=== PATIENT | female | born 1950 | race American Indian/Alaskan Native ===

== ENCOUNTER → 2018-07-23 17:12 | Outpatient (REF) | payer OTHER, SELFPAY ==
[2018-07-23 21:15] LABS: Abs Immature Grans 0.03 k/cumm (0.0-0.09); Absolute Basophil Count 0.03 k/cumm (0.0-0.2); Absolute Eosinophil Count 0.24 k/cumm (0.0-0.7); Absolute Lymphocyte Count 3.49 k/cumm (1.2-3.4); Absolute Monocyte Count 1.24 k/cumm (0.11-0.7); Basophils % 0.2; Eosinophils % 1.9; HCT 37.8 % (36.0-46.0); HGB 12.8 g/dL (12.0-15.5); Immature Grans % 0.2; Lymphocytes % 27.2; Mean Corp. HGB Concentration 33.9 g/dL (32.0-36.0); Mean Corpuscular Hemoglobin 33.6 pg (27.0-33.0); Mean Corpuscular Volume 99.2 fL (80-95); Mean Platelet Volume 10.4 fL (8.0-11.0); Monocytes % 9.7; Neutrophils % 60.8; Platelet Count 291 x1000/uL (130-400); RBC 3.81 m/cumm (4.00-5.20); RBC Distribution Width 13.1 % (11.7-14.6); White Blood Cell Count 12.83 k/cumm (4.4-10.8)
== END ==
LOC: NCHCN 17:12
PROVIDERS: PCP Physician Assistant Medical; Visit Provider Physician Assistant Medical
DX: D64.9 Anemia, unspecified (principal)
CPT/HCPCS: 85025

== ENCOUNTER 2019-01-10 18:40 | Outpatient (REF) | payer OTHER, SELFPAY ==
[2019-01-10 21:21] LABS: Abs Immature Grans 0.02 k/cumm (0.0-0.09); Absolute Basophil Count 0.03 k/cumm (0.0-0.2); Absolute Eosinophil Count 0.28 k/cumm (0.0-0.7); Absolute Lymphocyte Count 2.75 k/cumm (1.2-3.4); Absolute Monocyte Count 0.81 k/cumm (0.11-0.7); Absolute Neutrophil Count 4.48 k/cumm (1.2-6.7); Basophils % 0.4; Eosinophils % 3.3; HCT 39.1 % (36.0-46.0); HGB 12.8 g/dL (12.0-15.5); Immature Grans % 0.2; Lymphocytes % 32.9; Mean Corp. HGB Concentration 32.7 g/dL (32.0-36.0); Mean Corpuscular Hemoglobin 33.4 pg (27.0-33.0); Mean Corpuscular Volume 102.1 fL (80-95); Mean Platelet Volume 10.3 fL (8.0-11.0); Monocytes % 9.7; Neutrophils % 53.5; Platelet Count 294 x1000/uL (130-400); RBC 3.83 m/cumm (4.00-5.20); RBC Distribution Width 12.4 % (11.7-14.6); White Blood Cell Count 8.37 k/cumm (4.4-10.8)
[2019-01-10 21:47] LABS: ALT 22 U/L (12-78); Anion Gap 10.1 mmol/L (3-11); BUN 18 mg/dL (7-18); CO2 27.9 mmol/L (21.0-32.0); CREATININE 1.15 mg/dL (0.55-1.02); Calcium 9.8 mg/dL (8.5-10.1); Chloride 103 mmol/L (98-107); Estimated GFR 46.65 (mL/min/1.73m2); Glucose 94 mg/dL (70-100); HDL Cholesterol 61 mg/dL (40-60); LDL CHOLESTEROL 96 mg/dL (<100); Potassium 4.1 mmol/L (3.5-5.1); Sodium 141 mmol/L (136-145); TSH 2.63 uIU/mL (0.358-3.74)
[2019-01-10 22:02] LABS: Creatine Kinase 91 U/L (26-192)
== END 2019-01-10 19:00 ==
LOC: NCHCN 18:40
PROVIDERS: PCP Physician Assistant Medical; Visit Provider Nurse Practitioner Family
DX: E03.9 Hypothyroidism, unspecified (principal); E78.5 Hyperlipidemia, unspecified; I73.9 Peripheral vascular disease, unspecified
CPT/HCPCS: 80048; 82550; 83721; 83718; 84443; 84460; 85025

== ENCOUNTER 2019-01-29 01:12 | Outpatient (CLI) | payer OTHER, SELFPAY ==
--- NOTE | 2019-01-29 11:21 | DI.CTLCSR_ITS ---
SYMPTOM/DIAGNOSIS: SCREENING, FORMER SMOKER, Z12.[address]: There are no prior comparison exams. Mild underlying emphysematous and fibrotic changes are seen. There is linear atelectasis in the right middle lobe. No pulmonary nodules, infiltrates or effusions are seen. There is mitral valve calcification, aortic calcification as well as coronary artery calcification. The aorta is normal in diameter. The heart size is normal. No adenopathy is seen. There are left upper rib deformities. No suspicious bony abnormalities are seen. The visualized portions of the upper abdomen show previous cholecystectomy. There is suture material near the fundus of the stomach. IMPRESSION: Lung rads, Category 1. Continued annual low dose screening CT is recommended.
== END 2019-01-29 01:32 ==
PROVIDERS: PCP Nurse Practitioner Family; Visit Provider Nurse Practitioner Family
DX: Z12.2 Encounter for screening for malignant neoplasm of respiratory organs (principal); J98.11 Atelectasis; Z87.891 Personal history of nicotine dependence
CPT/HCPCS: G0297

== ENCOUNTER 2019-02-04 03:09 | Outpatient (CLI) | payer OTHER, SELFPAY ==
[2019-02-04] MEDS: Albuterol HFA 18 GM 200 PUFF INH IH (15:00)
[2019-02-04] MEDS: Inhaler, Assist Device 1 EACH MC (15:00)
--- NOTE | 2019-02-04 15:00 | PFT_ITS ---
DATE OF SERVICE: 02/04/19 REQUESTING PROVIDER: Vanita Churchill N.P. Spirometry shows mild obstructive airways disease with no significant bronchodilator response. Lung volumes show no evidence of restriction. Diffusion capacity normal. Airways resistance normal. IMPRESSION: Mild obstructive airways disease with no significant bronchodilator response. Clinical correlation recommended.
== END 2019-02-04 03:29 ==
PROVIDERS: PCP Nurse Practitioner Family; Visit Provider Nurse Practitioner Family
DX: J44.9 Chronic obstructive pulmonary disease, unspecified (principal)
CPT/HCPCS: 94060; 94150; 94726; 94729

== ENCOUNTER 2019-04-02 11:16 | Outpatient (CLI) | payer OTHER, SELFPAY ==
--- NOTE | 2019-04-02 12:10 | DI.MAMMO_ITS ---
SYMPTOM/DIAGNOSIS: SCREENING, Z12.39 MAMMOGRAMS: Mammograms were interpreted according to the usual protocol including computer analysis with CAD system, tomosynthesis and C view imaging. Comparison is with the prior examinations. No suspicious masses or microcalcifications are seen. There is no definite evidence of malignancy. IMPRESSION: Negative mammogram. Routine screening is recommended. Category 1, breast density B. MQSA ASSESSMENT OF FINDINGS: Negative. Category 1. Patient will receive a letter notifying them of these results. BI-RADS category B. There are scattered areas of fibroglandular density.
== END 2019-04-02 11:36 ==
PROVIDERS: PCP Nurse Practitioner Family; Visit Provider Nurse Practitioner Family
DX: Z12.31 Encounter for screening mammogram for malignant neoplasm of breast (principal)
CPT/HCPCS: 77063; 77067

== ENCOUNTER 2019-06-18 11:57 | Outpatient (REF) | payer OTHER, SELFPAY ==
[2019-06-18 22:04] LABS: ALT 33 U/L (12-78); AST 18 U/L (15-37); HDL Cholesterol 65 mg/dL (40-60); LDL CHOLESTEROL 65 mg/dL (<100)
[2019-06-18 22:17] LABS: Creatine Kinase 68 U/L (26-192)
== END 2019-06-18 12:17 ==
LOC: NCHCN 11:57
PROVIDERS: PCP Nurse Practitioner Family; Visit Provider Nurse Practitioner Family
DX: I65.23 Occlusion and stenosis of bilateral carotid arteries (principal); E78.5 Hyperlipidemia, unspecified
CPT/HCPCS: 82550; 83721; 83718; 84450; 84460

== ENCOUNTER 2019-10-15 14:45 | Outpatient (REF) | payer OTHER, SELFPAY ==
[2019-10-15 20:12] LABS: Abs Immature Grans 0.02 k/cumm (0.0-0.09); Absolute Basophil Count 0.02 k/cumm (0.0-0.2); Absolute Eosinophil Count 0.33 k/cumm (0.0-0.7); Absolute Lymphocyte Count 3.15 k/cumm (1.2-3.4); Absolute Monocyte Count 0.95 k/cumm (0.11-0.7); Basophils % 0.2; Eosinophils % 3.2; HCT 38.7 % (36.0-46.0); HGB 13.1 g/dL (12.0-15.5); Immature Grans % 0.2; Lymphocytes % 30.4; Mean Corp. HGB Concentration 33.9 g/dL (32.0-36.0); Mean Corpuscular Hemoglobin 33.4 pg (27.0-33.0); Mean Corpuscular Volume 98.7 fL (80-95); Mean Platelet Volume 10.2 fL (8.0-11.0); Monocytes % 9.2; Neutrophils % 56.8; Platelet Count 317 x1000/uL (130-400); RBC 3.92 m/cumm (4.00-5.20); RBC Distribution Width 12.3 % (11.7-14.6); White Blood Cell Count 10.37 k/cumm (4.4-10.8)
[2019-10-15 20:29] LABS: ALT 30 U/L (14-59); AST 20 U/L (15-37); Alkaline Phosphatase 70 U/L (46-116); Anion Gap 9.2 mmol/L (3-11); BUN 19 mg/dL (7-18); Bilirubin, Total 0.2 mg/dL (0.2-1.0); CO2 27.8 mmol/L (21.0-32.0); CREATININE 0.96 mg/dL (0.55-1.02); Calcium 9.2 mg/dL (8.5-10.1); Chloride 104 mmol/L (98-107); Estimated GFR 57.46 (mL/min/1.73m2); Glucose 115 mg/dL (74-106); Lipase 139 U/L (73-393); Potassium 4.3 mmol/L (3.5-5.1); Sodium 141 mmol/L (136-145); Total Protein 7.1 g/dL (6.4-8.2)
== END 2019-10-15 15:05 ==
LOC: NCHCN 14:45
PROVIDERS: PCP Nurse Practitioner Family; Visit Provider Nurse Practitioner Family
DX: R11.0 Nausea (principal); R10.9 Unspecified abdominal pain; R14.0 Abdominal distension (gaseous)
CPT/HCPCS: 80053; 83690; 85025

== ENCOUNTER 2019-10-16 07:53 | Outpatient (REF) | payer OTHER, SELFPAY ==
[2019-10-17 15:37] LABS: Helicobacter pylori Ag, Feces Negative (Negative)
== END 2019-10-16 08:13 ==
LOC: NCHCN 07:53
PROVIDERS: PCP Nurse Practitioner Family; Visit Provider Nurse Practitioner Family
DX: R14.0 Abdominal distension (gaseous) (principal); R10.9 Unspecified abdominal pain; R11.0 Nausea
CPT/HCPCS: 87338

== ENCOUNTER 2020-01-21 08:27 | Outpatient (REF) | payer OTHER, SELFPAY ==
[2020-01-21 19:46] LABS: TSH 1.82 uIU/mL (0.36-3.74)
== END 2020-01-21 08:47 ==
LOC: NCHCN 08:27
PROVIDERS: PCP Nurse Practitioner Family; Visit Provider Nurse Practitioner Family
DX: E03.9 Hypothyroidism, unspecified (principal)
CPT/HCPCS: 84443

== ENCOUNTER 2020-02-26 11:33 | Outpatient (CLI) | payer OTHER, SELFPAY ==
[2020-02-29 10:20] LABS: SARS-CoV-2 RNA Undetected (Undetected); SARS-CoV-2 Specimen Source Nasopharynx
== END 2020-02-26 11:53 ==
PROVIDERS: PCP Nurse Practitioner Family; Visit Provider Physician Assistant
DX: J06.9 Acute upper respiratory infection, unspecified (principal)
CPT/HCPCS: U0003

== ENCOUNTER 2020-05-07 11:22 | Outpatient (REF) | payer OTHER, SELFPAY ==
[2020-05-07 19:41] LABS: HCT 38.1 % (36.0-46.0); Mean Corp. HGB Concentration 34.1 g/dL (32.0-36.0); Mean Corpuscular Hemoglobin 33.7 pg (27.0-33.0); Mean Corpuscular Volume 98.7 fL (80-95); Mean Platelet Volume 10.1 fL (8.0-11.0); Platelet Count 296 x1000/uL (130-400); RBC 3.86 m/cumm (4.00-5.20); RBC Distribution Width 12.2 % (11.7-14.6); White Blood Cell Count 10.14 k/cumm (4.4-10.8)
[2020-05-07 20:20] LABS: ALT 35 U/L (14-59); AST 24 U/L (15-37); Alkaline Phosphatase 75 U/L (46-116); Anion Gap 8.7 mmol/L (3-11); BUN 21 mg/dL (7-18); Bilirubin, Total 0.5 mg/dL (0.2-1.0); CO2 27.3 mmol/L (21.0-32.0); CREATININE 1.16 mg/dL (0.55-1.02); Calcium 9.2 mg/dL (8.5-10.1); Chloride 104 mmol/L (98-107); Estimated GFR 46.05 (mL/min/1.73m2); Glucose 85 mg/dL (74-106); HDL Cholesterol 59 mg/dL (40-60); LDL CHOLESTEROL 68 mg/dL (<100); Potassium 4.5 mmol/L (3.5-5.1); Sodium 140 mmol/L (136-145); Total Protein 7.1 g/dL (6.4-8.2)
[2020-05-07 20:43] LABS: Creatine Kinase 59 U/L (26-192)
== END 2020-05-07 11:42 ==
LOC: NCHCN 11:22
PROVIDERS: PCP Nurse Practitioner Family; Visit Provider Nurse Practitioner Family
DX: E78.5 Hyperlipidemia, unspecified (principal); D64.9 Anemia, unspecified; I10 Essential (primary) hypertension
CPT/HCPCS: 80053; 82550; 83721; 85027; 83718

== ENCOUNTER 2020-05-12 00:18 | Outpatient (CLI) | payer OTHER, SELFPAY ==
--- NOTE | 2020-05-12 | DI.MRI_ITS ---
EXAM: MR LUMBAR SPINE WO CLINICAL HISTORY: WORSENING LUMBAR PAIN,M54.9 WITH RADICULOPATHY DOWN RT UPPER THIGH. TECHNIQUE: Multiplanar multisequence MRI of the Lumbar spine was performed. COMPARISON: CR CHEST 2 VIEWS PA,LAT from 03/21/2018 FINDINGS: Bones: The last intervertebral disc space is designated the L5/S1 level for the numbering purpose of this examination. The vertebral body heights are well maintained. Alignment is satisfactory. There is some red marrow reconversion. Cord: The conus tip ends at the T12 level. It is of normal size and signal intensity. T12-L1: No disc herniations or bulges are present. No central spinal canal or neural foraminal stenos is. L1-2: No disc herniations or bulges are present. No central spinal canal or neural foraminal stenosis . L2-3: No disc herniations or bulges are present. There are facet degenerative changes but no central spinal canal or neural foraminal stenosis. L3-4: There are broad-based disc osteophytes and degenerative signal changes in the endplates. There are facet degenerative changes which combine with the degenerative disc changes to create mild to mo derate degree of central canal stenosis and moderate bilateral neural foraminal narrowing. L4-5: There is marked loss of disc height and prominent disc osteophytes. There are facet degenerati ve changes and ligamentous hypertrophy creating a moderate degree of central canal stenosis and moder ate bilateral neural foraminal narrowing. L5-S1: Moderate to severe loss of disc height, eccentric toward the right. There are disc osteophyte s eccentric toward the right causing severe right neural foraminal narrowing and moderate left neural foraminal narrowing. There are facet degenerative changes and ligamentous hypertrophy causing mild central canal stenosis.. No central spinal canal or neural foraminal stenosis. Soft tissues: The visualized SI joints and sacrum are well maintained. The paraspinal soft tissues ar e unremarkable. Sigmoid diverticulosis and renal cysts are noted. IMPRESSION: Degenerative disc changes and facet degenerative changes from L3-4 through L5-S1. No focal disc kolby iation. DATA REPOSITORY:
== END 2020-05-12 00:38 ==
PROVIDERS: PCP Nurse Practitioner Family; Visit Provider Nurse Practitioner Family
DX: M54.16 Radiculopathy, lumbar region (principal); M79.651 Pain in right thigh; M51.17 Intervertebral disc disorders with radiculopathy, lumbosacral region; M47.27 Other spondylosis with radiculopathy, lumbosacral region
CPT/HCPCS: 72148

== ENCOUNTER 2020-06-09 10:38 | Outpatient (REF) | payer OTHER, SELFPAY ==
[2020-06-09 20:40] LABS: Ferritin 175 ng/mL (8-252); Vitamin B12 750 pg/mL (193-986)
[2020-06-09 20:41] LABS: Folate > 20.0 ng/mL (8.6-20.0)
[2020-06-09 20:50] LABS: Iron 120 ug/dL (50-170); Total Iron Binding Capacity 263 ug/dL (250-450); Transferrin Sat 46 % (15-50)
== END 2020-06-09 10:58 ==
LOC: NCHCN 10:38
PROVIDERS: PCP Nurse Practitioner Family; Visit Provider Nurse Practitioner Family
DX: D64.9 Anemia, unspecified (principal)
CPT/HCPCS: 82607; 82728; 82746; 83540; 83550

== ENCOUNTER 2020-07-14 01:05 | Outpatient (CLI) | payer OTHER, SELFPAY ==
--- NOTE | 2020-07-14 | DI.MAMMO_ITS ---
EXAM: MAMMO SCREENING CLINICAL HISTORY: SCREENING, Z12.39 TECHNIQUE: Mammograms were interpreted according to the usual protocol including computer analysis w [employer] CAD system, tomosynthesis and C-view imaging. COMPARISON: 2010 through 2019. FINDINGS: The breasts are composed of scattered fibroglandular densities, Breast Density category B. No suspicious masses or suspicious microcalcifications are seen. Vascular calcifications and coarse, benign calcifications are again noted. No skin thickening or abnormal axillary lymph nodes are seen. There has been no significant change from prior exams. IMPRESSION: BI-RADS Category 2 - Benign Findings Yearly screening mammography is recommended. Breast Density Category B, scattered fibroglandular densities. A negative radiographic report should not delay biopsy if a dominant or clinically suspicious mass is present. Up to ten percent of cancers are not identified on mammography. A negative report may reinforce clinical impression. Adenosis and dense breasts may obscure an underlying neoplasm. False positive reports average 6 to 10%. Patient will receive a letter notifying them of these results.
== END 2020-07-14 01:25 ==
PROVIDERS: PCP Nurse Practitioner Family; Visit Provider Nurse Practitioner Family
DX: Z12.31 Encounter for screening mammogram for malignant neoplasm of breast (principal); R92.1 Mammographic calcification found on diagnostic imaging of breast
CPT/HCPCS: 77063; 77067

== ENCOUNTER 2020-09-09 13:04 | Outpatient (REF) | payer OTHER, SELFPAY ==
[2020-09-11 17:48] LABS: COVID-19 RT-PCR Result NEGATIVE (Negative)
== END 2020-09-09 13:24 ==
LOC: NCHCN 13:04
PROVIDERS: PCP Nurse Practitioner Family; Visit Provider Nurse Practitioner Family
DX: J02.9 Acute pharyngitis, unspecified (principal); R05 Cough
CPT/HCPCS: U0003; 87081

== ENCOUNTER 2020-09-11 11:49 | Emergency (ER) | payer OTHER, SELFPAY ==
[2020-09-11] VITALS (26 sets, daily range): BP systolic 162–185; BP diastolic 70–96; PULSE 89–102; RESP 18–22; TEMP 36.5; O2SAT 93–100
[2020-09-11] MEDS: Normal Saline 1,000 ML 1000 ML IV (12:19)
[2020-09-11] MEDS: Normal Saline Flush 10 ML SYR IVP (12:20)
[2020-09-11 12:27] LABS: Abs Immature Grans 0.08 10^3/uL (0.0-0.06); Absolute Basophil Count 0.02 10^3/uL (0.0-0.2); Absolute Eosinophil Count 0.02 10^3/uL (0.0-0.7); Absolute Lymphocyte Count 1.56 10^3/uL (1.2-3.4); Absolute Monocyte Count 0.36 10^3/uL (0.1-0.8); Absolute Neutrophil Count 10.37 10^3/uL (1.2-6.7); Basophils % 0.2; Eosinophils % 0.2; HCT 40.6 % (36.0-46.0); HGB 13.9 g/dL (11.2-15.7); Immature Grans % 0.6; Lymphocytes % 12.6; MCH 32.6 pg (27.0-33.0); MCHC 34.2 % (32.0-36.0); MCV 95.3 fL (80-95); MPV 9.3 fL (8.0-11.0); Monocytes % 2.9; Neutrophils % 83.5; Nucleated RBC 0 %; Platelet Count 278 10^3/uL (130-400); RBC 4.26 10^6/uL (3.93-5.22); RDW 11.9 % (11.7-14.6); RDW-SD 41.4 fL; WBC 12.42 10^3/uL (4.4-10.8)
--- NOTE | 2020-09-11 12:30 | DI.RAD_ITS ---
EXAM: XR PORTABLE CHEST AP CLINICAL HISTORY: cough TECHNIQUE: 2D digital imaging was performed. COMPARISON: CR CHEST 2 VIEWS PA,LAT from 03/21/2018 FINDINGS: MEDIASTINUM: Normal. HEART: Normal. PULMONARY VASCULATURE: Normal. LUNGS: No focal consolidating infiltrates. Diffuse increased interstitial markings. These may refle ct diffuse chronic fibrosis. Interstitial edema or pneumonia cannot be excluded. PLEURAL SPACE: No pleural effusion or pneumothorax. BONE:Within normal limits for the patient's age. OTHER FINDINGS:Normal. IMPRESSION: Diffuse increased interstitial markings. This may be chronic fibrotic change. An acute interstitial edema or pneumonia cannot be excluded. Please correlate clinically. DATA REPOSITORY: RADIATION DOSE DELIVERED:
[2020-09-11 12:40] LABS: ALT 25 U/L (14-59); AST 23 U/L (15-37); Alkaline Phosphatase 83 U/L (46-116); BUN 13 mg/dL (7-18); Bilirubin, Total 0.7 mg/dL (0.2-1.0); Calcium 9.1 mg/dL (8.5-10.1); Chloride 100 mmol/L (98-107); Glucose 134 mg/dL (74-106); Lipase 73 U/L (73-393); Sodium 135 mmol/L (136-145)
[2020-09-11 13:07] LABS: Bilirubin Negative (Negative); Blood Small (Negative); Clarity Cloudy (Clear); Glucose Negative (Negative); Ketones Negative (Negative); Leukocyte Esterase Negative (Negative); Nitrite Negative (Negative); Specific Gravity 1.025 (1.005-1.025); Urobilinogen 0.2 EU/dL (Up TO 0.2)
[2020-09-11 13:23] LABS: Bacteria Few HPF (Negative); C & S Indicated? No; Crystals Few Amorphous HPF (Negative); Epithelial Cells Few HPF (Negative); Mucus Trace (Negative); RBC 0-2 HPF (0-2); WBC 0-2 HPF (0-5)
--- NOTE | 2020-09-11 14:01 | ED.GENADUL_ITS ---
Discharge Plan Disposition Patient Disposition: HOME Condition: Stable Discharge Details Clinical Impression: Pneumonia Primary Care Provider: Vanita Churchill ED Provider: Cricket Jolley Home Meds and New Rx's Prescriptions: New ondansetron HCl [Zofran] 4 mg tablet 4 mg PO Q8H PRNQty: 10 RF: 0 levofloxacin 750 mg tablet 750 mg PO DAILY Qty: 5 RF: 0 Continued bupropion HCl [Wellbutrin SR] 150 mg Tablet Sustained-Release 12 Hr 150 mg PO QAM RF: 0 citalopram [Celexa] 40 mg Tablet 40 mg PO DAILY RF: 0 ziprasidone HCl [Geodon] 20 mg Capsule 20 mg PO BID RF: 0 hydrocortisone 1 % Cream 1 applic TOPICAL BID PRNRF: 0 levothyroxine 50 mcg Tablet 50 mcg PO DAILY RF: 0 diphenhydramine HCl [Benadryl] 25 mg Capsule 25 mg PO TID PRNRF: 0 ferrous sulfate [iron] 325 mg (65 mg iron) Tablet 325 mg PO DAILY RF: 0 (DME) nebulizers Misc MISCELLANEOUS RF: 0 hydrochlorothiazide 25 mg Tablet 12.5 mg PO DAILY RF: 0 nystatin 100,000 unit/gram Powder 1 applic TOPICAL TID RF: 0 ezetimibe [Zetia] 10 mg Tablet 10 mg PO DAILY RF: 0 rosuvastatin 20 mg Tablet 20 mg PO HS RF: 0 Zyrtec 10 mg Capsule 10 mg PO DAILY RF: 0 diclofenac sodium 1 % gel 4 gm TP QID PRN (Reason: left hip pain) 6 Days Qty: 100 RF: 11 gabapentin 300 mg capsule 300 mg PO TID 90 Days Qty: 270 RF: 3 multivitamin [Daily Multi-Vitamin] 1 EACH tablet 1 tab PO DAILY RF: 0 aspirin 325 MG tablet 325 mg PO DAILY RF: 0 calcium carbonate-vitamin D3 1 EACH tablet 2 tab PO DAILY RF: 0 Refresh Tears 30 ML drops 2 drp OU BID RF: 0 nystatin 15 GM cream 1 ea Topical TID RF: 0 albuterol sulfate [Ventolin HFA] 200 PUFF HFA aerosol inhaler 2 puff Inhalation Q6H RF: 0 cholecalciferol (vitamin D3) [Vitamin D3] 400 UNIT tablet 1 tab PO DAILY RF: 0 folic acid 0.8 MG tablet 0.8 mg PO DAILY RF: 0 Flovent HFA 120 PUFF HFA aerosol inhaler 1 puff Inhalation BID RF: 0 acetaminophen 325 mg Tablet 650 mg PO PRN PRNRF: 0 benzonatate [Tessalon Perles] 100 mg capsule 100 mg PO TID PRNRF: 0 guaifenesin [Mucinex] 600 mg Tablet Extended Release 12hr 600 mg PO Q12H PRNRF: 0 Discharge Instructions Instructions: Pneumonia (ED) Additional Instructions: Levaquin and Zofran as directed. Plenty of fluids to avoid dehydration. [id number] medications as directed for symptomatic control. Please watch for new or worsening symptoms and return to the ER for any concerns. Please continue to quarantine until your Covid test has returned negative. I do recommend reaching out to your primary care provider later today or tomorrow for prompt outpatient reevaluation. Medical Decision Making 69-year-old female history of emphysema, former smoker, hypertension, arthritis, presents to the ER for dry cough, general fatigue, now starting with nausea, vomiting, concern of dehydration. Clinically she appears well, nontoxic. Is taking Tessalon Perles with minimal relief. Covid test pending. O2 sat 100% on room air. She is afebrile. Respirations 18. Given her age, comorbidities will obtain routine laboratory values, chest x-ray, give IV fluid and Zofran. Lungs are clear to auscultation although slightly diminished bases, no clear indication for breathing treatments. Laboratory values reveal a white blood cell count of 12.42 sodium 135 potassium 4.0, glucose 134. Urinalysis without signs of infection. X-ray read by radiology as diffuse increased interstitial markings. This may be chronic fibrotic change. An acute interstitial edema or pneumonia cannot be excluded. Please correlate clinically. Clinically with a cough for roughly 1 week, fatigue, now with nausea and vomiting, slightly elevated white count, I do believe that pneumonia is reasonable. Lower suspicion for acute interstitial edema. Discussed findings with patient and treatment options. She is agreeable to initiate antibiotic therapy and I will provide a antiemetic prescription. She has no additional questions or concerns and is comfortable with this plan. We did discuss the importance of returning to the ER for new or worsening symptoms, otherwise following up as an outpatient with her primary care provider. Covid test is still pending, will continue to quarantine Medical Records Medical records reviewed: Yes I reviewed the patient's medical records. Lab Data Lab results reviewed: Yes I reviewed the patient's lab results. Lab results narrative: Laboratory Tests Range/Units 09/11/20 09/11/20 09/11/20 12:05 12:05 12:55 WBC (4.4-10.8) 10^3/uL 12.42 H RBC (3.93-5.22) 10^6/uL 4.26 Hgb (11.2-15.7) g/dL 13.9 Hct (36.0-46.0) % 40.6 MCV (80-95) fL 95.3 H MCH (27.0-33.0) pg 32.6 MCHC (32.0-36.0) % 34.2 RDW (11.7-14.6) % 11.9 Plt Count (130-400) 10^3/uL 278 MPV (8.0-11.0) fL 9.3 Immature Gran % 0.6 Neutrophils % 83.5 Lymphocytes % 12.6 Monocytes % 2.9 Eosinophils % 0.2 Basophils % 0.2 Nucleated RBC % % 0 Absolute Neutrophils (1.2-6.7) 10^3/uL 10.37 H Absolute Lymphocytes (1.2-3.4) 10^3/uL 1.56 Absolute Monocytes (0.1-0.8) 10^3/uL 0.36 Absolute Eosinophils (0.0-0.7) 10^3/uL 0.02 Absolute Basophils (0.0-0.2) 10^3/uL 0.02 Sodium (136-145) mmol/L 135 L Potassium (3.5-5.1) mmol/L 4.0 Chloride (98-107) mmol/L 100 Carbon Dioxide (21.0-32.0) mmol/L 27.0 Anion Gap (3-11) mmol/L 8.0 BUN (7-18) mg/dL 13 Creatinine (0.55-1.02) mg/dL 0.90 Estimated GFR/1.73 m2 (mL/min/1.73m2) >= 60.00 Glucose (74-106) mg/dL 134 H Calcium (8.5-10.1) mg/dL 9.1 Total Bilirubin (0.2-1.0) mg/dL 0.7 AST (15-37) U/L 23 ALT (14-59) U/L 25 Alkaline Phosphatase (46-116) U/L 83 Total Protein (6.4-8.2) g/dL 8.0 Albumin (3.4-5.0) g/dL 4.0 Lipase (73-393) U/L 73 Urine Color (Yellow) Yellow Urine Clarity (Clear) Cloudy Urine pH (5-8) 6.0 Ur Specific [place] (1.005-1.025) 1.025 Urine Protein (Negative) mg/dL 100 H Urine Ketones (Negative) mg/dL Negative Urine Blood (Negative) Small H Urine Nitrite (Negative) Negative Urine Bilirubin (Negative) Negative Urine Urobilinogen (Up TO 0.2) EU/dL 0.2 Ur Leukocyte Esterase (Negative) Negative Urine RBC (0-2) HPF 0-2 Urine WBC (0-5) HPF 0-2 Ur Epithelial Cells (Negative) HPF Few Urine Crystals (Negative) HPF Few amorphous Urine Bacteria (Negative) HPF Few Urine Casts (Negative) LPF Comment Urine Mucus (Negative) Trace Ur Culture Indicated? No Urine Glucose (Negative) mg/dL Negative HPI General Mode of arrival: ambulatory . Date/Time Provider Initiated Documentation: 09/11/20 12:04 . Limitations to Documentation: no limitations . Information obtained by: patient . HPI Narrative: This is a 69-year-old female with past medical history that includes anemia, rheumatoid arthritis, emphysema, GERD, hypertension, former smoker, presenting to the ER for evaluation. She reports that she began with a dry cough nearly 1 week ago. Seen by her primary care provider, started on Tessalon Perles and tested for Covid. Those test results are still pending. She reports that she feels as though her symptoms overall are getting slightly worse and now include a mild dull global headache, nausea, dry heaves. She feels generalized weakness-fatigue and is concerned about dehydration. She denies recent trauma. Denies neck pain, sore throat, chest pain, productive cough, shortness of breath, abdominal pain, change in bowel or bladder function. Related Data Home Medications Medication Instructions Recorded Confirmed Refresh Tears 2 drp OU BID 03/21/14 09/11/20 albuterol sulfate [Ventolin HFA] 2 puff INHALATION Q6H 03/21/14 09/11/20 aspirin 325 mg PO DAILY 03/21/14 09/11/20 calcium carbonate-vitamin D3 2 tab PO DAILY 03/21/14 09/11/20 cholecalciferol (vitamin D3) 1 tab PO DAILY 03/21/14 09/11/20 [Vitamin D3] folic acid 0.8 mg PO DAILY 03/21/14 09/11/20 multivitamin [Daily Multi-Vitamin] 1 tab PO DAILY 03/21/14 09/11/20 nystatin 1 ea TOPICAL TID 03/21/14 09/11/20 Flovent HFA 1 puff INHALATION BID 03/21/18 09/11/20 Zyrtec 10 mg PO DAILY 05/20/20 09/11/20 bupropion HCl [Wellbutrin SR] 150 mg PO QAM 05/20/20 09/11/20 citalopram [Celexa] 40 mg PO DAILY 05/20/20 09/11/20 diphenhydramine HCl [Benadryl] 25 mg PO TID PRN 05/20/20 09/11/20 ezetimibe [Zetia] 10 mg PO DAILY 05/20/20 09/11/20 ferrous sulfate [iron] 325 mg PO DAILY 05/20/20 09/11/20 hydrochlorothiazide 12.5 mg PO DAILY 05/20/20 09/11/20 hydrocortisone 1 applic TOPICAL BID PRN 05/20/20 09/11/20 levothyroxine 50 mcg PO DAILY 05/20/20 09/11/20 nebulizers 05/20/20 05/20/20 nystatin 1 applic TOPICAL TID 05/20/20 09/11/20 rosuvastatin 20 mg PO HS 05/20/20 09/11/20 ziprasidone HCl [Geodon] 20 mg PO BID 05/20/20 09/11/20 diclofenac sodium 1 % topical gel 4 gm TP QID PRN 6 Days #100 gm 05/28/20 09/11/20 gabapentin 300 mg capsule 300 mg PO TID 90 Days #270 cap 05/28/20 09/11/20 acetaminophen 650 mg PO PRN PRN 09/11/20 09/11/20 benzonatate [Tessalon Perles] 100 mg PO TID PRN 09/11/20 09/11/20 guaifenesin [Mucinex] 600 mg PO Q12H PRN 09/11/20 09/11/20 levofloxacin 750 mg PO DAILY #5 tab 09/11/20 ondansetron HCl [Zofran] 4 mg PO Q8H PRN #10 tab 09/11/20 Previous Rx's Medication Instructions Recorded diclofenac sodium 1 % topical gel 4 gm TP QID PRN 6 Days #100 gm 05/28/20 gabapentin 300 mg capsule 300 mg PO TID 90 Days #270 cap 05/28/20 levofloxacin 750 mg PO DAILY #5 tab 09/11/20 ondansetron HCl [Zofran] 4 mg PO Q8H PRN #10 tab 09/11/20 Allergies Allergy/AdvReac Type Severity Reaction Status Date / Time cocoa butter Allergy Intermediate Unverified 09/11/20 11:59 [From Preparation H] glycerin [From Preparation H] Allergy Intermediate Unverified 09/11/20 11:59 latex Allergy Intermediate Skin Rash Unverified 09/11/20 11:59 lisinopril Allergy Intermediate Unverified 09/11/20 11:59 mineral oil* Allergy Intermediate Unverified 09/11/20 11:59 [From Preparation H] petrolatum,white Allergy Intermediate Unverified 09/11/20 11:59 [From Preparation H] phenylephrine Allergy Intermediate Unverified 09/11/20 11:59 [From Preparation H] shark liver oil Allergy Intermediate Unverified 09/11/20 11:59 [From Preparation H] bismuth subsalicylate Allergy Mild Unverified 09/11/20 11:59 [From Kaopectate (bismuth subsalicy)] General Stated Complaint: GenMedical BLAIR: 3 Review of Systems Constitutional Constitutional: Denies fatigue, Denies fever(s) and Reports headache(s) Eyes Eyes: Denies eye discharge ENT Ears, Nose, Mouth, and Throat: Denies otalgia, Reports headache(s) and Denies sore throat Cardiovascular Cardiovascular: Denies chest pain and Denies dyspnea Respiratory Respiratory: Reports cough and Denies dyspnea Gastrointestinal Gastrointestinal: Denies abdominal pain, Reports nausea and Reports vomiting Genitourinary Genitourinary: Denies dysuria Musculoskeletal Musculoskeletal: Denies back pain Integumentary/Breasts Skin/Breast: Denies rash Neurologic Neurologic: Reports headache(s) Endocrine Endocrine: Denies fatigue [facility] Medical History Anemia Arthritis, rheumatoid Back pain Bilateral carotid artery stenosis Cervical radiculopathy Cervicalgia Claudication Cough Depression Elevated creatine kinase level Emphysema of lung GERD (gastroesophageal reflux disease) Heart murmur Hematuria Hemorrhoids History of paroxysmal supraventricular tachycardia History of tobacco use Hyperlipidemia Hypertension Hypothyroidism IBS (irritable bowel syndrome) Macular degeneration Obesity CHEMA (obstructive sleep apnea) Polyarthralgia Right bundle branch block Trochanteric bursitis of left hip Vertigo benign, postural Surgical History Status post insertion of iliac artery stent Social History Smoking/Tobacco Use Status: Former Tobacco Use Alcohol Intake: current Alcohol Intake frequency: holidays/special occasions only Drug use: Never Substance use type: does not use Household members: children Housing: house Number of Children: 2 number of grandchildren: 4 current occupation: [employer] What type of physical activity do you participate in: independent ambulation and bicycling Do you feel safe at home: Yes Do you feel safe in your relationship?: Yes Exam Const General: cooperative, healthy appearing, comfortable and no acute distress Orientation: alert, awake and oriented x3 HENMT Head: normal to inspection, normocephalic and atraumatic Ears: external ears normal, TM's normal bilaterally and EAC's normal Face and sinus: normal facial exam Mouth: moist mucous membranes Throat: posterior oropharynx normal Eyes Conjunctivae: conjunctivae normal Sclera: sclerae normal Neck Neck: normal visual inspection, full ROM, no lymphadenopathy, no meningeal signs, trachea midline, supple and nontender Resp Effort & Inspection: normal respiratory effort and able to speak in complete sentences Auscultation: diminished lung sounds bilaterally in the lower lung humphries (Minimally) Cardio Rate: regular rate Rhythm: regular rhythm GI Palpation: soft and nontender Back/Spine/Pelvis Back: No back tenderness Skin General skin exam: no rashes or lesions noted Neuro General: patient alert, patient awake, patient oriented x3, moves all extremities and no focal motor deficits Cognition: normal cognition Speech: speech normal Gait: normal gait Motor: muscle tone normal throughout Sensory Exam: no sensory deficits noted Extrem General: normal to inspection, full ROM, capillary refill normal, no pedal edema and no calf tenderness Psych Appearance: grossly normal Mental Status: mental status grossly normal Course Vital Signs Vital signs: Vital Signs Temperature 36.5 C 09/11/20 11:55 Pulse 95 H 09/11/20 11:55 Respiratory Rate 22 09/11/20 11:55 Blood Pressure 184/96 H 09/11/20 11:55 Pulse Oximetry 100 09/11/20 11:55 Temperature 36.5 C 09/11/20 11:55 Temperature Source Temporal Artery Scan 09/11/20 11:55 Pulse 95 H 09/11/20 11:55 Respiratory Rate 22 09/11/20 11:55 Respiratory Effort Non-Labored 09/11/20 11:59 Blood Pressure 184/96 H 09/11/20 11:55 Blood Pressure Position Sitting 09/11/20 11:55 Pulse Oximetry 100 09/11/20 11:55 Oxygen Delivery Method Room Air 09/11/20 11:55 Oxygen Flow Rate 0 09/11/20 11:55 Pain Level 6 09/11/20 11:55 Lab/Test Results Lab/Test Results: Laboratory Tests Range/Units 09/11/20 09/11/20 09/11/20 12:05 12:05 12:55 WBC (4.4-10.8) 10^3/uL 12.42 H RBC (3.93-5.22) 10^6/uL 4.26 Hgb (11.2-15.7) g/dL 13.9 Hct (36.0-46.0) % 40.6 MCV (80-95) fL 95.3 H MCH (27.0-33.0) pg 32.6 MCHC (32.0-36.0) % 34.2 RDW (11.7-14.6) % 11.9 Plt Count (130-400) 10^3/uL 278 MPV (8.0-11.0) fL 9.3 Immature Gran % 0.6 Neutrophils % 83.5 Lymphocytes % 12.6 Monocytes % 2.9 Eosinophils % 0.2 Basophils % 0.2 Nucleated RBC % % 0 Absolute Neutrophils (1.2-6.7) 10^3/uL 10.37 H Absolute Lymphocytes (1.2-3.4) 10^3/uL 1.56 Absolute Monocytes (0.1-0.8) 10^3/uL 0.36 Absolute Eosinophils (0.0-0.7) 10^3/uL 0.02 Absolute Basophils (0.0-0.2) 10^3/uL 0.02 Sodium (136-145) mmol/L 135 L Potassium (3.5-5.1) mmol/L 4.0 Chloride (98-107) mmol/L 100 Carbon Dioxide (21.0-32.0) mmol/L 27.0 Anion Gap (3-11) mmol/L 8.0 BUN (7-18) mg/dL 13 Creatinine (0.55-1.02) mg/dL 0.90 Estimated GFR/1.73 m2 (mL/min/1.73m2) >= 60.00 Glucose (74-106) mg/dL 134 H Calcium (8.5-10.1) mg/dL 9.1 Total Bilirubin (0.2-1.0) mg/dL 0.7 AST (15-37) U/L 23 ALT (14-59) U/L 25 Alkaline Phosphatase (46-116) U/L 83 Total Protein (6.4-8.2) g/dL 8.0 Albumin (3.4-5.0) g/dL 4.0 Lipase (73-393) U/L 73 Urine Color (Yellow) Yellow Urine Clarity (Clear) Cloudy Urine pH (5-8) 6.0 Ur Specific [place] (1.005-1.025) 1.025 Urine Protein (Negative) mg/dL 100 H Urine Ketones (Negative) mg/dL Negative Urine Blood (Negative) Small H Urine Nitrite (Negative) Negative Urine Bilirubin (Negative) Negative Urine Urobilinogen (Up TO 0.2) EU/dL 0.2 Ur Leukocyte Esterase (Negative) Negative Urine RBC (0-2) HPF 0-2 Urine WBC (0-5) HPF 0-2 Ur Epithelial Cells (Negative) HPF Few Urine Crystals (Negative) HPF Few amorphous Urine Bacteria (Negative) HPF Few Urine Casts (Negative) LPF Comment Urine Mucus (Negative) Trace Ur Culture Indicated? No Urine Glucose (Negative) mg/dL Negative
== END 2020-09-11 15:00 | disposition home or self-care (01) ==
LOC: ER 14:49
PROVIDERS: Emergency Provider Physician Assistant; PCP Nurse Practitioner Family
DX: J18.8 Other pneumonia, unspecified organism (principal); R53.83 Other fatigue; R11.2 Nausea with vomiting, unspecified; J43.9 Emphysema, unspecified; I10 Essential (primary) hypertension; Z87.891 Personal history of nicotine dependence
CPT/HCPCS: 36415; 80053; 83690; 96360; 96361; 99284; 71045; 81003; 81015; 85025; 99285

== ENCOUNTER 2020-09-21 14:39 | Emergency (ER) | payer OTHER, SELFPAY ==
--- NOTE | 2020-09-21 14:44 | W.ED.GENAD ---
Discharge Plan Disposition Patient Disposition: HOME Condition: Stable Discharge Details Clinical Impression: Leg pain Primary Care Provider: Vanita Churchill ED Provider: Cricket Jolley Home Meds and New Rx's Prescriptions: Continued bupropion HCl [Wellbutrin SR] 150 mg Tablet Sustained-Release 12 Hr 150 mg PO QAM RF: 0 citalopram [Celexa] 40 mg Tablet 40 mg PO DAILY RF: 0 ziprasidone HCl [Geodon] 20 mg Capsule 20 mg PO BID RF: 0 hydrocortisone 1 % Cream 1 applic TOPICAL BID PRNRF: 0 levothyroxine 50 mcg Tablet 50 mcg PO DAILY RF: 0 diphenhydramine HCl [Benadryl] 25 mg Capsule 50 mg PO HS RF: 0 ferrous sulfate [iron] 325 mg (65 mg iron) Tablet 28 mg PO DAILY RF: 0 (DME) nebulizers Misc MISCELLANEOUS RF: 0 hydrochlorothiazide 25 mg Tablet 12.5 mg PO DAILY RF: 0 nystatin 100,000 unit/gram Powder 1 applic TOPICAL TID RF: 0 ezetimibe [Zetia] 10 mg Tablet 10 mg PO HS RF: 0 rosuvastatin 20 mg Tablet 20 mg PO HS RF: 0 Zyrtec 10 mg Capsule 10 mg PO DAILY RF: 0 diclofenac sodium 1 % gel 4 gm TP QID PRN (Reason: left hip pain) 6 Days Qty: 100 RF: 11 gabapentin 300 mg capsule 300 mg PO TID 90 Days Qty: 270 RF: 3 multivitamin [Daily Multi-Vitamin] 1 EACH tablet 1 tab PO DAILY RF: 0 aspirin 325 MG tablet 325 mg PO DAILY RF: 0 calcium carbonate-vitamin D3 1 EACH tablet 2 tab PO DAILY RF: 0 Refresh Tears 30 ML drops 2 drp OU BID RF: 0 nystatin 15 GM cream 1 ea Topical TID RF: 0 cholecalciferol (vitamin D3) [Vitamin D3] 400 UNIT tablet 2,000 unit PO DAILY RF: 0 folic acid 0.8 MG tablet 0.8 mg PO DAILY RF: 0 Fortifeye 1 tab PO DAILY RF: 0 [id number]-puzjiu [id number] mg Capsule 1 cap PO BID RF: 0 albuterol sulfate [ProAir HFA] 90 mcg/actuation Hfa Aerosol Inhaler 2 puff INHALATION PRN PRNRF: 0 Flovent HFA 120 PUFF HFA aerosol inhaler 1 puff Inhalation BID RF: 0 acetaminophen 325 mg Tablet 650 mg PO HS RF: 0 benzonatate [Tessalon Perles] 100 mg capsule 100 mg PO TID PRNRF: 0 guaifenesin [Mucinex] 600 mg Tablet Extended Release 12hr 600 mg PO Q12H PRNRF: 0 Discharge Instructions Instructions: Leg Pain (ED) Additional Instructions: Pulses here in the ER are normal. There are no signs of infection clinically. Ultrasound is negative. As we discussed, please watch for new or worsening symptoms and return to the ER for any concerns. Wear Basim wrapping as needed, advance activity as tolerated. Rest, elevate, cool and/or warm compresses every 2 hours for 20 minutes. Gentle stretching as tolerated. Please watch for new or worsening symptoms and return to the ER for any concerns. I do recommend that you reach out to both your primary care provider and your vascular doctor in the next 24 hours for prompt outpatient reevaluation. Further testing may be required to investigate your symptoms, eventual referral to orthopedics may be necessary. Stand Alone Forms: Work Release Discharge Data Discharge Date/Time-TO BE ENTERED AT DEPARTURE: 09/21/20 16:17 Medical Decision Making 69-year-old female with history of peripheral vascular disease, former smoker, claudication, status post iliac stents, presents with right posterior knee throbbing over the past day. Pain is without any obvious known trauma. Clinically patient appears well, nontoxic. Blood pressure 147/70 pulse in the 80s, afebrile, O2 sat 98% on room air. She does have mild posterior right leg discomfort so she was a mild positive Homans' sign. Differential includes but not excluded to King's cyst, worsening PVD, arterial occlusion, DVT, musculoskeletal strain, etc. Clinically low suspicion for arterial occlusion. Discussed options with patient and her daughter. Will obtain ultrasound of the right lower extremity for further evaluation of potential King's cyst and/or DVT. At this time will hold off on any laboratory values as I do not believe that blood work will change the outcome of her visit. She does understand that if she has a DVT she will likely need to have laboratories drawn Ultrasound of right leg read by radiology is unremarkable. I discussed ultrasound findings with patient. She is relieved. As above, she has a femoral and distal pedis pulse. There is no temperature discrepancy. Normal capillary refill. There is no erythema, warmth, swelling. Clinically this certainly appears as though it could be musculoskeletal in nature. Clinical picture is not consistent with acute occlusion. We discussed conservative options, will wrap the knee in an Basim wrap, she will use umap-[id number] medications for symptomatic control, rest, elevate, cool and/or warm compresses. She will contact both her primary care provider and vascular team tomorrow for prompt outpatient reevaluation. Given the normal ultrasound will not obtain any blood work. I did speak with the patient's daughter who was made aware of the work-up and disposition here in the ER. She has no additional questions or concerns and is comfortable picking her up in her current condition. They were encouraged to return to the ER for new or worsening symptoms. Medical Records Medical records reviewed: Yes I reviewed the patient's medical records. Imaging Data Radiologic Study: Attestation: I personally reviewed and interpreted this imaging study as follows: Imaging: Ultrasound Radiologist's impression: Right lower extremity, negative per radiology HPI General Mode of arrival: ambulatory. Date/Time Provider Initiated Documentation: 09/21/20 14:40. Limitations to Documentation: no limitations. Information obtained by: patient and family. HPI Narrative: This is a 69-year-old female with past medical history that includes anemia, rheumatoid arthritis, bilateral carotid artery stenosis, claudication, heart murmur, hypertension, status post iliac artery stents, former smoker, presenting to the ER reporting a moderate throbbing pain in the back of her right lower leg. It is worse behind the knee but does extend lower toward the ankle. She denies any trauma. The pain began yesterday and has been constant ever since. Triage note reports a history of blood clots the patient denies any history of DVT or PE. She reports that she has a vascular disease resulting in plaques. She takes an aspirin daily but is not otherwise anticoagulated. She has no other concerns or complaints at this time. Denies recent illness or trauma. Denies headache, chest pain, shortness of breath, abdominal pain, nausea, vomiting, numbness, tingling, weakness. Patient's daughter is present. They contacted their primary care provider and were then instructed to come to the ER. Patient's daughter needs to leave the ER to take care of something but does request that we personally call her and make her updated on her mother's work-up. Related Data Home Medications Medication Instructions Recorded Confirmed Refresh Tears 2 drp OU BID 03/21/14 09/21/20 aspirin 325 mg PO DAILY 03/21/14 09/21/20 calcium carbonate-vitamin D3 2 tab PO DAILY 03/21/14 09/21/20 cholecalciferol (vitamin D3) 2,000 unit PO DAILY 03/21/14 09/21/20 [Vitamin D3] folic acid 0.8 mg PO DAILY 03/21/14 09/21/20 multivitamin [Daily Multi-Vitamin] 1 tab PO DAILY 03/21/14 09/21/20 nystatin 1 ea TOPICAL TID 03/21/14 09/21/20 Flovent HFA 1 puff INHALATION BID 03/21/18 09/21/20 Zyrtec 10 mg PO DAILY 05/20/20 09/21/20 bupropion HCl [Wellbutrin SR] 150 mg PO QAM 05/20/20 09/21/20 citalopram [Celexa] 40 mg PO DAILY 05/20/20 09/21/20 diphenhydramine HCl [Benadryl] 50 mg PO HS 05/20/20 09/21/20 ezetimibe [Zetia] 10 mg PO HS 05/20/20 09/21/20 ferrous sulfate [iron] 28 mg PO DAILY 05/20/20 09/21/20 hydrochlorothiazide 12.5 mg PO DAILY 05/20/20 09/21/20 hydrocortisone 1 applic TOPICAL BID PRN 05/20/20 09/21/20 levothyroxine 50 mcg PO DAILY 05/20/20 09/21/20 nebulizers 05/20/20 05/20/20 nystatin 1 applic TOPICAL TID 05/20/20 09/21/20 rosuvastatin 20 mg PO HS 05/20/20 09/21/20 ziprasidone HCl [Geodon] 20 mg PO BID 05/20/20 09/21/20 diclofenac sodium 1 % topical gel 4 gm TP QID PRN 6 Days #100 gm 05/28/20 09/21/20 gabapentin 300 mg capsule 300 mg PO TID 90 Days #270 cap 05/28/20 09/21/20 acetaminophen 650 mg PO HS 09/11/20 09/21/20 benzonatate [Tessalon Perles] 100 mg PO TID PRN 09/11/20 09/21/20 guaifenesin [Mucinex] 600 mg PO Q12H PRN 09/11/20 09/21/20 Fortifeye 1 tab PO DAILY 09/21/20 albuterol sulfate [ProAir HFA] 2 puff INHALATION PRN PRN 09/21/20 09/21/20 [id number]-[id number]-[id number] 1 cap PO BID 09/21/20 09/21/20 Previous Rx's Medication Instructions Recorded diclofenac sodium 1 % topical gel 4 gm TP QID PRN 6 Days #100 gm 05/28/20 gabapentin 300 mg capsule 300 mg PO TID 90 Days #270 cap 05/28/20 Allergies Allergy/AdvReac Type Severity Reaction Status Date / Time cocoa butter Allergy Intermediate Unverified 09/21/20 14:51 [From Preparation H] glycerin [From Preparation H] Allergy Intermediate Unverified 09/21/20 14:51 latex Allergy Intermediate Skin Rash Unverified 09/21/20 14:51 lisinopril Allergy Intermediate Unverified 09/21/20 14:51 mineral oil* Allergy Intermediate Unverified 09/21/20 14:51 [From Preparation H] petrolatum,white Allergy Intermediate Unverified 09/21/20 14:51 [From Preparation H] phenylephrine Allergy Intermediate Unverified 09/21/20 14:51 [From Preparation H] shark liver oil Allergy Intermediate Unverified 09/21/20 14:51 [From Preparation H] bismuth subsalicylate Allergy Mild Unverified 09/21/20 14:51 [From Kaopectate (bismuth subsalicy)] General BLAIR: 3 Review of Systems Constitutional Constitutional: Denies fever(s), Denies headache(s) and Denies weakness ENT Ears, Nose, Mouth, and Throat: Denies headache(s) Cardiovascular Cardiovascular: Denies chest pain and Denies dyspnea Respiratory Respiratory: Denies cough and Denies dyspnea Gastrointestinal Gastrointestinal: Denies abdominal pain, Denies nausea and Denies vomiting Musculoskeletal Musculoskeletal: Reports back pain (Chronic), Denies numbness and Denies tingling Integumentary/Breasts Skin/Breast: Denies rash Neurologic Neurologic: Denies headache(s), Denies numbness, Denies tingling and Denies weakness Hematologic/Lymphatic Hematologic/Lymphatic: Denies easy bleeding and Denies easy bruising [facility] Medical History Anemia Arthritis, rheumatoid Back pain Bilateral carotid artery stenosis Cervical radiculopathy Cervicalgia Claudication Cough Depression Elevated creatine kinase level Emphysema of lung GERD (gastroesophageal reflux disease) Heart murmur Hematuria Hemorrhoids History of paroxysmal supraventricular tachycardia History of tobacco use Hyperlipidemia Hypertension Hypothyroidism IBS (irritable bowel syndrome) Macular degeneration Obesity CHEMA (obstructive sleep apnea) Polyarthralgia Right bundle branch block Trochanteric bursitis of left hip Vertigo benign, postural Surgical History Status post insertion of iliac artery stent Social History Smoking/Tobacco Use Status: Former Tobacco Use Smoking risk assessment performed?: Yes Alcohol Intake: current Alcohol Intake frequency: holidays/special occasions only Drug use: Never Substance use type: does not use Household members: children Housing: house Number of Children: 2 number of grandchildren: 4 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 What type of physical activity do you participate in: independent ambulation and bicycling Do you feel safe at home: Yes Do you feel safe in your relationship?: Yes Additional Social history: quit smoking 24 yrs ago Exam Const General: cooperative, healthy appearing, comfortable and no acute distress Orientation: alert, awake and oriented x3 HENMT Head: normal to inspection, normocephalic and atraumatic Mouth: moist mucous membranes Eyes Conjunctivae: conjunctivae normal Sclera: sclerae normal Neck Neck: normal visual inspection, full ROM, trachea midline and supple Resp Effort & Inspection: normal respiratory effort and able to speak in complete sentences Auscultation: clear to auscultation bilaterally Cardio Rate: regular rate Rhythm: regular rhythm Heart Sounds: murmur GI Palpation: soft and nontender Back/Spine/Pelvis Back: back tenderness (Diffuse mild lower) Skin General skin exam: no rashes or lesions noted Neuro General: patient alert, patient awake, patient oriented x3, moves all extremities and no focal motor deficits Cognition: normal cognition Speech: speech normal Gait: antalgic (Slightly) Motor: muscle tone normal throughout Sensory Exam: no sensory deficits noted Extrem General: normal to inspection, full ROM, capillary refill normal, no pedal edema and calf tenderness on the right (Positive Homans' sign, mild) Right upper extremity: normal to inspection, full ROM and normal capillary refill Left upper extremity: normal to inspection, full ROM and normal capillary refill Right lower extremity: normal to inspection, full ROM, normal capillary refill and knee Details: normal to inspection, tenderness (Diffuse mild posterior) and normal ROM Left lower extremity: normal to inspection, full ROM and normal capillary refill Other: Bilateral 1+ femoral and dorsal pedal pulses. Bilateral normal capillary refill. Psych Appearance: grossly normal Mental Status: mental status grossly normal
[2020-09-21 14:45] VITALS: BP 147/70; PULSE 80; RESP 16; TEMP 36.5; O2SAT 98
--- NOTE | 2020-09-21 14:45 | DI.US_ITS ---
EXAM: US LOWER EXTREMITY VENOUS RT CLINICAL HISTORY: pain, no injury. Hx of dvt. TECHNIQUE: Ultrasound performed using standard protocol. COMPARISON: US Venous from 07/12/2010 FINDINGS: Duplex venous ultrasound was performed according to the usual protocol. The deep veins are freely com pressible throughout and there is normal flow augmentation with manual calf compression. 2D and Doppl er evaluation are unremarkable. IMPRESSION: No evidence of deep venous thrombosis of the right lower extremity. DATA REPOSITORY:
[2020-09-21] MEDS: oxyCODONE 5 mg/Acetaminophen 325 mg TAB 1 TAB PO (15:15)
[2020-09-21 16:05] VITALS: BP 151/67; PULSE 79; RESP 17; O2SAT 97
== END 2020-09-21 16:17 | disposition home or self-care (01) ==
PROVIDERS: Emergency Provider Physician Assistant; PCP Nurse Practitioner Family
DX: M79.661 Pain in right lower leg (principal); I73.9 Peripheral vascular disease, unspecified; Z87.891 Personal history of nicotine dependence; I10 Essential (primary) hypertension
CPT/HCPCS: 99284; 93971

== ENCOUNTER 2020-10-26 19:54 | Outpatient (REF) | payer OTHER, SELFPAY ==
[2020-10-26 19:31] LABS: Abs Immature Grans 0.02 10^3/uL (0.0-0.06); Absolute Basophil Count 0.04 10^3/uL (0.0-0.2); Absolute Eosinophil Count 0.35 10^3/uL (0.0-0.7); Absolute Lymphocyte Count 2.83 10^3/uL (1.2-3.4); Absolute Monocyte Count 0.85 10^3/uL (0.1-0.8); Absolute Neutrophil Count 6.13 10^3/uL (1.2-6.7); Basophils % 0.4; Eosinophils % 3.4; HCT 35.9 % (36.0-46.0); Immature Grans % 0.2; Lymphocytes % 27.7; MCH 32.8 pg (27.0-33.0); MCHC 33.4 % (32.0-36.0); MCV 98.1 fL (80-95); MPV 10.6 fL (8.0-11.0); Monocytes % 8.3; Nucleated RBC 0 %; Platelet Count 324 10^3/uL (130-400); RBC 3.66 10^6/uL (3.93-5.22); RDW 12.9 % (11.7-14.6); RDW-SD 46.5 fL; WBC 10.22 10^3/uL (4.4-10.8)
[2020-10-26 19:33] LABS: Anion Gap 7.3 mmol/L (3-11); BUN 14 mg/dL (7-18); CO2 27.7 mmol/L (21.0-32.0); CREATININE 0.98 mg/dL (0.55-1.02); Calcium 8.5 mg/dL (8.5-10.1); Chloride 106 mmol/L (98-107); Estimated GFR 55.95 (mL/min/1.73m2); Glucose 87 mg/dL (74-106); Potassium 4.1 mmol/L (3.5-5.1); Sodium 141 mmol/L (136-145)
[2020-10-27 11:22] LABS: C Diff PCR Negative (Negative)
[2020-10-28 11:44] LABS: Campylobacter PCR Negative (Negative); Salmonella PCR Negative (Negative); Shiga Toxin PCR Negative (Negative); Shigella/Enteroinvasive Ecoli Negative (Negative)
== END 2020-10-26 20:14 ==
LOC: NCHCN 19:54
PROVIDERS: PCP Nurse Practitioner Family; Visit Provider Nurse Practitioner Family
DX: R19.7 Diarrhea, unspecified (principal)
CPT/HCPCS: 80048; 87329; 87493; 87505; 83630; 85025; 87177

== ENCOUNTER 2021-06-01 09:26 | Outpatient (REF) | payer OTHER, SELFPAY ==
[2021-06-01 22:58] LABS: ALT 17 U/L (14-59); AST 13 U/L (15-37); Anion Gap 10.8 mmol/L (3-11); BUN 17 mg/dL (7-18); CO2 26.2 mmol/L (21.0-32.0); CREATININE 1.1 mg/dL (0.55-1.02); Calcium 9.3 mg/dL (8.5-10.1); Calculated LDL 58 mg/dL (<100); Chloride 105 mmol/L (98-107); Cholesterol 141 mg/dL (<200); Estimated GFR 48.82 (mL/min/1.73m2); Glucose 98 mg/dL (74-106); HDL Cholesterol 62 mg/dL (40-60); Potassium 4.5 mmol/L (3.5-5.1); Sodium 142 mmol/L (136-145); Triglyceride 107 mg/dL (<150); Vitamin B12 1504 pg/mL (193-986)
[2021-06-01 23:14] LABS: Creatine Kinase 71 U/L (26-192)
== END 2021-06-01 09:27 | disposition home or self-care (01) ==
LOC: NCHCN 09:26
PROVIDERS: PCP Nurse Practitioner Family; Visit Provider Nurse Practitioner Family
DX: I10 Essential (primary) hypertension (principal); E78.5 Hyperlipidemia, unspecified; R53.83 Other fatigue
CPT/HCPCS: 80048; 80061; 82550; 82607; 84450; 84460

== ENCOUNTER 2021-06-07 12:23 | Outpatient (CLI) | payer OTHER, SELFPAY ==
--- NOTE | 2021-06-07 | DI.RAD_ITS ---
Exam(s) XR THORACIC SPINE COMPLETE EXAM: XR THORACIC SPINE COMPLETE CLINICAL HISTORY: BACK PAIN, M54.9. TECHNIQUE: 2D digital imaging was performed. COMPARISON: No exams were available for comparison FINDINGS: There is no evidence of compression fracture nor listhesis. Some disc space narrowing is noted at mu ltiple levels in the thoracic spinal column. Minimal scoliosis noted. No abnormal widening of the p araspinal lines. No osseous lesions evident. IMPRESSION: DATA REPOSITORY: RADIATION DOSE DELIVERED:
== END 2021-06-07 12:43 ==
PROVIDERS: PCP Nurse Practitioner Family; Visit Provider Nurse Practitioner Family
DX: M54.9 Dorsalgia, unspecified (principal)
CPT/HCPCS: 72072

== ENCOUNTER 2021-06-17 13:18 | Outpatient (CLI) | payer MEDICARE, SELFPAY ==
--- NOTE | 2021-06-17 | DI.DEXA_ITS ---
Exam(s) XR DEXA BONE DENSITY W/WO PAGE EXAM: XR DEXA BONE DENSITY W/WO PAGE CLINICAL HISTORY: SCREENING FOR OSTEOPOROSIS, Z13.820 TECHNIQUE: Routine DEXA evaluation of the lumbar spine, hip, or forearm. COMPARISON: Prior DEXA scan 2009 FINDINGS: Performed on a [employer] unit. Lateral image: No compression fracture evident. Lumbar Spine total T-score: 0.6. Prior 2010 reading was -0.1 Hip total T-score:-0.1. Prior 2010 reading was -0.4 Independent reading at the femoral neck yields a T-score of -0.5 Forearm total T-score: -1.1 IMPRESSION: Bone mineral density measures in the normal range for lumbar spine and hip. Osteopenia range for dis nidhi form-wrist.. Fracture risk is low-moderate. Note: Any spine fracture indicates 5x risk for subsequent spine fracture and 2x risk for subsequent h ip fracture. World Health Organization criteria for BMD interpretation classify patients: Normal...... T- Score at or above -1.0 Osteopenic... T- Score between -1.0 and -2.5 Osteoporosis... T-Score at or below -2.5
== END 2021-06-17 13:38 ==
PROVIDERS: PCP Nurse Practitioner Family; Visit Provider Nurse Practitioner Family
DX: Z13.820 Encounter for screening for osteoporosis (principal); M85.88 Other specified disorders of bone density and structure, other site
CPT/HCPCS: 77080

== ENCOUNTER 2021-06-24 15:07 | Outpatient (REF) | payer OTHER, SELFPAY ==
[2021-06-25 11:16] LABS: COVID-19 RT-PCR UVMMC Result Negative (Negative)
== END 2021-06-24 15:08 | disposition home or self-care (01) ==
LOC: LBN 15:07
PROVIDERS: PCP Nurse Practitioner Family; Visit Provider Physician Assistant
DX: Z20.822 Contact with and (suspected) exposure to COVID-19 (principal); J06.9 Acute upper respiratory infection, unspecified
CPT/HCPCS: U0003

== ENCOUNTER 2021-07-16 03:40 | Outpatient (CLI) | payer OTHER, SELFPAY ==
--- NOTE | 2021-07-16 | DI.MAMMO_ITS ---
Exam(s) MAMMO SCREENING EXAM: MAMMO SCREENING CLINICAL HISTORY: SCREENING, PREVENTIVE [facility] CARE,Z00.00 TECHNIQUE: Bilateral full field digital CC and MLO mammographic images were obtained with 3D tomosyn thesis and utilizing computer aided detection (CAD). COMPARISON: Available for comparison. FINDINGS: Masses/Architectural Distortion: None seen. Microcalcifications: No suspicious pleomorphic-type are seen. Skin Thickening/Nipple Retraction: None. IMPRESSION: 1. No significant interval change with no specific features of malignancy noted. 2. Unless there is more urgent need, screening mammography is recommended, as per [employer] guidelines. BI-RADS Category 1 - Negative Breast Density - Category B - Scattered areas of fibroglandular density Breast density category C or D implies that the patient has dense breast tissue. Dense breast tissue is very common and is not abnormal but dense breast tissue can make it harder to find cancer on a ma mmogram. Also, dense breast tissue may increase their breast cancer risk. This information about the result of the mammogram report was provided to the patient to raise their awareness. Use this report when you speak with the patient about their risks for breast cancer, which includes their family hist ory. At that time, you may recommend for more screening tests (Ultrasound or MRI) as they might be us eful based on their risk. A negative radiographic report should not delay biopsy if a dominant or clinically suspicious mass is present. Up to ten percent of cancers are not identified on mammography. A negative report may reinforce clinical impression. Adenosis and dense breasts may obscure an underlying neoplasm. False positive reports average 6 to 10%. Patient will receive a letter notifying them of these results.
== END 2021-07-16 04:00 ==
PROVIDERS: PCP Nurse Practitioner Family; Visit Provider Nurse Practitioner Family
DX: Z00.00 Encounter for general adult medical examination without abnormal findings (principal); Z12.31 Encounter for screening mammogram for malignant neoplasm of breast
CPT/HCPCS: 77063; 77067

== ENCOUNTER 2021-11-02 16:42 | Outpatient (REF) | payer OTHER, SELFPAY ==
[2021-11-02 22:05] LABS: TSH 4.22 uIU/mL (0.36-3.74)
[2021-11-02 22:38] LABS: FREE T4 0.85 ng/dL (0.76-1.46)
== END 2021-11-02 16:43 | disposition home or self-care (01) ==
LOC: NCHCN 16:42
PROVIDERS: PCP Nurse Practitioner Family; Visit Provider Nurse Practitioner Family
DX: E03.9 Hypothyroidism, unspecified (principal); R53.83 Other fatigue
CPT/HCPCS: 82306; 84439; 84443

== ENCOUNTER 2021-12-15 12:30 | Outpatient (REF) | payer OTHER, SELFPAY ==
[2021-12-17 11:17] LABS: COVID-19 RT-PCR UVMMC Result Negative (Negative)
== END 2021-12-15 12:31 | disposition home or self-care (01) ==
LOC: NCHCN 12:30
PROVIDERS: PCP Nurse Practitioner Family; Visit Provider Nurse Practitioner Family
DX: Z20.822 Contact with and (suspected) exposure to COVID-19 (principal); R53.83 Other fatigue; J31.0 Chronic rhinitis
CPT/HCPCS: U0003

== ENCOUNTER 2021-12-22 09:08 | Outpatient (REF) | payer OTHER, SELFPAY ==
[2021-12-22 14:48] LABS: HCT 39.8 % (36.0-46.0); HGB 12.8 g/dL (11.2-15.7); MCH 33.2 pg (27.0-33.0); MCHC 32.2 % (32.0-36.0); MCV 103.1 fL (80-95); MPV 10.1 fL (8.0-11.0); Platelet Count 327 10^3/uL (130-400); RBC 3.86 10^6/uL (3.93-5.22); RDW 12.5 % (11.7-14.6); RDW-SD 46.7 fL; WBC 9.63 10^3/uL (4.4-10.8)
[2021-12-22 15:28] LABS: Anion Gap 9.3 mmol/L (3-11); BUN 21 mg/dL (7-18); CO2 26.7 mmol/L (21.0-32.0); CREATININE 1.1 mg/dL (0.55-1.02); Calcium 9.5 mg/dL (8.5-10.1); Chloride 105 mmol/L (98-107); Estimated GFR 48.82 (mL/min/1.73m2); FREE T4 0.91 ng/dL (0.76-1.46); Glucose 96 mg/dL (74-106); Potassium 4.6 mmol/L (3.5-5.1); Sodium 141 mmol/L (136-145); TSH 2.53 uIU/mL (0.36-3.74)
== END 2021-12-22 09:09 | disposition home or self-care (01) ==
LOC: NCHCN 09:08
PROVIDERS: PCP Nurse Practitioner Family; Visit Provider Nurse Practitioner Family
DX: E03.9 Hypothyroidism, unspecified (principal); D64.9 Anemia, unspecified; I10 Essential (primary) hypertension; R53.83 Other fatigue; J31.0 Chronic rhinitis
CPT/HCPCS: 80048; 85027; 84439; 84443

== ENCOUNTER 2022-03-23 11:21 | Outpatient (CLI) | payer OTHER, SELFPAY ==
--- NOTE | 2022-03-23 06:00 | DI.RAD_ITS ---
Exam(s) XR PAIN CLINIC SACRIOILIAC 2V EXAM: XR PAIN CLINIC SACRIOILIAC 2V CLINICAL HISTORY: Dx: Sacroiliac Joint Dysfunction. TECHNIQUE: Fluoroscopy was provided for the referring physician for guidance with performing injecti on procedure. COMPARISON: No exams were available for comparison FINDINGS: Please see procedure note for details. Fluoro time: 27 seconds RADIATION DOSE DELIVERED: Ka,r=7.0 mGy
[2022-03-23 11:44] VITALS: BP 127/67; PULSE 83; RESP 22; TEMP 36.5; O2SAT 96
[2022-03-23 12:17] VITALS: BP 133/61; PULSE 85; RESP 19; O2SAT 98
[2022-03-23] MEDS: Omnipaque 240 MG/ML 50 ML BTL IJ (12:17)
[2022-03-23] MEDS: methylPREDNISolone ACETATE 80 MG/ML VIAL IJ (12:17)
--- NOTE | 2022-03-23 12:23 | PDOC.PAIN_ITS ---
Pain Clinic Procedure Note Procedure Note Procedure Note: INTRA-ARTICULAR SI JOINT INJECTION Lindsey Deleon has been referred to the [facility] Management [facility] for intra- articular SI joint injection. COMMENTS: I previously evaluated the patient in the office. Her pre-procedure VAS pain level was 5/10. Dx: Sacroiliac joint dysfunction Patient was interviewed and the medical record reviewed. There were no medical, pharmacologic, radiographic or other structural contraindications to attempting fluoroscopically guided intra-articular SI joint injection. Risks and expected side effects as well as potential benefit of the procedure were reviewed and voiced concerns addressed. The printed consent form was signed and witnessed. Standard time-out procedure was performed. Patient was placed in the prone position on the fluoroscopy table and automated blood pressure cuff and pulse oximeter applied. The skin entry point for approaching the left SI joint was identified under the most advantageous fluoroscopic view and marked. Following thorough Chlorhexadine preparation of the skin and draping and 1% lidocaine infiltration of the skin entry point and subcutaneous tissues, a 22 gauge 3.5 spinal needle was placed under fluoroscopic guidance into the left SI joint was identified under the most advantageous fluoroscopic view and marked. Intra-articular placement was confirmed by a clear arthrogram resulting from the injection of 0.25ml Omnipaque 240, 1ml 1% lidocaine, and 40mg Depomedrol were injected intra-articularily with an initial reproduction of a significant component of the usual pain. Vital signs were stable throughout the procedure and were as recorded in the docflowsheet by the nursing staff. If given, dosages of intravenous drugs for anxiolysis and analgesia were documented in MAR. Follow up plans and appointments were discussed with the patient. Post procedure instruction was given as documented in nursing documentation and having met discharge criteria, and was discharged from the [facility] Management [facility]. COMMENTS: Post-procedure pain VAS was 0/10. Donny Gillette DO, MPH [facility]-Pain Management [facility] for [facility] CC: Vanita Churchill
== END 2022-03-23 11:22 | disposition home or self-care (01) ==
PROVIDERS: PCP Nurse Practitioner Family; Visit Provider Preventive Medicine Occupational Medicine
DX: M53.3 Sacrococcygeal disorders, not elsewhere classified (principal)
CPT/HCPCS: 27096; 72200; J1040; Q9967

== ENCOUNTER 2022-05-03 14:56 | Outpatient (REF) | payer OTHER, SELFPAY ==
[2022-05-03 15:52] LABS: ALT 22 U/L (14-59); AST 17 U/L (15-37); Anion Gap 12.8 mmol/L (3-11); BUN 27 mg/dL (7-18); CO2 25.2 mmol/L (21.0-32.0); CREATININE 1.4 mg/dL (0.55-1.02); Chloride 103 mmol/L (98-107); Estimated GFR 36.86 (mL/min/1.73m2); Glucose 89 mg/dL (74-106); HDL Cholesterol 67 mg/dL (40-60); LDL CHOLESTEROL 64 mg/dL (<100); Potassium 4.1 mmol/L (3.5-5.1); Sodium 141 mmol/L (136-145)
[2022-05-03 16:30] LABS: Creatine Kinase 59 U/L (26-192)
== END 2022-05-03 14:57 | disposition home or self-care (01) ==
LOC: NCHCN 14:56
PROVIDERS: PCP Nurse Practitioner Family; Visit Provider Nurse Practitioner Family
DX: I10 Essential (primary) hypertension (principal); E78.5 Hyperlipidemia, unspecified
CPT/HCPCS: 80048; 82550; 83721; 83718; 84450; 84460

== ENCOUNTER 2022-05-17 18:10 | Outpatient (REF) | payer OTHER, SELFPAY ==
[2022-05-17 16:21] LABS: Anion Gap 9.6 mmol/L (3-11); BUN 17 mg/dL (7-18); CO2 25.4 mmol/L (21.0-32.0); Calcium 9.4 mg/dL (8.5-10.1); Chloride 103 mmol/L (98-107); Estimated GFR 54.35 (mL/min/1.73m2); Glucose 84 mg/dL (74-106); Potassium 4.3 mmol/L (3.5-5.1); Sodium 138 mmol/L (136-145)
== END 2022-05-17 18:11 | disposition home or self-care (01) ==
LOC: NCHCN 18:10
PROVIDERS: PCP Nurse Practitioner Family; Visit Provider Nurse Practitioner Family
DX: R94.4 Abnormal results of kidney function studies (principal)
CPT/HCPCS: 80048

== ENCOUNTER 2022-08-24 09:18 | Outpatient (CLI) | payer OTHER, SELFPAY ==
--- NOTE | 2022-08-24 06:00 | DI.RAD_ITS ---
Exam(s) XR PAIN CLINIC SACRIOILIAC 2V EXAM: XR PAIN CLINIC SACRIOILIAC 2V CLINICAL HISTORY: Dx: Sacroiliac Joint Dysfunction TECHNIQUE: 2D and realtime digital imaging was performed. COMPARISON: No exams were available for comparison FINDINGS: C-arm fluoroscopy was utilized by Dr. Gillette during left SI joint injection. Hard copy confirms needle placement at the left SI joint. IMPRESSION: RADIATION DOSE DELIVERED: salma Olea=3.05 mGy
[2022-08-24 09:32] VITALS: BP 143/79; PULSE 74; RESP 20; TEMP 36.6; O2SAT 97
[2022-08-24 09:55] VITALS: BP 156/74; PULSE 80; RESP 16; O2SAT 96
--- NOTE | 2022-08-24 09:56 | PDOC.PAIN ---
Pain Clinic Procedure Note Procedure Note Procedure Note: INTRA-ARTICULAR SI JOINT INJECTION Lindsey Deleon has been referred to the [facility] Management Center for intra-articular SI joint injection. COMMENTS: She last had this procedure on 03/23/22 and had 3-4 months of excellent relief. Her pre-procedure pain VAS was 4/10. Dx: Sacroiliac joint dysfunction Patient was interviewed and the medical record reviewed. There were no medical, pharmacologic, radiographic or other structural contraindications to attempting fluoroscopically guided intra-articular SI joint injection. Risks and expected side effects as well as potential benefit of the procedure were reviewed and voiced concerns addressed. The printed consent form was signed and witnessed. Standard time-out procedure was performed. Patient was placed in the prone position on the fluoroscopy table and automated blood pressure cuff and pulse oximeter applied. The skin entry point for approaching the left SI joint was identified under the most advantageous fluoroscopic view and marked. Following thorough Chlorhexadine preparation of the skin and draping and 1% lidocaine infiltration of the skin entry point and subcutaneous tissues, a 22 gauge spinal needle was placed under fluoroscopic guidance into the left SI joint was identified under the most advantageous fluoroscopic view and marked. Intra-articular placement was confirmed by a clear arthrogram resulting from the injection of 0.25ml Omnipaque 240, 1ml 1% lidocaine, and 40mg Depomedrol were injected intra-articularily with an initial reproduction of a significant component of the usual pain. Vital signs were stable throughout the procedure and were as recorded in the docflowsheet by the nursing staff. If given, dosages of intravenous drugs for anxiolysis and analgesia were documented in MAR. Follow up plans and appointments were discussed with the patient. Post procedure instruction was given as documented in nursing documentation and having met discharge criteria, and was discharged from the Pain Management Center. COMMENTS: Post-procedure pain VAS was 1/10. Donny Gillette DO, MPH [facility]-Pain Management [facility]-Center for Pain Management CC: Vanita Churchill
[2022-08-24] MEDS: methylPREDNISolone ACETATE 80 MG/ML VIAL IJ (10:02)
[2022-08-24] MEDS: Omnipaque 240 MG/ML 50 ML BTL IJ (10:03)
--- NOTE | 2022-08-24 15:01 | PDOC.PAIN_ITS ---
Pain Clinic Procedure Note Procedure Note Procedure Note: INTRA-ARTICULAR SI JOINT INJECTION Lindsey Deleon has been [facility] for intra- articular SI joint injection. COMMENTS: [] Patient was interviewed and the medical record reviewed. There were no medical, pharmacologic, radiographic or other structural contraindications to attempting fluoroscopically guided intra-articular SI joint injection. Risks and expected side effects as well as potential benefit of the procedure were reviewed and voiced concerns addressed. The printed consent form was signed and witnessed. Standard time-out procedure was performed. Patient was placed in the prone position on the fluoroscopy table and automated blood pressure cuff and pulse oximeter applied. The skin entry point for approaching [right/left/bilateral] SI joints was identified under the most advantageous fluoroscopic view and marked. Following thorough Chlorhexadine preparation of the skin and draping and 1% lidocaine infiltration of the skin entry point and subcutaneous tissues, a 22 gauge spinal needle was placed under fluoroscopic guidance into [right/left/bilateral] SI joints was identified under the most advantageous fluoroscopic view and marked. Following thorough Chlorhexadine preparation of the skin and draping and 1% lidocaine infiltration of the skin entry point and subcutaneous tissues, a 22 gauge spinal needle was p laced under fluoroscopic guidance into [Desc;] [right/left/bilateral] :09570 SI joint. Intra-articular placement was confirmed by a clear arthrogram resulting from the injection of 0.25ml Omnipaque 240, 1ml 1% lidocaine, and 40mg Depomedrol were injected intra-articularily with an initial reproduction of a significant component of the usual pain. Vital signs were stable throughout the procedure and were as recorded in the docflowsheet by the nursing staff. If given, dosages of intravenous drugs for anxiolysis and analgesia were documented in MAR. Follow up plans and appointments were discussed with the patient. Post procedure instruction was given as documented in nursing documentation and having met discharge criteria, and was discharged from the [facility]. COMMENTS: [] CC: Vanita Churchill
== END 2022-08-24 09:19 | disposition home or self-care (01) ==
LOC: PC 09:19
PROVIDERS: PCP Nurse Practitioner Family; Visit Provider Preventive Medicine Occupational Medicine
DX: M53.3 Sacrococcygeal disorders, not elsewhere classified (principal)
CPT/HCPCS: 27096; 72200; J1040; Q9967

== ENCOUNTER → 2022-10-26 02:53 | Outpatient (CLI) | payer OTHER, SELFPAY ==
--- NOTE | 2022-10-26 | DI.MAMMO_ITS ---
Exam(s) MAMMO SCREENING EXAM: MAMMO SCREENING CLINICAL HISTORY: SCREENING, Z12.31. TECHNIQUE: Bilateral full field digital CC and MLO mammographic images were obtained with 3D tomosyn thesis and utilizing computer aided detection (CAD). COMPARISON: Prior mammograms were reviewed. FINDINGS: There are no new spiculated masses nor malignant appearing microcalcification groups. There is no significant architectural distortion nor skin thickening-retraction. IMPRESSION: No radiographic evidence of malignancy. BI-RADS Category 1 - Negative Breast Density - Category B - Scattered areas of fibroglandular density Breast density Category C or D implies that the patient has dense breast tissue. Dense breast tissue can make it harder to find cancer on a mammogram. Dense breast tissue is also associated with an incr eased risk of breast cancer. This information about the result of the mammogram report was provided to the patient to raise their awareness. Use this report when you speak with the patient about their risks for breast cancer, which includes their family history. At that time, you may recommend additional screening tests (Ultrasoun d or MRI) as these tests may add significant information. A negative radiographic report should not delay biopsy if a dominant or clinically suspicious mass is present. Up to ten percent of cancers are not identified on mammography. A negative report may reinforce clinical impression. Adenosis and dense breasts may obscure an underlying neoplasm. False positive reports average 6 to 10%. Patient will receive a letter notifying them of these results.
== END ==
PROVIDERS: PCP Nurse Practitioner Family; Visit Provider Nurse Practitioner Family
DX: Z12.31 Encounter for screening mammogram for malignant neoplasm of breast (principal)
CPT/HCPCS: 77063; 77067

== ENCOUNTER 2022-11-23 10:52 | Outpatient (REF) | payer OTHER, SELFPAY ==
[2022-11-23 15:08] LABS: FREE T4 0.98 ng/dL (0.76-1.46); TSH 3.42 uIU/mL (0.36-3.74)
== END 2022-11-23 10:53 | disposition home or self-care (01) ==
LOC: NCHCN 10:52
PROVIDERS: PCP Nurse Practitioner Family; Visit Provider Nurse Practitioner Family
DX: E03.9 Hypothyroidism, unspecified (principal)
CPT/HCPCS: 84439; 84443

== ENCOUNTER 2023-01-19 14:55 | Outpatient (CLI) | payer OTHER, SELFPAY ==
--- NOTE | 2023-01-19 13:45 | DI.RAD_ITS ---
Exam(s) XR CHEST 2V PA LATERAL EXAM: XR CHEST 2V PA LATERAL CLINICAL HISTORY: Cough, R05.9, evaluate pathology TECHNIQUE: 2D digital imaging was performed of the chest. Two images were obtained. PA and lateral views were obtained. COMPARISON: CR XR PORTABLE CHEST AP from 09/11/2020 FINDINGS: MEDIASTINUM: Normal. HEART: Normal. PULMONARY VASCULATURE: Normal. LUNGS: There are persistent stable interstitial markings throughout the lungs which appear chronic. No evidence of a focal consolidating infiltrate. There is flattening of the diaphragms suggesting un derlying COPD. PLEURAL SPACE: No pleural effusion or pneumothorax. BONE:Within normal limits for the patient's age. OTHER FINDINGS:Normal. IMPRESSION: No acute pulmonary findings. DATA REPOSITORY: RADIATION DOSE DELIVERED:
== END 2023-01-19 15:15 ==
LOC: DI 14:56
PROVIDERS: PCP Nurse Practitioner Family; Visit Provider Nurse Practitioner Family
DX: R05.8 Other specified cough (principal); J98.6 Disorders of diaphragm; J98.4 Other disorders of lung
CPT/HCPCS: 71046

== ENCOUNTER 2023-01-19 14:57 | Outpatient (CLI) | payer OTHER, SELFPAY ==
[2023-01-19 14:43] LABS: Abs Immature Grans 0.13 10^3/uL (0.0-0.06); Absolute Basophil Count 0.05 10^3/uL (0.0-0.2); Absolute Monocyte Count 1.29 10^3/uL (0.1-0.8); Basophils % 0.3; Eosinophils % 1.6; HCT 38.5 % (36.0-46.0); HGB 12.3 g/dL (11.2-15.7); Immature Grans % 0.9; Lymphocytes % 17.8; MCHC 31.9 % (32.0-36.0); MCV 103 fL (80-95); MPV 9.1 fL (8.0-11.0); Monocytes % 8.5; Neutrophils % 70.9; Platelet Count 342 10^3/uL (130-400); RBC 3.73 10^6/uL (3.93-5.22); RDW 12.7 % (11.7-14.6); RDW-SD 47.8 fL; WBC 15.16 10^3/uL (4.4-10.8)
[2023-01-19 14:44] LABS: Absolute Eosinophil Count 0.24 10^3/uL (0.0-0.7); Absolute Neutrophil Count 10.75 10^3/uL (1.2-6.7)
[2023-01-19 15:18] LABS: ALT 23 U/L (14-59); AST 18 U/L (15-37); Albumin 3.7 g/dL (3.4-5.0); Alkaline Phosphatase 72 U/L (46-116); Anion Gap 7.9 mmol/L (3-11); BUN 15 mg/dL (7-18); Bilirubin, Total 0.5 mg/dL (0.2-1.0); CO2 29.1 mmol/L (21.0-32.0); CREATININE 1.1 mg/dL (0.55-1.02); Calcium 9.4 mg/dL (8.5-10.1); Chloride 105 mmol/L (98-107); Estimated GFR 52.73 (mL/min/1.73m2); Glucose 94 mg/dL (74-106); NT-proBNP 651 pg/mL (<300); Potassium 4.2 mmol/L (3.5-5.1); Sodium 142 mmol/L (136-145); Total Protein 7.9 g/dL (6.4-8.2)
== END 2023-01-19 14:58 | disposition home or self-care (01) ==
LOC: LBO 14:58
PROVIDERS: PCP Nurse Practitioner Family; Visit Provider Nurse Practitioner Family
DX: J06.9 Acute upper respiratory infection, unspecified (principal); R05.8 Other specified cough; I10 Essential (primary) hypertension; R53.83 Other fatigue; J02.9 Acute pharyngitis, unspecified; R06.02 Shortness of breath
CPT/HCPCS: 36415; 80053; 83880; 85025

== ENCOUNTER 2023-01-23 11:29 | Emergency (ER) | payer OTHER, SELFPAY ==
[2023-01-23] VITALS (19 sets, daily range): BP systolic 126–152; BP diastolic 65–79; PULSE 76–87; RESP 18–20; TEMP 36.8; O2SAT 88–99
--- NOTE | 2023-01-23 11:30 | RT.EKG_ITS ---
APPROVED REPORT Exam: Resting ECG Reason for Exam: sob Patient Location: E HR:82 bpm ECG Measurements Heart Rate 82 AXIS WV 148 P 38 QRSd 132 QRS -73 QT 412 T 29 QTc 482 Conclusion Sinus rhythm...normal P axis, V-rate 60- 99 Probable left atrial enlargement...P >50mS, <-0.10mV V1 RBBB and LAFB...QRSd >120mS, axis(-40,240) Borderline ST elevation, lateral leads...ST >0.06mV, I aVL V5 V6 Normal sinus rhythm at a rate of 82 with right bundle branch block and left axis deviation???bifascic ular block. Appears similar to prior in the [facility] medical record from April 2019. No acute injury stacy pretty.
--- NOTE | 2023-01-23 11:32 | ED.GENADUL_ITS ---
Discharge Plan Disposition Patient Disposition: Home Discharge Details Clinical Impression: Acute exacerbation of chronic obstructive pulmonary disease Primary Care Provider: Vanita Churchill ED Provider: Mega Redd [place] Meds and New Rx's Prescriptions: New prednisone 20 mg tablet 60 mg PO DAILY 5 Days Qty: 15 0RF doxycycline hyclate 100 mg capsule 100 mg PO BID Qty: 10 0RF Continued bupropion HCl [Wellbutrin SR] 150 mg Tablet Sustained-Release 12 Hr 150 mg PO QAM citalopram [Celexa] 40 mg Tablet 40 mg PO DAILY ziprasidone HCl [Geodon] 20 mg Capsule 20 mg PO BID hydrocortisone 1 % Cream 1 applic TOPICAL BID PRN levothyroxine 50 mcg Tablet 50 mcg PO DAILY diphenhydramine HCl [Benadryl] 25 mg Capsule 50 mg PO HS ferrous sulfate [iron] 325 mg (65 mg iron) Tablet 28 mg PO DAILY (DME) nebulizers Misc MISCELLANEOUS nystatin 100,000 unit/gram Powder 1 applic TOPICAL TID rosuvastatin 20 mg Tablet 20 mg PO HS Zyrtec 10 mg Capsule 10 mg PO DAILY diclofenac sodium 1 % gel 4 gm TP QID PRN (Reason: left hip pain) 6 Days Qty: 100 11RF gabapentin 300 mg capsule 300 mg PO TID 90 Days Qty: 270 3RF Rx Instructions: no abrupt cessation ezetimibe [Zetia] 10 mg tablet 10 mg PO HS hydrochlorothiazide 25 mg tablet 25 mg PO DAILY nystatin 100,000 unit/mL suspension 5 ml PO QID 10 Days Qty: 200 0RF Rx Instructions: swish and swallow benzonatate 100 mg capsule 100 mg PO TID PRN (Reason: cough) Qty: 14 0RF multivitamin [Daily Multi-Vitamin] 1 EACH tablet 1 tab PO DAILY aspirin 325 MG tablet 325 mg PO DAILY calcium carbonate-vitamin D3 1 EACH tablet 2 tab PO DAILY carboxymethylcellulose sodium [Refresh Tears] 30 ML drops 2 drp OU BID nystatin 15 GM cream 1 ea Topical TID cholecalciferol (vitamin D3) [Vitamin D3] 400 UNIT tablet 2,000 unit PO DAILY folic acid 0.8 MG tablet 0.8 mg PO DAILY Fortifeye 1 tab PO DAILY albuterol sulfate [ProAir HFA] 90 mcg/actuation Hfa Aerosol Inhaler 2 puff INHALATION PRN PRN fluticasone propionate [Flovent HFA] 110 mcg/actuation HFA aerosol inhaler 1 puff Inhalation BID guaifenesin [Mucinex] 600 mg Tablet Extended Release 12hr 600 mg PO Q12H PRN acetaminophen 325 mg tablet 650 mg PO BID Discharge Instructions Instructions: COPD (Chronic Obstructive Pulmonary Disease) (ED) Additional Instructions: Please read all of the information that accompanies these instructions. You were seen in the emergency department for your difficulty breathing. You were diagnosed with a COPD exacerbation for which you are receiving medications which you should take.. Please schedule an appointment with your primary care provider later this week. Please return to the emergency department if you develop worsening shortness of breath chest pain or.. Discharge Data Discharge Date/Time-TO BE ENTERED AT DEPARTURE: 01/23/23 14:12 Medical Decision Making This is an overall well-appearing normothermic and not tachycardic 72-year-old female with shortness of breath concerning for exacerbation of reactive airway disease, PE, COVID, and pneumonia. Her limited bedside echocardiogram was not consistent with acute CHF and she has had no significant lower extremity pitting edema nor any unintentional weight gain so my suspicion is low for CHF. No chest pain however given age and sex will obtain single troponin. No fevers and not hypotensive nor febrile so my suspicion is low for sepsis at this point time and will defer broad-spectrum antibiotics lactate and blood cultures. Based on shortness of breath and history of peripheral vascular disease will obtain a D-dimer to assess for PE since patient is otherwise low risk given as she lacks malignancy and does not have calf pain and I am not suspicious for DVT. Bacterial PNA is a possibility however patient does not have any fevers and is not ill appears. If chest x-ray is negative will defer CT scan at this point given clinical picture more consistent with COPD exacerbation. We will swab for COVID. Oral thrush has resolved. Will encourage patient to continue treatment as previously directed. If her evaluation is reassuring in the ED will treat her for COPD. Given no volume overload and no B-lines on bedside ultrasound I do not feel that her presentation represents acute heart failure and as result I do not feel that she warrants hospitalization for an expedited TAVR evaluation. 1:53pm I met with patient. Her age-adjusted D-dimer was negative. Symptomatic relief with albuterol treatment. Given no focal infiltrate on chest x-ray we will treat empirically for acute COPD exacerbation with prednisone and doxycycline. Will advise her to return if her symptoms do not improve. Otherwise have advised PMD follow-up later this week for reassessment. Not hypoxic on room air. She had a negative RVP. Her VBG lacked hypercarpia and acidemia. CBC with improved leukocytosis and no anemia. Chemistry with no acute electrolyte abnormalities and no acute kidney injury. HPI General Date/Time Provider Initiated Documentation: 01/23/23 11:30 . HPI Narrative: This is a 72-year-old female with a history of aortic stenosis, hypertension, hyperlipidemia, COPD/emphysema, hypothyroidism, and peripheral artery disease arriving via private vehicle in the setting of worsening dyspnea. She quit smoking 19 years ago but has a [id number] history of tobacco use. Her echocardiogram showed that her aortic valve area was 1 cm2 last month. She reports she initially felt short of breath approximately 24 days ago. She had cold symptoms. She went to urgent care on January 06 and was placed on oral antibiotics. She said that this improved her symptoms however they gradually worsened over the past several days and she has had increased production of a more purulent and green sputum. She has not had treatment for acute COPD exacerbation with steroids in the past several years. She has worsening dyspnea on exertion. She is due an upcoming left heart catheterization with cardiology at [facility] [place] as she is being evaluate for aortic valve replacement. She denies routine alcohol and tobacco use. Related Data Home Medications Medication Instructions Recorded Confirmed aspirin 325 mg tablet 325 mg PO DAILY 03/21/14 01/23/23 calcium carbonate 600 mg-vitamin 2 tab PO DAILY 03/21/14 01/06/23 D3 5 mcg (200 unit) tablet carboxymethylcellulose sodium 0.5 2 drp OU BID 03/21/14 01/23/23 % eye drops (Refresh Tears) cholecalciferol (vitamin D3) 10 2,000 unit PO DAILY 03/21/14 01/23/23 mcg (400 unit) tablet (Vitamin D3) folic acid 800 mcg tablet 0.8 mg PO DAILY 03/21/14 01/23/23 multivitamin (Daily Multi-Vitamin 1 tab PO DAILY 03/21/14 01/23/23 tablet) nystatin 100,000 unit/gram topical 1 ea topical TID 03/21/14 01/23/23 cream bupropion HCl 150 mg tablet,12 hr 150 mg PO QAM 05/20/20 01/23/23 sustained-release (Wellbutrin SR) cetirizine 10 mg capsule (Zyrtec) 10 mg PO DAILY 05/20/20 01/23/23 citalopram 40 mg tablet (Celexa) 40 mg PO DAILY 05/20/20 01/23/23 diphenhydramine HCl 25 mg capsule 50 mg PO HS 05/20/20 01/23/23 (Benadryl) ferrous sulfate 325 mg (65 mg 28 mg PO DAILY 05/20/20 01/23/23 iron) tablet (iron) hydrocortisone 1 % topical cream 1 applic topical BID PRN 05/20/20 01/23/23 levothyroxine 50 mcg tablet 50 mcg PO DAILY 05/20/20 01/23/23 nebulizers 05/20/20 01/06/23 nystatin 100,000 unit/gram topical 1 applic topical TID 05/20/20 01/23/23 powder rosuvastatin 20 mg tablet 20 mg PO HS 05/20/20 01/23/23 ziprasidone HCl 20 mg capsule 20 mg PO BID 05/20/20 01/23/23 (Geodon) diclofenac sodium 1 % topical gel 4 gm topical QID PRN left hip pain 05/28/20 01/23/23 6 days #100 grams gabapentin 300 mg capsule 300 mg PO TID 90 days #270 caps 05/28/20 01/06/23 guaifenesin 600 mg tablet, 600 mg PO Q12H PRN 09/11/20 01/23/23 extended release 12 hr (Mucinex) Fortifeye 1 tab PO DAILY 09/21/20 01/23/23 albuterol sulfate 90 mcg/actuation 2 puff inhalation PRN PRN 09/21/20 01/23/23 aerosol inhaler (ProAir HFA) acetaminophen 325 mg tablet 650 mg PO BID 02/16/22 01/23/23 ezetimibe 10 mg tablet (Zetia) 10 mg PO HS 02/16/22 01/23/23 fluticasone propionate 110 1 puff inhalation BID 02/16/22 01/23/23 mcg/actuation HFA aerosol inhaler (Flovent HFA) hydrochlorothiazide 25 mg tablet 25 mg PO DAILY 02/16/22 01/23/23 benzonatate 100 mg capsule 100 mg PO TID PRN cough #14 caps 01/06/23 01/06/23 nystatin 100,000 unit/mL oral 5 ml PO QID 10 days #200 mL 01/19/23 01/23/23 suspension doxycycline hyclate 100 mg capsule 100 mg PO BID #10 caps 01/23/23 prednisone 20 mg tablet 60 mg PO DAILY 5 days #15 tabs 01/23/23 Previous Rx's Medication Instructions Recorded diclofenac sodium 1 % topical gel 4 gm topical QID PRN left hip pain 05/28/20 6 days #100 grams gabapentin 300 mg capsule 300 mg PO TID 90 days #270 caps 05/28/20 benzonatate 100 mg capsule 100 mg PO TID PRN cough #14 caps 01/06/23 nystatin 100,000 unit/mL oral 5 ml PO QID 10 days #200 mL 01/19/23 suspension doxycycline hyclate 100 mg capsule 100 mg PO BID #10 caps 01/23/23 prednisone 20 mg tablet 60 mg PO DAILY 5 days #15 tabs 01/23/23 Allergies Allergy/AdvReac Type Severity Reaction Status Date / Time cocoa butter Allergy Intermediate Verified 01/23/23 12:11 [From Preparation H] glycerin [From Preparation H] Allergy Intermediate Verified 01/23/23 12:11 latex Allergy Intermediate Skin Rash Verified 01/23/23 12:11 lisinopril Allergy Intermediate Verified 01/23/23 12:11 mineral oil* Allergy Intermediate Verified 01/23/23 12:11 [From Preparation H] petrolatum,white Allergy Intermediate Verified 01/23/23 12:11 [From Preparation H] phenylephrine Allergy Intermediate Verified 01/23/23 12:11 [From Preparation H] shark liver oil Allergy Intermediate Verified 01/23/23 12:11 [From Preparation H] bismuth subsalicylate Allergy Mild Verified 01/23/23 12:11 [From Kaopectate (bismuth subsalicy)] General BLAIR: 3 PFSH All Active Problems (Updated 01/23/23 @ 13:52 by Mega Redd MD) Acute exacerbation of chronic obstructive pulmonary disease (Acute) Asymmetrical sensorineural hearing loss (Acute) Trochanteric bursitis, left hip (Acute) Sacroiliac joint dysfunction of left side (Acute) Sensorineural hearing loss of both ears (Acute) Imbalance (Acute) Medical History Anemia Arthritis, rheumatoid Back pain Bilateral carotid artery stenosis Cervical radiculopathy Cervicalgia Claudication Cough Depression Elevated creatine kinase level Emphysema of lung GERD (gastroesophageal reflux disease) Heart murmur Hematuria Hemorrhoids History of paroxysmal supraventricular tachycardia History of tobacco use Hyperlipidemia Hypertension Hypothyroidism IBS (irritable bowel syndrome) Macular degeneration Malaise and fatigue Obesity CHEMA (obstructive sleep apnea) Polyarthralgia Right bundle branch block Trochanteric bursitis of left hip Vertigo benign, postural Surgical History Status post insertion of iliac artery stent Social History Smoking/Tobacco Use Status: Former Tobacco Use Smoking risk assessment performed?: Yes Alcohol Intake: current Alcohol Intake frequency: holidays/special occasions only Drug use: Never Substance use type: does not use Household members: children Housing: house Number of Children: 2 number of grandchildren: 4 current occupation: [employer] What type of physical activity do you participate in: independent ambulation and bicycling Do you feel safe at home: Yes Do you feel safe in your relationship?: Yes Additional Social history: quit smoking 24 yrs ago Exam Narrative Exam Narrative: General: Well-appearing in no acute distress speaking in complete sentences. Head: Normocephalic, atraumatic Ear, nose, mouth, throat: Grossly normal inspection. Normal voice, handling secretions normally. No signs of oral thrush. Neck: Trachea midline. Cardiovascular: Well-perfused distal extremities. Regular rhythm with systolic ejection murmur. Respiratory: Nonlabored respiration. Decreased breath sounds bilateral bases. Gastrointestinal: Nondistended abdomen. Musculoskeletal: No significant lower extremity pitting edema. Moving all 4 extremities spontaneously. Skin: Normal for age and race, grossly normal temperature and turgor. No acute rash. Neurologic: Alert and appropriate, no apparent acute deficits. Psychiatric: Mood and manner are appropriate. Grooming and personal hygiene are appropriate. POCUS Exam (ED) Limited Cardiac Exam DATE OF EXAM: 01/23/23 TIME OF EXAM: 12:03 PROVIDER THAT PERFORMED THE STUDY: Mega Redd REASON FOR EXAM: Dyspnea VIEW OBTAINED: Apical 4-Chamber, Parasternal long-axis and Subxiphoid PERTINENT FINDINGS/IMPRESSION: Other Good squeeze, RV less than LV, no significant pericardial effusion, no B-lines bilaterally. Exam complete
[2023-01-23] MEDS: Albuterol/Ipratropium 3 ML UPD VIAL UPD (12:15)
[2023-01-23 12:19] LABS: BE (Venous) -1 mmol/L (-2-3); HCO3 (Venous) 25 mmol/L (23-28); O2 Sat (Venous) 70 %; TCO2 (Venous) 23 mmol/L (24-29); pCO2 (Venous) 40 mmHg (41-51); pH (Venous) 7.39 (7.31-7.41); pO2 (Venous) 34 mmHg
[2023-01-23 12:21] LABS: HCT 34.4 % (36.0-46.0); HGB 11.4 g/dL (11.2-15.7); MCH 32.8 pg (27.0-33.0); MCHC 33.1 % (32.0-36.0); MCV 99 fL (80-95); MPV 9.2 fL (8.0-11.0); Platelet Count 342 10^3/uL (130-400); RBC 3.48 10^6/uL (3.93-5.22); RDW 12.2 % (11.7-14.6); RDW-SD 44.5 fL; WBC 12.79 10^3/uL (4.4-10.8)
[2023-01-23 12:47] LABS: Anion Gap 8.6 mmol/L (3-11); BUN 20 mg/dL (7-18); CO2 26.4 mmol/L (21.0-32.0); CREATININE 1.1 mg/dL (0.55-1.02); Calcium 9.5 mg/dL (8.5-10.1); Chloride 103 mmol/L (98-107); Estimated GFR 52.73 (mL/min/1.73m2); Glucose 99 mg/dL (74-106); NT-proBNP 313 pg/mL (<300); Potassium 3.9 mmol/L (3.5-5.1); Sodium 138 mmol/L (136-145); Troponin I < 50 ng/L (<or=60)
[2023-01-23 12:52] LABS: D-Dimer 730 ng/mlFEU (<500)
[2023-01-23 13:00] LABS: COVID-19 PCR Negative (Negative); Influenza A PCR Negative (Negative); Influenza B PCR Negative (Negative); RSV PCR Negative (Negative)
[2023-01-23 13:03] LABS: Source Nasopharynx
--- NOTE | 2023-01-23 13:27 | DI.RAD_ITS ---
Exam(s) XR PORTABLE CHEST AP EXAM: XR PORTABLE CHEST AP CLINICAL HISTORY: Shortness of breath TECHNIQUE: 2D digital imaging was performed of the chest. One image was obtained. An AP view was ob tained. COMPARISON: CR XR PORTABLE CHEST AP from 09/11/2020 FINDINGS: MEDIASTINUM: Normal. HEART: Normal. PULMONARY VASCULATURE: Normal. LUNGS: Stable pulmonary fibrotic changes are present. No focal consolidating infiltrates are seen. PLEURAL SPACE: No pleural effusion or pneumothorax. BONE:Within normal limits for the patient's age. Degenerative changes are seen in the shoulders bilat erally. OTHER FINDINGS:Normal. IMPRESSION: No acute pulmonary findings. DATA REPOSITORY: RADIATION DOSE DELIVERED:
[2023-01-23] MEDS: Doxycycline Hyclate 100 MG CAP PO (13:57)
[2023-01-23] MEDS: predniSONE 20 MG TAB 60 MG PO (13:57)
== END 2023-01-23 14:12 | disposition home or self-care (01) ==
PROVIDERS: Emergency Provider Emergency Medicine; PCP Nurse Practitioner Family
DX: J44.1 Chronic obstructive pulmonary disease with (acute) exacerbation (principal); I10 Essential (primary) hypertension; E03.9 Hypothyroidism, unspecified; Z87.891 Personal history of nicotine dependence; Z79.82 Long term (current) use of aspirin; Z86.16 Personal history of COVID-19; Z86.711 Personal history of pulmonary embolism; Z79.51 Long term (current) use of inhaled steroids; Z20.822 Contact with and (suspected) exposure to COVID-19
CPT/HCPCS: 36415; 80048; 82805; 85027; 87637; 93005; 93308; 94640; 99284; 71045; 83880; 84484; 85379; 93010; 99285; J7512; J7620

== ENCOUNTER 2023-01-30 18:15 | Outpatient (REF) | payer OTHER, SELFPAY ==
[2023-01-30 16:08] LABS: Vitamin B12 1692 pg/mL (193-986)
== END 2023-01-30 18:16 | disposition home or self-care (01) ==
LOC: NCHCN 18:15
PROVIDERS: PCP Nurse Practitioner Family; Visit Provider Nurse Practitioner Family
DX: D64.9 Anemia, unspecified (principal); J43.8 Other emphysema; Z79.899 Other long term (current) drug therapy
CPT/HCPCS: 82607

== ENCOUNTER 2023-02-28 16:12 | Outpatient (REF) | payer OTHER, SELFPAY ==
[2023-02-28 17:03] LABS: HCT 35.3 % (36.0-46.0); HGB 11.3 g/dL (11.2-15.7); MCH 32.9 pg (27.0-33.0); MCV 103 fL (80-95); Platelet Count 349 10^3/uL (130-400); RBC 3.43 10^6/uL (3.93-5.22); RDW 13.4 % (11.7-14.6); RDW-SD 50.9 fL; WBC 9.68 10^3/uL (4.4-10.8)
[2023-02-28 17:33] LABS: Anion Gap 9.3 mmol/L (3-11); BUN 14 mg/dL (7-18); CO2 27.7 mmol/L (21.0-32.0); CREATININE 1.1 mg/dL (0.55-1.02); Calcium 9.5 mg/dL (8.5-10.1); Chloride 102 mmol/L (98-107); Estimated GFR 52.73 (mL/min/1.73m2); Glucose 131 mg/dL (74-106); Magnesium 2.5 mg/dL (1.8-2.4); NT-proBNP 198 pg/mL (<300); Potassium 3.9 mmol/L (3.5-5.1); Sodium 139 mmol/L (136-145)
== END 2023-02-28 16:13 | disposition home or self-care (01) ==
LOC: NCHCN 16:12
PROVIDERS: PCP Nurse Practitioner Family; Visit Provider Nurse Practitioner Family
DX: R06.09 Other forms of dyspnea (principal); I27.20 Pulmonary hypertension, unspecified; I25.10 Atherosclerotic heart disease of native coronary artery without angina pectoris; R09.02 Hypoxemia
CPT/HCPCS: 80048; 85027; 83735; 83880

== ENCOUNTER 2023-03-24 08:05 | Outpatient (RCR) | payer OTHER, SELFPAY | END 2023-03-26 23:59 | disposition home or self-care (01) | LOC: CR 08:05 | PROVIDERS: PCP Nurse Practitioner Family; Visit Provider Internal Medicine Cardiovascular Disease | DX: J44.9 Chronic obstructive pulmonary disease, unspecified; I10 Essential (primary) hypertension | CPT/HCPCS: S9472 ==

== ENCOUNTER 2023-04-26 08:08 | Outpatient (RCR) | payer OTHER, SELFPAY | END 2023-04-26 23:59 | disposition home or self-care (01) | LOC: CR 08:08 | PROVIDERS: PCP Nurse Practitioner Family; Visit Provider Internal Medicine Cardiovascular Disease | DX: I35.0 Nonrheumatic aortic (valve) stenosis (principal); I65.22 Occlusion and stenosis of left carotid artery; Z95.4 Presence of other heart-valve replacement; Z51.89 Encounter for other specified aftercare | CPT/HCPCS: S9472 ==

== ENCOUNTER 2023-05-24 08:10 | Outpatient (RCR) | payer OTHER, SELFPAY | END 2023-05-26 23:59 | disposition home or self-care (01) | LOC: CR 08:10 | PROVIDERS: PCP Nurse Practitioner Family; Visit Provider Internal Medicine Cardiovascular Disease | DX: Z51.89 Encounter for other specified aftercare; I35.0 Nonrheumatic aortic (valve) stenosis; Z95.2 Presence of prosthetic heart valve | CPT/HCPCS: S9472 ==

== ENCOUNTER 2023-06-26 12:36 | Outpatient (RCR) | payer OTHER, SELFPAY | END 2023-06-26 23:59 | disposition home or self-care (01) | LOC: CR 12:36 | PROVIDERS: PCP Nurse Practitioner Family; Visit Provider Internal Medicine Cardiovascular Disease | DX: I35.0 Nonrheumatic aortic (valve) stenosis (principal); Z95.2 Presence of prosthetic heart valve; Z51.89 Encounter for other specified aftercare | CPT/HCPCS: S9472 ==

== ENCOUNTER 2023-06-30 08:46 | Emergency (ER) | payer OTHER, SELFPAY ==
[2023-06-30 08:51] VITALS: BP 124/94; PULSE 86; RESP 18; TEMP 36.4; O2SAT 100
[2023-06-30 09:04] VITALS: RESP 16
--- NOTE | 2023-06-30 09:19 | ED.GENADUL_ITS ---
Discharge Plan Disposition Patient Disposition: Home Discharge Details Clinical Impression: Hypertension Primary Care Provider: Vanita Churchill ED Provider: Markie Myers Home Meds and New Rx's Prescriptions: Continued bupropion HCl [Wellbutrin SR] 150 mg Tablet Sustained-Release 12 Hr 150 mg PO QAM citalopram [Celexa] 40 mg Tablet 40 mg PO DAILY ziprasidone HCl [Geodon] 20 mg Capsule 20 mg PO BID hydrocortisone 1 % Cream 1 applic TOPICAL BID PRN levothyroxine 50 mcg Tablet 50 mcg PO DAILY diphenhydramine HCl [Benadryl] 25 mg Capsule 50 mg PO HS ferrous sulfate [iron] 325 mg (65 mg iron) Tablet 28 mg PO DAILY (DME) nebulizers Misc MISCELLANEOUS nystatin 100,000 unit/gram Powder 1 applic TOPICAL TID rosuvastatin 20 mg Tablet 20 mg PO HS Zyrtec 10 mg Capsule 10 mg PO DAILY diclofenac sodium 1 % gel 4 gm TP QID PRN (Reason: left hip pain) 6 Days Qty: 100 11RF gabapentin 300 mg capsule 300 mg PO TID 90 Days Qty: 270 3RF Rx Instructions: no abrupt cessation ezetimibe [Zetia] 10 mg tablet 10 mg PO HS hydrochlorothiazide 25 mg tablet 25 mg PO DAILY benzonatate 100 mg capsule 100 mg PO TID PRN (Reason: cough) Qty: 14 0RF multivitamin [Daily Multi-Vitamin] 1 EACH tablet 1 tab PO DAILY aspirin 325 MG tablet 325 mg PO DAILY calcium carbonate-vitamin D3 1 EACH tablet 2 tab PO DAILY carboxymethylcellulose sodium [Refresh Tears] 30 ML drops 2 drp OU BID nystatin 15 GM cream 1 ea Topical TID cholecalciferol (vitamin D3) [Vitamin D3] 400 UNIT tablet 2,000 unit PO DAILY folic acid 0.8 MG tablet 0.8 mg PO DAILY Fortifeye 1 tab PO DAILY albuterol sulfate [ProAir HFA] 90 mcg/actuation Hfa Aerosol Inhaler 2 puff INHALATION PRN PRN doxycycline hyclate 100 mg capsule 100 mg PO BID Qty: 10 0RF fluticasone propionate [Flovent HFA] 110 mcg/actuation HFA aerosol inhaler 1 puff Inhalation BID guaifenesin [Mucinex] 600 mg Tablet Extended Release 12hr 600 mg PO Q12H PRN acetaminophen 325 mg tablet 650 mg PO BID amlodipine 5 mg tablet 10 mg PO 1XD amoxicillin 500 mg tablet 500 mg PO PRN PRN Patient Comments: Take 4 tablet by mouth single dose 1 hour prior to dental procedure metoprolol succinate 25 mg tablet extended release 24 hr 25 mg PO DAILY Qty: 7 0RF Discharge Instructions Instructions: Hypertension (ED) Additional Instructions: Please continue to take your medications as prescribed specifically be mindful of the amlodipine which per your [facility] discharge instructions was 10 mg daily and you have been given a paper prescription for your extended release metoprolol if it does not come in the mail today. Return the emergency department for any new or significant worsening of symptoms otherwise follow-up with your primary care provider for reassessment Referrals: Vanita Churchill [Primary Care Provider] - 1 week Discharge Data Discharge Date/Time-TO BE ENTERED AT DEPARTURE: 06/30/23 12:21 Medical Decision Making Patient presenting to the emergency department for chief complaint of elevated blood pressure. Patient was at cardiac rehab this morning when they took her blood pressure and noted it was elevated. 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 Patient states the headache is dull and achy without any other focal findings. Patient denies any chest pain, respiratory symptoms abdominal pain nausea vomiting dizziness. Patient did states she took her normal meds this morning including some acetaminophen for her headache. Physical exam is unremarkable and no focal neurological deficits are noted, normal cardiac exam, patient well in appearance with no signs of distress or e lela significant discomfort. Cardiac rehab did have blood pressure that was 200s over 90s. Initial triage here showed 124/94 but I also rechecked manual and had 202/92. I am I doubt and do not feel that patient's symptoms are consistent with hypertensive emergency. Further discussed patient's symptoms with her and she states that she had a elevated blood pressure at cardiac rehab on Monday with systolic being in the 170s. Also patient states that she believes either yesterday or today she ran out of her metoprolol which she ordered last week but has not come in from the pharmacy yet. She also had a discrepancy on her primary care paperwork saying that she was post to be on 10 of amlodipine instead of 5 which she has only been taking 5 mg daily. Reviewed [facility] discharge paperwork that does show 10 mg of amlodipine daily. Given patient's history of migraines with visual aura and her running out of her medications I feel this is more likely the cause compared to intercranial hemorrhage or other life-threatening neurological disease. I did utilize the [place] subarachnoid hemorrhage rule and patient score is 0 points increasing my suspicion that this is not a subarachnoid hemorrhage. We will give patient her metoprolol and 5 mg of amlodipine and observe before investigating symptoms any further given benign exam and presentation. Patient's pressure rechecked and virtually remains the same as prior to oral medication. Reassessed patient and patient states that she feels well and has no new or worsening symptoms. Shared decision-making was utilized and informed patient of potential neurological sources but very low suspicion that this is directly related to her blood pressure. After full discussion about further work-up versus monitoring we decided to wait 30 more minutes recheck pressure 1 additional time before final decision of more intense work-up due to her having a headache versus home observation. Recheck of blood pressure was 180/80. I feel very reassured with this. Patient also states reassurance and that her headache has fully resolved. I feel this is very reassuring and we will continue patient on 10 mg of amlodipine as per department discharge instructions and will give patient prescription for 7 days metoprolol cr . Patient placed on referral list to follow-up with primary care provider preferably in 1 week for recheck of blood pressure. After discussion of diagnosis and plan of care patient has no further needs, questions, or concerns and states clear understanding to return to the emergency department for any worsening symptoms. This documentation was generated using [employer] system, please disregard any oddities of phrase or misspellings. HPI General Mode of arrival: ambulatory . Date/Time Provider Initiated Documentation: 06/30/23 08:47 . Limitations to Documentation: no limitations . Information obtained by: patient and RN notes reviewed . History of Present Illness 72 year old F presents to the emergency department with the chief complaint of Elevated blood pressure-headache, described as moderate and similar to prior episodes, with intensity rated at 3. Quality is described as dull, and is localized to the head. Patient reports no radiation. Patient started experiencing this day(s) (4) and it has been constant. No relieving factors improve symptom(s), No exacerbating factors reported . Patient notes no other symptoms.. Patient did receive the following treatments prior to arrival, none Related Data Home Medications Medication Instructions Recorded Confirmed aspirin 325 mg tablet 325 mg PO DAILY 03/21/14 06/30/23 calcium carbonate 600 mg-vitamin 2 tab PO DAILY 03/21/14 06/30/23 D3 5 mcg (200 unit) tablet carboxymethylcellulose sodium 0.5 2 drp OU BID 03/21/14 06/30/23 % eye drops (Refresh Tears) cholecalciferol (vitamin D3) 10 2,000 unit PO DAILY 03/21/14 06/30/23 mcg (400 unit) tablet (Vitamin D3) folic acid 800 mcg tablet 0.8 mg PO DAILY 03/21/14 06/30/23 multivitamin (Daily Multi-Vitamin 1 tab PO DAILY 03/21/14 06/30/23 tablet) nystatin 100,000 unit/gram topical 1 ea topical TID 03/21/14 06/30/23 cream bupropion HCl 150 mg tablet,12 hr 150 mg PO QAM 05/20/20 06/30/23 sustained-release (Wellbutrin SR) cetirizine 10 mg capsule (Zyrtec) 10 mg PO DAILY 05/20/20 06/30/23 citalopram 40 mg tablet (Celexa) 40 mg PO DAILY 05/20/20 06/30/23 diphenhydramine HCl 25 mg capsule 50 mg PO HS 05/20/20 06/30/23 (Benadryl) ferrous sulfate 325 mg (65 mg 28 mg PO DAILY 05/20/20 06/30/23 iron) tablet (iron) hydrocortisone 1 % topical cream 1 applic topical BID PRN 05/20/20 06/30/23 levothyroxine 50 mcg tablet 50 mcg PO DAILY 05/20/20 06/30/23 nebulizers 05/20/20 06/30/23 nystatin 100,000 unit/gram topical 1 applic topical TID 05/20/20 06/30/23 powder rosuvastatin 20 mg tablet 20 mg PO HS 05/20/20 06/30/23 ziprasidone HCl 20 mg capsule 20 mg PO BID 05/20/20 06/30/23 (Geodon) diclofenac sodium 1 % topical gel 4 gm topical QID PRN left hip pain 05/28/20 06/30/23 6 days #100 grams gabapentin 300 mg capsule 300 mg PO TID 90 days #270 caps 05/28/20 06/30/23 guaifenesin 600 mg tablet, 600 mg PO Q12H PRN 09/11/20 06/30/23 extended release 12 hr (Mucinex) Fortifeye 1 tab PO DAILY 09/21/20 06/30/23 albuterol sulfate 90 mcg/actuation 2 puff inhalation PRN PRN 09/21/20 06/30/23 aerosol inhaler (ProAir HFA) acetaminophen 325 mg tablet 650 mg PO BID 02/16/22 06/30/23 ezetimibe 10 mg tablet (Zetia) 10 mg PO HS 02/16/22 06/30/23 fluticasone propionate 110 1 puff inhalation BID 02/16/22 06/30/23 mcg/actuation HFA aerosol inhaler (Flovent HFA) hydrochlorothiazide 25 mg tablet 25 mg PO DAILY 02/16/22 06/30/23 benzonatate 100 mg capsule 100 mg PO TID PRN cough #14 caps 01/06/23 06/30/23 doxycycline hyclate 100 mg capsule 100 mg PO BID #10 caps 01/23/23 06/30/23 amlodipine 5 mg tablet 10 mg PO 1XD 06/30/23 06/30/23 amoxicillin 500 mg tablet 500 mg PO PRN PRN 06/30/23 06/30/23 metoprolol succinate 25 mg 25 mg PO DAILY #7 tabs 06/30/23 tablet,extended release 24 hr Previous Rx's Medication Instructions Recorded diclofenac sodium 1 % topical gel 4 gm topical QID PRN left hip pain 05/28/20 6 days #100 grams gabapentin 300 mg capsule 300 mg PO TID 90 days #270 caps 05/28/20 benzonatate 100 mg capsule 100 mg PO TID PRN cough #14 caps 01/06/23 doxycycline hyclate 100 mg capsule 100 mg PO BID #10 caps 01/23/23 metoprolol succinate 25 mg 25 mg PO DAILY #7 tabs 06/30/23 tablet,extended release 24 hr Allergies Allergy/AdvReac Type Severity Reaction Status Date / Time cocoa butter Allergy Intermediate Verified 01/23/23 12:11 [From Preparation H] glycerin [From Preparation H] Allergy Intermediate Verified 01/23/23 12:11 latex Allergy Intermediate Skin Rash Verified 01/23/23 12:11 lisinopril Allergy Intermediate Verified 01/23/23 12:11 mineral oil* Allergy Intermediate Verified 01/23/23 12:11 [From Preparation H] petrolatum,white Allergy Intermediate Verified 01/23/23 12:11 [From Preparation H] phenylephrine Allergy Intermediate Verified 01/23/23 12:11 [From Preparation H] shark liver oil Allergy Intermediate Verified 01/23/23 12:11 [From Preparation H] bismuth subsalicylate Allergy Mild Verified 01/23/23 12:11 [From Kaopectate (bismuth subsalicy)] General Stated Complaint: GenMedical BLAIR: 3 Review of Systems Constitutional Constitutional: Denies body ache(s), Denies chills, Denies fever(s) and Reports headache(s) Eyes Eyes: Denies change in vision ENT Ears, Nose, Mouth, and Throat: Denies dizziness and Reports headache(s) Cardiovascular Cardiovascular: Denies chest pain and Denies syncope Gastrointestinal Gastrointestinal: Reports nausea and Reports vomiting Neurologic Neurologic: Reports as per HPI, Denies dizziness, Denies syncope, Reports headache(s), Denies localized weakness and Denies sensory deficit PFSH All Active Problems (Updated 06/30/23 @ 11:56 by Markie Myers NP) Hypertension (Chronic) Asymmetrical sensorineural hearing loss (Acute) Trochanteric bursitis, left hip (Acute) Sacroiliac joint dysfunction of left side (Acute) Sensorineural hearing loss of both ears (Acute) Imbalance (Acute) Medical History Anemia Arthritis, rheumatoid Back pain Bilateral carotid artery stenosis Cervical radiculopathy Cervicalgia Claudication Cough Depression Elevated creatine kinase level Emphysema of lung GERD (gastroesophageal reflux disease) Heart murmur Hematuria Hemorrhoids History of paroxysmal supraventricular tachycardia History of tobacco use Hyperlipidemia Hypertension Hypothyroidism IBS (irritable bowel syndrome) Macular degeneration Malaise and fatigue Obesity CHEMA (obstructive sleep apnea) Polyarthralgia Right bundle branch block Trochanteric bursitis of left hip Vertigo benign, postural Surgical History Status post insertion of iliac artery stent Social History Smoking/Tobacco Use Status: Former Tobacco Use Smoking risk assessment performed?: Yes Alcohol Intake: current Alcohol Intake frequency: holidays/special occasions only Drug use: Never Substance use type: does not use Household members: children Housing: house Number of Children: 2 number of grandchildren: 4 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 What type of physical activity do you participate in: independent ambulation and bicycling Do you feel safe at home: Yes Do you feel safe in your relationship?: Yes Additional Social history: quit smoking 24 yrs ago Exam Const General: cooperative, healthy appearing, no acute distress and well groomed Nutritional Appearance: average body habitus Orientation: alert, awake and oriented x3 Limitations: mental status not altered HENMT Head: normal to inspection Ears: hearing grossly normal bilaterally and TM's normal bilaterally Mouth: oral mucosae normal and moist mucous membranes Throat: posterior oropharynx normal Eyes Alignment and Position: alignment normal Periorbital: periorbital findings normal Eyelids: eyelids normal Sclera: sclerae normal Pupils: PERRL EOM: EOM intact bilaterally Neck Neck: normal visual inspection, full ROM and no meningeal signs Carotids: normal carotid upstroke and no bruits Chest Chest: normal inspection of the chest Resp Effort & Inspection: normal respiratory effort and able to speak in complete sentences Auscultation: clear to auscultation bilaterally Cardio Jugular venous pressure: no JVD Palpation: normal PMI Rate: regular rate Rhythm: regular rhythm Heart Sounds: S1 normal and S2 normal Bruits: no abdominal aortic bruits and no carotid bruits Pulses: radial pulses present bilaterally 2+ Skin General skin exam: no rashes or lesions noted Neuro General: patient alert, patient awake, patient oriented x3, gait normal, tone normal, moves all extremities, CN's II-XI intact bilaterally and not confused Cognition: normal cognition Speech: speech normal Motor: muscle tone normal throughout, strength 5/5 throughout, no pronator drift, no movement abnormalities noted and no fasciculations Sensory Exam: no sensory deficits noted Course Vital Signs Vital signs: Vital Signs Temperature 36.4 C 06/30/23 08:51 Pulse 86 06/30/23 08:51 Respiratory Rate 18 06/30/23 08:51 Blood Pressure 124/94 H 06/30/23 08:51 Pulse Oximetry 100 06/30/23 08:51 Temperature 36.4 C 06/30/23 08:51 Temperature Source Oral 06/30/23 08:51 Pulse 86 06/30/23 08:51 Respiratory Rate 16 06/30/23 09:04 Respiratory Effort Normal 06/30/23 09:04 Respiratory Depth Normal 06/30/23 09:04 Respiratory Pattern Normal 06/30/23 09:04 Blood Pressure 124/94 H 06/30/23 08:51 Blood Pressure Position Sitting 06/30/23 08:51 Pulse Oximetry 100 06/30/23 08:51 Oxygen Delivery Method Room Air 06/30/23 08:51 Oxygen Flow Rate 0 06/30/23 08:51 Pain Level 3 06/30/23 08:51
[2023-06-30] MEDS: amLODIPine 5 MG TAB PO (10:07)
[2023-06-30] MEDS: Metoprolol CR 25 MG TABCR PO (10:07)
[2023-06-30 10:59] VITALS: BP 225/85
[2023-06-30 11:04] VITALS: BP 200/90
[2023-06-30 11:38] VITALS: BP 180/80
--- NOTE | 2023-06-30 11:54 | NUR.NOTE ---
Nursing Note: PT needs follow up in one week with PCP to recheck hypertension. Yadira, ED
[2023-06-30 12:20] VITALS: BP 180/80; PULSE 67; RESP 16; TEMP 36.7; O2SAT 95
--- NOTE | 2023-07-03 10:13 | CMPROGNOTE_ITS ---
Date of service: 07/03/23 Time of Service: 10:13 Care Management Progress Note Progress Note Text Progress Note Text: CM faxed referral with ED note to PCP at [facility]. Requested follow up appointment within one week. PCP will contact pt directly.
== END 2023-06-30 12:21 | disposition home or self-care (01) ==
PROVIDERS: Emergency Provider Nurse Practitioner Family; PCP Nurse Practitioner Family
DX: R51.9 Headache, unspecified (principal); I10 Essential (primary) hypertension
CPT/HCPCS: 99283; 99284

== ENCOUNTER 2023-07-03 08:00 | Outpatient (RCR) | payer OTHER, SELFPAY | END 2023-07-27 23:59 | disposition home or self-care (01) | LOC: CR 08:00 | PROVIDERS: PCP Nurse Practitioner Family; Visit Provider Internal Medicine Cardiovascular Disease | DX: I35.0 Nonrheumatic aortic (valve) stenosis (principal); Z95.2 Presence of prosthetic heart valve; Z51.89 Encounter for other specified aftercare | CPT/HCPCS: S9472 ==

== ENCOUNTER 2023-07-19 12:36 | Outpatient (REF) | payer OTHER, SELFPAY ==
[2023-07-19 17:05] LABS: ESR 18 mm/hr (0-30)
[2023-07-19 22:03] LABS: CRP, High Sensitivity 0.86 mg/L (See Note)
== END 2023-07-19 12:37 | disposition home or self-care (01) ==
LOC: NCHCN 12:36
PROVIDERS: PCP Nurse Practitioner Family; Visit Provider Nurse Practitioner Family
DX: R51.9 Headache, unspecified (principal); I10 Essential (primary) hypertension
CPT/HCPCS: 85652; 86141

== ENCOUNTER 2023-07-24 10:27 | Day surgery (SDC) | payer OTHER, SELFPAY ==
--- NOTE | 2023-07-23 09:55 | W.PM.DSUDISC ---
Date of service: 07/24/23 Time of Service: 12:24 Discharge Plan Disposition Patient Disposition: Home Condition: Good Discharge Details Reason For Visit: Right-sided temporal artery biopsy Attending Provider: Micky Miller Primary Care Provider: Vanita Churchill Home Meds and New Rx's Prescriptions: Continued bupropion HCl [Wellbutrin SR] 150 mg Tablet Sustained-Release 12 Hr 150 mg PO QAM citalopram [Celexa] 40 mg Tablet 20 mg PO DAILY ziprasidone HCl [Geodon] 20 mg Capsule 20 mg PO BID hydrocortisone 1 % Cream 1 applic TOPICAL BID PRN levothyroxine 50 mcg Tablet 50 mcg PO DAILY diphenhydramine HCl [Benadryl] 25 mg Capsule 50 mg PO HS ferrous sulfate [iron] 325 mg (65 mg iron) Tablet 28 mg PO DAILY (DME) nebulizers Misc MISCELLANEOUS nystatin 100,000 unit/gram Powder 1 applic TOPICAL TID rosuvastatin 20 mg Tablet 20 mg PO HS Zyrtec 10 mg Capsule 10 mg PO DAILY diclofenac sodium 1 % gel 4 gm TP QID PRN (Reason: left hip pain) 6 Days Qty: 100 11RF gabapentin 300 mg capsule 300 mg PO TID 90 Days Qty: 270 3RF Rx Instructions: no abrupt cessation ezetimibe [Zetia] 10 mg tablet 10 mg PO HS hydrochlorothiazide 25 mg tablet 25 mg PO DAILY benzonatate 100 mg capsule 100 mg PO TID PRN (Reason: cough) Qty: 14 0RF multivitamin [Daily Multi-Vitamin] 1 EACH tablet 1 tab PO DAILY aspirin 325 MG tablet 325 mg PO DAILY calcium carbonate-vitamin D3 1 EACH tablet 2 tab PO DAILY carboxymethylcellulose sodium [Refresh Tears] 30 ML drops 2 drp OU BID nystatin 15 GM cream 1 ea Topical TID cholecalciferol (vitamin D3) [Vitamin D3] 400 UNIT tablet 2,000 unit PO DAILY folic acid 0.8 MG tablet 0.8 mg PO DAILY Fortifeye 1 tab PO DAILY albuterol sulfate [ProAir HFA] 90 mcg/actuation Hfa Aerosol Inhaler 2 puff INHALATION PRN PRN doxycycline hyclate 100 mg capsule 100 mg PO BID Qty: 10 0RF losartan 25 mg tablet 25 mg PO HS Patient Comments: TAKE ONE TABLET BY MOUTH EVERY DAY fluticasone propionate [Flovent HFA] 110 mcg/actuation HFA aerosol inhaler 1 puff Inhalation BID guaifenesin [Mucinex] 600 mg Tablet Extended Release 12hr 600 mg PO Q12H PRN acetaminophen 325 mg tablet 650 mg PO BID amlodipine 5 mg tablet 10 mg PO 1XD amoxicillin 500 mg tablet 500 mg PO PRN PRN Patient Comments: Take 4 tablet by mouth single dose 1 hour prior to dental procedure metoprolol succinate 25 mg tablet extended release 24 hr 25 mg PO DAILY Qty: 7 0RF Discharge Instructions Additional Instructions: Lindsey, We were able to complete the biopsy of your temporal artery without any difficulty, just like we talked about. You seemed pretty comfortable during the procedure, and I am glad that you are feeling okay. You have some absorbable stitches underneath of your skin, and the top layer of the skin is closed over with some surgical glue. It should be dry by the time that you get home. You can shower, and wash her hair just like you normally would. In the coming days, you do not need to do anything special with the incision. If you like to put some cream on it like vitamin D, aloe, Neosporin, or anything else, please feel free. However, none of those things have ever been shown to be very helpful with regards to surgical wound healing. We will see that some of the surgical glue will slowly start to wear away over the next week or 2. You can lay on the incision, or sleep on that side if that is most comfortable. We have made a routine follow-up appointment with you on August 02. In the meantime, keep an eye on the incision. You should be on the look out for changes in the skin that might suggest infection. This would be the skin turning to a dougherty red color, or discharge from the wound that is creamy or milk like. Do not be alarmed if there is some bruising in the area. That is very common. Similarly, the area may be a little bit tender over the next few days. Tylenol and ibuprofen are fine to use for pain. Heating pads and ice packs can also be used in the area if they help it feel better. If you find that the pain is increasing, and not improving with those interventions, please let me know. Otherwise, I look forward to seeing you on the . Activity:: Activity as Tolerated Remove Dressings/Wound Care:: 24 hours Shower/Bathe:: 24 hours Diet:: As Tolerated Discharge Orders Discharge Orders: Discharge Order (Routine); Ordered 07/23/23 Ordered By: Micky Miller DS: Diagnosis Discharge Diagnosis (1) Giant cell arteritis: Status: Acute Asessment and Plan: Follow-up on pathology results
--- NOTE | 2023-07-23 09:56 | W.PM.OP ---
Date of service: 07/24/23 Time of Service: 12:29 Operative Note Operative Note DATE OF PROCEDURE: 07/24/23 PRE-OP DIAGNOSIS: Giant cell arteritis POST-OP DIAGNOSIS: same PROCEDURE: Right-sided temporal artery biopsy SURGEON: Micky Miller ANESTHESIA TYPE: Local By Surgeon and MAC Refer to Anesthesia Record ESTIMATED BLOOD LOSS: 10 PATHOLOGY: other (Right temporal artery biopsy) COMPLICATIONS: None Patient was transported to: same day Indications: Natalie is a 72-year-old woman with new onset of right-sided temporoparietal and orbital headaches. She has had mild improvement after the initiation of prednisone Procedure Description: Prior to beginning the procedure, the correct diagnosis and side were reviewed with the patient. The temporal artery was palpated along its course. The hair was gently clipped, and the artery location was confirmed with hand-held Doppler ultrasonography. The site was then prepped and draped in the usual fashion. Next, I established a generous field block using lidocaine with epinephrine. I then incised the skin, and dissected down onto the temporal artery. The artery was quite small. Again, appropriate specimen was confirmed with Doppler ultrasound. Next, surrounding soft tissues were gently dissected away from the artery. Great care was taken to minimize handling and manipulation of the artery itself. Proximal and distal edges were then controlled with a hemostat, and a specimen approximately 1 cm long was excised. It was passed off the field and labeled appropriately. The ends of the artery were suture-ligated. Surgical site was examined. It was hemostatic. Was gently irrigated. Skin was approximated with subcuticular Monocryl stitches. And skin affix was used to dress the overlying skin. The patient was then transferred back to the recovery unit.
[2023-07-24 10:42] VITALS: BP 197/74; PULSE 65; RESP 16; TEMP 36.5; O2SAT 98
[2023-07-24] MEDS: Lactated Ringers 1,000 ML 80 ML IV (11:21)
[2023-07-24] MEDS: Gabapentin 300 MG CAP 600 MG PO (11:22)
[2023-07-24] MEDS: Acetaminophen 500 MG TAB 1000 MG PO (11:22)
--- NOTE | 2023-07-24 11:39 | ANES.PREOP_ITS ---
General Info Date of Service Date Performed: 07/24/23 Height: 5 ft 4.5 in Weight: 74.3 kg Body Mass Index (BMI): 27.6 Surgical Procedure: Operation Date: 07/24/23 12:10 Proposed Procedure Side Surgeon p Temporal Artery Biopsy Right Micky Miller MD Meds Allergies and Home Medications Allergies Allergy/AdvReac Type Severity Reaction Status Date / Time cocoa butter Allergy Intermediate Verified 07/21/23 15:11 [From Preparation H] glycerin [From Preparation H] Allergy Intermediate Verified 07/21/23 15:11 latex Allergy Intermediate Skin Rash Verified 07/21/23 15:11 lisinopril Allergy Intermediate Verified 07/21/23 15:11 mineral oil* Allergy Intermediate Verified 07/21/23 15:11 [From Preparation H] petrolatum,white Allergy Intermediate Verified 07/21/23 15:11 [From Preparation H] phenylephrine Allergy Intermediate Verified 07/21/23 15:11 [From Preparation H] shark liver oil Allergy Intermediate Verified 07/21/23 15:11 [From Preparation H] bismuth subsalicylate Allergy Mild Verified 07/21/23 15:11 [From Kaopectate (bismuth subsalicy)] Home Medication Medication Instructions Recorded aspirin 325 mg tablet 325 mg PO DAILY 03/21/14 calcium carbonate 600 mg-vitamin 2 tab PO DAILY 03/21/14 D3 5 mcg (200 unit) tablet carboxymethylcellulose sodium 0.5 2 drp OU BID 03/21/14 % eye drops (Refresh Tears) cholecalciferol (vitamin D3) 10 2,000 unit PO DAILY 03/21/14 mcg (400 unit) tablet (Vitamin D3) folic acid 800 mcg tablet 0.8 mg PO DAILY 03/21/14 multivitamin (Daily Multi-Vitamin 1 tab PO DAILY 03/21/14 tablet) nystatin 100,000 unit/gram topical 1 ea topical TID 03/21/14 cream bupropion HCl 150 mg tablet,12 hr 150 mg PO QAM 05/20/20 sustained-release (Wellbutrin SR) cetirizine 10 mg capsule (Zyrtec) 10 mg PO DAILY 05/20/20 citalopram 40 mg tablet (Celexa) 20 mg PO DAILY 05/20/20 diphenhydramine HCl 25 mg capsule 50 mg PO HS 06/24/20 (Benadryl) ferrous sulfate 325 mg (65 mg 28 mg PO DAILY 05/20/20 iron) tablet (iron) hydrocortisone 1 % topical cream 1 applic topical BID PRN 05/20/20 levothyroxine 50 mcg tablet 50 mcg PO DAILY 05/20/20 nebulizers 05/20/20 nystatin 100,000 unit/gram topical 1 applic topical TID 05/20/20 powder rosuvastatin 20 mg tablet 20 mg PO HS 05/20/20 ziprasidone HCl 20 mg capsule 20 mg PO BID 05/20/20 (Geodon) diclofenac sodium 1 % topical gel 4 gm topical QID PRN left hip pain 05/28/20 6 days #100 grams gabapentin 300 mg capsule 300 mg PO TID 90 days #270 caps 05/28/20 guaifenesin 600 mg tablet, 600 mg PO Q12H PRN 09/11/20 extended release 12 hr (Mucinex) Fortifeye 1 tab PO DAILY 09/21/20 albuterol sulfate 90 mcg/actuation 2 puff inhalation PRN PRN 09/21/20 aerosol inhaler (ProAir HFA) acetaminophen 325 mg tablet 650 mg PO BID 02/16/22 ezetimibe 10 mg tablet (Zetia) 10 mg PO HS 02/16/22 fluticasone propionate 110 1 puff inhalation BID 02/16/22 mcg/actuation HFA aerosol inhaler (Flovent HFA) hydrochlorothiazide 25 mg tablet 25 mg PO DAILY 02/16/22 benzonatate 100 mg capsule 100 mg PO TID PRN cough #14 caps 01/06/23 doxycycline hyclate 100 mg capsule 100 mg PO BID #10 caps 01/23/23 amlodipine 5 mg tablet 10 mg PO 1XD 06/30/23 amoxicillin 500 mg tablet 500 mg PO PRN PRN 06/30/23 metoprolol succinate 25 mg 25 mg PO DAILY #7 tabs 06/30/23 tablet,extended release 24 hr losartan 25 mg tablet 25 mg PO HS 07/21/23 Current Visit Medications: Current Medications Generic Name Dose Route Start Last Admin Trade Name Freq PRN Reason Stop Dose Admin Acetaminophen 1,000 mg 07/24/23 06:00 07/24/23 11:22 Acetaminophen 500 Mg Tab PO 08/20/23 23:59 1,000 mg PREOP GWYN Administration Gabapentin 600 mg 07/24/23 06:00 07/24/23 11:22 Gabapentin 300 Mg Cap PO 08/20/23 23:59 600 mg PREOP GWYN Administration Ringer's Solution 1,000 mls @ 80 mls/hr 07/24/23 06:00 07/24/23 11:21 IV 08/20/23 23:59 80 mls/hr INFUSION GWYN Administration IV Miscellaneous Supplies 1 each 07/24/23 06:00 Iv Access IV 08/20/23 23:59 DIRECTED GWYN Morphine Sulfate 2 mg 07/23/23 09:57 Morphine 4 Mg/Ml Syr IVP 08/22/23 09:56 Q1H PRN PRN Oxycodone HCl 5 mg 07/23/23 09:57 Oxycodone 5 Mg Tab PO 08/22/23 09:56 Q3H PRN PRN Pain Sodium Chloride 0 ml 07/24/23 06:00 Normal Saline Flush 10 Ml Syr IV 08/20/23 23:59 PRN PRN Sodium Chloride 0 ml 07/24/23 06:00 Normal Saline 10 Ml Vial IJ 08/20/23 23:59 DIRECTED PRN Sterile Water 0 ml 07/24/23 06:00 Water,Injection,Sterile 10 Ml Vial IJ 08/20/23 23:59 DIRECTED PRN PFSH Active Problems Active Problems: Problem Status Onset Code Giant cell arteritis M31.6 Imbalance R26.89 Sensorineural hearing loss of both ears H90.3 Sacroiliac joint dysfunction of left side M53.3 Trochanteric bursitis, left hip M70.62 Asymmetrical sensorineural hearing loss H90.3 Hypertension I10 Medical History Medical History Anemia Arthritis, rheumatoid Back pain Bilateral carotid artery stenosis Cervical radiculopathy Cervicalgia Claudication Cough Depression Elevated creatine kinase level Emphysema of lung GERD (gastroesophageal reflux disease) Heart murmur Hematuria Hemorrhoids History of paroxysmal supraventricular tachycardia History of tobacco use History of transcatheter aortic valve replacement (TAVR) 03/07/23 Hyperlipidemia Hypertension Hypothyroidism IBS (irritable bowel syndrome) Macular degeneration Malaise and fatigue Obesity CHEMA (obstructive sleep apnea) Polyarthralgia Right bundle branch block Trochanteric bursitis of left hip Vertigo benign, postural Surgical History Surgical History Status post insertion of iliac artery stent Tobacco Smoking/Tobacco Use Status: Former Tobacco Use Alcohol Alcohol Intake: current Alcohol intake frequency: holidays/special occasions only Substance Use Substance use: Never Substance use type: does not use Vital Signs and Lab Results Vital Signs Most Recent Vital Signs in EMR: Most Recent Vital Signs Temp Pulse Resp BP Pulse Ox 36.5 C 65 16 197/74 H 98 07/24/23 10:42 07/24/23 10:42 07/24/23 10:42 07/24/23 10:42 07/24/23 10:42 Lab Results Blood Type / Crossmatch: No Data to Display Complete Blood Count: No Data to Display Complete Metabolic Panel: 2 No Data to Display Liver Function Panel: No Data to Display Coagulation Panel: No Data to Display Cardiac Panel: No Data to Display Arterial Blood Gas: No Data to Display Venous Blood Gas: No Data to Display Pancreas Panel: No Data to Display Thyroid Panel: No Data to Display Infectious Disease: No Data to Display Blood Cultures: No Data to Display Toxicology Panel: No Data to Display Anesthesia Assessment and Plan Anesthesia History Personal History: No History of Anesthesia Complications Family History: No Family History of Anesthesia Complications Exercise Tolerance Exercise Tolerance: Metabolic Equivalents>4 Pertinent Negatives Pertinent Negatives: No Symptoms of GERD Cardiac & Pulmonary Exam Cardiac Exam: Normal S1/S2 Heart Sounds (Post TAVR) Pulmonary Exam: Clear Bilateral Breath Sounds Implantable Cardiac Device Does patient have a Pacemaker or an ICD?: No Airway Exam Known Difficult Airway: No Mallampati Class: 2 Mouth Opening: Normal (> 3cm) Thyromental Distance: Greater than 3 cm Neck Range of Motion: Full ROM Neck Circumference: Normal Teeth Condition: Normal Dentition ASA Classification ASA Score: ASA 3 Emergency Case?: No NPO Status NPO Status: NPO Clears >2 hours, Solids >8 hours Anesthesia Plan Resuscitation Status: Full Code Anesthesia Technique: MAC Anesthesia Airway Planned: Natural Airway Monitors Used: Standard Monitors
[2023-07-24 11:40] VITALS: BMI 27.6
[2023-07-24] MEDS: Lidocaine 1% Pres-Free W/EPI 1/200,000 30 ML VIAL (12:10)
--- NOTE | 2023-07-24 12:11 | ART_PTH ---
PATIENT: Lindsey Deleon LOC: [facility] U#:[id number] AGE/SX: 72/F ROOM: RE07/24/[address]: Micky Miller MD : [id number] BED: DIS: 07/24/2023 SPEC #: [id number] RECD: 07/24/23 13:22 STATUS: ALEXANDRA REQ #: [id number] MARIE: 07/24/23 12:[address]: Micky Miller DEPT: Surgical Specimen RECD BY: Lilian Horner ENTERED: 07/24/23 13:23 SP TYPE: Artery OTHR DR: Vanita Churchill Tissues: 1 - ARTERY BIOPSY Procedures: GROSS AND MICRO LEVEL 4 Comments: [id number]
[2023-07-24 12:20] VITALS: BP 169/69; PULSE 61; RESP 18; TEMP 36; O2SAT 94
[2023-07-24 12:40] VITALS: BP 162/65; PULSE 59; RESP 18; O2SAT 95
--- NOTE | 2023-07-24 17:22 | W.ANESPOSTOP ---
Postoperative Evaluation Date, Time and Location Date Performed: 07/24/23 Time Performed: 12:44 Patient Location: Day Surgery Unit Vital Signs Most Recent Imported Vital Signs: Most Recent Vital Signs Temp Pulse Resp BP Pulse Ox 36 C L 59 L 18 162/65 H 95 07/24/23 12:20 07/24/23 12:40 07/24/23 12:40 07/24/23 12:40 07/24/23 12:40 Pain Score Most Recent Pain Score: Most Recent Pain Score Pain Level 0 07/24/23 12:40 Assessment Mental Status: Awake (Alert & Oriented to Patient Baseline) Airway and Respiratory Function: Patent airway with normal (patient baseline) respiratory exam Cardiovascular Function: Hemodynamically Stable Hydration Status: Adequately Hydrated Nausea & Vomiting: No Nausea or Vomiting Pain: Pt. Denies Any Pain Peripheral Nerve Block: Patient did not receive a nerve block
== END 2023-07-24 12:55 | disposition home or self-care (01) ==
PROVIDERS: PCP Nurse Practitioner Family; Visit Provider Surgery
PROC: (CPT 37609; principal; 2023-07-24 12:00)
DX: M31.6 Other giant cell arteritis (principal); I77.89 Other specified disorders of arteries and arterioles
CPT/HCPCS: 37609; 88305; J2250

== ENCOUNTER 2023-08-08 11:52 | Emergency (ER) | payer OTHER, SELFPAY ==
[2023-08-08] VITALS (13 sets, daily range): BP systolic 137–172; BP diastolic 39–80; PULSE 53–70; RESP 11–28; TEMP 36.8; O2SAT 92–99
--- NOTE | 2023-08-08 11:45 | RT.EKG_ITS ---
APPROVED REPORT Exam: Resting ECG Reason for Exam: Chest Pain Patient Location: E HR:56 bpm ECG Measurements Heart Rate 56 AXIS DC 160 P 72 QRSd 140 QRS -96 QT 466 T 54 QTc 452 Conclusion Sinus bradycardia...rate< 60 RBBB and LAFB...QRSd >120mS, axis(-40,240) agree with above in addition, LAD. poor r wave progression. no STEMI, minor changes from previous
[2023-08-08 13:08] LABS: Abs Immature Grans 0.09 10^3/uL (0.0-0.06); Absolute Basophil Count 0.07 10^3/uL (0.0-0.2); Absolute Lymphocyte Count 1.57 10^3/uL (1.2-3.4); Absolute Neutrophil Count 10.72 10^3/uL (1.2-6.7); Basophils % 0.5; Eosinophils % 0.8; HCT 39.5 % (36.0-46.0); HGB 13.7 g/dL (11.2-15.7); Immature Grans % 0.7; Lymphocytes % 11.9; MCH 33.6 pg (27.0-33.0); MCHC 34.7 % (32.0-36.0); MCV 97 fL (80-95); MPV 9.6 fL (8.0-11.0); Monocytes % 5.1; Platelet Count 275 10^3/uL (130-400); RBC 4.08 10^6/uL (3.93-5.22); RDW 13.5 % (11.7-14.6); RDW-SD 47.9 fL; WBC 13.23 10^3/uL (4.4-10.8)
[2023-08-08] MEDS: Normal Saline 1,000 ML 500 ML IV (13:21)
[2023-08-08 13:33] LABS: ALT 33 U/L (14-59); AST 25 U/L (15-37); Albumin 3.4 g/dL (3.4-5.0); Alkaline Phosphatase 63 U/L (46-116); Anion Gap 8.8 mmol/L (3-11); BUN 29 mg/dL (7-18); Bilirubin, Total 0.3 mg/dL (0.2-1.0); CO2 29.2 mmol/L (21.0-32.0); CREATININE 2.1 mg/dL (0.55-1.02); Calcium 8.8 mg/dL (8.5-10.1); Chloride 101 mmol/L (98-107); Estimated GFR 24.27 (mL/min/1.73m2); Glucose 143 mg/dL (74-106); Potassium 3.4 mmol/L (3.5-5.1); Sodium 139 mmol/L (136-145); Troponin I < 50 ng/L (<or=60)
[2023-08-08 13:35] LABS: Absolute Eosinophil Count 0.11 10^3/uL (0.0-0.7); Absolute Monocyte Count 0.67 10^3/uL (0.1-0.8)
[2023-08-08 14:00] LABS: TSH 4.88 uIU/mL (0.36-3.74)
[2023-08-08 14:17] LABS: Bilirubin Negative (Negative); Blood Trace-intact (Negative); Clarity Clear (Clear); Glucose Negative (Negative); Ketones Negative (Negative); Leukocyte Esterase Negative (Negative); Nitrite Negative (Negative); Urobilinogen 0.2 mg/dL (Up to 0.2)
[2023-08-08 14:24] LABS: Bacteria Rare HPF (Negative); C & S Indicated? No; Casts 3-5 Hyaline LPF (Negative); Crystals Negative HPF (Negative); Epithelial Cells Rare HPF (Negative); Mucus Trace (Negative); WBC 0-2 HPF (0-5)
--- NOTE | 2023-08-08 14:54 | ED.GENADUL_ITS ---
Discharge Plan Disposition Patient Disposition: Home Discharge Details Clinical Impression: Acute renal insufficiency, Pre-syncope Primary Care Provider: Vanita Churchill ED Provider: Lilian Jolly Home Meds and New Rx's Prescriptions: Continued bupropion HCl [Wellbutrin SR] 150 mg Tablet Sustained-Release 12 Hr 150 mg PO QAM citalopram [Celexa] 40 mg Tablet 20 mg PO DAILY ziprasidone HCl [Geodon] 20 mg Capsule 20 mg PO BID hydrocortisone 1 % Cream 1 applic TOPICAL BID PRN levothyroxine 50 mcg Tablet 50 mcg PO DAILY diphenhydramine HCl [Benadryl] 25 mg Capsule 50 mg PO HS ferrous sulfate [iron] 325 mg (65 mg iron) Tablet 28 mg PO DAILY (DME) nebulizers Misc MISCELLANEOUS nystatin 100,000 unit/gram Powder 1 applic TOPICAL TID rosuvastatin 20 mg Tablet 20 mg PO HS Zyrtec 10 mg Capsule 10 mg PO DAILY diclofenac sodium 1 % gel 4 gm TP QID PRN (Reason: left hip pain) 6 Days Qty: 100 11RF gabapentin 300 mg capsule 300 mg PO TID 90 Days Qty: 270 3RF Rx Instructions: no abrupt cessation ezetimibe [Zetia] 10 mg tablet 10 mg PO HS hydrochlorothiazide 25 mg tablet 25 mg PO DAILY benzonatate 100 mg capsule 100 mg PO TID PRN (Reason: cough) Qty: 14 0RF prednisone 20 mg tablet 40 mg PO DAILY multivitamin [Daily Multi-Vitamin] 1 EACH tablet 1 tab PO DAILY aspirin 325 MG tablet 325 mg PO DAILY calcium carbonate-vitamin D3 1 EACH tablet 2 tab PO DAILY carboxymethylcellulose sodium [Refresh Tears] 30 ML drops 2 drp OU BID nystatin 15 GM cream 1 ea Topical TID cholecalciferol (vitamin D3) [Vitamin D3] 400 UNIT tablet 2,000 unit PO DAILY folic acid 0.8 MG tablet 0.8 mg PO DAILY Fortifeye 1 tab PO DAILY albuterol sulfate [ProAir HFA] 90 mcg/actuation Hfa Aerosol Inhaler 2 puff INHALATION PRN PRN doxycycline hyclate 100 mg capsule 100 mg PO BID Qty: 10 0RF losartan 25 mg tablet 25 mg PO HS Patient Comments: TAKE ONE TABLET BY MOUTH EVERY DAY fluticasone propionate [Flovent HFA] 110 mcg/actuation HFA aerosol inhaler 1 puff Inhalation BID guaifenesin [Mucinex] 600 mg Tablet Extended Release 12hr 600 mg PO Q12H PRN acetaminophen 325 mg tablet 650 mg PO BID amlodipine 5 mg tablet 10 mg PO 1XD amoxicillin 500 mg tablet 500 mg PO PRN PRN Patient Comments: Take 4 tablet by mouth single dose 1 hour prior to dental procedure metoprolol succinate 25 mg tablet extended release 24 hr 25 mg PO DAILY Qty: 7 0RF Discharge Instructions Instructions: Near Syncope (ED) Additional Instructions: Please follow-up with your primary care physician regarding your kidney functi on, make sure you have at least eight 8 ounce glasses of water daily Stay away from taking the Mucinex for now recheck with pcp this week at least 8, 8 oz glasses of water daily Return with recurrence of symptoms, or with any new or progressing complaints Referrals: Vanita Churchill [Primary Care Provider] - Discharge Data Discharge Date/Time-TO BE ENTERED AT DEPARTURE: 08/08/23 16:36 Medical Decision Making 72-year-old female presents via EMS for report of lightheadedness and hypotension On exam, she is alert, oriented, stable vitals, nonfocal neurological exam, negative [id number], negative heel spear, cranial nerves II 12 intact, fully alert and oriented, pupils equal round reactive to light and accommodation, lungs clear to auscultation, cardiac rate rhythm regular, no peripheral edema, distal pulses intact, moist mucous membranes Secondary to age and reported complaints, full diagnostic work-up with labs and EKG was ordered, patient received IV fluid hydration, of note, her creatinine has increased from 1.1-2.1, suspect this is dehydration as her BUN is also elevated which is new for her Will give 1.5 L of NS, will recheck BMP to see if she is fluid responsive She is ambulatory with steady gait, her orthostatics are negative and she is feeling marked improvement, I think she stable for discharge home at this time and will need close outpatient reassessment with her primary care physician, I did consider adrenal component, however she is on an appropriate prednisone taper this is not an abrupt withdrawal of prednisone She was able to give a urinalysis, 250 cc, no evidence of infection Patient has mild leukocytosis, this is likely steroid-induced no evidence of infectious etiology at this time TSH mildly elevated, will need follow-up with primary care physician, initial troponin negative, EKG without acute abnormality On reassessment, patient has to leave and is refusing redraw of BMP, she will need close outpatient reassessment with her doctor regarding her renal insufficiency Discharged home alert and oriented, of decisional capacity, in no acute distress HPI General Date/Time Provider Initiated Documentation: 08/08/23 12:25 . HPI Narrative: 72-year-old female presents with report of some fatigue this morning when she awoke having nausea and lightheadedness, she felt that she may pass out. She states she is taking prednisone out of concern for giant cell arteritis, however biopsy was reportedly negative and she is tapering off the prednisone, sent 10 mg now. She denies any chest pain, shortness of breath. She has any palpitations. She has history of similar symptoms in the past. She did take Mucinex DM last evening but denies any additional medications. She states her symptoms have completely resolved at this time. She denies any speech or sensation change, headaches, or any additional complaints at this time. Related Data Home Medications Medication Instructions Recorded Confirmed aspirin 325 mg tablet 325 mg PO DAILY 03/21/14 08/08/23 calcium carbonate 600 mg-vitamin 2 tab PO DAILY 03/21/14 08/08/23 D3 5 mcg (200 unit) tablet carboxymethylcellulose sodium 0.5 2 drp OU BID 03/21/14 08/08/23 % eye drops (Refresh Tears) cholecalciferol (vitamin D3) 10 2,000 unit PO DAILY 03/21/14 08/08/23 mcg (400 unit) tablet (Vitamin D3) folic acid 800 mcg tablet 0.8 mg PO DAILY 03/21/14 08/08/23 multivitamin (Daily Multi-Vitamin 1 tab PO DAILY 03/21/14 08/08/23 tablet) nystatin 100,000 unit/gram topical 1 ea topical TID 03/21/14 08/08/23 cream bupropion HCl 150 mg tablet,12 hr 150 mg PO QAM 05/20/20 08/08/23 sustained-release (Wellbutrin SR) cetirizine 10 mg capsule (Zyrtec) 10 mg PO DAILY 05/20/20 08/08/23 citalopram 40 mg tablet (Celexa) 20 mg PO DAILY 05/20/20 08/08/23 diphenhydramine HCl 25 mg capsule 50 mg PO HS 05/20/20 08/08/23 (Benadryl) ferrous sulfate 325 mg (65 mg 28 mg PO DAILY 05/20/20 08/08/23 iron) tablet (iron) hydrocortisone 1 % topical cream 1 applic topical BID PRN 05/20/20 08/08/23 levothyroxine 50 mcg tablet 50 mcg PO DAILY 05/20/20 08/08/23 nebulizers 05/20/20 08/08/23 nystatin 100,000 unit/gram topical 1 applic topical TID 05/20/20 08/08/23 powder rosuvastatin 20 mg tablet 20 mg PO HS 05/20/20 08/08/23 ziprasidone HCl 20 mg capsule 20 mg PO BID 05/20/20 08/08/23 (Geodon) diclofenac sodium 1 % topical gel 4 gm topical QID PRN left hip pain 05/28/20 08/08/23 6 days #100 grams gabapentin 300 mg capsule 300 mg PO TID 90 days #270 caps 05/28/20 08/08/23 guaifenesin 600 mg tablet, 600 mg PO Q12H PRN 09/11/20 08/08/23 extended release 12 hr (Mucinex) Fortifeye 1 tab PO DAILY 09/21/20 08/08/23 albuterol sulfate 90 mcg/actuation 2 puff inhalation PRN PRN 09/21/20 08/08/23 aerosol inhaler (ProAir HFA) acetaminophen 325 mg tablet 650 mg PO BID 02/16/22 08/08/23 ezetimibe 10 mg tablet (Zetia) 10 mg PO HS 02/16/22 08/08/23 fluticasone propionate 110 1 puff inhalation BID 02/16/22 08/08/23 mcg/actuation HFA aerosol inhaler (Flovent HFA) hydrochlorothiazide 25 mg tablet 25 mg PO DAILY 02/16/22 08/08/23 benzonatate 100 mg capsule 100 mg PO TID PRN cough #14 caps 01/06/23 08/08/23 doxycycline hyclate 100 mg capsule 100 mg PO BID #10 caps 01/23/23 08/08/23 amlodipine 5 mg tablet 10 mg PO 1XD 06/30/23 08/08/23 amoxicillin 500 mg tablet 500 mg PO PRN PRN 06/30/23 08/08/23 metoprolol succinate 25 mg 25 mg PO DAILY #7 tabs 06/30/23 08/08/23 tablet,extended release 24 hr losartan 25 mg tablet 25 mg PO HS 07/21/23 08/08/23 prednisone 20 mg tablet 40 mg PO DAILY 08/02/23 08/08/23 Previous Rx's Medication Instructions Recorded diclofenac sodium 1 % topical gel 4 gm topical QID PRN left hip pain 05/28/20 6 days #100 grams gabapentin 300 mg capsule 300 mg PO TID 90 days #270 caps 05/28/20 benzonatate 100 mg capsule 100 mg PO TID PRN cough #14 caps 01/06/23 doxycycline hyclate 100 mg capsule 100 mg PO BID #10 caps 01/23/23 metoprolol succinate 25 mg 25 mg PO DAILY #7 tabs 06/30/23 tablet,extended release 24 hr Allergies Allergy/AdvReac Type Severity Reaction Status Date / Time cocoa butter Allergy Intermediate Verified 08/02/23 08:15 [From Preparation H] glycerin [From Preparation H] Allergy Intermediate Verified 08/02/23 08:15 latex Allergy Intermediate Skin Rash Verified 08/02/23 08:15 lisinopril Allergy Intermediate Verified 08/02/23 08:15 mineral oil* Allergy Intermediate Verified 08/02/23 08:15 [From Preparation H] petrolatum,white Allergy Intermediate Verified 08/02/23 08:15 [From Preparation H] phenylephrine Allergy Intermediate Verified 08/02/23 08:15 [From Preparation H] shark liver oil Allergy Intermediate Verified 08/02/23 08:15 [From Preparation H] bismuth subsalicylate Allergy Mild Verified 08/02/23 08:15 [From Kaopectate (bismuth subsalicy)] General Stated Complaint: Dizzy/Sync BLAIR: 3 PFSH All Active Problems (Updated 08/08/23 @ 15:28 by RITA Avilez) Acute renal insufficiency (Acute) Pre-syncope (Acute) Giant cell arteritis (Acute) Imbalance (Acute) Sensorineural hearing loss of both ears (Acute) Sacroiliac joint dysfunction of left side (Acute) Trochanteric bursitis, left hip (Acute) Asymmetrical sensorineural hearing loss (Acute) Medical History (Updated 08/08/23 @ 15:28 by RITA Avilez) Anemia Arthritis, rheumatoid Back pain Bilateral carotid artery stenosis Cervical radiculopathy Cervicalgia Claudication Cough Depression Elevated creatine kinase level Emphysema of lung GERD (gastroesophageal reflux disease) Heart murmur Hematuria Hemorrhoids History of paroxysmal supraventricular tachycardia History of tobacco use History of transcatheter aortic valve replacement (TAVR) 03/07/23 Hyperlipidemia Hypertension Hypothyroidism IBS (irritable bowel syndrome) Macular degeneration Malaise and fatigue Obesity CHEMA (obstructive sleep apnea) Polyarthralgia Right bundle branch block Trochanteric bursitis of left hip Vertigo benign, postural Surgical History (Updated 07/24/23 @ 14:57 by Concepción Whitaker) History of temporal artery biopsy (~06/2023) Status post insertion of iliac artery stent Social History Smoking/Tobacco Use Status: Former Tobacco Use Quit Date: 11/27/02 Smoking risk assessment performed?: Yes Alcohol Intake: current Alcohol Intake frequency: holidays/special occasions only Drug use: Never Substance use type: does not use Household members: children Housing: house Number of Children: 2 number of grandchildren: 4 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 Current gender identity: female What type of physical activity do you participate in: independent ambulation and bicycling Do you feel safe at home: Yes Do you feel safe in your relationship?: Yes Additional Social history: quit smoking 24 yrs ago Course Vital Signs Vital signs: Vital Signs Temperature 36.8 C 08/08/23 11:53 Pulse 60 08/08/23 11:53 Respiratory Rate 20 08/08/23 11:53 Blood Pressure 150/57 H 08/08/23 11:53 Pulse Oximetry 95 08/08/23 11:53 Temperature 36.8 C 08/08/23 11:53 Temperature Source Oral 08/08/23 11:53 Pulse 62 08/08/23 12:37 Pulse 63 08/08/23 12:40 Respiratory Rate 15 08/08/23 12:40 Respiratory Effort Normal, Non-Labored 08/08/23 11:59 Blood Pressure 150/66 H 08/08/23 12:37 Blood Pressure Mean 97 08/08/23 12:37 Blood Pressure Position Supine 08/08/23 11:53 Pulse Oximetry 96 08/08/23 12:37 Oxygen Delivery Method Room Air 08/08/23 11:53 Oxygen Flow Rate 0 08/08/23 11:53 Pain Level 0 08/08/23 11:53 Lab/Test Results Lab/Test Results: Laboratory Tests Range/Units 08/08/23 08/08/23 08/08/23 12:00 12:00 12:00 WBC (4.4-10.8) 10^3/uL 13.23 H RBC (3.93-5.22) 10^6/uL 4.08 Hgb (11.2-15.7) g/dL 13.7 Hct (36.0-46.0) % 39.5 MCV (80-95) fL 97 H MCH (27.0-33.0) pg 33.6 H MCHC (32.0-36.0) % 34.7 RDW (11.7-14.6) % 13.5 Plt Count (130-400) 10^3/uL 275 MPV (8.0-11.0) fL 9.6 Immature Gran % 0.7 Neutrophils % 81.0 Lymphocytes % 11.9 Monocytes % 5.1 Eosinophils % 0.8 Basophils % 0.5 Nucleated RBC % (0.0-0.3) % 0.0 Absolute Neutrophils (1.2-6.7) 10^3/uL 10.72 H Absolute Lymphocytes (1.2-3.4) 10^3/uL 1.57 Absolute Monocytes (0.1-0.8) 10^3/uL 0.67 Absolute Eosinophils (0.0-0.7) 10^3/uL 0.11 Absolute Basophils (0.0-0.2) 10^3/uL 0.07 Sodium (136-145) mmol/L 139 Potassium (3.5-5.1) mmol/L 3.4 L Chloride (98-107) mmol/L 101 Carbon Dioxide (21.0-32.0) mmol/L 29.2 Anion Gap (3-11) mmol/L 8.8 BUN (7-18) mg/dL 29 H Creatinine (0.55-1.02) mg/dL 2.1 H Est GFR (CKD-EPI 2020) (mL/min/1.73m2) 24.27 Glucose (74-106) mg/dL 143 H Calcium (8.5-10.1) mg/dL 8.8 Magnesium (1.8-2.4) mg/dL 3.0 H Total Bilirubin (0.2-1.0) mg/dL 0.3 AST (15-37) U/L 25 ALT (14-59) U/L 33 Alkaline Phosphatase (46-116) U/L 63 Troponin I (<or=60) ng/L < 50 Total Protein (6.4-8.2) g/dL 7.0 Albumin (3.4-5.0) g/dL 3.4 TSH Cancelled 4.88 H Urine Color (Yellow) Urine Clarity (Clear) Urine pH (5-8) Ur Specific [place] (1.005-1.025) Urine Protein (Negative) mg/dL Urine Ketones (Negative) mg/dL Urine Blood (Negative) Urine Nitrite (Negative) Urine Bilirubin (Negative) Urine Urobilinogen (Up to 0.2) mg/dL Ur Leukocyte Esterase (Negative) Urine RBC (0-2) HPF Urine WBC (0-5) HPF Ur Epithelial Cells (Negative) HPF Urine Crystals (Negative) HPF Urine Bacteria (Negative) HPF Urine Casts (Negative) LPF Urine Mucus (Negative) Ur Culture Indicated? Urine Glucose (Negative) mg/dL Range/Units 08/08/23 14:02 WBC (4.4-10.8) 10^3/uL RBC (3.93-5.22) 10^6/uL Hgb (11.2-15.7) g/dL Hct (36.0-46.0) % MCV (80-95) fL MCH (27.0-33.0) pg MCHC (32.0-36.0) % RDW (11.7-14.6) % Plt Count (130-400) 10^3/uL MPV (8.0-11.0) fL Immature Gran % Neutrophils % Lymphocytes % Monocytes % Eosinophils % Basophils % Nucleated RBC % (0.0-0.3) % Absolute Neutrophils (1.2-6.7) 10^3/uL Absolute Lymphocytes (1.2-3.4) 10^3/uL Absolute Monocytes (0.1-0.8) 10^3/uL Absolute Eosinophils (0.0-0.7) 10^3/uL Absolute Basophils (0.0-0.2) 10^3/uL Sodium (136-145) mmol/L Potassium (3.5-5.1) mmol/L Chloride (98-107) mmol/L Carbon Dioxide (21.0-32.0) mmol/L Anion Gap (3-11) mmol/L BUN (7-18) mg/dL Creatinine (0.55-1.02) mg/dL Est GFR (CKD-EPI 2020) (mL/min/1.73m2) Glucose (74-106) mg/dL Calcium (8.5-10.1) mg/dL Magnesium (1.8-2.4) mg/dL Total Bilirubin (0.2-1.0) mg/dL AST (15-37) U/L ALT (14-59) U/L Alkaline Phosphatase (46-116) U/L Troponin I (<or=60) ng/L Total Protein (6.4-8.2) g/dL Albumin (3.4-5.0) g/dL TSH Urine Color (Yellow) Yellow Urine Clarity (Clear) Clear Urine pH (5-8) 7.0 Ur Specific [place] (1.005-1.025) 1.020 Urine Protein (Negative) mg/dL 100 H Urine Ketones (Negative) mg/dL Negative Urine Blood (Negative) Trace-intact H Urine Nitrite (Negative) Negative Urine Bilirubin (Negative) Negative Urine Urobilinogen (Up to 0.2) mg/dL 0.2 Ur Leukocyte Esterase (Negative) Negative Urine RBC (0-2) HPF 3-5 H Urine WBC (0-5) HPF 0-2 Ur Epithelial Cells (Negative) HPF Rare Urine Crystals (Negative) HPF Negative Urine Bacteria (Negative) HPF Rare Urine Casts (Negative) LPF 3-5 Hyaline Urine Mucus (Negative) Trace Ur Culture Indicated? No Urine Glucose (Negative) mg/dL Negative
--- NOTE | 2023-08-08 16:52 | NUR.NOTE ---
Referral faxed to PCP for renal insufficiency for this week.Nursing Note:
== END 2023-08-08 16:36 | disposition home or self-care (01) ==
PROVIDERS: Emergency Provider Physician Assistant; PCP Nurse Practitioner Family
DX: R55 Syncope and collapse (principal); N28.89 Other specified disorders of kidney and ureter; R00.1 Bradycardia, unspecified; I45.2 Bifascicular block; M06.9 Rheumatoid arthritis, unspecified; I10 Essential (primary) hypertension; E78.5 Hyperlipidemia, unspecified; Z79.82 Long term (current) use of aspirin; Z87.891 Personal history of nicotine dependence
CPT/HCPCS: 80048; 80053; 93005; 99283; 81003; 81015; 83735; 84443; 84484; 85025; 93010

== ENCOUNTER 2023-08-17 21:43 | Outpatient (REF) | payer OTHER, SELFPAY ==
[2023-08-17 15:21] LABS: Anion Gap 8.3 mmol/L (3-11); BUN 22 mg/dL (7-18); CO2 29.7 mmol/L (21.0-32.0); CREATININE 1.8 mg/dL (0.55-1.02); Calcium 9.8 mg/dL (8.5-10.1); Chloride 100 mmol/L (98-107); Glucose 113 mg/dL (74-106); Potassium 3.8 mmol/L (3.5-5.1); Sodium 138 mmol/L (136-145)
== END 2023-08-17 21:44 | disposition home or self-care (01) ==
LOC: NCHCN 21:43
PROVIDERS: PCP Nurse Practitioner Family; Visit Provider Nurse Practitioner Family
DX: I10 Essential (primary) hypertension (principal)
CPT/HCPCS: 80048

== ENCOUNTER 2023-08-22 17:57 | Outpatient (REF) | payer OTHER, SELFPAY ==
[2023-08-22 16:55] LABS: Anion Gap 10.6 mmol/L (3-11); BUN 18 mg/dL (7-18); CO2 26.4 mmol/L (21.0-32.0); CREATININE 1.7 mg/dL (0.55-1.02); Calcium 9.5 mg/dL (8.5-10.1); Chloride 99 mmol/L (98-107); Estimated GFR 31.27 (mL/min/1.73m2); Glucose 124 mg/dL (74-106); Potassium 3.5 mmol/L (3.5-5.1); Sodium 136 mmol/L (136-145)
== END 2023-08-22 17:58 | disposition home or self-care (01) ==
LOC: NCHCN 17:57
PROVIDERS: PCP Nurse Practitioner Family; Visit Provider Nurse Practitioner Family
DX: I27.20 Pulmonary hypertension, unspecified (principal)
CPT/HCPCS: 80048

== ENCOUNTER 2023-09-11 22:23 | Outpatient (REF) | payer OTHER, SELFPAY ==
[2023-09-11 20:33] LABS: ALT 23 U/L (14-59); AST 23 U/L (15-37); Albumin 3.6 g/dL (3.4-5.0); Alkaline Phosphatase 87 U/L (46-116); Anion Gap 9.2 mmol/L (3-11); BUN 21 mg/dL (7-18); Bilirubin, Total 0.3 mg/dL (0.2-1.0); CO2 27.8 mmol/L (21.0-32.0); CREATININE 1.6 mg/dL (0.55-1.02); Calcium 9.4 mg/dL (8.5-10.1); Chloride 97 mmol/L (98-107); Creatine Kinase 72 U/L (26-192); Estimated GFR 33.63 (mL/min/1.73m2); Glucose 128 mg/dL (74-106); HDL Cholesterol 49 mg/dL (40-60); LDL CHOLESTEROL 66 mg/dL (<100); Sodium 134 mmol/L (136-145); Total Protein 8.1 g/dL (6.4-8.2)
== END 2023-09-11 22:24 | disposition home or self-care (01) ==
LOC: NCHCN 22:23
PROVIDERS: PCP Nurse Practitioner Family; Visit Provider Nurse Practitioner Family
DX: I73.9 Peripheral vascular disease, unspecified (principal); N28.9 Disorder of kidney and ureter, unspecified
CPT/HCPCS: 80053; 82550; 83721; 83718

== ENCOUNTER → 2023-09-28 01:33 | Outpatient (CLI) | payer OTHER, SELFPAY ==
--- NOTE | 2023-09-28 | DI.MRI_ITS ---
Exam(s) MR BRAIN WO EXAM: MR BRAIN WO CLINICAL HISTORY: NEW HEADACHE,R51.9, H/O MIGRAINES TECHNIQUE: Multiplanar multisequence MRI of the brain was performed. COMPARISON: CT HEAD WITHOUT CONTRAST from 08/26/2010 FINDINGS: The examination is limited due to patient motion artifact. VENTRICLES AND EXTRA AXIAL SPACES: Normal in size and morphology for the patient's age. MIDLINE SHIFT: None. CEREBRAL PARENCHYMA: No focus of restricted diffusion to suggest acute infarct. No space-occupying le josé antonio identified. There are areas of hyperintense signal seen in the white matter on the FLAIR and T2 weighted images most consistent with small vessel ischemic disease. HEMORRHAGE: None. BRAINSTEM/CEREBELLUM: Normal. CALVARIUM: Normal. VISUALIZED PARANASAL SINUSES/MASTOIDS:Clear. [place]: Normal flow void. PITUITARY GLAND: Unremarkable. OTHER FINDINGS: None. IMPRESSION: 1. Age-related small vessel ischemic disease in cerebral atrophy. 2. No evidence of an acute infarct. DATA REPOSITORY:
== END ==
PROVIDERS: PCP Nurse Practitioner Family; Visit Provider Nurse Practitioner Family
DX: R51.9 Headache, unspecified (principal)
CPT/HCPCS: 70551

== ENCOUNTER → 2023-11-22 00:53 | Outpatient (CLI) | payer OTHER, SELFPAY ==
--- NOTE | 2023-11-22 | DI.MAMMO_ITS ---
Exam(s) MAMMO SCREENING EXAM: MAMMO SCREENING CLINICAL HISTORY: SCREENING, Z12.31. TECHNIQUE: Bilateral full field digital CC and MLO mammographic images were obtained with 3D tomosyn thesis and utilizing computer aided detection (CAD). COMPARISON: Prior mammograms were reviewed. FINDINGS: There has been no significant change in the appearance and distribution of the fibroglandular tissue. There are no new spiculated masses nor malignant appearing microcalcification groups. There is no significant architectural distortion nor skin thickening-retraction. IMPRESSION: No radiographic evidence of malignancy. BI-RADS Category 1 - Negative Breast Density - Category B - Scattered areas of fibroglandular density Breast density Category C or D implies that the patient has dense breast tissue. Dense breast tissue can make it harder to find cancer on a mammogram. Dense breast tissue is also associated with an incr eased risk of breast cancer. This information about the result of the mammogram report was provided to the patient to raise their awareness. Use this report when you speak with the patient about their risks for breast cancer, which includes their family history. At that time, you may recommend additional screening tests (Ultrasoun d or MRI) as these tests may add significant information. A negative radiographic report should not delay biopsy if a dominant or clinically suspicious mass is present. Up to ten percent of cancers are not identified on mammography. A negative report may reinforce clinical impression. Adenosis and dense breasts may obscure an underlying neoplasm. False positive reports average 6 to 10%. Patient will receive a letter notifying them of these results.
--- OUTSIDE RECORDS SUMMARY | 2023-11-22 01:04 | XMS_ITS | Continuity of Care Document ---
Author Name Unknown Organization [facility] Address [address] [place] [id number] Care Team Providers Care Turkish Rubber Name Role Phone KHUSHBU BOWMAN Primary Care Physician Encounter [facility] NBR [id number] Date(s): 12/12/22 - 12/12/[address] [id number] Encounter Diagnosis Other forms of dyspnea(Final) - Nonrheumatic aortic (valve) stenosis(Final) - Discharge Disposition: Home or Self Care Attending Physician: Milo Salvador MD, FACC, FACP, FASNC, FASE, FSCCT Admitting Physician: Milo Salvador MD, FACC, FACP, FASJASPER, FASE, FSCCT Referring Physician: KHUSHBU BOWMAN Patient Care team information Personnel Name: KHUSHBU BOWMAN Address: Address: [address] [place] [address] [place] [id number]
--- OUTSIDE RECORDS SUMMARY | 2023-11-22 01:05 | XMS_ITS | Continuity of Care Document ---
Author Name Unknown Organization [facility] Ambulatory Clinics Address [address] [place] [address] Care Team Providers Care Associate Professor Of Law Name Role Phone COLBY KHUSHBU Nelson Primary Care Physician [phone] Encounter [facility] NBR [id number] Date(s): 05/16/23 - 05/16/23 [facility] Ambulatory Clinics [address] [place], [place] [address] Discharge Disposition: Home Allergies, Adverse Reactions, Alerts Substance Reaction Severity Status lisinopril Severe Active Preparation H Unknown Active Kaopectate Unknown Active Latex Unknown Active Assessment and Plan Future Appointments Medications Adult Aspirin 325 mg oral tablet 0 Refill(s) Start Date: 01/16/23 Status: Ordered Albuterol (Eqv-ProAir HFA) 0 Refill(s) Start Date: 01/16/23 Status: Ordered amoxicillin 500 mg oral capsule TAKE 4 CAPSULES BY MOUTH ONCE FOR 1 DOSE 1 HOUR PRIOR TO ANY DENTAL PROCEDURE Start Date: 03/14/23 Status: Ordered amoxicillin 500 mg oral capsule 4 EA, TAKE 4 CAPSULES BY MOUTH ONCE FOR 1 DOSE 1 HOUR PRIOR TO ANY DENTAL PROCEDURE, 0 Refill(s) Start Date: 03/14/23 Status: Ordered aspirin 325 mg oral capsule 325 mg = 1 cap, Oral, Daily, # 30 cap, 0 Refill(s) Start Date: 03/14/23 Status: Ordered BuPROPion (Eqv-Wellbutrin SR) 150 mg/12 hours oral tablet, extended release 0 Refill(s) Start Date: 01/16/23 Status: Ordered citalopram 40 mg oral tablet 40 mg = 1 tab, Oral, Daily, # 30 tab, 0 Refill(s) Start Date: 01/16/23 Status: Ordered ezetimibe 10 mg oral tablet 10 mg = 1 tab, Oral, Daily, # 30 tab, 0 Refill(s) Start Date: 01/16/23 Status: Ordered Flovent Diskus 100 mcg inhalation powder 2 puffs, Inhale, BID, # 60 EA, 0 Refill(s) Start Date: 01/16/23 Status: Ordered Home BiPAP Supply, See instructions, # 1 EA, 0 Refill(s) Start Date: 01/16/23 Status: Ordered Home Nebulizer Supply, See instructions, # 1 EA, 0 Refill(s) Start Date: 01/16/23 Status: Ordered hydroCHLOROthiazide 12.5 mg oral tablet 12.5 mg = 1 tab, Oral, Daily, # 30 tab, 0 Refill(s) Start Date: 01/16/23 Status: Ordered levothyroxine 75 mcg (0.075 mg) oral tablet 75 mcg = 1 tab, Oral, Daily, # 30 tab, 0 Refill(s) Start Date: 01/16/23 Status: Ordered Metoprolol Succinate ER 25 mg oral tablet, extended release 25 mg = 1 tab, Oral, Daily, # 30 tab, 0 Refill(s) Start Date: 03/14/23 Status: Ordered nystatin 100,000 units/g topical cream 0 Refill(s) Start Date: 01/16/23 Status: Ordered omeprazole 40 mg oral delayed release capsule 40 mg = 1 cap, Oral, Daily, 30 minutes before evening meal, # 90 cap, 3 Refill(s), Pharmacy: [facility] Start Date: 02/06/23 Status: Ordered rosuvastatin 20 mg oral tablet 20 mg = 1 tab, Oral, Daily, # 30 tab, 0 Refill(s) Start Date: 01/16/23 Status: Ordered ziprasidone 20 mg oral capsule 20 mg = 1 cap, Oral, BID, # 180 cap, 0 Refill(s) Start Date: 01/16/23 Status: Ordered ZyrTEC 10 mg oral tablet 10 mg = 1 tab, Oral, Daily, # 30 tab, 0 Refill(s) Start Date: 01/16/23 Status: Ordered Problem List Condition Confirmation Course Effective Dates Status H ealth Status Informant Anemia Confirmed Active Aortic stenosis Confirmed Active Bronchitis Confirmed Active Cervical radiculopathy Confirmed Active Claudication Confirmed Active Depression Confirmed Active Dermatitis Confirmed Active Diarrhea Confirmed Active Arterial disease Confirmed Active Dysphagia Confirmed Active Elevated creatine kinase level Confirmed Active Emphysema Confirmed Active Fatigue Confirmed Active GERD (gastroesophageal reflux disease) Confirmed Active Globus sensation Confirmed Active Grief Confirmed Active Heart murmur Confirmed Active Hematuria Confirmed Active Hemorrhoids Confirmed Active History of PSVT (paroxysmal supraventricular tachycardia) Confirmed Active Hoarseness Confirmed Active Hyperlipidemia Confirmed Active Hypertension Confirmed Active Hypothyroidism Confirmed Active IBS - Irritable bowel syndrome Confirmed Active Incontinent of feces Confirmed Active Irregular bowel habits Confirmed Active Macular degeneration of both eyes Confirmed Active Obesity Confirmed Active CHEMA - Obstructive sleep apnea Confirmed Active Paresthesia of hand Confirmed Active Peripheral vascular disease Confirmed Active Pneumonia Confirmed Active Rheumatoid arthritis Confirmed Active Stent placement 1 Confirmed Active SVT - Supraventricular tachycardia 2 Confirmed Active Tobacco abuse 3 Confirmed Active 1iliac stent 2history of 3history of Procedures Procedure Date Related Diagnosis Body Site Status Aortic valve resuspension an d replacement of ascending aorta 03/06/23 C ompleted Cholecystectomy 1 Complet ed Colonoscopy 2 Completed Colonoscopy 3 Completed Dilation and curettage 4 Completed Direct laryngoscopy with ope rating microscope 5 Completed EGD - Esophagogastroduodenoscopy 6 Completed EGD - Esophagogastroduodenoscopy 7 Completed Endoscopy and biopsy of uppe r gastrointestinal tract 8 Complet ed Laryngoscopy 9 Completed Surgery 10 Completed Tubal ligation Completed [id number] 4x2 5biopsy of left true vocal cord 02/2012 39725 [id number] 10history of insertion of iliac stent Social History Social History Type Response Tobacco Never tobacco user, Former tobacco user Tobacco Use:. Sex Patient Care team information Care Team Personnel Name: KHUSHBU BOWMAN Position: No Access Member Role: Primary Care Physician Address: Address: [address] [place] [id number]- [place] Care Team Related Persons Name: ANIBAL HOUSTON Address: Home
--- OUTSIDE RECORDS SUMMARY | 2023-11-22 01:05 | XMS_ITS | Continuity of Care Document ---
Author Name Unknown Organization [facility] Ambulatory Clinics Address [address] [place] [address] Care Team Providers Care Manager Mechanical Name Role Phone VANITA BOWMAN Primary Care Physician [phone] Encounter [facility] NBR [id number] Date(s): 01/16/23 - 01/16/23 [facility] Ambulatory Clinics [address] [place], [place] [address] Encounter Diagnosis Dysphagia(Discharge Diagnosis) - 01/16/23 Diarrhea(Discharge Diagnosis) - 01/16/23 Irregular bowel habits(Discharge Diagnosis) - 01/16/23 Discharge Disposition: Home or Self Care Attending Physician: Maribeth Camacho APRN Allergies, Adverse Reactions, Alerts Substance Reaction Severity Status lisinopril Severe Active Assessment and Plan Future Appointments Future Scheduled Tests Radiology* XR Barium Swallow 01/16/23 Functional Status 01/16/23 Other exposure to Infectious Disease Non e Medications Adult Aspirin 325 mg oral tablet 0 Refill(s) Start Date: 01/16/23 Status: Ordered Albuterol (Eqv-ProAir HFA) 0 Refill(s) Start Date: 01/16/23 Status: Ordered BuPROPion (Eqv-Wellbutrin SR) 150 mg/12 [...] 0 Refill(s) Start Date: 01/16/23 Status: Ordered nystatin 100,000 units/g topical cream 0 Refill(s) Start Date: 01/16/23 Status: Ordered omeprazole 40 mg oral delayed release capsule 40 mg = 1 cap, Oral, Daily, 30 minutes before evening meal, # 30 cap, 3 Refill(s), Pharmacy: [id number] Start Date: 01/16/23 Stop Date: 05/16/23 Status: Ordered rosuvastatin 20 mg oral tablet [...] Effective Dates Status H ealth Status Informant Aortic stenosis Confirmed Active Diarrhea Confirmed Active Arterial disease Confirmed Active Dysphagia Confirmed Active GERD (gastroesophageal reflux disease) Confirmed Active History of PSVT (paroxysmal supraventricular tachycardia) Confirmed Active Hypertension Confirmed Active Irregular bowel habits Confirmed Active Peripheral vascular disease Confirmed Active Pneumonia Confirmed Active Procedures Procedure Date Related Diagnosis Body Site Status Colonoscopy 1 Completed Endoscopy and biopsy of uppe r gastrointestinal tract 2 [facility] [place] [id number] Vital Signs Most recent to oldest [Reference Range]: 1 Temperature Tympanic [36.6-37.9 Deg C] 3 6.7 Deg C (01/16/23 2:15 PM) Apical Heart Rate [60-100 bpm] 90 bpm (01/16/23 2:15 PM) Blood Pressure [90-140/60-90 mmHg] 130/7 8mmHg (01/16/23 2:15 PM) Weight 82.0 kg (01/16/23 2:15 PM) Weight Measured (lbs) 180.779 lb (01/16/23 2:15 PM) [place] Body Weight Calculated 53.55 kg (01/16/23 2:15 PM) Height 161.29 cm (01/16/23 2:15 PM) Height/Length Measured (inches) 63.5 inc h (01/16/23 2:15 PM) BSA Measured 1.92 m2 (01/16/23 2:15 PM) Body Mass Index 31.52 kg/m2 (01/16/23 2:15 PM) Social History Social History Type Response Tobacco Never tobacco user, Former tobacco user Tobacco Use:. Sex Physician Outpatient Note * Maribeth Camacho APRN: PERFORM Event Display: Office Clinic Note Physician Authored Date: [id number] FIGUEREDOCARL :1950 Age:72 years Sex:Female Visit Date:01/16/2023 Primary Care Physician: VANITA BOWMAN Chief Complaint Dysphagia and rectal incontinence History of Present Illness Patient is a 72-year-old female here today to request??of Vanita Bowman APRN for dysphagia and fecal incontinence.?? This is an initial consult.?? She has had dysphagia in the past. ??Most recently she has developed it again??2 months ago. ??Has dysphagia of solids and pills.?? Okay with liquids. ??She is recently??in the process of getting dentures.?? Has globus sensation. ??Has had a?? Ruby fundoplication is not??had any pyrosis or dyspepsia since.?? She does not take any PPI.?? She states shestruggles between constipation and diarrhea. ??Denies any recent??fecal incontinence.?? Has abdominal cramping. ??Is been told she has IBS. ??Uses Imodium as needed. ??Denies any melena or hematochezia. ??Weight and appetite stable.?? Denies any nausea or vomiting. ?? Patient has had high-resolution impedance manometry per PCP notes that were normal. ?? In the past she has already had high-resolution impedance manometry studies that were normal. ?? In 2013 she had an EGD and colonoscopy that were unremarkable. ??Reports are not available. ?? She states she has plans for??aortic and??pulmonic valve replacement??soon.?? She also takes aspirin 325 mg daily for prophylaxis. ?? Denies any family history of gastrointestinal cancers or inflammatory bowel disease. Review of Systems Pertinent positives and negatives are discussed in HPI. Physical Exam Vitals & Measurements T:??36.7?C ??(Tympanic)?? HR:??90??(Apical)?? BP:??130/78?? SpO2:??94%?? HT:??161.29??cm?? WT:??82.0??kg?? BMI:??31.52?? BSA:??1.92?? General: Well-nourished well-developed??female??in no acute distress. HEENT: Head is normocephalic, trachea midline, and no cervical lymphadenopathy. Respiratory: Respirations are even and unlabored. ??Lungs are clear to auscultation. Cardiovascular:??Regular rate and rhythm with??S1 and S2.?? There is a grade 3 systolic ejection murmur??heard throughout the pericardium. Abdomen: Positive bowel sounds x4 quadrants, no masses, no guarding, no tenderness. ??No hepatosplenomegaly. ??Abdomen is soft. Skin: Warm, dry, and pink. Neurological: Alert and oriented x3, speech is clear and gait is steady. Psychological: Pleasant, calm and cooperative. Assessment/Plan 1.??Dysphagia??R13.10 Patient??is being worked up for cardiac surgery for 2 valve replacements including aortic valve.?? Will need to get cardiac clearance which will be pending the results of this testing.?? Will start with barium swallow to assess for obstruction.?? If there is an obstruction that would need dilation??of the esophagus would refer patient to [facility].?? I will see patient back in 3 weeks to reassess and make further plans.?? Start omeprazole 40 mg 30 minutes before evening meal.?? Advised patient to goto the emergency room if she develops any food bolus impactions. ??She is denying any at this time. Ordered: omeprazole 40 mg oral delayed release capsule, 40 mg = 1 cap, Oral, Daily, 30 minutes before evening meal, # 30 cap, 3 Refill(s), Pharmacy: [id number] Follow-up Appointment Request [facility], *Est. 02/06/23 +/- 4 days, Future Order, In Approximately, [facility] Gastroenterology XR Barium Swallow, 01/16/23, Routine, Reason: dysphagia of soilds, with barium tablet, Transport Mode: Ambulatory, Dysphagia Diarrhea ?? 2.??Diarrhea??R19.7 Patient with diarrhea and irregular bowel habits.?? She is due for colonoscopy for colon cancer screening. ??Again will need to wait for cardiac approval??and likely cardiac surgery before being ableto proceed??with procedures.?? Denies any changes in bowel habits.?? She is always had irregular bowels. ??Recommend FiberCon 1 tablet??daily. ??Recommend a high-fiber diet. ??I will see patient??in 3 weeks to reassess and discuss further plans. Ordered: omeprazole 40 mg oral delayed release capsule, 40 mg = 1 cap, Oral, Daily, 30 minutes before evening meal, # 30 cap, 3 Refill(s), Pharmacy: [id number] Follow-up Appointment Request [facility], *Est. 02/06/23 +/- 4 days, Future Order, In Approximately, [facility] Gastroenterology XR Barium Swallow, 01/16/23, Routine, Reason: dysphagia of soilds, with barium tablet, Transport Mode: Ambulatory, Dysphagia Diarrhea ?? 3.??Irregular bowel habits??R19.8 As above. ?? Voice recognition software utilized which may result in minor tobacco primer machine operator error. Future Orders XR Barium Swallow, 01/16/23, Routine, Reason: dysphagia of soilds, with barium tablet, Transport Mode: Ambulatory, Dysphagia Diarrhea Problem List/Past Medical History Ongoing Aortic stenosis Arterial disease Diarrhea Dysphagia GERD (gastroesophageal reflux disease) History of PSVT (paroxysmal supraventricular tachycardia) Hypertension Irregular bowel habits Peripheral vascular disease Pneumonia Historical No qualifying data Procedure/Surgical History ???Colonoscopy???Endoscopy and biopsy of upper gastrointestinal tract Medications Adult Aspirin 325 mg oral tablet Albuterol (Eqv-ProAir HFA) BuPROPion (Eqv-Wellbutrin SR) 150 mg/12 hours oral tablet, extended release citalopram 40 mg oral tablet, 40 mg= 1 tab, Oral, Daily ezetimibe 10 mg oral tablet, 10 mg= 1 tab, Oral, Daily Flovent Diskus 100 mcg inhalation powder, 2 puffs, Inhale, BID Home BiPAP, See instructions Home Nebulizer, See instructions hydroCHLOROthiazide 12.5 mg oral tablet, 12.5 mg= 1 tab, Oral, Daily levothyroxine 75 mcg (0.075 mg) oral tablet, 75 mcg= 1 tab, Oral, Daily nystatin 100,000 units/g topical cream omeprazole 40 mg oral delayed release capsule, 40 mg= 1 cap, Oral, Daily, 3 refills rosuvastatin 20 mg oral tablet, 20 mg= 1 tab, Oral, Daily ziprasidone 20 mg oral capsule, 20 mg= 1 cap, Oral, BID ZyrTEC 10 mg oral tablet, 10 mg= 1 tab, Oral, Daily Allergies lisinopril Social History Alcohol Current, Beer, 1-2 times per year Electronic Cigarette/Vaping Electronic Cigarette Use: Never. Substance Use Never Tobacco Never tobacco user, Former tobacco user Tobacco Use:. Family History Family history is negative Electronically Signed on 01/16/23 02:59 PM Maribeth Camacho APRN Patient Care team information Care Team Personnel Name: VANITA BOWMAN Position: No Access Member Role: Primary Care Physician Address: Address: [address] [place] [address]- Care Team Related Persons Name: ANIBAL HOUSTON
--- OUTSIDE RECORDS SUMMARY | 2023-11-22 01:05 | XMS_ITS | Continuity of Care Document ---
Author Name Unknown Organization [facility] Address [address] [place] [id number] Care Team Providers Care Circulation Tender Name Role Phone KHUSHBU BOWMAN Primary Care Physician [phone] Encounter [facility] [place] [id number] Date(s): 02/21/23 - 02/21/[address] [address] Discharge Disposition: Home or Self Care Attending Physician: Maribeth Camacho APRN Admitting Physician: Maribeth Camacho APRN Allergies, Adverse Reactions, Alerts Substance Reaction Severity Status lisinopril Severe Active Assessment and Plan Future Appointments Medications [...] meal, # 90 cap, 3 Refill(s), Pharmacy: [facility] Start Date: 02/06/23 Status: [...] Condition Confirmation Course Effective Dates Status H ealt Status Informant Aortic stenosis Confirmed Active Diarrhea Confirmed Active Arterial disease Confirmed Active Dysphagia Confirmed Active GERD (gastroesophageal reflux disease) Confirmed Active Globus sensation Confirmed Active History of PSVT (paroxysmal supraventricular tachycardia) Confirmed Active Hypertension Confirmed Active Incontinent of feces Confirmed Active Irregular bowel habits Confirmed Active Peripheral vascular disease Confirmed Active Pneumonia Confirmed Active Procedures Procedure Date Related Diagnosis Body Site Status Colonoscopy 1 Completed Endoscopy and biopsy of uppe r gastrointestinal tract 2 [facility] [id number] Results Radiology Reports * Exam Date Time Procedure Performing Provider Status 02/21/23 8:51 AM XR Barium Swallow [facility] (Verified) Notes: (XR Barium Swallow) Reason For Exam: dysphagia of soilds XR Barium Swallow EXAM DESCRIPTION: XR Barium Swallow 02/21/2023 INDICATION: DYSPHAGIA OF SOILDS TECHNIQUE: A biphasic barium swallow examination was performed. The patient was studied in the standing LPO and recumbent JORDAN projections. Additional small [id number] AP and lateral views of the hypopharynx region were obtained Fluoroscopy time: 2.5 minutes Image number: 37 COMPARISON: None FINDINGS: The patient swallowed the barium suspension without difficulty. Views of the hypopharynx are unremarkable. The esophagus demonstrates normal distensibility and peristalsis with no ulceration, stricture or neoplasm. No significant dysmotility. Changes in the EG junction region suggesting previous fundoplication wrap. In the absence of previous surgery, these findings would suggest small paraesophageal hiatal hernia. No significant gastroesophageal reflux was demonstrated during the examination. IMPRESSION: No esophageal stricture or neoplasm. Findings at the EG junction suggesting previous fundoplication wrap. Correlation with surgical history is recommended. In the absence of previous surgical history, these findings which suggest small paraesophageal hiatal hernia. No significant gastroesophageal reflux was demonstrated. JOB #: [id number] Final Signed by: Kwasi Hernandez MD Signed (Electronic Signature): 02/21/2023 9:05 am Social History Social History Type Response Tobacco Never tobacco user, Former tobacco user Tobacco Use:. Sex RF Esophagus Views W barium contrast PO * Kwasi Hernandez MD: VERIFY, VERIFY Event Display: Report EXAM DESCRIPTION: XR Barium Swallow 02/21/2023 INDICATION: DYSPHAGIA OF SOILDS TECHNIQUE: A biphasic barium swallow examination was performed. The patient was studied in the standing LPO and recumbent JORDAN projections. Additional small epqkb-vw-[id number] AP and lateral views of the hypopharynx region were obtained Fluoroscopy time: 2.5 minutes Image number: 37 COMPARISON: None FINDINGS: The patient swallowed the barium suspension without difficulty. Views of the hypopharynx are unremarkable. The esophagus demonstrates normal distensibility and peristalsis with no ulceration, stricture or neoplasm. No significant dysmotility. Changes in the EG junction region suggesting previous fundoplication wrap. In the absence of previous surgery, these findings would suggest small paraesophageal hiatal hernia. No significant gastroesophageal reflux was demonstrated during the examination. IMPRESSION: No esophageal stricture or neoplasm. Findings at the EG junction suggesting previous fundoplication wrap. Correlation with surgical history is recommended. In the absence of previous surgical history, these findings which suggest small paraesophageal hiatal hernia. No significant gastroesophageal reflux was demonstrated. JOB #: [id number] Final Signed by: Kwasi Hernandez MD Signed (Electronic Signature): 02/21/2023 9:05 am Patient Care team information Care Team Personnel Name: KHUSHBU BOWMAN Position: No Access Member Role: Primary Care Physician Address: Address: [address] [place] [id number]- Care Team Related Persons Name: ANIBAL HOUSTON Address: Home
--- OUTSIDE RECORDS SUMMARY | 2023-11-22 01:05 | XMS_ITS | Continuity of Care Document ---
Author Name Unknown Organization [facility] Ambulatory Clinics Address [address] [place] [address] Care Team Providers Care Associate Java Developer Name Role Phone COLBY VANITA Nelson Primary Care Physician Encounter [facility] NBR [id number] Date(s): 06/13/23 - 06/13/23 [facility] Ambulatory Clinics [address] [place] [address], [place] [address] Encounter Diagnosis Globus sensation(Discharge Diagnosis) - 06/13/23 GERD (gastroesophageal reflux disease)(Discharge Diagnosis) - 06/13/23 Irregular bowel habits(Discharge Diagnosis) - 06/13/23 Colon cancer screening(Discharge Diagnosis) - 06/13/23 Discharge Disposition: Home or Self Care Attending Physician: Maribeth Camacho APRN Allergies, Adverse Reactions, Alerts Substance Reaction Severity Status lisinopril Severe Active Preparation H Unknown Active Kaopectate Unknown Active Latex Unknown Active Functional Status 06/13/23 Other exposure to Infectious Disease Non e Medications Albuterol (Eqv-ProAir HFA) 0 Refill(s) Start Date: 01/16/23 Status: Ordered amLODIPine 5 mg oral tablet TAKE 1 TABLET BY MOUTH ONCE DAILY Start Date: 06/13/23 Status: Ordered aspirin 325 mg oral capsule 325 mg = 1 cap, Oral, Daily, # 30 cap, 0 Refill(s) Start Date: 03/14/23 Status: Ordered BuPROPion (Eqv-Wellbutrin SR) 150 mg/12 hours oral tablet, extended release 0 Refill(s) Start Date: 01/16/23 Status: Ordered cephalexin 500 mg oral capsule TAKE FOUR CAPSULES BY MOUTH 1 HOUR PRIOR TO DENTAL PROCEDURE Start Date: 06/13/23 Status: Ordered citalopram 40 mg oral tablet [...] meal, # 90 cap, 3 Refill(s), Pharmacy: [facility] Start Date: 02/06/23 [...] Cervical radiculopathy Confirmed Active Claudication Confirmed Active Constipation Confirmed Active Cramping Confirmed Active Depression Confirmed Active Dermatitis Confirmed Active Diarrhea Confirmed Active Arterial disease Confirmed Active Dysphagia Confirmed Active Elevated creatine kinase level Confirmed Active Emphysema Confirmed Active Fatigue Confirmed Active Frequent fecal incontinence Confirmed Active GERD (gastroesophageal reflux disease) Confirmed [...] Confirmed Active Paresthesia of hand Confirmed Active Colon cancer screening Confirmed Active Peripheral vascular disease Confirmed Active [...] Completed Surgery 10 Completed Tubal ligation Completed [id number] 5biopsy of left true vocal cord 02/2012 [id number] 10history of insertion of iliac stent Vital Signs Most recent to oldest [Reference Range]: 1 Temperature Temporal Artery [36-38 Deg C ] 36.8 Deg C (06/13/23 8:04 AM) Apical Heart Rate [60-100 bpm] 75 bpm (06/13/23 8:04 AM) Blood Pressure [90-140/60-90 mmHg] 172/8 0mmHg *HI* (06/13/23 8:04 AM) Weight 79.1 kg (06/13/23 8:04 AM) Weight Measured (lbs) 174.385 lb (06/13/23 8:04 AM) Galvin Body Weight Calculated 54.7 kg (06/13/23 8:04 AM) Height 162.56 cm (06/13/23 8:04 AM) Height/Length Measured (inches) 64 inch (06/13/23 8:04 AM) BSA Measured 1.89 m2 (06/13/23 8:04 AM) Body Mass Index 29.93 kg/m2 (06/13/23 8:04 AM) Social History Social History Type Response Tobacco Never tobacco user, Former tobacco user Tobacco Use:. Sex Physician Outpatient Note * Maribeth Camacho APRN W: PERFORM Event Display: Office Clinic Note Physician Authored Date: [id number] CARL FIGUEREDO :1950 Age:72 years Sex:Female Visit Date:06/13/2023 Primary Care Physician: VANITA BOWMAN Chief Complaint 3 month follow up dysphagia and IBS History of Present Illness Patient is a 72-year-old female here today to request??of Vanita Bowman APRN for dysphagia and fecal incontinence.?? She is an established patient here today for follow-up of dysphagia and barium swallow??and irritable bowel syndrome.?? She has had dysphagia in the past. ??In the past she??was??having??dysphagia that resolved with omeprazole 40 mg daily.?Complains of a globus sensation.?Has had a?? Ruby fundoplication is not??had any pyrosis or dyspepsia since.??She states she struggles between constipation and diarrhea. ??She manages with??milk of magnesia??once a week.?? States MiraLAX does not work.?If she has severe diarrhea she uses Imodium. ??Denies any issues recently.?Denies any recent??fecal incontinence.?? Has abdominal cramping. ??Is been told she has IBS. ??Uses Imodium as needed. ??Denies any melena or hematochezia. ??Weight and appetite stable.?? Denies any nausea or vomiting. ?? Patient has had high-resolution impedance manometry per PCP notes that were normal. ?? In 2012 she had an EGD and colonoscopy that were unremarkable. ??Reports are not available. ?? In February patient had a TAVR procedure.?? She was advised to wait 3 to 6 months before having any procedures..?? She is on aspirin 325 mg daily. ??She sees Dr. Torres at [facility] [place]. ?? Denies any family history of gastrointestinal cancers or inflammatory bowel disease. Review of Systems Pertinent positives and negatives are discussed in HPI. Physical Exam Vitals & Measurements T:??36.8?C ??(Temporal Artery)?? HR:??75??(Apical)?? BP:??172/80?? SpO2:??96%?? HT:??162.56??cm?? WT:??79.1??kg?? BMI:??29.93?? BSA:??1.89?? General: Well-nourished well-developed??female??in no acute distress. HEENT: Head is normocephalic, trachea midline, and no cervical lymphadenopathy. Respiratory: Respirations are even and unlabored. ??Lungs are clear to auscultation. Cardiovascular: Regular rate and rhythm with S1 and S2. Abdomen: Positive bowel sounds x4 quadrants, no masses, no guarding, no tenderness. ??No hepatosplenomegaly. ??Abdomen is soft. Skin: Warm, dry, and pink. Neurological: Alert and oriented x3, speech is clear and gait is steady. Psychological: Pleasant, calm and cooperative. Assessment/Plan 1.??Globus sensation??F45.8 Patient denies dysphagia but complains??of globus sensation.?? She has been evaluated by ear nose and throat and was unremarkable. ??She continues with omeprazole 40 mg daily.?? Once we obtain??cardiac clearance from Dr. Torres??schedule patient for EGD to assess for??mucosal injury, inflammation,H. pylori infection??and eosinophil esophagitis.?? Continue omeprazole 40 mg??daily. 2.??GERD (gastroesophageal reflux disease)??K21.9 As above. ??Discussed reflux triggering foods and beverages to avoid, to avoid eating 3 hours before bedtime and to eat small frequent meals.?? 3.??Irregular bowel habits??R19.8 Continue high-fiber diet.?? Trial of senna 1 tablet daily??containing bowel regularity.?? Colonoscopy to assess for colitis or neoplasm. 4.??Colon cancer screening??Z12.11 As above. Cardiac clearance is pending. ?? Voice recognition software utilized which may result in minor phone engineer error. Problem List/Past Medical History Ongoing Anemia Aortic stenosis Arterial disease Bronchitis Cervical radiculopathy Claudication Colon cancer screening Constipation Cramping Depression Dermatitis Diarrhea Dysphagia Elevated creatine kinase level Emphysema Fatigue Frequent fecal incontinence GERD (gastroesophageal reflux disease) Globus sensation Grief Heart murmur Hematuria Hemorrhoids History of PSVT (paroxysmal supraventricular tachycardia) Hoarseness Hyperlipidemia Hypertension Hypothyroidism IBS - Irritable bowel syndrome Incontinent of feces Irregular bowel habits Macular degeneration of both eyes Obesity CHEMA - Obstructive sleep apnea Paresthesia of hand Peripheral vascular disease Pneumonia Rheumatoid arthritis Stent placement SVT - Supraventricular tachycardia Tobacco abuse Historical No qualifying data Procedure/Surgical History ???Aortic valve resuspension and replacement of ascending aorta (03/07/2023)???Cholecystectomy???Colonoscopy???Colonoscopy???Dilation and curettage???Direct laryngoscopy with operating microscope???EGD - Esophagogastroduodenoscopy???EGD - Esophagogastroduodenoscopy???Endoscopy and biopsy of upper gastrointestinal tract???Laryngoscopy???Surgery???Tubal ligation Medications Albuterol (Eqv-ProAir HFA) amLODIPine 5 mg oral tablet aspirin 325 mg oral capsule, 325 mg= 1 cap, Oral, Daily BuPROPion (Eqv-Wellbutrin SR) 150 mg/12 hours oral tablet, extended release cephalexin 500 mg oral capsule citalopram 40 mg oral tablet, 40 mg= [...] tablet, 75 mcg= 1 tab, Oral, Daily Metoprolol Succinate ER 25 mg oral tablet, extended release, 25 mg= 1 tab, Oral, Daily nystatin 100,000 units/g topical cream omeprazole 40 mg oral delayed release capsule, 40 mg= 1 cap, Oral, Daily, 3 refills rosuvastatin 20 mg oral tablet, 20 mg= 1 tab, Oral, Daily ziprasidone 20 mg oral capsule, 20 mg= 1 cap, Oral, BID ZyrTEC 10 mg oral tablet, 10 mg= 1 tab, Oral, Daily Allergies lisinopril Kaopectate Latex Preparation H Social History Alcohol Current, Beer, 1-2 times per year Electronic Cigarette/Vaping Electronic Cigarette Use: Never. Substance Use Never Tobacco Never tobacco user, Former tobacco user Tobacco Use:. Family History Alcohol abuse: Father. COPD: Mother. Cervical cancer: Mother. Cirrhosis of liver: Father. Depression: Mother. Diabetes mellitus: Grandmother (M) and Grandmother (P). Emphysema: Grandfather (M). Glaucoma: Mother. Heart disease: Father and Grandfather (P). Hypertension: Mother and Father. Mental illness: Mother. Migraine: Mother. Family Member(s): ?? FATHER, at age: Unknown. Cause of : Family Member(s): ?? MOTHER, at age: Unknown. Cause of : Family Member(s): ?? GPARENT, at age: Unknown. Cause of : Family Member(s): ?? GPARENT, at age: Unknown. Cause of : Family Member(s): ?? GPARENT, at age: Unknown. Cause of : Electronically Signed on 06/13/23 08:25 AM Maribeth Camacho APRN Patient Care team information Care Team Personnel Name: VANITA BOWMAN Position: No Access Member Role: Primary Care Physician Address: Address: [address] [place] [address]- Care Team Related Persons Name: ANIBAL HOUSTON Address: Home
== END ==
PROVIDERS: PCP Nurse Practitioner Family; Visit Provider Nurse Practitioner Family
DX: Z12.31 Encounter for screening mammogram for malignant neoplasm of breast (principal)
CPT/HCPCS: 77063; 77067

== ENCOUNTER 2023-11-22 15:50 | Outpatient (REF) | payer OTHER, SELFPAY ==
[2023-11-22 17:04] LABS: FREE T4 1.03 ng/dL (0.76-1.46); TSH 2.11 uIU/mL (0.36-3.74)
== END 2023-11-22 15:51 | disposition home or self-care (01) ==
LOC: NCHCN 15:50
PROVIDERS: PCP Nurse Practitioner Family; Visit Provider Nurse Practitioner Family
DX: E03.9 Hypothyroidism, unspecified (principal)
CPT/HCPCS: 84439; 84443

== ENCOUNTER 2024-04-10 20:52 | Outpatient (REF) | payer OTHER, SELFPAY ==
[2024-04-10 16:15] LABS: HGB 13.6 g/dL (11.2-15.7); MCH 33.1 pg (27.0-33.0); MCV 97 fL (80-95); Platelet Count 296 10^3/uL (130-400); RBC 4.11 10^6/uL (3.93-5.22); RDW 12.6 % (11.7-14.6); RDW-SD 45.1 fL; WBC 11.87 10^3/uL (4.4-10.8)
[2024-04-10 17:02] LABS: ALT 22 U/L (14-59); AST 23 U/L (15-37); Albumin 3.9 g/dL (3.4-5.0); Alkaline Phosphatase 81 U/L (46-116); Anion Gap 9.3 mmol/L (3-11); BUN 20 mg/dL (7-18); Bilirubin, Total 0.4 mg/dL (0.2-1.0); CO2 28.7 mmol/L (21.0-32.0); CREATININE 1.4 mg/dL (0.55-1.02); Calcium 9.2 mg/dL (8.5-10.1); Chloride 102 mmol/L (98-107); Estimated GFR 39.23 (mL/min/1.73m2); Glucose 113 mg/dL (74-106); Magnesium 1.9 mg/dL (1.8-2.4); Potassium 3.6 mmol/L (3.5-5.1); Sodium 140 mmol/L (136-145); TSH 2.31 uIU/Ml (0.36-3.74); Total Protein 8.2 g/dL (6.4-8.2); Vitamin B12 1162 pg/mL (193-986)
== END 2024-04-10 20:53 | disposition home or self-care (01) ==
LOC: NCHCN 20:52
PROVIDERS: PCP Nurse Practitioner Family; Visit Provider Nurse Practitioner Family
DX: R41.3 Other amnesia (principal)
CPT/HCPCS: 80053; 85027; 82607; 83735; 84443

== ENCOUNTER → 2024-04-12 00:29 | Outpatient (CLI) | payer OTHER, SELFPAY ==
--- NOTE | 2024-04-12 12:22 | DI.RAD_ITS ---
Exam(s) XR CHEST 2V PA LATERAL EXAM: XR CHEST 2V PA LATERAL CLINICAL HISTORY: DYSPNEA ON EXERTION,R06.09 TECHNIQUE: 2D digital imaging was performed of the chest. Two images were obtained. PA and lateral views were obtained. COMPARISON: CR XR PORTABLE CHEST AP from 01/23/2023 FINDINGS: MEDIASTINUM: Normal. HEART: Normal. There is an aortic valve replacement now in place. PULMONARY VASCULATURE: Normal. LUNGS: Clear. PLEURAL SPACE: No pleural effusion or pneumothorax. BONE:Within normal limits for the patient's age. Unchanged left rib deformity. OTHER FINDINGS:Normal. IMPRESSION: No acute pulmonary findings. DATA REPOSITORY: RADIATION DOSE DELIVERED:
== END ==
PROVIDERS: PCP Nurse Practitioner Family; Visit Provider Nurse Practitioner Family
DX: R06.09 Other forms of dyspnea (principal)
CPT/HCPCS: 71046

== ENCOUNTER 2024-05-09 09:49 | Emergency (ER) | payer OTHER, SELFPAY ==
[2024-05-09] VITALS (31 sets, daily range): BP systolic 108–176; BP diastolic 54–86; PULSE 57–79; RESP 14–28; O2SAT 90–98
[2024-05-09] MEDS: Aspirin 81 MG CHEW (10:30)
--- NOTE | 2024-05-09 10:30 | RT.EKG_ITS ---
APPROVED REPORT Exam: Resting ECG Reason for Exam: near syncope Patient Location: E HR:71 bpm ECG Measurements Heart Rate 71 AXIS ID 163 P 68 QRSd 143 QRS -89 QT 442 T 11 QTc 481 Conclusion sinus 71 normal axis RBBB no stemi
--- NOTE | 2024-05-09 10:57 | DI.RAD_ITS ---
Exam(s) XR PORTABLE CHEST AP EXAM: XR PORTABLE CHEST AP CLINICAL HISTORY: near syncope, chest pain TECHNIQUE: 2D digital imaging was performed of the chest. One image was obtained. An AP view was ob tained. COMPARISON: CR XR PORTABLE CHEST AP from 01/23/2023 CR XR CHEST 2V PA LATERAL from 04/12/2024 FINDINGS: MEDIASTINUM: Normal. HEART: Normal. There is an aortic valve replacement noted. PULMONARY VASCULATURE: Normal. LUNGS: No focal consolidating infiltrates. PLEURAL SPACE: No pleural effusion or pneumothorax. BONE:Within normal limits for the patient's age. Old rib fractures. OTHER FINDINGS:Normal. IMPRESSION: No acute pulmonary findings. DATA REPOSITORY: RADIATION DOSE DELIVERED:
[2024-05-09 10:59] LABS: Abs Immature Grans 0.06 10^3/uL (0.0-0.06); Absolute Basophil Count 0.05 10^3/uL (0.0-0.2); Absolute Eosinophil Count 0.15 10^3/uL (0.0-0.7); Absolute Monocyte Count 0.72 10^3/uL (0.1-0.8); Absolute Neutrophil Count 6.86 10^3/uL (1.2-6.7); Basophils % 0.5 %; Eosinophils % 1.5 %; HCT 41.9 % (36.0-46.0); HGB 13.9 g/dL (11.2-15.7); Immature Grans % 0.6 %; Lymphocytes % 22.7 %; MCHC 33.2 % (32.0-36.0); MCV 100 fL (80-95); MPV 9.7 fL (8.0-11.0); Monocytes % 7.1 %; Neutrophils % 67.6 %; Platelet Count 255 10^3/uL (130-400); RBC 4.21 10^6/uL (3.93-5.22); RDW 12.6 % (11.7-14.6); RDW-SD 46.3 fL; WBC 10.14 10^3/uL (4.4-10.8)
[2024-05-09 11:12] LABS: PTT Activated 27.9 sec (23.6-32.8); Prothrombin Time 9.9 sec (9.1-11.1)
[2024-05-09 11:20] LABS: Anion Gap 10.3 mmol/L (3-11); BUN 31 mg/dL (7-18); CO2 28.7 mmol/L (21.0-32.0); CREATININE 1.7 mg/dL (0.55-1.02); Calcium 9.4 mg/dL (8.5-10.1); Chloride 102 mmol/L (98-107); Estimated GFR 31.08 (mL/min/1.73m2); Glucose 113 mg/dL (74-106); Magnesium 2.1 mg/dL (1.8-2.4); NT-proBNP 371 pg/mL (<300); Sodium 141 mmol/L (136-145); Troponin I < 50 ng/L (< or =60)
--- NOTE | 2024-05-09 11:21 | ED.GENADUL_ITS ---
Discharge Plan Disposition Patient Disposition: Home Condition: Stable Discharge Details Clinical Impression: Near syncope Primary Care Provider: Vanita Trevino ED Provider: Arti Helm Home Meds and New Rx's Prescriptions: Continued citalopram [Celexa] 40 mg Tablet 20 mg PO DAILY levothyroxine 50 mcg Tablet 50 mcg PO DAILY Zyrtec 10 mg Capsule 10 mg PO DAILY aspirin 325 MG tablet 325 mg PO DAILY cholecalciferol (vitamin D3) [Vitamin D3] 400 UNIT tablet 2,000 unit PO DAILY losartan 25 mg tablet 25 mg PO HS Patient Comments: TAKE ONE TABLET BY MOUTH EVERY DAY acetaminophen 325 mg tablet 650 mg PO BID amlodipine 5 mg tablet 10 mg PO 1XD No Action bupropion HCl [Wellbutrin SR] 150 mg Tablet Sustained-Release 12 Hr 150 mg PO QAM ziprasidone HCl [Geodon] 20 mg Capsule 20 mg PO BID hydrocortisone 1 % Cream 1 applic TOPICAL BID PRN diphenhydramine HCl [Benadryl] 25 mg Capsule 50 mg PO HS ferrous sulfate [iron] 325 mg (65 mg iron) Tablet 28 mg PO DAILY (DME) nebulizers Misc MISCELLANEOUS nystatin 100,000 unit/gram Powder 1 applic TOPICAL TID rosuvastatin 20 mg Tablet 20 mg PO HS diclofenac sodium 1 % gel 4 gm TP QID PRN (Reason: left hip pain) 6 Days Qty: 100 11RF ezetimibe [Zetia] 10 mg tablet 10 mg PO HS hydrochlorothiazide 25 mg tablet 25 mg PO DAILY benzonatate 100 mg capsule 100 mg PO TID PRN (Reason: cough) Qty: 14 0RF multivitamin [Daily Multi-Vitamin] 1 EACH tablet 1 tab PO DAILY calcium carbonate-vitamin D3 1 EACH tablet 2 tab PO DAILY carboxymethylcellulose sodium [Refresh Tears] 30 ML drops 2 drp OU BID nystatin 15 GM cream 1 ea Topical TID folic acid 0.8 MG tablet 0.8 mg PO DAILY Fortifeye 1 tab PO DAILY albuterol sulfate [ProAir HFA] 90 mcg/actuation Hfa Aerosol Inhaler 2 puff INHALATION PRN PRN fluticasone propionate [Flovent HFA] 110 mcg/actuation HFA aerosol inhaler 1 puff Inhalation BID guaifenesin [Mucinex] 600 mg Tablet Extended Release 12hr 600 mg PO Q12H PRN metoprolol succinate 25 mg tablet extended release 24 hr 25 mg PO DAILY Qty: 7 0RF Discharge Instructions Instructions: Near Fainting (DC) Additional Instructions: I was able to speak with Dr. Lucas Campos cardiology. He does recommend holding your hydrochlorothiazide at this time. Please follow-up closely with Vanita Churchill your PCP. I did order an outpatient Holter monitor they will contact you with instructions for that. Please return to the ER for any fainting, chest pain, shortness of breath worsening swelling in your legs. At this time it does not appear that you are having a heart attack. No pneumonia. This may be related to the regurgitation that is happening in your heart. Please stand up slowly when changing positions. Thank you for allowing us to care for you today. Referrals: Vanita Trevino [Primary Care Provider] - Rigoberto Diaz [ [facility] STAFF PHYSICIAN] - 2 weeks (ER follow up Near Syncope) Discharge Orders Other Ambulatory Orders: Holter Monitor (Routine) Timeframe: 1 Week Facility: [facility] - Location: Respiratory Therapy Ordered By: Arti Helm Discharge Data Discharge Date/Time-TO BE ENTERED AT DEPARTURE: 05/09/24 14:59 HPI General Mode of arrival: EMS . Date/Time Provider Initiated Documentation: 05/09/24 11:21 . Limitations to Documentation: no limitations . Information obtained by: patient, EMS, RN notes reviewed and old records reviewed . HPI Narrative: Please see paper chart Related Data Home Medications Medication Instructions Recorded Confirmed aspirin 325 mg tablet 325 mg PO DAILY 03/21/14 05/09/24 calcium carbonate 600 mg-vitamin 2 tab PO DAILY 03/21/14 05/09/24 D3 5 mcg (200 unit) tablet carboxymethylcellulose sodium 0.5 2 drp OU BID 03/21/14 05/09/24 % eye drops (Refresh Tears) cholecalciferol (vitamin D3) 10 2,000 unit PO DAILY 03/21/14 05/09/24 mcg (400 unit) tablet (Vitamin D3) folic acid 800 mcg tablet 0.8 mg PO DAILY 03/21/14 05/09/24 multivitamin (Daily Multi-Vitamin 1 tab PO DAILY 03/21/14 05/09/24 tablet) nystatin 100,000 unit/gram topical 1 ea topical TID 03/21/14 05/09/24 cream bupropion HCl 150 mg tablet,12 hr 150 mg PO QAM 05/20/20 05/09/24 sustained-release (Wellbutrin SR) cetirizine 10 mg capsule (Zyrtec) 10 mg PO DAILY 05/20/20 05/09/24 citalopram 40 mg tablet (Celexa) 20 mg PO DAILY 05/20/20 05/09/24 diphenhydramine HCl 25 mg capsule 50 mg PO HS 05/20/20 05/09/24 (Benadryl) ferrous sulfate 325 mg (65 mg 28 mg PO DAILY 05/20/20 05/09/24 iron) tablet (iron) hydrocortisone 1 % topical cream 1 applic topical BID PRN 05/20/20 05/09/24 levothyroxine 50 mcg tablet 50 mcg PO DAILY 05/20/20 05/09/24 nebulizers 05/20/20 05/09/24 nystatin 100,000 unit/gram topical 1 applic topical TID 05/20/20 05/09/24 powder rosuvastatin 20 mg tablet 20 mg PO HS 05/20/20 05/09/24 ziprasidone HCl 20 mg capsule 20 mg PO BID 05/20/20 05/09/24 (Geodon) diclofenac sodium 1 % topical gel 4 gm topical QID PRN left hip pain 05/28/20 05/09/24 6 days #100 grams guaifenesin 600 mg tablet, 600 mg PO Q12H PRN 09/11/20 05/09/24 extended release 12 hr (Mucinex) Fortifeye 1 tab PO DAILY 09/21/20 05/09/24 albuterol sulfate 90 mcg/actuation 2 puff inhalation PRN PRN 09/21/20 05/09/24 aerosol inhaler (ProAir HFA) acetaminophen 325 mg tablet 650 mg PO BID 02/16/22 05/09/24 ezetimibe 10 mg tablet (Zetia) 10 mg PO HS 02/16/22 05/09/24 fluticasone propionate 110 1 puff inhalation BID 02/16/22 05/09/24 mcg/actuation HFA aerosol inhaler (Flovent HFA) hydrochlorothiazide 25 mg tablet 25 mg PO DAILY 02/16/22 05/09/24 benzonatate 100 mg capsule 100 mg PO TID PRN cough #14 caps 01/06/23 05/09/24 amlodipine 5 mg tablet 10 mg PO 1XD 06/30/23 05/09/24 metoprolol succinate 25 mg 25 mg PO DAILY #7 tabs 06/30/23 05/09/24 tablet,extended release 24 hr losartan 25 mg tablet 25 mg PO HS 07/21/23 05/09/24 Previous Rx's Medication Instructions Recorded diclofenac sodium 1 % topical gel 4 gm topical QID PRN left hip pain 05/28/20 6 days #100 grams benzonatate 100 mg capsule 100 mg PO TID PRN cough #14 caps 01/06/23 metoprolol succinate 25 mg 25 mg PO DAILY #7 tabs 06/30/23 tablet,extended release 24 hr Allergies Allergy/AdvReac Type Severity Reaction Status Date / Time cocoa butter Allergy Intermediate Verified 08/29/23 10:22 [From Preparation H] glycerin [From Preparation H] Allergy Intermediate Verified 08/29/23 10:22 latex Allergy Intermediate Skin Rash Verified 08/29/23 10:22 lisinopril Allergy Intermediate Verified 08/29/23 10:22 mineral oil* Allergy Intermediate Verified 08/29/23 10:22 [From Preparation H] petrolatum,white Allergy Intermediate Verified 08/29/23 10:22 [From Preparation H] phenylephrine Allergy Intermediate Verified 08/29/23 10:22 [From Preparation H] shark liver oil Allergy Intermediate Verified 08/29/23 10:22 [From Preparation H] bismuth subsalicylate Allergy Mild Verified 08/29/23 10:22 [From Kaopectate (bismuth subsalicy)] General BLAIR: 3 Exam Narrative Exam Narrative: Constitutional: Alert and oriented x3. Appears stated age. Normal body habitus. Head: Normocephalic, no trauma. Eyes: Pupils PERRL, Red reflex noted, EOM's intact. Eyelids symmetrical without lesions, discharge, or swelling. ENT: Bilateral TM's WNL, External ear normal to inspection, no mastoid TTP, swelling, or erythema, Nasal turbinates WNL, no nasal discharge. Normal dentition, Posterior pharynx WNL, no exudate. Chest: RRR, Normal S1, S2, distal pulses intact. Resp: Lungs clear to auscultation bilaterally, no wheezes, rales, or rhonchi. Abdomen: Soft, non-distended, Normoactive bowel sounds all 4 quads. Musculoskeletal: Unable to assess gait, Moves all 4 extremities without difficulty. Skin: No suspicious rashes or lesions. Capillary refill less than 2 sec. Neurologic: Cranial nerves II-XII intact. Alert and oriented x 3. Motor: No deficits noted. No facial droop noted, denies any headache, pupils are PERRLA, no pronator drift. Hematologic/Lymphatic: No ecchymosis, no lymphadenopathy. Course Vital Signs Vital signs: Vital Signs Pulse 70 05/09/24 10:48 Blood Pressure 135/61 05/09/24 10:48 Pulse 70 05/09/24 10:48 Blood Pressure 135/61 05/09/24 10:48 Lab/Test Results Lab/Test Results: Laboratory Tests Range/Units 05/09/24 10:35 WBC (4.4-10.8) 10^3/uL 10.14 RBC (3.93-5.22) 10^6/uL 4.21 Hgb (11.2-15.7) g/dL 13.9 Hct (36.0-46.0) % 41.9 MCV (80-95) fL 100 H MCH (27.0-33.0) pg 33.0 MCHC (32.0-36.0) % 33.2 RDW (11.7-14.6) % 12.6 Plt Count (130-400) 10^3/uL 255 MPV (8.0-11.0) fL 9.7 Immature Gran % % 0.6 Neutrophils % % 67.6 Lymphocytes % % 22.7 Monocytes % % 7.1 Eosinophils % % 1.5 Basophils % % 0.5 Nucleated RBC % (0.0-0.3) % 0.0 Absolute Neutrophils (1.2-6.7) 10^3/uL 6.86 H Absolute Lymphocytes (1.2-3.4) 10^3/uL 2.30 Absolute Monocytes (0.1-0.8) 10^3/uL 0.72 Absolute Eosinophils (0.0-0.7) 10^3/uL 0.15 Absolute Basophils (0.0-0.2) 10^3/uL 0.05 PT (9.1-11.1) sec 9.9 INR (0.9-1.1) 1.0 APTT (23.6-32.8) sec 27.9 Medical Decision Making Please see previous documentation in paper chart. 73-year-old female presents to the ER via EMS with chief complaint of near syncopal episode, patient denies any chest pain, reports a small amount of shortness of breath, she reports that she became dizzy thought she was going to faint and sat herself down. No loss of consciousness. Denies any lower extremity swelling. Cardiac workup ordered including CBC CMP, serial troponins, IV, 243 mg of chewable baby aspirin, orthostatic vital signs ordered. Patient is hemodynamically stable at this time. Differential diagnosis includes but not limited to CT, exacerbation of CAD, CHF, aneurysm, pneumonia, vasovagal syndrome. EKG was reviewed by Nikki Helm myself and ER attending Dr. Koroma, patient does have a right bundle branch block and left anterior fascicular block, old EKG available for review, no STEMI., Initial troponin less than 50, proBNP is pending at this time, urinalysis is pending at this time. At this time serial 2-hour troponin is pending, CBC shows no leukocytosis hemoglobin hematocrit within normal limits, 1420: [facility] cardiology at [facility] called to consult with Cardiology regarding patient. 1428:Spoke with Dr. Diaz with [facility], [facility] cardiology who recommends holding her Hydrochlorathiazide at this time. I will urge close follow up with Cardiology, place an order for a holter monitor, as patient is eager to be discharged home. Will instruct on Near syncope and strict return instructions. Patient ambulatory without difficulty upon discharge from the department, she is discharged into the care of her family. This text was generated using [employer]ation system, please disregard any oddities of phrase or misspellings. Medical Records Medical records reviewed: Yes I reviewed the patient's medical records. Lab Data Lab results reviewed: Yes I reviewed the patient's lab results. Labs: Laboratory Tests Range/Units 05/09/24 05/09/24 10:35 12:09 WBC (4.4-10.8) 10^3/uL 10.14 RBC (3.93-5.22) 10^6/uL 4.21 Hgb (11.2-15.7) g/dL 13.9 Hct (36.0-46.0) % 41.9 MCV (80-95) fL 100 H MCH (27.0-33.0) pg 33.0 MCHC (32.0-36.0) % 33.2 RDW (11.7-14.6) % 12.6 Plt Count (130-400) 10^3/uL 255 MPV (8.0-11.0) fL 9.7 Immature Gran % % 0.6 Neutrophils % % 67.6 Lymphocytes % % 22.7 Monocytes % % 7.1 Eosinophils % % 1.5 Basophils % % 0.5 Nucleated RBC % (0.0-0.3) % 0.0 Absolute Neutrophils (1.2-6.7) 10^3/uL 6.86 H Absolute Lymphocytes (1.2-3.4) 10^3/uL 2.30 Absolute Monocytes (0.1-0.8) 10^3/uL 0.72 Absolute Eosinophils (0.0-0.7) 10^3/uL 0.15 Absolute Basophils (0.0-0.2) 10^3/uL 0.05 PT (9.1-11.1) sec 9.9 INR (0.9-1.1) 1.0 APTT (23.6-32.8) sec 27.9 Sodium (136-145) mmol/L 141 Potassium (3.5-5.1) mmol/L 4.0 Chloride (98-107) mmol/L 102 Carbon Dioxide (21.0-32.0) mmol/L 28.7 Anion Gap (3-11) mmol/L 10.3 BUN (7-18) mg/dL 31 H Creatinine (0.55-1.02) mg/dL 1.7 H Est GFR (CKD-EPI 2020) (mL/min/1.73m2) 31.08 Glucose (74-106) mg/dL 113 H Calcium (8.5-10.1) mg/dL 9.4 Magnesium (1.8-2.4) mg/dL 2.1 Troponin I (< or =60) ng/L < 50 < 50 NT-Pro-B Natriuret Pep (<300) pg/mL 371 H ECG Data Prior ECG tracings: available for review Core Measures Measure exclusions: not indicated Quality:[facility] Health Related Social Needs: No Data to Display PFSH All Active Problems (Updated 05/09/24 @ 14:41 by Arti Helm NP) Near syncope (Acute) Giant cell arteritis (Acute) Imbalance (Acute) Sensorineural hearing loss of both ears (Acute) Sacroiliac joint dysfunction of left side (Acute) Trochanteric bursitis, left hip (Acute) Asymmetrical sensorineural hearing loss (Acute) Medical History History of transcatheter aortic valve replacement (TAVR) 03/07/23 Malaise and fatigue History of tobacco use Obesity Depression Cervicalgia Vertigo benign, postural Macular degeneration Polyarthralgia Arthritis, rheumatoid GERD (gastroesophageal reflux disease) Emphysema of lung Heart murmur Back pain CHEMA (obstructive sleep apnea) Hypothyroidism Hemorrhoids Cervical radiculopathy History of paroxysmal supraventricular tachycardia Claudication IBS (irritable bowel syndrome) Elevated creatine kinase level Hematuria Anemia Bilateral carotid artery stenosis Trochanteric bursitis of left hip Right bundle branch block Hypertension Hyperlipidemia Cough Surgical History History of temporal artery biopsy (~06/2023) Status post insertion of iliac artery stent Social History Smoking/Tobacco Use Status: Former Tobacco Use Quit Date: 11/27/02 Smoking risk assessment performed?: Yes Alcohol Intake: current Alcohol Intake frequency: holidays/special occasions only Drug use: Never Substance use type: does not use Household members: children Housing: house Number of Children: 2 number of grandchildren: 4 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
--- NOTE | 2024-05-09 12:00 | DI.US_ITS ---
APPROVED REPORT EXAM: Comprehensive 2D, Doppler, and color-flow Echocardiogram Patient Location: ER Room/Bed: 1 Pattern Marking Supervisor: Clari Romero RDCS (AE) Indications: TAVR, Dizziness, Syncope Other Information Study Quality: Adequate. Technically limited study due to exam done bedside er. Conclusion Mild concentric left ventricular hypertrophy. Ejection fraction is 60%. Wall motion is normal Normal right ventricular size and function Both atria are normal in size Mitral annular calcification. Moderate mitral regurgitation There is a bioprosthetic aortic valve replacement. Mean gradient is 5 mmHg. There is no aortic regu rgitation Wall motion Left Ventricle The left ventricle is normal size. The left ventricular systolic function is normal. The left ventric ular ejection fraction is within the normal range. Mild concentric left ventricular hypertrophy. Ther e is normal LV segmental wall motion. There is no ventricular septal defect visualized. LVEF is 60%. Right Ventricle The right ventricle is normal size. The right ventricular systolic function is normal. Atria The left atrium size is normal. The right atrium size is normal. The interatrial septum is intact wit h no evidence for an atrial septal defect. Aortic Valve TAVR aortic valve. Mean gradient is 5 mmHg No aortic regurgitation is present. Mitral Valve Moderate mitral annular calcification. No evidence of mitral valve stenosis. Moderate mitral regurgit ation. Tricuspid Valve The tricuspid valve is normal in structure. There is no tricuspid valve stenosis. Trace tricuspid reg urgitation. Unable to assess PA pressure. Pulmonic Valve The pulmonary valve is normal in structure. There is no pulmonic valvular stenosis. There is no pulmo alie valvular regurgitation. Great Vessels The aortic root is normal in size. The ascending aorta is normal in size. Aortic arch is not well vis ualized. IVC is normal in size and collapses >50% with inspiration. Pericardium There is no pericardial effusion. 2D Dimensions IVSD d PLAX 1.10 cm F: 0.6-1.0 Ao Root d 2.47 cm F: 2.7 - 3.3 LVPW d PLAX 1.10 cm F: 0.6 - 1.0 Ao Asc Diam d 2.84 cm F: 2.3 - 3.1 LVID d PLAX 4.00 cm F: 3.8 - 5.2 LVDs 2.82 cm F: 2.2 - 3.5 LV EF Teichholz 56.4 % FS 29.05 % LV EDV (Teich) 68.8 mL LV ESV (Teich) 30.0 mL M-Mode TAPSE 2.35 cm (M/F) >1.7 Auto EF LV EDV A4C 71.3 mL LV EDV A2C 80.2 mL LV EDV BP 75.7 mL LV ESV A4C 30.6 mL LV ESV A2C 34.8 mL LV ESV BP 32.7 mL LVEF(%) A4C 57.1 % LVEF(%) A2C 56.6 % LVEF(%) BP 56.8 % LV SV A4C 40.7 ml LV SV A2C 45.3 ml LV SV BP 43.0 ml LV CO A4C 2.9 L/min LV CO A2C 3.1 L/min LV CO BP 3.0 L/min HR A4C 71.15 BPM HR A2C 69.37 BPM LV EDV Index (BP) LA Volume LA Length A4C 4.8 cm LA Length A2C 4.4 cm LA Area A4C s 17.84 cm2 LA Area A2C s 17.22 cm2 LA Vol A4C A-L 55.80 mL LA Vol A2C A-L 57.56 mL LA Vol Biplane A-L 59.6 mL LA Vol/BSA A4C A-L LA Vol/BSA A2C A-L LA Vol/BSA BP A-L 33.5 mL/m2 LA Vol A4C MOD 51.3 mL LA Vol A2C MOD 53.2 mL LA Vol BP MOD 54.9 mL RA Volume RA Area A4C 9.8 cm2 RA ESV A4C (A-L) 22.8mL RA Vol/BSA A4C A-L RA Length A4C 3.5 cm RA ESV A4C (MOD) 22.3mL LV Diastology MV E' medial 0.041 (>0.07 m/s) MV E Vmax 1.49 (0.4-1.3 m/s) MV E/E' MED 36.61 (<14) MV A Vmax 1.35 (0.4-1.3 m/s) MV E' lateral 0.056 (>0.1 m/s) E/A Ratio 1.1 MV E/E' LAT 26.65 (<14) MV E' Average 0.048 m/s MV E/E'(average) 30.85 Aortic Valve AoV Vmax 1.61 m/s LVOT Vmax 0.92 m/s AoV Peak Grad 10.4 mmHg LVOT Peak Grad 3.4 mmHg AoV Area (Vmax) 1.43 cm2 LVOT VTI 0.220 m AoV VTI 0.348 m LVOT Mean Grad 1.8 mmHg AoV Mean Guevara. 1.04 m/s LVOT SV 55.10 mL AoV Mean Grad 5.1 mmHg LVOT Diam s 1.75 cm AoV Area (VTI) 1.59 cm2 Velocity Ratio 0.57 Mitral Valve MV DT 354 (160-240 msec) MV Vmax TIPS 1.53 m/s MV Mean Grad 4.3 (<2mmHg) MV VTI 0.506 m Pulmonary Valve PV Vmax 0.82 (0.5-1.5 m/s) RVOT Vmax 0.72 m/s PV Peak Grad 2.7 mmHg RVOT Peak Gr. 2.1 mmHg PV Mean Guevara 0.60 m/s RVOT VTI 0.169 m PV Mean Grad 1.6 mmHg RVOT Mean Gr. 0.9 mmHg Tricuspid Valve RA Pressure 3.00 mmHg TV S' 0.13 m/s
[2024-05-09 12:41] LABS: Troponin I < 50 ng/L (< or =60)
--- NOTE | 2024-05-09 14:44 | NUR.NOTE ---
Referral faxed to PCP for follow up ED, near syncope, in 1 to 2 weeks, pt has up coming appt she is to keep that. Nursing Note:
== END 2024-05-09 14:59 | disposition home or self-care (01) ==
PROVIDERS: Emergency Provider Registered Nurse Emergency; PCP Nurse Practitioner Family
DX: Z95.2 Presence of prosthetic heart valve; R01.1 Cardiac murmur, unspecified; R55 Syncope and collapse; I45.10 Unspecified right bundle-branch block
CPT/HCPCS: 36415; 80048; 93005; 99284; 71045; 81003; 83735; 83880; 84484; 85025; 85610; 85730; 93010; 93306; 99283

== ENCOUNTER 2024-05-31 07:37 | Outpatient (RCR) | payer OTHER, SELFPAY ==
--- NOTE | 2024-05-31 08:15 | HOLTER_ITS ---
APPROVED REPORT Conclusion This is a 48-hour Holter monitor Rhythm throughout was sinus with an average heart rate of 75. Minimum was 60, maximum 94 There were rare isolated atrial and ventricular ectopic beats Self-limited atrial runs occurred. These were generally 5-6 beats in duration. Most seem to occur d uring sleep There was no atrial fibrillation, no high-grade AV block, no pauses greater than 3 seconds
== END 2024-06-26 23:59 | disposition home or self-care (01) ==
LOC: CARDOPNVT 07:37
PROVIDERS: PCP Nurse Practitioner Family; Visit Provider Registered Nurse Emergency
DX: R55 Syncope and collapse (principal); I49.9 Cardiac arrhythmia, unspecified
CPT/HCPCS: 93225; 93226

== ENCOUNTER 2024-06-14 01:39 | Outpatient (CLI) | payer OTHER, SELFPAY ==
--- OUTSIDE RECORDS SUMMARY | 2024-06-14 01:44 | XMS_ITS | Encounter Summary ---
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 Operator Name Role Phone Vanita Churchill Omar SPARROW Primary Care Provider [phone] Encounter Details Date Type Department Care Team (Late st Contact Info) Description 05/14/2024 Telephone Cardiology at [address] [phone] Rigoberto Diaz MD [facility] [place] [address] Social History Tobacco Use Types Packs/Day Years Used Date Smoking Tobacco: Former Cigarettes 2 30 1 12/21/1973 - 10/21/2004 Smokeless Tobacco: Never Alcohol Use Standard Drinks/Week Comments Yes 0 (1 standard drink = 0.6 oz pur e alcohol) IPV Inpatient Questions Answer Date Recorded Does Anyone Try to Keep You From Having Contact with Others or Doing Things Outside Your Home? no 03/01/2023 Feels Threatened by Someone no 03/2023 Feels Unsafe at Home or Work/School no 03/01/2023 Physical Signs of Abuse Present no 03/01/2023 Sex and Gender Information Value Date Recorded Sex Assigned at Not on file Gender Identity Not on file Sexual Orientation Not on file documented as of this encounter Miscellaneous Notes * Telephone Encounter - Ann Aponte, RN - 05/20/2024 3:[address] Diaz reports - echocardiogram looks good and does not explain the dizziness experienced. * Telephone Encounter - Neha Freire - 05/14/2024 4:09 PM EDT Patient called because she had an echo at [facility] recently. Records requested. She would like to know what Dr Diaz thinks of her echo. Please call her @ [phone] documented in this encounter Plan of Treatment Upcoming Encounters Date Type Department Care Team (Late st Contact Info) Description 02/06/2025 2:40 PM EDT Office Visit Cardiology at [address] [place] [id number] Rigoberto Diaz MD [facility] [place] [address] Scheduled Procedures Name Priority Associated Diagnoses Date/Ti me EGD, UPPER GI ENDOSCOPY (WRV U 2.09) Incontinence of feces, unspecified fecal incontinence type Dysphagia, unspecified type COLONOSCOPY, DIAGNOSTIC (WRV U 3.26) Incontinence of feces, unspecified fecal incontinence type Dysphagia, unspecified type documented as of this encounter Visit Diagnoses Not on filedocumented in this encounter Care Teams Rail Doweling Machine Operator Relationship Specialty Start Date End Date Vanita Churchill APRN PCP - General Family Medicine 02/27/19 documented as of this encounter
--- OUTSIDE RECORDS SUMMARY | 2024-06-14 01:44 | XMS_ITS | Clinical Summary ---
[place] [address] Care Team Providers Care Motor Coach Operator Name Role Phone Vanita Churchill KYARA Primary Care Provider [phone] Allergies Active Allergy Reactions Criticality Noted Date Comments [place] Butter High 01/23/2023 Glycerin High 01/23/2023 Tissue Resp Fact-Shark Fadumo Oil Other (See Comments) Low 07/18/2017 Bleeding Bismuth Subsalicylate Other (See Comments) Medium 03/28 Rectal Bleeding Latex Itching,Rash Low 10/11/2012 Lisinopril Other (See Comments) Medium 05/21/2019 coughing Mineral Oil Medium 12/17/2020 Petrolatum,White High 01/23/2023 Phenylephrine High 01/23/2023 Shark Liver Oil High 01/23/2023 Medications Medication Sig Dispensed Refills Start Date End Date Status FOLIC ACID ORAL 10/12/2010 Active ziprasidone (GEODON) 20 mg capsule Take 20 mg by mouth 2 times daily (with meals). Active aspirin 325 mg tablet Take 325 mg by mouth daily. Active CARBOXYMETHYLCELLULOS E SODIUM (REFRESH TEARS OPHT) Apply to eye 2 times daily. Active multivitamin (THERAGRAN) tablet Take 1 tablet by mouth daily. Active cetirizine (ZyrTEC) 10 mg Tablet Take 10 mg by mouth daily. Active ipratropium-albuterol (DUONEB) 0.5 mg-3 mg(2.5 mg base)/3 mL Solution for Nebulization Take 3 mLs by nebulization 2 times daily. Active iron polysaccharides (NIFEREX) 150 mg iron Capsule Take 65 mg by mouth daily. Active diphenhydrAMINE (BENADRYL) 25 mg Capsule Take 25 mg by mouth nightly as needed for Itching. Takes 2 tablets In am and 2 tablets in pm Active cholecalciferol, vitamin D3, (D3-2000 ORAL) Take by mouth. Active rosuvastatin (CRESTOR) 20 mg Tablet Take 20 mg by mouth daily. Active ezetimibe (ZETIA) 10 mg Tablet Take 10 mg by mouth daily. Active albuterol 90 mcg/actuation HFA Aerosol Inhaler Inhale 2 puffs into the lungs every 4 hours as needed for Wheezing. Use with spacer Active buPROPion SR (Wellbutrin SR) 150 mg tablet sustained-release 12 hr Take by mouth. 05/20/2020 Active diclofenac (VOLTAREN) 1 % Gel Apply topically. Active nystatin (MYCOSTATIN) Powder Apply topically 4 times daily. Active levothyroxine (Synthroid) 75 mcg Tablet 10/08/2022 Active omeprazole (PriLOSEC) [address] capsule TAKE 1 CAPSULE BY MOUTH 30 MINUTES BEFORE EVENING MEAL 01/17/2023 Active hydroCHLOROthiazide (Hydrodiuril) 12.5 mg tabletIndications:ASC VD (arteriosclerotic cardiovascular disease),Essential hypertension Take 2 tablets by mouth daily. 180 tablet 3 02/17/2023 Active acetaminophen (Tylenol) 500 mg tablet Take 2 tablets by mouth every 6 hours as needed for Pain. 03/08/2023 Active riboflavin, Vitamin B2, (Vitamin B2) 100 mg tablet Take 400 mg by mouth every morning. Active amLODIPine (Norvasc) 10 mg tablet Take 10 mg by mouth daily. 10/20/2023 Active citalopram (CeleXA) 20 mg tablet Take 20 mg by mouth daily. 10/12/2023 Active potassium chloride ER (Klor-Con, K-Tab) 10 mEq ER tablet Take 10 mEq by mouth daily. 10/12/2023 Active losartan (Cozaar) 25 mg tablet Take 25 mg by mouth daily. 10/20/2023 Active nystatin (Mycostatin) Cream Three times a day 03/21/2014 Active Flovent Diskus 100 mcg/actuation Disk with Device 2 puffs, Inhale, BID, # 60 EA, 0 Refill(s) 01/16/2023 Active cyanocobalamin, vitamin B-12, (Vitamin B-12) 500 mcg tablet Take 500 mcg by mouth three times a week (Mon, Weds, Fri). Active metoprolol succinate XL (Toprol-XL) 25 mg ER 24 hr tabletIndications:ASC VD (arteriosclerotic cardiovascular disease) Take 1 tablet by mouth daily. 90 tablet 2 03/25/2024 Active Active Problems Problem Noted Date Diagnosed Date Greater trochanteric bursitis 02/05/2024 Bilateral carotid artery stenosis 02/05/2024 Cervical radiculopathy 02/05/2024 Nonrheumatic aortic valve stenosis 03/01/2023 Overview (02/05/2024): 03/07/23: left TF TAVR. Dykes Lenard 3 Ultra RESILIA 23 mm THV Assessment & Plan (02/07/2024 8:44 AM EDT): No issues per history nor exam. - ASA 81 QD - Because the valve is not mechanical, VKA is not required for this indication - Anti-biotic prophylaxis required as directed against expected bacterial xu of at-risk procedures. I prescribed a singular dose of Keflex to be taken the day of the EGD Claudication in peripheral vascular disease 07/28 Overview (08/16/2017): 08/15/2017: Left common femoral endarterectomy and patch angioplasty, Bilateral common iliac stents (Xpress stent 8mm x 40mm bilaterally) Asthma 02/06/2017 Hypothyroidism 05/03/2016 IBS (irritable bowel syndrome) 12/21/2012 GERD (gastroesophageal reflux disease) 2 Assessment & Plan (02/08/2013 8:52 AM EDT): Barium swallow 01/2013: esophageal dysmotility and gastroesophageal reflux seen; Large~9 cm Type 1 sliding hiatal hernia present; non flow limiting esophageal web at C5 level; no difficulty with barium pill swallow. EOM 11/2012: hypotensive LES; IEM given that 5/10 swallows were peristaltic, 3 were poorly propagated and 3 were not transmitted. Garcia pH study on Aciphex 20 qd on 12/13/2012:day One Calculated DeMeester Score: 9.6 (normal up to 14.72); day 2 DeMeester score: 22; 48 hr DeMeester Score (Total): 16.3 EGD 12/06/2012: Z-line regular, 34 cm from the incisors. Mildly ringed esophagus; 7cm hiatus hernia with one Trace's erosion; Normal examined duodenum. Hyperpiesia 10/11/2012 Assessment & Plan (02/07/2024 8:43 AM EDT): Suboptimally controlled at home. Advised to increase losartan to 37.5 QD; to further increase to 50 after 1-2 weeks if SBP > 140 more often than not. Hypercholesteremia 10/11/2012 Rheumatoid arthritis(714.0) 10/11/2012 Depression 10/11/2012 COPD (chronic obstructive pulmonary disease) Macular degeneration 10/11/2012 CHEMA (obstructive sleep apnea) 04/11/2011 Resolved Problems Problem Noted Date Diagnosed Date Resolved Date Arterial disease 02/05/2024 02/05/2024 Arthritis, rheumatoid 02/05/20242023 Backache 02/05/2024 02/05/2024 Bronchitis 02/05/2024 02/05/2024 Dermatitis 02/05/2024 02/05/2024 Heart murmur 02/05/2024 02/05/2024 History of paroxysmal suprav entricular tachycardia 02/05/2024 02/05/2024 History of tobacco use 02/05/202402/04 Macular degeneration of both eyes 02/05/2024 02/05/2024 Pneumonia 02/05/2024 02/05/2024 Right bundle branch block 02/05/2024 Sacroiliac joint dysfunction of left side 02/05/2024 02/05/2024 Sensorineural hearing loss of both ears 02/05/2024 02/05/2024 Status post insertion of iliac artery stent 02/05/2024 02/05/2024 Tobacco dependence syndrome 02/05/2024 02/05/2024 Overview (02/05/2024): history of Supraventricular tachycardia 02/05/2024 02/05/2024 Overview (02/05/2024): history of Incontinent of feces 02/05/2024 024 Atrial fibrillation 04/17/2023 02/05/20 24 Overview (04/17/2023): Images from the original note were not included. 03/08/2023 Zio Patch Ambulatory Cardiac Event Monitor ?? Indication for Study: Presence of prosthetic heart valve Duration of recordin days and 15 hours Dong Rhythm Findings: ?? 1. The predominant underlying rhythm was sinus with rates ranging between 49 and 101 bpm and with an average sinus rate of 67 bpm 2. There was 1 run of ventricular tachycardia lasting 13 beats at a maximal rate of 184 bpm (average rate of 136 bpm) ? 3. There were fairly frequent runs of SVT (a total of 305) with the fastest being 14 beats at a maximal rate of 167 bpm and the longest lasting 10.3 seconds at an average rate of 133 bpm ? 4. Periods of idioventricular rhythm were present 5. There was no atrial fibrillation or flutter and no advanced AV block ? Carotid stenosis 05/28/2019 02/05/2024 Obesity (BMI 30-39.9) 07/19/20172023 Atherosclerotic PVD with int ermittent claudication 07/19/2017 02/05/2024 Seasonal allergic rhinitis 05/03/2016 0 02/05/2024 Constipation 12/21/2012 02/05/2024 Encounters Date Type Department Care Team Description 05/14/2024 Telephone Cardiology at [address] [address] Rigoberto Diaz MD 05/09/2024 Telephone Cardiology at [address] [address] Rigoberto Diaz MD 03/25/2024 Refill Cardiology at [address] [address] Anita Smith PA Medication Refill 03/15/2024 Refill Cardiology at [address] [address] Carlos De Luna PA Medication Refill from Last 3 Months Immunizations Name Administration Dates Next Due Influenza (Fluzone HD) Trivalent High Dose 08/17 Family History Medical History Relation Comments Deep Vein Thrombosis Father Myocardial Infarction Father Peripheral Vascular Disease Father Thrombophilia Father Asthma Mother Hypertension Mother Prostate Cancer Son 1 No Known Problems Son 2 Relation Status Comments Daughter Alive Father Mother Son 1 Alive Son 2 Alive Social History Tobacco Use Types Packs/Day Years Used Date Smoking Tobacco: Former Cigarettes 2 30 1 12/21/1973 - 10/21/2004 Smokeless Tobacco: Never Alcohol Use Standard Drinks/Week Comments Yes 0 (1 standard drink = 0.6 oz pur e alcohol) [facility] Inpatient Questions Answer Date Recorded Does Anyone [...] on file Sexual Orientation Not on file Last Filed Vital Signs Vital Sign Reading Time Taken Comments Blood Pressure 169/89 02/05/2024 3:59 PM EDT Pulse 87 02/05/2024 3:36 PM EDT Temperature 36.8 ??C (98.2 ??F) 03/08/2023 11:29 AM E DT Respiratory Rate 20 03/08/2023 11:29 AM EDT Oxygen Saturation 93% 01/05/2024 10:38 PM EST Inhaled Oxygen Concentration - - Weight 73.5 kg (162 lb) 02/05/2024 3:36 PM EDT Height 163.8 cm (5' 4.5) 02/05/2024 3:36 PM EDT Body Mass Index 27.38 02/05/2024 3:36 PM EDT Plan of Treatment Upcoming Encounters Date Type Department Care Team (Late st Contact Info) Description 02/06/2025 2:40 PM EDT Office Visit Cardiology at [address] [place] [address] Rigoberto Diaz MD [facility] [place] [address] Scheduled Procedures Name Priority Associated Diagnoses Date/Ti me EGD, UPPER GI ENDOSCOPY (WRV U 2.09) Incontinence of feces, unspecified fecal incontinence type Dysphagia, unspecified type COLONOSCOPY, DIAGNOSTIC (WRV U 3.26) Incontinence of feces, unspecified fecal incontinence type Dysphagia, unspecified type Health Maintenance Due Date Last Done Comments CT Colonography 1950 FIT DNA 1950 FIT 1950 Sigmoidoscopy 1950 Pneumoccocal Vaccine: 65+ (1 of 2 - PCV) 1954 Hepatitis C Screening 1966 Tdap adult 1967 Tetanus vaccine 1967 Zoster vaccine (1 of 2) 1998 Bone Density Scan 2013 Colonoscopy 12/06/2022 12/06/2012, 12/06/2012 Colorectal Cancer Screening 12/06/2022 Sigmoidoscopy (10 year) with FIT yearly 12/06/2022 0 12/06/2012, 12/06/2012 Covid-19 Vaccine ( - 2022- season) 2023 Influenza (Flu) vaccine (1 o f 1 - Influenza standard series) 07/28/2024 08/17/2017 Medical Devices Implanted Type Area Accounts Payable Manager Device Identifier Shelf Expiration Date Model / Serial / Lot Patch,Biol,Xenos ure,.8x8cm ([id number]) - [id number] Implanted:Qty: 1 on 08/15/2017 by Jake Montaño MD at [facility] IMPLANTS Left: Groin [employer] - [id number] 04/23/2023 E0.8P8 / / [id number] Stent,Xpress,Blr y,8x40mm,75cm ([id number]) - [id number] Implanted:Qty: 1 on 08/15/2017 by Jake Montaño MD at [facility] IMPLANTS Left: Arterial DO NOT USE [employer] - [id number] 05/07/2020 [id number] / / [id number] Description:Left iliac arter y. From IR inventory Stent,Xpress,Blr y,8x40mm,135 ([id number]) - [id number] Implanted:Qty: 1 on 08/15/2017 by Jake Montaño MD at [facility] IMPLANTS Right: Arterial DO NOT USE [employer] - [id number] 12/28/2019 [id number] / / [id number] Description:Right iliac yudith ry. From IR inventory Closu,Vsl,Prcl,P rgld,Smc,6fr ([id number]) - [id number] Implanted:Qty: 1 on 08/15/2017 by Jake Montaño MD at [facility] IMPLANTS Right: Arterial [employer] - [id number] 04/26/2019 05514-40 / / [id number] Description:Right groin Patch,Biol,Xenos ure,.8x8cm ([id number]) - [id number] Implanted:Qty: 1 on 06/10/2019 by Jake Montaño MD at [facility] IMPLANTS Right: Carotid [employer] - LEIMAITRE 09/23/2024 E0.8P8 / / [id number] Lenard 3 Ultra Resilia Transcatheter Heart Valve-03/07/2023 Implanted:Qty: 1 on 03/07/2023 by Mike Fraser MD IMPLANTS Heart [id number] / [id number] / Procedures Procedure Name Priority Date/Time Associated Diagnosis Comments ECHO SCAN (SCAN) 05/09/2024 12:0 0 AM EDT ECG SCAN 05/09/2024 12:00 AM EDT ECG SCAN 05/09/2024 12:00 AM EDT LAB SCAN 05/09/2024 12:00 AM EDT DIAGNOSTIC RADIOLOGY SCAN 05/09/2024 12:00 AM EDT ORDS - PROVIDER CARE SCAN 04/24/2024 12:00 AM EDT COLONOSCOPY Routine 12/06/2012 1:34 PM EST from Last 3 Months or Most Recently Relevant to Health Maintenance Results * Scan Doc: Echo (05/09/2024 12:00 AM EDT) Anatomical Region Laterality Modality Cardiac Other Narrative 05/09/2024 12:00 AM EDT Ordered by an unspecified provider. Scanning Provider MEDIA MGR SCAN EXT O RDR/RSLT * Scan Doc: Lab (05/09/2024 12:00 AM EDT) Narrative 05/09/2024 12:00 AM EDT Ordered by an unspecified provider. Scanning Provider MEDIA MGR SCAN EXT O RDR/RSLT * Scan Doc: Diagnostic Radiology (05/09/2024 12:00 AM EDT) Anatomical Region Laterality Modality Other Narrative 05/09/2024 12:00 AM EDT Ordered by an unspecified provider. Scanning Provider MEDIA MGR SCAN EXT O RDR/RSLT * Scan Doc: ECG (05/09/2024 12:00 AM EDT) Only the most recent of2 resultswithin the time period is included. Narrative 05/09/2024 12:00 AM EDT Ordered by an unspecified provider. Scanning Provider MEDIA MGR SCAN EXT O RDR/RSLT * Scan Doc: Ords - Provider Care (04/24/2024 12:00 AM EDT) Narrative 04/24/2024 12:00 AM EDT Ordered by an unspecified provider. Scanning Provider MEDIA MGR SCAN EXT O RDR/RSLT * COLONOSCOPY (12/06/2012 1:34 PM EST) [facility] Signature COLONOSCOPY [facility] Endoscopy Patient Name: Lindsey Deleon ? Procedure Date: 12/06/2012 1:34 PM ? Date of : 1950 ? Age: 61 ? Order #: [id number] ? Procedure: ? Colonoscopy Indications: ? High risk colon cancer surveillance: ? Personal history of colonic polyps Providers: ? Mik Dumont MD, Valentine Beckett ? Yvette, RN, Terrence Turk RN Referring : ?Demetra Goff MD, Citlalli Short Medicines: ? Midazolam 2.5 mg IV, Fentanyl 125 ? micrograms IV Complications: ? No immediate complications. Procedure: ? Pre-Anesthesia Assessment: ? - Prior to the procedure, a History ? and Physical was performed, and ? patient medications and allergies ? were reviewed. The patient is ? competent. The risks and benefits of ? the procedure and the sedation ? options and risks were discussed with ? the patient. All questions were ? answered and informed consent was ? obtained. Patient identification and ? proposed procedure were verified by ? the physician and the nurse in the ? procedure room. Mental Status ? Examination: alert and oriented. ? Airway Examination: normal ? oropharyngeal airway and neck ? mobility. Respiratory Examination: ? clear to auscultation. CV ? Examination: normal. Prophylactic ? Antibiotics: The patient does not ? require prophylactic antibiotics. ? Prior Anticoagulants: The patient has ? taken no previous anticoagulant or ? antiplatelet agents. ASA Grade ? Assessment: II - A patient with mild ? systemic disease. After reviewing the ? risks and benefits, the patient was ? deemed in satisfactory condition to ? undergo the procedure. The anesthesia ? plan was to use moderate sedation / ? analgesia (conscious sedation). ? Immediately prior to administration ? of medications, the patient was ? re-assessed for adequacy to receive ? sedatives. The heart rate, ? respiratory rate, oxygen saturations, ? blood pressure, adequacy of pulmonary ? ventilation, and response to care ? were monitored throughout the ? procedure. The physical status of the ? patient was re-assessed after the ? procedure. ? The procedure, indications, benefits, ? risks and alternatives were explained ? to the patient. Specifically ? discussed were potential ? complications including, but not ? limited to, bleeding, perforation, ? infection, missing a cancer, and ? adverse medication reactions. The ? patient was placed in the left ? lateral decubitus position, and a ? digital rectal exam was performed. ? The Colonoscope was inserted in the ? anus and under direct visualization, ? advanced to the terminal ileum. ? Careful inspection was made as the ? colonoscope was withdrawn. The ? colonoscopy was performed without ? difficulty. The patient tolerated the ? procedure well. The quality of the ? bowel preparation was excellent. ? Findings: ? The terminal ileum appeared normal. Multiple small ? and large-mouthed diverticula were found in the ? entire colon. The retroflexed view of the distal ? rectum and anal verge was normal and showed no anal ? or rectal abnormalities. The perianal exam was ? abnormal. Findings include non-thrombosed external ? hemorrhoids. ? Impression: ?- The examined portion of the ileum ? was normal. ? - Diverticulosis in the entire ? examined colon. ? - The distal rectum and anal verge ? are normal on retroflexion view. ? - Non-thrombosed external hemorrhoids. Recommendation: ?- Discharge patient to home. ? - Repeat colonoscopy in 5-10 years ? for surveillance. ? _ Mik Dumont MD 12/06/2012 2:25 PM Number of Addenda: 0 Note Initiated On: 12/06/2012 1:34 PM PROVATION 12/06/2012 1:34 PM EST Demetra Goff INFORMATION SCIENTIST GENERAL SURGICAL ORD ERABLES PROVATION from Last 3 Months or Most Recently Relevant to Health Maintenance Advance Directives Documents on File Type Date Recorded Patient Crocheter Hand Expl anation Advance Directives and Gino castro Will 05/21/2019 2:33 PM Advance Directives and Livin g Will 02/13/2013 12:08 PM * Attempt Cardiopulmonary Resuscitation - Inpatient (Latest Code Status on File) Date Activated Date Inactivated Comments 03/01/2023 11:18 AM 03/08/2023 3:23 PM Question Answer Comments Code Status decision made by: Patient * Attempt Cardiopulmonary Resuscitation - Inpatient Date Activated Date Inactivated Comments 01/31/2023 12:06 PM 01/31/2023 6:40 PM Question Answer Comments Code Status decision made by: Patient * Full Code Date Activated Date Inactivated Comments 06/10/2019 3:27 PM 06/11/2019 12:52 PM Question Answer Comments Does patient have capacity to make decision: Yes * Full Code Date Activated Date Inactivated Comments 06/10/2019 11:16 AM 06/10/2019 3:26 PM Question Answer Comments Does patient have capacity to make decision: Yes * Full Code Date Activated Date Inactivated Comments 08/15/2017 12:12 PM 08/17/2017 12:42 PM Question Answer Comments Does patient have capacity to make decision: Yes Healthcare Agents on File Name Relationship Healthcare Agent [facility] Communication [facility] Child Health Care Agent [facility] Care Teams Motor Coach Operator Relationship Specialty Start Date End Date Vanita Churchill APRN PCP - General Family Medicine 02/27/19
--- OUTSIDE RECORDS SUMMARY | 2024-06-14 01:44 | XMS_ITS | Encounter Summary ---
Author Organization [facility] [place] [address] Care Team Providers Care Stumper Feller Name Role Phone Vanita Churchill Omar SPARROW Primary Care Provider [phone] Encounter Details Date Type Department Care Team (Late st Contact Info) Description 05/09/2024 Telephone Cardiology at [address] [address] Rigoberto Diaz MD [facility] [place] [address] Social History Tobacco Use Types Packs/Day Years [...] encounter Miscellaneous Notes * Telephone Encounter - Rigoberto Diaz MD - 05/09/2024 2:34 PM EDT TC with the yasmani Helm at [facility] ED. Patient presented to their ED after having an episode of lightheadedness upon standing when workingin her yard. The symptoms gradually dissipated, and she presented to the ED for further evaluation. Diagnostics including echocardiography have been unremarkable. Patient was indeed orthostatic (SBP 130s supine, 100s sitting/standing) though without symptoms during the maneuver. Denies angina, dyspnea, palpitations. She wonders if patient can have an appointment for consideration of rhythm monitor application. By history, diagnosis is most certainly orthostatic in aetiology. I do not think there is a cardiaccause nor contribution here, including an arrhythmia. Adivsed to hold the HCTZ, keep BP log, and FUV with PCP. documented in this encounter Plan of Treatment Upcoming Encounters Date Type Department Care Team (Late st Contact Info) Description 02/06/2025 2:40 PM EDT Office Visit Cardiology at [address] [place] [address] Rigoberto Diaz MD [facility] [place] [address] Scheduled Procedures Name Priority Associated Diagnoses Date/Ti me EGD, UPPER GI ENDOSCOPY (WRV U 2.09) Incontinence of feces, unspecified fecal incontinence type Dysphagia, unspecified type COLONOSCOPY, DIAGNOSTIC (WRV U 3.26) Incontinence of feces, unspecified fecal incontinence type Dysphagia, unspecified type documented as of this encounter Visit Diagnoses Not on filedocumented in this encounter Care Teams Stumper Feller Relationship Specialty Start Date End Date Vanita Churchill APRN PCP - General Family Medicine 02/27/19 documented as of this encounter
--- OUTSIDE RECORDS SUMMARY | 2024-06-14 01:45 | XMS_ITS | Encounter Summary ---
[place] [address] Care Team Providers Care Marketing Compliance Manager Name Role Phone Vanita Churchill Omar SPARROW Primary Care Provider [phone] Encounter Details Date Type Department Care Team (Latest Contact Info) Description 05/05/2023 Travel Social History Tobacco Use Types Packs/Day Years [...] on file documented as of this encounter Plan of Treatment Upcoming Encounters Date Type Department Care Team (Late st Contact Info) Description 02/06/2025 2:40 PM EDT Office Visit Cardiology at [address] [address] Rigoberto Diaz MD [facility] [place] [address] Scheduled Procedures Name Priority Associated Diagnoses Date/Ti me EGD, UPPER GI ENDOSCOPY (WRV U 2.09) Incontinence of feces, unspecified fecal incontinence type Dysphagia, unspecified type COLONOSCOPY, DIAGNOSTIC (WRV U 3.26) Incontinence of feces, unspecified fecal incontinence type Dysphagia, unspecified type documented as of this encounter Visit Diagnoses Not on filedocumented in this encounter Care Teams Marketing Compliance Manager Relationship Specialty Start Date End Date Vanita Churchill APRN PCP - General Family Medicine 02/27/19 documented as of this encounter
--- OUTSIDE RECORDS SUMMARY | 2024-06-14 01:45 | XMS_ITS | Encounter Summary ---
[place] [address] Care Team Providers Care Awake Overnight Counselor Name Role Phone Kerline Vanita Nelson APRN Primary Care Provider [phone] Encounter Details Date Type Department Care Team (Late st Contact Info) Description 01/16/2024 Orders Only Sleep Center at [facility] [address] [place] [address] Alley Johnson APRN [facility] [place] [address] CHEMA treated with BiPAP Social History Tobacco Use Types Packs/Day Years Used Date Smoking Tobacco: Former Cigarettes 2 30 1 12/21/1973 - 10/21/2004 Smokeless Tobacco: Never Alcohol Use Standard Drinks/Week Comments Yes 0 (1 standard drink = 0.6 oz pur e alcohol) [facility] Inpatient Questions Answer Date Recorded Does Anyone [...] on file documented as of this encounter Progress Notes * Alley Johnson APRN - 01/16/2024 5:44 PM EST Order to [facility] for autoBPAP 10-22cw, PS4. Follow up 2-3 month after pressure change, consider overnight oximetry on autoBPAP documented in this encounter Plan of Treatment Upcoming Encounters Date Type Department Care Team (Late st Contact Info) Description 02/06/2025 2:40 PM EDT Office Visit Cardiology at [address] [place] [address] Rigoberto Diaz MD [facility] [place] [address] Scheduled Procedures Name Priority Associated Diagnoses Date/Ti me EGD, UPPER GI ENDOSCOPY (WRV U 2.09) Incontinence of feces, unspecified fecal incontinence type Dysphagia, unspecified type COLONOSCOPY, DIAGNOSTIC (WRV U 3.26) Incontinence of feces, unspecified fecal incontinence type Dysphagia, unspecified type documented as of this encounter Visit Diagnoses Diagnosis CHEMA treated with BiPAP documented in this encounter Care Teams Awake Overnight Counselor Relationship Specialty Start Date End Date Vanita Churchill APRN PCP - General Family Medicine 02/27/19 documented as of this encounter
--- OUTSIDE RECORDS SUMMARY | 2024-06-14 01:45 | XMS_ITS | Encounter Summary ---
[place] [address] Care Team Providers Care Sports Announcer Name Role Phone KwesiVanita mix Omar SPARROW Primary Care Provider [phone] Encounter Details Date Type Department Care Team (Latest Contact Info) Description 05/05/2023 12:45 PM EDT Laboratory Appointment Lab [address] [place] [id number] S/P TAVR (transcatheter aortic valve replacement) Social History Tobacco Use Types Packs/Day Years Used Date Smoking Tobacco: Former Cigarettes 2 30 1 12/21/1973 - 10/21/2004 Smokeless Tobacco: Never Alcohol Use Standard Drinks/Week Comments Yes 0 (1 standard drink = 0.6 oz pur e alcohol) [facility] Inpatient Questions Answer Date Recorded Does [...] 2:40 PM EDT Office Visit Cardiology at [address] [place] [address] Rigoberto Diaz MD [facility] [place] [address] Scheduled Procedures Name Priority Associated Diagnoses Date/Ti me EGD, UPPER GI ENDOSCOPY (WRV U 2.09) Incontinence of feces, unspecified fecal incontinence type Dysphagia, unspecified type COLONOSCOPY, DIAGNOSTIC (WRV U 3.26) Incontinence of feces, unspecified fecal incontinence type Dysphagia, unspecified type documented as of this encounter Procedures Procedure Name Priority Date/Time Associated Diagnosis Comments HEMOGRAM Routine 05/05/2023 11:24 AM EDT S/P TAVR (transcatheter aortic valve replacement) DIFFERENTIAL, AUTOMATED Routine 05/05/2023 11:24 AM EDT S/P TAVR (transcatheter aortic valve replacement) HC VENIPUNCTURE Routine 05/05/2023 11:24 AM EDT S/P TAVR (transcatheter aortic valve replacement) COMPREHENSIVE METABOLIC PANEL (NON-FASTING) Routine 05/05/2023 11:24 AM EDT S/P TAVR (transcatheter aortic valve replacement) documented in this encounter Results * (ABNORMAL) Differential, Automated (05/05/2023 11:24 AM EDT) Neutrophils % 62.9 % [facility] Neutr Abs (ANC) 6.55(H) 1.70 - 6.10 x10(3)/mc L [facility] Lymphocytes % 28.0 % [facility] Lymphocytes Abs 2.9 0.9 - 3.2 x10(3)/mc L [facility] Monocytes % 7.1 % [facility] Monocyte Abs 0.7 0.3 - 0.9 x10(3)/mc L [facility] Eosinophils % 1.2 % [facility] Eosinophils Abs 0.1 0.0 - 0.4 x10(3)/[facility] Basophils % 0.3 % [facility] Basophils Abs 0.0 0.0 - 0.1 x10(3)/[facility] Immature Gran % 0.50 % [facility] Comment: Immature granulocytes(IG's)percentage and absolute count will include metamyelocytes, myelocytes, and promyelocytes. Blood smears from CBCs yielding IG's will be scanned manually for concordance. If this scan disagrees with the automated IG or if promyelocytes are noted, a manual differential will be performed. [place] Gran Abs 0.05(H) 0.00 - 0.04 x10(3)/[facility] Blood 05/05/2023 11:2 4 AM EDT 05/05/2023 11:28 AM EDT Narrative Resulting Agency Comment Spec In Lab Mary SALINAS HEMAT[facility] [place] [address] * (ABNORMAL) Hemogram (05/05/2023 11:24 AM EDT) WBC 10.4(H) 4.0 - 9.5 x10(3)/[facility] RBC 3.89(L) 4.00 - 5.21 x10(6)/[facility] Hemoglobin 12.2 11.7 - 15.5 g/dL [facility] Hematocrit 37.7 35.7 - 45.8 % [facility] MCV 96.9(H) 82.6 - 94.[address] [facility] MCH 31.4 27.1 - 32.0 pg [facility] MCHC 32.4 31.7 - 35.0 g/dL [facility] Platelets 216 145 - 357 x10(3)/[facility] RDWSD 44.8 37.0 - 46.0 [facility] RDWCV 12.7 11.5 - 14.1 % [facility] MPV 9.4 7.6 - 12.9 [facility] nRBC % Auto 0.0 % [facility] nRBC Abs Auto 0.000 0.000 - 0.000 x10(3)/[facility] Blood 05/05/2023 11:2 4 AM EDT 05/05/2023 11:28 AM EDT Narrative Resulting Agency Comment Spec In Lab Mary SALINAS [facility]AT[facility] [place] [address] * (ABNORMAL) Comprehensive metabolic panel (non-fasting) (05/05/2023 11:24 AM EDT) Glucose Lvl 111 65 - 199 mg/dL [facility] Comment:Diabetes: >=200 mg/d L plus symptoms BUN 21(H) 8 - 18 mg/dL [facility] Creatinine 1.18 0.70 - 1.20 mg/dL [facility] Sodium 139 135 - 145 mmol/L [facility] Potassium 4.3 3.5 - 5.0 mmol/L [facility] Comment: Please note: ??Patients with WBC >100,000 may have falsely elevated Potassium levels. ??For accurate Potassium quantification in these patients send serum separator tube (gold top) for subsequent determinations. ??Contact the Clinical Chemistry Laboratory if there are any questions. Chloride 102 98 - 107 mmol/L [facility] CO2 26 22 - 31 mmol/L [facility] Anion Gap 11 5 - 15 mmol/L [facility] Calcium 9.4 8.5 - 10.5 mg/dL [facility] Total Protein 7.3 6.1 - 8.0 g/dL [facility] Albumin 4.3 3.2 - 5.2 g/dL [facility] AST 17 0 - 30 unit/L [facility] ALT 13 0 - 30 unit/L [facility] Alk Phos 73 35 - 105 unit/L [facility] Total Bilirubin 0.3 0.2 - 1.3 mg/dL [facility] Estimated GFR 48(L) >=60 mL/min/1. 73 m?? [facility] Comment: This patient's estimated GFR was calculated using the 2020 CKD-EPI equation. The estimated GFR can vary from the measured GFR by up to 30% in the absence of rapidly changing kidney function. Assessment of the estimated GFR is not appropriate when creatinine concentrations are rapidly changing. For clinical situations in which a more precise estimate of GFR is necessary, consider alternative methods of GFR estimation such as a 24-hour urine creatinine clearance. Assignment of CKD stage 1-5 for patients with an eGFR near the transition point between stages may be based on clinical assessment of muscle mass and symptoms in addition to eGFR. Blood 05/05/2023 11:2 4 AM EDT 05/05/2023 11:28 AM EDT Narrative Resulting Agency Comment Spec In Lab Rahat Joe MD CHEMISTRY ORDERABLE S Performing Organization Address City/State/[facility] Co de Phone Number [facility] [place] [address] documented in this encounter Visit Diagnoses Diagnosis S/P TAVR (transcatheter aortic valve replacement) documented in this encounter Care Teams Sports Announcer Relationship Specialty Start Date End Date Vanita Churchill APRN PCP - General Family Medicine 02/27/19 documented as of this encounter
--- OUTSIDE RECORDS SUMMARY | 2024-06-14 01:45 | XMS_ITS | Encounter Summary ---
[place] [address] Care Team Providers Care Noc Analyst Name Role Phone KwesiVanita mix Omar SPARROW Primary Care Provider [phone] Encounter Details Date Type Department Care Team (Late st Contact Info) Description 01/17/2024 Telephone Sleep Center at [facility] [address] [place] [address] Gloria Martin Social History Tobacco Use Types Packs/Day Years [...] 2:40 PM EDT Office Visit Cardiology at [address] [place] [address] [facility] [place] [address] Scheduled Procedures Name Priority Associated Diagnoses Date/Ti me EGD, UPPER GI ENDOSCOPY (WRV U 2.09) Incontinence of feces, unspecified fecal incontinence type Dysphagia, unspecified type COLONOSCOPY, DIAGNOSTIC (WRV U 3.26) Incontinence of feces, unspecified fecal incontinence type Dysphagia, unspecified type documented as of this encounter Visit Diagnoses Not on filedocumented in this encounter Care Teams Noc Analyst Relationship Specialty Start Date End Date Vanita Churchill, KYARA PCP - General Family Medicine 02/27/19 documented as of this encounter
--- OUTSIDE RECORDS SUMMARY | 2024-06-14 01:45 | XMS_ITS | Encounter Summary ---
Author Organization [facility] Address [facility] [place] [address] Care Team Providers Care Certified Real Estate Appraiser Name Role Phone KwesiVanita mix Omar SPARROW Primary Care Provider [phone] Reason for Visit * Reason Comments Medication Refill Encounter Details Date Type Department Care Team (Late st Contact Info) Description 03/25/2024 Refill Cardiology at [address] [place] [address] Anita Smith PA [facility] [place] [address] Medication Refill Social History Tobacco Use Types Packs/Day Years Used Date Smoking Tobacco: Former Cigarettes 2 30 1 12/21/1973 - 10/21/2004 Smokeless Tobacco: Never Alcohol Use Standard Drinks/Week Comments Yes 0 (1 standard drink = 0.6 oz pur e alcohol) [facility] Inpatient Questions Answer Date Recorded Does Anyone [...] 2:40 PM EDT Office Visit Cardiology at [address] [place] [address] Rigoberto Diaz MD [facility] [place] [address] Scheduled Procedures Name Priority Associated Diagnoses Date/Ti me EGD, UPPER GI ENDOSCOPY (WRV U 2.09) Incontinence of feces, unspecified fecal incontinence type Dysphagia, unspecified type COLONOSCOPY, DIAGNOSTIC (WRV U 3.26) Incontinence of feces, unspecified fecal incontinence type Dysphagia, unspecified type documented as of this encounter Visit Diagnoses Diagnosis ASCVD (arteriosclerotic cardiovascular disease) Unspecified cardiovascular disease documented in this encounter Care Teams Certified Real Estate Appraiser Relationship Specialty Start Date End Date Vanita Churchill APRN PCP - General Family Medicine 02/27/19 documented as of this encounter
--- OUTSIDE RECORDS SUMMARY | 2024-06-14 01:45 | XMS_ITS | Encounter Summary ---
[place] [address] Care Team Providers Care Textile Designs Sales Representative Name Role Phone Vanita Churchill Omar SPARROW Primary Care Provider [phone] Encounter Details Date Type Department Care Team (Latest Contact Info) Description 11/23/2023 Travel Social History Tobacco Use Types Packs/Day [...] 2:40 PM EDT Office Visit Cardiology at [address] [address] Rigoberto Diaz MD [facility] [place] [address] Scheduled Procedures Name Priority Associated Diagnoses Date/Ti me EGD, UPPER GI ENDOSCOPY (WRV U 2.09) Incontinence of feces, unspecified fecal incontinence type Dysphagia, unspecified type COLONOSCOPY, DIAGNOSTIC (WRV U 3.26) Incontinence of feces, unspecified fecal incontinence type Dysphagia, unspecified type documented as of this encounter Visit Diagnoses Not on filedocumented in this encounter Care Teams Textile Designs Sales Representative Relationship Specialty Start Date End Date Vanita Churchill APRN PCP - General Family Medicine 02/27/19 documented as of this encounter
--- OUTSIDE RECORDS SUMMARY | 2024-06-14 01:45 | XMS_ITS | Encounter Summary ---
Author Organization [facility] Address [facility] [place] [address] Care Team Providers Care Zigzag Machine Operator Name Role Phone KwesiVanita mix Omar SPARROW Primary Care Provider [phone] Reason for Visit * Reason Comments Medication Refill Encounter Details Date Type Department Care Team (Late st Contact Info) Description 03/15/2024 Refill Cardiology at [address] [address] Carlos De Luna PA [facility] [place] [address] Medication Refill Social History Tobacco Use Types Packs/Day Years Used Date Smoking Tobacco: Former Cigarettes 2 30 1 12/21/1973 - 10/21/2004 Smokeless Tobacco: Never Alcohol Use Standard Drinks/Week Comments Yes 0 (1 standard drink = 0.6 oz pur e alcohol) [facility] Inpatient Questions Answer Date Recorded Does [...] 2:40 PM EDT Office Visit Cardiology at [address] [place] [address] Rigoberto Diaz MD [facility] [place] [address] Scheduled Procedures Name Priority Associated Diagnoses Date/Ti me EGD, UPPER GI ENDOSCOPY (WRV U 2.09) Incontinence of feces, unspecified fecal incontinence type Dysphagia, unspecified type COLONOSCOPY, DIAGNOSTIC (WRV U 3.26) Incontinence of feces, unspecified fecal incontinence type Dysphagia, unspecified type documented as of this encounter Visit Diagnoses Diagnosis ASCVD (arteriosclerotic cardiovascular disease) Unspecified cardiovascular disease Essential hypertension Unspecified essential hypertension documented in this encounter Care Teams Zigzag Machine Operator Relationship Specialty Start Date End Date Vanita Churchill, LIFE SCIENCE RESEARCH ASSISTANT PCP - General Family Medicine 02/27/19 documented as of this encounter
--- OUTSIDE RECORDS SUMMARY | 2024-06-14 01:45 | XMS_ITS | Encounter Summary ---
[place] [address] Care Team Providers Care Tax Specialist Name Role Phone KwesiVanita mix Omar SPARROW Primary Care Provider [phone] Encounter Details Date Type Department Care Team (Late st Contact Info) Description 07/17/2023 8:00 AM EDT Tech [place] [address] [place], [place] Stenosis of right carotid artery; PAD (peripheral artery disease) Social History Tobacco Use Types Packs/Day Years [...] 2:40 PM EDT Office Visit Cardiology at [address] [place] [address] Rigoberto Diaz MD [facility] [place] [id number] Scheduled Procedures Name Priority Associated Diagnoses Date/Ti me EGD, UPPER GI ENDOSCOPY (WRV U 2.09) Incontinence of feces, unspecified fecal incontinence type Dysphagia, unspecified type COLONOSCOPY, DIAGNOSTIC (WRV U 3.26) Incontinence of feces, unspecified fecal incontinence type Dysphagia, unspecified type documented as of this encounter Procedures Procedure Name Priority Date/Time Associated Diagnosis Comments MARIYA, LEGS, MULTIPLE LEVELS Routine 07/17/2023 7:58 AM EDT PAD (peripheral artery disease) CAROTID DUPLEX, BILATERAL Routine 07/17/2023 7:58 AM EDT Stenosis of right carotid artery documented in this encounter Results * MARIYA, legs, multiple levels (07/17/2023 7:58 AM EDT) VB Text Report Department: Vascular Surgery Lab Patient: [id number] (LINDSEY MEHTA) CPT: 02609 Referring Physician: ELLA MARINO ?? Phone: Indications: Patient with h/o bilateral PAD, ? change in MARIYA Diabetes mellitus: No Findings: Right ?Pressure (mm Hg) ?? MARIYA ??Waveform ? Brachial Artery ?155 ? Dorsalis Pedis (Ankle) Artery ?120 ? 0.76 ??Bi-Triphasic ?? Posterior Tibial (Ankle) Artery ??126 ? 0.80 ??Biphasic ? Left ? Pressure (mm Hg) ?? MARIYA ??Waveform ? Brachial Artery ?157 ? Dorsalis Pedis (Ankle) Artery ?89 ?0.57 ??Monophasic ? Posterior Tibial (Ankle) Artery ??87 ?0.55 ??[place]-Biphasic ?? Interpretation: RIGHT: Mild lower extremity arterial occlusive disease. No identifiable change when compared to the previous exam performed on 07/15/2022. LEFT: Moderate lower extremity arterial occlusive disease. Slight deterioration when compared to previous exam performed on 07/15/2022. NOTE: Hypertension is present based on Doppler derived systolic brachial blood pressure. Previous ABIs with change from previous value: Date ?RIGHT DP ?? RIGHT PT ?? RT GR TOE ??RT Sec TOE ??0.48 ? 0.64 ? ---- ? ---- ??0.94(+.46) 0.91(+.27) ---- ? ---- ??0.85(-.09) 0.90(-.01) ---- ? ---- ??0.89(+.04) 0.91(+.01) ---- ? ---- ??0.92(+.03) 0.85(-.06) ---- ? ---- ??0.86(-.06) 0.86(+.01) ---- ? ---- ??0.85(-.01) 0.89(+.03) ---- ? ---- Current ? 0.76(-.09) 0.80(-.09) ---- ? ---- Date ?LEFT DP ?LEFT PT ?LT GR TOE LT Sec TOE ??0.48 ? 0.68 ? ---- ? ---- ??0.80(+.32) 0.84(+.16) ---- ? ---- ??0.80( .00) 0.85(+.01) ---- ? ---- ??0.87(+.07) 0.89(+.04) ---- ? ---- ??0.88(+.01) 0.88(-.01) ---- ? ---- ??0.64(-.24) 0.70(-.18) ---- ? ---- ??0.70(+.06) 0.69(-.01) ---- ? ---- Current ? 0.57(-.13) 0.55(-.14) ---- ? ---- Electronically Signed by: EVIE WILSON on 2023-07-19 10:27:23 PM VASCUBASE VB Text Report End of Report [facility] 07/17/2023 7:58 AM EDT Ella L Ned TENTERING MACHINE OFF BEARER VASCULAR ORDERABLES VASCUBASE * Carotid Duplex, Bilateral (07/17/2023 7:58 AM EDT) VB Text Report Department: Vascular Surgery Lab Patient: [id number] (LINDSEY MEHTA) CPT: 18792 Referring Physician: ELLA MARINO ?? Phone: Indications: Patient with h/o right CEA and left ICA stenosis, ? change Findings: ICA Proximal, Right ? PSV (cm/s): 84 ? EDV (cm/s): 19 ? ICA/CCA: 1.2 ? Plaque Structure: Echogenic ? Plaque Surface: Smooth ? %Stenosis: <15% ICA Distal, Right ? PSV (cm/s): 72 ? EDV (cm/s): 15 ? ICA/CCA: 1.0 CCA Distal, Right ? PSV (cm/s): 70 ? EDV (cm/s): 11 ? %Stenosis: Minimal CCA Proximal, Right ? PSV (cm/s): 68 ? EDV (cm/s): 5 External Carotid Artery, Right ? PSV (cm/s): 97 ? EDV (cm/s): 8 ? %Stenosis: <50% Vertebral, Right ? PSV (cm/s): 65 ? EDV (cm/s): 8 ? Direction of Flow: Antegrade ICA Proximal, Left ? PSV (cm/s): 83 ? EDV (cm/s): 13 ? ICA/CCA: 1.2 ? Plaque Structure: Echogenic ? Plaque Surface: Irregular ? %Stenosis: 16-49% ICA Distal, Left ? PSV (cm/s): 84 ? EDV (cm/s): 16 ? ICA/CCA: 1.2 CCA Distal, Left ? PSV (cm/s): 70 ? EDV (cm/s): 8 ? %Stenosis: <50% CCA Proximal, Left ? PSV (cm/s): 65 ? EDV (cm/s): 8 External Carotid Artery, Left ? PSV (cm/s): 163 ? EDV (cm/s): 0 ? %Stenosis: <50% Vertebral, Left ? PSV (cm/s): 39 ? EDV (cm/s): 12 ? Direction of Flow: Antegrade Interpretation: RIGHT: A thin layer of circumferential plaque is present in the common carotid artery causing minimal stenosis. There is smooth plaque in the proximal internal carotid artery causing <15% stenosis when compared to the more distal internal carotid artery. The bifurcation level is in the mid neck. No identifiable change when compared to the previous exam performed on 07/15/2022. LEFT: There is irregular plaque in the common carotid artery causing 25-30% stenosis by electronic calipers. There is irregular plaque in the proximal internal carotid artery causing 16-49% stenosis when compared to the more distal internal carotid artery. The bifurcation level is in the mid neck. No identifiable change when compared to the previous exam performed on 07/15/2022. Vertebral Artery Data: Patent vertebral arteries with normal antegrade Doppler waveforms and velocities bilaterally. Previous Carotid Studies: Date ?RIGHT ICA Stenosis ??PSV ?? Ratio ?? LEFT ICA Stenosis ?? PSV ?? Ratio ? 80-99% ? 514 ?? 8.00 ? 16-49% ? 88 ?1.20 ? <15% ? 96 ?1.20 ? n/a ?n/a ?? n/a ? <15% ? 131 ?? 2.00 ? 16-49% ? 102 ?? 1.00 ? 16-49% ? 125 ?? 1.20 ? 16-49% ? 100 ?? 0.90 ? <15% ? 100 ?? 1.00 ? 16-49% ? 102 ?? 1.00 Current Exam ? <15% ? 84 ?1.20 ? 16-49% ? 83 ?1.20 Electronically Signed by: EVIE WILSON on 2023-07-19 10:28:17 PM [facility] VB Text Report End of Report [facility] 07/17/2023 7:58 AM EDT Ella Marino APRN VASCULAR ORDERABLES [facility]CU[facility] documented in this encounter Visit Diagnoses Diagnosis Stenosis of right carotid artery Occlusion and stenosis of carotid artery without mention of cerebral infarction PAD (peripheral artery disease) Peripheral vascular disease, unspecified documented in this encounter Care Teams Tax Specialist Relationship Specialty Start Date End Date Vanita Churchill APRN PCP - General Family Medicine 02/27/19 documented as of this encounter
--- OUTSIDE RECORDS SUMMARY | 2024-06-14 01:45 | XMS_ITS | Encounter Summary ---
Author Organization [facility] [place] [address] Care Team Providers Care Paleontology Teacher Name Role Phone Vanita Churchill KYARA Primary Care Provider [phone] Encounter Details Date Type Department Care Team (Late st Contact Info) Description 05/05/2023 2:20 PM EDT Office Visit Cardiology at [address] [phone] Mike Fraser MD [facility] [place] [address] S/P TAVR (transcatheter aortic valve replacement) (Primary Dx); CHEMA (obstructive sleep apnea); Hypertension, unspecified type; Hypercholesteremia; Atherosclerotic PVD with intermittent claudication; Claudication in peripheral vascular disease; Bilateral carotid artery stenosis; Aortic valve stenosis, etiology of cardiac valve disease unspecified; Atrial fibrillation, unspecified type Social History Tobacco Use Types Packs/Day Years Used Date Smoking Tobacco: Former Cigarettes 2 30 1 12/21/1973 - 10/21/2004 Smokeless Tobacco: Never Alcohol Use Standard Drinks/Week Comments Yes 0 (1 standard drink = 0.6 oz pur e alcohol) [facility] Inpatient Questions Answer Date Recorded Does Anyone Try to Keep You From Having Contact with Others or Doing Things Outside Your Home? no 03/01/2023 Feels Threatened by Someone no 040 03/2023 Feels Unsafe at Home or Work/School no 03/01/2023 Physical Signs of Abuse Present no 03/01/2023 Sex and Gender Information Value Date Recorded Sex Assigned at Not on file Gender Identity Not on file Sexual Orientation Not on file documented as of this encounter Last Filed Vital Signs Vital Sign Reading Time Taken Comments Blood Pressure 155/62 05/05/2023 2:13 PM EDT Pulse 60 05/05/2023 2:13 PM EDT Temperature - - Respiratory Rate - - Oxygen Saturation 93% 05/05/2023 2:13 PM EDT Inhaled Oxygen Concentration - - Weight 78.7 kg (173 lb 6.4 oz) 05/05/2023 2:13 P M EDT Height 162.6 cm (5' 4) 05/05/2023 2:13 PM EDT Body Mass Index 29.76 05/05/2023 2:13 PM EDT documented in this encounter Progress Notes * Suhail Padilla, KYARA - 05/05/2023 2:20 PM EDT Images from the original note were not included. [facility] [address] [place], [place] [phone] Structural Heart Follow Up Subjective: HPI: Lindsey Deleon is a 72 y.o. female with past medical history of hypertension, hyperlipidemia, COPD/emphysema, hypothyroidism, GERD, PAD with history of left iliofemoral endarterectomy, bilateral TRE stent placement (2016) and right CEA for asymptomatic stenosis (May 2019), and status postLeft TF TAVR with 23 Ultra R Dykes 03/07/[address] Fraser. His hospital course involved a brief period of narrow complex tachycardia, rates in 150s that was successfully converted to NSR HR 70s following Labetalol 5. He was ultimately discharged with Ziopatch, metoprolol 25 daily, and ASA 325 (ophthalmology dose). Ziopatch results below in brief: Patient Diary Events: Triggered Events: There were 2 patient triggered events (button pushes), both associated with sinusrhythm with a rate in the 70-85 range Diary Events: There was 1 patient diary entry and this was associated with sinus rhythm at a normalrate The predominant underlying rhythm was sinus with rates ranging between 49 and 101 bpm and with an average sinus rate of 67 bpm 2. There was 1 run of ventricular tachycardia lasting 13 beats at a maximal rate of 184 bpm (average rate of 136 bpm) 3. There were fairly frequent runs of SVT (a total of 305) with the fastest being 14 beats at a maximal rate of 167 bpm and the longest lasting 10.3 seconds at an average rate of 133 bpm 4. Periods of idioventricular rhythm were present 5. There was no atrial fibrillation or flutter and no advanced AV block She notes feeling remarkably well. Her pre-TAVR symptoms were severe dyspnea on rest with hoe SPo2 in 60s. She now denies dyspnea on exertion and has returned to her functional baseline of a few years past. She denies chest pain, palpitations, near-syncope, or syncopal events. Denies swelling in abdomen, lower extremities, dyspnea, orthopnea, PND. Echocardiogram 05/05/2023 Preliminary findings: AUREA 1.5, MGr 9 mmHg EKG Patient Active Problem List Diagnosis Code CHEMA (obstructive sleep apnea) G47.33 GERD (gastroesophageal reflux disease) K21.9 HTN (hypertension) I10 Hypercholesteremia E78.00 Rheumatoid arthritis(714.0) M06.9 Depression F32.A COPD (chronic obstructive pulmonary disease) J44.9 Macular degeneration H35.30 IBS (irritable bowel syndrome) K58.9 Constipation K59.00 Seasonal allergic rhinitis J30.2 Hypothyroidism E03.9 Asthma J45.909 Obesity (BMI 30-39.9) E66.9 Atherosclerotic PVD with intermittent claudication I70.219 Claudication in peripheral vascular disease I73.9 Carotid stenosis I65.29 Aortic stenosis I35.0 Atrial fibrillation I48.91 ROS: 12+ ROS reviewed and negative except as detailed in the HPI. Medications: Current Outpatient Medications Medication Sig Note Dispense Refill metoprolol succinate XL (Toprol-XL) 25 mg ER 24 hr tablet Take 1 tablet by mouth daily. 90 tablet 3 acetaminophen (Tylenol) 500 mg tablet Take 2 tablets by mouth every 6 hours as needed for Pain. amLODIPine (Norvasc) 5 mg tablet Take 2 tablets by mouth daily. 90 tablet 3 hydroCHLOROthiazide (Hydrodiuril) 12.5 mg tablet Take 2 tablets by mouth daily. 180 tablet 3 omeprazole (PriLOSEC) [address] capsule TAKE 1 CAPSULE BY MOUTH 30 MINUTES BEFORE EVENING MEAL levothyroxine (Synthroid) 75 mcg Tablet nystatin (MYCOSTATIN) Powder Apply topically 4 times daily. buPROPion SR (Wellbutrin SR) 150 mg tablet sustained-release 12 hr Take by mouth. guaiFENesin ER (Mucinex) 600 mg Tablet Extended Release 12hr Take by mouth as needed. diclofenac (VOLTAREN) 1 % Gel Apply topically. albuterol 90 mcg/actuation HFA Aerosol Inhaler Inhale 2 puffs into the lungs every 4 hours as needed for Wheezing. Use with spacer cholecalciferol, vitamin D3, (D3-2000 ORAL) Take by mouth. rosuvastatin (CRESTOR) 20 mg Tablet Take 20 mg by mouth daily. ezetimibe (ZETIA) 10 mg Tablet Take 10 mg by mouth daily. iron polysaccharides (NIFEREX) 150 mg iron Capsule Take 65 mg by mouth daily. diphenhydrAMINE (BENADRYL) 25 mg Capsule Take 25 mg by mouth nightly as needed for Itching. Takes 2tablets In am and 2 tablets in pm citalopram (CELEXA) 40 mg Tablet Take 40 mg by mouth daily. ipratropium-albuterol (DUONEB) 0.5 mg-3 mg(2.5 mg base)/3 mL Solution for Nebulization Take 3 mLs by nebulization 2 times daily. 03/18/2020: prn cetirizine (ZyrTEC) 10 mg Tablet Take 10 mg by mouth daily. 03/18/2020: Takes store brand , prn fluticasone (FLOVENT) 110 mcg/actuation HFA Aerosol Inhaler Inhale 1 puff into the lungs 2 times daily. flovent diskus multivitamin (THERAGRAN) tablet Take 1 tablet by mouth daily. POLYETHYLENE GLYCOL 3350 (MIRALAX ORAL) Take by mouth as needed. ziprasidone (GEODON) 20 mg capsule Take 20 mg by mouth 2 times daily (with meals). aspirin 325 mg tablet Take 325 mg by mouth daily. CARBOXYMETHYLCELLULOSE SODIUM (REFRESH TEARS OPHT) Apply to eye 2 times daily. FOLIC ACID ORAL Objective: Vitals: Vitals: 05/05/23 1413 BP: 155/62 BP Location (NBP): Left arm Patient Position: Sitting BP Cuff Sizes: Adult (25-34 cm) Pulse: 60 SpO2: 93% Weight: 78.7 kg (173 lb 6.4 oz) Height: 162.6 cm (5' 4) Physical Exam: General: Pleasant female, no acute distress HEENT: Normocephalic, atraumatic, benign NECK: Supple, no masses, FROM CV: Normal rate, regular rhythm,Gr II JERZY, no ventricular heaves RESP: CTAB, moving air well, symmetric chest excursion GI: Soft, nd, nttp EXT: No cyanosis/clubbing, no edema, preserved distal pulses NEURO: No gross focal deficits, normal gait PSYC: Appropriate mood and affect, alert and oriented DERM: No rash, wwp Diagnostics: Recent Results (from the past 72 hour(s)) Comprehensive metabolic panel (non-fasting) Result Value Glucose Lvl 111 BUN 21 (H) Creatinine 1.18 Sodium 139 Potassium 4.3 Chloride 102 CO2 26 Anion Gap 11 Calcium 9.4 Total Protein 7.3 Albumin 4.3 AST 17 ALT 13 Alk Phos 73 Total Bilirubin 0.3 Estimated GFR 48 (L) Hemogram Result Value WBC 10.4 (H) RBC 3.89 (L) Hemoglobin 12.2 Hematocrit 37.7 MCV 96.9 (H) MCH 31.4 MCHC 32.4 Platelets 216 RDWSD 44.8 RDWCV 12.7 MPV 9.4 nRBC % Auto 0.0 nRBC Abs Auto 0.000 Differential, Automated Result Value Neutrophils % 62.9 Neutr Abs (ANC) 6.55 (H) Lymphocytes % 28.0 Lymphocytes Abs 2.9 Monocytes % 7.1 Monocyte Abs 0.7 Eosinophils % 1.2 Eosinophils Abs 0.1 Basophils % 0.3 Basophils Abs 0.0 Immature Gran % 0.50 [place] Gran Abs 0.05 (H) Assessment and Plan: Lindsey Deleon is a 72 y.o. female with past medical history of hypertension, hyperlipidemia, COPD/emphysema, hypothyroidism, GERD, PAD with history of left iliofemoral endarterectomy, bilateral TRE stent placement (2016) and right CEA for asymptomatic stenosis (May 2019), and status post LeftTF TAVR with 23 Ultra R Dykes 03/07/[address] Fraser. In review of her Ziopatch, it is reassuring that she was asymptomatic during her periods of SVT andisolated run of NSVT. Considering her rhythm was NSR, rates 67, for majority of review time, it would be reasonable to continue same metoprolol dose of 25 mg daily. Her RBBB is stable on EKG today. Severe Aortic Stenosis S/p TAVR NYHA Class 1, CCS Class 0. In review of her echo, mGr 9 mmHg from 8 mmHg with preserved LV function from preliminary review. It would be reasonable to continue with ASA 325. It is reassuring that her heart failure symptoms areimproved since TAVR. Will plan for repeat TTE and clinic follow up in 12 months. Thank you for the opportunity to participate in this patient's cardiovascular care. Discussed with Dr. Fraser. Suhail Padilla APRN Structural Heart Disease Pager [phone] 30 minutes or more were spent in review of chart, personal review of echocardiogram and EKG, examination of the patient, and formulated an assessment and plan. More than 50% of this time was spent indirect contact with the patient. documented in this encounter Plan of Treatment Upcoming Encounters Date Type Department Care Team (Late st Contact Info) Description 02/06/2025 2:40 PM EDT Office Visit Cardiology at [address] [phone] Rigoberto Diaz MD [facility] [place] [address] Scheduled Procedures Name Priority Associated Diagnoses Date/Ti me EGD, UPPER GI ENDOSCOPY (WRV U 2.09) Incontinence of feces, unspecified fecal incontinence type Dysphagia, unspecified type COLONOSCOPY, DIAGNOSTIC (WRV U 3.26) Incontinence of feces, unspecified fecal incontinence type Dysphagia, unspecified type documented as of this encounter Procedures Procedure Name Priority Date/Time Associated Diagnosis Comments EKG 12-LEAD Routine 05/05/2023 2:26 PM EDT documented in this encounter Results * EKG 12 Lead (05/05/2023 2:26 PM EDT) Ventricular rate 63 BPM MUSE SYSTEM Atrial Rate 63 BPM MUSE SYSTEM P-R Interval 150 ms MUSE SYSTEM QRS Duration 134 ms MUSE SYSTEM Q-T Interval 482 ms MUSE SYSTEM QTC Calculated (Bezet) 493 ms MUSE SYSTEM Calculated P [place] 72 degrees MUSE SYSTEM Calculated R [place] -52 degrees MUSE SYSTEM Calculated T [place] 44 degrees MUSE SYSTEM INTERPRETATION Normal sinus rhythm Left axis deviation Right bundle branch block Abnormal ECG When compared with ECG of 08-MAR-2023 11:05, No significant change was found Confirmed by MD HERNANDEZ ARMIN ([id number]) on 05/05/2023 6:50:58 PM MUSE SYSTEM 05/05/2023 2:26 PM EDT 05/05/2023 6:50 PM EDT Unknown ECG ORDERABLES MUSE SYSTEM documented in this encounter Visit Diagnoses Diagnosis S/P TAVR (transcatheter aortic valve replacement)- Primary CHEMA (obstructive sleep apnea) Obstructive sleep apnea (adult) (pediatric) Hypertension, unspecified type Hypercholesteremia Pure hypercholesterolemia Atherosclerotic PVD with intermittent claudication Atherosclerosis of upper [place] arteries of the extremities with intermittent claudication Claudication in peripheral vascular disease Peripheral vascular disease, unspecified Bilateral carotid artery stenosis Occlusion and stenosis of multiple and bilateral precerebral arteries without mention of cerebral infarction Aortic valve stenosis, etiology of cardiac valve disease unspecified Atrial fibrillation, unspecified type documented in this encounter Care Teams Paleontology Teacher Relationship Specialty Start Date End Date Vanita Churchill APRN PCP - General Family Medicine 02/27/19 documented as of this encounter
--- OUTSIDE RECORDS SUMMARY | 2024-06-14 01:45 | XMS_ITS | Encounter Summary ---
Author Organization [facility] Address [facility] [place] [address] Care Team Providers Care Prototype Sewer Name Role Phone Vanita Churchill MULTICULTURAL SERVICES LIBRARIAN Primary Care Provider [phone] Reason for Visit * Reason Comments Medical Clearance TAVR February 2023 Encounter Details Date Type Department Care Team (Late st Contact Info) Description 02/05/2024 3:20 PM EDT Office Visit Cardiology at [address] [phone] Rigoberto Diaz MD [facility] [address] Nonrheumatic aortic valve stenosis; Hyperpiesia Social History Tobacco Use Types Packs/Day Years Used Date Smoking Tobacco: Former Cigarettes 2 30 1 12/21/1973 - 10/21/2004 Smokeless Tobacco: Never Alcohol Use Standard Drinks/Week Comments Yes 0 (1 standard drink = 0.6 oz pur e alcohol) [facility] Inpatient Questions Answer Date Recorded [...] Pulse 87 02/05/2024 3:36 PM EDT Temperature - - Respiratory Rate - - Oxygen Saturation - - Inhaled Oxygen Concentration - - Weight 73.5 kg (162 lb) 02/05/2024 3:36 PM EDT Height 163.8 cm (5' 4.5) 02/05/2024 3:36 PM EDT Body Mass Index 27.38 02/05/2024 3:36 PM EDT documented in this encounter Patient Instructions * Patient Instructions* Rigoberto Diaz MD - 02/05/2024 3:20 PM EDT - increase losartan to 1.5 tablets per day. - After 2 weeks, if top number of blood pressure is greater than 140 more often than not, increase losartan to 2 tablets per day documented in this encounter Progress Notes * Rigoberto Diaz MD - 02/05/2024 3:20 PM EDT Images from the original note were not included. Subjective: Patient ID: Lindsey Mehta is a 73 y.o. female who presents on follow-up for: Chief Complaint Patient presents with Medical Clearance TAVR February 2023 HPI Last seen by Suhail Padilla 04/2023, at which time no changes were made. Since then, she has been doing well. Reasonable activity is without angina, untoward dyspnea, LH/syncope. Sbp at home 150-160s She is to have EGD/colonoscopy for IBS Current Outpatient Medications Medication Instructions acetaminophen (TYLENOL) 1,000 mg, Oral, EVERY 6 HOURS PRN albuterol 90 mcg/actuation HFA Aerosol Inhaler 2 puffs, Inhalation, EVERY 4 HOURS PRN, Use with spacer amLODIPine (NORVASC) 10 mg, Oral, DAILY aspirin 325 mg, DAILY buPROPion SR (Wellbutrin SR) 150 mg tablet sustained-release 12 hr Oral CARBOXYMETHYLCELLULOSE SODIUM (REFRESH TEARS OPHT) 2 TIMES DAILY cetirizine (ZYRTEC) 10 mg, Oral, DAILY cholecalciferol, vitamin D3, (D3-2000 ORAL) Oral citalopram (CELEXA) 20 mg, Oral, DAILY cyanocobalamin (vitamin B-12) (VITAMIN B-12) 500 mcg, Oral, THREE TIMES WEEKLY (Mon, Weds, Fri) diclofenac (VOLTAREN) 1 % Gel Topical (Top) diphenhydrAMINE (BENADRYL) 25 mg, Oral, NIGHTLY PRN, Takes 2 tablets In am and 2 tablets in pm ezetimibe (ZETIA) 10 mg, Oral, DAILY Flovent Diskus 100 mcg/actuation Disk with Device 2 puffs, Inhale, BID, # 60 EA, 0 Refill(s) FOLIC ACID ORAL hydroCHLOROthiazide (HYDRODIURIL) 25 mg, Oral, DAILY ipratropium-albuterol (DUONEB) 0.5 mg-3 mg(2.5 mg base)/3 mL Solution for Nebulization 3 mLs, Nebulization, 2 TIMES DAILY iron polysaccharides (NIFEREX) 65 mg, Oral, DAILY levothyroxine (Synthroid) 75 mcg Tablet No dose, route, or frequency recorded. losartan (COZAAR) 25 mg, Oral, DAILY metoprolol succinate XL (TOPROL-XL) 25 mg, Oral, DAILY multivitamin (THERAGRAN) tablet 1 tablet, DAILY nystatin (Mycostatin) Cream Three times a day nystatin (MYCOSTATIN) Powder Topical (Top), 4 TIMES DAILY omeprazole (PriLOSEC) [address] capsule TAKE 1 CAPSULE BY MOUTH 30 MINUTES BEFORE EVENING MEAL potassium chloride ER (Klor-Con, K-Tab) 10 mEq ER tablet 10 mEq, Oral, DAILY riboflavin (Vitamin B2) (VITAMIN B2) 400 mg, Oral, EVERY MORNING rosuvastatin (CRESTOR) 20 mg, Oral, DAILY ziprasidone (GEODON) 20 mg, 2 TIMES DAILY WITH MEALS Patient Active Problem List Diagnosis Nonrheumatic aortic valve stenosis 03/07/23: left TF TAVR. Dykes [place] 3 Ultra RESILIA 23 mm THV Greater trochanteric bursitis Bilateral carotid artery stenosis Cervical radiculopathy Claudication in peripheral vascular disease 08/15/2017: Left common femoral endarterectomy and patch angioplasty, Bilateral common iliac stents (Xpress stent 8mm x 40mm bilaterally) Asthma Hypothyroidism IBS (irritable bowel syndrome) GERD (gastroesophageal reflux disease) Hyperpiesia Hypercholesteremia Rheumatoid arthritis(714.0) Depression COPD (chronic obstructive pulmonary disease) Macular degeneration CHEMA (obstructive sleep apnea) Objective: BP 169/89 (BP Location (NBP): Left arm, Patient Position: Sitting, BP Cuff Sizes: Adult (25-34 cm)) Pulse 87 Ht 163.8 cm (5' 4.5) Wt 73.5 kg (162 lb) BMI 27.38 kg/m?? Gen: pleasant female in NAD Cor: rrr, s1/s2 of nl character and amplitude, anticipated DIMAS murmur Estimated RAP not elevated. Pulm: CTAB. Normal diaphragmatic movement without use of accessory muscles EKG: nsr via rbbb Assessment and Plan: Nonrheumatic aortic valve stenosis No issues per history nor exam. - ASA 81 QD - Because the valve is not mechanical, VKA is not required for this indication - Anti-biotic prophylaxis required as directed against expected bacterial xu of at-risk procedures. I prescribed a singular dose of Keflex to be taken the day of the EGD Hyperpiesia Suboptimally controlled at home. Advised to increase losartan to 37.5 QD; to further increase to 50after 1-2 weeks if SBP > 140 more often than not. Because of the very low risk nature of a colonoscopy/EGD, and the patient's lack of cardiovascular symptoms, the patient's risk of epi-procedural MACE mirrors the age-matched cohort. It is reasonable, as applicable, to hold the following anti-thrombotics prior to the procedure; restart as per proceduralist's guidance: Aspirin 7 days Plavix 5 days Eliquis 2 days Xarelto 3 days RTC 12 months Rigoberto Diaz MD documented in this encounter Miscellaneous Notes * Assessment & Plan Note - Rigoberto Diaz MD - 02/07/2024 8:43 AM EDT Associated Problem(s): Hyperpiesia Suboptimally controlled at home. Advised to increase losartan to 37.5 QD; to further increase to 50after 1-2 weeks if SBP > 140 more often than not. * Assessment & Plan Note - Rigoberto Diaz MD - 02/05/2024 4:11 PM EDT Associated Problem(s): Nonrheumatic aortic valve stenosis No issues per history nor exam. - ASA 81 QD - Because the valve is not mechanical, VKA is not required for this indication - Anti-biotic prophylaxis required as directed against expected bacterial xu of at-risk procedures. I prescribed a singular dose of Keflex to be taken the day of the EGD documented in this encounter Plan of Treatment Upcoming Encounters Date Type Department Care Team (Late st Contact Info) Description 02/06/2025 2:40 PM EDT Office Visit Cardiology at [address] [place] [address] Rigoberto Diaz MD [facility] [place] [address] Scheduled Procedures Name Priority Associated Diagnoses Date/Ti me EGD, UPPER GI ENDOSCOPY (WRV U 2.09) Incontinence of feces, unspecified fecal incontinence type Dysphagia, unspecified type COLONOSCOPY, DIAGNOSTIC (WRV U 3.26) Incontinence of feces, unspecified fecal incontinence type Dysphagia, unspecified type documented as of this encounter Visit Diagnoses Diagnosis Nonrheumatic aortic valve stenosis Aortic valve disorders Hyperpiesia Unspecified essential hypertension documented in this encounter Care Teams Prototype Sewer Relationship Specialty Start Date End Date Vanita Churchill APRN PCP - General Family Medicine 02/27/19 documented as of this encounter
--- OUTSIDE RECORDS SUMMARY | 2024-06-14 01:45 | XMS_ITS | Encounter Summary ---
Author Organization [facility] [place] [address] Care Team Providers Care Manager Mountain Name Role Phone Vanita Churchill KYARA Primary Care Provider [phone] Reason for Referral * Consultation (Routine) - Authorized Specialty Diagnoses / Procedures Referred By Emy castillo Referred To Contact Cardiology Diagnoses Hypertension, unspecified type Bilateral carotid artery stenosis Aortic valve stenosis, etiology of cardiac valve disease unspecified Atrial fibrillation, unspecified type Essential hypertension ASCVD (arteriosclerotic cardiovascular disease) Hypercholesteremia S/P TAVR (transcatheter aortic valve replacement) Severe aortic stenosis Aortic stenosis, severe Mike Fraser MD [facility] [place] [address] Rigoberto Diaz MD [facility] [place] [address] Referral ID Status Reason Start Date Expiration Date Visits Requested Visits Authorized [id number] Authorized Consult, Test & Treat 12/19/2023 12/18/2024 1 1 Encounter Details Date Type Department Care Team (Late st Contact Info) Description 12/19/2023 Orders Only Cardiology at [address] [phone] Mike Fraser MD [facility] [place] [address] Hypertension, unspecified type; Bilateral carotid artery stenosis; Aortic valve stenosis, etiology of cardiac valve disease unspecified; Atrial fibrillation, unspecified type; Essential hypertension; ASCVD (arteriosclerotic cardiovascular disease); Hypercholesteremia; S/P TAVR (transcatheter aortic valve replacement); Severe aortic stenosis; Aortic stenosis, severe Social History Tobacco Use Types Packs/Day Years Used Date Smoking Tobacco: Former Cigarettes 2 30 1 12/21/1973 - 10/21/2004 Smokeless Tobacco: Never Alcohol Use Standard Drinks/Week Comments Yes 0 (1 standard drink = 0.6 oz pur e alcohol) [facility] Inpatient Questions Answer Date Recorded Does [...] 2:40 PM EDT Office Visit Cardiology at [address] [phone] Rigoberto Diaz MD [facility] [place] [address] Scheduled Procedures Name Priority Associated Diagnoses Date/Ti me EGD, UPPER GI ENDOSCOPY (WRV U 2.09) Incontinence of feces, unspecified fecal incontinence type Dysphagia, unspecified type COLONOSCOPY, DIAGNOSTIC (WRV U 3.26) Incontinence of feces, unspecified fecal incontinence type Dysphagia, unspecified type Scheduled Referrals Name Type Priority Associated Diagnoses Orde r Schedule Referral to Cardiology Outpatient Referral Routine Hypertension, unspecified type Bilateral carotid artery stenosis Aortic valve stenosis, etiology of cardiac valve disease unspecified Atrial fibrillation, unspecified type Essential hypertension ASCVD (arteriosclerotic cardiovascular disease) Hypercholesteremia S/P TAVR (transcatheter aortic valve replacement) Severe aortic stenosis Aortic stenosis, severe Ordered: 12/19/2023 documented as of this encounter Visit Diagnoses Diagnosis Hypertension, unspecified type Bilateral carotid artery stenosis Occlusion and stenosis of multiple and bilateral precerebral arteries without mention of cerebral infarction Aortic valve stenosis, etiology of cardiac valve disease unspecified Atrial fibrillation, unspecified type Essential hypertension Unspecified essential hypertension ASCVD (arteriosclerotic cardiovascular disease) Unspecified cardiovascular disease Hypercholesteremia Pure hypercholesterolemia S/P TAVR (transcatheter aortic valve replacement) Severe aortic stenosis Aortic valve disorders Aortic stenosis, severe Aortic valve disorders documented in this encounter Care Teams Manager Mountain Relationship Specialty Start Date End Date Vanita Churchill, SEASONING SPRAYER PCP - General Family Medicine 02/27/19 documented as of this encounter
--- OUTSIDE RECORDS SUMMARY | 2024-06-14 01:45 | XMS_ITS | Encounter Summary ---
[place] [address] Care Team Providers Care Valve Steamer Name Role Phone Kerline Vanita Nelson APRN Primary Care Provider [phone] Reason for Visit * Diagnostic Test (Routine) - Closed Specialty Diagnoses / Procedures Referred By Emy castillo Referred To Contact Sleep Center Diagnoses CHEMA treated with BiPAP Difficulty with BiPAP use Procedures Sleep Study with Pap Titration Sleep Study with Pap Titration Alley Johnson APRN [facility] [place] [address] [facility] [address] [place] [address] Referral ID Status Reason Start Date Expiration Date V isits Requested Visits Authorized [id number] Closed Specialty Service Requested 11/23/2023 11/23/2024 1 1 Encounter Details Date Type Department Care Team (Late st Contact Info) Description 01/05/2024 7:30 PM EST Procedure visit Sleep Center at [facility] [address] [place] [id number] Matt Sutton MD [facility] [place] [address] CHEMA treated with BiPAP; Difficulty with BiPAP use Social History Tobacco Use Types Packs/Day Years [...] Sign Reading Time Taken Comments Blood Pressure 169/73 01/05/2024 10:38 PM EST Pulse 68 01/05/2024 10:38 PM EST Temperature - - Respiratory Rate - - Oxygen Saturation 93% 01/05/2024 10:38 PM EST Inhaled Oxygen Concentration - - Weight 72.6 kg (160 lb) 01/05/2024 10:38 PM EST Height 163.8 cm (5' 4.5) 01/05/2024 10:38 PM ES T Body Mass Index 27.04 01/05/2024 10:38 PM EST documented in this encounter Progress Notes * Matt Sutton MD - 01/05/2024 7:30 PM EST Images from the original note were not included. REPORT OF POSITIVE PRESSURE TITRATION IDENTIFYING INFORMATION Lindsey Deleon : 1950 PRIMARY CARE PHYSICIAN: Vanita Churchill APRN History Of Present Illness: Lindsey Deleon is a 73 y.o. female who presents for a polysomnogram. Polysomnography: The patient's sleep was evaluated for one night at [facility]. Sleep was monitored in accordance with recommended AASM guidelines. The recording also included oral/nasal airflow, chest and abdominal respiratory effort, nasal pressure, single channel EKG, intercostalEMG, bilateral tibialis EMG, and oxygen saturation (by pulse oximeter). Type of Positive Pressure Utilized: BIPAP Comment: - Sleep/EEG: The patient had a 10 Hz posterior dominant rhythm when awake with eyes closed. NREM and REM sleep were noted. Sleep efficiency was low at 44%. REM percentage was 17%. - Respiratory: BIPAP was titrated from a pressure of 21/14 cm to 22/14 cm. Pressures of 21/14 cm and 22/14 cm appeared generally be effective side NREM despite high leak values. The final pressure of22/14 cm was generally effective side and supine NREM as well as side REM despite high leak values.Some respiratory variability noted supine but the significance is unclear in light of the elevated leak values. No pressure was tested in REM supine. Saturations were maintained in the 90% range withBIPAP with a mean saturation asleep of 95% and minimum of 92%. Some transitional central apneas were noted supine late in the night at 22/14 cm. Interfaces: Hu S-M with an without chin strap tested. F20 also tested with a chin strap. Both masks demonstrated high leak values. - EKG: Normal sinus rhythm with infrequent ectopy. One brief (15 second approximately) run of a narrow complex tachycardia as pictured below from epoch 943 was noted shortly after waking in the morning. The following is a 30 second snipet from the 30 second epoch 943 illustrating the finding: - EMG: PLMI was 1. - Study Conditions: Head of the bed: flat with two pillows Supplemental oxygen: room air - Subjective: The post sleep study questionnaire indicated the following: ...how did you sleep last night: slightly better ..how well rested and alert do you feel right now: better Mask Demonstration: Patient preference not recorded. Assessment: Ms. Lindsey Deleon is a 73 y.o. female whose polysomnogram reveals a likely effective BIPAP pressure of 22/14 cm of water side (NREM and REM) and supine NREM despite elevated leak values. No pressure was tested in REM supine. Leak values were significantly elevated which hampered interpretation of this study. Since the lowest pressure tested of 21/14 cm was seemingly effective side NREM (never tested in REM or supine) it is possible lower pressures would be effective for this patient. Lower pressures might also reduce the mask leak. A full night BIPAP titration starting at significantly lower pressures (ie 14/10 cm) could be considered. Alternately use of auto BIPAP 10-22 cmwith a pressure support of 4 cm could be considered. Mask refitting is also recommended. ECG is also notable for an approximately 15 second run of a narrow complex tachycardia as pictured above upon awakening. Elevated BP of 169/73 noted prior to the sleep study. Results and recommendations relayedjessica Jackson. Recommendations: 1) Auto BIPAP set at a pressure range of 10-22 cm with a pressure support of 4 cm with a better fitting mask could be considered. To be arranged by KYARA Johnson. 2) Follow up with KYARA Johnson approximately 6 weeks after starting the pressure to assess outcome. 3) Consider full night BIPAP titration starting at a lower pressure ie 14/10 cm 4) KYARA Johnson to consider overnight oximetry on auto BIPAP if this modality is used to determine the adequacy of saturations as 21/14 cm was the lowest pressure tested on this study. 5) Follow up with Vanita Churchill APRN in regards to the narrow complex tachycardia pictured above. Similar finding noted on her 2017 sleep study. 6) Follow up with Vanita Churchill APRN and blood pressure monitoring in regards to the blood pressure of 169/73 prior to this sleep study. [facility] REPORT OF TITRATION POLYSOMNOGRAPHY Patient Lindsey Deleon Study Date 01/05/2024 1950 Age 73 Height 5'4.5 Weight (lbs.) 160 BMI 27.0 PSG Tech: JUAN Solorzano Scoring Tech JUAN Ríos, [employer] SPECIALIST Interpreting Physician Dr. Matt Sutton MD Ordering Provider Primary Physician Scoring Technologist Comments: ECG: Sinus Rhythm Ectopy: Epochs 37, 466,729, 943 Description of Study: Diagnostic polysomnography was performed utilizing frontal, central & occipital EEG, EOG, submentalis EMG, oronasal thermocouple, nasal pressure, ECG, thoracic and abdominalinductance plethysmography, right and left anterior tibialis EMG, snore sensor, and pulse oximetry according to AASM established guidelines. Study Details & Sleep Architecture Diagnostic Start Time (Lights Off): 20:38:33 Total Recording Time: 477.0 min Diagnostic End Time (Lights On): 04:35:33 Total Sleep Time (minutes): 212.0 Total Num. of Stage Shifts: 148 Total Sleep Time (hrs:min): 3:32.0 Total Num. of Awakenings: 35 Sleep Onset Latency: 112.5 min Total Num. of Trans. to N1: 42 Sleep Efficiency: 44.4% Total Num. of REM Periods: 1 Stage Results: Time (minutes) %TST Latency (minutes) WASO: 152.5 - - N1: 27.0 12.7 0.0 N2: 131.5 62.0 0.5 N3: 17.0 8.0 9.5 REM: 36.5 17.2 311.5 175.5 (minus wake) Arousal Counts: NREM REM Total Spontaneous: 45 (15.4/hr) 5 (8.2/hr) 50 (14.2/hr) Sum of All Arousals: 59 (20.2/hr) 6 (9.9/hr) 65 (18.4/hr) Spontaneous arousals include only EEG arousals not associated with a respiratory event or PLM. Body Position: Supine Non-Supine Non-REM: 41.0 min 134.5 min REM: 0.0 min 36.5 min Total Sleep: 41.0 min (19.3%) 171.0 min (80.7%) Respiratory Events Apneas Obstructive Mixed Central Total Apneas Total Count: 0 0 5 5 Mean Duration (sec): 0 0 10 10 Longest Duration (sec): 0 0 10.0 10 Index (REM/NREM): 0.0 / 0.0 0.0 / 0.0 0.0 / 1.7 0.0/ 1.7 Index (Sup./Non-Sup.): 0.0 / 0.0 0.0 / 0.0 7.3 / 0.0 7.3/ 0.0 Index (Total): 0.0 0.0 1.4 1.4 Hypopneas & RERAs Hypopnea* CMS Hypopnea AASM Central Hypopneas Hypopneas All RERA Total Count: 1 16 0 16 0 Mean Duration (sec): 21.1 27.7 - 28 0 Longest Duration (sec): 21.1 56.0 0.0 56 0 Index (REM/NREM): 0.0/0.3 1.6/5.1 0.0/0.0 1.6/ 5.1 0.0 0.0 Index (Sup./Non-Sup.): 1.5 / 0.0 13.2/ 2.5 0/0 13.2/ 2.5 0.0 / 0.0 Index (Total): 0.3 4.5 0.0 4.5 0.0 *CMS-defined hypopneas include only hypopneas with a >=4% oxygen desaturation. Includes hypopneas with an arousal or with a 3%-4% desaturation. Periodic Breathing Total Sleep Time Time (minutes) 0.0 Time (%Sleep Time) 0.0 AHI: Includes all apneas & all hypopneas associated with an arousal or a ? 3% desaturation. Supine Non-Sup. REM NREM Total Count: 14 7 1 20 21 Index (events/hr): 20.5 2.5 1.6 6.8 AHI = 5.9 CMS AHI: Includes all apneas & only hypopneas associated with a ? 4% desaturation. Supine Non-Sup. REM NREM Total Count: 6 0 0 6 6 Index (events/hr): 8.8 0.0 0.0 2.1 CMS = 1.7 Obstructive AHI: Includes obstructive & mixed apneas as well as all hypopneas. Excludes centralapneas and RERAs. Supine Non-Sup. REM NREM Total Count: 9 7 1 15 16 Index (events/hr): 13.2 2.5 1.6 5.1 OAHI = 4.5 RDI: Includes all apneas, all hypopneas, all RERAs, and all 'Unsure' events. Supine Non-Sup. REM NREM Total Count: 14 7 1.0 19.9 21 Index (events/hr): 20.5 2.5 1.6 6.8 RDI = 5.9 Oxygen Saturation Details (Overall) SpO2 Awake NREM REM All Sleep TATY Report Sleep Mean: 96% 95% 95% 95% 3% TATY 3.3 1.4 Minimum: - 92% 93% 92% 4% TATY 1.3 0.8 SpO2 Awake (minutes) NREM (minutes) REM (minutes) All Sleep (minutes) ?90% 0.0 0.0 0.0 0.0 ?89% 0.0 0.0 0.0 0.0 ?88% 0.0 0.0 0.0 0.0 90-99% 236.5 175.2 36.5 211.7 80-89.9% 0.0 0.0 0.0 0.0 79-79.9% 0.0 0.0 0.0 0.0 60-69.9% 0.0 0.0 0.0 0.0 50-59.9% 0.0 0.0 0.0 0.0 ?50% 0.0 0.0 0.0 0.0 Cardiac Details Heart Rate (bpm) Total Study NREM REM All Sleep Minimum - 43 64 43 Maximum 124 92 74 92 Mean - 68 68 68 Limb Movement Details Periodic Limb Movements Total PLMs (and Index) PLMs w/ Arousals (and Index) Wake (after 'Lights Off'): 0 (0.0/hr) 0 (0.0/hr) NREM: 4 (1.4/hr) 1 (0.3/hr) REM: 0 (0.0/hr) 0 (0.0/hr) Total Sleep: 4 (1.1/hr) 1 (0.3/hr) Pressure Analysis Time (hh:mm:ss) IP/EP/O2 TST Supine Non-Sup. REM Non-REM REM Sup. 0 0 0:54:36.0 2:37:24.0 0:00:0.0 0:41:0.0 0:54:36.0 1:56:24.0 0:00:0.0 0:36:30.0 0:54:36.0 2:00:54.0 0:00:0.0 0:00:0.0 Respiratory Event Counts IP/EP/O2 Obstr. Ap. Mixed Ap. Central Ap. Hypopneas* RERAs 0 0 0 0 0 0 0 5 0 16 0 0 *Includes all types of hypopneas: those associated with arousals or ?3% desaturations. Respiratory Indices (events per hour) IP/EP/O2 OAI EMILY LEFTY HI* RDI /0 0 0.0 0.0 0.0 0.0 0.0 1.9 0.0 6.1 0.0 8.0 *Includes all types of hypopneas: those associated with arousals or ?3% desaturations. Respiratory Indices (events per hour) IP/EP/O2 AHI Supine Non-Sup. REM Non-REM 0 /0 0.0 8.0 0.0 20.5 0.0 3.6 0.0 1.6 0.0 9.9 *Includes all types of hypopneas: those associated with arousals or ?3% desaturations. Oxygen Saturations IP/EP/O2 Minimum Mean 0 0 93 92 94 95 Graphs CPAP/Bi-Level PLMs Body Position . documented in this encounter Plan of Treatment Upcoming Encounters Date Type Department Care Team (Late st Contact Info) Description 02/06/2025 2:40 PM EDT Office Visit Cardiology at [address] [place] [id number] Rigoberto Diaz MD [facility] [place] [address] Scheduled Procedures Name Priority Associated Diagnoses Date/Ti me EGD, UPPER GI ENDOSCOPY (WRV U 2.09) Incontinence of feces, unspecified fecal incontinence type Dysphagia, unspecified type COLONOSCOPY, DIAGNOSTIC (WRV U 3.26) Incontinence of feces, unspecified fecal incontinence type Dysphagia, unspecified type documented as of this encounter Visit Diagnoses Diagnosis CHEMA treated with BiPAP Difficulty with BiPAP use documented in this encounter Care Teams Valve Steamer Relationship Specialty Start Date End Date Vanita Churchill APRN PCP - General Family Medicine 02/27/19 documented as of this encounter
--- OUTSIDE RECORDS SUMMARY | 2024-06-14 01:45 | XMS_ITS | Encounter Summary ---
[place] [address] Care Team Providers Care A Auxiliary Name Role Phone Vanita Churchill APRN Primary Care Provider [phone] Reason for Referral * Diagnostic Test (Routine) - Closed Specialty Diagnoses / Procedures Referred By Emy castillo Referred To Contact Cardiology Diagnoses Severe aortic stenosis Procedures Echocardiogram Transthoracic Jassi Lantigua MD [facility] [place] [address] [facility] [place] [address] Referral ID Status Reason Start Date Expiration Date V isits Requested Visits Authorized [id number] Closed Specialty Service Requested 02/23/2023 02/23/2024 1 1 Reason for Visit * Diagnostic Test (Routine) - Closed Specialty Diagnoses / Procedures Referred By Emy castillo Referred To Contact Cardiology Diagnoses Severe aortic stenosis Procedures Echocardiogram Transthoracic Jassi Lantigua MD [facility] [place] [address] [facility] [place] [address] Referral ID Status Reason Start Date Expiration Date V isits Requested Visits Authorized [id number] Closed Specialty Service Requested 02/23/2023 02/23/2024 1 1 Encounter Details Date Type Department Care Team (Latest Contact Info) Description 05/05/2023 11:49 AM EDT - 05/05/2023 11:59 PM EDT Hospital Encounter [place] [phone] Edwige Nieves, FIRE PROTECTION SPECIALIST [facility] [place] [id number] Severe aortic stenosis Discharge Disposition: Home Social History Tobacco Use Types Packs/Day Years [...] on file documented as of this encounter Medications at Time of Discharge Medication Sig Dispensed Refills Start Date End Date nystatin (Mycostatin) Cream Three times a day 03/21/2014 Flovent Diskus 100 mcg/actuation Disk with Device 2 puffs, Inhale, BID, # 60 EA, 0 Refill(s) 01/16/2023 acetaminophen (Tylenol) 500 mg tablet Take 2 tablets by mouth every 6 hours as needed for Pain. 03/08/2023 hydroCHLOROthiazide (Hydrodiuril) 12.5 mg tabletIndications:ASCVD (arteriosclerotic cardiovascular disease),Essential hypertension Take 2 tablets by mouth daily. 180 tablet 3 02/17/2023 omeprazole (PriLOSEC) [address] capsule TAKE 1 CAPSULE BY MOUTH 30 MINUTES BEFORE EVENING MEAL 01/17/2023 levothyroxine (Synthroid) 75 mcg Tablet 10/08/2022 nystatin (MYCOSTATIN) Powder Apply topically 4 times daily. buPROPion SR (Wellbutrin SR) 150 mg tablet sustained-release 12 hr Take by mouth. 05/20/2020 diclofenac (VOLTAREN) 1 % Gel Apply topically. [...] In am and 2 tablets in pm ipratropium-albuterol (DUONEB) 0.5 mg-3 mg(2.5 mg base)/3 mL Solution for Nebulization Take 3 mLs by nebulization 2 times daily. cetirizine (ZyrTEC) 10 mg Tablet Take 10 mg by mouth daily. multivitamin (THERAGRAN) tablet Take 1 tablet by mouth daily. ziprasidone (GEODON) 20 mg capsule Take 20 mg by mouth 2 times daily (with meals). aspirin 325 mg tablet Take 325 mg by mouth daily. CARBOXYMETHYLCELLULOSE SODIUM (REFRESH TEARS OPHT) Apply to eye 2 times daily. FOLIC ACID ORAL 10/12/2010 hydrocortisone 1 % Cream Twice a day 05/20/2020 02/05/2024 oxygen-air delivery systems ([employer] [facility] Supply, See instructions, # 1 EA, 0 Refill(s) 01/16/2023 02/05/2024 metoprolol succinate XL (Toprol-XL) 25 mg ER 24 hr tablet Take 1 tablet by mouth daily. 90 tablet 3 03/27/2023 03/25/2024 amLODIPine (Norvasc) 5 mg tabletIndications:ASCVD (arteriosclerotic cardiovascular disease),Essential hypertension Take 2 tablets by mouth daily. 90 tablet 3 03/08/2023 07/05/2023 guaiFENesin ER (Mucinex) 600 mg Tablet Extended Release 12hr Take by mouth as needed. 09/11/2020 02/05/2024 citalopram (CELEXA) 40 mg Tablet Take 20 mg by mouth daily. 11/23/2023 fluticasone (FLOVENT) 110 mcg/actuation HFA Aerosol Inhaler Inhale 1 puff into the lungs 2 times daily. flovent diskus 11/23/2023 POLYETHYLENE GLYCOL 3350 (MIRALAX ORAL) Take by mouth as needed. 02/05/2024 documented as of this encounter Plan of Treatment Upcoming Encounters Date Type Department Care Team (Late st Contact Info) Description 02/06/2025 2:40 PM EDT Office Visit Cardiology at [address] [phone] Rigoberto Diaz MD [facility] [place] [id number] Scheduled Procedures Name Priority Associated Diagnoses Date/Ti me EGD, UPPER GI ENDOSCOPY (WRV U 2.09) Incontinence of feces, unspecified fecal incontinence type Dysphagia, unspecified type COLONOSCOPY, DIAGNOSTIC (WRV U 3.26) Incontinence of feces, unspecified fecal incontinence type Dysphagia, unspecified type documented as of this encounter Procedures Procedure Name Priority Date/Time Associated Diagnosis Comments ECHO COMPLETE Routine 05/05/2023 2:04 PM EDT Severe aortic stenosis documented in this encounter Results * ECHO COMPLETE (05/05/2023 2:04 PM EDT) EF 74 HEARTLAB SYSTEM Anatomical Region Laterality Modality Cardiac Other 05/05/2023 1:20 PM EDT Narrative 05/05/2023 2:49 PM EDT ? Echocardiogram Report Name: LINDSEY DELEON ? Study Date: 05/05/2023 01:20 PM ? Patient Location: [address] [place] [address] : 1950 ? Height: 160 cm ? Account: [id number] Age: 72 yrs ? Weight: 77 kg Gender: Female ?BSA: 1.8 m2 Ordering Physician: EDWIGE NIEVES Referring Physician: JASSI LANTIGUA Performed By: Gianna Freedman RDCS Reason For Study: S/P TAVR Exam Location: [facility]. Interpretation Summary 1. Normal biventricular size and systolic function. LVEF is 74% by Bailey's biplane. 2. There is a bioprosthetic valve in the aortic position, known to be a 23 mm S3 Ultra R TAVR implanted on 03/07/23. It appears well seated with normal function. There is trace paravalvular leak. Peak and mean gradients across the valve are 21 and 9 mmHg, respectively. DVI is 0.54. 3. There is heavy mitral annular calcification. The mean gradient across the mitral valve is 4 mmHg at 59 npm. Mild mitral regurgitation. 4. When compared to the immediate post-procedural study of 03/07/23, prosthetic valve function is stable. See body of report for complete details. Procedure Complete-[id number]. Satisfactory quality. There is normal sinus rhythm. Left Ventricle Left ventricle is of normal size. Wall thickness is normal. There is no ventricular septal defect. There is calcification of the papillary muscles. Left ventricular systolic function is normal. The left ventricular ejection fraction is 74% by Bailey's biplane. There are no segmental wall motion abnormalities. Right Ventricle The right ventricle is of normal size. Right ventricular systolic function is normal. Left Atrium The left atrium is mildly dilated. Right Atrium The right atrium is normal. Aortic Valve The highest gradient is obtained from the apical window. There appears to be no intravalvular regurgitation. There is a transcatheter valve in the aortic position. There appears to be trace paravalvular regurgitation. The aortic prosthetic valve appears to be functioning normally. The date or year of insertion is 03/07/23. There is a 23 mm aortic prosthesis. The peak gradient across the prosthesis is 21 mmHg. The mean gradient across the prosthesis is 9 mmHg. Mitral Valve The mitral valve leaflets are thickened. There is heavy mitral annular calcification. The estimated mean gradient across the mitral valve is 4 mmHg. Heart rate: 59 beats per minute. There is mild mitral regurgitation. Tricuspid Valve The tricuspid valve is structurally and functionally normal. There is mild tricuspid regurgitation. Pulmonic Valve The pulmonic valve is not well visualized. There is no valvular pulmonic stenosis. There is mild pulmonic valve regurgitation. Great Arteries The aortic root is of normal size. No abnormalities are identified. Ascending aorta is normal in size. Pericardium/Pleural There is no pericardial effusion. A pericardial fat pad is present. Hemodynamics The estimated right atrial pressure is 3mmHg. Unable to assess diastolic function. Ejection Fraction ?2D Measurements ? Volumes EF(MOD-bp): 74.3 % ?IVSd: 1.1 cm ? LAV(MOD- bp) Indexed: ?LVIDd: 4.1 cm ?38.7 ml/m2 ?LVIDs: 2.3 cm ?LVPWd: 1.1 cm ?RA A4Cs_phl: 12.9 cm2 ?LV mass(C)d: 150.6 grams ? EDV (MOD-bp) Index: 52.8 ? ESV (MOD-bp) Index: 13.6 ?LV mass(C)dI: 83.5 grams/m2 ?SV(LVOT): 74.6 ml ?Ao root diam: 2.5 cm ? LV Stroke Volume: 74.5 ml ?Ao root diam index: 1.4 ?asc Aorta Diam: 2.9 cm ? SI(LVOT): 41.3 ml/m2 ?LVOT diam: 1.9 cm Doppler LV V1 VTI: 26.9 cm LVOT max Velocity: 112.8 cm/sec Ao V2 VTI: 49.7 cm Ao Max: 226.3 cm/sec Ao valve max: 20.5 mmHg Ao valve mean: 9.0 mmHg MV E max guevara: 168.8 cm/sec MV A max guevara: 115.3 cm/sec MV E/A: 1.5 MV dec time: 0.44 sec Lat Peak E' Guevara: 7.0 cm/sec E/ e' (lat): 24.2 Med Peak E' Guevara: 5.3 cm/sec E/e' (med): 31.6 E/e' Average: 27.9 AUREA(I,D): 1.5 cm2 Dimensionless index Aov: 0.54 MV mean P.2 mmHg I ?WMSI = 1.00 ? % Normal = 100 ?Segments ??Size X - Cannot ?? 1 - Normal ?? 2 - ? 3 - Akinetic 4 - ?1-2 ? small Interpret ? Hypokinetic ?Dyskinetic ?? 3-5 ? moderate 5 - ? 6-14 ?large Aneurysmal ?15-16 ?? diffuse Procedure Note Savanna Valenzuela MD - 05/05/2023 Echocardiogram Report Name: DELEON LINDSEY Mtz Study Date: 301:20 PM Patient Location: [id number] : 1950 Height: 160 cm Account: [id number] Age: 72 yrs Weight: 77 kg Gender: Female BSA: 1.8 m2 Ordering Physician: EDWIGE NIEVES Referring Physician: JASSI LANTIGUA Performed By: Gianna Freedman RDCS Reason For Study: S/P TAVR Exam Location: [facility]. Interpretation Summary 1. Normal biventricular size and systolic function. LVEF is 74% bySimpson's biplane. 2. There is a bioprosthetic valve in the aortic position, known to be a 23mm S3 Ultra R TAVR implanted on 03/07/23. It appears well seated with normalfunction. There is trace paravalvular leak. Peak and mean gradients across the valveare 21 and 9 mmHg, respectively. DVI is 0.54. 3. There is heavy mitral annular calcification. The mean gradient acrossthe mitral valve is 4 mmHg at 59 npm. Mild mitral regurgitation. 4. When compared to the immediate post-procedural study of 03/07/23,prosthetic valve function is stable. See body of report for complete details. Procedure Complete-[id number]. Satisfactory quality. There is normal sinus rhythm. Left Ventricle Left ventricle is of normal size. Wall thickness is normal. There is no ventricular septal defect. There is calcification of the papillarymuscles. Left ventricular systolic function is normal. The left ventricular ejectionfraction is 74% by Bailey's biplane. There are no segmental wall motionabnormalities. Right Ventricle The right ventricle is of normal size. Right ventricular systolic functionis normal. Left Atrium The left atrium is mildly dilated. Right Atrium The right atrium is normal. Aortic Valve The highest gradient is obtained from the apical window. There appears rajwinder no intravalvular regurgitation. There is a transcatheter valve in theaortic position. There appears to be trace paravalvular regurgitation. Theaortic prosthetic valve appears to be functioning normally. The date or year ofinsertion is 03/07/23. There is a 23 mm aortic prosthesis. The peak gradient acrossthe prosthesis is 21 mmHg. The mean gradient across the prosthesis is 9mmHg. Mitral Valve The mitral valve leaflets are thickened. There is heavy mitral annular calcification. The estimated mean gradient across the mitral valve is 4mmHg. Heart rate: 59 beats per minute. There is mild mitral regurgitation. Tricuspid Valve The tricuspid valve is structurally and functionally normal. There ismild tricuspid regurgitation. Pulmonic Valve The pulmonic valve is not well visualized. There is no valvular pulmonicstenosis. There is mild pulmonic valve regurgitation. Great Arteries The aortic root is of normal size. No abnormalities are identified.Ascending aorta is normal in size. Pericardium/Pleural There is no pericardial effusion. A pericardial fat pad is present. Hemodynamics The estimated right atrial pressure is 3mmHg. Unable to assess diastolicfunction. Ejection Fraction 2D Measurements Volumes EF(MOD-bp): 74.3 % IVSd: 1.1 cm LAV(MOD-bp)Indexed: LVIDd: 4.1 cm 38.7 ml/m2 LVIDs: 2.3 cm LVPWd: 1.1 cm RA A4Cs_phl: 12.9cm2 LV mass(C)d: 150.6 grams EDV (MOD-bp)Index: 52.8 ESV (MOD-bp)Index: 13.6 LV mass(C)dI: 83.5 grams/m2 SV(LVOT): 74.6ml Ao root diam: 2.5 cm LV Stroke Volume:74.5 ml Ao root diam index: 1.4 asc Aorta Diam: 2.9 cm SI(LVOT): 41.3ml/m2 LVOT diam: 1.9 cm Doppler LV V1 VTI: 26.9 cm LVOT max Velocity: 112.8 cm/sec Ao V2 VTI: 49.7 cm Ao Max: 226.3 cm/sec Ao valve max: 20.5 mmHg Ao valve mean: 9.0 mmHg MV E max guevara: 168.8 cm/sec MV A max guevara: 115.3 cm/sec MV E/A: 1.5 MV dec time: 0.44 sec Lat Peak E' Guevara: 7.0 cm/sec E/ e' (lat): 24.2 Med Peak E' Guevara: 5.3 cm/sec E/e' (med): 31.6 E/e' Average: 27.9 AUREA(I,D): 1.5 cm2 Dimensionless index Aov: 0.54 MV mean P.2 mmHg I WMSI = 1.00 % Normal = 100 SegmentsSize X - Cannot 1 - Normal 2 - 3 - Akinetic 4 - 1-2small Interpret Hypokinetic Dyskinetic 3-5moderate 5 - 6-14large Aneurysmal 15-16diffuse Edwige Nieves APRN ECHO ORDERABLES documented in this encounter Visit Diagnoses Diagnosis Severe aortic stenosis Aortic valve disorders documented in this encounter Care Teams A Auxiliary Relationship Specialty Start Date End Date Vanita Churchill APRN PCP - General Family Medicine 02/27/19 documented as of this encounter
--- OUTSIDE RECORDS SUMMARY | 2024-06-14 01:45 | XMS_ITS | Encounter Summary ---
[place] [address] Care Team Providers Care Supply Chain Manager Name Role Phone Kwesidominguez Vanita Dominguez SPARROW Primary Care Provider [phone] Encounter Details Date Type Department Care Team (Late st Contact Info) Description 05/05/2023 2:30 PM EDT Office Visit Cardiology at [address] [phone] S/P TAVR (transcatheter aortic valve replacement) Social History Tobacco Use Types Packs/Day Years Used Date Smoking Tobacco: Former Cigarettes 2 30 1 12/21/1973 - 10/21/2004 Smokeless Tobacco: Never Alcohol Use Standard Drinks/Week Comments Yes 0 (1 standard drink = 0.6 oz pur e alcohol) [facility] Inpatient Questions Answer Date Recorded Does [...] as of this encounter Progress Notes * Keshia Crooks RN - 05/05/2023 2:30 PM EDTSummary: Structural Heart Note N/A Meds not reviewed documented in this encounter Plan of Treatment Upcoming Encounters Date Type Department Care Team (Late st Contact Info) Description 02/06/2025 2:40 PM EDT Office Visit Cardiology at [address] [place] [address] Rigoberto Diaz MD [facility] [place] [address] Scheduled Procedures Name Priority Associated Diagnoses Date/Ti me EGD, UPPER GI ENDOSCOPY (WRV U 2.09) Incontinence of feces, unspecified fecal incontinence type Dysphagia, unspecified type COLONOSCOPY, DIAGNOSTIC (WRV U 3.26) Incontinence of feces, unspecified fecal incontinence type Dysphagia, unspecified type documented as of this encounter Visit Diagnoses Diagnosis S/P TAVR (transcatheter aortic valve replacement) documented in this encounter Care Teams Supply Chain Manager Relationship Specialty Start Date End Date Vanita Churchill APRN PCP - General Family Medicine 02/27/19 documented as of this encounter
--- OUTSIDE RECORDS SUMMARY | 2024-06-14 01:45 | XMS_ITS | Encounter Summary ---
[place] [address] Care Team Providers Care Aerospace Technician Name Role Phone Vanita Churchill Omar SPARROW Primary Care Provider [phone] Encounter Details Date Type Department Care Team (Latest Contact Info) Description 07/17/2023 Travel Social History Tobacco Use Types Packs/Day [...] 2:40 PM EDT Office Visit Cardiology at [address] [phone] Rigoberto Diaz MD [facility] [place] [address] Scheduled Procedures Name Priority Associated Diagnoses Date/Ti me EGD, UPPER GI ENDOSCOPY (WRV U 2.09) Incontinence of feces, unspecified fecal incontinence type Dysphagia, unspecified type COLONOSCOPY, DIAGNOSTIC (WRV U 3.26) Incontinence of feces, unspecified fecal incontinence type Dysphagia, unspecified type documented as of this encounter Visit Diagnoses Not on filedocumented in this encounter Care Teams Aerospace Technician Relationship Specialty Start Date End Date Vanita Churchill APRN PCP - General Family Medicine 02/27/19 documented as of this encounter
--- OUTSIDE RECORDS SUMMARY | 2024-06-14 01:45 | XMS_ITS | Encounter Summary ---
Author Organization [facility] [place] [address] Care Team Providers Care Parts Remover Name Role Phone Kerline Vanita Nelson APRN Primary Care Provider Reason for Referral * Diagnostic Test (Routine) - Closed Specialty Diagnoses / Procedures Referred By Emy castillo Referred To Contact Sleep Center Diagnoses CHEMA treated with BiPAP Difficulty with BiPAP use Procedures Sleep Study with Pap Titration Sleep Study with Pap Titration Alley Johnson APRN [facility] [place] [address] [facility] [address] [place] [address] Referral ID Status Reason Start Date Expiration Date V isits Requested Visits Authorized [id number] Closed Specialty Service Requested 11/23/2023 11/23/2024 1 1 Encounter Details Date Type Department Care Team (Late Contact Info) Description 11/23/2023 1:00 PM EST Office Visit Sleep Center at [facility] [address] [place] [address] Alley Johnson APRN [facility] [place] [address] CHEMA treated with BiPAP (Primary Dx); Difficulty with BiPAP use Social History Tobacco [...] Sign Reading Time Taken Comments Blood Pressure 133/59 11/23/2023 1:23 PM EST Pulse 68 11/23/2023 1:23 PM EST Temperature - - Respiratory Rate - - Oxygen Saturation 94% 11/23/2023 1:23 PM EST Inhaled Oxygen Concentration - - Weight 72.7 kg (160 lb 3.2 oz) 11/23/2023 1:23 P M EST Height 163.8 cm (5' 4.5) 11/23/2023 1:23 PM EST Body Mass Index 27.07 11/23/2023 1:23 PM EST documented in this encounter Patient Instructions * Patient Instructions* Alley Johnson APRN - 11/23/2023 1:00 PM EST Recommendations: --Trial of 21/14cw, change made to machine with data card inside Contact me if she still can't tolerance pressures after trying for a few days, and while awake withmachine on to get used to them --BPAP titration study --Don't use SoClean or another CPAP street cleaner with any CPAP or BPAP machine --Consider the PadACheek or another cloth mask liner for comfort or bothersome mask leak: for information, call [phone] or go to www.[employer] --If not able to use BPAP, practice conservative measures: Conservative measures may help reduce the severity of the obstructive sleep apnea but may not fullyresolve it: These include weight loss, sleeping in the lateral position and not her back, elevationof head of bed (ex: bed wedge or electronically or with blocks under upper bed legs), treatment of nasal congestion, avoiding alcohol and sedating medications before bedtime, and smoking cessation. Some of these may not apply. --Driving safety tips for everyone: do not drive if drowsy; if drowsy while driving, green chain puller to nap or rest --Follow-up: TBD after titration study; contact us or make an appointment sooner, as needed Ongoing BPAP tips: --Adjust mask straps with machine on, just to snug, for best fit. Do not overtighten as it can cause discomfort and greater mask leak --If dry mouth: 1) adjust humidity up and/or heated tube temperature down, 2) consider over the counter Biotene or Hydral mouth rinse, spray, or gel, 3) consider adding room humidifier for dryness and if humidity chamber runs low or dry by morning, or 4) reduce caffeine, alcohol, or tobacco which can affect symptoms. Chronic dry mouth can lead to cavities, thrush, difficulty swallowing, or gum disease. --If nasal congestion: 1) Try adjusting PAP humidity level, 2) Consider OTC saline nasal spray: 2 sprays per nostril twice daily, before affixing mask in evening and after removing mask in morning, and/or 3) consider nasal saline wash at night before affixing mask, and/or 4) consider over the counter nasal steroid spray Sleep difficulty: --Practice good sleep hygiene tips, handout provided today documented in this encounter Progress Notes * Alley Johnson APRN - 11/23/2023 1:00 PM EST Sleep Medicine Follow-Up Note CC/HPI: Ms. Lindsey Carrasco is a 72 y.o. female seen for annual follow-up of moderate obstructive sleep apnea on BPAP therapy. Difficulty using BPAP with significant weight loss. HPI continues below. Sleep Study History: 02/07/2008 at [facility], from Dr. Robbins's note: AHI: 28/hr, supine index was 29/hour Wt: 192.4lbs 03/08/2008 CPAP Titration, Wt: 194.6lbs, from Dr. Robbins's note: Ms. Deleon has moderate sleep apnea. She also has demonstrated somewhat marginal oxygen saturations. She is clearly improved on CPAP at 14-15 cm, although was not observed in REM or the supine position at these pressures. There was also some continued snoring at these pressures. I am recommendingthat we start her at 17 cm H2O with a Quattro, extra-small, mask and heated humidification.Conservative treatment measures have been reviewed with the patient. She did manage to maintain somewhat low, but acceptable baseline oxygen saturation. She has known COPD, which is the likely etiology of this. BPAP Titration 03/28/17, Wt: 214lbs, from Dr. Ferro's note: No supine sleep in REM on final pressure tested. Recommendations: 1. Trial of BIPAP . Consider chinstrap if felt to be needed. 2. Follow up with her PCP as to the SVT noted of unclear significance. 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 to surface mount technology operator, thinks it was medication; cardiology found lack of pulsein hip and feet, stent placed; ECHO from July 18, 2017 shows LVEF 65%) Treatment: BIPAP Replacement DreamStation Auto BPAP, setup 01/30/19 now Previously BPAP Auto 760P, setup 12/30/13 Has SoClean2 machine--not using Pressure: 25/18cw, previously 25/17, previously 25/21cw (should be 25/17cw)--excess gas, worse IBS,unsure if it was r/t IBS or gluten diet Tolerance: can't tolerate with weight loss Interface: AirTouch F20 small, well tolerated--still has mask leak at mouth corners--see Mouth below F30 small--F30 may be too big for her, top dentures removed at night, no bottom teeth/dentures and leak is mostly at mouth corner No longer using back to [place], small; Didn't like PhoRent FFM, small frame, small cushion; demo provided to her in 2019 visit Didn't like the Airtouch F20, small as irritating nasal bridge,previous mask was Mirage Quattro butit left a cortney on her nose Chin strap: No, chin strap was tried in the past but she opened her mouth anyway HCC: [facility] to get machine (that ofc is appt only[place] getting [place] Snoring on BPAP: Not unless high mask leak Nocturnal gasping on BPAP: unaware Dry Mouth on BPAP: Sometimes, adjusts humidity; uses Biotene rinse, hasn't tried room humidifier--didn't use this Winter, didn't need Mouth Breathing: Yes, has FFM now, can't breathe through nose Nasal Obstruction: On Zyrtec over the summer for seasonal allergies, uses Flonase PRN--educated on usage, hasn't restarted yet Mouth: Top dentures removed at night, no teeth on bottom, getting peg for bottom dentures--no bone there Sleep Pattern: Bedtime: 7p and reads til 9:30p Latency: can have difficulty Awakenings: Takes Tylenol at night before sleep onset, as she may wake with joint and back pain--will get up and then use IcyHot; WASO quickly Wake time: 5a not to alarm Questionnaire: Patient-reported last 4 scores: 04/05/2019 1:57 PM 03/22/2021 9:19 AM 10/11/2022 11:52 AM 11/23/2023 12:26 PM [facility] [place] [facility] 3 (Low Risk) 4 (Low Risk) 3 (Low Risk) Incomplete Insomnia Severity Index 4 (No clinically significant insomnia) Incomplete Incomplete 13 (Subthreshold insomnia) Daytime: Sleepiness or Drowsiness when driving: drives, no drowsiness ROS: Constitutional/weight: 214lbs at 2017 titration Today: reports 162lbs on scale this morning Resp: asthma/COPD; no more nebulizer, uses Flovent BID, and inhaler PRN; Social History: Normally, working one job 2 days per week passed in 2012 Past Medical History: Diagnosis Date Anemia iron Asthma 02/06/2017 Bowel disease has IBS-ok now Claudication had surgery for in 2017 COPD (chronic obstructive pulmonary disease) Emphysema, scheduled and prn inhalers, has not used prn inhaler in months. Able to climb one flightof starirs without SOB. No home O2. CPAP (continuous positive airway pressure) dependence biPAP GERD (gastroesophageal reflux disease) food regurgitation, burning, not well controlled Heart valve disease heart murmur Hypertension well controlled on medication Hypothyroid Mental health problem depression & anxiety-meds help Obstructive sleep apnea Transfusion history years ago Patient Active Problem List Diagnosis Code CHEMA [...] I65.29 Aortic stenosis I35.0 Atrial fibrillation I48.91 Outpatient Medications Marked as Taking for the 11/23/23 encounter (Office Visit) with Dariela Johnson APRN Medication Sig Dispense Refill amLODIPine (Norvasc) 10 mg tablet Take 10 mg by mouth daily. hydrocortisone 1 % Cream Twice a day citalopram (CeleXA) 20 mg tablet Take 20 mg by mouth daily. potassium chloride ER (Klor-Con, K-Tab) 10 mEq ER tablet Take 10 mEq by mouth daily. losartan (Cozaar) 25 mg tablet Take 25 mg by mouth daily. nystatin (Mycostatin) Cream Three times a day Flovent Diskus 100 mcg/actuation Disk with Device 2 puffs, Inhale, BID, # 60 EA, 0 Refill(s) oxygen-air delivery systems (HORIZON NASAL CPAP SYSTEM MISC) Supply, See instructions, # 1 EA, 0 Refill(s) cyanocobalamin, vitamin B-12, (Vitamin B-12) 500 mcg tablet Take 500 mcg by mouth three times a week (Mon, Weds, Fri). riboflavin, Vitamin B2, (Vitamin B2) 100 mg tablet Take 400 mg by mouth every morning. metoprolol succinate XL (Toprol-XL) 25 mg ER 24 hr tablet Take 1 tablet by mouth daily. 90 tablet 3 acetaminophen (Tylenol) 500 mg tablet Take 2 tablets by mouth every 6 hours as needed for Pain. hydroCHLOROthiazide (Hydrodiuril) 12.5 mg tablet Take 2 tablets by mouth daily. 180 tablet 3 omeprazole (PriLOSEC) [address] capsule TAKE 1 CAPSULE BY MOUTH 30 MINUTES BEFORE EVENING MEAL levothyroxine (Synthroid) 75 mcg Tablet nystatin (MYCOSTATIN) Powder Apply topically 4 times daily. buPROPion SR (Wellbutrin SR) 150 mg tablet sustained-release 12 hr Take by mouth. diclofenac (VOLTAREN) 1 % Gel Apply topically. cholecalciferol, vitamin D3, (D3-2000 ORAL) Take by [...] In am and 2 tablets in pm [DISCONTINUED] citalopram (CELEXA) 40 mg Tablet Take 20 mg by mouth daily. cetirizine (ZyrTEC) 10 mg Tablet Take 10 mg by mouth daily. [DISCONTINUED] fluticasone (FLOVENT) 110 mcg/actuation HFA Aerosol Inhaler [...] eye 2 times daily. FOLIC ACID ORAL Physical Exam: BP 133/59 Pulse 68 Ht 163.8 cm (5' 4.5) Wt 72.7 kg (160 lb 3.2 oz) SpO2 94% BMI 27.07 kg/m?? General: F, NAD Procedures reviewed: 05/05/23 EKG: Normal sinus rhythm Left axis deviation Right bundle branch block Abnormal ECG 05/05/23 TTE: Interpretation Summary 1. Normal biventricular size and [...] See body of report for complete details. 05/05/23 serum CO2 26mmol/L Data Download: Date Range: 07/22-10/19/23 Settin/18cw PB 0% Residual AHI: 3.7 Vibratory Snore Index: 0 % Night in Large Leak: 7.2% Avg breath rate: 12.7bpm Average usage days used-Hours: 4 hrs 23 minutes # Days of usage: 24% % Days used > 4 hours: 12% Previous Data Download: Date Range: 07/05-10/02/22 Settin/18cw PB 0% Residual AHI: 4.5 Vibratory Snore Index: 0 % Night in Large Leak: 29.6% Avg breath rate: 12.7bpm Average usage days used-Hours: 5 hrs 2 minutes # Days of usage: 83% % Days used > 4 hours: 52% Date Range: 12/19-03/18/21 Settin/17cw PB 0.5% Residual AHI: 7.8 declining LEFTY 3.4 OAI 2.8 Vibratory Snore Index: 0 % Night in Large Leak: 1.2% Average usage days used-Hours: 7 hrs 22 minutes # Days of usage: 100% % Days used > 4 hours: 82% Date Range: 12/06/19-03/08/20 Settin/17cw PB 0.5% (was at last visit) Residual AHI: 5.3 Note: Tidal Vol declined during period, ABR 13.5 Vibratory Snore Index: 0 % Night in Large Leak: 0% Average usage days used-Hours: 8 hrs 54 minutes # Days of usage: 92/ 98% % Days used > 4 hours: 97% Date Range: 01/30/19-04/03/19 Settin/21 cm, should be 25/17cw Residual AHI: 3.3 Vibratory Snore Index: 0 % Night in Large Leak: 3% Average usage days used-Hours: 7 hrs 25 minutes # Days of usage: 64/64 100% % Days used > 4 hours 94% Date Range: 05/04/2018-08/01/18 Settin/17 cm Residual AHI: 2.3 Vibratory Snore Index: 0 % Night in Large Leak: 3.2% Average usage days used-Hours: 8 hrs 7 minutes # Days of usage: 90/90 100% % Days used > 4 hours 100% Assessment Ms. Lindsey Carrasco is a 72 y.o. female seen for annual follow up of moderateobstructive sleep apnea on BPAP therapy. Difficulty using BPAP with significant weight loss, cannot tolerate pressures, too high, so usage has declined due to pressure intolerance. Overall benefit to symptoms on BPAP therapy continues when able to use more often. She stopped using SoClean, reviewed today why to stop when she was told by DME not to use it because of foam mask that she now has. The latest data download show a low residual AHI. VSI is well controlled. Large leak can be elevated. Trial pressure change to machine today to BPAP 21/14cw. Had a mask refit and now uses the AirTouch F20 small but still mask leak at lower mouth corners. Suggest cloth mask liner to reduce/eliminate. Supplies received regularly from [facility]. BPAP titration study with significant weight loss of now 60+lbs since last sleep study (weight lossintentional). Good practice of sleep hygiene tips reviewed for difficulty getting to sleep. Can be related to undertreated CHEMA. Recommendations below. Total time spent with patient on date of service including chart review, order, data download analysis, documentation, counseling and recommendations: 30 minutes Recommendations: --Trial of 21/14cw, change made to machine with data card inside Contact me if she still can't tolerance pressures after trying for a few days, and while awake withmachine on to get used to them --BPAP titration study --Don't use SoClean or another CPAP street cleaner with any CPAP or BPAP machine --Consider the PadACheek or another cloth mask liner for comfort or bothersome mask leak: for information, call [phone] or go to www.[employer].Billetto --If not able to use BPAP, practice conservative measures: Conservative measures may help reduce the severity of the obstructive sleep apnea but may not fullyresolve it: These include weight loss, sleeping in the lateral position and not her back, elevationof head of bed (ex: bed wedge or electronically or with blocks under upper bed legs), treatment of nasal congestion, avoiding alcohol and sedating medications before bedtime, and smoking cessation. Some of these may not apply. --Driving safety tips for everyone: do not drive if drowsy; if drowsy while driving, green chain puller to nap or rest --Follow-up: TBD after titration study; contact us or make an appointment sooner, as needed Ongoing BPAP tips: --Adjust mask straps with machine on, just to snug, for best fit. Do not overtighten as it can cause discomfort and greater mask leak --If dry mouth: 1) adjust humidity up and/or heated tube temperature down, 2) consider over the counter Biotene or Hydral mouth rinse, spray, or gel, 3) consider adding room humidifier for dryness and if humidity chamber runs low or dry by morning, or 4) reduce caffeine, alcohol, or tobacco which can affect symptoms. Chronic dry mouth can lead to cavities, thrush, difficulty swallowing, or gum disease. --If nasal congestion: 1) Try adjusting PAP humidity level, 2) Consider OTC saline nasal spray: 2 sprays per nostril twice daily, before affixing mask in evening and after removing mask in morning, and/or 3) consider nasal saline wash at night before affixing mask, and/or 4) consider over the counter nasal steroid spray Sleep difficulty: --Practice good sleep hygiene tips, handout provided today The patient indicates understanding of these issues and agrees with the plan. Alley Johnson APRN documented in this encounter Miscellaneous Notes * Addendum Note - Alley Johnson APRN - 11/23/2023 1:00 PM ESTAddended by: ALLEY JOHNSON on: 2023 03:44 PM Modules accepted: Orders documented in this encounter Plan of Treatment Upcoming Encounters Date Type Department Care Team (Late st Contact Info) Description 02/06/2025 2:40 PM EDT Office Visit Cardiology at [address] [place] [phone] Rigoberto Diaz MD [facility] [place] [address] Scheduled Orders Name Type Priority Associated Diagnoses Orde r Schedule Sleep Study with Pap Titration Sleep Center Routine CHEMA treated with BiPAP Difficulty with BiPAP use Expected: 2023, Expires: 11/21/2024 Scheduled Procedures Name Priority Associated Diagnoses Date/Ti me EGD, UPPER GI ENDOSCOPY (WRV U 2.09) Incontinence of feces, unspecified fecal incontinence type Dysphagia, unspecified type COLONOSCOPY, DIAGNOSTIC (WRV U 3.26) Incontinence of feces, unspecified fecal incontinence type Dysphagia, unspecified type documented as of this encounter Visit Diagnoses Diagnosis CHEMA treated with BiPAP- Primary Difficulty with BiPAP use documented in this encounter Care Teams Parts Remover Relationship Specialty Start Date End Date Vanita Churchill APRN PCP - General Family Medicine 02/27/19 documented as of this encounter
--- OUTSIDE RECORDS SUMMARY | 2024-06-14 01:45 | XMS_ITS | Encounter Summary ---
[place] [address] Care Team Providers Care Principal Hardware Architect Name Role Phone Vanita Churchill Omar SPARROW Primary Care Provider [phone] Encounter Details Date Type Department Care Team (Late st Contact Info) Description 03/24/2023 Refill Cardiology at [address] [phone] Mane Ayala, RN Social History Tobacco Use Types Packs/Day Years [...] encounter Miscellaneous Notes * Telephone Encounter - Mane Ayala, RN - 03/24/2023 1:38 PM EDT Images from the original note were not included. Appreciate call from Ms. Mehta. Very pleasant connection and discussion. Respectfully requests that her prescribed Metoprolol be re- routed to the [facility]. Will need a 90 day supply to comply with their requirements. Last discharge summary dated 03/08/2023. Scheduled for formal follow up 05/05/2023 post TAVR. Importantly feeling very well since her TAVR procedure. Reports very active in Cardiac Rehabilitation. Very busy and very happy. Pleased with her outcomes. Congratulated patient on her efforts. Timo Ayala, bottle filler Team Nurse [facility] Ambulatory Cardiology documented in this encounter Plan of Treatment Upcoming Encounters Date Type Department Care Team (Late st Contact Info) Description 02/06/2025 2:40 PM EDT Office Visit Cardiology at [address] [place] [phone] Rigoberto Diaz MD [facility] [place] [address] Scheduled Procedures Name Priority Associated Diagnoses Date/Ti me EGD, UPPER GI ENDOSCOPY (WRV U 2.09) Incontinence of feces, unspecified fecal incontinence type Dysphagia, unspecified type COLONOSCOPY, DIAGNOSTIC (WRV U 3.26) Incontinence of feces, unspecified fecal incontinence type Dysphagia, unspecified type documented as of this encounter Visit Diagnoses Not on filedocumented in this encounter Care Teams Principal Hardware Architect Relationship Specialty Start Date End Date Vanita Churchill, DIRECTOR OF CORPORATE MARKETING PCP - General Family Medicine 02/27/19 documented as of this encounter
--- OUTSIDE RECORDS SUMMARY | 2024-06-14 01:45 | XMS_ITS | Encounter Summary ---
[place] [address] Care Team Providers Care Round Kiln Drawer Name Role Phone Vanita Churchill Omar SPARROW Primary Care Provider [phone] Encounter Details Date Type Department Care Team (Latest Contact Info) Description 02/05/2024 Travel Social History Tobacco Use Types Packs/Day [...] PM EDT Office Visit Cardiology at [address] [address] Rigoberto Diaz MD [place] [address] Scheduled Procedures Name Priority Associated Diagnoses Date/Ti me EGD, UPPER GI ENDOSCOPY (WRV U 2.09) Incontinence of feces, unspecified fecal incontinence type Dysphagia, unspecified type COLONOSCOPY, DIAGNOSTIC (WRV U 3.26) Incontinence of feces, unspecified fecal incontinence type Dysphagia, unspecified type documented as of this encounter Visit Diagnoses Not on filedocumented in this encounter Care Teams Round Kiln Drawer Relationship Specialty Start Date End Date Vanita Churchill APRN PCP - General Family Medicine 02/27/19 documented as of this encounter
--- OUTSIDE RECORDS SUMMARY | 2024-06-14 01:45 | XMS_ITS | Encounter Summary ---
Author Organization [facility] [place] [address] Care Team Providers Care Hardboard Supervisor Name Role Phone Vanita Churchill Omar SPARROW Primary Care Provider [phone] Encounter Details Date Type Department Care Team (Late st Contact Info) Description 12/26/2023 Telephone Cardiology at [address] [address] Rigoberto Diaz MD [facility] [address] Social History Tobacco Use Types Packs/Day Years [...] encounter Miscellaneous Notes * Telephone Encounter - Neha Freire Drew - 12/26/2023 2:38 PM EST Patient left a message on the answering service today at 12:56 pm. She said she needs an appointment with Dr Diaz for a pre-op clearance. Please call her @ [phone] documented in this encounter Plan of Treatment Upcoming Encounters Date Type Department Care Team (Late st Contact Info) Description 02/06/2025 2:40 PM EDT Office Visit Cardiology at [address] [place] [address] Rigoberto Diaz MD [facility] [place] [id number] Scheduled Procedures Name Priority Associated Diagnoses Date/Ti me EGD, UPPER GI ENDOSCOPY (WRV U 2.09) Incontinence of feces, unspecified fecal incontinence type Dysphagia, unspecified type COLONOSCOPY, DIAGNOSTIC (WRV U 3.26) Incontinence of feces, unspecified fecal incontinence type Dysphagia, unspecified type documented as of this encounter Visit Diagnoses Not on filedocumented in this encounter Care Teams Hardboard Supervisor Relationship Specialty Start Date End Date Vanita Churchill APRN PCP - General Family Medicine 02/27/19 documented as of this encounter
--- OUTSIDE RECORDS SUMMARY | 2024-06-14 01:45 | XMS_ITS | Encounter Summary ---
Author Organization [place] [address] Care Team Providers Care Casket Coverer Name Role Phone Vanita Churchill Omar SPARROW Primary Care Provider [phone] Reason for Visit * Reason Onset Date Comments Medication Refill 07/05/2023 Amlodipine Encounter Details Date Type Department Care Team (Late st Contact Info) Description 07/05/2023 Refill Cardiology at [address] [phone] [facility] [place] [address] Medication Refill (Amlodipine/) Social History Tobacco Use Types Packs/Day Years Used Date Smoking Tobacco: Former Cigarettes 2 30 1 12/21/1973 - 10/21/2004 Smokeless Tobacco: Never Alcohol Use Standard Drinks/Week Comments Yes 0 (1 standard drink = 0.6 oz pur e alcohol) [facility] Inpatient Questions Answer Date Recorded Does [...] 2:40 PM EDT Office Visit Cardiology at [address] [place] [address] Rigoberto Diaz MD [facility] [place] [address] Scheduled Procedures Name Priority Associated Diagnoses Date/Ti [...] hypertension documented in this encounter Care Teams Casket Coverer Relationship Specialty Start Date End Date Vanita Churchill, SED SPECIAL EDUCATION TEACHER PCP - General Family Medicine 02/27/19 documented as of this encounter
--- OUTSIDE RECORDS SUMMARY | 2024-06-14 01:45 | XMS_ITS | Encounter Summary ---
[place] [address] Care Team Providers Care Manager Programs Name Role Phone Kwesidominguez Vanita Nelson APRN Primary Care Provider [phone] Reason for Referral * Diagnostic Test (Routine) - New Request Specialty Diagnoses / Procedures Referred By Emy castillo Referred To Contact Diagnoses Stenosis of right carotid artery Procedures Carotid Duplex, Bilateral Isabella Reyes PA [facility] [place] [address] [facility] [address] [place] [phone] Referral ID Status Reason Start Date Expiration Date Visits Requested Visits Authorized [id number] New Request Specialty Service Requested 07/17/2023 07/16/2024 1 1 * Diagnostic Test (Routine) - New Request Specialty Diagnoses / Procedures Referred By Emy castillo Referred To Contact Diagnoses PAD (peripheral artery disease) Procedures MARIYA, legs, multiple levels Isabella Reyes PA [facility] [place] [address] [facility] [address] [place] [address] Referral ID Status Reason Start Date Expiration Date Visits Requested Visits Authorized [id number] New Request Specialty Service Requested 07/17/2023 07/16/2024 1 1 Reason for Visit * Reason Comments Follow-up Pt reports that her BP has been high.BP med was increased. Pt reports headaches daily Encounter Details Date Type Department Care Team (Late st Contact Info) Description 07/17/2023 9:30 AM EDT Office [place] [address] Isabella Reyes PA [facility] DR VASCULAR SURGERY [place], [place] [id number] PAD (peripheral artery disease); Stenosis of right carotid artery Social History Tobacco Use Types Packs/Day Years Used Date Smoking Tobacco: Former Cigarettes 2 30 1 12/21/1973 - 10/21/2004 Smokeless Tobacco: Never Alcohol Use Standard Drinks/Week Comments Yes 0 (1 standard drink = 0.6 oz pur e alcohol) [facility] Inpatient Questions Answer Date Recorded Does [...] Sign Reading Time Taken Comments Blood Pressure 184/75 07/17/2023 9:18 AM EDT Pulse 73 07/17/2023 9:18 AM EDT Temperature - - Respiratory Rate - - Oxygen Saturation 99% 07/17/2023 9:18 AM EDT Inhaled Oxygen Concentration - - Weight 76.7 kg (169 lb) 07/17/2023 9:18 AM EDT Height 163.8 cm (5' 4.5) 07/17/2023 9:18 AM EDT Body Mass Index 28.56 07/17/2023 9:18 AM EDT documented in this encounter Progress Notes * Isabella Reyes PA - 07/17/2023 9:30 AM EDT Vascular Follow-Up Reason for Visit: Lindsey Mehta is a 72 y.o. female presenting for carotid stenosis, PAD. HPI: 72 y.o. female with PMH:HTN, HLD, RA, COPD, CHEMA, GERD, macular degeneration who is here for follow-up evaluation of her carotid stenosis and PAD. She has h/o L iliofemoral endarterectomy, B TRE stent placement (8x38mm BE) for short distance claudication in 2016 and more recently R CEA for asymptomatic stenosis in May 2019. Pt denies any signs or symptoms of CVA/TIA including: monocular vision loss, facial droop, garbled speech, unilateral numbness/weakness in extremity. Patient denies anyclaudication, rest pain, wounds or tissue loss on their lower extremities, fever, chills, chest pain or shortness of breath. Patient states being compliant with their daily medicine regimen including: ASA, statin. She was a former smoker, quit in 2003. Atherosclerotic Risk Factors: (n) DM (y) HTN (n) CAD (n) CHF (y) Hyperlipidemia (n) CVA reports that she quit smoking about 17 years ago. Her smoking use included cigarettes. She has a 60.00 pack-year smoking history. She has never used smokeless tobacco. Problem List: Patient Active Problem List Diagnosis Code CHEMA [...] I65.29 Aortic stenosis I35.0 Atrial fibrillation I48.91 Medications: Current Outpatient Medications on File Prior to Visit Medication Sig Dispense Refill riboflavin, Vitamin B2, (Vitamin B2) 100 mg tablet Take 400 mg by mouth every morning. amLODIPine (Norvasc) 5 mg tablet Take 2 tablets by mouth daily. 90 tablet 3 metoprolol succinate XL (Toprol-XL) 25 mg ER [...] pm citalopram (CELEXA) 40 mg Tablet Take 20 mg by mouth daily. ipratropium-albuterol (DUONEB) 0.5 mg-3 mg(2.5 mg base)/3 mL Solution for Nebulization Take 3 mLs by nebulization 2 times daily. cetirizine (ZyrTEC) 10 mg Tablet Take 10 mg by mouth daily. fluticasone (FLOVENT) 110 mcg/actuation HFA Aerosol Inhaler [...] eye 2 times daily. FOLIC ACID ORAL No current facility-administered medications on file prior to visit. Allergies: Allergies Allergen Reactions Latex Itching and Rash Kaopectate [Bismuth Subsalicylate] Other (See Comments) Rectal Bleeding Lisinopril Other (See Comments) coughing Mineral Oil Hemorrhoid Cream [Tissue Resp Fact-Shark Fadumo Oil] Other (See Comments) Bleeding ROS GENERAL: Denies weight change, fever, chills, night sweats SKIN: Denies rashes, sores, edema, erythema Head: Denies recent head trauma, headache, EYE: Denies changes in vision, acute visual loss, ENT: Denies rhinorrhea, sore throat, epistaxis CARDIAC: Denies chest pain, pressure, palpitations RESPIRATORY: Denies cough, shortness of breath GI: Denies abdominal pain, nausea, vomiting, melena : Denies Change in frequency of urination, dysuria, hematuria MSK: Denies muscle pain, weakness, or swelling of extremities, NEURO: Denies dizziness, loss of conscious, seizures, numbness or tingling in extremities, Physical Exam: BP 184/75 (BP Location (NBP): Right arm, Patient Position: Sitting, BP Cuff Sizes: Large Adult (32-43 cm)) Pulse 73 Ht 163.8 cm (5' 4.5) Wt 76.7 kg (169 lb) SpO2 99% BMI 28.56 kg/m?? Physical Exam GEN: Alert, appeared stated age in no acute distress SKIN: Warm, pink and dry. Turgor normal with no visible rashes or lesions. Bilateral UE and LE non edematous. Extremities: Bilateral UE and LE warm and pink. No edema. No wounds. HEENT: Normocephalic and atraumatic CV: Regular rate and rhythm. S1 and S2 present on auscultation PULM: Lung sounds clear to auscultation bilaterally ABD: Soft, non-tender to palpation, non-distended. No palpable aortic plus or abdominal masses. NEURO: No gross sensory or motor deficits. Vascular Exam: R L Carotid Bruit No No Radial 2/2 2/2 Femoral 2/2 2/2 DP 0/2 0/2 PT 0/2 0/2 Labs: No results found for this or any previous visit (from the past 24 hour(s)). Vascular Studies Carotid Duplex Findings: 07/17/2023 ICA Proximal, Right PSV (cm/s): 84 EDV (cm/s): 19 ICA/CCA: 1.2 Plaque Structure: Echogenic Plaque Surface: Smooth %Stenosis: <15% ICA Distal, Right PSV (cm/s): 72 EDV (cm/s): 15 ICA/CCA: 1.0 CCA Distal, Right PSV (cm/s): 70 EDV (cm/s): 11 %Stenosis: Minimal CCA Proximal, Right PSV (cm/s): 68 EDV (cm/s): 5 External Carotid Artery, Right PSV (cm/s): 97 EDV (cm/s): 8 %Stenosis: <50% Vertebral, Right PSV (cm/s): 65 EDV (cm/s): 8 Direction of Flow: Antegrade ICA Proximal, Left PSV (cm/s): 83 EDV (cm/s): 13 ICA/CCA: 1.2 Plaque Structure: Echogenic Plaque Surface: Irregular %Stenosis: 16-49% ICA Distal, Left PSV (cm/s): 84 EDV (cm/s): 16 ICA/CCA: 1.2 CCA Distal, Left PSV (cm/s): 70 EDV (cm/s): 8 %Stenosis: <50% CCA Proximal, Left PSV (cm/s): 65 EDV (cm/s): 8 External Carotid Artery, Left PSV (cm/s): 163 EDV (cm/s): 0 %Stenosis: <50% Vertebral, Left PSV (cm/s): 39 EDV (cm/s): 12 Direction of Flow: Antegrade Interpretation: RIGHT: A [...] and velocities bilaterally. Previous Carotid Studies: Date RIGHT ICA Stenosis PSV Ratio LEFT ICA Stenosis PSV Ratio 80-99% 514 8.00 16-49% 88 1.20 <15% 96 1.20 n/a n/a n/a <15% 131 2.00 16-49% 102 1.00 16-49% 125 1.20 16-49% 100 0.90 <15% 100 1.00 16-49% 102 1.00 Current Exam <15% 84 1.20 16-49% 83 1.20 ABIs Findings:07/17/2023 Right Pressure (mm Hg) MARIYA Waveform Brachial Artery 155 Dorsalis Pedis (Ankle) Artery 120 0.76 Bi-Triphasic Posterior Tibial (Ankle) Artery 126 0.80 Biphasic Left Pressure (mm Hg) MARIYA Waveform Brachial Artery 157 Dorsalis Pedis (Ankle) Artery 89 0.57 Monophasic Posterior Tibial (Ankle) Artery 87 0.55 Ponce-Biphasic Interpretation: RIGHT: Mild lower extremity arterial occlusive disease. No identifiable change when compared to the previous exam performed on 07/15/2022. LEFT: Moderate lower extremity arterial occlusive disease. Slight deterioration when compared to previous exam performed on 07/15/2022. NOTE: Hypertension is present based on Doppler derived systolic brachial blood pressure. Previous ABIs with change from previous value: Date RIGHT DP RIGHT PT RT GR TOE RT Sec TOE 0.48 0.64 ---- ---- 0.94(+.46) 0.91(+.27) ---- ---- 0.85(-.09) 0.90(-.01) ---- ---- 0.89(+.04) 0.91(+.01) ---- ---- 0.92(+.03) 0.85(-.06) ---- ---- 0.86(-.06) 0.86(+.01) ---- ---- 0.85(-.01) 0.89(+.03) ---- ---- Current 0.76(-.09) 0.80(-.09) ---- ---- Date LEFT DP LEFT PT LT GR TOE LT Sec TOE 0.48 0.68 ---- ---- 0.80(+.32) 0.84(+.16) ---- ---- 0.80( .00) 0.85(+.01) ---- ---- 0.87(+.07) 0.89(+.04) ---- ---- 0.88(+.01) 0.88(-.01) ---- ---- 0.64(-.24) 0.70(-.18) ---- ---- 0.70(+.06) 0.69(-.01) ---- ---- Current 0.57(-.13) 0.55(-.14) ---- ---- Assessment and Plan: Lindsey Metha 72 y.o. female with PMH: with stable carotid artery stenosis on duplex today: R ICA <15% stenosis and L ICA 16-49%. Patient remains asymptomatic. Recommend continued medical management at this time. Continue ASA, statin Recommend tight control of co-morbidities and continued abstinence from smoking. Follow-up in the clinic in 1 year with repeat carotid duplex. Instructed to call the clinic with any concerns prior to next appointment. Instructed to [id number] for any s/sx of TIA/CVA including unilateral extremity weakness, facial droop, acute change in vision or speech. Pt with PAD they have no symptoms of ischemic arterial occlusive disease. Studies were reviewed with pt. ABIs are stable in RLE: Mild PAD, ABIs in LLE: Moderate PAD with slight deterioration pt remains asymptomatic. Follow-up in 1 year with ABIs. Pt is amendable to plan at this time. Of note pt's BP was elevated at time of exam she is following with PCP and cardiology in regards to this. Denied changes in vision, headache, chest pain, SOB. Isabella Reyes PA-C Department of Vascular Surgery documented in this encounter Plan of Treatment Upcoming Encounters Date Type Department Care Team (Late st Contact Info) Description 02/06/2025 2:40 PM EDT Office Visit Cardiology at [address] [place] [address] Rigoberto Diaz MD [facility] [place] [address] Scheduled Procedures Name Priority Associated Diagnoses Date/Ti me EGD, UPPER GI ENDOSCOPY (WRV U 2.09) Incontinence of feces, unspecified fecal incontinence type Dysphagia, unspecified type COLONOSCOPY, DIAGNOSTIC (WRV U 3.26) Incontinence of feces, unspecified fecal incontinence type Dysphagia, unspecified type documented as of this encounter Visit Diagnoses Diagnosis PAD (peripheral artery disease) Peripheral vascular disease, unspecified Stenosis of right carotid artery Occlusion and stenosis of carotid artery without mention of cerebral infarction documented in this encounter Care Teams Manager Programs Relationship Specialty Start Date End Date Vanita Churchill APRN PCP - General Family Medicine 02/27/19 documented as of this encounter
--- OUTSIDE RECORDS SUMMARY | 2024-06-14 01:45 | XMS_ITS | Encounter Summary ---
[place] [address] Care Team Providers Care Supervisor Cigar Processing Name Role Phone KwesiVanita mix Omar SPARROW Primary Care Provider [phone] Reason for Visit * Reason Onset Date Comments Pre Procedure Call 12/12/2023 Colonoscopy & Endoscopy Clearance Encounter Details Date Type Department Care Team (Late st Contact Info) Description 12/12/2023 Telephone Cardiology at [address] [phone] Zhanna Moser RN Pre Procedure Call (Colonoscopy & Endoscopy Clearance) Social History Tobacco Use Types Packs/Day Years Used Date Smoking Tobacco: Former Cigarettes 2 30 1 12/21/1973 - 10/21/2004 Smokeless Tobacco: Never Alcohol Use Standard Drinks/Week Comments Yes 0 (1 standard drink = 0.6 oz pur e alcohol) [facility] Inpatient Questions Answer Date Recorded Does [...] encounter Miscellaneous Notes * Telephone Encounter - Zhanna Moser RN - 12/19/2023 2:46 PM EST Lindsey called again and left a vm requesting a referral. I called back, and spoke with her daughter, who states that Lindsey needs a referral. I let her know that the order has been signed, and we are sending it to [place]. -Zhanna Moser RN * Telephone Encounter - Zhanna Moser RN - 12/19/2023 9:36 AM EST Lindsey called and left a vm, stating that she needs a referral to see Dr. Diaz. Will pend the order separately. -Zhanna Moser RN * Telephone Encounter - Zhanna Moser RN - 12/18/2023 4:31 PM EST I spoke with Lindsey and relayed Dr. Fraser' message. I also provided her with Dr. Zavala's clinic number in [place]. -Zhanna Moser RN * Telephone Encounter - Zhanna Moser RN - 12/12/2023 4:14 PM EST Lindsey called, stating that she needs a letter sent to [facility] for cardiac clearance for a colonoscopy and upper endoscopy. It should be faxed to: [facility] ATTN Maribeth Camacho APRN. -Zhanna Moser RN documented in this encounter Plan of Treatment Upcoming Encounters Date Type Department Care Team (Late st Contact Info) Description 02/06/2025 2:40 PM EDT Office Visit Cardiology at [address] [place] [phone] Rigoberto Diaz MD [facility] [place] [address] Scheduled Procedures Name Priority Associated Diagnoses Date/Ti me EGD, UPPER GI ENDOSCOPY (WRV U 2.09) Incontinence of feces, unspecified fecal incontinence type Dysphagia, unspecified type COLONOSCOPY, DIAGNOSTIC (WRV U 3.26) Incontinence of feces, unspecified fecal incontinence type Dysphagia, unspecified type documented as of this encounter Visit Diagnoses Not on filedocumented in this encounter Care Teams Supervisor Cigar Processing Relationship Specialty Start Date End Date Vanita Churchill, ELECTRONIC ASSEMBLER GROUP LEADER PCP - General Family Medicine 02/27/19 documented as of this encounter
--- OUTSIDE RECORDS SUMMARY | 2024-06-14 01:45 | XMS_ITS | Encounter Summary ---
[place] [address] Care Team Providers Care Tobacco Acreage Measurer Name Role Phone KwesiVanita mix Omar SPARROW Primary Care Provider [phone] Reason for Visit * Auth/Cert (Routine) Specialty Diagnoses / Procedures Referred By Emy castillo Referred To Contact Diagnoses Aortic stenosis Aortic stenosis Procedures ER Chong Mireles MD [facility] [place] [address] [facility] Referral ID Status Reason Start Date Expiration Date Visits Re quested Visits Authorized [id number] 1 1 Encounter Details Date Type Department Care Team (Latest Contact Info) Description 03/08/2023 10:00 AM EDT - 03/08/2023 11:59 PM EDT Hospital Encounter Non-Invasive [place] [phone] Discharge Disposition: Home Social History Tobacco Use Types Packs/Day Years Used Date Smoking Tobacco: Former Cigarettes 2 30 1 12/21/1973 - 10/21/2004 Smokeless Tobacco: Never Alcohol Use Standard Drinks/Week Comments Yes 0 (1 standard drink = 0.6 oz pur e alcohol) [facility] Inpatient Questions Answer Date Recorded Does Anyone [...] # 1 EA, 0 Refill(s) 01/16/2023 02/05/2024 amLODIPine (Norvasc) 5 mg tabletIndications:ASCVD (arteriosclerotic cardiovascular disease),Essential hypertension Take 2 tablets by mouth daily. 90 tablet 3 03/08/2023 07/05/2023 metoprolol succinate XL (Toprol-XL) 25 mg ER 24 hr tablet Take 1 tablet by mouth daily. 30 tablet 3 03/09/2023 03/24/2023 guaiFENesin ER (Mucinex) 600 mg Tablet Extended [...] 2:40 PM EDT Office Visit Cardiology at [address] [place] [address] Rigoberto Diaz MD [facility] [place] [address] Scheduled Procedures Name Priority Associated Diagnoses Date/Ti me EGD, UPPER GI ENDOSCOPY (WRV U 2.09) Incontinence of feces, unspecified fecal incontinence type Dysphagia, unspecified type COLONOSCOPY, DIAGNOSTIC (WRV U 3.26) Incontinence of feces, unspecified fecal incontinence type Dysphagia, unspecified type documented as of this encounter Procedures Procedure Name Priority Date/Time Associated Diagnosis Comments ZIOPATCH 48 HRS-15 DAYS Routine 03/08/2023 10:01 AM EDT S/P TAVR (transcatheter aortic valve replacement) documented in this encounter Results * Ziopatch 48 Hrs-15 Days (03/08/2023 10:01 AM EDT) Anatomical Region Laterality Modality Other Narrative 03/28/2023 3:43 PM EDT Images from the original result were not included. [facility] ? Zio Patch Ambulatory Cardiac Event Monitor Report Indication for Study: Presence of prosthetic heart valve Duration of recordin days and 15 hours Summary Data: Minimum rate: 49 bpm Average rate: 67 bpm Maximum rate: 184 bpm Predominant Rhythm: Sinus rhythm Atrial fibrillation: None observed Significant Pauses: None observed Patient Diary Events: Triggered Events: There were 2 patient triggered events (button pushes), both associated with sinus rhythm with a rate in the 70-85 range Diary Events: There was 1 patient diary entry and this was associated with sinus rhythm at a normal rate Ectopic beats: Atrial premature beats (APC? s): There were rare isolated PACs with rare atrial couplets and triplets Ventricular premature beats (VPC's): There were rare isolated PVCs with an overall burden of less than 1%; there were rare ventricular couplets Dong Rhythm Findings: 1. ??The predominant underlying rhythm was sinus with rates ranging between 49 and 101 bpm and with an average sinus rate of 67 bpm 2. ??There was 1 run of ventricular tachycardia lasting 13 beats at a maximal rate of 184 bpm (average rate of 136 bpm) 3. ??There were fairly frequent runs of SVT (a total of 305) with the fastest being 14 beats at a maximal rate of 167 bpm and the longest lasting 10.3 seconds at an average rate of 133 bpm 4. ??Periods of idioventricular rhythm were present 5. ??There was no atrial fibrillation or flutter and no advanced AV block Note: ??The full PDF version of this Zio evaluation is available for review. ??For medical providers accessing via the electronic medical record, the PDF can be found on the Chart Review > Media tab. ??For patients accessing the study from [facility] (My Chart), click on the link or links found in the IMAGES area below the text of the report. ? Randy Chatman MD, FASAFIA, FACC Suhail Padilla APRN CARDIAC SERVICES OR DERABLES documented in this encounter Visit Diagnoses Not on filedocumented in this encounter Care Teams Tobacco Acreage Measurer Relationship Specialty Start Date End Date Vanita Churchill APRN PCP - General Family Medicine 02/27/19 documented as of this encounter
--- OUTSIDE RECORDS SUMMARY | 2024-06-14 01:46 | XMS_ITS | Encounter Summary ---
[place] [address] Care Team Providers Care Dairy Husbandry Teacher Name Role Phone Vanita Churchill APRN Primary Care Provider [phone] Encounter Details Date Type Department Care Team (Late st Contact Info) Description 02/21/2023 Notes Only Cardiology at [address] [phone] Mike Fraser MD [facility] [address] Social History Tobacco Use Types Packs/Day Years Used Date Smoking Tobacco: Former Cigarettes 2 30 1 12/21/1973 - 10/21/2004 Smokeless Tobacco: Never Alcohol Use Standard Drinks/Week Comments Yes 0 (1 standard drink = 0.6 oz pur e alcohol) Sex and Gender Information Value Date Recorded Sex Assigned at Not on file Gender Identity Not on file Sexual Orientation Not on file documented as of this encounter Progress Notes * Keshia Crooks, RN - 02/21/2023 3:31 PM EDTSummary: Structural Heart Note Spoke to Lindsey who reiterates interest in scheduling TAVR as discussed during Structural Heart SDevaluation. We reviewed pre/post procedure instructions; he exhibits understanding. Plan: TAVR Transcaval MonMarch 29 documented in this encounter Plan of Treatment Upcoming Encounters Date Type Department Care Team (Late st Contact Info) Description 02/06/2025 2:40 PM EDT Office Visit Cardiology at [address] [place] [phone] Rigoberto Diaz MD [facility] [place] [address] Scheduled Procedures Name Priority Associated Diagnoses Date/Ti me EGD, UPPER GI ENDOSCOPY (WRV U 2.09) Incontinence of feces, unspecified fecal incontinence type Dysphagia, unspecified type COLONOSCOPY, DIAGNOSTIC (WRV U 3.26) Incontinence of feces, unspecified fecal incontinence type Dysphagia, unspecified type documented as of this encounter Visit Diagnoses Not on filedocumented in this encounter Care Teams Dairy Husbandry Teacher Relationship Specialty Start Date End Date Vanita Churchill, PATIENT LIAISON PCP - General Family Medicine 02/27/19 documented as of this encounter
--- OUTSIDE RECORDS SUMMARY | 2024-06-14 01:46 | XMS_ITS | Encounter Summary ---
[place] [address] Care Team Providers Care Welder Explosion Name Role Phone Kwesidominguez Vanita Dominguez SPARROW Primary Care Provider [phone] Encounter Details Date Type Department Care Team (Late st Contact Info) Description 03/01/2023 Telephone Cardiology at [address] [phone] Josefina Grande RN Social History Tobacco Use Types Packs/Day Years Used Date Smoking Tobacco: Former Cigarettes 2 30 1 12/21/1973 - 10/21/2004 Smokeless Tobacco: Never Alcohol Use Standard Drinks/Week Comments Yes 0 (1 standard drink = 0.6 oz pur e alcohol) [facility] Inpatient Questions Answer Date Recorded Does Anyone [...] encounter Miscellaneous Notes * Telephone Encounter - Josefina Grande RN - 03/01/2023 12:54 PM EDT Patient is being admitted from clinic for severe and worsening sx. Cath and TAVR planned but notuntil May so admission is arranged to try and expedite procedure. Report given to Kailee and patient was escorted via W/C to [facility] Rm: [phone] without incident. Patient belongings were with patient. Josefina Stephenson RNfront services agent Cardiovascular Clinic General Team-Scooby documented in this encounter Plan of Treatment Upcoming Encounters Date Type Department Care Team (Late st Contact Info) Description 02/06/2025 2:40 PM EDT Office Visit Cardiology at [address] [place] [address] Rigoberto Diaz MD [facility] [place] [address] Scheduled Procedures Name Priority Associated Diagnoses Date/Ti me EGD, UPPER GI ENDOSCOPY (WRV U 2.09) Incontinence of feces, unspecified fecal incontinence type Dysphagia, unspecified type COLONOSCOPY, DIAGNOSTIC (WRV U 3.26) Incontinence of feces, unspecified fecal incontinence type Dysphagia, unspecified type documented as of this encounter Visit Diagnoses Not on filedocumented in this encounter Care Teams Welder Explosion Relationship Specialty Start Date End Date Vanita Churchill APRN PCP - General Family Medicine 02/27/19 documented as of this encounter
--- OUTSIDE RECORDS SUMMARY | 2024-06-14 01:46 | XMS_ITS | Encounter Summary ---
[place] [address] Care Team Providers Care In Flight Refueling System Repairer Name Role Phone KwesiVanita mix Omar SPARROW Primary Care Provider [phone] Reason for Visit * Auth/Cert (Routine) Specialty Diagnoses / Procedures Referred By Emy castillo Referred To Contact Diagnoses Aortic stenosis Aortic stenosis Procedures ER Chong Mireles MD [facility] [place] [address] [facility] Referral ID Status Reason Start Date Expiration Date Visits Re quested Visits Authorized [id number] 1 1 Encounter Details Date Type Department Care Team (Late st Contact Info) Description 03/01/2023 9:20 AM EDT Office Visit Cardiology at [address] [address] Alexanedr Headley MD [place], [place] [id number] Aortic valve stenosis, etiology of cardiac valve disease unspecified Social History Tobacco Use Types Packs/Day Years [...] Sign Reading Time Taken Comments Blood Pressure 148/71 03/01/2023 9:06 AM EDT Pulse 67 03/01/2023 9:06 AM EDT Temperature - - Respiratory Rate - - Oxygen Saturation 99% 03/01/2023 9:06 AM EDT Inhaled Oxygen Concentration - - Weight 78.5 kg (173 lb) 03/01/2023 9:06 AM EDT Height 160 cm (5' 3) 03/01/2023 9:06 AM EDT Body Mass Index 30.65 03/01/2023 9:06 AM EDT documented in this encounter Progress Notes * Alexander Headley MD - 03/01/2023 9:20 AM EDT Images from the original note were not included. [facility] [place] [id number] Cardiology Clinic Note Subjective: HPI: Lindsey Deleon is a 72 y.o. female with past medical history of , hypertension, hyperlipidemia, COPD/emphysema, hypothyroid, PAD with h/o L iliofemoral endarterectomy, B TRE stent placement (8x38mm BE) for short distance claudication in 2016 and more recently R CEA for asymptomatic stenosis in May 2019 who presented in 12/2022 to the structural heart clinic as an urgent visit due to acute dyspnea in the setting of known aortic stenosis. From Clinic Note 01/20/2023: She reports over the past several months her breathing status has progressively declined. This became acutely worse on January 06 at which time she was seen in her local health center and told she has pneumonia. She reports minimal improvement since starting her antibiotics. She does feel like she had fever/chills but has not taken a formal temperature. She does not a thick green sputum secretion which was been persistent over the last week and also notes her infection has been complicated bythrush. She denies anginal symptoms or new lower extremity swelling, orthopnea, PND or weight gain. The past few days she has gotten more symptomatic with increasing dyspnea and her O2 saturation wasin the 60s according to her. She is feeling now lightheaded and more fatigued and so we asked her to come urgently to clinic. Today she is nor dyspneic at rest however with minimal exertion she does get SOB. ?? Echo 12/12/2022: EF 56%; AUREA 1.0; Gr 47/30; Trace AR/TR; Moderate MR ?? 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 CHEMA (obstructive sleep apnea) G47.33 ??? GERD (gastroesophageal reflux disease) K21.9 ??? HTN (hypertension) I10 ??? Hypercholesteremia E78.00 ??? Rheumatoid arthritis(714.0) M06.9 ??? Depression F32.A ??? COPD (chronic obstructive pulmonary disease) J44.9 ??? Macular degeneration H35.30 ??? IBS (irritable bowel syndrome) K58.9 ??? Constipation K59.00 ??? Seasonal allergic rhinitis J30.2 ??? Hypothyroidism E03.9 ??? Asthma J45.909 ??? Obesity (BMI 30-39.9) E66.9 ??? Atherosclerotic PVD with intermittent claudication I70.219 ??? Claudication in peripheral vascular disease I73.9 ??? Carotid stenosis I65.29 ROS: Activity level: Limited by dyspnea 12+ ROS reviewed and negative except as detailed in the HPI. Medications: Current Outpatient Medications Medication Sig Note Dispense Refill ??? amLODIPine (Norvasc) 5 mg tablet Take 1 tablet by mouth daily. 90 tablet 3 ??? hydroCHLOROthiazide (Hydrodiuril) 12.5 mg tablet Take 2 tablets by mouth daily. 180 tablet 3 ??? omeprazole (PriLOSEC) [address] capsule TAKE 1 CAPSULE BY MOUTH 30 MINUTES BEFORE EVENING MEAL ??? levothyroxine (Synthroid) 75 mcg Tablet ??? nystatin (MYCOSTATIN) Powder Apply topically 4 times daily. ??? buPROPion SR (Wellbutrin SR) 150 mg tablet sustained-release 12 hr Take by mouth. ??? nystatin (MYCOSTATIN) Cream Apply topically. ??? hydrocortisone 1 % Cream Apply topically. ??? guaiFENesin ER (Mucinex) 600 mg Tablet Extended Release 12hr Take by mouth as needed. ??? diclofenac (VOLTAREN) 1 % Gel Apply topically. ??? albuterol 90 mcg/actuation HFA Aerosol Inhaler Inhale 2 puffs into the lungs every 4 hours as needed for Wheezing. Use with spacer ??? cholecalciferol, vitamin D3, (D3-2000 ORAL) Take by mouth. ??? rosuvastatin (CRESTOR) 20 mg Tablet Take 20 mg by mouth daily. ??? ezetimibe (ZETIA) 10 mg Tablet Take 10 mg by mouth daily. ??? UNABLE TO FIND [facility] ??? calcium-vitamin D 500 mg(1,250mg) -200 unit Tablet Take 1 tablet by mouth daily. 600 mg BID ??? acetaminophen (TYLENOL) 325 mg Tablet Take 650 mg by mouth every 4 hours as needed for Pain. ??? iron polysaccharides (NIFEREX) 150 mg iron Capsule Take 65 mg by mouth daily. ??? diphenhydrAMINE (BENADRYL) 25 mg Capsule Take 25 mg by mouth nightly as needed for Itching. Takes 2 tablets In am and 2 tablets in pm ??? citalopram (CELEXA) 40 mg Tablet Take 40 mg by mouth daily. ??? ipratropium-albuterol (DUONEB) 0.5 mg-3 mg(2.5 mg base)/3 mL Solution for Nebulization Take 3 mLs by nebulization 2 times daily. 03/18/2020: prn ??? cetirizine (ZyrTEC) 10 mg Tablet Take 10 mg by mouth daily. 03/18/2020: Takes store brand , prn ??? fluticasone (FLOVENT) 110 mcg/actuation HFA Aerosol Inhaler Inhale 1 puff into the lungs 2 times daily. flovent diskus ??? multivitamin (THERAGRAN) tablet Take 1 tablet by mouth daily. ??? POLYETHYLENE GLYCOL 3350 (MIRALAX ORAL) Take by mouth as needed. ??? ziprasidone (GEODON) 20 mg capsule Take 20 mg by mouth 2 times daily (with meals). ??? aspirin 325 mg tablet Take 325 mg by mouth daily. ??? CARBOXYMETHYLCELLULOSE SODIUM (REFRESH TEARS OPHT) Apply to eye 2 times daily. ??? FOLIC ACID ORAL Objective: Vitals: Vitals: 03/01/23 09 BP: 148/71 Pulse: 67 SpO2: 99% Weight: 78.5 kg (173 lb) Height: 160 cm (5' 3) Physical Exam: General: Pleasant female, no acute distress HEENT: Normocephalic NECK: Supple, no masses, FROM CV: Minimally tachycardic, rate, regular rhythm, II/ JERZY RESP: inspiratory rales GI: Soft, nd, nttp EXT: No edema NEURO: No gross focal deficits, normal gait PSYC: Appropriate mood and affect, alert and oriented DERM: No rash, wwp Diagnostics: No results found for this or any previous visit (from the past 72 hour(s)). Vitals: 03/01/23 0906 BP: 148/71 Pulse: 67 SpO2: 99% Weight: 78.5 kg (173 lb) Height: 160 cm (5' 3) Assessment and Plan: Assessment 1. Mod-Severe ; AUREA 1, MG 30 2. Former smoker, COPD/emphysema 3. PAD s/p RCEA and bilateral iliac stent placement 4. HTN Reccomendations Lindsey Deleno is a 72 y.o. female who was referred to the structural heart team for urgent evaluation due to worsening dyspnea int he setting ofsevere aortic stenosis. NYHA III CCS 0. She will be admitted to the [facility] cardiology service for expedited TAVR (Transcaval approach) this week or next week. Alexander Headley MD Thank you for the opportunity to participate in this patient's cardiovascular care. documented in this encounter Plan of Treatment Upcoming Encounters Date Type Department Care Team (Late st Contact Info) Description 02/06/2025 2:40 PM EDT Office Visit Cardiology at [address] [place] [address] Rigoberto Diaz MD [facility] [place] [address] Scheduled Procedures Name Priority Associated Diagnoses Date/Ti me EGD, UPPER GI ENDOSCOPY (WRV U 2.09) Incontinence of feces, unspecified fecal incontinence type Dysphagia, unspecified type COLONOSCOPY, DIAGNOSTIC (WRV U 3.26) Incontinence of feces, unspecified fecal incontinence type Dysphagia, unspecified type documented as of this encounter Visit Diagnoses Diagnosis Aortic valve stenosis, etiology of cardiac valve disease unspecified documented in this encounter Care Teams In Flight Refueling System Repairer Relationship Specialty Start Date End Date Vanita Churchill, KYARA PCP - General Family Medicine 02/27/19 documented as of this encounter
--- OUTSIDE RECORDS SUMMARY | 2024-06-14 01:46 | XMS_ITS | Encounter Summary ---
Author Organization [facility] [place] [address] Care Team Providers Care Pan Pusher Name Role Phone Vanita Churchill Omar SPARROW Primary Care Provider [phone] Encounter Details Date Type Department Care Team (Late st Contact Info) Description 02/23/2023 Notes Only Cardiology at [address] [id number] Edwige Nieves APRN [facility] [place] [address] Social History Tobacco Use Types Packs/Day Years [...] as of this encounter Progress Notes * Edwige Nieves APRN - 02/23/2023 7:09 AM EDT Structural Heart TAVR Team Discussion Date: 02/23/2023 Patient ID: Lindsey Deleon is a 72 y.o. female Members of the Structural Heart Team met to review imaging and discuss appropriate management of their aortic valve disease. Imaging sent to [facility] for consideration of transcaval approach. On review of imaging she appears to have adequate transcaval access. Will plan to proceed with TC access. Okto schedule. documented in this encounter Plan of Treatment Upcoming Encounters Date Type Department Care Team (Late st Contact Info) Description 02/06/2025 2:40 PM EDT Office Visit Cardiology at [address] [place] [address] Rigoberto Diaz MD [facility] [place] [id number] Scheduled Procedures Name Priority Associated Diagnoses Date/Ti me EGD, UPPER GI ENDOSCOPY (WRV U 2.09) Incontinence of feces, unspecified fecal incontinence type Dysphagia, unspecified type COLONOSCOPY, DIAGNOSTIC (WRV U 3.26) Incontinence of feces, unspecified fecal incontinence type Dysphagia, unspecified type documented as of this encounter Visit Diagnoses Not on filedocumented in this encounter Care Teams Pan Pusher Relationship Specialty Start Date End Date Vanita Churchill APRN PCP - General Family Medicine 02/27/19 documented as of this encounter
--- OUTSIDE RECORDS SUMMARY | 2024-06-14 01:46 | XMS_ITS | Encounter Summary ---
[place] [address] Care Team Providers Care Assistant Chief Engineer Name Role Phone Vanita Churchill Omar SPARROW Primary Care Provider Encounter Details Date Type Department Care Team (Latest Contact Info) Description 03/01/2023 Travel Social History Tobacco Use Types Packs/Day [...] 2:40 PM EDT Office Visit Cardiology at [address] [phone] Rigoberto Diaz MD [facility] [place] [address] Scheduled Procedures Name Priority Associated Diagnoses Date/Ti me EGD, UPPER GI ENDOSCOPY (WRV U 2.09) Incontinence of feces, unspecified fecal incontinence type Dysphagia, unspecified type COLONOSCOPY, DIAGNOSTIC (WRV U 3.26) Incontinence of feces, unspecified fecal incontinence type Dysphagia, unspecified type documented as of this encounter Visit Diagnoses Not on filedocumented in this encounter Care Teams Assistant Chief Engineer Relationship Specialty Start Date End Date Vanita Churchill APRN PCP - General Family Medicine 02/27/19 documented as of this encounter
--- OUTSIDE RECORDS SUMMARY | 2024-06-14 01:46 | XMS_ITS | Encounter Summary ---
[place] [address] Care Team Providers Care Jewelry Bench Molder Name Role Phone KwesiVanita mix Omar SPARROW Primary Care Provider [phone] Reason for Visit * Auth/Cert (Routine) Specialty Diagnoses / Procedures Referred By Emy castillo Referred To Contact Diagnoses Aortic stenosis Aortic stenosis Procedures ER Chong Mireles MD [facility] [place] [address] [facility] Referral ID Status Reason Start Date Expiration Date Visits Re quested Visits Authorized [id number] 1 1 Encounter Details Date Type Department Care Team (Late st Contact Info) Description 03/07/2023 1:00 PM EDT - 03/07/2023 2:38 PM EDT [place] [id number] Mike Torres MD [facility] [place] [address] CARDIAC CATHETERIZATION Social History Tobacco Use Types Packs/Day Years [...] Sign Reading Time Taken Comments Blood Pressure 142/60 03/07/2023 10:49 AM EDT Pulse 68 03/07/2023 10:49 AM EDT Temperature 36.8 ??C (98.2 ??F) 03/07/2023 10:49 AM E DT Respiratory Rate 16 03/07/2023 10:49 AM EDT Oxygen Saturation 95% 03/07/2023 10:49 AM EDT Inhaled Oxygen Concentration - - Weight 77.2 kg (170 lb 3.1 oz) 03/07/2023 3:43 A M EDT Height 160 cm (5' 2.99) 03/01/2023 12:59 PM EDT Body Mass Index 29.96 03/01/2023 12:59 PM EDT documented in this encounter Discharge Summaries * Mary Molina PA - 03/08/2023 11:32 AM EDT Inpatient - Discharge Summary Patient Name: Lindsey Deleon Patient Age: 72 y.o. Birthdate: 1950 Language: Hong Konger Race: White Ethnicity: Not nor Admit Date: 03/01/2023 Discharge Date: 03/08/2023 Attending Physician: Rahat Vargas MD Follow-up Recommendations for Providers: ??? Please continue routine management of cardiovascular risk factors including blood pressure, lipids, glucose, etc. ??? Please note any medication changes. ??? Patient to follow up with PCP, Vanita Churchill APRN, or Primary E Business Project Manager, in ~ 7-10 days. ??? Patient to follow up with Explosives Detonator, Dr. Mike Torres, in 1 month with a chest x-ray, EKG, Echo, CBC, and CMP. ?? Lrze-Oxjifo-lh interval: After initial 30 day follow-up appointment , all TAVR patients will follow-up again in one year with an echo. Inpatient Provider Contact Information: [facility] Section of Cardiac [place] [facility] [place] [phone] FAX [phone] Discharge Diagnoses (Hospital Problems) Primary Diagnoses: Aortic stenosis, s/p left TF TAVR Secondary Diagnoses: Active Hospital Problems Diagnosis ??? Aortic stenosis Resolved Hospital Problems No resolved problems to display. Other Diagnoses (Chronic Problems): Active Non-Hospital Problems Diagnosis ??? Carotid stenosis ??? Claudication in peripheral vascular disease ??? Obesity (BMI 30-39.9) ??? Atherosclerotic PVD with intermittent claudication ??? Asthma ??? Seasonal allergic rhinitis ??? Hypothyroidism ??? IBS (irritable bowel syndrome) ??? Constipation ??? GERD (gastroesophageal reflux disease) ??? HTN (hypertension) ??? Hypercholesteremia ??? Rheumatoid arthritis(714.0) ??? Depression ??? COPD (chronic obstructive pulmonary disease) ??? Macular degeneration ??? CHEMA (obstructive sleep apnea) Discharged to: Patient discharged to home Functional and Cognitive Status: Baseline Discharge Conditions/Prognosis: Stable and improving Past Medical History: Diagnosis Date ??? Anemia iron ??? Asthma 02/06/2017 ??? Bowel disease has IBS-ok now ??? Claudication had surgery for in 2017 ??? COPD (chronic obstructive pulmonary disease) Emphysema, scheduled and prn inhalers, has not used prn inhaler in months. Able to climb one flightof starirs without SOB. No home O2. ??? CPAP (continuous positive airway pressure) dependence biPAP ??? GERD (gastroesophageal reflux disease) food regurgitation, burning, not well controlled ??? Heart valve disease heart murmur ??? Hypertension well controlled on medication ??? Hypothyroid ??? Mental health problem depression & anxiety-meds help ??? Obstructive sleep apnea ??? Transfusion history years ago Past Surgical History: Procedure Laterality Date ??? CHOLECYSTECTOMY ? ? PRG CATH PLMT CORONARY ART W/INJ FOR ANGIO W/R HEART CATH IMG S&I N/A 01/31/2023 CORONARY ANGIOGRAPHY; W RHC (WRVU 5.9) performed by Mike Torres MD at [facility] CATH LABS ??? PRG X-RAY AORTA LEG ARTERIES N/A 08/15/2017 AORTOGRAPHY, ABD. + AYAAN. ILIOFEMORAL LE BY SERIALOGRAPHY S & I (WRVU 1.79) performed by Jake Montaño MD at [facility] MAIN OR ??? PRO COLONOSCOPY, DIAGNOSTIC 12/06/2012 COLONOSCOPY, DIAGNOSTIC performed by Mik Dumont MD at [facility] ENDOSCOPY ??? PRO LAPAROSCOPY REPAIR PARAESOPHAGEAL HERNIA INCL FUNDOPLASTY W/O MESH 02/18/2013 LAPAROSCOPIC PARAESOPHAGEAL HERNIA REPAIR W/FUNDOPLASTY, W/O MESH performed by Moncho Bowers MD at [facility] MAIN OR ??? PRO PLACE CATH FIRST ORDER ART, ABD/PELV 08/15/2017 CATHETER PLACEMENT, SELECTIVE FIRST ORDER IN ARTERIAL SYSTEM, EACH FIRST ORDER ABDOMINAL, PELVIC, OR LOWER EXTREMITY ARTERY BRANCH,WITHIN A VASCULAR FAMILY (WRVU 4.9) performed by Jake Montaño MD at [facility] MAIN OR ? ? PRO REVSC OPEN/PERCUTANEOUS ILIAC ART W STNT PLMT&ANGIO PATRICE VSL UNILAT Bilateral 08/15/2017 REVSC OPN\PRQ ILIAC ART W\STNT PLMT & ANGIOP SAME VSL (WRVU 10) performed by Jake Montaño MD at [facility] MAIN OR ??? PRO THROMBOENDARTECTMY ILIOFEMORAL Left 08/15/2017 @ENDARTERECTOMY, ILIOFEMORAL W OR W/O PATCH GRAFT (WRVU 19.86) performed by Jake Montaño MD at [facility] MAIN OR ??? PRO THROMBOENDARTECTMY NECK, NECK INCIS Right 06/10/2019 @ENDARTERECTOMY, CAROTID, VERTEBRAL,SUBCLAVIAN W\WO PATCH GRAFT (WRVU 21.16) performed by Jake Montaño MD at [facility] MAIN OR ??? PRO UPPER GI ENDOSCOPY, BIOPSY 12/06/2012 EGD WITH BIOPSY performed by Mik Dumont MD at [facility] ENDOSCOPY ??? TUBAL LIGATION Prior To Admission Medications Facility-Administered Medications Prior to Admission Medication Dose Route Frequency Provider Last Rate Last Admin ??? mupirocin (Bactroban) 2 % ointment Topical (Top) BID Edwige Nieves, AGRICULTURAL EXTENSION SPECIALIST ??? sodium chloride 0.9 % (flush) (BD PosiFlush Normal Saline 0.9) flush 5 mL 5 mL Intravenous BID Edwige Nieves, AGRICULTURAL EXTENSION SPECIALIST ??? sodium chloride 0.9 % (flush) (BD PosiFlush Normal Saline 0.9) flush 5-20 mL 5-20 mL Intravenous Q1 Min PRN Edwige Nieves, AGRICULTURAL EXTENSION SPECIALIST ??? lidocaine (Xylocaine) 1% (10 mg/mL) injection 3 mg 0.3 mL Subcutaneous Once PRN Edwige Nieves,AGRICULTURAL EXTENSION SPECIALIST Medications Prior to Admission Medication Sig Dispense Refill Last Dose ??? hydroCHLOROthiazide (Hydrodiuril) 12.5 mg tablet Take 2 tablets by mouth daily. 180 tablet 3 03/01/2023 ??? [DISCONTINUED] amLODIPine (Norvasc) 5 mg tablet Take 1 tablet by mouth daily. 90 tablet 3 03/01/2023 ??? omeprazole (PriLOSEC) [address] capsule TAKE 1 CAPSULE BY MOUTH 30 MINUTES BEFORE EVENING MEAL 03/01/2023 ??? levothyroxine (Synthroid) 75 mcg Tablet 03/01/2023 ??? buPROPion SR (Wellbutrin SR) 150 mg tablet sustained-release 12 hr Take by mouth. 03/01/2023 ??? rosuvastatin (CRESTOR) 20 mg Tablet Take 20 mg by mouth daily. 03/01/2023 ??? ezetimibe (ZETIA) 10 mg Tablet Take 10 mg by mouth daily. 03/01/2023 ??? [DISCONTINUED] calcium-vitamin D 500 mg(1,250mg) -200 unit Tablet Take 1 tablet by mouth daily.600 mg BID 03/01/2023 ??? iron polysaccharides (NIFEREX) 150 mg iron Capsule Take 65 mg by mouth daily. 03/01/2023 ??? citalopram (CELEXA) 40 mg Tablet Take 40 mg by mouth daily. 03/01/2023 ??? ipratropium-albuterol (DUONEB) 0.5 mg-3 mg(2.5 mg base)/3 mL Solution for Nebulization Take 3 mLs by nebulization 2 times daily. 03/01/2023 ??? cetirizine (ZyrTEC) 10 mg Tablet Take 10 mg by mouth daily. 03/01/2023 ??? ziprasidone (GEODON) 20 mg capsule Take 20 mg by mouth 2 times daily (with meals). 03/01/2023 ??? aspirin 325 mg tablet Take 325 mg by mouth daily. 03/01/2023 ??? nystatin (MYCOSTATIN) Powder Apply topically 4 times daily. Unknown ??? nystatin (MYCOSTATIN) Cream Apply topically. Unknown ??? guaiFENesin ER (Mucinex) 600 mg Tablet Extended Release 12hr Take by mouth as needed. Unknown ??? diclofenac (VOLTAREN) 1 % Gel Apply topically. Unknown ??? [DISCONTINUED] hydrocortisone 1 % Cream Apply topically. Unknown ??? albuterol 90 mcg/actuation HFA Aerosol Inhaler Inhale 2 puffs into the lungs every 4 hours as needed for Wheezing. Use with spacer Unknown ??? cholecalciferol, vitamin D3, (D3-2000 ORAL) Take by mouth. Unknown ??? UNABLE TO FIND Fortifeye Unknown ??? [DISCONTINUED] acetaminophen (TYLENOL) 325 mg Tablet Take 650 mg by mouth every 4 hours as needed for Pain. Unknown ??? diphenhydrAMINE (BENADRYL) 25 mg Capsule Take 25 mg by mouth nightly as needed for Itching. Takes 2 tablets In am and 2 tablets in pm Unknown ??? fluticasone (FLOVENT) 110 mcg/actuation HFA Aerosol Inhaler Inhale 1 puff into the lungs 2 times daily. flovent diskus Unknown ??? multivitamin (THERAGRAN) tablet Take 1 tablet by mouth daily. Unknown ??? POLYETHYLENE GLYCOL 3350 (MIRALAX ORAL) Take by mouth as needed. Unknown ??? CARBOXYMETHYLCELLULOSE SODIUM (REFRESH TEARS OPHT) Apply to eye 2 times daily. Unknown ??? FOLIC ACID ORAL Unknown Updated Allergies/ADRs: Allergies Allergen Reactions ??? Latex Itching and Rash ??? Kaopectate [Bismuth Subsalicylate] Other (See Comments) Rectal Bleeding ??? Lisinopril Other (See Comments) coughing ??? Mineral Oil ??? Hemorrhoid Cream [Tissue Resp Fact-Shark Fadumo Oil] Other (See Comments) Bleeding History of Presentation: Lindsey Deleon is a 72 y.o. female w/ PMH of moderate-severe (mean transvalvular gradient 29mmHg, AUREA 0.84 cm??, LVEF 70%), hypertension, hyperlipidemia, COPD/emphysema, hypothyroidism, GERD,PAD with history of left iliofemoral endarterectomy, bilateral TRE stent placement (2016) and rightCEA for asymptomatic stenosis (May 2019). Now hospital day 6 for expedited TAVR. Major Procedures/Operations: 03/07/23: left TF TAVR Hospital Course: Severe s/p TF TAVR Lindsey Deleon was admitted to [facility] on 03/01/2023 via the Cardiology Service for expedited TAVR workup and procedure in light of rapidly progressive symptoms. She was brought to the label maker 03/07/[address] Rahat Vargas and Mike Torres and their teams performed a transfemoral TAVR. She tolerated the procedure and was brought to the Cardiac Cath Recovery Unit and then to the Step Down Unit. Routine postoperative and home medications were started and a diet was advanced. She showed no new bundle branch block and her groins were soft without hematoma. Atrial Fibrillation On day of dischagre, patient had a brief episode of atrial fibrillation with RVR. Rates 150-160. She was given 5mg IVP Metoprolol with appropriate response. She was started on 25mg Metoprolol XL which she tolerated, repeat EKG revealed SR with stable RBBB. She was discharged home with a Zio patch. She was seen by Physical Therapy and Cardiac Rehabilitation. Her discharge plan at this time is to home with daughter. The remainder of her hospital course was uneventful and by postoperative day #1 she had met all criteria for discharge. Anticoagulation Plan: ASA 325 (resumption of pre TAVR therapy) Vital Signs at Discharge: Last set of vitals: BP 134/52 (BP Location (NBP): Right arm, Patient Position: Lying) Pulse 68 Temp 36.8 ??C (98.2 ??F) (Oral) Resp 20 Ht 160 cm (5' 2.99) Wt 76.7 kg (169 lb 1.5 oz) WeK213% BMI 29.96 kg/m?? Patient Vitals for the past 168 hrs: Weight 03/08/23 0359 76.7 kg (169 lb 1.5 oz) 03/07/23 0343 77.2 kg (170 lb 3.1 oz) 03/06/23 0301 77.7 kg (171 lb 4.8 oz) 03/05/23 0522 77.5 kg (170 lb 12.8 oz) 03/04/23 0635 77.4 kg (170 lb 10.2 oz) 03/03/23 0341 77.1 kg (169 lb 15.6 oz) 03/02/23 0600 78 kg (171 lb 15.3 oz) 03/01/23 1259 78 kg (171 lb 15.3 oz) Current weight: 76.7 kg Admit/Preop weight: 77.2 kg Pertinent physical exam findings prior to discharge: General: Patient is pleasant and cooperative. No acute distress. Neuro: EOMI, Muscle strength is 5/5 and symmetric in upper and lower extremities bilaterally. No focal neurologic deficits. Lungs: CTAB, No wheezing rales or rhonchi. Heart: RRR in the 70s, briefly 150-160 on tele, converted to SR 70s with IVP metoprolol Abdomen: Soft and non-distended. +BS. Non-tender throughout. No rebound or rigidity. Ext: Moving all extremities symmetrically. Temperature is warm and symmetric. Groins: Covered CDI, soft without hematoma Important Studies and Lab Data: Lab Results Component Value Date WBC 11.5 (H) 03/08/2023 RBC 3.43 (L) 03/08/2023 HGB 11.1 (L) 03/08/2023 HCT 32.9 (L) 03/08/2023 PLATELET 216 03/08/2023 No results for input(s): INR in the last 168 hours. Lab Results Component Value Date NA 134 (L) 03/08/2023 K 3.8 03/08/2023 CL 99 03/08/2023 CO2 23 03/08/2023 BUN 21 (H) 03/08/2023 CREATININE 0.89 03/08/2023 Pending Studies and Lab Data: None Immunizations Given this Hospitalization: Immunization History Administered Date(s) Administered ??? Influenza PF, Split (High Dose) 08/17/2017 Smoking Status at Discharge: Social History Tobacco Use Smoking Status Former ??? Packs/day: 2.00 ??? Years: 30.00 ??? Pack years: 60.00 ??? Types: Cigarettes ??? Quit date: 10/21/2004 ??? Years since quittin.3 Smokeless Tobacco Never Discharge Medications: Your Medications New Medications Dose Details amoxicillin 500 mg capsule Commonly known as: Amoxil Take 4 capsules by mouth once for 1 dose. Take 4 capsules by mouth 1 hour prior to any dental procedure 2,000 mg Quantity: 4 capsule Refills: 0 metoprolol succinate XL 25 mg ER 24 hr tablet Commonly known as: Toprol-XL Take 1 tablet by mouth daily. Start taking on: March 09, 2023 25 mg Quantity: 30 tablet Refills: 3 Continued medications with new dosing Dose Details acetaminophen 500 mg tablet Commonly known as: Tylenol Take 2 tablets by mouth every 6 hours as needed for Pain. What changed: ?? medication strength ?? how much to take ?? when to take this 1,000 mg Refills: 0 amLODIPine 5 mg tablet Commonly known as: Norvasc Take 2 tablets by mouth daily. What changed: how much to take 10 mg Quantity: 90 tablet Refills: 3 nystatin 100,000 unit/gram Powd Commonly known as: MYCOSTATIN Apply topically 4 times daily. What changed: Another medication with the same name was removed. Continue taking this medication, and follow the directions you see here. Refills: 0 Continued medications, unchanged Dose Details albuteroL 90 mcg/actuation Hfaa Inhale 2 puffs into the lungs every 4 hours as needed for Wheezing. Use with spacer 2 puff Refills: 0 aspirin 325 mg tablet Take 325 mg by mouth daily. 325 mg Refills: 0 buPROPion SR 150 mg SR 12 hr tablet Commonly known as: Wellbutrin SR Take by mouth. Refills: 0 cetirizine 10 mg tablet Commonly known as: ZyrTEC Take 10 mg by mouth daily. 10 mg Refills: 0 citalopram 40 mg tablet Commonly known as: CeleXA Take 40 mg by mouth daily. 40 mg Refills: 0 D3-2000 ORAL Take by mouth. Refills: 0 diclofenac 1 % Gel Commonly known as: Voltaren Apply topically. Refills: 0 diphenhydrAMINE 25 mg capsule Commonly known as: Benadryl Take 25 mg by mouth nightly as needed for Itching. Takes 2 tablets In am and 2 tablets in pm 25 mg Refills: 0 ezetimibe 10 mg tablet Commonly known as: Zetia Take 10 mg by mouth daily. 10 mg Refills: 0 fluticasone propionate 110 mcg/actuation Hfaa Commonly known as: Flovent HFA Inhale 1 puff into the lungs 2 times daily. flovent diskus 1 puff Refills: 0 FOLIC ACID ORAL Refills: 0 guaiFENesin ER 600 mg ER 12 hr tablet Commonly known as: Mucinex Take by mouth as needed. Refills: 0 hydroCHLOROthiazide 12.5 mg tablet Commonly known as: Hydrodiuril Take 2 tablets by mouth daily. 25 mg Quantity: 180 tablet Refills: 3 ipratropium-albuteroL 0.5 mg-3 mg(2.5 mg base)/3 mL Nebu Commonly known as: Duoneb Take 3 mLs by nebulization 2 times daily. 3 mL Refills: 0 iron polysaccharides 150 mg iron complex capsule Commonly known as: Niferex Take 65 mg by mouth daily. 65 mg Refills: 0 levothyroxine 75 mcg tablet Commonly known as: Synthroid Refills: 0 MIRALAX ORAL Take by mouth as needed. Refills: 0 multivitamin Tab Commonly known as: THERAGRAN Take 1 tablet by mouth daily. 1 tablet Refills: [address] capsule Commonly known as: PriLOSEC TAKE 1 CAPSULE BY MOUTH 30 MINUTES BEFORE EVENING MEAL Refills: 0 REFRESH TEARS OPHT Apply to eye 2 times daily. Refills: 0 rosuvastatin 20 mg tablet Commonly known as: Crestor Take 20 mg by mouth daily. 20 mg Refills: 0 ziprasidone 20 mg capsule Commonly known as: Geodon Take 20 mg by mouth 2 times daily (with meals). 20 mg Refills: 0 STOPPED Medications calcium-vitamin D 500 mg-5 mcg (200 unit) Tab hydrocortisone 1 % Crea UNABLE TO FIND Instructions Given to Patient at Discharge: General Instructions None TAVR Discharge Instructions: Call your doctor if: You have a fever of greater than 101 degrees, shaking chills, if you develop redness or drainage from your procedure sites, or if you have questions. Please call your Explosives Detonator's office if you have any discharge or drainage from your procedural sites. Your Explosives Detonator, Dr. Mike Torres and/or the Cabin Man may be reached at . Antibiotic prophylaxis: You will need to take antibiotics prior to many invasive tests and treatments, such as dental cleaning, which should be done every 6 months. Your primary care physician or your dentist can prescribe this medication. A one time prescription has been ordered for you today. Anyfuture refills should go through your PCP or Dentist. Please refer to the card with the [place] [employer] Guidelines for more information. You have been provided with a copy of this card. Please refer to the [place] [employer] Guidelines for more information. Good dental care is important for your overall health. We recommend waiting ~3 months before returning to your dentist except in cases of emergency. Activity level: Walk three times a day. You should continue to increase your walks by 1-2 minutes each day. It is expected that you will be walking 20-30 minutes twice a day within 3-4 weeks after discharge to home. Rest between activities and after meals. Use common sense, don't exhaust yourself. Home activities: You may resume your usual home activities such as housekeeping and chores; allowing time to rest as needed. Sexual activity: You may engage in sexual activity when you feel ready. Stairs: There are no restrictions on stair climbing. Use common sense. Don't exhaust yourself. Activities outside the home: After the first week home you may go out to dinner, visit friends, go to a movie, go to restorationism, etc. Heavy activities: No hunting, skiing, jogging, snow shoveling, snowmobiling, lawn mowing, swimming,golf or tennis for 1 week after your procedure. Smoking: It is very important that you not smoke after your procedure. Smoking cessation education was provided as appropriate. If you need further assistance with this please call and you will be referred to a smoking cessation specialist. Medications: Take only those medications listed on your discharge information. Keep your pain undercontrol so you can be active, do your coughing and breathing exercises and sleep. Contact us if thepain medication isn't working for you. Do not take any herbal preparations until after your follow up appointment. Diet: You should follow a regular diet until your appetite returns to normal. At that point in timeyou should resume a low fat, low cholesterol, [place] [employer] Diet. Driving: No driving for 3 days. Shower/Bath: You may shower daily. No baths, soaking, or swimming for the first week. Wound care: Please remove your dressings 48 hours after your procedure. Wash the sites daily with soap and rinse well, pat dry. Assess for any signs of infection such as increased redness, pain, warmth or drainage. Please call your chha's office if you have any discharge or drainage from your procedural sites. If there is a lot of swelling, apply tayla wraps during the day and remove at bedtime. Elevate your legs when you are sitting. Home oxygen therapy: N/A Follow up appointments: ??? Please schedule a follow-up appointment with your PCP, Vanita Churchill APRN, or Primary E Business Project Manager, in ~ 7-10 days. ??? You have a follow-up appointment with your Explosives Detonator, Dr. Mike Torres, in 1month with a chest x-ray, EKG, Echo, and labs prior to your appointment. ?? Ynvh-Inujwg-js interval: After initial 30 day follow-up appointment , all TAVR patients will follow-up again in one year with an echo. Cardiac Rehabilitation: A referral was placed for you today for cardiac rehabilitation. They will call you 1-2 weeks following hospital discharge. Future Appointments and Orders Future Appointments and Orders Future Appointments Provider Department Dept Phone 10/17/2023 9:30 AM Alley Johnson APRN [facility] Arrive at: Fuel Conversion Technician [address] [place] [phone] Future Orders Complete By Expires CBC (with Diff) [KAP901 Custom] 04/07/2023 (Approximate) 03/08/2024 Process Instructions: INCLUDES: WBC, RBC, Hgb, Hct, Platelets, RBC Indices and Differential Scheduling Instructions: Comments: Questions: Comprehensive metabolic panel (non-fasting) [LAB17 Custom] 04/07/2023 (Approximate) 03/08/2024 Process Instructions: INCLUDES: Calcium, T Protein, Albumin, AST, ALT, Alk Phos, T Bili, BUN, Creat, GFR, Glucose, Lytes. Scheduling Instructions: Comments: Questions: Echocardiogram Transthoracic [45842 CPT(R)] 04/07/2023 (Approximate) 03/08/2024 Process Instructions: Scheduling Instructions: Questions: Where will study be performed?: [facility] [place] Does the patient have Congenital Heart Disease?: Does patient require sedation?: GA rationale: EKG 12 Lead [93292 CPT(R)] 04/07/2023 (Approximate) 03/08/2024 Process Instructions: Scheduling Instructions: Questions: Which location will this be performed?: [facility] Is a rhythm strip needed?: No XR Chest PA & Lateral (Generic) [[id number] Custom] 04/07/2023 (Approximate) 03/08/2024 Process Instructions: Scheduling Instructions: Questions: Reason for exam and clinical history: s/p TF TAVR Clinical information / guzman questions for radiologist: Where will study be performed?: [facility] Radiology Portable exam?: Stat read required?: Date of injury if applicable: Requested Time: Referral to Cardiac Rehab [[id number] Custom] As directed Process Instructions: If no progress note charted, please enter Clinical details in comments. Scheduling Instructions: Questions: My question or request is: TAVR- cardiac rehab at [facility] 48 Hrs-15 Days [WEK8443 CPT(R)] As directed Process Instructions: Scheduling Instructions: Comments: Questions: Does the patient have a pacemaker? If yes provide HI/LO settings: Apply for 7 or 14 days?: 14 Where will study be performed?: [facility] Discharge References/Attachments Transcatheter Aortic Valve Implantation (DIMAS): General Info (H[place]er) Transcatheter Aortic Valve Implantation (DIMAS): Pre-op ([place]er) Transcatheter Aortic Valve Implantation (DIMAS): Post-op ([place]er) Signed: RITA [facility] Section of Cardiac Surgery Date: 03/08/2023 CC: KYARA Plasencia Wassim, [place] [address] documented in this encounter Discharge Instructions * Patient Instructions* Mary Molina PA - 03/08/2023 10:55 AM EDT TAVR Discharge Instructions: Call your doctor if: You have a fever of greater than 101 degrees, shaking chills, if you develop redness or drainage from your procedure sites, or if you have questions. Please call your Explosives Detonator's office if you have any discharge or drainage from your procedural sites. Your Explosives Detonator, Dr. Mike Torres and/or the Cabin Man may be reached at . Antibiotic prophylaxis: You will need to take antibiotics prior to many invasive tests and treatments, such as dental cleaning, which should be done every 6 months. Your primary care physician or your dentist can prescribe this medication. A one time prescription has been ordered for you today. Anyfuture refills should go through your PCP or Dentist. Please refer to the card with the [place] [employer] Guidelines for more information. You have been provided with a copy of this card. Please refer to the [place] [employer] Guidelines for more information. Good dental care is important for your overall health. We recommend waiting ~3 months before returning to your dentist except in cases of emergency. Activity level: Walk three times a day. You should continue to increase your walks by 1-2 minutes each day. It is expected that you will be walking 20-30 minutes twice a day within 3-4 weeks after discharge to home. Rest between activities and after meals. Use common sense, don't exhaust yourself. Home activities: You may resume your usual home activities such as housekeeping and chores; allowing time to rest as needed. Sexual activity: You may engage in sexual activity when you feel ready. Stairs: There are no restrictions on stair climbing. Use common sense. Don't exhaust yourself. Activities outside the home: After the first week home you may go out to dinner, visit friends, go to a movie, go to restorationism, etc. Heavy activities: No hunting, skiing, jogging, snow shoveling, snowmobiling, lawn mowing, swimming,golf or tennis for 1 week after your procedure. Smoking: It is very important that you not smoke after your procedure. Smoking cessation education was provided as appropriate. If you need further assistance with this please call and you will be referred to a smoking cessation specialist. Medications: Take only those medications listed on your discharge information. Keep your pain undercontrol so you can be active, do your coughing and breathing exercises and sleep. Contact us if thepain medication isn't working for you. Do not take any herbal preparations until after your follow up appointment. Diet: You should follow a regular diet until your appetite returns to normal. At that point in timeyou should resume a low fat, low cholesterol, [place] [employer] Diet. Driving: No driving for 3 days. Shower/Bath: You may shower daily. No baths, soaking, or swimming for the first week. Wound care: Please remove your dressings 48 hours after your procedure. Wash the sites daily with soap and rinse well, pat dry. Assess for any signs of infection such as increased redness, pain, warmth or drainage. Please call your chha's office if you have any discharge or drainage from your procedural sites. If there is a lot of swelling, apply tayla wraps during the day and remove at bedtime. Elevate your legs when you are sitting. Home oxygen therapy: N/A Follow up appointments: Please schedule a follow-up appointment with your PCP, Vanita Churchill APRN, or Primary E Business Project Manager, in ~ 7-10 days. You have a follow-up appointment with your Explosives Detonator, Dr. Mike Torres, in 1 month with a chest x-ray, EKG, Echo, and labs prior to your appointment. [id number] interval: After initial 30 day follow-up appointment , all TAVR patients will follow-up again in one year with an echo. * Attachments The following attachments cannot be sent through Care Everywhere. * Transcatheter Aortic Valve Implantation (DIMAS): General Info (Hong Konger) * Transcatheter Aortic Valve Implantation (DIMAS): Pre-op (H[place]er) * Transcatheter Aortic Valve Implantation (DIMAS): Post-op (H[place]er) documented in this encounter Medications at Time of Discharge [...] # 1 EA, 0 Refill(s) 01/16/2023 02/05/2024 amoxicillin (Amoxil) 500 mg capsule Take 4 capsules by mouth once for 1 dose. Take 4 capsules by mouth 1 hour prior to any dental procedure 4 capsule 03/08/2023 03/08/2023 amLODIPine (Norvasc) 5 mg tabletIndications:ASCVD (arteriosclerotic cardiovascular [...] needed. 02/05/2024 documented as of this encounter Progress Notes * Mary Molina PA - 03/08/2023 8:32 AM EDT Cardiac Surgery Progress Note Lindsey Deleon is a 72 y.o. female with who is 1 Day Post-Op L TF TAVR. 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 Given 5 IVP of Metop, converted to SR 70s within ~10 minutes S: Feels great, wants to go home. +BM. Inga diet. Minimal groin pain. Ambulating. Denies SOB/CP O: Temp: [36.4 ??C (97.5 ??F)-37 ??C (98.6 ??F)] Heart Rate: [68-85] Resp: [13-24] BP: (122-169)/(43-80) SpO2: [90 %-100 %] Heart Rate from SpO2: [71 bpm-150 bpm] 03/07 0701 - 03/08 0700 In: 300 [I.V.:300] Out: 1510 [Urine:1500] Admit weight: 78 kg Current weight: Weight: 76.7 kg (169 lb 1.5 oz) Physical Exam: General: Patient is pleasant and cooperative. No acute distress. Neuro: EOMI, Muscle strength is 5/5 and symmetric in upper and lower extremities bilaterally. No focal neurologic deficits. Lungs: CTAB, No wheezing rales or rhonchi. Heart: RRR in the 70s, briefly 150-160 on tele, converted to SR 70s with IVP metoprolol Abdomen: Soft and non-distended. +BS. Non-tender throughout. No rebound or rigidity. Ext: Moving all extremities symmetrically. Temperature is warm and symmetric. Groins: Covered CDI, soft without hematoma Tubes/Lines/Drains: PIV Assessment/Plan: 72 y.o. female 1 Day Post-Op TF TAVR Was medically ready for discharge, then burst of AF vs SVT. Converted to SR with IVP metoprolol. Likely keep 1 more day to monitor and possibly start PO metoprolol Neuro: Tylenol PRN, Wellbutrin 150', Celexa 40' CV: Norvasc 10' Pulm: Wean O2 as tolerated to maintain spo2 >92% GI: Regular diet, RBOs : Voiding Renal: Replace K PRN, HCTZ 25' Heme: ASA 325' ID: DEYANIRA Endo: Levothyroxine 75' Dispo: Floor Status, Full Code Discussed with attending surgeon on rounds this morning. RITA Lewis 03/08/2023 Between the hours of 1800 - 0600 and on the weekends please page [phone]. * Suhail Padilla, KYARA - 03/08/2023 7:52 AM EDT Images from the original note were not included. Structural Heart Progress Note Patient info: Name: Lindsey Deleon : 1950 Date of Admission: 03/01/2023 ( Hospital Day 7 days ) Attending:Rahat Vargas MD ID: Lindsey Deleon is a 72 y.o. female w/ PMH of moderate-severe (mean transvalvular gradient 29 mmHg, AUREA 0.84 cm??, LVEF 70%), hypertension, hyperlipidemia, COPD/emphysema, hypothyroidism, GERD, PAD with history of left iliofemoral endarterectomy, bilateral TRE stent placement (2016) and right CEA for asymptomatic stenosis (May 2019).Now hospital day 7 s/p Left TF TAVR with 23 Ultra R Dykes. 24 Hour Events/Subjective: 03/07/2023 s/p Left TF TAVR with 23 Ultra R. 03/08/2023 Afebrile las t24 hours, blood cultures NGTD X1 - LOIS improving-baseline creatinine 1.0, creatinine 1.2-->0.89 - Narrow complex tachycardia, rates 150s this AM, challenging to differentiate/determine if irregular. Successful conversion to NSR 70s, 1.2 sec conversion pause with Labetalol 5. Normotensive and asymptomatic. Objective Vasoactive & Sedating Medications: Infusions: Continuous Infusions: Ventilator Settings: Mode: , SET RR: TV: PEEP: FiO2: VARIABLES PATIENT RR: PIP: Pplateau: SpO2: OUTPUT Resp: 18 SpO2: 94 % ABG (Arterial Blood Gas) No results for input(s): PHART, TVZ3YDL, PO2ART, SWK4JMZ, LACTATEVEN, FLG8OLV, PFRATIOART2 in the last 168 hours. VBG (Venous Blood Gas) No results for input(s): PHVEN, GZG9DIH, PO2VEN, IDF1OAQ, LACTATEVEN in the last 168 hours. Mixed Venous Sat No results for input(s): D0TZNO2 in the last 168 hours. Vitals Last value Range last 24 hrs Temperature Temp: 36.8 ??C (98.2 ??F) Temp: [36.4 ??C (97.5 ??F)-37 ??C (98.6 ??F)] Heart Rate Heart Rate: 85 Heart Rate: [68-85] Blood Pressure BP: 133/55 BP: (122-169)/(43-80) Art Line BP BP (Arterial Line): 150/41 BP (Arterial Line): (150-184)/(41-67) MAP (NBP): [68 mmHg-97 mmHg] Respiratory Rate Resp: 18 Resp: [13-24] SpO2 SpO2: 94 % SpO2: [90 %-100 %] Oxygen Delivery Oxygen Therapy O2 Device: None (Room air) O2 Flow Rate (L/min): 2 L/min Reason for Oxygen: Patient currently on room air Intake/Output Summary (Last 24 hours) at 03/08/2023 0935 Last data filed at 03/08/2023 0818 Gross per 24 hour Intake 300 ml Output 1860 ml Net -1560 ml Patient Vitals for the past 168 hrs: Weight 03/08/23 0359 76.7 kg (169 lb 1.5 oz) 03/07/23 0343 77.2 kg (170 lb 3.1 oz) 03/06/23 0301 77.7 kg (171 lb 4.8 oz) 03/05/23 0522 77.5 kg (170 lb 12.8 oz) 03/04/23 0635 77.4 kg (170 lb 10.2 oz) 03/03/23 0341 77.1 kg (169 lb 15.6 oz) 03/02/23 0600 78 kg (171 lb 15.3 oz) 03/01/23 1259 78 kg (171 lb 15.3 oz) Physical Exam: General: Pleasant female, no acute distress HEENT: Normocephalic, atraumatic, benign NECK: Supple, no masses, FROM CV: Normal rate, regular rhythm, no ventricular heaves, 1+ radial/DP pulses RESP: CTAB, moving air well, symmetric chest excursion GI: Soft, nd, nttp EXT: No edema, access sites nttp, non-indurated, no sig ecchymosis NEURO: No gross focal deficits PSYC: Appropriate mood and affect, alert and oriented DERM: No rash, wwp Lines/Drains/Airways Lines: Peripheral IV Line - Single Lumen 03/01/23 1407 cephalic vein (lateral side of arm), right 20 gauge;1.75 in length (Active) Indication/Daily Review of Necessity fluid therapy intermittent 03/07/23825 Site Preparation/Maintenance dressing: dry and intact 03/03/231999 Securement site guard in place 03/07/23825 Patency/Maintenance flushed without difficulty 03/07/23825 Phlebitis 0-->no symptoms 03/07/23926 Infiltration 0-->no symptoms 03/07/23926 Site Signs/Symptoms no redness;no swelling;no warmth;no pain;no palpable cord;no streak formation;no drainage 03/03/231999 Labs: Recent Labs 03/08/2341203/07/23200903/07/2333403/06/2340103/05/2334903/04/23516 WBC 11.5* -- 6.7 6.4 7.5 7.5 HGB 11.1* 11.1* 11.8 12.1 11.9 12.1 HCT 32.9* -- 35.1* 35.5* 35.4* 36.6 PLATELET 216 -- 241 258 228 254 MCV 95.9* -- 96.4* 95.9* 99.2* 98.7* Recent Labs 03/08/2341203/07/23200903/07/2333403/06/2340103/05/23 0350 03/04/23 0517 03/03/23 0407 NA 134* -- 132* 132* 133* 132* 138 CL 99 -- 99 95* 96* 95* 103 CO2 23 -- 22 K 3.8 4.1 3.6 3.7 4.4 3.9 4.3 MAGNESIUM -- -- 0.98 0.94 1.03 0.98 0.96 PHOS -- -- 3.8 4.8* 5.6* 4.6* 4.6* CALCIUM 9.2 -- 9.1 9.5 9.5 9.6 9.4 BUN 21* -- 25* 27* 31* 22* 18 CREATININE 0.89 -- 1.05 1.23* 1.69* 1.21* 1.01 Diagnostics: Echocardiogram (03/01/2023) Interpretation Summary Left ventricle is of normal size. Wall thickness is mildly increased. Left ventricular systolic function is normal. The left ventricular ejection fraction is 70% by Bailey's biplane. There are no segmental wall motion abnormalities. The right ventricle is of normal size. Right ventricular systolic function is normal. There is moderate to severe aortic stenosis. The mean gradient across the aortic valve is 29. The aortic valve area calculated using the continuity equation is 0.84 cm2. The mitral valve leaflets are thickened. There is heavy posterior mitral annular calcification. The estimated mean gradient across the mitral valve is 5 mmHg. There is mild to moderate mitral regurgitation. Aortic Valve The aortic valve is tricuspid. The aortic valve is moderately calcified. There is moderate to severe aortic stenosis. The peak instantaneous gradient across the aortic valve is 51 mmHg. The mean gradient across the aortic valve is 29. The aortic valve area calculated using the continuity equation is 0.84 cm2. There is mild aortic regurgitation. TTE - Pre/post TAVR 03/07/2023 PRE-TAVR: There is severe . The peak/mean gradients are 47/30 mmHg respectively. SVI 32.2ml/m2, DOI 0.22, AUREA 0.68cm2. Normal biventricular systolic function. ?? POST-TAVR: There is now an Dykes TAVR valve (23mm mm) present. Aortic valve appears well seated with normal function. The peak/mean gradients are 20/8 mmHg respectively. SVI 50.9 ml/m2, DOI 0.82, AUREA 2.6cm2. Left ventricle is of normal size. Left ventricular systolic function is hyperdynamic. Left ventricular ejection fraction is estimated visually at 75-80%. (post procedure). There are no segmental wall motion abnormalities. The right ventricle is probably normal in size. Right ventricular function is probably normal. There is no pericardial effusion. ?? Chest XR One View (03/06/2023) Findings No acute pulmonary pathology. No change - EKG () -post-TAVR Findings -normal sinus rhythm. Right bundle branch block, FL 168 ms from 198ms, AXU587 ms from 144 ms Medications Scheduled Meds: ??? metoprolol succinate XL 25 mg Oral Daily ??? sodium chloride 0.9 % (flush) 5 mL Intravenous BID ??? pantoprazole EC 40 mg Oral Daily Or ??? pantoprazole 40 mg Intravenous Daily ??? senna-docusate 2 tablet Oral Daily ??? mometasone 220 mcg Inhalation Nightly ??? amLODIPine 10 mg Oral Daily ??? buPROPion SR 150 mg Oral Daily ??? citalopram 40 mg Oral Daily ??? hydroCHLOROthiazide 25 mg Oral Daily ??? levothyroxine 75 mcg Oral QAM ??? ziprasidone 20 mg Oral BID WC ??? aspirin EC 325 mg Oral Daily ??? ezetimibe 10 mg Oral QPM ??? rosuvastatin 20 mg Oral QPM Continuous Infusions: PRN Meds:.sodium chloride 0.9 % (flush), lidocaine, ondansetron, [START ON 03/10/2023] bisacodyL, acetaminophen, magnesium hydroxide, ipratropium-albuteroL Assessment & Plan: Lindsey Deleon is a 72 y.o. female w/ PMH of moderate-severe (mean transvalvular gradient 29mmHg, AUREA 0.84 cm??, LVEF 70%), hypertension, hyperlipidemia, COPD/emphysema, hypothyroidism, GERD,PAD with history of left iliofemoral endarterectomy, bilateral TRE stent placement (2016) and rightCEA for asymptomatic stenosis (May 2019).Now hospital day 7 s/p Left TF TAVR with 23 Ultra R Dykes. 1. Aortic Stenosis s/p L TF TAVR with 23 Ultra R Dykes -Post- TAVR TTE AUREA 2.62 cm2, peak mean TVGs 20/8 mmHg, SVI 50.9 ml/m2, DOI 0.82. 2. LOIS -Resolved, cr below baseline of 1.0 3. Narrow complex tachycardia s/p TF TAVR - Discussed inititating metoprolol- XL [address] Torres and CT team Plan -Discharge this afternoon. Repeat 12 lead prior to D/C s/p AVN blockers given pre-TAVR RBBB. -D/C with Ziopatch D/C with Metoprolol XL 25 daily -Continue ASA 325 daily (opth). - Follow up in 30 days with EKG, CBC, BMP, and echo Suhail Padilla APRN Structural Heart Disease Pager [phone] * Cyn Soler - 03/07/2023 5:00 PM EDT Registered Diet Technician Encounter Note Patient Name: Lindsey Deleon : [id number] MR#: [id number] Admit Date: 03/01/2023 12:42 PM Hospital Day 6 days Narrative: Initiated visit to follow up from yesterday. Kelly still in label maker recovery, 3 family members waiting in her room. Family looking forward to seeing her, said the procedure went well. Her son sharedthat she was more nervous going into this than the last time she had a stent placed. Assessment: Family supportive and coping well. Intervention and Outcome: Offered compassionate presence, listening and left a note for the patient. Follow-up: None at this time. Time in Direct Care: 20 min. Cyn Soler 03/07/2023 * Suhail Padilla APRN - 03/07/2023 12:10 PM EDT Images from the original note were not included. TAVR Pre Procedure Note The risks of a transcatheter aortic valve replacement (TAVR) were discussed in detail with the patient and their family who were available at the bedside. These include but are not limited to vascular injury, bleeding, the need for blood transfusion, stroke, valve malpositioning and leak, need for emergent surgery for vascular or cardiac issues, and . We also discussed the inherent nature ofhow a TAVR valve is secured and the concomitant risk for heart block including left bundle branch block and complete heart block requiring permanent pacemaker placement. After all of these risks werereviewed, the patient and their family members had a chance to ask questions. After the questions were answered to their satisfaction, and informed consent document was provided and signed. ASA: 2: Patient with mild systemic disease Mallampati: II: tonsillar pillars are blocked by the tongue -Upper Dental appliances to be removed prior transfer to procedural area Sedation Plan: moderate (conscious sedation) Assessment and Plan: Proceed with Left TF TAVR today, see progress note for further details. Suhail Padilla APRN Structural Heart Disease Pager [phone] * Valerie Suhailcelio Dover APRN - 03/07/2023 11:38 AM EDT Images from the original note were not included. Structural Heart Progress Note Patient info: Name: Lindsey Deleon : 1950 Date of Admission: 03/01/2023 ( Hospital Day 6 days ) Attending:Brandon Crowley MD ID: Lindsey Deleon is a 72 y.o. female w/ PMH of moderate-severe (mean transvalvular gradient 29 mmHg, AUREA 0.84 cm??, LVEF 70%), hypertension, hyperlipidemia, COPD/emphysema, hypothyroidism, GERD, PAD with history of left iliofemoral endarterectomy, bilateral TRE stent placement (2016) and right CEA for asymptomatic stenosis (May 2019). Now hospital day 6 for expedited TAVR. 24 Hour Events/Subjective: 03/06/2023 -Tmax 38 ??C, WBC stable, infectious work-up including negative chest x-ray, negative UA, pending blood cultures. - LOIS improving-baseline creatinine 1.0, creatinine 1.2 from 1.7 03/07/2023 -Afebrile last 24 hours - Ready for tentative TAVR 03/07 Objective Vasoactive & Sedating Medications: Infusions: Continuous Infusions: Ventilator Settings: Mode: , SET RR: TV: PEEP: FiO2: VARIABLES PATIENT RR: PIP: Pplateau: SpO2: OUTPUT Resp: 16 SpO2: 95 % ABG (Arterial Blood Gas) No results for input(s): PHART, USS2AFR, PO2ART, ONQ8HYK, LACTATEVEN, YDG4LDP, PFRATIOART2 in the last 168 hours. VBG (Venous Blood Gas) No results for input(s): PHVEN, ALJ2GTB, PO2VEN, FDD9IXZ, LACTATEVEN in the last 168 hours. Mixed Venous Sat No results for input(s): C5VXHY6 in the last 168 hours. Vitals Last value Range last 24 hrs Temperature Temp: 36.8 ??C (98.2 ??F) Temp: [36.4 ??C (97.5 ??F)-36.9 ??C (98.4 ??F)] Heart Rate Heart Rate: 68 Heart Rate: [68-79] Blood Pressure BP: 142/60 BP: (126-170)/(48-70) Art Line BP BP (Arterial Line): -- MAP (NBP): [79 mmHg-94 mmHg] Respiratory Rate Resp: 16 Resp: [16-19] SpO2 SpO2: 95 % SpO2: [93 %-98 %] Oxygen Delivery Oxygen Therapy O2 Device: None (Room air) O2 Flow Rate (L/min): 2 L/min Reason for Oxygen: Patient currently on room air Intake/Output Summary (Last 24 hours) at 03/07/2023 1148 Last data filed at 03/07/2023 0823 Gross per 24 hour Intake 750 ml Output 3875 ml Net -3125 ml Patient Vitals for the past 168 hrs: Weight 03/07/23 0343 77.2 kg (170 lb 3.1 oz) 03/06/23 0301 77.7 kg (171 lb 4.8 oz) 03/05/23 0522 77.5 kg (170 lb 12.8 oz) 03/04/23 0635 77.4 kg (170 lb 10.2 oz) 03/03/23 0341 77.1 kg (169 lb 15.6 oz) 03/02/23 0600 78 kg (171 lb 15.3 oz) 03/01/23 1259 78 kg (171 lb 15.3 oz) Physical Exam: General: Pleasant female, no acute distress HEENT: Normocephalic, atraumatic, benign NECK: Supple, no masses, FROM CV: Normal rate, regular rhythm, holosystolic murmur, no ventricular heaves, 1+ radial/DP pulses RESP: CTAB, moving air well, symmetric chest excursion GI: Soft, nd, nttp EXT: No edema, access sites nttp, non-indurated, no sig ecchymosis NEURO: No gross focal deficits PSYC: Appropriate mood and affect, alert and oriented DERM: No rash, wwp Lines/Drains/Airways Lines: Peripheral IV Line - Single Lumen 03/01/23 1407 cephalic vein (lateral side of arm), right 20 gauge;1.75 in length (Active) Indication/Daily Review of Necessity fluid therapy intermittent 04/11/23 0826 Site Preparation/Maintenance dressing: dry and intact 03/03/231999 Securement site guard in place 03/07/23825 Patency/Maintenance flushed without difficulty 03/07/23825 Phlebitis 0-->no symptoms 03/07/23926 Infiltration 0-->no symptoms 03/07/23926 Site Signs/Symptoms no redness;no swelling;no warmth;no pain;no palpable cord;no streak formation;no drainage 03/03/231999 Labs: Recent Labs 03/07/23 0335 03/06/23 0402 03/05/23 0350 03/04/23 0517 03/03/237 WBC 6.7 6.4 7.5 7.5 8.9 HGB 11.8 12.1 11.9 12.1 12.0 HCT 35.1* 35.5* 35.4* 36.6 37.2 PLATELET 241 258 228 254 258 MCV 96.4* 95.9* 99.2* 98.7* 100.5* Recent Labs 03/07/23 0335 03/06/23 0402 03/05/23 0350 03/04/23 0517 03/03/23 0407 NA 132* 132* 133* 132* 138 CL 99 95* 96* 95* 103 CO2 23 23 24 27 22 K 3.6 3.7 4.4 3.9 4.3 MAGNESIUM 0.98 0.94 1.03 0.98 0.96 PHOS 3.8 4.8* 5.6* 4.6* 4.6* CALCIUM 9.1 9.5 9.5 9.6 9.4 BUN 25* 27* 31* 22* 18 CREATININE 1.05 1.23* 1.69* 1.21* 1.01 Diagnostics: Echocardiogram (03/01/2023) Interpretation Summary Left ventricle is of normal size. Wall thickness is mildly increased. Left ventricular systolic function is normal. The left ventricular ejection fraction is 70% by Bailey's biplane. There are no segmental wall motion abnormalities. The right ventricle is of normal size. Right ventricular systolic function is normal. There is moderate to severe aortic stenosis. The mean gradient across the aortic valve is 29. The aortic valve area calculated using the continuity equation is 0.84 cm2. The mitral valve leaflets are thickened. There is heavy posterior mitral annular calcification. The estimated mean gradient across the mitral valve is 5 mmHg. There is mild to moderate mitral regurgitation. Aortic Valve The aortic valve is tricuspid. The aortic valve is moderately calcified. There is moderate to severe aortic stenosis. The peak instantaneous gradient across the aortic valve is 51 mmHg. The mean gradient across the aortic valve is 29. The aortic valve area calculated using the continuity equation is 0.84 cm2. There is mild aortic regurgitation. ?? Chest XR One View (03/06/2023) Findings No acute pulmonary pathology. No change - EKG (03/05/2023) -pre-TAVR Findings -normal sinus rhythm. Right bundle branch block, left anterior fascicular block. Medications Scheduled Meds: ??? mupirocin Topical (Top) BID ??? sodium chloride 0.9 % (flush) 5 mL Intravenous BID ??? mometasone 220 mcg Inhalation Nightly ??? amLODIPine 10 mg Oral Daily ??? sodium chloride 0.9 % (flush) 5 mL Intravenous BID ??? enoxaparin 40 mg Subcutaneous Nightly ??? buPROPion SR 150 mg Oral Daily ??? citalopram 40 mg Oral Daily ??? hydroCHLOROthiazide 25 mg Oral Daily ??? levothyroxine 75 mcg Oral QAM ??? pantoprazole EC 40 mg Oral Daily ??? ziprasidone 20 mg Oral BID WC ??? aspirin EC 325 mg Oral Daily ??? ezetimibe 10 mg Oral QPM ??? rosuvastatin 20 mg Oral QPM Continuous Infusions: PRN Meds:.sodium chloride 0.9 % (flush), lidocaine, sodium chloride 0.9 % (flush), ipratropium-albuteroL, iohexoL Assessment & Plan: Lindsey Deleon is a 72 y.o. female w/ PMH moderate-severe (mTVG 29 mmHg, AUREA 0.84 cm??, LVEF70%), hypertension, hyperlipidemia, COPD/emphysema, hypothyroidism, GERD, PAD with history of left iliofemoral endarterectomy, bilateral TRE stent placement (2016) and right CEA for asymptomatic stenosis (May 2019). Now hospital day 6 for expedited TAVR. Natalie is pleasant and comfortable when seeing her this morning, accompanied by her son. She deniesany concerns over the weekend. She has been limited to mobilizing within her room and using wheelchair in the hallways as an inpatient. Consent was signed including a discussion including but not limited to risk for possible pacemaker needs, bleeding, vascular complications, epi procedural complications, and airway concerns. She and her son expressed their full understanding of risks of benefitsand would like to proceed with transfemoral approach TAVR today. Plan -Planned Left TF TAVR 03/[address] Torres -Previously taking ASA 325 daily (opth). Will discuss post-procedural SAPT plan with Dr. Torres. - Appreciate medication and hemodynamic optimization per primary team -Transfer to CT service status post TAVR for primary team management Shuail Stanislaw KYARA Padilla Structural Heart Disease Pager [phone] Associated attestation - Mike Torres MD - 03/07/2023 4:14 PM EDT Attending Addendum: The patient was seen and examined in conjunction with Mr Valerie APRN. My history, physical exam findings, assessment, and plan are reflected in that note. Lab and relevant imaging data was reviewed and the plan was communicated with the patient and available family. TAVR today. Mike Torres MD, [facility], [facility] Attending E Business Project Manager Pager [phone] * Brandon Crowley MD - 03/07/2023 7:05 AM EDT Images from the original note were not included. Inpatient Cardiology Progress Note Patient info: Name: Lindsey Deleon : 1950 PCP: Vanita Churchill APRN PCP phone number: [phone] Date of Admission: 03/01/2023 ( Hospital Day 6 days ) Attending:Brandon Crowley MD ID: Lindsey Deleon is a 72 y.o. female w/ PMH of , hypertension, hyperlipidemia, COPD/emphysema, hypothyroidism, GERD, PAD with h/o L iliofemoral endarterectomy, B TRE stent placement (2016) and R CEA for asymptomatic stenosis (May 2019) on Hospital Day6 for expedited TAVR. 24 Hour Events/Subjective: -Patient afebrile for 24 hours -Infectious work-up negative, cultures pending - CR now 1 from 1.2 Objective: Vitals Last value Range last 24 hrs Temperature Temp: 36.9 ??C (98.4 ??F) Temp: [36.4 ??C (97.5 ??F)-36.9 ??C (98.4 ??F)] Heart Rate Heart Rate: 70 Heart Rate: [68-79] Blood Pressure BP: 143/67 BP: (126-170)/(48-70) Art Line BP BP (Arterial Line): -- MAP (NBP): [79 mmHg-94 mmHg] Respiratory Rate Resp: 16 Resp: [16-19] SpO2 SpO2: 95 % SpO2: [93 %-98 %] Oxygen Delivery Oxygen Therapy O2 Device: None (Room air) O2 Flow Rate (L/min): 2 L/min Reason for Oxygen: Patient currently on room air Intake/Output Summary (Last 24 hours) at 03/07/2023 0930 Last data filed at 03/07/2023 0823 Gross per 24 hour Intake 750 ml Output 3875 ml Net -3125 ml Patient Vitals for the past 168 hrs: Weight 03/07/23 0343 77.2 kg (170 lb 3.1 oz) 03/06/23 0301 77.7 kg (171 lb 4.8 oz) 03/05/23 0522 77.5 kg (170 lb 12.8 oz) 03/04/23 0635 77.4 kg (170 lb 10.2 oz) 03/03/23 0341 77.1 kg (169 lb 15.6 oz) 03/02/23 0600 78 kg (171 lb 15.3 oz) 03/01/23 1259 78 kg (171 lb 15.3 oz) Admit wt: 78 kg Physical Exam: Gen: in bed in NAD HEENT: anicteric, EOMI intact, CV: RRR, 3/6 < > systolic murmur Resp: CTAB, nwb Abd: normal bowel sounds, soft, non-tender to palpation, no rebound or guarding Ext: no pedal edema Neuro: no focal deficits noted, CN II-XII grossly intact, moves all extremities spontaneously Psych: cooperative. Labs: Recent Labs 03/07/23 0335 03/06/23 0402 03/05/23 0350 03/04/23 0517 03/03/23 0407 WBC 6.7 6.4 7.5 7.5 8.9 HGB 11.8 12.1 11.9 12.1 12.0 HCT 35.1* 35.5* 35.4* 36.6 37.2 PLATELET 241 258 228 254 258 MCV 96.4* 95.9* 99.2* 98.7* 100.5* Recent Labs 03/07/23 0335 03/06/23 0402 03/05/23 0350 03/04/23 0517 03/03/23 0407 NA 132* 132* 133* 132* 138 CL 99 95* 96* 95* 103 CO2 23 23 24 27 22 K 3.6 3.7 4.4 3.9 4.3 MAGNESIUM 0.98 0.94 1.03 0.98 0.96 PHOS 3.8 4.8* 5.6* 4.6* 4.6* CALCIUM 9.1 9.5 9.5 9.6 9.4 BUN 25* 27* 31* 22* 18 CREATININE 1.05 1.23* 1.69* 1.21* 1.01 LFTs No results for input(s): PROT, ALBUMIN, AST, ALT, ALKPHOS, BILITOT, BILIDIR in the last 168 hours. Coags No results for input(s): INR, PT, PTT, FIBRINOGEN, DDIMER in the last 168 hours. Invalid input(s): THROMBIN TIME Cardiac Enzymes No results for input(s): CK, TROPONINT, PROBNP in the last 168 hours. Endocrine No results for input(s): TSH, CORTISOL in the last 7068 hours. Invalid input(s): [id number] No results for input(s): POCGLU in the last 168 hours. Heme No results for input(s): LDH, HAPTOGLOBIN, URICACID in the last 168 hours. ABG (Arterial Blood Gas) No results found for: PHART, PO2ART, WPI4EIV, CEM9KPN Microbiology: Microbiology Results (Last 30 days) No results found for the last 720 hours. Imaging: Results for orders placed or performed during the hospital encounter of 03/01/23 XR Chest One View (Exam End: 03/06/2023 8:45 AM) Impression No acute pulmonary pathology. No change. Thank you for letting us participate in the care of this patient. If you are a health care provider and have any questions regarding this report, please contact the number below. For patients who have questions please contact the health personal care aid that requested your imaging first. Electronically signed by: Tello Moon MD, [facility] ([phone]), at 03/06/2023 8:49 AM Medications Scheduled Meds: ??? mupirocin Topical (Top) BID ??? sodium chloride 0.9 % (flush) 5 mL Intravenous BID ??? potassium chloride ER 40 mEq Oral Once ??? mometasone 220 mcg Inhalation Nightly ??? amLODIPine 10 mg Oral Daily ??? sodium chloride 0.9 % (flush) 5 mL Intravenous BID ??? enoxaparin 40 mg Subcutaneous Nightly ??? buPROPion SR 150 mg Oral Daily ??? citalopram 40 mg Oral Daily ??? hydroCHLOROthiazide 25 mg Oral Daily ??? levothyroxine 75 mcg Oral QAM ??? pantoprazole EC 40 mg Oral Daily ??? ziprasidone 20 mg Oral BID WC ??? aspirin EC 325 mg Oral Daily ??? ezetimibe 10 mg Oral QPM ??? rosuvastatin 20 mg Oral QPM Continuous Infusions: PRN Meds:.sodium chloride 0.9 % (flush), lidocaine, sodium chloride 0.9 % (flush), ipratropium-albuteroL, iohexoL Assessment & Plan: Lindsey Deleon is a 72 y.o. female with PMHx as noted above admitted for symptomatic moderate to severe aortic stenosis. Structural team planning for TAVR on 03/07. Patient has not been afebrile for last 24 hours, endorses minimal productive cough but no other symptoms at this time. LOIS resolved. Plan to confirm with structural team regarding TAVR today. ?? Cardiac Meds: Amlodipine 10mg, ASA 325mg (per optho), Zetia 10mg, Rosuvastatin 20mg, HCTZ 25mg ?? #Mod-Severe Aortic Stenosis (NYHA III CCS 0) - Structural team following - Tentative plan for TAVR 03/07 - TTE obtained #Fever -resolved #Cough- improving - CXR obtained which was negative - UA w/ reflex negative - BCx pending ?? #Chronic HTN #HLD - Stop Losartan 25mg daily (new med for her started this admission) - Continue increased home Amlodipine 10mg daily - Continue home ASA 325mg daily - Continue home Zetia 10mg daily - Continue home Rosuvastatin daily - Continue home HCTZ 25mg daily #LOIS- improving Baseline Cr-1.0 - Cr 1.2 from 1.7 - Hold losartan (new med started on 03/02) #COPD - Duonebs q4h PRN ?? #GERD - Continue Pantoprazole 40mg daily ?? #Anxiety - Continue home Ziprasidone 20mg BIDAC - Continue home Citalopram 40mg daily - Continue home Bupropion 150mg daily ?? #Hypothyroidism - Continue home Levothyroxine 75mcg daily #Routine Diet: NPO diet (Give Meds) NPO diet (Give Meds) DVT Prophylaxis: LMWH GI Prophylaxis: Pantoprazole Code Status: Attempt Cardiopulmonary Resuscitation - Inpatient Dispo: Pending clinical course Mega Gant MD PGY-1 Cardiology, M1-S1 (#3011) 03/07/23 Cardiology Staff Addendum ?? Patient referred for inpatient TAVR for symptomatic aortic stenosis. Plan per structural IC is transcaval TAVR today. Patient is hemodynamically stable, without complaints, and on reasonable medical therapies. Improved??LOIS today after holding losartan and gentle fluids. Very low grade fever yesterday without recurrence, Bcx negative. ?? Brandon Crowley MD, MALIK, FACC, FACP, FASE Cardiovascular Medicine * Tosha Flores RN - 03/06/2023 6:13 PM EDT Assumed care at 0700. Assessments and vital signs as documented. Patient independent in room, goingNPO at midnight for procedure in morning. Patient had19 beats of SVT and 20 beats of SVT, asymptomatic, VSS. Team made aware. Patient received potassium replacement for potassium of 3.2 and IV Mag per provider. CXR, UA were WNL, blood cultures are pending. Patient's son at bedside. Patient hopes todischarge home after procedure. * Cyn Soler - 03/06/2023 1:00 PM EDT Registered Diet Technician Encounter Note Patient Name: Lindsey Deleon : [id number] MR#: [id number] Admit Date: 03/01/2023 12:42 PM Hospital Day 5 days Narrative: Initiated visit on unit rounds. Ms. Deleon is sitting in chair beside bed with her son next to her. Shared some of her health hx and that she is headed for heart surgery tomorrow. [place] in [place] and . Close with his mother, they shared stories about their family, about spiritism and their lives. Ms. Deleon is grateful for how nice the nursing staff has been and that she is not having an invasive procedure. Assessment: The patient and family are coping with the hospital stay. The patient has family support and appears in good spirits. Intervention and Outcome: Offered reflective listening and compassionate presence. Patient and family shared many stories about their lives. Follow-up: Will follow up tomorrow after surgery as requested by patient and her son. Time in Direct Care: 25min. Cyn Soler 03/06/2023 * Brandon Crowley MD - 03/06/2023 8:09 AM EDT Images from the original note were not included. Inpatient Cardiology Progress Note Patient info: Name: Lindsey Deleon : 1950 PCP: Vanita Churchill APRN PCP phone number: [phone] Date of Admission: 03/01/2023 ( Hospital Day 5 days ) Attending:Brandon Crowley MD ID: Lindsey Deleon is a 72 y.o. female w/ PMH of , hypertension, hyperlipidemia, COPD/emphysema, hypothyroidism, GERD, PAD with h/o L iliofemoral endarterectomy, B TRE stent placement (2016) and R CEA for asymptomatic stenosis (May 2019) on Hospital Day5 for expedited TAVR. 24 Hour Events/Subjective: - Febrile this AM to 100.4, endorsing cough - CXR neg, pending UA and BCx - CR now 1.23 from 1.7 Objective: Vitals Last value Range last 24 hrs Temperature Temp: (!) 38 ??C (100.4 ??F) (Told Genevieve RN) Temp: [36.4 ??C (97.5 ??F)-38 ??C (100.4 ??F)] Heart Rate Heart Rate: 71 Heart Rate: [66-78] Blood Pressure BP: 147/59 BP: (104-147)/(57-79) Art Line BP BP (Arterial Line): -- MAP (NBP): [71 mmHg-94 mmHg] Respiratory Rate Resp: 20 Resp: [16-20] SpO2 SpO2: 99 % SpO2: [95 %-100 %] Oxygen Delivery Oxygen Therapy O2 Device: None (Room air) O2 Flow Rate (L/min): 2 L/min Reason for Oxygen: Patient currently on room air Intake/Output Summary (Last 24 hours) at 03/06/2023 1046 Last data filed at 03/06/2023 0900 Gross per 24 hour Intake 1590 ml Output 3100 ml Net -1510 ml Patient Vitals for the past 168 hrs: Weight 03/06/23 0301 77.7 kg (171 lb 4.8 oz) 03/05/23 0522 77.5 kg (170 lb 12.8 oz) 03/04/23 0635 77.4 kg (170 lb 10.2 oz) 03/03/23 0341 77.1 kg (169 lb 15.6 oz) 03/02/23 0600 78 kg (171 lb 15.3 oz) 03/01/23 1259 78 kg (171 lb 15.3 oz) Admit wt: 78 kg Physical Exam: Gen: in bed in NAD HEENT: anicteric, EOMI intact, CV: RRR, 3/6 < > systolic murmur Resp: CTAB, nwb Abd: normal bowel sounds, soft, non-tender to palpation, no rebound or guarding Ext: no pedal edema Neuro: no focal deficits noted, CN II-XII grossly intact, moves all extremities spontaneously Psych: cooperative. Labs: Recent Labs 03/06/23 0402 03/05/23 0350 03/04/23 0517 03/03/23 0407 03/02/23 0409 WBC 6.4 7.5 7.5 8.9 8.8 HGB 12.1 11.9 12.1 12.0 11.0* HCT 35.5* 35.4* 36.6 37.2 34.3* PLATELET 258 228 254 258 250 MCV 95.9* 99.2* 98.7* 100.5* 101.5* Recent Labs 03/06/23 0402 03/05/23 0350 03/04/23 0517 03/03/23 0407 03/02/23 0409 NA 132* 133* 132* 138 138 CL 95* 96* 95* 103 104 CO2 23 24 27 22 26 K 3.7 4.4 3.9 4.3 4.3 MAGNESIUM 0.94 1.03 0.98 0.96 0.96 PHOS 4.8* 5.6* 4.6* 4.6* 3.9 CALCIUM 9.5 9.5 9.6 9.4 9.2 BUN 27* 31* 22* 18 15 CREATININE 1.23* 1.69* 1.21* 1.01 0.96 LFTs No results for input(s): PROT, ALBUMIN, AST, ALT, ALKPHOS, BILITOT, BILIDIR in the last 168 hours. Coags No results for input(s): INR, PT, PTT, FIBRINOGEN, DDIMER in the last 168 hours. Invalid input(s): THROMBIN TIME Cardiac Enzymes No results for input(s): CK, TROPONINT, PROBNP in the last 168 hours. Endocrine No results for input(s): TSH, CORTISOL in the last 7068 hours. Invalid input(s): [id number] No results for input(s): POCGLU in the last 168 hours. Heme No results for input(s): LDH, HAPTOGLOBIN, URICACID in the last 168 hours. ABG (Arterial Blood Gas) No results found for: PHART, PO2ART, [id number], [id number] Microbiology: Microbiology Results (Last 30 days) No results found for the last 720 hours. Imaging: Results for orders placed or performed during the hospital encounter of 03/01/23 XR Chest One View (Exam End: 03/06/2023 8:45 AM) Impression No acute pulmonary pathology. No change. Thank you for letting us participate in the care of this patient. If you are a health care provider and have any questions regarding this report, please contact the number below. For patients who have questions please contact the health personal care aid that requested your imaging first. Electronically signed by: Tello Moon MD, [facility] ([phone]), at 03/06/2023 8:49 AM Medications Scheduled Meds: ??? mometasone 220 mcg Inhalation Nightly ??? amLODIPine 10 mg Oral Daily ??? sodium chloride 0.9 % (flush) 5 mL Intravenous BID ??? enoxaparin 40 mg Subcutaneous Nightly ??? buPROPion SR 150 mg Oral Daily ??? citalopram 40 mg Oral Daily ??? hydroCHLOROthiazide 25 mg Oral Daily ??? levothyroxine 75 mcg Oral QAM ??? pantoprazole EC 40 mg Oral Daily ??? ziprasidone 20 mg Oral BID WC ??? aspirin EC 325 mg Oral Daily ??? ezetimibe 10 mg Oral QPM ??? rosuvastatin 20 mg Oral QPM Continuous Infusions: PRN Meds:.sodium chloride 0.9 % (flush), lidocaine, ipratropium-albuteroL, iohexoL Assessment & Plan: Lindsey Deleon is a 72 y.o. female with PMHx as noted above admitted for symptomatic moderate to severe aortic stenosis. Structural team planning for TAVR on 03/07. LOIS improving but she is now endorsing new cough and is febrile to 100.4. Her lungs sound clear and CXR obtained did not show any acute pathology. Pending UA and blood cultures. ?? Cardiac Meds: Amlodipine 10mg, ASA 325mg (per optho), Zetia 10mg, Rosuvastatin 20mg, HCTZ 25mg ?? #Mod-Severe Aortic Stenosis (NYHA III CCS 0) - Structural team following, tentative plan for TAVR on Monday - TTE obtained #Fever #New onset cough - CXR obtained which was negative - UA w/ reflex pending - BCx pending ?? #Chronic HTN #HLD - Stop Losartan 25mg daily (new med for her started this admission) - Continue increased home Amlodipine 10mg daily - Continue home ASA 325mg daily - Continue home Zetia 10mg daily - Continue home Rosuvastatin daily - Continue home HCTZ 25mg daily #LOIS- improving Baseline Cr-1.0 - Cr 1.2 from 1.7 - Hold losartan (new med started on 03/02) #COPD - Duonebs q4h PRN ?? #GERD - Continue Pantoprazole 40mg daily ?? #Anxiety - Continue home Ziprasidone 20mg BIDAC - Continue home Citalopram 40mg daily - Continue home Bupropion 150mg daily ?? #Hypothyroidism - Continue home Levothyroxine 75mcg daily #Routine Diet: Daily Healthy Menu Choices/Cardiac diet ([facility] [place]-Diet) NPO diet (Give Meds) DVT Prophylaxis: LMWH GI Prophylaxis: Pantoprazole Code Status: Attempt Cardiopulmonary Resuscitation - Inpatient Dispo: Pending clinical course Mega Gant MD PGY-1 Cardiology, M1-S1 (#3011) 03/06/23 Cardiology Staff Addendum ?? Lindsey Deleon is a 72 y.o. female whom I saw today with Dr. Gatn. ??I have personally interviewed and examined the patient and reviewed appropriate data, including labs, ECGs, and other diagnostic studies. I agree with the principal findings documented above, with additions and exceptions as below. ??The assessment and plan were formulated in discussion with me. ?? Patient referred for inpatient TAVR for symptomatic aortic stenosis. Plan per structural IC is TAVRon Monday, 03/07. Patient is hemodynamically stable, without complaints, and on reasonable medical therapies. Improving LOIS today after holding losartan and gentle fluids yesterday. However, very lowgrade fever today with cough. CXR OK. Will check UA and BCx, follow fever curve. ?? Brandon Crowley MD, MALIK, FACC, FACP, FASE Cardiovascular Medicine * Sylvie Eaton RN - 03/05/2023 6:05 PM EDT Assumed care at 0700. Assessments and vital signs as documented. Patient received IV fluids (see MAR). Patient independent in room, allowed off telemetry per provider to leave unit with son and shower. Patient to have TAVR 03/07/23, education started. Patient hopes to discharge home after procedure. * Brandon Crowley MD - 03/05/2023 8:36 AM EDT Images from the original note were not included. Inpatient Cardiology Progress Note Patient info: Name: Lindsey Deleon : 1950 PCP: Vanita Churchill APRN PCP phone number: [phone] Date of Admission: 03/01/2023 ( Hospital Day 4 days ) Attending:Brandon Crowley MD ID: Lindsey Deleon is a 72 y.o. female w/ PMH of , hypertension, hyperlipidemia, COPD/emphysema, hypothyroidism, GERD, PAD with h/o L iliofemoral endarterectomy, B TRE stent placement (2016) and R CEA for asymptomatic stenosis (May 2019) on Hospital Day4 for expedited TAVR. 24 Hour Events/Subjective: - Overnight reported 3/10 midsternal chest pain when getting back from the bathroom - Cr uptrending 1.0 to 1.2 to now 1.7 today Objective: Vitals Last value Range last 24 hrs Temperature Temp: 36.6 ??C (97.9 ??F) Temp: [36.4 ??C (97.5 ??F)-36.6 ??C (97.9 ??F)] Heart Rate Heart Rate: 70 Heart Rate: [65-76] Blood Pressure BP: 141/55 BP: (98-160)/(53-70) Art Line BP BP (Arterial Line): -- MAP (NBP): [67 mmHg-107 mmHg] Respiratory Rate Resp: 18 Resp: [16-18] SpO2 SpO2: 95 % SpO2: [93 %-100 %] Oxygen Delivery Oxygen Therapy O2 Device: None (Room air) O2 Flow Rate (L/min): 2 L/min Reason for Oxygen: Subjective dyspnea with no hypoxia Intake/Output Summary (Last 24 hours) at 03/05/2023 0836 Last data filed at 03/05/2023 0526 Gross per 24 hour Intake 2535 ml Output 3550 ml Net -1015 ml Patient Vitals for the past 168 hrs: Weight 03/05/23 0522 77.5 kg (170 lb 12.8 oz) 03/04/23 0635 77.4 kg (170 lb 10.2 oz) 03/03/23 0341 77.1 kg (169 lb 15.6 oz) 03/02/23 0600 78 kg (171 lb 15.3 oz) 03/01/23 1259 78 kg (171 lb 15.3 oz) Admit wt: 78 kg Physical Exam: Gen: in bed in NAD HEENT: anicteric, EOMI intact, CV: RRR, 3/6 < > systolic murmur Resp: Inspiratory rales Abd: normal bowel sounds, soft, non-tender to palpation, no rebound or guarding Ext: no pedal edema Neuro: no focal deficits noted, CN II-XII grossly intact, moves all extremities spontaneously Psych: cooperative. Labs: Recent Labs 03/05/23 0350 03/04/23 0517 03/03/23 0407 03/02/23 0409 03/01/23 1648 WBC 7.5 7.5 8.9 8.8 7.4 HGB 11.9 12.1 12.0 11.0* 11.7 HCT 35.4* 36.6 37.2 34.3* 36.2 PLATELET 228 254 258 250 276 MCV 99.2* 98.7* 100.5* 101.5* 100.6* Recent Labs 03/05/23 0350 03/04/23 0517 03/03/23 0407 03/02/23 0409 03/01/23 1648 NA 133* 132* 138 138 140 CL 96* 95* 103 104 103 CO2 24 27 22 26 26 K 4.4 3.9 4.3 4.3 4.3 MAGNESIUM 1.03 0.98 0.96 0.96 0.93 PHOS 5.6* 4.6* 4.6* 3.9 4.1 CALCIUM 9.5 9.6 9.4 9.2 9.5 BUN 31* 22* 18 15 14 CREATININE 1.69* 1.21* 1.01 0.96 0.99 LFTs No results for input(s): PROT, ALBUMIN, AST, ALT, ALKPHOS, BILITOT, BILIDIR in the last 168 hours. Coags No results for input(s): INR, PT, PTT, FIBRINOGEN, DDIMER in the last 168 hours. Invalid input(s): THROMBIN TIME Cardiac Enzymes No results for input(s): CK, TROPONINT, PROBNP in the last 168 hours. Endocrine No results for input(s): TSH, CORTISOL in the last 7068 hours. Invalid input(s): [id number] No results for input(s): POCGLU in the last 168 hours. Heme No results for input(s): LDH, HAPTOGLOBIN, URICACID in the last 168 hours. ABG (Arterial Blood Gas) No results found for: PHART, PO2ART, [id number], [id number] Microbiology: Microbiology Results (Last 30 days) No results found for the last 720 hours. Imaging: No results found for this visit on 03/01/23. Medications Scheduled Meds: ??? mometasone 220 mcg Inhalation Nightly ??? amLODIPine 10 mg Oral Daily ??? losartan 25 mg Oral Daily ??? sodium chloride 0.9 % (flush) 5 mL Intravenous BID ??? enoxaparin 40 mg Subcutaneous Nightly ??? buPROPion SR 150 mg Oral Daily ??? citalopram 40 mg Oral Daily ??? hydroCHLOROthiazide 25 mg Oral Daily ??? levothyroxine 75 mcg Oral QAM ??? pantoprazole EC 40 mg Oral Daily ??? ziprasidone 20 mg Oral BID WC ??? aspirin EC 325 mg Oral Daily ??? ezetimibe 10 mg Oral QPM ??? rosuvastatin 20 mg Oral QPM Continuous Infusions: PRN Meds:.sodium chloride 0.9 % (flush), lidocaine, nitroGLYcerin, ipratropium- albuteroL, iohexoL Assessment & Plan: Lindsey Deleon is a 72 y.o. female with PMHx as noted above admitted for symptomatic moderate to severe aortic stenosis. Structural team planning for TAVR on 03/07. LOIS worsening for which losartan which is a new medication for her started on 03/02 will be held today. Will give her a small 500 cc bolus of IVF on top of this. Will keep her on HCTZ as this is a home med and at her home dose. Unlikely to be postrenal in nature given no abdominal/flank pain and good UOP yesterday. ?? Cardiac Meds: Amlodipine 10mg, ASA 325mg (per optho), Zetia 10mg, Rosuvastatin 20mg, HCTZ 25mg ?? #Mod-Severe Aortic Stenosis (NYHA III CCS 0) - Structural team following, tentative plan for TAVR on Monday - TTE obtained ?? #HTN #HLD - Stop Losartan 25mg daily (new med for her started this admission) - Increased home Amlodipine to 10mg daily - Continue home ASA 325mg daily - Continue home Zetia 10mg daily - Continue home Rosuvastatin daily - Continue home HCTZ 25mg daily #LOIS - Cr 1.7 from 1.0 baseline - Hold losartan (new med started on 03/02) - Good UOP yesterday without abdominal or flank pain - Trial 500 cc fluid bolus #COPD - Duonebs q4h PRN ?? #GERD - Continue Pantoprazole 40mg daily ?? #Anxiety - Continue home Ziprasidone 20mg BIDAC - Continue home Citalopram 40mg daily - Continue home Bupropion 150mg daily ?? #Hypothyroidism - Continue home Levothyroxine 75mcg daily #Routine Diet: Daily Healthy Menu Choices/Cardiac diet ([facility] [place]-Diet) NPO diet (Give Meds) DVT Prophylaxis: LMWH GI Prophylaxis: Pantoprazole Code Status: Attempt Cardiopulmonary Resuscitation - Inpatient Dispo: Pending clinical course Lang Leong MD Cardiology, M1-S1 (#3011) 03/05/23 Cardiology Staff Addendum Lindsey Deleon is a 72 y.o. female whom I saw today with Dr. Leong. I have personally interviewed and examined the patient and reviewed appropriate data, including labs, ECGs, and other diagnostic studies. I agree with the principal findings documented above, with additions and exceptions as below. The assessment and plan were formulated in discussion with me. Patient referred for inpatient TAVR for symptomatic aortic stenosis. Plan per structural IC is TAVRon Monday, 03/07. Patient is hemodynamically stable, without complaints, and on reasonable medical therapies. Increasing LOIS today due to ARB initiation and probable volume depletion. Hold losartan. 500 mL NS with liberalized PO intake. Brandon Crowley MD, MALIK, FACC, FACP, FASE Cardiovascular Medicine * Marlon Hanna RN - 03/04/2023 10:14 PM EDT Pt was c/o chest pressure of 3/10, paged Dr. Guajardo and she advised to give nitro per protocol, EKG,and trop. 1x nitro was given while vital signs were being monitor. Pt was pain free after the 1st dose of nitro. EKG was performed and looked unremarkable per Dr. Guajardo, 1st trop was drawn and sent to lab. Continue to monitor for more chest pressure or other discomfort. Pt had an uneventful night and was able to sleep during shift after the episode of chest pressure and treatment. Continue to monitor for CP and discomfort. * Brandon Crowley MD - 03/04/2023 2:02 PM EDT Images from the original note were not included. Inpatient Cardiology Progress Note Patient info: Name: Lindsey Deleon : 1950 PCP: Vanita Churchill APRN PCP phone number: [phone] Date of Admission: 03/01/2023 ( Hospital Day 3 days ) Attending:Brandon Crowley MD ID: Lindsey Deleon is a 72 y.o. female w/ PMH of , hypertension, hyperlipidemia, COPD/emphysema, hypothyroidism, GERD, PAD with h/o L iliofemoral endarterectomy, B TRE stent placement (2016) and R CEA for asymptomatic stenosis (May 2019) on Hospital Day3 for expedited TAVR. 24 Hour Events/Subjective: - NAEON - Patient feeling well, No acute concerns Objective: Vitals Last value Range last 24 hrs Temperature Temp: 36.6 ??C (97.9 ??F) Temp: [36.4 ??C (97.5 ??F)-36.7 ??C (98.1 ??F)] Heart Rate Heart Rate: 76 Heart Rate: [67-81] Blood Pressure BP: 160/70 BP: (99-160)/(50-88) Art Line BP BP (Arterial Line): -- MAP (NBP): [63 mmHg-93 mmHg] Respiratory Rate Resp: 18 Resp: [16-20] SpO2 SpO2: 97 % SpO2: [92 %-99 %] Oxygen Delivery Oxygen Therapy O2 Device: None (Room air) O2 Flow Rate (L/min): 2 L/min Reason for Oxygen: Subjective dyspnea with no hypoxia Intake/Output Summary (Last 24 hours) at 03/04/2023 1407 Last data filed at 03/04/2023 1200 Gross per 24 hour Intake 2105 ml Output 3150 ml Net -1045 ml Patient Vitals for the past 168 hrs: Weight 03/04/23 0635 77.4 kg (170 lb 10.2 oz) 03/03/23 0341 77.1 kg (169 lb 15.6 oz) 03/02/23 0600 78 kg (171 lb 15.3 oz) 03/01/23 1259 78 kg (171 lb 15.3 oz) Admit wt: 78 kg Physical Exam: Gen: in bed in NAD HEENT: anicteric, EOMI intact, CV: RRR, Grade II systolic murmur Resp: Inspiratory rales Abd: normal bowel sounds, soft, non-tender to palpation, no rebound or guarding Ext: no pedal edema Neuro: no focal deficits noted, CN II-XII grossly intact, moves all extremities spontaneously Psych: cooperative. Labs: Recent Labs 03/04/2351603/03/23 04003/02/23 04003/01/23 1648 WBC 7.5 8.9 8.8 7.4 HGB 12.1 12.0 11.0* 11.7 HCT 36.6 37.2 34.3* 36.2 PLATELET 254 258 250 276 MCV 98.7* 100.5* 101.5* 100.6* Recent Labs 03/04/23 0503/03/23 0407 03/02/23 04003/01/23 1648 NA 132* 138 138 140 CL 95* 103 104 103 CO2 27 22 26 26 K 3.9 4.3 4.3 4.3 MAGNESIUM 0.98 0.96 0.96 0.93 PHOS 4.6* 4.6* 3.9 4.1 CALCIUM 9.6 9.4 9.2 9.5 BUN 22* 18 15 14 CREATININE 1.21* 1.01 0.96 0.99 LFTs No results for input(s): PROT, ALBUMIN, AST, ALT, ALKPHOS, BILITOT, BILIDIR in the last 168 hours. Coags No results for input(s): INR, PT, PTT, FIBRINOGEN, DDIMER in the last 168 hours. Invalid input(s): THROMBIN TIME Cardiac Enzymes No results for input(s): CK, TROPONINT, PROBNP in the last 168 hours. Endocrine No results for input(s): TSH, CORTISOL in the last 7068 hours. Invalid input(s): [id number] No results for input(s): POCGLU in the last 168 hours. Heme No results for input(s): LDH, HAPTOGLOBIN, URICACID in the last 168 hours. ABG (Arterial Blood Gas) No results found for: PHART, PO2ART, CDB7JIQ, PQH3YWM Microbiology: Microbiology Results (Last 30 days) No results found for the last 720 hours. Imaging: No results found for this visit on 03/01/23. Medications Scheduled Meds: ??? mometasone 220 mcg Inhalation Nightly ??? amLODIPine 10 mg Oral Daily ??? losartan 25 mg Oral Daily ??? sodium chloride 0.9 % (flush) 5 mL Intravenous BID ??? enoxaparin 40 mg Subcutaneous Nightly ??? buPROPion SR 150 mg Oral Daily ??? citalopram 40 mg Oral Daily ??? hydroCHLOROthiazide 25 mg Oral Daily ??? levothyroxine 75 mcg Oral QAM ??? pantoprazole EC 40 mg Oral Daily ??? ziprasidone 20 mg Oral BID WC ??? aspirin EC 325 mg Oral Daily ??? ezetimibe 10 mg Oral QPM ??? rosuvastatin 20 mg Oral QPM Continuous Infusions: PRN Meds:.sodium chloride 0.9 % (flush), lidocaine, nitroGLYcerin, ipratropium- albuteroL, iohexoL Assessment & Plan: Lindsey Deleon is a 72 y.o. female w/ PMHx of , hypertension, hyperlipidemia, COPD/emphysema,hypothyroidism, GERD, PAD with h/o L iliofemoral endarterectomy, B TRE stent placement (2016) and RCEA for asymptomatic stenosis (May 2019) who was admitted to the cardiology service for symptomatic moderate to severe aortic stenosis. Structural team planning for TAVR on 03/07. Patient doing well on revised BP regimen. ?? 03/04: Structural planning for TAVR Monday (03/07) ?? Cardiac Meds: Amlodipine 10mg, ASA 325mg (per optho), Zetia 10mg, Rosuvastatin 20mg, HCTZ 25mg, Losartan 25mg ?? #Mod-Severe Aortic Stenosis (NYHA III CCS 0) - Structural team following, tentative plan for TAVR on Monday - TTE obtained - Tele ?? #Chronic HTN #HLD - Continue Losartan 25mg daily - Continue Amlodipine to 10mg daily - Continue home ASA 325mg daily - Continue home Zetia 10mg daily - Continue home Rosuvastatin daily - Continue home HCTZ 25mg daily ?? #COPD - Duonebs q4h PRN ?? #GERD - Continue Pantoprazole 40mg daily ?? #Anxiety - Continue home Ziprasidone 20mg BIDAC - Continue home Citalopram 40mg daily - Continue home Bupropion 150mg daily ?? #Hypothyroidism - Continue home Levothyroxine 75mcg daily #Routine Diet: Daily Healthy Menu Choices/Cardiac diet ([facility] [place]-Diet) NPO diet (Give Meds) DVT Prophylaxis: LMWH GI Prophylaxis: Pantoprazole Code Status: Attempt Cardiopulmonary Resuscitation - Inpatient Dispo: Pending clinical course Mega Gant MD Internal Medicine, PGY-1 Cardiology, M1-S1 (#3011) 03/04/23 2:07 PM Cardiology Staff Addendum ?? Lindsey Deleon is a 72 y.o. female whom I saw today with Dr. Gant. ??I have personally interviewed and examined the patient and reviewed appropriate data, including labs, ECGs, and other diagnostic studies. I agree with the principal findings documented above, with additions and exceptions as below. ??The assessment and plan were formulated in discussion with me. ?? Patient referred for inpatient TAVR for symptomatic aortic stenosis. Plan per structural IC is TAVRon Wednesday 03/07. Patient is hemodynamically stable, without complaints, and on reasonable medical therapies. Mild LOIS today with adequate PO intake and urine output. Will trend. ?? Brandon Crowley MD, MALIK, FACC, FACP, FASE Cardiovascular Medicine * Marlon Hanna RN - 03/04/2023 7:11 AM EDT Pt was desating to the 80's and sustaining this morning with not signs or c/o sob. 2L NC applied and pt was to remain @ >90% while on 2L NC. Continue to monitor O2 saturation and work of breathing. * Brandon Crowley MD - 03/03/2023 7:02 AM EDT Images from the original note were not included. Inpatient Cardiology Progress Note Patient info: Name: Lindsey Deleon : 1950 PCP: Vanita Churchill APRN PCP phone number: [phone] Date of Admission: 03/01/2023 ( Hospital Day 2 days ) Attending:Chong Campbell MD ID: Lindsey Deleon is a 72 y.o. female w/ PMH of , hypertension, hyperlipidemia, COPD/emphysema, hypothyroidism, GERD, PAD with h/o L iliofemoral endarterectomy, B TRE stent placement (2016) and R CEA for asymptomatic stenosis (May 2019) on Hospital Day2 for expedited TAVR. 24 Hour Events/Subjective: - NAEON - Patient feeling well, No acute concerns Objective: Vitals Last value Range last 24 hrs Temperature Temp: 36.6 ??C (97.9 ??F) Temp: [36.4 ??C (97.5 ??F)-36.8 ??C (98.2 ??F)] Heart Rate Heart Rate: 77 Heart Rate: [68-83] Blood Pressure BP: 145/54 BP: (116-163)/(41-79) Art Line BP BP (Arterial Line): -- MAP (NBP): [59 mmHg-99 mmHg] Respiratory Rate Resp: 18 Resp: [16-20] SpO2 SpO2: 95 % SpO2: [93 %-97 %] Oxygen Delivery Oxygen Therapy O2 Device: None (Room air) O2 Flow Rate (L/min): 2 L/min Reason for Oxygen: Patient currently on room air Intake/Output Summary (Last 24 hours) at 03/03/2023 0831 Last data filed at 03/03/2023 0500 Gross per 24 hour Intake 1935 ml Output 2625 ml Net -690 ml Patient Vitals for the past 168 hrs: Weight 03/03/23 0341 77.1 kg (169 lb 15.6 oz) 03/02/23 0600 78 kg (171 lb 15.3 oz) 03/01/23 1259 78 kg (171 lb 15.3 oz) Admit wt: 78 kg Physical Exam: Gen: in bed in NAD HEENT: anicteric, EOMI intact, CV: RRR, Grade II systolic murmur Resp: Inspiratory rales Abd: normal bowel sounds, soft, non-tender to palpation, no rebound or guarding Ext: no pedal edema Neuro: no focal deficits noted, CN II-XII grossly intact, moves all extremities spontaneously Psych: cooperative. Labs: Recent Labs 03/03/23 04003/02/23 04003/01/23 1648 WBC 8.9 8.8 7.4 HGB 12.0 11.0* 11.7 HCT 37.2 34.3* 36.2 PLATELET 258 250 276 MCV 100.5* 101.5* 100.6* Recent Labs 03/03/23 04003/02/23 04003/01/23 1648 NA 138 138 140 CL 103 104 103 CO2 22 26 26 K 4.3 4.3 4.3 MAGNESIUM 0.96 0.96 0.93 PHOS 4.6* 3.9 4.1 CALCIUM 9.4 9.2 9.5 BUN 18 15 14 CREATININE 1.01 0.96 0.99 LFTs No results for input(s): PROT, ALBUMIN, AST, ALT, ALKPHOS, BILITOT, BILIDIR in the last 168 hours. Coags No results for input(s): INR, PT, PTT, FIBRINOGEN, DDIMER in the last 168 hours. Invalid input(s): THROMBIN TIME Cardiac Enzymes No results for input(s): CK, TROPONINT, PROBNP in the last 168 hours. Endocrine No results for input(s): TSH, CORTISOL in the last 7068 hours. Invalid input(s): [id number] No results for input(s): POCGLU in the last 168 hours. Heme No results for input(s): LDH, HAPTOGLOBIN, URICACID in the last 168 hours. ABG (Arterial Blood Gas) No results found for: PHART, PO2ART, FGO3PSW, PZG1LRI Microbiology: Microbiology Results (Last 30 days) No results found for the last 720 hours. Imaging: No results found for this visit on 03/01/23. Medications Scheduled Meds: ??? amLODIPine 10 mg Oral Daily ??? losartan 25 mg Oral Daily ??? sodium chloride 0.9 % (flush) 5 mL Intravenous BID ??? enoxaparin 40 mg Subcutaneous Nightly ??? buPROPion SR 150 mg Oral Daily ??? citalopram 40 mg Oral Daily ??? hydroCHLOROthiazide 25 mg Oral Daily ??? levothyroxine 75 mcg Oral QAM ??? pantoprazole EC 40 mg Oral Daily ??? ziprasidone 20 mg Oral BID WC ??? aspirin EC 325 mg Oral Daily ??? ezetimibe 10 mg Oral QPM ??? rosuvastatin 20 mg Oral QPM Continuous Infusions: PRN Meds:.sodium chloride 0.9 % (flush), lidocaine, nitroGLYcerin, ipratropium- albuteroL, iohexoL Assessment & Plan: Lindsey Deleon is a 72 y.o. female w/ PMHx of , hypertension, hyperlipidemia, COPD/emphysema,hypothyroidism, GERD, PAD with h/o L iliofemoral endarterectomy, B TRE stent placement (2016) and RCEA for asymptomatic stenosis (May 2019) who was admitted to the cardiology service for symptomatic severe aortic stenosis. She is HDS with improved blood pressure after titration of BP regimen. Structural team planning for TAVR on 03/07. ?? 03/03: Structural planning for TAVR Monday (03/07) ?? Cardiac Meds: Amlodipine 10mg, ASA 325mg (per optho), Zetia 10mg, Rosuvastatin 20mg, HCTZ 25mg ?? #Mod-Severe Aortic Stenosis (NYHA III CCS 0) - Structural team following, tentative plan for TAVR on Monday - TTE obtained - Tele ?? #Chronic HTN #HLD - Continue Losartan 25mg daily - Continue Amlodipine to 10mg daily - Continue home ASA 325mg daily - Continue home Zetia 10mg daily - Continue home Rosuvastatin daily - Continue home HCTZ 25mg daily ?? #COPD - Duonebs q4h PRN ?? #GERD - Continue Pantoprazole 40mg daily ?? #Anxiety - Continue home Ziprasidone 20mg BIDAC - Continue home Citalopram 40mg daily - Continue home Bupropion 150mg daily ?? #Hypothyroidism - Continue home Levothyroxine 75mcg daily #Routine Diet: Daily Healthy Menu Choices/Cardiac diet ([facility] [place]-Diet) DVT Prophylaxis: LMWH GI Prophylaxis: Pantoprazole Code Status: Attempt Cardiopulmonary Resuscitation - Inpatient Dispo: Pending clinical course Mega Gant MD Internal Medicine, PGY-1 Cardiology, M1-S1 (#3011) 03/03/23 8:31 AM Cardiology Staff Addendum Lindsey Deleon is a 72 y.o. female whom I saw today with Dr. Gant. I have personally interviewed and examined the patient and reviewed appropriate data, including labs, ECGs, and other diagnostic studies. I agree with the principal findings documented above, with additions and exceptions as below. The assessment and plan were formulated in discussion with me. Patient referred for inpatient TAVR for symptomatic aortic stenosis. Plan per structural IC is TAVRon Wednesday 03/07. Patient is hemodynamically stable, without complaints, and on reasonable medical therapies. Brandon Crowley MD, MALIK, FACC, FACP, FASE Cardiovascular Medicine * Edwige Nieves APRN - 03/02/2023 3:19 PM EDT Images from the original note were not included. Structural Heart Progress Note Patient info: Name: Lindsey Deleon : 1950 Date of Admission: 03/01/2023 ( Hospital Day 1 day ) Attending:Chong Campbell MD ID: Lindsey Deleon is a 72 y.o. female w/ PMH of severe , hypertension, hyperlipidemia, COPD/emphysema, hypothyroid, PAD with h/o L iliofemoral endarterectomy, B TRE stent placement (8x38mm BE)for short distance claudication in 2017 and more recently R CEA for asymptomatic stenosis in May 2019 who is admitted to the general cardiology service due to accelerating symptoms of severe aortic stenosis. 24 Hour Events/Subjective: - Admitted from clinic due to accelerating symptoms, reports she became short of breath walking from inpatient bed to the bathroom - No acute overnight events - Euvolemic, no need for active diuresis overnight - Hypertensive with BP: (157-174)/(63-79) - Echo updated with EF 70%, AUREA 0.8 MG 29 Objective Vasoactive & Sedating Medications: Infusions: Continuous Infusions: Ventilator Settings: Mode: , SET RR: TV: PEEP: FiO2: VARIABLES PATIENT RR: PIP: Pplateau: SpO2: OUTPUT Resp: 18 SpO2: 93 % ABG (Arterial Blood Gas) No results for input(s): PHART, ILJ2IOH, PO2ART, OGW2FJB, LACTATEVEN, IGB8AMH, PFRATIOART2 in the last 168 hours. VBG (Venous Blood Gas) No results for input(s): PHVEN, QEC4VRY, PO2VEN, NFC6GWQ, LACTATEVEN in the last 168 hours. Mixed Venous Sat No results for input(s): I5OFJT2 in the last 168 hours. Vitals Last value Range last 24 hrs Temperature Temp: 36.7 ??C (98.1 ??F) Temp: [36.5 ??C (97.7 ??F)-36.8 ??C (98.2 ??F)] Heart Rate Heart Rate: 73 Heart Rate: [69-83] Blood Pressure BP: 163/70 BP: (147-176)/(62-79) Art Line BP BP (Arterial Line): -- MAP (NBP): [84 mmHg-130 mmHg] Respiratory Rate Resp: 18 Resp: [16-20] SpO2 SpO2: 93 % SpO2: [93 %-98 %] Oxygen Delivery Oxygen Therapy O2 Device: None (Room air) O2 Flow Rate (L/min): 2 L/min Reason for Oxygen: Patient currently on room air (Uses oxygen with activity.) Intake/Output Summary (Last 24 hours) at 03/02/2023 1519 Last data filed at 03/02/2023 1400 Gross per 24 hour Intake 3325 ml Output 4025 ml Net -700 ml Patient Vitals for the past 168 hrs: Weight 03/02/23 0600 78 kg (171 lb 15.3 oz) 03/01/23 1259 78 kg (171 lb 15.3 oz) Physical Exam: General: Pleasant female, no acute distress HEENT: Normocephalic, atraumatic, benign NECK: Supple, no masses, FROM CV: Normal rate, regular rhythm, II/ JERZY RESP: Diminished GI: Soft, nd, nttp EXT: Minimal pretibial edema NEURO: No gross focal deficits PSYC: Appropriate mood and affect, alert and oriented DERM: No rash, wwp Lines/Drains/Airways Lines: Peripheral IV Line - Single Lumen 03/01/23 1407 cephalic vein (lateral side of arm), right 20 gauge;1.75 in length (Active) Indication/Daily Review of Necessity medication therapy intermittent 03/02/23 09 Site Preparation/Maintenance dressing: dry and intact 03/01/23 1600 Securement catheter stabilization device, secured with 03/02/23 09 Patency/Maintenance flushed without difficulty 03/02/23 0900 Phlebitis 0-->no symptoms 03/02/23 1335 Infiltration 0-->no symptoms 03/02/23 1335 Site Signs/Symptoms no redness;no swelling;no warmth;no pain;no palpable cord;no streak formation;no drainage 03/01/23 1400 Labs: Recent Labs 03/02/23 0409 03/01/23 1648 WBC 8.8 7.4 HGB 11.0* 11.7 HCT 34.3* 36.2 PLATELET 250 276 MCV 101.5* 100.6* Recent Labs 03/02/23 0409 03/01/23 1648 NA 138 140 CL 104 103 CO2 26 26 K 4.3 4.3 MAGNESIUM 0.96 0.93 PHOS 3.9 4.1 CALCIUM 9.2 9.5 BUN 15 14 CREATININE 0.96 0.99 No results for input(s): PROT, ALBUMIN, AST, ALT, ALKPHOS, BILITOT, BILIDIR in the last 168 hours. No results for input(s): INR, PT, PTT, FIBRINOGEN, DDIMER in the last 168 hours. Invalid input(s): THROMBIN TIME No results for input(s): CK, TROPONINT, PROBNP in the last 168 hours. No results for input(s): TSH, CORTISOL in the last 7068 hours. Invalid input(s): [id number] No results for input(s): POCGLU in the last 168 hours. No results for input(s): LDH, HAPTOGLOBIN, URICACID in the last 168 hours. ABG (Arterial Blood Gas) No results for input(s): PHART, TUW3YTX, PO2ART, XRU4BJP, LACTATEVEN, QVM2EHF, PFRATIOART2 in the last 168 hours. VBG (Venous Blood Gas) No results for input(s): PHVEN, LHP0CDA, PO2VEN, ZCB9FOU, LACTATEVEN in the last 168 hours. Mixed Venous Sat No results for input(s): W5CDIV7 in the last 168 hours. Diagnostics: Echocardiogram 03/01/23 Left ventricle is of normal size. Wall thickness is mildly increased. Left ventricular systolic function is normal. The left ventricular ejection fraction is 70% by Bailey's biplane. There are no segmental wall motion abnormalities. The right ventricle is of normal size. Right ventricular systolic function is normal. There is moderate to severe aortic stenosis. The mean gradient across the aortic valve is 29. The aortic valve area calculated using the continuity equation is 0.84 cm2. The mitral valve leaflets are thickened. There is heavy posterior mitral annular calcification. The estimated mean gradient across the mitral valve is 5 mmHg. There is mild to moderate mitral regurgitation. Cardiac Catheterization 01/31/23 Coronary Angiography: Dominance: Right Left Main There was mild diffuse (<=25% stenosis) disease of the entire vessel segment of the left main artery. Left Anterior Descending There was mild diffuse (<=25% stenosis) disease of the entire vessel segment of the left anterior descending artery (LAD). Left Circumflex There was mild diffuse (<=25% stenosis) disease of the entire vessel segment of the left circumflex artery (LCX). Right Coronary Artery There was mild diffuse (<=25% stenosis) disease of the entire vessel segment of the right coronary artery (RCA). Medications Scheduled Meds: ??? [START ON 03/03/2023] amLODIPine 10 mg Oral Daily ??? losartan 25 mg Oral Daily ??? sodium chloride 0.9 % (flush) 5 mL Intravenous BID ??? enoxaparin 40 mg Subcutaneous Nightly ??? buPROPion SR 150 mg Oral Daily ??? citalopram 40 mg Oral Daily ??? hydroCHLOROthiazide 25 mg Oral Daily ??? levothyroxine 75 mcg Oral QAM ??? pantoprazole EC 40 mg Oral Daily ??? ziprasidone 20 mg Oral BID WC ??? aspirin EC 325 mg Oral Daily ??? ezetimibe 10 mg Oral QPM ??? rosuvastatin 20 mg Oral QPM Continuous Infusions: PRN Meds:.sodium chloride 0.9 % (flush), lidocaine, nitroGLYcerin, ipratropium- albuteroL, iohexoL Assessment & Plan: Assessment 1. Severe with accelerating symptoms 2. Former smoker, COPD/emphysema 3. PAD s/p RCEA and bilateral iliac stent placement 4. HTN Plan Lindsey Deleon is a 72 y.o. female w/ PMH of severe , hypertension, hyperlipidemia, COPD/emphysema, hypothyroid, PAD with h/o L iliofemoral endarterectomy, B TRE stent placement (8x38mm BE) forshort distance claudication in 2016 and more recently R CEA for asymptomatic stenosis in May 2019 who is admitted to the general cardiology service due to accelerating symptoms of severe aortic stenosis. Given her history of PAD she will require alternate approach, previously considered for transcaval though on further review of imaging, may attempt left TF with ability to convert to transcaval if needed. In the interim, appreciate optimization of her BP by the primary team. Anticipate procedure date of March 07. Please see addendum by Dr. Torres for final plan and recommendations. Edwige Nieves APRN Structural Heart Pager [phone] 03/02/2023 * Chong Campbell MD - 03/02/2023 6:50 AM EDT Images from the original note were not included. Inpatient Cardiology Progress Note Patient info: Name: Lindsey Deleon : 1950 PCP: Vanita Churchill APRN PCP phone number: [phone] Date of Admission: 03/01/2023 ( Hospital Day 1 day ) Attending:Chong Campbell MD ID: Lindsey Deleon is a 72 y.o. female w/ PMH of , hypertension, hyperlipidemia, COPD/emphysema, hypothyroidism, GERD, PAD with h/o L iliofemoral endarterectomy, B TRE stent placement (2016) and R CEA for asymptomatic stenosis (May 2019) on Hospital Day1 for expedited TAVR. 24 Hour Events/Subjective: -Admitted - NAEON - No acute concerns Objective: Vitals Last value Range last 24 hrs Temperature Temp: 36.6 ??C (97.9 ??F) Temp: [36.4 ??C (97.5 ??F)-36.8 ??C (98.2 ??F)] Heart Rate Heart Rate: 79 Heart Rate: [69-83] Blood Pressure BP: 161/79 BP: (147-176)/(62-82) Art Line BP BP (Arterial Line): -- MAP (NBP): [93 mmHg-130 mmHg] Respiratory Rate Resp: 16 Resp: [16-22] SpO2 SpO2: 96 % SpO2: [93 %-98 %] Oxygen Delivery Oxygen Therapy O2 Device: None (Room air) O2 Flow Rate (L/min): 2 L/min Reason for Oxygen: Chronic respiratory failure (O2 continued from home) Intake/Output Summary (Last 24 hours) at 03/02/2023 1012 Last data filed at 03/02/2023 0800 Gross per 24 hour Intake 1830 ml Output 2725 ml Net -895 ml Patient Vitals for the past 168 hrs: Weight 03/02/23 0600 78 kg (171 lb 15.3 oz) 03/01/23 1259 78 kg (171 lb 15.3 oz) Admit wt: 78 kg Physical Exam: Gen: in bed in NAD HEENT: anicteric, EOMI intact, CV: RRR, Grade II systolic murmur Resp: Inspiratory rales Abd: normal bowel sounds, soft, non-tender to palpation, no rebound or guarding Ext: no pedal edema Neuro: no focal deficits noted, CN II-XII grossly intact, moves all extremities spontaneously Psych: cooperative. Labs: Recent Labs 03/02/23 0409 03/01/23 1648 WBC 8.8 7.4 HGB 11.0* 11.7 HCT 34.3* 36.2 PLATELET 250 276 MCV 101.5* 100.6* Recent Labs 03/02/23 0409 03/01/23 1648 NA 138 140 CL 104 103 CO2 26 26 K 4.3 4.3 MAGNESIUM 0.96 0.93 PHOS 3.9 4.1 CALCIUM 9.2 9.5 BUN 15 14 CREATININE 0.96 0.99 LFTs No results for input(s): PROT, ALBUMIN, AST, ALT, ALKPHOS, BILITOT, BILIDIR in the last 168 hours. Coags No results for input(s): INR, PT, PTT, FIBRINOGEN, DDIMER in the last 168 hours. Invalid input(s): THROMBIN TIME Cardiac Enzymes No results for input(s): CK, TROPONINT, PROBNP in the last 168 hours. Endocrine No results for input(s): TSH, CORTISOL in the last 7068 hours. Invalid input(s): [id number] No results for input(s): POCGLU in the last 168 hours. Heme No results for input(s): LDH, HAPTOGLOBIN, URICACID in the last 168 hours. ABG (Arterial Blood Gas) No results found for: PHART, PO2ART, PYG1GXZ, URB5MVR Microbiology: Microbiology Results (Last 30 days) No results found for the last 720 hours. Imaging: No results found for this visit on 03/01/23. Medications Scheduled Meds: ??? [START ON 03/03/2023] amLODIPine 10 mg Oral Daily ??? amLODIPine 5 mg Oral Once ??? sodium chloride 0.9 % (flush) 5 mL Intravenous BID ??? enoxaparin 40 mg Subcutaneous Nightly ??? buPROPion SR 150 mg Oral Daily ??? citalopram 40 mg Oral Daily ??? hydroCHLOROthiazide 25 mg Oral Daily ??? levothyroxine 75 mcg Oral QAM ??? pantoprazole EC 40 mg Oral Daily ??? ziprasidone 20 mg Oral BID WC ??? aspirin EC 325 mg Oral Daily ??? ezetimibe 10 mg Oral QPM ??? rosuvastatin 20 mg Oral QPM Continuous Infusions: PRN Meds:.sodium chloride 0.9 % (flush), lidocaine, nitroGLYcerin, ipratropium- albuteroL, iohexoL Assessment & Plan: Lindsey Deleon is a 72 y.o. female w/ PMHx of , hypertension, hyperlipidemia, COPD/emphysema,hypothyroidism, GERD, PAD with h/o L iliofemoral endarterectomy, B TRE stent placement (2016) and RCEA for asymptomatic stenosis (May 2019) on HD# 0 who was admitted to the cardiology service for symptomatic severe aortic stenosis. She is hypertensive but otherwise HDS. Structural team planning for TAVR on 03/07. ?? 03/02: Structural planning for TAVR Monday (03/07), increase amlodipine to 10mg and adding losartan 25mg ?? Cardiac Meds: Amlodipine 10mg, ASA 325mg (per optho), Zetia 10mg, Rosuvastatin 20mg, HCTZ 25mg ?? #Mod-Severe Aortic Stenosis (NYHA III CCS 0) - Structural team following, tentative plan for TAVR on Monday - Obtain TTE - Tele ?? #Chronic HTN #HLD - Start Losartan 25mg daily - Increase Amlodipine to 10mg daily - Continue home ASA 325mg daily - Continue home Zetia 10mg daily - Continue home Rosuvastatin daily - Continue home HCTZ 25mg daily ?? #COPD - Duonebs q4h PRN ?? #GERD - Continue Pantoprazole 40mg daily ?? #Anxiety - Continue home Ziprasidone 20mg BIDAC - Continue home Citalopram 40mg daily - Continue home Bupropion 150mg daily ?? #Hypothyroidism - Continue home Levothyroxine 75mcg daily #Routine Diet: Daily Healthy Menu Choices/Cardiac diet ([facility] [place]-Diet) DVT Prophylaxis: LMWH GI Prophylaxis: Pantoprazole Code Status: Attempt Cardiopulmonary Resuscitation - Inpatient Dispo: Pending clinical course Mega Gant MD Internal Medicine, PGY-1 Cardiology, M1-S1 (#3011) 03/02/23 10:12 AM documented in this encounter H&P Notes * Chong Campbell MD - 03/01/2023 11:52 AM EDT Images from the original note were not included. Cardiology H&P Patient info: Name: Lindsey Deleon : 1950 PCP: Vanita Churchill APRN PCP phone number: [phone] Date of Admission: 03/01/2023 ( Hospital Day 0 days ) Attending:Chong Campbell MD ID: Lindsey Deleon is a 72 y.o. female w/ PMHx of , hypertension, hyperlipidemia, COPD/emphysema, hypothyroidism, GERD, PAD with h/o L iliofemoral endarterectomy, B TRE stent placement (2016) and R CEA for asymptomatic stenosis (May 2019) HPI: Lindsey Deleon is a 72 year old woman that is being admitted from the structural heart clinic foraortic stenosis and expedited TAVR workup. She was initially seen in the structural heart clinic for dyspnea on 01/20/2023. Per clinic note: From Clinic Note 01/20/2023: She reports over [...] extremity swelling, orthopnea, PND or weight gain. She recently endorses increased dyspnea and told us that her O2 sats were dropping into the 70s. She denies any episodes of fainting, feeling light headed, or chest pain; although she does endorse chest pressure that is sometimes brought on by exertion and relieved by rest. Echo 12/12/2022: EF 56%; AUREA 1.0; Gr 47/30; Trace AR/TR; Moderate MR Review of Systems (positives in bold) General: chills, fatigue, fever or night sweats Eye: blurry vision, double vision, loss of vision or photophobia HENT: headaches, sore throat or vertigo Heme/Lymph: Bleeding/bruising, blood clots, jaundice, pallor or swollen lymph nodes Resp: cough, hemoptysis, orthopnea, shortness of breath or wheezing Cardio: chest pressure, dyspnea on exertion, edema, loss of consciousness, palpitations, paroxysmalnocturnal dyspnea or shortness of breath Gastro: abdominal pain, blood in stools, constipation, diarrhea, heartburn, hematemesis, melena or nausea/vomiting : dysuria, hematuria or urinary frequency/urgency MSK: joint pain, joint stiffness, joint swelling, muscle pain or muscular weakness Neuro:dizziness, gait disturbance, impaired coordination/balance, memory loss, numbness/tingling, seizures, speech problems, tremors or visual changes Derm: lumps or rash PMH Past Medical History: Diagnosis Date ??? Anemia iron ??? Asthma 02/06/2017 ??? Bowel disease has IBS-ok now ??? Claudication had surgery for in 2017 ??? COPD (chronic obstructive pulmonary disease) Emphysema, scheduled and prn inhalers, has not used prn inhaler in months. Able to climb one flightof starirs without SOB. No home O2. ??? CPAP (continuous positive airway pressure) dependence biPAP ??? GERD (gastroesophageal reflux disease) food regurgitation, burning, not well controlled ??? Heart valve disease heart murmur ??? Hypertension well controlled on medication ??? Hypothyroid ??? Mental health problem depression & anxiety-meds help ??? Obstructive sleep apnea ??? Transfusion history years ago PSH Past Surgical History: Procedure Laterality Date ??? CHOLECYSTECTOMY ? ? PRG CATH [facility] CORONARY ART W/INJ FOR ANGIO W/R HEART CATH IMG S&I N/A 01/31/2023 CORONARY ANGIOGRAPHY; W RHC (WRVU 5.9) performed by Mike Torres MD at [facility] CATH LABS ??? PRG X-RAY AORTA LEG ARTERIES N/A 08/15/2017 AORTOGRAPHY, ABD. + AYAAN. ILIOFEMORAL LE BY SERIALOGRAPHY S & I (WRVU 1.79) performed by Jake Montaño MD at [facility] MAIN OR ??? PRO COLONOSCOPY, DIAGNOSTIC 12/06/2012 COLONOSCOPY, DIAGNOSTIC performed by Mik Dumont MD at [facility] ENDOSCOPY ??? PRO LAPAROSCOPY REPAIR PARAESOPHAGEAL HERNIA INCL FUNDOPLASTY W/O MESH 02/18/2013 LAPAROSCOPIC PARAESOPHAGEAL HERNIA REPAIR W/FUNDOPLASTY, W/O MESH performed by Moncho Bowers MD at [facility] MAIN OR ??? PRO PLACE CATH FIRST ORDER ART, ABD/PELV 08/15/2017 CATHETER PLACEMENT, SELECTIVE FIRST ORDER IN ARTERIAL SYSTEM, EACH FIRST ORDER ABDOMINAL, PELVIC, OR LOWER EXTREMITY ARTERY BRANCH,WITHIN A VASCULAR FAMILY (WRVU 4.9) performed by Jake Montaño MD at [facility] MAIN OR ? ? PRO REVSC OPEN/PERCUTANEOUS ILIAC ART W STNT PLMT&ANGIO PATRICE VSL UNILAT Bilateral 08/15/2017 REVSC OPN\PRQ ILIAC ART W\STNT PLMT & ANGIOP SAME VSL (WRVU 10) performed by Jake Montaño MD at [facility] MAIN OR ??? PRO THROMBOENDARTECTMY ILIOFEMORAL Left 08/15/2017 @ENDARTERECTOMY, ILIOFEMORAL W OR W/O PATCH GRAFT (WRVU 19.86) performed by Jake Montaño MD at [facility] MAIN OR ??? PRO THROMBOENDARTECTMY NECK, NECK INCIS Right 06/10/2019 @ENDARTERECTOMY, CAROTID, VERTEBRAL,SUBCLAVIAN W\WO PATCH GRAFT (WRVU 21.16) performed by Jake Montaño MD at [facility] MAIN OR ??? PRO UPPER GI ENDOSCOPY, BIOPSY 12/06/2012 EGD WITH BIOPSY performed by Mik Dumont MD at [facility] ENDOSCOPY ??? TUBAL LIGATION Family History History reviewed. No pertinent family history. Social History Social History Socioeconomic History ??? Marital status: Spouse name: Not on file ??? Number of children: Not on file ??? Years of education: Not on file ??? Highest education level: Not on file Occupational History ??? Not on file Tobacco Use ??? Smoking status: Former Packs/day: 2.00 Years: 30.00 Pack years: 60.00 Types: Cigarettes Quit date: 10/21/2004 Years since quittin.3 ??? Smokeless tobacco: Never Vaping Use ??? Vaping Use: Never used Substance and Sexual Activity ??? Alcohol use: Yes Types: 1 Glasses of wine, 1 Cans of beer per week ??? Drug use: Never ??? Sexual activity: Not on file Other Topics Concern ??? Not on file Social History Narrative ??? Not on file Social Determinants of Health Financial Resource Strain: Not on file Food Insecurity: Not on file Transportation Needs: Not on file Physical Activity: Not on file Housing Stability: Not on file Allergies: Allergies Allergen Reactions ??? Latex Itching and Rash ??? Kaopectate [Bismuth Subsalicylate] Other (See Comments) Rectal Bleeding ??? Lisinopril Other (See Comments) coughing ??? Mineral Oil ??? Hemorrhoid Cream [Tissue Resp Fact-Shark Fadumo Oil] Other (See Comments) Bleeding Meds ??? sodium chloride 0.9 % (flush) 5 mL Intravenous BID ??? enoxaparin 40 mg Subcutaneous Nightly ??? [START ON 03/02/2023] amLODIPine 5 mg Oral Daily ??? [START ON 03/02/2023] aspirin 325 mg Oral Daily ??? [START ON 03/02/2023] buPROPion SR 150 mg Oral Daily ??? [START ON 03/02/2023] citalopram 40 mg Oral Daily ??? [START ON 03/02/2023] ezetimibe 10 mg Oral Daily ??? [START ON 03/02/2023] hydroCHLOROthiazide 25 mg Oral Daily ??? [START ON 03/02/2023] levothyroxine 75 mcg Oral QAM ??? [START ON 03/02/2023] pantoprazole EC 40 mg Oral Daily ??? [START ON 03/02/2023] rosuvastatin 20 mg Oral Daily ??? [START ON 03/02/2023] ziprasidone 20 mg Oral BID WC sodium chloride 0.9 % (flush), lidocaine, nitroGLYcerin, ipratropium-albuteroL, iohexoL Objective: Vitals Last value Range last 24 hrs Temperature Temp: 36.4 ??C (97.5 ??F) Temp: [36.4 ??C (97.5 ??F)] Heart Rate Heart Rate: 79 Heart Rate: [67-79] Blood Pressure BP: 169/82 BP: (148-169)/(71-82) Art Line BP BP (Arterial Line): -- MAP (NBP): [102 mmHg] Respiratory Rate Resp: 22 Resp: [22] SpO2 SpO2: 98 % SpO2: [98 %-99 %] Oxygen Delivery Oxygen Therapy O2 Device: None (Room air) Reason for Oxygen: Patient currently on room air No intake or output data in the 24 hours ending 03/01/23 1421 No data found. Admit wt: 78.5kg Physical Exam: Gen: in bed in NAD HEENT: anicteric, EOMI intact, CV: RRR, Grade II systolic murmur Resp: Inspiratory rales Abd: normal bowel sounds, soft, non-tender to palpation, no rebound or guarding Ext: no pedal edema Neuro: no focal deficits noted, CN II-XII grossly intact, moves all extremities spontaneously Psych: cooperative. Labs: No results for input(s): WBC, HGB, HCT, PLATELET, MCV in the last 168 hours. No results for input(s): NA, CL, CO2, K, MAGNESIUM, PHOS, CALCIUM, BUN, CREATININE in the last 168 hours. LFTs No results for input(s): PROT, ALBUMIN, AST, ALT, ALKPHOS, BILITOT, BILIDIR in the last 168 hours. Coags No results for input(s): INR, PT, PTT, FIBRINOGEN, DDIMER in the last 168 hours. Invalid input(s): THROMBIN TIME Cardiac Enzymes No results for input(s): CK, TROPONINT, PROBNP in the last 168 hours. Endocrine No results for input(s): TSH, CORTISOL in the last 7068 hours. Invalid input(s): [id number] No results for input(s): POCGLU in the last 168 hours. Heme No results for input(s): LDH, HAPTOGLOBIN, URICACID in the last 168 hours. ABG (Arterial Blood Gas) No results found for: PHART, PO2ART, GFB8TAW, BSJ8SLK Microbiology: Microbiology Results (Last 30 days) No results found for the last 720 hours. Imaging: No results found for this visit on 03/01/23. Medications Scheduled Meds: ??? sodium chloride 0.9 % (flush) 5 mL Intravenous BID ??? enoxaparin 40 mg Subcutaneous Nightly ??? [START ON 03/02/2023] amLODIPine 5 mg Oral Daily ??? [START ON 03/02/2023] aspirin 325 mg Oral Daily ??? [START ON 03/02/2023] buPROPion SR 150 mg Oral Daily ??? [START ON 03/02/2023] citalopram 40 mg Oral Daily ??? [START ON 03/02/2023] ezetimibe 10 mg Oral Daily ??? [START ON 03/02/2023] hydroCHLOROthiazide 25 mg Oral Daily ??? [START ON 03/02/2023] levothyroxine 75 mcg Oral QAM ??? [START ON 03/02/2023] pantoprazole EC 40 mg Oral Daily ??? [START ON 03/02/2023] rosuvastatin 20 mg Oral Daily ??? [START ON 03/02/2023] ziprasidone 20 mg Oral BID WC Continuous Infusions: PRN Meds:.sodium chloride 0.9 % (flush), lidocaine, nitroGLYcerin, ipratropium- albuteroL, iohexoL Assessment & Plan: Lindsey Deleon is a 72 y.o. female w/ PMH of , hypertension, hyperlipidemia, COPD/emphysema, hypothyroidism, GERD, PAD with h/o L iliofemoral endarterectomy, B TRE stent placement (2016) and R CEA for asymptomatic stenosis (May 2019) on HD# 0 who was admitted to the cardiology service for severe symptomatic aortic stenosis. Plan to discuss timing of procedure and any additional diagnosticswith structural team. 03/01: Admitted, discussing timing of TAVR with structural Cardiac Meds: Amlodipine 5mg, ASA 325mg (per optho), Zetia 10mg, Rosuvastatin 20mg, HCTZ 25mg #Mod-Severe Aortic Stenosis (NYHA III CCS 0) - Structural team following, tentative plan for TAVR this Monday - Obtain TTE - Tele #Chronic HTN #HLD - Continue home Amlodipine 5mg daily - Continue home ASA 325mg daily - Continue home Zetia 10mg daily - Continue home Rosuvastatin daily - Continue home HCTZ 25mg daily #COPD - Duonebs q4h PRN #GERD - Continue Pantoprazole 40mg daily #Anxiety - Continue home Ziprasidone 20mg BIDAC - Continue home Citalopram 40mg daily - Continue home Bupropion 150mg daily #Hypothyroidism - Continue home Levothyroxine 75mcg daily #Routine Diet: Daily Healthy Menu Choices/Cardiac diet ([facility] [place] [place]-Diet) DVT Prophylaxis: Lovenox GI Prophylaxis: Pantoprazole Code Status: Attempt Cardiopulmonary Resuscitation - Inpatient Dispo: Pending clinical course Mega Gant MD Internal Medicine, PGY-1 Cardiology, M1-S1, #3011 03/01/23 2:21 PM Cardiology Staff - Progress Note Addendum This patient was seen and examined on morning rounds. I agree with the findings and plan of care per Mega Gant MD (medical housestaff) which we discussed. Please refer to his note above for details. documented in this encounter Miscellaneous Notes * Op Note - Rahat Vargas MD - 03/08/2023 1:22 PM EDT [facility] Operative Note Patient Name: Lindsey Deleon : [id number] MR#: [id number] Case Date: 03/07/2023 Surgeon: Surgeon(s) and Role: * Mike Torres MD - Attending Co-Surgeon * Rahat Vargas MD - Attending Co-Surgeon * Alexander Gamez MD - Fellow * Anita Smith PA - Physician Towboat Operator ? Preoperative diagnosis: aortic stenosis, severe/TAVR ?? Postoperative diagnosis: Severe, calcific , aortic stenosis. Post implant TTE-> No AR, preservedLV function ?? Procedure(s) (LRB): CARDIAC CATHETERIZATION (N/A) COMBINED RIGHT & LEFT HEART CATH,INC INJ FOR L VENTRICULOGRAPHY (WRVU 5.99) (N/A) @TRANSCATHETER AORTIC VALVE REPLACEMENT (TAVR), PERCUTANEOUS FEMORAL (WRVU 22.47) TRANSESOPHAGEAL ECHO DURING CATH/EP PROCEDURE (N/A) ?? TF TAVR via LCFA with a 23 mm Lenard bovine pericardial bioprosthesis ?? Anesthesia: MAC /Salvador ?? Findings:Severe, calcific , aortic stenosis. Post implant TTE-> No AR, preserved LV function ? Estimated Blood Loss: 10 mL* No values recorded between 03/07/2023 1:57 PM and 03/07/2023 3:31 PM * ? Specimens removed during surgery: None Fluids: Intraprocedure Crystalloid Total None ?? PRBCs: none (See Anesthesia Record/Report for Other Blood Products) Urine Output: (no urine output recorded) ? Disposition: pathology lab technician recovery ?? Procedure Description: The patient was brought to the Physical Scientist and placed upon the Physical Scientist table in the supine position. Following administration of the sedation anesthetic the patient was prepped and draped using sterileprep. Left femoral and R radial arterial access was obtained utilizing Seldinger techniques. Angiography demonstrated positioning of the catheters above the femoral arterial bifurcation. Using similar techniques a 6 Irish sheath was placed into the right common femoral vein through which a transvenous pacemaker was directed under fluoroscopy into the right ventricle. Adequate pacing thresholds were confirmed. Through the right radial sheath aortic root angiography was performed after directinga pigtail catheter into the non-coronary cusp. Appropriate deployment angles were confirmed. The patient was systemically heparinized. The left common femoral sheath was upsized to a THV sheath for delivery of the prosthesis. The aortic valve was then crossed with a 6 Irish AL-1 catheter and straight wire which was then exchanged for 0.035 Amplatz extra-stiff guidewire which had an LV curve placed in it. The Lenard prosthesis was brought onto the field and delivered into the descending aorta through the E sheath under fluoroscopy. Nominal volumes were used to prep the valve. The valve was then re- mounted on the balloon under fluoroscopy and the commander delivery system was directed aroundthe thoracic aortic arch into the [place] calcified annulus under fluoroscopy. Root angiography under rapid pacing demonstrated appropriate deployment positioning. In the valve was deployed under a second interval of rapid ventricular pacing. Transthoracic echo was performed, the above findings werenoted. The delivery catheter was then removed. The delivery E sheath was withdrawn over a wire and the Perclose were fully deployed. Successful hemostasis was secured. Hemostasis was secured at the radial arterial site after removal of the sheath. The venous sheath was removed. The patient tolerated the procedure well and was taken to the Physical Scientist recovery room in hemodynamically stable condition. Attestation: Case Date: 03/07/2023 I was present and I participated during the entire procedure (does not need to include opening and closing). RAHAT VARGAS MD 03/15/2023 * Brief Op Note - Rahat Vargas MD - 03/08/2023 1:22 PM EDT Brief Operative Note Patient Name: Lindsey Deleon : [id number] MR#: [id number] Case Date: 03/07/2023 Surgeon: Surgeon(s) and Role: Panel 1: * Mike Torres MD - Attending Co-Surgeon * Rahat Vargas MD - Attending Co-Surgeon * Alexander Gamez MD - Fellow * Anita Smith PA - Physician Towboat Operator Preoperative diagnosis: aortic stenosis, severe/TAVR Postoperative diagnosis: Severe, calcific , aortic stenosis. Post implant TTE-> No AR, preservedLV function Procedure(s) (LRB): CARDIAC CATHETERIZATION (N/A) COMBINED RIGHT & LEFT HEART CATH,INC INJ FOR L VENTRICULOGRAPHY (WRVU 5.99) (N/A) @TRANSCATHETER AORTIC VALVE REPLACEMENT (TAVR), PERCUTANEOUS FEMORAL (WRVU 22.47) TRANSESOPHAGEAL ECHO DURING CATH/EP PROCEDURE (N/A) TF TAVR via LCFA with a 23 mm Lenard bovine pericardial bioprosthesis Anesthesia: MAC /Salvador Findings:Severe, calcific , aortic stenosis. Post implant TTE-> No AR, preserved LV function Estimated Blood Loss: 10 mL* No values recorded between 03/07/2023 1:57 PM and 03/07/2023 3:31 PM * Specimens removed during surgery: None Fluids: Intraprocedure Crystalloid Total None PRBCs: none (See Anesthesia Record/Report for Other Blood Products) Urine Output: (no urine output recorded) Disposition: pathology lab technician recovery Condition: doing well without problems Attestation: Case Date: 03/07/2023 I was present and I participated during the entire procedure (does not need to include opening and closing). RAHAT VARGAS MD 03/15/2023 * Plan of Care - Addison Farias, RN - 03/08/2023 12:20 PM EDT Patient discharged to [facility], vitals as charted. No complaints of dizziness, chest pain, or SOB. AVS reviewed with patient and all questions answered. Home in private vehicle with services. * Care Management Discharge - Mega Arciniega RN - 03/08/2023 10:31 AM EDT CARE MANAGEMENT FINAL DISCHARGE NOTE Chart reviewed, care reviewed with primary team and at interdisciplinary rounds. Patient is medically ready for discharge to home. Needs for Transition of Care: Plan for discharge is: Home w/ Services Outpatient Agency/Support Group Needs: Homecare agency Home Health Services: Home Health Aide, Occupational Therapy, Physical Therapy, Registered Nurse, Wound care Agency Referrals & Follow-up Care: Contact information for follow-up Home Health & Hospice, [address] [place] [place] [address] Transportation: family or friend will provide - granddaughter per patient Functional status prior to admission: Independent Home Environment: Others in the home: child(matthew), adult. Current Living Arrangements: home/apartment/condo. Accessibility Concerns:2 level home including basement, stays on main level, 2 GALINDO. Current Functional Ability: Independent, Assistive Equipment DME used at home: lift device, oxygen, grab bar - tub/shower, grab bar - toilet, respiratory supplies, tub bench, walker - standard DME Needed at Discharge: has at home Patient is insured through: Primary Insurance: [employer] [place] Payor: JOSÉ MIGUEL SUAREZ / Plan: JOSÉ MIGUEL SUAREZ / Product Type: *No Product type* / Secondary Insurance: N/A Prescription Coverage: Yes This plan was formulated with input from patient, and team. All are in agreement with plan. Mega Arciniega RN * Brief Op Note - Mike Torres MD - 03/07/2023 4:15 PM EDT Preliminary Cardiac Catheterization Procedure Note: Patient Name: Lindsey Deleon : [id number] MR#: [id number] Case Date: 03/07/2023 Accounting Teacher: Surgeon(s) and Role: Panel 1: * Mike Torres MD - Primary * Alexander Gamez MD - Fellow * Anita Smith PA - Physician Towboat Operator Panel 2: * Rahat Vargas MD - Primary Panel 3: * Amara Fields MD - Primary Preoperative diagnosis: aortic stenosis, severe/TAVR Postoperative diagnosis: * same * Procedure(s) performed: TAVR with 23 Ultra R via left TF with MAC Access: left TF--> valve---Perclosed Right radial--> pigtail--TR band Right femoral vein--> pacer-- manual A time-out was conducted prior to the start of the procedure to verify the correct patient and procedure, procedure location, and all relevant critical information. Preliminary findings: 1. Severe at baseline 2. Successful TAVR with 23mm Ultra R via left TF approach 3. Post echo shows no leak, hyperdynamic LV, no effusion 4. No changes from baseline RBBB and FAVB. The patient tolerated the procedures smoothly and was transferred from the cardiac catheterization lab to the next level of care in stable condition. No evident early complications. Full report to follow. Mike Torres MD * Care Management - Gloria Moe RN - 03/06/2023 12:25 PM EDT OFFICE OF CARE MANAGEMENT PROGRESS NOTE LOS: Hospital Day 5 days Chart reviewed, care reviewed with primary team and at interdisciplinary rounds. Patient continues to meet inpatient level of care related to: aortic stenosis. Per note by Dr. Gant on 03/06/2023: Assessment & Plan: Lindsey Deleon is a 72 y.o. female with PMHx as noted above admitted for symptomatic moderate to severe aortic stenosis. Structural team planning for TAVR on 03/07. LOIS improving but she is now endorsing new cough and is febrile to 100.4. Her lungs sound clear and CXR obtained did not show any acute pathology. Pending UA and blood cultures. ?? Decision Maker: Self Functional status prior to admission: Independent Home Environment: Others in the home: child(matthew), adult. Current Living Arrangements: home/apartment/condo. Accessibility Concerns: 2 level home including basement, stays on main level, 2 GALINDO. Current Functional Ability: Independent, Assistive Equipment DME used at home: lift device, oxygen, grab bar - tub/shower, grab bar - toilet, respiratory supplies, tub bench, walker - standard DME Needed at Discharge: No Patient is insured through: Primary Insurance: [employer] Payor: [employer] / Plan: [place] / Product Type: *No Product type* / Secondary Insurance: N/A Last Physical Therapy Recommendation: with Last Occupational Therapy Recommendation: with Plan for discharge is: Home w/ Services Outpatient Agency/Support Group Needs: Homecare agency Home Health Services: Home Health Aide, Occupational Therapy, Physical Therapy, Registered Nurse, Wound care Agency Referrals: Not Applicable - [facility] following patient. Transportation: family or friend will provide Barriers to discharge: Discharge planning Psych: Adjustment to diagnosis/illness Supports: Caregiver support, Home safety Plan going forward: Care Management will continue to follow and assist with discharge planning and coordination of care as indicated. Anticipated Date of Discharge: 03/09/2023 * Initial Assessments - Danilo Lobato RN - 03/02/2023 2:01 PM EDT Office of Care Management Initial Assessment Danilo Lobato RN reviewed record and discussed patient with Care Team. Source of Information: Team, bedside nurse, medical record, and Patient Introduced self/reviewed role; services accepted. Reason for Hospitalization: Chest pressure, SOB 72 y.o. female w/ PMHx of , hypertension, hyperlipidemia, COPD/emphysema, hypothyroidism, GERD, PAD with h/o L iliofemoral endarterectomy, B RTE stent placement (2016) and R CEA for asymptomatic stenosis now ??admitted from the structural heart clinic for aortic stenosis and expedited TAVR workup Covid Vaccination Status: 1st, 2nd & booster (Moderna x 2 & boosters x 3) Last COVID test: unknown Past medical History: Past Medical History: Diagnosis Date ??? Anemia iron ??? Asthma 02/06/2017 ??? Bowel disease has IBS-ok now ??? Claudication had surgery for in 2017 ??? COPD (chronic obstructive pulmonary disease) Emphysema, scheduled and prn inhalers, has not used prn inhaler in months. Able to climb one flightof starirs without SOB. No home O2. ??? CPAP (continuous positive airway pressure) dependence biPAP ??? GERD (gastroesophageal reflux disease) food regurgitation, burning, not well controlled ??? Heart valve disease heart murmur ??? Hypertension well controlled on medication ??? Hypothyroid ??? Mental health problem depression & anxiety-meds help ??? Obstructive sleep apnea ??? Transfusion history years ago Hospitalizations Within the Past 30 Days: no previous admission in last 30 days Current Decision-Making Capacity: Self Advance Care Planning: Attempt Cardiopulmonary Resuscitation - Inpatient Received -Advanced Directive: Yes, on file Who is your DPOA-HC?: Child (Sammi Karimi:daughter) Current Coping/Education/Information Needs: Patient reports understanding of hospital course Current Functional Ability: Independent Functional Status Prior to Admission: Independent Prior ADLs & IADLs: Assistance Needed with ADLs & IADLs Cooking / Eating: Family / Friends Provide Meals Cleaning: Family / Friends do Cleaning Laundry: Has Assistance Pet Care: Family / Friends Manage Driving: Family / Friends Provide Rides Groceries: Family / Friends Provide Groceries Bathing: Assists with Bathing Dressing: Assists with Dressing Home Environment: Others in the home: child(matthew), adult. Current Living Arrangements: home/apartment/condo. Accessibility Concerns:2 level home including basement, stays on main level, 2 GALINDO. Resource / Environmental Concerns: Resource/Environmental Concerns: none Current DME: lift device, oxygen, grab bar - tub/shower, grab bar - toilet, respiratory supplies, tub bench, walker - standard Home Address confirmed as: [address] [place] [id number] Social & Family Supports: All names listed below confirmed with patient as current and correct Extended Emergency Contact Information Primary Emergency Contact: Sammi Karimi Address: [address] [place], [place] [id number] [place] [address] Mobile Relation: Child Secondary Emergency Contact: Bam Trevizo, PERRY [facility] Mobile Relation: Child Current Care Provided by: self Provides Primary Care For: no one Caregiver if needed: child(matthew), adult Quality of Family relationships: supportive Community Resources being provided currently: none Behavioral Health History: yes, takes medications, not an issue at this time Substance Use/Abuse : Social History Tobacco Use Smoking Status Former ??? Packs/day: 2.00 ??? Years: 30.00 ??? Pack years: 60.00 ??? Types: Cigarettes ??? Quit date: 10/21/2004 ??? Years since quittin.3 Smokeless Tobacco Never In the past year have you used an illegal drug or used a prescription medication for non-medical reasons?: No 0 No problems reported 1-2 Low level 3-5 Moderate level 6-8 Substantial level 9- 10 Severe level In the past year have you had 4 or more drinks a day containing alcohol?: No 0 to 7 points: Low risk 8 to 15 points: Medium risk 16 to 19 points: High risk 20 to 40 points: Addiction likely Other Pertinent/Service Specific Information: referral in to home health Health/Prescription Coverage: Primary Insurance: JOSÉ MIGUEL SUAREZ Payor: JOSÉ MIGUEL SUAREZ / Plan: JOSÉ MIGUEL SUAREZ / Product Type: *No Product type* / Secondary Insurance: N/A ONLY if patient has Medicare A&B - Does this patient have secondary insurance?: Yes ; Prescription Coverage: Yes Preferred Pharmacy: [id number] [address] [facility] [address] [facility] - [address] [place] [id number] [facility] - [address] [address] [place] Status: Patient is a : No Primary Care Provider confirmed: Vanita Churchill, AGRICULTURAL EXTENSION SPECIALIST [phone] Patient/Caregiver Goals of Treatment: Have procedure and return home Potential Needs for Transition of Care: home health care Agency Referrals: patient requests referral to: [facility] [place] [address] PHONE: [phone] FAX: [phone] Transportation: no concerns Transportation Anticipated: family or friend will provide Concerns to be Addressed: discharge planning, adjustment to diagnosis/illness, care team assistant support, home safety Assessment: Patient is admitted to Cardiology S1 service for Aortic stenosis & expedited TAVR workup Plan: TAVR 03-07-2023 then discharge to home with home health services when medically ready A member of the Care Management team will continue to monitor progress, follow for continuity of care and assist with transition of care planning. Danilo Lobato RN CM(remote) Mega Arciniega RN CM Pager [phone] documented in this encounter Plan of Treatment Upcoming Encounters Date Type Department Care Team (Late st Contact Info) Description 02/06/2025 2:40 PM EDT Office Visit Cardiology at [address] [place] [address] Rigoberto Diaz MD [facility] [place] [address] Scheduled Orders Name Type Priority Associated Diagnoses Orde r Schedule EKG 12 Lead ECG Routine S/P TAVR (transcatheter aortic valve replacement) One Time for 1 Occurrences starting 03/08/2023 until 03/08/2023 Scheduled Procedures Name Priority Associated Diagnoses Date/Ti me EGD, UPPER GI ENDOSCOPY (WRV U 2.09) Incontinence of feces, unspecified fecal incontinence type Dysphagia, unspecified type COLONOSCOPY, DIAGNOSTIC (WRV U 3.26) Incontinence of feces, unspecified fecal incontinence type Dysphagia, unspecified type Scheduled Referrals Name Type Priority Associated Diagnoses Orde r Schedule Referral to Cardiac Rehab Outpatient Referral Routine S/P TAVR (transcatheter aortic valve replacement) Ordered: 03/08/2023 Referral to Home Health Outpatient Referral Routine S/P TAVR (transcatheter aortic valve replacement) Ordered: 03/09/2023 documented as of this encounter Procedures Procedure Name Priority Date/Time Associated Diagnosis Comments EKG 12-LEAD Routine 03/08/2023 11:05 AM EDT S/P TAVR (transcatheter aortic valve replacement) ZIOPATCH 48 HRS-15 DAYS Routine 03/08/20 10:01 AM EDT S/P TAVR (transcatheter aortic valve replacement) EKG 12-LEAD STAT 03/08/2023 5:34 AM EDT S/P TAVR (transcatheter aortic valve replacement) HEMOGRAM Routine 03/08/2023 4:13 AM EDT DIFFERENTIAL, AUTOMATED Routine 03/08/20 4:13 AM EDT HC CBC,PLT & AUTO DIFF Routine 4:13 AM EDT BASIC METABOLIC PANEL (NON-FASTING) Routine 03/08/2023 4:13 AM EDT HC HEMOGLOBIN, BLOOD Routine 03/07/2023 8:10 PM EDT HC VENIPUNCTURE Routine 03/07/2023 8:10 PM EDT ECHO LMTD W/O CONTRAST W LMTD SPEC DOPP COLOR DOPP Routine 03/07/2023 3:48 PM EDT Aortic valve stenosis, etiology of cardiac valve disease unspecified EKG 12-LEAD STAT 03/07/2023 3:44 PM EDT Aortic valve stenosis, etiology of cardiac valve disease unspecified CARDIAC CATHETERIZATION Routine 03/07/20 3:31 PM EDT POINT OF CARE BLOOD GAS HISTORICAL Routine 03/07/2023 2:20 PM EDT TRANSESOPHAGEAL ECHO DURING CATH/EP PROCEDURE 03/07/2023 1:57 PM EDT aortic stenosis, severe/TAVR Combined Right & Left Heart Cath W/Inj L Ventriculography, Img S&I ([id number]) 03/07/2023 1:57 PM EDT aortic stenosis, severe/TAVR @TRANSCATHETER AORTIC VALVE REPLACEMENT (TAVR), PERCUTANEOUS FEMORAL Routine 03/07/2023 8:50 AM EDT TYPE AND SCREEN VALIDITY Routine 03/07/2023 3:35 AM EDT ABORH RECHECK STATUS Routine 03/07/2023 3:35 AM EDT HEMOGRAM Routine 03/07/2023 3:35 AM EDT DIFFERENTIAL, AUTOMATED Routine 03/07/20 3:35 AM EDT ABO/RH TYPING Routine 03/07/2023 3:35 AM EDT HC CBC,PLT & AUTO DIFF Routine 3:35 AM EDT ANTIBODY SCREEN Routine 03/07/2023 3:35 AM EDT TYPE AND SCREEN ([facility]) Routine 03/07/2023 3:35 AM EDT HC PHOSPHORUS, SERUM Routine 03/07/2023 3:35 AM EDT HC MAGNESIUM, SERUM Routine 03/07/2023 3 :35 AM EDT BASIC METABOLIC PANEL (NON-FASTING) Routine 03/07/2023 3:35 AM EDT HC VENIPUNCTURE STAT 03/06/2023 11:16 AM EDT HC VENIPUNCTURE STAT 03/06/2023 11:09 AM EDT XR CHEST ONE VIEW Routine 03/06/2023 8:4 5 AM EDT URINALYSIS WITH REFLEX CULTURE Routine 03/06/2023 8:28 AM EDT HEMOGRAM Routine 03/06/2023 4:02 AM EDT DIFFERENTIAL, AUTOMATED Routine 03/06/20 4:02 AM EDT HC CBC,PLT & AUTO DIFF Routine 4:02 AM EDT HC PHOSPHORUS, SERUM Routine 03/06/2023 4:02 AM EDT HC MAGNESIUM, SERUM Routine 03/06/2023 4 :02 AM EDT BASIC METABOLIC PANEL (NON-FASTING) Routine 03/06/2023 4:02 AM EDT HEMOGRAM Routine 03/05/2023 3:50 AM EDT DIFFERENTIAL, AUTOMATED Routine 03/05/20 3:50 AM EDT HC CBC,PLT & AUTO DIFF Routine 3:50 AM EDT HC PHOSPHORUS, SERUM Routine 03/05/2023 3:50 AM EDT HC MAGNESIUM, SERUM Routine 03/05/2023 3 :50 AM EDT BASIC METABOLIC PANEL (NON-FASTING) Routine 03/05/2023 3:50 AM EDT HC VENIPUNCTURE STAT 03/04/2023 10:45 PM EDT EKG 12-LEAD Routine 03/04/2023 8:24 PM EDT Aortic valve stenosis, etiology of cardiac valve disease unspecified HC VENIPUNCTURE STAT 03/04/2023 8:10 PM EDT HEMOGRAM Routine 03/04/2023 5:17 AM EDT DIFFERENTIAL, AUTOMATED Routine 03/04/20 5:17 AM EDT HC CBC,PLT & AUTO DIFF Routine 5:17 AM EDT HC PHOSPHORUS, SERUM Routine 03/04/2023 5:17 AM EDT HC MAGNESIUM, SERUM Routine 03/04/2023 5 :17 AM EDT BASIC METABOLIC PANEL (NON-FASTING) Routine 03/04/2023 5:17 AM EDT HEMOGRAM Routine 03/03/2023 4:07 AM EDT DIFFERENTIAL, AUTOMATED Routine 03/03/20 4:07 AM EDT HC CBC,PLT & AUTO DIFF Routine 4:07 AM EDT HC PHOSPHORUS, SERUM Routine 03/03/2023 4:07 AM EDT HC MAGNESIUM, SERUM Routine 03/03/2023 4 :07 AM EDT HC VITAMIN B12 SERUM Routine 03/03/2023 4:07 AM EDT BASIC METABOLIC PANEL (NON-FASTING) Routine 03/03/2023 4:07 AM EDT HEMOGRAM Routine 03/02/2023 4:09 AM EDT DIFFERENTIAL, AUTOMATED Routine 03/02/20 4:09 AM EDT HC CBC,PLT & AUTO DIFF Routine 4:09 AM EDT HC PHOSPHORUS, SERUM Routine 03/02/2023 4:09 AM EDT HC MAGNESIUM, SERUM Routine 03/02/2023 4 :09 AM EDT BASIC METABOLIC PANEL (NON-FASTING) Routine 03/02/2023 4:09 AM EDT HEMOGRAM Routine 03/01/2023 4:48 PM EDT DIFFERENTIAL, AUTOMATED Routine 03/01/20 4:48 PM EDT HC CBC,PLT & AUTO DIFF Routine 4:48 PM EDT HC PHOSPHORUS, SERUM Routine 03/01/2023 4:48 PM EDT HC MAGNESIUM, SERUM Routine 03/01/2023 4 :48 PM EDT BASIC METABOLIC PANEL (NON-FASTING) Routine 03/01/2023 4:48 PM EDT ECHO COMPLETE Routine 03/01/2023 4:42 PM EDT Aortic valve stenosis, etiology of cardiac valve disease unspecified EKG 12-LEAD STAT 03/01/2023 1:52 PM EDT Aortic valve stenosis, etiology of cardiac valve disease unspecified documented in this encounter Results * (ABNORMAL) Comprehensive metabolic panel (non-fasting) (05/05/2023 11:24 AM EDT) Glucose Lvl 111 65 - 199 mg/dL [facility] Comment:Diabetes: >=200 mg/d L plus symptoms BUN 21(H) 8 - 18 mg/dL [facility] Creatinine 1.18 0.70 - 1.20 mg/dL [facility] Sodium 139 135 - 145 mmol/L [facility] Potassium 4.3 3.5 - 5.0 mmol/L [facility] Comment: Please note: ??Patients with WBC >100,000 may have falsely elevated Potassium levels. ??For accurate Potassium quantification in these patients send serum separator tube (gold top) for subsequent determinations. ??Contact the Clinical Chemistry Laboratory if there are any questions. Chloride 102 98 - 107 mmol/L [facility] CO2 26 22 - 31 mmol/L [facility] Anion Gap 11 5 - 15 mmol/L [facility] Calcium 9.4 8.5 - 10.5 mg/dL [facility] Total Protein 7.3 6.1 - 8.0 g/dL [facility] Albumin 4.3 3.2 - 5.2 g/dL [facility] AST 17 0 - 30 unit/L [facility] ALT 13 0 - 30 unit/L [facility] Alk Phos 73 35 - 105 unit/L [facility] Total Bilirubin 0.3 0.2 - 1.3 mg/dL [facility] Estimated GFR 48(L) >=60 mL/min/1. 73 m?? [facility] Comment: This patient's estimated GFR [...] Resulting Agency Comment Spec In Lab Rahat Vargas MD CHEMISTRY ORDERABLE S Performing Organization Address [facility] Co de Phone Number [facility] [place] [address] * EKG 12 Lead (03/08/2023 11:05 AM EDT) Ventricular rate 67 BPM MUSE SYSTEM Atrial Rate 67 BPM MUSE SYSTEM P-R Interval 158 ms MUSE SYSTEM QRS Duration 132 ms MUSE SYSTEM Q-T Interval 442 ms MUSE SYSTEM QTC Calculated (Bezet) 467 ms MUSE SYSTEM Calculated P Ellis 63 degrees MUSE SYSTEM Calculated R Ellis -37 degrees MUSE SYSTEM Calculated T Ellis 13 degrees MUSE SYSTEM INTERPRETATION Normal sinus rhythm Left axis deviation Right bundle branch block Abnormal ECG When compared with ECG of 08-MAR-2023 05:34, No significant change was found Confirmed by MD Valenzuela Danette ([id number]) on 03/08/2023 3:20:36 PM MUSE SYSTEM 03/08/2023 11:0 5 AM EDT 03/08/2023 3:20 PM EDT Rahat Vargas MD ECG ORDERABLES Performing Organization Address [facility] Co de Phone Number MUSE SYSTEM * Ziopatch 48 Hrs-15 Days (03/08/2023 10:01 AM EDT) Anatomical Region Laterality Modality Other Narrative 03/28/2023 3:43 PM EDT Images from the original result were not included. [facility] ? [facility] Cardiac Event Monitor [...] than 1%; there were rare ventricular couplets Guzman Rhythm Findings: 1. ??The predominant underlying rhythm [...] tab. ??For patients accessing the study from [facility] (My Chart), click on the link or links found in the IMAGES area below the text of the report. ? Randy Chatman MD, FA, FACC Suhail Padilla APRN CARDIAC SERVICES OR DERABLES * EKG 12 Lead (03/08/2023 5:34 AM EDT) Ventricular rate 98 BPM MUSE SYSTEM Atrial Rate 98 BPM MUSE SYSTEM P-R Interval 168 ms MUSE SYSTEM QRS Duration 128 ms MUSE SYSTEM Q-T Interval 384 ms MUSE SYSTEM QTC Calculated (Bezet) 490 ms MUSE SYSTEM Calculated P Ellis 59 degrees MUSE SYSTEM Calculated R Ellis -39 degrees MUSE SYSTEM Calculated T Ellis 8 degrees MUSE SYSTEM INTERPRETATION Normal sinus rhythm Left axis deviation Right bundle branch block Abnormal ECG When compared with ECG of 07-MAR-2023 15:44, (unconfirmed) Left posterior fascicular block is no longer Present I personally reviewed the tracing and edited the fellows interpretation Confirmed by fellow MD Yina, Galo ([id number]) on 03/08/2023 5:20:12 PM Confirmed by MD DAVID, MARTIR ([id number]) on 03/08/2023 9:28:11 PM MUSE SYSTEM 03/08/2023 5:34 AM EDT 03/08/2023 9:28 PM EDT Rahat Vargas MD ECG ORDERABLES MUSE SYSTEM * (ABNORMAL) Differential, Automated (03/08/2023 4:13 AM EDT) Pathologist [facility] Neutrophils % 73.3 % [facility] Neutr Abs (ANC) 8.45(H) 1.70 - 6.10 x10(3)/mc L [facility] Lymphocytes % 14.9 % [facility] Lymphocytes Abs 1.7 0.9 - 3.2 x10(3)/mc L [facility] Monocytes % 10.9 % [facility] Monocyte Abs 1.3(H) 0.3 - 0.9 x10(3)/mc L [facility] Eosinophils % 0.1 % [facility] Eosinophils Abs 0.0 0.0 - 0.4 x10(3)/mc L [facility] Basophils % 0.3 % [facility] Basophils Abs 0.0 0.0 - 0.1 x10(3)/mc L [facility] Immature Gran % 0.50 % [facility] Comment: Immature granulocytes(IG's)percentage and absolute count will include metamyelocytes, myelocytes, and promyelocytes. Blood smears from CBCs yielding IG's will be scanned manually for concordance. If this scan disagrees with the automated IG or if promyelocytes are noted, a manual differential will be performed. [place] Gran Abs 0.06(H) 0.00 - 0.04 x10(3)/[facility] Blood 03/08/2023 4:13 AM EDT 03/08/2023 4:29 AM EDT Narrative Resulting Agency Comment Spec In Lab Bam SALINAS HEMATOLOGY ORDERABLE S [facility] [place] [address] * (ABNORMAL) Hemogram (03/08/2023 4:13 AM EDT) WBC 11.5(H) 4.0 - 9.5 x10(3)/[facility] RBC 3.43(L) 4.00 - 5.21 x10(6)/[facility] Hemoglobin 11.1(L) 11.7 - 15.5 g/dL [facility] Hematocrit 32.9(L) 35.7 - 45.8 % [facility] MCV 95.9(H) 82.6 - 94.4 fL [facility] MCH 32.4(H) 27.1 - 32.0 pg [facility] MCHC 33.7 31.7 - 35.0 g/dL [facility] Platelets 216 145 - 357 x10(3)/[facility] LABORATORY RDWSD 43.8 37.0 - 46.0 [facility] LABORATORY RDWCV 12.3 11.5 - 14.1 % [facility] MPV 9.6 7.6 - 12.9 fL [facility] nRBC % Auto 0.0 % [facility] nRBC Abs Auto 0.000 0.000 - 0.000 x10(3)/mcL [facility] Blood 03/08/2023 4:13 AM EDT 03/08/2023 4:29 AM EDT Narrative Resulting Agency Comment Spec In Lab Bam SALINAS HEMATOLOGY ORDERABLE S [facility] [place] [address] * (ABNORMAL) Basic Metabolic Panel (non-fasting) (03/08/2023 4:13 AM EDT) Glucose Lvl 116 65 - 199 mg/dL [facility] Comment:Diabetes: >=200 mg/d L plus symptoms BUN 21(H) 8 - 18 mg/dL [facility] Creatinine 0.89 0.70 - 1.20 mg/dL [facility] Sodium 134(L) 135 - 145 mmol/L [facility] Potassium 3.8 3.5 - 5.0 mmol/L [facility] Comment: Please note: ??Patients with WBC >100,000 may have falsely elevated Potassium levels. ??For accurate Potassium quantification in these patients send serum separator tube (gold top) for subsequent determinations. ??Contact the Clinical Chemistry Laboratory if there are any questions. Chloride 99 98 - 107 mmol/L [facility] CO2 23 22 - 31 mmol/L [facility] Anion Gap 12 5 - 15 mmol/L [facility] Calcium 9.2 8.5 - 10.5 mg/dL [facility] Estimated GFR 68 >=60 mL/min/1. 73 m?? [facility] Comment: This patient's estimated GFR [...] and symptoms in addition to eGFR. Blood 03/08/2023 4:13 AM EDT 03/08/2023 4:29 AM EDT Narrative Resulting Agency Comment Spec In Lab Rahat Vargas MD CHEMISTRY ORDERABLE S Performing Organization Address [facility] Co de Phone Number [facility] [place] [address] * (ABNORMAL) Hemoglobin (03/07/2023 8:10 PM EDT) Hemoglobin 11.1(L) 11.7 - 15.5 g/dL [facility] Blood 03/07/2023 8:10 PM EDT 03/07/2023 8:21 PM EDT Narrative Resulting Agency Comment Spec In Lab Rahat Vargas MD HEMATOLOGY ORDERABL ES Performing Organization Address [facility] de Phone Number [facility] [place] [address] * Potassium (03/07/2023 8:10 PM EDT) Potassium 4.1 3.5 - 5.0 mmol/L [facility] Comment: Please note: ??Patients with WBC >100,000 may have falsely elevated Potassium levels. ??For accurate Potassium quantification in these patients send serum separator tube (gold top) for subsequent determinations. ??Contact the Clinical Chemistry Laboratory if there are any questions. Blood 03/07/2023 8:10 PM EDT 03/07/2023 8:21 PM EDT Narrative Resulting Agency Comment Spec In Lab Rahat Vargas MD CHEMISTRY ORDERABLE S Performing Organization Address [facility] Co de Phone Number [facility] [place] [address] * ECHO LMTD W/O CONTRAST W LMTD SPEC DOPP COLOR DOPP (03/07/2023 3:48 PM EDT) EF 75 HEARTLAB SYSTEM Anatomical Region Laterality Modality Cardiac Other 03/07/2023 2:28 PM EDT Narrative 03/07/2023 4:27 PM EDT ? Echocardiogram Report Name: DELEON, LINDSEY D ? Study Date: 03/07/2023 02:28 PM ? Patient Location: 4A : 1950 ? Height: 160 cm ? Account: [id number] Age: 72 yrs ? Weight: 79 kg Gender: Female ?BSA: 1.8 m2 Ordering Physician: BRANDON CROWLEY Referring Physician: ALEXANDER GAMEZ Performed By: Hugh Solomon RDCS Reason For Study: Guidance for TAVR procedure Interpreting Fellow: Rigoberto Humphreys. Exam Location: [facility]. Interpretation Summary PRE-TAVR: There is severe . The peak/mean gradients are 47/30 mmHg respectively. SVI 32.2ml/m2, DOI 0.22, AUREA 0.68cm2. Normal biventricular systolic function. POST-TAVR: There is now an Dykes TAVR valve (23mm mm) present. Aortic valve appears well seated with normal function. The peak/mean gradients are 20/8 mmHg respectively. SVI 50.9 ml/m2, DOI 0.82, AURAE 2.6cm2. Left ventricle is of normal size. Left ventricular systolic function is hyperdynamic. Left ventricular ejection fraction is estimated visually at 75-80%. (post procedure). There are no segmental wall motion abnormalities. The right ventricle is probably normal in size. Right ventricular function is probably normal. There is no pericardial effusion. Procedure Limited - 72028. Color Doppler - 91859. limited spectral 55966. Suboptimal quality. This study is limited because of inadequate acoustic windows. Left Ventricle Left ventricle is of normal size. Left ventricular systolic function is hyperdynamic. Left ventricular ejection fraction is estimated visually at 75- 80%. (post procedure). There are no segmental wall motion abnormalities. Right Ventricle The right ventricle is probably normal in size. Right ventricular function is probably normal. Aortic Valve There is a transcatheter valve in the aortic position. It is known to be a 23mm Dykes Lenard Ultra R TAVR valve. The date or year of insertion is 03/07/2023. The peak gradient across the prosthesis is 20 mmHg. The mean gradient across the prosthesis is 8 mmHg. There appears to be no paravalvular regurgitation. There appears to be no intravalvular regurgitation. The aortic prosthetic valve appears to be functioning normally. Mitral Valve The severity of mitral stenosis cannot be determined from the available data. There is mild to moderate mitral regurgitation. Pericardium/Pleural There is no pericardial effusion. ? 2D Measurements ? Volumes ?LVOT diam: 2.0 cm ?SV(LVOT): 92.8 ml ? LV Stroke Volume: 93.0 ml ? SI(LVOT): 50.9 ml/m2 Doppler LV V1 VTI: 29.9 cm LVOT max Velocity: 160.0 cm/sec Ao V2 VTI: 36.3 cm Ao Max: 221.3 cm/sec Ao valve max: 19.6 mmHg Ao valve mean: 8.3 mmHg AUREA(I,D): 2.6 cm2 Dimensionless index Aov: 0.82 I ?WMSI = 1.00 ? % Normal = 100 ?Segments ??Size X - Cannot ?? 1 - Normal ?? 2 - ? 3 - Akinetic 4 - ?1-2 ? small Interpret ? Hypokinetic ?Dyskinetic ?? 3-5 ? moderate 5 - ? 6-14 ?large Aneurysmal ?15-16 ?? diffuse Procedure Note Donny Moctezuma MD - 03/07/2023 Echocardiogram Report Name: LINDSEY DELEON Study Date: 302:28 PM Patient Location: 4A : 1950 Height: 160 cm Account: [id number] Age: 72 yrs Weight: 79 kg Gender: Female BSA: 1.8 m2 Ordering Physician: BRANDON CROWLEY Referring Physician: ALEXANDER GAMEZ Performed By: Hugh Solomon RDCS Reason For Study: Guidance for TAVR procedure Interpreting Fellow: Rigoberto Humphreys. Exam Location: [facility]. Interpretation Summary PRE-TAVR: There is severe . The peak/mean gradients are 47/30 mmHgrespectively. SVI 32.2ml/m2, DOI 0.22, AUREA 0.68cm2. Normal biventricular systolicfunction. POST-TAVR: There is now an Dykes TAVR valve (23mm mm) present. Aorticvalve appears well seated with normal function. The peak/mean gradients are 20/8mmHg respectively. SVI 50.9 ml/m2, DOI 0.82, AUREA 2.6cm2. Left ventricle is ofnormal size. Left ventricular systolic function is hyperdynamic. Leftventricular ejection fraction is estimated visually at 75-80%. (post procedure). Thereare no segmental wall motion abnormalities. The right ventricle is probablynormal in size. Right ventricular function is probably normal. There is nopericardial effusion. Procedure Limited - 32057. Color Doppler - 97945. limited spectral 72927.Suboptimal quality. This study is limited because of inadequate acoustic windows. Left Ventricle Left ventricle is of normal size. Left ventricular systolic function is hyperdynamic. Left ventricular ejection fraction is estimated visually at75-80%. (post procedure). There are no segmental wall motion abnormalities. Right Ventricle The right ventricle is probably normal in size. Right ventricular functionis probably normal. Aortic Valve There is a transcatheter valve in the aortic position. It is known to be a23mm Dykes Lenard Ultra R TAVR valve. The date or year of insertion is03/07/2023. The peak gradient across the prosthesis is 20 mmHg. The mean gradientacross the prosthesis is 8 mmHg. There appears to be no paravalvular regurgitation.There appears to be no intravalvular regurgitation. The aortic prosthetic valveappears to be functioning normally. Mitral Valve The severity of mitral stenosis cannot be determined from the availabledata. There is mild to moderate mitral regurgitation. Pericardium/Pleural There is no pericardial effusion. 2D Measurements Volumes LVOT diam: 2.0 cm SV(LVOT): 92.8ml LV Stroke Volume:93.0 ml SI(LVOT): 50.9ml/m2 Doppler LV V1 VTI: 29.9 cm LVOT max Velocity: 160.0 cm/sec Ao V2 VTI: 36.3 cm Ao Max: 221.3 cm/sec Ao valve max: 19.6 mmHg Ao valve mean: 8.3 mmHg AUREA(I,D): 2.6 cm2 Dimensionless index Aov: 0.82 I WMSI = 1.00 % Normal = 100 SegmentsSize X - Cannot 1 - Normal 2 - 3 - Akinetic 4 - 1-2small Interpret Hypokinetic Dyskinetic 3-5moderate 5 - 6-14large Aneurysmal 15-16diffuse Brandon Crowley MD ECHO ORDERABLES * EKG 12 Lead (03/07/2023 3:44 PM EDT) Ventricular rate 81 BPM MUSE SYSTEM Atrial Rate 81 BPM MUSE SYSTEM P-R Interval 198 ms MUSE SYSTEM QRS Duration 144 ms MUSE SYSTEM Q-T Interval 430 ms MUSE SYSTEM QTC Calculated (Bezet) 499 ms MUSE SYSTEM Calculated P Ellis 75 degrees MUSE SYSTEM Calculated R Ellis 115 degrees MUSE SYSTEM Calculated T Ellis -3 degrees MUSE SYSTEM INTERPRETATION Suspect limb lead reversal, interpretation assumes no reversal Normal sinus rhythm Right bundle branch block Left posterior fascicular block Bifascicular block Abnormal ECG When compared with ECG of 04-MAR-2023 20:24, Left posterior fascicular block is now Present Left anterior fascicular block is no longer Present Confirmed by MD DAVID, MARTIR ([id number]) on 03/08/2023 9:07:20 PM MUSE SYSTEM 03/07/2023 3:44 PM EDT 03/08/2023 9:07 PM EDT Brandon Crowley MD ECG ORDERABLES MUSE SYSTEM * CARDIAC CATHETERIZATION (03/07/2023 3:31 PM EDT) Anatomical Region Laterality Modality Other Narrative 03/09/2023 11:57 AM EDT ?[facility] ? Cardiac Catheterization/Intervention Report ? Patient Name: Deleon, Lindsey D. ? Procedure Date: 03/07/2023 ? A #: [id number] ? Primary Physician: Brian, Mike T ? Case #: [id number] ? File Name: [id number] ? Catheterization Order Number: [id number] ? [facility] ? Final Report [place], [place] ? Patient Name: ? Lindsey D. Deleon ?ID#: ?[id number] ? : ?1950 ? Procedure Date: ? March 07, 2023 ? Case #: ? [id number] ? Room: ? 6 ? Case Physician: ? Mike Torres M.D. ?Start: ?14:38 ?Fellow: ? Wassim Dalton Gamez ?Admission: ??03/01/2023 ? Referring Physician: ??Wassipayam Gamez M.D. ? Procedures: ?* Aortic Root Aortogram ?* Transcatheter Aortic Valve Replacement ?* Vascular Closure Device Deployment ?* Temporary Pacemaker Insertion In Physical Scientist ?* Arterial Line / Sheath Insert ?* Cardiac Fluoro ?* Access Site Angiography ?* Arterial Blood Gases ?* Anesthesia ?* Transthoracic Echo During Cath ? History ?Lindseysa Billie Deleon is a 72 year old woman. She has hypertension. The ?patient's smoking status is Former. She has hypercholesterolemia managed ?with lipid therapy. The patient has a history of carotid artery disease ?and a carotid endarterectomy. She has a history of peripheral vascular ?disease with intermittent claudication. The patient also has a history of ?chronic obstructive pulmonary disease. Prior to the initiation of this ?procedure, the patient was designated as ASA Class III. The [facility] clinical ?frailty scale is 4: Vulnerable. ? Diagnostic Tests: ?Prior Coronary Angiography: ? LV ejection fraction within 6 months is 56%. ?Electrocardiography: ? EKG was assessed by ECG. EKG was Abnormal. EKG showed other ? abnormality. ?Medications Prior to Procedure: ? Aspirin, Calcium Channel Blocking Agent, Non-Statin and Statin. ? Indications for Diagnostic Cath: ?The priority of the diagnostic procedure was Urgent. Chest pain symptom ?assessment was: Non-anginal Chest Pain. One of the indications for cath ?is valvular heart disease. The patient has Severe aortic stenosis. ? Technique: ?A 6 SLFr sheath was inserted in the right radial artery utilizing the ?Seldinger technique. A 6Fr sheath was inserted in the left femoral artery ?utilizing the Seldinger technique. A 6Fr sheath was inserted in the right ?femoral vein utilizing the Seldinger technique. The aortic root was ?injected utilizing a 6Fr PIGTAIL catheter. 7,000 units of heparin were ?administered. A total of 200cc of Omnipaque were opened, 72cc of ?Omnipaque were administered and 128cc of Omnipaque were wasted. ?Radiation: Fluoro time was 12.6 minutes, dose area product was 58,400 ?mGYcm2 and air kerma was 293 mGY. See the case log for additional ?details. ?The patient received the following medications prior to and during the ?procedure: ? Unfractionated Heparin. ? Hemodynamics: ?Left Heart Pressures ? Resting: ? Syst Diast ? EDP ?a ?v ? m ?Ao 149 ?? 55 ?91 ? Stenotic Valve Data: ?Aortic Valve ?Peak Gradient - 47 ?Mean Gradient - 30 ?Area - 0.7 sq. cm. ? Hemodynamics After TAVR: ?Left Heart Pressures ? Post Intervention: ? Syst Diast ? EDP ?a ?v ? m ?Ao 130 ?? 28 ?94 ? Stenotic Valve Data After TAVR: ?Aortic Valve ?Peak Gradient - 20 ?Mean Gradient - 8 ?Area - 2.6 sq. cm. ? Aortography: ?Normal ?Comments: ? There were three aortic cusps. There was evidence of aortic valve ? calcification. ? Indication for Selected Procedures: ?A temporary pacemaker was inserted for pacing. ? Transcatheter Aortic Valve Replacement (TAVR): ?A transcatheter aortic valve replacement was performed. The primary ?indication for the procedure was Primary and the reason for the ?procedure was low risk (<4% risk of 30 day mortality) surgical risk. The ?etiology of the aortic valve disease was degenerative. The valve ?morphology was tricuspid and there was +1/mild aortic insufficiency at ?baseline. ?The procedure was performed in the hybrid cath suite. The aortic valve ?annular size was 400 sq.mm. as assessed by CTA. At baseline the mean ?trans-valvular gradient was 29.0 mmHg and the aortic valve area was 0.8 ?sq.cm. The calculated STS risk score was 1.9%. ?The procedure was performed under Moderate sedation. Rahat Vargas, ?M.D. participated in the case (see Cardiac Surgery report for additional ?details). ?The TAVR sheath was a 14 Fr Dykes eSheath Introducer and the access ?site was femoral. Rapid ventricular pacing was performed. ?An Dykes Lenard 3 Ultra RESILIA 23 mm THV (s/g=[id number]) transcatheter ?valve was inserted using standard technique. Protamine was administered ?at the conclusion of the case. ?The post procedure mean trans-valvular gradient was 8.0 mmHg by ?hemodynamic measurement. A post procedure transthoracic echocardiogram ?was performed. The mean trans-TAVR valve gradient was 8.0 mmHg and the ?valve area was 2.0 sq.cm. There was trace/trivial residual aortic ?insufficiency as assessed by echo-TTE. ?The TAVR procedure was successful. ? Vascular Access: ?Vascular Access Angiogram: ? A selective angiogram at the left femoral artery revealed mild ? diffuse disease. ?Vascular Access Management: ? A 6 Fr Perclose was deployed at the left femoral artery access site. ? This device was successful. Manual Compression of the left femoral ? artery access site was performed. ? Mechanical Compression of the right radial artery access site was ? performed. ? Manual Compression of the right femoral vein access site was ? performed. ? Point of Care Testing: ?ABG: ? Arterial Blood gasses were performed using the I-Stat analyzer at ? 14:20: pH: 7.43, pCO2: 36.7, pO2: 130.0, sPO2: 99%, HCO3: 24 on ? FIO2: 100% FIO2. ?I-Stat: ? I-Stat was performed using the I-Stat analyzer at 14:20: Na+: 138, ? K+: 4.3, iCa++: 1.25, Hct: 36%, Hb: 12.2. ? Dual Antiplatelet (DAPT) Recommendations: ?Patient was not on a P2Y12 inhibitor prior to nor was it given in the ?label maker. ?Recommended anti-platelet/anti-thrombotic regimen: ?Start aspirin 81 mg daily now and continue for indefinitely. ?These recommendations are made at the time of the intervention. Patient ?and provider preferences or a changing clinical situation may require ?modification of this regimen. Consult [facility] Interventional Cardiology for ?questions. ? Conclusions: ?* Severe aortic stenosis ?* Successful Transcatheter Aortic Valve Replacement ?* See Dual Antiplatelet (DAPT) Recommendations above ? Complications/Events: ?The patient had no complications during these procedures. ? Post Procedure Fluid Recommendations: ?IV fluid at 100 mL/hr for 4 hours for a total of 400 mL. These ?recommendations are made at the time of the procedure. Patient and ?provider preferences or a changing clinical situation may require ?modification of this regimen. ? Recommendations: ?Based upon the results of this procedure, it was recommended that the ?patient be managed with medical therapy. ?The attending physician was present for the entire procedure. ?Dr. Mike Torres M.D. performed the access site angiography, temporary ?pacemaker in label maker, arterial line / sheath insert, cardiac fluoro, ?vascular closure device, ABG, transthoracic echo , TAVR, aortic root ?aortogram and anesthesia. ? Mike Torres, M.D. ? Electronically Signed by: Mike Torres, M.D. ? Report Finalized: 03/09/2023 ??11:52 ? Mike Torres MD CARDIAC CATH ORDERAB LES * (ABNORMAL) Point of Care Blood Gas Historical (03/07/2023 2:20 PM EDT) POC pH 7.43 7.35 - 7.45 [facility] POC PCO2 37 35 - 45 mmHg [facility] POC PO2 130(H) 85 - 104 mmHg [facility] POC Base Excess 0.0 -3.0 - 3.0 mmol/L [facility] POC HCO3 24.6 20.0 - 26.0 mmol/L [facility] POC Sodium 138 135 - 145 mmol/L [facility] POC Potassium 4.3 3.5 - 5.0 mmol/L [facility] POC Ionized Ca 1.25 1.15 - 1.33 mmol/L [facility] POC Hematocrit 36.0 34.0 - 45.0 % [facility] POC Calc Hgb 12.2 11.2 - 15.7 g/dL [facility] Comment:The calculation of h emoglobin from hematocrit assumes a normal MCHC. POC Bgas Loc CC LAB [facility] Blood 03/07/2023 2:20 PM EDT 03/09/2023 12:00 PM EDT Rahat Vargas MD CHEMISTRY ORDERABLE S [facility] [place] [address] * Type and Screen Validity (03/07/2023 3:35 AM EDT) T&S only valid at [facility] Comment:This Type and Screen result is only valid at the [facility] Hospital Blood 03/07/2023 3:35 AM EDT 03/07/2023 3:42 AM EDT Narrative Resulting Agency Comment Spec In Lab Edwige Nieves APRN BLOOD BANK LAB ORDER TANA Performing Organization Address City/[facility]/ZIP Co de Phone Number [facility] [place] [address] * ABORH Recheck Status (03/07/2023 3:35 AM EDT) ABORH Type Recheck Completed [facility] Blood 03/07/2023 3:35 AM EDT 03/07/2023 3:42 AM EDT Narrative Resulting Agency Comment Spec In Lab Edwige Nieves APRN BLOOD BANK LAB ORDER TANA Performing Organization Address [facility] de Phone Number [facility] [place] [address] * (ABNORMAL) Differential, Automated (03/07/2023 3:35 AM EDT) Neutrophils % 56.8 % [facility] Neutr Abs (ANC) 3.80 1.70 - 6.10 x10(3)/[facility] Lymphocytes % 28.0 % [facility] Lymphocytes Abs 1.9 0.9 - 3.2 x10(3)/[facility] Monocytes % 14.0 % [facility] Monocyte Abs 0.9 0.3 - 0.9 x10(3)/[facility] Eosinophils % 0.1 % [facility] Eosinophils Abs 0.0 0.0 - 0.4 x10(3)/[facility] Basophils % 0.4 % [facility] Basophils Abs 0.0 0.0 - 0.1 x10(3)/[facility] Immature Gran % 0.70 % [facility] Comment: Immature granulocytes(IG's)percentage and absolute count will include metamyelocytes, myelocytes, and promyelocytes. Blood smears from CBCs yielding IG's will be scanned manually for concordance. If this scan disagrees with the automated IG or if promyelocytes are noted, a manual differential will be performed. [place] Gran Abs 0.05(H) 0.00 - 0.04 x10(3)/mc L [facility] Blood 03/07/2023 3:35 AM EDT 03/07/2023 3:56 AM EDT Narrative Resulting Agency Comment Spec In Lab Mega Gant MD HEMATOLOGY ORDERABLE S [facility] [place] [address] * (ABNORMAL) Hemogram (03/07/2023 3:35 AM EDT) WBC 6.7 4.0 - 9.5 x10(3)/[facility] RBC 3.64(L) 4.00 - 5.21 x10(6)/[facility] Hemoglobin 11.8 11.7 - 15.5 g/dL [facility] Hematocrit 35.1(L) 35.7 - 45.8 % [facility] MCV 96.4(H) 82.6 - 94.4 fL [facility] MCH 32.4(H) 27.1 - 32.0 pg [facility] MCHC 33.6 31.7 - 35.0 g/dL [facility] Platelets 241 145 - 357 x10(3)/[facility] RDWSD 43.4 37.0 - 46.0 [facility] RDWCV 12.2 11.5 - 14.1 % [facility] MPV 9.7 7.6 - 12.9 [facility] nRBC % Auto 0.0 % [facility] nRBC Abs Auto 0.000 0.000 - 0.000 x10(3)/[facility] Blood 03/07/2023 3:35 AM EDT 03/07/2023 3:56 AM EDT Narrative Resulting Agency Comment Spec In Lab Mega Gant MD HEMATOLOGY ORDERABLE S Performing Organization Address City/[facility]/ZIP Co de Phone Number [facility] [place] [address] * Antibody screen (03/07/2023 3:35 AM EDT) Ab Screen Interp Negative [facility] Expires at [id number] on: 03/10/2023 [facility] Blood 03/07/2023 3:35 AM EDT 03/07/2023 3:42 AM EDT Narrative Resulting Agency Comment Spec In Lab Edwige Pérez Lizbeth SPARROW BLOOD BANK LAB ORDER TANA Performing Organization Address City/[facility]/ZIP Co de Phone Number [facility] [place] [address] * ABO/Rh Typing (03/07/2023 3:35 AM EDT) ABORH Type O Pos [facility] Blood 03/07/2023 3:35 AM EDT 03/07/2023 3:42 AM EDT Narrative Resulting Agency Comment Spec In Lab Edwige Maddoxgloria SPARROW BLOOD BANK LAB ORDER TANA Performing Organization Address City/[facility]/ZIP Co de Phone Number [facility] [place] [address] * Magnesium (03/07/2023 3:35 AM EDT) Magnesium 0.98 0.69 - 1.07 mmol/L [facility] Blood 03/07/2023 3:35 AM EDT 03/07/2023 3:55 AM EDT Narrative Resulting Agency Comment Spec In Lab Chong P Campbell MD CHEMISTRY ORDERABLE S [facility] [place] [address] * Phosphorus (03/07/2023 3:35 AM EDT) Phosphorus 3.8 2.5 - 4.5 mg/dL [facility] Blood 03/07/2023 3:35 AM EDT 03/07/2023 3:55 AM EDT Narrative Resulting Agency Comment Spec In Lab Chong Campbell MD CHEMISTRY ORDERABLE S Performing Organization Address [facility] Co de Phone Number [facility] [place] [address] * (ABNORMAL) Basic Metabolic Panel (non-fasting) (03/07/2023 3:35 AM EDT) [facility] Glucose Lvl 97 65 - 199 mg/dL [facility] Comment:Diabetes: >=200 mg/d L plus symptoms BUN 25(H) 8 - 18 mg/dL [facility] Creatinine 1.05 0.70 - 1.20 mg/dL [facility] Sodium 132(L) 135 - 145 mmol/L [facility] Potassium 3.6 3.5 - 5.0 mmol/L [facility] Comment: Please note: ??Patients with WBC >100,000 may have falsely elevated Potassium levels. ??For accurate Potassium quantification in these patients send serum separator tube (gold top) for subsequent determinations. ??Contact the Clinical Chemistry Laboratory if there are any questions. Chloride 99 98 - 107 mmol/L [facility] CO2 23 22 - 31 mmol/L [facility] Anion Gap 10 5 - 15 mmol/L [facility] Calcium 9.1 8.5 - 10.5 mg/dL [facility] Estimated GFR 56(L) >=60 mL/min/1. 73 m?? [facility] Comment: This patient's estimated GFR [...] and symptoms in addition to eGFR. Blood 03/07/2023 3:35 AM EDT 03/07/2023 3:55 AM EDT Narrative Resulting Agency Comment Spec In Lab Chong Campbell MD CHEMISTRY ORDERABLE S Performing Organization Address [facility] [place] [address] * Blood culture (03/06/2023 11:16 AM EDT) Blood Culture No growth at 5 days. [facility] Blood STRUCTURE OF RIGHT HAND / Unknown 03/06/2023 11:16 AM EDT 03/06/2023 12:45 PM EDT Comment:#2 Narrative Resulting Agency Comment Spec In Lab Brandon Crowley MD MICROBIOLOGY - BLOOD ORDERABLES Performing Organization Address [facility] [place] [address] * Blood culture (03/06/2023 11:09 AM EDT) Blood Culture No growth at 5 days. [facility] Blood ANTECUBITAL REGION STRUCTURE / Unknown 03/06/2023 11:09 AM EDT 03/06/2023 12:45 PM EDT Comment:#1 Narrative Resulting Agency Comment Spec In Lab Brandon Crowley MD MICROBIOLOGY - BLOOD ORDERABLES Performing Organization Address City/[facility]/[place] [address] * XR Chest One View (03/06/2023 8:45 AM EDT) Anatomical Region Laterality Modality Chest N/A Digital Radiogra phy Impressions 03/06/2023 8:49 AM EDT No acute pulmonary pathology. No change. Thank you for letting us participate in the care of this patient. ??If you are a health care provider and have any questions regarding this report, please contact the number below. ??For patients who have questions please contact the health personal care aid that requested your imaging first. ? Electronically signed by: Tello Moon MD, [facility] ([phone]), at 03/06/2023 8:49 AM Narrative 03/06/2023 8:49 AM EDT EXAMINATION: XR CHEST ONE VIEW CLINICAL HISTORY: new cough and fever 72yof w/ mod-severe admitted for TAVR. New cough and fever TECHNIQUE: 1 view of the chest COMPARISON: 02/09/2023 FINDINGS: The heart is normal in size. The aorta, mediastinum and pulmonary vasculature are normal. The lungs are clear. There is no effusion. There is bowing of the posterior margin of the left third rib. There is irregular calcification at the left AC joint. No change. Appearance consistent with an old injury.. Procedure Note Tello Moon III, MD - 03/06/2023 EXAMINATION: XR CHEST ONE VIEW CLINICAL HISTORY: new cough and fever 72yof w/ mod-severe admitted for TAVR. New cough and fever TECHNIQUE: 1 view of the chest COMPARISON: 02/09/2023 FINDINGS: The heart is normal in size. The aorta, mediastinum and pulmonary vasculature are normal. The lungs are clear. There is no effusion. There is bowing of the posterior margin of the left third rib. There is irregular calcification at the left AC joint. No change. Appearanceconsistent with an old injury.. IMPRESSION No acute pulmonary pathology. No change. Thank you for letting us participate in the care of this patient. If youare a health care provider and have any questions regarding this report,please contact the number below. For patients who have questions please contactthe health personal care aid that requested your imaging first. Brandon Crowley MD IMG DX ORDERABLES * Urinalysis with reflex Culture (03/06/2023 8:28 AM EDT) Glucose UA Negative Negative mg/dL [facility] Protein UA Negative Negative mg/dL [facility] Bilirubin UA Negative Negative mg/dL [facility] Comment: Clinical correlation required for positive Urine Bilirubin results as false positive may occur with some drugs and drug related products. If a false positive is suspected a serum total bilirubin should be considered if clinically indicated. Urobilinogen UA Normal Normal mg/dL [facility] pH UA 6.0 5.0 - 8.0 [facility] Blood UA Negative Negative mg/dL [facility] Ketones UA Negative Negative mg/dL [facility] Nitrite UA Negative Negative [facility] Leukocytes UA Negative Negative [facility] Appearance UA Clear Clear [facility] Spec [place] UA 1.008 1.005 - 1.030 [facility] Color UA Yellow Yellow [facility] Culture Reflexed No [facility] Urine 03/06/2023 8:28 AM EDT 03/06/2023 10:27 AM EDT Narrative Resulting Agency Comment Spec In Lab Brandon Crowley MD URINE ORDERABLES Performing Organization Address City/[facility]/ZIP Co de Phone Number [facility] [place] [address] * (ABNORMAL) Differential, Automated (03/06/2023 4:02 AM EDT) Neutrophils % 57.3 % [facility] Neutr Abs (ANC) 3.65 1.70 - 6.10 x10(3)/mc L [facility] Lymphocytes % 28.1 % [facility] Lymphocytes Abs 1.8 0.9 - 3.2 x10(3)/ L [facility] Monocytes % 13.0 % [facility] Monocyte Abs 0.8 0.3 - 0.9 x10(3)/ L [facility] Eosinophils % 0.2 % [facility] Eosinophils Abs 0.0 0.0 - 0.4 x10(3)/[facility] Basophils % 0.3 % [facility] Basophils Abs 0.0 0.0 - 0.1 x10(3)/ L [facility] Immature Gran % 1.10 % [facility] Comment: Immature granulocytes(IG's)percentage and absolute count will include metamyelocytes, myelocytes, and promyelocytes. Blood smears from CBCs yielding IG's will be scanned manually for concordance. If this scan disagrees with the automated IG or if promyelocytes are noted, a manual differential will be performed. [place] Gran Abs 0.07(H) 0.00 - 0.04 x10(3)/mc L [facility] Blood 03/06/2023 4:02 AM EDT 03/06/2023 4:43 AM EDT Narrative Resulting Agency Comment Spec In Lab Mega Gant MD HEMATOLOGY ORDERABLE S Performing Organization Address [facility]/ZIP Co de Phone Number [facility] [place] [address] * (ABNORMAL) Hemogram (03/06/2023 4:02 AM EDT) WBC 6.4 4.0 - 9.5 x10(3)/[facility] RBC 3.70(L) 4.00 - 5.21 x10(6)/[facility] Hemoglobin 12.1 11.7 - 15.5 g/dL [facility] Hematocrit 35.5(L) 35.7 - 45.8 % [facility] MCV 95.9(H) 82.6 - 94.4 [facility] MCH 32.7(H) 27.1 - 32.0 pg [facility] MCHC 34.1 31.7 - 35.0 g/dL [facility] Platelets 258 145 - 357 x10(3)/[facility] RDWSD 43.3 37.0 - 46.0 [facility] RDWCV 12.2 11.5 - 14.1 % [facility] MPV 9.7 7.6 - 12.9 [facility] nRBC % Auto 0.0 % [facility] nRBC Abs Auto 0.000 0.000 - 0.000 x10(3)/[facility] Blood 03/06/2023 4:02 AM EDT 03/06/2023 4:43 AM EDT Narrative Resulting Agency Comment Spec In Lab Mega Gant MD HEMATOLOGY ORDERABLE S [facility] [place] [address] * Magnesium (03/06/2023 4:02 AM EDT) Magnesium 0.94 0.69 - 1.07 mmol/L [facility] Blood 03/06/2023 4:02 AM EDT 03/06/2023 4:43 AM EDT Narrative Resulting Agency Comment Spec In Lab Chong Campbell MD CHEMISTRY ORDERABLE S [facility] [place] [address] * (ABNORMAL) Phosphorus (03/06/2023 4:02 AM EDT) Phosphorus 4.8(H) 2.5 - 4.5 mg/dL [facility] Blood 03/06/2023 4:02 AM EDT 03/06/2023 4:43 AM EDT Narrative Resulting Agency Comment Spec In Lab Chong Campbell MD CHEMISTRY ORDERABLE S Performing Organization Address City/[facility]/ZIP Co de Phone Number [facility] [place] [address] * (ABNORMAL) Basic Metabolic Panel (non-fasting) (03/06/2023 4:02 AM EDT) [facility] Glucose Lvl 98 65 - 199 mg/dL [facility] Comment:Diabetes: >=200 mg/d L plus symptoms BUN 27(H) 8 - 18 mg/dL [facility] Creatinine 1.23(H) 0.70 - 1.20 mg/dL [facility] Sodium 132(L) 135 - 145 mmol/L [facility] Potassium 3.7 3.5 - 5.0 mmol/L [facility] Comment: Please note: ??Patients with WBC >100,000 may have falsely elevated Potassium levels. ??For accurate Potassium quantification in these patients send serum separator tube (gold top) for subsequent determinations. ??Contact the Clinical Chemistry Laboratory if there are any questions. Chloride 95(L) 98 - 107 mmol/L [facility] CO2 23 22 - 31 mmol/L [facility] Anion Gap 14 5 - 15 mmol/L [facility] Calcium 9.5 8.5 - 10.5 mg/dL [facility] Estimated GFR 46(L) >=60 mL/min/1. 73 m?? [facility] Comment: This patient's estimated GFR [...] and symptoms in addition to eGFR. Blood 03/06/2023 4:02 AM EDT 03/06/2023 4:43 AM EDT Narrative Resulting Agency Comment Spec In Lab Chong Campbell MD CHEMISTRY ORDERABLE S Performing Organization Address City/State/[facility] Co de Phone Number [facility] [place] [address] * (ABNORMAL) Differential, Automated (03/05/2023 3:50 AM EDT) Neutrophils % 55.4 % [facility] Neutr Abs (ANC) 4.15 1.70 - 6.10 x10(3)/mc L [facility] Lymphocytes % 30.4 % [facility] Lymphocytes Abs 2.3 0.9 - 3.2 x10(3)/mc L [facility] Monocytes % 12.3 % [facility] Monocyte Abs 0.9 0.3 - 0.9 x10(3)/mc L [facility] Eosinophils % 0.1 % [facility] Eosinophils Abs 0.0 0.0 - 0.4 x10(3)/mc L [facility] Basophils % 0.5 % [facility] Basophils Abs 0.0 0.0 - 0.1 x10(3)/mc L [facility] Immature Gran % 1.30 % [facility] Comment: Immature granulocytes(IG's)percentage and absolute count will include metamyelocytes, myelocytes, and promyelocytes. Blood smears from CBCs yielding IG's will be scanned manually for concordance. If this scan disagrees with the automated IG or if promyelocytes are noted, a manual differential will be performed. [place] Gran Abs 0.10(H) 0.00 - 0.04 x10(3)/mc L [facility] Blood 03/05/2023 3:50 AM EDT 03/05/2023 4:19 AM EDT Narrative Resulting Agency Comment Spec In Lab Mega Gant MD HEMATOLOGY ORDERABLE S [facility] [place] [address] * (ABNORMAL) Hemogram (03/05/2023 3:50 AM EDT) WBC 7.5 4.0 - 9.5 x10(3)/[facility] LABORATORY RBC 3.57(L) 4.00 - 5.21 x10(6)/[facility]ATORY Hemoglobin 11.9 11.7 - 15.5 g/dL [facility] Hematocrit 35.4(L) 35.7 - 45.8 % [facility] MCV 99.2(H) 82.6 - 94.4 fL [facility] MCH 33.3(H) 27.1 - 32.0 pg [facility] MCHC 33.6 31.7 - 35.0 g/dL [facility] Platelets 228 145 - 357 x10(3)/[facility] LABORATORY RDWSD 45.3 37.0 - 46.0 [facility] LABORATORY RDWCV 12.5 11.5 - 14.1 % [facility] MPV 9.4 7.6 - 12.9 [facility] LABORATORY nRBC % Auto 0.0 % [facility] nRBC Abs Auto 0.000 0.000 - 0.000 x10(3)/mcL [facility] Blood 03/05/2023 3:50 AM EDT 03/05/2023 4:19 AM EDT Narrative Resulting Agency Comment Spec In Lab Mega Gant MD HEMATOLOGY ORDERABLE S Performing Organization Address [facility] Co de Phone Number [facility] [place] [address] * Magnesium (03/05/2023 3:50 AM EDT) Magnesium 1.03 0.69 - 1.07 mmol/L [facility] Blood 03/05/2023 3:50 AM EDT 03/05/2023 4:18 AM EDT Narrative Resulting Agency Comment Spec In Lab Chong Campbell MD CHEMISTRY ORDERABLE S Performing Organization Address [facility] Co de Phone Number [facility] [place] [address] * (ABNORMAL) Phosphorus (03/05/2023 3:50 AM EDT) Phosphorus 5.6(H) 2.5 - 4.5 mg/dL [facility] Blood 03/05/2023 3:50 AM EDT 03/05/2023 4:18 AM EDT Narrative Resulting Agency Comment Spec In Lab Chong Campbell MD CHEMISTRY ORDERABLE S Performing Organization Address [facility] Co de Phone Number [facility] [place] [address] * (ABNORMAL) Basic Metabolic Panel (non-fasting) (03/05/2023 3:50 AM EDT) Glucose Lvl 104 65 - 199 mg/dL [facility] Comment:Diabetes: >=200 mg/d L plus symptoms BUN 31(H) 8 - 18 mg/dL [facility] Creatinine 1.69(H) 0.70 - 1.20 mg/dL [facility] Sodium 133(L) 135 - 145 mmol/L [facility] Potassium 4.4 3.5 - 5.0 mmol/L [facility] Comment: Please note: ??Patients with WBC >100,000 may have falsely elevated Potassium levels. ??For accurate Potassium quantification in these patients send serum separator tube (gold top) for subsequent determinations. ??Contact the Clinical Chemistry Laboratory if there are any questions. Chloride 96(L) 98 - 107 mmol/L [facility] CO2 24 22 - 31 mmol/L [facility] Anion Gap 13 5 - 15 mmol/L [facility] Calcium 9.5 8.5 - 10.5 mg/dL [facility] Estimated GFR 31(L) >=60 mL/min/1. 73 m?? [facility] Comment: This patient's estimated GFR [...] and symptoms in addition to eGFR. Blood 03/05/2023 3:50 AM EDT 03/05/2023 4:18 AM EDT Narrative Resulting Agency Comment Spec In Lab Chong Campbell MD CHEMISTRY ORDERABLE S [facility] [place] [address] * Troponin (03/04/2023 10:45 PM EDT) Troponin-T HS 13 <=14 ng/L [facility] Comment: This patient's troponin T concentration was determined using the [employer] 5th Generation troponin T assay. The 99th percentile for Troponin T for this test is 14 ng/L for females, and 22 ng/L for males. According to the fourth universal definition of myocardial infarction, the term acute myocardial infarction should be used when there is acute myocardial injury with clinical evidence of acute myocardial ischemia and with detection of a rise and/or fall of cardiac troponin values with at least one value above the 99th percentile and at least one of the following: - Symptoms of myocardial ischemia; - New ischemic ECG changes; - Development of pathological Q waves; - Imaging evidence of new loss of viable myocardium or new regional wall motion abnormality in a pattern consistent with an ischemic etiology; - Identification of a coronary thrombus by angiography or autopsy (not for type 2 or 3 MIs) Serial measurement of troponin and the change in troponin concentration over time (delta) is crucial for the diagnosis of acute myocardial infarction. Guidance on the interpretation of the new 5th Generation Troponin T values and the delta troponin value can be found in the [facility] Test Catalog Troponin - [facility] Test Catalog Reference: Fourth Fence Definition of Myocardial Infarction. Journal of the [place] [employer] 2018;72:5784-0157 Blood 03/04/2023 10:4 5 PM EDT 03/04/2023 10:49 PM EDT Narrative Resulting Agency Comment Spec In Lab Brandon Crowley MD CHEMISTRY ORDERABLES [facility] [place] [address] * EKG 12 Lead (03/04/2023 8:24 PM EDT) Ventricular rate 66 BPM MUSE SYSTEM Atrial Rate 66 BPM MUSE SYSTEM P-R Interval 148 ms MUSE SYSTEM QRS Duration 134 ms MUSE SYSTEM Q-T Interval 454 ms MUSE SYSTEM QTC Calculated (Bezet) 475 ms MUSE SYSTEM Calculated P Ellis 63 degrees MUSE SYSTEM Calculated R Ellis -64 degrees MUSE SYSTEM Calculated T Ellis 26 degrees MUSE SYSTEM INTERPRETATION Normal sinus rhythm Right bundle branch block Left anterior fascicular block Bifascicular block Abnormal ECG When compared with ECG of 01-MAR-2023 13:52, No significant change was found Confirmed by MD Benny, Juan Ramon Leon ([id number]) on 03/05/2023 11:52:50 AM MUSE SYSTEM 03/04/2023 8:24 PM EDT 03/05/2023 11:52 AM EDT Gregorio Goodman MD ECG ORDERABLES MUSE SYSTEM * Troponin (03/04/2023 8:10 PM EDT) Troponin-T HS 11 <=14 ng/L [facility] Comment: This patient's troponin T concentration was determined using the [employer] 5th Generation troponin T assay. The 99th percentile for Troponin T for this test is 14 ng/L for females, and 22 ng/L for males. According to the fourth universal definition of myocardial infarction, the term acute myocardial infarction should be used when there is acute myocardial injury with clinical evidence of acute myocardial ischemia and with detection of a rise and/or fall of cardiac troponin values with at least one value above the 99th percentile and at least one of the following: - Symptoms of myocardial ischemia; - New ischemic ECG changes; - Development of pathological Q waves; - Imaging evidence of new loss of viable myocardium or new regional wall motion abnormality in a pattern consistent with an ischemic etiology; - Identification of a coronary thrombus by angiography or autopsy (not for type 2 or 3 MIs) Serial measurement of troponin and the change in troponin concentration over time (delta) is crucial for the diagnosis of acute myocardial infarction. Guidance on the interpretation of the new 5th Generation Troponin T values and the delta troponin value can be found in the [facility] Test Catalog Troponin - [facility] Test Catalog Reference: Fourth Fence Definition of Myocardial Infarction. Journal of the [place] [employer] 2018;72:3630-9803 Blood 03/04/2023 8:10 PM EDT 03/04/2023 8:18 PM EDT Narrative Resulting Agency Comment Spec In Lab Brandon Crowley MD CHEMISTRY ORDERABLES [facility] [place] [address] * (ABNORMAL) Differential, Automated (03/04/2023 5:17 AM EDT) Neutrophils % 67.7 % [facility] Neutr Abs (ANC) 5.10 1.70 - 6.10 x10(3)/ L [facility] Lymphocytes % 21.0 % [facility] Lymphocytes Abs 1.6 0.9 - 3.2 x10(3)/[facility] LABORATORY Monocytes % 9.3 % [facility] Monocyte Abs 0.7 0.3 - 0.9 x10(3)/[facility] LABORATORY Eosinophils % 0.3 % [facility] Eosinophils Abs 0.0 0.0 - 0.4 x10(3)/[facility] LABORATORY Basophils % 0.5 % [facility] Basophils Abs 0.0 0.0 - 0.1 x10(3)/[facility] LABORATORY Immature Gran % 1.20 % [facility] Comment: Immature granulocytes(IG's)percentage and absolute count will include metamyelocytes, myelocytes, and promyelocytes. Blood smears from CBCs yielding IG's will be scanned manually for concordance. If this scan disagrees with the automated IG or if promyelocytes are noted, a manual differential will be performed. [place] Gran Abs 0.09(H) 0.00 - 0.04 x10(3)/[facility] LABORATORY Blood 03/04/2023 5:17 AM EDT 03/04/2023 5:29 AM EDT Narrative Resulting Agency Comment Spec In Lab Mega Gant MD HEMATOLOGY ORDERABLE S [facility] [place] [address] * (ABNORMAL) Hemogram (03/04/2023 5:17 AM EDT) WBC 7.5 4.0 - 9.5 x10(3)/[facility] LABORATORY RBC 3.71(L) 4.00 - 5.21 x10(6)/[facility] LABORATORY Hemoglobin 12.1 11.7 - 15.5 g/dL [facility] Hematocrit 36.6 35.7 - 45.8 % [facility] MCV 98.7(H) 82.6 - 94.4 [facility] LABORATORY MCH 32.6(H) 27.1 - 32.0 pg [facility] MCHC 33.1 31.7 - 35.0 g/dL [facility] Platelets 254 145 - 357 x10(3)/[facility] LABORATORY RDWSD 45.9 37.0 - 46.0 [facility] LABORATORY RDWCV 12.7 11.5 - 14.1 % [facility] MPV 9.1 7.6 - 12.9 [facility] LABORATORY nRBC % Auto 0.0 % [facility] nRBC Abs Auto 0.000 0.000 - 0.000 x10(3)/[facility] LAB[facility]ORY Blood 03/04/2023 5:17 AM EDT 03/04/2023 5:29 AM EDT Narrative Resulting Agency Comment Spec In Lab Mega Gant MD HEMATOLOGY ORDERABLE S Performing Organization Address City/[facility]/ZIP Co de Phone Number [facility] [place] [address] * Magnesium (03/04/2023 5:17 AM EDT) Magnesium 0.98 0.69 - 1.07 mmol/L [facility] Blood 03/04/2023 5:17 AM EDT 03/04/2023 5:29 AM EDT Narrative Resulting Agency Comment Spec In Lab Chong Campbell MD CHEMISTRY ORDERABLE S Performing Organization Address City/[facility]/ZIP Co de Phone Number [facility] [place] [address] * (ABNORMAL) Phosphorus (03/04/2023 5:17 AM EDT) Phosphorus 4.6(H) 2.5 - 4.5 mg/dL [facility] Blood 03/04/2023 5:17 AM EDT 03/04/2023 5:29 AM EDT Narrative Resulting Agency Comment Spec In Lab Chong Campbell MD CHEMISTRY ORDERABLE S [facility] [place] [address] * (ABNORMAL) Basic Metabolic Panel (non-fasting) (03/04/2023 5:17 AM EDT) Glucose Lvl 113 65 - 199 mg/dL [facility] Comment:Diabetes: >=200 mg/d L plus symptoms BUN 22(H) 8 - 18 mg/dL [facility] Creatinine 1.21(H) 0.70 - 1.20 mg/dL [facility] Sodium 132(L) 135 - 145 mmol/L [facility] Potassium 3.9 3.5 - 5.0 mmol/L [facility] Comment: Please note: ??Patients with WBC >100,000 may have falsely elevated Potassium levels. ??For accurate Potassium quantification in these patients send serum separator tube (gold top) for subsequent determinations. ??Contact the Clinical Chemistry Laboratory if there are any questions. Chloride 95(L) 98 - 107 mmol/L [facility] CO2 27 22 - 31 mmol/L [facility] Anion Gap 10 5 - 15 mmol/L [facility] Calcium 9.6 8.5 - 10.5 mg/dL [facility] Estimated GFR 47(L) >=60 mL/min/1. 73 m?? [facility] Comment: This patient's estimated GFR [...] and symptoms in addition to eGFR. Blood 03/04/2023 5:17 AM EDT 03/04/2023 5:29 AM EDT Narrative Resulting Agency Comment Spec In Lab Chong Campbell MD CHEMISTRY ORDERABLE S [facility] [place] [address] * (ABNORMAL) Differential, Automated (03/03/2023 4:07 AM EDT) Neutrophils % 64.1 % [facility] Neutr Abs (ANC) 5.71 1.70 - 6.10 x10(3)/mc L [facility] Lymphocytes % 24.8 % [facility] Lymphocytes Abs 2.2 0.9 - 3.2 x10(3)/mc [facility] Monocytes % 10.0 % [facility] Monocyte Abs 0.9 0.3 - 0.9 x10(3)/mc [facility] Eosinophils % 0.1 % [facility] Eosinophils Abs 0.0 0.0 - 0.4 x10(3)/mc L [facility] Basophils % 0.3 % [facility] Basophils Abs 0.0 0.0 - 0.1 x10(3)/mc L [facility] Immature Gran % 0.70 % [facility] Comment: Immature granulocytes(IG's)percentage and absolute count will include metamyelocytes, myelocytes, and promyelocytes. Blood smears from CBCs yielding IG's will be scanned manually for concordance. If this scan disagrees with the automated IG or if promyelocytes are noted, a manual differential will be performed. [place] Gran Abs 0.06(H) 0.00 - 0.04 x10(3)/mc L [facility] Blood 03/03/2023 4:07 AM EDT 03/03/2023 4:43 AM EDT Narrative Resulting Agency Comment Spec In Lab Mega Gant MD HEMATOLOGY ORDERABLE S [facility] [place] [address] * (ABNORMAL) Hemogram (03/03/2023 4:07 AM EDT) WBC 8.9 4.0 - 9.5 x10(3)/[facility] LABORATORY RBC 3.70(L) 4.00 - 5.21 x10(6)/[facility] LAB[facility]ORY Hemoglobin 12.0 11.7 - 15.5 g/dL [facility] Hematocrit 37.2 35.7 - 45.8 % [facility] MCV 100.5(H) 82.6 - 94.4 fL [facility] MCH 32.4(H) 27.1 - 32.0 pg [facility] MCHC 32.3 31.7 - 35.0 g/dL [facility] Platelets 258 145 - 357 x10(3)/[facility] LABORATORY RDWSD 47.8(H) 37.0 - 46.0 fL [facility] RDWCV 12.8 11.5 - 14.1 % [facility] MPV 9.3 7.6 - 12.9 fL [facility] nRBC % Auto 0.0 % [facility] nRBC Abs Auto 0.000 0.000 - 0.000 x10(3)/[facility] Blood 03/03/2023 4:07 AM EDT 03/03/2023 4:43 AM EDT Narrative Resulting Agency Comment Spec In Lab Mega Gant MD HEMATOLOGY ORDERABLE S Performing Organization Address [facility]/ZIP Co de Phone Number [facility] [place] [address] * Magnesium (03/03/2023 4:07 AM EDT) Magnesium 0.96 0.69 - 1.07 mmol/L [facility] Blood 03/03/2023 4:07 AM EDT 03/03/2023 4:43 AM EDT Narrative Resulting Agency Comment Spec In Lab Chong Campbell MD CHEMISTRY ORDERABLE S Performing Organization Address [facility] Co de Phone Number [facility] [place] [address] * (ABNORMAL) Phosphorus (03/03/2023 4:07 AM EDT) Phosphorus 4.6(H) 2.5 - 4.5 mg/dL [facility] Blood 03/03/2023 4:07 AM EDT 03/03/2023 4:43 AM EDT Narrative Resulting Agency Comment Spec In Lab Chong Campbell MD CHEMISTRY ORDERABLE S Performing Organization Address [facility] Co de Phone Number [facility] [place] [address] * (ABNORMAL) Basic Metabolic Panel (non-fasting) (03/03/2023 4:07 AM EDT) Glucose Lvl 97 65 - 199 mg/dL [facility] Comment:Diabetes: >=200 mg/d L plus symptoms BUN 18 8 - 18 mg/dL [facility] Creatinine 1.01 0.70 - 1.20 mg/dL [facility] Sodium 138 135 - 145 mmol/L [facility] Potassium 4.3 3.5 - 5.0 mmol/L [facility] Comment: Please note: ??Patients with WBC >100,000 may have falsely elevated Potassium levels. ??For accurate Potassium quantification in these patients send serum separator tube (gold top) for subsequent determinations. ??Contact the Clinical Chemistry Laboratory if there are any questions. Chloride 103 98 - 107 mmol/L [facility] CO2 22 22 - 31 mmol/L [facility] Anion Gap 13 5 - 15 mmol/L [facility] Calcium 9.4 8.5 - 10.5 mg/dL [facility] Estimated GFR 58(L) >=60 mL/min/1. 73 m?? [facility] Comment: This patient's estimated GFR [...] and symptoms in addition to eGFR. Blood 03/03/2023 4:07 AM EDT 03/03/2023 4:43 AM EDT Narrative Resulting Agency Comment Spec In Lab Chong Campbell MD CHEMISTRY ORDERABLE S Performing Organization Address City/[facility]/ZIP Co de Phone Number [facility] [place] [address] * (ABNORMAL) Vitamin B12 (03/03/2023 4:07 AM EDT) Vitamin B-12 1,348(H) 232 - 1,245 pg/mL [facility] Blood 03/03/2023 4:07 AM EDT 03/03/2023 4:43 AM EDT Narrative Resulting Agency Comment Spec In Lab Chong Campbell MD CHEMISTRY ORDERABLE S Performing Organization Address City/[facility]/ZIP Co de Phone Number [facility] [place] [address] * (ABNORMAL) Differential, Automated (03/02/2023 4:09 AM EDT) Neutrophils % 69.7 % [facility] Neutr Abs (ANC) 6.12(H) 1.70 - 6.10 x10(3)/[facility] LABORATORY Lymphocytes % 20.4 % [facility] Lymphocytes Abs 1.8 0.9 - 3.2 x10(3)/[facility]ORATORY Monocytes % 8.5 % [facility] Monocyte Abs 0.8 0.3 - 0.9 x10(3)/[facility] LABORATORY Eosinophils % 0.2 % [facility] Eosinophils Abs 0.0 0.0 - 0.4 x10(3)/[facility] LABORATORY Basophils % 0.5 % [facility] Basophils Abs 0.0 0.0 - 0.1 x10(3)/[facility] LABORATORY Immature Gran % 0.70 % [facility] Comment: Immature granulocytes(IG's)percentage and absolute count will include metamyelocytes, myelocytes, and promyelocytes. Blood smears from CBCs yielding IG's will be scanned manually for concordance. If this scan disagrees with the automated IG or if promyelocytes are noted, a manual differential will be performed. [place] Gran Abs 0.06(H) 0.00 - 0.04 x10(3)/[facility] LABORATORY Blood 03/02/2023 4:09 AM EDT 03/02/2023 4:17 AM EDT Narrative Resulting Agency Comment Spec In Lab Mega Gant MD HEMATOLOGY ORDERABLE S [facility] [place] [address] * (ABNORMAL) Hemogram (03/02/2023 4:09 AM EDT) WBC 8.8 4.0 - 9.5 x10(3)/[facility] LABORATORY RBC 3.38(L) 4.00 - 5.21 x10(6)/[facility] LABORATORY Hemoglobin 11.0(L) 11.7 - 15.5 g/dL [facility] Hematocrit 34.3(L) 35.7 - 45.8 % [facility] MCV 101.5(H) 82.6 - 94.4 fL [facility] MCH 32.5(H) 27.1 - 32.0 pg [facility] MCHC 32.1 31.7 - 35.0 g/dL [facility] Platelets 250 145 - 357 x10(3)/[facility] LABORATORY RDWSD 49.0(H) 37.0 - 46.0 [facility] RDWCV 13.1 11.5 - 14.1 % [facility] MPV 9.1 7.6 - 12.9 [facility] LABORATORY nRBC % Auto 0.0 % [facility] nRBC Abs Auto 0.000 0.000 - 0.000 x10(3)/[facility] LABORATORY Blood 03/02/2023 4:09 AM EDT 03/02/2023 4:17 AM EDT Narrative Resulting Agency Comment Spec In Lab Mega Gant MD HEMATOLOGY ORDERABLE S Performing Organization Address City/State/[facility] Co de Phone Number [facility] [place] [address] * Magnesium (03/02/2023 4:09 AM EDT) Magnesium 0.96 0.69 - 1.07 mmol/L [facility] Blood 03/02/2023 4:09 AM EDT 03/02/2023 4:17 AM EDT Narrative Resulting Agency Comment Spec In Lab Chong Campbell MD CHEMISTRY ORDERABLE S [facility] [place] [address] * Phosphorus (03/02/2023 4:09 AM EDT) Phosphorus 3.9 2.5 - 4.5 mg/dL [facility] Blood 03/02/2023 4:09 AM EDT 03/02/2023 4:17 AM EDT Narrative Resulting Agency Comment Spec In Lab Chong Campbell MD CHEMISTRY ORDERABLE S [facility] [place] [address] * Basic Metabolic Panel (non-fasting) (03/02/2023 4:09 AM EDT) Pathologist [facility] Glucose Lvl 99 65 - 199 mg/dL [facility] Comment:Diabetes: >=200 mg/d L plus symptoms BUN 15 8 - 18 mg/dL [facility] Creatinine 0.96 0.70 - 1.20 mg/dL [facility] Sodium 138 135 - 145 mmol/L [facility] Potassium 4.3 3.5 - 5.0 mmol/L [facility] Comment: Please note: ??Patients with WBC >100,000 may have falsely elevated Potassium levels. ??For accurate Potassium quantification in these patients send serum separator tube (gold top) for subsequent determinations. ??Contact the Clinical Chemistry Laboratory if there are any questions. Chloride 104 98 - 107 mmol/L [facility] CO2 26 22 - 31 mmol/L [facility] Anion Gap 8 5 - 15 mmol/L [facility] Calcium 9.2 8.5 - 10.5 mg/dL [facility] Estimated GFR 62 >=60 mL/min/1. 73 m?? [facility] Comment: This patient's estimated GFR [...] and symptoms in addition to eGFR. Blood 03/02/2023 4:09 AM EDT 03/02/2023 4:17 AM EDT Narrative Resulting Agency Comment Spec In Lab Chong Campbell MD CHEMISTRY ORDERABLE S [facility] [place] [address] * (ABNORMAL) Differential, Automated (03/01/2023 4:48 PM EDT) Neutrophils % 60.9 % [facility] Neutr Abs (ANC) 4.51 1.70 - 6.10 x10(3)/mc L [facility] Lymphocytes % 27.2 % [facility] Lymphocytes Abs 2.0 0.9 - 3.2 x10(3)/mc L [facility] Monocytes % 10.2 % [facility] Monocyte Abs 0.8 0.3 - 0.9 x10(3)/mc L [facility] Eosinophils % 0.5 % [facility] Eosinophils Abs 0.0 0.0 - 0.4 x10(3)/mc L [facility] Basophils % 0.5 % [facility] Basophils Abs 0.0 0.0 - 0.1 x10(3)/mc L [facility] Immature Gran % 0.70 % [facility] [facility] Comment: Immature granulocytes(IG's)percentage and absolute count will include metamyelocytes, myelocytes, and promyelocytes. Blood smears from CBCs yielding IG's will be scanned manually for concordance. If this scan disagrees with the automated IG or if promyelocytes are noted, a manual differential will be performed. [place] Gran Abs 0.05(H) 0.00 - 0.04 x10(3)/ L [facility] Blood 03/01/2023 4:48 PM EDT 03/01/2023 5:03 PM EDT Narrative Resulting Agency Comment Spec In Lab Mega Gant MD HEMATOLOGY ORDERABLE S [facility] [place] [address] * (ABNORMAL) Hemogram (03/01/2023 4:48 PM EDT) WBC 7.4 4.0 - 9.5 x10(3)/[facility] RBC 3.60(L) 4.00 - 5.21 x10(6)/[facility] Hemoglobin 11.7 11.7 - 15.5 g/dL [facility] Hematocrit 36.2 35.7 - 45.8 % [facility] MCV 100.6(H) 82.6 - 94.4 fL [facility] MCH 32.5(H) 27.1 - 32.0 pg [facility] MCHC 32.3 31.7 - 35.0 g/dL [facility] Platelets 276 145 - 357 x10(3)/[facility] LAB[facility]ORY RDWSD 48.9(H) 37.0 - 46.0 [facility] LABORATORY RDWCV 13.2 11.5 - 14.1 % [facility] MPV 9.2 7.6 - 12.9 [facility]ORY nRBC % Auto 0.0 % [facility] nRBC Abs Auto 0.000 0.000 - 0.000 x10(3)/[facility] Blood 03/01/2023 4:48 PM EDT 03/01/2023 5:03 PM EDT Narrative Resulting Agency Comment Spec In Lab Mega Gant MD HEMATOLOGY ORDERABLE S [facility] [place] [address] * Magnesium (03/01/2023 4:48 PM EDT) Magnesium 0.93 0.69 - 1.07 mmol/L [facility] Blood 03/01/2023 4:48 PM EDT 03/01/2023 5:03 PM EDT Narrative Resulting Agency Comment Spec In Lab Chong Campbell MD CHEMISTRY ORDERABLE S Performing Organization Address City/[facility]/ZIP Co de Phone Number [facility] [place] [address] * Phosphorus (03/01/2023 4:48 PM EDT) Phosphorus 4.1 2.5 - 4.5 mg/dL [facility] Blood 03/01/2023 4:48 PM EDT 03/01/2023 5:03 PM EDT Narrative Resulting Agency Comment Spec In Lab Chong Campbell MD CHEMISTRY ORDERABLE S Performing Organization Address City/[facility]/ZIP Co de Phone Number [facility] [place] [address] * Basic Metabolic Panel (non-fasting) (03/01/2023 4:48 PM EDT) Glucose Lvl 83 65 - 199 mg/dL [facility] Comment:Diabetes: >=200 mg/d L plus symptoms BUN 14 8 - 18 mg/dL [facility] Creatinine 0.99 0.70 - 1.20 mg/dL [facility] Sodium 140 135 - 145 mmol/L [facility] Potassium 4.3 3.5 - 5.0 mmol/L [facility] Comment: Please note: ??Patients with WBC >100,000 may have falsely elevated Potassium levels. ??For accurate Potassium quantification in these patients send serum separator tube (gold top) for subsequent determinations. ??Contact the Clinical Chemistry Laboratory if there are any questions. Chloride 103 98 - 107 mmol/L [facility] CO2 26 22 - 31 mmol/L [facility] Anion Gap 11 5 - 15 mmol/L [facility] Calcium 9.5 8.5 - 10.5 mg/dL [facility] Estimated GFR 60 >=60 mL/min/1. 73 m?? [facility] Comment: This patient's estimated GFR [...] and symptoms in addition to eGFR. Blood 03/01/2023 4:48 PM EDT 03/01/2023 5:03 PM EDT Narrative Resulting Agency Comment Spec In Lab Chong Campbell MD CHEMISTRY ORDERABLE S Performing Organization Address City/State/[facility] Co de Phone Number [facility] [place] [address] * ECHO COMPLETE (03/01/2023 4:42 PM EDT) Anatomical Region Laterality Modality Cardiac Other 03/01/2023 4:11 PM EDT Narrative 03/01/2023 5:00 PM EDT ? Echocardiogram Report Name: LINDSEY DELEON D ? Study Date: 03/01/2023 04:11 PMBP: 169/82 mmHg ? Patient Location: [facility] [id number] A HR: 70 : 1950 ? Height: 160 cm ? Account: [id number] Age: 72 yrs ? Weight: 79 kg Gender: Female ?BSA: 1.8 m2 Ordering Physician: MARC^P Referring Physician: ALEXANDER GAMEZ Performed By: Gianna Freedman RDCS Reason For Study: Aortic valve stenosis Exam Location: [facility]. Interpretation Summary Left ventricle is of normal size. Wall thickness is mildly increased. Left ventricular systolic function is normal. The left ventricular ejection fraction is 70% by Bailey's biplane. There are no segmental wall motion abnormalities. The right ventricle is of normal size. Right ventricular systolic function is normal. There is moderate to severe aortic stenosis. The mean gradient across the aortic valve is 29. The aortic valve area calculated using the continuity equation is 0.84 cm2. The mitral valve leaflets are thickened. There is heavy posterior mitral annular calcification. The estimated mean gradient across the mitral valve is 5 mmHg. There is mild to moderate mitral regurgitation. Procedure Complete-92458. Satisfactory quality. There is normal sinus rhythm. Left Ventricle Left ventricle is of normal size. There is no ventricular septal defect. Wall thickness is mildly increased. Left ventricular systolic function is normal. The left ventricular ejection fraction is 70% by Bailey's biplane. There are no segmental wall motion abnormalities. Right Ventricle The right ventricle is of normal size. Right ventricular systolic function is normal. Left Atrium The left atrium is mildly dilated. Right Atrium The right atrium is normal. Aortic Valve The aortic valve is tricuspid. The aortic valve is moderately calcified. There is moderate to severe aortic stenosis. The peak instantaneous gradient across the aortic valve is 51 mmHg. The mean gradient across the aortic valve is 29. The aortic valve area calculated using the continuity equation is 0.84 cm2. There is mild aortic regurgitation. Mitral Valve The mitral valve leaflets are thickened. There is heavy posterior mitral annular calcification. The estimated mean gradient across the mitral valve is 5 mmHg. Heart rate: 70 beats per minute. There is mild to moderate mitral regurgitation. Tricuspid Valve The tricuspid valve is structurally normal. There is mild tricuspid regurgitation. Pulmonic Valve The pulmonic valve appears to be structurally and functionally normal. Great Arteries The aortic root is of normal size. No abnormalities are identified. Venous Inferior vena cava is normal in size. Inferior vena cava collapse greater than 50% with respiration. Pericardium/Pleural The pericardium appears normal. Hemodynamics The peak right ventricular systolic pressure is 28 mmHg. The estimated right atrial pressure is 3mmHg. There is Grade II LV diastolic dysfunction (abnormal relaxation with elevated left ventricular filling pressure). Ejection Fraction ?2D Measurements ? Volumes EF(MOD-bp): 70.0 % ?IVSd: 1.2 cm ? LAV(MOD- bp) Indexed: ?LVIDd: 4.6 cm ?LVIDs: 2.7 cm ?35.4 ml/m2 ?LVPWd: 1.2 cm ?RA A4Cs_phl: 10.6 cm2 ? EDV (MOD-bp) Index: 53.9 ?LV mass(C)d: 202.8 grams ? ESV (MOD-bp) Index: 16.1 ?LV mass(C)dI: 111.2 grams/m2 ?? SV(LVOT): 73.4 ml ?Ao root diam: 3.1 cm ? LV Stroke Volume: 73.4 ml ?Ao root diam index: 1.7 ?asc Aorta Diam: 3.1 cm ? SI(LVOT): 40.3 ml/m2 ?LVOT diam: 2.0 cm Doppler TR max jessy: 250.6 cm/sec LV V1 VTI: 23.8 cm LVOT max Velocity: 100.7 cm/sec Ao V2 VTI: 87.7 cm Ao Max: 358.2 cm/sec Ao valve max: 51.3 mmHg Ao valve mean: 28.8 mmHg MV E max jessy: 183.4 cm/sec MV A max jessy: 131.5 cm/sec MV E/A: 1.4 MV dec time: 0.33 sec Lat Peak E' Jessy: 9.2 cm/sec E/ e' (lat): 20.0 Med Peak E' Jessy: 5.8 cm/sec E/e' (med): 31.4 E/e' Average: 25.7 AUREA(I,D): 0.84 cm2 Dimensionless index Aov: 0.27 MV mean P.4 mmHg I ?WMSI = 1.00 ? % Normal = 100 ?Segments ??Size X - Cannot ?2 - ?4 - ?1-2 ? small Interpret ?1 - Normal ?? Hypokinetic 3 - Akinetic Dyskinetic ?? 3-5 ? moderate 5 - ? 6-14 ?large Aneurysmal ?15-16 ?? diffuse Procedure Note Kwasi Asencio MD - 03/01/2023 Echocardiogram Report Name: DELEONLINDSEY Study Date: 304:11 PMBP: 169/82 mmHg Patient Location: [address] HR: 70 : 1950 Height: 160 cm Account: [id number] Age: 72 yrs Weight: 79 kg Gender: Female BSA: 1.8 m2 Ordering Physician: MARC^Brittany Referring Physician: ALEXANDER GAMEZ Performed By: Gianna Freedman RDCS Reason For Study: Aortic valve stenosis Exam Location: [facility]. Interpretation Summary Left ventricle is of normal size. Wall thickness is mildly increased.Left ventricular systolic function is normal. The left ventricular ejectionfraction is 70% by Bailey's biplane. There are no segmental wall motionabnormalities. The right ventricle is of normal size. Right ventricular systolic functionis normal. There is moderate to severe aortic stenosis. The mean gradient across theaortic valve is 29. The aortic valve area calculated using the continuityequation is 0.84 cm2. The mitral valve leaflets are thickened. There is heavy posterior mitralannular calcification. The estimated mean gradient across the mitral valve is 5mmHg. There is mild to moderate mitral regurgitation. Procedure Complete-22030. Satisfactory quality. There is normal sinus rhythm. Left Ventricle Left ventricle is of normal size. There is no ventricular septal defect.Wall thickness is mildly increased. Left ventricular systolic function isnormal. The left ventricular ejection fraction is 70% by Bailey's biplane. There areno segmental wall motion abnormalities. Right Ventricle The right ventricle is of normal size. Right ventricular systolic functionis normal. Left Atrium The left atrium is mildly dilated. Right Atrium The right atrium is normal. Aortic Valve The aortic valve is tricuspid. The aortic valve is moderately calcified.There is moderate to severe aortic stenosis. The peak instantaneous gradient acrossthe aortic valve is 51 mmHg. The mean gradient across the aortic valve is 29.The aortic valve area calculated using the continuity equation is 0.84 cm2.There is mild aortic regurgitation. Mitral Valve The mitral valve leaflets are thickened. There is heavy posterior mitralannular calcification. The estimated mean gradient across the mitral valve is 5mmHg. Heart rate: 70 beats per minute. There is mild to moderate mitralregurgitation. Tricuspid Valve The tricuspid valve is structurally normal. There is mild tricuspidregurgitation. Pulmonic Valve The pulmonic valve appears to be structurally and functionally normal. Great Arteries The aortic root is of normal size. No abnormalities are identified. Venous Inferior vena cava is normal in size. Inferior vena cava collapse greaterthan 50% with respiration. Pericardium/Pleural The pericardium appears normal. Hemodynamics The peak right ventricular systolic pressure is 28 mmHg. The estimatedright atrial pressure is 3mmHg. There is Grade II LV diastolic dysfunction(abnormal relaxation with elevated left ventricular filling pressure). Ejection Fraction 2D Measurements Volumes EF(MOD-bp): 70.0 % IVSd: 1.2 cm LAV(MOD-bp)Indexed: LVIDd: 4.6 cm LVIDs: 2.7 cm 35.4 ml/m2 LVPWd: 1.2 cm RA A4Cs_phl: 10.6cm2 EDV (MOD-bp)Index: 53.9 LV mass(C)d: 202.8 grams ESV (MOD-bp)Index: 16.1 LV mass(C)dI: 111.2 grams/m2 SV(LVOT): 73.4ml Ao root diam: 3.1 cm LV Stroke Volume:73.4 ml Ao root diam index: 1.7 asc Aorta Diam: 3.1 cm SI(LVOT): 40.3ml/m2 LVOT diam: 2.0 cm Doppler TR max jessy: 250.6 cm/sec LV V1 VTI: 23.8 cm LVOT max Velocity: 100.7 cm/sec Ao V2 VTI: 87.7 cm Ao Max: 358.2 cm/sec Ao valve max: 51.3 mmHg Ao valve mean: 28.8 mmHg MV E max jessy: 183.4 cm/sec MV A max jessy: 131.5 cm/sec MV E/A: 1.4 MV dec time: 0.33 sec Lat Peak E' Jessy: 9.2 cm/sec E/ e' (lat): 20.0 Med Peak E' Jessy: 5.8 cm/sec E/e' (med): 31.4 E/e' Average: 25.7 AUREA(I,D): 0.84 cm2 Dimensionless index Aov: 0.27 MV mean P.4 mmHg I WMSI = 1.00 % Normal = 100 SegmentsSize X - Cannot 2 - 4 - 1-2small Interpret 1 - Normal Hypokinetic 3 - Akinetic Dyskinetic 3-5moderate 5 - 6-14large Aneurysmal 15-16diffuse Chong Campbell MD ECHO ORDERABLES * EKG 12 Lead (03/01/2023 1:52 PM EDT) Ventricular rate 68 BPM MUSE SYSTEM Atrial Rate 68 BPM MUSE SYSTEM P-R Interval 142 ms MUSE SYSTEM QRS Duration 132 ms MUSE SYSTEM Q-T Interval 446 ms MUSE SYSTEM QTC Calculated (Bezet) 474 ms MUSE SYSTEM Calculated P Ellis 62 degrees MUSE SYSTEM Calculated R Ellis -59 degrees MUSE SYSTEM Calculated T Ellis 18 degrees MUSE SYSTEM INTERPRETATION Normal sinus rhythm Right bundle branch block Left anterior fascicular block Bifascicular block Abnormal ECG When compared with ECG of 31-JAN-2023 11:34, No significant change was found Confirmed by MD DAVID, MARTIR ([id number]) on 03/01/2023 9:32:34 PM MUSE SYSTEM 03/01/2023 1:52 PM EDT 03/01/2023 9:32 PM EDT Chong Campbell MD ECG ORDERABLES MUSE SYSTEM documented in this encounter Visit Diagnoses Not on filedocumented in this encounter Admitting Diagnoses Diagnosis Aortic stenosis Aortic valve disorders documented in this encounter Administered Medications Inactive Administered Medications - up to 3 most recent administrations Medication Order MAR Action Action Date Dose Rate Site acetaminophen (Tylenol) tablet 1,000 mg 1,000 mg, Oral, EVERY 6 HOURS PRN, Starting on Mon03/07/23 at 1844, Until Mon03/08/23 at 1523, Pain, For pain when taking by mouth. Maximum dose of acetaminophen is 4,000 mg from all sources in 24 hours. When ordered for pain, acetaminophen should be given even when other ordered pain medications are indicated., Routine Given 03/08/2023 5:58 AM EDT 1,000 mg amLODIPine (Norvasc) tablet 10 mg 10 mg, Oral, DAILY, First dose (after last modification) on Mon03/03/23 at 0900, Until Discontinued, Routine Given 03/08/2023 9:14 AM EDT 10 mg Given 03/07/2023 8:53 AM EDT 10 mg Given 03/06/2023 8:08 AM EDT 10 mg aspirin EC tablet 325 mg 325 mg, Oral, DAILY, First dose on Mon03/01/23 at 1600, Until Discontinued, Routine Given 03/08/2023 8:23 AM EDT 325 mg Given 03/07/2023 8:53 AM EDT 325 mg Given 03/06/2023 8:08 AM EDT 325 mg buPROPion SR (Wellbutrin SR) tablet 150 mg 150 mg, Oral, DAILY, First dose on Mon03/02/23 at 0900, Until Discontinued, DO NOT CRUSH OR OPEN, Routine Given 03/08/2023 8:23 AM EDT 150 mg Given 03/07/2023 8:53 AM EDT 150 mg Given 03/06/2023 8:08 AM EDT 150 mg citalopram (CeleXA) tablet 40 mg 40 mg, Oral, DAILY, First dose on Mon03/02/23 at 0900, Until Discontinued, Routine Given 03/08/2023 8:23 AM EDT 40 mg Given 03/07/2023 8:53 AM EDT 40 mg Given 03/06/2023 8:08 AM EDT 40 mg ezetimibe (Zetia) tablet 10 mg 10 mg, Oral, EVERY EVENING, First dose (after last modification) on Mon03/01/23 at 2000, Until Discontinued, Routine Given 03/06/2023 5:08 PM EDT 10 mg Given 03/05/2023 5:36 PM EDT 10 mg Given 03/04/2023 5:12 PM EDT 10 mg hydroCHLOROthiazide (Hydrodiuril) tablet 25 mg 25 mg, Oral, DAILY, First dose on Mon03/02/23 at 0900, Until Discontinued, Routine Given 03/08/2023 9:14 AM EDT 25 mg Given 03/07/2023 8:53 AM EDT 25 mg Given 03/06/2023 8:08 AM EDT 25 mg iohexoL (Omnipaque) (350 mg/mL) solution ONCE PRN, Starting on Mon03/07/23 at 1511, Until Mon03/07/23 at 1516, Intra-Operative (Intra-Procedure), Routine Given 03/07/2023 3:11 PM EDT 72 mLs levothyroxine (Synthroid) tablet 75 mcg 75 mcg, Oral, EVERY MORNING, First dose on Mon03/02/23 at 0600, Until Discontinued, Routine Given 03/08/2023 5:58 AM EDT 75 mcg Given 03/07/2023 6:25 AM EDT 75 mcg Given 03/06/2023 5:13 AM EDT 75 mcg metoprolol succinate XL (Toprol-XL) tablet 25 mg 25 mg, Oral, DAILY, First dose on Mon03/08/23 at 1000, Until Discontinued, DO NOT CRUSH OR OPEN, Routine Given 03/08/2023 9:14 AM EDT 25 mg mometasone (Asmanex Twisthaler) 220 mcg/actuation DPI Inhaler 1 puff 1 puff (220 mcg), Inhalation, NIGHTLY, First dose on Mon03/03/23 at 1830, Until Discontinued, Rinse mouth (without swallowing) after each use., Routine, Does the patient have the inspiratory effort to support a dry powder inhaler? Yes Given 03/07/2023 8:32 PM EDT 1 puff Given 03/06/2023 8:46 PM EDT 1 puff Given 03/05/2023 8:48 PM EDT 1 puff pantoprazole (Protonix) injection 40 mg 40 mg, Intravenous, DAILY, First dose on Mon03/07/23 at 1945, Until Discontinued, Reconstitute with 10 mL of normal saline to a concentration of 4 mg/mL and inject slowly over 2 minutes. Reconstitute with 10 mL of normal saline to a concentration of 4 mg/mL and inject slowly over 2 minutes., Routine pantoprazole EC (Protonix) tablet 40 mg 40 mg, Oral, DAILY, First dose on Mon03/07/23 at 1945, Until Discontinued, DO NOT CRUSH OR OPEN, Routine Given 03/08/2023 8:23 AM EDT 40 mg Given 03/07/2023 8:32 PM EDT 40 mg rosuvastatin (Crestor) tablet 20 mg 20 mg, Oral, EVERY EVENING, First dose (after last modification) on Mon03/01/23 at 2000, Until Discontinued, Routine Given 03/06/2023 5:08 PM EDT 20 mg Given 03/05/2023 5:36 PM EDT 20 mg Given 03/04/2023 5:12 PM EDT 20 mg sodium chloride 0.9 % (flush) (BD PosiFlush Normal Saline 0.9) flush 5 mL 5 mL, Intravenous, 2 TIMES DAILY, First dose on Mon03/07/23 at 2100, Until Discontinued, Routine Given 03/08/2023 8:24 AM EDT 5 mLs Given 03/07/2023 8:32 PM EDT 5 mLs verapamiL (Isoptin) (2.5 mg/mL) injection ONCE PRN, Starting on Mon03/07/23 at 1440, Until Mon03/07/23 at 1516, Administer over 2 Minutes, Intra-Operative (Intra-Procedure) Given 03/07/2023 2:40 PM EDT 2 .5 mg ziprasidone (Geodon) capsule 20 mg 20 mg, Oral, 2 TIMES DAILY WITH MEALS, First dose (after last modification) on Mon03/01/23 at 1700, Until Discontinued, May cause prolongation of QT interval. Administer with a meal containing at least 500 calories., Routine Given 03/08/2023 9:15 AM EDT 20 mg Given 03/07/2023 8:56 AM EDT 20 mg Given 03/06/2023 5:08 PM EDT 20 mg documented in this encounter Active and Recently Administered Medications Times are shown in EDT. Scheduled Medication Order 03/06/2023 03/07/2023 03/08/2023 amLODIPine (Norvasc) tablet 10 mg 10 mg, Oral, DAILY, First dose (after last modification) on Mon03/03/23 at 0900, Until Discontinued, Routine 0808 (Given - Provider: Tosha Flores RN) 0853 (Given - Provider: Adi Kwan RN)1400 (JAN Hold - Provider: Admin Adt - Reason: Transfer to a Procedural area)1810 (JAN Unhold - Provider: Admin Adt) 0914 (Given - Provider: Addison Farias RN) aspirin EC tablet 325 mg 325 mg, Oral, DAILY, First dose on Mon03/01/23 at 1600, Until Discontinued, Routine 0808 (Given - Provider: Tosha Flores, RANGEL) 0853 (Given - Provider: Adi Chappell I, RANGEL)1400 (JAN Hold - Provider: Admin Adt - Reason: Transfer to a Procedural area)1809 (JAN Unhold - Provider: Admin Adt) 0823 (Given - Provider: Addison Farias, RANGEL) buPROPion SR (Wellbutrin SR) tablet 150 mg 150 mg, Oral, DAILY, First dose on Mon03/02/23 at 0900, Until Discontinued, DO NOT CRUSH OR OPEN, Routine 0808 (Given - Provider: Tosha Flores, RANGEL) 0853 (Given - Provider: Adi Kwan RN)1400 (JAN Hold - Provider: Admin Adt - Reason: Transfer to a Procedural area)1809 (JAN Unhold - Provider: Admin Adt) 08 (Given - Provider: Addison Farias, RANGEL) citalopram (CeleXA) tablet 40 mg 40 mg, Oral, DAILY, First dose on Mon03/02/23 at 0900, Until Discontinued, Routine 0808 (Given - Provider: Tosha Flores, RANGEL) 0853 (Given - Provider: Adi Kwan RN)1400 (JAN Hold - Provider: Admin Adt - Reason: Transfer to a Procedural area)1809 (JAN Unhold - Provider: Admin Adt) 08 (Given - Provider: Addison Farias, RANGEL) enoxaparin (Lovenox) (40 mg/0.4 mL) subcutaneous injection 40 mg (CANCELED) 40 mg, Subcutaneous, NIGHTLY, First dose on Mon03/01/23 at 2100, Until Discontinued, Routine 204 (Given - Provider: Zhanna Ratliff, RANGEL) 1400 (JAN Hold - Provider: Admin Adt - Reason: Transfer to a Procedural area)1809 (JAN Unhold - Provider: Admin Adt) ezetimibe (Zetia) tablet 10 mg 10 mg, Oral, EVERY EVENING, First dose (after last modification) on Mon03/01/23 at 2000, Until Discontinued, Routine 1708 (Given - Provider: Sylvie Eaton, RANGEL) 1400 (JAN Hold - Provider: Admin Adt - Reason: Transfer to a Procedural area)1700 (Not Given - Provider: Arlene Cole RN - Reason: Patient not available)1809 (JAN Unhold - Provider: Admin Adt) hydroCHLOROthiazide (Hydrodiuril) tablet 25 mg 25 mg, Oral, DAILY, First dose on Mon03/02/23 at 0900, Until Discontinued, Routine 0808 (Given - Provider: Tosha Flores, RANGEL) 0853 (Given - Provider: Adi Chappell I, RN)1400 (JAN Hold - Provider: Admin Adt - Reason: Transfer to a Procedural area)1809 (JAN Unhold - Provider: Admin Adt) 0914 (Given - Provider: Addison Farias, RANGEL) levothyroxine (Synthroid) tablet 75 mcg 75 mcg, Oral, EVERY MORNING, First dose on Mon03/02/23 at 0600, Until Discontinued, Routine 0513 (Given - Provider: Ynes Park, RANGEL) 0625 (Given - Provider: Zhanna Ratliff, RANGEL)1400 (JAN Hold - Provider: Admin Adt - Reason: Transfer to a Procedural area)1809 (JAN Unhold - Provider: Admin Adt) 0558 (Given - Provider: Arlene Cole, RANGEL) magnesium sulfate 2 g in sterile water 50 mL infusion (COMPLETED) 2 g, Intravenous, ONCE, 1 dose, On Mon03/06/23 at 1600, Administer over 120 Minutes 1539 (New Bag - Provider: Tosha Flores, RANGEL)1739 (Stopped - Provider: Sylvie Eaton RN) metoprolol (LOPRESSOR) injection 5 mg (COMPLETED) 5 mg, Intravenous, ONCE, 1 dose, On Mon03/08/23 at 0900 0818 (Given - Provider: Addison Farias, RANGEL) metoprolol succinate XL (Toprol-XL) tablet 25 mg 25 mg, Oral, DAILY, First dose on Mon03/08/23 at 1000, Until Discontinued, DO NOT CRUSH OR OPEN, Routine 913 (Given - Provider: Addison Farias, RANGEL) mometasone (Asmanex Twisthaler) 220 mcg/actuation DPI Inhaler 1 puff 1 puff (220 mcg), Inhalation, NIGHTLY, First dose on Mon03/03/23 at 1830, Until Discontinued, Rinse mouth (without swallowing) after each use., Routine, Does the patient have the inspiratory effort to support a dry powder inhaler? Yes 2045 (Given - Provider: Zhanna Ratliff RN) 1400 (JAN Hold - Provider: Admin Adt - Reason: Transfer to a Procedural area)1809 (JAN Unhold - Provider: Admin Adt)2031 (Given - Provider: Arlene Cole RN) mupirocin (Bactroban) 2 % ointment (CANCELED) Topical (Top), 2 TIMES DAILY, First dose on Mon03/07/23 at 0930, Until Discontinued, Apply small amount to each nostril two times daily 1002 (Given - Provider: Adi Kwan RN)1400 (JAN Hold - Provider: Admin Adt - Reason: Transfer to a Procedural area)1809 (JAN Unhold - Provider: Admin Adt) pantoprazole (Protonix) injection 40 mg(Linked Group 1) 40 mg, Intravenous, DAILY, First dose on Mon03/07/23 at 1945, Until Discontinued, Reconstitute with 10 mL of normal saline to a concentration of 4 mg/mL and inject slowly over 2 minutes. Reconstitute with 10 mL of normal saline to a concentration of 4 mg/mL and inject slowly over 2 minutes., Routine 2031 (See Alternative - Provider: Arlene Cole RN) 08 (See Alternative - Provider: Addison Farias RN) pantoprazole EC (Protonix) tablet 40 mg (CANCELED) 40 mg, Oral, DAILY, First dose on Mon03/02/23 at 0900, Until Discontinued, DO NOT CRUSH OR OPEN 0808 (Given - Provider: Tosha Flores RN) 0853 (Given - Provider: Adi Kwan RN)1400 (JAN Hold - Provider: Admin Adt - Reason: Transfer to a Procedural area)1809 (JAN Unhold - Provider: Admin Adt) pantoprazole EC (Protonix) tablet 40 mg(Linked Group 1) 40 mg, Oral, DAILY, First dose on Mon03/07/23 at 1945, Until Discontinued, DO NOT CRUSH OR OPEN, Routine 2031 (Given - Provider: Arlene Cole RN) 0823 (Given - Provider: Addison Farias RN) potassium chloride ER (Klor-Con M) crystal tablet 20 mEq (COMPLETED) 20 mEq, Oral, ONCE, 1 dose, On Mon03/08/23 at 0715, potassium chloride ER particle/crystal tablets (Klor-Con M) may be broken in half and each half swallowed separately. Tablets can be dissolved in ~4 ounces of water; allow ~2 minutes to dissolve, stir well and drink immediately. Do not crush, chew, or suck on tablet., Routine 0822 (Given - Provider: Addison Farias RN) potassium chloride ER (Klor-Con M) crystal tablet 40 mEq (COMPLETED) 40 mEq, Oral, ONCE, 1 dose, On Mon03/06/23 at 1600, potassium chloride ER particle/crystal tablets (Klor-Con M) may be broken in half and each half swallowed separately. Tablets can be dissolved in ~4 ounces of water; allow ~2 minutes to dissolve, stir well and drink immediately. Do not crush, chew, or suck on tablet., Routine 1539 (Given - Provider: Tosha Flores RN) potassium chloride ER (Klor-Con M) crystal tablet 40 mEq (COMPLETED) 40 mEq, Oral, ONCE, 1 dose, On Mon03/07/23 at 1000, potassium chloride ER particle/crystal tablets (Klor-Con M) may be broken in half and each half swallowed separately. Tablets can be dissolved in ~4 ounces of water; allow ~2 minutes to dissolve, stir well and drink immediately. Do not crush, chew, or suck on tablet., Routine 1002 (Given - Provider: Adi Kwan RN) rosuvastatin (Crestor) tablet 20 mg 20 mg, Oral, EVERY EVENING, First dose (after last modification) on Mon03/01/23 at 2000, Until Discontinued, Routine 1708 (Given - Provider: Sylvie Eaton RN) 1400 (JAN Hold - Provider: Admin Adt - Reason: Transfer to a Procedural area)1700 (Not Given - Provider: Arlene Cole RN - Reason: Patient not available)1810 (JAN Unhold - Provider: Admin Adt) senna-docusate (Pericolace) 8.6-50 mg per tablet 2 tablet 2 tablet, Oral, DAILY, First dose on Mon03/08/23 at 2100, Until Discontinued, Post-op day 1, Routine sodium chloride 0.9 % (flush) (BD PosiFlush Normal Saline 0.9) flush 5 mL (CANCELED) 5 mL, Intravenous, 2 TIMES DAILY, First dose on Mon03/01/23 at 1215, Until Discontinued, Routine 0808 (Given - Provider: Tosha Flores RN)2045 (Given - Provider: Zhanna Ratliff RN) 0855 (Given - Provider: Adi Kwan RN)1400 (JAN Hold - Provider: Admin Adt - Reason: Transfer to a Procedural area)1810 (JAN Unhold - Provider: Admin Adt) sodium chloride 0.9 % (flush) (BD PosiFlush Normal Saline 0.9) flush 5 mL (CANCELED) 5 mL, Intravenous, 2 TIMES DAILY, First dose on Mon03/07/23 at 0930, Until Discontinued, Routine 0855 (Given - Provider: Adi Kwan RN)1400 (JAN Hold - Provider: Admin Adt - Reason: Transfer to a Procedural area)1810 (JAN Unhold - Provider: Admin Adt) sodium chloride 0.9 % (flush) (BD PosiFlush Normal Saline 0.9) flush 5 mL 5 mL, Intravenous, 2 TIMES DAILY, First dose on Mon03/07/23 at 2100, Until Discontinued, Routine 2031 (Given - Provider: Arlene Cole RN) 0824 (Given - Provider: Addison Farias RN) ziprasidone (Geodon) capsule 20 mg 20 mg, Oral, 2 TIMES DAILY WITH MEALS, First dose (after last modification) on Mon03/01/23 at 1700, Until Discontinued, May cause prolongation of QT interval. Administer with a meal containing at least 500 calories., Routine 0807 (Given - Provider: Tosha Flores, RANGEL)1708 (Given - Provider: Sylvie Eaton RN) 0856 (Given - Provider: Adi Kwan RN)1400 (JAN Hold - Provider: Admin Adt - Reason: Transfer to a Procedural area)1700 (Not Given - Provider: Arlene Cole RN - Reason: Patient not available)1810 (JAN Unhold - Provider: Admin Adt) 0915 (Given - Provider: Addison Farias RN) Continuous Medication Order 03/06/2023 03/07/2023 03/08/2023 sodium chloride 0.9% infusion () 100 mL/hr, Intravenous, CONTINUOUS, Starting on Mon03/07/23 at 1600, Until Mon03/07/23 at 1959, Recovery (Recovery-Hospital Unit) 1555 (New Bag - Provider: Sj Russell RN) PRN Medication Order 03/06/2023 03/07/2023 03/08/2023 acetaminophen (Tylenol) tablet 1,000 mg 1,000 mg, Oral, EVERY 6 HOURS PRN, Starting on Mon03/07/23 at 1844, Until Mon03/08/23 at 1523, Pain, For pain when taking by mouth. Maximum dose of acetaminophen is 4,000 mg from all sources in 24 hours. When ordered for pain, acetaminophen should be given even when other ordered pain medications are indicated., Routine 0558 (Given - Provid er: Arlene Cole RN) acetaminophen (Tylenol) tablet 650 mg (CANCELED) 650 mg, Oral, EVERY 6 HOURS PRN, Starting on Mon03/07/23 at 1732, Until Mon03/07/23 at 1850, Pain, back pain, Maximum dose of acetaminophen is 4,000 mg from all sources in 24 hours. When ordered for pain, acetaminophen should be given even when other ordered pain medications are indicated. , Routine 173 (Given - Provider: Mike Russell RN) bisacodyL (Dulcolax) suppository 10 mg 10 mg, Rectal, DAILY PRN, Starting on Mon03/10/23 at 0000, Until Mon03/08/23 at 1523, Constipation, Starting post-op day 3., Routine iohexoL (Omnipaque) (350 mg/mL) solution (CANCELED) ONCE PRN, Starting on Mon03/07/23 at 1511, Until Mon03/07/23 at 1516, Intra-Operative (Intra-Procedure), Routine 1511 (Given - Provider: Mike Torres MD) ipratropium-albuteroL (Duoneb) 0.5 mg-3 mg(2.5 mg base)/3 mL nebulizer solution 3 mL 3 mL, Nebulization, EVERY 4 HOURS PRN, Starting on Mon03/01/23 at 1412, Until Mon03/08/23 at 1523, Wheezing, Routine 1400 (JAN Hold - Provider: Admin Adt - Reason: Transfer to a Procedural area)1810 (JAN Unhold - Provider: Admin Adt) labetaloL (Normodyne) (5 mg/mL) injection solution 10 mg (COMPLETED) 10 mg, Intravenous, ONCE PRN, 1 dose, Starting on Mon03/07/23 at 1541, Until Mon03/07/23 at 1545, High Blood Pressure, administer for SBP >160mmHg. Wait until 10 minutes after first dose of labetalol before administering, Routine 1545 (Given - Provider: Mike Russell RN) lidocaine (Xylocaine) 1% (10 mg/mL) injection 3 mg 3 mg (0.3 mL), Subcutaneous, ONCE PRN, 1 dose, Starting on Mon03/07/23 at 1844, Until Mon03/08/23 at 1523, for discomfort with PIV insertion, Routine magnesium hydroxide (Milk of Magnesia) (80mg/mL) oral liquid 30 mL 30 mL, Oral, DAILY PRN, Starting on Mon03/07/23 at 1844, Until Mon03/08/23 at 1523, Constipation, 30 mL regular (400 mg/5 mL) = 10 mL concentrate (2400 mg/10 mL), Routine ondansetron (pf) (Zofran) (2 mg/mL) injection 4 mg 4 mg, Intravenous, EVERY 8 HOURS PRN, Starting on Mon03/07/23 at 1844, Until Mon03/08/23 at 1523, Nausea, Routine sodium chloride 0.9 % (flush) (BD PosiFlush Normal Saline 0.9) flush 5-20 mL 5-20 mL, Intravenous, EVERY 1 MIN PRN, Starting on Mon03/07/23 at 1844, Until Mon03/08/23 at 1523, flush, Flush pertains to all indwelling lines. Flush per protocol found in the job aid using the link provided on this medication record., Routine verapamiL (Isoptin) (2.5 mg/mL) injection (CANCELED) ONCE PRN, Starting on Mon03/07/23 at 1440, Until Mon03/07/23 at 1516, Administer over 2 Minutes, Intra-Operative (Intra-Procedure) 1440 (Given - Provider: RITA Post) Linked Groups Order Group 1: pantoprazole EC (Protonix) tablet 40 mgJump to med 40 mg, Oral, DAILY, First dose on Mon03/07/23 at 1945, Until Discontinued, DO NOT CRUSH OR OPEN, Routine Or pantoprazole (Protonix) injection 40 mgJump to med 40 mg, Intravenous, DAILY, First dose on Mon03/07/23 at 1945, Until Discontinued, Reconstitute with 10 mL of normal saline to a concentration of 4 mg/mL and inject slowly over 2 minutes. Reconstitute with 10 mL of normal saline to a concentration of 4 mg/mL and inject slowly over 2 minutes., Routine documented in this encounter Care Teams Jewelry Bench Molder Relationship Specialty Start Date End Date Vanita Churchill APRN PCP - General Family Medicine 02/27/19 documented as of this encounter
--- OUTSIDE RECORDS SUMMARY | 2024-06-14 01:46 | XMS_ITS | Encounter Summary ---
[place] [address] Care Team Providers Care Mold Closer Name Role Phone KwesiVanita mix Omar SPARROW Primary Care Provider [phone] Reason for Visit * Reason Onset Date Comments Other 02/28/2023 Missed call Encounter Details Date Type Department Care Team (Late st Contact Info) Description 02/28/2023 Telephone Cardiology at [address] [phone] Clarice Bates RN Other (Missed call) Social History Tobacco Use Types Packs/Day Years Used Date Smoking Tobacco: Former Cigarettes 2 30 1 12/21/1973 - 10/21/2004 Smokeless Tobacco: Never Alcohol Use Standard Drinks/Week Comments Yes 0 (1 standard drink = 0.6 oz pur e alcohol) [facility] Inpatient Questions Answer Date Recorded [...] encounter Miscellaneous Notes * Telephone Encounter - Clarice Bates RN - 02/28/2023 1:16 PM EDT VM that pt missed a call from [facility] and she was waiting to hear if she could get in tomorrow. She requested that nursing look around to see who called No notes from anyone in cardiology Message left on green team, followed by structural heart team Will route to them Clarice Bates RN 4A Cardiology documented in this encounter Plan of Treatment Upcoming Encounters Date Type Department Care Team (Late st Contact Info) Description 02/06/2025 2:40 PM EDT Office Visit Cardiology at [address] [phone] Rigoberto Diaz MD [facility] [place] [address] Scheduled Procedures Name Priority Associated Diagnoses Date/Ti me EGD, UPPER GI ENDOSCOPY (WRV U 2.09) Incontinence of feces, unspecified fecal incontinence type Dysphagia, unspecified type COLONOSCOPY, DIAGNOSTIC (WRV U 3.26) Incontinence of feces, unspecified fecal incontinence type Dysphagia, unspecified type documented as of this encounter Visit Diagnoses Not on filedocumented in this encounter Care Teams Mold Closer Relationship Specialty Start Date End Date Vanita Churchill APRN PCP - General Family Medicine 02/27/19 documented as of this encounter
--- OUTSIDE RECORDS SUMMARY | 2024-06-14 01:46 | XMS_ITS | Encounter Summary ---
Author Organization [facility] [place] [address] Care Team Providers Care Degreaser Operator Name Role Phone Vanita Churchill Omar SPARROW Primary Care Provider [phone] Reason for Referral * Home Health Care (Routine) - Closed Specialty Diagnoses / Procedures Referred By Contac t Referred To Contact Diagnoses S/P TAVR (transcatheter aortic valve replacement) Rahat Vargas MD [facility] [place] [address] [facility] & [address] [place] [address] Referral ID Status Reason Start Date Expiration Date V isits Requested Visits Authorized [id number] Closed Consult, Test & Treat 03/09/2023 09/05/2023 999 999 * Consultation (Routine) - Closed Specialty Diagnoses / Procedures Referred By Contac t Referred To Contact Diagnoses S/P TAVR (transcatheter aortic valve replacement) Rahat Vargas MD [facility] [place] [address] Cardiac Rehab, [facility] [address] [place] [address] Referral ID Status Reason Start Date Expiration Date V isits Requested Visits Authorized [id number] Closed Consult, Test & Treat Non DH PCP 03/08/2023 09/04/2023 36 36 * Diagnostic Test (Routine) - Closed Specialty Diagnoses / Procedures Referred By Contac t Referred To Contact Cardiology Diagnoses S/P TAVR (transcatheter aortic valve replacement) Procedures [facility] 48 Hrs-15 Days Suhail Padilla APRN [facility] [place] [address] [facility] [address] Referral ID Status Reason Start Date Expiration Date V isits Requested Visits Authorized [id number] Closed Specialty Service Requested 03/08/2023 03/07/2024 1 1 Reason for Visit * Auth/Cert (Routine) Specialty Diagnoses / Procedures Referred By Contac t Referred To Contact Diagnoses Aortic stenosis Aortic stenosis Procedures ER IPI Chong Campbell MD [facility] [place] [address] [facility] Referral ID Status Reason Start Date Expiration Date Visits Re quested Visits Authorized [id number] 1 1 Encounter Details Date Type Department Care Team (Late st Contact Info) Description 03/01/2023 12:42 PM EDT - 03/08/2023 1:22 PM EDT Hospital Encounter [place] [address] Chong Campbell MD [facility] [place] [address] Brandon Crowley MD [facility] [place] [address] Rahat Vargas MD [facility] [place] [address] S/P TAVR (transcatheter aortic valve replacement) (Primary Dx); Aortic valve stenosis, etiology of cardiac valve disease unspecified; ASCVD (arteriosclerotic cardiovascular disease); Essential hypertension Discharge Disposition: Home with [facility]NA Social History Tobacco Use Types Packs/Day Years [...] Sign Reading Time Taken Comments Blood Pressure 134/52 03/08/2023 11:29 AM EDT Pulse 68 03/08/2023 11:29 AM EDT Temperature 36.8 ??C (98.2 ??F) 03/08/2023 11:29 AM E DT Respiratory Rate 20 03/08/2023 11:29 AM EDT Oxygen Saturation 94% 03/08/2023 11:29 AM EDT Inhaled Oxygen Concentration - - Weight 76.7 kg (169 lb 1.5 oz) 03/08/2023 3:59 A M EDT Height 160 cm (5' 2.99) 03/01/2023 12:59 PM EDT Body Mass Index 29.96 03/01/2023 12:59 PM EDT documented in this encounter Discharge Summaries * Mary Molina PA - 03/08/2023 11:32 AM EDT Inpatient - Discharge Summary Patient Name: Lindsey Deleon Patient Age: 72 y.o. Birthdate: 1950 Language: Prydeinig Race: White Ethnicity: Not nor Admit Date: 03/01/2023 Discharge Date: 03/08/2023 Attending Physician: Rahat Vargas MD Follow-up Recommendations for Providers: ??? Please continue routine management of cardiovascular risk factors including blood pressure, lipids, glucose, etc. ??? Please note any medication changes. ??? Patient to follow up with PCP, Vanita Churchill APRN, or Primary Rubber Compounder Mixer, in ~ 7-10 days. ??? Patient to follow up with Game Bird Farmer, Dr. Mike Torres, in 1 month with a chest x-ray, EKG, Echo, CBC, and CMP. ?? Sciq-Ebsjnd-fe interval: After initial 30 day follow-up appointment , all TAVR patients will follow-up again in one year with an echo. Inpatient Provider Contact Information: [facility] Section of [place]iac [place] [facility] [place] [address] FAX [phone] Discharge Diagnoses (Hospital Problems) Primary Diagnoses: Aortic [...] Date ??? CHOLECYSTECTOMY ? ? PRG CATH [facility] CORONARY ART W/INJ FOR ANGIO W/R HEART CATH IMG S&I N/A 01/31/2023 CORONARY ANGIOGRAPHY; W RHC (WRVU 5.9) performed by Mike Torres MD at [facility] CATH LABS ??? PRG X-RAY AORTA LEG ARTERIES N/A 08/15/2017 AORTOGRAPHY, ABD. + AYAAN. ILIOFEMORAL LE BY SERIALOGRAPHY S & I (WRVU 1.79) performed by Jake Montaño MD at [facility] MAIN OR ??? PRO COLONOSCOPY, DIAGNOSTIC 12/06/2012 COLONOSCOPY, DIAGNOSTIC performed by Mik Dumont MD at [facility] ENDOSCOPY ??? PRO LAPAROSCOPY REPAIR PARAESOPHAGEAL HERNIA INCL FUNDOPLASTY W/O MESH 02/18/2013 LAPAROSCOPIC PARAESOPHAGEAL HERNIA REPAIR W/FUNDOPLASTY, W/O MESH performed by Moncho Bowers MD at [facility] MAIN OR ??? PRO PLACE CATH FIRST ORDER ART, ABD/PELV 08/15/2017 CATHETER PLACEMENT, SELECTIVE FIRST ORDER IN ARTERIAL SYSTEM, EACH FIRST ORDER ABDOMINAL, PELVIC, OR LOWER EXTREMITY ARTERY BRANCH,WITHIN A VASCULAR FAMILY (WRVU 4.9) performed by Jake Montaño MD at [facility] MAIN OR ? ? PRO REVSC OPEN/PERCUTANEOUS ILIAC ART W STNT PLMT&ANGIO PATRICE VSL UNILAT Bilateral 08/15/2017 REVSC OPN\PRQ ILIAC ART W\STNT PLMT & ANGIOP SAME VSL (WRVU 10) performed by Jake Montaño MD at [facility] MAIN OR ??? PRO THROMBOENDARTECTMY ILIOFEMORAL Left 08/15/2017 @ENDARTERECTOMY, ILIOFEMORAL W OR W/O PATCH GRAFT (WRVU 19.86) performed by Jake Montaño MD at [facility] MAIN OR ??? PRO THROMBOENDARTECTMY NECK, NECK INCIS Right 06/10/2019 @ENDARTERECTOMY, CAROTID, VERTEBRAL,SUBCLAVIAN W\WO PATCH GRAFT (WRVU 21.16) performed by Jake Montaño MD at [facility] MAIN OR ??? PRO UPPER GI ENDOSCOPY, BIOPSY 12/06/2012 EGD WITH BIOPSY performed by Mik Dumont MD at [facility] ENDOSCOPY ??? TUBAL LIGATION Prior To Admission Medications Facility-Administered Medications Prior to Admission Medication Dose Route Frequency Provider Last Rate Last Admin ??? mupirocin (Bactroban) 2 % ointment Topical (Top) BID Edwige Nieves [employer]PLANDS DIVISION DIRECTOR ??? sodium chloride 0.9 % (flush) (BD PosiFlush Normal Saline 0.9) flush 5 mL 5 mL Intravenous BID Edwige Nieves [employer]PL[employer] DIVISION DIRECTOR ??? sodium chloride 0.9 % (flush) (BD PosiFlush Normal Saline 0.9) flush 5-20 mL 5-20 mL Intravenous Q1 Min PRN Edwige Nieves [employer] DIVISION DIRECTOR ??? lidocaine (Xylocaine) 1% (10 mg/mL) injection 3 mg 0.3 mL Subcutaneous Once PRN Edwige NievesUPLANDS DIVISION DIRECTOR Medications Prior to Admission Medication Sig Dispense [...] TF TAVR Lindsey Deleon was admitted to [facility] on 03/01/2023 via the Cardiology Service for expedited TAVR workup and procedure in light of rapidly progressive symptoms. She was brought to the [facility] lab[facility] 03/07/[address] Rahat Vargas and Mike [...] Wt 76.7 kg (169 lb 1.5 oz) RaM670% BMI 29.96 kg/m?? Patient Vitals for the [...] if you have questions. Please call your Game Bird Farmer's office if you have any discharge or drainage from your procedural sites. Your Game Bird Farmer, Dr. Mike Torres and/or the Motor And Controls Tester may be reached at . Antibiotic prophylaxis: [...] Please refer to the card with the [employer] Guidelines for more information. You have been provided with a copy of this card. Please refer to the [employer] Heart [employer] Guidelines for more information. Good [...] friends, go to a movie, go to christian, etc. Heavy activities: No hunting, skiing, jogging, [...] should resume a low fat, low cholesterol, [employer] Diet. Driving: No driving for 3 days. Shower/Bath: You may shower daily. No baths, soaking, or swimming for the first week. Wound care: Please remove your dressings 48 hours after your procedure. Wash the sites daily with soap and rinse well, pat dry. Assess for any signs of infection such as increased redness, pain, warmth or drainage. Please call your switchboard inspector's office if you have any discharge or drainage from your procedural sites. If there is a lot of swelling, apply tayla wraps during the day and remove at bedtime. Elevate your legs when you are sitting. Home oxygen therapy: N/A Follow up appointments: ??? Please schedule a follow-up appointment with your PCP, Vanita Churchill APRN, or Primary Rubber Compounder Mixer, in ~ 7-10 days. ??? You have a follow-up appointment with your Game Bird Farmer, Dr. Mike Torres, in 1month with a chest x-ray, EKG, Echo, and labs prior to your appointment. ?? Rppq-Yhmndh-xi interval: After initial 30 day follow-up appointment [...] AM Alley Johnson APRN [facility] Arrive at: Adult Education Instructor [address] [place] [phone] Future Orders Complete By Expires CBC (with Diff) [ZXC883 Custom] 04/07/2023 (Approximate) 03/08/2024 Process Instructions: INCLUDES: WBC, RBC, Hgb, Hct, Platelets, RBC Indices and Differential Scheduling Instructions: Comments: Questions: Comprehensive metabolic panel (non-fasting) [LAB17 Custom] 04/07/2023 (Approximate) 03/08/2024 Process Instructions: INCLUDES: Calcium, T Protein, Albumin, AST, ALT, Alk Phos, T Bili, BUN, Creat, GFR, Glucose, Lytes. Scheduling Instructions: Comments: Questions: Echocardiogram Transthoracic [70579 CPT(R)] 04/07/2023 (Approximate) 03/08/2024 Process Instructions: Scheduling Instructions: Questions: Where will study be performed?: [facility] Does the patient have Congenital Heart Disease?: Does patient require sedation?: GA rationale: EKG 12 Lead [40941 CPT(R)] 04/07/2023 (Approximate) 03/08/2024 Process Instructions: Scheduling Instructions: Questions: Which location will this be performed?: [place] Is a rhythm strip needed?: No XR Chest PA & Lateral (Generic) [83956 01711 Custom] 04/07/2023 (Approximate) 03/08/2024 Process Instructions: Scheduling Instructions: Questions: Reason for exam and clinical history: s/p TF TAVR Clinical information / guzman questions for radiologist: Where will study be performed?: [facility] Radiology Portable exam?: Stat read required?: Date of injury if applicable: Requested Time: Referral to Cardiac Rehab [LEB872 Custom] As directed Process Instructions: If no progress note charted, please enter Clinical details in comments. Scheduling Instructions: Questions: My question or request is: TAVR- cardiac rehab at [facility] 48 Hrs-15 Days [QJQ1365 CPT(R)] As directed Process Instructions: Scheduling Instructions: Comments: Questions: Does the patient have a pacemaker? If yes provide HI/LO settings: Apply for 7 or 14 days?: 14 Where will study be performed?: [facility] Discharge References/Attachments Transcatheter Aortic Valve Implantation (DIMAS): General Info (Prydeinig) Transcatheter Aortic Valve Implantation (DIMAS): Pre-op (Prydeinig) Transcatheter Aortic Valve Implantation (DIMAS): Post-op (Prydeinig) Signed: RITA Lewis [facility] Section of Cardiac Surgery Date: 03/08/2023 CC: KYARA Plasencia Wassim, [place] [address] documented in this encounter Discharge Instructions * Patient Instructions* Mary Molina PA - 03/08/2023 10:55 AM EDT TAVR Discharge Instructions: Call your doctor if: You have a fever of greater than 101 degrees, shaking chills, if you develop redness or drainage from your procedure sites, or if you have questions. Please call your Game Bird Farmer's office if you have any discharge or drainage from your procedural sites. Your Game Bird Farmer, Dr. Mike Torres and/or the Motor And Controls Tester may be reached at . Antibiotic prophylaxis: [...] Please refer to the card with the [employer] Heart Association Guidelines for more information. You have been provided with a copy of this card. Please refer to the Indian Heart Association Guidelines for more information. Good [...] friends, go to a movie, go to christian, etc. Heavy activities: No hunting, skiing, jogging, [...] should resume a low fat, low cholesterol, [employer] Diet. Driving: No driving for 3 days. Shower/Bath: You may shower daily. No baths, soaking, or swimming for the first week. Wound care: Please remove your dressings 48 hours after your procedure. Wash the sites daily with soap and rinse well, pat dry. Assess for any signs of infection such as increased redness, pain, warmth or drainage. Please call your switchboard inspector's office if you have any discharge or drainage from your procedural sites. If there is a lot of swelling, apply tayla wraps during the day and remove at bedtime. Elevate your legs when you are sitting. Home oxygen therapy: N/A Follow up appointments: Please schedule a follow-up appointment with your PCP, Vanita Churchill APRN, or Primary Rubber Compounder Mixer, in ~ 7-10 days. You have a follow-up appointment with your Game Bird Farmer, Dr. Mike Torres, in 1 month with a chest x-ray, EKG, Echo, and labs prior to your appointment. Ulpt-Rnyqnp-yp interval: After initial 30 day follow-up appointment , all TAVR patients will follow-up again in one year with an echo. * Attachments The following attachments cannot be sent through Care Everywhere. * Transcatheter Aortic Valve Implantation (DIMAS): General Info (Prydeinig) * Transcatheter Aortic Valve Implantation (DIMAS): Pre-op (Prydeinig) * Transcatheter Aortic Valve Implantation (DIMAS): Post-op (Prydeinig) documented in this encounter Medications at Time [...] oxygen-air delivery systems ([employer] [facility]) Supply, See instructions, # 1 EA, 0 [...] Post-Op L TF TAVR. 24h Events: To laboratory assistant for TF TAVR RBBB and LAFB pre [...] 0600 and on the weekends please page [phone]. * Suhail Padilla, [employer] DIRECTOR - 03/08/2023 7:52 AM EDT Images from [...] Blood Gas) No results for input(s): PHART, GHA2QKQ, PO2ART, OIB4HBU, LACTATEVEN, DCI4WXM, PFRATIOART2 in the last 168 hours. VBG (Venous Blood Gas) No results for input(s): PHVEN, KJY4CTH, PO2VEN, WMI0XXX, LACTATEVEN in the last 168 hours. Mixed Venous Sat No results for input(s): T9DKMY7 in the last 168 hours. Vitals Last [...] 76.7 kg (169 lb 1.5 oz) 03/07/23 034 77.2 kg (170 lb 3.1 oz) 03/06/23 0301 77.7 kg (171 lb 4.8 oz) 03/05/23 0522 77.5 kg (170 lb 12.8 oz) 03/04/23 0635 77.4 kg (170 lb 10.2 oz) 03/03/23 034 77.1 kg (169 lb 15.6 oz) 03/02/23 [...] streak formation;no drainage 03/03/231999 Labs: Recent Labs 03/08/23 0413 03/07/23200903/07/2333403/06/2340103/05/23 0350 03/04/23 0517 WBC 11.5* -- 6.7 6.4 7.5 7.5 HGB 11.1* 11.1* 11.8 12.1 11.9 12.1 HCT 32.9* -- 35.1* 35.5* 35.4* 36.6 PLATELET 216 -- 241 258 228 254 MCV 95.9* -- 96.4* 95.9* 99.2* 98.7* Recent Labs 03/08/23 0413 03/07/23200903/07/23 0335 03/06/23 0402 03/05/23 0350 03/04/23 0517 03/03/23 0407 NA 134* -- 132* 132* 133* 132* 138 CL 99 -- 99 95* 96* 95* 103 CO2 23 -- 23 23 24 27 22 K 3.8 4.1 3.6 3.7 4.4 [...] -normal sinus rhythm. Right bundle branch block, ND 168 ms from 198ms, KGW955 ms from 144 ms Medications Scheduled Meds: [...] Suhail Padilla APRN Structural Heart Disease Pager [phone] * Cyn Soler - 03/07/2023 5:00 PM EDT Surgical Lead Encounter Note Patient Name: Lindsey Deleon : [id number] MR#: [id number] Admit Date: 03/01/2023 12:42 PM Hospital Day 6 days Narrative: Initiated visit to follow up from yesterday. 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 VBG (Venous Blood Gas) No results for input(s): PHVEN, PUP1ELX, PO2VEN, QQO2LQL, LACTATEVEN in the last 168 hours. Mixed Venous Sat No results for input(s): H6ADUB9 in the last 168 hours. Vitals Last [...] streak formation;no drainage 03/03/231999 Labs: Recent Labs 03/07/2333403/06/2340103/05/23 0350 03/04/2351603/03/23406 WBC 6.7 6.4 7.5 7.5 8.9 HGB 11.8 12.1 11.9 12.1 12.0 HCT 35.1* 35.5* 35.4* 36.6 37.2 PLATELET 241 258 228 254 258 MCV 96.4* 95.9* 99.2* 98.7* 100.5* Recent Labs 03/07/2333403/06/232 03/05/23 0350 03/04/23 0503/03/23 040 NA 132* 132* 133* 132* 138 CL 99 95* 96* 95* 103 CO2 22 K 3.6 3.7 4.4 3.9 4.3 [...] status post TAVR for primary team management Suhail Padilla APRN Structural Heart Disease Pager [phone] Associated attestation - Mike Torres MD - 03/07/2023 4:14 PM EDT Attending Addendum: The patient was seen and examined in conjunction with Mr Valerie APRN. My history, physical exam findings, assessment, and plan are reflected in that note. Lab and relevant imaging data was reviewed and the plan was communicated with the patient and available family. TAVR today. Mike Torres MD, [facility] Attending Rubber Compounder Mixer Pager [phone] * Brandon Crowley MD - 03/07/2023 7:05 AM EDT Images from the original note were not included. Inpatient Cardiology Progress Note Patient info: Name: Lindsey Deleon : 1950 PCP: Vanita Churchill APRN PCP phone number: [phone] Date of Admission: 03/01/2023 ( Hospital Day [...] 77.4 kg (170 lb 10.2 oz) 03/03/23 034 77.1 kg (169 lb 15.6 oz) 03/02/23 [...] extremities spontaneously Psych: cooperative. Labs: Recent Labs 03/07/2333403/06/2340103/05/2334903/04/2351603/03/23406 WBC 6.7 6.4 7.5 7.5 8.9 HGB 11.8 12.1 11.9 12.1 12.0 HCT 35.1* 35.5* 35.4* 36.6 37.2 PLATELET 241 258 228 254 258 MCV 96.4* 95.9* 99.2* 98.7* 100.5* Recent Labs 03/07/2333403/06/2340103/05/23 0350 03/04/2351603/03/23 040 NA 132* 132* 133* 132* 138 CL 99 95* 96* 95* 103 CO2 K 3.6 3.7 4.4 3.9 4.3 MAGNESIUM [...] in the last 7068 hours. Invalid input(s): IYYIDVMVGDV1O No results for input(s): POCGLU in the last 168 hours. Heme No results for input(s): LDH, HAPTOGLOBIN, URICACID in the last 168 hours. ABG (Arterial Blood Gas) No results found for: PHART, PO2ART, SSD1KKQ, QXR1GKX Microbiology: Microbiology Results (Last 30 days) No [...] who have questions please contact the health respiratory care faculty that requested your imaging first. Medications Scheduled Meds: ??? mupirocin Topical (Top) [...] Cyn Soler - 03/06/2023 1:00 PM EDT Surgical Lead Encounter Note Patient Name: Lindsey Deleon : [id number] MR#: [id number] Admit Date: 03/01/2023 12:42 PM Hospital Day 5 days Narrative: Initiated visit on unit rounds. Ms. Deleon is sitting in chair beside bed with her son next to her. Shared some of her health hx and that she is headed for heart surgery tomorrow. [place] in [place] and . Close with his mother, they shared stories about their family, about yazidi and their lives. Ms. Deleon is grateful [...] son. Time in Direct Care: 25min. Cyn Nabor Ryder 03/06/2023 * Brandon Crowley MD - 03/06/2023 8:09 AM EDT Images from the original note were not included. Inpatient Cardiology Progress Note Patient info: Name: Lindsey Deleon : 1950 PCP: Vanita Churchill APRN PCP phone number: [phone] Date of Admission: 03/01/2023 ( Hospital Day [...] (!) 38 ??C (100.4 ??F) (Told Genevieve MULTANI) Temp: [36.4 ??C (97.5 ??F)-38 ??C (100.4 [...] in the last 7068 hours. Invalid input(s): MUMWKOCRWYV3M No results for input(s): POCGLU in the last 168 hours. Heme No results for input(s): LDH, HAPTOGLOBIN, URICACID in the last 168 hours. ABG (Arterial Blood Gas) No results found for: PHART, PO2ART, IEF8FJY, JTY1MTX Microbiology: Microbiology Results (Last 30 days) No [...] who have questions please contact the health respiratory care faculty that requested your imaging first. Medications Scheduled Meds: ??? mometasone 220 mcg [...] #Routine Diet: Daily Healthy Menu Choices/Cardiac diet ([facility]-Diet) NPO diet (Give Meds) DVT Prophylaxis: LMWH [...] PCP: Vanita Churchill APRN PCP phone number: [phone] Date of Admission: 03/01/2023 ( Hospital Day [...] in the last 7068 hours. Invalid input(s): KIPHPJMITCE0N No results for input(s): POCGLU in the last 168 hours. Heme No results for input(s): LDH, HAPTOGLOBIN, URICACID in the last 168 hours. ABG (Arterial Blood Gas) No results found for: PHART, PO2ART, ACI5VKO, HIV8FPF Microbiology: Microbiology Results (Last 30 days) No [...] #Routine Diet: Daily Healthy Menu Choices/Cardiac diet ([facility]-Diet) NPO diet (Give Meds) DVT Prophylaxis: LMWH [...] PCP: Vanita Churchill APRN PCP phone number: [phone] Date of Admission: 03/01/2023 ( Hospital Day [...] extremities spontaneously Psych: cooperative. Labs: Recent Labs 03/04/2351603/03/2340603/02/23 04003/01/23 1648 WBC 7.5 8.9 8.8 7.4 HGB 12.1 12.0 11.0* 11.7 HCT 36.6 37.2 34.3* 36.2 PLATELET 254 258 250 276 MCV 98.7* 100.5* 101.5* 100.6* Recent Labs 03/04/2351603/03/23 0407 03/02/23 0409 03/01/23 1648 NA 132* 138 138 140 CL [...] in the last 7068 hours. Invalid input(s): JAGSWEVBEML0F No results for input(s): POCGLU in the last 168 hours. Heme No results for input(s): LDH, HAPTOGLOBIN, URICACID in the last 168 hours. ABG (Arterial Blood Gas) No results found for: PHART, PO2ART, BOD8JQW, USA3TWJ Microbiology: Microbiology Results (Last 30 days) No [...] #Routine Diet: Daily Healthy Menu Choices/Cardiac diet ([facility]-Diet) NPO diet (Give Meds) DVT Prophylaxis: LMWH [...] PCP: Vanita Churchill APRN PCP phone number: [phone] Date of Admission: 03/01/2023 ( Hospital Day [...] extremities spontaneously Psych: cooperative. Labs: Recent Labs 03/03/2340603/02/23 04003/01/23 1648 WBC 8.9 8.8 7.4 HGB [...] in the last 7068 hours. Invalid input(s): ILWLFTYWMNJ5O No results for input(s): POCGLU in the last 168 hours. Heme No results for input(s): LDH, HAPTOGLOBIN, URICACID in the last 168 hours. ABG (Arterial Blood Gas) No results found for: PHART, PO2ART, XNN3VVW, BDA3ONY Microbiology: Microbiology Results (Last 30 days) No [...] #Routine Diet: Daily Healthy Menu Choices/Cardiac diet ([facility]-Diet) DVT Prophylaxis: LMWH GI Prophylaxis: Pantoprazole Code [...] MALIK, FACC, FACP, FASE Cardiovascular Medicine * LizbethEdwige costa, [employer] DIV[employer] DIRECTOR - 03/02/2023 3:19 PM EDT Images from [...] placement (8x38mm BE)for short distance claudication in 2016 and more [...] Blood Gas) No results for input(s): PHART, PLE9HHZ, PO2ART, ECI6LNQ, LACTATEVEN, RMX3PUR, PFRATIOART2 in the last 168 hours. VBG (Venous Blood Gas) No results for input(s): PHVEN, KVX2FOY, PO2VEN, YYT2LHX, LACTATEVEN in the last 168 hours. Mixed Venous Sat No results for input(s): F3GKNE3 in the last 168 hours. Vitals Last [...] 1600 Securement catheter stabilization device, secured with 03/02/23899 Patency/Maintenance flushed without difficulty 03/02/23 09 Phlebitis 0-->no symptoms 03/02/23 1335 Infiltration 0-->no [...] in the last 7068 hours. Invalid input(s): DEXHNERNYVH3Y No results for input(s): POCGLU in the last 168 hours. No results for input(s): LDH, HAPTOGLOBIN, URICACID in the last 168 hours. ABG (Arterial Blood Gas) No results for input(s): PHART, JUJ6YPC, PO2ART, GOT8URL, LACTATEVEN, UUO9NYT, PFRATIOART2 in the last 168 hours. VBG (Venous Blood Gas) No results for input(s): PHVEN, YXX1TRX, PO2VEN, UMQ2ITC, LACTATEVEN in the last 168 hours. Mixed Venous Sat No results for input(s): [id number] in the last 168 hours. Diagnostics: Echocardiogram [...] bilateral iliac stent placement 4. HTN Plan Lindseysa Bibi Deleon is a 72 y.o. female w/ [...] recommendations. Edwige Nieves APRN Structural Heart Pager [phone] 03/02/2023 * Chong Campbell MD - 03/02/2023 6:50 AM EDT Images from the original note were not included. Inpatient Cardiology Progress Note Patient info: Name: Lindsey Deleon : 1950 PCP: Vanita Churchill APRN PCP phone number: [phone] Date of Admission: 03/01/2023 ( Hospital Day [...] in the last 7068 hours. Invalid input(s): [id number] No results for input(s): POCGLU in the last 168 hours. Heme No results for input(s): LDH, HAPTOGLOBIN, URICACID in the last 168 hours. ABG (Arterial Blood Gas) No results found for: PHART, PO2ART, DMG9AOB, PQG5EMC Microbiology: Microbiology Results (Last 30 days) No [...] #Routine Diet: Daily Healthy Menu Choices/Cardiac diet ([facility]-Diet) DVT Prophylaxis: LMWH GI Prophylaxis: Pantoprazole Code [...] PCP: Vanita Churchill APRN PCP phone number: [phone] Date of Admission: 03/01/2023 ( Hospital Day [...] 5.9) performed by Mike Torres MD at [facility] CATH LABS ??? PRG X-RAY AORTA LEG ARTERIES N/A 08/15/2017 AORTOGRAPHY, ABD. + AYAAN. ILIOFEMORAL LE BY SERIALOGRAPHY S & I (WRVU 1.79) performed by Jake Montaño MD at [facility] MAIN OR ??? PRO COLONOSCOPY, DIAGNOSTIC 12/06/2012 COLONOSCOPY, DIAGNOSTIC performed by Mik Dumont MD at [facility] ENDOSCOPY ??? PRO LAPAROSCOPY REPAIR PARAESOPHAGEAL HERNIA INCL FUNDOPLASTY W/O MESH 02/18/2013 LAPAROSCOPIC PARAESOPHAGEAL HERNIA REPAIR W/FUNDOPLASTY, W/O MESH performed by Moncho Bowers MD at [facility] MAIN OR ??? PRO PLACE CATH FIRST ORDER ART, ABD/PELV 08/15/2017 CATHETER PLACEMENT, SELECTIVE FIRST ORDER IN ARTERIAL SYSTEM, EACH FIRST ORDER ABDOMINAL, PELVIC, OR LOWER EXTREMITY ARTERY BRANCH,WITHIN A VASCULAR FAMILY (WRVU 4.9) performed by Jake Montaño MD at [facility] MAIN OR ? ? PRO REVSC OPEN/PERCUTANEOUS ILIAC ART W STNT PLMT&ANGIO PATRICE VSL UNILAT Bilateral 08/15/2017 REVSC OPN\PRQ ILIAC ART W\STNT PLMT & ANGIOP SAME VSL (WRVU 10) performed by Jake Montaño MD at [facility] OR ??? PRO THROMBOENDARTECTMY ILIOFEMORAL Left 08/15/2017 @ENDARTERECTOMY, ILIOFEMORAL W OR W/O PATCH GRAFT (WRVU 19.86) performed by Jake Montaño MD at [facility] MAIN OR ??? PRO THROMBOENDARTECTMY NECK, NECK INCIS Right 06/10/2019 @ENDARTERECTOMY, CAROTID, VERTEBRAL,SUBCLAVIAN W\WO PATCH GRAFT (WRVU 21.16) performed by Jake Montaño MD at [facility] MAIN OR ??? PRO UPPER GI ENDOSCOPY, BIOPSY 12/06/2012 EGD WITH BIOPSY performed by Mik Dumont MD at [facility] ENDOSCOPY ??? TUBAL LIGATION Family History History [...] in the last 7068 hours. Invalid input(s): [id number] No results for input(s): POCGLU in the last 168 hours. Heme No results for input(s): LDH, HAPTOGLOBIN, URICACID in the last 168 hours. ABG (Arterial Blood Gas) No results found for: PHART, PO2ART, ZNW2IXD, PDM5DJC Microbiology: Microbiology Results (Last 30 days) No [...] #Routine Diet: Daily Healthy Menu Choices/Cardiac diet ([facility]-Diet) DVT Prophylaxis: Lovenox GI Prophylaxis: Pantoprazole Code [...] Vargas MD - 03/08/2023 1:22 PM EDT [facility] Operative Note Patient Name: Lindsey Deleon : [id number] MR#: [id number] Case Date: 03/07/2023 Surgeon: Surgeon(s) and Role: * Mike Torres MD - Attending Co-Surgeon * Rahat Vargas MD - Attending Co-Surgeon * Alexander Gamez MD - Fellow * Anita Smith PA - Physician Crop Roller ? Preoperative diagnosis: aortic stenosis, severe/TAVR ?? [...] Output: (no urine output recorded) ? 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 Procedure Description: The patient was brought to the [facility] and placed upon the Housetra[facility] table in the supine position. Following administration of the sedation anesthetic the patient was prepped and draped using sterileprep. Left femoral and R radial arterial access was obtained utilizing Seldinger techniques. Angiography demonstrated positioning of the catheters above the femoral arterial bifurcation. Using similar techniques a 6 Georgian sheath was placed into the right common [...] valve was then crossed with a 6 Georgian AL-1 catheter and straight wire which was [...] directed aroundthe thoracic aortic arch into the stockbridge calcified annulus under fluoroscopy. Root angiography under [...] procedure well and was taken to the [facility] recovery room in hemodynamically stable condition. Attestation: Case Date: 03/07/2023 I was present and I participated during the entire procedure (does not need to include opening and closing). 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 RAHAT VARGAS MD 03/15/2023 * Plan of Care - Addison Farias RN - 03/08/2023 12:20 PM EDT Patient discharged to [facility], vitals as charted. No complaints of [...] Contact information for [facility] [place] [address] [address] [facility] [address] Transportation: family or friend will provide - [...] home Patient is insured through: Primary Insurance: [employer] Payor: JOSÉ MIGUEL SUAREZ / Plan: [place] / Product Type: *No Product type* / Secondary Insurance: N/A Prescription Coverage: Yes This plan was formulated with input from patient, and team. All are in agreement with plan. Mega Arciniega RN * Brief Op Note - Mike Torres MD - 03/07/2023 4:15 PM EDT Preliminary Cardiac Catheterization Procedure Note: Patient Name: Lindsey Deleon : [id number] MR#: [id number] Case Date: 03/07/2023 Injection Machine Operator: Surgeon(s) and Role: Panel 1: * Mike Torres MD - Primary * Alexander Gamez MD - Fellow * Anita Smith PA - Physician Crop Roller Panel 2: * Rahat Vargas MD - [...] No Patient is insured through: Primary Insurance: [employer] Payor: [employer] / Plan: [employer] / Product Type: *No Product type* / Secondary Insurance: N/A Last Physical Therapy Recommendation: with Last Occupational Therapy Recommendation: with Plan for discharge is: Home w/ Services Outpatient Agency/Support Group Needs: Homecare agency Home Health Services: Home Health Aide, Occupational Therapy, Physical Therapy, Registered Nurse, Wound care Agency Referrals: Not Applicable - [facility] following patient. Transportation: family or friend will [...] L iliofemoral endarterectomy, B TRE stent placement (2017) and R CEA for asymptomatic stenosis now [...] file Who is your DPOA-HC?: Child (Sammi Trev:daughter) Current Coping/Education/Information Needs: Patient reports understanding of [...] walker - standard Home Address confirmed as: [address] [facility] [address] Social & Family Supports: All names listed below confirmed with patient as current and correct Extended Emergency Contact Information Primary Emergency Contact: TrevSammi Address: [address], [place] [address] [place] [address] Mobile Relation: Child Secondary Emergency Contact: Bam Trevizo, [facility] Mobile Relation: Child Current Care Provided by: [...] Yes ; Prescription Coverage: Yes Preferred Pharmacy: [facility] [address] [facility] [address] [facility] - [address] [facility] [address] [id number] - [place], [place] - [address] [place] [id number] Status: Patient is a : No Primary Care Provider confirmed: Vanita Churchill, [employer] DIVISION DIRECTOR [phone] Patient/Caregiver Goals of Treatment: Have procedure and return home Potential Needs for Transition of Care: home health care Agency Referrals: patient requests referral to: [facility] [address] [facility] [address] PHONE: [phone] FAX: [phone] Transportation: no concerns Transportation Anticipated: family or friend will provide Concerns to be Addressed: discharge planning, adjustment to diagnosis/illness, healthcare administrative assistant support, home safety Assessment: Patient is [...] Danilo Lobato RN CM(remote) Mega Arciniega RN Pager [phone] documented in this encounter Plan of Treatment Upcoming Encounters Date Type Department Care Team (Late st Contact Info) Description 02/06/2025 2:40 PM EDT Office Visit Cardiology at [address] [place] [address] Rigoberto Diaz MD [facility] [place] [address] Scheduled Orders Name Type Priority Associated Diagnoses [...] Heart Cath W/Inj L Ventriculography, Img S&I ([id number]) 03/07/2023 1:57 PM EDT aortic stenosis, severe/TAVR [...] 4:02 AM EDT DIFFERENTIAL, AUTOMATED Routine 03/06/20 23 4:02 AM EDT HC CBC,PLT & AUTO DIFF Routine 3 4:02 AM EDT HC PHOSPHORUS, SERUM Routine 03/06/2023 4:02 AM EDT HC MAGNESIUM, SERUM Routine 03/06/2023 4 :02 AM EDT BASIC METABOLIC PANEL (NON-FASTING) Routine 03/06/2023 4:02 AM EDT HEMOGRAM Routine 03/05/2023 3:50 AM EDT DIFFERENTIAL, AUTOMATED Routine 03/05/20 23 3:50 AM EDT HC CBC,PLT & AUTO DIFF Routine 3 3:50 AM EDT HC PHOSPHORUS, SERUM Routine [...] Glucose Lvl 111 65 - 199 mg/dL [facility] Comment:Diabetes: >=200 mg/d L plus symptoms BUN 21(H) 8 - 18 mg/dL [facility] Creatinine 1.18 0.70 - 1.20 mg/dL [facility] Sodium 139 135 - 145 mmol/L [facility] Potassium 4.3 3.5 - 5.0 mmol/L [facility] Comment: Please note: ??Patients with WBC >100,000 may have falsely elevated Potassium levels. ??For accurate Potassium quantification in these patients send serum separator tube (gold top) for subsequent determinations. ??Contact the Clinical Chemistry Laboratory if there are any questions. Chloride 102 98 - 107 mmol/L [facility] CO2 26 22 - 31 mmol/L [facility] Anion Gap 11 5 - 15 mmol/L [facility] Calcium 9.4 8.5 - 10.5 mg/dL [facility] Total Protein 7.3 6.1 - 8.0 g/dL [facility] Albumin 4.3 3.2 - 5.2 g/dL [facility] AST 17 0 - 30 unit/L [facility] ALT 13 0 - 30 unit/L [facility] Alk Phos 73 35 - 105 unit/L [facility] Total Bilirubin 0.3 0.2 - 1.3 mg/dL [facility] Estimated GFR 48(L) >=60 mL/min/1. 73 m?? [facility] Comment: This patient's estimated GFR [...] Lab Rahat Vargas MD CHEMISTRY ORDERABLE S [facility] [place] [address] * EKG 12 Lead (03/08/2023 11:05 AM EDT) Ventricular rate 67 BPM MUSE SYSTEM Atrial Rate 67 BPM MUSE SYSTEM P-R Interval 158 ms MUSE SYSTEM QRS Duration 132 ms MUSE SYSTEM Q-T Interval 442 ms MUSE SYSTEM QTC Calculated (Bezet) 467 ms MUSE SYSTEM Calculated P Cloverdale 63 degrees MUSE SYSTEM Calculated R Clover[place] -37 degrees MUSE SYSTEM Calculated T [place] 13 degrees MUSE SYSTEM INTERPRETATION Normal sinus rhythm Left axis deviation Right bundle branch block Abnormal ECG When compared with ECG of 08-MAR-2023 05:34, No significant change was found Confirmed by MD Valenzuela Danette ([id number]) on 03/08/2023 3:20:36 PM MUSE SYSTEM 03/08/2023 11:0 5 AM EDT 03/08/2023 3:20 PM EDT Rahat Vargas MD ECG ORDERABLES MUSE SYSTEM * Ziopatch 48 Hrs-15 Days (03/08/2023 10:01 AM EDT) Anatomical Region Laterality Modality Other Narrative 03/28/2023 3:43 PM EDT Images from the original result were not included. [facility] ? Zio Patch Ambulatory Cardiac Event [...] tab. ??For patients accessing the study from [facility] (My Chart), click on the link or links found in the IMAGES area below the text of the report. ? Randy Chatman MD, FA, [facility] Suhail Padilla APRN CARDIAC SERVICES OR DERABLES * EKG 12 Lead (03/08/2023 5:34 AM EDT) Ventricular rate 98 BPM MUSE SYSTEM Atrial Rate 98 BPM MUSE SYSTEM P-R Interval 168 ms MUSE SYSTEM QRS Duration 128 ms MUSE SYSTEM Q-T Interval 384 ms MUSE SYSTEM QTC Calculated (Bezet) 490 ms MUSE SYSTEM Calculated P Cloverdale 59 degrees MUSE SYSTEM Calculated R [place] -39 degrees MUSE SYSTEM Calculated T [place] 8 degrees MUSE SYSTEM INTERPRETATION Normal sinus rhythm Left axis deviation Right bundle branch block Abnormal ECG When compared with ECG of 07-MAR-2023 15:44, (unconfirmed) Left posterior fascicular block is no longer Present I personally reviewed the tracing and edited the fellows interpretation Confirmed by fellow MD Yina, Galo ([id number]) on 03/08/2023 5:20:12 PM Confirmed by MD DAVID, MARTIR ([id number]) on 03/08/2023 9:28:11 PM MUSE SYSTEM 03/08/2023 5:34 AM EDT 03/08/2023 9:28 PM EDT Rahat Vargas MD ECG ORDERABLES MUSE SYSTEM * (ABNORMAL) Differential, Automated (03/08/2023 4:13 AM EDT) Neutrophils % 73.3 % [facility] Neutr Abs (ANC) 8.45(H) 1.70 - 6.10 x10(3)/[facility] Lymphocytes % 14.9 % [facility] Lymphocytes Abs 1.7 0.9 - 3.2 x10(3)/[facility] Monocytes % 10.9 % [facility] Monocyte Abs 1.3(H) 0.3 - 0.9 x10(3)/[facility] Eosinophils % 0.1 % [facility] Eosinophils Abs 0.0 0.0 - 0.4 x10(3)/[facility] Basophils % 0.3 % [facility] Basophils Abs 0.0 0.0 - 0.1 x10(3)/[facility] Immature Gran % 0.50 % [facility] Comment: Immature granulocytes(IG's)percentage and absolute count will include metamyelocytes, myelocytes, and promyelocytes. Blood smears from CBCs yielding IG's will be scanned manually for concordance. If this scan disagrees with the automated IG or if promyelocytes are noted, a manual differential will be performed. [place] Abs 0.06(H) 0.00 - 0.04 x10(3)/[facility] Blood 03/08/2023 4:13 AM EDT 03/08/2023 4:29 AM EDT Narrative Resulting Agency Comment Spec In Lab Bam SALINAS HEMATOLOGY ORDERABLE S [facility] [place] [address] * (ABNORMAL) Hemogram (03/08/2023 4:13 AM EDT) WBC 11.5(H) 4.0 - 9.5 x10(3)/[facility] RBC 3.43(L) 4.00 - 5.21 x10(6)/[facility] Hemoglobin 11.1(L) 11.7 - 15.5 g/dL [facility] Hematocrit 32.9(L) 35.7 - 45.8 % [facility] MCV 95.9(H) 82.6 - 94.4 [facility] MCH 32.4(H) 27.1 - 32.0 pg [facility] MCHC 33.7 31.7 - 35.0 g/dL [facility] Platelets 216 145 - 357 x10(3)/[facility] RDWSD 43.8 37.0 - 46.0 [facility] RDWCV 12.3 11.5 - 14.1 % [facility] MPV 9.6 7.6 - 12.9 [facility] nRBC % Auto 0.0 % [facility] nRBC Abs Auto 0.000 0.000 - 0.000 x10(3)/[facility] Blood 03/08/2023 4:13 AM EDT 03/08/2023 4:29 AM EDT Narrative Resulting Agency Comment Spec In Lab Bam SALINAS HEMATOLOGY ORDERABLE S [facility] [place] [address] * (ABNORMAL) Basic Metabolic Panel (non-fasting) (03/08/2023 4:13 AM EDT) Glucose Lvl 116 65 - 199 mg/dL [facility] Comment:Diabetes: >=200 mg/d L plus symptoms BUN 21(H) 8 - 18 mg/dL [facility] Creatinine 0.89 0.70 - 1.20 mg/dL [facility] Sodium 134(L) 135 - 145 mmol/L [facility] Potassium 3.8 3.5 - 5.0 mmol/L [facility] Comment: Please note: ??Patients with WBC >100,000 may have falsely elevated Potassium levels. ??For accurate Potassium quantification in these patients send serum separator tube (gold top) for subsequent determinations. ??Contact the Clinical Chemistry Laboratory if there are any questions. Chloride 99 98 - 107 mmol/L [facility] CO2 23 22 - 31 mmol/L [facility] Anion Gap 12 5 - 15 mmol/L [facility] Calcium 9.2 8.5 - 10.5 mg/dL [facility] Estimated GFR 68 >=60 mL/min/1. 73 m?? [facility] Comment: This patient's estimated GFR [...] MD CHEMISTRY ORDERABLE S Performing Organization Address City/[facility]/ZIP Co de Phone Number [facility] [place] [address] * (ABNORMAL) Hemoglobin (03/07/2023 8:10 PM EDT) Hemoglobin 11.1(L) 11.7 - 15.5 g/dL [facility] Blood 03/07/2023 8:10 PM EDT 03/07/2023 8:21 PM EDT Narrative Resulting Agency Comment Spec In Lab Rahat Vargas MD HEMATOLOGY ORDERABL ES Performing Organization Address City/[facility]/ZIP Co de Phone Number [facility] [place] [address] * Potassium (03/07/2023 8:10 PM EDT) Potassium 4.1 3.5 - 5.0 mmol/L [facility] Comment: Please note: ??Patients with WBC >100,000 may have falsely elevated Potassium levels. ??For accurate Potassium quantification in these patients send serum separator tube (gold top) for subsequent determinations. ??Contact the Clinical Chemistry Laboratory if there are any questions. Blood 03/07/2023 8:10 PM EDT 03/07/2023 8:21 PM EDT Narrative Resulting Agency Comment Spec In Lab Rahat Vargas MD CHEMISTRY ORDERABLE S [facility] [place] [address] * ECHO LMTD W/O CONTRAST W LMTD SPEC DOPP COLOR DOPP (03/07/2023 3:48 PM EDT) EF 75 HEARTLAB SYSTEM Anatomical Region Laterality Modality Cardiac Other 03/07/2023 2:28 PM EDT Narrative 03/07/2023 4:27 PM EDT ? Echocardiogram Report Name: DELEON, LINDSEY D ? Study Date: 03/07/2023 02:28 PM ? Patient Location: : 1950 ? Height: 160 cm ? Account: [id number] Age: 72 yrs ? Weight: 79 kg Gender: Female ?BSA: 1.8 m2 Ordering Physician: BRANDON CROWLEY Referring Physician: ALEXANDER GAMEZ Performed By: Hugh Solomon RDCS Reason For Study: Guidance for TAVR procedure Interpreting Fellow: Rigoberto Humphreys. Exam Location: [facility]. Interpretation Summary PRE-TAVR: There is severe [...] is no pericardial effusion. Procedure Limited - 52957. Color Doppler - 17878. limited spectral 62672. Suboptimal quality. This study is limited because [...] DELEON Study Date: 302:28 PM Patient Location: : 1950 Height: 160 cm Account: [id number] Age: 72 yrs Weight: 79 kg Gender: Female BSA: 1.8 m2 Ordering Physician: BRANDON CROWLEY Referring Physician: ALEXANDER GAMEZ Performed By: Hugh Solomon RDCS Reason For Study: Guidance for TAVR procedure Interpreting Fellow: Rigoberto Humphreys. Exam Location: [facility]. Interpretation Summary PRE-TAVR: There is severe [...] There is nopericardial effusion. Procedure Limited - 84594. Color Doppler - 08163. limited spectral 08111.Suboptimal quality. This study is limited because of [...] (Bezet) 499 ms MUSE SYSTEM Calculated P Cloverdale 75 degrees MUSE SYSTEM Calculated R [place] 115 degrees MUSE SYSTEM Calculated T Clover[place] -3 degrees MUSE SYSTEM INTERPRETATION Suspect limb [...] Modality Other Narrative 03/09/2023 11:57 AM EDT ?[facility] ? Cardiac Catheterization/Intervention Report ? Patient Name: Deleon, Lindsey D. ? Procedure Date: 03/07/2023 ? A #: [id number] ? Primary Physician: Brian, Miek T ? Case #: [id number] ? File Name: [id number] ? Catheterization Order Number: [id number] ? [facility] ? Final Report [place], [place] ? Patient Name: ? Lindsey D. Deleon ?ID#: ?[id number] ? : ?1950 ? Procedure Date: ? March 07, 2023 ? Case #: ? [id number] ? Room: ? 6 ? Case Physician: ? Mike Torres M.D. ?Start: ?14:38 ?Fellow: ? Wassim Dalton Gamez ?Admission: ??03/01/2023 ? Referring Physician: ??Wassim Dalton Gamez ? Procedures: ?* Aortic Root Aortogram ?* Transcatheter Aortic Valve Replacement ?* Vascular Closure Device Deployment ?* Temporary Pacemaker Insertion In Housetrailer Servicer ?* Arterial Line / Sheath Insert ?* Cardiac Fluoro ?* Access Site Angiography ?* Arterial Blood Gases ?* Anesthesia ?* Transthoracic Echo During Cath ? History ?Lindsey D. Deleon is a 72 year old woman. [...] was designated as ASA Class III. The [facility] clinical ?frailty scale is 4: Vulnerable. [...] Lenard 3 Ultra RESILIA 23 mm THV (s/y=[id number]) transcatheter ?valve was inserted using standard technique. 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 ?Recommended anti-platelet/anti-thrombotic regimen: ?Start aspirin 81 mg daily now and continue for indefinitely. ?These recommendations are made at the time of the intervention. Patient ?and provider preferences or a changing clinical situation may require ?modification of this regimen. Consult [facility] Interventional Cardiology for ?questions. ? Conclusions: ?* [...] the access site angiography, temporary ?pacemaker in shrimp pond laborer, arterial line / sheath insert, cardiac fluoro, ?vascular closure device, ABG, transthoracic echo , TAVR, aortic root ?aortogram and anesthesia. ? Mike Torres M.D. ? Electronically Signed by: Mike Torres M.D. ? Report Finalized: 03/09/2023 ??11:52 ? Mike Torres MD CARDIAC CATH ORDERAB LES * (ABNORMAL) Point of Care Blood Gas Historical (03/07/2023 2:20 PM EDT) POC pH 7.43 7.35 - 7.45 [facility] POC PCO2 37 35 - 45 mmHg [facility] POC PO2 130(H) 85 - 104 mmHg [facility] POC Base Excess 0.0 -3.0 - 3.0 mmol/L [facility] POC HCO3 24.6 20.0 - 26.0 mmol/L [facility] POC Sodium 138 135 - 145 mmol/L [facility] POC Potassium 4.3 3.5 - 5.0 mmol/L [facility] POC Ionized Ca 1.25 1.15 - 1.33 mmol/L [facility] POC Hematocrit 36.0 34.0 - 45.0 % [facility] POC Calc Hgb 12.2 11.2 - 15.7 g/dL [facility] Comment:The calculation of h emoglobin from hematocrit assumes a normal MCHC. POC Bgas Loc CC LAB [facility] Blood 03/07/2023 2:20 PM EDT 03/09/2023 12:00 PM EDT Rahat Vargas MD CHEMISTRY ORDERABLE S Performing Organization Address City/[facility]/ZIP Co de Phone Number [facility] [place] [address] * Type and Screen Validity (03/07/2023 3:35 AM EDT) [facility] T&S only valid at [facility] LABORATORY Comment:This Type and Screen result is only valid at the [facility] Blood 03/07/2023 3:35 AM EDT 03/07/2023 3:42 AM EDT Narrative Resulting Agency Comment Spec In Lab Edwige Elisa Nieves APRN BLOOD BANK LAB ORDER TANA Performing Organization Address [facility]/ZIP Co de Phone Number [facility] [place] [address] * ABORH Recheck Status (03/07/2023 3:35 AM EDT) [facility] ABORH Type Recheck Completed [facility] Blood 03/07/2023 3:35 AM EDT 03/07/2023 3:42 AM EDT Narrative Resulting Agency Comment Spec In Lab Edwige Pérez Lizbeth KYARA BLOOD BANK LAB ORDER TANA Performing Organization Address City/[facility]/ZIP Co de Phone Number [facility] [place] [address] * (ABNORMAL) Differential, Automated (03/07/2023 3:35 AM EDT) [facility] Neutrophils % 56.8 % [facility] Neutr Abs (ANC) 3.80 1.70 - 6.10 x10(3)/mc L [facility] Lymphocytes % 28.0 % [facility] Lymphocytes Abs 1.9 0.9 - 3.2 x10(3)/[facility] LABORATORY Monocytes % 14.0 % [facility] Monocyte Abs 0.9 0.3 - 0.9 x10(3)/[facility] LABORATORY Eosinophils % 0.1 % [facility] Eosinophils Abs 0.0 0.0 - 0.4 x10(3)/[facility] LABORATORY Basophils % 0.4 % [facility] Basophils Abs 0.0 0.0 - 0.1 x10(3)/[facility] LABORATORY Immature Gran % 0.70 % [facility] Comment: Immature granulocytes(IG's)percentage and absolute count will include metamyelocytes, myelocytes, and promyelocytes. Blood smears from CBCs yielding IG's will be scanned manually for concordance. If this scan disagrees with the automated IG or if promyelocytes are noted, a manual differential will be performed. [place] Gran Abs 0.05(H) 0.00 - 0.04 x10(3)/[facility] LABORATORY Blood 03/07/2023 3:35 AM EDT 03/07/2023 3:56 AM EDT Narrative Resulting Agency Comment Spec In Lab Mega Gant MD HEMATOLOGY ORDERABLE S [facility] [place] [address] * (ABNORMAL) Hemogram (03/07/2023 3:35 AM EDT) WBC 6.7 4.0 - 9.5 x10(3)/[facility] LABORATORY RBC 3.64(L) 4.00 - 5.21 x10(6)/[facility] LABORATORY Hemoglobin 11.8 11.7 - 15.5 g/dL [facility] Hematocrit 35.1(L) 35.7 - 45.8 % [facility] MCV 96.4(H) 82.6 - 94.4 fL [facility] MCH 32.4(H) 27.1 - 32.0 pg [facility] MCHC 33.6 31.7 - 35.0 g/dL [facility] Platelets 241 145 - 357 x10(3)/[facility] LABORATORY RDWSD 43.4 37.0 - 46.0 [facility] LABORATORY RDWCV 12.2 11.5 - 14.1 % [facility] MPV 9.7 7.6 - 12.9 [facility] LABORATORY nRBC % Auto 0.0 % [facility] nRBC Abs Auto 0.000 0.000 - 0.000 x10(3)/[facility] LABORATORY Blood 03/07/2023 3:35 AM EDT 03/07/2023 3:56 AM EDT Narrative Resulting Agency Comment Spec In Lab Mega Gant MD HEMATOLOGY ORDERABLE S [facility] [place] [address] * Antibody screen (03/07/2023 3:35 AM EDT) Ab Screen Interp Negative [facility] Expires at [id number] on: 03/10/2023 [facility] Blood 03/07/2023 3:35 AM EDT 03/07/2023 3:42 AM EDT Narrative Resulting Agency Comment Spec In Lab Edwige Nieves APRN BLOOD BANK LAB ORDER TANA [facility] [place] [address] * ABO/Rh Typing (03/07/2023 3:35 AM EDT) ABORH Type O Pos [facility] Blood 03/07/2023 3:35 AM EDT 03/07/2023 3:42 AM EDT Narrative Resulting Agency Comment Spec In Lab Edwige Elisa Nieves APRN BLOOD BANK LAB ORDER TANA [facility] [place] [address] * Magnesium (03/07/2023 3:35 AM EDT) Magnesium 0.98 0.69 - 1.07 mmol/L [facility] Blood 03/07/2023 3:35 AM EDT 03/07/2023 3:55 AM EDT Narrative Resulting Agency Comment Spec In Lab Chong Campbell MD CHEMISTRY ORDERABLE S Performing Organization Address [facility] Co de Phone Number [facility] [place] [address] * Phosphorus (03/07/2023 3:35 AM EDT) Phosphorus 3.8 2.5 - 4.5 mg/dL [facility] Blood 03/07/2023 3:35 AM EDT 03/07/2023 3:55 AM EDT Narrative Resulting Agency Comment Spec In Lab Chong Campbell MD CHEMISTRY ORDERABLE S Performing Organization Address [facility]/ZIP Co de Phone Number [facility] [place] [address] * (ABNORMAL) Basic Metabolic Panel (non-fasting) (03/07/2023 3:35 AM EDT) Glucose Lvl 97 65 - 199 mg/dL [facility] Comment:Diabetes: >=200 mg/d L plus symptoms BUN 25(H) 8 - 18 mg/dL [facility] Creatinine 1.05 0.70 - 1.20 mg/dL [facility] Sodium 132(L) 135 - 145 mmol/L [facility] Potassium 3.6 3.5 - 5.0 mmol/L [facility] Comment: Please note: ??Patients with WBC >100,000 may have falsely elevated Potassium levels. ??For accurate Potassium quantification in these patients send serum separator tube (gold top) for subsequent determinations. ??Contact the Clinical Chemistry Laboratory if there are any questions. Chloride 99 98 - 107 mmol/L [facility] CO2 23 22 - 31 mmol/L [facility] Anion Gap 10 5 - 15 mmol/L [facility] Calcium 9.1 8.5 - 10.5 mg/dL [facility] Estimated GFR 56(L) >=60 mL/min/1. 73 m?? [facility] Comment: This patient's estimated GFR [...] Lab Chong Campbell MD CHEMISTRY ORDERABLE S [facility] [place] [address] * Blood culture (03/06/2023 11:16 AM EDT) Blood Culture No growth at 5 days. [facility] Blood STRUCTURE OF RIGHT HAND / Unknown 03/06/2023 11:16 AM EDT 03/06/2023 12:45 PM EDT Comment:#2 Narrative Resulting Agency Comment Spec In Lab Brandon Crowley MD MICROBIOLOGY - BLOOD ORDERABLES Performing Organization Address [facility]/ZIP Co de Phone Number [facility] [place] [address] * Blood culture (03/06/2023 11:09 AM EDT) Blood Culture No growth at 5 days. [facility] Blood ANTECUBITAL REGION STRUCTURE / Unknown 03/06/2023 11:09 AM EDT 03/06/2023 12:45 PM EDT Comment:#1 Narrative Resulting Agency Comment Spec In Lab Brandon Crowley MD MICROBIOLOGY - BLOOD ORDERABLES Performing Organization Address [facility] Co de Phone Number [facility] [place] [address] * XR Chest One View (03/06/2023 8:45 [...] who have questions please contact the health respiratory care faculty that requested your imaging first. ? Narrative 03/06/2023 8:49 AM EDT EXAMINATION: XR [...] patients who have questions please contactthe health respiratory care faculty that requested your imaging first. Brandon Crowley MD IMG DX ORDERABLES * Urinalysis with reflex Culture (03/06/2023 8:28 AM EDT) Glucose UA Negative Negative mg/dL [facility] Protein UA Negative Negative mg/dL [facility] Bilirubin UA Negative Negative mg/dL [facility] Comment: Clinical correlation required for positive Urine Bilirubin results as false positive may occur with some drugs and drug related products. If a false positive is suspected a serum total bilirubin should be considered if clinically indicated. Urobilinogen UA Normal Normal mg/dL [facility] pH UA 6.0 5.0 - 8.0 [facility] Blood UA Negative Negative mg/dL [facility] Ketones UA Negative Negative mg/dL [facility] Nitrite UA Negative Negative [facility] Leukocytes UA Negative Negative [facility] Y [facility] Appearance UA Clear Clear [facility] Spec [place] UA 1.008 1.005 - 1.030 [facility] Color UA Yellow Yellow [facility] Culture Reflexed No [facility] Urine 03/06/2023 8:28 AM EDT 03/06/2023 10:27 AM EDT Narrative Resulting Agency Comment Spec In Lab Brandon Crowley MD URINE ORDERABLES [facility] [place] [address] * (ABNORMAL) Differential, Automated (03/06/2023 4:02 AM EDT) Neutrophils % 57.3 % [facility] Neutr Abs (ANC) 3.65 1.70 - 6.10 x10(3)/mc L [facility] Lymphocytes % 28.1 % [facility] Lymphocytes Abs 1.8 0.9 - 3.2 x10(3)/mc L [facility] Monocytes % 13.0 % [facility] Monocyte Abs 0.8 0.3 - 0.9 x10(3)/mc L [facility] Eosinophils % 0.2 % [facility] Eosinophils Abs 0.0 0.0 - 0.4 x10(3)/mc L [facility] Basophils % 0.3 % [facility] Basophils Abs 0.0 0.0 - 0.1 x10(3)/mc L [facility] Immature Gran % 1.10 % [facility] Comment: Immature granulocytes(IG's)percentage and absolute count will include metamyelocytes, myelocytes, and promyelocytes. Blood smears from CBCs yielding IG's will be scanned manually for concordance. If this scan disagrees with the automated IG or if promyelocytes are noted, a manual differential will be performed. [place] Gran Abs 0.07(H) 0.00 - 0.04 x10(3)/mc L [facility] Blood 03/06/2023 4:02 AM EDT 03/06/2023 4:43 AM EDT Narrative Resulting Agency Comment Spec In Lab Mega Gant MD HEMATOLOGY ORDERABLE S [facility] [place] [address] * (ABNORMAL) Hemogram (03/06/2023 4:02 AM EDT) WBC 6.4 4.0 - 9.5 x10(3)/[facility] LABORATORY RBC 3.70(L) 4.00 - 5.21 x10(6)/[facility] LABORATORY Hemoglobin 12.1 11.7 - 15.5 g/dL [facility] Hematocrit 35.5(L) 35.7 - 45.8 % [facility] MCV 95.9(H) 82.6 - 94.4 fL [facility] MCH 32.7(H) 27.1 - 32.0 pg [facility] MCHC 34.1 31.7 - 35.0 g/dL [facility] Platelets 258 145 - 357 x10(3)/[facility] LABORATORY RDWSD 43.3 37.0 - 46.0 [facility] LABORATORY RDWCV 12.2 11.5 - 14.1 % [facility] MPV 9.7 7.6 - 12.9 [facility] LABORATORY nRBC % Auto 0.0 % [facility] nRBC Abs Auto 0.000 0.000 - 0.000 x10(3)/[facility] LABORATORY Blood 03/06/2023 4:02 AM EDT 03/06/2023 4:43 AM EDT Narrative Resulting Agency Comment Spec In Lab Mega Gant MD HEMATOLOGY ORDERABLE S Performing Organization Address City/[facility]/ZIP Co de Phone Number [facility] [place] [address] * Magnesium (03/06/2023 4:02 AM EDT) Magnesium 0.94 0.69 - 1.07 mmol/L [facility] Blood 03/06/2023 4:02 AM EDT 03/06/2023 4:43 AM EDT Narrative Resulting Agency Comment Spec In Lab Chong Campbell MD CHEMISTRY ORDERABLE S Performing Organization Address [facility] Co de Phone Number [facility] [place] [address] * (ABNORMAL) Phosphorus (03/06/2023 4:02 AM EDT) Phosphorus 4.8(H) 2.5 - 4.5 mg/dL [facility] Blood 03/06/2023 4:02 AM EDT 03/06/2023 4:43 AM EDT Narrative Resulting Agency Comment Spec In Lab Chong Campbell MD CHEMISTRY ORDERABLE S Performing Organization Address City/[facility]/ZIP Co de Phone Number [facility] [place] [address] * (ABNORMAL) Basic Metabolic Panel (non-fasting) (03/06/2023 4:02 AM EDT) Glucose Lvl 98 65 - 199 mg/dL [facility] Comment:Diabetes: >=200 mg/d L plus symptoms BUN 27(H) 8 - 18 mg/dL [facility] Creatinine 1.23(H) 0.70 - 1.20 mg/dL [facility] Sodium 132(L) 135 - 145 mmol/L [facility] Potassium 3.7 3.5 - 5.0 mmol/L [facility] Comment: Please note: ??Patients with WBC >100,000 may have falsely elevated Potassium levels. ??For accurate Potassium quantification in these patients send serum separator tube (gold top) for subsequent determinations. ??Contact the Clinical Chemistry Laboratory if there are any questions. Chloride 95(L) 98 - 107 mmol/L [facility] CO2 23 22 - 31 mmol/L [facility] Anion Gap 14 5 - 15 mmol/L [facility] Calcium 9.5 8.5 - 10.5 mg/dL [facility] Estimated GFR 46(L) >=60 mL/min/1. 73 m?? [facility] Comment: This patient's estimated GFR [...] Lab Chong Campbell MD CHEMISTRY ORDERABLE S [facility] [place] [address] * (ABNORMAL) Differential, Automated (03/05/2023 3:50 AM EDT) Neutrophils % 55.4 % [facility] Neutr Abs (ANC) 4.15 1.70 - 6.10 x10(3)/mc L [facility] Lymphocytes % 30.4 % [facility] Lymphocytes Abs 2.3 0.9 - 3.2 x10(3)/[facility] LABORATORY Monocytes % 12.3 % [facility] Monocyte Abs 0.9 0.3 - 0.9 x10(3)/[facility] LABORATORY Eosinophils % 0.1 % [facility] Eosinophils Abs 0.0 0.0 - 0.4 x10(3)/[facility] LABORATORY Basophils % 0.5 % [facility] Basophils Abs 0.0 0.0 - 0.1 x10(3)/[facility] LABORATORY Immature Gran % 1.30 % [facility] Comment: Immature granulocytes(IG's)percentage and absolute count will include metamyelocytes, myelocytes, and promyelocytes. Blood smears from CBCs yielding IG's will be scanned manually for concordance. If this scan disagrees with the automated IG or if promyelocytes are noted, a manual differential will be performed. [place] Gran Abs 0.10(H) 0.00 - 0.04 x10(3)/[facility] LABORATORY Blood 03/05/2023 3:50 AM EDT 03/05/2023 4:19 AM EDT Narrative Resulting Agency Comment Spec In Lab Mega Gant MD HEMATOLOGY ORDERABLE S [facility] [place] [address] * (ABNORMAL) Hemogram (03/05/2023 3:50 AM EDT) WBC 7.5 4.0 - 9.5 x10(3)/[facility] LABORATORY RBC 3.57(L) 4.00 - 5.21 x10(6)/[facility] LABORATORY Hemoglobin 11.9 11.7 - 15.5 g/dL [facility] Hematocrit 35.4(L) 35.7 - 45.8 % [facility] MCV 99.2(H) 82.6 - 94.4 fL [facility] MCH 33.3(H) 27.1 - 32.0 pg [facility] MCHC 33.6 31.7 - 35.0 g/dL [facility] Platelets 228 145 - 357 x10(3)/[facility] LABORATORY RDWSD 45.3 37.0 - 46.0 [facility] LABORATORY RDWCV 12.5 11.5 - 14.1 % [facility] MPV 9.4 7.6 - 12.9 [facility] LABORATORY nRBC % Auto 0.0 % [facility] nRBC Abs Auto 0.000 0.000 - 0.000 x10(3)/[facility] LABORATORY Blood 03/05/2023 3:50 AM EDT 03/05/2023 4:19 AM EDT Narrative Resulting Agency Comment Spec In Lab Mega Gant MD HEMATOLOGY ORDERABLE S [facility] [place] [address] * Magnesium (03/05/2023 3:50 AM EDT) Magnesium 1.03 0.69 - 1.07 mmol/L [facility] Blood 03/05/2023 3:50 AM EDT 03/05/2023 4:18 AM EDT Narrative Resulting Agency Comment Spec In Lab Chong Campbell MD CHEMISTRY ORDERABLE S [facility] [place] [address] * (ABNORMAL) Phosphorus (03/05/2023 3:50 AM EDT) Phosphorus 5.6(H) 2.5 - 4.5 mg/dL [facility] Blood 03/05/2023 3:50 AM EDT 03/05/2023 4:18 AM EDT Narrative Resulting Agency Comment Spec In Lab Chong Campbell MD CHEMISTRY ORDERABLE S [facility] [place] [address] * (ABNORMAL) Basic Metabolic Panel (non-fasting) (03/05/2023 3:50 AM EDT) Glucose Lvl 104 65 - 199 mg/dL [facility] Comment:Diabetes: >=200 mg/d L plus symptoms BUN 31(H) 8 - 18 mg/dL [facility] Creatinine 1.69(H) 0.70 - 1.20 mg/dL [facility] Sodium 133(L) 135 - 145 mmol/L [facility] Potassium 4.4 3.5 - 5.0 mmol/L [facility] Comment: Please note: ??Patients with WBC >100,000 may have falsely elevated Potassium levels. ??For accurate Potassium quantification in these patients send serum separator tube (gold top) for subsequent determinations. ??Contact the Clinical Chemistry Laboratory if there are any questions. Chloride 96(L) 98 - 107 mmol/L [facility] CO2 24 22 - 31 mmol/L [facility] Anion Gap 13 5 - 15 mmol/L [facility] Calcium 9.5 8.5 - 10.5 mg/dL [facility] Estimated GFR 31(L) >=60 mL/min/1. 73 m?? [facility] Comment: This patient's estimated GFR [...] MD CHEMISTRY ORDERABLE S Performing Organization Address City/[facility]/ZIP Co de Phone Number [facility] [place] [address] * Troponin (03/04/2023 10:45 PM EDT) Troponin-T HS 13 <=14 ng/L [facility] Comment: This patient's troponin T [...] troponin value can be found in the [facility] Laboratory Test Catalog Troponin - [facility] Laboratory Test Catalog Reference: Fourth Raymond Definition of Myocardial Infarction. Journal of the [employer] 2018;72:3039-0255 Blood 03/04/2023 10:4 5 PM EDT 03/04/2023 10:49 PM EDT Narrative Resulting Agency Comment Spec In Lab Brandon Crowley MD CHEMISTRY ORDERABLES Performing Organization Address City/[facility]/ZIP Co de Phone Number [facility] [place] [address] * EKG 12 Lead (03/04/2023 8:24 PM EDT) Ventricular rate 66 BPM MUSE SYSTEM Atrial Rate 66 BPM MUSE SYSTEM P-R Interval 148 ms MUSE SYSTEM QRS Duration 134 ms MUSE SYSTEM Q-T Interval 454 ms MUSE SYSTEM QTC Calculated (Bezet) 475 ms MUSE SYSTEM Calculated P [place] 63 degrees MUSE SYSTEM Calculated R [place] -64 degrees MUSE SYSTEM Calculated T [place] 26 degrees MUSE SYSTEM INTERPRETATION Normal sinus [...] PM EDT) Troponin-T HS 11 <=14 ng/L [facility] Comment: This patient's troponin T [...] troponin value can be found in the [facility] Laboratory Test Catalog Troponin - [facility] Test Catalog Reference: Fourth Raymond Definition of Myocardial Infarction. Journal of the [employer] College [employer] 2018;72:[id number] Blood 03/04/2023 8:10 PM EDT 03/04/2023 8:18 PM EDT Narrative Resulting Agency Comment Spec In Lab Brandon Crowley MD CHEMISTRY ORDERABLES [facility] [place] [address] * (ABNORMAL) Differential, Automated (03/04/2023 5:17 AM EDT) Neutrophils % 67.7 % [facility] Neutr Abs (ANC) 5.10 1.70 - 6.10 x10(3)/mc L [facility] Lymphocytes % 21.0 % [facility] Lymphocytes Abs 1.6 0.9 - 3.2 x10(3)/mc L [facility] Monocytes % 9.3 % [facility] Monocyte Abs 0.7 0.3 - 0.9 x10(3)/mc L [facility] Eosinophils % 0.3 % [facility] Eosinophils Abs 0.0 0.0 - 0.4 x10(3)/mc L [facility] Basophils % 0.5 % [facility] Basophils Abs 0.0 0.0 - 0.1 x10(3)/mc L [facility] Immature Gran % 1.20 % [facility] Comment: Immature granulocytes(IG's)percentage and absolute count will include metamyelocytes, myelocytes, and promyelocytes. Blood smears from CBCs yielding IG's will be scanned manually for concordance. If this scan disagrees with the automated IG or if promyelocytes are noted, a manual differential will be performed. [place] Gran Abs 0.09(H) 0.00 - 0.04 x10(3)/mc L [facility] Blood 03/04/2023 5:17 AM EDT 03/04/2023 5:29 AM EDT Narrative Resulting Agency Comment Spec In Lab Mega Gant MD HEMATOLOGY ORDERABLE S [facility] [place] [address] * (ABNORMAL) Hemogram (03/04/2023 5:17 AM EDT) WBC 7.5 4.0 - 9.5 x10(3)/[facility] LABORATORY RBC 3.71(L) 4.00 - 5.21 x10(6)/[facility] LABORATORY Hemoglobin 12.1 11.7 - 15.5 g/dL [facility] Hematocrit 36.6 35.7 - 45.8 % [facility] MCV 98.7(H) 82.6 - 94.4 fL [facility] MCH 32.6(H) 27.1 - 32.0 pg [facility] MCHC 33.1 31.7 - 35.0 g/dL [facility] Platelets 254 145 - 357 x10(3)/[facility] LABORATORY RDWSD 45.9 37.0 - 46.0 [facility] LABORATORY RDWCV 12.7 11.5 - 14.1 % [facility] MPV 9.1 7.6 - 12.9 [facility] LABORATORY nRBC % Auto 0.0 % [facility] nRBC Abs Auto 0.000 0.000 - 0.000 x10(3)/[facility] LABORATORY Blood 03/04/2023 5:17 AM EDT 03/04/2023 5:29 AM EDT Narrative Resulting Agency Comment Spec In Lab Mega Gant MD HEMATOLOGY ORDERABLE S Performing Organization Address City/[facility]/ZIP Co de Phone Number [facility] [place] [address] * Magnesium (03/04/2023 5:17 AM EDT) Pathologist [facility] Magnesium 0.98 0.69 - 1.07 mmol/L [facility] Blood 03/04/2023 5:17 AM EDT 03/04/2023 5:29 AM EDT Narrative Resulting Agency Comment Spec In Lab Chong Campbell MD CHEMISTRY ORDERABLE S Performing Organization Address [facility] [facility] Co de Phone Number [facility] [place] [address] * (ABNORMAL) Phosphorus (03/04/2023 5:17 AM EDT) [facility] Phosphorus 4.6(H) 2.5 - 4.5 mg/dL [facility] Blood 03/04/2023 5:17 AM EDT 03/04/2023 5:29 AM EDT Narrative Resulting Agency Comment Spec In Lab Chong Campbell MD CHEMISTRY ORDERABLE S Performing Organization Address [facility] Co de Phone Number [facility] [place] [address] * (ABNORMAL) Basic Metabolic Panel (non-fasting) (03/04/2023 5:17 AM EDT) [facility] Glucose Lvl 113 65 - 199 mg/dL [facility] Comment:Diabetes: >=200 mg/d L plus symptoms BUN 22(H) 8 - 18 mg/dL [facility] Creatinine 1.21(H) 0.70 - 1.20 mg/dL [facility] Sodium 132(L) 135 - 145 mmol/L [facility] Potassium 3.9 3.5 - 5.0 mmol/L [facility] Comment: Please note: ??Patients with WBC >100,000 may have falsely elevated Potassium levels. ??For accurate Potassium quantification in these patients send serum separator tube (gold top) for subsequent determinations. ??Contact the Clinical Chemistry Laboratory if there are any questions. Chloride 95(L) 98 - 107 mmol/L [facility] CO2 27 22 - 31 mmol/L [facility] Anion Gap 10 5 - 15 mmol/L [facility] Calcium 9.6 8.5 - 10.5 mg/dL [facility] Estimated GFR 47(L) >=60 mL/min/1. 73 m?? [facility] Comment: This patient's estimated GFR [...] MD CHEMISTRY ORDERABLE S Performing Organization Address City/State/[facility] Co de Phone Number [facility] [place] [address] * (ABNORMAL) Differential, Automated (03/03/2023 4:07 AM EDT) Neutrophils % 64.1 % [facility] Neutr Abs (ANC) 5.71 1.70 - 6.10 x10(3)/mc L [facility] Lymphocytes % 24.8 % [facility] Lymphocytes Abs 2.2 0.9 - 3.2 x10(3)/mc L [facility] Monocytes % 10.0 % [facility] Monocyte Abs 0.9 0.3 - 0.9 x10(3)/mc L [facility] Eosinophils % 0.1 % [facility] Eosinophils Abs 0.0 0.0 - 0.4 x10(3)/[facility] Basophils % 0.3 % [facility] Basophils Abs 0.0 0.0 - 0.1 x10(3)/[facility] Immature Gran % 0.70 % [facility] Comment: Immature granulocytes(IG's)percentage and absolute count will include metamyelocytes, myelocytes, and promyelocytes. Blood smears from CBCs yielding IG's will be scanned manually for concordance. If this scan disagrees with the automated IG or if promyelocytes are noted, a manual differential will be performed. [place] Gran Abs 0.06(H) 0.00 - 0.04 x10(3)/[facility] Blood 03/03/2023 4:07 AM EDT 03/03/2023 4:43 AM EDT Narrative Resulting Agency Comment Spec In Lab Mega Gant MD HEMATOLOGY ORDERABLE S [facility] [place] [address] * (ABNORMAL) Hemogram (03/03/2023 4:07 AM EDT) WBC 8.9 4.0 - 9.5 x10(3)/[facility] RBC 3.70(L) 4.00 - 5.21 x10(6)/[facility] Hemoglobin 12.0 11.7 - 15.5 g/dL [facility] Hematocrit 37.2 35.7 - 45.8 % [facility] MCV 100.5(H) 82.6 - 94.4 fL [facility] MCH 32.4(H) 27.1 - 32.0 pg [facility] MCHC 32.3 31.7 - 35.0 g/dL [facility] Platelets 258 145 - 357 x10(3)/[facility] LABOR[facility] RDWSD 47.8(H) 37.0 - 46.0 [facility] LAB[facility]ORY RDWCV 12.8 11.5 - 14.1 % [facility] MPV 9.3 7.6 - 12.9 [facility] LAB[facility]ORY nRBC % Auto 0.0 % [facility] nRBC Abs Auto 0.000 0.000 - 0.000 x10(3)/[facility] LAB[facility] Blood 03/03/2023 4:07 AM EDT 03/03/2023 4:43 AM EDT Narrative Resulting Agency Comment Spec In Lab Mega Gant MD HEMATOLOGY ORDERABLE S Performing Organization Address [facility] Co de Phone Number [facility] [place] [address] * Magnesium (03/03/2023 4:07 AM EDT) Magnesium 0.96 0.69 - 1.07 mmol/L [facility] Blood 03/03/2023 4:07 AM EDT 03/03/2023 4:43 AM EDT Narrative Resulting Agency Comment Spec In Lab Chong Campbell MD CHEMISTRY ORDERABLE S Performing Organization Address City/[facility]/ZIP Co de Phone Number [facility] [place] [address] * (ABNORMAL) Phosphorus (03/03/2023 4:07 AM EDT) Phosphorus 4.6(H) 2.5 - 4.5 mg/dL [facility] Blood 03/03/2023 4:07 AM EDT 03/03/2023 4:43 AM EDT Narrative Resulting Agency Comment Spec In Lab Chong Campbell MD CHEMISTRY ORDERABLE S [facility] [place] [address] * (ABNORMAL) Basic Metabolic Panel (non-fasting) (03/03/2023 4:07 AM EDT) Glucose Lvl 97 65 - 199 mg/dL [facility] Comment:Diabetes: >=200 mg/d L plus symptoms BUN 18 8 - 18 mg/dL [facility] Creatinine 1.01 0.70 - 1.20 mg/dL [facility] Sodium 138 135 - 145 mmol/L [facility] Potassium 4.3 3.5 - 5.0 mmol/L [facility] Comment: Please note: ??Patients with WBC >100,000 may have falsely elevated Potassium levels. ??For accurate Potassium quantification in these patients send serum separator tube (gold top) for subsequent determinations. ??Contact the Clinical Chemistry Laboratory if there are any questions. Chloride 103 98 - 107 mmol/L [facility] CO2 22 22 - 31 mmol/L [facility] Anion Gap 13 5 - 15 mmol/L [facility] Calcium 9.4 8.5 - 10.5 mg/dL [facility] Estimated GFR 58(L) >=60 mL/min/1. 73 m?? [facility] Comment: This patient's estimated GFR [...] Lab Chong Campbell MD CHEMISTRY ORDERABLE S [facility] [place] [address] * (ABNORMAL) Vitamin B12 (03/03/2023 4:07 AM EDT) Pathologist [facility] Vitamin B-12 1,348(H) 232 - 1,245 pg/mL [facility] Blood 03/03/2023 4:07 AM EDT 03/03/2023 4:43 AM EDT Narrative Resulting Agency Comment Spec In Lab Chong Campbell MD CHEMISTRY ORDERABLE S Performing Organization Address [facility]/ZIP Co de Phone Number [facility] [place] [address] * (ABNORMAL) Differential, Automated (03/02/2023 4:09 AM EDT) [facility] Neutrophils % 69.7 % [facility] Neutr Abs (ANC) 6.12(H) 1.70 - 6.10 x10(3)/mc L [facility] Lymphocytes % 20.4 % [facility] Lymphocytes Abs 1.8 0.9 - 3.2 x10(3)/mc L [facility] Monocytes % 8.5 % [facility] Monocyte Abs 0.8 0.3 - 0.9 x10(3)/mc L [facility] Eosinophils % 0.2 % [facility] Eosinophils Abs 0.0 0.0 - 0.4 x10(3)/mc L [facility] Basophils % 0.5 % [facility] Basophils Abs 0.0 0.0 - 0.1 x10(3)/mc L [facility] Immature Gran % 0.70 % [facility] Comment: Immature granulocytes(IG's)percentage and absolute count will include metamyelocytes, myelocytes, and promyelocytes. Blood smears from CBCs yielding IG's will be scanned manually for concordance. If this scan disagrees with the automated IG or if promyelocytes are noted, a manual differential will be performed. [place] Gran Abs 0.06(H) 0.00 - 0.04 x10(3)/mc L [facility] Blood 03/02/2023 4:09 AM EDT 03/02/2023 4:17 AM EDT Narrative Resulting Agency Comment Spec In Lab Mega Gant MD HEMATOLOGY ORDERABLE S [facility] [place] [address] * (ABNORMAL) Hemogram (03/02/2023 4:09 AM EDT) WBC 8.8 4.0 - 9.5 x10(3)/[facility] LABORATORY RBC 3.38(L) 4.00 - 5.21 x10(6)/[facility] LAB[facility] Hemoglobin 11.0(L) 11.7 - 15.5 g/dL [facility] Hematocrit 34.3(L) 35.7 - 45.8 % [facility] MCV 101.5(H) 82.6 - 94.4 fL [facility] MCH 32.5(H) 27.1 - 32.0 pg [facility] MCHC 32.1 31.7 - 35.0 g/dL [facility] Platelets 250 145 - 357 x10(3)/[facility] LABORATORY RDWSD 49.0(H) 37.0 - 46.0 [facility] LAB[facility]ATORY RDWCV 13.1 11.5 - 14.1 % [facility] MPV 9.1 7.6 - 12.9 [facility] LAB[facility] nRBC % Auto 0.0 % [facility] nRBC Abs Auto 0.000 0.000 - 0.000 x10(3)/[facility] LABOR[facility] Blood 03/02/2023 4:09 AM EDT 03/02/2023 4:17 AM EDT Narrative Resulting Agency Comment Spec In Lab Mega Gant MD HEMATOLOGY ORDERABLE S [facility] [place] [address] * Magnesium (03/02/2023 4:09 AM EDT) Magnesium 0.96 0.69 - 1.07 mmol/L [facility] Blood 03/02/2023 4:09 AM EDT 03/02/2023 4:17 AM EDT Narrative Resulting Agency Comment Spec In Lab Chong Campbell MD CHEMISTRY ORDERABLE S Performing Organization Address City/[facility]/ZIP Co de Phone Number [facility] [place] [address] * Phosphorus (03/02/2023 4:09 AM EDT) Phosphorus 3.9 2.5 - 4.5 mg/dL [facility] Blood 03/02/2023 4:09 AM EDT 03/02/2023 4:17 AM EDT Narrative Resulting Agency Comment Spec In Lab Chong Campbell MD CHEMISTRY ORDERABLE S Performing Organization Address City/[facility]/ZIP Co de Phone Number [facility] [place] [address] * Basic Metabolic Panel (non-fasting) (03/02/2023 4:09 AM EDT) Glucose Lvl 99 65 - 199 mg/dL [facility] Comment:Diabetes: >=200 mg/d L plus symptoms BUN 15 8 - 18 mg/dL [facility] Creatinine 0.96 0.70 - 1.20 mg/dL [facility] Sodium 138 135 - 145 mmol/L [facility] Potassium 4.3 3.5 - 5.0 mmol/L [facility] Comment: Please note: ??Patients with WBC >100,000 may have falsely elevated Potassium levels. ??For accurate Potassium quantification in these patients send serum separator tube (gold top) for subsequent determinations. ??Contact the Clinical Chemistry Laboratory if there are any questions. Chloride 104 98 - 107 mmol/L [facility] CO2 26 22 - 31 mmol/L [facility] Anion Gap 8 5 - 15 mmol/L [facility] Calcium 9.2 8.5 - 10.5 mg/dL [facility] Estimated GFR 62 >=60 mL/min/1. 73 m?? [facility] Comment: This patient's estimated GFR [...] Lab Chong Campbell MD CHEMISTRY ORDERABLE S [facility] [place] [address] * (ABNORMAL) Differential, Automated (03/01/2023 4:48 PM EDT) Neutrophils % 60.9 % [facility] Neutr Abs (ANC) 4.51 1.70 - 6.10 x10(3)/mc L [facility] Lymphocytes % 27.2 % [facility] Lymphocytes Abs 2.0 0.9 - 3.2 x10(3)/mc L [facility] Monocytes % 10.2 % [facility] Monocyte Abs 0.8 0.3 - 0.9 x10(3)/[facility] LABORATORY Eosinophils % 0.5 % [facility] Eosinophils Abs 0.0 0.0 - 0.4 x10(3)/[facility] LABORATORY Basophils % 0.5 % [facility] Basophils Abs 0.0 0.0 - 0.1 x10(3)/[facility] LABORATORY Immature Gran % 0.70 % [facility] Comment: Immature granulocytes(IG's)percentage and absolute count will include metamyelocytes, myelocytes, and promyelocytes. Blood smears from CBCs yielding IG's will be scanned manually for concordance. If this scan disagrees with the automated IG or if promyelocytes are noted, a manual differential will be performed. [place] Gran Abs 0.05(H) 0.00 - 0.04 x10(3)/[facility] LABORATORY Blood 03/01/2023 4:48 PM EDT 03/01/2023 5:03 PM EDT Narrative Resulting Agency Comment Spec In Lab Mega Gant MD HEMATOLOGY ORDERABLE S [facility] [place] [address] * (ABNORMAL) Hemogram (03/01/2023 4:48 PM EDT) WBC 7.4 4.0 - 9.5 x10(3)/[facility] LABORATORY RBC 3.60(L) 4.00 - 5.21 x10(6)/[facility] LABORATORY Hemoglobin 11.7 11.7 - 15.5 g/dL [facility] Hematocrit 36.2 35.7 - 45.8 % [facility] MCV 100.6(H) 82.6 - 94.4 fL [facility] MCH 32.5(H) 27.1 - 32.0 pg [facility] MCHC 32.3 31.7 - 35.0 g/dL [facility] Platelets 276 145 - 357 x10(3)/[facility] LAB[facility]ORY RDWSD 48.9(H) 37.0 - 46.0 [facility] LABORATORY RDWCV 13.2 11.5 - 14.1 % [facility] MPV 9.2 7.6 - 12.9 [facility] LABORATORY nRBC % Auto 0.0 % [facility] nRBC Abs Auto 0.000 0.000 - 0.000 x10(3)/[facility] LAB[facility] Blood 03/01/2023 4:48 PM EDT 03/01/2023 5:03 PM EDT Narrative Resulting Agency Comment Spec In Lab Mega Gant MD HEMATOLOGY ORDERABLE S Performing Organization Address [facility]/ZIP Co de Phone Number [facility] [place] [address] * Magnesium (03/01/2023 4:48 PM EDT) Magnesium 0.93 0.69 - 1.07 mmol/L [facility] Blood 03/01/2023 4:48 PM EDT 03/01/2023 5:03 PM EDT Narrative Resulting Agency Comment Spec In Lab Chong Campbell MD CHEMISTRY ORDERABLE S Performing Organization Address City/[facility]/ZIP Co de Phone Number [facility] [place] [address] * Phosphorus (03/01/2023 4:48 PM EDT) Phosphorus 4.1 2.5 - 4.5 mg/dL [facility] Blood 03/01/2023 4:48 PM EDT 03/01/2023 5:03 PM EDT Narrative Resulting Agency Comment Spec In Lab Chong Campbell MD CHEMISTRY ORDERABLE S [facility] [place] [address] * Basic Metabolic Panel (non-fasting) (03/01/2023 4:48 PM EDT) Glucose Lvl 83 65 - 199 mg/dL [facility] Comment:Diabetes: >=200 mg/d L plus symptoms BUN 14 8 - 18 mg/dL [facility] Creatinine 0.99 0.70 - 1.20 mg/dL [facility] Sodium 140 135 - 145 mmol/L [facility] Potassium 4.3 3.5 - 5.0 mmol/L [facility] Comment: Please note: ??Patients with WBC >100,000 may have falsely elevated Potassium levels. ??For accurate Potassium quantification in these patients send serum separator tube (gold top) for subsequent determinations. ??Contact the Clinical Chemistry Laboratory if there are any questions. Chloride 103 98 - 107 mmol/L [facility] CO2 26 22 - 31 mmol/L [facility] Anion Gap 11 5 - 15 mmol/L [facility] Calcium 9.5 8.5 - 10.5 mg/dL [facility] Estimated GFR 60 >=60 mL/min/1. 73 m?? [facility] Comment: This patient's estimated GFR [...] Lab Chong Campbell MD CHEMISTRY ORDERABLE S [facility] [place] [address] * ECHO COMPLETE (03/01/2023 4:42 PM EDT) Anatomical Region Laterality Modality Cardiac Other 03/01/2023 4:11 PM EDT Narrative 03/01/2023 5:00 PM EDT ? Echocardiogram Report Name: DELEON, LINDSEY D ? Study Date: 03/01/2023 04:11 PMBP: 169/82 mmHg ? Patient Location: CSCU [id number] A HR: 70 : 1950 ? Height: 160 cm ? Account: [id number] Age: 72 yrs ? Weight: 79 kg Gender: Female ?BSA: 1.8 m2 Ordering Physician: MARC^P Referring Physician: ALEXANDER GAMEZ Performed By: Gianna Freedman RDCS Reason For Study: Aortic valve stenosis Exam Location: [facility]. Interpretation Summary Left ventricle is of [...] is mild to moderate mitral regurgitation. Procedure Complete-[id number]. Satisfactory quality. There is normal sinus rhythm. [...] Asencio MD - 03/01/2023 Echocardiogram Report Name: LINDSEY DELEON Study Date: 304:11 PMBP: 169/82 mmHg Patient Location: [id number] HR: 70 : 1950 Height: 160 cm Account: [id number] Age: 72 yrs Weight: 79 kg Gender: Female BSA: 1.8 m2 Ordering Physician: MARC^Brittany Referring Physician: ALEXANDER GAMEZ Performed By: Gianna Freedman RDCS Reason For Study: Aortic valve stenosis Exam Location: [facility]. Interpretation Summary Left ventricle is of [...] is mild to moderate mitral regurgitation. Procedure Complete-[id number]. Satisfactory quality. There is normal sinus rhythm. [...] (Bezet) 474 ms MUSE SYSTEM Calculated P [place] 62 degrees MUSE SYSTEM Calculated R [place] -59 degrees MUSE SYSTEM Calculated T [place] 18 degrees MUSE SYSTEM INTERPRETATION Normal sinus [...] documented in this encounter Visit Diagnoses Diagnosis Aortic valve stenosis, etiology of cardiac valve disease unspecified S/P TAVR (transcatheter aortic valve replacement) ASCVD (arteriosclerotic cardiovascular disease) Unspecified cardiovascular disease Essential hypertension Unspecified essential hypertension Aortic stenosis Aortic valve disorders documented in this encounter Admitting Diagnoses Diagnosis Aortic [...] Given 03/08/2023 5:58 AM EDT 1,000 mg acetaminophen (Tylenol) tablet 650 mg 650 mg, Oral, EVERY 6 HOURS PRN, Starting on Mon03/07/23 at 1732, Until Mon03/07/23 at 1850, Pain, back pain, Maximum dose of acetaminophen is 4,000 mg from all sources in 24 hours. When ordered for pain, acetaminophen should be given even when other ordered pain medications are indicated. , Routine Given 03/07/2023 5:37 PM EDT 650 mg amLODIPine (Norvasc) tablet 10 mg 10 mg, Oral, DAILY, First dose (after last modification) on Mon03/03/23 at 0900, Until Discontinued, Routine Given 03/08/2023 9:14 AM EDT 10 mg Given 03/07/2023 8:53 AM EDT 10 mg Given 03/06/2023 8:08 AM EDT 10 mg amLODIPine (Norvasc) tablet 5 mg 5 mg, Oral, DAILY, First dose on Mon03/02/23 at 0900, Until Discontinued, Routine Given 03/02/2023 8:35 AM EDT 5 mg amLODIPine (Norvasc) tablet 5 mg 5 mg, Oral, ONCE, 1 dose, On Mon03/02/23 at 1045, Routine Given 03/02/2023 10:54 AM EDT 5 mg aspirin EC tablet 325 mg 325 mg, Oral, DAILY, First dose on Mon03/01/23 at 1600, Until Discontinued, Routine Given 03/08/2023 8:23 AM E DT 325 mg Given 03/07/2023 8:53 AM EDT [...] Given 03/06/2023 8:08 AM EDT 40 mg enoxaparin (Lovenox) (40 mg/0.4 mL) subcutaneous injection 40 mg 40 mg, Subcutaneous, NIGHTLY, First dose on Mon03/01/23 at 2100, Until Discontinued, Routine Given 03/06/2023 8:45 PM EDT 40 mg Given 03/05/2023 8:48 PM EDT 40 mg Given 03/04/2023 8:10 PM EDT 40 mg ezetimibe (Zetia) tablet 10 [...] Given 03/06/2023 8:08 AM EDT 25 mg labetaloL (Normodyne) (5 mg/mL) injection solution 10 mg 10 mg, Intravenous, ONCE PRN, 1 dose, Starting on Mon03/07/23 at 1541, Until Mon03/07/23 at 1545, High Blood Pressure, administer for SBP >160mmHg. Wait until 10 minutes after first dose of labetalol before administering, Routine Given 03/07/2023 3:45 PM EDT 5 mg lactated Ringers 500 mL IV bolus at 125 mL/hr, Intravenous, ONCE, 1 dose, On Mon03/05/23 at 0945 New Bag 03/05/2023 9:36 AM EDT 125 mL/hr levothyroxine (Synthroid) tablet 75 mcg 75 mcg, Oral, EVERY MORNING, First dose on Mon03/02/23 at 0600, Until Discontinued, Routine Given 03/08/2023 5:58 AM EDT 75 mcg Given 03/07/2023 6:25 AM EDT 75 mcg Given 03/06/2023 5:13 AM EDT 75 mcg losartan (Cozaar) tablet 25 mg 25 mg, Oral, DAILY, First dose on Mon03/02/23 at 1145, Until Discontinued, Routine Given 03/05/2023 8:07 AM EDT 25 mg Given 03/04/2023 8:12 AM EDT 25 mg Given 03/03/2023 8:36 AM EDT 25 mg magnesium sulfate 2 g in sterile water 50 mL infusion 2 g, Intravenous, ONCE, 1 dose, On Mon03/06/23 at 1600, Administer over 120 Minutes New Bag 03/06/2023 3:39 PM EDT 2 g 25 mL/hr metoprolol (LOPRESSOR) injection 5 mg 5 mg, Intravenous, ONCE, 1 dose, On Mon03/08/23 at 0900 Given 03/08/2023 8:18 AM EDT 5 mg metoprolol succinate XL (Toprol-XL) tablet 25 mg [...] Given 03/05/2023 8:48 PM EDT 1 puff mupirocin (Bactroban) 2 % ointment Topical (Top), 2 TIMES DAILY, First dose on Mon03/07/23 at 0930, Until Discontinued, Apply small amount to each nostril two times daily Given 03/07/2023 10:02 AM EDT 1 each nitroGLYcerin (Nitrostat) disintegrating tablet 0.4 mg 0.4 mg, Sublingual, EVERY 5 MIN PRN, Starting on Mon03/01/23 at 1111, Until Mon03/05/23 at 0849, Chest pain, May repeat every 5 minutes for a total of three doses. Notify provider if chest pain not relieved with nitroglycerin. Do not administer nitroglycerin if the patient has received or taken phosphodiesterase (PDE-5) inhibitors such as sildenafil, tadalafil or vardenafil within the last 24 to 72 hours., Routine Given 03/04/2023 8:07 PM EDT 0.4 mg pantoprazole (Protonix) injection 40 mg 40 mg, [...] Until Discontinued, DO NOT CRUSH OR OPEN Given 03/07/2023 8:53 AM EDT 40 mg Given 03/06/2023 8:08 AM EDT 40 mg Given 03/05/2023 8:07 AM EDT 40 mg pantoprazole EC (Protonix) tablet 40 mg 40 mg, Oral, DAILY, First dose on Mon03/07/23 at 1945, Until Discontinued, DO NOT CRUSH OR OPEN, Routine Given 03/08/2023 8:23 AM EDT 40 mg Given 03/07/2023 8:32 PM EDT 40 mg potassium chloride ER (Klor-Con M) crystal tablet 20 mEq 20 mEq, Oral, ONCE, 1 dose, On Mon03/08/23 at 0715, potassium chloride ER particle/crystal tablets (Klor-Con M) may be broken in half and each half swallowed separately. Tablets can be dissolved in ~4 ounces of water; allow ~2 minutes to dissolve, stir well and drink immediately. Do not crush, chew, or suck on tablet., Routine Given 03/08/2023 8:22 AM EDT 20 mEq potassium chloride ER (Klor-Con M) crystal tablet 40 mEq 40 mEq, Oral, ONCE, 1 dose, On Mon03/06/23 at 1600, potassium chloride ER particle/crystal tablets (Klor-Con M) may be broken in half and each half swallowed separately. Tablets can be dissolved in ~4 ounces of water; allow ~2 minutes to dissolve, stir well and drink immediately. Do not crush, chew, or suck on tablet., Routine Given 03/06/2023 3:39 PM EDT 40 mEq potassium chloride ER (Klor-Con M) crystal tablet 40 mEq 40 mEq, Oral, ONCE, 1 dose, On Mon03/07/23 at 1000, potassium chloride ER particle/crystal tablets (Klor-Con M) may be broken in half and each half swallowed separately. Tablets can be dissolved in ~4 ounces of water; allow ~2 minutes to dissolve, stir well and drink immediately. Do not crush, chew, or suck on tablet., Routine Given 03/07/2023 10:02 AM EDT 40 mEq rosuvastatin (Crestor) tablet 20 mg 20 mg, [...] on Mon03/01/23 at 1215, Until Discontinued, Routine Given 03/07/2023 8:55 AM EDT 5 mLs Given 03/06/2023 8:45 PM EDT 5 mLs Given 03/06/2023 8:08 AM EDT 5 mLs sodium chloride 0.9 % (flush) (BD PosiFlush Normal Saline 0.9) flush 5 mL 5 mL, Intravenous, 2 TIMES DAILY, First dose on Mon03/07/23 at 0930, Until Discontinued, Routine Given 03/07/2023 8:55 AM EDT 5 mLs sodium chloride 0.9 % (flush) (BD PosiFlush Normal Saline 0.9) flush 5 mL 5 mL, Intravenous, 2 TIMES DAILY, First dose on Mon03/07/23 at 2100, Until Discontinued, Routine Given 03/08/2023 8:24 AM EDT 5 mLs Given 03/07/2023 8:32 PM EDT 5 mLs sodium chloride 0.9% infusion 100 mL/hr, Intravenous, CONTINUOUS, Starting on Mon03/07/23 at 1600, Until Mon03/07/23 at 1959, Recovery (Recovery-Hospital Unit) New Bag 03/07/2023 3:55 PM EDT 100 mL/hr 100 mL /hr ziprasidone (Geodon) capsule 20 mg 20 mg, [...] 0914 (Given - Provider: Addison Farias, RANGEL) aspirin EC tablet 325 mg 325 mg, Oral, DAILY, First dose on Mon03/01/23 at 1600, Until Discontinued, Routine 0808 (Given - Provider: Tosha Flores RN) 0853 (Given - Provider: Adi Kwan RN)1400 ([facility] Hold - Provider: Admin Adt - Reason: Transfer to a Procedural area)1809 ([facility]AN Unhold - Provider: Admin Adt) 0823 (Given - Provider: Addison Farias, RAGNEL) buPROPion SR (Wellbutrin SR) tablet 150 mg 150 mg, Oral, DAILY, First dose on Mon03/02/23 at 0900, Until Discontinued, DO NOT CRUSH OR OPEN, Routine 0808 (Given - Provider: Tosha Flores RN) 0853 (Given - Provider: Adi Kwan RN)1400 (JAN Hold - Provider: Admin Adt - Reason: Transfer to a Procedural area)1809 ([facility] Unhold - Provider: Admin Adt) 0823 (Given - Provider: Addison Farias RN) citalopram (CeleXA) tablet 40 mg 40 mg, Oral, DAILY, First dose on Mon03/02/23 at 0900, Until Discontinued, Routine 0808 (Given - Provider: Tosha Flores RN) 0853 (Given - Provider: Adi Kwan RN)1400 ([facility]AN Hold - Provider: Admin Adt - Reason: Transfer to a Procedural area)1809 ([facility] Unhold - Provider: Admin Adt) 0823 (Given - Provider: Addison Farias RN) enoxaparin (Lovenox) (40 mg/0.4 mL) subcutaneous injection 40 mg (CANCELED) 40 mg, Subcutaneous, NIGHTLY, First dose on Mon03/01/23 at 2100, Until Discontinued, Routine 2044 (Given - Provider: Zhanna Ratliff RN) 1400 ([facility] Hold - Provider: Admin Adt - Reason: Transfer to a Procedural area)1809 ([facility] Unhold - Provider: Admin Adt) ezetimibe (Zetia) tablet 10 mg 10 mg, Oral, EVERY EVENING, First dose (after last modification) on Mon03/01/23 at 2000, Until Discontinued, Routine 1708 (Given - Provider: Sylvie Eaton, RN) 1400 ([facility] Hold - Provider: Admin Adt - Reason: Transfer to a Procedural area)1700 (Not Given - Provider: Arlene Cole, RANGEL - Reason: Patient not available)181 ([facility] Unhold - Provider: Admin Adt) hydroCHLOROthiazide (Hydrodiuril) tablet 25 mg 25 mg, Oral, DAILY, First dose on Mon03/02/23 at 0900, Until Discontinued, Routine 0808 (Given - Provider: Tosha Flores, RANGEL) 0853 (Given - Provider: Adi Kwan RN)1400 ([facility] Hold - Provider: Admin Adt - Reason: Transfer to a Procedural area)181 ([facility] Unhold - Provider: Admin Adt) 0914 (Given - Provider: Addison Farias, RANGEL) levothyroxine (Synthroid) tablet 75 mcg 75 mcg, Oral, EVERY MORNING, First dose on Mon03/02/23 at 0600, Until Discontinued, Routine 0513 (Given - Provider: Ynes Park, RANGEL) 0625 (Given - Provider: Zhanna Ratliff, RANGEL)1400 ([facility]AN Hold - Provider: Admin Adt - Reason: Transfer to a Procedural area)181 ([facility] Unhold - Provider: Admin Adt) 0558 (Given - Provider: Arlene Cole, RANGEL) magnesium sulfate 2 g in sterile water 50 mL infusion (COMPLETED) 2 g, Intravenous, ONCE, 1 dose, On Mon03/06/23 at 1600, Administer over 120 Minutes 1539 (New Bag - Provider: Tosha Flores, RANGEL)1739 (Stopped - Provider: Sylvie Eaton, RANGEL) metoprolol (LOPRESSOR) injection 5 mg (COMPLETED) 5 mg, Intravenous, ONCE, 1 dose, On Mon03/08/23 at 0900 0818 (Given - Provider: Addison Farias, RANGEL) metoprolol succinate XL (Toprol-XL) tablet 25 mg 25 mg, Oral, DAILY, First dose on Mon03/08/23 at 1000, Until Discontinued, DO NOT CRUSH OR OPEN, Routine 0914 (Given - Provider: Addison Farias RANGEL) mometasone (Asmanex Twisthaler) 220 mcg/actuation DPI Inhaler 1 puff 1 puff (220 mcg), Inhalation, NIGHTLY, First dose on Mon03/03/23 at 1830, Until Discontinued, Rinse mouth (without swallowing) after each use., Routine, Does the patient have the inspiratory effort to support a dry powder inhaler? Yes 2045 (Given - Provider: Zhanna Rtaliff RN) 1400 (JAN Hold - Provider: Admin Adt - Reason: Transfer to a Procedural area)1809 (J[facility] Unhold - Provider: Admin Adt)2031 (Given - Provider: Arlene Cole RN) mupirocin (Bactroban) 2 % ointment (CANCELED) Topical (Top), 2 TIMES DAILY, First dose on Mon03/07/23 at 0930, Until Discontinued, Apply small amount to each nostril two times daily 1002 (Given - Provider: Adi Kwan RN)1399 (JAN Hold - Provider: Admin Adt - [...] (See Alternative - Provider: Arlene Cole RN) 0823 (See Alternative - Provider: Addison Farias, RANGEL) pantoprazole EC (Protonix) tablet 40 mg (CANCELED) [...] 2031 (Given - Provider: Arlene Cole RN) 822 (Given - Provider: Addison Farias RN) potassium [...] crush, chew, or suck on tablet., Routine 821 (Given - Provider: Addison Farias RN) potassium [...] crush, chew, or suck on tablet., Routine 1538 (Given - Provider: Tosha Flores RN) potassium [...] on Mon03/01/23 at 2000, Until Discontinued, Routine 170 (Given - Provider: Sylvie Eaton RN) 1400 ([facility] Hold - Provider: Admin Adt - Reason: Transfer to a Procedural area)1700 (Not Given - Provider: Arlene Cole RN - Reason: Patient not available)181 (JAN Unhold - Provider: Admin Adt) senna-docusate [...] Routine 0808 (Given - Provider: Tosha Flores RN)204 (Given - Provider: Zhanna Ratliff RN) 0855 (Given - Provider: Adi Kwan RN)1400 (JAN Hold - Provider: Admin Adt - Reason: Transfer to a Procedural area)1809 (JAN Unhold - Provider: Admin Adt) sodium chloride 0.9 % (flush) (BD PosiFlush Normal Saline 0.9) flush 5 mL (CANCELED) 5 mL, Intravenous, 2 TIMES DAILY, First dose on Mon03/07/23 at 0930, Until Discontinued, Routine 0855 (Given - Provider: Adi Kwan RN)1400 (JAN Hold - Provider: Admin Adt - Reason: Transfer to a Procedural area)1809 (JAN Unhold - Provider: Admin Adt) sodium [...] calories., Routine 0807 (Given - Provider: Tosha Flores RN)1708 (Given - Provider: Sylvie Eaton RN) 0856 [...] ordered pain medications are indicated. , Routine 1737 (Given - Provider: Mike Russell RN) bisacodyL [...] first dose of labetalol before administering, Routine 154 (Given - Provider: Mike Russell RN) lidocaine [...] Routine documented in this encounter Care Teams Degreaser Operator Relationship Specialty Start Date End Date Vanita Churchill APRN PCP - General Family Medicine 02/27/19 documented as of this encounter
--- OUTSIDE RECORDS SUMMARY | 2024-06-14 01:46 | XMS_ITS | Encounter Summary ---
[place] [address] Care Team Providers Care Survey Interviewer Name Role Phone Kwesidominguez Vanita Dominguez SPARROW Primary Care Provider [phone] Reason for Referral * Diagnostic Test (Routine) - Closed Specialty Diagnoses / Procedures Referred By Emy castillo Referred To Contact Cardiology Diagnoses Severe aortic stenosis Procedures Echocardiogram Transthoracic Jassi Lantigua MD [facility] [place] [address] [facility] [address] Referral ID Status Reason Start Date Expiration Date V isits Requested Visits Authorized [id number] Closed Specialty Service Requested 02/23/2023 02/23/2024 1 1 Encounter Details Date Type Department Care Team (Late st Contact Info) Description 02/23/2023 Orders Only Cardiology at [address] [phone] Jassi Lantigua MD [facility] [place] [address] Severe aortic stenosis Social History Tobacco Use Types Packs/Day Years [...] 2:40 PM EDT Office Visit Cardiology at [address] [phone] Rigoberto Diaz MD [facility] [place] [address] Scheduled Procedures Name Priority Associated Diagnoses Date/Ti me EGD, UPPER GI ENDOSCOPY (WRV U 2.09) Incontinence of feces, unspecified fecal incontinence type Dysphagia, unspecified type COLONOSCOPY, DIAGNOSTIC (WRV U 3.26) Incontinence of feces, unspecified fecal incontinence type Dysphagia, unspecified type documented as of this encounter Results * ECHO COMPLETE (05/05/2023 2:04 PM EDT) EF 74 HEARTLAB SYSTEM Anatomical Region Laterality Modality Cardiac Other 05/05/2023 1:20 PM EDT Narrative 05/05/2023 2:49 PM EDT ? Echocardiogram Report Name: FIGUEREDO, LINDSEY D ? Study Date: 05/05/2023 01:20 PM ? Patient Location: [facility] : 1950 ? Height: 160 cm ? Account: [id number] Age: 72 yrs ? Weight: 77 kg Gender: Female ?BSA: 1.8 m2 Ordering Physician: EDWIGE NIEVES Referring Physician: JASSI LANTIGUA Performed By: Gianna Freedman RDCS Reason For Study: S/P TAVR Exam Location: [facility]. Interpretation Summary 1. Normal biventricular size [...] body of report for complete details. Procedure Complete-[id number]. Satisfactory quality. There is normal sinus rhythm. [...] Valenzuela MD - 05/05/2023 Echocardiogram Report Name: LINDSEY FIGUEREDO Study Date: 301:20 PM Patient Location: [id number] : 1950 Height: 160 cm Account: [id number] Age: 72 yrs Weight: 77 kg Gender: Female BSA: 1.8 m2 Ordering Physician: EDWIGE NIEVES Referring Physician: JASSI LANTIGUA Performed By: Gianna Freedman RDCS Reason For Study: S/P TAVR Exam Location: [facility]. Interpretation Summary 1. Normal biventricular size [...] body of report for complete details. Procedure Complete-[id number]. Satisfactory quality. There is normal sinus rhythm. [...] Diagnosis Severe aortic stenosis Aortic valve disorders Severe aortic stenosis Aortic valve disorders documented in this encounter Care Teams Survey Interviewer Relationship Specialty Start Date End Date Vanita Churchill APRN PCP - General Family Medicine 02/27/19 documented as of this encounter
--- OUTSIDE RECORDS SUMMARY | 2024-06-14 01:46 | XMS_ITS | Encounter Summary ---
[place] [address] Care Team Providers Care Gas Mask Assembler Name Role Phone KwesiVanita mix Omar SPARROW Primary Care Provider [phone] Reason for Visit * Auth/Cert (Routine) Specialty Diagnoses / Procedures Referred By Emy castillo Referred To Contact Diagnoses Aortic stenosis Aortic stenosis Procedures ER Chong Mireles MD [facility] [place] [address] [facility] Referral ID Status Reason Start Date Expiration Date Visits Re quested Visits Authorized [id number] 1 1 Encounter Details Date Type Department Care Team (Late st Contact Info) Description 03/07/2023 1:57 PM EDT Anesthesia Event [place] [phone] Goldie Franco MD [facility] [place] [address] Benoit Napier MD [facility] [place] [address] Anesthesia Record Procedure Summary Procedure Name Responsible Anesthesiologist Anesthesia Start Time Anesthesia Stop Time CARDIAC CATHETERIZATION Goldie Franco MD 3 1357 03/07/23 1538 Events Date Time Event Comment 03/07/2023 1200 1356 AN Verify 1357 Start 1357 An Start Data 1418 Anesthesia Ready 1420 An Induction 1450 Test Transvenous Pacing 1456 Heparin 1503 Test Transvenous Pacing 130 1503 Test Transvenous Pacing 160 1504 Rapid Ventricular Pacing 1504 Ao Balloon Valvuloplasty 1504 Ao Valve Deployment 1511 Protamine 1529 an stop data 1529 Transport 1537 Recovery or ICU Handoff Dasha ent care was transferred to the destination unit staff after review of the patient's medical history, current anesthetic/surgical status and plan, according to the Provider Handoff Checklist. 1538 Stop Meds Name Total REMIfentanil INF 0.15 mg Heparin 7,000 Units Protamine 50 mg Vancomycin 1 g ceFAZolin 2 g PHENYLephrine 160 mcg PHENYLephrine INF 840 mcg Sodium Chloride 0.9% 300 mL * Agents Name O2 Air N2O O2 Auxiliary Flowmeter 2 * Blood No blood administrations on file. Lines, Drains, and Airways Type Details Placement Removal (RETIRED) Peripheral IV Line - Single Lumen 03/01/23; 1407; cephalic vein (lateral side of arm), right; cjsk-mzq-inxres catheter system; Ultrasound Guidance; Yes - US guidance used but Image NOT saved; 20 gauge, 1.75 in length; ESTHER-VAS; distraction, intradermal injection, tolerated well, appears comfortable; 0; 03/08/23; 1221 03/01/23 1407 by Fred Mo RN 03/08/23 1221 by Addison Farias RN Arterial Line 03/07/23; 1410; radi al artery, left; 20 gauge; Anatomical Landmarks; continuous blood pressure monitoring, frequent blood gas measurement; Preston PANIAGUA; Sterile Prep, Sterile Gloves; no longer indicated; 03/07/23; 1600 03/07/23 1410 by Lubna Johnston MD 03/07/23 1600 by Desiree Stone RN (RETIRED) Peripheral IV Line - Single Lumen 03/07/23; 1422; oezl-tqg-yrvoqz catheter system; Anatomical Landmarks; 20 gauge; Salvador PANIAGUA; 03/08/23; 1221 03/07/23 1422 by Lubna Johnston MD 03/08/23 1221 by Addison Farias RN LDA Cath/EP Sheath 03/07/23; 1438; 6 Honduran (Fr); Right, Anterior; Wrist; Arterial 03/07/23 1438 by Jamila Tucker 03/07/23 1513 by Jamila Tucker LDA Cath/EP Sheath 03/07/23; 1439; 6 Honduran (Fr); Left, Proximal, Anterior; Femoral; Arterial 03/07/23 1439 by TuckerBrie mayfieldlin 03/07/23 1509 by Jamila Tucker LDA Cath/EP Sheath 03/07/23; 1444; 6 Honduran (Fr); Proximal, Right, Anterior; Femoral; Venous 03/07/23 1444 by Jamila Tucker 03/07/23 1514 by Jamila Tucker documented in this encounter Social History Tobacco Use Types Packs/Day Years [...] on file documented as of this encounter OR Notes * Anesthesia Postprocedure Evaluation - Lubna Johnston MD - 03/07/2023 3:43 PM EDT Department of Anesthesiology Post-procedure Note Patient: Lindsey Deleon Procedure Summary Date: 03/07/23 Room / Location: PC ANALYST [address] [place] [address] CATH LABS Anesthesia Start: 1357 Anesthesia Stop: 1538 Procedures: CARDIAC CATHETERIZATION COMBINED RIGHT & LEFT HEART CATH,INC INJ FOR L VENTRICULOGRAPHY (WRVU 5.99) @TRANSCATHETER AORTIC VALVE REPLACEMENT (TAVR), PERCUTANEOUS FEMORAL (WRVU 22.47) TRANSESOPHAGEAL ECHO DURING CATH/EP PROCEDURE Diagnosis: (aortic stenosis, severe/TAVR) Providers: Mike Fraser MD; Rahat Joe MD; Amara Fields MD Responsible Provider: Goldie Franco MD Anesthesia Type: Not recorded ASA Status: Not recorded All Anesthesia Providers: Anesthesiologist: Goldie Franco MD Brass Roller: Lubna Johnston MD Vitals Value Taken Time BP 156/59 03/07/23 1540 Temp Pulse 80 03/07/23 1543 Resp 13 03/07/23 1543 SpO2 99 % 03/07/23 1543 Pain Level Vitals shown include unvalidated device data. Patient Location: PACU/[facility] Level of Consciousness: Awake and Alert Pain Management: Satisfactory Analgesia PONV: None Cardiovascular Status: Hypertension (received treatment) and Hemodynamically Stable Respiratory Status: At Baseline and Room Air Postoperative Fluid Status: Intravascular EUvolemia Possible Anesthetic Complications: NONE apparent at time of evaluation Final Primary Anesthesia Type: MAC (The anesthetic type performed was the same as planned.) Comments: Lubna Johnston MD * Anesthesia Preprocedure Evaluation - Goldie Franco MD - 03/07/2023 1:28 PM EDT Pre-Anesthesia Evaluation for: Lindsey Pelayoair a 72 y.o. female. Procedure(s): CARDIAC CATHETERIZATION COMBINED RIGHT & LEFT HEART CATH,INC INJ FOR L VENTRICULOGRAPHY (WRVU 5.99) @TRANSCATHETER AORTIC VALVE REPLACEMENT (TAVR), PERCUTANEOUS FEMORAL (WRVU 22.47) TRANSESOPHAGEAL ECHO DURING CATH/EP PROCEDURE Patient Active Problem List Diagnosis Date Noted ??? *Aortic stenosis 03/01/2023 ??? Carotid stenosis 05/28/2019 ??? Claudication in peripheral vascular disease 08/07/2017 ??? Obesity (BMI 30-39.9) 07/19/2017 ??? Atherosclerotic PVD with intermittent claudication 07/19/2017 ??? Asthma 02/06/2017 ??? Seasonal allergic rhinitis 05/03/2016 ??? Hypothyroidism 05/03/2016 ??? IBS (irritable bowel syndrome) 12/21/2012 ??? Constipation 12/21/2012 ??? GERD (gastroesophageal reflux disease) 10/11/2012 ??? HTN (hypertension) 10/11/2012 ??? Hypercholesteremia 10/11/2012 ??? Rheumatoid arthritis(714.0) 10/11/2012 ??? Depression 10/11/2012 ??? COPD (chronic obstructive pulmonary disease) 10/11/2012 ??? Macular degeneration 10/11/2012 ??? CHEMA (obstructive sleep apnea) 04/11/2011 Past Medical History: Diagnosis Date ??? Anemia [...] Date ??? CHOLECYSTECTOMY ? ? PRG CATH [facility] CORONARY ART W/INJ FOR ANGIO W/R HEART CATH IMG S&I N/A 01/31/2023 CORONARY ANGIOGRAPHY; W RHC (WRVU 5.9) performed by Mike Fraser MD at [facility] [place] CATH LABS ??? PRG X-RAY AORTA LEG ARTERIES N/A 08/15/2017 AORTOGRAPHY, ABD. + AYAAN. ILIOFEMORAL LE BY SERIALOGRAPHY S & I (WRVU 1.79) performed by Jake Montaño MD at [facility] [place] MAIN OR ??? PRO COLONOSCOPY, DIAGNOSTIC 12/06/2012 COLONOSCOPY, DIAGNOSTIC performed by Mik Dumont MD at [facility] [place] ENDOSCOPY ??? PRO LAPAROSCOPY REPAIR PARAESOPHAGEAL HERNIA INCL FUNDOPLASTY W/O MESH 02/18/2013 LAPAROSCOPIC PARAESOPHAGEAL HERNIA REPAIR W/FUNDOPLASTY, W/O MESH performed by Moncho Bowers MD at [facility] [place] MAIN OR ??? PRO PLACE CATH FIRST ORDER ART, ABD/PELV 08/15/2017 CATHETER PLACEMENT, SELECTIVE FIRST ORDER IN ARTERIAL SYSTEM, EACH FIRST ORDER ABDOMINAL, PELVIC, OR LOWER EXTREMITY ARTERY BRANCH,WITHIN A VASCULAR FAMILY (WRVU 4.9) performed by Jake Montaño MD at [facility] [place] MAIN OR ? ? PRO REVSC OPEN/PERCUTANEOUS ILIAC ART W STNT PLMT&ANGIO PATRICE VSL UNILAT Bilateral 08/15/2017 REVSC OPN\PRQ ILIAC ART W\STNT PLMT & ANGIOP SAME VSL (WRVU 10) performed by Jake Montaño MD at [facility] [place] MAIN OR ??? PRO THROMBOENDARTECTMY ILIOFEMORAL Left 08/15/2017 @ENDARTERECTOMY, ILIOFEMORAL W OR W/O PATCH GRAFT (WRVU 19.86) performed by Jake Montaño MD at [facility] [place] MAIN OR ??? PRO THROMBOENDARTECTMY NECK, NECK INCIS Right 06/10/2019 @ENDARTERECTOMY, CAROTID, VERTEBRAL,SUBCLAVIAN W\WO PATCH GRAFT (WRVU 21.16) performed by Jake Montaño MD at [facility] [place] MAIN OR ??? PRO UPPER GI ENDOSCOPY, BIOPSY 12/06/2012 EGD WITH BIOPSY performed by Mik Dumont MD at [facility] [place] ENDOSCOPY ??? TUBAL LIGATION Social History Tobacco Use ??? Smoking status: Former Packs/day: 2.00 Years: 30.00 Pack years: 60.00 Types: Cigarettes Quit date: 10/21/2004 Years since quittin.3 ??? Smokeless tobacco: Never Substance Use Topics ??? Alcohol use: Yes Types: 1 Glasses of wine, 1 Cans of beer per week Social History Substance and Sexual Activity Drug Use Never Allergies Allergen Reactions ??? Latex Itching and Rash ??? Kaopectate [Bismuth Subsalicylate] Other (See Comments) Rectal Bleeding ??? Lisinopril Other (See Comments) coughing ??? Mineral Oil ??? Hemorrhoid Cream [Tissue Resp Fact-Shark Fadumo Oil] Other (See Comments) Bleeding Medications: MAR and/or home medications have been reviewed. Physical Exam: Preprocedure Vitals Current as of 03/07/23 1328 BP: 142/60 Pulse: 68 Resp: 16 SpO2: 95 Temp: 36.8 ??C (98.2 ??F) Height: 160 cm (5' 2.99) (03/01/23) Weight: 77.2 kg (170 lb 3.1 oz) (03/07/23) BMI: 30.16 IBW: 52.4 kg (115 lb 7.7 oz) Last edited 03/07/23 1049 by LP Airway Assessment: Mallampati: II TM distance: >3 FB Neck ROM: full Cardiovascular Assessment: Rhythm: regular Rate: normal Pulmonary Assessment: breath sounds clear to auscultation Dental Assessment: (+) edentulous Misc Assessment: IV access: Peripheral line Last Filed Perioperative Cognitive Screening None Anesthesia Plan: ASA 3 MAC, with a(n) intravenous induction Lindsey Deleon is a 72 y.o. patient presenting for TAVR. Patient Active Problem List: CHEMA (obstructive sleep apnea) on BiPAP, GERD, HTN, RA, COPD, macular degeneration, history of carotid stenosis now s/p carotid endarterectomy, asthma, obesity, peripheral arterial disease, severe . TTE: Left ventricle is of normal size. Wall [...] There is mild to moderate mitral regurgitation. Cath: * Nonobstructive coronary artery disease * Severe aortic stenosis * Severe pulmonary hypertension * Elevated pulmonary capillary wedge pressure * Elevated left ventricular end diastolic pressure PA 65/27(50), PCWP 27, CI 3.07 ECG: RBBB, LAFB Anesthesia history: oral airway adjunct, grade 1 view MAC 3 DL Plan: MAC with arterial line, given possibility of difficult femoral access. Consented for possibletransvenous pacing. The patient was informed of the risks, benefits and alternatives of anesthesia. These risks included, but were not limited to, post-operative nausea and/or vomiting, pain, sore throat, dental/lip injury, and other rare but serious complications such as cardiac instability/arrest, neurologic event, awareness, major aspiration event, severe allergic reactions, position-related nerve injuries, and need blood transfusions. All questions sought and answered. Region - Intrathoracic Cardiac Informed Consent: Anesthetic plan and risks discussed with patient. Use of blood products discussed with patient who consented to blood products. Plan discussed with attending. Anesthesia Screening documented in this encounter Plan of Treatment Upcoming Encounters Date Type Department Care Team (Late st Contact Info) Description 02/06/2025 2:40 PM EDT Office Visit Cardiology at [address] [place] [address] [facility] [place] [place] [address] Scheduled Procedures Name Priority Associated Diagnoses Date/Ti me EGD, UPPER GI ENDOSCOPY (WRV U 2.09) Incontinence of feces, unspecified fecal incontinence type Dysphagia, unspecified type COLONOSCOPY, DIAGNOSTIC (WRV U 3.26) Incontinence of feces, unspecified fecal incontinence type Dysphagia, unspecified type documented as of this encounter Visit Diagnoses Not on filedocumented in this encounter Administered Medications Inactive Administered Medications - up to 3 most recent administrations Medication Order MAR Action Action Date Dose Rate Site ceFAZolin (Ancef) 1 g in dextrose 5% 50 mL infusion Intravenous, PRN, Starting on Mon03/07/23 at 1431, Until Mon03/07/23 at 1543, Administer over 30 Minutes, Anesthesia Intra-op Given 03/07/2023 2:31 PM EDT 2 g heparin (porcine) (1,000 units/mL) injection Intravenous, PRN, Starting on Mon03/07/23 at 1455, Until Mon03/07/23 at 1543, Anesthesia Intra-op, Routine Given 03/07/2023 2:55 PM EDT 7,000 Units PHENYLephrine (Riley-Synephrine) (80 mcg/mL) in sodium chloride 0.9% 250 mL infusion Intravenous, CONTINUOUS PRN, Starting on Mon03/07/23 at 1450, Until Mon03/07/23 at 1543, Anesthesia Intra-op, Routine Rate/Dose Change 03/07/2023 3:09 PM EDT 20 mcg/min 15 mL/hr New Bag 03/07/2023 2:50 PM EDT 40 mcg/min 30 mL/hr PHENYLephrine in NS (PF) (RILEY-SYNEPHRINE) 0.8 mg/10 mL (80 mcg/mL) multi-dose injection Syrg Intravenous, PRN, Starting on Mon03/07/23 at 1448, Until Mon03/07/23 at 1543, Anesthesia Intra-op, Routine Given 03/07/2023 3:09 PM EDT 80 mcg Given 03/07/2023 2:48 PM EDT 80 mcg protamine (10 mg/mL) injection Intravenous, PRN, Starting on Mon03/07/23 at 1509, Until Mon03/07/23 at 1543, Anesthesia Intra-op, Routine Given 03/07/2023 3:09 PM EDT 50 mg remifentaniL (Ultiva) (0.02 mg/mL) infusion (Anesthesia) Intravenous, CONTINUOUS PRN, Starting on Mon03/07/23 at 1418, Until Mon03/07/23 at 1543, Anesthesia Intra-op Restarted 03/07/2023 2:51 PM EDT 0.03 mcg/kg/min 6.948 mL/hr Rate/Dose Change 03/07/2023 2:36 PM EDT 0.05 mcg/kg/min 11 .58 mL/hr New Bag 03/07/2023 2:18 PM EDT 0.03 mcg/kg/min 6.948 mL /hr sodium chloride 0.9% infusion Intravenous, CONTINUOUS PRN, Starting on Mon03/07/23 at 1418, Until Mon03/07/23 at 1543, Anesthesia Intra-op New Bag 03/07/2023 2:18 PM EDT vancomycin (Vancocin) injection Intravenous, PRN, Starting on Mon03/07/23 at 1418, Until Mon03/07/23 at 1543, Anesthesia Intra-op, Routine Given 03/07/2023 2:18 PM EDT 1 g documented in this encounter Care Teams Gas Mask Assembler Relationship Specialty Start Date End Date Vanita Churchill, PET CARE TECHNICIAN PCP - General Family Medicine 02/27/19 documented as of this encounter
--- OUTSIDE RECORDS SUMMARY | 2024-06-14 01:46 | XMS_ITS | Encounter Summary ---
[place] [address] Care Team Providers Care Precision Lathe Operator Name Role Phone Vanita Churchill APRN Primary Care Provider [phone] Encounter Details Date Type Department Care Team (Late st Contact Info) Description 02/23/2023 Orders Only Cardiology at [address] [phone] Mike Fraser MD [facility] [place] [address] Severe aortic stenosis Social History Tobacco Use [...] PM EDT Office Visit Cardiology at [address] [phone] Rigoberto Diaz MD [facility] [place] [address] Scheduled Procedures Name Priority Associated Diagnoses Date/Ti me EGD, UPPER GI ENDOSCOPY (WRV U 2.09) Incontinence of feces, unspecified fecal incontinence type Dysphagia, unspecified type COLONOSCOPY, DIAGNOSTIC (WRV U 3.26) Incontinence of feces, unspecified fecal incontinence type Dysphagia, unspecified type documented as of this encounter Visit Diagnoses Diagnosis Severe aortic stenosis Aortic valve disorders documented in this encounter Care Teams Precision Lathe Operator Relationship Specialty Start Date End Date Vanita Churchill APRN PCP - General Family Medicine 02/27/19 documented as of this encounter
--- OUTSIDE RECORDS SUMMARY | 2024-06-14 01:46 | XMS_ITS | Encounter Summary ---
Author Organization [facility] Address [facility] [place] [address] Care Team Providers Care Fruit Grower Name Role Phone Kwesidominguez Vanita Dominguez SPARROW Primary Care Provider [phone] Encounter Details Date Type Department Care Team (Late st Contact Info) Description 03/02/2023 [place] [phone] Edwige Nieves APRN [facility] [address] Social History Tobacco Use Types Packs/Day Years [...] Progress Notes * Edwige Nieves APRN - 03/02/2023 7:22 AM EDT Structural Heart TAVR Team Discussion Date: 03/02/2023 Patient ID: Lindsey Mehta is a 72 y.o. female Members of the Structural Heart Team met to review imaging and discuss appropriate management of their aortic valve disease. Anticipate transcaval TAVR Monday with Dr. Joe. documented in this encounter Plan of Treatment Upcoming Encounters Date Type Department Care Team (Late st Contact Info) Description 02/06/2025 2:40 PM EDT Office Visit Cardiology at [address] [place] [address] [facility] [place] [address] Scheduled Procedures Name Priority Associated Diagnoses Date/Ti me EGD, UPPER GI ENDOSCOPY (WRV U 2.09) Incontinence of feces, unspecified fecal incontinence type Dysphagia, unspecified type COLONOSCOPY, DIAGNOSTIC (WRV U 3.26) Incontinence of feces, unspecified fecal incontinence type Dysphagia, unspecified type documented as of this encounter Visit Diagnoses Not on filedocumented in this encounter Care Teams Fruit Grower Relationship Specialty Start Date End Date Vanita Churchill APRN PCP - General Family Medicine 02/27/19 documented as of this encounter
--- OUTSIDE RECORDS SUMMARY | 2024-06-14 01:47 | XMS_ITS | Encounter Summary ---
[place] [address] Care Team Providers Care Fruit Picker Machine Operator Name Role Phone Vanita Churchill Omar SPARROW Primary Care Provider [phone] Encounter Details Date Type Department Care Team (Late st Contact Info) Description 08/30/2022 Telephone [place] [address] Erika Green Social History Tobacco Use Types Packs/Day Years [...] encounter Miscellaneous Notes * Telephone Encounter - Erika Green - 08/30/2022 12:01 PM EDT Inbound/Outbound: OUT Spoke to Patient/Left Message: LVM Notes: Called patient to schedule Motility Testing. Left VM Return calls can be handled by: Any Motility Abattoir Supervisor documented in this encounter Plan of Treatment Upcoming Encounters Date Type Department Care Team (Late st Contact Info) Description 02/06/2025 2:40 PM EDT Office Visit Cardiology at [address] [place] [address] Rigoberto Diaz MD [facility] [address] Scheduled Procedures Name Priority Associated Diagnoses Date/Ti me EGD, UPPER GI ENDOSCOPY (WRV U 2.09) Incontinence of feces, unspecified fecal incontinence type Dysphagia, unspecified type COLONOSCOPY, DIAGNOSTIC (WRV U 3.26) Incontinence of feces, unspecified fecal incontinence type Dysphagia, unspecified type documented as of this encounter Visit Diagnoses Not on filedocumented in this encounter Care Teams Fruit Picker Machine Operator Relationship Specialty Start Date End Date Vanita Churchill APRN PCP - General Family Medicine 02/27/19 documented as of this encounter
--- OUTSIDE RECORDS SUMMARY | 2024-06-14 01:47 | XMS_ITS | Encounter Summary ---
Author Organization [facility] [place] [address] Care Team Providers Care Banquet Attendant Name Role Phone Vanita Churchill ARMATURE TESTER Primary Care Provider [phone] Encounter Details Date Type Department Care Team (Latest Contact Info) Description 10/11/2022 Travel Social History Tobacco Use Types Packs/Day [...] 2:40 PM EDT Office Visit Cardiology at [address] [place] [address] Rigoberto Diaz MD [facility] [place] [address] Scheduled Procedures Name Priority Associated Diagnoses Date/Ti me EGD, UPPER GI ENDOSCOPY (WRV U 2.09) Incontinence of feces, unspecified fecal incontinence type Dysphagia, unspecified type COLONOSCOPY, DIAGNOSTIC (WRV U 3.26) Incontinence of feces, unspecified fecal incontinence type Dysphagia, unspecified type documented as of this encounter Visit Diagnoses Not on filedocumented in this encounter Care Teams Banquet Attendant Relationship Specialty Start Date End Date Vanita Churchill, KYARA PCP - General Family Medicine 02/27/19 documented as of this encounter
--- OUTSIDE RECORDS SUMMARY | 2024-06-14 01:47 | XMS_ITS | Encounter Summary ---
Author Organization [facility] [place] [address] Care Team Providers Care Lease Purchase Truck Driver Name Role Phone Vanita Churchill KYARA Primary Care Provider [phone] Encounter Details Date Type Department Care Team (Late st Contact Info) Description 02/16/2023 Notes [place] [phone] Anita Smith PA [facility] [place] [address] Social History Tobacco Use Types Packs/Day Years [...] as of this encounter Progress Notes * Anita Smith PA - 02/16/2023 7:18 AM EDT Multi-Disciplinary Structural Heart Team Discussion Date: 02/16/2023 Patient ID: Lindsey Deleon is a 72 y.o. female A multidisciplinary group comprised of members of the Structural Heart teams met to review imaging and discuss appropriate management of their aortic valve disease. Recommendation to review iliofemoral images with [facility] at this time. Anita Smith PA-C documented in this encounter Plan of Treatment Upcoming Encounters Date Type Department Care Team (Late st Contact Info) Description 02/06/2025 2:40 PM EDT Office Visit Cardiology at [address] [place] [address] Rigoberto Diaz MD [facility] [place] [address] Scheduled Procedures Name Priority Associated Diagnoses Date/Ti me EGD, UPPER GI ENDOSCOPY (WRV U 2.09) Incontinence of feces, unspecified fecal incontinence type Dysphagia, unspecified type COLONOSCOPY, DIAGNOSTIC (WRV U 3.26) Incontinence of feces, unspecified fecal incontinence type Dysphagia, unspecified type documented as of this encounter Visit Diagnoses Not on filedocumented in this encounter Care Teams Lease Purchase Truck Driver Relationship Specialty Start Date End Date Vanita Churchill APRN PCP - General Family Medicine 02/27/19 documented as of this encounter
--- OUTSIDE RECORDS SUMMARY | 2024-06-14 01:47 | XMS_ITS | Encounter Summary ---
Author Organization [facility] [place] [address] Care Team Providers Care Digester Operator Name Role Phone Kwesidominguez Vanita Dominguez SPARROW Primary Care Provider [phone] Encounter Details Date Type Department Care Team (Late st Contact Info) Description 12/30/2022 Orders Only Cardiology at [address] [place] [phone] Edwige Nieves END MATCHER [facility] [place] [address] Aortic valve stenosis, etiology of cardiac valve [...] 2:40 PM EDT Office Visit Cardiology at [address] [phone] Rigoberto Diaz MD [facility] [place] [address] Scheduled Procedures Name Priority Associated Diagnoses Date/Ti me EGD, UPPER GI ENDOSCOPY (WRV U 2.09) Incontinence of feces, unspecified fecal incontinence type Dysphagia, unspecified type COLONOSCOPY, DIAGNOSTIC (WRV U 3.26) Incontinence of feces, unspecified fecal incontinence type Dysphagia, unspecified type documented as of this encounter Results * Basic Metabolic Panel (non-fasting) (01/31/2023 9:54 AM EST) Glucose Lvl 98 65 - 199 mg/dL [facility] Comment:Diabetes: >=200 mg/d L plus symptoms BUN 12 8 - 18 mg/dL [facility] Creatinine 0.90 0.70 - 1.20 mg/dL [facility] Sodium 138 135 - 145 mmol/L [facility] Potassium 4.5 3.5 - 5.0 mmol/L [facility] Comment: Please note: ??Patients with WBC >100,000 may have falsely elevated Potassium levels. ??For accurate Potassium quantification in these patients send serum separator tube (gold top) for subsequent determinations. ??Contact the Clinical Chemistry Laboratory if there are any questions. Chloride 102 98 - 107 mmol/L [facility] CO2 27 22 - 31 mmol/L [facility] Anion Gap 9 5 - 15 mmol/L [facility] Calcium 9.6 8.5 - 10.5 mg/dL [facility] Estimated GFR 67 >=60 mL/min/1. 73 m?? [facility] Comment: This patient's estimated GFR was [...] and symptoms in addition to eGFR. Blood 01/31/2023 9:54 AM EST 01/31/2023 9:59 AM EST Narrative Resulting Agency Comment Spec In Lab Edwige Nieves APRN CHEMISTRY ORDERABLES [facility] [place] [address] documented in this encounter Visit Diagnoses Diagnosis Aortic valve stenosis, etiology of cardiac valve disease unspecified documented in this encounter Care Teams Digester Operator Relationship Specialty Start Date End Date Vanita Churchill APRN PCP - General Family Medicine 02/27/19 documented as of this encounter
--- OUTSIDE RECORDS SUMMARY | 2024-06-14 01:47 | XMS_ITS | Encounter Summary ---
[facility] [place] [address] Care Team Providers Care Cad Technician Name Role Phone Kwesidominguez Vanita Nelson APRN Primary Care Provider [phone] Encounter Details Date Type Department Care Team (Late st Contact Info) Description 01/20/2023 1:40 PM EST Office Visit Cardiology at [address] [phone] Edwige Nieves APRN [facility] [place] [address] Aortic valve stenosis, etiology of cardiac valve [...] Sign Reading Time Taken Comments Blood Pressure 121/74 01/20/2023 1:55 PM EST Pulse 102 01/20/2023 1:55 PM EST BRAINER notified Temperature - - Respiratory Rate - - Oxygen Saturation 98% 01/20/2023 1:5 5 PM EST Inhaled Oxygen Concentration - - Weight 79.8 kg (176 lb) 01/20/2023 1:55 PM EST Height 161.3 cm (5' 3.5) 01/20/2023 1: 55 PM EST patient reported Body Mass Index 30.69 01/20/2023 1:55 PM EST documented in this encounter Progress Notes * Edwige Nieves, BRAINER - 01/20/2023 1:40 PM EST Images from the original note were not included. [facility] [place] [address] Structural Heart New Patient Subjective: HPI: Lindsey Mehta is a 72 y.o. female with past medical history of , hypertension, hyperlipidemia, COPD/emphysema, hypothyroid, PAD with h/o L iliofemoral endarterectomy, B TRE stent placement (8x38mm BE) for short distance claudication in 2016 and more recently R CEA for asymptomatic stenosis in May 2019 who presents to the structural heart clinic as an urgent visit due to acute dyspneain the setting of known aortic stenosis. She reports over the past several months her breathing status has progressively declined. This became acutely worse on January 06 at which time she was seen in her local health center and told she has pneumonia. She reports minimal improvement since starting her antibiotics. She does feel like shehad fever/chills but has not taken a formal temperature. She does not a thick green sputum secretion which was been persistent over the last week and also notes her infection has been complicated by thrush. She denies anginal symptoms or new lower extremity swelling, orthopnea, PND or weight gain. ?? Echo 12/12/2022: EF 56%; AUREA 1.0; Gr 47/30; Trace AR/TR; Moderate MR ?? Social History Lives in [place], [place] 60 pack year smoking hx Works [...] Medications Medication Sig Note Dispense Refill ??? levothyroxine (Synthroid) 75 mcg Tablet ??? hydroCHLOROthiazide (Hydrodiuril) 12.5 mg Tablet ??? nystatin (MYCOSTATIN) Powder Apply topically [...] by mouth daily. ??? UNABLE TO FIND [place] ??? calcium-vitamin D 500 mg(1,250mg) -200 unit [...] ??? FOLIC ACID ORAL Objective: Vitals: Vitals: 01/20/23 1355 BP: 121/74 BP Location (NBP): Left arm Patient Position: Sitting BP Cuff Sizes: Large Adult (32-43 cm) Pulse: (!) 102 SpO2: 98% Weight: 79.8 kg (176 lb) Height: 161.3 cm (5' 3.5) Physical Exam: General: Pleasant female, no acute [...] visit (from the past 72 hour(s)). Vitals: 01/20/23 1355 BP: 121/74 BP Location (NBP): Left arm Patient Position: Sitting BP Cuff Sizes: Large Adult (32-43 cm) Pulse: (!) 102 SpO2: 98% Weight: 79.8 kg (176 lb) Height: 161.3 cm (5' 3.5) Assessment and Plan: Assessment 1. Mod-Severe ; AUREA 1, MG 30 2. Former smoker, COPD/emphysema 3. PAD s/p RCEA and bilateral iliac stent placement 4. HTN Reccomendations Lindseysa Bibi Mehta is a 72 y.o. female who was referred to the structural heart team for urgent evaluation due to worsening dyspnea int he setting of mod-severe aortic stenosis. NYHA III CCS 0. On discussion with this patient it appears that she is recovering from an infectious process and her dyspnea has been exacerbated in this setting (though felt to be multifactorial - , infection, emphysema). She has no evidence of acute HF warranting admission for expedited TAVR/SAVR at this time and isnoted to be saturating well on room air today in clinic despite feeling under the weather. At the time of this visit we discussed the natural history of aortic stenosis and treatment optionsincluding TAVR vs. SAVR vs. medical therapy alone along with the risks and benefits of each approach. I suspect she would be best served undergoing further work up when she has recovered from her current infection (may need to delay coronary angiography planned for next week). She is planned to follow up with her PCP Monday following a recent CXR taken last week. Following her recovery she will need to meet with the cardiac surgery team as well as one of the structural heart interventional cardiologists to discuss candidacy and next steps. Follow up: A member from the structural heart team will reach out to discuss next steps Edwige Nieves APRN Thank you for the opportunity to participate in this patient's cardiovascular care. documented in this encounter Plan of Treatment Upcoming Encounters Date Type Department Care Team (Late st Contact Info) Description 02/06/2025 2:40 PM EDT Office Visit Cardiology at [address] [phone] Rigoberto Diaz MD [facility] [place] [address] Scheduled Orders Name Type Priority Associated Diagnoses Orde r Schedule EKG 12 Lead ECG Routine Aortic valve stenosis, etiology of cardiac valve disease unspecified Ordered: 01/20/2023 Scheduled Procedures Name Priority Associated Diagnoses Date/Ti me EGD, UPPER GI ENDOSCOPY (WRV U 2.09) Incontinence of feces, unspecified fecal incontinence type Dysphagia, unspecified type COLONOSCOPY, DIAGNOSTIC (WRV U 3.26) Incontinence of feces, unspecified fecal incontinence type Dysphagia, unspecified type documented as of this encounter Visit Diagnoses Diagnosis Aortic valve stenosis, etiology of cardiac valve disease unspecified documented in this encounter Care Teams Cad Technician Relationship Specialty Start Date End Date Vanita Churchill, BRAINER PCP - General Family Medicine 02/27/19 documented as of this encounter
--- OUTSIDE RECORDS SUMMARY | 2024-06-14 01:47 | XMS_ITS | Encounter Summary ---
[facility] [place] [address] Care Team Providers Care Motorbike Courier Name Role Phone Vanita Churchill Omar SPARROW Primary Care Provider [phone] Reason for Referral * Diagnostic Test (Routine) - Closed Specialty Diagnoses / Procedures Referred By [facility] Referred To Contact Radiology Diagnoses Aortic valve stenosis, etiology of cardiac valve disease unspecified Procedures CT Angiogram Abdomen & Pelvis w Contrast (Generic) Gregorio Goodman MD [facility] [place] [address] [facility] [place] [address] Referral ID Status Reason Start Date Expiration Date V isits Requested Visits Authorized [id number] Closed Specialty Service Requested 12/21/2022 06/19/2024 1 1 * Diagnostic Test (Routine) - Closed Specialty Diagnoses / Procedures Referred By Emy castillo Referred To Contact Radiology Diagnoses Aortic valve stenosis, etiology of cardiac valve disease unspecified Procedures CT Cardiac for Morphology & Function Gregorio Goodman MD [facility] [place] [address] [facility] [place] [address] Referral ID Status Reason Start Date Expiration Date V isits Requested Visits Authorized [id number] Closed Specialty Service Requested 12/21/2022 06/19/2024 1 1 Encounter Details Date Type Department Care Team (Late st Contact Info) Description 12/20/2022 Orders Only Cardiology at [address] [phone] Gregorio Goodman MD [facility] [place] [address] Aortic valve stenosis, etiology of cardiac valve [...] PM EDT Office Visit Cardiology at [address] [phone] Rigoberto Diaz MD [facility] [address] Scheduled Procedures Name Priority Associated Diagnoses Date/Ti me EGD, UPPER GI ENDOSCOPY (WRV U 2.09) Incontinence of feces, unspecified fecal incontinence type Dysphagia, unspecified type COLONOSCOPY, DIAGNOSTIC (WRV U 3.26) Incontinence of feces, unspecified fecal incontinence type Dysphagia, unspecified type documented as of this encounter Results * EKG 12 Lead (03/04/2023 8:24 PM EDT) Ventricular rate 66 BPM MUSE SYSTEM Atrial Rate 66 BPM MUSE SYSTEM P-R Interval 148 ms MUSE SYSTEM QRS Duration 134 ms MUSE SYSTEM Q-T Interval 454 ms MUSE SYSTEM QTC Calculated (Bezet) 475 ms MUSE SYSTEM Calculated P [place] 63 degrees MUSE SYSTEM Calculated R [place] -64 degrees MUSE SYSTEM Calculated T [place] 26 degrees MUSE SYSTEM INTERPRETATION Normal sinus rhythm Right bundle branch block Left anterior fascicular block Bifascicular block Abnormal ECG When compared with ECG of 01-MAR-2023 13:52, No significant change was found Confirmed by MD Benny, Juan Ramon Leon ([id number]) on 03/05/2023 11:52:50 AM MUSE SYSTEM 03/04/2023 8:24 PM EDT 03/05/2023 11:52 AM EDT Gregorio Goodman MD ECG ORDERABLES MUSE SYSTEM * XR Chest PA & Lateral (Generic) (02/09/2023 1:02 PM EDT) Anatomical Region Laterality Modality Chest N/A Digital Radiogra phy Impressions 02/09/2023 2:28 PM EDT No acute cardiopulmonary disease. Thank you for letting us participate in the care of this patient. ??If you are a health care provider and have any questions regarding this report, please contact the number below. ??For patients who have questions please contact the health wild animal caretaker that requested your imaging first. ? Narrative 02/09/2023 2:28 PM EDT EXAMINATION: XR CHEST PA AND LATERAL (GENERIC) CLINICAL HISTORY: TAVR screening TECHNIQUE: PA and lateral views of the chest COMPARISON: May 23, 2009 FINDINGS: The heart is normal in size and the mediastinum has a normal contour. Coarsened markings lateral bases of the lungs consistent with scar or atelectasis. Otherwise, the lungs are clear. The costophrenic angles are sharp. There is no pneumothorax. No acute bone abnormalities are present. Left sided healed rib fractures are again seen. Procedure Note Kin Doe MD - 02/09/2023 EXAMINATION: XR CHEST PA AND LATERAL (GENERIC) CLINICAL HISTORY: TAVR screening TECHNIQUE: PA and lateral views of the chest COMPARISON: May 23, 2009 FINDINGS: The heart is normal in size and the mediastinum has a normal contour. Coarsened markings lateral bases of the lungs consistent with scar or atelectasis. Otherwise, the lungs are clear. The costophrenic angles are sharp. There is no pneumothorax. No acute bone abnormalities are present. Left sided healed rib fracturesare again seen. IMPRESSION No acute cardiopulmonary disease. Thank you for letting us participate in the care of this patient. If youare a health care provider and have any questions regarding this report,please contact the number below. For patients who have questions please contactthe health wild animal caretaker that requested your imaging first. Gregorio Goodman MD IMG DX ORDERABLES * CT Angiogram Abdomen & Pelvis w Contrast (Generic) (02/09/2023 11:57 AM EDT) Anatomical Region Laterality Modality Abdomen, Pelvis Computed Tomogra phy Impressions 02/10/2023 10:13 AM EDT 1. ??Minimal aortoiliac luminal diameters as described above. 2. ??Stenoses of the celiac artery, superior mesenteric artery, and inferior mesenteric arteries. Thank you for letting us participate in the care of this patient. ??If you are a health care provider and have any questions regarding this report, please contact the number below. ??For patients who have questions please contact the health wild animal caretaker that requested your imaging first. ? Narrative 02/10/2023 10:13 AM EDT EXAMINATION: CT ANGIOGRAM ABDOMEN AND PELVIS W CONTRAST (GENERIC) CLINICAL HISTORY: TAVR screening, iliac and bifurcation sizng and calcification TECHNIQUE: Helical CTA of the abdomen and pelvis was performed after intravenous administration of contrast. Omnipaque 350 99 mL IV administered.. Coronal and sagittal reconstructions were generated. Three-dimensional volume reconstructions were created on an independent computer workstation. COMPARISON: None FINDINGS: VASCULAR Abdominal aorta: Mild narrowing in the infrarenal segment, less than 50% no aneurysm (Minimal luminal diameters) Suprarenal aorta: 18.5 x 20.9 mm Juxtarenal aorta: 11.9 x 14.1 mm Infrarenal aorta: 5.0 x 10.2 mm Degree of calcification at aortic bifurcation: Moderate Branch vessels: Celiac: Moderate focal stenosis at the origin. SMA: Moderate focal stenosis at the origin. Right renal artery: No stenosis. Left renal artery: Moderate focal stenosis at the origin. UMA: No stenosis. Iliac/Femoral Arteries: Bilateral common iliac artery stents without in-stent stenosis. No aneurysm. (Minimal luminal diameters) Right common iliac: 4.8 x 6.8 mm Right external iliac: 4.2 x 7.7 mm Right common femoral: 2.4 x 7.5 mm Left common iliac: 4.6 x 6.3 mm Left external iliac: 5.3 x 6.2 mm Left common femoral: 4.8 x 5.7 mm Tortuosity on the right: 18 degrees/cm Tortuosity on the left: 19 degrees/cm NON-VASCULAR FINDINGS Liver: Normal size and attenuation without lesions. Bile ducts: Nondilated. Gallbladder: Post cholecystectomy. Pancreas: Normal attenuation without ductal dilatation. Spleen: Normal. Adrenals: Normal. Kidneys: Symmetric enhancement. There is a focal cortical thinning in the RIGHT kidney could be secondary to prior infection or infarct. 1 cm intracortical simple cyst in the upper pole the RIGHT kidney. Urinary Bladder: Normal. Lymph Nodes: No enlarged lymph nodes. Bowel: Colonic diverticulosis without diverticulitis. No dilated small or large bowel present. Peritoneum and mesentery: No ascites, free air, or loculated fluid collection. No mesenteric inflammation. Abdominal wall: Normal. Reproductive organs: The uterus is normal in size and morphology. No adnexal mass. Osseous structures: Degenerative changes in the visualized echo lumbar spine greatest at L3-L4 where there is loss of disc height and endplate sclerosis. Procedure Note Richy Caballero MD - 02/10/2023 EXAMINATION: CT ANGIOGRAM ABDOMEN AND PELVIS W CONTRAST (GENERIC) CLINICAL HISTORY: TAVR screening, iliac and bifurcation sizng andcalcification TECHNIQUE: Helical CTA of the abdomen and pelvis was performed afterintravenous administration of contrast. Omnipaque 350 99 mL IV administered.. Coronaland sagittal reconstructions were generated. Three-dimensional volume reconstructions were created on an independent computer workstation. COMPARISON: None FINDINGS: VASCULAR Abdominal aorta: Mild narrowing in the infrarenal segment, less than 50%no aneurysm (Minimal luminal diameters) Suprarenal aorta: 18.5 x 20.9 mm Juxtarenal aorta: 11.9 x 14.1 mm Infrarenal aorta: 5.0 x 10.2 mm Degree of calcification at aortic bifurcation: Moderate Branch vessels: Celiac: Moderate focal stenosis at the origin. SMA: Moderate focal stenosis at the origin. Right renal artery: No stenosis. Left renal artery: Moderate focal stenosis at the origin. UMA: No stenosis. Iliac/Femoral Arteries: Bilateral common iliac artery stents withoutin-stent stenosis. No aneurysm. (Minimal luminal diameters) Right common iliac: 4.8 x 6.8 mm Right external iliac: 4.2 x 7.7 mm Right common femoral: 2.4 x 7.5 mm Left common iliac: 4.6 x 6.3 mm Left external iliac: 5.3 x 6.2 mm Left common femoral: 4.8 x 5.7 mm Tortuosity on the right: 18 degrees/cm Tortuosity on the left: 19 degrees/cm NON-VASCULAR FINDINGS Liver: Normal size and attenuation without lesions. Bile ducts: Nondilated. Gallbladder: Post cholecystectomy. Pancreas: Normal attenuation without ductal dilatation. Spleen: Normal. Adrenals: Normal. Kidneys: Symmetric enhancement. There is a focal cortical thinning in theRIGHT kidney could be secondary to prior infection or infarct. 1 cmintracortical simple cyst in the upper pole the RIGHT kidney. Urinary Bladder: Normal. Lymph Nodes: No enlarged lymph nodes. Bowel: Colonic diverticulosis without diverticulitis. No dilated small orlarge bowel present. Peritoneum and mesentery: No ascites, free air, or loculated fluidcollection. No mesenteric inflammation. Abdominal wall: Normal. Reproductive organs: The uterus is normal in size and morphology. Noadnexal mass. Osseous structures: Degenerative changes in the visualized echo lumbarspine greatest at L3-L4 where there is loss of disc height and endplatesclerosis. IMPRESSION 1. Minimal aortoiliac luminal diameters as described above. 2. Stenoses of the celiac artery, superior mesenteric artery, andinferior mesenteric arteries. Thank you for letting us participate in the care of this patient. If youare a health care provider and have any questions regarding this report,please contact the number below. For patients who have questions please contactthe health wild animal caretaker that requested your imaging first. Gregorio Goodman MD IMG CT ORDERABLES * CT Cardiac for Morphology & Function (02/09/2023 11:57 AM EDT) Anatomical Region Laterality Modality Chest, Cardiac Computed Tomogra phy Impressions 02/13/2023 11:43 AM EDT 1. ??Pre-TAVR measurements as above. 2. ??Centrilobular emphysema. 3. ??Calcifications at the mitral valve annulus. Mild to moderate coronary artery atherosclerotic calcification. I have personally reviewed the image(s) and the resident's interpretation and agree with the findings, Salma Crespo MD at 02/13/2023 11:43 AM Thank you for letting us participate in the care of this patient. ??If you are a health care provider and have any questions regarding this report, please contact the number below. ??For patients who have questions please contact the health wild animal caretaker that requested your imaging first. ? Narrative 02/13/2023 11:43 AM EDT EXAMINATION: CT CARDIAC FOR MORPHOLOGY & FUNCTION CLINICAL HISTORY: TAVR screening, aortic annular sizing and calcification COMPARISON: CT chest 04/07/2005. TECHNIQUE: After time bolus, 0.625 mm thick axial contiguous sections were obtained through the heart via ECG-gated helical acquisition during intravenous administration of 99 cc Omnipaque 350. (CTA abdomen and pelvis is reported separately.) Post-processing was performed on an independent computer workstation including multiplanar MIP reconstructions. FINDINGS: Heart rate: mean 76 bpm, range 74 to 80 bpm Heart rhythm: regular ECG gating: Successful identification of every R wave. ECG editing: Not performed. Artifacts: No significant artifacts. Aortic valve: Imaging phase: 35% Calcification of leaflets: Tricuspid, trileaflet aortic valve. Moderate to severe calcification of the noncoronary leaflet and mild calcification of the right and left leaflet. Suggested fluoroscopic angulation based on line extending through the nadirs of the three sinuses of Valsalva, set equidistant: ?? Anterior oblique plane: SYRIAC Anterior oblique angulation: 5 Craniocaudal plane: CAU Craniocaudal angulation: 20 [id number] height: Imaging phase: 95% Right: 15.5 mm Left: 8.0 mm Valve leaflet length: Imaging phase: 95% Right: 13.1 mm Left: 11.4 mm Annulus: Imaging phase: 35% Diameters: 18.2 mm x 25.6 mm Area: 362 mm2 Circumference: 70 mm Calcification: None Aortic root/sinuses of Valsalva: Imaging phase: 35% Diameters: 32.3 mm Aortoventricular angle: 31.8 degrees Sinotubular junction: Imaging phase: 35% Effacement: Not effaced. Diameters: 24.6 mm x 27.2 mm Area: 521 mm2 Circumference: 81 mm Calcification: Mild to moderate calcification at the right coronary aspect. Thoracic aorta beyond the sinotubular junction: Mid ascending aorta: 28.2 mm x 29.1 mm Mid aortic arch: 23.4 mm Mid descending aorta: 22.0 mm Distal descending aorta, near hiatus: 21.3 mm Aortic arch branch vessels: Configuration: 3 vessels in classic configuration. Patency: Widely patent with calcified atherosclerotic plaque. Left subclavian artery: 3.3 mm x 7.2 mm Left axillary artery: 3.4 mm x 4.0 mm Annulus to innominate distance: 8.4 cm Other cardiovascular structures: Normal sized heart. No pericardial effusion. Dense bulky calcification at the mitral valve annulus. Mild to moderate coronary artery atherosclerotic calcification. Pulmonary parenchyma, airways, pleura: Centrilobular emphysema. Bibasilar atelectasis. No suspicious pulmonary nodule. No effusion. Upper abdomen: See separately reported CTA abdomen and pelvis. Skeletal structures: No significant findings. Procedure Note Salma Bashir MD - 02/13/2023 EXAMINATION: CT CARDIAC FOR MORPHOLOGY & FUNCTION CLINICAL HISTORY: TAVR screening, aortic annular sizing andcalcification COMPARISON: CT chest 04/07/2005. TECHNIQUE: After time bolus, 0.625 mm thick axial contiguous sectionswere obtained through the heart via ECG-gated helical acquisition duringintravenous administration of 99 cc Omnipaque 350. (CTA abdomen and pelvis isreported separately.) Post-processing was performed on an independent computer workstation including multiplanar MIP reconstructions. FINDINGS: Heart rate: mean 76 bpm, range 74 to 80 bpm Heart rhythm: regular ECG gating: Successful identification of every R wave. ECG editing: Not performed. Artifacts: No significant artifacts. Aortic valve: Imaging phase: 35% Calcification of leaflets: Tricuspid, trileaflet aortic valve. Moderateto severe calcification of the noncoronary leaflet and mild calcification ofthe right and left leaflet. Suggested fluoroscopic angulation based on line extending through thenadirs of the three sinuses of Valsalva, set equidistant: Anterior oblique plane: SYRIAC Anterior oblique angulation: 5 Craniocaudal plane: CAU Craniocaudal angulation: 20 Oarsofu-ci-rxpitduz height: Imaging phase: 95% Right: 15.5 mm Left: 8.0 mm Valve leaflet length: Imaging phase: 95% Right: 13.1 mm Left: 11.4 mm Annulus: Imaging phase: 35% Diameters: 18.2 mm x 25.6 mm Area: 362 mm2 Circumference: 70 mm Calcification: None Aortic root/sinuses of Valsalva: Imaging phase: 35% Diameters: 32.3 mm Aortoventricular angle: 31.8 degrees Sinotubular junction: Imaging phase: 35% Effacement: Not effaced. Diameters: 24.6 mm x 27.2 mm Area: 521 mm2 Circumference: 81 mm Calcification: Mild to moderate calcification at the right coronaryaspect. Thoracic aorta beyond the sinotubular junction: Mid ascending aorta: 28.2 mm x 29.1 mm Mid aortic arch: 23.4 mm Mid descending aorta: 22.0 mm Distal descending aorta, near hiatus: 21.3 mm Aortic arch branch vessels: Configuration: 3 vessels in classic configuration. Patency: Widely patent with calcified atherosclerotic plaque. Left subclavian artery: 3.3 mm x 7.2 mm Left axillary artery: 3.4 mm x 4.0 mm Annulus to innominate distance: 8.4 cm Other cardiovascular structures: Normal sized heart. No pericardialeffusion. Dense bulky calcification at the mitral valve annulus. Mild to moderatecoronary artery atherosclerotic calcification. Pulmonary parenchyma, airways, pleura: Centrilobular emphysema.Bibasilar atelectasis. No suspicious pulmonary nodule. No effusion. Upper abdomen: See separately reported CTA abdomen and pelvis. Skeletal structures: No significant findings. IMPRESSION 1. Pre-TAVR measurements as above. 2. Centrilobular emphysema. 3. Calcifications at the mitral valve annulus. Mild to moderate coronaryartery atherosclerotic calcification. I have personally reviewed the image(s) and the resident's interpretationand agree with the findings, Salma Crespo MD at 02/13/2023 11:43AM Thank you for letting us participate in the care of this patient. If youare a health care provider and have any questions regarding this report,please contact the number below. For patients who have questions please contactthe health wild animal caretaker that requested your imaging first. Gregorio Goodman MD IMG CT ORDERABLES * (ABNORMAL) Comprehensive metabolic panel (non-fasting) (02/09/2023 10:09 AM EDT) Glucose Lvl 86 65 - 199 mg/dL [facility] Comment:Diabetes: >=200 mg/d L plus symptoms BUN 19(H) 8 - 18 mg/dL [facility] Creatinine 1.00 0.70 - 1.20 mg/dL [facility] Sodium 138 135 - 145 mmol/L [facility] Potassium 4.0 3.5 - 5.0 mmol/L [facility] Comment: Please note: ??Patients with WBC >100,000 may have falsely elevated Potassium levels. ??For accurate Potassium quantification in these patients send serum separator tube (gold top) for subsequent determinations. ??Contact the Clinical Chemistry Laboratory if there are any questions. Chloride 103 98 - 107 mmol/L [facility] CO2 24 22 - 31 mmol/L [facility] Anion Gap 11 5 - 15 mmol/L [facility] Calcium 9.1 8.5 - 10.5 mg/dL [facility] Total Protein 7.2 6.1 - 8.0 g/dL [facility] Albumin 4.1 3.2 - 5.2 g/dL [facility] AST 16 0 - 30 unit/L [facility] ALT 14 0 - 30 unit/L [facility] Alk Phos 70 35 - 105 unit/L [facility] Total Bilirubin 0.3 0.2 - 1.3 mg/dL [facility] Estimated GFR 59(L) >=60 mL/min/1. 73 m?? [facility] Comment: This patient's estimated GFR [...] and symptoms in addition to eGFR. Blood 02/09/2023 10:0 9 AM EDT 02/09/2023 10:15 AM EDT Narrative Resulting Agency Comment Spec In Lab Gregorio Goodman MD [place] [address] documented in this encounter Visit Diagnoses Diagnosis Aortic valve stenosis, etiology of cardiac valve disease unspecified Aortic valve stenosis, etiology of cardiac valve disease unspecified Aortic valve stenosis, etiology of cardiac valve disease unspecified documented in this encounter Care Teams Motorbike Courier Relationship Specialty Start Date End Date Vanita Churchill, MAC DEVELOPER PCP - General Family Medicine 02/27/19 documented as of this encounter
--- OUTSIDE RECORDS SUMMARY | 2024-06-14 01:47 | XMS_ITS | Encounter Summary ---
[place] [address] Care Team Providers Care Behavioral Specialist Name Role Phone KwesiVanita mix Omar SPARROW Primary Care Provider Reason for Visit * Diagnostic Test (Routine) - Closed Specialty Diagnoses / Procedures Referred By Emy castillo Referred To Contact Gastroenterology Diagnoses Dysphagia, unspecified type HREM - dysphagia Procedures High Resolution Esophageal Manometry HREM - dysphagia Isabella Leslie PA [facility] [place] [address] [facility] [place] [address] [place] [address] Referral ID Status Reason Start Date Expiration Date V isits Requested Visits Authorized [id number] Closed Test Only 06/22/2022 06/22/2023 1 1 Encounter Details Date Type Department Care Team (Latest Contact Info) Description 09/02/2022 9:00 AM EDT Procedure visit [place] [address] Dysphagia, unspecified type Social History Tobacco Use Types [...] as of this encounter Progress Notes * Gregorio Michel MD - 09/02/2022 9:00 AM EDT Images from the original note were not included. HIGH-RESOLUTION ESOPHAGEAL MANOMETRY PROCEDURE NOTE Patient: Lindsey Mehta Address: [address] [place] [id number] : 1950 Date of service: 09/02/2022 Indication: Dysphagia Procedure: The patient arrived after an overnight fast. After verbal consent, a Jessika motility catheter with 36 circumferential sensors on 1 cm spacing with impedance sensors was inserted transnasally after application of topical anesthesia to the nasal passage. The catheter was positioned so that at least 2distal sensors were in the stomach and 2 proximal sensors were located above the UES. A 3-5 minute a cclimation period was provided followed by 10 wet swallows of 5 cc of water while supine. Normal values while supine: Upper esophageal sphincter residual pressure: < 12 mmHg Upper esophageal sphincter relaxation duration: > 480 msec Distal contractile integral (DCI): > 450 and < 8,000 mmHg x cm x s Distal latency time: > 4.5 sec Integrated EGJ relaxation pressure (IRP): < 15 mmHg Normal EGJ resting pressure (respiratory mean): 15-34 mmHg Findings: - Upper Esophageal Sphincter: normal mean residual pressure and relaxation duration - Body: 0% of swallows failed. 0% of swallows had premature contractions with shortened distal latency time. The remaining 100% of swallows were peristaltic, includin% of swallows with hypercontractility, 10% of swallows with weak peristalsis, and 0% of swallows with large breaks (>5 cm) in the 20mmHg isocontour line. - Esophagogastric Junction: Midpoint located 42 cm from the nares, and proximal extent located at 40 cm. The lower esophageal sphincter is located at the same level as the crural diaphragm. Hypertensive resting pressure (mean 60 mmHg) and normal IRP in 100% of swallows (median 7.3 mmHg). - Bolus transit: Liquid boluses cleared in 90% of swallows. - Multiple rapid swallows: Peristaltic reserve: reduced (ratio of post-multiple rapid swallow DCI to median DCI on 10 supine swallows is <1.0) Deglutitive inhibition: normal deglutitive inhibition (DCI <100 mmHg*s*cm) during the maneuver Integrated relaxation pressure: 0 mmHg (normal <12 mmHg) - Rapid drink challenge: Esophageal body contractility: normal deglutitive inhibition (DCI <100 mmHg*s*cm) during the maneuver Integrated relaxation pressure: 0 mmHg (normal <12 mmHg) Spool Tender swallow: Impressions based on [facility] Classification v4.0: No evidence of a clinically significant disorder of peristalsis or EGJ outflow obstruction. *These findings assume that mechanical obstruction has been ruled out. Gregorio Michel MD, CPC Section of Gastroenterology and Hepatology [facility] [place] [address] V: [phone] F: [phone] CC/EC: Vanita Churchill APRN [address] [place] [address] * Zhanna Lugo RN - 09/02/2022 9:00 AM EDT A description of the esophageal manometry procedure was provided to the patient. All questions wereanswered and the patient verbalized understanding. The HREM catheter was placed via the left naris without difficulty. The esophageal manometry procedure was performed and the catheter was removed. The patient tolerated the procedure well. documented in this encounter Miscellaneous Notes * Addendum Note - Zhanna Lugo RN - 09/02/2022 9:00 AM EDTAddended by: ZHANNA LUGO on: 09/02/2022 02:51 PM Modules accepted: Level of Service documented in this encounter Plan of Treatment Upcoming Encounters Date Type Department Care Team (Late st Contact Info) Description 02/06/2025 2:40 PM EDT Office Visit Cardiology at [address] [address] Rigoberto Diaz MD [facility] [place] [address] Scheduled Procedures Name Priority Associated Diagnoses Date/Ti me EGD, UPPER GI ENDOSCOPY (WRV U 2.09) Incontinence of feces, unspecified fecal incontinence type Dysphagia, unspecified type COLONOSCOPY, DIAGNOSTIC (WRV U 3.26) Incontinence of feces, unspecified fecal incontinence type Dysphagia, unspecified type documented as of this encounter Visit Diagnoses Diagnosis Dysphagia, unspecified type documented in this encounter Care Teams Behavioral Specialist Relationship Specialty Start Date End Date Vanita Churchill APRN PCP - General Family Medicine 02/27/19 documented as of this encounter
--- OUTSIDE RECORDS SUMMARY | 2024-06-14 01:47 | XMS_ITS | Encounter Summary ---
Author Organization [facility] [place] [address] Care Team Providers Care Wire Steward Name Role Phone Vanita Churchill APRN Primary Care Provider [phone] Reason for Referral * Consultation (Routine) - Closed Specialty Diagnoses / Procedures Referred By Emy castillo Referred To Contact Cardiology Diagnoses Aortic valve stenosis, etiology of cardiac valve disease unspecified Dyspnea on exertion STRUCTURAL CARD WORSENING MOD-SEVERE AORTIC STENOSIS, SOBOE. NEEDS VALVE REPLACEMENT Vanita Churchill APRN [address] [place] [address] [facility] [address] [place] [phone] Referral ID Status Reason Start Date Expiration Date V isits Requested Visits Authorized [id number] Closed Consult, Test & Treat 12/14/2022 12/14/2023 1 1 Encounter Details Date Type Department Care Team (Latest Contact Info) Description 12/14/2022 Transcribe Orders eDH Incoming Referrals [phone] Vanita Churchill APRN [address] [place] [address] Aortic valve stenosis, etiology of cardiac valve disease unspecified; Dyspnea on exertion Social History Tobacco Use Types Packs/Day Years [...] 2:40 PM EDT Office Visit Cardiology at [address] [phone] Rigoberto Diaz MD [facility] [place] [address] Scheduled Procedures Name Priority Associated Diagnoses Date/Ti me EGD, UPPER GI ENDOSCOPY (WRV U 2.09) Incontinence of feces, unspecified fecal incontinence type Dysphagia, unspecified type COLONOSCOPY, DIAGNOSTIC (WRV U 3.26) Incontinence of feces, unspecified fecal incontinence type Dysphagia, unspecified type Scheduled Referrals Name Type Priority Associated Diagnoses Order Schedule Referral to Cardiology Outpatient Referral Routine Aortic valve stenosis, etiology of cardiac valve disease unspecified Dyspnea on exertion Ordered: 12/14/2022 documented as of this encounter Visit Diagnoses Diagnosis Aortic valve stenosis, etiology of cardiac valve disease unspecified Dyspnea on exertion Other dyspnea and respiratory abnormality documented in this encounter Care Teams Wire Steward Relationship Specialty Start Date End Date Vanita Churchill APRN PCP - General Family Medicine 02/27/19 documented as of this encounter
--- OUTSIDE RECORDS SUMMARY | 2024-06-14 01:47 | XMS_ITS | Encounter Summary ---
[place] [address] Care Team Providers Care Social Work Msw Name Role Phone KwesiVanita mix Omar SPARROW Primary Care Provider [phone] Encounter Details Date Type Department Care Team (Late st Contact Info) Description 02/09/2023 1:50 PM EDT Office Visit Cardiology at [address] [phone] Aortic stenosis, severe Social History Tobacco Use Types Packs/Day Years Used Date Smoking Tobacco: Former Cigarettes 2 30 1 12/21/1973 - 10/21/2004 Smokeless Tobacco: Never Alcohol Use Standard Drinks/Week Comments Yes 0 (1 standard drink = 0.6 oz pur e alcohol) [facility] Inpatient Questions Answer Date Recorded Does Anyone [...] Progress Notes * Keshia Crooks RN - 02/09/2023 1:50 PM EDTSummary: SHT N/A documented in this encounter Plan of Treatment Upcoming Encounters Date Type Department Care Team (Late st Contact Info) Description 02/06/2025 2:40 PM EDT Office Visit Cardiology at [address] [place] [address] Rigoberto Diaz MD [facility] [place] [address] Scheduled Procedures Name Priority Associated Diagnoses Date/Ti me EGD, UPPER GI ENDOSCOPY (WRV U 2.09) Incontinence of feces, unspecified fecal incontinence type Dysphagia, unspecified type COLONOSCOPY, DIAGNOSTIC (WRV U 3.26) Incontinence of feces, unspecified fecal incontinence type Dysphagia, unspecified type documented as of this encounter Visit Diagnoses Diagnosis Aortic stenosis, severe Aortic valve disorders documented in this encounter Care Teams Social Work Msw Relationship Specialty Start Date End Date Vanita Churchill, SKID ADZER PCP - General Family Medicine 02/27/19 documented as of this encounter
--- OUTSIDE RECORDS SUMMARY | 2024-06-14 01:47 | XMS_ITS | Encounter Summary ---
[place] [address] Care Team Providers Care Educational Guidance Counselor Name Role Phone Vanita Churchill APRN Primary Care Provider [phone] Encounter Details Date Type Department Care Team (Late st Contact Info) Description 12/20/2022 Notes Only Cardiology at [address] [phone] Ralph Dominguez, RN Social History Tobacco Use Types Packs/Day [...] as of this encounter Progress Notes * Ralph Dominguez RN - 12/20/2022 8:30 AM EST Ms. Deleon is referred by Vanita Churchill APRN for consideration of treatment options for severe, symptomatic, aortic stenosis; please refer to notes in media section for detailed history and assessment.In brief, the patient has been experiencing worsening dyspnea on exertion and recent echo showed severe aortic stenosis. Her history includes the following: ; HTN; HLD; COPD; CHEAM; GERD; Hypothyroidism; PAD with claudication; Carotid stenosis; Obesity and Depression. Echo 12/12/2022: EF 56%; AUREA 1.0; Gr 47/30; Trace AR/TR; Moderate MR Labs 05/21/2019: WBC 11.5; Hgb 13.3; Hct 39.4; Plts 260; Cr 1.04; eGFR 54 STS: 1.97 Plan: [place] daily [facility] clinic, diagnostics, frailty assessment and cardiac cath. documented in this encounter Plan of Treatment Upcoming Encounters Date Type Department Care Team (Late st Contact Info) Description 02/06/2025 2:40 PM EDT Office Visit Cardiology at [address] [place] [address] Rigoberto Diaz MD [facility] [place] [address] Scheduled Procedures Name Priority Associated Diagnoses Date/Ti me EGD, UPPER GI ENDOSCOPY (WRV U 2.09) Incontinence of feces, unspecified fecal incontinence type Dysphagia, unspecified type COLONOSCOPY, DIAGNOSTIC (WRV U 3.26) Incontinence of feces, unspecified fecal incontinence type Dysphagia, unspecified type documented as of this encounter Visit Diagnoses Not on filedocumented in this encounter Care Teams Educational Guidance Counselor Relationship Specialty Start Date End Date Vanita Churchill APRN PCP - General Family Medicine 02/27/19 documented as of this encounter
--- OUTSIDE RECORDS SUMMARY | 2024-06-14 01:47 | XMS_ITS | Encounter Summary ---
[place] [address] Care Team Providers Care Diet Clerk Name Role Phone Vanita Churchill APRN Primary Care Provider [phone] Reason for Referral * Diagnostic Test (Routine) - Closed Specialty Diagnoses / Procedures Referred By Emy castillo Referred To Contact Gastroenterology Diagnoses Dysphagia, unspecified type HREM - dysphagia Procedures High Resolution Esophageal Manometry HREM - dysphagia Isabella Leslie PA [facility] [address] [facility] [place] [address] [address] Referral ID Status Reason Start Date Expiration Date V isits Requested Visits Authorized [id number] Closed Test Only 06/22/2022 06/22/2023 1 1 Reason for Visit * Consultation (Routine) - Closed Specialty Diagnoses / Procedures Referred By Emy castillo Referred To Contact Gastroenterology Diagnoses Irritable bowel syndrome, unspecified type Incontinence of feces, unspecified fecal incontinence type Dysphagia, unspecified type IBS, fecal inctinence; dysphagia Vanita Churchill, BABY FORMULA MIXER [address] [place] [address] [facility] [address] [place] [address] Referral ID Status Reason Start Date Expiration Date V isits Requested Visits Authorized [id number] Closed Consult, Test & Treat 05/09/2022 05/09/2023 1 1 Encounter Details Date Type Department Care Team (Latest Contact Info) Description 06/22/2022 10:00 AM EDT TH Visit (TeleHealth) [place] [address] Isabella Leslie PA [facility] [place] [address] Incontinence of feces, unspecified fecal incontinence type; Dysphagia, unspecified type Social History Tobacco Use [...] as of this encounter Progress Notes * Isabella Leslie PA - 06/22/2022 10:00 AM EDT Images from the original note were not included. GASTROENTEROLOGY TELEHEALTH PROGRAM - NEW PATIENT VISIT Chief Complaint: Lindsey Deleon is a 71 y.o. patient referred for consultation by Dr. Churchill for fecal incontinence and dysphagia History of Present Illness: 71-year-old female referred to gastroenterology for irritable bowel syndrome and fecal incontinence. She also has been experiencing dysphagia Fecal incontinence: started two months ago. Occurs when she is having diarrhea. She tends to have 3-4 bowel movements per day which she relates to her IBS. She also has constipation at times. She hasIncontinence less than weekly. She has had some passive incontinence. No melena or hematochezia Trials: Imodium AD- this helps but she has to be careful she does not experience constipation Dysphagia: She reports having something removed from my larynx. This was at least 6 years ago. She reports choking when she eats. She feels food also gets stuck and she needs to drink water to force it down. This happens with solids, not liquids. She notes a globus sensation on a daily basis. She has true dysphagia less often. No classic heartburn or reflux. She had a willem over 8+ years ago. Last EGD and coloscopy 2013 No unintentional weight loss- she is trying to loose weight to help with her back She has CPAP at night. She tells me she requires a high pressure Review of systems: 14-point review of systems reviewed and negative except as above. Medications: ??? nystatin (MYCOSTATIN) Powder ??? buPROPion SR (Wellbutrin SR) 150 mg tablet sustained-release 12 hr ??? nystatin (MYCOSTATIN) Cream ??? hydrocortisone 1 % Cream ??? guaiFENesin ER (Mucinex) 600 mg Tablet Extended Release 12hr ??? diclofenac (VOLTAREN) 1 % Gel ??? albuterol 90 mcg/actuation HFA Aerosol Inhaler ??? cholecalciferol, vitamin D3, (D3-2000 ORAL) ??? rosuvastatin (CRESTOR) 20 mg Tablet ??? ezetimibe (ZETIA) 10 mg Tablet ??? calcium-vitamin D 500 mg(1,250mg) -200 unit Tablet ??? acetaminophen (TYLENOL) 325 mg Tablet ??? iron polysaccharides (NIFEREX) 150 mg iron Capsule ??? diphenhydrAMINE (BENADRYL) 25 mg Capsule ??? citalopram (CELEXA) 40 mg Tablet ??? ipratropium-albuterol (DUONEB) 0.5 mg-3 mg(2.5 mg base)/3 mL Solution for Nebulization ??? cetirizine (ZyrTEC) 10 mg Tablet ??? fluticasone (FLOVENT) 110 mcg/actuation HFA Aerosol Inhaler ??? levothyroxine (SYNTHROID) 50 mcg Tablet ??? multivitamin (THERAGRAN) tablet ??? ziprasidone (GEODON) 20 mg capsule ??? aspirin 325 mg tablet ??? CARBOXYMETHYLCELLULOSE SODIUM (REFRESH TEARS OPHT) ??? FOLIC ACID ORAL ??? hydroCHLOROthiazide (Hydrodiuril) 12.5 mg Tablet ??? UNABLE TO FIND ??? POLYETHYLENE GLYCOL 3350 (MIRALAX ORAL) Allergies: is allergic to latex, mineral oil, hemorrhoid cream [tissue resp fact-shark mynor oil], kaopectate [bismuth subsalicylate], and lisinopril. Past Medical History: Past Surgical History: has a past surgical history that includes Colonoscopy, Diagnostic (83752) (12/06/2012); Upper Gi Endoscopy, Biopsy (09042) (12/06/2012); Cholecystectomy; Tubal ligation; Laparscopy Repair Paraesophageal Hernia Incl Fundoplasty W/O Mesh (26469) (02/18/2013); Revsc Open/Percutaneous Iliac Art W Stnt Plmt&Angio Trace Vsl Unilat([id number]) (Bilateral, 08/15/2017); Thromboendartectmy Iliofemoral (38843) (Left, 08/15/2017); S&I Aortography, Abdominal Plus Bilateral Iliofemoral Lower Extremity (07028) (N/A, 08/15/2017); Place Cath First Order Art, Abd/Pelv (61954) (08/15/2017); andThromboendartectmy Neck, Neck Incis (34243) (Right, 06/10/2019). Family History: denies family history of colon cancer, IBD, or celiac disease in mother father or other family members Social History: Tobacco- none, quit 20 years ago EtOH- none Drugs- none Physical exam: No Physical Examination performed during this telemedicine visit Assessment/Plan: 71-year-old female referred to gastroenterology for 2 concerns, fecal incontinence and dysphagia/globus sensation. She reports having irritable bowel syndrome which fluctuates between diarrhea and constipation. When she has having diarrhea she is more inclined to have incontinence. This was occurring a few times per month though she has had episodes of passive incontinence as well. She endorses aglobus sensation and dysphagia to solid foods. Her last EGD and colonoscopy were in 2012. She has had high-resolution esophageal manometry, possibly 8+ years ago prior to her Willem fundoplication. Her Willem fundoplication has controlled her dyspepsia and she does not need medication. She does require CPAP at night and tells me she requires fairly high pressures. She also has emphysema but is not currently on oxygen therapy We discussed fecal incontinence and dysphagia in detail and reviewed the following plan which she is comfortable with. We discussed all of these test in detail. 1. EGD and colonoscopy to evaluate for causes of diarrhea, incontinence and dysphagia. Given her obstructive sleep apnea and emphysema we will do these with monitored anesthesia care If EGD and colonoscopy are unremarkable we will proceed with the following studies 1. Barium swallow 2. High-resolution esophageal manometry 3. Anorectal manometry I will order these 3 tests now but as above I would recommend starting with EGD and colonoscopy In terms of management, we will review all results at her consolidation appointment. In the meantime she certainly can continue using Imodium which works well for her. All of her questions today were answered and she is comfortable with the above plan [facility] [place] [address] documented in this encounter Plan of Treatment Upcoming Encounters Date Type Department Care Team (Late st Contact Info) Description 02/06/2025 2:40 PM EDT Office Visit Cardiology at [address] [phone] Rigoberto Diaz MD [facility] [place] [address] Scheduled Orders Name Type Priority Associated Diagnoses Orde r Schedule ENDOSCOPY CASE REQUEST: EGD, UPPER GI ENDOSCOPY, COLONOSCOPY, DIAGNOSTIC Procedures Routine Incontinence of feces, unspecified fecal incontinence type Dysphagia, unspecified type Ordered: 06/22/2022 High Resolution Esophageal Manometry GI Routine Dysphagia, unspecified type Expected: 06/22/2022 (Approximate), Expires: 06/22/2023 Scheduled Procedures Name Priority Associated Diagnoses Date/Ti me EGD, UPPER GI ENDOSCOPY (WRV U 2.09) Incontinence of feces, unspecified fecal incontinence type Dysphagia, unspecified type COLONOSCOPY, DIAGNOSTIC (WRV U 3.26) Incontinence of feces, unspecified fecal incontinence type Dysphagia, unspecified type documented as of this encounter Visit Diagnoses Diagnosis Incontinence of feces, unspecified fecal incontinence type Dysphagia, unspecified type documented in this encounter Care Teams Diet Clerk Relationship Specialty Start Date End Date Vanita Churchill, BABY FORMULA MIXER PCP - General Family Medicine 02/27/19 documented as of this encounter
--- OUTSIDE RECORDS SUMMARY | 2024-06-14 01:47 | XMS_ITS | Encounter Summary ---
[place] [address] Care Team Providers Care Engine Repairer Production Name Role Phone Vanita Churchill Omar SPARROW Primary Care Provider [phone] Encounter Details Date Type Department Care Team (Late st Contact Info) Description 06/22/2022 Telephone [place] [phone] Nitza Barker CMA GASTROENTEROLOGY DEPT Social History Tobacco Use Types Packs/Day Years [...] encounter Miscellaneous Notes * Telephone Encounter - Nitza Barker CMA - 06/22/2022 8:20 AM EDT Called patient to review medications and allergies for their upcoming gastroenterology Type of Appointment: Telehealth appointment. Reach Patient during MA Check: Yes Notes for the provider: Notes for the nurse: documented in this encounter Plan of Treatment Upcoming Encounters Date Type Department Care Team (Late st Contact Info) Description 02/06/2025 2:40 PM EDT Office Visit Cardiology at [address] [place] [address] Rigoberto Diaz MD [facility] [place] [address] Scheduled Procedures Name Priority Associated Diagnoses Date/Ti me EGD, UPPER GI ENDOSCOPY (WRV U 2.09) Incontinence of feces, unspecified fecal incontinence type Dysphagia, unspecified type COLONOSCOPY, DIAGNOSTIC (WRV U 3.26) Incontinence of feces, unspecified fecal incontinence type Dysphagia, unspecified type documented as of this encounter Visit Diagnoses Not on filedocumented in this encounter Care Teams Engine Repairer Production Relationship Specialty Start Date End Date Vanita Churchill APRN PCP - General Family Medicine 02/27/19 documented as of this encounter
--- OUTSIDE RECORDS SUMMARY | 2024-06-14 01:47 | XMS_ITS | Encounter Summary ---
Author Organization [facility] [place] [address] Care Team Providers Care Promotional Model Name Role Phone Vanita Churchill Omar SPARROW Primary Care Provider [phone] Encounter Details Date Type Department Care Team (Late st Contact Info) Description 09/01/2021 Telephone Sleep Center at [facility] [address] [place] [phone] Ida Ibrahim Social History Tobacco Use Types Packs/Day Years [...] Encounters Date Type Department Care Team (Late Contact Info) Description 02/06/2025 2:40 PM EDT Office Visit Cardiology at [address] [place] [phone] Rigoberto Diaz MD [facility] [place] [address] Scheduled Procedures Name Priority Associated Diagnoses Date/Ti me EGD, UPPER GI ENDOSCOPY (WRV U 2.09) Incontinence of feces, unspecified fecal incontinence type Dysphagia, unspecified type COLONOSCOPY, DIAGNOSTIC (WRV U 3.26) Incontinence of feces, unspecified fecal incontinence type Dysphagia, unspecified type documented as of this encounter Visit Diagnoses Not on filedocumented in this encounter Care Teams Promotional Model Relationship Specialty Start Date End Date Vanita Churchill, FLAG MAKER PCP - General Family Medicine 02/27/19 documented as of this encounter
--- OUTSIDE RECORDS SUMMARY | 2024-06-14 01:47 | XMS_ITS | Encounter Summary ---
[place] [address] Care Team Providers Care Newspaper Subscription Solicitor Name Role Phone Vanita Churchill MOTORCYCLE FABRICATOR Primary Care Provider [phone] Encounter Details Date Type Department Care Team (Late st Contact Info) Description 02/15/2023 Telephone Cardiology at [address] [phone] Clarice Bates RN Social History Tobacco Use Types Packs/Day [...] Telephone Encounter - Clarice Bates RN - 02/15/2023 2:03 PM EDT VM asking if we had called to schedule some test- left on nurse line and this nurse did not. Chart reviewed. No notes from anyone trying to reach patient. No testing scheduled. Will route to scheduling. Clarice Bates RN 4A Cardiology documented in this encounter Plan of Treatment Upcoming Encounters Date Type Department Care Team (Late st Contact Info) Description 02/06/2025 2:40 PM EDT Office Visit Cardiology at [address] [place] [address] Rigoberto Diaz MD [facility] [place] [address] Scheduled Procedures Name Priority Associated Diagnoses Date/Ti me EGD, UPPER GI ENDOSCOPY (WRV U 2.09) Incontinence of feces, unspecified fecal incontinence type Dysphagia, unspecified type COLONOSCOPY, DIAGNOSTIC (WRV U 3.26) Incontinence of feces, unspecified fecal incontinence type Dysphagia, unspecified type documented as of this encounter Visit Diagnoses Not on filedocumented in this encounter Care Teams Newspaper Subscription Solicitor Relationship Specialty Start Date End Date Vanita Churchill, MOTORCYCLE FABRICATOR PCP - General Family Medicine 02/27/19 documented as of this encounter
--- OUTSIDE RECORDS SUMMARY | 2024-06-14 01:47 | XMS_ITS | Encounter Summary ---
[place] [address] Care Team Providers Care Employment Law Specialist Name Role Phone Vanita Churchill APRN Primary Care Provider [phone] Reason for Referral * Consultation (Routine) - Closed Specialty Diagnoses / Procedures Referred By Emy castillo Referred To Contact Gastroenterology Diagnoses Irritable bowel syndrome, unspecified type Incontinence of feces, unspecified fecal incontinence type Dysphagia, unspecified type IBS, fecal inctinence; dysphagia Vanita Churchill APRN [address] [place] [address] [facility] [address] [address] Referral ID Status Reason Start Date Expiration Date V isits Requested Visits Authorized [id number] Closed Consult, Test & Treat 05/09/2022 05/09/2023 1 1 Encounter Details Date Type Department Care Team (Latest Contact Info) Description 05/09/2022 Transcribe Orders eDH Incoming Referrals [phone] Vanita Churchill APRN [address] [place] [address] Irritable bowel syndrome, unspecified type; Incontinence of feces, unspecified fecal incontinence type; [...] 2:40 PM EDT Office Visit Cardiology at [address] [phone] Rigoberto Diaz MD [facility] [place] [address] Scheduled Procedures Name Priority Associated Diagnoses Date/Ti me EGD, UPPER GI ENDOSCOPY (WRV U 2.09) Incontinence of feces, unspecified fecal incontinence type Dysphagia, unspecified type COLONOSCOPY, DIAGNOSTIC (WRV U 3.26) Incontinence of feces, unspecified fecal incontinence type Dysphagia, unspecified type Scheduled Referrals Name Type Priority Associated Diagnoses Order Schedule Referral to Gastroenterology Outpatient Referral Routine Irritable bowel syndrome, unspecified type Incontinence of feces, unspecified fecal incontinence type Dysphagia, unspecified type Ordered: 05/09/2022 documented as of this encounter Visit Diagnoses Diagnosis Irritable bowel syndrome, unspecified type Incontinence of feces, unspecified fecal incontinence type Dysphagia, unspecified type documented in this encounter Care Teams Employment Law Specialist Relationship Specialty Start Date End Date Vanita Churchill APRN PCP - General Family Medicine 02/27/19 documented as of this encounter
--- OUTSIDE RECORDS SUMMARY | 2024-06-14 01:47 | XMS_ITS | Encounter Summary ---
[place] [address] Care Team Providers Care Registered Public Health Nurse Name Role Phone Kwesidominguez Vanita Dominguez SPARROW Primary Care Provider [phone] Reason for Referral * Diagnostic Test (Routine) - Closed Specialty Diagnoses / Procedures Referred By Emy castillo Referred To Contact Diagnoses Stenosis of right carotid artery Procedures Carotid Duplex, Bilateral Niurka Marino APRN [facility] [place] [address] [facility] [address] [place] [phone] Referral ID Status Reason Start Date Expiration Date V isits Requested Visits Authorized [id number] Closed Specialty Service Requested 07/15/2022 07/15/2023 1 1 * Diagnostic Test (Routine) - Closed Specialty Diagnoses / Procedures Referred By Emy castillo Referred To Contact Diagnoses PAD (peripheral artery disease) Procedures MARIYA, legs, multiple levels Niurka Marino APRN [facility] [place] [address] [facility] [address] [place] [address] [place] [address] Referral ID Status Reason Start Date Expiration Date V isits Requested Visits Authorized [id number] Closed Specialty Service Requested 07/15/2022 07/15/2023 1 1 Encounter Details Date Type Department Care Team (Late st Contact Info) Description 07/15/2022 11:00 AM EDT Office Visit [place] [phone] Niurka Marino APRN [facility] [place] [address] PAD (peripheral artery disease); Stenosis of right [...] Sign Reading Time Taken Comments Blood Pressure 131/94 07/15/2022 11:41 AM EDT Pulse 66 07/15/2022 11:40 AM EDT Temperature - - Respiratory Rate 18 07/15/2022 11:40 AM EDT Oxygen Saturation - - Inhaled Oxygen Concentration - - Weight 80.7 kg (178 lb) 07/15/2022 11:40 AM EDT Height 162.6 cm (5' 4) 07/15/2022 11:40 AM EDT Body Mass Index 30.55 07/15/2022 11:40 AM EDT documented in this encounter Progress Notes * Niurka Marino APRN - 07/15/2022 11:00 AM EDT OUTPATIENT VASCULAR SURGERY FOLLOW-UP Reason for Visit: carotid stenosis, PAD History of Present Illness: Lindsey Mehta is a 71 y.o. female with PMH: HTN, HLD, RA, COPD, CHEMA, GERD, macular degeneration who is here for follow-up evaluation of her carotid stenosis and PAD. She has h/o L iliofemoral endarterectomy, B TRE stent placement (8x38mm BE) for short distance claudi cation in 2016 and more recently R CEA for asymptomatic stenosis in May 2019. Today, she denies any sx of TIA or CVA including new vision loss (Right eye permanent vision loss r/t macular degen), extremity weakness, difficulty speaking. She denies claudication, rest pain, difficulty healing. Denies CP, SOB. She takes ASA and Crestor. She was a former smoker, quit in 2003. Atherosclerotic Risk Factors: (n) DM (y) HTN (n) CAD (n) CHF (y) Hyperlipidemia (n) CVA reports that she quit smoking about 17 years ago. Her smoking use included cigarettes. She has a 60.00 pack-year smoking history. She has never used smokeless tobacco. Patient Active Problem List Diagnosis Code ??? [...] vascular disease I73.9 ??? Carotid stenosis I65.29 Current Outpatient Medications: ??? hydroCHLOROthiazide (Hydrodiuril) 12.5 mg Tablet, , Disp: , Rfl: ??? nystatin (MYCOSTATIN) Powder, Apply topically 4 times daily., Disp: , Rfl: ??? buPROPion SR (Wellbutrin SR) 150 mg tablet sustained-release 12 hr, Take by mouth., Disp: , Rfl: ??? nystatin (MYCOSTATIN) Cream, Apply topically., Disp: , Rfl: ??? hydrocortisone 1 % Cream, Apply topically., Disp: , Rfl: ??? guaiFENesin ER (Mucinex) 600 mg Tablet Extended Release 12hr, Take by mouth as needed., Disp: ,Rfl: ??? diclofenac (VOLTAREN) 1 % Gel, Apply topically., Disp: , Rfl: ??? albuterol 90 mcg/actuation HFA Aerosol Inhaler, Inhale 2 puffs into the lungs every 4 hours as needed for Wheezing. Use with spacer, Disp: , Rfl: ??? cholecalciferol, vitamin D3, (D3-2000 ORAL), Take by mouth., Disp: , Rfl: ??? rosuvastatin (CRESTOR) 20 mg Tablet, Take 20 mg by mouth daily., Disp: , Rfl: ??? ezetimibe (ZETIA) 10 mg Tablet, Take 10 mg by mouth daily., Disp: , Rfl: ??? UNABLE TO FIND, John, Disp: , Rfl: ??? calcium-vitamin D 500 mg(1,250mg) -200 unit Tablet, Take 1 tablet by mouth daily. 600 mg BID, Disp: , Rfl: ??? acetaminophen (TYLENOL) 325 mg Tablet, Take 650 mg by mouth every 4 hours as needed for Pain., Disp: , Rfl: ??? iron polysaccharides (NIFEREX) 150 mg iron Capsule, Take 65 mg by mouth daily., Disp: , Rfl: ??? diphenhydrAMINE (BENADRYL) 25 mg Capsule, Take 25 mg by mouth nightly as needed for Itching. Takes 2 tablets In am and 2 tablets in pm, Disp: , Rfl: ??? citalopram (CELEXA) 40 mg Tablet, Take 40 mg by mouth daily., Disp: , Rfl: ??? ipratropium-albuterol (DUONEB) 0.5 mg-3 mg(2.5 mg base)/3 mL Solution for Nebulization, Take 3 mLs by nebulization 2 times daily., Disp: , Rfl: ??? cetirizine (ZyrTEC) 10 mg Tablet, Take 10 mg by mouth daily., Disp: , Rfl: ??? fluticasone (FLOVENT) 110 mcg/actuation HFA Aerosol Inhaler, Inhale 1 puff into the lungs 2 times daily. flovent diskus, Disp: , Rfl: ??? levothyroxine (SYNTHROID) 50 mcg Tablet, Take 50 mcg by mouth daily. Indications: Hypothyroidism, Disp: , Rfl: ??? multivitamin (THERAGRAN) tablet, Take 1 tablet by mouth daily., Disp: , Rfl: ??? POLYETHYLENE GLYCOL 3350 (MIRALAX ORAL), Take by mouth as needed., Disp: , Rfl: ??? ziprasidone (GEODON) 20 mg capsule, Take 20 mg by mouth 2 times daily (with meals)., Disp: , Rfl: ??? aspirin 325 mg tablet, Take 325 mg by mouth daily., Disp: , Rfl: ??? CARBOXYMETHYLCELLULOSE SODIUM (REFRESH TEARS OPHT), Apply to eye 2 times daily., Disp: , Rfl: ??? FOLIC ACID ORAL, , Disp: , Rfl: Allergies Allergen Reactions ??? Latex Itching ??? Mineral Oil ??? Hemorrhoid Cream [Tissue Resp Fact-Shark Fadumo Oil] Other (See Comments) Bleeding ??? Kaopectate [Bismuth Subsalicylate] Other (See Comments) Rectal Bleeding ??? Lisinopril Other (See Comments) coughing Review of Systems: Constitutional (weight change, fever) - Denies Neuro (dizziness, seizures, numbness, tingling) - Denies Eyes (vision) - Denies Ears, nose, throat (hearing) - Denies Cardiovascular (CP) - Denies Respiratory (SOB) - Denies GI (abd pain, nausea, emesis, blood in stool) - Denies (hematuria, dysuria, frequency) - Denies Muscoloskeletal (extremity pain, weakness) - Denies Skin (ulcers, rashes) - Denies Functional Status/Social Hx: Lives at home, Retired, Drives Car, Denies current Tobacco Use Family Hx: Negative for Thrombosis, Bleeding Disorders Physical Exam: General - NAD, appears stated age Neuro - Alert and Oriented, Motor Sensory grossly intact Skin - No prominent markings or lesions Ear, Nose, Throat - No masses, No lesions, well healed R cervical incision Cardiac - RRR, 1/6 systolic murmur Lungs - CTA bilaterally Abd - Soft, NT, ND, No palpable pulsatile masses Musculoskeletal- full ROM upper and lower extremities Psych- alert oriented X3 Extremities - Warm, pink, no edema, brisk capillary refill Vascular Exam: R L Carotid 2/2 bruit (n) 2/2 bruit (n) Radial 2/2 2/2 Femoral 2/2 2/2 Popliteal 0/2 0/2 DP 0/2 0/2 PT 0/2 0/2 Studies: Carotid Duplex 07/15/2022 Findings: ICA Proximal, Right ?PSV (cm/s): 100 ?EDV (cm/s): 27 ?ICA/CCA: 1.0 ?Plaque Structure: Echogenic ?Plaque Surface: Irregular ?%Stenosis: <15% ICA Distal, Right ?PSV (cm/s): 100 ?EDV (cm/s): 27 ?ICA/CCA: 1.0 CCA Distal, Right ?PSV (cm/s): 99 ?EDV (cm/s): 20 ?%Stenosis: Minimal CCA Proximal, Right ?PSV (cm/s): 113 ?EDV (cm/s): 14 External Carotid Artery, Right ?PSV (cm/s): 178 ?EDV (cm/s): 26 ?%Stenosis: <50% Vertebral, Right ?PSV (cm/s): 66 ?EDV (cm/s): 14 ?Direction of Flow: Antegrade ICA Proximal, Left ?PSV (cm/s): 102 ?EDV (cm/s): 32 ?ICA/CCA: 1.0 ?Plaque Structure: Echogenic ?Plaque Surface: Irregular ?%Stenosis: 16-49% ICA Distal, Left ?PSV (cm/s): 64 ?EDV (cm/s): 20 ?ICA/CCA: 0.6 CCA Distal, Left ?PSV (cm/s): 107 ?EDV (cm/s): 24 ?%Stenosis: Minimal CCA Proximal, Left ?PSV (cm/s): 72 ?EDV (cm/s): 19 External Carotid Artery, Left ?PSV (cm/s): 187 ?EDV (cm/s): 11 ?%Stenosis: <50% Vertebral, Left ?PSV (cm/s): 41 ?EDV (cm/s): 11 ?Direction of Flow: Antegrade ?? Interpretation: RIGHT: A thin layer of circumferential plaque is present in the common carotid artery causing no stenosis. There is irregular plaque in the proximal internal carotid artery causing <15% stenosis when compared to the more distal internal carotid artery. The bifurcation level is in the mid neck. No significant change compared to the exam on 07/12/2021. ?? LEFT: A thin layer of circumferential plaque is present in the common carotid artery causing no stenosis. There is bulky irregular plaque in the proximal internal carotid artery causing 16-49% stenosis when compared to the more distal internal carotid artery. The bifurcation level is in the mid neck. No significant change compared to the exam on 07/12/2021. ?? Vertebral Artery Data: Patent vertebral arteries with normal antegrade Doppler waveforms and velocities bilaterally. ?? Previous Carotid Studies: Date ?RIGHT ICA Stenosis ??PSV ?? Ratio ?? LEFT ICA Stenosis ?? PSV ?? Ratio ? 80-99% ? 514 ?? 8.00 ? 16-49% ? 88 ?1.20 ? <15% ? 96 ?1.20 ? n/a ?n/a ?? n/a ? <15% ? 131 ?? 2.00 ? 16-49% ? 102 ?? 1.00 ? 16-49% ? 125 ?? 1.20 ? 16-49% ? 100 ?? 0.90 Current Exam ? <15% ? 100 ?? 1.00 ? 16-49% ? 102 ?? 1.00 MARIYA 07/15/2022 Findings: Right ?Pressure (mm Hg) ?? MARIYA ??Waveform ? Brachial Artery ?162 ? Dorsalis Pedis (Ankle) Artery ?138 ? 0.85 ??Bi-Triphasic ?? Posterior Tibial (Ankle) Artery ??144 ? 0.89 ??Bi-Triphasic ? Left ? Pressure (mm Hg) ?? MARIYA ??Waveform ? Brachial Artery ?158 ? Dorsalis Pedis (Ankle) Artery ?114 ? 0.70 ??Bi-Triphasic ?? Posterior Tibial (Ankle) Artery ??112 ? 0.69 ??Bi-Triphasic ? Interpretation: RIGHT: Mild lower extremity arterial occlusive disease at rest. No significant change compared to the previous exam on 07/12/2021. LEFT: Mild to moderate lower extremity arterial occlusive disease at rest. No significant change compared to the previous exam on 07/12/2021. Assessment and Plan: 71 y.o. female with PMH: HTN, HLD, RA, COPD, CHEMA, GERD, macular degeneration, PAD s/p L iliofemoral endarterectomy, B TRE stent placement for claudication in 2016 and carotid stenosis s/p R CEA for asymptomatic stenosis in May 2019. Stable carotid artery stenosis on duplex today: R ICA <15% stenosis and L ICA 16-49%. Patient remains asymptomatic. Recommend tight control of co-morbidities and continued abstinence from smoking. Follow-up in the clinic in 1 year with repeat carotid duplex. Instructed to call the clinic with any concerns prior tonext appointment. Instructed to call 911 for any s/sx of TIA/CVA including unilateral extremity weakness, facial droop, acute change in vision or speech. PAD stable today; R DP/PT 0.85/0.89, L DP/PT 0.70/0.69, pt remains asymptomatic. Follow-up in the clinic in 1 year with ABIs. Instructed to call the clinic with any concerns prior to next appointment. Instructed to call 911 for any s/sx of CLI including unilateral increased pain, decreased sensation or temperature, or tissue loss. Continue ASA and Crestor. Niurka Marino APRN Department of Vascular Surgery documented in this encounter Plan of Treatment Upcoming Encounters Date Type Department Care Team (Late st Contact Info) Description 02/06/2025 2:40 PM EDT Office Visit Cardiology at [address] [place] [address] Rigoberto Diaz MD [facility] [place] [address] Scheduled Procedures Name Priority Associated Diagnoses Date/Ti me EGD, UPPER GI ENDOSCOPY (WRV U 2.09) Incontinence of feces, unspecified fecal incontinence type Dysphagia, unspecified type COLONOSCOPY, DIAGNOSTIC (WRV U 3.26) Incontinence of feces, unspecified fecal incontinence type Dysphagia, unspecified type documented as of this encounter Results * Carotid Duplex, Bilateral (07/17/2023 7:58 AM EDT) VB Text Report Department: Vascular Surgery Lab Patient: [id number] (LINDSEY MEHTA) CPT: 10018 Referring Physician: NIURKA MARINO ?? Phone: Indications: Patient with h/o [...] of Report VASCUBASE 07/17/2023 7:58 AM EDT Niurka Marino APRN VASCULAR ORDERABLES VASCUBASE * MARIYA, legs, multiple levels (07/17/2023 7:58 AM EDT) VB Text Report Department: Vascular Surgery Lab Patient: [id number] (BEA LINDSEY) CPT: 49289 Referring Physician: NIURKA MARINO ?? Phone: Indications: Patient with h/o [...] ? Posterior Tibial (Ankle) Artery ??87 ?0.55 ??[place]-Biphasic ?? Interpretation: RIGHT: Mild lower extremity arterial [...] of Report VASCUBASE 07/17/2023 7:58 AM EDT Niurka Marino APRN VASCULAR ORDERABLES VASCUBASE documented in this encounter Visit Diagnoses Diagnosis PAD (peripheral artery disease) Peripheral vascular disease, unspecified Stenosis of right carotid artery Occlusion and stenosis of carotid artery without mention of cerebral infarction documented in this encounter Care Teams Registered Public Health Nurse Relationship Specialty Start Date End Date Vanita Churchill APRN PCP - General Family Medicine 02/27/19 documented as of this encounter
--- OUTSIDE RECORDS SUMMARY | 2024-06-14 01:47 | XMS_ITS | Encounter Summary ---
[place] [address] Care Team Providers Care Local Coordinator Name Role Phone KwesiVanita mix Omar SPARROW Primary Care Provider Reason for Visit * Auth/Cert (Routine) Specialty Diagnoses / Procedures Referred By Emy castillo Referred To Contact Diagnoses Nonrheumatic aortic (valve) stenosis Aortic valve stenosis, etiology of cardiac valve disease unspecified [I35.0] Procedures PRG CATH PLMT CORONARY ART W/INJ FOR ANGIO W/R HEART CATH IMG S&I PRO MOD SED SAME PHYS/QHP INITIAL 15 MINS 5/> YRS CARDIAC CATHETERIZATION CORONARY ANGIOGRAPHY; W RHC Mike Torres MD [facility] [place] [address] [facility] Referral ID Status Reason Start Date Expiration Date Visits Re quested Visits Authorized [id number] 1 1 Encounter Details Date Type Department Care Team (Late st Contact Info) Description 01/31/2023 11:00 AM EST - 01/31/2023 12:00 PM EST Surgery Machine [place] [id number] Mike Torres MD [facility] [place] [address] CARDIAC CATHETERIZATION Social History Tobacco Use Types [...] Sign Reading Time Taken Comments Blood Pressure 181/69 01/31/2023 11:13 AM EST 177/84 RUE Pulse 80 01/31/2023 11:13 AM EST Temperature 36.6 ??C (97.9 ??F) 01/31/2023 1 1:13 AM EST Respiratory Rate 16 01/31/2023 11:1 3 AM EST Oxygen Saturation 96% 01/31/2023 11: 13 AM EST Inhaled Oxygen Concentration - - Weight 80.5 kg (177 lb 6.4 oz) 02/01/20 11:13 AM EST Height - - Body Mass Index 30.93 01/20/2023 1:55 PM EST documented in this encounter Discharge Instructions * Patient Instructions* Eddie Cervantes, - 01/31/2023 1:22 PM EST Increase Hydrochlorothiazide to 25mg daily and Start amlodipine 5mg daily We will contact you regarding your Aortic Valve- which is severe and will need valve replacement Continue rest of medical management Close outpatient follow up with cardiology Radial Access for Heart Cath Activity Try to avoid bending your wrist for the first 12-24 hours after the procedure to allow the artery to fully heal. Do not participate in active sports for 48 hours. Do not lift anything greater than 5 lbs. Catheter Insertion Area Care Take the dressing off of the catheter insertion site the morning following the procedure. Leave thesite open to air. If the site is oozing you may cover it with a band aid. You may take a shower if you wish. Look for signs of infection over the next several days. It is uncommon to have any visible blood at the site, any obvious bleeding is abnormal. A bruise around the wrist or small lump under the skin is normal: they generally disappear in 3-5 days. Expect some mild tenderness over the area where the catheter was inserted. You will notice this after the local anesthetic (numbing medicine) wears off. This should improve during the 24-48 hours after the procedure. You may use acetaminophen (tylenol) if needed. Contact your doctor if the discomfort worsens. Problems to Watch for If there is bright red blood flowing from the catheter insertion area: *stop what you are doing *hold pressure steadily on the area for 15 minutes *call for help *if the bleeding does not stop in 15 minutes call 911 for an ambulance. If there is swelling with black and blue color at the catheter insertion site, there may be bleeding inside. Contact the doctor if there is any increase in size. Look at the insertion site for the first few days at home. Signs of infection are: *redness *swelling *yellow, white, green or brown foul smelling drainage. *increased soreness If you think there is an infection, take your temperature. Then call your doctor. The limb on the side where you had your catheterization should look and feel normal in color, sensation, and temperature. If your hand or fingers become cool, pale, blue or change color contact your doctor. If you are having numbness or tingling in your fingers or hand contact your doctor. Follow-up: Future Appointments Date Time Provider Department Center 02/09/2023 10:15 AM LAB, THREE L Lab 3L [facility] 02/09/2023 11:30 AM [facility] CT 4 [facility] RAD CT [facility] Rad 02/09/2023 1:15 PM [facility] DX ROOM 3 Xray [facility] Rad 02/09/2023 1:50 PM NURSE, CARDIOLOGY [facility] CARD 4A [facility] 02/09/2023 2:00 PM Rahat Joe MD [facility] CARDIAC [facility] 10/17/2023 9:30 AM Alley Johnson, [facility]ARA [facility] New Medications to be Picked Up Increase Hydrochlorothiazide to 25mg daily and increase amlodipine to 5mg daily For questions regarding this document or issues relating to this hospitalization on the Medical Service, please contact your inpatient physician through the [facility] Marketing Forecaster . Issues afterhours and on weekends will be handled by the Hospitalist staff on-call. documented in this encounter Medications at Time of Discharge Medication Sig Dispensed Refills Start Date End Date nystatin (Mycostatin) Cream Three times a day 03/21/2014 Flovent Diskus 100 mcg/actuation Disk with Device 2 puffs, Inhale, BID, # 60 EA, 0 Refill(s) 01/16/2023 omeprazole (PriLOSEC) [address] capsule TAKE [...] oxygen-air delivery systems ([employer] [facility]) Supply, See instructions, # 1 EA, 0 Refill(s) 01/16/2023 02/05/2024 hydroCHLOROthiazide (Hydrodiuril) 12.5 mg Tablet Take 2 tablets by mouth daily. 90 tablet 3 01/31/2023 02/13/2023 amLODIPine (Norvasc) 5 mg Tablet Take 1 tablet by mouth daily. 90 tablet 3 01/31/2023 02/13/2023 nystatin (MYCOSTATIN) Cream Apply topically. 03/21/2014 03/08/2023 hydrocortisone 1 % Cream Apply topically. 05/20/2020 03/01/2023 guaiFENesin ER (Mucinex) 600 mg Tablet Extended Release 12hr Take by mouth as needed. 09/11/2020 02/05/2024 UNABLE TO FIND Fortifeye 03/08/2023 calcium-vitamin D 500 mg(1,250mg) -200 unit Tablet Take 1 tablet by mouth daily. 600 mg BID 03/01/2023 acetaminophen (TYLENOL) 325 mg Tablet Take 650 mg by mouth every 4 hours as needed for Pain. 03/01/2023 citalopram (CELEXA) 40 mg Tablet Take 20 mg by mouth daily. 11/23/2023 fluticasone (FLOVENT) 110 mcg/actuation HFA Aerosol Inhaler Inhale 1 puff into the lungs 2 times daily. flovent diskus 11/23/2023 POLYETHYLENE GLYCOL 3350 (MIRALAX ORAL) Take by mouth as needed. 02/05/2024 documented as of this encounter H&P Notes * Carlos De Luna PA - 01/31/2023 12:06 PM EST Patient Name: Lindsey Deleon Patient Age: 72 y.o. Birthdate: 1950 Admit date: 01/31/2023 Attending Physician: Mike Torres MD [facility] Interventional Cardiology Adult Pre-Procedure H&P Update: Cardiac Catheterization Lindsey Deleon [id number] 1950 Chief Complaint: Dyspnea, aortic valve stenosis HPI: Lindsey Deleon is a 72 y.o. female referred for cardiac catheterization by her primary clinical fitness assistant Dr Salvador ([facility]) for evaluation of cardiac hemodynamics and coronary artery anatomy in the setting of progressive symptomatic severe aortic valve stenosis. She was recently seen by Mrs Gibbons Lizbeth SPARROW at [facility] Cards / Valve clinic. Her medical history includes aortic stenosis (severe, symptomatic, trileaflet, calcific), hypertension, hyperlipidemia, COPD, hypothyroid, peripheral vascular disease. She has no prior cardiac cath. She has prior Bilateral common iliac stent 8x38mm BE, prior Right carotid endarterectomy. She is on aspirin daily, full dose. Recent copd exacerbation + pneumonia, now recovering. Preserved LVEF 56%. Echo 12/12/2022: EF 56%; AUREA 1.0; Gr 47/30; Trace AR/TR; Moderate MR There have not been any changes in health status since last seen in clinic. No fevers, no chills, no bleeding. Please see recent outpatient clinic note for comprehensive physical and history documentation. Planned Procedure: Coronary angiogram +/- PCI if indicated Cardiac History: HTN Peripheral vascular disease Other Pertinent Medical History: COPD SOCIAL Hx: Meagna Kuhn with her today. Lives in [facility] Outpatient Medications Marked as Taking for the 01/31/23 encounter (Hospital Encounter) Medication Sig Dispense Refill ??? levothyroxine (Synthroid) 75 mcg Tablet ??? hydroCHLOROthiazide (Hydrodiuril) 12.5 mg Tablet ??? buPROPion SR (Wellbutrin SR) 150 mg tablet sustained-release 12 hr Take by mouth. ??? guaiFENesin ER (Mucinex) 600 mg Tablet Extended Release 12hr Take by mouth as needed. ??? albuterol 90 mcg/actuation HFA Aerosol Inhaler [...] Take 40 mg by mouth daily. ??? cetirizine (ZyrTEC) 10 mg Tablet Take 10 mg by mouth daily. ??? fluticasone (FLOVENT) 110 mcg/actuation HFA Aerosol [...] 2 times daily. ??? FOLIC ACID ORAL PHYSICAL: BP 181/69 (BP Location (NBP): Left arm) Comment: 177/84 RUE Pulse 80 Temp 36.6 ??C (97.9 ??F) (Temporal) Resp 16 Wt 80.5 kg (177 lb 6.4 oz) SpO2 96% BMI 30.93 kg/m?? Gen: Alert, comfortable appearing, pleasant female supine in NAD HEENT: EOMI, MMM. Right anterior neck scar. Neck: Supple, no JVD CV: RRR, systolic Grade II/ murmur at base. , normal S1/S2, PMI not palpated Resp: CTAB, no W/R/R Abd: Soft, NT/ND, +BS Ext: No edema, clubbing, or cyanosis. Warm and well perfused. Neuro: CN grossly intact, moving all extremities Psych: Appropriate affect Pulses: 2+ bilateral radial pulses, right hand snow's test demonstrates adequate reperfusion via ulnar artery alone, Barbeau test to be done in procedure room, 2+ bilateral femoral pulses, no femoral bruit appreciated, 2+ bilateral DP pulses Pre-Sedation Assessment: Previous Sedation/Anesthesia: yes Previous Adverse Reactions: none Alcohol: none Drugs: none Mallampati: II (soft palate, uvula, fauces visible) Mallampati Class: 2 ASA Class: III Sedation Plan: Moderate Sedation, IV conscious sedation with fentanyl and midazolam. Labs reviewed and notable for: Lab Results Component Value Date WBC 18.6 (H) 01/31/2023 HGB 12.2 01/31/2023 HCT 37.3 01/31/2023 MCV 101.1 (H) 01/31/2023 PLATELET 390 (H) 01/31/2023 Lab Results Component Value Date CREATININE 0.90 01/31/2023 BUN 12 01/31/2023 NA 138 01/31/2023 K 4.5 01/31/2023 CL 102 01/31/2023 CO2 27 01/31/2023 Assessment/Plan: 72 y.o. female here for cardiac catheterization for aortic stenosis evaluation. Will proceed with angiography. - proceed as planned - consent signed -no apparent contraindication to DAPT, patient denies upcoming or planned procedures/operations, and denies ongoing or recent bleeding events - FULL code -12-Lead ECG reviewed -Labs Reviewed: I have personally discussed the procedure, including benefits and risks, with the patient who agrees to proceed. The indications for the catheterization, the expected benefits, and the possible riskswere reviewed in detail with the patient. The potential for , heart attack, stroke, kidney failure, bleeding, allergic reaction, vascular complications and infection as well as other potential complications were reviewed. The possibility of stenting and other percutaneous interventions, with associated risk, was reviewed. The potential need for emergent coronary artery bypass surgery was reviewed. Alternatives were discussed and the patient's questions were answered in full. Following thisdiscussion, the patient consented to the procedure and signed a form attesting to this, which is inthe chart RITA Joe Interventional Cardiology 01/31/23 12:06 PM [facility] Pager: [phone] documented in this encounter Miscellaneous Notes * Brief Op Note - Mike Torres MD - 01/31/2023 1:21 PM EST Preliminary Cardiac Catheterization Procedure Note: Patient Name: Lindsey Deleon : [id number] MR#: [id number] Case Date: 01/31/2023 Marketing Forecaster: Surgeon(s) and Role: * Mike Torres MD - Primary * Eddie Cervantes DO - Fellow Preoperative diagnosis: Aortic valve stenosis, etiology of cardiac valve disease unspecified [I35.0] Postoperative diagnosis: * same * Procedure(s) performed: Coronary angio Left heart cath Right heart cath Access: right radial A time-out was conducted prior to the start of the procedure to verify the correct patient and procedure, procedure location, and all relevant critical information. Preliminary findings: AUREA 0.7 sq cm. MG 49mm HG Right dominant: LM: mild LAD: mild LCx: mild RCA: mild The patient tolerated the procedures smoothly and was transferred from the cardiac catheterization lab to the next level of care in stable condition. No stable evident early complications. TAVR work up underway. Full report to follow. Mike Torres MD * Consult Note - Mike Torres MD - 01/31/2023 12:03 PM EST Images from the original note were not included. [facility] [place] [address] CARDIOVASCULAR MEDICINE OUTPATIENT CONSULTATION [facility] Lindsey Mtz [place] Primary Care Provider: Vanita Churchill APRN REFERRING PROVIDER: Vanita Churchill CHIEF COMPLAINT: Aortic stenosis PROBLEM LIST: 1. Aortic stenosis A. Aortic valve area 0.7 cm??, mean gradient 49 mmHg by cardiac catheterization, 01/2023 2. COPD, severe A. Greater than 26-gmad-efmr smoking history, quit 2003 B. On home nebulizers and Inhaled steroids 3. Peripheral vascular disease A. History of carotid stenosis, status post carotid endarterectomy b. Status post left common femoral endarterectomy, bilateral common iliac stents (8 x 40 Xpress) 4. Hypertension, severe 5. Hyperlipidemia 6. Thyroid disease 7. Obstructive sleep apnea 8. RBBB on surface EKG 9. MAC with moderate MR HISTORY OF PRESENT ILLNESS: 72-year-old woman is seen in consultation for aortic valve therapies, referred by Vanita Churchill. Social history: She has been 4 times, and is from her fourth . She has several children, 2 of whom are in the area. 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 She smoked heavily until 2003, when she quit. She reports progressively increasing shortness of breath, and a recent hospitalization for what wascalled a community-acquired pneumonia. It is unclear how much of this was heart failure versus COPDexacerbation. She was found to have severe aortic stenosis, and is now referred for consideration of work-up. She not had syncope. She denies any exertional chest discomfort. PAST MEDICAL HISTORY (Problem List) Patient Active Problem List Diagnosis ??? Carotid stenosis ??? Claudication in peripheral vascular disease 08/15/2017: Left common femoral endarterectomy and patch angioplasty, Bilateral common iliac stents (Xpress stent 8mm x 40mm bilaterally) ??? Obesity (BMI 30-39.9) ??? Atherosclerotic PVD with intermittent claudication ??? Asthma ??? Seasonal allergic rhinitis ??? Hypothyroidism ??? IBS (irritable bowel syndrome) ??? Constipation ??? GERD (gastroesophageal reflux disease) ??? HTN (hypertension) ??? Hypercholesteremia ??? Rheumatoid arthritis(714.0) ??? Depression ??? COPD (chronic obstructive pulmonary disease) ??? Macular degeneration ??? CHEMA (obstructive sleep apnea) SOCIAL HISTORY: Reviewed and updated as appropriate in the medical record. FAMILY HISTORY: Reviewed and updated as appropriate in the medical record. Review of Systems: 01/20/2023 CardioVascular Pre Appointment Symptom Review Angina (chest discomfort) Frequency: Frequent Shortness of breath: Occurs with minor activity during the day Palpitations (skipped beats): Yes Leg swelling: No Dizziness/light headedness: No Loss of consciousness: No Difficulty lying flat (because of breathing): Yes Chills: Yes Fatigue: Yes Fever: No Unintended weight change: No Nosebleeds: Yes Difficulty swallowing: Yes Visual disturbances: No Frequent cough: Yes Wheezing: Yes Snoring: Yes Abdominal pain: No Diarrhea: Yes Blood in bowel movement: No Black, tarry bowel movement: No Nausea/vomiting: No Heat/cold intolerance: Yes Problems urinating: No Joint pains: Yes Muscle pain: Yes Rash: No Weakness/numbness: No Speech problems: No Easy bruising/bleeding: Yes Depression: Yes Anxiety: Yes Poor sleep: Yes Multiple values from one day are sorted in reverse-chronological order As noted in the the HPI; all others negative MEDICATIONS: ALLERGIES: Reviewed and updated as appropriate in the medical record. PHYSICAL EXAMINATION: BP 181/69 (BP Location (NBP): Left arm) Comment: 177/84 RUE Pulse 80 Temp 36.6 ??C (97.9 ??F) (Temporal) Resp 16 Wt 80.5 kg (177 lb 6.4 oz) SpO2 96% BMI 30.93 kg/m?? Exam Details: Pleasant woman, loquacious Lungs with globally diminished breath sounds, expiratory wheezes Extremities show trace edema Regular rate, late peaking systolic ejection murmur Abdomen obese soft nontender 1+ femoral pulses Lab Results Component Value Date WBC 18.6 (H) 01/31/2023 HGB 12.2 01/31/2023 HCT 37.3 01/31/2023 MCV 101.1 (H) 01/31/2023 PLATELET 390 (H) 01/31/2023 Lab Results Component Value Date NA 138 01/31/2023 K 4.5 01/31/2023 CL 102 01/31/2023 CO2 27 01/31/2023 BUN 12 01/31/2023 CREATININE 0.90 01/31/2023 GLUCOSE 98 01/31/2023 CALCIUM 9.6 01/31/2023 ESTGFR 67 01/31/2023 EKG: ASSESSMENT: 1. Severe aortic stenosis (confirmed by invasive cath) 2. Severe COPD, not on home O2 3. Hypertension 4. Hyperlipidemia 5. Peripheral arterial disease with bilateral iliac stents 6. Obstructive sleep apnea 7. RBBB on surface EKG RECOMMENDATIONS: At today's visit, we discussed the natural history of aortic valve stenosis. We reviewed the treatment options including medical therapy, surgical aortic valve replacement, palliation, and transcatheter aortic valve replacement. We discussed the intricacies of each approach, the pros and the cons, and discussed the rationale for considering one versus another. We also reviewed the data suggestingequipoise between a surgical approach and a transcatheter approach in most patients, with differingrisks between the two procedures, We reviewed the recent data suggesting lower risk patients may have improved short and intermediate outcomes with TAVR when compared to surgery, at the cost of higher pacemaker rates and unknown local company intermodal truck driver (>7 year) valve durability. We reviewed that medical therapy has been proven to be inferior to TAVR and surgery in terms of overall survival. Shared decisionmaking was undertaken regarding the above options. After reviewing all of the information, the patient's questions were answered. We reviewed the results of testing from today's visit and previous visits related to aortic valve disease. The next steps will include: She scheduled to meet with cardiac surgery and undergo CT scans later this month. She will be at increased risk for pacemaker height of underlying right bundle branch block, but in light of her underlying lung disease and chronologic age, I think a transcatheter approach would be most reasonable ifkei is a candidate. Her peripheral vascular disease may complicate access, and we will need to consider transfemoral, trans caval, and transapical options. Reviewed with patient and questions answered. Final decision making once all information is available. Thank you for requesting this consultation. documented in this encounter Plan of Treatment Upcoming Encounters Date Type Department Care Team (Late st Contact Info) Description 02/06/2025 2:40 PM EDT Office Visit Cardiology at [address] [phone] Rigoberto Diaz MD [facility] [place] [address] Scheduled Procedures Name Priority Associated Diagnoses Date/Ti me EGD, UPPER GI ENDOSCOPY (WRV U 2.09) Incontinence of feces, unspecified fecal incontinence type Dysphagia, unspecified type COLONOSCOPY, DIAGNOSTIC (WRV U 3.26) Incontinence of feces, unspecified fecal incontinence type Dysphagia, unspecified type documented as of this encounter Procedures Procedure Name Priority Date/Time Associated Diagnosis Comments CARDIAC CATHETERIZATION Routine 02/01/20 1:15 PM EST Aortic valve stenosis, etiology of cardiac valve disease unspecified Cath Plmt Coronary Art W/Inj For Angio W/R Heart Cath Img S&I ([id number]) 01/31/2023 12:23 PM EST Aortic valve stenosis, etiology of cardiac valve disease unspecified EKG 12-LEAD Routine 01/31/2023 11:34 AM EST Aortic valve stenosis, etiology of cardiac valve disease unspecified HEMOGRAM Routine 01/31/2023 9:54 AM EST Aortic valve stenosis, etiology of cardiac valve disease unspecified DIFFERENTIAL, AUTOMATED Routine 02/01/20 9:54 AM EST Aortic valve stenosis, etiology of cardiac valve disease unspecified HC CBC,PLT & AUTO DIFF Routine 9:54 AM EST Aortic valve stenosis, etiology of cardiac valve disease unspecified BASIC METABOLIC PANEL (NON-FASTING) Routine 01/31/2023 9:54 AM EST Aortic valve stenosis, etiology of cardiac valve disease unspecified documented in this encounter Results * CARDIAC CATHETERIZATION (01/31/2023 1:15 PM EST) Anatomical Region Laterality Modality Other Narrative 01/31/2023 1:57 PM EST ?[facility] ? Cardiac Catheterization/Intervention Report ? Patient Name: Deleon, Lindsey D. ? Procedure Date: 01/31/2023 ? A #: [id number] ? Primary Physician: Brian, Mike T ? Case #: [id number] ? File Name: [id number] ? Catheterization Order Number: [id number] ? [facility] ?Machine Adjuster Leader [facility] ? Final Report [place], [place] ? Patient Name: ? Lindsey D. Deleon ?ID#: ?[id number] ? : ?1950 ? Procedure Date: ? January 31, 2023 ?Case #: ? [id number] ? Room: ? 1 ? Case Physician: ? Mike Torres M.D. ?Start: ?12:40 ?Fellow: ? Eddie Cervantes D.O. ?Admission: ??01/31/2023 ? Referring Physician: ??Vanita Churchill M.D. ? Procedures: ?* Coronary Angiography ?* Left Heart Catheterization ?* Right Heart Catheterization ?* Oximetry ?* Arterial Blood Gases ? History ?Lindsey Billie Deleon is a 72 year old woman. She has hypertension and a ?family history of coronary artery disease. The patient's smoking status ?is Former. She has hypercholesterolemia managed with lipid therapy. The ?patient has a history of carotid artery disease and a carotid ?endarterectomy. She has a history of peripheral vascular disease with ?intermittent claudication. The patient also has a history of chronic ?obstructive pulmonary disease. Prior to the initiation of this procedure, ?the patient was designated as ASA Class III. The CSHA clinical frailty ?scale is 4: Vulnerable. ? Diagnostic Tests: ?Prior Coronary Angiography: ? LV ejection fraction within 6 months is 56%. ?Electrocardiography: ? EKG was assessed by ECG. EKG was Abnormal. EKG showed other ? abnormality. ?Medications Prior to Procedure: ? Aspirin. ? Indications for Diagnostic Cath: ?The priority of the diagnostic procedure was Elective. Chest pain symptom ?assessment was: Asymptomatic. One of the indications for cath is ?pre-operative assessment for Cardiac Surgery. Functional capacity is <4 ?METS. Surgical risk is High Risk: Vascular. One of the indications for ?cath is valvular heart disease. The patient has Severe aortic stenosis. ? Technique: ?A 6 SLFr sheath was inserted in the right radial artery utilizing the ?Seldinger technique. A 6 SLFr sheath was inserted in the right median ?antecubital vein utilizing the Seldinger technique. The left coronary ?artery was injected utilizing a 5Fr VINCENT RADIAL catheter. A 5Fr VINCENT ?RADIAL catheter was used to inject the right coronary artery. Right heart ?catheterization was performed utilizing a 5Fr BALLOON WEDGE catheter. ?4,000 units of heparin were administered. A total of 100cc of Omnipaque ?were opened, 60cc of Omnipaque were administered and 40cc of Omnipaque ?were wasted. Radiation: Fluoro time was 7.1 minutes, dose area product ?was 32,200 mGYcm2 and air kerma was 493 mGY. See the case log for ?additional details. ?The patient received the following medications prior to and during the ?procedure: ? Unfractionated Heparin. ? Hemodynamics: ?Right Heart Pressures ? Resting: ? Syst Diast ? EDP ?a ?v ? m ?RA ? 12 ? 6 ? 7 ?RV 65 ?11 ?PA 65 ?27 ?50 ?PCW ?34 ?42 ?27 ? Hemodynamic Profile: ?Profile 1 ?CO ? 5.70 ?CI ? 3.08 ?TSR ? 1,895 ?SVR ? 1,796 ?TPR ?702 ?PVR ?323 ?Technique ?Estimated [place] ?Left Heart Pressures ? Resting: ? Syst Diast ? EDP ?a ?v ? m ?Ao 202 ?? 85 ?135 ?LV 240 ? 25 ? Stenotic Valve Data: ?Aortic Valve ?Mean Gradient - 49 ?Area - 0.71 sq. cm. ? Oximetry: ?Location ? %Sat ?Location ?%Sat ?Main Pulmonary Artery ??62.0 ?Peripheral Arterial ? 88.0 ? Coronary Angiography: ?Dominance: Right ?Left Main ? There was mild diffuse (<=25% stenosis) disease of the entire vessel ? segment of the left main artery. ?Left Anterior Descending ? There was mild diffuse (<=25% stenosis) disease of the entire vessel ? segment of the left anterior descending artery (LAD). ?Left Circumflex ? There was mild diffuse (<=25% stenosis) disease of the entire vessel ? segment of the left circumflex artery (LCX). ?Right Coronary Artery ? There was mild diffuse (<=25% stenosis) disease of the entire vessel ? segment of the right coronary artery (RCA). ? Vascular Access: ?Vascular Access Management: ? Manual Compression of the right median antecubital vein access site ? was performed. ? Mechanical Compression of the right radial artery access site was ? performed. ? Point of Care Testing: ?ABG: ? Arterial Blood gasses were performed using the I-Stat analyzer at ? 13:35: pH: 7.45, pCO2: 36.5, pO2: 61.0, sPO2: 92%, HCO3: 25 on FIO2: ? room air. ?I-Stat: ? I-Stat was performed using the I-Stat analyzer at 13:35: Na+: 139, ? K+: 3.8, iCa++: 1.24, Hct: 36%, Hb: 12.2. ? Conclusions: ?* Nonobstructive coronary artery disease ?* Severe aortic stenosis ?* Severe pulmonary hypertension ?* Elevated pulmonary capillary wedge pressure ?* Elevated left ventricular end diastolic pressure ? Complications/Events: ?The patient had no complications during these procedures. ? Post Procedure Fluid Recommendations: ?IV fluid at 161 mL/hr for 4 hours for a total of 644 mL. These ?recommendations are made at the time of the procedure. Patient and ?provider preferences or a changing clinical situation may require ?modification of this regimen. ?The attending physician was present for the entire procedure. ?Dr. Mike Torres M.D. was present during the moderate sedation ?intraservice time as documented by the sedation nurse. ??Case time = 00:23. ?Dr. Mike Torres M.D. performed the coronary angiography, right heart ?catheterization, oximetry, ABG and left heart catheterization. ? Mike Torres M.D. ? Electronically Signed by: Mike Torres M.D. ? Report Finalized: 01/31/2023 ??13:51 ? Mike Torres MD CARDIAC CATH ORDERAB LES * EKG 12 Lead (01/31/2023 11:34 AM EST) Ventricular rate 83 BPM MUSE SYSTEM Atrial Rate 83 BPM MUSE SYSTEM P-R Interval 150 ms MUSE SYSTEM QRS Duration 118 ms MUSE SYSTEM Q-T Interval 410 ms MUSE SYSTEM QTC Calculated (Bezet) 481 ms MUSE SYSTEM Calculated P [place] 69 degrees MUSE SYSTEM Calculated R [place] -30 degrees MUSE SYSTEM Calculated T [place] 28 degrees MUSE SYSTEM INTERPRETATION Normal sinus rhythm Left axis deviation Right bundle branch block Abnormal ECG When compared with ECG of 21-MAY-2019 14:39, No significant change was found Confirmed by MD Macy, [facility] ([id number]) on 01/31/2023 1:32:49 PM MUSE SYSTEM 01/31/2023 11:3 4 AM EST 01/31/2023 1:32 PM EST Edwige Nieves APRN ECG ORDERABLES MUSE SYSTEM * (ABNORMAL) Differential, Automated (01/31/2023 9:54 AM EST) Neutrophils % 69.8 % [facility] Neutr Abs (ANC) 12.99(H) 1.70 - 6.10 x10(3)/mc L [facility] Lymphocytes % 18.1 % [facility] Lymphocytes Abs 3.4(H) 0.9 - 3.2 x10(3)/[facility] Monocytes % 6.5 % [facility] Monocyte Abs 1.2(H) 0.3 - 0.9 x10(3)/[facility] Eosinophils % 2.6 % [facility] Eosinophils Abs 0.5(H) 0.0 - 0.4 x10(3)/[facility] Basophils % 0.5 % [facility] Basophils Abs 0.1 0.0 - 0.1 x10(3)/[facility] Immature Gran % 2.50 % [facility] Comment: Immature granulocytes(IG's)percentage and absolute count will include metamyelocytes, myelocytes, and promyelocytes. Blood smears from CBCs yielding IG's will be scanned manually for concordance. If this scan disagrees with the automated IG or if promyelocytes are noted, a manual differential will be performed. [place] Gran Abs 0.47(H) 0.00 - 0.04 x10(3)/[facility] Blood 01/31/2023 9:54 AM EST 01/31/2023 9:59 AM EST Narrative Resulting Agency Comment Spec In Lab Edwige Nieves APRN HEMATOLOGY ORDERABLE S [facility] [place] [address] * (ABNORMAL) Hemogram (01/31/2023 9:54 AM EST) WBC 18.6(H) 4.0 - 9.5 x10(3)/[facility] RBC 3.69(L) 4.00 - 5.21 x10(6)/[facility] Hemoglobin 12.2 11.7 - 15.5 g/dL [facility] Hematocrit 37.3 35.7 - 45.8 % [facility] MCV 101.1(H) 82.6 - 94.4 fL [facility] MCH 33.1(H) 27.1 - 32.0 pg [facility] MCHC 32.7 31.7 - 35.0 g/dL [facility] Platelets 390(H) 145 - 357 x10(3)/[facility] RDWSD 48.7(H) 37.0 - 46.0 [facility] RDWCV 13.2 11.5 - 14.1 % [facility] MPV 8.9 7.6 - 12.9 [facility] nRBC % Auto 0.0 % [facility] nRBC Abs Auto 0.000 0.000 - 0.000 x10(3)/[facility] Blood 01/31/2023 9:54 AM EST 01/31/2023 9:59 AM EST Narrative Resulting Agency Comment Spec In Lab Edwige Nieves APRN HEMATOLOGY ORDERABLE S [facility] [place] [address] * Basic Metabolic Panel (non-fasting) (01/31/2023 9:54 AM EST) Glucose Lvl 98 65 - 199 mg/dL [facility] Comment:Diabetes: >=200 mg/d L plus symptoms BUN 12 8 - 18 mg/dL [facility] Creatinine 0.90 0.70 - 1.20 mg/dL [facility] Sodium 138 135 - 145 mmol/L [facility] Potassium 4.5 3.5 - 5.0 mmol/L [facility] Comment: Please note: ??Patients with WBC >100,000 may have falsely elevated Potassium levels. ??For accurate Potassium quantification in these patients send serum separator tube (gold top) for subsequent determinations. ??Contact the Clinical Chemistry Laboratory if there are any questions. Chloride 102 98 - 107 mmol/L [facility] CO2 27 22 - 31 mmol/L [facility] Anion Gap 9 5 - 15 mmol/L [facility] Calcium 9.6 8.5 - 10.5 mg/dL [facility] Estimated GFR 67 >=60 mL/min/1. 73 m?? [facility] Comment: This patient's estimated GFR [...] In Lab Edwige Nieves APRN CHEMISTRY ORDERABLES [facility] [place] [address] documented in this encounter Visit Diagnoses Diagnosis Aortic valve stenosis, etiology of cardiac valve disease unspecified Aortic valve stenosis, etiology of cardiac valve disease unspecified documented in this encounter Administered Medications Inactive Administered Medications - up to 3 most recent administrations Medication Order MAR Action Action Date Dose Rate Site amLODIPine (Norvasc) tablet 5 mg 5 mg, Oral, DAILY, 1 dose, First dose on Mon01/31/23 at 1415, STAT Given 01/31/2023 2:10 PM EST 5 mg fentaNYL (pf) (50 mcg/mL) multi-dose injection ONCE PRN, Starting on Mon01/31/23 at 1238, Until Mon01/31/23 at 1316, Intra-Operative (Intra-Procedure), Routine Given 01/31/2023 12:38 PM EST 12.5 mcg heparin (porcine) (1,000 units/mL) injection ONCE PRN, Starting on Mon01/31/23 at 1247, Until Mon01/31/23 at 1316, Intra-Operative (Intra-Procedure), Routine Given 01/31/2023 12:47 PM EST 4,000 Units iohexoL (Omnipaque) (350 mg/mL) solution ONCE PRN, Starting on Mon01/31/23 at 1313, Until Mon01/31/23 at 1316, Intra-Operative (Intra-Procedure), Routine Given 01/31/2023 1:13 PM EST 60 mLs labetaloL (Normodyne) (5 mg/mL) injection solution 20 mg 20 mg, Intravenous, ONCE, 1 dose, On Mon01/31/23 at 1415, Routine Given 01/31/2023 2:15 PM EST 10 mg labetaloL 5 mg/mL injection 1 dose, Starting on Mon01/31/23 at 1341, Until Mon01/31/23 at 1415, KEYON RM: cabinet override midazolam (pf) (Versed) (1 mg/mL) multi-dose injection ONCE PRN, Starting on Mon01/31/23 at 1238, Until Mon01/31/23 at 1316, Intra-Operative (Intra-Procedure), Routine Given 01/31/2023 12:38 PM EST 0.5 mg sodium chloride 0.9% infusion 75 mL/hr, Intravenous, CONTINUOUS, Starting on Mon01/31/23 at 1130, Until Mon01/31/23 at 1639, Cath (Day of Procedure) New Bag 01/31/2023 11:33 AM EST 75 mL/hr 75 mL/hr verapamiL (Isoptin) (2.5 mg/mL) injection ONCE PRN, Starting on Mon01/31/23 at 1236, Until Mon01/31/23 at 1316, Administer over 2 Minutes, Intra-Operative (Intra-Procedure) Given 01/31/2023 12:46 PM EST 2.5 mg documented in this encounter Active and Recently Administered Medications Times are shown in EST. Scheduled Medication Order 01/29/2023 01/30/2023 01/31/2023 amLODIPine (Norvasc) tablet 5 mg (COMPLETED) 5 mg, Oral, DAILY, 1 dose, First dose on e 01/31/23 at 1415, STAT 1410 (Given - Provid er: Jannette Loza RN) labetaloL (Normodyne) (5 mg/mL) injection solution 20 mg (COMPLETED) 20 mg, Intravenous, ONCE, 1 dose, On e 01/31/23 at 1415, Routine 1415 (Given - Provid er: [place]on Rm RN - Comment: Dr. Torres ordered to give 10mg to start. Pt. BP droped from 210 to 170. 10mg held) Continuous Medication Order 01/29/2023 01/30/2023 01/31/2023 sodium chloride 0.9% infusion (CANCELED) 75 mL/hr, Intravenous, CONTINUOUS, Starting on e 01/31/23 at 1130, Until Tu01/31/23 at 1639, Cath (Day of Procedure) 1133 (New Bag - Prov ider: Vincent Gayle RN) sodium chloride 0.9% infusion 1 mL/hr, Intravenous, CONTINUOUS, Starting on e 01/31/23 at 1430, Until e 01/31/23 at 1529, Cath (Recovery-Hospital Unit) 1430 (Due) PRN Medication Order 01/29/2023 01/30/2023 01/31/2023 fentaNYL (pf) (50 mcg/mL) multi-dose injection (CANCELED) ONCE PRN, Starting on 01/31/23 at 1238, Until 01/31/23 at 1316, Intra-Operative (Intra-Procedure), Routine 1238 (Given - Provid er: Jannette Loza RN) heparin (porcine) (1,000 units/mL) injection (CANCELED) ONCE PRN, Starting on 01/31/23 at 1247, Until 01/31/23 at 1316, Intra-Operative (Intra-Procedure), Routine 1247 (Given - Provid er: Jannette Loza RN) iohexoL (Omnipaque) (350 mg/mL) solution (CANCELED) ONCE PRN, Starting on 01/31/23 at 1313, Until 01/31/23 at 1316, Intra-Operative (Intra-Procedure), Routine 1313 (Given - Provid er: Mike Torres MD) midazolam (pf) (Versed) (1 mg/mL) multi-dose injection (CANCELED) ONCE PRN, Starting on e 01/31/23 at 1238, Until Tu01/31/23 at 1316, Intra-Operative (Intra-Procedure), Routine 1238 (Given - Provid er: Jannette Loza RN) verapamiL (Isoptin) (2.5 mg/mL) injection (CANCELED) ONCE PRN, Starting on Mon01/31/23 at 1236, Until 01/31/23 at 1316, Administer over 2 Minutes, Intra-Operative (Intra-Procedure) 1246 (Given - Provid er: Mike Torres MD) documented in this encounter Care Teams Local Coordinator Relationship Specialty Start Date End Date Vanita Churchill APRN PCP - General Family Medicine 02/27/19 documented as of this encounter
--- OUTSIDE RECORDS SUMMARY | 2024-06-14 01:47 | XMS_ITS | Encounter Summary ---
[place] [address] Care Team Providers Care Merchant Patroller Name Role Phone Vanita Churchill Omar SPARROW Primary Care Provider [phone] Encounter Details Date Type Department Care Team (Late st Contact Info) Description 07/08/2021 Telephone [place] [phone] Yue Guillory Social History Tobacco Use Types Packs/Day Years [...] encounter Miscellaneous Notes * Telephone Encounter - Yue Guillory - 07/08/2021 8:44 AM EDT I left a message for this patient to see if we can move her visit with Dr. Harmon at 2:00p on 07-12 to Zhanna Car 3:00p on the same day. This patient also has 90mins of testing I was going to leave as is. If/when she calls I???ll be happy to talk with her documented in this encounter Plan of Treatment Upcoming Encounters Date Type Department Care Team (Late st Contact Info) Description 02/06/2025 2:40 PM EDT Office Visit Cardiology at [address] [place] [address] Rigoberto Diaz MD [facility] [place] [address] Scheduled Procedures Name Priority Associated Diagnoses Date/Ti me EGD, UPPER GI ENDOSCOPY (WRV U 2.09) Incontinence of feces, unspecified fecal incontinence type Dysphagia, unspecified type COLONOSCOPY, DIAGNOSTIC (WRV U 3.26) Incontinence of feces, unspecified fecal incontinence type Dysphagia, unspecified type documented as of this encounter Visit Diagnoses Not on filedocumented in this encounter Care Teams Merchant Patroller Relationship Specialty Start Date End Date Vanita hCurchill APRN PCP - General Family Medicine 02/27/19 documented as of this encounter
--- OUTSIDE RECORDS SUMMARY | 2024-06-14 01:47 | XMS_ITS | Encounter Summary ---
Author Organization [facility] [place] [address] Care Team Providers Care Extracting Machine Operator Name Role Phone Vanita Churchill AGRONOMY LOCATION MANAGER Primary Care Provider [phone] Encounter Details Date Type Department Care Team (Latest Contact Info) Description 01/20/2023 Travel Social History Tobacco Use Types Packs/Day [...] 2:40 PM EDT Office Visit Cardiology at [address] [place] [address] Rigoberto Diaz MD [facility] [place] [id number] Scheduled Procedures Name Priority Associated Diagnoses Date/Ti me EGD, UPPER GI ENDOSCOPY (WRV U 2.09) Incontinence of feces, unspecified fecal incontinence type Dysphagia, unspecified type COLONOSCOPY, DIAGNOSTIC (WRV U 3.26) Incontinence of feces, unspecified fecal incontinence type Dysphagia, unspecified type documented as of this encounter Visit Diagnoses Not on filedocumented in this encounter Care Teams Extracting Machine Operator Relationship Specialty Start Date End Date Vanita Churchill, KYARA PCP - General Family Medicine 02/27/19 documented as of this encounter
--- OUTSIDE RECORDS SUMMARY | 2024-06-14 01:47 | XMS_ITS | Encounter Summary ---
[place] [address] Care Team Providers Care Voice Network Engineer Name Role Phone KwesiVanita mix Omar SPARROW Primary Care Provider [phone] Reason for Visit * Auth/Cert (Routine) Specialty Diagnoses / Procedures Referred By Emy castillo Referred To Contact Diagnoses Nonrheumatic aortic (valve) stenosis Aortic valve stenosis, etiology of cardiac valve disease unspecified [I35.0] Procedures PRG CATH PLMT CORONARY ART W/INJ FOR ANGIO W/R HEART CATH IMG S&I PRO MOD SED SAME PHYS/QHP INITIAL 15 MINS 5/> YRS CARDIAC CATHETERIZATION CORONARY ANGIOGRAPHY; W C Mike Torres MD [facility] [place] [address] [facility] Referral ID Status Reason Start Date Expiration Date Visits Re quested Visits Authorized [id number] 1 1 Encounter Details Date Type Department Care Team (Latest Contact Info) Description 01/31/2023 9:38 AM EST - 01/31/2023 4:40 PM EST Hospital [place] [id number] Mike Torres MD [facility] [place] [address] Aortic valve stenosis, etiology of cardiac valve disease unspecified Discharge Disposition: Home Social History Tobacco Use [...] Sign Reading Time Taken Comments Blood Pressure 136/83 01/31/2023 4:15 PM EST Pulse 80 01/31/2023 4:15 PM EST Temperature 36.9 ??C (98.4 ??F) 01/31/2023 4:07 PM ES T Respiratory Rate 18 01/31/2023 4:15 PM EST Oxygen Saturation 94% 01/31/2023 4:15 PM EST Inhaled Oxygen Concentration - - Weight 80.5 kg (177 lb 6.4 oz) 01/31/2023 11:13 AM EST Height - - Body [...] Lab 3L MAJOR HUNTER 02/09/2023 11:[address] [facility] [address] [facility] [address] [facility] 02/09/2023 1:15 PM [facility] DX ROOM 3 Xray [facility] 02/09/2023 1:50 PM NURSE, CARDIOLOGY [facility] CARD 4A [facility] 02/09/2023 2:00 PM Rahat Joe MD [facility] CARDIAC [facility] 10/17/2023 9:30 AM Alley Johnson APRN [facility] New Medications to be Picked Up Increase Hydrochlorothiazide to 25mg daily and increase amlodipine to 5mg daily For questions regarding this document or issues relating to this hospitalization on the Medical Service, please contact your inpatient physician through the [facility] Shirt Cleaner . Issues afterhours and on weekends will [...] date: 01/31/2023 Attending Physician: Mike Torres MD [facility] Interventional Cardiology Adult Pre-Procedure H&P Update: Cardiac Catheterization Lindsey Deleon [id number] Chief Complaint: Dyspnea, aortic valve stenosis HPI: Lindsey Deleon is a 72 y.o. female referred for cardiac catheterization by her primary clinical toe former stitchdowns Dr Salvador ([facility]) for evaluation of cardiac hemodynamics and coronary artery anatomy in the setting of progressive symptomatic severe aortic valve stenosis. She was recently seen by Mrs Edwige Nieves KYARA at [facility] Cards / Valve clinic. Her medical history [...] Other Pertinent Medical History: COPD SOCIAL Hx: Meagan Kuhn with her today. Lives in [facility] Outpatient Medications Marked as Taking for [...] RITA Joe Interventional Cardiology 01/31/23 12:06 PM [facility] Pager: [phone] documented in this encounter Miscellaneous Notes * Brief Op Note - Mike Torres MD - 01/31/2023 1:21 PM EST Preliminary Cardiac Catheterization Procedure Note: Patient Name: Lindsey Deleon : [id number] MR#: [id number] Case Date: 01/31/2023 Shirt Cleaner: Surgeon(s) and Role: * Mike Torres MD [...] from the original note were not included. [facility] [place] [address] CARDIOVASCULAR MEDICINE OUTPATIENT CONSULTATION [facility] [place] Primary Care Provider: Vanita Churchill APRN REFERRING PROVIDER: Vanita Churchill CHIEF COMPLAINT: Aortic stenosis PROBLEM LIST: 1. Aortic stenosis A. Aortic valve area 0.7 cm??, mean gradient 49 mmHg by cardiac catheterization, 01/2023 2. COPD, severe A. Greater than 81-mmbj-hdac smoking history, quit 2003 B. 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 She smoked heavily until 2003, when she [...] cost of higher pacemaker rates and unknown skilled nursing (>7 year) valve durability. We reviewed that [...] PM EDT Office Visit Cardiology at [address] [address] Rigoberto Diaz MD [place] [address] Scheduled Procedures Name Priority Associated Diagnoses Date/Ti [...] For Angio W/R Heart Cath Img S&I (20225) 01/31/2023 12:23 PM EST Aortic valve stenosis, [...] Modality Other Narrative 01/31/2023 1:57 PM EST ?[facility] ? Cardiac Catheterization/Intervention Report ? Patient Name: Deleon, Lindsey D. ? Procedure Date: 01/31/2023 ? A #: [id number] ? Primary Physician: Brian, Mike T ? Case #: [id number] ? File Name: [id number] ? Catheterization Order Number: [id number] ? [facility] ? Final Report [place], [place] ? Patient Name: ? Lindsey D. Deleon ?ID#: ?[id number] ? : ?1950 ? Procedure Date: ? January 31, 2023 ?Case #: ? [id number] ? Room: ? 1 ? Case Physician: ? Mike Torres M.D. ?Start: ?12:40 ?Fellow: ? Eddie Cervantes D.O. ?Admission: ??01/31/2023 ? Referring Physician: ??Vanita Churchill M.D. ? Procedures: ?* Coronary Angiography ?* Left Heart Catheterization ?* Right Heart Catheterization ?* Oximetry ?* Arterial Blood Gases ? History ?Lindsey Deleon is a 72 year old woman. [...] was designated as ASA Class III. The HA clinical frailty ?scale is 4: Vulnerable. ? [...] (Bezet) 481 ms MUSE SYSTEM Calculated P [place] 69 degrees MUSE SYSTEM Calculated R [place] -30 degrees MUSE SYSTEM Calculated T [place] 28 degrees MUSE SYSTEM INTERPRETATION Normal sinus rhythm Left axis deviation Right bundle branch block Abnormal ECG When compared with ECG of 21-MAY-2019 14:39, No significant change was found Confirmed by MD Macy, [facility] ([id number]) on 01/31/2023 1:32:49 PM MUSE SYSTEM 01/31/2023 11:3 4 AM EST 01/31/2023 1:32 PM EST Edwige Nieves APRN ECG ORDERABLES MUSE SYSTEM * (ABNORMAL) Differential, Automated (01/31/2023 9:54 AM EST) Neutrophils % 69.8 % [facility] Neutr Abs (ANC) 12.99(H) 1.70 - 6.10 x10(3)/mc Elisa [facility] Lymphocytes % 18.1 % [facility] Lymphocytes Abs 3.4(H) 0.9 - 3.2 x10(3)/[facility] Monocytes % 6.5 % [facility] Monocyte Abs 1.2(H) 0.3 - 0.9 x10(3)/[facility] Eosinophils % 2.6 % [facility] Eosinophils Abs 0.5(H) 0.0 - 0.4 x10(3)/[facility] Basophils % 0.5 % [facility] Basophils Abs 0.1 0.0 - 0.1 x10(3)/[facility] Immature Gran % 2.50 % [facility] Comment: Immature granulocytes(IG's)percentage and absolute count will include metamyelocytes, myelocytes, and promyelocytes. Blood smears from CBCs yielding IG's will be scanned manually for concordance. If this scan disagrees with the automated IG or if promyelocytes are noted, a manual differential will be performed. [place] Gran Abs 0.47(H) 0.00 - 0.04 x10(3)/[facility] Blood 01/31/2023 9:54 AM EST 01/31/2023 9:59 AM EST Narrative Resulting Agency Comment Spec In Lab Edwige Nieves APRN HEMATOLOGY ORDERABLE S [facility] [place] [address] * (ABNORMAL) Hemogram (01/31/2023 9:54 AM EST) WBC 18.6(H) 4.0 - 9.5 x10(3)/[facility] RBC 3.69(L) 4.00 - 5.21 x10(6)/[facility] Hemoglobin 12.2 11.7 - 15.5 g/dL [facility] Hematocrit 37.3 35.7 - 45.8 % [facility] MCV 101.1(H) 82.6 - 94.4 fL [facility] MCH 33.1(H) 27.1 - 32.0 pg [facility] MCHC 32.7 31.7 - 35.0 g/dL [facility] Platelets 390(H) 145 - 357 x10(3)/[facility] RDWSD 48.7(H) 37.0 - 46.0 [facility] RDWCV 13.2 11.5 - 14.1 % [facility] MPV 8.9 7.6 - 12.9 [facility] nRBC % Auto 0.0 % [facility] nRBC Abs Auto 0.000 0.000 - 0.000 x10(3)/[facility] Blood 01/31/2023 9:54 AM EST 01/31/2023 9:59 AM EST Narrative Resulting Agency Comment Spec In Lab Edwige Nieves APRN HEMATOLOGY ORDERABLE S [facility] [place] [address] * Basic Metabolic Panel (non-fasting) (01/31/2023 9:54 AM EST) Glucose Lvl 98 65 - 199 mg/dL [facility] Comment:Diabetes: >=200 mg/d L plus symptoms BUN 12 8 - 18 mg/dL [facility] Creatinine 0.90 0.70 - 1.20 mg/dL [facility] Sodium 138 135 - 145 mmol/L [facility] Potassium 4.5 3.5 - 5.0 mmol/L [facility] Comment: Please note: ??Patients with WBC >100,000 may have falsely elevated Potassium levels. ??For accurate Potassium quantification in these patients send serum separator tube (gold top) for subsequent determinations. ??Contact the Clinical Chemistry Laboratory if there are any questions. Chloride 102 98 - 107 mmol/L [facility] CO2 27 22 - 31 mmol/L [facility] Anion Gap 9 5 - 15 mmol/L [facility] Calcium 9.6 8.5 - 10.5 mg/dL [facility] Estimated GFR 67 >=60 mL/min/1. 73 m?? [facility] [...] In Lab Edwige Nieves APRN CHEMISTRY ORDERABLES [facility] [place] [address] documented in this encounter Visit Diagnoses Diagnosis [...] Given 01/31/2023 2:10 PM EST 5 mg labetaloL (Normodyne) (5 mg/mL) injection solution 20 mg 20 mg, Intravenous, ONCE, 1 dose, On Mon01/31/23 at 1415, Routine Given 01/31/2023 2:15 PM EST 10 mg labetaloL 5 mg/mL injection 1 dose, Starting on Mon01/31/23 at 1341, Until Mon01/31/23 at 1415, JAG, KEYON Maurer.: cabinet override sodium chloride 0.9% infusion 75 mL/hr, Intravenous, CONTINUOUS, Starting on Mon01/31/23 at 1130, Until Mon01/31/23 at 1639, Cath (Day of Procedure) New Bag 01/31/2023 11:33 AM EST 75 mL/hr 75 mL/hr documented in this encounter Active and Recently Administered Medications Times are shown in EST. Scheduled Medication Order 01/29/2023 01/30/2023 01/31/2023 amLODIPine (Norvasc) tablet 5 mg (COMPLETED) 5 mg, Oral, DAILY, 1 dose, First dose on Mon01/31/23 at 1415, STAT 1410 (Given - Provid er: Jannette Loza RN) labetaloL (Normodyne) (5 mg/mL) injection solution 20 mg (COMPLETED) 20 mg, Intravenous, ONCE, 1 dose, On Mon01/31/23 at 1415, Routine 1415 (Given - Provid er: Keyon Ellis, RANGEL - Comment: Dr. Torres ordered to give 10mg to start. Pt. BP droped from 210 to 170. 10mg held) Continuous Medication Order 01/29/2023 01/30/2023 01/31/2023 sodium chloride 0.9% infusion (CANCELED) 75 mL/hr, Intravenous, CONTINUOUS, Starting on Mon01/31/23 at 1130, Until Mon01/31/23 at 1639, Cath (Day of Procedure) 1133 (New Bag - Prov ider: Vincent Gayle RN) sodium chloride 0.9% infusion 1 mL/hr, Intravenous, CONTINUOUS, Starting on Mon01/31/23 at 1430, Until Mon01/31/23 at 1529, Cath (Recovery-Hospital Unit) 1430 (Due) PRN Medication Order 01/29/2023 01/30/2023 01/31/2023 fentaNYL (pf) (50 mcg/mL) multi-dose injection (CANCELED) ONCE PRN, Starting on Mon01/31/23 at 1238, Until Mon01/31/23 at 1316, Intra-Operative (Intra-Procedure), Routine 1238 (Given [...] mg/mL) injection (CANCELED) ONCE PRN, Starting on 01/31/23 at 1236, Until 01/31/23 at 1316, Administer over 2 Minutes, Intra-Operative (Intra-Procedure) 1246 (Given - Provid er: Mike Torres MD) documented in this encounter Care Teams Voice Network Engineer Relationship Specialty Start Date End Date Vanita Churchill APRN PCP - General Family Medicine 02/27/19 documented as of this encounter
--- OUTSIDE RECORDS SUMMARY | 2024-06-14 01:47 | XMS_ITS | Encounter Summary ---
[place] [address] Care Team Providers Care Poultry Vaccinator Name Role Phone Kerline Vanita Nelson APRN Primary Care Provider [phone] Encounter Details Date Type Department Care Team (Late st Contact Info) Description 10/11/2022 11:30 AM EST Office Visit Sleep Center at [facility] [address] [place] [address] Alley Johnson APRN [facility] [place] [address] CHEMA treated with BiPAP (Primary Dx); Difficulty with CPAP full face mask use; Difficulty using bilevel positive airway pressure (BPAP) machine Social History Tobacco Use Types Packs/Day Years [...] Sign Reading Time Taken Comments Blood Pressure 151/80 10/11/2022 11:23 AM EST Pulse 84 10/11/2022 11:23 AM EST Temperature - - Respiratory Rate - - Oxygen Saturation 97% 10/11/2022 11:23 AM EST Inhaled Oxygen Concentration - - Weight 80.9 kg (178 lb 6.4 oz) 10/11/2022 11:23 AM EST Height 163.8 cm (5' 4.5) 10/11/2022 11:23 AM ES T Body Mass Index 30.15 10/11/2022 11:23 AM EST documented in this encounter Patient Instructions * Patient Instructions* Alley Johnson, KYARA - 10/11/2022 11:30 AM EST Recommendations: --Continue BPAP cw --Don't use SoClean or another CPAP road cleaner with any BPAP machine --Order to [facility] for in-person mask fitting; the F30 may be too big for her, top dentures removed at night, no bottom teeth; and please evaluate the replacement BPAP machine; very high leak Follow up with [facility] in two weeks if not heard from them --After a mask fitting, if needed, consider a cloth mask liner (see below) --If not able to use BPAP: Conservative measures may help reduce the severity [...] cessation. Some of these may not apply. BPAP tips: --Adjust mask straps nightly while laying down with machine on, just to snug, for best fit. Do not overtighten as it can cause discomfort and greater mask leak --Consider the PadACheek or another cloth mask liner for comfort or bothersome mask leak: for information, call [phone] or go to www.[employer] --If dry mouth: 1) adjust humidity up [...] consider over the counter nasal steroid spray --Handouts on helpful PAP tips, proper mask fit, parts cleaning/maintenance, supply replacement intervals, sent to patient through [facility] portal previously--review as needed --Driving safety tips for everyone: do not drive if drowsy; if drowsy while driving, loop puller to nap or rest --Follow-up: 1 year with [place]; contact us or make an appointment sooner, as needed documented in this encounter Progress Notes * Alley Johnson APRN - 10/11/2022 11:30 AM EST Sleep Medicine Follow-Up Note CC/HPI: Ms. Lindsey Carrasco is a 71 y.o. female seen for annual follow-up of obstructivesleep apnea on BPAP therapy. Her machine was recalled. She now has a replacement device. Her Davida machine is too loud. She wants a replacement. She has a new mask. The F30 HPI continues below. Sleep Study History: 02/07/2008 at [facility], from Dr. Robbins's note: AHI: 28/hr, supine index was 29/hour Wt: 192.4lbs 03/08/2008 CPAP Titration, Wt: 194.6lbs, from Dr. Robbins's note: Ms. Mehat has moderate sleep apnea. She also has [...] pressure tested. Recommendations: 1. Trial of BIPAP 25/17. Consider chinstrap if felt to be needed. 2. Follow up with her PCP as to the SVT noted of unclear significance. 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 to radiographer technologist, thinks it was medication; cardiology found lack of pulsein hip and feet, stent placed; ECHO from July 18, 2017 shows LVEF 65%) Treatment: BIPAP DreamStation Auto BPAP, setup 01/30/19 now Previously BPAP Auto 760P, setup 12/30/13 Has SoClean2 machine Pressure: 25/17, previously 25/21cw (should be 25/17cw)--excess gas, worse IBS, unsure if it was r/t IBS or gluten diet Tolerance: fine Interface: F30 small No longer using back to [place], small; Didn't like [employer] FFM, small frame, small cushion; demo provided to her in 2019 visit Didn't like the Airtouch F20, small as irritating nasal bridge,previous mask was Mirage Quattro butit left a cortney on her nose Chin strap: No, chin strap was tried in the past but she opened her mouth anyway HCC: [facility] to get machine (that ofc is appt only) but [place]; getting supplies Snoring on BPAP: No unless high mask leak Nocturnal gasping on BPAP: no Dry Mouth: Sometimes, adjusts humidity; uses Biotene rinse, hasn't tried room humidifier--didn't use this Winter, didn't need Mouth Breathing: Yes, has FFM now Patient wears top dentures to sleep Sleep Pattern: Bedtime: 10:30p on TW and 8a other nights, watches TV until 9 pm, then affixes mask, is asleep promptly most nights Wake time: 5a not to alarm Awakenings: Takes Tylenol at night before sleep onset, as she may wake with joint and back pain--will get up and then use IcyHot; WASO quickly Daytime Symptoms: Patient-reported last 4 scores: [facility] 12/08/2017 08/02/2018 04/05/2019 03/22/2021 [facility] 4 (Low Risk) 3 (Low Risk) 3 (Low Risk) 4 (Low Risk) Insomnia Severity Index Incomplete 4 (No clinically significant insomnia) 4 (No clinically significant insomnia) Incomplete VR12 - Physical Component Summary - - - - VR12 - Mental Component Summary - - - - Sleepiness or Drowsiness when driving: drives, no drowsiness ROS: Constitutional: Lost 36lbs since last sleep study ENT: Nasal Obstruction: On Zyrtec over the summer for seasonal allergies, uses Flonase PRN--educated on usage, hasn't restarted yet Top dentures removed at night, no teeth on bottom, getting peg for bottom dentures--no bone there Resp: asthma/COPD; no more nebulizer, uses Flovent BID, and inhaler PRN; Social History: Normally, 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 Anemia [...] sleep apnea ??? Transfusion history years ago Patient Active Problem List Diagnosis Code ??? [...] vascular disease I73.9 ??? Carotid stenosis I65.29 Outpatient Medications Marked as Taking for the 10/11/22 encounter (Office Visit) with Dariela Johnson APRN Medication Sig Dispense Refill ??? levothyroxine (Synthroid) 75 mcg Tablet ??? hydroCHLOROthiazide (Hydrodiuril) 12.5 mg Tablet ??? nystatin (MYCOSTATIN) Powder Apply topically 4 times daily. ??? buPROPion SR (Wellbutrin SR) 150 mg tablet sustained-release 12 hr Take by mouth. ??? nystatin (MYCOSTATIN) Cream Apply topically. ??? hydrocortisone 1 % Cream Apply topically. ??? diclofenac (VOLTAREN) 1 % Gel Apply topically. ??? cholecalciferol, vitamin D3, (D3-2000 ORAL) Take by mouth. ??? rosuvastatin (CRESTOR) 20 mg Tablet Take 20 mg by mouth daily. ??? ezetimibe (ZETIA) 10 mg Tablet Take 10 mg by mouth daily. ??? UNABLE TO FIND [facility] ??? calcium-vitamin D 500 mg(1,250mg) -200 [...] lungs 2 times daily. flovent diskus ??? [DISCONTINUED] levothyroxine (SYNTHROID) 50 mcg Tablet Take 50 mcg by mouth daily. Indications:Hypothyroidism ??? multivitamin (THERAGRAN) tablet Take 1 tablet [...] 2 times daily. ??? FOLIC ACID ORAL Physical Exam: BP 151/80 Pulse 84 Ht 5' 4.5 (163.8 cm) Wt 80.9 kg (178 lb 6.4 oz) SpO2 97% BMI 30.15 kg/m?? General: F, NAD Echocardiogram from 07/18/17 shows LVEF 65% Data Download: Date Range: 07/05-10/02/22 Settin/18cw PB 0% Residual AHI: 4.5 Vibratory Snore Index: 0 % Night in Large Leak: 29.6% Avg breath rate: 12.7bpm Average usage days used-Hours: 5 hrs 2 minutes # Days of usage: 75/90 83% % Days used > 4 hours: 52% Previous Data Download: Date Range: 12/19-03/18/21 Settin/17cw PB 0.5% Residual [...] hrs 54 minutes # Days of usage: 92/94 98% % Days used > 4 hours: [...] 100% Assessment Ms. Lindsey Carrasco is a 71 y.o. female seen for annual follow up of moderateobstructive sleep apnea on BPAP therapy. The latest data download show a low residual AHI. VSI is well controlled. Large leak is highly elevated. Usage has declined because machine is too loud for her. It is likely related to high leak because we checked mask fit today. She now has F30, it's a bit big, it was not entirely under her nose and she was pulling the cushion edge underneath her chin. Showed her how it should fit, will likely make a difference. Pressures still well tolerated at BPAP 25/18cw changed at last visit to reduce PS and potentially centrals that show up on download. It appears to work. She now has a replacement BPAP machine from the recall. Weight has declined 36lbs since last BPAP titration study. Reviewed recommendation for repeat BPAP titration study when at goal weight to reassess adequate pressures and oxygenation. Supplies received regularly from [facility] but takes awhile to get them. Plan/recommendations below. Total time spent via telehealth with patient including charting, notes and history review, mask fitcheck, data download analysis, counseling and recommendations: 30 minutes Recommendations: --Continue BPAP 25/18cw --Don't use SoClean or another CPAP road cleaner with any CPAP or BPAP machine --Order to [facility] for in-person mask fitting; the F30 may be too big for her, top dentures removed at night, no bottom teeth; and please evaluate the replacement BPAP machine; very high leak Follow up with [facility] in two weeks if not heard from them --After a mask fitting, if needed, consider a cloth mask liner (see below) --If not able to use BPAP: Conservative measures may help reduce the severity [...] cessation. Some of these may not apply. Ongoing BPAP tips: --Adjust mask straps nightly while laying down with machine on, just to snug, for best fit. Do not overtighten as it can cause discomfort and greater mask leak --Consider the PadACheek or another cloth mask liner for comfort or bothersome mask leak: for information, call [phone] or go to www.[employer] --If dry mouth: 1) adjust humidity up [...] consider over the counter nasal steroid spray --Handouts on helpful PAP tips, proper mask fit, parts cleaning/maintenance, supply replacement intervals, sent to patient through [facility] portal previously--review as needed --Driving safety tips for everyone: do not drive if drowsy; if drowsy while driving, loop puller to nap or rest --Follow-up: 1 year with [place]; contact us or make an appointment sooner, as needed The patient indicates understanding of these issues and agrees with the plan. Alley Johnson APRN documented in this encounter Plan of Treatment Upcoming Encounters Date Type Department Care Team (Late st Contact Info) Description 02/06/2025 2:40 PM EDT Office Visit Cardiology at [address] [place] [address] Rigoberto Diaz MD [facility] [place] [address] Scheduled Procedures Name Priority Associated Diagnoses Date/Ti me EGD, UPPER GI ENDOSCOPY (WRV U 2.09) Incontinence of feces, unspecified fecal incontinence type Dysphagia, unspecified type COLONOSCOPY, DIAGNOSTIC (WRV U 3.26) Incontinence of feces, unspecified fecal incontinence type Dysphagia, unspecified type documented as of this encounter Visit Diagnoses Diagnosis CHEMA treated with BiPAP- Primary Difficulty with CPAP full face mask use Difficulty using bilevel positive airway pressure (BPAP) machine documented in this encounter Care Teams Poultry Vaccinator Relationship Specialty Start Date End Date Vanita Churchill APRN PCP - General Family Medicine 02/27/19 documented as of this encounter
--- OUTSIDE RECORDS SUMMARY | 2024-06-14 01:47 | XMS_ITS | Encounter Summary ---
Author Organization [facility] [place] [address] Care Team Providers Care Motors Assembler Name Role Phone Vanita Churchill KYARA Primary Care Provider [phone] Encounter Details Date Type Department Care Team (Late st Contact Info) Description 07/15/2022 9:30 AM EDT Tech [place] [address] Neha Dub[place] Stenosis of right carotid artery; PAD (peripheral artery disease); Intermittent claudication Social History Tobacco Use Types Packs/Day Years [...] PM EDT Office Visit Cardiology at [address] [address] Rigoberto Diaz MD [facility] [place] [address] Scheduled Procedures Name Priority Associated Diagnoses Date/Ti me EGD, UPPER GI ENDOSCOPY (WRV U 2.09) Incontinence of feces, unspecified fecal incontinence type Dysphagia, unspecified type COLONOSCOPY, DIAGNOSTIC (WRV U 3.26) Incontinence of feces, unspecified fecal incontinence type Dysphagia, unspecified type documented as of this encounter Procedures Procedure Name Priority Date/Time Associated Diagnosis Comments MARIYA, LEGS, MULTIPLE LEVELS Routine 07/15/2022 9:29 AM EDT PAD (peripheral artery disease) Intermittent claudication CAROTID DUPLEX, BILATERAL Routine 07/15/2022 9:29 AM EDT Stenosis of right carotid artery documented in this encounter Results * MARIYA, legs, multiple levels (07/15/2022 9:29 AM EDT) VB Text Report Department: Vascular Surgery Lab Patient: [id number] (DELEON, LINDSEY) CPT: 93774 Referring Physician: MEGHNA HARMON ?? Phone: Indications: 71 year old female with PAD, ? change in peripheral perfusion Diabetes mellitus: No Findings: Right ?Pressure (mm Hg) ?? MARIYA ??Waveform ? Brachial Artery ?162 ? Dorsalis Pedis (Ankle) Artery ?138 ? 0.85 ??Bi-Triphasic ?? Posterior Tibial (Ankle) Artery ??144 ? 0.89 ??Bi-Triphasic ?? Left ? Pressure (mm Hg) ?? MARIYA ??Waveform ? Brachial Artery ?158 ? Dorsalis Pedis (Ankle) Artery ?114 ? 0.70 ??Bi-Triphasic ?? Posterior Tibial (Ankle) Artery ??112 ? 0.69 ??Bi-Triphasic ?? Interpretation: RIGHT: Mild lower extremity arterial occlusive disease at rest. No significant change compared to the previous exam on 07/12/2021. LEFT: Mild to moderate lower extremity arterial occlusive disease at rest. No significant change compared to the previous exam on 07/12/2021. Previous ABIs with change from previous value: Date ?RIGHT DP ?? RIGHT PT ?? RT GR TOE ??RT Sec TOE ??0.48 ? 0.64 ? ---- ? ---- ??0.94(+.46) 0.91(+.27) ---- ? ---- ??0.85(-.09) 0.90(-.01) ---- ? ---- ??0.89(+.04) 0.91(+.01) ---- ? ---- ??0.92(+.03) 0.85(-.06) ---- ? ---- ??0.86(-.06) 0.86(+.01) ---- ? ---- Current ? 0.85(-.01) 0.89(+.03) ---- ? ---- Date ?LEFT DP ?LEFT PT ?LT GR TOE LT Sec TOE ??0.48 ? 0.68 ? ---- ? ---- ??0.80(+.32) 0.84(+.16) ---- ? ---- ??0.80( .00) 0.85(+.01) ---- ? ---- ??0.87(+.07) 0.89(+.04) ---- ? ---- ??0.88(+.01) 0.88(-.01) ---- ? ---- ??0.64(-.24) 0.70(-.18) ---- ? ---- Current ? 0.70(+.06) 0.69(-.01) ---- ? ---- Electronically Signed by: OZIEL FARAH on 2022-07-15 02:06:09 PM VASCUBASE VB Text Report End of Report VASCUBASE 07/15/2022 9:29 AM EDT Meghna Harmon MD VASCULAR [facility] Organization Address City/State/[facility] Co id Phone Number [email or web address] * Carotid Duplex, Bilateral (07/15/2022 9:29 AM EDT) VB Text Report Department: Vascular Surgery Lab Patient: [id number] (LINDSEY DELEON) CPT: 06912 Referring Physician: MEGHNA HARMON ?? Phone: Indications: 71 year old female with carotid disease, s.p RIGHT CEA, ? change Findings: ICA Proximal, Right ? PSV (cm/s): 100 ? EDV (cm/s): 27 ? ICA/CCA: 1.0 ? Plaque Structure: Echogenic ? Plaque Surface: Irregular ? %Stenosis: <15% ICA Distal, Right ? PSV (cm/s): 100 ? EDV (cm/s): 27 ? ICA/CCA: 1.0 CCA Distal, Right ? PSV (cm/s): 99 ? EDV (cm/s): 20 ? %Stenosis: Minimal CCA Proximal, Right ? PSV (cm/s): 113 ? EDV (cm/s): 14 External Carotid Artery, Right ? PSV (cm/s): 178 ? EDV (cm/s): 26 ? %Stenosis: <50% Vertebral, Right ? PSV (cm/s): 66 ? EDV (cm/s): 14 ? Direction of Flow: Antegrade ICA Proximal, Left ? PSV (cm/s): 102 ? EDV (cm/s): 32 ? ICA/CCA: 1.0 ? Plaque Structure: Echogenic ? Plaque Surface: Irregular ? %Stenosis: 16-49% ICA Distal, Left ? PSV (cm/s): 64 ? EDV (cm/s): 20 ? ICA/CCA: 0.6 CCA Distal, Left ? PSV (cm/s): 107 ? EDV (cm/s): 24 ? %Stenosis: Minimal CCA Proximal, Left ? PSV (cm/s): 72 ? EDV (cm/s): 19 External Carotid Artery, Left ? PSV (cm/s): 187 ? EDV (cm/s): 11 ? %Stenosis: <50% Vertebral, Left ? PSV (cm/s): 41 ? EDV (cm/s): 11 ? Direction of Flow: Antegrade Interpretation: RIGHT: A thin layer of circumferential plaque is present in the common carotid artery causing no stenosis. There is irregular plaque in the proximal internal carotid artery causing <15% stenosis when compared to the more distal internal carotid artery. The bifurcation level is in the mid neck. No significant change compared to the exam on 07/12/2021. LEFT: A thin layer of circumferential plaque is present in the common carotid artery causing no stenosis. There is bulky irregular plaque in the proximal internal carotid artery causing 16-49% stenosis when compared to the more distal internal carotid artery. The bifurcation level is in the mid neck. No significant change compared to the exam on 07/12/2021. Vertebral Artery Data: Patent vertebral arteries with [...] 1.00 ? 16-49% ? 102 ?? 1.00 Electronically Signed by: OZIEL FARAH on 2022-07-15 01:56:49 PM VASCUBASE VB Text Report End of Report VASCUBASE 07/15/2022 9:29 AM EDT Meghna Harmon MD VASCULAR ORDERA BLES VASCUBASE documented in this encounter Visit Diagnoses Diagnosis Stenosis of right carotid artery Occlusion and stenosis of carotid artery without mention of cerebral infarction PAD (peripheral artery disease) Peripheral vascular disease, unspecified Intermittent claudication Peripheral vascular disease, unspecified documented in this encounter Care Teams Motors Assembler Relationship Specialty Start Date End Date Vanita Churchill, SHOEMAKER CUSTOM PCP - General Family Medicine 02/27/19 documented as of this encounter
--- OUTSIDE RECORDS SUMMARY | 2024-06-14 01:47 | XMS_ITS | Encounter Summary ---
[place] [address] Care Team Providers Care Household Cook Name Role Phone Vanita Churchill Omar SPARROW Primary Care Provider Reason for Referral * Diagnostic Test (Routine) - Closed Specialty Diagnoses / Procedures [facility] Referred To Contact Radiology Diagnoses Aortic valve stenosis, etiology of cardiac valve disease unspecified Procedures CT Angiogram Abdomen & Pelvis w Contrast (Generic) Gregorio Goodman MD [facility] [place] [address] [facility] [place] [address] Referral ID Status Reason Start Date Expiration Date V isits Requested Visits Authorized [id number] Closed Specialty Service Requested 12/21/2022 06/19/2024 1 1 * Diagnostic Test (Routine) - Closed Specialty Diagnoses / Procedures Referred By Emy castillo Referred To Contact Radiology Diagnoses Aortic valve stenosis, etiology of cardiac valve disease unspecified Procedures CT Cardiac for Morphology & Function Gregorio Goodman [place] [facility] [place] [address] [facility] [place] [address] Referral ID Status Reason Start Date Expiration Date V isits Requested Visits Authorized [id number] Closed Specialty Service Requested 12/21/2022 06/19/2024 1 1 Reason for Visit * Diagnostic Test (Routine) - Closed Specialty Diagnoses / Procedures Referred By Contac t Referred To Contact Radiology Diagnoses Aortic valve stenosis, etiology of cardiac valve disease unspecified Procedures CT Cardiac for Morphology & Function Gregorio Goodman MD [facility] [place] [address] [facility] [place] [address] Referral ID Status Reason Start Date Expiration Date V isits Requested Visits Authorized [id number] Closed Specialty Service Requested 12/21/2022 06/19/2024 1 1 Encounter Details Date Type Department Care Team (Latest Contact Info) Description 02/09/2023 11:30 AM EDT - 02/09/2023 12:47 PM EDT Hospital [place] [address] Gregorio Goodman MD [facility] [place] [address] Aortic valve stenosis, etiology of cardiac valve [...] oxygen-air delivery systems ([employer] [facility]) Supply, See instructions, # 1 EA, 0 [...] PM EDT Office Visit Cardiology at [address] [address] Rigoberto Diaz [place] [facility] [address] Scheduled Procedures Name Priority Associated Diagnoses Date/Ti me EGD, UPPER GI ENDOSCOPY (WRV U 2.09) Incontinence of feces, unspecified fecal incontinence type Dysphagia, unspecified type COLONOSCOPY, DIAGNOSTIC (WRV U 3.26) Incontinence of feces, unspecified fecal incontinence type Dysphagia, unspecified type documented as of this encounter Procedures Procedure Name Priority Date/Time Associated Diagnosis Comments CT HEART FOR FUNCTION (NON-CORONARY) W CONTRAST Routine 02/09/2023 11:57 AM EDT Aortic valve stenosis, etiology of cardiac valve disease unspecified CT ANGIOGRAM ABDOMEN AND PELVIS W CONTRAST Routine 02/09/2023 11:57 AM EDT Aortic valve stenosis, etiology of cardiac valve disease unspecified documented in this encounter Results * CT Angiogram Abdomen & Pelvis w [...] who have questions please contact the health child care specialist that requested your imaging first. ? Electronically signed by: Richy Caballero MD, [facility] ([phone]), at 02/10/2023 10:13 AM Narrative 02/10/2023 10:13 AM EDT EXAMINATION: CT [...] patients who have questions please contactthe health child care specialist that requested your imaging first. Electronically signed by: Richy Caballero MD, [facility]([phone]), at 02/10/2023 10:13 AM Gregorio Goodman MD IMG CT ORDERABLES * [...] who have questions please contact the health child care specialist that requested your imaging first. ? Electronically signed by: Salma Crespo MD, [facility] ([phone]), at 02/13/2023 11:43 AM Narrative 02/13/2023 11:43 AM EDT EXAMINATION: CT [...] Valsalva, set equidistant: ?? Anterior oblique plane: CATIE Anterior oblique angulation: 5 Craniocaudal plane: CAU Craniocaudal angulation: 20 Tcmkvgn-ch-[id number] height: Imaging phase: 95% Right: 15.5 mm [...] of Valsalva, set equidistant: Anterior oblique plane: CATIE Anterior oblique angulation: 5 Craniocaudal plane: CAU Craniocaudal angulation: 20 Vqmnfnq-jx-lgbvqzgo height: Imaging phase: 95% Right: 15.5 mm [...] patients who have questions please contactthe health child care specialist that requested your imaging first. Gregorio Goodman MD IMG CT ORDERABLES documented in this encounter Visit Diagnoses Diagnosis Aortic valve stenosis, etiology of cardiac valve disease unspecified documented in this encounter Administered Medications Inactive Administered Medications - up to 3 most recent administrations Medication Order MAR Action Action Date Dose Rate Site iohexoL (Omnipaque) (350 mg/mL) solution 0-200 mL 0-200 mL, Intravenous, ONCE PRN, 1 dose, Starting on Tracey 02/09/23 at 1156, Until Tracey 02/09/23 at 1157, Per Protocol, Warning Vesicant/Irritant Medication , Radiology Contrast, Routine Given 02/09/2023 11:57 AM EDT 99 mLs documented in this encounter Care Teams Household Cook Relationship Specialty Start Date End Date Vanita Churchill APRN PCP - General Family Medicine 02/27/19 documented as of this encounter
--- OUTSIDE RECORDS SUMMARY | 2024-06-14 01:47 | XMS_ITS | Encounter Summary ---
Author Organization [facility] [place] [address] Care Team Providers Care Bricklayer Name Role Phone Vanita Churchill BUSINESS CONTROL SPECIALIST Primary Care Provider [phone] Encounter Details Date Type Department Care Team (Latest Contact Info) Description 02/08/2023 Travel Social History Tobacco Use Types Packs/Day [...] 2:40 PM EDT Office Visit Cardiology at [address] [place] [address] Rigoberto Diaz MD [facility] [place] [address] Scheduled Procedures Name Priority Associated Diagnoses Date/Ti me EGD, UPPER GI ENDOSCOPY (WRV U 2.09) Incontinence of feces, unspecified fecal incontinence type Dysphagia, unspecified type COLONOSCOPY, DIAGNOSTIC (WRV U 3.26) Incontinence of feces, unspecified fecal incontinence type Dysphagia, unspecified type documented as of this encounter Visit Diagnoses Not on filedocumented in this encounter Care Teams Bricklayer Relationship Specialty Start Date End Date Vanita Churchill, KYARA PCP - General Family Medicine 02/27/19 documented as of this encounter
--- OUTSIDE RECORDS SUMMARY | 2024-06-14 01:47 | XMS_ITS | Encounter Summary ---
Author Organization [facility] [place] [address] Care Team Providers Care Heating Unit Mechanic Name Role Phone Vanita Churchill Omar SPARROW Primary Care Provider [phone] Encounter Details Date Type Department Care Team (Latest Contact Info) Description 02/09/2023 12:48 PM EDT - 02/09/2023 11:59 PM EDT Hospital Encounter XRay at [address] [place] [address] Gregorio Goodman MD [facility] [place] [address] Aortic valve stenosis, etiology of cardiac valve [...] PM EDT Office Visit Cardiology at [address] [address] Rigoberto Diaz MD [facility] [place] [address] Scheduled Procedures Name Priority Associated Diagnoses Date/Ti me EGD, UPPER GI ENDOSCOPY (WRV U 2.09) Incontinence of feces, unspecified fecal incontinence type Dysphagia, unspecified type COLONOSCOPY, DIAGNOSTIC (WRV U 3.26) Incontinence of feces, unspecified fecal incontinence type Dysphagia, unspecified type documented as of this encounter Procedures Procedure Name Priority Date/Time Associated Diagnosis Comments XR CHEST PA AND LATERAL Routine 02/09/2023 1:02 PM EDT Aortic valve stenosis, etiology of cardiac valve disease unspecified documented in this encounter Results * XR Chest PA & Lateral (Generic) [...] who have questions please contact the health housekeeper child care that requested your imaging first. ? Narrative [...] patients who have questions please contactthe health housekeeper child care that requested your imaging first. Gregorio Goodman MD IMG DX ORDERABLES documented in this encounter Visit Diagnoses Diagnosis Aortic valve stenosis, etiology of cardiac valve disease unspecified documented in this encounter Care Teams Heating Unit Mechanic Relationship Specialty Start Date End Date Vanita Churchill APRN PCP - General Family Medicine 02/27/19 documented as of this encounter
--- OUTSIDE RECORDS SUMMARY | 2024-06-14 01:47 | XMS_ITS | Encounter Summary ---
Author Organization [facility] [place] [address] Care Team Providers Care Energy Sales Consultant Name Role Phone Vanita Churchill MANAGER OFFICE Primary Care Provider [phone] Encounter Details Date Type Department Care Team (Late st Contact Info) Description 07/12/2021 12:30 PM EDT Tech [place] [address] [place], [place] Stenosis of right carotid artery; PVD (peripheral vascular disease) with claudication Social History Tobacco Use Types Packs/Day [...] 2:40 PM EDT Office Visit Cardiology at [address] [phone] Rigoberto Diaz MD [facility] [place] [id number] Scheduled Procedures Name Priority Associated Diagnoses Date/Ti me EGD, UPPER GI ENDOSCOPY (WRV U 2.09) Incontinence of feces, unspecified fecal incontinence type Dysphagia, unspecified type COLONOSCOPY, DIAGNOSTIC (WRV U 3.26) Incontinence of feces, unspecified fecal incontinence type Dysphagia, unspecified type documented as of this encounter Procedures Procedure Name Priority Date/Time Associated Diagnosis Comments MARIYA, LEGS, MULTIPLE LEVELS Routine 07/12/2021 12:17 PM EDT Stenosis of right carotid artery PVD (peripheral vascular disease) with claudication CAROTID DUPLEX, BILATERAL Routine 07/12/2021 12:17 PM EDT Stenosis of right carotid artery PVD (peripheral vascular disease) with claudication documented in this encounter Results * MARIYA, legs, multiple levels (07/12/2021 12:17 PM EDT) VB Text Report Department: Vascular Surgery Lab Patient: [id number] ([facility]) CPT: 21541 ICD10: I73.9;I70.213;I6 5.21 Referring Physician: DOROTA MONTAÑO MD ?? Phone: Indications: Patient with h/p PVD, ? change in MARIYA Diabetes mellitus: No ICD10 Diagnosis Code: I73.9, I65.21 Findings: Right ?Pressure (mm Hg) ?? MARIYA ??Waveform ? Brachial Artery ?118 ? Dorsalis Pedis (Ankle) Artery ?101 ? 0.86 ??Bi-Triphasic ?? Posterior Tibial (Ankle) Artery ??102 ? 0.86 ??Bi-Triphasic ?? Left ? Pressure (mm Hg) ?? MARIYA ??Waveform ? Brachial Artery ?114 ? Dorsalis Pedis (Ankle) Artery ?76 ?0.64 ??Bi-Triphasic ?? Posterior Tibial (Ankle) Artery ??83 ?0.70 ??Bi-Triphasic ?? Interpretation: RIGHT: Mild lower extremity arterial occlusive disease. No identifiable change when compared to the previous exam performed on 07/02/2020. LEFT: Mild to moderate lower extremity arterial occlusive disease. Significant deterioration compared to previous exam performed on 07/02/2020. Previous ABIs with change from previous value: Date ?RIGHT DP ?? RIGHT PT ?? RT GR TOE ??RT Sec TOE ??0.48 ? 0.64 ? ---- ? ---- ??0.94(+.46) 0.91(+.27) ---- ? ---- ??0.85(-.09) 0.90(-.01) ---- ? ---- ??0.89(+.04) 0.91(+.01) ---- ? ---- ??0.92(+.03) 0.85(-.06) ---- ? ---- Current ? 0.86(-.06) 0.86(+.01) ---- ? ---- Date ?LEFT DP ?LEFT PT ?LT GR TOE LT Sec TOE ??0.48 ? 0.68 ? ---- ? ---- ??0.80(+.32) 0.84(+.16) ---- ? ---- ??0.80( .00) 0.85(+.01) ---- ? ---- ??0.87(+.07) 0.89(+.04) ---- ? ---- ??0.88(+.01) 0.88(-.01) ---- ? ---- Current ? 0.64(-.24) 0.70(-.18) ---- ? ---- Electronically Signed by: MEGHNA DENISE on 2021-07-13 02:58:30 PM VASCUBASE VB Text Report End of Report VASCUBASE 07/12/2021 12:1 7 PM EDT Dorota Montaño MD VASCULAR ORDERABLES VASCUBASE * Carotid Duplex, Bilateral (07/12/2021 12:17 PM EDT) VB Text Report Department: Vascular Surgery Lab Patient: [id number] (FIGUEREDOOBDULIA MURILLOSA) CPT: 70214 ICD10: I73.9;I65.23;I65.2 1 Referring Physician: DOROTA MONTAÑO MD ?? Phone: Indications: Patient with h/o carotid stenosis and right CEA, ? change ICD10 Diagnosis Code: I73.9, I65.21 Findings: ICA Proximal, Right ? PSV (cm/s): 125 ? EDV (cm/s): 27 ? ICA/CCA: 1.2 ? Plaque Structure: Echogenic ? Plaque Surface: Smooth ? %Stenosis: 16-49% ICA Distal, Right ? PSV (cm/s): 127 ? EDV (cm/s): 22 ? ICA/CCA: 1.2 CCA Distal, Right ? PSV (cm/s): 102 ? EDV (cm/s): 21 ? %Stenosis: Minimal CCA Proximal, Right ? PSV (cm/s): 108 ? EDV (cm/s): 0 External Carotid Artery, Right ? PSV (cm/s): 208 ? EDV (cm/s): 13 ? %Stenosis: >50% Vertebral, Right ? PSV (cm/s): 100 ? EDV (cm/s): 16 ? Direction of Flow: Antegrade ICA Proximal, Left ? PSV (cm/s): 100 ? EDV (cm/s): 21 ? ICA/CCA: 0.9 ? Plaque Structure: Echogenic ? Plaque Surface: Irregular ? %Stenosis: 16-49% ICA Distal, Left ? PSV (cm/s): 82 ? EDV (cm/s): 19 ? ICA/CCA: 0.7 CCA Distal, Left ? PSV (cm/s): 113 ? EDV (cm/s): 17 ? %Stenosis: Minimal CCA Proximal, Left ? PSV (cm/s): 89 ? EDV (cm/s): 16 External Carotid Artery, Left ? PSV (cm/s): 226 ? EDV (cm/s): 15 ? %Stenosis: >50% Vertebral, Left ? PSV (cm/s): 48 ? EDV (cm/s): 16 ? Direction of Flow: Antegrade Interpretation: RIGHT: A thin layer of circumferential plaque is present in the common carotid artery causing minimal stenosis. There is smooth plaque in the proximal internal carotid artery causing 16-49% stenosis (low end of range) when compared to the more distal internal carotid artery. The bifurcation level is in the mid neck. Slight progression of the internal carotid artery stenosis with no change through the remainder of the exam when compared to 07/02/2020. LEFT: A thin layer of circumferential plaque is present in the common carotid artery causing minimal stenosis. There is bulky irregular plaque in the bifurcation/proxim al internal carotid artery causing 16-49% stenosis when compared to the more distal internal carotid artery. The bifurcation level is in the mid neck. No identifiable change when compared to the previous exam performed on 07/02/2020. Vertebral Artery Data: Patent vertebral arteries with [...] 2.00 ? 16-49% ? 102 ?? 1.00 Current Exam ? 16-49% ? 125 ?? 1.20 ? 16-49% ? 100 ?? 0.90 Electronically Signed by: MEGHNA DENISE on 2021-07-13 05:08:58 PM VASCUBASE VB Text Report End of Report VASCUBASE 07/12/2021 12:1 7 PM EDT Dorota Montaño MD VASCULAR ORDERABLES VASCUBASE documented in this encounter Visit Diagnoses Diagnosis Stenosis of right carotid artery Occlusion and stenosis of carotid artery without mention of cerebral infarction PVD (peripheral vascular disease) with claudication Peripheral vascular disease, unspecified documented in this encounter Care Teams Energy Sales Consultant Relationship Specialty Start Date End Date Vanita Churchill, KYARA PCP - General Family Medicine 02/27/19 documented as of this encounter
--- OUTSIDE RECORDS SUMMARY | 2024-06-14 01:47 | XMS_ITS | Encounter Summary ---
[place] [address] Care Team Providers Care Snack Bar Cook Name Role Phone Vanita Churchill HIGHWAY COMMISSIONER Primary Care Provider [phone] Reason for Visit * Consultation (Routine) - Closed Specialty Diagnoses / Procedures Referred By Emy castillo Referred To Contact Cardiology Diagnoses Aortic valve stenosis, etiology of cardiac valve disease unspecified Dyspnea on exertion STRUCTURAL CARD WORSENING MOD-SEVERE AORTIC STENOSIS, SOBOE. NEEDS VALVE REPLACEMENT Vanita Churchill, [address] [place] [address] [facility] Card[facility] [address] [place] [phone] Referral ID Status Reason Start Date Expiration Date V isits Requested Visits Authorized [id number] Closed Consult, Test & Treat 12/14/2022 12/14/2023 1 1 Encounter Details Date Type Department Care Team (Late st Contact Info) Description 02/09/2023 10:40 AM EDT Office Visit [place] [address] Rahat Joe MD [facility] CARDIOTHORAC[place] [address] Aortic stenosis, severe Social History Tobacco Use [...] Sign Reading Time Taken Comments Blood Pressure 144/55 02/09/2023 10:55 AM EDT Pulse 79 02/09/2023 10:55 AM EDT Temperature - - Respiratory Rate - - Oxygen Saturation 94% 02/09/2023 10:55 AM EDT Inhaled Oxygen Concentration - - Weight 79.8 kg (176 lb) 02/09/2023 10:55 AM EDT Height 160 cm (5' 3) 02/09/2023 10:55 AM EDT re ported Body Mass Index 31.18 02/09/2023 10:55 AM EDT documented in this encounter Progress Notes * Rahat Joe MD - 02/09/2023 10:40 AM EDT To: MD Vanita Rangel APRN Re: Lindsey Deleon ( 1950) We had an opportunity to meet today with Ms. Deleon to discuss issues surrounding the management of her symptomatic aortic stenosis. Ms. Deleon is a 72-year-old woman who presented recently with increasingly severe exertional dyspnea for which an echocardiogram was performed. She also underwenta cardiac cath which I had an opportunity to review, her cardiac cath gratifyingly shows no obstructive coronary disease but does demonstrate severe aortic stenosis with an aortic valve area of 0.7 cm?? and a mean gradient of 49. Her symptoms are those of class II-III exertional dyspnea with occasional exertional chest pain. Her past medical history and systems reviewed in their entirety the pertinent issues are listed below. She has hypertension, she is not a diabetic. She has no known previous CVA or TIA, she has no known renal or hepatic insufficiency. She does have fairly severe reactive airway disease treated with nebulizers and inhaled steroids. She has very severe peripheral vasculardisease having undergone a prior right carotid endarterectomy a left femoral endarterectomy and bilateral iliac stents which are 8 mm in diameter. She discontinued the use of tobacco in 2003. 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 On examination she has a blood pressure 144/55, her heart rates in the 70s it is sinus by palpation. Her HEENT examination is unremarkable, she has a anterior sternocleidomastoid scar on the right, there are murmurs transmitted to both sides of her neck. There are no cervical masses. She does have a 3/6 systolic murmur at the right upper parasternal border which radiates into her neck. Her chest is clear to auscultation. She does have bilateral brawny lower extremity edema. In summary, Mrs. Deleon has severe, symptomatic aortic stenosis. I agree she would benefit from aortic valve replacement therapy. I think given her chronological age and comorbidities a transcatheter option would be best. A preliminary review of her CT angiogram demonstrates a right iliofemoral system which may be adequate in diameter to accept a transcatheter approach depending on the size of the valve. This study will have to be reviewed carefully with the heart team prior to recommending afinal approach. In the interim thank you very much for allowing us to participate in her care and should you require anything further please do not hesitate to contact my office. Best personal regards, Rahat Joe MD [phone] This was a complex high-level consult making a decision to refer this patient for aortic valve replacement therapy. documented in this encounter Plan of Treatment Upcoming Encounters Date Type Department Care Team (Late st Contact Info) Description 02/06/2025 2:40 PM EDT Office Visit Cardiology at [address] [address] Rigoberto Diaz MD [facility] [place] [address] Scheduled Procedures Name Priority Associated Diagnoses Date/Ti me EGD, UPPER GI ENDOSCOPY (WRV U 2.09) Incontinence of feces, unspecified fecal incontinence type Dysphagia, unspecified type COLONOSCOPY, DIAGNOSTIC (WRV U 3.26) Incontinence of feces, unspecified fecal incontinence type Dysphagia, unspecified type documented as of this encounter Visit Diagnoses Diagnosis Aortic stenosis, severe Aortic valve disorders documented in this encounter Care Teams Snack Bar Cook Relationship Specialty Start Date End Date Vanita Churchill APRN PCP - General Family Medicine 02/27/19 documented as of this encounter
--- OUTSIDE RECORDS SUMMARY | 2024-06-14 01:47 | XMS_ITS | Encounter Summary ---
[place] [address] Care Team Providers Care Keyseater Operator Name Role Phone Vanita Churchill Omar SPARROW Primary Care Provider [phone] Encounter Details Date Type Department Care Team (Late st Contact Info) Description 02/13/2023 Refill Cardiology at [address] [address] Mane Ayala, RN Social History Tobacco Use [...] Telephone Encounter - Mane Ayala, RN - 02/13/2023 1:16 PM EDT Requested Prescriptions Pending Prescriptions Disp Refills ??? amLODIPine (Norvasc) 5 mg tablet 90 tablet 3 Sig: Take 1 tablet by mouth daily. ??? hydroCHLOROthiazide (Hydrodiuril) 12.5 mg tablet 90 tablet 3 Sig: Take 2 tablets by mouth daily. Received a telephonic prescription refill request for above Norvasc and Hydrodiuril from Ms. Deleon, redirecting refills to the [facility], [place], [place]. Refill request for 90 days with 3 refills advanced, anticipating follow up soon with [facility] Heart (TAVR workup well in process). Reviewed Epic record and last office note from Edwige Nieves dated 01/20/2023, as well as most recent Discharge Summary dated 01/31/2023. amlodipine besylate 5 mg Oral DAILY hydrochlorothiazide 25 mg Oral DAILY hydroCHLOROthiazide hydroCHLOROthiazide (Hydrodiuril) 12.5 mg Tablet Take 2 tablets by mouth daily., Disp-90 tablet, R-3, Normal Refill prepped and forwarded to Provider for authorization Timo Ayala RNmarine engineering teacher Team Nurse [facility] documented in this encounter Plan of Treatment Upcoming Encounters Date Type Department Care Team (Late st Contact Info) Description 02/06/2025 2:40 PM EDT Office Visit Cardiology at [address] [place] [phone] Rigoberto Diaz MD [facility] [place] [address] Scheduled Procedures Name Priority Associated Diagnoses Date/Ti de EGD, UPPER GI ENDOSCOPY (WRV U 2.09) Incontinence of feces, unspecified fecal incontinence type Dysphagia, unspecified type COLONOSCOPY, DIAGNOSTIC (WRV U 3.26) Incontinence of feces, unspecified fecal incontinence type Dysphagia, unspecified type documented as of this encounter Visit Diagnoses Diagnosis ASCVD (arteriosclerotic cardiovascular disease) Unspecified cardiovascular disease Essential hypertension Unspecified essential hypertension documented in this encounter Care Teams Keyseater Operator Relationship Specialty Start Date End Date Vanita Churchill APRN PCP - General Family Medicine 02/27/19 documented as of this encounter
--- OUTSIDE RECORDS SUMMARY | 2024-06-14 01:47 | XMS_ITS | Encounter Summary ---
[place] [address] Care Team Providers Care Fuse Cutter Name Role Phone Kerline Vanita Nelson LUNCHROOM FOOD SERVICE SUPERVISOR Primary Care Provider [phone] Encounter Details Date Type Department Care Team (Late st Contact Info) Description 03/22/2021 9:00 AM EDT TH Visit (TeleHealth) Sleep Center at [facility] [address] [place] [address] Alley Johnson APRN [facility] [place] [address] CHEMA treated with BiPAP Social History Tobacco [...] Sign Reading Time Taken Comments Blood Pressure - - Pulse - - Temperature - - Respiratory Rate - - Oxygen Saturation - - Inhaled Oxygen Concentration - - Weight 86.2 kg (190 lb) 03/19/2021 3:15 PM EDT Height 161.3 cm (5' 3.5) 03/19/2021 3:15 PM EDT Body Mass Index 33.13 03/19/2021 3:15 PM EDT documented in this encounter Patient Instructions * Patient Instructions* Alley Johnson APRN - 03/22/2021 9:00 AM EDT Recommendations: --Order for BPAP 25/cw, order to [facility] --Call DME company ([employer]) for questions on machine, supply replacements, billing --Adjust mask straps nightly while laying down with machine on, just to snug, for best fit; do not overtighten as it can cause discomfort and greater mask leak --If dry mouth: 1) adjust humidity up and/or heated tube temperature down, 2) consider over the counter Biotene mouth rinse, spray, or gel, 3) consider adding room humidifier --If nasal congestion: 1) Try adjusting PAP humidity level, 2) Consider OTC saline nasal spray: 2 sprays per nostril twice daily, before affixing mask in evening and after removing mask in morning, and/or 3) consider nasal saline wash at night before affixing mask, and/or 4) consider over the counter nasal steroid spray --Driving safety reviewed --Follow up one year with [facility], knows to call sooner if needed; staff will call to schedule documented in this encounter Progress Notes * Alley Johnson APRN - 03/22/2021 9:00 AM EDT Sleep Medicine Telehealth Follow-Up Note CC/HPI: Ms. Lindsey Carrasco is a 70 y.o. female seen for annual follow-up of obstructivesleep apnea on BPAP therapy. HPI continues below. Patient in [place], [place] Visit is by video Patient provided verbal consent prior to initiation of this telehealth encounter and expressed understanding that the telehealth visit may be billed similar to a clinic visit Sleep Study History: 02/07/2008 at [facility], from Dr. Robbins's note: AHI: 28/hr, supine index was 29/hour Wt: 192.4lbs 03/08/2008 CPAP Titration, Wt: 194.6lbs, from Dr. Robbins's note: Ms. Mehta has moderate sleep apnea. She also has [...] unclear significance. 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 to hearing consultant, thinks it was medication; cardiology found lack of pulsein hip and feet, stent placed; ECHO from July 18, 2017 shows LVEF 65%) Treatment: BIPAP DreamStation Auto BPAP, setup 01/30/19 now Previously BPAP Auto 760P, setup 12/30/13 Has SoClean2 machine Pressure: 25/17, previously 25/21cw (should be 25/17cw)--excess gas, worse IBS, unsure if it was r/t IBS or gluten diet Tolerance: fine Interface: back to [place], small; Didn't like DreamWear FFM, small frame, small cushion; demo provided to her in 2019 visit Didn't like the Airtouch F20, small as irritating nasal bridge,previous mask was Mirage Quattro butit left a cortney on her nose Chin strap: No, chin strap was tried in the past but she opened her mouth anyway HCC: [facility] to get machine (that ofc is appt only[place] Snoring on BPAP: no Nocturnal gasping on BPAP: no Dry Mouth: [...] quickly Daytime Symptoms: Patient-reported last 4 scores: [facility] 12/08/2017 08/02/2018 04/05/2019 03/22/2021 [facility] 4 3 3 4 Insomnia Severity Index Incomplete 4 (No clinically significant insomnia) 4 (No clinically significant insomnia) Incomplete VR12 - Physical Component Summary - - - - VR12 - Mental Component Summary - - - - Sleepiness or Drowsiness when driving: drives, no drowsiness ROS: Constitutional: Weight : 2017 sleep study 214lbs, 03/19/20 174lbs Today 190lbs, trying to get down to 155lbs; going to [facility] and losing weight (not right now due to COVID) ENT: Nasal Obstruction: On Zyrtec over the summer for seasonal allergies, uses Flonase PRN--educated on usage, hasn't restarted yet Resp: asthma/COPD; no more nebulizer, uses Flovent BID, and inhaler PRN; Social History: Normally, 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 CHOLECYSTECTOMY ??? PRG X-RAY AORTA LEG ARTERIES N/A 08/15/2017 AORTOGRAPHY, ABD. + AYAAN. ILIOFEMORAL LE BY SERIALOGRAPHY S & I (WRVU 1.79) performed by Jake Montaño MD at [facility] MAIN OR ??? PRO COLONOSCOPY, DIAGNOSTIC 12/06/2012 COLONOSCOPY, DIAGNOSTIC performed by Mik Dumont MD at [facility] ENDOSCOPY ??? PRO LAPAROSCOPY, SURG, REPAIR PARAESOPHAGEAL HERNIA, W/O IMPLANTATION OF MESH 02/18/2013 LAPAROSCOPIC PARAESOPHAGEAL HERNIA REPAIR W/FUNDOPLASTY, W/O MESH performed by Moncho Bowers MD at [facility] MAIN OR ??? PRO PLACE CATH FIRST ORDER ART, ABD/PELV 08/15/2017 CATHETER PLACEMENT, SELECTIVE FIRST ORDER IN ARTERIAL SYSTEM, EACH FIRST ORDER ABDOMINAL, PELVIC, OR LOWER EXTREMITY ARTERY BRANCH,WITHIN A VASCULAR FAMILY (WRVU 4.9) performed by Jake Montaño MD at [facility] MAIN OR ? ? PRO REVSC OPEN/PERCUTANEOUS ILIAC ART W STNT PLMT&ANGIO PATRICE VSL UNILAT Bilateral 08/15/2017 REVSC OPN\PRQ ILIAC ART W\STNT PLMT & ANGIOP SAME VSL (WRVU 10) performed by Jake Montaño MD at [facility] MAIN OR ??? PRO THROMBOENDARTECTMY ILIOFEMORAL Left 08/15/2017 @ENDARTERECTOMY, ILIOFEMORAL W OR W/O PATCH GRAFT (WRVU 19.86) performed by Jake Montaño MD at [facility] MAIN OR ??? PRO THROMBOENDARTECTMY NECK, NECK INCIS Right 06/10/2019 @ENDARTERECTOMY, CAROTID, VERTEBRAL,SUBCLAVIAN W\WO PATCH GRAFT (WRVU 21.16) performed by Jake Montaño MD at [facility] MAIN OR ??? PRO UPPER GI ENDOSCOPY, BIOPSY 12/06/2012 EGD WITH BIOPSY performed by Mik Dumont MD at [facility] ENDOSCOPY ??? TUBAL LIGATION Past Medical History: Diagnosis Date ??? Anemia [...] E78.00 ??? Rheumatoid arthritis(714.0) M06.9 ??? Depression F32.9 ??? COPD (chronic obstructive pulmonary disease) J44.9 ??? Macular degeneration H35.30 ??? IBS (irritable bowel syndrome) K58.9 ??? Constipation K59.00 ??? Seasonal allergic rhinitis J30.2 ??? Hypothyroidism E03.9 ??? Asthma J45.909 ??? Obesity (BMI 30-39.9) E66.9 ??? Atherosclerotic PVD with intermittent claudication I70.219 ??? Claudication in peripheral vascular disease I73.9 ??? Carotid stenosis I65.29 Outpatient Medications Marked as Taking for the 03/22/21 encounter (TH Visit (TeleHealth)) with Alley Johnson APRN Medication Sig Dispense Refill ??? buPROPion SR (Wellbutrin SR) 150 mg tablet sustained-release 12 hr Take by mouth. ??? nystatin (MYCOSTATIN) Cream Apply topically. ??? hydrocortisone 1 % Cream Apply topically. ??? guaiFENesin ER (Mucinex) 600 mg Tablet Extended Release 12hr Take by mouth. ??? gabapentin (Neurontin) 300 mg Capsule Take by mouth 2 times daily. ??? diclofenac (VOLTAREN) 1 % Gel Apply topically. ??? albuterol 90 mcg/actuation HFA Aerosol Inhaler Inhale 2 puffs into the lungs every 4 hours as needed for Wheezing. Use with spacer ??? [DISCONTINUED] buPROPion (WELLBUTRIN) 100 mg Tablet Take 100 mg by mouth daily. ??? cholecalciferol, vitamin D3, (D3-2000 ORAL) Take by mouth. ??? rosuvastatin (CRESTOR) 20 mg Tablet Take 20 mg by mouth daily. ??? ezetimibe (ZETIA) 10 mg Tablet Take 10 mg by mouth daily. ??? [facility] FIND [facility] ??? calcium-vitamin D 500 mg(1,250mg) -200 unit Tablet Take 1 tablet by mouth daily. ??? acetaminophen (TYLENOL) 325 mg Tablet Take [...] 3 mLs by nebulization 2 times daily. ??? cetirizine (ZYRTEC) 10 mg Tablet Take 10 mg by mouth daily. ??? fluticasone (FLOVENT) 110 mcg/actuation HFA Aerosol Inhaler Inhale 1 puff into the lungs 2 times daily. flovent diskus ??? [DISCONTINUED] hydroCHLOROthiazide (MICROZIDE) 12.5 mg Capsule Take 12.5 mg by mouth daily. ??? levothyroxine (SYNTHROID) 50 mcg Tablet Take 50 mcg by mouth daily. Indications: Hypothyroidism ??? multivitamin (THERAGRAN) tablet Take 1 tablet [...] 2 times daily. ??? FOLIC ACID ORAL Notable Medications: Wellbutrin Niferex--hemoglobin was low Benedryl nightly for itching, doesn't make her sleepy Zyrtec, only during seasonal allergies Flovent BID Flonase--only PRN Geodon BID Celexa 40mg daily, takes at night BP meds Physical Exam: Ht 161.3 cm (5' 3.5) Wt 86.2 kg (190 lb) BMI 33.13 kg/m?? General: F, NAD Respirations: Even and not labored at rest, as heard Echocardiogram from 8/22/17 shows LVEF 65% Data Download: Date Range: 12/19-03/18/21 Settin/17cw PB 0.5% Residual AHI: 7.8 declining LEFTY 3.4 OAI 2.8 Vibratory Snore Index: 0 % Night in Large Leak: 1.2% Average usage days used-Hours: 7 hrs 22 minutes # Days of usage: 100% % Days used > 4 hours: 82% Previous Data Download: Date Range: 12/06/19-03/08/20 Settin/17cw PB 0.5% (was 25/21 at last visit) Residual AHI: 5.3 Note: [...] 100% Assessment Ms. Lindsey Carrasco is a 70 y.o. female seen for annual follow up of moderateobstructive sleep apnea on BPAP therapy. Her daughter Sammi helped her get on the video. Pressures still well tolerated at BPAP 25/17cw. AHI mildly elevated but declining, r/t LEFTY and OAI.PB has declined. Total usage excellent, decline in use > 4 hours. Mild change in EPAP today to reduce PS and potentially centrals that show up on download. Weight at 2017 BPAP titration was 214lbs, trying to lose more weight, at 190lbs today. Reviewed recommendation for repeat BPAP titration study when at goal weight to reassess adequate pressures and oxygenation. Supplies received regularly from [facility] but takes awhile to get them. Had a SoClean question, suggested she call [facility]. Plan/all recommendations below. Total time spent via telehealth with patient including charting, notes review, data download analysis, counseling and recommendations: 20 minutes Recommendations: --Order for BPAP 25/18cw, order to [facility] --Call DME company ([employer]) for questions on machine, supply replacements, billing --Adjust mask straps nightly while laying down with machine on, just to snug, for best fit; do not overtighten as it can cause discomfort and greater mask leak --If dry mouth: 1) adjust humidity up and/or heated tube temperature down, 2) consider over the counter Biotene mouth rinse, spray, or gel, 3) consider adding room humidifier --If nasal congestion: 1) Try adjusting PAP humidity level, 2) Consider OTC saline nasal spray: 2 sprays per nostril twice daily, before affixing mask in evening and after removing mask in morning, and/or 3) consider nasal saline wash at night before affixing mask, and/or 4) consider over the counter nasal steroid spray --Driving safety reviewed --Follow up one year with [place], knows to call sooner if needed; staff will call to schedule The patient indicates understanding of these issues and agrees with the plan. Alley Johnson APRN documented in this encounter Plan of Treatment Upcoming Encounters Date Type Department Care Team (Late st Contact Info) Description 02/06/2025 2:40 PM EDT Office Visit Cardiology at [address] [place] [address] Rigoberto Diaz MD [facility] [place] [address] Scheduled Procedures Name Priority Associated Diagnoses Date/Ti me EGD, UPPER GI ENDOSCOPY (WRV U 2.09) Incontinence of feces, unspecified fecal incontinence type Dysphagia, unspecified type COLONOSCOPY, DIAGNOSTIC (WRV U 3.26) Incontinence of feces, unspecified fecal incontinence type Dysphagia, unspecified type documented as of this encounter Visit Diagnoses Diagnosis CHEMA treated with BiPAP documented in this encounter Care Teams Fuse Cutter Relationship Specialty Start Date End Date Vanita Churchill APRN PCP - General Family Medicine 02/27/19 documented as of this encounter
--- OUTSIDE RECORDS SUMMARY | 2024-06-14 01:47 | XMS_ITS | Encounter Summary ---
[place] [address] Care Team Providers Care Senior Android Developer Name Role Phone Kwesidominguez Vanita Dominguez SPARROW Primary Care Provider [phone] Reason for Referral * Diagnostic Test (Routine) - Closed Specialty Diagnoses / Procedures Referred By Emy t Referred To Contact Diagnoses Stenosis of right carotid artery Procedures Carotid Duplex, Bilateral Prerna Denise MD [facility] [place] [address] [facility] [address] [place] [phone] Referral ID Status Reason Start Date Expiration Date V isits Requested Visits Authorized [id number] Closed Specialty Service Requested 07/12/2021 07/12/2022 1 1 * Diagnostic Test (Routine) - Closed Specialty Diagnoses / Procedures Referred By Emy castillo Referred To Contact Diagnoses PAD (peripheral artery disease) Intermittent claudication Procedures MARIYA, legs, multiple levels Prerna Denise MD [facility] [place] [address] [facility] [address] [address] Referral ID Status Reason Start Date Expiration Date V isits Requested Visits Authorized [id number] Closed Specialty Service Requested 07/12/2021 07/12/2022 1 1 Encounter Details Date Type Department Care Team (Late st Contact Info) Description 07/12/2021 Orders Only [place] [phone] Deborah Villegas, RAHUL Stenosis of right carotid artery; PAD (peripheral [...] 2:40 PM EDT Office Visit Cardiology at [address] [address] Rigoberto Diaz MD [facility] [place] [address] Scheduled Procedures Name Priority Associated Diagnoses Date/Ti me EGD, UPPER GI ENDOSCOPY (WRV U 2.09) Incontinence of feces, unspecified fecal incontinence type Dysphagia, unspecified type COLONOSCOPY, DIAGNOSTIC (WRV U 3.26) Incontinence of feces, unspecified fecal incontinence type Dysphagia, unspecified type documented as of this encounter Results * Carotid Duplex, Bilateral (07/15/2022 9:29 AM EDT) VB Text Report Department: Vascular Surgery Lab Patient: [id number] (LINDSEY MEHTA) CPT: 51763 Referring Physician: PRERNA DENISE ?? Phone: Indications: 71 year old female [...] ? 102 ?? 1.00 Electronically Signed by: OZIELTyrese FARAH on 2022-07-15 01:56:49 PM [facility] VB Text Report End of Report [facility] 07/15/2022 9:29 AM EDT Prerna Denise MD [facility] * MARIYA, legs, multiple levels (07/15/2022 9:29 AM EDT) VB Text Report Department: Vascular Surgery Lab Patient: [id number] (MEHTA, LINDSEY) CPT: 17880 Referring Physician: PRERNA DENISE ?? Phone: Indications: 71 year old female [...] of Report [facility] 07/15/2022 9:29 AM EDT Prerna Denise MD [facility] documented in this encounter Visit Diagnoses Diagnosis Stenosis of right carotid artery Occlusion and stenosis of carotid artery without mention of cerebral infarction PAD (peripheral artery disease) Peripheral vascular disease, unspecified Intermittent claudication Peripheral vascular disease, unspecified documented in this encounter Care Teams Senior Android Developer Relationship Specialty Start Date End Date Vanita Churchill, HOP STRAINER PCP - General Family Medicine 02/27/19 documented as of this encounter
--- OUTSIDE RECORDS SUMMARY | 2024-06-14 01:47 | XMS_ITS | Encounter Summary ---
[place] [address] Care Team Providers Care Caregiver Services Home Name Role Phone KwesiVanita mix Omar SPARROW Primary Care Provider [phone] Encounter Details Date Type Department Care Team (Late st Contact Info) Description 07/12/2021 2:00 PM EDT Office [place] [phone] Prerna Harmon MD [facility] [place] [address] PVD (peripheral vascular disease) with claudication; Stenosis of right carotid artery Social History [...] Sign Reading Time Taken Comments Blood Pressure 134/57 07/12/2021 1:58 PM EDT Pulse 75 07/12/2021 1:57 PM EDT Temperature - - Respiratory Rate - - Oxygen Saturation - - Inhaled Oxygen Concentration - - Weight 84.8 kg (187 lb) 07/12/2021 1:57 PM EDT r eported Height 160 cm (5' 3) 07/12/2021 1:57 PM EDT rep orted Body Mass Index 33.13 07/12/2021 1:57 PM EDT documented in this encounter Progress Notes * Prerna Harmon MD - 07/12/2021 2:00 PM EDT OUTPATIENT VASCULAR SURGERY FOLLOW-UP Reason for Visit: carotid stenosis, PAD History of Present Illness: Lindsey Mehta is a 70 y.o. female here for follow-up evaluation ofher carotid stenosis and PAD. She has h/o L iliofemoral endarterectomy, B TRE stent placement (8x38mm BE) for short distance claudication in 2016 and more recently R CEA for asymptomatic stenosis in May 2019. She takes ASA and Crestor. She denies any sx of TIA or CVA. She also denies any sx of claudication. Atherosclerotic Risk Factors: (n) DM (y) HTN (n) CAD (n) CHF (y) Hyperlipidemia (n) CVA reports that she quit smoking about 16 years ago. Her smoking use included cigarettes. [...] Carotid stenosis I65.29 Current Outpatient Medications: ??? nystatin (MYCOSTATIN) Powder, Apply topically 4 times daily., Disp: , Rfl: ??? buPROPion SR (Wellbutrin SR) 150 mg tablet sustained-release 12 hr, Take by mouth., Disp: , Rfl: ??? nystatin (MYCOSTATIN) Cream, Apply topically., Disp: , Rfl: ??? hydrocortisone 1 % Cream, Apply topically., Disp: , Rfl: ??? guaiFENesin ER (Mucinex) 600 mg Tablet Extended Release 12hr, Take by mouth., Disp: , Rfl: ??? diclofenac (VOLTAREN) 1 % Gel, Apply [...] unit Tablet, Take 1 tablet by mouth daily., Disp: , Rfl: ??? acetaminophen (TYLENOL) 325 [...] times daily., Disp: , Rfl: ??? cetirizine (ZYRTEC) 10 mg Tablet, Take 10 mg by [...] Negative for Thrombosis, Bleeding Disorders Physical Exam: BP 134/57 (BP Location (NBP): Left arm, Patient Position: Sitting, BP Cuff Sizes: Adult (25-34 cm)) Pulse 75 Ht 160 cm (5' 3) Comment: reported Wt 84.8 kg (187 lb) Comment: reported BMI 33.13 kg/m?? General - NAD, appears stated age Neuro - Alert and Oriented, Motor Sensory grossly intact Skin - No prominent markings or lesions Ear, Nose, Throat - No masses, No lesions, well healed R cervical incision Cardiac - RRR, II/ JERZY Lungs - Clear Abd - Soft, NT, ND, No palpable pulsatile masses Musculoskeletal- full ROM upper and lower extremities Psych- alert oriented X3 Extremities - Warm, pink, no edema, brisk capillary refill Vascular Exam: R L Carotid 2/2 bruit (n) 2/2 bruit (n) Radial 2/2 2/2 Femoral 2/2 2/2 Popliteal 0/2 0/2 DP 0/2 0/2 PT 0/2 0/2 Labs: Recent Results (from the past 72 hour(s)) Carotid Duplex, Bilateral Result Value Ref Range VB Text Report Department: Vascular Surgery Lab Patient: [id number] ([facility]) CPT: 57219 ICD10: I73.9;I65.23;I65.21 Referring Physician: DOROTA MCKEON MD Phone: Indications: Patient with h/o carotid stenosis and right CEA, ? change ICD10 Diagnosis Code: I73.9, I65.21 Findings: ICA Proximal, Right PSV (cm/s): 125 EDV (cm/s): 27 ICA/CCA: 1.2 Plaque Structure: Echogenic Plaque Surface: Smooth %Stenosis: 16-49% ICA Distal, Right PSV (cm/s): 127 EDV (cm/s): 22 ICA/CCA: 1.2 CCA Distal, Right PSV (cm/s): 102 EDV (cm/s): 21 %Stenosis: Minimal CCA Proximal, Right PSV (cm/s): 108 EDV (cm/s): 0 External Carotid Artery, Right PSV (cm/s): 208 EDV (cm/s): 13 %Stenosis: >50% Vertebral, Right PSV (cm/s): 100 EDV (cm/s): 16 Direction of Flow: Antegrade ICA Proximal, Left PSV (cm/s): 100 EDV (cm/s): 21 ICA/CCA: 0.9 Plaque Structure: Echogenic Plaque Surface: Irregular %Stenosis: 16-49% ICA Distal, Left PSV (cm/s): 82 EDV (cm/s): 19 ICA/CCA: 0.7 CCA Distal, Left PSV (cm/s): 113 EDV (cm/s): 17 %Stenosis: Minimal CCA Proximal, Left PSV (cm/s): 89 EDV (cm/s): 16 External Carotid Artery, Left PSV (cm/s): 226 EDV (cm/s): 15 %Stenosis: >50% Vertebral, Left PSV (cm/s): 48 EDV (cm/s): 16 Direction of Flow: Antegrade Interpretation: RIGHT: A [...] of the exam when compared to 07/02/2020. LEF T: A thin layer of circumferential plaque is present in the common carotid artery causing minimal stenosis. There is bulky irregular plaque in the bifurcation/proximal internal carotid artery causing 16-49% stenosis when [...] n/a <15% 131 2.00 16-49% 102 1.00 Current Exam 16-49% 125 1.20 16-49% 100 0.90 VB Text Report End of Report MARIYA, legs, multiple levels Result Value Ref Range VB Text Report Department: Vascular Surgery Lab Patient: [id number] (YAMIL MEHTA CPT: 09011 ICD10: I73.9;I70.213;I65.21 Referring Physician: DOROTA MCKEON MD Phone: Indications: Patient with h/p PVD, ? change in MARIYA Diabetes mellitus: No ICD10 Diagnosis Code: I73.9, I65.21 Findings: Right Pressure (mm Hg) MARIYA Waveform Brachial Artery 118 Dorsalis Pedis (Ankle) Artery 101 0.86 Bi-Triphasic Posterior Tibial (Ankle) Artery 102 0.86 Bi-Triphasic Left Pressure (mm Hg) MARIYA Waveform Brachial Artery 114 Dorsalis Pedis (Ankle) Artery 76 0.64 Bi-Triphasic Posterior Tibial (Ankle) Artery 83 0.70 Bi-Triphasic Interpretation: RIGHT: Mild lower extremity arterial occlusive disease. No i dentifiable change when compared to the previous exam [...] 0.91(+.01) ---- ---- 0.92(+.03) 0.85(-.06) ---- ---- Current 0.86(-.06) 0.86(+.01) ---- ---- Date LEFT DP LEFT PT LT GR TOE LT Sec TOE 0.48 0.68 ---- ---- 0.80(+.32) 0.84(+.16) ---- ---- 0.80( .00) 0.85(+.01) ---- ---- 0.87(+.07) 0.89(+.04) ---- ---- 0.88(+.01) 0.88(-.01) ---- ---- Current 0.64(-.24) 0.70(-.18) ---- ---- VB Text Report End of Report Studies: No flowsheet data found. Assessment and Plan: 70 y.o. female with h/o L iliofemoral endarterectomy, B TRE stent placement for claudication in 2016 and more recently R CEA for asymptomatic stenosis in May 2019, doing well. Continue ASA and Crestor. Follow-up in 1 year with repeat MARIYA and carotid duplex. documented in this encounter Plan of Treatment Upcoming Encounters Date Type Department Care Team (Late st Contact Info) Description 02/06/2025 2:40 PM EDT Office Visit Cardiology at [address] [place] [address] Rigoberto Diaz MD [facility] [place] [address] Scheduled Procedures Name Priority Associated Diagnoses Date/Ti me EGD, UPPER GI ENDOSCOPY (WRV U 2.09) Incontinence of feces, unspecified fecal incontinence type Dysphagia, unspecified type COLONOSCOPY, DIAGNOSTIC (WRV U 3.26) Incontinence of feces, unspecified fecal incontinence type Dysphagia, unspecified type documented as of this encounter Visit Diagnoses Diagnosis PVD (peripheral vascular disease) with claudication Peripheral vascular disease, unspecified Stenosis of right carotid artery Occlusion and stenosis of carotid artery without mention of cerebral infarction documented in this encounter Care Teams Caregiver Services Home Relationship Specialty Start Date End Date Vanita Churchill APRN PCP - General Family Medicine 02/27/19 documented as of this encounter
--- OUTSIDE RECORDS SUMMARY | 2024-06-14 01:47 | XMS_ITS | Encounter Summary ---
Author Organization [facility] [place] [address] Care Team Providers Care Epic Beacon Analyst Name Role Phone Vanita Churchill KYARA Primary Care Provider [phone] Encounter Details Date Type Department Care Team (Latest Contact Info) Description 02/09/2023 10:15 AM EDT Laboratory Appointment Lab [address] [place] [phone] Aortic valve stenosis, etiology of cardiac valve [...] 2:40 PM EDT Office Visit Cardiology at [address] [place] [phone] Rigoberto Diaz MD [facility] [place] [address] Scheduled Procedures Name Priority Associated Diagnoses Date/Ti me EGD, UPPER GI ENDOSCOPY (WRV U 2.09) Incontinence of feces, unspecified fecal incontinence type Dysphagia, unspecified type COLONOSCOPY, DIAGNOSTIC (WRV U 3.26) Incontinence of feces, unspecified fecal incontinence type Dysphagia, unspecified type documented as of this encounter Procedures Procedure Name Priority Date/Time Associated Diagnosis Comments HEMOGRAM Routine 02/09/2023 10:09 AM EDT Aortic valve stenosis, etiology of cardiac valve disease unspecified DIFFERENTIAL, AUTOMATED Routine 02/09/2023 10:09 AM EDT Aortic valve stenosis, etiology of cardiac valve disease unspecified HC CBC,PLT & AUTO DIFF Routine 10:09 AM EDT Aortic valve stenosis, etiology of cardiac valve disease unspecified COMPREHENSIVE METABOLIC PANEL (NON-FASTING) Routine 02/09/2023 10:09 AM EDT Aortic valve stenosis, etiology of cardiac valve disease unspecified documented in this encounter Results * (ABNORMAL) Differential, Automated (02/09/2023 10:09 AM EDT) Neutrophils % 67.5 % [facility] Neutr Abs (ANC) 7.46(H) 1.70 - 6.10 x10(3)/mc L [facility] Lymphocytes % 18.8 % [facility] Lymphocytes Abs 2.1 0.9 - 3.2 x10(3)/mc L [facility] Monocytes % 10.9 % [facility] Monocyte Abs 1.2(H) 0.3 - 0.9 x10(3)/mc L [facility] Eosinophils % 1.9 % [facility] Eosinophils Abs 0.2 0.0 - 0.4 x10(3)/mc L [facility] Basophils % 0.4 % [facility] Basophils Abs 0.0 0.0 - 0.1 x10(3)/mc L [facility] Immature Gran % 0.50 % [facility] Comment: Immature granulocytes(IG's)percentage and absolute count will include metamyelocytes, myelocytes, and promyelocytes. Blood smears from CBCs yielding IG's will be scanned manually for concordance. If this scan disagrees with the automated IG or if promyelocytes are noted, a manual differential will be performed. [place] Gran Abs 0.05(H) 0.00 - 0.04 x10(3)/mc L [facility] Blood 02/09/2023 10:0 9 AM EDT 02/09/2023 10:15 AM EDT Narrative Resulting Agency Comment Spec In Lab Gregorio Goodman MD HEMATOLOGY ORDERABLE S [facility] [place] [address] * (ABNORMAL) Hemogram (02/09/2023 10:09 AM EDT) WBC 11.0(H) 4.0 - 9.5 x10(3)/[facility] RBC 3.21(L) 4.00 - 5.21 x10(6)/[facility] Hemoglobin 10.5(L) 11.7 - 15.5 g/dL [facility] Hematocrit 32.5(L) 35.7 - 45.8 % [facility] MCV 101.2(H) 82.6 - 94.4 fL [facility] MCH 32.7(H) 27.1 - 32.0 pg [facility] MCHC 32.3 31.7 - 35.0 g/dL [facility] Platelets 311 145 - 357 x10(3)/[facility] RDWSD 47.9(H) 37.0 - 46.0 [facility] RDWCV 12.9 11.5 - 14.1 % [facility] MPV 9.4 7.6 - 12.9 [facility] nRBC % Auto 0.0 % [facility] nRBC Abs Auto 0.000 0.000 - 0.000 x10(3)/mcL [facility] Blood 02/09/2023 10:0 9 AM EDT 02/09/2023 10:15 AM EDT Narrative Resulting Agency Comment Spec In Lab Gregorio Goodman MD HEMATOLOGY ORDERABLE S [facility] [place] [address] * (ABNORMAL) Comprehensive metabolic panel (non-fasting) (02/09/2023 10:09 AM EDT) Glucose Lvl 86 65 - 199 mg/dL [facility] Comment:Diabetes: >=200 mg/d L plus symptoms BUN 19(H) 8 - 18 mg/dL [facility] Creatinine 1.00 0.70 - 1.20 mg/dL [facility] Sodium 138 135 - 145 mmol/L [facility] Potassium 4.0 3.5 - 5.0 mmol/L [facility] Comment: Please note: ??Patients with WBC >100,000 may have falsely elevated Potassium levels. ??For accurate Potassium quantification in these patients send serum separator tube (gold top) for subsequent determinations. ??Contact the Clinical Chemistry Laboratory if there are any questions. Chloride 103 98 - 107 mmol/L [facility] CO2 24 22 - 31 mmol/L [facility] Anion Gap 11 5 - 15 mmol/L [facility] Calcium 9.1 8.5 - 10.5 mg/dL [facility] Total Protein 7.2 6.1 - 8.0 g/dL [facility] Albumin 4.1 3.2 - 5.2 g/dL [facility] AST 16 0 - 30 unit/L [facility] ALT 14 0 - 30 unit/L [facility] Alk Phos 70 35 - 105 unit/L [facility] Total Bilirubin 0.3 0.2 - 1.3 mg/dL [facility] Estimated GFR 59(L) >=60 mL/min/1. 73 m?? [facility] Comment: This patient's estimated GFR [...] In Lab Gregorio Goodman MD CHEMISTRY ORDERABLES [facility] [place] [address] documented in this encounter Visit Diagnoses Diagnosis Aortic valve stenosis, etiology of cardiac valve disease unspecified documented in this encounter Care Teams Epic Beacon Analyst Relationship Specialty Start Date End Date Vanita Churchill APRN PCP - General Family Medicine 02/27/19 documented as of this encounter
--- OUTSIDE RECORDS SUMMARY | 2024-06-14 01:48 | XMS_ITS | Encounter Summary ---
[place] [address] Care Team Providers Care Vice President Of Finance Name Role Phone Kwesidominguez Vanita Nelson APRN Primary Care Provider [phone] Reason for Referral * Diagnostic Test (Routine) - Closed Specialty Diagnoses / Procedures Referred By Contsky t Referred To Contact Radiology Diagnoses Stenosis of carotid artery, unspecified laterality Procedures CT Angiogram Carotids & [place] Prerna Harmon MD [facility] [place] [address] [facility] [place] [address] Referral ID Status Reason Start Date Expiration Date V isits Requested Visits Authorized [id number] Closed Specialty Service Requested 05/21/2019 05/20/2020 1 1 Reason for Visit * Diagnostic Test (Routine) - Closed Specialty Diagnoses / Procedures Referred By Emy castillo Referred To Contact Radiology Diagnoses Stenosis of carotid artery, unspecified laterality Procedures CT Angiogram Carotids & [place] Prerna Harmon MD [facility] [place] [address] [facility] [place] [address] Referral ID Status Reason Start Date Expiration Date V isits Requested Visits Authorized [id number] Closed Specialty Service Requested 05/21/2019 05/20/2020 1 1 Encounter Details Date Type Department Care Team (Latest Contact Info) Description 05/23/2019 2:28 PM EDT - 05/23/2019 4:39 PM EDT Hospital [place] [address] Prerna Harmon MD [facility] [place] [place] [address] Stenosis of carotid artery, unspecified laterality Discharge Disposition: Home Social History Tobacco Use [...] (Mycostatin) Cream Three times a day 03/21/2014 cholecalciferol, vitamin D3, (D3-2000 ORAL) Take by [...] 2 times daily. FOLIC ACID ORAL 10/12/2010 nystatin (MYCOSTATIN) Cream Apply topically. 03/21/2014 03/08/2023 UNABLE TO FIND Fortifeye 03/08/2023 calcium-vitamin D 500 mg(1,250mg) -200 unit Tablet Take 1 tablet by mouth daily. 600 mg BID 03/01/2023 acetaminophen (TYLENOL) 325 mg Tablet Take 650 mg by mouth every 4 hours as needed for Pain. 03/01/2023 citalopram (CELEXA) 40 mg Tablet Take 20 mg by mouth daily. 11/23/2023 KRILL OIL ORAL Take 1,000 mg by mouth daily. 03/19/2021 fluticasone (FLOVENT) 110 mcg/actuation HFA Aerosol Inhaler Inhale 1 puff into the lungs 2 times daily. flovent diskus 11/23/2023 hydroCHLOROthiazide (MICROZIDE) 12.5 mg Capsule Take 12.5 mg by mouth daily. 03/19/2021 levothyroxine (SYNTHROID) 50 mcg TabletIndications:hypot hyroidism Take 50 mcg by mouth daily. Indications: Hypothyroidism 10/11/2022 fluticasone (FLONASE) 50 mcg/actuation [place], SuspensionIndications:S easonal allergic rhinitis 2 sprays by Each Nare route daily as needed for Rhinitis. 16 g 3 05/03/2016 03/19/2021 POLYETHYLENE GLYCOL 3350 (MIRALAX ORAL) Take by mouth as needed. 02/05/2024 documented as of this encounter Plan of Treatment Upcoming Encounters Date Type Department Care Team (Late st Contact Info) Description 02/06/2025 2:40 PM EDT Office Visit Cardiology at [address] [place] [address] Rigoberto Diaz MD [facility] [place] [address] Scheduled Procedures Name Priority Associated Diagnoses Date/Ti me EGD, UPPER GI ENDOSCOPY (WRV U 2.09) Incontinence of feces, unspecified fecal incontinence type Dysphagia, unspecified type COLONOSCOPY, DIAGNOSTIC (WRV U 3.26) Incontinence of feces, unspecified fecal incontinence type Dysphagia, unspecified type documented as of this encounter Procedures Procedure Name Priority Date/Time Associated Diagnosis Comments CT CAROTIDS AND [place] W CONTRAST Routine 05/23/2019 3:55 PM EDT Stenosis of carotid artery, unspecified laterality documented in this encounter Results * CT Angiogram Carotids & [place] (05/23/2019 3:55 PM EDT) Anatomical Region Laterality Modality Neck, Head Computed Tomogra phy Impressions 05/24/2019 10:01 AM EDT CTA NECK: 1. ??Severe, near occlusive stenosis in the proximal aspect of the right carotid bulb. 2. ??No additional significant stenosis throughout the neck. CTA HEAD: No significant arterial abnormality. I discussed the result #1 with Prerna Faustino on 05/24/2019 at 10:01 AM and verified that she understood these results. Thank you for letting us participate in the care of this patient. For questions regarding this report, please contact the number below. ? Electronically signed by: Eugenie Calvert [facility] ([phone]), at 05/24/2019 10:01 AM Narrative 05/24/2019 10:01 AM EDT EXAMINATION: CT ANGIOGRAM CAROTIDS AND [place] OF ARENAS CLINICAL HISTORY: Carotid Disease TECHNIQUE: CTA of the head and neck performed after the intravenous administration contrast. Administered 65.0 ml of OMNIPAQUE 350.00 mg/ml. MIP and 3-D volumetric reconstructions were created. COMPARISON: None FINDINGS: CTA head: No aneurysm, vascular malformations, significant arterial stenosis, cut off, or other significant arterial abnormality. CT neck: There is a severe, near occlusive focal stenoses in the proximal aspect of the right carotid bulb. Mild stenoses, less than 50%, at the origins of the vertebral arteries and at the left carotid bifurcation. Mild atherosclerotic calcifications are also seen at the origins of the brachiocephalic artery, the left common carotid artery, and the left subclavian artery without significant stenosis. Chronic left maxillary sinusitis with associated wall thickening and mild mucosal thickening. Mild emphysematous changes at the lung apices. Degenerative changes are seen throughout the cervical spine. Procedure Note Eugenie Calvert MD - 05/24/2019 EXAMINATION: CT ANGIOGRAM CAROTIDS AND [place] OF ARE[place] CLINICAL HISTORY: Carotid Disease TECHNIQUE: CTA of the head and neck performed after the intravenous administration contrast. Administered 65.0 ml of OMNIPAQUE 350.00 mg/ml. MIP and 3-Dvolumetric reconstructions were created. COMPARISON: None FINDINGS: CTA head: No aneurysm, vascular malformations, significant arterial stenosis, cutoff, or other significant arterial abnormality. CT neck: There is a severe, near occlusive focal stenoses in the proximal aspect ofthe right carotid bulb. Mild stenoses, less than 50%, at the origins of the vertebral arteries andat the left carotid bifurcation. Mild atherosclerotic calcifications are alsoseen at the origins of the brachiocephalic artery, the left common carotidartery, and the left subclavian artery without significant stenosis. Chronic left maxillary sinusitis with associated wall thickening andmild mucosal thickening. Mild emphysematous changes at the lung apices. Degenerative changes are seen throughout the cervical spine. IMPRESSION CTA NECK: 1. Severe, near occlusive stenosis in the proximal aspect of the rightcarotid bulb. 2. No additional significant stenosis throughout the neck. CTA HEAD: No significant arterial abnormality. I discussed the result #1 with Prerna Harmon on 05/24/2019 at 10:01AM and verified that she understood these results. Thank you for letting us participate in the care of this patient. Forquestions regarding this report, please contact the number below. Electronically signed by: Eugenie Calvert [facility] ([phone]),at 05/24/2019 10:01 AM Prerna Harmon MD IMG CT ORDERABL ES documented in this encounter Visit Diagnoses Diagnosis Stenosis of carotid artery, unspecified laterality documented in this encounter Administered Medications Inactive Administered Medications - up to 3 most recent administrations Medication Order MAR Action Action Date Dose Rate Site iohexol (OMNIPAQUE) 350 mg/mL solution 0-200 mL 0-200 mL, Intravenous, ONCE PRN, 1 dose, Starting on Tracey 05/23/19 at 1557, Until Tracey 05/23/19 at 1557, Per Protocol, Warning Vesicant/Irritant Medication , Radiology Contrast, Routine Given 05/23/2019 3:57 PM EDT 65 mLs documented in this encounter Care Teams Vice President Of Finance Relationship Specialty Start Date End Date Vanita Churchill, [employer] PCP - General Family Medicine 02/27/19 documented as of this encounter
--- OUTSIDE RECORDS SUMMARY | 2024-06-14 01:48 | XMS_ITS | Encounter Summary ---
Author Organization [facility] [place] [address] Care Team Providers Care Hotel Guest Service Agent Name Role Phone Vanita Churchill CRYSTAL FINISHER Primary Care Provider [phone] Encounter Details Date Type Department Care Team (Late st Contact Info) Description 06/13/2019 11:00 AM EDT Tech [place] [address] [place], [place] Stenosis of right carotid artery Social History [...] 2:40 PM EDT Office Visit Cardiology at [address] [place] [phone] Rigoberto Diaz MD [facility] [place] [address] Scheduled Procedures Name Priority Associated Diagnoses Date/Ti me EGD, UPPER GI ENDOSCOPY (WRV U 2.09) Incontinence of feces, unspecified fecal incontinence type Dysphagia, unspecified type COLONOSCOPY, DIAGNOSTIC (WRV U 3.26) Incontinence of feces, unspecified fecal incontinence type Dysphagia, unspecified type documented as of this encounter Visit Diagnoses Diagnosis Stenosis of right carotid artery Occlusion and stenosis of carotid artery without mention of cerebral infarction documented in this encounter Care Teams Hotel Guest Service Agent Relationship Specialty Start Date End Date Vanita Churchill, KYARA PCP - General Family Medicine 02/27/19 documented as of this encounter
--- OUTSIDE RECORDS SUMMARY | 2024-06-14 01:48 | XMS_ITS | Encounter Summary ---
[place] [address] Care Team Providers Care [facility] Medical Biller Name Role Phone KwesiVanita mix Omar SPARROW Primary Care Provider [phone] Encounter Details Date Type Department Care Team (Late st Contact Info) Description 07/03/2020 Telephone [place] [phone] Emerita Estes Social History Tobacco Use Types Packs/Day Years [...] encounter Miscellaneous Notes * Telephone Encounter - Emerita Estes - 07/03/2020 9:05 AM EDT Per email message from Dr Montaño: Can you please reschedule unseen clinic patients from today as telephone visits for next 07/06/20. They can be scheduled every 20 minutes from 10am until noon. I believe there were 7 patients - Carley can help identify who these patients are. Thank you, J LMX1 documented in this encounter Plan of Treatment Upcoming Encounters Date Type Department Care Team (Late st Contact Info) Description 02/06/2025 2:40 PM EDT Office Visit Cardiology at [address] [address] Rigoberto Diaz MD [facility] [place] [address] Scheduled Procedures Name Priority Associated Diagnoses Date/Ti me EGD, UPPER GI ENDOSCOPY (WRV U 2.09) Incontinence of feces, unspecified fecal incontinence type Dysphagia, unspecified type COLONOSCOPY, DIAGNOSTIC (WRV U 3.26) Incontinence of feces, unspecified fecal incontinence type Dysphagia, unspecified type documented as of this encounter Visit Diagnoses Not on filedocumented in this encounter Care Teams [facility] Medical Biller Relationship Specialty Start Date End Date Vanita Churchill, LEAD CYTOGENETIC TECHNOLOGIST PCP - General Family Medicine 02/27/19 documented as of this encounter
--- OUTSIDE RECORDS SUMMARY | 2024-06-14 01:48 | XMS_ITS | Encounter Summary ---
Author Organization [facility] [place] [address] Care Team Providers Care Fence Rider Name Role Phone Vanita Churchill KYARA Primary Care Provider [phone] Encounter Details Date Type Department Care Team (Late st Contact Info) Description 05/03/2019 Orders Only Vascular Surgery at [facility] [place] [phone] Marziol Batres RN Stenosis of carotid artery, unspecified laterality Social History Tobacco Use Types Packs/Day Years Used Date Smoking Tobacco: Former Cigarettes 3.5 50 1 [birth year]/21/1953 - 10/21/2004 Smokeless Tobacco: Never Alcohol Use Standard Drinks/Week Comments No 0 (1 standard drink = 0.6 oz pur e alcohol) Sex and Gender Information Value Date Recorded Sex Assigned at Not on file Gender Identity Not on file Sexual Orientation Not on file documented as of this encounter Plan of Treatment Upcoming Encounters Date Type Department Care Team (Late st Contact Info) Description 02/06/2025 2:40 PM EDT Office Visit Cardiology at [address] [phone] Rigoberto Diaz MD [facility] [place] [id number] Scheduled Procedures Name Priority Associated Diagnoses Date/Ti me EGD, UPPER GI ENDOSCOPY (WRV U 2.09) Incontinence of feces, unspecified fecal incontinence type Dysphagia, unspecified type COLONOSCOPY, DIAGNOSTIC (WRV U 3.26) Incontinence of feces, unspecified fecal incontinence type Dysphagia, unspecified type documented as of this encounter Results * Carotid Duplex, Bilateral (05/21/2019 10:22 AM EDT) VB Text Report Department: Vascular Surgery Lab Patient: [id number] (LINDSEY FIGUEREDO) CPT: 94791 ICD10: I65.29 Referring Physician: STEPHEN ESPINOSA ?? Indications: ??Carotid disease by OSH, ? degree of stenosis ICD10 Diagnosis Code: I65.29 Findings: ICA Proximal, Right ? PSV (cm/s): 514 ? EDV (cm/s): 156 ? ICA/CCA: 8.0 ? Plaque Structure: Echogenic ? Plaque Surface: Irregular ? %Stenosis: 80-99% ICA Distal, Right ? PSV (cm/s): 49 ? EDV (cm/s): 17 ? ICA/CCA: 0.8 CCA Distal, Right ? PSV (cm/s): 64 ? EDV (cm/s): 13 ? %Stenosis: Minimal CCA Proximal, Right ? PSV (cm/s): 103 ? EDV (cm/s): 10 External Carotid Artery, Right ? PSV (cm/s): 132 ? EDV (cm/s): 16 ? %Stenosis: <50% Vertebral, Right ? PSV (cm/s): 63 ? EDV (cm/s): 14 ? Direction of Flow: Antegrade ICA Proximal, Left ? PSV (cm/s): 88 ? EDV (cm/s): 24 ? ICA/CCA: 1.2 ? Plaque Structure: Echogenic ? Plaque Surface: Irregular ? %Stenosis: 16-49% ICA Distal, Left ? PSV (cm/s): 75 ? EDV (cm/s): 25 ? ICA/CCA: 1.0 CCA Distal, Left ? PSV (cm/s): 73 ? EDV (cm/s): 21 ? %Stenosis: Minimal CCA Proximal, Left ? PSV (cm/s): 69 ? EDV (cm/s): 16 External Carotid Artery, Left ? PSV (cm/s): 154 ? EDV (cm/s): 24 ? %Stenosis: <50% Vertebral, Left ? PSV (cm/s): 64 ? EDV (cm/s): 16 ? Direction of Flow: Antegrade Interpretation: RIGHT: There is bulky irregular (possibly ulcerated) plaque in the carotid bifurcation and proximal internal carotid artery causing 80-99% ICA stenosis based on velocity criteria. The bifurcation level is in the mid neck. LEFT: There is bulky irregular plaque in the carotid bifurcation and proximal internal carotid artery causing 16-49% stenosis when compared to the more distal internal carotid artery. The bifurcation level is in the mid neck. Vertebral Artery Data: Patent vertebral arteries with normal antegrade Doppler waveforms and velocities bilaterally. Comparison: ??No previous study in our vascular lab database for comparison. Electronically Signed by: MEGHNA DENISE on 2019-05-22 01:26:06 PM [facility] VB Text Report End of Report [facility] 05/21/2019 10:2 2 AM EDT Stephen Espinosa MD VASCULAR ORDERABLES [facility] documented in this encounter Visit Diagnoses Diagnosis Stenosis of carotid artery, unspecified laterality documented in this encounter Care Teams Fence Rider Relationship Specialty Start Date End Date Vanita Churchill APRN PCP - General Family Medicine 02/27/19 documented as of this encounter
--- OUTSIDE RECORDS SUMMARY | 2024-06-14 01:48 | XMS_ITS | Encounter Summary ---
Author Organization [facility] [place] [address] Care Team Providers Care Recruitment Assistant Name Role Phone Vanita Churchill KYARA Primary Care Provider [phone] Encounter Details Date Type Department Care Team (Late st Contact Info) Description 07/16/2019 Orders [place] [address] Deborah Villegas, SKELP PROCESSOR Bilateral carotid artery stenosis Social History Tobacco Use Types Packs/Day [...] PM EDT Office Visit Cardiology at [address] [address] Rigoberto Diaz MD [facility] [place] [id number] Scheduled Procedures Name Priority Associated Diagnoses Date/Ti me EGD, UPPER GI ENDOSCOPY (WRV U 2.09) Incontinence of feces, unspecified fecal incontinence type Dysphagia, unspecified type COLONOSCOPY, DIAGNOSTIC (WRV U 3.26) Incontinence of feces, unspecified fecal incontinence type Dysphagia, unspecified type documented as of this encounter Results * Carotid Duplex, Bilateral (07/02/2020 10:34 AM EDT) VB Text Report Department: Vascular Surgery Lab Patient: [id number] (LINDSEY MEHTA) CPT: 42931 ICD10: I65.23 Referring Physician: DOROTA MONTAÑO MD ?? Phone: Indications: Right CEA, bilateral carotid stenosis, ? progression ICD10 Diagnosis Code: I65.23 Findings: ICA Proximal, Right ? PSV (cm/s): 131 ? EDV (cm/s): 30 ? ICA/CCA: 2.0 ? Plaque Structure: Echogenic ? Plaque Surface: Smooth ? %Stenosis: <15% ICA Distal, Right ? PSV (cm/s): 108 ? EDV (cm/s): 28 ? ICA/CCA: 1.6 CCA Distal, Right ? PSV (cm/s): 67 ? EDV (cm/s): 16 ? %Stenosis: Minimal CCA Proximal, Right ? PSV (cm/s): 95 ? EDV (cm/s): 14 External Carotid Artery, Right ? PSV (cm/s): 145 ? EDV (cm/s): 8 ? %Stenosis: <50% Vertebral, Right ? PSV (cm/s): 91 ? EDV (cm/s): 27 ? Direction of Flow: Antegrade ICA Proximal, Left ? PSV (cm/s): 102 ? EDV (cm/s): 24 ? ICA/CCA: 1.0 ? Plaque Structure: Echogenic ? Plaque Surface: Irregular ? %Stenosis: 16-49% ICA Distal, Left ? PSV (cm/s): 82 ? EDV (cm/s): 26 ? ICA/CCA: 0.8 CCA Distal, Left ? PSV (cm/s): 106 ? EDV (cm/s): 24 ? %Stenosis: Minimal CCA Proximal, Left ? PSV (cm/s): 95 ? EDV (cm/s): 22 External Carotid Artery, Left ? PSV (cm/s): 181 ? EDV (cm/s): 19 ? %Stenosis: <50% Vertebral, Left ? PSV (cm/s): 51 ? EDV (cm/s): 18 ? Direction of Flow: Antegrade Interpretation: RIGHT: There is smooth plaque in the proximal internal carotid artery causing <15% stenosis when compared to the more distal internal carotid artery. The bifurcation level is in the mid neck. No significant change compared to previous exam. LEFT: There is irregular plaque in the proximal internal carotid artery causing 16-49% stenosis when compared to the more distal internal carotid artery. The bifurcation level is in the mid neck. No significant change compared to previous exam. Vertebral Artery Data: Patent vertebral arteries with normal antegrade Doppler waveforms and velocities bilaterally. Previous Carotid Studies: Date ?RIGHT ICA Stenosis ??PSV ?? Ratio ?? LEFT ICA Stenosis ?? PSV ?? Ratio ? 80-99% ? 514 ?? 8.00 ? 16-49% ? 88 ?1.20 ? <15% ? 96 ?1.20 ? n/a ?n/a ?? n/a Current Exam ? <15% ? 131 ?? 2.00 ? 16-49% ? 102 ?? 1.00 Electronically Signed by: DOROTA MONTAÑO MD on 2020-07-06 10:40:15 AM [facility] VB Text Report End of Report [facility] 07/02/2020 10:3 4 AM EDT Dorota Montaño MD VASCULAR ORDERABLES [facility] documented in this encounter Visit Diagnoses Diagnosis Bilateral carotid artery stenosis Occlusion and stenosis of multiple and bilateral precerebral arteries without mention of cerebral infarction documented in this encounter Care Teams Recruitment Assistant Relationship Specialty Start Date End Date Vanita Churchill, CHAIR CAR DRIVER PCP - General Family Medicine 02/27/19 documented as of this encounter
--- OUTSIDE RECORDS SUMMARY | 2024-06-14 01:48 | XMS_ITS | Encounter Summary ---
[place] [address] Care Team Providers Care Light Bulb Replacer Name Role Phone KwesiVanita mix Omar SPARROW Primary Care Provider [phone] Reason for Visit * Reason Onset Date Comments Other 05/22/2019 Encounter Details Date Type Department Care Team (Late st Contact Info) Description 05/22/2019 Telephone [place] [phone] Demetra Alvarez Other Social History Tobacco Use Types Packs/Day Years [...] encounter Miscellaneous Notes * Telephone Encounter - Demetra Alvarez - 05/22/2019 9:55 AM EDT YELLOW/PINK/RECALL LIST: E-mail PROVIDER: Danyel RECALL: Rescheduled CTA for head/neck for Thursday 05/24 followed by an appointment with Dr. Montaño at 10 or 10:30 AM NOTES: LVM - 1X documented in this encounter Plan of Treatment Upcoming Encounters Date Type Department Care Team (Late st Contact Info) Description 02/06/2025 2:40 PM EDT Office Visit Cardiology at [address] [place] [address] Rigoberto Diaz MD [facility] [place] [id number] Scheduled Procedures Name Priority Associated Diagnoses Date/Ti me EGD, UPPER GI ENDOSCOPY (WRV U 2.09) Incontinence of feces, unspecified fecal incontinence type Dysphagia, unspecified type COLONOSCOPY, DIAGNOSTIC (WRV U 3.26) Incontinence of feces, unspecified fecal incontinence type Dysphagia, unspecified type documented as of this encounter Visit Diagnoses Not on filedocumented in this encounter Care Teams Light Bulb Replacer Relationship Specialty Start Date End Date Vanita Churchill, BUSINESS REPORTER PCP - General Family Medicine 02/27/19 documented as of this encounter
--- OUTSIDE RECORDS SUMMARY | 2024-06-14 01:48 | XMS_ITS | Encounter Summary ---
Author Organization [facility] [place] [address] Care Team Providers Care Senior Label Specialist Name Role Phone Vanita Churchill PROFESSIONAL DEVELOPMENT MANAGER Primary Care Provider [phone] Encounter Details Date Type Department Care Team (Late st Contact Info) Description 06/12/2019 Telephone [place] [phone] Lubna Johnston MD [facility] [place] [address] Social History Tobacco Use Types Packs/Day Years [...] encounter Miscellaneous Notes * Telephone Encounter - Lubna Johnston MD - 06/12/2019 6:28 PM EDT Received a call from Natalie Deleon asking if she should use Benadryl for any new rash she had on her chest and neck. Lindsey Deleon is a 68 y.o. female s/p R CEA with patch angioplasty (06/10/19 with [facility]). Upon further discussion, she explained to me that since she woke up from her nap this afternoon, she noticed redness that extended over her carotid incision on either side of the incision as well as the base of her neck and the small portion of her chest. The erythema is not particularly swollen toher. She has not had any drainage from the incision. She is not having fevers or chills. She feels well. She is not complaining of any difficulty breathing. I recommended that she come to clinic tomorrow to be evaluated. She agreed to this and will arrive tomorrow at 11 AM in clinic. I explained to her that if she were to have any fevers, chills, increasing redness, increasing swelling, difficulty breathing, drainage from her incision, increased pain, or any other concerns, to go to the emergency department. Patient understands. documented in this encounter Plan of Treatment Upcoming Encounters Date Type Department Care Team (Late st Contact Info) Description 02/06/2025 2:40 PM EDT Office Visit Cardiology at [address] [address] Rigoberto Diaz MD [facility] [place] [address] Scheduled Procedures Name Priority Associated Diagnoses Date/Ti me EGD, UPPER GI ENDOSCOPY (WRV U 2.09) Incontinence of feces, unspecified fecal incontinence type Dysphagia, unspecified type COLONOSCOPY, DIAGNOSTIC (WRV U 3.26) Incontinence of feces, unspecified fecal incontinence type Dysphagia, unspecified type documented as of this encounter Visit Diagnoses Not on filedocumented in this encounter Care Teams Senior Label Specialist Relationship Specialty Start Date End Date Vanita Churchill APRN PCP - General Family Medicine 02/27/19 documented as of this encounter
--- OUTSIDE RECORDS SUMMARY | 2024-06-14 01:48 | XMS_ITS | Encounter Summary ---
[place] [address] Care Team Providers Care Security Systems Technician Name Role Phone Vanita Churchill ROLL UP GUIDER OPERATOR Primary Care Provider [phone] Encounter Details Date Type Department Care Team (Late st Contact Info) Description 05/23/2019 4:00 PM EDT Clinical [place] [address] Social History Tobacco Use Types Packs/Day Years [...] as of this encounter Progress Notes * Karin Kidd RN - 05/23/2019 4:00 PM EDT PAT questionnaire reviewed with patient while in Pre Admission testing. Pre- operative instruction booklet reviewed. Patient verbalizes a good understanding of all information reviewed. PLAN: Testing: urine and to 3T CXR. Special medication instructions: Procedure date: Pt only needs testing, was in PAT on 05-21 documented in this encounter Plan of Treatment Upcoming Encounters Date Type Department Care Team (Late st Contact Info) Description 02/06/2025 2:40 PM EDT Office Visit Cardiology at [address] [place] [address] Rigoberto Diaz MD [facility] [place] [address] Scheduled Procedures Name Priority Associated Diagnoses Date/Ti me EGD, UPPER GI ENDOSCOPY (WRV U 2.09) Incontinence of feces, unspecified fecal incontinence type Dysphagia, unspecified type COLONOSCOPY, DIAGNOSTIC (WRV U 3.26) Incontinence of feces, unspecified fecal incontinence type Dysphagia, unspecified type documented as of this encounter Visit Diagnoses Not on filedocumented in this encounter Care Teams Security Systems Technician Relationship Specialty Start Date End Date Vanita Churchill APRN PCP - General Family Medicine 02/27/19 documented as of this encounter
--- OUTSIDE RECORDS SUMMARY | 2024-06-14 01:48 | XMS_ITS | Encounter Summary ---
[place] [address] Care Team Providers Care Crate Opener Name Role Phone Vanita Churchill APRN Primary Care Provider [phone] Reason for Referral * Diagnostic Test (Routine) - Closed Specialty Diagnoses / Procedures Referred By Emy castillo Referred To Contact Radiology Diagnoses Stenosis of carotid artery, unspecified laterality Procedures CT Angiogram Carotids & [place] of [place] Prerna Harmon MD [facility] [place] [address] [facility] [place] [address] Referral ID Status Reason Start Date Expiration Date V isits Requested Visits Authorized [id number] Closed Specialty Service Requested 05/21/2019 05/20/2020 1 1 Reason for Visit * Consultation (Routine) - Specialty Diagnoses / Procedures Referred By Emy t Referred To Contact Vascular Surgery Diagnoses Hyperlipidemia, unspecified hyperlipidemia Vanita Churchill, [employer]ARGING PLUG PLACER [address] [place] [address] [facility] [address] [place] [address] Referral ID Status Reason Start Date Expiration Date V isits Requested Visits Authorized [id number] Consult, Test & Treat Connection Center PCP Updated and/or Approved 04/29/2019 10/29/2019 6 6 Encounter Details Date Type Department Care Team (Late st Contact Info) Description 05/21/2019 1:00 PM EDT Office Visit [place] [address] Prerna Harmon MD [facility] DR VASCULAR SURGERY [place] [id number] Stenosis of carotid artery, unspecified laterality Social [...] Sign Reading Time Taken Comments Blood Pressure 138/52 05/21/2019 1:00 PM EDT Pulse 71 05/21/2019 12:59 PM EDT Temperature - - Respiratory Rate - - Oxygen Saturation - - Inhaled Oxygen Concentration - - Weight 76.7 kg (169 lb) 05/21/2019 12:59 PM EDT reported Height 160 cm (5' 3) 05/21/2019 12:59 PM EDT re ported Body Mass Index 29.94 05/21/2019 12:59 PM EDT documented in this encounter Progress Notes * Prerna Harmon MD - 05/21/2019 1:00 PM EDT OUTPATIENT VASCULAR SURGERY CONSULTATION Reason for Visit: carotid stenosis History of Present Illness: Lindsey Figueredo is a 68 y.o. female with h/o PAD s/p L femoral endarterectomy with bilateral iliac stenting 07/2017 here for evaluation of R ICA stenosis seen on a recent lifescan. She denies any h/o TIA or CVA. She currently takes ASA as well as a statin. She is a former smoker, quit in 2013. She denies any further sx of claudication. Atherosclerotic Risk Factors: (n) DM (y) HTN (n) CAD (n) CHF (n) Hyperlipidemia (n) CVA reports that she quit smoking about 14 years ago. Her smoking use included cigarettes. She has a 60.00 pack-year smoking history. She has never used smokeless tobacco. Patient Active Problem List Diagnosis Code ??? CHEMA (obstructive sleep apnea) G47.33 ??? GERD (gastroesophageal reflux disease) K21.9 ??? HTN (hypertension) I10 ??? Hypercholesteremia E78.00 ??? Rheumatoid arthritis(714.0) M06.9 ??? Depression F32.9 ??? Emphysema J43.9 ??? Macular degeneration H35.30 ??? IBS (irritable bowel syndrome) K58.9 ??? Constipation K59.00 ??? Seasonal allergic rhinitis J30.2 ??? Hypothyroidism E03.9 ??? Asthma J45.909 ??? Obesity (BMI 30-39.9) E66.9 ??? Atherosclerotic PVD with intermittent claudication I70.219 ??? Claudication in peripheral vascular disease I73.9 Current Outpatient Medications: ??? cholecalciferol, vitamin D3, (D3-2000 ORAL), Take by mouth., Disp: , Rfl: ??? rosuvastatin (CRESTOR) 20 mg Tablet, Take 20 mg by mouth daily., Disp: , Rfl: ??? ezetimibe (ZETIA) 10 mg Tablet, Take 10 mg by mouth daily., Disp: , Rfl: ??? UNABLE TO FINDJohn, Disp: , Rfl: ??? calcium-vitamin D 500 mg(1,250mg) -200 unit Tablet, Take 1 tablet by mouth 2 times daily (with meals)., Disp: , Rfl: ??? iron polysaccharides (NIFEREX) 150 mg iron Capsule, Take 65 mg by mouth daily., Disp: , Rfl: ??? diphenhydrAMINE (BENADRYL) 25 mg Capsule, Take 25 mg by mouth nightly as needed for Itching., Disp: , Rfl: ??? citalopram (CELEXA) 40 mg Tablet, Take 40 mg by mouth daily., Disp: , Rfl: ??? ipratropium-albuterol (DUONEB) 0.5 mg-3 mg(2.5 mg base)/3 mL Solution for Nebulization, Take 3 mLs by nebulization 2 times daily., Disp: , Rfl: ??? cetirizine (ZYRTEC) 10 mg Tablet, Take 10 mg by mouth daily., Disp: , Rfl: ??? KRILL OIL ORAL, Take 1,000 mg by mouth daily., Disp: , Rfl: ??? fluticasone (FLOVENT) 110 mcg/actuation HFA Aerosol Inhaler, Inhale 1 puff into the lungs 2 times daily., Disp: , Rfl: ??? hydroCHLOROthiazide (MICROZIDE) 12.5 mg Capsule, Take 12.5 mg by mouth daily., Disp: , Rfl: ??? levothyroxine (SYNTHROID) 50 mcg Tablet, Take 50 mcg by mouth daily. Indications: Hypothyroidism, Disp: , Rfl: ??? fluticasone (FLONASE) 50 mcg/actuation [place], Suspension, 2 sprays by Each Nare route daily as needed for Rhinitis., Disp: 16 g, Rfl: 3 ??? multivitamin (THERAGRAN) tablet, Take 1 tablet by mouth daily., Disp: , Rfl: ??? acetaminophen (TYLENOL) 650 mg/20.3 mL oral liquid, Take 20.3 mLs by mouth every 4 hours as needed., Disp: 350 mL, Rfl: 1 ??? POLYETHYLENE GLYCOL 3350 (MIRALAX ORAL), Take [...] Allergies Allergen Reactions ??? Latex Itching ??? Hemorrhoid Cream [Tissue Resp Fact-Shark Fadumo Oil] Other (See Comments) Bleeding ??? 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 General - NAD, appears stated age Neuro - Alert and Oriented, Motor Sensory grossly intact Skin - No prominent markings or lesions Ear, Nose, Throat - No masses, No lesions Cardiac - RRR, no murmurs Lungs - Clear Abd - Soft, NT, ND, No palpable pulsatile masses Musculoskeletal- full ROM upper and lower extremities Psych- alert oriented X3 Extremities - Warm, pink, no edema, brisk capillary refill, well healed L femoral incision Vascular Exam: R L Carotid 2/2 bruit (n) 2/2 bruit (n) Radial 2/2 2/2 Femoral 2/2 2/2 Popliteal 2/2 2/2 DP 2/2 2/2 PT 2/2 2/2 Labs: Recent Results (from the past 72 hour(s)) Carotid Duplex, Bilateral Result Value Ref Range VB Text Report Department: Vascular Surgery Lab Patient: [id number] (LINDSEY FIGUEREDO) CPT: 26339 ICD10: I65.29 Referring Physician: STEPHEN EDUARDO Indications: Carotid disease by OSH, ? degree of stenosis ICD10 Diagnosis Code: I65.29 Findings: ICA Proximal, Right PSV (cm/s): 514 EDV (cm/s): 156 ICA/CCA: 8.0 Plaque Structure: Echogenic Plaque Surface: Irregular %Stenosis: 80-99% ICA Distal, Right PSV (cm/s): 49 EDV (cm/s): 17 ICA/CCA: 0.8 CCA Distal, Right PSV (cm/s): 64 EDV (cm/s): 13 %Stenosis: Minimal CCA Proximal, Right PSV (cm/s): 103 EDV (cm/s): 10 External Carotid Artery, Right PSV (cm/s): 132 EDV (cm/s): 16 %Stenosis: <50% Vertebral, Right PSV (cm/s): 63 EDV (cm/s): 14 Direction of Flow: Antegrade ICA Proximal, Left PSV (cm/s): 88 EDV (cm/s): 24 ICA/CCA: 1.2 Plaque Structure: Ech ogenic Plaque Surface: Irregular %Stenosis: 16-49% ICA Distal, Left PSV (cm/s): 75 EDV (cm/s): 25 ICA/CCA: 1.0 CCA Distal, Left PSV (cm/s): 73 EDV (cm/s): 21 %Stenosis: Minimal CCA Proximal, Left PSV (cm/s): 69 EDV (cm/s): 16 External Carotid Artery, Left PSV (cm/s): 154 EDV (cm/s): 24 %Stenosis: <50% Vertebral, Left PSV (cm/s): 64 EDV (cm/s): 16 Direction of Flow: Antegrade Interpretation: RIGHT: There [...] in the mid neck. Vertebral Artery Data: Paten t vertebral arteries with normal antegrade Doppler waveforms and velocities bilaterally. Comparison: No previous study in our vascular lab database for comparison. VB Text Report End of Report Studies: No flowsheet data found. Assessment and Plan: 68 y.o. female with high grade asymptomatic R ICA stenosis. We discussed the risks and benefits of carotid endarterectomy and she would like to proceed. We will obtain a pre-op CTA as well as pre-op testing and plan for surgery in the near future with Dr. Montaño or myself. documented in this encounter Plan of Treatment Upcoming Encounters Date Type Department Care Team (Late st Contact Info) Description 02/06/2025 2:40 PM EDT Office Visit Cardiology at [address] [place] [id number] Rigoberto Diaz MD [facility] [place] [address] Scheduled Procedures Name Priority Associated Diagnoses Date/Ti me EGD, UPPER GI ENDOSCOPY (WRV U 2.09) Incontinence of feces, unspecified fecal incontinence type Dysphagia, unspecified type COLONOSCOPY, DIAGNOSTIC (WRV U 3.26) Incontinence of feces, unspecified fecal incontinence type Dysphagia, unspecified type documented as of this encounter Results * CT Angiogram Carotids & [place] (05/23/2019 3:55 PM EDT) Anatomical Region Laterality Modality Neck, Head Computed Tomogra phy Impressions 05/24/2019 10:01 AM EDT CTA NECK: 1. ??Severe, near occlusive stenosis in the proximal aspect of the right carotid bulb. 2. ??No additional significant stenosis throughout the neck. CTA HEAD: No significant arterial abnormality. I discussed the result #1 with Prerna Harmon on 05/24/2019 at 10:01 AM and verified that she understood these results. Thank you for letting us participate in the care of this patient. For questions regarding this report, please contact the number below. ? Narrative 05/24/2019 10:01 AM EDT EXAMINATION: CT ANGIOGRAM CAROTIDS AND [place] OF ARENAS CLINICAL HISTORY: Carotid Disease TECHNIQUE: [...] - 05/24/2019 EXAMINATION: CT ANGIOGRAM CAROTIDS AND [place] OF ARENAS CLINICAL HISTORY: Carotid Disease TECHNIQUE: [...] #1 with Prerna Faustino on 05/24/2019 at 10:01AM and verified that she understood these results. Thank you for letting us participate in the care of this patient. Forquestions regarding this report, please contact the number below. Electronically signed by: Eugenie Calvert [facility] ([phone]),at 05/24/2019 10:01 AM Prerna Harmon MD IMG CT ORDERABL ES * EKG 12 Lead (05/21/2019 2:39 PM EDT) Ventricular rate 71 BPM MUSE SYSTEM Atrial Rate 71 BPM MUSE SYSTEM P-R Interval 146 ms MUSE SYSTEM QRS Duration 122 ms MUSE SYSTEM Q-T Interval 422 ms MUSE SYSTEM QTC Calculated (Bezet) 458 ms MUSE SYSTEM Calculated P [place] 64 degrees MUSE SYSTEM Calculated R [place] -31 degrees MUSE SYSTEM Calculated T [place] 34 degrees MUSE SYSTEM INTERPRETATION Normal sinus rhythm Left axis deviation Right bundle branch block Abnormal ECG When compared with ECG of 18-JUL-2017 12:43, QRS axis Shifted left Confirmed by MD Compa, Randy ([id number]) on 05/21/2019 4:44:47 PM MUSE SYSTEM 05/21/2019 2:39 PM EDT 05/21/2019 4:44 PM EDT Prerna Harmon MD ECG ORDERABLES MUSE SYSTEM * (ABNORMAL) Basic Metabolic Panel (non-fasting) (05/21/2019 2:13 PM EDT) Glucose Lvl 127 65 - 199 mg/dL [facility] Comment:Diabetes: >=200 mg/d L plus symptoms BUN 18 8 - 18 mg/dL [facility] Creatinine 1.04 0.70 - 1.20 mg/dL [facility] Sodium 138 135 - 145 mmol/L [facility] Potassium 4.1 3.5 - 5.0 mmol/L [facility] Comment: Please note: ??Patients with WBC >100,000 may have falsely elevated Potassium levels. ??For accurate Potassium quantification in these patients send serum separator tube (gold top) for subsequent determinations. ??Contact the Clinical Chemistry Laboratory if there are any questions. Chloride 98 98 - 107 mmol/L [facility] CO2 26 22 - 31 mmol/L [facility] Anion Gap 14 5 - 15 mmol/L [facility] Calcium 10.0 8.5 - 10.5 mg/dL [facility] Estimated GFR 54(L) >=60 mL/min/1. 73 m?? [facility] Comment: The eGFR was calculated using the CKD-EPI equation. As with all creatinine based estimates of kidney function, eGFR values calculated with the CKD-EPI equation are not accurate in patients with acute kidney failure, extremes of body mass or the acutely ill. http://[employer] eGFR 63 >=60 mL/min/1. 73 m?? [facility] Comment: The eGFR was calculated using the CKD-EPI equation. As with all creatinine based estimates of kidney function, eGFR values calculated with the CKD-EPI equation are not accurate in patients with acute kidney failure, extremes of body mass or the acutely ill. http://[employer] Blood specimen (specimen) 05/21/2019 2:13 PM EDT 05/21/2019 2:34 PM EDT Narrative Resulting Agency Comment Spec In Lab Prerna Harmon MD CHEMISTRY ORDER TANA [facility] [place] [address] * (ABNORMAL) Hemogram (05/21/2019 2:13 PM EDT) WBC 11.5(H) 4.0 - 9.5 x10(3)/[facility] RBC 3.92(L) 4.00 - 5.21 x10(6)/[facility] Hemoglobin 13.3 11.7 - 15.5 gm/dL [facility] Hematocrit 39.4 35.7 - 45.8 % [facility] MCV 100.5(H) 82.6 - 94.[address] [facility] MCH 33.9(H) 27.1 - 32.[address] [facility] MCHC 33.8 31.7 - 35.0 gm/dL [facility] Platelets 260 145 - 357 x10(3)/[facility] LABORATORY RDWSD 45.6 37.0 - 46.0 [facility] LABORATORY RDWCV 12.1 11.5 - 14.1 % [facility] MPV 9.9 7.6 - 12.9 [facility] LABORATORY nRBC % Auto 0.0 % [facility] nRBC Abs Auto 0.000 0.000 - 0.000 x10(3)/[facility] Blood specimen (specimen) 05/21/2019 2:13 PM EDT 05/21/2019 2:34 PM EDT Narrative Resulting Agency Comment Spec In Lab Prerna Harmon MD HEMATOLOGY [facility] ([place], [place]) Organization Address City/State/ZIP Co de Phone Number [facility] [place] [address] documented in this encounter Visit Diagnoses Diagnosis Stenosis of carotid artery, unspecified laterality Stenosis of carotid artery, unspecified laterality documented in this encounter Care Teams Crate Opener Relationship Specialty Start Date End Date Vanita Churchill APRN PCP - General Family Medicine 02/27/19 documented as of this encounter
--- OUTSIDE RECORDS SUMMARY | 2024-06-14 01:48 | XMS_ITS | Encounter Summary ---
Author Organization [facility] [place] [address] Care Team Providers Care Parachute Cushion Installer Name Role Phone Vanita Churchill APRN Primary Care Provider [phone] Encounter Details Date Type Department Care Team (Late st Contact Info) Description 06/13/2019 Orders [place] [phone] Lubna Johnston MD [facility] [place] [address] Stenosis of right carotid artery Social History [...] 2:40 PM EDT Office Visit Cardiology at [address] [address] Rigoberto Carvalho MD [facility] [place] [address] Scheduled Procedures Name Priority Associated Diagnoses Date/Ti [...] infarction documented in this encounter Care Teams Parachute Cushion Installer Relationship Specialty Start Date End Date Vanita Churchill APRN PCP - General Family Medicine 02/27/19 documented as of this encounter
--- OUTSIDE RECORDS SUMMARY | 2024-06-14 01:48 | XMS_ITS | Encounter Summary ---
Author Organization [facility] [place] [address] Care Team Providers Care Chief Of Hospital Medicine Name Role Phone Vanita Churchill KYARA Primary Care Provider [phone] Encounter Details Date Type Department Care Team (Late st Contact Info) Description 07/15/2019 2:00 PM EDT Tech [place] [address] [place], [place] Bilateral carotid artery stenosis Social History Tobacco [...] 2:40 PM EDT Office Visit Cardiology at [address] [phone] Rigoberto Diaz MD [facility] [place] [address] Scheduled Procedures Name Priority Associated Diagnoses Date/Ti me EGD, UPPER GI ENDOSCOPY (WRV U 2.09) Incontinence of feces, unspecified fecal incontinence type Dysphagia, unspecified type COLONOSCOPY, DIAGNOSTIC (WRV U 3.26) Incontinence of feces, unspecified fecal incontinence type Dysphagia, unspecified type documented as of this encounter Procedures Procedure Name Priority Date/Time Associated Diagnosis Comments CAROTID DUPLEX, UNILATERAL Routine 07/15/2019 1:45 PM EDT Bilateral carotid artery stenosis documented in this encounter Results * Carotid Duplex, Unilateral (07/15/2019 1:45 PM EDT) VB Text Report Department: Vascular Surgery Lab Patient: [id number] (LINDSEY FIGUEREDO) CPT: 83572 ICD10: I65.23 Referring Physician: DOROTA MONTAÑO MD ?? Phone: Indications: 1 month f/u R CEA ICD10 Diagnosis Code: I65.23 Findings: ICA Proximal, Right ? PSV (cm/s): 96 ? EDV (cm/s): 28 ? ICA/CCA: 1.2 ? Plaque Structure: Echogenic ? Plaque Surface: Smooth ? %Stenosis: <15% ICA Distal, Right ? PSV (cm/s): 99 ? EDV (cm/s): 20 ? ICA/CCA: 1.2 CCA Distal, Right ? PSV (cm/s): 83 ? EDV (cm/s): 14 CCA Middle, Right ? %Stenosis: Minimal CCA Proximal, Right ? PSV (cm/s): 88 ? EDV (cm/s): 14 External Carotid Artery, Right ? PSV (cm/s): 171 ? EDV (cm/s): 8 ? %Stenosis: <50% Vertebral, Right ? PSV (cm/s): 48 ? EDV (cm/s): 8 ? Direction of Flow: Antegrade Interpretation: RIGHT: A thin layer of circumferential plaque is present in the common carotid artery causing minimal stenosis. Widely patent internal carotid artery with < 15% stenosis when compared to the more distal internal carotid artery. The bifurcation level is in the mid neck. Significant improvement compared to pre-op exam. Vertebral Artery Data: Patent vertebral artery with normal antegrade Doppler waveforms and velocities. Previous Carotid Studies: Date ?RIGHT ICA Stenosis ??PSV ?? Ratio ?? LEFT ICA Stenosis ?? PSV ?? Ratio ? 80-99% ? 514 ?? 8.00 ? 16-49% ? 88 ?1.20 Current Exam ? <15% ? 96 ?1.20 ? n/a ?n/a ?? n/a Electronically Signed by: DOROTA MONTAÑO MD on 2019-07-15 04:52:27 PM [facility] VB Text Report End of Report [facility] 07/15/2019 1:45 PM EDT Dorota Montaño MD VASCULAR ORDERABLES [facility] documented in this encounter Visit Diagnoses Diagnosis Bilateral carotid artery stenosis Occlusion and stenosis of multiple and bilateral precerebral arteries without mention of cerebral infarction documented in this encounter Care Teams Chief Of Hospital Medicine Relationship Specialty Start Date End Date Vanita Churchill APRN PCP - General Family Medicine 02/27/19 documented as of this encounter
--- OUTSIDE RECORDS SUMMARY | 2024-06-14 01:48 | XMS_ITS | Encounter Summary ---
Author Organization [facility] [place] [address] Care Team Providers Care Assistant Food Service Manager Name Role Phone Vanita Churchill KYARA Primary Care Provider [phone] Reason for Visit * Auth/Cert Specialty Diagnoses / Procedures Referred By Emy castillo Referred To Contact Diagnoses Carotid stenosis Procedures PRO THROMBOENDARTECTMY NECK, NECK INCIS @ENDARTERECTOMY, CAROTID, VERTEBRAL,SUBCLAVIAN W\WO PATCH GRAFT (WRVU 21.16) Referral ID Status Reason Start Date Expiration Date Visits Re quested Visits Authorized [id number] 1 1 Encounter Details Date Type Department Care Team (Late st Contact Info) Description 06/10/2019 12:00 PM EDT Anesthesia Event [place] [address] Mane Hanson MD [facility] [address] [place] [address] Brooke Thomason CRNA [facility] [address] Anesthesia Record Procedure Summary Procedure Name Responsible Anesthesiologist Anesthesia Start Time Anesthesia Stop Time @ENDARTERECTOMY, CAROTID, VERTEBRAL,SUBCLAVIA N W\WO PATCH GRAFT (VU 21.16) (Right: Neck) Mane Hanson MD 06/10/19 1200 06/10/19 1604 Events Date Time Event Comment 06/10/2019 1159 1200 Start 1204 AN Verify 1206 An Start Data 1215 An Induction 1218 An Intubation 1220 IV Start 1221 Anesthesia Ready 1253 Procedure Start 1255 ABG Data Arterial Blood Gas result: pH 7.40 pCO2 38.7 pO2 263 %O2 Sat 98% FiO2 59% HCO3 23.5 BE -1.3 Hb 12.7 K 3.5 Glucose 116 Lactate 0.71 1320 Heparin 1352 Quick Note SBP 140 - 160 m mHg at surgeon's request 1356 Vascular Clamp ON 1445 Vascular Clamp OFF 1448 Protamine 1534 Procedure Stop 1536 Extubation/LMA Out Patient s pontaneously ventilating; adequate tidal volumes (>550 mL); regular respiratory rate & rhythm; neuromuscular function intact as evidence by sustained tetanus; following commands. Oropharynx suctioned. Extubated without issue to 6L/min O2 via face mask. VSS. 1545 Quick Note PACU hold at th is time. Patient awake, alert, and oriented. VSS. 1554 an stop data 1603 Recovery or ICU Handoff Dasha ent care was transferred to the destination unit staff after review of the patient's medical history, current anesthetic/surgical status and plan, according to the Provider Handoff Checklist. 1604 Stop Patient awake, alert, and oriented; actively conversing with staff. Spontaneous ventilation without issue. VSS. Full report given to LOAD OUT WORKER. Meds Name Total Midazolam 2 mg fentaNYL 100 mcg IV Lidocaine 100 mg Propofol 150 mg Rocuronium 50 mg ePHEDrine 30 mg Ondansetron 4 mg Dexamethasone 8 mg REMIfentanil INF 1.78 mg PHENYLephrine INF 3,980 mcg ceFAZolin (ANCEF) 2g in dextrose 5% 100 mL 4 g Heparin 9,000 Units Protamine 15 mg HYDROmorphone 0.6 mg lactated ringers infusion 500 mL Lactated Ringers 500 mL * Agents Name O2 Air N2O Sevoflurane (et) O2 Auxiliary Flowmeter 1 * Blood No blood administrations on file. Lines, Drains, and Airways Type Details Placement Removal Incision 02/18/13; abdomen; 07/25/22 (LDA cleanup utility RA#[id number]); 1715 (LDA cleanup utility RA#[id number]) 02/18/13 0000 by Johanna Srinivasan RN 07/25/22 1715 by Reece Moeller Incision 08/15/17; 0834; groi n; vertical; 07/25/22 (LDA cleanup utility RA#[id number]); 1715 (LDA cleanup utility RA#[id number]) 08/15/17 0834 by Joceline Maldonado RN 07/25/22 1715 by Reece Moeller Incision 08/15/17; 0943; groi n; other (see comments); Percutaneous puncture for endovascular surgery; 07/25/22 (LDA cleanup utility RA#[id number]); 1715 (LDA cleanup utility RA#[id number]) 08/15/17 0943 by Joceline Maldonado RN 07/25/22 1715 by Reece Moeller (RETIRED) Peripheral IV Line - Single Lumen 06/10/19; 1050; metacarpal vein (top of hand), left; [id number]-[id number]-teisma catheter system; 18 gauge; Jo Mayes RN; intradermal injection, tolerated well, appears comfortable, age-appropriate response; 0; site symptomatic; 06/10/19; 212906/10/19 1050 by Ro Batres RN 06/10/19 2130 by Zhanna Lou RN ETT Mask Ventilation: Adjunct (2); ETT Type: Cuffed, Oral; ETT Size: 7 mm; Mac Blade: 3; Notes: Asleep, Pre-O2, Stylette; Attempts: 1; Laryngoscopy Grade: 1; ETT Placement Verified By: Auscultation, Capnometry, Visual; Secured at Teeth: 21 cm; Inserted by: Brooke Thomason CRNA; Removal Date: 06/10/19; Removal Time: 153506/10/19 1218 by Brooke Thomason CRNA 06/10/19 153 by Brokoe Thomason CRNA (RETIRED) Peripheral IV Line - Single Lumen 06/10/19; 1220; median cubital vein (antecubital fossa), left; [id number] catheter system; 16 gauge; Brooke Thomason CRNA; no longer indicated, site care per policy/procedure, catheter/device intact; 06/11/19; 1026 06/10/19 1220 by Brooke Thomason CRNA 06/11/19 1026 by Magnolia Piper RN Arterial Line 06/10/19; 1220; radi al artery, right; 20 gauge; Mane Hanson MD; Sterile Prep, Sterile Gloves; 06/10/19; 1915 06/10/19 1220 by Brooke Thomason CRNA 06/10/19 1915 by Jovana Montague RN Incision 06/10/19; 1305; neck ; 07/25/22 (LDA cleanup utility RA#[id number]); 1715 (LDA cleanup utility RA#[id number]) 06/10/19 1305 by Marizol Dove RN 07/25/22 1715 by Reece Moeller documented in this encounter Social History Tobacco [...] OR Notes * Anesthesia Postprocedure Evaluation - Mane Hanson MD - 06/10/2019 6:44 PM EDT Department of Anesthesiology Post-procedure Note Patient: Lindsey Deleon Procedure Summary Date: 06/10/19 Room / Location: [facility] OR [address] [place] [address] MAIN OR Anesthesia Start: 1200 Anesthesia Stop: 1604 Procedure: @ENDARTERECTOMY, CAROTID, VERTEBRAL,SUBCLAVIAN W\WO PATCH GRAFT (WRVU 21.16) (Right Neck) Diagnosis: (Carotid stenosis) Surgeon: Jake Montaño MD Responsible Provider: Mane Hanson MD Anesthesia Type: general ASA Status: 3 All Anesthesia Providers: Anesthesiologist: Mane Hanson MD SENIOR COMPLIANCE OFFICER: Brooke Thomason CRNA Vitals Value Taken Time BP 119/63 06/10/2019 6:30 PM Temp 36.4 ??C (97.5 ??F) 06/10/2019 5:00 PM Pulse 68 06/10/2019 6:43 PM Resp 16 06/10/2019 6:43 PM SpO2 97 % 06/10/2019 6:43 PM Pain Level 1 06/10/2019 5:00 PM Vitals shown include unvalidated device data. Patient Location: PACU/[facility] Level of Consciousness: Awake and Alert Pain Management: Pain Being Addressed PONV: None Cardiovascular Status: At Baseline Respiratory Status: At Baseline and Room Air Postoperative Fluid Status: Intravascular EUvolemia Possible Anesthetic Complications: NONE apparent at time of evaluation Final Primary Anesthesia Type: General (The anesthetic type performed was the same as planned.) Comments: * Anesthesia Preprocedure Evaluation - Mane Hanson MD - 06/10/2019 11:56 AM EDT Pre-Anesthesia Evaluation for: Lindsey D Deleon a 68 y.o. female. Procedure(s): @ENDARTERECTOMY, CAROTID, VERTEBRAL,SUBCLAVIAN W\WO PATCH GRAFT (WRVU 21.16) Patient Active Problem List Diagnosis ??? Carotid [...] Macular degeneration ??? CHEMA (obstructive sleep apnea) Past Medical History: Diagnosis Date ??? Anemia [...] 1.79) performed by Jake Montaño MD at [facility] MAIN OR ??? PRO COLONOSCOPY, DIAGNOSTIC 12/06/2012 COLONOSCOPY, DIAGNOSTIC performed by Mik Dumont MD at [facility] ENDOSCOPY ??? PRO LAPAROSCOPY, SURG, REPAIR PARAESOPHAGEAL HERNIA, W/O IMPLANTATION OF MESH 02/18/2013 LAPAROSCOPIC PARAESOPHAGEAL HERNIA REPAIR W/FUNDOPLASTY, W/O MESH performed by Moncho Bowers MD at [facility] MAIN OR ??? PRO PLACE CATH FIRST ORDER ART, ABD/PELV 08/15/2017 CATHETER PLACEMENT, SELECTIVE FIRST ORDER IN ARTERIAL SYSTEM, EACH FIRST ORDER ABDOMINAL, PELVIC, OR LOWER EXTREMITY ARTERY BRANCH,WITHIN A VASCULAR FAMILY (WRVU 4.9) performed by Jake Montaño MD at [facility] MAIN OR ? ? PRO REVSC OPEN/PERCUTANEOUS ILIAC ART W STNT PLMT&ANGIO PATRICE VSL UNILAT Bilateral 08/15/2017 REVSC OPN\PRQ ILIAC ART W\STNT PLMT & ANGIOP SAME VSL (WRVU 10) performed by Jake Montaño MD at [facility] MAIN OR ??? PRO THROMBOENDARTECTMY ILIOFEMORAL Left 08/15/2017 @ENDARTERECTOMY, ILIOFEMORAL W OR W/O PATCH GRAFT (WRVU 19.86) performed by Jake Montaño MD at [facility] MAIN OR ??? PRO UPPER GI ENDOSCOPY, BIOPSY 12/06/2012 EGD WITH BIOPSY performed by Mik Dumont MD at [facility] ENDOSCOPY ??? TUBAL LIGATION Social History Tobacco Use ??? Smoking status: Former Smoker Packs/day: 2.00 Years: 30.00 Pack years: 60.00 Types: Cigarettes Last attempt to quit: 10/21/2004 Years since quittin.6 ??? Smokeless tobacco: Never Used Substance Use Topics ??? Alcohol use: Yes Types: 1 Glasses of wine, 1 Cans of beer per week Social History Substance and Sexual Activity Drug Use Never Allergies Allergen Reactions ??? Latex Itching ??? Hemorrhoid Cream [Tissue Resp Fact-Shark Fadumo Oil] Other (See Comments) Bleeding ??? Kaopectate [Bismuth Subsalicylate] Other (See Comments) Rectal Bleeding ??? Lisinopril Other (See Comments) coughing Medications: MAR and/or home medications have been reviewed. Physical Exam: Most Recent Vitals: 06/10/19 1044 BP: 138/57 Pulse: 87 Resp: 16 Temp: 36.4 ??C (97.5 ??F) SpO2: 95% Body mass index is 29.76 kg/m??. Weight: 76.2 kg (168 lb) Airway Assessment: Mallampati: II TM distance: >3 FB Neck ROM: full Cardiovascular Assessment: Pulmonary Assessment: breath sounds clear to auscultation PE comment: Wheezing on forced expiration Dental Assessment: (+) upper dentures and lower dentures Misc Assessment: Anesthesia Plan: ASA 3 general, with a(n) intravenous induction Anesthesia - R/B/As discussed. QSA. Presents with tight right carotid stenosis for carotid endarterectomy. Known PVD (S/P other procedures), CHEMA (on BIPAP), COPD, hypertension, obesity (though she islosing weight). Plan GA/ET, A-line. Region - [facility] Informed Consent: Anesthetic plan and risks discussed with patient and daughter/son. Plan discussed with SENIOR COMPLIANCE OFFICER. PAT Clinic Note documented in this encounter Plan of Treatment Upcoming Encounters Date Type Department Care Team (Late st Contact Info) Description 02/06/2025 2:40 PM EDT Office Visit Cardiology at [address] [place] [address] Rigoberto Diaz MD [facility] [place] [address] Scheduled Procedures Name Priority Associated Diagnoses Date/Ti [...] Action Action Date Dose Rate Site ceFAZolin (ANCEF) 2g in dextrose 5% 100 mL 2 g, Intravenous, ONCE, 1 dose, On Mon06/10/19 at 1115, Administer over 30 Minutes, Redose every 3 hours if CrCl is greater than 20. Redose every 8 hours if CrCl is less than 20., Day of Surgery (Day of Procedure), Indication for (Active or Suspected): Prophylaxis Given 06/10/2019 3:25 PM EDT 2 g Given 06/10/2019 12:25 PM EDT 2 g dexamethasone (DECADRON) injection PRN, Starting on Mon06/10/19 at 1245, Until Mon06/10/19 at 1604, Anesthesia Intra-op, Routine Given 06/10/2019 12:45 PM EDT 8 mg ePHEDrine 5 mg/mL multi-dose injection PRN, Starting on Mon06/10/19 at 1240, Until Mon06/10/19 at 1604, Anesthesia Intra-op, Routine Given 06/10/2019 3:30 PM EDT 5 mg Given 06/10/2019 1:54 PM EDT 5 mg Given 06/10/2019 1:53 PM EDT 5 mg fentaNYL 50 mcg/mL multi-dose injection PRN, Starting on Mon06/10/19 at 1209, Until Mon06/10/19 at 1604, Anesthesia Intra-op, Routine Given 06/10/2019 12:22 PM EDT 50 mcg Given 06/10/2019 12:09 PM EDT 50 mcg heparin (porcine) injection PRN, Starting on Mon06/10/19 at 1320, Until Mon06/10/19 at 1604, Anesthesia Intra-op, Routine Given 06/10/2019 2:33 PM EDT 1,000 Units Given 06/10/2019 2:02 PM EDT 1,000 Units Given 06/10/2019 1:20 PM EDT 7,000 Units HYDROmorphone (DILAUDID) injection PRN, Starting on Mon06/10/19 at 1454, Until Mon06/10/19 at 1604, Anesthesia Intra-op, Routine Given 06/10/2019 3:50 PM EDT 0.2 mg Given 06/10/2019 3:15 PM EDT 0.2 mg Given 06/10/2019 2:54 PM EDT 0.2 mg lactated ringers infusion 1,000 mL, at 100 mL/hr, Intravenous, CONTINUOUS, Starting on Mon06/10/19 at 1115, Until Mon06/10/19 at 1951, Day of Surgery (Day of Procedure) New Bag 06/10/2019 10:50 AM EDT lactated ringers infusion CONTINUOUS PRN, Starting on Mon06/10/19 at 1220, Until Mon06/10/19 at 1604, Anesthesia Intra-op New Bag 06/10/2019 12:20 PM EDT lidocaine (PF) (XYLOCAINE) 100 mg/5 mL (2 %) injection PRN, Starting on Mon06/10/19 at 1215, Until Mon06/10/19 at 1604, Anesthesia Intra-op, Routine Given 06/10/2019 12:15 PM EDT 100 mg midazolam (PF) (VERSED) multi-dose injection PRN, Starting on Mon06/10/19 at 1208, Until Mon06/10/19 at 1604, Anesthesia Intra-op, Routine Given 06/10/2019 12:15 PM EDT 1 mg Given 06/10/2019 12:08 PM EDT 1 mg ondansetron (ZOFRAN) injection PRN, Starting on Mon06/10/19 at 1515, Until Mon06/10/19 at 1604, Anesthesia Intra-op, Routine Given 06/10/2019 3:15 PM EDT 4 mg PHENYLephrine (JOSELUIS-SYNEPHRINE) 20 mg in sodium chloride 250 mL (standard ADULT & Pedi greater than 20kg) infusion CONTINUOUS PRN, Starting on Mon06/10/19 at 1240, Until Mon06/10/19 at 1604, Anesthesia Intra-op, Routine Rate/Dose Change 06/10/2019 2:59 PM EDT 20 mcg/min 15 mL/hr Rate/Dose Change 06/10/2019 2:42 PM EDT 30 mcg/min 22.5 mL /hr Rate/Dose Change 06/10/2019 2:22 PM EDT 25 mcg/min 18.8 mL /hr propofol (DIPRIVAN) 10 mg/mL bolus injection (Anesthesia) PRN, Starting on Mon06/10/19 at 1215, Until Mon06/10/19 at 1604, Anesthesia Intra-op Given 06/10/2019 12:16 PM EDT 50 mg Given 06/10/2019 12:15 PM EDT 100 mg protamine injection PRN, Starting on Mon06/10/19 at 1448, Until Mon06/10/19 at 1604, Anesthesia Intra-op, Routine Given 06/10/2019 2:56 PM EDT 5 mg Given 06/10/2019 2:48 PM EDT 10 mg remifentanil (ULTIVA) 0.02 mg/mL IV infusion (ANESTHESIA) CONTINUOUS PRN, Starting on Mon06/10/19 at 1219, Until Mon06/10/19 at 1604, Anesthesia Intra-op Rate/Dose Change 06/10/2019 3:21 PM EDT 0.2 mcg/kg/min 45.7 mL/hr Rate/Dose Change 06/10/2019 2:05 PM EDT 0.15 mcg/kg/min 34 .3 mL/hr New Bag 06/10/2019 12:19 PM EDT 0.1 mcg/kg/min 22.9 mL/ hr rocuronium (ZEMURON) multi-dose injection PRN, Starting on Mon06/10/19 at 1216, Until Mon06/10/19 at 1604, Anesthesia Intra-op, Routine Given 06/10/2019 12:16 PM EDT 50 mg documented in this encounter Care Teams Assistant Food Service Manager Relationship Specialty Start Date End Date Vanita Churchill, FURNITURE RESTORER PCP - General Family Medicine 02/27/19 documented as of this encounter
--- OUTSIDE RECORDS SUMMARY | 2024-06-14 01:48 | XMS_ITS | Encounter Summary ---
Author Organization Formerly [facility] [place] [address] Care Team Providers Care Pinmaker Name Role Phone Vanita Churchill PROBE OPERATOR Primary Care Provider [phone] Reason for Visit * Auth/Cert Specialty Diagnoses / Procedures Referred By Emy castillo Referred To Contact Diagnoses Carotid stenosis Procedures PRO THROMBOENDARTECTMY NECK, NECK INCIS @ENDARTERECTOMY, CAROTID, VERTEBRAL,SUBCLAVIAN W\WO PATCH GRAFT (WRVU 21.16) Referral ID Status Reason Start Date Expiration Date Visits Re quested Visits Authorized [id number] 1 1 Encounter Details Date Type Department Care Team (Late st Contact Info) Description 06/10/2019 12:11 PM EDT - 06/10/2019 4:36 PM EDT Surgery [place] [address] Dorota Montaño MD [facility] [place] [address] @ENDARTERECTOMY, CAROTID, VERTEBRAL,SUBCLAVIAN W\WO PATCH GRAFT (WRVU 21.16) Social History Tobacco Use Types Packs/Day Years [...] Sign Reading Time Taken Comments Blood Pressure 115/48 06/10/2019 4:30 PM EDT Pulse 80 06/10/2019 4:30 PM EDT Temperature 36.5 ??C (97.7 ??F) 06/10/2019 3:56 PM ED T Respiratory Rate 18 06/10/2019 4:30 PM EDT Oxygen Saturation 97% 06/10/2019 4:30 PM EDT Inhaled Oxygen Concentration - - Weight 76.2 kg (168 lb) 06/10/2019 10:44 AM EDT Height - - Body Mass Index 29.76 05/23/2019 4:05 PM EDT documented in this encounter Discharge Summaries * Sharmaine Lara PA - 06/11/2019 10:19 AM EDT Images from the original note were not included. Inpatient - Discharge Summary Patient Name: Lindsey Deleon Patient Age: 68 y.o. Birthdate: 1950 Admit date: 06/10/2019 Discharge date and time: 06/11/2019 Attending Physician: Dorota Montaño MD Discharge Diagnoses (Hospital Problems) and Secondary Diagnoses (Chronic Problems): There are no hospital problems to display for this patient. Active Non-Hospital Problems Diagnosis ??? Carotid stenosis [...] Macular degeneration ??? CHEMA (obstructive sleep apnea) Operations/Major Procedures: 06/10/2019: Right Carotid Endarterectomy with Patch Angioplasty History of Presentation: 68F former smoker with a hx of HTN, HLD, and PVD who presents with high grade asymptomatic RIGHT carotid stenosis. Patient denies any symptoms concerning for stroke, TIA, or amaurosis fugax. She also denies claudication after her recent revascularization procedure. She continues to take daily ASA and statin. Hospital Course: In surgery on 06/10/19, ICA with focal plaque in proximal portion causing severe narrowing, endarterectomy performed of common, internal, and external carotid arteries, vessels repaired with patch angioplasty; patient fully neuro intact at end of case. Pt admitted for postop monitoring. Pt's recovery went well with good PO intake, adequate output and minimal pain. One headache overnight treated with tylenol, resolved this morning. Pt's right neck incision remains c/d/i, open to air.Pt ambulates independently, remains AOx3, neuro intact. She is medically cleared for d/c to home with f/u in 1 month with a duplex. BP 119/50 (BP Location (NBP): Right arm, Patient Position: Lying) Pulse 64 Temp 36.9 ??C (98.4 ??F) (Oral) Resp 18 Wt 76.2 kg (168 lb) SpO2 99% BMI 29.76 kg/m?? Day of discharge exam: GEN: Alert and appears stated age. Cooperative. In NAD. HEENT: Normocephalic and atraumatic. Neck: R neck incision c/d/i - no erythema, swelling, or drainage. Supple, symmetric, trachea midline. CV: RRR. S1/S2 present. Pulm: No evidence of increased work of breathing. Clear to auscultation bilaterally. Abd: Soft, non-distended, non-tender to palpation. Skin: Color, texture, turgor normal. No rashes or lesions. Neuro: No focal deficits, gross sensory or motor abnormalities. Extremities: Bilateral UE and LE warm and pink. No edema. No wounds. Important Studies and Lab Data: Labs: none Studies: none Discharge Conditions/Prognosis: Good Discharge to: Home Discharge Medications: Your Medications Continued medications with new dosing Dose Details FOLIC ACID ORAL What changed: See the new instructions. Refills: 0 Continued medications, unchanged Dose Details acetaminophen 325 mg Tab Commonly known as: TYLENOL Take 650 mg by mouth every 4 hours as needed for Pain. 650 mg Refills: 0 aspirin 325 mg Tab Take 325 mg by mouth daily. 325 mg Refills: 0 buPROPion 100 mg Tab Commonly known as: WELLBUTRIN Take 50 mg by mouth daily. 50 mg Refills: 0 calcium-vitamin D 500 mg(1,250mg) -200 unit Tab Take 1 tablet by mouth 2 times daily (with meals). 1 tablet Refills: 0 citalopram 40 mg Tab Commonly known as: CeleXA Take 40 mg by mouth daily. 40 mg Refills: 0 D3-2000 ORAL Take by mouth. Refills: 0 diphenhydrAMINE 25 mg Cap Commonly known as: BENADRYL Take 25 mg by mouth nightly as needed for Itching. 25 mg Refills: 0 ezetimibe 10 mg Tab Commonly known as: ZETIA Take 10 mg by mouth daily. 10 mg Refills: 0 * fluticasone propionate 110 mcg/actuation Hfaa Commonly known as: FLOVENT Inhale 1 puff into the lungs 2 times daily. 1 puff Refills: 0 * fluticasone propionate 50 mcg/actuation Spsn Commonly known as: FLONASE 2 sprays by Each Nare route daily as needed for Rhinitis. 2 spray Quantity: 16 g Refills: 3 hydroCHLOROthiazide 12.5 mg Cap Commonly known as: MICROZIDE Take 12.5 mg by mouth daily. 12.5 mg Refills: 0 ipratropium-albuterol 0.5 mg-3 mg(2.5 mg base)/3 mL Nebu Commonly known as: DUONEB Take 3 mLs by nebulization 2 times daily. 3 mL Refills: 0 iron polysaccharides 150 mg iron Cap Commonly known as: NIFEREX Take 65 mg by mouth daily. 65 mg Refills: 0 KRILL OIL ORAL Take 1,000 mg by mouth daily. 1000 mg Refills: 0 levothyroxine 50 mcg Tab Commonly known as: SYNTHROID Take 50 mcg by mouth daily. Indications: Hypothyroidism 50 mcg Refills: 0 MIRALAX ORAL Take by mouth as needed. Refills: 0 multivitamin Tab Commonly known as: THERAGRAN Take 1 tablet by mouth daily. 1 tablet Refills: 0 REFRESH TEARS OPHT Apply to eye 2 times daily. Refills: 0 rosuvastatin 20 mg Tab Commonly known as: CRESTOR Take 20 mg by mouth daily. 20 mg Refills: 0 UNABLE TO FIND [place] Refills: 0 ziprasidone 20 mg Cap Commonly known as: GEODON Take 20 mg by mouth 2 times daily (with meals). 20 mg Refills: 0 ZyrTEC 10 mg Tab Take 10 mg by mouth daily. Generic drug: cetirizine 10 mg Refills: 0 * This list has 2 medication(s) that are the same as other medications prescribed for you. Read thedirections carefully, and ask your doctor or other care provider to review them with you. Updated Allergies/ADRs: Allergies Allergen Reactions ??? Latex Itching ??? Hemorrhoid Cream [Tissue Resp Fact-Shark Mynor Oil] Other (See Comments) Bleeding ??? Kaopectate [Bismuth Subsalicylate] Other (See Comments) Rectal Bleeding ??? Lisinopril Other (See Comments) coughing Instructions Given to Patient at Discharge: Patient Instructions You were admitted to the hospital after having a right carotid endarterectomy. This operation went very well. Dr. Montaño will want you to be seen in approximately one month with a carotid ultrasound ofyour neck first. This will be scheduled and sent to you in the mail. If for some reason you don't receive this in a week, please call our office at the number below as your follow-up is very important. Call your doctor if: Any change in vision, numbness or inability to move any extremity, inability to speak and or a headache unresponsive to Tylenol. Activity level: up as tolerated but take it easy for a week or so. Diet: regular Driving: ok after a week if you feel perfect and you were driving before Shower/Bath: showering or bath is ok Wound Care: wash with soap and water, pat dry You should see your Primary Care Physician within 1-2 weeks for a post hospital follow-up. For any problems or questions please call our office at [phone] Ella Ned, BSN, electronic gluer Nurse Clinician For issues on weeknights after 5pm and weekends please call [phone] and ask for the Vascular Fellow assistant production editor. General Instructions None Future Appointments and Orders Future Appointments and Orders Future Appointments Provider Department Dept Phone 07/15/2019 2:00 PM Avel Miller RVT [facility] at [place] Arrive at: [facility] [phone] 07/15/2019 2:30 PM Dorota Montaño MD [facility] Surgery at [place] Arrive at: [facility] [phone] 03/19/2020 9:30 AM Alley Johnson PROBE OPERATOR [facility] Arrive at: [facility] [address] [place] [phone] Future Orders Complete By Expires Carotid Duplex, Unilateral [VAS2 Custom] 07/12/2019 (Approximate) 06/11/2020 Process Instructions: There is no in-house vascular laborer heading available on weeknights (5pm-8am), weekends, or holidays. IF THIS IS A REQUEST FOR AN EMERGENT STUDY DURING THOSE HOURS, please have the senior provider responsible for the patient page the Vascular Surgery Fellow/Senior Resident assistant production editor to discuss options. Scheduling Instructions: Questions: Laterality: Right Indication for study/signs & symptoms: s/p R CEA Question to be answered: patency At which [facility] location will this be performed?: [place] Discharge References/Attachments: Discharge References/Attachments None Electronically Signed By: RITA Goodman 06/11/2019 documented in this encounter Discharge Instructions * Patient Instructions* Ella Marino RN - 06/10/2019 10:36 AM EDT You were admitted to the hospital after having a right carotid endarterectomy. This operation went very well. Dr. Montaño will want you to be seen in approximately one month with a carotid ultrasound ofyour neck first. This will be scheduled and sent to you in the mail. If for some reason you don't receive this in a week, please call our office at the number below as your follow-up is very important. Call your doctor if: Any change in vision, numbness or inability to move any extremity, inability to speak and or a headache unresponsive to Tylenol. Activity level: up as tolerated but take it easy for a week or so. Diet: regular Driving: ok after a week if you feel perfect and you were driving before Shower/Bath: showering or bath is ok Wound Care: wash with soap and water, pat dry You should see your Primary Care Physician within 1-2 weeks for a post hospital follow-up. For any problems or questions please call our office at [phone] TERESA Sousa, electronic gluer Nurse Clinician For issues on weeknights after 5pm and weekends please call [phone] and ask for the Vascular Fellow assistant production editor. documented in this encounter Medications at Time [...] nystatin (MYCOSTATIN) Cream Apply topically. 03/21/2014 03/08/2023 buPROPion (WELLBUTRIN) 100 mg Tablet Take 100 mg by mouth daily. 03/19/2021 UNABLE TO FIND [place] 03/08/2023 calcium-vitamin D [...] Indications: Hypothyroidism 10/11/2022 fluticasone (FLONASE) 50 mcg/actuation [place], SuspensionIndications:S easonal allergic rhinitis 2 sprays by Each Nare route daily as needed for Rhinitis. 16 g 3 05/03/2016 03/19/2021 POLYETHYLENE GLYCOL 3350 (MIRALAX ORAL) Take by mouth as needed. 02/05/2024 documented as of this encounter Progress Notes * Magnolia Piper RN - 06/11/2019 10:46 AM EDT Patient discharged to home with no services. IV removed, site benign. Pt. Denies chest pain and shortness of breath. Discussed pain management with patient, pain tolerable. Patient medicated prior todischarge. Patient has all belongings and supplies needed. Discharge instructions and prescriptionswere given and reviewed. All questions answered. Patient verbalizes understanding. Patient encouraged to call with questions or concerns. Patient left floor via daughter per private vehicle. * Juan Henry MD - 06/10/2019 6:41 PM EDT Surgery Post Op Check Lindsey Deleon is a 68 y.o. female status post Right ENDARTERECTOMY, CAROTID, VERTEBRAL,SUBCLAVIAN W\WO PATCH GRAFT S: Ms. Deleon is a pleasant lady that is doing well post-op. No nausea/vomiting, chest pain, SOB,pain well controlled, offers no complaints. Mild headache that resolved with 1x dose of tylenol. O: Temp: [36.4 ??C (97.5 ??F)-36.5 ??C (97.7 ??F)] Heart Rate: [67-89] Resp: [16-23] BP: (108-138)/(44-63) SpO2: [95 %-100 %] Heart Rate from SpO2: [67 bpm-71 bpm] No intake/output data recorded. I/O this shift: In: 1000 [I.V.:1000] Out: 50 [Blood:50] Physical Exam General: NAD, resting comfortably HEENT: PERRL, anicteric sclerae Neck: Right side incision c/d/I, no evidence of hematoma CVS: Regular rate, no murmurs rubs or gallops Pulm: Clear bilaterally Ext: RLE: No edema. Skin warm and pink. LLE: No edema. Skin warm and pink. Neuro: CN 2-12 grossly intact, nonfocal, moving all extremities. Motor function intact in extremities, bilaterally symmetric. Vascular Exam: R L Carotid Dressing in place 2/2 Radial 2/2 2/2 DP 2/2 2/2 PT 2/2 2/2 AP Lindseysa Ga Deleon is a 68 y.o. female status post right ENDARTERECTOMY, CAROTID, VERTEBRAL,SUBCLAVIAN W\WO PATCH GRAFT Currently in stable condition and recovering well - pain well controlled - hemodynamically stable Juan Henry MD * Jovana Montague RN - 06/10/2019 4:31 PM EDT 1556) Patient into PACU from OR. Attached to monitors, alarms on and appropriate for patient. Patient is incontinent in the bed upon arrival. Bladder scanned for 770 ml. Placed on bedpan and voided 800 ml plus wet linen. Patient cleaned up and linens changed. Francisco Javier MULTANI 1620) Patient c/o a little headache mostly on the right druze. Tylenol given. Neuro intact. Francisco Javier MULTANI 1999) Meets PACU dc critera. Handoff accepted and patient transported by PACU staff. Francisco Javier MULTANI documented in this encounter H&P Notes * Terry Chu MD - 06/10/2019 11:15 AM EDT Vascular Surgery History and Physical HPI: Ms Deleon is a 68F former smoker with a hx of HTN, HLD, and PVD who presents with high gradeasymptomatic RIGHT carotid stenosis. Patient denies any symptoms concerning for stroke, TIA, or amaurosis fugax. She also denies claudication after her recent revascularization procedure. She continues to take daily ASA and statin. Vascular Hx: 08/15/17 L iliofemoral endarterectomy, B TRE stent placement (8x38mm BE) for short distance claudication Review of Systems: As per HPI Past Medical History Patient Active Problem List Diagnosis Code ??? [...] vascular disease I73.9 ??? Carotid stenosis I65.29 Past Surgical History Past Surgical History: Procedure Laterality Date ??? CHOLECYSTECTOMY ??? PRG X-RAY AORTA LEG ARTERIES N/A 08/15/2017 AORTOGRAPHY, ABD. + AYAAN. ILIOFEMORAL LE BY SERIALOGRAPHY S & I (WRVU 1.79) performed by Dorota Montaño MD at [facility] MAIN OR ??? PRO COLONOSCOPY, DIAGNOSTIC 12/06/2012 COLONOSCOPY, DIAGNOSTIC performed by Mik Dumont MD at [facility] ENDOSCOPY ??? PRO LAPAROSCOPY, SURG, REPAIR PARAESOPHAGEAL HERNIA, W/O IMPLANTATION OF MESH 02/18/2013 LAPAROSCOPIC PARAESOPHAGEAL HERNIA REPAIR W/FUNDOPLASTY, W/O MESH performed by Moncho Bowers MD at [facility] MAIN OR ??? PRO PLACE CATH FIRST ORDER ART, ABD/PELV 08/15/2017 CATHETER PLACEMENT, SELECTIVE FIRST ORDER IN ARTERIAL SYSTEM, EACH FIRST ORDER ABDOMINAL, PELVIC, OR LOWER EXTREMITY ARTERY BRANCH,WITHIN A VASCULAR FAMILY (WRVU 4.9) performed by Dorota Montaño MD at [facility] MAIN OR ? ? PRO REVSC OPEN/PERCUTANEOUS ILIAC ART W STNT PLMT&ANGIO PATRICE VSL UNILAT Bilateral 08/15/2017 REVSC OPN\PRQ ILIAC ART W\STNT PLMT & ANGIOP SAME VSL (WRVU 10) performed by Dorota Montaño MD at [facility] MAIN OR ??? PRO THROMBOENDARTECTMY ILIOFEMORAL Left 08/15/2017 @ENDARTERECTOMY, ILIOFEMORAL W OR W/O PATCH GRAFT (WRVU 19.86) performed by Dorota Montaño MD at [facility] MAIN OR ??? PRO UPPER GI ENDOSCOPY, BIOPSY 12/06/2012 EGD WITH BIOPSY performed by Mik Dumont MD at [facility] ENDOSCOPY ??? TUBAL LIGATION Functional Status/Social Hx: Social History Socioeconomic History ??? Marital status: Spouse name: Not on file ??? Number of children: Not on file ??? Years of education: Not on file ??? Highest education level: Not on file Occupational History ??? Not on file Social Needs ??? Financial resource strain: Not on file ??? Food insecurity: Worry: Not on file Inability: Not on file ??? Transportation needs: Medical: Not on file Non-medical: Not on file Tobacco Use ??? Smoking status: Former Smoker Packs/day: 2.00 Years: 30.00 Pack years: 60.00 Types: Cigarettes Last attempt to quit: 10/21/2004 Years since quittin.6 ??? Smokeless tobacco: Never Used Substance and Sexual Activity ??? Alcohol use: Yes Types: 1 Glasses of wine, 1 Cans of beer per week ??? Drug use: Never ??? Sexual activity: Not on file Lifestyle ??? Physical activity: Days per week: Not on file Minutes per session: Not on file ??? Stress: Not on file Relationships ??? Social connections: Talks on phone: Not on file Gets together: Not on file Attends jew service: Not on file Active member of club or organization: Not on file Attends meetings of clubs or organizations: Not on file Relationship status: Not on file ??? Intimate partner violence: Fear of current or ex partner: Not on file Emotionally abused: Not on file Physically abused: Not on file Forced sexual activity: Not on file Other Topics Concern ??? Not on file Social History Narrative ??? Not on file Family Hx: Negative for Thrombosis, Bleeding Disorders Medications: No current facility-administered medications on file prior to encounter. Current Outpatient Medications on File Prior to Encounter Medication Sig Dispense Refill ??? buPROPion (WELLBUTRIN) 100 mg Tablet Take 50 mg by mouth daily. ??? cholecalciferol, vitamin D3, (D3-2000 ORAL) Take by mouth. ??? rosuvastatin (CRESTOR) 20 mg Tablet Take 20 mg by mouth daily. ??? UNABLE TO FIND [facility] ??? calcium-vitamin D 500 mg(1,250mg) -200 unit Tablet Take 1 tablet by mouth 2 times daily (with meals). ??? iron polysaccharides (NIFEREX) 150 mg iron Capsule Take 65 mg by mouth daily. ??? diphenhydrAMINE (BENADRYL) 25 mg Capsule Take 25 mg by mouth nightly as needed for Itching. ??? citalopram (CELEXA) 40 mg Tablet Take 40 mg by mouth daily. ??? cetirizine (ZYRTEC) 10 mg Tablet Take 10 mg by mouth daily. ??? KRILL OIL ORAL Take 1,000 mg by mouth daily. ??? fluticasone (FLOVENT) 110 mcg/actuation HFA Aerosol Inhaler Inhale 1 puff into the lungs 2 times daily. ??? hydroCHLOROthiazide (MICROZIDE) 12.5 mg Capsule Take 12.5 mg by mouth daily. ??? levothyroxine (SYNTHROID) 50 mcg Tablet Take 50 mcg by mouth daily. Indications: Hypothyroidism ??? fluticasone (FLONASE) 50 mcg/actuation [place], Suspension 2 sprays by Each Nare route daily as needed for Rhinitis. 16 g 3 ??? multivitamin (THERAGRAN) tablet Take 1 tablet by mouth daily. ??? POLYETHYLENE GLYCOL 3350 (MIRALAX ORAL) Take by mouth as needed. ??? ziprasidone (GEODON) 20 mg capsule Take 20 mg by mouth 2 times daily (with meals). ??? aspirin 325 mg tablet Take 325 mg by mouth daily. ??? CARBOXYMETHYLCELLULOSE SODIUM (REFRESH TEARS OPHT) Apply to eye 2 times daily. ??? ezetimibe (ZETIA) 10 mg Tablet Take 10 mg by mouth daily. ??? acetaminophen (TYLENOL) 325 mg Tablet Take 650 mg by mouth every 4 hours as needed for Pain. ??? ipratropium-albuterol (DUONEB) 0.5 mg-3 mg(2.5 mg base)/3 mL Solution for Nebulization Take 3 mLs by nebulization 2 times daily. ??? FOLIC ACID ORAL (Patient taking differently: 1 tablet daily) Allergies: Latex; Hemorrhoid cream [tissue resp fact-shark mynor oil]; Kaopectate [bismuth subsalicylate]; and Lisinopril Physical Exam: Temp: [36.4 ??C (97.5 ??F)] Heart Rate: [87] Resp: [16] BP: (138)/(57) SpO2: [95 %] Heart Rate from SpO2: -- General: NAD, resting comfortably HEENT: PERRL, anicteric sclerae Neck: palpable carotid pulses bilaterally CVS: Regular rate and rhythm Pulm: Clear bilaterally Abd: soft, non tender Ext: Warm, well perfused, palpable DP pulses Neuro: strength 5/5 in all tested muscle groups, sensation to light touch intact, tongue at midline Labs: No results for input(s): WBC, HGB, HCT, PLATELET in the last 72 hours. No results for input(s): NA, K, CL, CO2, BUN, CREATININE, PHOS, CALCIUM in the last 72 hours. Imaging/Studies: Carotid Duplex (05/21/19): Findings: ?? ICA Proximal, Right ?PSV (cm/s): 514 ?EDV (cm/s): 156 ?ICA/CCA: 8.0 ?Plaque Structure: Echogenic ?Plaque Surface: Irregular ?%Stenosis: 80-99% ICA Distal, Right ?PSV (cm/s): 49 ?EDV (cm/s): 17 ?ICA/CCA: 0.8 CCA Distal, Right ?PSV (cm/s): 64 ?EDV (cm/s): 13 ?%Stenosis: Minimal CCA Proximal, Right ?PSV (cm/s): 103 ?EDV (cm/s): 10 External Carotid Artery, Right ?PSV (cm/s): 132 ?EDV (cm/s): 16 ?%Stenosis: <50% Vertebral, Right ?PSV (cm/s): 63 ?EDV (cm/s): 14 ?Direction of Flow: Antegrade ICA Proximal, Left ?PSV (cm/s): 88 ?EDV (cm/s): 24 ?ICA/CCA: 1.2 ?Plaque Structure: Echogenic ?Plaque Surface: Irregular ?%Stenosis: 16-49% ICA Distal, Left ?PSV (cm/s): 75 ?EDV (cm/s): 25 ?ICA/CCA: 1.0 CCA Distal, Left ?PSV (cm/s): 73 ?EDV (cm/s): 21 ?%Stenosis: Minimal CCA Proximal, Left ?PSV (cm/s): 69 ?EDV (cm/s): 16 External Carotid Artery, Left ?PSV (cm/s): 154 ?EDV (cm/s): 24 ?%Stenosis: <50% Vertebral, Left ?PSV (cm/s): 64 ?EDV (cm/s): 16 ?Direction of Flow: Antegrade ?? Interpretation: ?? RIGHT: There is bulky irregular (possibly ulcerated) plaque in the carotid bifurcation and proximal internal carotid artery causing 80-99% ICA stenosis based on velocity criteria. The bifurcation level is in the mid neck. ?? LEFT: There is bulky irregular plaque in the carotid bifurcation and proximal internal carotid artery causing 16-49% stenosis when compared to the more distal internal carotid artery. The bifurcation level is in the mid neck. ?? Vertebral Artery Data: Patent vertebral arteries with normal antegrade Doppler waveforms and velocities bilaterally. CTA Carotids/COW (05/23/19): severe focal stenosis in proximal R ICA at level of C3 Assessment and Plan: Ms Deleon is a 68F former smoker with a hx of HTN, HLD, and PVD who presents with high grade asymptomatic RIGHT carotid stenosis. Plan for Right CEA. Risks and benefits discussed with patient and she elects to proceed Terry Chu MD Surgery Resident documented in this encounter Miscellaneous Notes * Med Student Progress Note - Kamille Nik S - 06/11/2019 7:00 AM EDT INPATIENT DAILY PROGRESS NOTE Patient Name: Lindsey Deleon Patient Age: 68 y.o. Birthdate: 1950 Admit date: 06/10/2019 Attending Physician: Dorota Montaño MD ID: Lindsey Deleon is a 68 y.o. female with history of CHEMA, HTN, HLD, COPD, MDD, and hypothyroidism presenting with high-grade asymptomatic R carotid stenosis, now POD1 s/p R CEA. Recent events/symptoms: - Patient voided upon self out of OR, and high BS 770 mL out of OR (1631) relieved by 800 mL void. Since then, voiding freely without issues - Mild headache relieved by Tylenol - 2126: Wheezing relieved by Duoneb and inhaler - SaO2 98-99% on 2 L NC O2 overnight, and 100% on RA at 0432 - Ambulating without walker. No BM in past 24 hours - Denies CP, SOB, or weakness O: Last value Range last 24hrs Temperature Temp: 36.4 ??C (97.5 ??F) Temp: [36.4 ??C (97.5 ??F)-36.9 ??C (98.4 ??F)] Heart Rate Heart Rate: 64 Heart Rate: [59-89] Blood Pressure BP: 118/52 BP: (108-138)/(44-63) Respiratory Rate Resp: 18 Resp: [11-23] SpO2 SpO2: 100 % SpO2: [95 %-100 %] Body mass index is 29.76 kg/m??. 06/10 0701 - 06/11 0700 In: 1520 [P.O.:300; I.V.:1220] Out: 450 [Urine:400] Regular diet Intake/Output Summary (Last 24 hours) at 06/11/2019 0515 Last data filed at 06/11/2019 0438 Gross per 24 hour Intake 1520 ml Output 450 ml Net 1070 ml Physical Exam: General: NAD, A&Ox3, resting in bed, cooperative HEENT: NC/AT. Neck incision without hematoma or ecchymosis, Steri-Strips c/d/i CVS: RRR, no m/r/g Pulm: CTAB, no wheezes or rhonchi, breathing comfortably on RA Abd: soft, non-tender, non-distended, no guarding Ext: warm and well perfused, no edema Neuro: Grossly intact, nonfocal, moving all four extremities spontaneously. CN II-XII intact on testing No relevant labs or imaging. ASSESSMENT: Lindsey Deleon is a 68 y.o. female with history of CHEMA, HTN, HLD, COPD, MDD, and hypothyroidism presenting with high-grade asymptomatic R carotid stenosis, now POD1 s/p R CEA. Patient did well overnight and did not require any PRNs for pain control. Her SBP was between 110-120 and there is no concern for cerebral hyperperfusion at this time; mild headache yesterday was relieved by acetaminophen. Cranial nerves are also intact, making a retractor injury or hypoglossal nerve injury less likely. Physical exam reveals no hematoma and voice is unchanged from preoperative status. Given that she is saturating well on room air and ambulating without a walker, she is amenable to discharge to home today. She will need to return to the clinic in 1 month for unilateral carotid duplex. Problem List: - CHEMA - HTN - HLD - COPD - Hypothyroidism PLAN BY SYSTEM N: Continue acetaminophen 650 mg q4h prn for pain control CV: Continue aspirin 325 mg qd and rosuvastatin Pulm: Continue fluticasone propionate 110 mcg/actuation bid and Duoneb bid GI: Continue ezetimibe 10 mg PO qd /FE: Regular diet - Continue HCTZ 12.5 mg PO qd ID: DEYANIRA Heme: SQH, SCDs Endo: Continue levothyroxine 50 mcg qam for hypothyroidism Psych: Continue bupropion 50 mg PO qd, citalopram 40 mg PO qd, and ziprasidone 20 mg PO bid for depression DISPO: Floor, will need inpatient services for at least 24hours - Plan to discharge to home today and RTC in 1 month for unilateral carotid duplex Code status: Full Nik Simental 06/11/2019 Vascular Surgery, pager [phone] * Plan of Care - Zhanna Lou RN - 06/11/2019 3:37 AM EDT Problem: Patient Care Overview Goal: Plan of Care Review Outcome: Ongoing (Interventions Implemented as Appropriate) 06/11/19 0312 Plan of Care Review Progress progress toward functional goals as expected OUTCOME EVALUATION NOTE: OUTCOME SUMMARY: Pt arrived from PACU, VSS, AOx4. Pt reported feeling wheezy, given scheduled neb and inhaler with good effect. PLAN MOVING FORWARD: Maintain CPAP @ PM and BP 100-140. Encourage ambulation and IS. Monitor CMST of RUE. Monitor neuro status. INDIVIDUALIZED FALL PREVENTION INTERVENTIONS: Patient-specific fall risk factors per assessment: [current deficits]: Advanced age, Generalized weakness, IV site, oxygen tubing, CPAP Assistance [level of assistance required for transfers and ambulation]: Not OOB yet Supervision [direct monitoring required during toileting and ADLs]: Standby, eyes on Surveillance [continuous indirect monitoring]: lakesha Logan rounding Patient-specific fall prevention interventions for sensory deficits provided, if applicable: N/A CPG GOAL OUTCOME EVALUATION: Patient Vitals for the past 24 hrs: BP Temp Temp src Pulse Resp SpO2 Weight 06/10/19 2257 115/50 36.6 ??C (97.9 ??F) Oral -- 17 98 % -- 06/10/192015 122/51 36.7 ??C (98.1 ??F) Oral -- 18 99 % -- 06/10/19 1930 112/47 -- -- 64 13 98 % -- 06/10/19 1915 117/47 -- -- 65 17 99 % -- 06/10/19 1900 109/48 36.9 ??C (98.4 ??F) Temporal 67 12 99 % -- 06/10/19 1845 113/49 -- -- 74 23 97 % -- 06/10/19 1830 119/63 -- -- 68 22 99 % -- 06/10/19 1815 119/63 -- -- 59 11 100 % -- 06/10/19 1800 128/50 -- -- 71 18 100 % -- 06/10/19 1745 128/59 -- -- 70 18 100 % -- 06/10/19 1730 130/53 -- -- 68 18 100 % -- 06/10/19 1715 127/54 -- -- 72 23 98 % -- 06/10/19 1700 127/51 36.4 ??C (97.5 ??F) Temporal 69 16 99 % -- 06/10/19 1645 120/45 -- -- 67 18 97 % -- 06/10/19 1630 115/48 -- -- 80 18 97 % -- 06/10/19 1615 108/44 -- -- 82 16 97 % -- 06/10/19 1556 118/51 36.5 ??C (97.7 ??F) Temporal 89 16 98 % -- 06/10/19 1044 138/57 36.4 ??C (97.5 ??F) Oral 87 16 95 % 76.2 kg (168 lb) Goal: Individualization & Mutuality Outcome: Ongoing (Interventions Implemented as Appropriate) 06/11/19311 Individualization Patient Specific Preferences Call me Danilo Patient Specific Goals recovery and discharge Patient Specific Interventions BP 100-140, 2L NC, CPAP @ PM Mutuality/Individual Preferences What Information Would Help Us Give You More Personalized Care? right-sided headache Goal: Fall Prevention-Safe Patient Handling Outcome: Ongoing (Interventions Implemented as Appropriate) 06/10/19212906/11/19311 Daily Care Interventions Self-Care Promotion -- independence encouraged Elmore Fall Risk History of Falling 0 -- Secondary Diagnosis 15 -- Ambulatory Aids 0 -- Intravenous Therapy/Heparin/Saline Lock 20 -- Gait/Transferring 10 -- Mental Status 0 -- Score 45 -- OTHER Elmore Fall Risk High -- Restraint Interventions Safety Promotion/Fall Prevention activity supervised;fall prevention program maintained;nonskid shoes/slippers when out of bed;safety round/check completed -- Positioning Body Position independent -- Activity Activity Type activity adjusted per tolerance -- Activity Assistance Provided assistance, 1 person -- Goal: Infection Control Outcome: Ongoing (Interventions Implemented as Appropriate) 06/10/192129 Safety Interventions Isolation Precautions standard precautions maintained Infection Prevention environmental surveillance performed;rest/sleep promoted;single patient room provided Coping Strategies Supportive Measures active listening utilized;counseling provided;decision- making supported;goal setting facilitated;positive reinforcement provided;problem solving facilitated;self-care encouraged;self-responsibility promoted;verbalization of feelings encouraged Goal: Discharge Needs Assessment Outcome: Ongoing (Interventions Implemented as Appropriate) 06/11/19311 Discharge Needs Assessment Discharge Disposition still a patient Goal: Interdisciplinary Rounds/Family Conf Outcome: Ongoing (Interventions Implemented as Appropriate) 06/11/19311 Interdisciplinary Rounds/Family Conf Participants nursing;patient;physician * Op Note - Terry Chu MD - 06/10/2019 3:46 PM EDT [facility] [place] Patient Name: Lindsey Deleon : [id number] MR#: [id number] Case Date: 06/10/2019 Surgeon: Surgeon(s) and Role: * Dorota Montaño MD - Primary * Terry Chu MD - Resident Preoperative diagnosis: Asymptomatic R Carotid Artery Stenosis Postoperative diagnosis: Asymptomatic R Carotid Artery Stenosis Procedure(s) (LRB): @ENDARTERECTOMY, CAROTID, VERTEBRAL,SUBCLAVIAN W\WO PATCH GRAFT (WRVU 21.16) (Right) 1. Right Carotid Endarterectomy with Patch Angioplasty Findings: ICA with focal plaque in proximal portion causing severe narrowing, endarterectomy performed of common, internal, and external carotid arteries, vessels repaired with patch angioplasty; patient fully neuro intact at end of case Anesthesia: General Estimated Blood Loss: 50cc Heparin 9000 units Protamine 15 mg Specimens removed during surgery: None Drains: none Surgical Closure: Primary Closure - skin incision is completely closed without any wires, michael, drains or other devices Disposition: awakened from anesthesia, extubated and taken to the recovery room in a stable condition, having suffered no apparent untoward event. Condition: doing well without problems (Please see the Surgical Encounter Summary for any Implant and Specimen details pertinent to this patient.) HPI/Surgical Indications: Ms Deleon is a 68F former smoker with a hx of HTN, HLD, and PVD who presents with high grade asymptomatic RIGHT carotid stenosis. Patient denies any symptoms concerning for stroke, TIA, or amaurosis fugax. She also denies claudication after her recent revascularization procedure. She continues to take daily ASA and statin. Plan for Right carotid endarterectomy. Risks and benefits discussed with patient and she elects to proceed Procedure Description: After informed consent was obtained the patient was brought back to the operating room and positioned supine on the OR table. General anesthesia was induced and the patient wasintubated with an ETT. Additional support lines (newman, arterial line, PIVs) were placed. Preoperative antibiotics were given. A timeout was performed. Attention was then turned to the patient's right neck, which was prepped and draped in the standard sterile fashion. A longituidnal incision was made along the sternocleidomastoid. The subcutaneous tissue and platysma were divided using a combination of blunt, sharp, and electrocautery dissection. The sternocleidomastoid and internal jugular vein was retracted laterally to expose the bifurcation. The common carotid artery, external carotid artery, superior thyroid artery and internal carotid artery were each circumferentially dissected and encircled with vessel loops.The vagus and hypoglossal nerves were identified and preserved. Satisfied with our exposure, systemic heparin was given. The internal, common and external carotid arteries were clamped. An arteriotomy was performed in a longitudinal fashion with an 11 blade. This was extended onto thecommon carotid artery proximally and the internal carotid artery distally using Pott's scissors. Using a Beatty elevator, endarterectomy of the common carotid and internal carotid arteries was performed. The distal internal carotid artery plaque was feathered off. Eversion endarterectomy of the external carotid artery was performed and the carotid plaque was removed. Once this was removed, the endarterectomy site was inspected for loose arterial wall tissue that was removed with fine forceps. The endarterectomy endpoints were inspected to ensure that they were adequate. Once we were satisfied with our dissection endarterectomy, bovine pericardial patch angioplasty was performed in a standardfashion with 6-0 Prolene sutures. Once this was nearly complete, the arteries were flushed to expelany air or debris. The patch angioplasty was then completed and the carotid artery was re-perfused.Doppler exam demonstrated no evidence of flow-limiting stenosis. Once we were satisfied with our results, protamine was administered to reverse the heparin. Hemostasis was achieved with gelfoam, surgicel, and bovie. The wound was then closed in layers by reapproximating the sternocleidomastoid muscle followed by the platysma. Skin was closed with 4-0 Monocryl and covered with Dermabond and steristrips. The patient was awoken from anesthesia, noted to be neurologically intact and transferred to the Recovery Room in stable condition. All sponge and needle counts were correct at the conclusion of the case. Dr. Montaño was present and scrubbed for the entire procedure. Infection Bundle used? N/A; ancef 2g Associated attestation - Dorota Montaño MD - 06/11/2019 11:09 AM EDT Attestation: Case Date: 06/10/2019 I was present and I participated during the entire procedure (does not need to include opening and closing). Dorota Montaño MD 06/11/2019 documented in this encounter Plan of Treatment Upcoming Encounters Date Type Department Care Team (Late st Contact Info) Description 02/06/2025 2:40 PM EDT Office Visit Cardiology at [address] [place] [address] Rigoberto Diaz MD [facility] [place] [address] Scheduled Procedures Name Priority Associated Diagnoses Date/Ti me EGD, UPPER GI ENDOSCOPY (WRV U 2.09) Incontinence of feces, unspecified fecal incontinence type Dysphagia, unspecified type COLONOSCOPY, DIAGNOSTIC (WRV U 3.26) Incontinence of feces, unspecified fecal incontinence type Dysphagia, unspecified type documented as of this encounter Procedures Procedure Name Priority Date/Time Associated Diagnosis Comments BLOOD GAS 2 ARTERIAL Routine 06/10/2019 12:58 PM EDT @ENDARTERECTOMY, CAROTID, VERTEBRAL,SUBCLAVIA N W\WO PATCH GRAFT (WRVU 21.16) 06/10/2019 12:03 PM EDT Carotid stenosis ENDART, CAROTID, VERTEBRAL,SUBCLAVIA N W\WO PATCH GRAFT, BY NECK INCIS Routine 06/10/2019 10:30 AM EDT documented in this encounter Results * Carotid Duplex, Unilateral (07/15/2019 1:45 PM EDT) VB Text Report Department: Vascular Surgery Lab Patient: [id number] (LINDSEY DELEON) CPT: 97423 ICD10: I65.23 Referring Physician: DOROTA MONTAÑO MD [...] Dorota Montaño MD VASCULAR ORDERABLES VASCUBASE * (ABNORMAL) BLOOD GAS 2 ARTERIAL (06/10/2019 12:58 PM EDT) Pathologist [facility] pH Art 7.42 7.35 - 7.45 [facility] pCO2 Art 37 35 - 45 mmHg [facility] pO2 Art 257(H) 85 - 104 mmHg [facility] HCO3 Art 23.5 20.0 - 26.0 mmol/L [facility] [place] Art -1.3 -3.0 - 3.0 mmol/L [facility] Hgb Blood Gas 12.7 11.7 - 15.5 gm/dL [facility] [place] O2HB Art 98.5(H) 94.0 - 97.0 % [facility] COHB Art 0.6 % [facility] Comment: Nonsmokers: 0.5-1.5% COHB Smokers: Variable, but usually less than 10% Toxic: 20-30% COHB Lethal: Greater than 60% COHB METHB Art 0.3 <=1.5 % [facility] Na Whole Blood 134(L) 135 - 145 mmol/L [facility] K Whole Blood 3.5 3.5 - 5.0 mmol/L [facility] Comment: Please note: Patients with WBC >100,000 may have falsely elevated Potassium levels. Contact the Clinical Chemistry Laboratory if there are any questions. ICa Whole Blood 1.17 1.15 - 1.33 mmol/L [facility] Comment: Note: ??Total bilirubin higher than 20 mg/dL may lead to falsely low ionized calcium. CL Whole Blood 101 98 - 107 mmol/L [facility] Gluc Whole Bld 116 65 - 199 mg/dL [facility] Comment:Diabetes: >=200 mg/d L plus symptoms. Lactate WB 0.7 0.5 - 2.2 mmol/L [facility] FIO2 Art 59 % [facility] PF Ratio Art 436 [facility] Temp Art 35.7 Celsius [facility] Blood specimen (specimen) 06/10/2019 12:58 PM EDT 06/10/2019 12:58 PM EDT Dorota Montaño MD CHEMISTRY ORDERABLES [facility] [place] [address] documented in this encounter Visit Diagnoses Not on filedocumented in this encounter Admitting Diagnoses Diagnosis Carotid stenosis Occlusion and stenosis of carotid artery without mention of cerebral infarction documented in this encounter Administered Medications Inactive Administered Medications - up to 3 most recent administrations Medication Order MAR Action Action Date Dose Rate Site acetaminophen (TYLENOL) tablet 650 mg 650 mg, Oral, EVERY 4 HOURS PRN, Starting on Mon06/10/19 at 1626, Until Mon06/11/19 at 1252, Pain, Maximum dose of acetaminophen is 4000 mg from all sources in 24 hours., Routine Given 06/10/2019 8:00 PM EDT 650 mg Given 06/10/2019 4:30 PM EDT 650 mg aspirin tablet 325 mg 325 mg, Oral, DAILY, First dose on Mon06/11/19 at 0900, Until Discontinued, Routine Given 06/11/2019 9:21 AM EDT 325 mg buPROPion (WELLBUTRIN) tablet 50 mg 50 mg, Oral, DAILY, First dose on Mon06/11/19 at 0900, Until Discontinued, Routine Given 06/11/2019 9:20 AM EDT 50 mg citalopram (CeleXA) tablet 40 mg 40 mg, Oral, DAILY, First dose on Mon06/10/19 at 2045, Until Discontinued, Routine Given 06/11/2019 9:21 AM EDT 40 mg Given 06/10/2019 9:07 PM EDT 40 mg ezetimibe (ZETIA) tablet 10 mg 10 mg, Oral, DAILY, First dose on Mon06/11/19 at 0900, Until Discontinued, Routine Given 06/11/2019 9:27 AM EDT 10 mg fluticasone propionate (FLOVENT) 110 mcg/actuation inhaler 1 puff 1 puff, Inhalation, 2 TIMES DAILY, First dose on Mon06/10/19 at 2130, Until Discontinued, Shake well; Rinse mouth after administration., Routine Given 06/11/2019 9:28 AM EDT 1 puff Given 06/10/2019 10:53 PM EDT 1 puff heparin (Porcine) subcutaneous injection 5,000 Units 5,000 Units, Subcutaneous, EVERY 8 HOURS SCHEDULED, First dose on Mon06/11/19 at 0600, Until Discontinued, Routine Given 06/11/2019 5:42 AM EDT 5,000 Unit s hydroCHLOROthiazide (HYDRODIURIL) tablet 12.5 mg 12.5 mg, Oral, DAILY, First dose on Mon06/10/19 at 2045, Until Discontinued, Hold for SBP < 100, Routine Given 06/11/2019 9:22 AM EDT 12.5 mg ipratropium-albuterol (DUONEB) 0.5 mg-3 mg(2.5 mg base)/3 mL nebulizer solution 3 mL 3 mL, Nebulization, 2 TIMES DAILY, First dose on Mon06/10/19 at 2100, Until Discontinued, Routine Given 06/10/2019 9:27 PM EDT 3 mLs levothyroxine (SYNTHROID) tablet 50 mcg 50 mcg, Oral, EVERY MORNING, First dose on Mon06/11/19 at 0600, Until Discontinued, Routine Given 06/11/2019 5:40 AM EDT 50 mcg ondansetron (ZOFRAN) injection 4-8 mg 4-8 mg, Intravenous, EVERY 8 HOURS PRN, Starting on Mon06/10/19 at 2025, Until Mon06/11/19 at 1252, Nausea, Start with 4mg and if ineffective in 30 minutes, give an additional 4mg If multiple antiemetics are ordered, give ondansetron first. ondansetron (ZOFRAN) tablet 4-8 mg 4-8 mg, Oral, EVERY 8 HOURS PRN, Starting on Mon06/10/19 at 2025, Until Mon06/11/19 at 1252, Nausea, Vomiting, If multiple antiemetics are ordered, use ondansetron first. PO Preferred. If patient unable to take PO, may give IV if ordered. Start with 4mg and if ineffective in 45 minutes, give an additional 4mg. If unable to take PO, may give IV., Routine rosuvastatin (CRESTOR) tablet 20 mg 20 mg, Oral, DAILY, First dose on Mon06/10/19 at 2045, Until Discontinued, Routine Given 06/11/2019 9:20 AM EDT 20 mg Given 06/10/2019 9:06 PM EDT 20 mg senna-docusate (PERICOLACE) 8.6-50 mg per tablet 2 tablet 2 tablet, Oral, 2 TIMES DAILY, First dose on Mon06/10/19 at 2100, Until Discontinued, Routine Given 06/11/2019 9:20 AM EDT 2 tablets Given 06/10/2019 9:06 PM EDT 2 tablets sodium chloride 0.9 % (flush) flush 5 mL 5 mL, Intravenous, 2 TIMES DAILY, First dose on Mon06/10/19 at 2100, Until Discontinued, Routine Given 06/10/2019 9:08 PM EDT 5 mLs ziprasidone (GEODON) capsule 20 mg 20 mg, Oral, 2 TIMES DAILY WITH MEALS, First dose on Mon06/10/19 at 2130, Until Discontinued, May cause prolongation of QT interval. Administer with a meal containing at least 500 calories., Routine Given 06/11/2019 9:23 AM EDT 20 mg Given 06/10/2019 10:51 PM EDT 20 mg documented in this encounter Active and Recently Administered Medications Times are shown in EDT. Scheduled Medication Order 06/09/2019 06/10/2019 06/11/2019 aspirin tablet 325 mg 325 mg, Oral, DAILY, First dose on Mon06/11/19 at 0900, Until Discontinued, Routine 0921 (Given - Provid er: Magnolia Piper RN) buPROPion (WELLBUTRIN) tablet 50 mg 50 mg, Oral, DAILY, First dose on Mon06/11/19 at 0900, Until Discontinued, Routine 0920 (Given - Provid er: Magnolia Piper RN) ceFAZolin (ANCEF) 2g in dextrose 5% 100 mL (COMPLETED) 2 g, Intravenous, ONCE, 1 dose, On Mon06/10/19 at 1115, Administer over 30 Minutes, Redose every 3 hours if CrCl is greater than 20. Redose every 8 hours if CrCl is less than 20., Day of Surgery (Day of Procedure), Indication for (Active or Suspected): Prophylaxis 1225 (Given - Provider: Brooke Thomason CRNA - Comment: administered over 20 minutes)1525 (Given - Provider: Brooke Thomason CRNA - Comment: administered over 20 minutes) citalopram (CeleXA) tablet 40 mg 40 mg, Oral, DAILY, First dose on Mon06/10/19 at 2045, Until Discontinued, Routine 2106 (Given - Provider: Zhanna Lou RN) 09 (Given - Provider: Magnolia Piper RN) ezetimibe (ZETIA) tablet 10 mg 10 mg, Oral, DAILY, First dose on Mon06/11/19 at 0900, Until Discontinued, Routine 926 (Given - Provid er: Magnolia Piper RN) fluticasone propionate (FLOVENT) 110 mcg/actuation inhaler 1 puff 1 puff, Inhalation, 2 TIMES DAILY, First dose on Mon06/10/19 at 2130, Until Discontinued, Shake well; Rinse mouth after administration., Routine 2252 (Given - Provider: Zhanna Lou RN) 927 (Given - Provider: Magnolia Piper RN) heparin (Porcine) subcutaneous injection 5,000 Units 5,000 Units, Subcutaneous, EVERY 8 HOURS SCHEDULED, First dose on Mon06/11/19 at 0600, Until Discontinued, Routine 05 (Given - Provid er: Zhanna Lou RN) hydroCHLOROthiazide (HYDRODIURIL) tablet 12.5 mg 12.5 mg, Oral, DAILY, First dose on Mon06/10/19 at 2044, Until Discontinued, Hold for SBP < 100, Routine 2102 (Not Given - Provider: Zhanna Lou RN - Reason: Contraindicated) 09 (Given - Provider: Magnolia Piper RN) ipratropium-albuterol (DUONEB) 0.5 mg-3 mg(2.5 mg base)/3 mL nebulizer solution 3 mL 3 mL, Nebulization, 2 TIMES DAILY, First dose on Mon06/10/19 at 2100, Until Discontinued, Routine 2126 (Given - Provider: Zhanna Lou RN) 0900 (Not Given - Provider: Magnolia Piper RN - Reason: Patient/family refused) levothyroxine (SYNTHROID) tablet 50 mcg 50 mcg, Oral, EVERY MORNING, First dose on Mon06/11/19 at 0600, Until Discontinued, Routine 0540 (Given - Provid er: Zhanna Lou RN) rosuvastatin (CRESTOR) tablet 20 mg 20 mg, Oral, DAILY, First dose on Mon06/10/19 at 2045, Until Discontinued, Routine 2105 (Given - Provider: Zhanna Lou RN) 0920 (Given - Provider: Magnolia Piper, RANGEL) senna-docusate (PERICOLACE) 8.6-50 mg per tablet 2 tablet 2 tablet, Oral, 2 TIMES DAILY, First dose on Mon06/10/19 at 2100, Until Discontinued, Routine 2105 (Given - Provider: Zhanna Lou RN) 0920 (Given - Provider: Magnolia Piper RN) sodium chloride 0.9 % (flush) flush 5 mL 5 mL, Intravenous, 2 TIMES DAILY, First dose on Mon06/10/19 at 2100, Until Discontinued, Routine 2107 (Given - Provider: Zhanna Lou RN) 0900 (Not Given - Provider: Magnolia Piper RN - Reason: See comment - Comment: being discharged,) ziprasidone (GEODON) capsule 20 mg 20 mg, Oral, 2 TIMES DAILY WITH MEALS, First dose on Mon06/10/19 at 2130, Until Discontinued, May cause prolongation of QT interval. Administer with a meal containing at least 500 calories., Routine 2251 (Given - Provider: Zhanna Lou RN - Comment: recieved from [employer]) 0923 (Given - Provider: Magnolia Piper RN) Continuous Medication Order 06/09/2019 06/10/2019 06/11/2019 lactated ringers infusion (CANCELED) 1,000 mL, at 100 mL/hr, Intravenous, CONTINUOUS, Starting on Mon06/10/19 at 1115, Until Mon06/10/19 at 1951, Day of Surgery (Day of Procedure) 1050 (New Bag - Provider: Brooke Thomason CRNA - Comment: started by EL pre-op)1300 (Anesthesia Volume Adjustment - Provider: Brooke Thomason CRNA)1400 (Anesthesia Volume Adjustment - Provider: Brooke Thomason CRNA)1500 (Canceled Entry - Provider: Brooke Thomason CRNA)1530 (Stopped - Provider: Brooke Thomason CRNA) PRN Medication Order 06/09/2019 06/10/2019 06/11/2019 acetaminophen (TYLENOL) tablet 650 mg 650 mg, Oral, EVERY 4 HOURS PRN, Starting on Mon06/10/19 at 1626, Until Mon06/11/19 at 1252, Pain, Maximum dose of acetaminophen is 4000 mg from all sources in 24 hours., Routine 1630 (Given - Provider: Tona Montague RN)1999 (Given - Provider: Jovana Montague RN) fluticasone propionate (FLONASE) 50 mcg/actuation nasal spray 2 spray 2 spray, Each Nare, DAILY PRN, Starting on Mon06/10/19 at 202, Until Mon06/11/19 at 1252, Rhinitis, Routine hydrALAZINE (APRESOLINE) injection 5 mg 5 mg, Intravenous, EVERY 2 HOURS PRN, Starting on Mon06/10/19 at 2025, Until Mon06/11/19 at 1252, High Blood Pressure, SBP > 140, HR < 60 or unresponsive to labetalol, Routine labetalol (NORMODYNE,TRANDATE) injection 10 mg 10 mg, Intravenous, EVERY 2 HOURS PRN, Starting on Mon06/10/19 at 202, Until Mon06/11/19 at 1252, High Blood Pressure, SBP > 140; HR > 60, Routine lidocaine (XYLOCAINE) 10 mg/mL (1 %) injection 3 mg 3 mg (0.3 mL), Subcutaneous, ONCE PRN, 1 dose, Starting on Mon06/10/19 at 202, Until Mon06/11/19 at 1252, for discomfort with PIV insertion, Routine ondansetron (ZOFRAN) injection 4-8 mg(Linked Group 1) 4-8 mg, Intravenous, EVERY 8 HOURS PRN, Starting on Mon06/10/19 at 202, Until Mon06/11/19 at 1252, Nausea, Start with 4mg and if ineffective in 30 minutes, give an additional 4mg If multiple antiemetics are ordered, give ondansetron first. ondansetron (ZOFRAN) tablet 4-8 mg(Linked Group 1) 4-8 mg, Oral, EVERY 8 HOURS PRN, Starting on Mon06/10/19 at 202, Until Mon06/11/19 at 1252, Nausea, Vomiting, If multiple antiemetics are ordered, use ondansetron first. PO Preferred. If patient unable to take PO, may give IV if ordered. Start with 4mg and if ineffective in 45 minutes, give an additional 4mg. If unable to take PO, may give IV., Routine sodium chloride 0.9 % (flush) flush 5-20 mL 5-20 mL, Intravenous, EVERY 1 MIN PRN, Starting on Mon06/10/19 at 1626, Until Mon06/11/19 at 1252, flush, Flush pertains to all indwelling lines. Flush per protocol found in the job aid using the link provided on this medication record., Routine Linked Groups Order Group 1: ondansetron (ZOFRAN) tablet 4-8 mgJump to med 4-8 mg, Oral, EVERY 8 HOURS PRN, Starting on Mon06/10/19 at 2026, Until Mon06/11/19 at 1252, Nausea, Vomiting, If multiple antiemetics are ordered, use ondansetron first. PO Preferred. If patient unable to take PO, may give IV if ordered. Start with 4mg and if ineffective in 45 minutes, give an additional 4mg. If unable to take PO, may give IV., Routine Or ondansetron (ZOFRAN) injection 4-8 mgJump to med 4-8 mg, Intravenous, EVERY 8 HOURS PRN, Starting on Mon06/10/19 at 2026, Until Mon06/11/19 at 1252, Nausea, Start with 4mg and if ineffective in 30 minutes, give an additional 4mg If multiple antiemetics are ordered, give ondansetron first. documented in this encounter Care Teams Pinmaker Relationship Specialty Start Date End Date Vanita Churchill, PROBE OPERATOR PCP - General Family Medicine 02/27/19 documented as of this encounter
--- OUTSIDE RECORDS SUMMARY | 2024-06-14 01:48 | XMS_ITS | Encounter Summary ---
[place] [address] Care Team Providers Care Substation Superintendent Name Role Phone Vanita Churchill POULTRY KILLER Primary Care Provider [phone] Reason for Visit * Reason Comments Carotid Stenosis s/p r cea 1 mos chec k Encounter Details Date Type Department Care Team (Late st Contact Info) Description 07/15/2019 2:30 PM EDT Office Visit [place] [address] Jake Montaño MD [facility] [place] [address] Stenosis of right carotid artery Social History [...] Sign Reading Time Taken Comments Blood Pressure 131/59 07/15/2019 2:32 PM EDT Pulse 80 07/15/2019 2:32 PM EDT Temperature - - Respiratory Rate 18 07/15/2019 2:32 PM EDT Oxygen Saturation - - Inhaled Oxygen Concentration - - Weight 75.8 kg (167 lb) 07/15/2019 2:32 PM EDT Height 163.8 cm (5' 4.5) 07/15/2019 2:32 PM EDT Body Mass Index 28.22 07/15/2019 2:32 PM EDT documented in this encounter Progress Notes * Jake Montaño MD - 07/15/2019 2:30 PM EDT Vascular Surgery Clinic Visit July 15, 2019 CC: Patient is a 68 y.o. female who is here for postoperative visit following right CEA on 06/10/19. 08/15/17 L iliofemoral endarterectomy, B TRE stent placement (8x38mm BE) for short distance claudication 06/10/19 R CEA for asymptomatic severe stenosis ?? Presents for scheduled postoperative visit. Doing well without any symptoms concerning for stroke, TIA, or amaurosis fugax. Did have what appeared to be an allergic reaction to most likely chloroprep on the right neck whichhas resolved. ?? Denies any??claudication symptoms. No rest pain or non-healing wounds. ?? ROS is??negative??for history of CAD or CP. Has baseline SOB from COPD. ??Does not use home O2 and denies hospitalizations for COPD exacerbations. No history of DM. ?? Is a past smoker, having quit in 2003. ? PMH:??HTN, COPD, GERD, hypothyroidism,??lap hiatal hernia repair, bebo All:??latex Meds include:??ASA, HCTZ, crestor, zetia, flovent, duoneb, zyrtec,??synthroid,??celexa, wellbutrin ? Tob:??quit '04 ? Physical Exam: On exam, she??is in NAD, RRR, CTA B, Abd soft/NT/ND. Right neck incision well-healed. Palpable DPs bilaterally. No open lesions on either foot. Neuro non-focal. ?? Labs: Fixed Capital Clerk (05/21/19): 1.04 No results available for lipid panel or HA1C. Imaging studies: I have personally reviewed the following imaging studies. Carotid duplex (07/15/19): Interpretation: ?? RIGHT: A thin layer of circumferential plaque is present in the common carotid artery causing minimal stenosis. Widely patent internal carotid artery with < 15% stenosis when compared to the more distal internal carotid artery. The bifurcation level is in the mid neck. Significant improvement compared to pre-op exam. ? Vertebral Artery Data: Patent vertebral artery with normal antegrade Doppler waveforms and velocities. ?? Previous Carotid Studies: Date ?RIGHT ICA Stenosis ??PSV ?? Ratio ?? LEFT ICA Stenosis ?? PSV ?? Ratio ? 80-99% ? 514 ?? 8.00 ? 16-49% ? 88 ?1.20 Current Exam ? <15% ? 96 ?1.20 ? n/a ?n/a ?? n/a A/P: 68yo female s/p R CEA for asymptomatic severe stenosis doing well. -con't asa and statin -con't smoking cessation -f/u 1yr with carotid duplex and MARIYA Jake Montaño MD documented in this encounter Plan of Treatment Upcoming Encounters Date Type Department Care Team (Late st Contact Info) Description 02/06/2025 2:40 PM EDT Office Visit Cardiology at [address] [place] [address] Rigoberto Diaz MD [facility] [place] [address] Scheduled Procedures Name Priority Associated Diagnoses Date/Ti [...] infarction documented in this encounter Care Teams Substation Superintendent Relationship Specialty Start Date End Date Vanita Churchill, POULTRY KILLER PCP - General Family Medicine 02/27/19 documented as of this encounter
--- OUTSIDE RECORDS SUMMARY | 2024-06-14 01:48 | XMS_ITS | Encounter Summary ---
Author Organization [facility] [place] [address] Care Team Providers Care Licensed Psychiatric Technician Name Role Phone Vanita Churchill KYARA Primary Care Provider [phone] Encounter Details Date Type Department Care Team (Late st Contact Info) Description 07/21/2020 Orders [place] [phone] Delmis Camargo CMA Stenosis of right carotid artery; PVD (peripheral [...] PM EDT Office Visit Cardiology at [address] [place] [phone] Rigoberto Diaz MD [facility] [place] [address] Scheduled Procedures Name Priority Associated Diagnoses Date/Ti me EGD, UPPER GI ENDOSCOPY (WRV U 2.09) Incontinence of feces, unspecified fecal incontinence type Dysphagia, unspecified type COLONOSCOPY, DIAGNOSTIC (WRV U 3.26) Incontinence of feces, unspecified fecal incontinence type Dysphagia, unspecified type documented as of this encounter Results * Carotid Duplex, Bilateral (07/12/2021 12:17 PM EDT) VB Text Report Department: Vascular Surgery Lab Patient: [id number] (LINDSEY FIGUEREDO) CPT: 87823 ICD10: I73.9;I65.23;I65.2 1 Referring Physician: DOROTA MONTAÑO [...] Dorota Montaño MD VASCULAR ORDERABLES VASCUBASE * MARIYA, legs, multiple levels (07/12/2021 12:17 PM EDT) VB Text Report Department: Vascular Surgery Lab Patient: [id number] (FIGUEREDOOBDULIA MURILLOSA) CPT: 01563 ICD10: I73.9;I70.213;I6 5.21 Referring Physician: DOROTA MONTAÑO [...] unspecified documented in this encounter Care Teams Licensed Psychiatric Technician Relationship Specialty Start Date End Date Vanita Churchill, ROUTE CONTRACTOR PCP - General Family Medicine 02/27/19 documented as of this encounter
--- OUTSIDE RECORDS SUMMARY | 2024-06-14 01:48 | XMS_ITS | Encounter Summary ---
[place] [address] Care Team Providers Care Insight Director Name Role Phone Vanita Churchill Omra SPARROW Primary Care Provider [phone] Encounter Details Date Type Department Care Team (Late st Contact Info) Description 05/12/2020 Ancillary Procedure Radiology at [facility] [address] [place] [address] Fany Cates MD [address] [place] [address] Social History Tobacco Use Types Packs/Day Years [...] 2:40 PM EDT Office Visit Cardiology at [address] [address] Rigoberto Diaz MD [facility] [place] [address] Scheduled Procedures Name Priority Associated Diagnoses Date/Ti me EGD, UPPER GI ENDOSCOPY (WRV U 2.09) Incontinence of feces, unspecified fecal incontinence type Dysphagia, unspecified type COLONOSCOPY, DIAGNOSTIC (WRV U 3.26) Incontinence of feces, unspecified fecal incontinence type Dysphagia, unspecified type documented as of this encounter Procedures Procedure Name Priority Date/Time Associated Diagnosis Comments FILM LIBRARY STORAGE ONLY MR SPINE Routine 05/12/2020 12:00 AM EDT documented in this encounter Results * Film Library- Storage Only MR Spine (05/12/2020 12:00 AM EDT) Narrative MASOOD - 06/04/2021 1:08 PM EDT This exam is auto-finalizing. It's purpose is for storage only. Fany Cates MD IMG FILM LIBRARY ORDERABLES [place], [place] documented in this encounter Visit Diagnoses Not on filedocumented in this encounter Care Teams Insight Director Relationship Specialty Start Date End Date Vanita Churchill APRN PCP - General Family Medicine 02/27/19 documented as of this encounter
--- OUTSIDE RECORDS SUMMARY | 2024-06-14 01:48 | XMS_ITS | Encounter Summary ---
[place] [address] Care Team Providers Care Communications Executive Name Role Phone Vanita Churchill Omar SPARROW Primary Care Provider [phone] Encounter Details Date Type Department Care Team (Late st Contact Info) Description 05/23/2019 4:00 PM EDT Office [place] [phone] Jake Montaño MD [facility] [place] [address] Stenosis of right carotid artery Social History [...] Sign Reading Time Taken Comments Blood Pressure 144/63 05/23/2019 4:06 PM EDT Pulse 74 05/23/2019 4:05 PM EDT Temperature - - Respiratory Rate - - Oxygen Saturation - - Inhaled Oxygen Concentration - - Weight 76.2 kg (168 lb) 05/23/2019 4:05 PM EDT Height 160 cm (5' 3) 05/23/2019 4:05 PM EDT Body Mass Index 29.76 05/23/2019 4:05 PM EDT documented in this encounter Progress Notes * Jake Montaño MD - 05/23/2019 4:00 PM EDT Vascular Surgery Clinic Visit May 23, 2019 CC: Patient is a 68 y.o. female who is here for follow up of carotid stenosis. 08/15/17 L iliofemoral endarterectomy, B TER stent placement (8x38mm BE) for short distance claudication ?? Presents for scheduled follow up visit following head/neck CTA. Had a screening carotid duplex showing high grade right carotid stenosis. Remains asymptomatic with nothing concerning for stroke, TIA, or amaurosis fugax. Denies any??claudication symptoms. No rest pain or non-healing wounds. ?? ROS is??negative??for history of CAD or CP. Has baseline SOB from COPD. ??Does not use home O2 and denies hospitalizations for COPD exacerbations. No history of DM. ?? Is a past smoker, having quit in 2003. ? PMH:??HTN, COPD, GERD, hypothyroidism,??lap hiatal hernia repair, bebo All:??latex Meds include:??ASA, HCTZ, crestor, zetia, flovent, duoneb, zyrtec,??synthroid,??celexa ? Tob:??quit '04 ? Physical Exam: On exam, she??is in NAD, RRR, CTA B, Abd soft/NT/ND. Palpable carotid and radial pulses bilaterally. Palpable DPs bilaterally. No open lesions on either foot. Labs: Paint Dipper (05/21/19): 1.04 No results available for lipid panel or HA1C. Imaging studies: I have personally reviewed the following imaging studies. Head/neck CTA (05/23/19): High grade R ICA stenosis A/P: 68yo female with severe asymptomatic right carotid stenosis. Discussed risks and benefits of CEA and patient wishes to proceed. Will plan for R CEA, tentatively scheduled for 7/15/19. -con't asa and statin -R CEA tentatively planned for 06/10/19 Jake Montaño MD documented in this encounter Plan of Treatment Upcoming Encounters Date Type Department Care Team (Late st Contact Info) Description 02/06/2025 2:40 PM EDT Office Visit Cardiology at [address] [place] [phone] Rigoberto Diaz MD [facility] [place] [address] Scheduled Procedures Name Priority Associated Diagnoses Date/Ti [...] infarction documented in this encounter Care Teams Communications Executive Relationship Specialty Start Date End Date Vanita Churchill, POWER PLANT OPERATOR APPRENTICE PCP - General Family Medicine 02/27/19 documented as of this encounter
--- OUTSIDE RECORDS SUMMARY | 2024-06-14 01:48 | XMS_ITS | Encounter Summary ---
Author Organization [facility] [place] [address] Care Team Providers Care Nurse Discharge Planner Name Role Phone Vanita Churchill RESTAURANT CASHIER Primary Care Provider [phone] Reason for Visit * Auth/Cert Specialty Diagnoses / Procedures Referred By Emy castillo Referred To Contact Diagnoses Carotid stenosis Procedures PRO THROMBOENDARTECTMY NECK, NECK INCIS @ENDARTERECTOMY, CAROTID, VERTEBRAL,SUBCLAVIAN W\WO PATCH GRAFT (WRVU 21.16) Referral ID Status Reason Start Date Expiration Date Visits Re quested Visits Authorized [id number] 1 1 Encounter Details Date Type Department Care Team (Latest Contact Info) Description 06/10/2019 10:24 AM EDT - 06/11/2019 10:47 AM EDT Hospital Encounter [address] [place] [address] Dorota Montaño MD [facility] [place] [address] Bilateral carotid artery stenosis Discharge Disposition: Home Social History Tobacco [...] Sign Reading Time Taken Comments Blood Pressure 119/50 06/11/2019 8:37 AM EDT Pulse 64 06/10/2019 7:30 PM EDT Temperature 36.9 ??C (98.4 ??F) 06/11/2019 8:37 AM ED T Respiratory Rate 18 06/11/2019 8:37 AM EDT Oxygen Saturation 99% 06/11/2019 8:37 AM EDT Inhaled Oxygen Concentration - - [...] or questions please call our office at [phone] TERESA Sousa, pathology technician Nurse Clinician For issues on weeknights after 5pm and weekends please call [phone] and ask for the Vascular Fellow crew person. General Instructions None Future Appointments and Orders Future Appointments and Orders Future Appointments Provider Department Dept Phone 07/15/2019 2:00 PM Avel Miller RVT Vascular Lab at [place] Arrive at: Pulpit Operator Area [phone] 07/15/2019 2:30 PM Dorota Montaño MD Vascular Surgery at [place] Arrive at: Pulpit Operator Area [phone] 03/19/2020 9:30 AM Alley Johnson APRN [facility] Arrive at: Pulpit Operator [address] [place] [phone] Future Orders Complete By Expires Carotid Duplex, Unilateral [VAS2 Custom] 07/12/2019 (Approximate) 06/11/2020 Process Instructions: There is no in-house vascular labor contractor available on weeknights (5pm-8am), weekends, or holidays. IF THIS IS A REQUEST FOR AN EMERGENT STUDY DURING THOSE HOURS, please have the senior provider responsible for the patient page the Vascular Surgery Fellow/Senior Resident crew person to discuss options. Scheduling Instructions: Questions: Laterality: Right Indication for study/signs & symptoms: s/p R CEA Question to be answered: patency At which [facility] location will this be performed?: [place] Discharge References/Attachments: Discharge References/Attachments None Electronically Signed [...] or questions please call our office at [phone] TERESA Sousa, pathology technician Nurse Clinician For issues on weeknights after 5pm and weekends please call [phone] and ask for the Vascular Fellow crew person. documented in this encounter Medications at Time [...] Indications: Hypothyroidism 10/11/2022 fluticasone (FLONASE) 50 mcg/actuation Parnell, SuspensionIndications:S easonal allergic rhinitis 2 sprays by [...] DP 2/2 2/2 PT 2/2 2/2 AP Lindsey Deleon is a 68 y.o. female [...] a little headache mostly on the right yazidi. Tylenol given. Neuro intact. Francisco Javier MULTANI 1999) Meets PACU dc critera. Handoff accepted and patient transported by PACU staff. Francisco Javier RN documented in this encounter H&P Notes * [...] 1.79) performed by Dorota Montaño MD at [facility] MAIN OR ??? PRO COLONOSCOPY, DIAGNOSTIC 12/06/2012 COLONOSCOPY, DIAGNOSTIC performed by Mik Dumont MD at [facility] ENDOSCOPY ??? PRO LAPAROSCOPY, SURG, REPAIR PARAESOPHAGEAL HERNIA, W/O IMPLANTATION OF MESH 02/18/2013 LAPAROSCOPIC PARAESOPHAGEAL HERNIA REPAIR W/FUNDOPLASTY, W/O MESH performed by Moncho Bowers MD at [facility] MAIN OR ??? PRO PLACE CATH FIRST ORDER ART, ABD/PELV 08/15/2017 CATHETER PLACEMENT, SELECTIVE FIRST ORDER IN ARTERIAL SYSTEM, EACH FIRST ORDER ABDOMINAL, PELVIC, OR LOWER EXTREMITY ARTERY BRANCH,WITHIN A VASCULAR FAMILY (WRVU 4.9) performed by Dorota Montaño MD at [facility] MAIN OR ? ? PRO REVSC OPEN/PERCUTANEOUS ILIAC ART W STNT PLMT&ANGIO PATRICE VSL UNILAT Bilateral 08/15/2017 REVSC OPN\PRQ ILIAC ART W\STNT PLMT & ANGIOP SAME VSL (WRVU 10) performed by Dorota Montaño MD at [facility] MAIN OR ??? PRO THROMBOENDARTECTMY ILIOFEMORAL Left 08/15/2017 @ENDARTERECTOMY, ILIOFEMORAL W OR W/O PATCH GRAFT (WRVU 19.86) performed by Dorota Montaño MD at [facility] MAIN OR ??? PRO UPPER GI ENDOSCOPY, BIOPSY 12/06/2012 EGD WITH BIOPSY performed by Mik Dumont MD at [facility] ENDOSCOPY ??? TUBAL LIGATION Functional [...] file Gets together: Not on file Attends rastafari service: Not on file Active member of [...] Indications: Hypothyroidism ??? fluticasone (FLONASE) 50 mcg/actuation Parnell, Suspension 2 sprays by Each Nare route [...] Notes * Med Student Progress Note - Sandra Simentalvinga Dover - 06/11/2019 7:00 AM EDT INPATIENT DAILY [...] unilateral carotid duplex Code status: Full Nik Dover Isabellizzethdanni 06/11/2019 Vascular Surgery, pager [phone] * Plan of Care - Zhanna Lou [...] on Surveillance [continuous indirect monitoring]: lakesha Logan Patient-specific fall prevention interventions for sensory deficits provided, if applicable: N/A CPG GOAL OUTCOME EVALUATION: Patient Vitals for the past 24 hrs: BP Temp Temp src Pulse Resp SpO2 Weight 06/10/19 2257 115/50 36.6 ??C (97.9 ??F) Oral -- 17 98 % -- 06/10/19 2016 122/51 36.7 ??C (98.1 ??F) Oral -- [...] Chu MD - 06/10/2019 3:46 PM EDT [facility] [place] Patient Name: Lindsey Deleon : [id number] MR#: [id number] Case Date: 06/10/2019 Surgeon: Surgeon(s) and Role: [...] artery distally using Pott's scissors. Using a Ethel elevator, endarterectomy of the common carotid and [...] need to include opening and closing). Dorota Mnotaño MD 06/11/2019 documented in this encounter Plan of Treatment Upcoming Encounters Date Type Department Care Team (Late st Contact Info) Description 02/06/2025 2:40 PM EDT Office Visit Cardiology at [address] [place] [address] Rigoberto Diaz MD [facility] [place] [address] Scheduled Procedures Name Priority Associated Diagnoses Date/Ti [...] Text Report Department: Vascular Surgery Lab Patient: [id number] (LINDSEY DELEON) CPT: 54800 ICD10: I65.23 Referring Physician: DOROTA MONTAÑO MD [...] GAS 2 ARTERIAL (06/10/2019 12:58 PM EDT) pH Art 7.42 7.35 - 7.45 [facility] pCO2 Art 37 35 - 45 mmHg [facility] pO2 Art 257(H) 85 - 104 mmHg [facility] HCO3 Art 23.5 20.0 - 26.0 mmol/L [facility] BE Art -1.3 -3.0 - 3.0 mmol/L [facility] Hgb Blood Gas 12.7 11.7 - 15.5 gm/dL [facility] O2HB Art 98.5(H) 94.0 - 97.0 % [facility] COHB Art 0.6 % [facility] Comment: Nonsmokers: 0.5-1.5% COHB Smokers: Variable, but usually less than 10% Toxic: 20-30% COHB Lethal: Greater than 60% COHB METHB Art 0.3 <=1.5 % [facility] Na Whole Blood 134(L) 135 - 145 mmol/L [facility] K Whole Blood 3.5 3.5 - 5.0 mmol/L [facility] Comment: Please note: Patients with WBC >100,000 may have falsely elevated Potassium levels. Contact the Clinical Chemistry Laboratory if there are any questions. ICa Whole Blood 1.17 1.15 - 1.33 mmol/L [facility] Comment: Note: ??Total bilirubin higher than 20 mg/dL may lead to falsely low ionized calcium. CL Whole Blood 101 98 - 107 mmol/L [facility] Gluc Whole Bld 116 65 - 199 mg/dL [facility] Comment:Diabetes: >=200 mg/d L plus symptoms. Lactate WB 0.7 0.5 - 2.2 mmol/L [facility] FIO2 Art 59 % [facility] PF Ratio Art 436 [facility] Temp Art 35.7 Celsius [facility] Blood specimen (specimen) 06/10/2019 12:58 PM EDT 06/10/2019 12:58 PM EDT Dorota Montaño MD CHEMISTRY ORDERABLES [facility] [place] [address] documented in this encounter Visit Diagnoses Diagnosis Bilateral carotid artery stenosis Occlusion and stenosis of multiple and bilateral precerebral arteries without mention of cerebral infarction documented in this encounter Admitting Diagnoses Diagnosis Carotid [...] 2252 (Given - Provider: Zhanna Lou RN) 09 (Given - Provider: Magnolia Piper RN) heparin [...] first. documented in this encounter Care Teams Nurse Discharge Planner Relationship Specialty Start Date End Date Vanita Churchill APRN PCP - General Family Medicine 02/27/19 documented as of this encounter
--- OUTSIDE RECORDS SUMMARY | 2024-06-14 01:48 | XMS_ITS | Encounter Summary ---
[place] [address] Care Team Providers Care Netbackup Admin Name Role Phone Vanita Churchill Omar SPARROW Primary Care Provider [phone] Encounter Details Date Type Department Care Team (Late st Contact Info) Description 06/17/2019 12:45 PM EDT Office Visit [place] [phone] Jake Montaño MD [facility] [place] [address] Stenosis of carotid artery, unspecified laterality Social [...] Sign Reading Time Taken Comments Blood Pressure 144/65 06/17/2019 12:56 PM EDT Pulse 68 06/17/2019 12:55 PM EDT Temperature - - Respiratory Rate - - Oxygen Saturation - - Inhaled Oxygen Concentration - - Weight 76.7 kg (169 lb) 06/17/2019 12:55 PM EDT reported Height 160 cm (5' 3) 06/17/2019 12:55 PM EDT re ported Body Mass Index 29.94 06/17/2019 12:55 PM EDT documented in this encounter Progress Notes * Jake Montaño MD - 06/17/2019 12:45 PM EDT Vascular Surgery Clinic Visit June 17, 2019 CC: Patient is a 68 y.o. female who is here for wound check. Seen in clinic last week and noted to have urticaria involving the surgical field, perhaps due to reaction to chloroprep. Was given short course of steroids and benadryl. Patient today reports marked improvement both in rash and pruritus. Incision remains c/d/i without any drainage or fluctuance. Will see back in a couple of weeks for scheduled follow up carotid duplex. Jake Montaño MD documented in this encounter Plan of Treatment Upcoming Encounters Date Type Department Care Team (Late st Contact Info) Description 02/06/2025 2:40 PM EDT Office Visit Cardiology at [address] [place] [address] Rigoberto Diaz MD [facility] [place] [address] Scheduled Procedures Name Priority Associated Diagnoses Date/Ti me EGD, UPPER GI ENDOSCOPY (WRV U 2.09) Incontinence of feces, unspecified fecal incontinence type Dysphagia, unspecified type COLONOSCOPY, DIAGNOSTIC (WRV U 3.26) Incontinence of feces, unspecified fecal incontinence type Dysphagia, unspecified type documented as of this encounter Visit Diagnoses Diagnosis Stenosis of carotid artery, unspecified laterality documented in this encounter Care Teams Netbackup Admin Relationship Specialty Start Date End Date Vanita Churchill APRN PCP - General Family Medicine 02/27/19 documented as of this encounter
--- OUTSIDE RECORDS SUMMARY | 2024-06-14 01:48 | XMS_ITS | Encounter Summary ---
Author Organization [facility] [place] [address] Care Team Providers Care Director Imaging Name Role Phone Vanita Churchill RN ORTHOPAEDIC Primary Care Provider [phone] Encounter Details Date Type Department Care Team (Late st Contact Info) Description 05/23/2019 Orders [place] [phone] Marizol Batres RN Stenosis of carotid artery, unspecified [...] 2:40 PM EDT Office Visit Cardiology at [address] [phone] Rigoberto Diaz MD [facility] [place] [address] Scheduled Orders Name Type Priority Associated Diagnoses Orde r Schedule ENDART, CAROTID, VERTEBRAL,SUBCLAVIA N W\WO PATCH GRAFT, BY NECK INCIS Procedures Routine One Time for 1 Occurrences starting 05/23/2019 until 05/23/2019 Scheduled Procedures Name Priority Associated Diagnoses Date/Ti me EGD, UPPER GI ENDOSCOPY (WRV U 2.09) Incontinence of feces, unspecified fecal incontinence type Dysphagia, unspecified type COLONOSCOPY, DIAGNOSTIC (WRV U 3.26) Incontinence of feces, unspecified fecal incontinence type Dysphagia, unspecified type documented as of this encounter Results * XR Chest PA or AP 1 view (05/23/2019 4:48 PM EDT) Anatomical Region Laterality Modality Chest N/A Digital Radiogra phy Impressions 05/23/2019 4:52 PM EDT No active cardiopulmonary pathology identified. No appreciable change in hiatal hernia. Thank you for letting us participate in the care of this patient. For questions regarding this report, please contact the number below. ? Narrative 05/23/2019 4:52 PM EDT EXAMINATION: XR CHEST PA OR AP 1 VIEW CLINICAL HISTORY: Pre-op screening for carotid endarterectomy scheduled for 06/10/19 TECHNIQUE: PA chest radiograph. COMPARISON: 04/11/2005. FINDINGS: The lungs appear clear. Cardiomediastinal silhouette, trevor, vasculature appear within normal limits. Rounded opacity projecting over the midline of the lower chest compatible with hiatal hernia demonstrated on 01/30/2013 esophagram. Left upper rib deformities consistent with interval healing of fractures. Procedure Note Tania Duff MD - 05/23/2019 EXAMINATION: XR CHEST PA OR AP 1 VIEW CLINICAL HISTORY: Pre-op screening for carotid endarterectomy scheduledfor 06/10/19 TECHNIQUE: PA chest radiograph. COMPARISON: 04/11/2005. FINDINGS: The lungs appear clear. Cardiomediastinal silhouette, trevor, vasculature appear within normal limits. Rounded opacity projecting overthe midline of the lower chest compatible with hiatal hernia demonstrated on 01/30/2013 esophagram. Left upper rib deformities consistent with intervalhealing of fractures. IMPRESSION No active cardiopulmonary pathology identified. No appreciable change in hiatal hernia. Thank you for letting us participate in the care of this patient. Forquestions regarding this report, please contact the number below. Jake Montaño MD IMG DX ORDERABLES * (ABNORMAL) Urinalysis without microscopic (05/23/2019 4:40 PM EDT) Glucose UA Negative Negative mg/dL [facility] Protein UA Negative Negative mg/dL [facility] Bilirubin UA Negative Negative mg/dL [facility] Comment: Clinical correlation required for positive Urine Bilirubin results as false positive may occur with some drugs and drug related products. If a false positive is suspected a serum total bilirubin should be considered if clinically indicated. Urobilinogen UA Normal Normal mg/dL [facility] pH UA 6.0 5.0 - 8.0 [facility] Blood UA Negative Negative mg/dL [facility] Ketones UA Negative Negative mg/dL [facility] Nitrite UA Negative Negative [facility] Leukocytes UA Negative Negative mcL [facility] Appearance UA Clear Clear [facility] Spec [place] UA >1.035(H) 1.002 - 1.030 [facility] Color UA Straw Yellow [facility] Urine specimen (specimen) 05/23/2019 4:40 PM EDT 05/23/2019 4:49 PM EDT Narrative Resulting Agency Comment Spec In Lab Jake Montaño MD URINE ORDERABLES [facility] [place] [address] documented in this encounter Visit Diagnoses Diagnosis Stenosis of carotid artery, unspecified laterality Stenosis of carotid artery, unspecified laterality documented in this encounter Care Teams Director Imaging Relationship Specialty Start Date End Date Vanita Churchill, RN ORTHOPAEDIC PCP - General Family Medicine 02/27/19 documented as of this encounter
--- OUTSIDE RECORDS SUMMARY | 2024-06-14 01:48 | XMS_ITS | Encounter Summary ---
[place] [address] Care Team Providers Care Digital Photographic Printer Name Role Phone Vanita Churchill KYARA Primary Care Provider [phone] Encounter Details Date Type Department Care Team (Late st Contact Info) Description 04/08/2019 Notes Only Sleep Center at [facility] [address] [place] [phone] Gloria Nina Social History Tobacco Use Types Packs/Day Years [...] as of this encounter Progress Notes * Gloria Nina - 04/08/2019 9:12 AM EDT [facility] called and said pt not eligable for supplies until next month. documented in this encounter Plan of Treatment Upcoming Encounters Date Type Department Care Team (Late st Contact Info) Description 02/06/2025 2:40 PM EDT Office Visit Cardiology at [address] [place] [address] Rigoberto Diaz MD [facility] [place] [address] Scheduled Procedures Name Priority Associated Diagnoses Date/Ti me EGD, UPPER GI ENDOSCOPY (WRV U 2.09) Incontinence of feces, unspecified fecal incontinence type Dysphagia, unspecified type COLONOSCOPY, DIAGNOSTIC (WRV U 3.26) Incontinence of feces, unspecified fecal incontinence type Dysphagia, unspecified type documented as of this encounter Visit Diagnoses Not on filedocumented in this encounter Care Teams Digital Photographic Printer Relationship Specialty Start Date End Date Vanita Churchill, KYARA PCP - General Family Medicine 02/27/19 documented as of this encounter
--- OUTSIDE RECORDS SUMMARY | 2024-06-14 01:48 | XMS_ITS | Encounter Summary ---
[place] [address] Care Team Providers Care Rehabilitation Counsellor Name Role Phone Kerline Vanita Nelson APRN Primary Care Provider [phone] Encounter Details Date Type Department Care Team (Late st Contact Info) Description 03/19/2020 9:30 AM EDT TH Visit (TeleHealth) Sleep Center at [facility] [address] [place] [address] Alley Johnson APRN [facility] [place] [address] CHEMA treated with BiPAP Social History Tobacco [...] - Inhaled Oxygen Concentration - - Weight 78.9 kg (174 lb) 03/18/2020 11:46 AM EDT pt reported Height 163.8 cm (5' 4.5) 03/18/2020 11:46 AM ED T Body Mass Index 29.41 03/18/2020 11:46 AM EDT documented in this encounter Patient Instructions * Patient Instructions* Alley Johnson APRN - 03/19/2020 9:30 AM EDT Recommendations: --Continue on cw --Adjust mask straps nightly while laying down with machine on, just to snug, for best fit; do not overtighten as it can cause discomfort and greater mask leak --Once patient is at a stable weight of loss, she can call me and I can place an order for an overnight BPAP titration to reassess for adequate pressures at a stable weight -If dry mouth: 1) adjust humidity up and/or [...] counter nasal steroid spray --Driving safety reviewed --RTC one year with [place], knows to call sooner if needed; staff will call to schedule documented in this encounter Progress Notes * Alley Johnson APRN - 03/19/2020 9:30 AM EDT Sleep Medicine Telehealth Follow-Up Note HPI: Ms. Lindsey Mehta is a 69 y.o. female seen for annual follow-up of obstructive sleep apnea.. Has SoClean machine and loves it. HPI continues below. Patient is calling today from home in [place], [place] Visit is by phone Patient provided verbal consent prior to initiation of this telehealth encounter and expressed understanding that the telehealth visit may be billed similar to a clinic visit Sleep Study History: 02/07/2008 at [facility], from Dr. Robbins's note: AHI: 28/hr, supine [...] unclear significance. 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 to route sales specialist, thinks it was medication; cardiology found lack of pulsein hip and feet, stent placed; ECHO from July 18, 2017 shows LVEF 65%) Treatment: BIPAP DreamStation Auto BPAP, setup 01/30/19 now Previously BPAP Auto 760P, setup 12/30/13 Pressure: Now 25/17, previously 25/21cw Tolerance: fine now after gluten free--reduced gas and better IBS; Interface: now back to Saranya Mcpherson, small; Didn't like DreamWear FFM, small frame, small cushion; demo provided to her in 2019 visit Didn't like the Airtouch F20, small as irritating nasal bridge,previous mask was Mirage Quattro butit left a cortney on her nose Chin strap: No, chin strap was tried in the past but she opened her mouth anyway HCC: [facility] to get machine (that ofc is appt only) [place] getting [place] Snoring: no Nocturnal gasping: no Dry Mouth: Sometimes, adjusts humidity; uses Biotene rinse, hasn't tried room humidifier--didn't use this Winter, didn't need Mouth Breathing: Yes, has FFM now Patient wears top dentures to sleep Daytime Symptoms: Patient-reported last 4 scores: [facility] 02/06/2017 12/08/2017 08/02/2018 04/05/2019 [place] 1 4 3 3 Insomnia Severity Index 2 (No clinically significant insomnia) Incomplete 4 (No clinically significant insomnia) 4 (No clinically significant insomnia) VR12 - Physical Component Summary 43.05 - - - VR12 - Mental Component Summary 54.56 - - - No [place] done today Nocturnal sleep quality improved: overall improved Daytime symptoms improved (Daytime sleepiness/fatigue): yes, overall Naps: Not usually during day but may lay down due to back pain Involuntary Dozing: no Sleepiness or Drowsiness when driving: drives, no drowsiness ROS: Constitutional: Weight : 2017 sleep study 214lbs, weight down to 174lbs today, trying to get down to 155lbs; going to [facility] and losing weight (not right now due to COVID) ENT: Nasal Obstruction: On Zyrtec over the summer for seasonal allergies, uses Flonase PRN--educated on usage, hasn't restarted yet Resp: no more nebulizer, Flovent BID, and uses inhaler PRN; CV: BP control reportedly normal Sleep Pattern: Bedtime: 10:30p on TW and 8a other nights, watches TV until 9 pm, then affixes mask, is asleep promptly most nights Wake time: 5a not to alarm Awakenings: Takes Tylenol at night before sleep onset, as she may wake with joint and back pain--will get up and then use IcyHot; WASO quickly Social History: Normally, working one job 2 [...] Outpatient Medications Marked as Taking for the 03/19/20 encounter (TH Visit (TeleHealth)) with Alley Johnson APRN Medication Sig Dispense Refill ??? albuterol 90 mcg/actuation HFA Aerosol Inhaler Inhale 2 puffs into the lungs every 4 hours as needed for Wheezing. Use with spacer ??? UNKNOWN TO PATIENT Diskus, name unclear ??? buPROPion (WELLBUTRIN) 100 mg Tablet Take 50 mg by mouth daily. ??? cholecalciferol, vitamin D3, (D3-2000 ORAL) Take by mouth. ??? rosuvastatin (CRESTOR) 20 mg Tablet Take 20 mg by mouth daily. ??? ezetimibe (ZETIA) 10 mg Tablet Take 10 mg by mouth daily. ??? calcium-vitamin D 500 mg(1,250mg) -200 unit Tablet Take 1 tablet by mouth 2 times daily (with meals). ??? acetaminophen (TYLENOL) 325 mg Tablet Take [...] Take 10 mg by mouth daily. ??? hydroCHLOROthiazide (MICROZIDE) 12.5 mg Capsule [...] OPHT) Apply to eye 2 times daily. She is now taking Wellbutrin for about 6 months now, doesn't know dosage, will call our clinic to let us know dosage. Notable Medications: Niferex--hemoglobin was low Benedryl nightly for itching, doesn't make her sleepy Zyrtec, only during seasonal allergies Flovent BID Flonase--only PRN Geodon BID Celexa 40mg daily, takes at night BP meds Data Download: Date Range: 12/06/19-03/08/20 Settin/17cw PB 0.5% (was at last visit) Residual AHI: 5.3 Note: Tidal Vol declined during period, ABR 13.5 Vibratory Snore Index: 0 % Night in Large Leak: 0% Average usage days used-Hours: 8 hrs 54 minutes # Days of usage: 92/ 98% % Days used > 4 hours: 97% Previous Data Download: Date Range: 01/30/19-04/03/19 Settin/21 cm, should be [...] % Days used > 4 hours 100% Physical Exam: Ht 163.8 cm (5' 4.5) Wt 78.9 kg (174 lb) Comment: pt reported BMI 29.41 kg/m?? General: F, NAD Respirations: Even and not labored at rest, as heard Echocardiogram from 07/18/17 shows LVEF 65% Assessment Ms. Lindsey Mehta is a 69 y.o. female seen for annual follow up of obstructive sleep apnea. Pressures on download show 25/17cw, correct pressures and tolerated well. AHI remains controlled along with VSI and large leak. Usage is excellent and overall benefit on BPAP good. Weight at 2017 BPAP titration was 214lbs, has lost 41lbs, trying to lose more. Reviewed recommendation for repeat BPAP titration study when at goal weight to reassess adequate pressures and oxygenation. Tidal volume steady decline on this download, unsure significance, average breath rate adequate at 13.5. Waking rested and feeling well. Continues using the reportbrain View small, didn't like IPPLEXWear FFM demo tried from last visit. Supplies received and replaced regularly. Plan/all recommendations below. Time spent via phone call today in discussion of recommendations below and with time spent pre/postcall associated with chart activities: 25 minutes Patient is calling today from home in [place], [place] Visit is by phone Patient provided verbal consent prior to initiation of this telehealth encounter and expressed understanding that the telehealth visit may be billed similar to a clinic visit Recommendations: --Continue on 25/17cw --Adjust mask straps nightly while laying down with machine on, just to snug, for best fit; do not overtighten as it can cause discomfort and greater mask leak --Once patient is at a stable weight of loss, she can call me and I can place an order for an overnight BPAP titration to reassess for adequate pressures at a stable weight -If dry mouth: 1) adjust humidity up and/or [...] counter nasal steroid spray --Driving safety reviewed --[place] one year [place], knows to call sooner if needed; staff will call to schedule The patient indicates understanding of these issues and agrees with the plan. Alley Johnson APRN documented in this encounter Plan of Treatment Upcoming Encounters Date Type Department Care Team (Late st Contact Info) Description 02/06/2025 2:40 PM EDT Office Visit Cardiology at [address] [phone] Rigoberto Diaz MD [place] [address] Scheduled Procedures Name Priority Associated Diagnoses Date/Ti me EGD, UPPER GI ENDOSCOPY (WRV U 2.09) Incontinence of feces, unspecified fecal incontinence type Dysphagia, unspecified type COLONOSCOPY, DIAGNOSTIC (WRV U 3.26) Incontinence of feces, unspecified fecal incontinence type Dysphagia, unspecified type documented as of this encounter Visit Diagnoses Diagnosis CHEMA treated with BiPAP documented in this encounter Care Teams Rehabilitation Counsellor Relationship Specialty Start Date End Date Vanita Churchill APRN PCP - General Family Medicine 02/27/19 documented as of this encounter
--- OUTSIDE RECORDS SUMMARY | 2024-06-14 01:48 | XMS_ITS | Encounter Summary ---
Author Organization [facility] [place] [address] Care Team Providers Care Legislative Correspondent Name Role Phone Vanita Churchill KYARA Primary Care Provider [phone] Encounter Details Date Type Department Care Team (Late st Contact Info) Description 07/02/2020 10:30 AM EDT Tech Visit [place] [address] Kailee Franklin, RVT Bilateral carotid artery stenosis; PVD (peripheral vascular disease) with claudication Social [...] PM EDT Office Visit Cardiology at [address] [phone] Rigoberto Diaz MD [facility] [place] [address] Scheduled Procedures Name Priority Associated Diagnoses Date/Ti me EGD, UPPER GI ENDOSCOPY (WRV U 2.09) Incontinence of feces, unspecified fecal incontinence type Dysphagia, unspecified type COLONOSCOPY, DIAGNOSTIC (WRV U 3.26) Incontinence of feces, unspecified fecal incontinence type Dysphagia, unspecified type documented as of this encounter Procedures Procedure Name Priority Date/Time Associated Diagnosis Comments MARIYA, LEGS, MULTIPLE LEVELS Routine 07/02/2020 10:34 AM EDT PVD (peripheral vascular disease) with claudication CAROTID DUPLEX, BILATERAL Routine 07/02/2020 10:34 AM EDT Bilateral carotid artery stenosis documented in this encounter Results * MARIYA, legs, multiple levels (07/02/2020 10:34 AM EDT) VB Text Report Department: Vascular Surgery Lab Patient: [id number] ([facility]) CPT: 35553 ICD10: I73.9;I70.213 Referring Physician: DOROTA MONTAÑO MD ?? Phone: Indications: Bilateral LE claudication, ? peripheral perfusion Diabetes mellitus: No ICD10 Diagnosis Code: I73.9, I70.213 Findings: Right ?Pressure (mm Hg) ?? MARIYA ??Waveform ?? Brachial Artery ?144 ? Dorsalis Pedis (Ankle) Artery ?132 ? 0.92 ??Triphasic ?? Posterior Tibial (Ankle) Artery ??123 ? 0.85 ??Triphasic ?? Left ? Pressure (mm Hg) ?? MARIYA ??Waveform ? Brachial Artery ?139 ? Dorsalis Pedis (Ankle) Artery ?127 ? 0.88 ??Bi-Triphasic ?? Posterior Tibial (Ankle) Artery ??127 ? 0.88 ??Bi-Triphasic ?? Interpretation: RIGHT: Mild lower extremity arterial occlusive disease. No significant change compared to previous exam. LEFT: Mild lower extremity arterial occlusive disease. No significant change compared to previous exam. Previous ABIs with change from previous value: Date ?RIGHT DP ?? RIGHT PT ?? RT GR TOE ??RT Sec TOE ??0.48 ? 0.64 ? ---- ? ---- ??0.94(+.46) 0.91(+.27) ---- ? ---- ??0.85(-.09) 0.90(-.01) ---- ? ---- ??0.89(+.04) 0.91(+.01) ---- ? ---- Current ? 0.92(+.03) 0.85(-.06) ---- ? ---- Date ?LEFT DP ?LEFT PT ?LT GR TOE LT Sec TOE ??0.48 ? 0.68 ? ---- ? ---- ??0.80(+.32) 0.84(+.16) ---- ? ---- ??0.80( .00) 0.85(+.01) ---- ? ---- ??0.87(+.07) 0.89(+.04) ---- ? ---- Current ? 0.88(+.01) 0.88(-.01) ---- ? ---- Electronically Signed by: DOROTA MONTAÑO MD on 2020-07-06 10:40:36 AM [facility] VB Text Report End of Report [facility] 07/02/2020 10:3 4 AM EDT Dorota Montaño MD VASCULAR ORDERABLES [facility] * Carotid Duplex, Bilateral (07/02/2020 10:34 AM EDT) VB Text Report Department: Vascular Surgery Lab Patient: [id number] ([facility]) CPT: 34080 ICD10: I65.23 Referring Physician: DOROTA MONTAÑO MD [...] precerebral arteries without mention of cerebral infarction PVD (peripheral vascular disease) with claudication Peripheral vascular disease, unspecified documented in this encounter Care Teams Legislative Correspondent Relationship Specialty Start Date End Date Vanita Churchill, SALES AGENT PCP - General Family Medicine 02/27/19 documented as of this encounter
--- OUTSIDE RECORDS SUMMARY | 2024-06-14 01:48 | XMS_ITS | Encounter Summary ---
Author Organization [facility] [place] [address] Care Team Providers Care Dish Up Person Name Role Phone Vanita Churchill KYARA Primary Care Provider [phone] Encounter Details Date Type Department Care Team (Latest Contact Info) Description 05/23/2019 4:30 PM EDT [place] [address] Stenosis of carotid artery, unspecified laterality Social [...] PM EDT Office Visit Cardiology at [address] [phone] Rigoberto Diaz MD [facility] [place] [address] Scheduled Procedures Name Priority Associated Diagnoses Date/Ti me EGD, UPPER GI ENDOSCOPY (WRV U 2.09) Incontinence of feces, unspecified fecal incontinence type Dysphagia, unspecified type COLONOSCOPY, DIAGNOSTIC (WRV U 3.26) Incontinence of feces, unspecified fecal incontinence type Dysphagia, unspecified type documented as of this encounter Procedures Procedure Name Priority Date/Time Associated Diagnosis Comments URINE HOLD Routine 05/23/2019 4:40 PM EDT URINALYSIS WITHOUT MICROSCOPIC Routine 05/23/2019 4:40 PM EDT Stenosis of carotid artery, unspecified laterality documented in this encounter Results * Urine Hold (05/23/2019 4:40 PM EDT) Urine Hold Sample in lab. [facility] Urine specimen (specimen) Urine / Unknown 05/23/2019 4:40 PM EDT 05/23/2019 4:49 PM EDT Jake Montaño MD URINE ORDERABLES [facility] [place] [address] * (ABNORMAL) Urinalysis without microscopic (05/23/2019 4:40 PM EDT) Glucose UA Negative Negative mg/dL [facility] Protein UA Negative Negative mg/dL [facility] Bilirubin UA Negative Negative mg/dL [facility] Comment: Clinical correlation required for positive Urine Bilirubin results as false positive may occur with some drugs and drug related products. If a false positive is suspected a serum total bilirubin should be considered if clinically indicated. Urobilinogen UA Normal Normal mg/dL [facility] pH UA 6.0 5.0 - 8.0 [facility] Blood UA Negative Negative mg/dL [facility] Ketones UA Negative Negative mg/dL [facility] Nitrite UA Negative Negative [facility] Leukocytes UA Negative Negative mcL [facility] Appearance UA Clear Clear [facility] Spec [place] UA >1.035(H) 1.002 - 1.030 [facility] Color UA Straw Yellow [facility] Urine specimen (specimen) 05/23/2019 4:40 PM EDT 05/23/2019 4:49 PM EDT Narrative Resulting Agency Comment Spec In Lab Jake Montaño MD URINE ORDERABLES [facility] [place] [address] documented in this encounter Visit Diagnoses Diagnosis Stenosis of carotid artery, unspecified laterality documented in this encounter Care Teams Dish Up Person Relationship Specialty Start Date End Date Vanita Churchill APRN PCP - General Family Medicine 02/27/19 documented as of this encounter
--- OUTSIDE RECORDS SUMMARY | 2024-06-14 01:48 | XMS_ITS | Encounter Summary ---
Author Organization [facility] Address [facility] [place] [address] Care Team Providers Care Airplane Rental Clerk Name Role Phone Vanita Churchill Omar SPARROW Primary Care Provider [phone] Encounter Details Date Type Department Care Team (Latest Contact Info) Description 05/23/2019 4:40 PM EDT - 05/23/2019 11:59 PM EDT Hospital Encounter XRay at [address] [place] [address] Jake Montaño MD [facility] [place] [address] Stenosis of carotid artery, unspecified laterality Discharge [...] Indications: Hypothyroidism 10/11/2022 fluticasone (FLONASE) 50 mcg/actuation Morton, SuspensionIndications:S easonal allergic rhinitis 2 sprays by Each Nare route daily as needed for Rhinitis. 16 g 3 05/03/2016 03/19/2021 POLYETHYLENE GLYCOL 3350 (MIRALAX ORAL) Take by mouth as needed. 02/05/2024 documented as of this encounter Plan of Treatment Upcoming Encounters Date Type Department Care Team (Late st Contact Info) Description 02/06/2025 2:40 PM EDT Office Visit Cardiology at [address] [place] [address] Rigoberto Diaz MD [facility] [place] [address] Scheduled Procedures Name Priority Associated Diagnoses Date/Ti me EGD, UPPER GI ENDOSCOPY (WRV U 2.09) Incontinence of feces, unspecified fecal incontinence type Dysphagia, unspecified type COLONOSCOPY, DIAGNOSTIC (WRV U 3.26) Incontinence of feces, unspecified fecal incontinence type Dysphagia, unspecified type documented as of this encounter Procedures Procedure Name Priority Date/Time Associated Diagnosis Comments XR CHEST ONE VIEW STAT 05/23/2019 4:4 8 PM EDT Stenosis of carotid artery, unspecified laterality documented in this encounter Results * XR [...] below. Jake Montaño MD IMG DX ORDERABLES documented in this encounter Visit Diagnoses Diagnosis Stenosis of carotid artery, unspecified laterality documented in this encounter Care Teams Airplane Rental Clerk Relationship Specialty Start Date End Date Vanita Churchill APRN PCP - General Family Medicine 02/27/19 documented as of this encounter
--- OUTSIDE RECORDS SUMMARY | 2024-06-14 01:48 | XMS_ITS | Encounter Summary ---
[place] [address] Care Team Providers Care Blind Aide Name Role Phone Kwesidominguez Vanita Nelson APRN Primary Care Provider [phone] Encounter Details Date Type Department Care Team (Late st Contact Info) Description 04/05/2019 2:30 PM EDT Office Visit Sleep Center at [facility] [address] [place] [address] Alley Johnson APRN [facility] [place] [address] CHEMA treated with BiPAP Social History Tobacco [...] Sign Reading Time Taken Comments Blood Pressure 107/54 04/05/2019 2:04 PM EDT Pulse 72 04/05/2019 2:04 PM EDT Temperature - - Respiratory Rate - - Oxygen Saturation 97% 04/05/2019 2:04 PM EDT Inhaled Oxygen Concentration - - Weight 78.5 kg (173 lb) 04/05/2019 2:04 PM EDT Height 160 cm (5' 3) 04/05/2019 2:04 PM EDT Body Mass Index 30.65 04/05/2019 2:04 PM EDT documented in this encounter Patient Instructions * Patient Instructions* Alley Johnson APRN - 04/05/2019 2:30 PM EDT Recommendations: --Change back to 25/17cw today, also set humidity to 4, heated tube temperature to 2, made pending modem --If pressures become intolerable, call me and I can change them --Call clinic to let us know dosage of Wellbutrin taken daily in AM (Celexa at night) --Once patient is at a stable weight of loss, she can call me and I can place an order for an overnight BPAP titration to reassess for adequate pressures at a stable weight --Order to [facility] to allow for DreamWear FFM option, small frame, small cushion; provided her with demo mask today --Flonase is a nasal steroid, reduces nasal inflammation, and works when using after several days, it is not a decongestant --If dry mouth or dry nasal passages: 1) adjust humidity up and/or heated tube temperature down, 2)consider over the counter Biotene mouth rinse, spray, or gel, 3) consider room humidifier --If nasal congestion: 1) Try adjusting PAP humidity level, 2) Consider OTC saline nasal spray: 2 sprays per nostril twice daily, before affixing mask in evening and after removing mask in morning --Driving safety discussed, recommend patient not drive if drowsy, if drowsy while driving, boat puller and take a nap. --RTC one year with [place] documented in this encounter Progress Notes * Alley Johnson APRN - 04/05/2019 2:30 PM EDT Sleep Medicine Follow-Up Note HPI: Ms. Lindsey Mehta is a 68 y.o. female seen for follow-up of obstructive sleep apnea on replacement BPAP machine and compliance. Has SoClean machine and loves it. HPI continues below. Sleep Study History: 02/07/2008 at [facility] [place] Dr. Robbins's note: AHI: 28/hr, supine [...] 03/28/17, Wt: 214lbs, from Dr. Ferro's note: Recommendations: 1. Trial of BIPAP . Consider chinstrap if felt to be needed. 2. Follow up with her PCP as to the SVT noted of unclear significance. 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, thinks it was medication; cardiology found lack of pulsein hip and feet, stent placed; ECHO from July 18, 2017 shows LVEF 65%) Treatment: BIPAP DreamStation Auto BPAP, setup 01/30/19 now Previously BPAP Auto 760P, setup 12/30/13 Pressure: 25/21 cw on replacement machine and unsure why as she should be at 25/17cw still Tolerance: is now gluten free--reduced gas and better IBS; Interface: now back to Saranya Mcpherson, small; didn't like the Airtouch F20, small as irritating nasal bridge,previous mask was Mirage Quattro but it left a cortney on her nose Chin strap: No, chin strap was tried in the past but she opened her mouth anyway Humidifier Setting: adjusts [facility] to get machine (that [facility] appt only) [place] Snoring: Doesn't think so Dry Mouth: Sometimes, adjusts humidity; uses Biotene rinse, hasn't tried room humidifier Mouth Breathing: Yes, has FFM, breathes through her nose when she goes to sleep but probably mouth breathes at night Patient wears top dentures to sleep Daytime Symptoms: Patient-reported last 4 scores: [facility] 02/06/2017 12/08/2017 08/02/2018 04/05/2019 [facility] 1 4 3 3 Insomnia Severity Index 2 (No clinically significant insomnia) Incomplete 4 (No clinically significant insomnia) 4 (No clinically significant insomnia) VR12 - Physical Component Summary 43.05 - - - VR12 - Mental Component Summary 54.56 - - - Nocturnal sleep quality improved: overall improved Daytime symptoms improved (Daytime sleepiness/fatigue): yes, overall Naps: Less napping than at last visit but may lay down due to back pain Involuntary Dozing: no Sleepiness or Drowsiness when driving: drives, no drowsiness ROS: Constitutional: Weight is down 41lbs since last sleep study ENT: Nasal Obstruction: On Zyrtec over the summer for seasonal allergies, uses Flonase PRN--educated on usage, hasn't restarted yet Resp: no more nebulizer, Flovent BID, and uses inhaler PRN; increased SOB even at rest- Sleep Pattern: Bedtime: 10:30p on TW and 8a other nights, watches TV until 9 pm, then affixes mask, is asleep promptly most nights Wake time: 6a not to alarm Awakenings: Not waking due to joint pain, will take two Tylenol at night before bed, none to void unless dogs need to go out then she will get up for that Social History: 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 Asthma 02/06/2017 ??? COPD (chronic obstructive pulmonary disease) Emphysema, scheduled and prn inhalers, has not used prn inhaler in months. Able to climb one flightof starirs without SOB. No home O2. ??? GERD (gastroesophageal reflux disease) food regurgitation, burning, not well controlled ??? Hypertension well controlled on medication Patient Active Problem List Diagnosis Code ??? [...] ??? Claudication in peripheral vascular disease I73.9 Outpatient Medications Marked as Taking for the 04/05/19 encounter (Office Visit) with Alley Johnson APRN Medication Sig Dispense Refill ??? iron polysaccharides (NIFEREX) 150 mg iron [...] Take 1,000 mg by mouth daily. ??? loperamide (IMODIUM A-D) 2 mg Capsule Take 2 mg by mouth as needed. ??? fluticasone (FLOVENT) 110 mcg/actuation HFA Aerosol Inhaler Inhale 1 puff into the lungs 2 times daily. ??? hydroCHLOROthiazide (MICROZIDE) 12.5 mg Capsule Take 12.5 mg by mouth daily. ??? lisinopril (PRINIVIL;ZESTRIL) 10 mg Tablet Take 10 mg by mouth daily. ??? levothyroxine (SYNTHROID) 50 mcg Tablet Take 50 mcg by mouth daily. Indications: Hypothyroidism ??? fluticasone (FLONASE) 50 mcg/actuation Offerman, Suspension 2 sprays by Each Nare route daily as needed for Rhinitis. 16 g 3 ??? multivitamin (THERAGRAN) tablet Take 1 tablet by mouth daily. ??? acetaminophen (TYLENOL) 650 mg/20.3 mL oral liquid Take 20.3 mLs by mouth every 4 hours as needed. 350 mL 1 ??? POLYETHYLENE GLYCOL 3350 (MIRALAX ORAL) Take by mouth as needed. ??? LACTOBACILLUS RHAMNOSUS GG (CULTURELLE ORAL) Take by mouth daily. ??? ziprasidone (GEODON) 20 mg capsule Take 20 mg by mouth 2 times daily (with meals). ??? aspirin 325 mg tablet Take 325 mg by mouth daily. ? ? BETA-CAROTENE,A, W-C & E/MIN (OCUVITE ORAL) Take by mouth. ??? CARBOXYMETHYLCELLULOSE SODIUM (REFRESH TEARS OPHT) Apply to eye 2 times daily. ??? albuterol (PROVENTIL HFA;VENTOLIN HFA) 90 mcg/Actuation inhaler Inhale 2 puffs into the lungs every 4 hours as needed. Use with spacer Indications: Chronic Obstructive Pulmonary Disease ??? FOLIC ACID ORAL ??? ezetimibe-simvastatin (VYTORIN 10-40) 10-40 mg per tablet She is now taking Wellbutrin for about 6 months now, doesn't know dosage, will call our clinic to let us know dosage. Notable Medications: Niferex--her hemoglobin was low; taken for about two weeks Benedryl nightly for itching, does'n't make her sleepy Zyrtec, only during seasonal allergies Flovent BID Flonase--only PRN Geodon BID, no change Celexa 40mg daily, takes at night BP meds Compliance Card Data: Date Range: 01/30/19-04/03/19 Settin/21 cm, should be 25/17cw Residual AHI: 3.3 Vibratory Snore Index: 0 % Night in Large Leak: 3% Average usage days used-Hours: 7 hrs 25 minutes # Days of usage: 64/64 100% % Days used > 4 hours 94% Previous Compliance Card Data: Date Range: 05/04/2018-08/01/18 Settin/17 cm Residual AHI: 2.3 Vibratory Snore Index: 0 % Night in Large Leak: 3.2% Average usage days used-Hours: 8 hrs 7 minutes # Days of usage: 90/90 100% % Days used > 4 hours 100% Physical Exam: BP 107/54 (BP Location (NBP): Right arm) Pulse 72 Ht 160 cm (5' 3) Wt 78.5 kg (173 lb) SpO2 97% BMI 30.65 kg/m?? General: F, NAD, down 41lbs since 2017 sleep study Respirations: Even and not labored at rest DERM: Skin Irritation: None anymore on Saranya View Echocardiogram from 07/18/17 shows LVEF 65% Assessment Ms. Lindsey Mehta is a 68 y.o. female seen for follow up of obstructive sleep apneaand compliance on replacement BPAP machine. It appears pressures were accidentally changed to IPAP/EPAP 25/21cw from cw on this replacement machine. I will reset them today to 25/17cw. AHI iremains controlled along with VSI and large leak though slight increase possibly due to higherEPAP. Usage is excellent and she appears to meet compliance on BPAP. She is back to using the Saranya View small, had nasal bridge irritation with AirTouch F20. Sized herfor both DreamWear FFM and AirFit F30 today. She prefers DreamWear. Provided her with demo mask today to take home. Plan/all recommendations below. Time spent face to face: 25 minutes 15 minutes of this 25 minute visit was spent in face to face discussion with the patient regarding counseling/education on PAP machine supply replacement, mask fit and sizing today, and remedies for dry mouth. Recommendations: --Change back to 25/17cw today, also set humidity to 4, heated tube temperature to 2, made pending modem --If pressures become intolerable, call me and I can change them --Call clinic to let us know dosage of Wellbutrin taken daily in AM (Celexa at night) --Once patient is at a stable weight of loss, she can call me and I can place an order for an overnight BPAP titration to reassess for adequate pressures at a stable weight --Order to [facility] to allow for DreamWear FFM option, small frame, small cushion; provided her with demo mask today --Flonase is a nasal steroid, reduces nasal inflammation, and works when using after several days, it is not a decongestant --If dry mouth or dry nasal passages: 1) adjust humidity up and/or heated tube temperature down, 2)consider over the counter Biotene mouth rinse, spray, or gel, 3) consider room humidifier --If nasal congestion: 1) Try adjusting PAP humidity level, 2) Consider OTC saline nasal spray: 2 sprays per nostril twice daily, before affixing mask in evening and after removing mask in morning --Driving safety discussed, recommend patient not drive if drowsy, if drowsy while driving, boat puller and take a nap. --RTC one year with [place] The patient indicates understanding of these issues and agrees with the plan. Alley Johnson APRN Cc: Vanita Churchill APRN documented in this encounter Plan of Treatment Upcoming Encounters Date Type Department Care Team (Late st Contact Info) Description 02/06/2025 2:40 PM EDT Office Visit Cardiology at [address] [place] [address] Rigoberto Diaz MD [facility] [place] [address] Scheduled Procedures Name Priority Associated Diagnoses Date/Ti me EGD, UPPER GI ENDOSCOPY (WRV U 2.09) Incontinence of feces, unspecified fecal incontinence type Dysphagia, unspecified type COLONOSCOPY, DIAGNOSTIC (WRV U 3.26) Incontinence of feces, unspecified fecal incontinence type Dysphagia, unspecified type documented as of this encounter Visit Diagnoses Diagnosis CHEMA treated with BiPAP documented in this encounter Care Teams Blind Aide Relationship Specialty Start Date End Date Vanita Churchill APRN PCP - General Family Medicine 02/27/19 documented as of this encounter
--- OUTSIDE RECORDS SUMMARY | 2024-06-14 01:48 | XMS_ITS | Encounter Summary ---
Author Organization [facility] [place] [address] Care Team Providers Care Chemical Packager Name Role Phone Vanita Churchill KYARA Primary Care Provider [phone] Encounter Details Date Type Department Care Team (Late st Contact Info) Description 06/13/2019 Telephone [place] [phone] Deborah Villegas, [facility] Social History Tobacco Use Types Packs/Day Years [...] 2:40 PM EDT Office Visit Cardiology at [address] [place] [phone] Rigoberto Diaz MD [facility] [place] [address] Scheduled Procedures Name Priority Associated Diagnoses Date/Ti me EGD, UPPER GI ENDOSCOPY (WRV U 2.09) Incontinence of feces, unspecified fecal incontinence type Dysphagia, unspecified type COLONOSCOPY, DIAGNOSTIC (WRV U 3.26) Incontinence of feces, unspecified fecal incontinence type Dysphagia, unspecified type documented as of this encounter Visit Diagnoses Not on filedocumented in this encounter Care Teams Chemical Packager Relationship Specialty Start Date End Date Vanita Churchill, ALTERATIONS SUPERVISOR PCP - General Family Medicine 02/27/19 documented as of this encounter
--- OUTSIDE RECORDS SUMMARY | 2024-06-14 01:48 | XMS_ITS | Encounter Summary ---
[place] [address] Care Team Providers Care Pediatric Audiologist Name Role Phone Vanita Churchill RESTORATIVE REHAB AIDE Primary Care Provider [phone] Encounter Details Date Type Department Care Team (Late st Contact Info) Description 06/13/2019 10:45 AM EDT Office Visit [place] [phone] Lubna Johnston MD [facility] DR [place] [address] Acute urticaria Social History Tobacco Use Types Packs/Day Years [...] on file documented as of this encounter Patient Instructions * Patient Instructions* Dorota Montaño MD - 06/13/2019 10:45 AM EDT Patient seen and examined. Agree with resident note. Will have patient return for follow up with me on 06/17. Dorota Montaño MD documented in this encounter Progress Notes * Lubna Johnston MD - 06/13/2019 10:45 AM EDT OUTPATIENT VASCULAR SURGERY FOLLOW-UP Reason for Visit: rash History of Present Illness: Lindsey Deleon is a 68 y.o. female 3 days s/p right carotid endarterectomy. Yesterday evening she called and complained of a new pruritic rash that appeared when she woke up from a nap that afternoon. She tried Benadryl but she did not find it helpful. She denied (and still denies) F/C, difficulty swallowing or breathing, shortness of breath, drainage from the incision. She was told to come to clinic to be evaluated in the morning (or the ED if she had any concerns beforehand). She notices that since yesterday afternoon, the rash has spread to include more of her chest and now her back. Her postoperative course prior to discharge was unremarkable. On discharge, she was prescribed no new medications and she has not been prescribed anything by other providers since surgery. She does not take Plavix. She has not used any new detergents, lotions, soaps, powders or perfumes. She has not tried any new foods. Review of Systems: As per HPI. Patient Active Problem List Diagnosis Code ??? [...] vascular disease I73.9 ??? Carotid stenosis I65.29 Allergies Allergen Reactions ??? Latex Itching ??? Hemorrhoid Cream [Tissue Resp Fact-Shark Fadumo Oil] Other (See Comments) Bleeding ??? Kaopectate [Bismuth Subsalicylate] Other (See Comments) Rectal Bleeding ??? Lisinopril Other (See Comments) coughing Physical Exam: There were no vitals taken for this visit. General - NAD, appears stated age Neuro - Alert and Oriented, Motor Sensory grossly intact Skin - On the right/lateral neck, there is a blanchable erythematous patch surrounding the right neck incision extending approximately 9cm in all directions from the incision. This region is warm to the touch. Some erythema also extends anteriorly along the right chest. Surrounding this in a shawl p attern over the right chest and back are clusters of small erythematous papules suggestive of urticaria. HEENT - trachea midline. R CEA incision covered with Dermabond and steri strips, no drainage, no fluctuance Musculoskeletal- Normal neck ROM Psych- alert oriented X3 Extremities - Warm, pink, no edema, brisk capillary refill Vascular: R carotid pulse 2+ Labs: none Assessment: 68 y.o. female with new urticarial rash overlying her incision and involving her chest and back. No identified allergen at present. No systemic signs of infection. Based on history and physical exam, there is no concern for fluid collection around the carotid artery and so a carotid Duplex will be deferred at this time. Plan: Start a 5-day prednisone taper today (40mg, 30mg, 20mg, 10mg 5mg) Return to clinic Monday06/17/19 at 12:45pm for appointment with Dr. Montaño Call if worsening symptoms or concerns documented in this encounter Miscellaneous Notes * Addendum Note - Dorota Montaño MD - 06/13/2019 10:45 AM EDTAddended by: DOROTA MONTAÑO on: 06/13/2019 03:08 PM Modules accepted: Level of Service documented in this encounter Plan of Treatment Upcoming Encounters Date Type Department Care Team (Late st Contact Info) Description 02/06/2025 2:40 PM EDT Office Visit Cardiology at [address] [place] [address] Rigoberto Diaz MD [facility] [place] [address] Scheduled Procedures Name Priority Associated Diagnoses Date/Ti me EGD, UPPER GI ENDOSCOPY (WRV U 2.09) Incontinence of feces, unspecified fecal incontinence type Dysphagia, unspecified type COLONOSCOPY, DIAGNOSTIC (WRV U 3.26) Incontinence of feces, unspecified fecal incontinence type Dysphagia, unspecified type documented as of this encounter Visit Diagnoses Diagnosis Acute urticaria Other specified urticaria documented in this encounter Care Teams Pediatric Audiologist Relationship Specialty Start Date End Date Vanita Churchill APRN PCP - General Family Medicine 02/27/19 documented as of this encounter
--- OUTSIDE RECORDS SUMMARY | 2024-06-14 01:48 | XMS_ITS | Encounter Summary ---
Author Organization [facility] [place] [address] Care Team Providers Care Success Coach Name Role Phone Vanita Churchill KYARA Primary Care Provider [phone] Encounter Details Date Type Department Care Team (Latest Contact Info) Description 05/21/2019 2:20 PM EDT [place] [address] Stenosis of carotid artery, unspecified [...] PM EDT Office Visit Cardiology at [address] [phone] Rigoberto Diaz MD [facility] [place] [address] Scheduled Procedures Name Priority Associated Diagnoses Date/Ti me EGD, UPPER GI ENDOSCOPY (WRV U 2.09) Incontinence of feces, unspecified fecal incontinence type Dysphagia, unspecified type COLONOSCOPY, DIAGNOSTIC (WRV U 3.26) Incontinence of feces, unspecified fecal incontinence type Dysphagia, unspecified type documented as of this encounter Procedures Procedure Name Priority Date/Time Associated Diagnosis Comments HEMOGRAM Routine 05/21/2019 2:13 PM EDT Stenosis of carotid artery, unspecified laterality BASIC METABOLIC PANEL (NON-FASTING) Routine 05/21/2019 2:13 PM EDT Stenosis of carotid artery, unspecified laterality documented in this encounter Results * (ABNORMAL) Hemogram (05/21/2019 2:13 PM EDT) WBC 11.5(H) 4.0 - 9.5 x10(3)/[facility] LABOR[facility] RBC 3.92(L) 4.00 - 5.21 x10(6)/[facility] Hemoglobin 13.3 11.7 - 15.5 gm/dL [facility] Hematocrit 39.4 35.7 - 45.8 % [facility] MCV 100.5(H) 82.6 - 94.4 [facility] LABOR[facility]ORY MCH 33.9(H) 27.1 - 32.[address] [facility] MCHC 33.8 31.7 - 35.0 gm/dL [facility] Platelets 260 145 - 357 x10(3)/[facility] RDWSD 45.6 37.0 - 46.0 [facility] LABORATORY RDWCV 12.1 11.5 - 14.1 % [facility] MPV 9.9 7.6 - 12.9 [facility] nRBC % Auto 0.0 % [facility] nRBC Abs Auto 0.000 0.000 - 0.000 x10(3)/[facility] Blood specimen (specimen) 05/21/2019 2:13 PM EDT 05/21/2019 2:34 PM EDT Narrative Resulting Agency Comment Spec In Lab Prerna Harmon MD HEMATOLOGY [facility] [place] [address] * (ABNORMAL) Basic Metabolic Panel (non-fasting) (05/21/2019 2:13 PM EDT) Glucose Lvl 127 65 - 199 mg/dL [facility] Comment:Diabetes: >=200 mg/d L plus symptoms BUN 18 8 - 18 mg/dL [facility] Creatinine 1.04 0.70 - 1.20 mg/dL [facility] Sodium 138 135 - 145 mmol/L [facility] Potassium 4.1 3.5 - 5.0 mmol/L [facility] Comment: Please note: ??Patients with WBC >100,000 may have falsely elevated Potassium levels. ??For accurate Potassium quantification in these patients send serum separator tube (gold top) for subsequent determinations. ??Contact the Clinical Chemistry Laboratory if there are any questions. Chloride 98 98 - 107 mmol/L [facility] CO2 26 22 - 31 mmol/L [facility] Anion Gap 14 5 - 15 mmol/L [facility] Calcium 10.0 8.5 - 10.5 mg/dL [facility] Estimated GFR 54(L) >=60 mL/min/1. 73 m?? [facility] Comment: The eGFR was calculated using the CKD-EPI equation. As with all creatinine based estimates of kidney function, eGFR values calculated with the CKD-EPI equation are not accurate in patients with acute kidney failure, extremes of body mass or the acutely ill. http://[employer]/DHnkf eGFR 63 >=60 mL/min/1. 73 m?? [facility] Comment: The eGFR was calculated using the CKD-EPI equation. As with all creatinine based estimates of kidney function, eGFR values calculated with the CKD-EPI equation are not accurate in patients with acute kidney failure, extremes of body mass or the acutely ill. http://[employer]com/DHMCnkf Blood specimen (specimen) 05/21/2019 2:13 PM EDT 05/21/2019 2:34 PM EDT Narrative Resulting Agency Comment Spec In Lab Prerna Harmon MD CHEMISTRY ORDER TANA [facility] [place] [address] documented in this encounter Visit Diagnoses Diagnosis Stenosis of carotid artery, unspecified laterality documented in this encounter Care Teams Success Coach Relationship Specialty Start Date End Date Vanita Churchill APRN PCP - General Family Medicine 02/27/19 documented as of this encounter
--- OUTSIDE RECORDS SUMMARY | 2024-06-14 01:48 | XMS_ITS | Encounter Summary ---
[place] [address] Care Team Providers Care Electrical Journeyman Name Role Phone Vanita Churchill ENVIRONMENTAL SCIENCES PROFESSOR Primary Care Provider [phone] Encounter Details Date Type Department Care Team (Latest Contact Info) Description 05/21/2019 2:00 PM EDT Clinical Support [place] [phone] Stenosis of carotid artery, unspecified laterality Social [...] as of this encounter Progress Notes * Merlene Asencio RN - 05/21/2019 2:00 PM EDT PAT questionnaire reviewed with patient while in Pre Admission testing. Pre- operative instruction booklet reviewed. Patient verbalizes a good understanding of all information reviewed. PLAN: Testing: None Special medication instructions: None Procedure date: Not yet booked. Faustino documented in this encounter Plan of Treatment Upcoming Encounters Date Type Department Care Team (Late st Contact Info) Description 02/06/2025 2:40 PM EDT Office Visit Cardiology at [address] [place] [address] Rigoberto Diaz MD [facility] [place] [address] Scheduled Procedures Name Priority Associated Diagnoses Date/Ti me EGD, UPPER GI ENDOSCOPY (WRV U 2.09) Incontinence of feces, unspecified fecal incontinence type Dysphagia, unspecified type COLONOSCOPY, DIAGNOSTIC (WRV U 3.26) Incontinence of feces, unspecified fecal incontinence type Dysphagia, unspecified type documented as of this encounter Procedures Procedure Name Priority Date/Time Associated Diagnosis Comments EKG 12-LEAD Routine 05/21/2019 2:39 PM EDT Stenosis of carotid artery, unspecified laterality documented in this encounter Results * EKG 12 Lead (05/21/2019 2:39 PM EDT) Ventricular rate 71 BPM MUSE SYSTEM Atrial Rate 71 BPM MUSE SYSTEM P-R Interval 146 ms MUSE SYSTEM QRS Duration 122 ms MUSE SYSTEM Q-T Interval 422 ms MUSE SYSTEM QTC Calculated (Bezet) 458 ms MUSE SYSTEM Calculated P [place] 64 degrees MUSE SYSTEM Calculated R [place] -31 degrees MUSE SYSTEM Calculated T [place] 34 degrees MUSE SYSTEM INTERPRETATION Normal sinus rhythm Left axis deviation Right bundle branch block Abnormal ECG When compared with ECG of 18-JUL-2017 12:43, QRS axis Shifted left Confirmed by MD Compa, Randy ([id number]) on 05/21/2019 4:44:47 PM MUSE SYSTEM 05/21/2019 2:39 PM EDT 05/21/2019 4:44 PM EDT Prerna Harmon MD ECG ORDERABLES MUSE SYSTEM documented in this encounter Visit Diagnoses Diagnosis Stenosis of carotid artery, unspecified laterality documented in this encounter Care Teams Electrical Journeyman Relationship Specialty Start Date End Date Vanita Churchill APRN PCP - General Family Medicine 02/27/19 documented as of this encounter
--- OUTSIDE RECORDS SUMMARY | 2024-06-14 01:48 | XMS_ITS | Encounter Summary ---
[place] [address] Care Team Providers Care Sql Bi Developer Name Role Phone Vanita Churchill APRN Primary Care Provider [phone] Reason for Visit * Consultation (Routine) - Specialty Diagnoses / Procedures Referred By Emy castillo Referred To Contact Vascular Surgery Diagnoses Hyperlipidemia, unspecified hyperlipidemia Vanita Churchill APRN [address] [place] [address] [facility] Vascular Surg [address] [place] [address] Referral ID Status Reason Start Date Expiration Date V isits Requested Visits Authorized [id number] Consult, Test & Treat Connection [facility] PCP Updated and/or Approved 04/29/2019 10/29/2019 6 6 Encounter Details Date Type Department Care Team (Late st Contact Info) Description 05/21/2019 10:30 AM EDT Tech Visit [place] [address] Marycruz Wagner [place] Stenosis of carotid artery, unspecified laterality Social [...] PM EDT Office Visit Cardiology at [address] [place] [address] Rigoberto Diaz MD [facility] [place] [address] Scheduled Procedures Name Priority Associated Diagnoses Date/Ti me EGD, UPPER GI ENDOSCOPY (WRV U 2.09) Incontinence of feces, unspecified fecal incontinence type Dysphagia, unspecified type COLONOSCOPY, DIAGNOSTIC (WRV U 3.26) Incontinence of feces, unspecified fecal incontinence type Dysphagia, unspecified type documented as of this encounter Procedures Procedure Name Priority Date/Time Associated Diagnosis Comments CAROTID DUPLEX, BILATERAL Routine 05/21/2019 10:22 AM EDT Stenosis of carotid artery, unspecified laterality documented in this encounter Results * Carotid Duplex, Bilateral (05/21/2019 10:22 AM EDT) VB Text Report Department: Vascular Surgery Lab Patient: [id number] ([facility]) CPT: 30550 ICD10: I65.29 Referring Physician: STEPHEN EDUARDO ?? Indications: ??Carotid disease by OSH, ? [...] VASCUBASE 05/21/2019 10:2 2 AM EDT Stephen Eduardo MD VASCULAR ORDERABLES VASCUBASE documented in this encounter Visit Diagnoses Diagnosis Stenosis of carotid artery, unspecified laterality documented in this encounter Care Teams Sql Bi Developer Relationship Specialty Start Date End Date Vanita Churchill, CORPORATE AIRCRAFT MECHANIC PCP - General Family Medicine 02/27/19 documented as of this encounter
--- OUTSIDE RECORDS SUMMARY | 2024-06-14 01:48 | XMS_ITS | Encounter Summary ---
[place] [address] Care Team Providers Care Product Development Engineer Name Role Phone KwesiVanita mix Omar SPARROW Primary Care Provider [phone] Encounter Details Date Type Department Care Team (Latest Contact Info) Description 07/06/2020 10:40 AM EDT TH Visit (TeleHealth) [place] [address] Jake Montaño MD [facility] [place] [place] [address] Stenosis of right carotid artery; PVD (peripheral vascular disease) Social History Tobacco Use Types Packs/Day [...] as of this encounter Progress Notes * Jake Montaño MD - 07/06/2020 10:40 AM EDT Images from the original note were not included. Vascular Surgery Clinic Visit July 06, 2020 CC: Patient is a 69 y.o. female for follow up of carotid stenosis and PVD. 08/15/17 L iliofemoral endarterectomy, B TRE stent placement (8x38mm BE) for short distance claudication 06/10/19 R CEA for asymptomatic severe stenosis ?? This is a telephone clinic visit. Doing well without any symptoms concerning for stroke, TIA, or amaurosis fugax. ?? Denies any??claudication symptoms. No rest pain [...] zetia, flovent, duoneb, zyrtec,??synthroid,??celexa, wellbutrin ? Tob:??quit ' FHx: neg for coagulopathy Physical Exam: Denies any open wounds on either foot. Labs: Labor Utilization Superintendent (05/21/19): 1.04 Imaging studies: I have personally reviewed the following imaging studies. Carotid duplex (07/02/20): Interpretation: ?? RIGHT: There is smooth plaque in the proximal internal carotid artery causing <15% stenosis when compared to the more distal internal carotid artery. The bifurcation level is in the mid neck. No significant change compared to previous exam. ? LEFT: There is irregular plaque in the proximal internal carotid artery causing 16-49% stenosis when compared to the more distal internal carotid artery. The bifurcation level is in the mid neck. No significant change compared to previous exam. ? Vertebral Artery Data: Patent vertebral arteries with normal antegrade Doppler waveforms and velocities bilaterally. ? Previous Carotid Studies: Date ?RIGHT ICA Stenosis ??PSV ?? Ratio ?? LEFT ICA Stenosis ?? PSV ?? Ratio ? 80-99% ? 514 ?? 8.00 ? 16-49% ? 88 ?1.20 ? <15% ? 96 ?1.20 ? n/a ?n/a ?? n/a Current Exam ? <15% ? 131 ?? 2.00 ? 16-49% ? 102 ?? 1.00 MARIYA (07/02/20): 0.92/0.88 A/P: 69yo female s/p R CEA and L femoral endarterectomy/B iliac stents doing well. -con't asa and statin -con't smoking cessation and regular exercise -f/u 1yr with carotid duplex and MARIYA Jake Montaño MD documented in this encounter Plan of Treatment Upcoming Encounters Date Type Department Care Team (Late st Contact Info) Description 02/06/2025 2:40 PM EDT Office Visit Cardiology at [address] [place] [address] Rigoberto Diaz MD [facility] [place] [address] Scheduled Procedures Name Priority Associated Diagnoses Date/Ti [...] of cerebral infarction PVD (peripheral vascular disease) Peripheral vascular disease, unspecified documented in this encounter Care Teams Product Development Engineer Relationship Specialty Start Date End Date Vanita Churchill APRN PCP - General Family Medicine 02/27/19 documented as of this encounter
--- OUTSIDE RECORDS SUMMARY | 2024-06-14 01:49 | XMS_ITS | Encounter Summary ---
Author Organization [facility] [place] [address] Care Team Providers Care Quarter Folder Name Role Phone Hopkins, Demetra Combs APRN Primary Care Provider [phone] Encounter Details Date Type Department Care Team (Late st Contact Info) Description 08/14/2017 Telephone [place] [phone] Prerna Pickard MD [facility] [place] [address] Social History Tobacco Use Types Packs/Day Years [...] encounter Miscellaneous Notes * Telephone Encounter - Prerna Pickard MD - 08/14/2017 1:56 PM EDT Pt is scheduled for vascular surgery tomorrow. I called to confirm pt has healed her fungal groin infection. She assured me she has been using nystatin powder and has no erythema at the groins. We will see her for surgery tomorrow morning. documented in this encounter Plan of Treatment Upcoming Encounters Date Type Department Care Team (Late st Contact Info) Description 02/06/2025 2:40 PM EDT Office Visit Cardiology at [address] [place] [phone] Rigoberto Diaz MD [facility] [place] [address] Scheduled Procedures Name Priority Associated Diagnoses Date/Ti me EGD, UPPER GI ENDOSCOPY (WRV U 2.09) Incontinence of feces, unspecified fecal incontinence type Dysphagia, unspecified type COLONOSCOPY, DIAGNOSTIC (WRV U 3.26) Incontinence of feces, unspecified fecal incontinence type Dysphagia, unspecified type documented as of this encounter Visit Diagnoses Not on filedocumented in this encounter Care Teams Quarter Folder Relationship Specialty Start Date End Date Demetra Goff APRN PCP - General 10/19/12 12/31/17 documented as of this encounter
--- OUTSIDE RECORDS SUMMARY | 2024-06-14 01:49 | XMS_ITS | Encounter Summary ---
Author Organization [facility] [place] [address] Care Team Providers Care Trade Specialist Name Role Phone Vanita Churchill WAFER POLISHING WORKER Primary Care Provider [phone] Encounter Details Date Type Department Care Team (Latest Contact Info) Description 02/27/2019 9:00 AM EDT Tech Visit Vascular Lab at [facility] [place] [phone] Avel Miller, RVT Atherosclerotic PVD with intermittent claudication Social History Tobacco Use Types Packs/Day [...] 2:40 PM EDT Office Visit Cardiology at [address] [phone] Rigoberto Diaz [place] [address] Scheduled Procedures Name Priority Associated Diagnoses Date/Ti me EGD, UPPER GI ENDOSCOPY (WRV U 2.09) Incontinence of feces, unspecified fecal incontinence type Dysphagia, unspecified type COLONOSCOPY, DIAGNOSTIC (WRV U 3.26) Incontinence of feces, unspecified fecal incontinence type Dysphagia, unspecified type documented as of this encounter Procedures Procedure Name Priority Date/Time Associated Diagnosis Comments MARIYA, LEGS, MULTIPLE LEVELS Routine 02/27/2019 9:00 AM EDT Atherosclerotic PVD with intermittent claudication documented in this encounter Results * MARIYA, legs, multiple levels (02/27/2019 9:00 AM EDT) VB Text Report Department: Vascular Surgery Lab Patient: [id number] ([facility] FIGUEREDO) CPT: 42756 ICD10: I70.219 Referring Physician: DOROTA MONTAÑO MD ?? Phone: Indications: ??PVD, ? change Diabetes mellitus: no ICD10 Diagnosis Code: I70.219 Findings: Right ?Pressure (mm Hg) ?? MARIYA ??Waveform ? Brachial Artery ?116 ? Dorsalis Pedis (Ankle) Artery ?103 ? 0.89 ??Bi-Triphasic ?? Posterior Tibial (Ankle) Artery ??105 ? 0.91 ??Bi-Triphasic ?? Left ? Pressure (mm Hg) ?? MARIYA ??Waveform ? Brachial Artery ?116 ? Dorsalis Pedis (Ankle) Artery ?101 ? 0.87 ??Bi-Triphasic ?? Posterior Tibial (Ankle) Artery ??103 ? 0.89 ??Bi-Triphasic ?? Interpretation: RIGHT: Mild lower extremity [...] ? ---- ??0.85(-.09) 0.90(-.01) ---- ? ---- Current ? 0.89(+.04) 0.91(+.01) ---- ? ---- Date ?LEFT DP ?LEFT PT ?LT GR TOE LT Sec TOE ??0.48 ? 0.68 ? ---- ? ---- ??0.80(+.32) 0.84(+.16) ---- ? ---- ??0.80( .00) 0.85(+.01) ---- ? ---- Current ? 0.87(+.07) 0.89(+.04) ---- ? ---- Electronically Signed by: DOROTA MONTAÑO MD on 2019-03-01 04:19:10 PM VASCUBASE VB Text Report End of Report VASCUBASE 02/27/2019 9:00 AM EDT Dorota Montaño MD VASCULAR ORDERABLES VASCUBASE documented in this encounter Visit Diagnoses Diagnosis Atherosclerotic PVD with intermittent claudication Atherosclerosis of [place] arteries of the extremities with intermittent claudication documented in this encounter Care Teams Trade Specialist Relationship Specialty Start Date End Date Vanita Churchill, WAFER POLISHING WORKER PCP - General Family Medicine 02/27/19 documented as of this encounter
--- OUTSIDE RECORDS SUMMARY | 2024-06-14 01:49 | XMS_ITS | Encounter Summary ---
[place] [address] Care Team Providers Care School Supervisor Name Role Phone None Primary Care Provider Unavailabl e Encounter Details Date Type Department Care Team (Latest Contact Info) Description 09/27/2018 9:00 AM EDT Office Visit [place] [address] Dorota Montaño MD [facility] [place] [address] Atherosclerotic PVD with intermittent claudication Social History [...] Sign Reading Time Taken Comments Blood Pressure 140/67 09/27/2018 8:50 AM EDT Pulse 72 09/27/2018 8:50 AM EDT Temperature - - Respiratory Rate - - Oxygen Saturation 96% 09/27/2018 8:50 AM EDT Inhaled Oxygen Concentration - - Weight 83.5 kg (184 lb) 09/27/2018 8:50 AM EDT r eported Height 163.8 cm (5' 4.5) 09/27/2018 8:50 AM EDT reported Body Mass Index 31.1 09/27/2018 8:50 AM EDT documented in this encounter Progress Notes * Dorota Montaño MD - 09/27/2018 9:00 AM EDT Images from the original note were not included. Vascular Surgery Clinic Visit September 27, 2018 CC: Patient is a 67 y.o. female who is here for follow up of PVD. 08/15/17 L iliofemoral endarterectomy, B TRE stent placement (8x38mm BE) for short distance claudication ?? Presents for scheduled follow up visit. Denies any claudication symptoms. No rest pain or non-healing wounds. ?? ROS is??negative??for history of CAD or CP. Has baseline SOB from COPD. ??Does not use home O2 and denies hospitalizations for COPD exacerbations. No history suggestive of stroke, TIA, or amaurosis fugax. No history of DM. ?? Is a past smoker, having quit in 2003. ? PMH:??HTN, COPD, GERD, hypothyroidism, lap hiatal hernia repair, bebo All:??latex Meds include:??ASA, lisinopril, HCTZ, ezetimibe-simvastatin, flovent, duoneb, zyrtec, synthroid, melatonin, celexa ? Tob:??quit '04 ? Physical Exam: On exam, she??is in NAD, RRR, CTA B, Abd soft/NT/ND. Palpable carotid and radial pulses bilaterally. Palpable DPs bilaterally. No open lesions on either foot. Labs: Director Digital Sales (08/17/17): 0.85 No results available for lipid panel or HA1C. Imaging studies: I have personally reviewed the following imaging studies. MARIYA (09/27/18): 0.90/0.85 A/P: 67yo female s/p L femoral endarterectomy and B iliac stent placement doing well. -con't asa and statin -con't smoking cessation -regular exercise -f/u 6mo with MARIYA Dorota Montaño MD documented in this encounter Plan of Treatment Upcoming Encounters Date Type Department Care Team (Late st Contact Info) Description 02/06/2025 2:40 PM EDT Office Visit Cardiology at [address] [place] [address] Rigoberto Diaz MD [facility] [place] [address] Scheduled Procedures Name Priority Associated Diagnoses Date/Ti me EGD, UPPER GI ENDOSCOPY (WRV U 2.09) Incontinence of feces, unspecified fecal incontinence type Dysphagia, unspecified type COLONOSCOPY, DIAGNOSTIC (WRV U 3.26) Incontinence of feces, unspecified fecal incontinence type Dysphagia, unspecified type documented as of this encounter Results * MARIYA, legs, multiple levels (02/27/2019 9:00 AM EDT) VB Text Report Department: Vascular Surgery Lab Patient: [id number] ([facility]ULIA MURILLOSA) CPT: 75474 ICD10: I70.219 Referring Physician: DOROTA MONTAÑO MD [...] Atherosclerotic PVD with intermittent claudication Atherosclerosis of [place] arteries of the extremities with intermittent claudication documented in this encounter Care Teams School Supervisor Relationship Specialty Start Date End Date None None PCP - General 09/27/18 02/26/19 documented as of this encounter
--- OUTSIDE RECORDS SUMMARY | 2024-06-14 01:49 | XMS_ITS | Encounter Summary ---
Author Organization [facility] [place] [address] Care Team Providers Care Ophthalmologist Name Role Phone None Primary Care Provider Unavailabl e Encounter Details Date Type Department Care Team (Late st Contact Info) Description 01/03/2019 Telephone Sleep Center at [facility] [address] [place] [phone] Nohemy Sanchez LPN Social History Tobacco Use Types Packs/Day Years [...] PM EDT Office Visit Cardiology at [address] [place] [address] Rigoberto Diaz MD [place] [address] Scheduled Procedures Name Priority Associated Diagnoses Date/Ti me EGD, UPPER GI ENDOSCOPY (WRV U 2.09) Incontinence of feces, unspecified fecal incontinence type Dysphagia, unspecified type COLONOSCOPY, DIAGNOSTIC (WRV U 3.26) Incontinence of feces, unspecified fecal incontinence type Dysphagia, unspecified type documented as of this encounter Visit Diagnoses Not on filedocumented in this encounter Care Teams Ophthalmologist Relationship Specialty Start Date End Date None None PCP - General 09/27/18 02/26/19 documented as of this encounter
--- OUTSIDE RECORDS SUMMARY | 2024-06-14 01:49 | XMS_ITS | Encounter Summary ---
[place] [address] Care Team Providers Care Locomotive Crane Operator Name Role Phone Kwesidominguez Vanita Dominguez SPARROW Primary Care Provider [phone] Encounter Details Date Type Department Care Team (Late st Contact Info) Description 01/09/2019 Telephone Sleep Center at [facility] [address] [place] [address] Samantha Su Social History Tobacco Use Types Packs/Day Years [...] encounter Miscellaneous Notes * Telephone Encounter - Samantha Su - 01/09/2019 3:01 PM EST Pt called and wanted to be sure BIPAP RX went to [place] as [facility] is now closed. [facility] documented in this encounter Plan of Treatment Upcoming Encounters Date Type Department Care Team (Late st Contact Info) Description 02/06/2025 2:40 PM EDT Office Visit Cardiology at [address] [place] [address] Rigoberto Diaz MD [facility] [place] [address] Scheduled Procedures Name Priority Associated Diagnoses Date/Ti me EGD, UPPER GI ENDOSCOPY (WRV U 2.09) Incontinence of feces, unspecified fecal incontinence type Dysphagia, unspecified type COLONOSCOPY, DIAGNOSTIC (WRV U 3.26) Incontinence of feces, unspecified fecal incontinence type Dysphagia, unspecified type documented as of this encounter Visit Diagnoses Not on filedocumented in this encounter Care Teams Locomotive Crane Operator Relationship Specialty Start Date End Date Vanita Churchill APRN PCP - General Family Medicine 02/27/19 documented as of this encounter
--- OUTSIDE RECORDS SUMMARY | 2024-06-14 01:49 | XMS_ITS | Encounter Summary ---
[place] [address] Care Team Providers Care Pharmacy Operations Manager Name Role Phone Demetra Goff APRN Primary Care Provider [phone] Reason for Visit * Reason Comments Wound Check Encounter Details Date Type Department Care Team (Late st Contact Info) Description 08/30/2017 9:30 AM EDT Office Visit [place] [address] Jake Montaño MD [facility] [place] [address] PVD (peripheral vascular disease) with claudication Social [...] Sign Reading Time Taken Comments Blood Pressure 127/64 08/30/2017 9:32 AM EDT Pulse 86 08/30/2017 9:32 AM EDT Temperature - - Respiratory Rate - - Oxygen Saturation - - Inhaled Oxygen Concentration - - Weight 90.3 kg (199 lb) 08/30/2017 9:32 AM EDT Height 162.6 cm (5' 4) 08/30/2017 9:32 AM EDT Body Mass Index 34.16 08/30/2017 9:32 AM EDT documented in this encounter Progress Notes * Jake Montaño MD - 08/30/2017 9:30 AM EDT Vascular Surgery Clinic Visit August 30, 2017 CC: Patient is a 66 y.o. female who is here for follow up of left groin wound. ?? Presents for scheduled visit. Underwent L iliofemoral endarterectomy and B TRE stent placement on 08/15/17. Started on Keflex for erythema around incision. ?? On exam, patient in NAD. L groin incision without any erythema, drainage, or fluctuance. Mid-portion of incision with superficial separation. Recommend continuing with antibiotic ointment/DSD BID. Can stop oral antibiotics. Follow up in 2 weeks with treadmill test/MARIYA. Jake Montaño MD documented in this encounter Plan of Treatment Upcoming Encounters Date Type Department Care Team (Late st Contact Info) Description 02/06/2025 2:40 PM EDT Office Visit Cardiology at [address] [phone] Rigoberto Diaz MD [facility] [address] Scheduled Procedures Name Priority Associated Diagnoses Date/Ti [...] unspecified documented in this encounter Care Teams Pharmacy Operations Manager Relationship Specialty Start Date End Date Demetra Goff APRN PCP - General 10/19/12 12/31/17 documented as of this encounter
--- OUTSIDE RECORDS SUMMARY | 2024-06-14 01:49 | XMS_ITS | Encounter Summary ---
[place] [address] Care Team Providers Care Quarry Extraction Worker Name Role Phone Demetra Goff APRN Primary Care Provider [phone] Encounter Details Date Type Department Care Team (Latest Contact Info) Description 08/15/2017 - 08/15/2017 5:35 AM EDT Hospital Encounter [place] [phone] Discharge Disposition: Home Social History Tobacco Use [...] (Mycostatin) Cream Three times a day 03/21/2014 ipratropium-albuterol (DUONEB) 0.5 mg-3 mg(2.5 mg base)/3 [...] tablet Take 325 mg by mouth daily. CARBOXYMETHYLCELLULOS E SODIUM (REFRESH TEARS OPHT) Apply to eye 2 times daily. FOLIC ACID ORAL 10/12/2010 nystatin (MYCOSTATIN) Cream Apply topically. 03/21/2014 03/08/2023 oxyCODONE (ROXICODONE) 5 mg Tablet Take 1 tablet by mouth every 4 hours as needed for Pain. 15 tablet 08/17/2017 12/08/2017 fluconazole (DIFLUCAN) 150 mg Tablet Take 1 tablet by mouth daily for 5 days. 5 tablet 08/17/2017 08/22/2017 clopidogrel (PLAVIX) 75 mg Tablet Take 1 tablet by mouth daily for 30 days. 90 tablet 3 08/16/2017 09/15/2017 simvastatin (ZOCOR) 40 mg Tablet Take 1 tablet by mouth every evening. 30 tablet 08/16/2017 08/16/2017 clopidogrel (PLAVIX) 75 mg Tablet Take 1 tablet by mouth daily for 30 days. 30 tablet 08/16/2017 08/16/2017 simvastatin (ZOCOR) 40 mg Tablet Take 1 tablet by mouth every evening. 90 tablet 3 08/16/2017 08/17/2017 fluconazole (DIFLUCAN) 150 mg Tablet Take 1 tablet by mouth once as needed for up to 1 dose. Take once as needed for fungal groin infection 5 tablet 08/14/2017 08/17/2017 KRILL OIL ORAL Take 1,000 mg by mouth daily. 03/19/2021 loperamide (IMODIUM A-D) 2 mg Capsule Take 2 mg by mouth as needed. 05/21/2019 fluticasone (FLOVENT) 110 mcg/actuation HFA Aerosol Inhaler Inhale 1 puff into the lungs 2 times daily. flovent diskus 11/23/2023 hydroCHLOROthiazide (MICROZIDE) 12.5 mg Capsule Take 12.5 mg by mouth daily. 03/19/2021 lisinopril (PRINIVIL;ZESTRIL) 10 mg Tablet Take 10 mg by mouth daily. 05/21/2019 melatonin 5 mg Tablet Take by mouth nightly. 05/21/2019 levothyroxine (SYNTHROID) 50 mcg TabletIndications:hyp othyroidism Take 50 mcg by mouth daily. Indications: Hypothyroidism 10/11/2022 fluticasone (FLONASE) 50 mcg/actuation [place], SuspensionIndications :Seasonal allergic rhinitis 2 sprays by Each Nare route daily as needed for Rhinitis. 16 g 3 05/03/2016 03/19/2021 POLYETHYLENE GLYCOL 3350 (MIRALAX ORAL) Take by mouth as needed. 02/05/2024 LACTOBACILLUS RHAMNOSUS GG (CULTURELLE ORAL) Take by mouth daily. citalopram (CELEXA) 20 mg tabletIndications:Dep ression Take 2 tablets by mouth daily. 60 tablet 10/11/2012 02/16/2018 BETA-CAROTENE,A, W-C & E/MIN (OCUVITE ORAL) Take by mouth. 05/21/2019 albuterol (PROVENTIL HFA;VENTOLIN HFA) 90 mcg/Actuation inhalerIndications:ch ronic obstructive pulmonary disease Inhale 2 puffs into the lungs every 4 hours as needed. Use with spacer Indications: Chronic Obstructive Pulmonary Disease 05/21/2019 ezetimibe-simvastatin (VYTORIN 10-40) 10-40 mg per tablet 10/12/2010 05/21/2019 documented as of this encounter Plan of Treatment Upcoming Encounters Date Type Department Care Team (Late st Contact Info) Description 02/06/2025 2:40 PM EDT Office Visit Cardiology at [address] [phone] Rigoberto Diaz MD [facility] [place] [id number] Scheduled Procedures Name Priority Associated Diagnoses Date/Ti me EGD, UPPER GI ENDOSCOPY (WRV U 2.09) Incontinence of feces, unspecified fecal incontinence type Dysphagia, unspecified type COLONOSCOPY, DIAGNOSTIC (WRV U 3.26) Incontinence of feces, unspecified fecal incontinence type Dysphagia, unspecified type documented as of this encounter Procedures Procedure Name Priority Date/Time Associated Diagnosis Comments IR OR VASC ANGIOGRAM IMAGE STORAGE ONLY Routine 08/15/2017 10:41 AM EDT documented in this encounter Results * IR OR VASC Aniogram Image Storage Only (08/15/2017 10:41 AM EDT) Narrative [facility] - 08/15/2017 10:39 AM EDT This exam is for storage only and is auto-finalizing. Jake Montaño MD IMG FILM LIBRARY ORD ERABLES [place], [place] documented in this encounter Visit Diagnoses Not on filedocumented in this encounter Care Teams Quarry Extraction Worker Relationship Specialty Start Date End Date Demetra Goff APRN PCP - General 10/19/12 12/31/17 documented as of this encounter
--- OUTSIDE RECORDS SUMMARY | 2024-06-14 01:49 | XMS_ITS | Encounter Summary ---
Author Organization [facility] [place] [address] Care Team Providers Care Security Test Engineer Name Role Phone Alethea Beal Primary Care Provider + Encounter Details Date Type Department Care Team (Late st Contact Info) Description 02/16/2018 Orders Only Vascular Surgery at [facility] [place] [phone] Delmis Camargo CMA Atherosclerotic PVD with intermittent claudication Social History [...] PM EDT Office Visit Cardiology at [address] [phone] Rigoberto Diaz MD [facility] [place] [address] Scheduled Procedures Name Priority Associated Diagnoses Date/Ti me EGD, UPPER GI ENDOSCOPY (WRV U 2.09) Incontinence of feces, unspecified fecal incontinence type Dysphagia, unspecified type COLONOSCOPY, DIAGNOSTIC (WRV U 3.26) Incontinence of feces, unspecified fecal incontinence type Dysphagia, unspecified type documented as of this encounter Results * MARIYA, legs, multiple levels (09/27/2018 8:32 AM EDT) VB Text Report Department: Vascular Surgery Lab Patient: [id number] (LINDSEY FIGUEREDO) CPT: 03149 ICD10: I73.9;I70.219 Referring Physician: DOROTA MONTAÑO MD ?? Phone: Indications: Patient with PVD and H/O bilateral iliac stenting and left common femoral artery endarterectomy, ? change in MARIYA Diabetes mellitus: No ICD10 Diagnosis Code: I73.9, I70.219 Findings: Right ?Pressure (mm Hg) ?? MARIYA ??Waveform ?? Brachial Artery ?126 ? Dorsalis Pedis (Ankle) Artery ?108 ? 0.85 ??Triphasic ?? Posterior Tibial (Ankle) Artery ??114 ? 0.90 ??Triphasic ?? Left ? Pressure (mm Hg) ?? MARIYA ??Waveform ?? Brachial Artery ?127 ? Dorsalis Pedis (Ankle) Artery ?102 ? 0.80 ??Triphasic ?? Posterior Tibial (Ankle) Artery ??108 ? 0.85 ??Triphasic ?? Interpretation: RIGHT: Mild lower extremity arterial occlusive disease. No identifiable change when compared to the previous exam performed on 02/16/2018. LEFT: Mild lower extremity arterial occlusive disease. No identifiable change when compared to the previous exam performed on 02/16/2018. Previous ABIs with change from previous value: Date ?RIGHT DP ?? RIGHT PT ?? RT GR TOE ??RT Sec TOE ??0.48 ? 0.64 ? ---- ? ---- ??0.94(+.46) 0.91(+.27) ---- ? ---- Current ? 0.85(-.09) 0.90(-.01) ---- ? ---- Date ?LEFT DP ?LEFT PT ?LT GR TOE LT Sec TOE ??0.48 ? 0.68 ? ---- ? ---- ??0.80(+.32) 0.84(+.16) ---- ? ---- Current ? 0.80( .00) 0.85(+.01) ---- ? ---- Electronically Signed by: DOROTA MONTAÑO MD on 2018-09-27 04:21:33 PM [facility] VB Text Report End of Report [facility] 09/27/2018 8:32 AM EDT Dorota Montaño MD VASCULAR ORDERABLES [facility] documented in this encounter Visit Diagnoses Diagnosis Atherosclerotic PVD with intermittent claudication Atherosclerosis of [place] arteries of the extremities with intermittent claudication documented in this encounter Care Teams Security Test Engineer Relationship Specialty Start Date End Date Alethea Beal PA PCP - General Orthopaedic Surgery 01/01/18 09/26/18 documented as of this encounter
--- OUTSIDE RECORDS SUMMARY | 2024-06-14 01:49 | XMS_ITS | Encounter Summary ---
[facility] Organization [facility] [place] [address] Care Team Providers Care Low Emission Automobile Designer Name Role Phone [place], Demetra Combs APRN Primary Care Provider [phone] Reason for Visit * Auth/Cert Specialty Diagnoses / Procedures Referred By Emy castillo Referred To Contact Diagnoses Claudication in peripheral vascular disease claudication Procedures PRO THROMBOENDARTECTMY FEMORAL COMMON PRO REVSC OPEN/PERCUTANEOUS ILIAC ART W STNT PLMT&ANGIO PATRICE VSL UNILAT @ENDARTERECTOMY, COMMON FEMORAL W OR W/O PATCH GRAFT (WRVU 15.31) REVSC OPN\PRQ ILIAC ART W\STNT PLMT & ANGIOP SAME VSL (WRVU 10) Referral ID Status Reason Start Date Expiration Date Visits Re quested Visits Authorized [id number] 1 1 Encounter Details Date Type Department Care Team (Late st Contact Info) Description 08/15/2017 7:30 AM EDT - 08/15/2017 11:28 AM EDT Surgery [place] [address] Jake Montaño MD [facility] [place] [address] REVSC OPN\PRQ ILIAC ART W\STNT PLMT & ANGIOP SAME VSL (WRVU 9.75) Social History Tobacco Use Types Packs/Day Years [...] Sign Reading Time Taken Comments Blood Pressure 127/54 08/15/2017 6:08 AM EDT Pulse 69 08/15/2017 6:08 AM EDT Temperature 36.6 ??C (97.9 ??F) 08/15/2017 6:08 AM ED T Respiratory Rate 18 08/15/2017 6:08 AM EDT Oxygen Saturation 96% 08/15/2017 6:08 AM EDT Inhaled Oxygen Concentration - - Weight 93 kg (205 lb) 08/15/2017 6:08 AM EDT Height 162.6 cm (5' 4) 08/15/2017 6:08 AM EDT Body Mass Index 35.19 08/15/2017 6:08 AM EDT documented in this encounter Discharge Summaries * Prerna Pickard MD - 08/17/2017 7:08 AM EDT Inpatient - Discharge Summary Patient Name: Lindsey Deleon Patient Age: 66 y.o. Birthdate: 1950 Admit date: 08/15/2017 Discharge date and time: 08/17/2017 Attending Physician: Jake Montaño MD Discharge Diagnoses (Hospital Problems) and Secondary Diagnoses (Chronic Problems): Active Hospital Problems Diagnosis ??? Claudication in peripheral vascular disease 08/15/2017: Left common femoral endarterectomy and patch angioplasty, Bilateral common iliac stents (Xpress stent 8mm x 40mm bilaterally) Resolved Hospital Problems Diagnosis Date Resolved No resolved problems to display. Active Non-Hospital Problems Diagnosis ??? Obesity (BMI 30-39.9) ??? Atherosclerotic PVD with intermittent claudication ??? Asthma ??? Seasonal allergic rhinitis ??? Hypothyroidism ??? IBS (irritable bowel syndrome) ??? Constipation ??? GERD (gastroesophageal reflux disease) ??? HTN (hypertension) ??? Hypercholesteremia ??? Rheumatoid arthritis(714.0) ??? Depression ??? Emphysema ??? Macular degeneration ??? CHEMA (obstructive sleep apnea) Operations/Major Procedures: 08/15/2017: Left common femoral endarterectomy and patch angioplasty, Bilateral common iliac stents (Xpress stent 8mm x 40mm bilaterally) History of Presentation: 66F w HTN HLD obesity (BMI 35) who presents with short distance claudication bilatreally worse on left than right after walking ~5 min. No prior AK or stroke. Wears CPAP at night for CHEMA. Maintained on daily ASA statin. ?? Hospital Course: In surgery, bulky calcific plaque in left common femoral--> endarterectomy performed with good results, bovine patch angioplasrt used to close the arteriotomy. Aortogram revealed bilateral stenoses in the proximal common iliac arteries with severe stenosis on the right. Bilateral Xpress stents 8mm x 40mm deployed in kissing fashion with good results, ballooned to 10 GLO. Completion revealed widely patent common, external, and internal iliacs bilaterally with DP and PT signals at case end. Pt admitted for postop monitoring. Of note in the PACU the pt did briefly require pressor support for a acute post op circulatory shock. Pressor was weaned in the recovery area. The pt was ambulating POD 1. POD 1 she was noted to have mild erythema at the incision. Ancef was continued an additional 24 hours. By POD 2 erythema had resolved. Pt had strong DP and PT signals. She walked independently multiple times, and was feeling well. Of note, pt started on Aspirin/Statin/Plavix medications this admission with prescriptions sent. She will follow up in [address] Montaño with ABIs prior to the appt. Important Studies and Lab Data: Labs: Lab Results Component Value Date CREATININE 0.85 08/17/2017 Discharge Conditions/Prognosis: Good Discharge to:Home with VNA for wound check Discharge Medications: Your Medications Notice Some of the medications listed here do not show instructions, such as how often to take the medication. Ask your doctor or nurse how to use these medications. Specifically ask about these and similar medications: - FOLIC ACID ORAL - ezetimibe-simvastatin (VYTORIN 10-40) 10-40 mg per tablet New Medications Dose Details clopidogrel 75 mg Tab Commonly known as: PLAVIX Take 1 tablet by mouth daily for 30 days. 75 mg Quantity: 90 tablet Refills: 3 oxyCODONE 5 mg Tab Commonly known as: ROXICODONE Take 1 tablet by mouth every 4 hours as needed for Pain. 5 mg Quantity: 15 tablet Refills: 0 simvastatin 40 mg Tab Commonly known as: ZOCOR Take 1 tablet by mouth every evening. 40 mg Quantity: 90 tablet Refills: 3 Continued medications with new dosing Dose Details fluconazole 150 mg Tab Commonly known as: DIFLUCAN Take 1 tablet by mouth daily for 5 days. What changed: - when to take this - reasons to take this - additional instructions 150 mg Quantity: 5 tablet Refills: 0 Continued medications, unchanged Dose Details acetaminophen 650 mg/20.3 mL Soln Commonly known as: TYLENOL Take 20.3 mLs by mouth every 4 hours as needed. 650 mg Quantity: 350 mL Refills: 1 albuterol 90 mcg/actuation Hfaa Inhale 2 puffs into the lungs every 4 hours as needed. Use with spacer Indications: Chronic Obstructive Pulmonary Disease 2 puff Refills: 0 aspirin 325 mg Tab Take 325 mg by mouth daily. 325 mg Refills: 0 citalopram 20 mg Tab Commonly known as: celeXA Take 2 tablets by mouth daily. 40 mg Quantity: 60 tablet Refills: 0 CULTURELLE ORAL Take by mouth daily. Refills: 0 * fluticasone 110 mcg/actuation Hfaa Commonly known as: FLOVENT Inhale 1 puff into the lungs 2 times daily. 1 puff Refills: 0 * fluticasone 50 mcg/actuation Spsn Commonly known as: FLONASE 2 sprays by Each Nare route daily as needed for Rhinitis. 2 spray Quantity: 16 g Refills: 3 FOLIC ACID ORAL ?nk?wn!?? Refills: 0 hydroCHLOROthiazide 12.5 mg Cap Commonly known as: MICROZIDE Take 12.5 mg by mouth daily. 12.5 mg Refills: 0 IMODIUM A-D 2 mg Cap Take 2 mg by mouth nightly. Generic drug: loperamide 2 mg Refills: 0 ipratropium-albuterol 0.5 mg-3 mg(2.5 mg base)/3 mL Nebu Commonly known as: DUONEB Take 3 mLs by nebulization 2 times daily. 3 mL Refills: 0 KRILL OIL ORAL Take 1,000 mg by mouth daily. 1000 mg Refills: 0 levothyroxine 50 mcg Tab Commonly known as: SYNTHROID Take 50 mcg by mouth daily. Indications: Hypothyroidism 50 mcg Refills: 0 lisinopril 10 mg Tab Commonly known as: PRINIVIL;ZESTRIL Take 10 mg by mouth daily. 10 mg Refills: 0 melatonin 5 mg Tab Take by mouth nightly. Refills: 0 MIRALAX ORAL Take by mouth as needed. Refills: 0 multivitamin Tab Commonly known as: THERAGRAN Take 1 tablet by mouth daily. 1 tablet Refills: 0 OCUVITE ORAL Take by mouth. Refills: 0 REFRESH TEARS OPHT Apply to eye 2 times daily. Refills: 0 VYTORIN 10-40 10-40 mg Tab ?nk?wn!?? Generic drug: ezetimibe-simvastatin Refills: 0 ziprasidone 20 mg Cap Commonly known as: GEODON Take 20 mg by mouth 2 times daily (with meals). 20 mg Refills: 0 ZyrTEC 10 mg Tab Take 10 mg by mouth daily. Generic drug: cetirizine 10 mg Refills: 0 * Notice: This list has 2 medication(s) that are the same as other medications prescribed for you. Read the directions carefully, and ask your doctor or other care provider to review them with you. Updated Allergies/ADRs: Allergies Allergen Reactions ??? Latex Itching ??? Hemorrhoid Cream [Tissue Resp Fact-Shark Mynor Oil] Other (See Comments) Bleeding ??? Kaopectate [Bismuth Subsalicylate] Other (See Comments) Rectal Bleeding Follow-up Recommendations for Providers: Follow up ABIs Instructions Given to Patient at Discharge: Patient Instructions Patient Instructions You were admitted on 08/15/2017 after having a left femoral endarterectomy and bilateral iliac artery stents placed to get more blood flow to your leg. All of this went very well. Dr. Montaño will want you to be seen in approximately one month with ABIs first. All of this will be ordered and sent to you in the mail. If for some reason you don't receive this within a week or so please call our office as your followup is very important. Continue to apply nystatin powder as needed. Apply on either side of the incision. Anticoagulation: on Aspirin/Statin/Plavix Call your doctor if: Any fever, any drainage, redness or separation of your incision, increased pain or change in temperature of your leg Activity level: up as tolerated but watch for swelling of your leg. Manage this with leg elevation,toes higher than your nose and also can use acewrapping from your foot to below knee, tape in place, rewrap as necessary. Diet: resume your previous regular diet Driving: none right now with pain medication use Shower/Bath: showering daily with dressing removed, pat dry Wound Care: Daily dry gauze and tape to left groin incision. You were started on two new medications, Aspirin and Plavix (with a daily Aspirin as well.) We [id number] prescriptions to [facility] so that you could start taking these right away. We also sent 90-day prescriptions with refills to [facility] as you will be taking these indefinitely. For any problems or questions please call [phone] TERESA Sousa, plastics factory worker Nurse Clinician For issues on weeknights after 5pm and weekends please call [phone] and ask for the Vascular Fellow brand protection manager. General Instructions None Future Appointments and Orders Future Appointments Provider Department Dept Phone 09/15/2017 10:30 AM Ana Oconnor [place] [facility] [phone] 09/15/2017 11:15 AM Jake Montaño MD Vascular Surgery at [facility] [phone] Future Orders Complete By Expires MARIYA, legs, multiple levels [VAS8 Custom] 09/16/2017 (Approximate) 08/17/2018 Process Instructions: There is no in-house vascular analyst microbiology lab available on weeknights (5pm-8am), weekends, or holidays. IF THIS IS A REQUEST FOR AN EMERGENT STUDY DURING THOSE HOURS, please have the senior provider responsible for the patient page the Vascular Surgery Fellow/Senior Resident brand protection manager to discuss options. Scheduling Instructions: Questions: Indication for study/signs & symptoms: s/p left fem endart with B iliac stents Question to be answered: bloodflow to feet Which DH location will this be performed?: [facility] Referral to Home Health - at DISCHARGE [[id number] CPT(R)] As directed Process Instructions: Scheduling Instructions: Comments: DOCUMENTATION FOR VNA SERVICES (INCLUDING THOSE PATIENTS WITH MEDICARE COVERAGE REQUIRING HOME VNA SERVICES AND/OR HOSPICE SERVICES) PATIENT'S LOCATION: [address] [address] (home) Cell: Telephone Information: Certified Dietary Manager's Name: Self In discussion with the attending physician, it is certified that this patient is under their care and that they, or a Nurse Practitioner,Clinical Nurse specialist or Physician Pressure Sealer And Tester who is working directly with them, had a face to face encounter that meets the physician face to face encounter requirements with this patient on 08/16/17. The encounter with the patient was in whole, or in part, for the following medical condition, whichis the primary reason for home health care services: s/p left femoral endarterectomy with B iliac stenting. In discussion with the provider, it is certified that, based on their findings, the following services are medically necessary for home health services. To provide the following care/treatments with the clinical findings supporting the need for services as follows: HOME CARE ORDERS: RN ORDERS:Assess left groin incision and monitor for s/sx of infection. Pt can shower daily with dressing removed, pat dry. Daily dry gauze/tape dressing or more often PRN for saturation. Vital signs, cardiopulmonary status, nutrition, hydration, elimination, meds effectiveness and management; reinforce education re health issues HOME HEALTH CARE AGENCY: [facility]. PHONE: [phone] FAX: [phone] Start of care: 24-48 hours after discharge FOR MEDICARE ONLY: (please delete this section if not Medicare) In discussion with the attending physician, it is certified that the clinical findings support thatthis patient is homebound because absences from home require considerable and taxing effort due to:Restricted mobility due to LE strength and motion due to recent procedure Please note that any additional orders needs or changes will need to be obtained from this patient's PCP: Demetra Goff APRN [address] / [place] [address] All VNA agencies which cover the area of patient's residence have been reviewed, either verbally danae writing, and patient/family have chosen the home health care agency noted Questions: Agency name and contact information: [facility] Patient location post discharge: Home What services are requested: Registered Nurse Start date: Responsible MD post discharge contact info: PCP Discharge References/Attachments: Discharge References/Attachments None Electronically Signed By: PRERNA PICKARD MD 08/17/2017 documented in this encounter Discharge Instructions * Patient Instructions* Prerna Pickard MD - 08/15/2017 8:06 AM EDT Patient Instructions You were admitted on 08/15/2017 after having a left femoral endarterectomy and bilateral iliac artery stents placed to get more blood flow to your leg. All of this went very well. Dr. Montaño will want you to be seen in approximately one month with ABIs first. All of this will be ordered and sent to you in the mail. If for some reason you don't receive this within a week or so please call our office as your followup is very important. Continue to apply nystatin powder as needed. Apply on either side of the incision. Anticoagulation: on Aspirin/Statin/Plavix Call your doctor if: Any fever, any drainage, redness or separation of your incision, increased pain or change in temperature of your leg Activity level: up as tolerated but watch for swelling of your leg. Manage this with leg elevation,toes higher than your nose and also can use acewrapping from your foot to below knee, tape in place, rewrap as necessary. Diet: resume your previous regular diet Driving: none right now with pain medication use Shower/Bath: showering daily with dressing removed, pat dry Wound Care: Daily dry gauze and tape to left groin incision. You were started on two new medications, Aspirin and Plavix (with a daily Aspirin as well.) We [id number] prescriptions to [facility] so that you could start taking these right away. We also sent 90-day prescriptions with refills to [facility] as you will be taking these indefinitely. For any problems or questions please call [phone] TERESA Sousa, plastics factory worker Nurse Clinician For issues on weeknights after 5pm and weekends please call [phone] and ask for the Vascular Fellow brand protection manager. documented in this encounter Medications at Time [...] 30 days. 90 tablet 3 08/16/2017 09/15/2017 KRILL OIL ORAL Take 1,000 mg by [...] Indications: Hypothyroidism 10/11/2022 fluticasone (FLONASE) 50 mcg/actuation [place], SuspensionIndications :Seasonal allergic rhinitis 2 sprays by [...] 10/12/2010 05/21/2019 documented as of this encounter Progress Notes * Hanny Seth RN - 08/17/2017 10:18 AM EDT Assessed Mrs Deleon this AM prior to meds. She was dressed and stating she was ready to go home, denies pain, discomfort. VSS, director of student aid and instructor admin meds and discharge paperwork, prior to discharge Mrs Deleon stated to me she understood her discharge, had all of her belongings and her daughter was here to bring her home, safety was maintained * Neelam Hernández - 08/17/2017 10:18 AM EDT OUTCOME EVALUATION NOTE: OUTCOME SUMMARY: Mrs. Deleon was discharged this morning. Bilateral IVs removed, given morning medication, VSS. All paperwork was given, questions and concerns addressed. Questioned where the paper prescription forher Oxycodone, team paged and responded that it was electronically sent to pt.'s pharmacy. Patient was made aware of this and stated understanding. Ms. Deleon had all of her belongings with her andwas [place], where her daughter was waiting. AVS faxed to home health agency PLAN MOVING FORWARD: Patient discharged. INDIVIDUALIZED FALL PREVENTION INTERVENTIONS: Patient-specific fall risk factors per assessment: [current deficits]: Pain, recent surgery Assistance [level of assistance required for transfers and ambulation]: Patient was independent. Supervision [direct monitoring required during toileting and ADLs]: Patient was independent. Surveillance [continuous indirect monitoring]: Masimo, hourly rounded, room close to nurses station, call ulloa within reach Patient-specific fall prevention interventions for sensory deficits provided, if applicable: n/a CPG GOAL OUTCOME EVALUATION: * Chayito Vincent - 08/17/2017 7:00 AM EDT Vascular Surgery Progress Note ID: 66 y.o. female 2 Day Post-Op s/p 1. Left common femoral endarterectomy and patch angioplasty 2. Selective catheterization of the aorta 3. Aortogram 4. Bilateral common iliac stents (Xpress stent 8mm x 40mm bilaterally) 24hr events: No complaints, pain controlled Small hematoma on L groin site, stable Newman removed, voiding No erythema on left groin incision O: Last value Range last 24 hrs Temperature Temp: 37.8 ??C (100 ??F) Temp: [36.5 ??C (97.7 ??F)-37.8 ??C (100 ??F)] Heart Rate Heart Rate: 70 Heart Rate: -- Blood Pressure BP: 125/57 BP: (125-158)/(57-77) Respiratory Rate Resp: 16 Resp: [16-20] SpO2 SpO2: 93 % SpO2: [93 %-98 %] I/Os: Intake/Output Summary (Last 24 hours) at 08/17/17 0700 Last data filed at 08/17/17 0338 Gross per 24 hour Intake 1660 ml Output 4050 ml Net -2390 ml I/O last 1 completed shift: In: 1540 [P.O.:1540] Out: 2650 [Urine:2650] Physical Exam: Gen: NAD, AAO CV: rrr, no mrg Pulm: normal respirations, no use of accessory muscles, ctab Abd: soft, nontender Groin: dressings c/d/i b/l, small eccymosis on L, stable Ext: WWP, no LE edema, palpable DPs b/l, PTs easily doppled b/l Neuro: no focal deficits Labs: Recent Labs 08/17/17 0441 08/16/17 0527 WBC 11.0* 10.2* HGB 10.8* 11.7 HCT 31.7* 35.1* PLATELET 211 207 Recent Labs 08/17/17 0441 08/16/17 0527 NA 141 142 K 4.6 4.8 CL 103 105 CO2 24 26 BUN 10 10 CREATININE 0.85 0.92 Recent Labs 08/17/17 0441 08/16/17 0527 CALCIUM 8.9 8.8 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 Doing well, plan for discharge today with 1 month follow-up Neuro: Tylenol, Oxycodone for pain control Home Geodon. CV: stable, continue to monitor, ASA, PLavix Pulm: stable, encourage IS GI: Regular diet, NBO : Voiding spontaneously FEN: HLIV fluids ID: resolved erythema at groin Heme: Daily labs Proph: SQH, nexium, SCDs Dispo: Likely home today Chayito Vincent MD * Neha Schmitt RN - 08/16/2017 11:10 AM EDT The patient/door to door sales representative has been provided a list of Home Health Agencies/DME vendors which servetheir preferred geographic area. A letter describing our affiliations was reviewed with them and they were educated about their right to choose where referrals are placed. Patient requests referral to [facility] (RN visit) PHONE: [phone] FAX: [phone] Expected date of discharge: 08/16/17. Referral routed to the Manager Leasing for matching with agency/vendor and to provide any required information. ALEXEI Schmitt, MS, BSN, RN, Pager [phone] Office of Care Management * Chayito Vincent - 08/16/2017 7:45 AM EDT Vascular Surgery Progress Note ID: 66 y.o. female 1 Day Post-Op s/p 1. Left common femoral endarterectomy and patch angioplasty 2. Selective catheterization of the aorta 3. Aortogram 4. Bilateral common iliac stents (Xpress stent 8mm x 40mm bilaterally) 24hr events: No complaints, pain controlled Small hematoma on L groin site, stable Ambulated x1 O: Last value Range last 24 hrs Temperature Temp: 36.5 ??C (97.7 ??F) Temp: [36.3 ??C (97.3 ??F)-36.8 ??C (98.2 ??F)] Heart Rate Heart Rate: 70 Heart Rate: [70-84] Blood Pressure BP: 152/80 BP: (95-170)/(33-92) Respiratory Rate Resp: 16 Resp: [10-23] SpO2 SpO2: 97 % SpO2: [87 %-99 %] I/Os: Intake/Output Summary (Last 24 hours) at 08/16/17 0745 Last data filed at 08/16/17 0701 Gross per 24 hour Intake 2990 ml Output 1615 ml Net 1375 ml I/O last 1 completed shift: In: - Out: 300 [Urine:300] Physical Exam: Gen: NAD, AAO CV: rrr, no mrg Pulm: normal respirations, no use of accessory muscles, ctab Abd: soft, nontender Groin: dressings c/d/i b/l, small eccymosis and mild erythema, but soft, appropriately tender L>R Ext: WWP, no LE edema, palpable DPs b/l, PTs easily doppled b/l Neuro: no focal deficits Labs: Recent Labs 08/16/17526 WBC 10.2* HGB 11.7 HCT 35.1* PLATELET 207 Recent Labs 08/16/17526 NA 142 K 4.8 CL 105 CO2 26 BUN 10 CREATININE 0.92 Recent Labs 08/16/17526 CALCIUM 8.8 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 Pain controlled, ambulating well, concern for erythema at groin site, will keep for observation x24hr with antibiotics and anti-fungal agents. Neuro: Tylenol, Oxycodone for pain control Home Geodon. CV: stable, continue to monitor, ASA, PLavix Pulm: stable, encourage IS GI: Regular diet, NBO : Remove newman catheter FEN: HLIV fluids ID: Cefazolin x 24 hr for incisional erythema, PO Fluconazole given previous groin fungal infection. Heme: Daily labs Proph: SQH, nexium, SCDs Dispo: Floor status Chayito Vincent MD * Rea Cole MD - 08/15/2017 7:54 PM EDT POST-OPERATIVE ASSESSMENT Patient Name: Lindsey Deleon Patient Age: 66 y.o. Attending Physician: Jake Montaño MD Lindsey Deleon is a 66 y.o. female s/p below procedures Procedure(s): REVSC OPN\PRQ ILIAC ART W\STNT PLMT & ANGIOP SAME VSL (WRVU 10) @ENDARTERECTOMY, ILIOFEMORAL W OR W/O PATCH GRAFT (WRVU 19.86) AORTOGRAPHY, ABD. + AYAAN. ILIOFEMORAL LE BY SERIALOGRAPHY S & I (VU 1.79) CATHETER PLACEMENT, SELECTIVE FIRST ORDER IN ARTERIAL SYSTEM, EACH FIRST ORDER ABDOMINAL, PELVIC, OR LOWER EXTREMITY ARTERY BRANCH,WITHIN A VASCULAR FAMILY (VU 4.9) Subjective: patient resting comfortably, on CPAP, awakened easily. no complaints, denies nausea, vomiting, chest pain; pain well-controlled O: Last value Range last 24hrs Temperature Temp: 36.6 ??C (97.9 ??F) Temp: [36.3 ??C (97.3 ??F)-36.8 ??C (98.2 ??F)] Heart Rate Heart Rate: 70 Heart Rate: [69-84] Blood Pressure BP: 128/68 BP: (118-170)/(33-92) Respiratory Rate Resp: 15 Resp: [10-23] SpO2 SpO2: 96 % SpO2: [87 %-99 %] UOP= 50cc /hr, Newman in place Physical Exam: Gen: NAD, AAO CV: rrr, no mrg Pulm: normal respirations, no use of accessory muscles, ctab Abd: soft, nontender Groin: dressings c/d/i b/l, small eccymosis, but soft, appropriately tender L>R Ext: WWP, no LE edema, palpable DPs b/l, PTs easily doppled b/l Neuro: no focal deficits No results for input(s): WBC, HGB, HCT, PLATELET, PT, INR, PTT in the last 72 hours. No results for input(s): NA, K, CL, CO2, BUN, CREATININE, GLUCOSE, CALCIUM, MAGNESIUM, PHOS in the last 72 hours. ASSESSMENT: Lindsey Deleon is a 66 y.o. female s/p above procedures, currently in stable condition and recovering well following surgery. PLAN: - Appropriate for the floor - Pain well controlled - Hemodynamically stable, UOP adequate adequate - Continue post-op plan * Alethea Akins RN - 08/15/2017 5:43 PM EDT Patient was brought over from the PACU this afternoon. She arrived at 1700. Patients assessment is in the Doc flow sheets. She was oriented to the room and was shown how to use her call light. Patient was assisted with the setup of her dinner. Call light within reach and will continue to monitor. * Samantha Jacobo RN - 08/15/2017 11:54 AM EDT 1137 pt arrived to PACU, attached to monitors, alarms on, settings appropriate for pt. Pt hypotensive according to a-line, anesthesia administered priyank. 1510, anesthesia José Luis johnson MD, for pt blood pressure of 174/73 (97), plan is to treat if pt systolic goes greater than 180mmHg. 1600 pt reports numbness in right fingers and left groin incision. Vascular international coordinator Silvano johnson MD. 1635 Vascular at bedside, feeling of numbness resolved. documented in this encounter H&P Notes * Prerna Pickard MD - 08/15/2017 6:52 AM EDT Vascular Surgery History and Physical HPI: 66F w HTN HLD obesity (BMI 35) who presents with short distance claudication bilatreally worse on left than right after walking ~5 min. No prior AK or stroke. Wears CPAP at night for CHEMA. Maintained on daily ASA statin. Review of Systems: General: Denies fevers, chills, night sweats Neuro: Denies lightheadedness, amaurosis, dysarthria, transient weakness or new headaches HEENT: Denies changes in vision, hearing, smell or difficulty swallowing Pulm: +SOB w exertion Card: Denies chest discomfort, palpitations, orthopnea, dyspnea with exersion or claudication GI: Denies nausea, vomiting, constipation, diarrhea, melana or BRBPR : Denies urinary urgency, frequency, dysuria, hematuria Musc: Denies joint pains or stiffness, denies extremity swelling Endo: Denies heat or cold in tolerance Psych: Denies mood changes or feelings of depression or anxiety PMH HTN HLD Asthma COPD CHEMA GERD PAD Obesity BMI 35 PSH Cholecystectomy Hiatal hernia repair Tubal ligation Functional Status/Social Hx: Drives Lives alone Quit smoking 2003 No alcohol Daughter lives nearby Family Hx: Negative for Thrombosis, Bleeding Disorders Medications: No current facility-administered medications on file prior to encounter. Current Outpatient Prescriptions on File Prior to Encounter Medication Sig Dispense Refill ??? cetirizine (ZYRTEC) 10 mg Tablet Take 10 mg by mouth daily. ??? KRILL OIL ORAL Take 1,000 mg by mouth daily. ??? hydroCHLOROthiazide (MICROZIDE) 12.5 mg Capsule Take 12.5 mg by mouth daily. ??? lisinopril (PRINIVIL;ZESTRIL) 10 mg Tablet Take 10 mg by mouth daily. ??? melatonin 5 mg Tablet Take by mouth nightly. ??? levothyroxine (SYNTHROID) 50 mcg Tablet Take 50 mcg by mouth daily. Indications: Hypothyroidism ??? multivitamin (THERAGRAN) tablet Take 1 tablet by mouth daily. ??? POLYETHYLENE GLYCOL 3350 (MIRALAX ORAL) Take by mouth as needed. ??? LACTOBACILLUS RHAMNOSUS GG (CULTURELLE ORAL) Take by mouth daily. ??? citalopram (CELEXA) 20 mg tablet Take 2 tablets by mouth daily. 60 tablet ??? ziprasidone (GEODON) 20 mg capsule Take 20 mg by mouth 2 times daily (with meals). ??? aspirin 325 mg tablet Take 325 mg by mouth daily. ? ? BETA-CAROTENE,A, W-C & E/MIN (OCUVITE ORAL) Take by mouth. ??? CARBOXYMETHYLCELLULOSE SODIUM (REFRESH TEARS OPHT) Apply to eye 2 times daily. ??? FOLIC ACID ORAL ??? ezetimibe-simvastatin (VYTORIN 10-40) 10-40 mg per tablet ??? ipratropium-albuterol (DUONEB) 0.5 mg-3 mg(2.5 mg base)/3 mL Solution for Nebulization Take 3 mLs by nebulization 2 times daily. ??? loperamide (IMODIUM A-D) 2 mg Capsule Take 2 mg by mouth nightly. ??? fluticasone (FLOVENT) 110 mcg/actuation HFA Aerosol Inhaler Inhale 1 puff into the lungs 2 times daily. ??? fluticasone (FLONASE) 50 mcg/actuation [place], Suspension 2 sprays by Each Nare route daily as needed for Rhinitis. 16 g 3 ??? acetaminophen (TYLENOL) 650 mg/20.3 mL oral liquid Take 20.3 mLs by mouth every 4 hours as needed. 350 mL 1 ??? albuterol (PROVENTIL HFA;VENTOLIN HFA) 90 mcg/Actuation inhaler Inhale 2 puffs into the lungs every 4 hours as needed. Use with spacer Indications: Chronic Obstructive Pulmonary Disease Allergies: Latex; Hemorrhoid cream [tissue resp fact-shark mynor oil]; and Kaopectate [bismuth subsalicylate] Physical Exam: Temp: [36.6 ??C (97.9 ??F)] Heart Rate: [69] Resp: [18] BP: (127)/(54) SpO2: [96 %] Heart Rate from SPO2: -- General: NAD, resting comfortably HEENT: PERRL, anicteric sclerae CVS: Regular rate, no murmurs rubs or gallops Pulm: Clear bilaterally Abd: soft, non tender, non distended Large pannus Ext: Groins clean no erythema Legs warm No ulcers Neuro: Grossly nonfocal, moving all extremities. Vascular Exam: weakly palpable femoral pulses, no palpable pedal pulses Labs: Lab Results Component Value Date CREATININE 1.01 07/18/2017 ABIs Right Pressure (mm Hg) MARIYA Waveform Brachial Artery 128 Common Femoral Artery Monophasic Pop Fossa Monophasic Dorsalis Pedis (Ankle) Artery 62 0.48 Monophasic Posterior Tibial (Ankle) Artery 82 0.64 Monophasic Left Pressure (mm Hg) MARIYA Waveform Brachial Artery 127 Common Femoral Artery Monophasic Pop Fossa Triphasic Dorsalis Pedis (Ankle) Artery 62 0.48 Wharton-Biphasic Posterior Tibial (Ankle) Artery 87 0.68 Wharton-Biphasic Stress test: no ischemia, EF 65% Imaging: CTA 1. Focal severe stenosis of LEFT common femoral artery. 2. Patent bilateral 3 vessel below the runoff to ankle. 3. Proximal severe stenosis of RIGHT common iliac artery. 4. Patent RIGHT common femoral artery. Assessment and Plan: 66F w HTN HLD COPD obesity BMI 35 with peripheral arterial disease and short distance claudication.No tissue loss on exam. ABIs 0.5/0.6 on right and 0.5/0.7 on left. CTA shows left RADIO INTERFERENCE TROUBLE SHOOTER stenosis and right TRE near occlusion. Plan for left iliofemoral endarterectomy and kissing iliac stents. documented in this encounter Miscellaneous Notes * Plan of Care - Gail Casas RN - 08/17/2017 3:45 AM EDT Problem: Patient Care Overview Goal: Plan of Care Review Outcome: Ongoing (Interventions Implemented as Appropriate) 08/16/1753308/16/171999 Plan of Care Review Progress improving -- Coping/Psychosocial Plan Of Care Reviewed With -- patient OUTCOME EVALUATION NOTE: OUTCOME SUMMARY: Kelly had a quiet night, resting between care. Pain managed with current regimen. Neurovasc checks intact. Voiding adequately. No BM. Will continue to monitor. PLAN MOVING FORWARD: Discharge INDIVIDUALIZED FALL PREVENTION INTERVENTIONS: Patient-specific fall risk factors per assessment: [current deficits]: Pain, Generalized weakness Assistance [level of assistance required for transfers and ambulation]: Independent Supervision [direct monitoring required during toileting and ADLs]: Eyes on Surveillance [continuous indirect monitoring]: Purposeful rounding, Call ulloa within reach Patient-specific fall prevention interventions for sensory deficits provided, if applicable: No CPG GOAL OUTCOME EVALUATION: Goal: Individualization & Mutuality Outcome: Ongoing (Interventions Implemented as Appropriate) 08/15/17 1800 Mutuality/Individual Preferences What Anxieties, Fears or Concerns Do You Have About Your Health or Care? none What Questions Do You Have About Your Health or Care? none What Information Would Help Us Give You More Personalized Care? Please keep me informed of my care Goal: Fall Prevention-Safe Patient Handling Outcome: Ongoing (Interventions Implemented as Appropriate) 08/16/1753308/16/171999 Daily Care Interventions Self-Care Promotion independence encouraged;BADL personal objects within reach;BADL personal routines maintained;meal setup provided;safe use of adaptive equipment encouraged -- Activity and Safety Assistive Device Front wheel walker -- Musculoskeletal Interventions Muscle Strengthening activity/mobility promoted;mobility in bed promoted -- Elmore Fall Risk History of Falling -- 0 Secondary Diagnosis -- 15 Ambulatory Aids -- 0 Intravenous Therapy/Heparin/Saline Lock -- 20 Gait/Transferring -- 0 Mental Status -- 0 Score -- 35 OTHER Elmore Fall Risk -- Med Restraint Interventions Safety Promotion/Fall Prevention -- fall prevention program maintained;muscle strengthening facilitated;nonskid shoes/slippers when out of bed;safety round/check completed Positioning Body Position -- independent Goal: Infection Control Outcome: Ongoing (Interventions Implemented as Appropriate) 08/16/171999 Safety Interventions Isolation Precautions standard precautions maintained Infection Prevention environmental surveillance performed;rest/sleep promoted Coping Strategies Supportive Measures active listening utilized;positive reinforcement provided;relaxation techniquespromoted;self-care encouraged;verbalization of feelings encouraged Goal: Discharge Needs Assessment Outcome: Ongoing (Interventions Implemented as Appropriate) 08/16/17 0534 08/16/17 1200 08/16/17 1720 Discharge Needs Assessment Concerns To Be Addressed no discharge needs identified -- -- Readmission Within The Last 30 Days no previous admission in last 30 days -- -- Equipment Needed After Discharge none -- -- Discharge Disposition -- -- still a patient Activity/Self Care Review of Systems Equipment Currently Used at Home (cpap) -- -- Current Health Anticipated Changes Related to Illness none -- -- Living Environment Transportation Available -- car;family or friend will provide -- Goal: Interdisciplinary Rounds/Family Conf Outcome: Ongoing (Interventions Implemented as Appropriate) 08/17/17 0343 Interdisciplinary Rounds/Family Conf Participants nursing;patient * Plan of Care - Alethea Akins RN - 08/16/2017 5:29 PM EDT Problem: Patient Care Overview Goal: Plan of Care Review Outcome: Ongoing (Interventions Implemented as Appropriate) 08/16/17 0534 08/16/17 0957 Plan of Care Review Progress improving -- Coping/Psychosocial Plan Of Care Reviewed With -- patient OUTCOME EVALUATION NOTE: OUTCOME SUMMARY: Patient has had a good day. Daughter came into visit this morning. Patient complained of burning onthe left side of her groin when she is sitting up on the side of the bed. Patient was given an ABD pad so that there was less pressure on the incision. Incision continues to look red around the edgesat this time. PLAN MOVING FORWARD: Monitor tempeture, redness around the left groin site, and encourage ambulation. INDIVIDUALIZED FALL PREVENTION INTERVENTIONS: Patient-specific fall risk factors per assessment: [current deficits]: Patient is at moderate risk for falls related to recent surgery Assistance [level of assistance required for transfers and ambulation]: Indapendent Supervision [direct monitoring required during toileting and ADLs]: Indapendent Surveillance [continuous indirect monitoring]: Masimo and purposeful rounding Patient-specific fall prevention interventions for sensory deficits provided, if applicable: [X] No CPG GOAL OUTCOME EVALUATION: Goal: Individualization & Mutuality Outcome: Ongoing (Interventions Implemented as Appropriate) 08/15/17 1800 Mutuality/Individual Preferences What Anxieties, Fears or Concerns Do You Have About Your Health or Care? none What Questions Do You Have About Your Health or Care? none What Information Would Help Us Give You More Personalized Care? Please keep me informed of my care Goal: Fall Prevention-Safe Patient Handling Outcome: Ongoing (Interventions Implemented as Appropriate) 08/16/1734 08/16/17 0957 Daily Care Interventions Self-Care Promotion independence encouraged;BADL personal objects within reach;BADL personal routines maintained;meal setup provided;safe use of adaptive equipment encouraged -- Activity and Safety Assistive Device Front wheel walker -- Musculoskeletal Interventions Muscle Strengthening activity/mobility promoted;mobility in bed promoted -- Elmore Fall Risk History of Falling -- 0 Secondary Diagnosis -- 15 Ambulatory Aids -- 0 Intravenous Therapy/Heparin/Saline Lock -- 20 Gait/Transferring -- 0 Mental Status -- 0 Score -- 35 OTHER Elmore Fall Risk -- Med Restraint Interventions Safety Promotion/Fall Prevention -- activity supervised;fall prevention program maintained;muscle strengthening facilitated;nonskid shoes/slippers when out of bed;safety round/check completed Positioning Body Position -- independent Goal: Infection Control Outcome: Ongoing (Interventions Implemented as Appropriate) 08/16/17 0957 Safety Interventions Isolation Precautions standard precautions maintained Infection Prevention environmental surveillance performed Coping Strategies Supportive Measures active listening utilized;self-care encouraged;problem solving facilitated Goal: Discharge Needs Assessment Outcome: Ongoing (Interventions Implemented as Appropriate) 08/16/17 0534 08/16/17 1200 08/16/17 1720 Discharge Needs Assessment Concerns To Be Addressed no discharge needs identified -- -- Readmission Within The Last 30 Days no previous admission in last 30 days -- -- Equipment Needed After Discharge none -- -- Discharge Disposition -- -- still a patient Activity/Self Care Review of Systems Equipment Currently Used at Home (cpap) -- -- Current Health Anticipated Changes Related to Illness none -- -- Living Environment Transportation Available -- car;family or friend will provide -- Goal: Interdisciplinary Rounds/Family Conf Outcome: Ongoing (Interventions Implemented as Appropriate) 08/16/17 1720 Interdisciplinary Rounds/Family Conf Participants nursing;patient;physician * Initial Assessments - Neha Schmitt RN - 08/16/2017 10:52 AM EDT Office of Care Management Initial Assessment Neha Schmitt RN reviewed record and discussed patient with Care Team. Source of Information: eDH and patient Introduced self/reviewed role; services accepted. Reason for Hospitalization: PVD, left leg/stomach stent/patch Past Medical History: Diagnosis Date ??? Asthma 02/06/2017 ??? COPD (chronic obstructive pulmonary disease) Emphysema, scheduled and prn inhalers, has not used prn inhaler in months. Able to climb one flightof starirs without SOB. No home O2. ??? GERD (gastroesophageal reflux disease) food regurgitation, burning, not well controlled ??? 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, drives, no MAE, ranch home [address] [place] [phone] Social & Family Supports/Community Resources: Sammi Extended Emergency Contact Information Primary Emergency Contact: Sammi Steel Address: [address] [place] [address] [facility] Relation: Child Secondary Emergency Contact: Bam Trevizo, PERRY [facility] Relation: Child Behavioral Health History: Hx depression and anxiety, on meds Substance Use/Abuse: Denies smoking, alcohol, or illicit drug use Other Pertinent/Service Specific Information: None Health/Prescription Coverage: Payor: JOSÉ MIGUEL SUAREZ / Plan: JOSÉ MIGUEL POINT / Product Type: *No Product type* / Secondary Insurance: None Prescription Coverage: see above Preferred Pharmacy: [facility] [place] [address] [facility] [address] [facility] - [address] [facility] [address] [facility] [address] [id number] - [place], [place] - [address] [place] [id number] Other: None Primary Care Provider: Demetra Goff APRN [phone] Patient/Caregiver Goals of Treatment: Safe dc plan Potential Needs for Transition of Care: Rehab/SNF: NA Home Health: NA DME: NA Dialysis: NA Community Resources: pt is aware Transportation: Daughter Other: Has CPAP, nebulizer, walker, cane, shower seat, grab bars Anticipated Barriers to Discharge/Special Considerations: None Plan: Patient is to discharge when medically ready. Will need VNA RN for incision assessment/infection risk. See VNA choices note. A member of the Care Management team will continue to monitor progress, follow for continuity of care and assist with transition of care planning. ALEXEI Schmitt MS, BSN, RN, Pager [phone] Office of Care Management * Plan of Care - Teri Carmona RN - 08/16/2017 5:39 AM EDT Problem: Patient Care Overview Goal: Plan of Care Review Outcome: Ongoing (Interventions Implemented as Appropriate) 08/15/17 2131 08/16/17 0548 Plan of Care Review Progress -- improving Coping/Psychosocial Plan Of Care Reviewed With patient -- OUTCOME EVALUATION NOTE: OUTCOME SUMMARY: Ms. Deleno did great overnight; no complaints of pain, ambulated to the bathroom and attempted tohave a BM, unsuccessful but is passing flatus; bilateral groin sites clean dry intact, soft, no noted hematoma; pedal pulses dopplerable; scd's utilized; lungs clear and dim, pt using cpap with sleep; will continue to monitor PLAN MOVING FORWARD: Pain control; incision monitoring; pulse and neuro checks; discharge? INDIVIDUALIZED FALL PREVENTION INTERVENTIONS: Patient-specific fall risk factors per assessment: [current deficits]: Weakness Assistance [level of assistance required for transfers and ambulation]: Standby Supervision [direct monitoring required during toileting and ADLs]: Eyes on Surveillance [continuous indirect monitoring]: Masimo; purposeful hourly rounding Patient-specific fall prevention interventions for sensory deficits provided, if applicable: [X] Yes room organization maintained; lighting adjusted for task safety CPG GOAL OUTCOME EVALUATION: Goal: Individualization & Mutuality Outcome: Ongoing (Interventions Implemented as Appropriate) 08/15/17 1800 Mutuality/Individual Preferences What Anxieties, Fears or Concerns Do You Have About Your Health or Care? none What Questions Do You Have About Your Health or Care? none What Information Would Help Us Give You More Personalized Care? Please keep me informed of my care Goal: Fall Prevention-Safe Patient Handling Outcome: Ongoing (Interventions Implemented as Appropriate) 08/15/17213008/16/17 0534 Daily Care Interventions Self-Care Promotion -- independence encouraged;BADL personal objects within reach;BADL personal routines maintained;meal setup provided;safe use of adaptive equipment encouraged Activity and Safety Assistive Device -- Front wheel walker Musculoskeletal Interventions Muscle Strengthening -- activity/mobility promoted;mobility in bed promoted Elmore Fall Risk History of Falling 0 -- Secondary Diagnosis 15 -- Ambulatory Aids 0 -- Intravenous Therapy/Heparin/Saline Lock 20 -- Gait/Transferring 0 -- Mental Status 0 -- Score 35 -- OTHER Elmore Fall Risk Med -- Restraint Interventions Safety Promotion/Fall Prevention activity supervised;elopement precautions initiated;fall prevention program maintained;muscle strengthening facilitated;nonskid shoes/slippers when out of bed -- Positioning Body Position independent -- Goal: Infection Control Outcome: Ongoing (Interventions Implemented as Appropriate) 08/15/172130 Safety Interventions Isolation Precautions standard precautions maintained Infection Prevention environmental surveillance performed;rest/sleep promoted Coping Strategies Supportive Measures active listening utilized;decision-making supported;positive reinforcement provided;relaxation techniques promoted;self-care encouraged;self-reflection promoted;self-responsibility promoted;verbalization of feelings encouraged Goal: Discharge Needs Assessment 08/16/17 0534 Discharge Needs Assessment Concerns To Be Addressed no discharge needs identified Readmission Within The Last 30 Days no previous admission in last 30 days Equipment Needed After Discharge none Activity/Self Care Review of Systems Equipment Currently Used at Home (cpap) Current Health Anticipated Changes Related to Illness none * Op Note - Prerna Pickard MD - 08/15/2017 11:52 AM EDT [facility] [place] Patient Name: Lindsey Deleon : [id number] MR#: [id number] Case Date: 08/15/2017 Surgeon: Surgeon(s) and Role: * Jake Montaño MD - Primary * Prerna Pickard MD - Resident-Surgeon Sr Preoperative diagnosis: Bilateral claudication, peripheral arterial disease Obesity BMI 35 Hypertension Hyperlipidemia GERD ?? Postoperative diagnosis: Bilateral claudication, peripheral arterial disease sp left femoral endarterectomy and bilateral common iliac stents Obesity BMI 35 Hypertension Hyperlipidemia GERD ?? Procedure components: 1. Left common femoral endarterectomy and patch angioplasty 2. Selective catheterization of the aorta 3. Aortogram 4. Bilateral common iliac stents (Xpress stent 8mm x 40mm bilaterally) Procedure(s) (LRB): REVSC OPN\PRQ ILIAC ART W\STNT PLMT & ANGIOP SAME VSL (WRVU 10) (Bilateral) @ENDARTERECTOMY, ILIOFEMORAL W OR W/O PATCH GRAFT (WRVU 19.86) (Left) AORTOGRAPHY, ABD. + AYAAN. ILIOFEMORAL LE BY SERIALOGRAPHY S & I (WRVU 1.79) (N/A) CATHETER PLACEMENT, SELECTIVE FIRST ORDER IN ARTERIAL SYSTEM, EACH FIRST ORDER ABDOMINAL, PELVIC, OR LOWER EXTREMITY ARTERY BRANCH,WITHIN A VASCULAR FAMILY (WRVU 4.9) Implant Name Type Inv. Item Serial No. Prospecting Driller Helper Lot No. LRB No. Used Action PATCH,BIOL,XENOSURE,.8X8CM ([id number]) - [id number] IMPLANTS PATCH,BIOL,XENOSURE,.8X8CM ([id number]) [employer] - [id number] Left 1 Implanted STENT,XPRESS,BLRY,8X40MM,75CM ([id number]) - [id number] IMPLANTS STENT,XPRESS,BLRY,8X40MM,75CM ([id number]) [employer] - [id number] Left 1 Implanted STENT,XPRESS,BLRY,8X40MM,135 ([id number]) - [id number] IMPLANTS STENT,XPRESS,BLRY,8X40MM,135 ([id number])[employer] - [id number] Right 1 Implanted CLOSU,VSL,PRCL,PRGLD,SMC,6FR ([id number]) - [id number] IMPLANTS CLOSU,VSL,PRCL,PRGLD,SMC,6FR ([id number])[employer] - [id number] Right 1 Implanted Findings: Bulky calcific plaque in left common femoral--> endarterectomy performed with good results, bovine patch angioplasrt used to close the arteriotomy Aortogram revealed bilateral stenoses in the proximal common iliac arteries with severe stenosis onthe right Bilateral Xpress stents 8mm x 40mm deployed in kissing fashion with good results, ballooned to 10 GLO Completion revealed widely patent common, external, and internal iliacs bilaterally DP and PT signals at case end Right femoral percutaneous access closed with perclose device (6F access) Anesthesia: General Estimated Blood Loss: 300cc IVF 3L UOP 1100cc Heparin 10,000U Promatine 30 mg Fluoro time: 3.5 min Contrast: 30 mL Specimens removed during surgery: None Drains: none Surgical Closure: Primary Closure - closure of ALL tissue levels during the original surgery regardless of wires, wickes, drains, or other devices extruding through the incision Disposition: awakened from anesthesia, extubated and taken to the recovery room in a stable condition, having suffered no apparent untoward event. Condition: doing well without problems (Please see the Surgical Encounter Summary for any Implant and Specimen details pertinent to this patient.) HPI/Surgical Indications: 66F w HTN HLD COPD obesity BMI 35 with peripheral arterial disease and short distance claudication.No tissue loss on exam. ABIs 0.5/0.6 on right and 0.5/0.7 on left. CTA shows left RADIO INTERFERENCE TROUBLE SHOOTER stenosis and right TRE near occlusion. Plan for left iliofemoral endarterectomy and kissing iliac stents. Procedure Description: After informed consent was obtained the patient was brought back to the operating room and placed supine on the OR table. General anesthesia was induced and the patient was intubated with an ETT. Additional support lines (newman, arterial line, PIVs) were placed. Preoperative antibiotics were given (ancef). A timeout was performed. Attention was then turned to the patient's left groin which was prepped and draped in the standard fashion. A longitudinal incision was made overlying the femoral artery beginning at the level of the inguinal ligament. Electrocautery was used to dissect down throughthe subcutaneous tissues to the femoral sheath. The distal external iliac artery, circumflex arteries, common femoral artery, profunda artery and superficial femoral arteries were each circumferentially dissected and encircled with vessel loops. Systemic heparin was administered. The profunda and superficial femoral arteries were clamped. The distal external iliac artery was then clamped. An 11-blade scalpel and Pott's scissors were then used to create an arteriotomy along the anterior surface of the common femoral artery. The common femoral artery was endarterectomized. The profunda origin appeared widely patent and therefore endarterectomy was not extended into the profunda. Next, patch angioplasty was performed using bovine pericardial patch secured in a running fashion with 5-0 prolene. This was done circumferentially, leaving a slight opening on the lateral edge to flush edge of the patch. The patch was then flushed and closure completed. Next we obtained percutaneous access under US guidance at the right common femoral. We advanced a micropuncture wire and sheath, then exchanged for a 6F long sheath and stiff glidewire which was advanced into the aorta. Similarly we punctured the patch at the left common femoral, exchanged for a micropuncture sheath and wire, then exchanged for a stiff glidewire and long 6F sheath. Both stiff glidewires were advanced into the aorta. Angiography was taken through the sheath. An Xpress stent was loaded onto each wire and the stents were deployed at the aortic bifurcation in the common iliac arteries ballooning up to 10 GLO. We performed a completion angiogram and another angiogram in 30 degrees CATIE to inspect our femoral repair. Common external and internal iliacs were widely patent as ws the left common femoral superficial femoraland profunda. Next, the wire and sheath were removed from the left and the sheath puncture was closed with a 6-0 prolene figure of eight stitch. The wound in the left groin was then closed in multiple layers with interrupted 2-0 vicryl sutures. Deep dermal tissue was closed with 3-0 vicryl. Skin was closed with 4-0 vicryl and dermabond. Gauze and tegaderm were applied. The sheath was pulled from the right groin; a perclose was successfully deployed and the wire was removed. Manual pressure was held for 10 minutes. The patient was awoken, extubated and taken to PACU in stable condition. All counts were correct. Dr. Montaño was present and scrubbed for the entire procedure. Infection Bundle used? NA Associated attestation - Jake Montaño MD - 08/17/2017 3:46 PM EDT Attestation: Case Date: 08/15/2017 I was present and I participated during the entire procedure (does not need to include opening and closing). L iliofemoral endarterectomy, profundaplasty and Bilateral TRE stent placement (8x38mm BE) for short distance claudication. Jake Montaño MD 08/17/2017 * Brief Op Note - Prerna Pickard MD - 08/15/2017 11:47 AM EDT Brief Operative Note Patient Name: Lindsey Deleon : [id number] MR#: [id number] Case Date: 08/15/2017 Surgeon: Surgeon(s) and Role: * Jake Montaño MD - Primary * Prerna Pickard MD - Resident-Surgeon Sr Preoperative diagnosis: Bilateral claudication, peripheral arterial disease Obesity BMI 35 Hypertension Hyperlipidemia GERD Postoperative diagnosis: Bilateral claudication, peripheral arterial disease sp left femoral endarterectomy and bilateral common iliac stents Obesity BMI 35 Hypertension Hyperlipidemia GERD Procedure components: 1. Left common femoral endarterectomy and patch angioplasty 2. Selective catheterization of the aorta 3. Aortogram 4. Bilateral common iliac stents (Xpress stent 8mm x 40mm bilaterally) Procedure(s) (LRB): REVSC OPN\PRQ ILIAC ART W\STNT PLMT & ANGIOP SAME VSL (WRVU 10) (Bilateral) @ENDARTERECTOMY, ILIOFEMORAL W OR W/O PATCH GRAFT (WRVU 19.86) (Left) AORTOGRAPHY, ABD. + AYAAN. ILIOFEMORAL LE BY SERIALOGRAPHY S & I (WRVU 1.79) (N/A) CATHETER PLACEMENT, SELECTIVE FIRST ORDER IN ARTERIAL SYSTEM, EACH FIRST ORDER ABDOMINAL, PELVIC, OR LOWER EXTREMITY ARTERY BRANCH,WITHIN A VASCULAR FAMILY (WRVU 4.9) Anesthesia: General Findings: Bulky calcific plaque in left common femoral--> endarterectomy performed with good results, bovine patch angioplasrt used to close the arteriotomy Aortogram revealed bilateral stenoses in the proximal common iliac arteries with severe stenosis onthe right Bilateral Xpress stents 8mm x 40mm deployed in kissing fashion with good results, ballooned to 10 GLO Completion revealed widely patent common, external, and internal iliacs bilaterally DP and PT signals at case end Complications: none Estimated Blood Loss: 300cc Fluids: Intraprocedure Crystalloid Total None PRBCs: none (See Anesthesia Record/Report for Other Blood Products) Urine Output: (no blood products) Drains: none Disposition: awakened from anesthesia, extubated and taken to the recovery room in a stable condition, having suffered no apparent untoward event. Condition: doing well without problems (Please see the Surgical Encounter Summary for any Implant and Specimen details pertinent to this patient.) Infection Bundle used? N/A documented in this encounter Plan of Treatment Upcoming Encounters Date Type Department Care Team (Late st Contact Info) Description 02/06/2025 2:40 PM EDT Office Visit Cardiology at [address] [place] [id number] Rigoberto Diaz MD [facility] [place] [address] Scheduled Procedures Name Priority Associated Diagnoses Date/Ti me EGD, UPPER GI ENDOSCOPY (WRV U 2.09) Incontinence of feces, unspecified fecal incontinence type Dysphagia, unspecified type COLONOSCOPY, DIAGNOSTIC (WRV U 3.26) Incontinence of feces, unspecified fecal incontinence type Dysphagia, unspecified type documented as of this encounter Procedures Procedure Name Priority Date/Time Associated Diagnosis Comments LOSS CONTROL CONSULTANT SCAN 08/18/2017 12:00 AM EDT HEMOGRAM Routine 08/17/2017 4:41 AM EDT DIFFERENTIAL, AUTOMATED Routine 08/17/2017 4:41 AM EDT CBC (WITH DIFF) Routine 08/17/2017 4:41 AM EDT BASIC METABOLIC PANEL (NON-FASTING) Routine 08/17/2017 4:41 AM EDT HEMOGRAM Routine 08/16/2017 5:27 AM EDT DIFFERENTIAL, AUTOMATED Routine 08/16/2017 5:27 AM EDT CBC (WITH DIFF) Routine 08/16/2017 5:27 AM EDT BASIC METABOLIC PANEL (NON-FASTING) Routine 08/16/2017 5:27 AM EDT IR OR [facility] ANGIOGRAM IMAGE STORAGE ONLY Routine 08/15/2017 10:41 AM EDT BLOOD GAS 2 ARTERIAL Routine 08/15/2017 8:18 AM EDT CATHETER PLACEMENT, SELECTIVE FIRST ORDER IN ARTERIAL SYSTEM, EACH FIRST ORDER ABDOMINAL, PELVIC, OR LOWER EXTREMITY ARTERY BRANCH,WITHIN A VASCULAR FAMILY (WRVU 4.65) 08/15/2017 7:29 AM EDT Claudication in peripheral vascular disease AORTOGRAPHY, ABD. + AYAAN. ILIOFEMORAL LE BY SERIALOGRAPHY S & I (WRVU 2) 08/15/2017 7:29 AM EDT Claudication in peripheral vascular disease @ENDARTERECTOMY, ILIOFEMORAL W OR W/O PATCH GRAFT (WRVU 19.86) 08/15/2017 7:29 AM EDT Claudication in peripheral vascular disease REVSC OPN\PRQ ILIAC ART W\STNT PLMT & ANGIOP SAME VSL (WRVU 9.75) 08/15/2017 7:29 AM EDT Claudication in peripheral vascular disease IMPLANTABLE DEVICES SCAN 08/15/2017 12:00 AM EDT documented in this encounter Results * SCAN DOC: LOSS CONTROL CONSULTANT (08/18/2017 12:00 AM EDT) Anatomical Region Laterality Modality Other Narrative 08/18/2017 12:00 AM EDT Ordered by an unspecified provider. Scanning Provider MEDIA MGR SCAN EXT O RDR/RSLT * (ABNORMAL) Differential, Automated (08/17/2017 4:41 AM EDT) Neutrophils % 71.2 % [facility] Neutr Abs (ANC) 7.81(H) 1.70 - 6.10 x10(3)/[facility] Lymphocytes % 14.2 % [facility] Lymphocytes Abs 1.6 0.9 - 3.2 x10(3)/[facility] Monocytes % 12.4 % [facility] Monocyte Abs 1.4(H) 0.3 - 0.9 x10(3)/[facility] Eosinophils % 1.5 % [facility] Eosinophils Abs 0.2 0.0 - 0.4 x10(3)/[facility] Basophils % 0.3 % [facility] Basophils Abs 0.0 0.0 - 0.1 x10(3)/[facility] Immature Gran % 0.40 % [facility] Comment: Immature granulocytes(IG's)percentage and absolute count will include metamyelocytes, myelocytes, and promyelocytes. Blood smears from CBCs yielding IG's will be scanned manually for concordance. If this scan disagrees with the automated IG or if promyelocytes are noted, a manual differential will be performed. [place] Gran Abs 0.04 0.00 - 0.04 x10(3)/[facility] Blood specimen (specimen) 08/17/2017 4:41 AM EDT 08/17/2017 5:00 AM EDT Narrative Resulting Agency Comment Spec In Lab Jake Montaño MD HEMATOLOGY ORDERABLE S Performing Organization Address City/[facility]/ZIP Co de Phone Number [facility] [place] [place] [address] * (ABNORMAL) Hemogram (08/17/2017 4:41 AM EDT) WBC 11.0(H) 4.0 - 9.5 x10(3)/[facility] RBC 3.20(L) 4.00 - 5.21 x10(6)/[facility] Hemoglobin 10.8(L) 11.7 - 15.5 gm/dL [facility] Hematocrit 31.7(L) 35.7 - 45.8 % [facility] MCV 99.1(H) 82.6 - 94.[address] [facility] MCH 33.8(H) 27.1 - 32.[address] [facility] MCHC 34.1 31.7 - 35.0 gm/dL [facility] Platelets 211 145 - 357 x10(3)/[facility] RDWSD 46.1(H) 37.0 - 46.0 [facility] RDWCV 12.6 11.5 - 14.1 % [facility] MPV 9.8 7.6 - 12.9 [facility] nRBC % Auto 0.0 % [facility] nRBC Abs Auto 0.000 0.000 - 0.000 x10(3)/[facility] Blood specimen (specimen) 08/17/2017 4:41 AM EDT 08/17/2017 5:00 AM EDT Narrative Resulting Agency Comment Spec In Lab Jake Montaño MD HEMATOLOGY ORDERABLE S Performing Organization Address City/[facility]/ZIP Co de Phone Number [facility] [place] [address] * Basic Metabolic Panel (non-fasting) (08/17/2017 4:41 AM EDT) Glucose Lvl 133 65 - 199 mg/dL [facility] Comment:Diabetes: >=200 mg/d L plus symptoms BUN 10 8 - 18 mg/dL [facility] Creatinine 0.85 0.70 - 1.20 mg/dL [facility] Comment: Please note that the pediatric reference intervals supplied above were not validated at [facility]. Results from pediatric patients should be interpreted in conjunction to the patient's age, height and muscle mass. Sodium 141 135 - 145 mmol/L [facility] Potassium 4.6 3.5 - 5.0 mmol/L [facility] Comment: Please note: ??Patients with WBC >100,000 may have falsely elevated Potassium levels. ??For accurate Potassium quantification in these patients send serum separator tube (gold top) for subsequent determinations. ??Contact the Clinical Chemistry Laboratory if there are any questions. Chloride 103 98 - 107 mmol/L [facility] CO2 24 22 - 31 mmol/L [facility] Anion Gap 14 5 - 15 mmol/L [facility] Calcium 8.9 8.5 - 10.5 mg/dL [facility] Estimated GFR >60 >=60 [facility] Comment: This estimated GFR (eGFR) value was calculated using the MDRD equation which has been validated on patients between the ages of 18 and 70. The MDRD should not be used to assess kidney function in patients < 18 years of age or in patients with extremes of body mass, or in patients with acute kidney failure. This value should be multiplied by 1.2 for patients. For further information please copy and paste the following links into your internet browser. [email or web address]/DHnkdep [email or web address] Blood specimen (specimen) 08/17/2017 4:41 AM EDT 08/17/2017 5:00 AM EDT Narrative Resulting Agency Comment Spec In Lab Jake Montaño MD CHEMISTRY ORDERABLES [facility] [place] [place] [address] * (ABNORMAL) Differential, Automated (08/16/2017 5:27 AM EDT) Neutrophils % 69.2 % [facility] Neutr Abs (ANC) 7.02(H) 1.70 - 6.10 x10(3)/[facility] Lymphocytes % 18.2 % [facility] Lymphocytes Abs 1.8 0.9 - 3.2 x10(3)/[facility] Monocytes % 10.2 % [facility] Monocyte Abs 1.0(H) 0.3 - 0.9 x10(3)/[facility] Eosinophils % 1.7 % [facility] Eosinophils Abs 0.2 0.0 - 0.4 x10(3)/[facility] Basophils % 0.2 % [facility] Basophils Abs 0.0 0.0 - 0.1 x10(3)/[facility] Immature Gran % 0.50 % [facility] Comment: Immature granulocytes(IG's)percentage and absolute count will include metamyelocytes, myelocytes, and promyelocytes. Blood smears from CBCs yielding IG's will be scanned manually for concordance. If this scan disagrees with the automated IG or if promyelocytes are noted, a manual differential will be performed. [place] Gran Abs 0.05(H) 0.00 - 0.04 x10(3)/ L [facility] Blood specimen (specimen) 08/16/2017 5:27 AM EDT 08/16/2017 5:36 AM EDT Narrative Resulting Agency Comment Spec In Lab Jake Montaño MD HEMATOLOGY ORDERABLE S [facility] [place] [place] [address] * (ABNORMAL) Hemogram (08/16/2017 5:27 AM EDT) WBC 10.2(H) 4.0 - 9.5 x10(3)/[facility] RBC 3.50(L) 4.00 - 5.21 x10(6)/[facility] Hemoglobin 11.7 11.7 - 15.5 gm/dL [facility] Hematocrit 35.1(L) 35.7 - 45.8 % [facility] MCV 100.3(H) 82.6 - 94.[address] [facility] MCH 33.4(H) 27.1 - 32.[address] [facility] MCHC 33.3 31.7 - 35.0 gm/dL [facility] Platelets 207 145 - 357 x10(3)/[facility] RDWSD 46.5(H) 37.0 - 46.0 [facility] RDWCV 12.6 11.5 - 14.1 % [facility] MPV 9.9 7.6 - 12.9 [facility] nRBC % Auto 0.0 % [facility] nRBC Abs Auto 0.000 0.000 - 0.000 x10(3)/[facility] Blood specimen (specimen) 08/16/2017 5:27 AM EDT 08/16/2017 5:36 AM EDT Narrative Resulting Agency Comment Spec In Lab Jake Montaño MD HEMATOLOGY ORDERABLE S [facility] [place] [address] * Basic Metabolic Panel (non-fasting) (08/16/2017 5:27 AM EDT) Glucose Lvl 116 65 - 199 mg/dL [facility] Comment:Diabetes: >=200 mg/d L plus symptoms BUN 10 8 - 18 mg/dL [facility] Creatinine 0.92 0.70 - 1.20 mg/dL [facility] Comment: Please note that the pediatric reference intervals supplied above were not validated at [facility]. Results from pediatric patients should be interpreted in conjunction to the patient's age, height and muscle mass. Sodium 142 135 - 145 mmol/L [facility] Potassium 4.8 3.5 - 5.0 mmol/L [facility] Comment: Please note: ??Patients with WBC >100,000 may have falsely elevated Potassium levels. ??For accurate Potassium quantification in these patients send serum separator tube (gold top) for subsequent determinations. ??Contact the Clinical Chemistry Laboratory if there are any questions. Chloride 105 98 - 107 mmol/L [facility] CO2 26 22 - 31 mmol/L [facility] Anion Gap 11 5 - 15 mmol/L [facility] Calcium 8.8 8.5 - 10.5 mg/dL [facility] Estimated GFR >60 >=60 [facility] Comment: This estimated GFR (eGFR) value was calculated using the MDRD equation which has been validated on patients between the ages of 18 and 70. The MDRD should not be used to assess kidney function in patients < 18 years of age or in patients with extremes of body mass, or in patients with acute kidney failure. This value should be multiplied by 1.2 for patients. For further information please copy and paste the following links into your internet browser. [email or web address] Blood specimen (specimen) 08/16/2017 5:27 AM EDT 08/16/2017 5:36 AM EDT Narrative Resulting Agency Comment Spec In Lab Jake Montaño MD CHEMISTRY ORDERABLES [facility] [place] [address] * IR OR VASC Aniogram Image Storage Only (08/15/2017 10:41 AM EDT) Narrative RAD - 08/15/2017 10:39 AM EDT This exam is for storage only and is auto-finalizing. Jake Montaño MD IMG FILM LIBRARY ORD ERABLES [facility] [place] * (ABNORMAL) BLOOD GAS 2 ARTERIAL (08/15/2017 8:18 AM EDT) pH Art 7.36 7.35 - 7.45 [facility] pCO2 Art 40 35 - [address] [facility] pO2 Art 148(H) 85 - [address] [facility] HCO3 Art 22.3 20.0 - 26.0 mmol/L [facility] BE Art -3.1(L) -3.0 - 3.0 mmol/L [facility] Hgb Blood Gas 12.0 11.7 - 15.5 gm/dL [facility] O2HB Art 97.7(H) 94.0 - 97.0 % [facility] COHB Art 0.8 % [facility] Comment: Nonsmokers: 0.5-1.5% COHB Smokers: Variable, but usually less than 10% Toxic: 20-30% COHB Lethal: Greater than 60% COHB METHB Art 0.3 <=1.5 % [facility] Na Whole Blood 141 135 - 145 mmol/L [facility] K Whole Blood 4.0 3.5 - 5.0 mmol/L [facility] Comment: Please note: Patients with WBC >100,000 may have falsely elevated Potassium levels. Contact the Clinical Chemistry Laboratory if there are any questions. ICa Whole Blood 1.19 1.15 - 1.33 mmol/L [facility] Comment: Note: ??Total bilirubin higher than 20 mg/dL may lead to falsely low ionized calcium. CL Whole Blood 110(H) 98 - 107 mmol/L [facility] Gluc Whole Bld 110 65 - 199 mg/dL [facility] Comment:Diabetes: >=200 mg/d L plus symptoms. Lactate WB 1.8 0.5 - 2.2 mmol/L [facility] Blood specimen (specimen) 08/15/2017 8:18 AM EDT 08/15/2017 8:18 AM EDT Jake Montaño MD CHEMISTRY ORDERABLES [facility] [place] [address] * SCAN DOC: IMPLANTABLE DEVICES (08/15/2017 12:00 AM EDT) Narrative 08/15/2017 12:00 AM EDT Ordered by an unspecified provider. Scanning Provider MEDIA MGR SCAN EXT O RDR/RSLT documented in this encounter Visit Diagnoses Diagnosis Claudication in peripheral vascular disease Peripheral vascular disease, unspecified Claudication in peripheral vascular disease Peripheral vascular disease, unspecified Claudication in peripheral vascular disease Peripheral vascular disease, unspecified documented in this encounter Admitting Diagnoses Diagnosis Claudication in peripheral vascular disease Peripheral vascular disease, unspecified documented in this encounter Administered Medications Inactive Administered Medications - up to 3 most recent administrations Medication Order MAR Action Action Date Dose Rate Site acetaminophen (TYLENOL) 650 mg/20.3 mL oral liquid 650 mg 650 mg, Oral, EVERY 6 HOURS WHILE AWAKE, First dose on Mon08/15/17 at 1800, Until Discontinued, Routine Given 08/17/2017 5:24 AM EDT 650 mg Given 08/16/2017 5:02 PM EDT 650 mg Given 08/16/2017 12:54 PM EDT 650 mg albuterol (PROVENTIL) nebulizer solution 2.5 mg 2.5 mg, Nebulization, 4 TIMES DAILY, First dose on Mon08/15/17 at 1700, Until Discontinued, Routine Given 08/17/2017 8:20 AM EDT 2.5 mg Given 08/16/2017 8:11 PM EDT 2.5 mg Given 08/16/2017 5:02 PM EDT 2.5 mg aspirin chewable tablet 81 mg 81 mg, Oral, DAILY, First dose on Mon08/16/17 at 0900, Until Discontinued, Routine Given 08/17/2017 8:11 AM EDT 81 mg Given 08/16/2017 8:35 AM EDT 81 mg beclomethasone (QVAR) 80 mcg/actuation inhaler 1 puff 1 puff, Inhalation, 2 TIMES DAILY, First dose on Mon08/15/17 at 2100, Until Discontinued, Substituted for flovent per therapeutic interchange policy. Given 08/17/2017 8:26 AM EDT 1 puff Given 08/16/2017 8:11 PM EDT 1 puff Given 08/16/2017 8:35 AM EDT 1 puff cellulose (fibrillar), oxidized (SURGICEL) 2 x 4 pad ONCE PRN, Starting on Mon08/15/17 at 0951, Until Tracey 08/17/17 at 1242, Intra-Operative (Intra-Procedure), Routine Given 08/15/2017 9:51 AM EDT 1 each citalopram (CeleXA) tablet 40 mg 40 mg, Oral, DAILY, First dose on Mon08/15/17 at 1745, Until Discontinued, Routine Given 08/17/2017 8:25 AM EDT 40 mg Given 08/16/2017 8:34 AM EDT 40 mg Given 08/15/2017 6:29 PM EDT 40 mg clopidogrel (PLAVIX) tablet 75 mg 75 mg, Oral, DAILY, First dose on Mon08/16/17 at 0900, Until Discontinued, Routine Given 08/17/2017 8:13 AM EDT 75 mg Given 08/16/2017 8:34 AM EDT 75 mg gelatin adsorbable (GELFOAM) sponge ONCE PRN, Starting on Mon08/15/17 at 0950, Until Tracey 08/17/17 at 1242, Intra-Operative (Intra-Procedure) Given 08/15/2017 9:50 AM EDT 3 each 19- Surgical Site hydroCHLOROthiazide (HYDRODIURIL) tablet 12.5 mg 12.5 mg, Oral, DAILY, First dose on Mon08/16/17 at 0900, Until Discontinued, Routine Given 08/17/2017 8:14 AM EDT 12.5 mg Given 08/16/2017 8:34 AM EDT 12.5 mg iodixanol (VISIPAQUE) 320 mg iodine/mL injection ONCE PRN, Starting on Mon08/15/17 at 1116, Until Tracey 08/17/17 at 1242, Intra-Operative (Intra-Procedure), Routine Given 08/15/2017 11:16 AM EDT 30 mLs 19- Surgical Site ipratropium-albuterol (DUONEB) 0.5 mg-3 mg(2.5 mg base)/3 mL nebulizer solution 3 mL 3 mL, Nebulization, 2 TIMES DAILY, First dose on Mon08/15/17 at 2100, Until Discontinued, Routine Given 08/17/2017 8:20 AM EDT 3 mLs Given 08/16/2017 8:08 PM EDT 3 mLs Given 08/16/2017 8:39 AM EDT 3 mLs levothyroxine (SYNTHROID) tablet 50 mcg 50 mcg, Oral, DAILY, First dose on Mon08/16/17 at 0600, Until Discontinued, Routine Given 08/17/2017 5:25 AM EDT 50 mcg Given 08/16/2017 6:38 AM EDT 50 mcg lisinopril (PRINIVIL;ZESTRIL) tablet 10 mg 10 mg, Oral, DAILY, First dose on Mon08/15/17 at 1745, Until Discontinued, Hold for SBP<110, Routine Given 08/17/2017 8:15 AM EDT 10 mg Given 08/16/2017 8:35 AM EDT 10 mg loratadine (CLARITIN) tablet 10 mg 10 mg, Oral, DAILY, First dose on Mon08/16/17 at 0900, Until Discontinued Given 08/17/2017 8:17 AM EDT 10 mg Given 08/16/2017 8:34 AM EDT 10 mg melatonin tablet 4.5 mg 4.5 mg (rounded from 5 mg), Oral, NIGHTLY, First dose on Mon08/15/17 at 2100, Until Discontinued, Routine Given 08/16/2017 8:11 PM EDT 4.5 mg nystatin (MYCOSTATIN) cream Topical (Top), 2 TIMES DAILY, First dose on Mon08/16/17 at 2100, Until Discontinued, Apply to groins bilaterally, on left apply around the incision not directly on top of the incision Given 08/16/2017 8:08 PM EDT oxyCODONE (ROXICODONE) immediate release tablet 5 mg 5 mg, Oral, EVERY 4 HOURS PRN, Starting on Mon08/16/17 at 0652, Until Mon08/17/17 at 1242, Pain, Routine polyethylene glycol (MIRALAX) packet 17 g 17 g, Oral, DAILY, First dose on Mon08/15/17 at 1745, Until Discontinued, Routine Given 08/17/2017 8:17 AM EDT 17 g Given 08/16/2017 9:00 AM EDT 17 g simvastatin (ZOCOR) tablet 40 mg 40 mg, Oral, EVERY EVENING, First dose on Mon08/15/17 at 1745, Until Discontinued, Routine Given 08/16/2017 5:03 PM EDT 40 mg Given 08/15/2017 6:29 PM EDT 40 mg ziprasidone (GEODON) capsule 20 mg 20 mg, Oral, 2 TIMES DAILY WITH MEALS, First dose on Mon08/15/17 at 1900, Until Discontinued, May cause prolongation of QT interval. Take with food., Routine Given 08/17/2017 8:18 AM EDT 20 mg Given 08/16/2017 5:03 PM EDT 20 mg Given 08/16/2017 8:34 AM EDT 20 mg documented in this encounter Active and Recently Administered Medications Times are shown in EDT. Scheduled Medication Order 08/15/2017 08/16/2017 08/17/2017 acetaminophen (TYLENOL) 650 mg/20.3 mL oral liquid 650 mg 650 mg, Oral, EVERY 6 HOURS WHILE AWAKE, First dose on Mon08/15/17 at 1800, Until Discontinued, Routine 1829 (Given - Provider: Alethea Akins RN) 0637 (Given - Provider: Teri Carmona RN)1254 (Given - Provider: Alethea Akins RN)1702 (Given - Provider: Alethea Akins RN) 0524 (Given - Provider: Gail Casas RN) albuterol (PROVENTIL) nebulizer solution 2.5 mg 2.5 mg, Nebulization, 4 TIMES DAILY, First dose on Mon08/15/17 at 1700, Until Discontinued, Routine 1830 (Given - Provider: Alethea Akins RN)2100 (Not Given - Provider: Teri Carmona RN - Reason: Patient/family refused) 0839 (Given - Provider: Alethea Akins RN)1254 (Given - Provider: Alethea Akins RN)1702 (Given - Provider: Alethea Akins RN)2010 (Given - Provider: Gail Casas RN) 0820 (Given - Provider: Neelam Hernández) aspirin chewable tablet 81 mg 81 mg, Oral, DAILY, First dose on Mon08/16/17 at 0900, Until Discontinued, Routine 0835 (Given - Provider: Alethea Akins RN) 0811 (Given - Provider: Neelam Hernández) beclomethasone (QVAR) 80 mcg/actuation inhaler 1 puff 1 puff, Inhalation, 2 TIMES DAILY, First dose on Mon08/15/17 at 2100, Until Discontinued, Substituted for flovent per therapeutic interchange policy. 2100 (Not Given - Provider: Teri Carmona RN - Reason: Patient/family refused) 08 (Given - Provider: Alethea Akins RN)2010 (Given - Provider: Gail Casas RN) 08 (Given - Provider: Neelam Hernández) ceFAZolin (ANCEF) 1g in dextrose 5% 50mL (COMPLETED) 1 g, Intravenous, EVERY 8 HOURS, 1 dose, First dose on Mon08/16/17 at 0800, Administer over 30 Minutes, Indication for (Active or Suspected): Skin/Skin Structure 0920 (New Bag - Provider: Alethea Akins RN)0950 (Stopped - Provider: Alethea Akins RN) citalopram (CeleXA) tablet 40 mg 40 mg, Oral, DAILY, First dose on Mon08/15/17 at 1745, Until Discontinued, Routine 1829 (Given - Provider: Alethea Akins RN) 0834 (Given - Provider: Alethea Akins RN) 0825 (Given - Provider: Neelam Hernández) clopidogrel (PLAVIX) tablet 300 mg (COMPLETED) 300 mg, Oral, ONCE, 1 dose, On Mon08/15/17 at 1500, Routine 1442 (Given - Provider: Samantha Jacobo RN) clopidogrel (PLAVIX) tablet 75 mg 75 mg, Oral, DAILY, First dose on Mon08/16/17 at 0900, Until Discontinued, Routine 0834 (Given - Provider: Alethea Akins RN) 0813 (Given - Provider: Neelam Hernández) fluconazole (DIFLUCAN) tablet 150 mg 150 mg, Oral, DAILY, 5 doses, First dose on Mon08/16/17 at 0900, Last dose on Mon08/20/17 at 0900, Routine, Indication for (Active or Suspected): Skin/Skin Structure 1020 (Given - Provider: Alethea Akins RN) hydroCHLOROthiazide (HYDRODIURIL) tablet 12.5 mg 12.5 mg, Oral, DAILY, First dose on Mon08/16/17 at 0900, Until Discontinued, Routine 0834 (Given - Provider: Alethea Akins RN) 0814 (Given - Provider: Neelam Hernández) ipratropium-albuterol (DUONEB) 0.5 mg-3 mg(2.5 mg base)/3 mL nebulizer solution 3 mL 3 mL, Nebulization, 2 TIMES DAILY, First dose on Mon08/15/17 at 2100, Until Discontinued, Routine 2100 (Not Given - Provider: Teri Carmona RN - Reason: Patient/family refused) 0839 (Given - Provider: Alethea Akins RN)2007 (Given - Provider: Gail Casas RN) 08 (Given - Provider: Neelam Hernández) levothyroxine (SYNTHROID) tablet 50 mcg 50 mcg, Oral, DAILY, First dose on Mon08/16/17 at 0600, Until Discontinued, Routine 0638 (Given - Provider: Teri Carmona RN) 0525 (Given - Provider: Gail Casas RN) lisinopril (PRINIVIL;ZESTRIL) tablet 10 mg 10 mg, Oral, DAILY, First dose on Mon08/15/17 at 1745, Until Discontinued, Hold for SBP<110, Routine 1834 (Not Given - Provider: Alethea Akins RN - Reason: Patient/family refused - Comment: takes in the morning) 0835 (Given - Provider: Alethea Akins RN) 0815 (Given - Provider: Neelam Hernández - Comment: Pt HR 98) loratadine (CLARITIN) tablet 10 mg 10 mg, Oral, DAILY, First dose on Mon08/16/17 at 0900, Until Discontinued 0834 (Given - Provider: Alethea Akins RN) 0817 (Given - Provider: Neelam Hernández) melatonin tablet 4.5 mg 4.5 mg (rounded from 5 mg), Oral, NIGHTLY, First dose on Mon08/15/17 at 2100, Until Discontinued, Routine 2100 (Not Given - Provider: Teri Carmona RN - Reason: Patient/family refused) 2010 (Given - Provider: Gail Casas, RANGEL) nystatin (MYCOSTATIN) cream Topical (Top), 2 TIMES DAILY, First dose on Mon08/16/17 at 2100, Until Discontinued, Apply to groins bilaterally, on left apply around the incision not directly on top of the incision 2007 (Given - Provider: Gail Casas, RANGEL) 0900 (Not Given - Provider: Neelam Hernández - Reason: Patient/family refused) polyethylene glycol (MIRALAX) packet 17 g 17 g, Oral, DAILY, First dose on Mon08/15/17 at 1745, Until Discontinued, Routine 1830 (Not Given - Provider: Alethea Akins RN - Reason: Patient/family refused) 0900 (Given - Provider: Alethea Akins RN) 0817 (Given - Provider: Neelam Hernández) simvastatin (ZOCOR) tablet 40 mg 40 mg, Oral, EVERY EVENING, First dose on Mon08/15/17 at 1745, Until Discontinued, Routine 1829 (Given - Provider: Alethea Akins RN) 1703 (Given - Provider: Alethea Akins RN) ziprasidone (GEODON) capsule 20 mg 20 mg, Oral, 2 TIMES DAILY WITH MEALS, First dose on Mon08/15/17 at 1900, Until Discontinued, May cause prolongation of QT interval. Take with food., Routine 1852 (Given - Provider: Alethea Akins RN) 0834 (Given - Provider: Alethea Akins RN)1703 (Given - Provider: Alethea Akins RN) 0818 (Given - Provider: Neelam Hernández) Continuous Medication Order 08/15/2017 08/16/2017 08/17/2017 lactated Ringers infusion 1,000 mL (CANCELED) 1,000 mL, at 100 mL/hr, Intravenous, CONTINUOUS, Starting on Mon08/15/17 at 0630, Until Mon08/15/17 at 1224, Day of Surgery (Day of Procedure) 0630 (New Bag - Provider: Sue Kinsey RN) PRN Medication Order 08/15/2017 08/16/2017 08/17/2017 cellulose (fibrillar), oxidized (SURGICEL) 2 x 4 pad (CANCELED) ONCE PRN, Starting on Mon08/15/17 at 0951, Until Mon08/17/17 at 1242, Intra-Operative (Intra-Procedure), Routine 0951 (Given - Provider: Jake Montaño MD) fluticasone (FLONASE) 50 mcg/actuation nasal spray 2 spray 2 spray, Each Nare, DAILY PRN, Starting on Mon08/15/17 at 1725, Until Mon08/17/17 at 1242, Rhinitis, Routine gelatin adsorbable (GELFOAM) sponge (CANCELED) ONCE PRN, Starting on Mon08/15/17 at 0950, Until Mon08/17/17 at 1242, Intra-Operative (Intra-Procedure) 0950 (Given - Provider: Jake Montaño MD) iodixanol (VISIPAQUE) 320 mg iodine/mL injection (CANCELED) ONCE PRN, Starting on Mon08/15/17 at 1116, Until Mon08/17/17 at 1242, Intra-Operative (Intra-Procedure), Routine 1116 (Given - Provider: Jake Montaño MD) oxyCODONE (ROXICODONE) immediate release tablet 5 mg (CANCELED)(Linked Group 1) 5 mg, Oral, EVERY 4 HOURS PRN, Starting on Mon08/15/17 at 1224, Until Mon08/16/17 at 0652, Pain, mild to moderate pain (1-6), May give an additional 5 mg in 30 minutes once if pain not relieved., Routine 1244 (Given - Provider: Samantha Jacobo RN) oxyCODONE (ROXICODONE) immediate release tablet 5 mg 5 mg, Oral, EVERY 4 HOURS PRN, Starting on Mon08/16/17 at 0652, Until Tracey 08/17/17 at 1242, Pain, Routine senna-docusate (PERICOLACE) 8.6-50 mg per tablet 2 tablet 2 tablet, Oral, 2 TIMES DAILY PRN, Starting on Mon08/15/17 at 1725, Until Tracey 08/17/17 at 1242, Constipation, Routine Linked Groups Order Group 1: oxyCODONE (ROXICODONE) immediate release tablet 5 mg (CANCELED)Jump to med 5 mg, Oral, EVERY 4 HOURS PRN, Starting on Mon08/15/17 at 1224, Until 08/16/17 at 0652, Pain, mild to moderate pain (1-6), May give an additional 5 mg in 30 minutes once if pain not relieved., Routine Or oxyCODONE (ROXICODONE) immediate release tablet 10 mg (CANCELED) 10 mg, Oral, EVERY 4 HOURS PRN, Starting on Mon08/15/17 at 1224, Until Mon08/16/17 at 0652, Pain, severe pain (7-10), May give an additional 5 mg in 30 minutes once if pain not relieved., Routine documented in this encounter Care Teams Low Emission Automobile Designer Relationship Specialty Start Date End Date Demetra Goff APRN PCP - General 10/19/12 12/31/17 documented as of this encounter
--- OUTSIDE RECORDS SUMMARY | 2024-06-14 01:49 | XMS_ITS | Encounter Summary ---
[place] [address] Care Team Providers Care Ore Miner Name Role Phone Demetra Goff APRN Primary Care Provider [phone] Encounter Details Date Type Department Care Team (Late st Contact Info) Description 08/18/2017 Orders [place] [address] Ella Marino APRN [facility] [place] [address] Social History Tobacco Use Types Packs/Day Years [...] as of this encounter Progress Notes * Ella Marino, RN - 08/18/2017 2:23 PM EDT Pt's VNA called to report increased redness to left groin incision. There is no separation or drainage and pt remains afebrile and feeling generally well. Drs. Pickard and Danyel discussed and pt was started on 7-day course PO keflex with f/u appointment made in clinic. Pt aware. documented in this encounter Plan of Treatment Upcoming Encounters Date Type Department Care Team (Late st Contact Info) Description 02/06/2025 2:40 PM EDT Office Visit Cardiology at [address] [place] [address] Rigoberto Diaz MD [facility] [place] [address] Scheduled Procedures Name Priority Associated Diagnoses Date/Ti me EGD, UPPER GI ENDOSCOPY (WRV U 2.09) Incontinence of feces, unspecified fecal incontinence type Dysphagia, unspecified type COLONOSCOPY, DIAGNOSTIC (WRV U 3.26) Incontinence of feces, unspecified fecal incontinence type Dysphagia, unspecified type documented as of this encounter Visit Diagnoses Not on filedocumented in this encounter Care Teams Ore Miner Relationship Specialty Start Date End Date Demetra Goff APRN PCP - General 10/19/12 12/31/17 documented as of this encounter
--- OUTSIDE RECORDS SUMMARY | 2024-06-14 01:49 | XMS_ITS | Encounter Summary ---
[place] [address] Care Team Providers Care Staple Laster Name Role Phone Demetra Goff APRN Primary Care Provider [phone] Encounter Details Date Type Department Care Team (Latest Contact Info) Description 09/15/2017 9:40 AM EDT - 09/15/2017 11:59 PM EDT Hospital Encounter [place] [id number] Moncho [place] Claudication in peripheral vascular disease Discharge Disposition: Home Social History Tobacco Use [...] needed for Pain. 15 tablet 08/17/2017 12/08/2017 KRILL OIL ORAL Take 1,000 mg by [...] Indications: Hypothyroidism 10/11/2022 fluticasone (FLONASE) 50 mcg/actuation [place], SuspensionIndications :Seasonal allergic rhinitis 2 sprays by [...] 2:40 PM EDT Office Visit Cardiology at [address] [place] [address] Rigoberto Diaz MD [facility] [place] [address] Scheduled Procedures Name Priority Associated Diagnoses Date/Ti me EGD, UPPER GI ENDOSCOPY (WRV U 2.09) Incontinence of feces, unspecified fecal incontinence type Dysphagia, unspecified type COLONOSCOPY, DIAGNOSTIC (WRV U 3.26) Incontinence of feces, unspecified fecal incontinence type Dysphagia, unspecified type documented as of this encounter Procedures Procedure Name Priority Date/Time Associated Diagnosis Comments TREADMILL - VASCULAR Routine 09/15/2017 9:53 AM EDT Claudication in peripheral vascular disease documented in this encounter Results * Treadmill test - Vascular Lab (09/15/2017 9:53 AM EDT) VB Text Report Department: Vascular Surgery Lab Patient: [id number] ([facility]) CPT: 85368 ICD10: I73.9 Referring Physician: DOROTA MONTAÑO MD ?? Phone: Indications: s/p L femoral endart and bilateral iliac stents Diabetes mellitus: no ICD10 Diagnosis Code: I73.9 Interpretation: Treadmill Settings:% Inclination:12% , Speed: 1.5mph. Subjective Response: Patient walked on the treadmill for 3 minutes at which point the test had to be terminated due to shortness of breath. Patient states she has emphysema. Patient appeared in respiratory distress for several minutes. Exercise Pressure Measurement Rest 1 R Ankle 103 108 L Ankle 106 118 Brachial 123 130 R MARIYA 0.84 0.83 L MARIYA 0.86 0.91 Interpretation: Mild lower extremity arterial occlusive disease at rest and no significant change in ankle/brachial index following 3 minute treadmill exercise. No evidence of exercise induced lower extremity peripheral arterial disease during this limited exam. Ambulation was limited by dyspnea, not by intermittent claudication. Comparison: No prior treadmill for comparison. Electronically Signed by: MARY ANN FISHER on 2017-09-15 07:06:33 PM [facility] VB Text Report End of Report [facility] 09/15/2017 9:53 AM EDT Dorota Montaño MD VASCULAR ORDERABLES [facility] documented in this encounter Visit Diagnoses Diagnosis Claudication in peripheral vascular disease Peripheral vascular disease, unspecified documented in this encounter Care Teams Staple Laster Relationship Specialty Start Date End Date Demetra Goff, SHIRT SORTER PCP - General 10/19/12 12/31/17 documented as of this encounter
--- OUTSIDE RECORDS SUMMARY | 2024-06-14 01:49 | XMS_ITS | Encounter Summary ---
[place] [address] Care Team Providers Care Assistant Construction Superintendent Name Role Phone [place], Demetra Combs APRN Primary Care Provider [phone] Reason for Visit * Reason Comments Wound Check PT HERE FOR POST OP INFECTION Encounter Details Date Type Department Care Team (Late st Contact Info) Description 08/24/2017 10:30 AM EDT Office [place] [address] Jake Montaño MD [facility] [place] [address] PVD (peripheral vascular disease) with claudication Social [...] Sign Reading Time Taken Comments Blood Pressure 136/52 08/24/2017 10:43 AM EDT Pulse - - Temperature - - Respiratory Rate 18 08/24/2017 10:43 AM EDT Oxygen Saturation - - Inhaled Oxygen Concentration - - Weight 93 kg (205 lb) 08/24/2017 10:43 AM EDT Height 162.6 cm (5' 4) 08/24/2017 10:43 AM EDT Body Mass Index 35.19 08/24/2017 10:43 AM EDT documented in this encounter Progress Notes * Jake Montaño MD - 08/24/2017 10:30 AM EDT Vascular Surgery Clinic Visit August 24, 2017 CC: Patient is a 66 y.o. female who is here for follow up of left groin wound. Presents for scheduled visit. Underwent L iliofemoral endarterectomy and B TRE stent placement on 08/15/17. Started on Keflex for erythema around incision. States wound healing well without any problems. Reports significant improvement in BLE claudication symptoms. On exam, patient in NAD. L groin incision with very mild erythema. No drainage or fluctuance. Incision healing well. Recommend continuing abx for one more week. Wash wound with soap and water daily, avoid soaking in water. Apply antibiotic ointment to wound twice daily and keep wound dry. Follow up next wk for wound check. Will need treadmill test/MARIYA in mid-August. Jake Montaño MD documented in this encounter Plan of Treatment Upcoming Encounters Date Type Department Care Team (Late st Contact Info) Description 02/06/2025 2:40 PM EDT Office Visit Cardiology at [address] [place] [phone] Rigoberto Diaz MD [facility] [place] [address] Scheduled Procedures Name Priority Associated Diagnoses Date/Ti [...] unspecified documented in this encounter Care Teams Assistant Construction Superintendent Relationship Specialty Start Date End Date Demetra Goff APRN PCP - General 10/19/12 12/31/17 documented as of this encounter
--- OUTSIDE RECORDS SUMMARY | 2024-06-14 01:49 | XMS_ITS | Encounter Summary ---
Author Organization [facility] [place] [address] Care Team Providers Care Chief Engineer Drilling And Recovery Name Role Phone [place], Demetra Combs APRN Primary Care Provider [phone] Reason for Visit * Auth/Cert Specialty Diagnoses [...] Expiration Date Visits Re quested Visits Authorized [id number] 1 1 Encounter Details Date Type Department Care Team (Latest Contact Info) Description 08/15/2017 5:36 AM EDT - 08/17/2017 9:45 AM EDT Hospital Encounter [address] [place] [address] Jake Montaño MD [facility] [place] [address] Claudication in peripheral vascular disease Discharge Disposition: Home with VNA Social History [...] Sign Reading Time Taken Comments Blood Pressure 123/60 08/17/2017 8:03 AM EDT Pulse 70 08/15/2017 4:00 PM EDT Temperature 37.3 ??C (99.1 ??F) 08/17/2017 8:03 AM ED T Respiratory Rate 16 08/17/2017 8:03 AM EDT Oxygen Saturation 94% 08/17/2017 8:03 AM EDT Inhaled Oxygen Concentration - - [...] Discharge date and time: 08/17/2017 Attending Physician: aJke Montaño MD Discharge Diagnoses (Hospital Problems) and [...] right after walking ~5 min. No prior [place] or stroke. Wears CPAP at night for [...] (with a daily Aspirin as well.) We [id number] prescriptions to [facility] so that you could start taking these right away. We also sent 90-day prescriptions with refills to [facility] as you will be taking these indefinitely. For any problems or questions please call [phone] TERESA Sousa, rock wool insulator Nurse Clinician For issues on weeknights after 5pm and weekends please call [phone] and ask for the Vascular Fellow orthotic practitioner. General Instructions None Future Appointments and Orders Future Appointments Provider Department Dept Phone 09/15/2017 10:30 AM Ana Oconnor [place] [facility] [place] [phone] 09/15/2017 11:15 AM Jake Montaño MD Vascular Surgery at [place] [phone] Future Orders Complete By Expires MARIYA, legs, multiple levels [VAS8 Custom] 09/16/2017 (Approximate) 08/17/2018 Process Instructions: There is no in-house vascular chemical laboratory tester available on weeknights (5pm-8am), weekends, or holidays. IF THIS IS A REQUEST FOR AN EMERGENT STUDY DURING THOSE HOURS, please have the senior provider responsible for the patient page the Vascular Surgery Fellow/Senior Resident orthotic practitioner to discuss options. Scheduling Instructions: Questions: Indication for study/signs & symptoms: s/p left fem endart with B iliac stents Question to be answered: bloodflow to feet Which DH location will this be performed?: [place] Referral to Home Health - at DISCHARGE [[id number] CPT(R)] As directed Process Instructions: Scheduling Instructions: Comments: DOCUMENTATION FOR VNA SERVICES (INCLUDING THOSE PATIENTS WITH MEDICARE COVERAGE REQUIRING HOME VNA SERVICES AND/OR HOSPICE SERVICES) PATIENT'S LOCATION: [address] [address] (home) Cell: Telephone Information: Air Export Logistics Manager's Name: Self In discussion with the attending physician, it is certified that this patient is under their care and that they, or a Nurse Practitioner,Clinical Nurse specialist or Physician Home Health Caregiver who is working directly with them, had [...] re health issues HOME HEALTH CARE AGENCY: [facility]. PHONE: [phone] FAX: [phone] Start of care: 24-48 hours after discharge [...] Demetra Goff APRN [address] / [place] [address] All VNA agencies which cover the area of patient's residence have been reviewed, either verbally danae writing, and patient/family have chosen the home health care agency noted Questions: Agency name and contact information: [facility] Patient location post discharge: Home What [...] (with a daily Aspirin as well.) We [id number] prescriptions to [facility] so that you could start taking these right away. We also sent 90-day prescriptions with refills to [facility] as you will be taking these indefinitely. For any problems or questions please call [phone] TERESA Sousa, rock wool insulator Nurse Clinician For issues on weeknights after 5pm and weekends please call [phone] and ask for the Vascular Fellow orthotic practitioner. documented in this encounter Medications at Time [...] Indications: Hypothyroidism 10/11/2022 fluticasone (FLONASE) 50 mcg/actuation [place], SuspensionIndications :Seasonal allergic rhinitis 2 sprays by [...] to go home, denies pain, discomfort. VSS, student and instructor admin meds and discharge paperwork, [...] belongings with her andwas escorted to the [place] entrance via myself, where her daughter was [...] applicable: n/a CPG GOAL OUTCOME EVALUATION: * [place] - 08/17/2017 7:00 AM EDT Vascular Surgery [...] Neuro: no focal deficits Labs: Recent Labs 08/17/1744008/16/17 0527 WBC 11.0* 10.2* HGB 10.8* 11.7 HCT 31.7* 35.1* PLATELET 211 207 Recent Labs 08/17/1744008/16/17 0527 NA 141 142 K 4.6 4.8 CL 103 105 CO2 24 26 BUN 10 10 CREATININE 0.85 0.92 Recent Labs 08/17/1744008/16/17 0527 CALCIUM 8.9 8.8 A/P: 66 y.o. [...] RN - 08/16/2017 11:10 AM EDT The patient/nutrition representative has been provided a list of Home Health Agencies/DME vendors which servetheir preferred geographic area. A letter describing our affiliations was reviewed with them and they were educated about their right to choose where referrals are placed. Patient requests referral to [facility] (RN visit) PHONE: [phone] FAX: [phone] Expected date of discharge: 08/16/17. Referral routed to the Drug Safety Physician for matching with agency/vendor and to provide any required information. ALEXEI Schmitt, MS, BSN, RN, Pager [phone] Office of Care Management * Chayito Vincent [...] BY SERIALOGRAPHY S & I (WRVU 1.79) CATHETER PLACEMENT, SELECTIVE FIRST ORDER IN ARTERIAL SYSTEM, EACH FIRST ORDER ABDOMINAL, PELVIC, OR LOWER EXTREMITY ARTERY BRANCH,WITHIN A VASCULAR FAMILY (WRVU 4.9) Subjective: patient resting comfortably, on CPAP, [...] right fingers and left groin incision. Vascular internal medicine nurse Silvano johnson MD. 1635 Vascular at bedside, feeling of numbness resolved. documented in this encounter H&P Notes * Prerna Pickard MD - 08/15/2017 6:52 AM EDT Vascular Surgery History and Physical HPI: 66F w HTN HLD obesity (BMI 35) who presents with short distance claudication bilatreally worse on left than right after walking ~5 min. No prior [place] or stroke. Wears CPAP at night for [...] times daily. ??? fluticasone (FLONASE) 50 mcg/actuation [place], Suspension 2 sprays by Each Nare route [...] Triphasic Dorsalis Pedis (Ankle) Artery 62 0.48 Canadian-Biphasic Posterior Tibial (Ankle) Artery 87 0.68 Canadian-Biphasic Stress test: no ischemia, EF 65% Imaging: [...] and 0.5/0.7 on left. 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, drives, no GALINDO, ranch home [address] [facility] [address] Social & Family Supports/Community Resources: Sammi Extended Emergency Contact Information Primary Emergency Contact: Sammi Steel Address: [address] [place] [address] [facility] Mobile Relation: Child Secondary Emergency Contact: Bam Trevizo, PERRY [facility] Mobile Relation: Child Behavioral Health History: Hx depression and anxiety, on meds Substance Use/Abuse: Denies smoking, alcohol, or illicit drug use Other Pertinent/Service Specific Information: None Health/Prescription Coverage: Payor: JOSÉ MIGUEL SUAREZ / Plan: [place] / Product Type: *No Product type* / Secondary Insurance: None Prescription Coverage: see above Preferred Pharmacy: [facility] [place] [address] [facility] [address] [place] [facility] - [place], [place] - [address] [facility] [facility] [address] [facility] [address] - [place], [place] - [address] [place] [id number] Other: None Primary Care Provider: Demetra Goff APRN [phone] Patient/Caregiver Goals of Treatment: Safe dc plan [...] planning. ALEXEI Schmitt MS, BSN, RN, Pager [phone] Office of Care Management * Plan of Care - Teri Carmona RN - 08/16/2017 5:39 AM EDT Problem: Patient Care Overview Goal: Plan of Care Review Outcome: Ongoing (Interventions Implemented as Appropriate) 08/15/17 2131 08/16/17 9840 Plan of Care Review Progress -- improving Coping/Psychosocial Plan Of Care Reviewed With patient -- OUTCOME EVALUATION NOTE: OUTCOME SUMMARY: Ms. Deleon did great overnight; no complaints of pain, [...] Pickard MD - 08/15/2017 11:52 AM EDT [facility] Operative Note Patient Name: Lindsey Deleon : [id number] MR#: [id number] Case Date: 08/15/2017 Surgeon: Surgeon(s) and Role: [...] Implant Name Type Inv. Item Serial No. Creative/Art Director Lot No. LRB No. Used Action PATCH,BIOL,XENOSURE,.8X8CM ([id number]) - [id number] IMPLANTS PATCH,BIOL,XENOSURE,.8X8CM ([id number]) [facility] [employer] - [id number] Left 1 Implanted STENT,XPRESS,BLRY,8X40MM,75CM ([id number]) - [id number] IMPLANTS STENT,XPRESS,BLRY,8X40MM,75CM ([id number]) [employer] - [id number] Left 1 Implanted STENT,XPRESS,BLRY,8X40MM,135 ([id number]) - [id number] IMPLANTS STENT,XPRESS,BLRY,8X40MM,135 ([id number])[employer] - [id number] Right 1 Implanted CLOSU,VSL,PRCL,PRGLD,SMC,6FR ([id number]) - [id number] IMPLANTS CLOSU,VSL,PRCL,PRGLD,SMC,6FR ([id number])[employer] - [id number] Right 1 Implanted Findings: Bulky calcific plaque [...] and 0.5/0.7 on left. 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 Plan [...] Operative Note Patient Name: Lindsey Deleon : [id number] MR#: [id number] Case Date: 08/15/2017 Surgeon: Surgeon(s) and Role: [...] PM EDT Office Visit Cardiology at [address] [place] [address] Rigoberto Diaz MD [facility] [place] [address] Scheduled Procedures Name Priority Associated Diagnoses Date/Ti me EGD, UPPER GI ENDOSCOPY (WRV U 2.09) Incontinence of feces, unspecified fecal incontinence type Dysphagia, unspecified type COLONOSCOPY, DIAGNOSTIC (WRV U 3.26) Incontinence of feces, unspecified fecal incontinence type Dysphagia, unspecified type documented as of this encounter Procedures Procedure Name Priority Date/Time Associated Diagnosis Comments WORM RAISER SCAN 08/18/2017 12:00 AM EDT HEMOGRAM Routine [...] Routine 08/16/2017 5:27 AM EDT IR OR VASC ANGIOGRAM IMAGE STORAGE ONLY [...] in this encounter Results * SCAN DOC: WORM RAISER (08/18/2017 12:00 AM EDT) Anatomical Region Laterality Modality Other Narrative 08/18/2017 12:00 AM EDT Ordered by an unspecified provider. Scanning Provider MEDIA MGR SCAN EXT O RDR/RSLT * (ABNORMAL) Differential, Automated (08/17/2017 4:41 AM EDT) Neutrophils % 71.2 % [facility] Neutr Abs (ANC) 7.81(H) 1.70 - 6.10 x10(3)/[facility] Lymphocytes % 14.2 % [facility] Lymphocytes Abs 1.6 0.9 - 3.2 x10(3)/[facility] Monocytes % 12.4 % [facility] Monocyte Abs 1.4(H) 0.3 - 0.9 x10(3)/[facility] Eosinophils % 1.5 % [facility] Eosinophils Abs 0.2 0.0 - 0.4 x10(3)/[facility] Basophils % 0.3 % [facility] Basophils Abs 0.0 0.0 - 0.1 x10(3)/[facility] Immature Gran % 0.40 % [facility] Comment: Immature granulocytes(IG's)percentage and absolute count will include metamyelocytes, myelocytes, and promyelocytes. Blood smears from CBCs yielding IG's will be scanned manually for concordance. If this scan disagrees with the automated IG or if promyelocytes are noted, a manual differential will be performed. [place] Gran Abs 0.04 0.00 - 0.04 x10(3)/[facility] Blood specimen (specimen) 08/17/2017 4:41 AM EDT 08/17/2017 5:00 AM EDT Narrative Resulting Agency Comment Spec In Lab Jake Montaño MD HEMATOLOGY ORDERABLE S [facility] [place] [address] * (ABNORMAL) Hemogram (08/17/2017 4:41 AM EDT) [facility] WBC 11.0(H) 4.0 - 9.5 x10(3)/[facility] RBC 3.20(L) 4.00 - 5.21 x10(6)/[facility] Hemoglobin 10.8(L) 11.7 - 15.5 gm/dL [facility] Hematocrit 31.7(L) 35.7 - 45.8 % [facility] MCV 99.1(H) 82.6 - 94.4 [facility] MCH 33.8(H) 27.1 - 32.[address] [facility] MCHC 34.1 31.7 - 35.0 gm/dL [facility] Platelets 211 145 - 357 x10(3)/[facility] RDWSD 46.1(H) 37.0 - 46.0 [facility] RDWCV 12.6 11.5 - 14.1 % [facility] MPV 9.8 7.6 - 12.9 [facility] nRBC % Auto 0.0 % [facility] nRBC Abs Auto 0.000 0.000 - 0.000 x10(3)/[facility] Blood specimen (specimen) 08/17/2017 4:41 AM EDT 08/17/2017 5:00 AM EDT Narrative Resulting Agency Comment Spec In Lab Jake Montaño MD HEMATOLOGY ORDERABLE S [facility] [place] [address] * Basic Metabolic Panel (non-fasting) (08/17/2017 4:41 AM EDT) [facility] Glucose Lvl 133 65 - 199 mg/dL [facility] Comment:Diabetes: >=200 mg/d L plus symptoms BUN 10 8 - 18 mg/dL [facility] Creatinine 0.85 0.70 - 1.20 mg/dL [facility] Comment: Please note that the pediatric reference intervals supplied above were not validated at [facility]. Results from pediatric patients should be interpreted in conjunction to the patient's age, height and muscle mass. Sodium 141 135 - 145 mmol/L [facility] Potassium 4.6 3.5 - 5.0 mmol/L [facility] Comment: Please note: ??Patients with WBC >100,000 may have falsely elevated Potassium levels. ??For accurate Potassium quantification in these patients send serum separator tube (gold top) for subsequent determinations. ??Contact the Clinical Chemistry Laboratory if there are any questions. Chloride 103 98 - 107 mmol/L [facility] CO2 24 22 - 31 mmol/L [facility] Anion Gap 14 5 - 15 mmol/L [facility] Calcium 8.9 8.5 - 10.5 mg/dL [facility] Estimated GFR >60 >=60 [facility] Comment: This estimated GFR [...] the following links into your internet browser. [email or web address] Blood specimen (specimen) 08/17/2017 4:41 AM EDT 08/17/2017 5:00 AM EDT Narrative Resulting Agency Comment Spec In Lab Jake Montaño MD CHEMISTRY ORDERABLES [facility] [place] [id number] * (ABNORMAL) Differential, Automated (08/16/2017 5:27 AM EDT) Neutrophils % 69.2 % [facility] Neutr Abs (ANC) 7.02(H) 1.70 - 6.10 x10(3)/[facility] Lymphocytes % 18.2 % [facility] Lymphocytes Abs 1.8 0.9 - 3.2 x10(3)/[facility] Monocytes % 10.2 % [facility] Monocyte Abs 1.0(H) 0.3 - 0.9 x10(3)/[facility] Eosinophils % 1.7 % [facility] Eosinophils Abs 0.2 0.0 - 0.4 x10(3)/[facility] Basophils % 0.2 % [facility] Basophils Abs 0.0 0.0 - 0.1 x10(3)/[facility] Immature Gran % 0.50 % [facility] Comment: Immature granulocytes(IG's)percentage and absolute count will include metamyelocytes, myelocytes, and promyelocytes. Blood smears from CBCs yielding IG's will be scanned manually for concordance. If this scan disagrees with the automated IG or if promyelocytes are noted, a manual differential will be performed. [place] Gran Abs 0.05(H) 0.00 - 0.04 x10(3)/[facility] Blood specimen (specimen) 08/16/2017 5:27 AM EDT 08/16/2017 5:36 AM EDT Narrative Resulting Agency Comment Spec In Lab Jake Montaño MD HEMATOLOGY ORDERABLE S [facility] [place] [address] * (ABNORMAL) Hemogram (08/16/2017 5:27 AM EDT) WBC 10.2(H) 4.0 - 9.5 x10(3)/[facility] RBC 3.50(L) 4.00 - 5.21 x10(6)/[facility] Hemoglobin 11.7 11.7 - 15.5 gm/dL [facility] Hematocrit 35.1(L) 35.7 - 45.8 % [facility] MCV 100.3(H) 82.6 - 94.[address] [facility] MCH 33.4(H) 27.1 - 32.[address] [facility] MCHC 33.3 31.7 - 35.0 gm/dL [facility] Platelets 207 145 - 357 x10(3)/[facility] RDWSD 46.5(H) 37.0 - 46.0 [facility] RDWCV 12.6 11.5 - 14.1 % [facility] MPV 9.9 7.6 - 12.9 [facility] nRBC % Auto 0.0 % [facility] nRBC Abs Auto 0.000 0.000 - 0.000 x10(3)/[facility] Blood specimen (specimen) 08/16/2017 5:27 AM EDT 08/16/2017 5:36 AM EDT Narrative Resulting Agency Comment Spec In Lab Jake Montaño MD HEMATOLOGY ORDERABLE S [facility] [place] [address] * Basic Metabolic Panel (non-fasting) (08/16/2017 5:27 AM EDT) Glucose Lvl 116 65 - 199 mg/dL [facility] Comment:Diabetes: >=200 mg/d L plus symptoms BUN 10 8 - 18 mg/dL [facility] Creatinine 0.92 0.70 - 1.20 mg/dL [facility] Comment: Please note that the pediatric reference intervals supplied above were not validated at [facility]. Results from pediatric patients should be interpreted in conjunction to the patient's age, height and muscle mass. Sodium 142 135 - 145 mmol/L [facility] Potassium 4.8 3.5 - 5.0 mmol/L [facility] Comment: Please note: ??Patients with WBC >100,000 may have falsely elevated Potassium levels. ??For accurate Potassium quantification in these patients send serum separator tube (gold top) for subsequent determinations. ??Contact the Clinical Chemistry Laboratory if there are any questions. Chloride 105 98 - 107 mmol/L [facility] CO2 26 22 - 31 mmol/L [facility] Anion Gap 11 5 - 15 mmol/L [facility] Calcium 8.8 8.5 - 10.5 mg/dL [facility] Estimated GFR >60 >=60 [facility] Comment: This estimated GFR [...] the following links into your internet browser. [email or web address] Blood specimen (specimen) 08/16/2017 5:27 AM EDT 08/16/2017 5:36 AM EDT Narrative Resulting Agency Comment Spec In Lab Jake Montaño MD CHEMISTRY ORDERABLES [facility] [place] [address] * IR OR VASC Aniogram Image Storage Only (08/15/2017 10:41 AM EDT) Narrative [facility] - 08/15/2017 10:39 AM EDT This exam is for storage only and is auto-finalizing. Jake Montaño MD IM FILM LIBRARY ORD ERABLES [facility] [place] * (ABNORMAL) BLOOD GAS 2 ARTERIAL (08/15/2017 8:18 AM EDT) pH Art 7.36 7.35 - 7.45 [facility] pCO2 Art 40 35 - [address] [facility] pO2 Art 148(H) 85 - [address] [facility] HCO3 Art 22.3 20.0 - 26.0 mmol/L [facility] BE Art -3.1(L) -3.0 - 3.0 mmol/L [facility] Hgb Blood Gas 12.0 11.7 - 15.5 gm/dL [facility] O2HB Art 97.7(H) 94.0 - 97.0 % [facility] COHB Art 0.8 % [facility] Comment: Nonsmokers: 0.5-1.5% COHB Smokers: Variable, but usually less than 10% Toxic: 20-30% COHB Lethal: Greater than 60% COHB METHB Art 0.3 <=1.5 % [facility] Na Whole Blood 141 135 - 145 mmol/L [facility] K Whole Blood 4.0 3.5 - 5.0 mmol/L [facility] Comment: Please note: Patients with WBC >100,000 may have falsely elevated Potassium levels. Contact the Clinical Chemistry Laboratory if there are any questions. ICa Whole Blood 1.19 1.15 - 1.33 mmol/L [facility] Comment: Note: ??Total bilirubin higher than 20 mg/dL may lead to falsely low ionized calcium. CL Whole Blood 110(H) 98 - 107 mmol/L [facility] Gluc Whole Bld 110 65 - 199 mg/dL [facility] Comment:Diabetes: >=200 mg/d L plus symptoms. Lactate WB 1.8 0.5 - 2.2 mmol/L [facility] Blood specimen (specimen) 08/15/2017 8:18 AM EDT 08/15/2017 8:18 AM EDT Jake Montaño MD CHEMISTRY ORDERABLES [facility] [address] * SCAN DOC: IMPLANTABLE DEVICES (08/15/2017 12:00 [...] Given 08/16/2017 8:35 AM EDT 1 puff ceFAZolin (ANCEF) 1g in dextrose 5% 50mL 1 g, Intravenous, EVERY 8 HOURS, 1 dose, First dose on Mon08/16/17 at 0800, Administer over 30 Minutes, Indication for (Active or Suspected): Skin/Skin Structure New Bag 08/16/2017 9:20 AM EDT 1 g 100 mL/hr citalopram (CeleXA) tablet 40 mg 40 mg, Oral, DAILY, First dose on Mon08/15/17 at 1745, Until Discontinued, Routine Given 08/17/2017 8:25 AM EDT 40 mg Given 08/16/2017 8:34 AM EDT 40 mg Given 08/15/2017 6:29 PM EDT 40 mg clopidogrel (PLAVIX) tablet 300 mg 300 mg, Oral, ONCE, 1 dose, On Mon08/15/17 at 1500, Routine Given 08/15/2017 2:42 PM EDT 300 mg clopidogrel (PLAVIX) tablet 75 mg 75 mg, Oral, DAILY, First dose on Mon08/16/17 at 0900, Until Discontinued, Routine Given 08/17/2017 8:13 AM EDT 75 mg Given 08/16/2017 8:34 AM EDT 75 mg fluconazole (DIFLUCAN) tablet 150 mg 150 mg, Oral, DAILY, 5 doses, First dose on Mon08/16/17 at 0900, Last dose on Mon08/20/17 at 0900, Routine, Indication for (Active or Suspected): Skin/Skin Structure Given 08/16/2017 10:20 AM E DT 150 mg hydroCHLOROthiazide (HYDRODIURIL) tablet 12.5 mg 12.5 mg, Oral, DAILY, First dose on Mon08/16/17 at 0900, Until Discontinued, Routine Given 08/17/2017 8:14 AM EDT 12.5 mg Given 08/16/2017 8:34 AM EDT 12.5 mg ipratropium-albuterol (DUONEB) 0.5 mg-3 mg(2.5 mg base)/3 mL nebulizer solution 3 mL 3 mL, Nebulization, 2 TIMES DAILY, First dose on Mon08/15/17 at 2100, Until Discontinued, Routine Given 08/17/2017 8:20 AM EDT 3 mLs Given 08/16/2017 8:08 PM EDT 3 mLs Given 08/16/2017 8:39 AM EDT 3 mLs lactated Ringers infusion 1,000 mL 1,000 mL, at 100 mL/hr, Intravenous, CONTINUOUS, Starting on Mon08/15/17 at 0630, Until Mon08/15/17 at 1224, Day of Surgery (Day of Procedure) New Bag 08/15/2017 6:30 AM EDT 1,000 mLs 100 mL/hr levothyroxine (SYNTHROID) tablet 50 mcg 50 mcg, [...] minutes once if pain not relieved., Routine Given 08/15/2017 12:44 PM EDT 5 mg oxyCODONE (ROXICODONE) immediate release tablet 5 mg 5 mg, Oral, EVERY 4 HOURS PRN, Starting on Mon08/16/17 at 0652, Until Tracey 08/17/17 at 1242, Pain, Routine polyethylene glycol (MIRALAX) [...] Teri Carmona RN - Reason: Patient/family refused) 0835 (Given - Provider: Alethea Akins RN)2010 (Given - Provider: Gail Casas RN) 0826 (Given - Provider: Neelam Hernández) ceFAZolin (ANCEF) [...] Alethea Akins RN) 0814 (Given - Provider: Neealm Hernández) ipratropium-albuterol (DUONEB) 0.5 mg-3 mg(2.5 mg base)/3 mL nebulizer solution 3 mL 3 mL, Nebulization, 2 TIMES DAILY, First dose on Mon08/15/17 at 2100, Until Discontinued, Routine 2100 (Not Given - Provider: Teri Carmona RN - Reason: Patient/family refused) 0839 (Given - Provider: Alethea Akins RN)2007 (Given - Provider: Gail Casas RN) 0820 (Given - Provider: Neelam Hernández) levothyroxine (SYNTHROID) [...] 0834 (Given - Provider: Alethea Akins RN) 08 (Given - Provider: Neelam Hernández) melatonin tablet 4.5 mg 4.5 mg (rounded from 5 mg), Oral, NIGHTLY, First dose on Mon08/15/17 at 2100, Until Discontinued, Routine 2100 (Not Given - Provider: Teri Carmona RN - Reason: Patient/family refused) 2010 (Given - Provider: Gail Casas RN) nystatin (MYCOSTATIN) cream Topical (Top), 2 TIMES DAILY, First dose on Mon08/16/17 at 2100, Until Discontinued, Apply to groins bilaterally, on left apply around the incision not directly on top of the incision 2007 (Given - Provider: Gail Casas RN) 0900 (Not Given - Provider: Neelam Hernández [...] on Mon08/15/17 at 1745, Until Discontinued, Routine 182 (Given - Provider: Alethea Akins RN) 1703 (Given - Provider: Alethea Akins RN) ziprasidone (GEODON) capsule 20 mg 20 mg, Oral, 2 TIMES DAILY WITH MEALS, First dose on Mon08/15/17 at 1900, Until Discontinued, May cause prolongation of QT interval. Take with food., Routine 185 (Given - Provider: Alethea Akins, RN) 0834 (Given - Provider: Alethea Akins, RN)1703 (Given - Provider: Alethea Akins, RN) 0818 (Given - Provider: Neelam Hernández) Continuous Medication Order 08/15/2017 08/16/2017 08/17/2017 lactated Ringers infusion 1,000 mL (CANCELED) 1,000 mL, at 100 mL/hr, Intravenous, CONTINUOUS, Starting on Mon08/15/17 at 0630, Until Mon08/15/17 at 1224, Day of Surgery (Day of Procedure) 0630 (New Bag - Provider: Sue Kinsey, RANGEL) PRN Medication Order 08/15/2017 08/16/2017 08/17/2017 cellulose (fibrillar), oxidized (SURGICEL) 2 x 4 pad (CANCELED) ONCE PRN, Starting on Mon08/15/17 at 0951, Until Tracey 08/17/17 at 1242, Intra-Operative (Intra-Procedure), Routine 0951 (Given - Provider: Jake Montaño MD) fluticasone (FLONASE) 50 mcg/actuation nasal spray 2 spray 2 spray, Each Nare, DAILY PRN, Starting on Mon08/15/17 at 1725, Until Tracey 08/17/17 at 1242, Rhinitis, Routine gelatin adsorbable (GELFOAM) sponge (CANCELED) ONCE PRN, Starting on Mon08/15/17 at 0950, Until Tracey 08/17/17 at 1242, Intra-Operative (Intra-Procedure) 0950 (Given - Provider: Jake Montaño MD) iodixanol (VISIPAQUE) 320 mg iodine/mL injection (CANCELED) ONCE PRN, Starting on Mon08/15/17 at 1116, Until Tracey 08/17/17 at 1242, Intra-Operative (Intra-Procedure), Routine 1116 (Given - Provider: Jkae Montaño MD) oxyCODONE (ROXICODONE) immediate release tablet [...] 0652, Until Mon08/17/17 at 1242, Pain, Routine senna-docusate (PERICOLACE) 8.6-50 mg per tablet 2 tablet 2 tablet, Oral, 2 TIMES DAILY PRN, Starting on Mon08/15/17 at 1725, Until Mon08/17/17 at 1242, Constipation, Routine Linked Groups Order [...] Routine documented in this encounter Care Teams Chief Engineer Drilling And Recovery Relationship Specialty Start Date End Date Demetra Goff APRN PCP - General 10/19/12 12/31/17 documented as of this encounter
--- OUTSIDE RECORDS SUMMARY | 2024-06-14 01:49 | XMS_ITS | Encounter Summary ---
[place] [address] Care Team Providers Care Wellness Nurse Rn Name Role Phone None Primary Care Provider Unavailabl e Encounter Details Date Type Department Care Team (Latest Contact Info) Description 09/27/2018 8:30 AM EDT - 09/27/2018 11:59 PM EDT Hospital En[place] [address] [place], [place] Atherosclerotic PVD with intermittent claudication Discharge Disposition: Home Social History Tobacco Use [...] (Mycostatin) Cream Three times a day 03/21/2014 iron polysaccharides (NIFEREX) 150 mg iron Capsule [...] nystatin (MYCOSTATIN) Cream Apply topically. 03/21/2014 03/08/2023 citalopram (CELEXA) 40 mg Tablet Take 20 [...] mouth nightly. 05/21/2019 levothyroxine (SYNTHROID) 50 mcg TabletIndications:hypot hyroidism Take 50 mcg by mouth daily. Indications: Hypothyroidism 10/11/2022 fluticasone (FLONASE) 50 mcg/actuation [place], SuspensionIndications:S easonal allergic rhinitis 2 sprays by Each Nare route daily as needed for Rhinitis. 16 g 3 05/03/2016 03/19/2021 POLYETHYLENE GLYCOL 3350 (MIRALAX ORAL) Take by mouth as needed. 02/05/2024 LACTOBACILLUS RHAMNOSUS GG (CULTURELLE ORAL) Take by mouth daily. 05/21/2019 BETA-CAROTENE,A, W-C & E/MIN (OCUVITE ORAL) Take by mouth. 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 Use with spacer Indications: Chronic Obstructive Pulmonary Disease 05/21/2019 ezetimibe-simvastatin (VYTORIN 10-40) 10-40 mg per tablet 10/12/2010 05/21/2019 documented as of this encounter Plan of Treatment Upcoming Encounters Date Type Department Care Team (Late st Contact Info) Description 02/06/2025 2:40 PM EDT Office Visit Cardiology at [address] [place] [address] Rigoberto Diaz MD [facility] [place] [address] Scheduled Procedures Name Priority Associated Diagnoses Date/Ti me EGD, UPPER GI ENDOSCOPY (WRV U 2.09) Incontinence of feces, unspecified fecal incontinence type Dysphagia, unspecified type COLONOSCOPY, DIAGNOSTIC (WRV U 3.26) Incontinence of feces, unspecified fecal incontinence type Dysphagia, unspecified type documented as of this encounter Procedures Procedure Name Priority Date/Time Associated Diagnosis Comments MARIYA, LEGS, MULTIPLE LEVELS Routine 09/27/2018 8:32 AM EDT Atherosclerotic PVD with intermittent claudication documented in this encounter Results * MARIYA, legs, multiple levels (09/27/2018 8:32 AM EDT) VB Text Report Department: Vascular Surgery Lab Patient: [id number] (FIGUEREDO LINDSEY) CPT: 66926 ICD10: I73.9;I70.219 Referring Physician: DOROTA MONTAÑO MD [...] AM EDT Dorota Montaño MD VASCULAR ORDERABLES Performing Organization Address City/State/[place] de Phone Number VASCUBASE documented in this encounter Visit Diagnoses Diagnosis Atherosclerotic PVD with intermittent claudication Atherosclerosis of [place] arteries of the extremities with intermittent claudication documented in this encounter Care Teams Wellness Nurse Rn Relationship Specialty Start Date End Date None None PCP - General 09/27/18 02/26/19 documented as of this encounter
--- OUTSIDE RECORDS SUMMARY | 2024-06-14 01:49 | XMS_ITS | Encounter Summary ---
[place] [address] Care Team Providers Care Deputy Fire Chief Name Role Phone None Primary Care Provider Unavailabl e Encounter Details Date Type Department Care Team (Late st Contact Info) Description 12/31/2018 Telephone Sleep Center at [facility] [address] [place] [address] Alley Johnson APRN [facility] [place] [address] Social History Tobacco Use Types Packs/Day Years [...] 2:40 PM EDT Office Visit Cardiology at [address] [address] Rigoberto Diaz MD [facility] [place] [address] Scheduled Procedures Name Priority Associated Diagnoses Date/Ti me EGD, UPPER GI ENDOSCOPY (WRV U 2.09) Incontinence of feces, unspecified fecal incontinence type Dysphagia, unspecified type COLONOSCOPY, DIAGNOSTIC (WRV U 3.26) Incontinence of feces, unspecified fecal incontinence type Dysphagia, unspecified type documented as of this encounter Visit Diagnoses Not on filedocumented in this encounter Care Teams Deputy Fire Chief Relationship Specialty Start Date End Date None None PCP - General 09/27/18 02/26/19 documented as of this encounter
--- OUTSIDE RECORDS SUMMARY | 2024-06-14 01:49 | XMS_ITS | Encounter Summary ---
[place] [address] Care Team Providers Care Cable Inspector Name Role Phone Vanita Churchill Omar SPARROW Primary Care Provider [phone] Encounter Details Date Type Department Care Team (Late st Contact Info) Description 02/27/2019 9:30 AM EDT Office [place] [phone] Jake Montaño MD [facility] [place] [address] PVD (peripheral vascular disease) with claudication Social [...] Sign Reading Time Taken Comments Blood Pressure 107/72 02/27/2019 9:33 AM EDT Pulse 84 02/27/2019 9:33 AM EDT Temperature - - Respiratory Rate 18 02/27/2019 9:33 AM EDT Oxygen Saturation - - Inhaled Oxygen Concentration - - Weight 77.6 kg (171 lb) 02/27/2019 9:33 AM EDT Height 160 cm (5' 3) 02/27/2019 9:33 AM EDT Body Mass Index 30.29 02/27/2019 9:33 AM EDT documented in this encounter Progress Notes * Jake Montaño MD - 02/27/2019 9:30 AM EDT Images from the original note were not included. Vascular Surgery Clinic Visit February 27, 2019 CC: Patient is a 68 y.o. female who is here for follow up of PVD. 08/15/17 L iliofemoral endarterectomy, B TRE stent placement (8x38mm BE) for short distance claudication ?? Presents for scheduled follow up visit. Doing well. Denies any??claudication symptoms. No rest pain or [...] Meds include:??ASA, lisinopril, HCTZ, ezetimibe-simvastatin, flovent, duoneb, zyrtec,??synthroid,??melatonin,??celexa ? Tob:??quit '04 ? Physical Exam: On exam, she??is in NAD, RRR, CTA B, Abd soft/NT/ND. Palpable carotid and radial pulses bilaterally. Palpable DPs bilaterally. No open lesions on either foot. Labs: Letter Stamping Machine Operator (08/17/17): 0.85 Imaging studies: I have personally reviewed the following imaging studies. MARIYA (02/27/19): 0.91/0.89 A/P: 68yo female s/p L femoral endarterectomy and B iliac stent placement doing well. -con't asa and statin -con't smoking cessation and regular exercise -f/u 6mo with MARIYA Jake Montaño MD documented in this encounter Plan of Treatment Upcoming Encounters Date Type Department Care Team (Late st Contact Info) Description 02/06/2025 2:40 PM EDT Office Visit Cardiology at [address] [place] [address] Rigoberto Diaz MD [facility] [place] [address] Scheduled Procedures Name Priority Associated Diagnoses Date/Ti [...] unspecified documented in this encounter Care Teams Cable Inspector Relationship Specialty Start Date End Date Vanita Churchill, KYARA PCP - General Family Medicine 02/27/19 documented as of this encounter
--- OUTSIDE RECORDS SUMMARY | 2024-06-14 01:49 | XMS_ITS | Encounter Summary ---
Author Organization [facility] [place] [place] [address] Care Team Providers Care Brass Sorter Name Role Phone KwesiVanita mix Omar SPARROW Primary Care Provider [phone] Encounter Details Date Type Department Care Team (Late st Contact Info) Description 01/09/2019 Telephone Sleep Center at [facility] [address] [place] [address] Samantha Su Social History Tobacco [...] Telephone Encounter - Samantha Su - 01/09/2019 3:11 PM EST Called [facility] and confirmed this order is with the [place], [place] office. However, it is only the retail store in [facility] That is closed, thus, if she would like to go to [facility] vs. [place] she can. These arrangements can be made when [facility] contacts pt. To set up appt. kmb documented in this encounter Plan of Treatment Upcoming Encounters Date Type Department Care Team (Late st Contact Info) Description 02/06/2025 2:40 PM EDT Office Visit Cardiology at [address] [place] [phone] Rigoberto Diaz MD [facility] [place] [address] Scheduled Procedures Name Priority Associated Diagnoses Date/Ti me EGD, UPPER GI ENDOSCOPY (WRV U 2.09) Incontinence of feces, unspecified fecal incontinence type Dysphagia, unspecified type COLONOSCOPY, DIAGNOSTIC (WRV U 3.26) Incontinence of feces, unspecified fecal incontinence type Dysphagia, unspecified type documented as of this encounter Visit Diagnoses Not on filedocumented in this encounter Care Teams Brass Sorter Relationship Specialty Start Date End Date Vanita Churchill, FURNACE FEEDER PCP - General Family Medicine 02/27/19 documented as of this encounter
--- OUTSIDE RECORDS SUMMARY | 2024-06-14 01:49 | XMS_ITS | Encounter Summary ---
[place] [address] Care Team Providers Care Drying Machine Operator Package Yarns Name Role Phone Alethea Beal Primary Care Provider + Encounter Details Date Type Department Care Team (Latest Contact Info) Description 02/16/2018 8:41 AM EDT - 02/16/2018 11:59 PM EDT Hospital En[place] [phone] Marycruz [place] Claudication in peripheral vascular disease Discharge [...] mouth nightly. 05/21/2019 levothyroxine (SYNTHROID) 50 mcg TabletIndications:hypo thyroidism Take 50 mcg by mouth daily. Indications: Hypothyroidism 10/11/2022 fluticasone (FLONASE) 50 mcg/actuation [place], SuspensionIndications: Seasonal allergic rhinitis 2 sprays by Each Nare route daily as needed for Rhinitis. 16 g 3 05/03/2016 03/19/2021 POLYETHYLENE GLYCOL 3350 (MIRALAX ORAL) Take by mouth as needed. 02/05/2024 LACTOBACILLUS RHAMNOSUS GG (CULTURELLE ORAL) Take by mouth daily. BETA-CAROTENE,A, W-C & E/MIN (OCUVITE ORAL) Take by mouth. 05/21 albuterol (PROVENTIL HFA;VENTOLIN HFA) 90 mcg/Actuation inhalerIndications:chr onic obstructive pulmonary disease Inhale 2 puffs into the lungs every 4 hours as needed. Use with spacer Indications: Chronic Obstructive Pulmonary Disease 05/21/2019 ezetimibe-simvastatin (VYTORIN 10-40) 10-40 mg per tablet 10/12/2010 05/21/2019 documented as of this encounter Plan of Treatment Upcoming Encounters Date Type Department Care Team (Late st Contact Info) Description 02/06/2025 2:40 PM EDT Office Visit Cardiology at [address] [place] [address] Rigoberto Diaz MD [facility] [place] [address] Scheduled Procedures Name Priority Associated Diagnoses Date/Ti me EGD, UPPER GI ENDOSCOPY (WRV U 2.09) Incontinence of feces, unspecified fecal incontinence type Dysphagia, unspecified type COLONOSCOPY, DIAGNOSTIC (WRV U 3.26) Incontinence of feces, unspecified fecal incontinence type Dysphagia, unspecified type documented as of this encounter Procedures Procedure Name Priority Date/Time Associated Diagnosis Comments MARIYA, LEGS, MULTIPLE LEVELS Routine 02/16/2018 8:59 AM EDT Claudication in peripheral vascular disease documented in this encounter Results * MARIYA, legs, multiple levels (02/16/2018 8:59 AM EDT) VB Text Report Department: Vascular Surgery Lab Patient: [id number] (LINDSEY MEHTA) CPT: 12240 ICD10: I73.9 Referring Physician: DOROTA MONTAÑO MD ?? Phone: Indications: ?? S/P bilateral iliac stenting and L MANAGER STRATEGY & ACCOUNT endarterectomy Diabetes mellitus: ??No ICD10 Diagnosis Code: I73.9 Findings: Right ?Pressure (mm Hg) ?? MARIYA ??Waveform ? Brachial Artery ?140 ? Dorsalis Pedis (Ankle) Artery ?132 ? 0.94 ??Triphasic ? Posterior Tibial (Ankle) Artery ??128 ? 0.91 ??Biphasic-Rev ?? Left ? Pressure (mm Hg) ?? MARIYA ??Waveform ? Brachial Artery ?138 ? Dorsalis Pedis (Ankle) Artery ?112 ? 0.80 ??Biphasic-Rev ?? Posterior Tibial (Ankle) Artery ??118 ? 0.84 ??Biphasic-Rev ?? Interpretation: RIGHT: Mild lower extremity arterial occlusive disease. Significant improvement from pre-op exam. LEFT: Mild lower extremity arterial occlusive disease. Significant improvement from pre-op exam. Previous ABIs with change from previous value: Date RIGHT DP RIGHT PT RT GR TOE RT Sec TOE LEFT DP LEFT PT LT GR TOE LT Sec TOE 0.48 0.64 ---- ---- 0.48 0.68 ---- ---- Current 0.94(+.46) 0.91(+.27) ---- ---- 0.80(+.32) 0.84(+.16) ---- ---- Electronically Signed by: MEGHNA DENISE on 2018-02-16 05:05:09 PM VASCUBASE VB Text Report End of Report VASCUBASE 02/16/2018 8:59 AM EDT Dorota Montaño MD VASCULAR ORDERABLES VASCUBASE documented in this encounter Visit Diagnoses Diagnosis Claudication in peripheral vascular disease Peripheral vascular disease, unspecified documented in this encounter Care Teams Drying Machine Operator Package Yarns Relationship Specialty Start Date End Date Alethea Beal PA PCP - General Orthopaedic Surgery 01/01/18 09/26/18 documented as of this encounter
--- OUTSIDE RECORDS SUMMARY | 2024-06-14 01:49 | XMS_ITS | Encounter Summary ---
[place] [address] Care Team Providers Care Hands Hanger Name Role Phone Demetra Goff APRN Primary Care Provider [phone] Encounter Details Date Type Department Care Team (Late st Contact Info) Description 12/08/2017 9:00 AM EST Office Visit Sleep Center at [facility] [address] [place] [address] Alley Johnson APRN [facility] [place] [address] CHEMA treated with BiPAP Social History Tobacco [...] Sign Reading Time Taken Comments Blood Pressure 114/42 12/08/2017 8:50 AM EST Pulse 80 12/08/2017 8:50 AM EST Temperature - - Respiratory Rate - - Oxygen Saturation 96% 12/08/2017 8:50 AM EST Inhaled Oxygen Concentration - - Weight 89.4 kg (197 lb 3.2 oz) 12/08/2017 8:50 A M EST Height 162.6 cm (5' 4) 12/08/2017 8:50 AM EST Body Mass Index 33.85 12/08/2017 8:50 AM EST documented in this encounter Patient Instructions * Patient Instructions* Alley Johnson APRN - 12/08/2017 9:00 AM EST Recommendations: --Continue BPAP pressures to 25/17 cw with ramp and humidity --Mask refit order into [facility], starting with AirFit F10 AND AirFit F20/AirTouch F20, F10 may work better for patient's face; for fit, have patient take out her bottom dentures, leave in top dentures (how she sleeps) --For nasal congestion: 1) Try adjusting PAP humidity level, 2) Consider OTC saline nasal spray: 2 sprays per nostril twice daily, before affixing mask in evening and after removing mask in morning --Adjust humidity higher if possible, heated tubing lower if possible for dry mouth and dry nasal passages --Consider room humidifier for dry mouth --Try nasal saline spray morning and night at least, for dry nasal passages --Driving safety discussed, recommend patient not drive if drowsy, if drowsy while driving, 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 --RTC in 3 months to check her CHEMA control, mood and sleep documented in this encounter Progress Notes * Alley Johnson APRN - 12/08/2017 9:00 AM EST Sleep Medicine Follow-Up Note HPI: Ms. Lindsey Mehta is a 66 y.o. female seen for follow-up of obstructive sleep apnea. Patient presents today for follow-up in PAP clinic. Ms. Mehta just gave notice at her job that she cut back from f/t to 20 hrs. She is more depressed these days, tired, and her medication of Celexa has been doubled recently. She doesn't think mood has to do with her PAP therapy as she is using it nightly and cannot sleep without it. She believes she is tired due to the physically difficult work. HPI continues below. Sleep Study: 02/07/2008 [place] [facility] [place]HI: 28/hr, supine index was 29/hour Wt: 192.4lbs Titration [place] [facility] [place] 03/08/2008, Wt: 194.6lbs BPAP Titration 03/28/17, Wt: 214lbs Recommendations: 1. Trial of BIPAP . Consider chinstrap if felt to be needed. 2. Follow up with her PCP as to the SVT noted of unclear significance. 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 to computer systems design analyst, thinks it was medication; cardiology found lack of pulsein hip and feet, stent placed; ECHO from July 18, 2017 shows LVEF 65%) Treatment: BIPAP BPAP Auto 760P, setup 12/30/13 Pressure: 25/17 cm Tolerance: always has gas and did before Interface: Saranya View, size small; previous mask was Mirage Quattro but it left a cortney on her nose Fit: Well Chin strap: No, chin strap was tried in the past but she opened her mouth anyway Humidifier Setting: adjusts HCC: [facility]; getting supplies Snoring: Doesn't know, other person Dry Mouth: Sometimes, adjusts humidity; uses Biotene rinse Mouth Breathing: Yes, has FFM, breathes through her nose when she goes to sleep but probably mouth breathes at night Patient wears top dentures to sleep Daytime Symptoms: Patient-reported scores: Patient-reported last 4 scores: [facility] 06/13/2014 05/03/2016 02/06/2017 12/08/2017 [facility] 3 6 1 4 Insomnia Severity Index 4 (No clinically significant insomnia) 7 (No clinically significant insomnia) 2 (No clinically significant insomnia) Incomplete VR12 - Physical Component Summary 52.36 36.89 43.05 - VR12 - Mental Component Summary 58.01 54.36 54.56 - Nocturnal sleep quality improved: overall improved, but she is sleeping a lot lately Daytime symptoms improved (Daytime sleepiness/fatigue): yes, overall, but she has been more tired due to working more Naps: Now she is napping; wasn't any the last time I saw her; if back hurts she may rest but doesn't fall asleep Involuntary Dozing: no Sleepiness or Drowsiness when driving: none, no drowsiness ROS: Constitutional: Weight is down 17 pounds since March 2017 sleep study ENT: Nasal Obstruction: On Zyrtec over the summer and worked but only taking Flonase now at night Resp: using nebulizer twice per day, uses inhaler 4x per day; increased SOB even at rest--no ECHO in past Sleep Pattern: Bedtime: 7:30 pm, watches TV until 9 pm, then affixes mask, is asleep promptly most nights Wake time: 5-7 am Awakenings: Awakening due to pain lately Social History: Today is the last day of her job, she feels good about this passed in 2012. Patient Active Problem List Diagnosis Code ??? [...] Claudication in peripheral vascular disease I73.9 Outpatient Prescriptions Marked as Taking for the 12/08/17 encounter (Office Visit) with Alley Johnson APRN Medication Sig Dispense Refill ??? [DISCONTINUED] oxyCODONE (ROXICODONE) 5 mg Tablet Take 1 tablet by mouth every 4 hours as needed for Pain. 15 tablet 0 ??? ipratropium-albuterol (DUONEB) 0.5 mg-3 mg(2.5 mg [...] Indications: Hypothyroidism ??? fluticasone (FLONASE) 50 mcg/actuation [place], Suspension 2 sprays by Each Nare route [...] tablet Take 2 tablets by mouth daily. (Patient taking differently: Take 80 mg by mouth daily.) 60 tablet ??? ziprasidone (GEODON) 20 mg [...] ezetimibe-simvastatin (VYTORIN 10-40) 10-40 mg per tablet Notable Medications: Melatonin 5mg QHS; helps her fall asleep Geodon 20mg BID Celexa 20mg BID, PCP is increasing to 40mg BID Compliance Card Data: Date Range: 09/09/17-12/07/17 Settin/17 cm Residual AHI: 4.8 (LEFTY 2.1/OAI 1.3/OAI 1.3) Vibratory Snore Index: 0 % Night in Large Leak: 0.6% Average usage days used-Hours: 9 hrs 9 minutes # Days of usage: 89/90 % Days used > 4 hours 98%. Total % Days used 99% Previous Compliance Card Data: Device: BiPAP Auto 760P Date Range: 11/08/16-02/05/17 Settin/17 cm Residual AHI: 3.2 Vibratory Snore Index: 0 % Night in Large Leak: 0.6% Average usage days used-Hours: 9 hrs 14 minutes # Days of usage: 89/90 % Days used > 4 hours 98%. Total % Days used 99% Device: BiPAP Auto 760P Date Range: 05/11/16-08/08/16 Settin/16 cm Residual AHI: 4.2 Vibratory Snore Index: 0 % Night in Large Leak: 0.2% Average usage days used-Hours: 9 hrs 33 minutes # Days of usage: 90/90 % Days used > 4 hours 100%. Total % Days used 100% Physical Exam: BP 114/42 Pulse 80 Ht 162.6 cm (5' 4) Wt 89.4 kg (197 lb 3.2 oz) SpO2 96% BMI 33.85 kg/m2 General: F, NAD; weight is down about 17lbs Respirations: Even and not labored at rest DERM: Skin Irritation: None anymore on Saranya View Assessment Ms. Lindsey Mehta is a 66 y.o. female seen for obstructive sleep apnea. Ms. Mehta had a recent BPAP titration in March 2017 that showed slightly higher pressures needed. Patient's PAP usage continues to be excellent and nightly. AHI, VSI, and leak appear to be controlled with the current pressure of 25/17, though there's a slight elevated in AHI to 4.8. Patient denies SOB with BPAP at night now. Discussed mask fit, as patient was overtightening mask. Order to [facility] for mask refit. Reviewed dry mouth remedies--she is using Biotene, mask leak is controlled; try room humidifier. Re viewed dry nasal passage remedies (see below). Humidifier/Heater function/rational and settings were reviewed with the patient along with supply replacement. Patient reports increased tiredness and depression, likely due to job difficulties. Today is the last day of her job. I would like to see her again in 3 months to f/u with CHEMA control, daytime fatigue, and mood after time without difficult work. All recommendations below. Recommendations: --Continue BPAP pressures to 25/17 cw with ramp and humidity --Mask refit order into [facility], starting with AirFit F10 AND AirFit F20/AirTouch F20, F10 may work better for patient's face; for fit, have patient take out her bottom dentures, leave in top dentures (how she sleeps) --For nasal congestion: 1) Try adjusting PAP humidity level, 2) Consider OTC saline nasal spray: 2 sprays per nostril twice daily, before affixing mask in evening and after removing mask in morning --Adjust humidity higher if possible, heated tubing lower if possible for dry mouth and dry nasal passages --Consider room humidifier for dry mouth --Try nasal saline spray morning and night at least, for dry nasal passages --Driving safety discussed, recommend patient not drive if drowsy, if drowsy while driving, 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 --RTC in 3 months to check her CHEMA control, mood and sleep The patient indicates understanding of these issues and agrees with the plan. Alley Johnson APRN Cc: Demetra Goff APRN documented in this encounter Plan of Treatment Upcoming Encounters Date Type Department Care Team (Late st Contact Info) Description 02/06/2025 2:40 PM EDT Office Visit Cardiology at [address] [place] [address] Rigoberto Diaz MD [facility] [place] [address] Scheduled Procedures Name Priority Associated Diagnoses Date/Ti me EGD, UPPER GI ENDOSCOPY (WRV U 2.09) Incontinence of feces, unspecified fecal incontinence type Dysphagia, unspecified type COLONOSCOPY, DIAGNOSTIC (WRV U 3.26) Incontinence of feces, unspecified fecal incontinence type Dysphagia, unspecified type documented as of this encounter Visit Diagnoses Diagnosis CHEMA treated with BiPAP documented in this encounter Care Teams Hands Hanger Relationship Specialty Start Date End Date Demetra Goff APRN PCP - General 10/19/12 12/31/17 documented as of this encounter
--- OUTSIDE RECORDS SUMMARY | 2024-06-14 01:49 | XMS_ITS | Encounter Summary ---
Author Organization [facility] [place] [place] [address] Care Team Providers Care Rewinder Name Role Phone Vanita Churchill KYARA Primary Care Provider [phone] Encounter Details Date Type Department Care Team (Late st Contact Info) Description 02/28/2019 Orders [place] [id number] Deborah Villegas, EQUIPMENT OPERATOR/LABORER/SUPERVISOR PVD (peripheral vascular disease) with claudication Social [...] 2:40 PM EDT Office Visit Cardiology at [address] [place] [phone] Rigoberto Diaz MD [facility] [place] [address] Scheduled Procedures Name Priority Associated Diagnoses Date/Ti me EGD, UPPER GI ENDOSCOPY (WRV U 2.09) Incontinence of feces, unspecified fecal incontinence type Dysphagia, unspecified type COLONOSCOPY, DIAGNOSTIC (WRV U 3.26) Incontinence of feces, unspecified fecal incontinence type Dysphagia, unspecified type documented as of this encounter Results * MARIYA, legs, multiple levels (07/02/2020 10:34 AM EDT) Pathologist [facility] VB Text Report Department: Vascular Surgery Lab Patient: [id number] (LINDSEY FIGUEREDO) CPT: 18968 ICD10: I73.9;I70.213 Referring Physician: DOROTA MONTAÑO MD [...] Montaño MD VASCULAR ORDERABLES Performing Organization Address City/State/[facility] Co in Phone Number VASCUBASE documented in this encounter Visit Diagnoses Diagnosis PVD (peripheral vascular disease) with claudication Peripheral vascular disease, unspecified documented in this encounter Care Teams Rewinder Relationship Specialty Start Date End Date Vanita Churchill, ENVIRONMENTAL MONITORING SPECIALIST PCP - General Family Medicine 02/27/19 documented as of this encounter
--- OUTSIDE RECORDS SUMMARY | 2024-06-14 01:49 | XMS_ITS | Encounter Summary ---
[place] [address] Care Team Providers Care Digital Media Buyer Name Role Phone Alethea Beal Primary Care Provider + Reason for Visit * Reason Comments Follow-up Encounter Details Date Type Department Care Team (Late st Contact Info) Description 02/16/2018 9:30 AM EDT Office [place] [address] Jake Montaño MD [facility] [place] [address] PVD (peripheral vascular disease) with claudication Social [...] Sign Reading Time Taken Comments Blood Pressure 132/82 02/16/2018 9:31 AM EDT Pulse 64 02/16/2018 9:31 AM EDT Temperature - - Respiratory Rate - - Oxygen Saturation - - Inhaled Oxygen Concentration - - Weight 87.1 kg (192 lb) 02/16/2018 9:31 AM EDT Height 162.6 cm (5' 4) 02/16/2018 9:31 AM EDT Body Mass Index 32.96 02/16/2018 9:31 AM EDT documented in this encounter Progress Notes * Jake Montaño MD - 02/16/2018 9:30 AM EDT Vascular Surgery Clinic Visit February 16, 2018 CC: Patient is a 67 y.o. [...] No open lesions on either foot. Labs: Headliner Installer (08/17/17): 0.85 No results available for lipid panel or HA1C. Imaging studies: I have personally reviewed the following imaging studies. MARIYA (02/16/18): Findings: Right ?Pressure (mm Hg) ?? MARIYA [...] 0.91(+.27) ---- ---- 0.80(+.32) 0.84(+.16) ---- ---- A/P: 67yo female s/p L iliofemoral endarterectomy and bilateral iliac stents, doing well. -con't asa and statin -con't regular exercise -f/u 6mo with MARIYA Jake Montaño MD documented in this encounter Plan of Treatment Upcoming Encounters Date Type Department Care Team (Late st Contact Info) Description 02/06/2025 2:40 PM EDT Office Visit Cardiology at [address] [place] [address] Rigoberto Diaz MD [facility] [place] [address] Scheduled Procedures Name Priority Associated Diagnoses Date/Ti [...] unspecified documented in this encounter Care Teams Digital Media Buyer Relationship Specialty Start Date End Date Alethea Beal PA PCP - General Orthopaedic Surgery 01/01/18 09/26/18 documented as of this encounter
--- OUTSIDE RECORDS SUMMARY | 2024-06-14 01:49 | XMS_ITS | Encounter Summary ---
[place] [address] Care Team Providers Care Supervisor Photoengraving Name Role Phone Demetra Goff APRN Primary Care Provider [phone] Encounter Details Date Type Department Care Team (Late st Contact Info) Description 12/27/2017 Telephone Sleep Center at [facility] [address] [place] [phone] Josselin Benson, RN Social History Tobacco Use Types Packs/Day [...] encounter Miscellaneous Notes * Telephone Encounter - Alley Johnson APRN - 12/28/2017 10:50 AM EST Noted. KYARA RANGEL Sleep Medicine documented in this encounter Plan of Treatment Upcoming Encounters Date Type Department Care Team (Late st Contact Info) Description 02/06/2025 2:40 PM EDT Office Visit Cardiology at [address] [place] [address] Rigoberto Diaz MD [facility] [place] [address] Scheduled Procedures Name Priority Associated Diagnoses Date/Ti me EGD, UPPER GI ENDOSCOPY (WRV U 2.09) Incontinence of feces, unspecified fecal incontinence type Dysphagia, unspecified type COLONOSCOPY, DIAGNOSTIC (WRV U 3.26) Incontinence of feces, unspecified fecal incontinence type Dysphagia, unspecified type documented as of this encounter Visit Diagnoses Not on filedocumented in this encounter Care Teams Supervisor Photoengraving Relationship Specialty Start Date End Date Demetra Goff APRN PCP - General 10/19/12 12/31/17 documented as of this encounter
--- OUTSIDE RECORDS SUMMARY | 2024-06-14 01:49 | XMS_ITS | Encounter Summary ---
Author Organization [facility] [place] [address] Care Team Providers Care Technologies Division Chair Name Role Phone EagleDemetra barraza Garret SPARROW Primary Care Provider [phone] Encounter Details Date Type Department Care Team (Late st Contact Info) Description 08/30/2017 Orders Only [place] [phone] Faith Fritz RN Claudication in peripheral vascular disease Social History Tobacco Use Types Packs/Day Years [...] PM EDT Office Visit Cardiology at [address] [place] [phone] Rigoberto Diaz MD [facility] [place] [address] Scheduled Procedures Name Priority Associated Diagnoses Date/Ti me EGD, UPPER GI ENDOSCOPY (WRV U 2.09) Incontinence of feces, unspecified fecal incontinence type Dysphagia, unspecified type COLONOSCOPY, DIAGNOSTIC (WRV U 3.26) Incontinence of feces, unspecified fecal incontinence type Dysphagia, unspecified type documented as of this encounter Results * Treadmill test - Vascular Lab (09/15/2017 9:53 AM EDT) VB Text Report Department: Vascular Surgery Lab Patient: [id number] (LINDSEY FIGUEREDO) CPT: 59282 ICD10: I73.9 Referring Physician: DOROTA MONTAÑO MD [...] unspecified documented in this encounter Care Teams Technologies Division Chair Relationship Specialty Start Date End Date Demetra Goff APRN [phone] (work) PCP - General 10/19/12 12/31/17 documented as of this encounter
--- OUTSIDE RECORDS SUMMARY | 2024-06-14 01:49 | XMS_ITS | Encounter Summary ---
[place] [address] Care Team Providers Care It Desktop Support Technician Name Role Phone Alethea Beal Primary Care Provider + Encounter Details Date Type Department Care Team (Late st Contact Info) Description 08/02/2018 10:30 AM EDT Office Visit Sleep Center at [facility] [address] [place] [address] Alley Johnson APRN [facility] [place] [address] CHEMA treated with BiPAP Social History Tobacco [...] Sign Reading Time Taken Comments Blood Pressure 129/71 08/02/2018 10:03 AM EDT Pulse 76 08/02/2018 10:03 AM EDT Temperature - - Respiratory Rate - - Oxygen Saturation 98% 08/02/2018 10:03 AM EDT Inhaled Oxygen Concentration - - Weight 84.8 kg (187 lb) 08/02/2018 10:03 AM EDT Height 162.6 cm (5' 4) 08/02/2018 10:03 AM EDT Body Mass Index 32.1 08/02/2018 10:03 AM EDT documented in this encounter Patient Instructions * Patient Instructions* Alley Johnson APRN - 08/02/2018 10:30 AM EDT Recommendations: --Continue BPAP pressures to 25/17cw --Consider the AirTouch F20 For Her Headgear (pink/purple) as I think it might fit her better and if she decides to continue on with this mask replacement --Consider changing out to either AirTouch F20 or Saranya View whenever insurance will cover new mask/cushion and headgear --Flonase is a nasal steroid, reduces nasal inflammation, and works when using after several days, it is not a decongestant --For nasal congestion: 1) Try adjusting PAP humidity level, 2) Consider OTC saline nasal spray: 2 sprays per nostril twice daily, before affixing mask in evening and after removing mask in morning --Driving safety discussed, recommend patient not drive if drowsy, if drowsy while driving, fur puller and take a nap. --Call our clinic if Dec 2018 for me to write script for replacement BPAP machine --After she receives replacement BPAP machine, please make appt with me for f/u compliance visit 60-90 days after machine setup documented in this encounter Progress Notes * Alley Johnson APRN - 08/02/2018 10:30 AM EDT Sleep Medicine Follow-Up Note HPI: Ms. Lindsey Mehta is a 67 y.o. female seen for follow-up of obstructive sleep apnea. Patient presents today for follow-up in PAP clinic. She was last seen in November 2017 and was to return for 3 month follow-up. Patient got a SoClean machine and loves it. HPI continues below. Sleep Study: 02/07/2008 at [facility] AHI: 28/hr, supine index was 29/hour Wt: 192.4lbs Titration at [facility] on 03/08/2008, Wt: 194.6lbs BPAP Titration 03/28/17, Wt: 214lbs Recommendations: 1. Trial of BIPAP /. Consider chinstrap if felt to be needed. 2. Follow up with her PCP as to the SVT noted of unclear significance. 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 to grievance manager, thinks it was medication; cardiology found lack of pulsein hip and feet, stent placed; ECHO from July 18, 2017 shows LVEF 65%) Treatment: BIPAP BPAP Auto 760P, setup 12/30/13 Pressure: 25/17 cm Tolerance: is now gluten free--reduced gas and better IBS; Interface: now Airtouch F20, small,; previously on Saranya View, size small--she could do either one;previous mask was Mirage Quattro but it left a cortney on her nose Fit: Well Chin strap: No, chin strap was tried in the past but she opened her mouth anyway Humidifier Setting: adjusts HCC: [facility]; getting supplies Snoring: Doesn't know, other person Dry Mouth: Sometimes, adjusts humidity; uses Biotene rinse, hasn't tried room humidifier Mouth Breathing: Yes, has FFM, breathes through her nose when she goes to sleep but probably mouth breathes at night Patient wears top dentures to sleep Daytime Symptoms: Patient-reported last 4 scores: [facility] 05/03/2016 02/06/2017 12/08/2017 08/02/2018 [place] [facility] 6 1 4 3 Insomnia Severity Index 7 (No clinically significant insomnia) 2 (No clinically significant insomnia) Incomplete 4 (No clinically significant insomnia) VR12 - Physical Component Summary 36.89 43.05 - - VR12 - Mental Component Summary 54.36 54.56 - - Nocturnal sleep quality improved: overall improved, but she is sleeping a lot lately Daytime symptoms improved (Daytime sleepiness/fatigue): yes, overall Naps: Less napping than at last visit but may lay down due to back pain OA Involuntary Dozing: no Sleepiness or Drowsiness when driving: drives, no drowsiness ROS: Constitutional: Weight is down 27 pounds since March 2017 sleep study ENT: Nasal Obstruction: On Zyrtec over the summer for seasonal allergies, uses Flonase PRN--educated on usage Resp: using nebulizer twice per day,Flovent BID, and uses inhaler 4x per day; increased SOB even atrest--no ECHO in past Sleep Pattern: Bedtime: 10:30p on TW and [...] than 20hrs per week passed in 2012 Patient Active Problem List Diagnosis Code ??? [...] Outpatient Prescriptions Marked as Taking for the 08/02/18 encounter (Office Visit) with Dariela Johnson APRN [...] Indications: Hypothyroidism ??? fluticasone (FLONASE) 50 mcg/actuation Morgan, Suspension 2 sprays by Each Nare route [...] 10-40) 10-40 mg per tablet Notable Medications: Niferex--her hemoglobin was low; taken for about two weeks Benedryl nightly for itching, does'n't make her sleepy Zyrtec, only during seasonal allergies Duonebs BID Flovent BID Flonase--only PRN Geodon BID, no change Celexa 40mg daily, takes at night Compliance Card Data: Date Range: 05/04/2018-08/01/18 Settin/17 cm Residual AHI: 2.3 Vibratory Snore Index: 0 % Night in Large Leak: 3.2% Average usage days used-Hours: 8 hrs 7 minutes # Days of usage: 90/90 100% % Days used > 4 hours 100% Previous Compliance Card Data: Date Range: 09/09/17-12/07/17 Settin/17 cm Residual AHI: 4.8 (LEFTY 2.1/OAI 1.3/OAI 1.3) Vibratory Snore Index: 0 % Night in Large Leak: 0.6% Average usage days used-Hours: 9 hrs 9 minutes # Days of usage: 89/90 % Days used > 4 hours 98%. Total % Days used 99% Physical Exam: BP 129/71 (BP Location (NBP): Left arm, Patient Position: Sitting, BP Cuff Sizes: Adult (25-34 cm)) Pulse 76 Ht 162.6 cm (5' 4) Wt 84.8 kg (187 lb) SpO2 98% BMI 32.1 kg/m2 General: F, NAD; weight is down about 17lbs Respirations: Even and not labored at rest DERM: Skin Irritation: None anymore on Saranya View Assessment Ms. Lindsey Mehta is a 67 y.o. female seen for obstructive sleep apnea. She is doing well on BPAP , has lost 27lbs since her 2017 sleep study and is tolerating pressures well. AHI is better controlled this visit. No SOB on BPAP at night. She is now using the AirTouch F20 but headgear is too big, tried on For Her headgear and fits much better. Order to [facility] for For Her headgearreplacements going forward in future. AirTouch mask is also too tight and irritating nasal bridge. Discussed proper mask fit and also using nasal bridge cloth if needed. Patient was also doing well with Saranya View and discussed that when she is eligible for supplies she can choose either mask. Reviewed dry mouth remedies. Reviewed how to use Flonase (it is not a decongestant) if allergies. Humidifier/Heater function/rational and settings were reviewed with the patient along with supply replacement. Mr. Mehta has lost 27lbs since her 2017 sleep study. She no longer has daytime sleepiness and mood is good since I last saw her. She would like to receive a replacement BPAP machine in Dec 2018 when eligible. She can call our clinic, I can place order, then we will need compliance visit 60-90 days after replacement setup. Plan/all recommendations below. Recommendations: --Continue BPAP pressures to 25/17cw --Consider the AirTouch F20 For Her Headgear (pink/purple) as I think it might fit her better and if she decides to continue on with this mask replacement --Consider changing out to either AirTouch F20 or Saranya View whenever insurance will cover new mask/cushion and headgear --Flonase is a nasal steroid, reduces nasal inflammation, and works when using after several days, it is not a decongestant --For nasal congestion: 1) Try adjusting PAP humidity level, 2) Consider OTC saline nasal spray: 2 sprays per nostril twice daily, before affixing mask in evening and after removing mask in morning --Driving safety discussed, recommend patient not drive if drowsy, if drowsy while driving, fur puller and take a nap. --Call our clinic if Dec 2018 for me to write script for replacement BPAP machine --After she receives replacement BPAP machine, please make appt with me for f/u compliance visit 60-90 days after machine setup The patient indicates understanding of these issues and agrees with the plan. Alley Johnson APRN Cc: RITA Hamilton documented in this encounter Plan of Treatment Upcoming Encounters Date Type Department Care Team (Late st Contact Info) Description 02/06/2025 2:40 PM EDT Office Visit Cardiology at [address] [place] [address] Rigoberto Diaz MD [facility] [place] [address] Scheduled Procedures Name Priority Associated Diagnoses Date/Ti me EGD, UPPER GI ENDOSCOPY (WRV U 2.09) Incontinence of feces, unspecified fecal incontinence type Dysphagia, unspecified type COLONOSCOPY, DIAGNOSTIC (WRV U 3.26) Incontinence of feces, unspecified fecal incontinence type Dysphagia, unspecified type documented as of this encounter Visit Diagnoses Diagnosis CHEMA treated with BiPAP documented in this encounter Care Teams It Desktop Support Technician Relationship Specialty Start Date End Date Alethea Beal PA PCP - General Orthopaedic Surgery 01/01/18 09/26/18 documented as of this encounter
--- OUTSIDE RECORDS SUMMARY | 2024-06-14 01:49 | XMS_ITS | Encounter Summary ---
Author Organization [facility] [place] [address] Care Team Providers Care Professor Of Anthropology Name Role Phone None Primary Care Provider Unavailabl e Encounter Details Date Type Department Care Team (Late st Contact Info) Description 01/04/2019 Telephone Sleep Center at [facility] [address] [place] [phone] Lori Miller Social History Tobacco Use Types Packs/Day Years [...] PM EDT Office Visit Cardiology at [address] [place] [phone] Rigoberto Diaz MD [facility] [address] Scheduled Procedures Name Priority Associated Diagnoses Date/Ti me EGD, UPPER GI ENDOSCOPY (WRV U 2.09) Incontinence of feces, unspecified fecal incontinence type Dysphagia, unspecified type COLONOSCOPY, DIAGNOSTIC (WRV U 3.26) Incontinence of feces, unspecified fecal incontinence type Dysphagia, unspecified type documented as of this encounter Visit Diagnoses Not on filedocumented in this encounter Care Teams Professor Of Anthropology Relationship Specialty Start Date End Date None None PCP - General 09/27/18 02/26/19 documented as of this encounter
--- OUTSIDE RECORDS SUMMARY | 2024-06-14 01:49 | XMS_ITS | Encounter Summary ---
[place] [address] Care Team Providers Care Armature Inspector Name Role Phone Charles MixDemetra barraza Garret SPARROW Primary Care Provider [phone] Reason for Visit * Auth/Cert Specialty Diagnoses [...] Expiration Date Visits Re quested Visits Authorized [id number] 1 1 Encounter Details Date Type Department Care Team (Late st Contact Info) Description 08/15/2017 7:27 AM EDT Anesthesia Event [place] [phone] Abdelrahman Ordonez MD [facility] [place] [address] Rodolfo Monroe MD [facility] [place] [address] Anesthesia Record Procedure Summary Procedure Name Responsible Anesthesiologist Anesthesia Start Time Anesthesia Stop Time REVSC OPN\PRQ ILIAC ART W\STNT PLMT & ANGIOP SAME VSL (WRVU 9.75) (Bilateral: Groin) Abdelrahman Ordonez MD 08/15/17 0727 08/15/17 1134 Events Date Time Event Comment 08/15/2017 0727 0727 Start 0729 AN Verify 0729 An Start Data 0738 An Induction 0740 An Intubation 0802 Anesthesia Ready 0806 ABG Data Arterial Blood Gas result: pH pCO2 pO2 %O2 Sat FiO2 HCO3 BE Hb K Glucose Lactate 0833 Procedure Start 1130 Extubation/LMA Out 1134 an stop data 1134 Recovery or ICU Handoff Dasha ent care was transferred to the destination unit staff after review of the patient's medical history, current anesthetic/surgical status and plan, according to the Provider Handoff Checklist. 1134 Stop Meds Name Total Midazolam 2 mg fentaNYL 100 mcg Propofol 350 mg Rocuronium 100 mg PHENYLephrine 120 mcg Heparin 11,000 Units Protamine 30 mg Ondansetron 8 mg Neostigmine 5 mg Glycopyrrolate 0.8 mg Esmolol 50 mg ceFAZolin 4 g PHENYLephrine INF 6,070 mcg HYDROmorphone 1 mg Labetalol 12.5 mg Sodium Chloride 0.9% 1,100 mL Lactated Ringers 800 mL * Agents Name O2 Air N2O Sevoflurane (et) * Blood No blood administrations on file. Lines, Drains, and Airways Type Details Placement Removal Incision 02/18/13; abdomen; 07/25/22 (LDA cleanup utility RA#[id number]); 1715 (LDA cleanup utility RA#[id number]) 02/18/13 0000 by Johanna Srinivasan RN 07/25/22 1715 by Reece Moeller (RETIRED) Peripheral IV Line - Single Lumen 08/15/17; 0630; metacarpal vein (top of hand), left; oouf-bvn-yglqux catheter system; 20 gauge, 1 in length; sue kinsey RN; intradermal injection, tolerated well, appears comfortable; 08/17/17; 0859 08/15/17 0630 by Sue Kinsey RN 08/17/17 0859 by Neelam Hernández, RN ETT Mask Ventilation: Ea cesario (1); ETT Type: Cuffed, Oral; ETT Size: 7.5 mm; Mac Blade: 3; Notes: Asleep, Pre-O2; Attempts: 1; Laryngoscopy Grade: 1; ETT Placement Verified By: Auscultation, Capnometry, Visual; Secured at Teeth: 22 cm; Inserted by: eduard; Removal Date: 08/15/17; Removal Time: 1130 08/15/17 0745 by Rodolfo Monroe MD 08/15/17 1130 by Rodolfo Monroe MD Urethral Catheter 08/15/17; 0745; Surg jacqueline longer than 2 hours, Physician order; Physician order; indwelling catheter with core temperature probe; silicone coated; 14; inserted at this facility; 1; 5; 10; none; drainage bag to dependent drainage; 08/16/17; 0702 08/15/17 0745 by Joceline Maldonado RN 08/16/17 0702 by Teri Shin, RN (RETIRED) Peripheral IV Line - Single Lumen 08/15/17; 0810; wwia-vvi-dqguvz catheter system; 16 gauge; eduard; median vein (underside of arm), right; 08/17/17; 0858 08/15/17 0810 by Rodolfo Monroe MD 08/17/17 0858 by Neelam Hernández RN Arterial Line 08/15/17; 0810; radi al artery, right; 20 gauge; eduard; Sterile Prep, Sterile Gloves; no longer indicated, catheter intact; 08/15/17; 1350 08/15/17 0810 by Rodolfo Monroe MD 08/15/17 1350 by Samantha Jacobo RN Incision 08/15/17; 0834; groi n; vertical; 07/25/22 (LDA cleanup utility RA#[id number]); 1715 (LDA cleanup utility RA#[id number]) 08/15/17 0834 by Joceline Maldonado RN 07/25/22 1715 by Reece Moeller Incision 08/15/17; 0943; groi n; other (see comments); Percutaneous puncture for endovascular surgery; 07/25/22 (LDA cleanup utility RA#[id number]); 1715 (LDA cleanup utility RA#[id number]) 08/15/17 0943 by Joceline Maldonado RN 07/25/22 1715 by Reece Moeller documented [...] OR Notes * Anesthesia Postprocedure Evaluation - Abdelrahman Ordonez MD - 08/16/2017 9:53 AM EDT [facility] Department of Anesthesiology Post-procedure Note Patient: Lindsey Deleon Procedure Summary Date Anesthesia Start Anesthesia Stop Room / Location 08/15/17 0727 1134 [facility] OR 15 / [facility] MAIN OR Procedure Diagnosis Surgeon Responsible Provider REVSC OPN\PRQ ILIAC ART W\STNT PLMT & ANGIOP SAME VSL (WRVU 10) (Bilateral Groin); @ENDARTERECTOMY, ILIOFEMORAL W OR W/O PATCH GRAFT (WRVU 19.86) (Left ); AORTOGRAPHY, ABD. + AYAAN. ILIOFEMORAL LE BY SERIALOGRAPHY S & I (WRVU 1.79) (N/A ); CATHETER PLACEMENT, SELECTIVE FIRST ORDER IN ARTERIALSYSTEM, EACH FIRST ORDER ABDOMINAL, PELVIC, OR LOWER EXTREMITY ARTERY BRANCH,WITHIN A VASCULAR FAMILY (WRVU 4.9) (Abdomen) Claudication in peripheral vascular disease (claudication) Jake Montaño MD Trum[place], John M, MD All Anesthesia Providers: Anesthesiologist: Abdelrahman Ordonez MD Lathe Spotter: Rodolfo Monroe MD Most Recent Vitals: 08/16/17 0741 BP: 149/72 Pulse: Resp: 16 Temp: 36.9 ??C (98.4 ??F) SpO2: 95% Pain Patient Location: PACU/SDP Level of Consciousness: Awake and Alert Pain Management: Satisfactory Analgesia PONV: None Cardiovascular Status: At Baseline and Hemodynamically Stable Respiratory Status: Supplemental O2 (NC or FM) Postoperative Fluid Status: Intravascular EUvolemia Possible Anesthetic Complications: NONE apparent at time of evaluation Final Primary Anesthesia Type: General (The anesthetic type performed was the same as planned.) Comments: ABDELRAHMAN ORDONEZ MD * Anesthesia Preprocedure Evaluation - Rodolfo Monroe MD - 08/14/2017 4:12 PM EDT Pre-Anesthesia Evaluation for: Lindsey Deleon a 66 y.o. female. Procedure(s): @ENDARTERECTOMY, COMMON FEMORAL W OR W/O PATCH GRAFT (WRVU 15.31) REVSC OPN\PRQ ILIAC ART W\STNT PLMT & ANGIOP SAME VSL (WRVU 10) Patient Active Problem List Diagnosis ??? Claudication in peripheral vascular disease ??? Obesity (BMI 30-39.9) ??? Atherosclerotic PVD with intermittent claudication ??? Asthma ??? Seasonal allergic rhinitis ??? Hypothyroidism ??? IBS (irritable bowel syndrome) ??? Constipation ??? GERD (gastroesophageal reflux disease) ??? HTN (hypertension) ??? Hypercholesteremia ??? Rheumatoid arthritis(714.0) ??? Depression ??? Emphysema ??? Macular degeneration ??? CHEMA (obstructive sleep apnea) Past Medical History: Diagnosis Date ??? Asthma 02/06/2017 ??? COPD (chronic obstructive pulmonary disease) Emphysema, scheduled and prn inhalers, has not used prn inhaler in months. Able to climb one flightof starirs without SOB. No home O2. ??? GERD (gastroesophageal reflux disease) food regurgitation, burning, not well controlled ??? Hypertension well controlled on medication Past Surgical History: Procedure Laterality Date ??? CHOLECYSTECTOMY ??? PRO COLONOSCOPY, DIAGNOSTIC 12/06/2012 COLONOSCOPY, DIAGNOSTIC performed by Mik Dumont MD at [facility] ENDOSCOPY ??? PRO LAPAROSCOPY, SURG, REPAIR PARAESOPHAGEAL HERNIA, W/O IMPLANTATION OF MESH 02/18/2013 LAPAROSCOPIC PARAESOPHAGEAL HERNIA REPAIR W/FUNDOPLASTY, W/O MESH performed by Moncho Bowers MD at [facility] MAIN OR ??? PRO UPPER GI ENDOSCOPY, BIOPSY 12/06/2012 EGD WITH BIOPSY performed by Mik Dumont MD at [facility] ENDOSCOPY ??? TUBAL LIGATION Social History Substance Use Topics ??? Smoking status: Former Smoker Packs/day: 3.50 Years: 50.00 Types: Cigarettes Quit date: 10/21/2004 ??? Smokeless tobacco: Never Used ??? Alcohol use No History Drug Use Not on file Allergies Allergen Reactions ??? Latex Itching ??? Hemorrhoid Cream [Tissue Resp Fact-Shark Fadumo Oil] Other (See Comments) Bleeding ??? Kaopectate [Bismuth Subsalicylate] Other (See Comments) Rectal Bleeding Medications: MAR and/or home medications have been reviewed. Physical Exam: There were no vitals filed for this visit. There is no height or weight on file to calculate BMI. Anesthesia Physical Exam Anesthesia Plan: ASA 3 general, with a(n) intravenous induction Prelim Note Lindsey Deleon is a 66 year old female presenting for femoral endarterectomy. PMH includes PVD with claudication, obesity, asthma, GERD, HTN (controlled), HLD, RA, emphysema/COPD (prn inhalers not used recenetly), and CHEMA. Meds: zyrtec, hctz, lisinopril, synthroid, citalopram, aspirin, ziprasidone, flovent, albuterol Allergies: Latex causes itching SH: former 50 pack year smoker Labs: WBC 10.6, Hgb 12.8, Plt 235, Na 142, K 4.0, BUN/Cr 13/1.01 ECHO pharm stress test: ?? Base line EF 65, max HR 134 (88%), no chest pain during dobutamine infusion, negative for ischemia Anesth history: no issues with anesthesia in the past, prior hernia repair without issue, grade 1 view 1 attempt tolerated 7.0 ett Plan GETA Second large bore IV A line Informed Consent: PAT Staff Note documented in this encounter Plan of Treatment Upcoming Encounters Date Type Department Care Team (Late st Contact Info) Description 02/06/2025 2:40 PM EDT Office Visit Cardiology at [address] [place] [address] Rigoberto Diaz MD [place] [address] Scheduled Procedures Name Priority Associated Diagnoses Date/Ti [...] Action Date Dose Rate Site ceFAZolin (ANCEF) 1g in dextrose 5% 50mL PRN, Starting on Mon08/15/17 at 0810, Until Mon08/15/17 at 1134, Administer over 30 Minutes, Anesthesia Intra-op Given 08/15/2017 11:07 AM EDT 2 g Given 08/15/2017 8:10 AM EDT 2 g esmolol (BREVIBLOC) injection PRN, Starting on Mon08/15/17 at 0738, Until Mon08/15/17 at 1134, Anesthesia Intra-op, Routine Given 08/15/2017 7:58 AM EDT 20 mg Given 08/15/2017 7:38 AM EDT 30 mg fentaNYL 50 mcg/mL multi-dose injection PRN, Starting on Mon08/15/17 at 0733, Until Mon08/15/17 at 1134, Pain, Anesthesia Intra-op, Routine Given 08/15/2017 7:33 AM EDT 100 mcg glycopyrrolate (ROBINUL) multi-dose injection PRN, Starting on Mon08/15/17 at 1051, Until Mon08/15/17 at 1134, Anesthesia Intra-op, Routine Given 08/15/2017 10:51 AM EDT 0.8 mg heparin (porcine) injection PRN, Starting on Mon08/15/17 at 0902, Until Mon08/15/17 at 1134, Anesthesia Intra-op, Routine Given 08/15/2017 10:11 AM EDT 3,000 Units Given 08/15/2017 9:46 AM EDT 1,000 Units Given 08/15/2017 9:02 AM EDT 7,000 Units HYDROmorphone (DILAUDID) injection PRN, Starting on Mon08/15/17 at 0840, Until Mon08/15/17 at 1134, Pain, Anesthesia Intra-op, Routine Given 08/15/2017 8:50 AM EDT 0.4 mg Given 08/15/2017 8:40 AM EDT 0.6 mg labetalol (NORMODYNE,TRANDATE) multi-dose injection PRN, Starting on Mon08/15/17 at 0853, Until Mon08/15/17 at 1134, High Blood Pressure, Anesthesia Intra-op, Routine Given 08/15/2017 10:52 AM EDT 2.5 mg Given 08/15/2017 8:53 AM EDT 10 mg lactated Ringers infusion CONTINUOUS PRN, Starting on Mon08/15/17 at 0727, Until Mon08/15/17 at 1134, Anesthesia Intra-op New Bag 08/15/2017 7:27 AM EDT midazolam (PF) (VERSED) 1 mg/mL multi-dose injection PRN, Starting on Mon08/15/17 at 0729, Until Mon08/15/17 at 1134, Sleep, Anesthesia Intra-op, Routine Given 08/15/2017 7:29 AM EDT 2 mg neostigmine (BLOXIVERZ) injection PRN, Starting on Mon08/15/17 at 1051, Until Mon08/15/17 at 1134, Anesthesia Intra-op, Routine Given 08/15/2017 10:51 AM EDT 5 mg ondansetron (ZOFRAN) injection PRN, Starting on Mon08/15/17 at 1045, Until Mon08/15/17 at 1134, Nausea, Anesthesia Intra-op, Routine Given 08/15/2017 10:45 AM EDT 8 mg PHENYLephrine (JOSELUIS-SYNEPHRINE) 20 mg in sodium chloride 250 mL (standard ADULT & Shaun greater than 20kg) infusion CONTINUOUS PRN, Starting on Mon08/15/17 at 0747, Until Mon08/15/17 at 1134, Anesthesia Intra-op, Routine Restarted 08/15/2017 11:03 AM EDT 20 mcg/min 15 mL/hr Rate/Dose Change 08/15/2017 10:46 AM EDT 20 mcg/min 15 mL/ hr Rate/Dose Change 08/15/2017 9:39 AM EDT 30 mcg/min 22.5 mL /hr PHENYLephrine HCl in NS (PF) (JOSELUIS-SYNEPHRINE) 0.8 mg/10 mL (80 mcg/mL) multi-dose injection Syrg PRN, Starting on Mon08/15/17 at 1102, Until Mon08/15/17 at 1134, Anesthesia Intra-op, Routine Given 08/15/2017 11:02 AM EDT 80 mcg Given 08/15/2017 10:57 AM EDT 40 mcg propofol (DIPRIVAN) 10 mg/mL bolus injection (Anesthesia) PRN, Starting on Mon08/15/17 at 0738, Until Mon08/15/17 at 1134, Anesthesia Intra-op Given 08/15/2017 8:57 AM EDT 100 mg Given 08/15/2017 7:58 AM EDT 100 mg Given 08/15/2017 7:38 AM EDT 150 mg protamine injection PRN, Starting on Mon08/15/17 at 1037, Until Mon08/15/17 at 1134, Anesthesia Intra-op, Routine Given 08/15/2017 10:37 AM EDT 30 mg rocuronium (ZEMURON) multi-dose injection PRN, Starting on Mon08/15/17 at 0738, Until Mon08/15/17 at 1134, Anesthesia Intra-op, Routine Given 08/15/2017 10:15 AM EDT 30 mg Given 08/15/2017 7:38 AM EDT 70 mg sodium chloride 0.9% infusion CONTINUOUS PRN, Starting on Mon08/15/17 at 0727, Until Mon08/15/17 at 1134, Anesthesia Intra-op New Bag 08/15/2017 7:27 AM E DT documented in this encounter Care Teams Armature Inspector Relationship Specialty Start Date End Date Demetra Goff APRN PCP - General 10/19/12 12/31/17 documented as of this encounter
--- OUTSIDE RECORDS SUMMARY | 2024-06-14 01:49 | XMS_ITS | Encounter Summary ---
[place] [address] Care Team Providers Care Fruit Washer Name Role Phone None Primary Care Provider Unavailabl e Encounter Details Date Type Department Care Team (Late st Contact Info) Description 12/31/2018 Orders Only Sleep Center at [facility] [address] [place] [address] Alley Johnson, PLUMBING ASSEMBLER INSTALLER [facility] DR [place] [address] CHEMA treated with BiPAP Social History Tobacco [...] of this encounter Progress Notes * Alley Johnson, KYARA - 12/31/2018 4:40 PM EST Patient eligible for replacement BPAP machine. Placed order today to [facility], [place]. She will need call for BPAP compliance 61-91 days after machine setup. ALLEY JOHNSON APRN documented in this encounter Plan of Treatment Upcoming Encounters Date Type Department Care Team (Late st Contact Info) Description 02/06/2025 2:40 PM EDT Office Visit Cardiology at [address] [place] [address] Rigoberto Diaz MD [facility] [place] [address] Scheduled Procedures Name Priority Associated Diagnoses Date/Ti me EGD, UPPER GI ENDOSCOPY (WRV U 2.09) Incontinence of feces, unspecified fecal incontinence type Dysphagia, unspecified type COLONOSCOPY, DIAGNOSTIC (WRV U 3.26) Incontinence of feces, unspecified fecal incontinence type Dysphagia, unspecified type documented as of this encounter Visit Diagnoses Diagnosis CHEMA treated with BiPAP documented in this encounter Care Teams Fruit Washer Relationship Specialty Start Date End Date None None PCP - General 09/27/18 02/26/19 documented as of this encounter
--- OUTSIDE RECORDS SUMMARY | 2024-06-14 01:49 | XMS_ITS | Encounter Summary ---
[place] [address] Care Team Providers Care Scale Operator Name Role Phone Demetra Goff APRN Primary Care Provider [phone] Encounter Details Date Type Department Care Team (Late st Contact Info) Description 08/17/2017 Orders [place] [address] Ella Marino [facility] [place] [address] Social History Tobacco Use Types Packs/Day Years [...] PM EDT Office Visit Cardiology at [address] [address] Rigoberto Diaz MD [facility] [place] [address] Scheduled Procedures Name Priority Associated Diagnoses Date/Ti me EGD, UPPER GI ENDOSCOPY (WRV U 2.09) Incontinence of feces, unspecified fecal incontinence type Dysphagia, unspecified type COLONOSCOPY, DIAGNOSTIC (WRV U 3.26) Incontinence of feces, unspecified fecal incontinence type Dysphagia, unspecified type documented as of this encounter Visit Diagnoses Not on filedocumented in this encounter Care Teams Scale Operator Relationship Specialty Start Date End Date Demetra Goff APRN PCP - General 10/19/12 12/31/17 documented as of this encounter
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
--- OUTSIDE RECORDS SUMMARY | 2024-06-14 01:50 | XMS_ITS | Encounter Summary ---
[place] [address] Care Team Providers Care Progressive Die Maker Name Role Phone Demetra Goff APRN Primary Care Provider [phone] Encounter Details Date Type Department Care Team (Late st Contact Info) Description 02/06/2017 Orders Only Sleep Center at [facility] [address] [place] [address] Alley Johnson APRN [facility] [place] [address] Social History Tobacco Use Types Packs/Day Years [...] Progress Notes * Alley Johnson APRN - 02/06/2017 2:36 PM EDT Polysomnogram Order Form Room # Technologist Assignment: To be read by on PSG Patient Information: Date of Study: Name: Lindsey Mehta (66 y.o. female) : 1950 Ht Readings from Last 1 Encounters: 02/06/17 162.6 cm (5' 4) Wt Readings from Last 1 Encounters: 02/06/17 96.2 kg (212 lb) Normal Sleep Hours: 9p-6a Arrival Time: Physical/Mobility Limitations: No Cognitive Limitations: No Requires Male Tech: No Requires Female Tech: No Requires 1:1 Care: No Requires Parent/Caregiver: No Home Oxygen Useage: No At Home, Sleeps in a: Bed with one pillow PSG Indications: CHEMA on BPAP, snoring, increased SOB daytime and sometimes nocturnal Other Medical Conditions: Emphysema, asthma, HTN, GERD, RA, depression, hypothyroidism, IBS PSG Orders Type of Study: BPAP titration, start at 18/12 Additional Data Required: na Special Instructions: Patient uses Saranya View, small; o Start OFF oxygen. If SpO2 <= 88% for 10 consecutive minutes and CMS AHI < 10, add oxygen at1 L/min and titrate to keep SpO2 > 90%. o If split, start OFF oxygen and titrate PAP to control obstruction. Then use same criteria to add and titrate O2. o If immediate and severe desats (ie: sustained in 70's), okay to add oxygen sooner. documented in this encounter Plan of Treatment Upcoming Encounters Date Type Department Care Team (Late st Contact Info) Description 02/06/2025 2:40 PM EDT Office Visit Cardiology at [address] [address] Rigoberto Diaz MD [facility] [place] [address] Scheduled Procedures Name Priority Associated Diagnoses Date/Ti me EGD, UPPER GI ENDOSCOPY (WRV U 2.09) Incontinence of feces, unspecified fecal incontinence type Dysphagia, unspecified type COLONOSCOPY, DIAGNOSTIC (WRV U 3.26) Incontinence of feces, unspecified fecal incontinence type Dysphagia, unspecified type documented as of this encounter Visit Diagnoses Not on filedocumented in this encounter Care Teams Progressive Die Maker Relationship Specialty Start Date End Date Demetra Goff APRN PCP - General 10/19/12 12/31/17 documented as of this encounter
--- OUTSIDE RECORDS SUMMARY | 2024-06-14 01:50 | XMS_ITS | Encounter Summary ---
Author Organization [facility] Address [facility] [place] [address] Care Team Providers Care School Speech Therapist Name Role Phone Demetra Goff APRN Primary Care Provider [phone] Reason for Visit * Consultation (Routine) - Closed Specialty Diagnoses / Procedures Referred By Emy castillo Referred To Contact Cardiology Diagnoses Hx of SVT, Paroxysmal Procedures Per sleep study at [facility] [place] Vance Loving PA [address] [place] [address] [facility] [address] [place] [phone] Referral ID Status Reason Start Date Expiration Date V isits Requested Visits Authorized [id number] Closed Consult, Test & Treat Connection Center 05/05/2017 05/05/2018 1 1 Encounter Details Date Type Department Care Team (Late st Contact Info) Description 05/31/2017 3:20 PM EDT Office Visit Cardiology at [address] [address] Abdelrahman Frausto MD [facility] DR C[place]IOLOG[place] [address] SVT (supraventricular tachycardia); Intermittent claudication Social History Tobacco Use Types [...] Sign Reading Time Taken Comments Blood Pressure 150/80 05/31/2017 3:05 PM EDT Pulse 85 05/31/2017 3:05 PM EDT Temperature - - Respiratory Rate - - Oxygen Saturation 93% 05/31/2017 3:05 PM EDT room air Inhaled Oxygen Concentration - - Weight 93 kg (205 lb) 05/31/2017 3:05 PM EDT Height 162.6 cm (5' 4) 05/31/2017 3:05 PM EDT Body Mass Index 35.19 05/31/2017 3:05 PM EDT documented in this encounter Progress Notes * Abdelrahman Frausto MD - 05/31/2017 3:20 PM EDT Cardiology Staff This 66-year-old woman is referred for evaluation of nonsustained supraventricular tachycardia. Chief Complaint/HPI: Ms. Deleon has no prior known cardiac disease and has no symptoms to suggestarrhythmia: Specifically, she has not noted palpitations, lightheadedness, syncope or presyncope. She does have medical issues as delineated below. One of these is sleep apnea; recently she was evaluated in our sleep center for follow-up study and during polysomnography she was seen to have 2 runs of supraventricular tachycardia. I have been able to review one of the strips which lasted for 11 beats at a rate I would estimate between 120 and 150. This is a narrow complex regular rhythm without discernible P waves in the suboptimal tracing. The patient had no symptoms but was referred for evaluation. On questioning, she does recall experiencing considerable fatigue several months ago and at that point she says a thyroid test showed an abnormal thyroid level. She was placed on [id number] ??g daily which she has been taking in a stable dose. She doesn't recall having thyroid testing in follow-up after being placed on this medication. She has no known history of coronary disease. However, risk factors for coronary disease include a two-year history of hypertension. She also has hyperlipidemia and has been treating this with Vytorin. She has no personal history of diabetes. She was a very heavy smoker, smoking 3 packs a day, but quit in 2003. Her father had myocardial infarction initially at age 36 and subsequently at age 52 with a combination of cirrhosis and heart disease. There is some heart disease in maternal relatives but not in her mother. She has no siblings. Past Medical Hx: As below. She also does have obesity and apparently has had an ophthalmologic condition with what sounds like a migraine equivalent superimposed on macular degeneration which has ledto a recommendation that she take full dose aspirin. She's been doing this for a number of years. She was told at the time of community based screening testing not long ago that she has evidence for poor circulation in her legs. Patient Active Problem List Diagnosis Code ??? CHEMA (obstructive sleep apnea) G47.33 ??? GERD (gastroesophageal reflux disease) K21.9 ??? HTN (hypertension) I10 ??? Hypercholesteremia E78.00 ??? Rheumatoid arthritis M06.9 ??? Depression F32.9 ??? Emphysema J43.9 ??? Macular degeneration H35.30 ??? IBS (irritable bowel syndrome) K58.9 ??? Constipation K59.00 ??? Seasonal allergic rhinitis J30.2 ??? Hypothyroidism E03.9 ??? Asthma J45.909 Outpatient Prescriptions Marked as Taking for the 05/31/17 encounter (Office Visit) with Abdelrahman Frausto MD Medication Sig Dispense Refill ??? fluticasone (FLOVENT) 110 mcg/actuation HFA Aerosol Inhaler Inhale 1 puff into the lungs 2 times daily. ??? hydroCHLOROthiazide (MICROZIDE) 12.5 mg Capsule Take 12.5 mg by mouth daily. ??? lisinopril (PRINIVIL;ZESTRIL) 10 mg Tablet Take 10 mg by mouth daily. ??? melatonin 5 mg Tablet Take by mouth. ??? levothyroxine (SYNTHROID) 50 mcg Tablet Take 50 mcg by mouth daily. Indications: Hypothyroidism ??? fluticasone (FLONASE) 50 mcg/actuation [place], Suspension 2 sprays by Each Nare route daily as needed for Rhinitis. 16 g 3 ??? loratadine (CLARITIN) 10 mg tablet Take 10 mg by mouth daily. ??? Orrington-3 Fatty Acids 500 mg Cap Take by mouth. ??? multivitamin (THERAGRAN) tablet Take 1 tablet [...] ezetimibe-simvastatin (VYTORIN 10-40) 10-40 mg per tablet Allergies Allergen Reactions ??? Latex Itching Family Hx: Notable for early heart disease in her father as above. There is no family history of aneurysm. Her mother had emphysema and eventually with community-acquired pneumonia by description. 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 She is currently livingwith an individual who is slightly younger but who has also required assistance for a mental healthdisorder and disability. The patient has been 4x; she was on the first 3 of these occasions and all 3 of those husbands subsequently . Her fourth 4 years ago after 9 years of marriage. She has 2 children from her first 2 marriages; a daughter who lives in [facility] and a son who works for the [employer] and lives in [place] near [facility]. Habits: She quit smoking in 2003 as above. She does not drink alcohol. She does not have a regular exercise habit but recently joined a gym in hopes of beginning one. Review of Systems Constitution: Positive for malaise/fatigue. Negative for fever, weakness, night sweats and weight loss. Eyes: Negative for blurred vision and double vision. Cardiovascular: Positive for chest pain and dyspnea on exertion. Respiratory: Positive for cough. Negative for hemoptysis and sleep disturbances due to breathing. Skin: Negative for rash. Musculoskeletal: Positive for joint pain. Gastrointestinal: Positive for constipation and diarrhea. Negative for abdominal pain, dysphagia and hematochezia. Genitourinary: Positive for frequency. Negative for dysuria. Neurological: Negative for dizziness and light-headedness. Psychiatric/Behavioral: Positive for depression. Negative for suicidal ideas. The patient is not nervous/anxious. Physical Exam: Vitals: 05/31/17 1505 BP: 150/80 Pulse: 85 SpO2: 93% Weight: 93 kg (205 lb) Height: 162.6 cm (5' 4) She is an obese woman who is in no distress. HEENT exam is notable for very small but reactive pupils and intact extraocular muscles. No scleral icterus. Her oropharynx is clear and moist but she is edentulous with upper dentures only. Her venous pressure is probably normal. I cannot appreciate anycarotid bruits. Her lungs are notable for a few bibasilar crackles. Otherwise clear. On cardiac exam she has a regular rhythm without murmur or gallop but there is accentuated and persistent splitting of the second sound. Her abdomen is obese. No organomegaly appreciated. No abdominal bruits but femoral pulses are only 1+ bilaterally and she does have bilateral femoral artery bruits. Her calves show a slight degree of muscle wasting. Dorsalis pedis pulses are palpable at trace to 1+ bilaterallybut I cannot appreciate any posterior tibialis pulses. The feet are warm and well-perfused. No clubbing or cyanosis. No edema. Neurologic exam is not performed in detail but is grossly nonfocal. EKG: Sinus rhythm at 65 bpm with a right bundle branch block. The tracing is otherwise unremarkablealthough there is early transition of the R (as opposed to the R') wave across the precordium. Impression and Recommendations: ?? Asymptomatic brief runs of supraventricular tachycardia in this 66-year-old woman are likely of little if any clinical significance. I don't believe we need to pursue further workup at this juncture other than to confirm that her thyroid replacement dose is appropriate. TSH will be obtained today. ?? She has classic symptoms of claudication and physical exam evidence for significant peripheral artery disease on a background of heavy cigarette use. ABIs will be checked and if they are significantly abnormal it may be appropriate to refer her for vascular surgery evaluation. ?? Follow-up will be prn. ABDELRAHMAN FRAUSTO MD Addendum: TSH minimally elevated at 4.38. Would not pursue further. JEJ documented in this encounter Plan of Treatment Upcoming Encounters Date Type Department Care Team (Late st Contact Info) Description 02/06/2025 2:40 PM EDT Office Visit Cardiology at [address] [place] [address] Rigoberto Diaz MD [facility] [place] [address] Scheduled Procedures Name Priority Associated Diagnoses Date/Ti me EGD, UPPER GI ENDOSCOPY (WRV U 2.09) Incontinence of feces, unspecified fecal incontinence type Dysphagia, unspecified type COLONOSCOPY, DIAGNOSTIC (WRV U 3.26) Incontinence of feces, unspecified fecal incontinence type Dysphagia, unspecified type documented as of this encounter Procedures Procedure Name Priority Date/Time Associated Diagnosis Comments TSH Routine 05/31/2017 5:04 PM EDT SVT (supraventricular tachycardia) EKG 12-LEAD Routine 05/31/2017 4:17 PM EDT SVT (supraventricular tachycardia) documented in this encounter Results * MARIYA, legs, multiple levels (06/05/2017 10:46 AM EDT) VB Text Report Department: Vascular Surgery Lab Patient: [id number] (DELEONOBDULIA MURILLOSA) CPT: 07377 ICD10: I73.9 Referring Physician: ABDELRAHMAN FRAUSTO ?? Indications: Bilateral claudication Diabetes mellitus: no ICD10 Diagnosis Code: I73.9 Findings: Right ?Pressure (mm Hg) ?? MARIYA ??Waveform ? Brachial Artery ?128 ? Common Femoral Artery ?Monophasic ?? Pop Fossa ?Monophasic ?? Dorsalis Pedis (Ankle) Artery ?62 ?0.48 ??Monophasic ?? Posterior Tibial (Ankle) Artery ??82 ?0.64 ??Monophasic ?? Left ? Pressure (mm Hg) ?? MARIYA ??Waveform ? Brachial Artery ?127 ? Common Femoral Artery ?Monophasic ? Pop Fossa ?Triphasic ? Dorsalis Pedis (Ankle) Artery ?62 ?0.48 ??York-Biphasic ?? Posterior Tibial (Ankle) Artery ??87 ?0.68 ??York-Biphasic ?? Interpretation: RIGHT: Moderate to moderately severe lower extremity arterial occlusive disease. Findings consistent with aortic/iliac disease. LEFT: Moderate to moderately severe lower extremity arterial occlusive disease. Findings consistent with aortic/iliac disease and Mild tibial disease. Comparison: ??No previous study in our vascular lab database for comparison. Electronically Signed by: MARY ANN FISHER on 2017-06-05 06:10:54 PM [facility] VB Text Report End of Report [facility] 06/05/2017 10:4 6 AM EDT Abdelrahman Frausto MD VASCULAR ORDERABLES Performing Organization Address [facility] Co de Phone Number [facility] * (ABNORMAL) TSH (05/31/2017 5:04 PM EDT) TSH 4.38(H) 0.27 - 4.20 mlU/ML [facility] Blood specimen (specimen) 05/31/2017 5:04 PM EDT 05/31/2017 5:40 PM EDT Narrative Resulting Agency Comment Spec In Lab Abdelrahman Frausto MD CHEMISTRY ORDERABLES Performing Organization Address [facility] Co de Phone Number [facility] [place] [address] * EKG 12 Lead (05/31/2017 4:17 PM EDT) Ventricular rate 65 BPM MUSE SYSTEM Atrial Rate 65 BPM MUSE SYSTEM P-R Interval 150 ms MUSE SYSTEM QRS Duration 124 ms MUSE SYSTEM Q-T Interval 442 ms MUSE SYSTEM QTC Calculated (Bezet) 459 ms MUSE SYSTEM Calculated P [place] 55 degrees MUSE SYSTEM Calculated R [place] -17 degrees MUSE SYSTEM Calculated T [place] 23 degrees MUSE SYSTEM INTERPRETATION Normal sinus rhythm Right bundle branch block Abnormal ECG When compared with ECG of 06-APR-2005 17:06, Right bundle branch block is now Present Confirmed by Bren marsh MD, Randy ([id number]) on 06/01/2017 2:57:34 PM MUSE SYSTEM 05/31/2017 4:17 PM EDT 06/01/2017 2:57 PM EDT Abdelrahman Frausto MD ECG ORDERABLES MUSE SYSTEM documented in this encounter Visit Diagnoses Diagnosis SVT (supraventricular tachycardia) Other specified cardiac dysrhythmias Intermittent claudication Peripheral vascular disease, unspecified documented in this encounter Care Teams School Speech Therapist Relationship Specialty Start Date End Date Demetra Goff APRN PCP - General 10/19/12 12/31/17 documented as of this encounter
--- OUTSIDE RECORDS SUMMARY | 2024-06-14 01:50 | XMS_ITS | Encounter Summary ---
[place] [address] Care Team Providers Care [employer] Name Role Phone Demetra Goff APRN Primary Care Provider [phone] Encounter Details Date Type Department Care Team (Latest Contact Info) Description 07/18/2017 12:20 PM EDT Clinical Support [place] [id number] Atherosclerosis of sleetm[place] artery of both lower extremities with intermittent [...] Taken Comments Blood Pressure - - Pulse 75 07/18/2017 11:41 AM EDT Temperature - - Respiratory Rate - - Oxygen Saturation 95% 07/18/2017 11:41 AM EDT Inhaled Oxygen Concentration - - Weight 92.8 kg (204 lb 9.6 oz) 07/18/2017 11:41 AM EDT Height 162.6 cm (5' 4) 07/18/2017 11:41 AM EDT Body Mass Index 35.12 07/18/2017 11:41 AM EDT documented in this encounter Progress Notes * Oma Vail RN - 07/18/2017 12:20 PM EDT PAT questionnaire reviewed with patient while in Pre Admission testing. Pt has tolerated anesthesiain the past. Pt with difficulty walking 2 blocks/stairs d/t left leg pain. Pt to bring CPaP on DOS.Pre-operative instruction booklet reviewed. Patient verbalizes a good understanding of all information reviewed. PLAN: Testing: Type and screen, other labs, EKG Special medication instructions: Procedure date: Not booked Dr Montaño Pt with 22 ga saline lock. This was discontinued after blood draw. Catheter intact. Site negative. documented in this encounter Plan of Treatment Upcoming Encounters Date Type Department Care Team (Late st Contact Info) Description 02/06/2025 2:40 PM EDT Office Visit Cardiology at [address] [place] [address] Rigoberto Diaz MD [facility] [place] [address] Scheduled Procedures Name Priority Associated Diagnoses Date/Ti me EGD, UPPER GI ENDOSCOPY (WRV U 2.09) Incontinence of feces, unspecified fecal incontinence type Dysphagia, unspecified type COLONOSCOPY, DIAGNOSTIC (WRV U 3.26) Incontinence of feces, unspecified fecal incontinence type Dysphagia, unspecified type documented as of this encounter Procedures Procedure Name Priority Date/Time Associated Diagnosis Comments EKG 12-LEAD Routine 07/18/2017 12:43 PM EDT Atherosclerosis of sleetm[place] artery of both lower extremities with intermittent claudication documented in this encounter Results * EKG 12 Lead (07/18/2017 12:43 PM EDT) Ventricular rate 80 BPM MUSE SYSTEM Atrial Rate 80 BPM MUSE SYSTEM P-R Interval 144 ms MUSE SYSTEM QRS Duration 122 ms MUSE SYSTEM Q-T Interval 412 ms MUSE SYSTEM QTC Calculated (Bezet) 475 ms MUSE SYSTEM Calculated P [place] 76 degrees MUSE SYSTEM Calculated R [place] 28 degrees MUSE SYSTEM Calculated T [place] 44 degrees MUSE SYSTEM INTERPRETATION Normal sinus rhythm Right bundle branch block Abnormal ECG When compared with ECG of 31-MAY-2017 16:17, No significant change was found Confirmed by MD Catalina, Darrion Rees ([id number]) on 07/18/2017 4:40:55 PM MUSE SYSTEM 07/18/2017 12:4 3 PM EDT 07/18/2017 4:40 PM EDT Jake Montaño MD ECG ORDERABLES MUSE SYSTEM documented in this encounter Visit Diagnoses Diagnosis Atherosclerosis of sleetm[place] artery of both lower extremities with intermittent claudication Atherosclerosis of sleetmute arteries of the extremities with intermittent claudication documented in this encounter Care Teams [employer] Relationship Specialty Start Date End Date Demetra Goff APRN PCP - General 10/19/12 12/31/17 documented as of this encounter
--- OUTSIDE RECORDS SUMMARY | 2024-06-14 01:50 | XMS_ITS | Encounter Summary ---
Author Organization [facility] [place] [address] Care Team Providers Care Professional Security Officer Name Role Phone Demetra Goff APRN Primary Care Provider [phone] Reason for Referral * Consultation (Routine) - Closed Specialty Diagnoses / Procedures Referred By Emy castillo Referred To Contact Sleep Center Diagnoses CHEMA treated with BiPAP Snoring SOB (shortness of breath) Procedures PRG POLYLSOM 6+ YRS SLEEP W CPAP W 4+ ADDL SKYLAR ATTND Alley Johnson APRN [facility] DR [facility] [place] [address] [facility] Sleep Medicine [address] [place] [address] Referral ID Status Reason Start Date Expiration Date V isits Requested Visits Authorized [id number] Closed Test Only 02/06/2017 02/06/2018 1 1 Encounter Details Date Type Department Care Team (Late Contact Info) Description 02/06/2017 2:00 PM EDT Office Visit Sleep Center at [facility] [address] [place] [address] Alley Johnson APRN [facility] [place] [address] CHEMA treated with BiPAP; Snoring; SOB (shortness of breath) Social History Tobacco Use Types Packs/Day Years [...] Sign Reading Time Taken Comments Blood Pressure 126/72 02/06/2017 1:56 PM EDT Pulse 84 02/06/2017 1:56 PM EDT Temperature - - Respiratory Rate - - Oxygen Saturation 95% 02/06/2017 1:56 PM EDT Inhaled Oxygen Concentration - - Weight 96.2 kg (212 lb) 02/06/2017 1:56 PM EDT Height 162.6 cm (5' 4) 02/06/2017 1:56 PM EDT Body Mass Index 36.39 02/06/2017 1:56 PM EDT documented in this encounter Patient Instructions * Patient Instructions* Alley Johnson APRN - 02/06/2017 2:00 PM EDT Recommendations: --BPAP titration to find adequate pressure and due to changes in medical history and length of timesince last titration; patient will bring in her BPAP machine --Continue BPAP pressures to 23/17 cw with ramp and humidity --Add white filter to inside of hearn filter to machine and change monthly if possible --Consider room humidifier for dry mouth --Use over the counter decongestant to nasal congestion; use Flonase for longer term nasal congestion or allergies/sneezing --Try nasal saline spray morning and night at least, for dry nasal passages --Driving safety discussed, recommend patient not drive if drowsy, if drowsy while driving, fur puller and take a nap. documented in this encounter Progress Notes * Alley Johnson Mario Alberto, PIANO [employer] - 02/06/2017 2:00 PM EDT Sleep Medicine Follow-Up Note HPI: Ms. Lindsey Deleon is a 66 y.o. female seen for follow-up of obstructive sleep apnea. Patient presents today for follow-up in PAP clinic. Patient has a cold, has a mask on today. She has a pinched nerve in her neck, getting into see Remy Steen in [facility] next Monday for PT, has been going on for 3 months. She has no daytime sleepiness these days. 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 passed in 2012. Patient was recently diagnosed with asthma and was also placed on lisinopril for HTN which is now better controlled. She has a previous diagnosis of emphysema. Patient has become more SOB these days and reports some at night with BPAP sometimes. Shewill remove the mask, wait a few minutes, then place the mask back on and it will be fine. Patient cannot sleep without BPAP therapy nightly. Sleep Study: 02/07/2008 at [facility] AHI: 28/hr, supine index was 29/hour Wt: 192.4lbs Titration at [facility] on 03/08/2008, Wt: 194.6lbs Treatment: BIPAP BPAP Auto 760P, setup 12/30/13 Pressure: 23/17 cm Tolerance: always has gas and did before Interface: Saranya View, size small; previous mask was Mirage Quattro but it left a cortney on her nose Fit: Well Chin strap: no Humidifier Settin chamber, 1 tubing HCC: [facility]; gets supplies regularly now since her last visit here Snoring: Yes, says person she cares for in her home Dry Mouth: Sometimes, adjusts humidity; uses Biotene rinse Mouth Breathing: Yes, has FFM, breathes through her nose when she goes to sleep but probably mouth breathes at night Daytime Symptoms: Patient-reported scores: [place]: 1 today, 6 on 08/09/16, 6 at 05/03/16 Nocturnal sleep quality improved: yes Daytime symptoms improved (Daytime sleepiness/fatigue): yes, overall Naps: none now, if back hurts she may rest but doesn't fall asleep Involuntary Dozing: no Sleepiness or Drowsiness when driving: none ROS: Constitutional: Weight is up about about 17 pounds since 2007 sleep study ENT: Nasal Obstruction: On Zyrtec [...] am Awakenings: Awakening due to pain lately Notable Medications: Melatonin 5mg QHS; helps her fall asleep Geodon 20mg BID Compliance Card Data: Device: BiPAP Auto 760P Date Range: 11/08/16-02/05/17 Settin/17 cm Residual AHI: 3.2 Vibratory Snore Index: 0 % Night in Large Leak: 0.6% Average usage days used-Hours: 9 hrs 14 minutes # Days of usage: 89/90 % Days used > 4 hours 98%. Total % Days used 99% Previous Compliance Card Data: Device: BiPAP Auto 760P Date Range: 05/11/16-08/08/16 Settin/16 cm Residual AHI: 4.2 Vibratory Snore Index: 0 % Night in Large Leak: 0.2% Average usage days used-Hours: 9 hrs 33 minutes # Days of usage: 90/90 % Days used > 4 hours 100%. Total % Days used 100% Physical Exam: BP 126/72 Pulse 84 Ht 162.6 cm (5' 4) Wt 96.2 kg (212 lb) SpO2 95% BMI 36.39 kg/m2 Respirations: Even and not labored at rest DERM: Skin Irritation: None anymore on Saranya View Assessment Ms. Lindsey Deleon is a 66 y.o. female seen for obstructive sleep apnea. Patient's card data shows patient has excellent usage of her PAP machine: AHI, VSI, and leak appear to be well-controlled with the current pressure, though she reports the lady she takes care of says she snores which has continued with a pressure increase the last time I saw her. Ms. Deleon now has a diagnosis of asthma and she is more SOB during the daytime and has reported instances of SOB with BPAP at night. She is on a nebulizer BID and also on an albuterol inhaler QID now. Patient is not using her white filter with BPAP, only hearn filter. I recommend she use the white filter, with hearn filter overlaying it, change white filter at least monthly, to filter out finer particles of dirt and dust (white filter) in case it's causing her respiratory disturbance. She has started on lisinopril, is also on HCTZ, and with both, her BP is controlled, she reports. With changes to her medical condition, continued snoring with raised BPAP pressures at last visit, new SOB, since it has been over 8 years sin ce last last titration, plus recent weight gain, recommend another in-lab BPAP titration to find adequate pressures for her. Discussed dry mouth remedies--she is using Biotene, mask leak is controlled; she might try a room humidifier in the future. Also we discussed the difference between a decongestant and a nasal steroid spray. She was taking the Flonase for occasional congestion. Humidifier/Heater function/rational and settings were reviewed with the patient along with supply replacement. Time spent face to face: 40 minutes 25 minutes of this 40 minute visit was spent in face to face discussion with the patient regarding counseling/education on PAP machine/parts cleaning and maintenance, supply replacement especially white filters, mask fit and options, and remedies for dry mouth. Recommendations: --BPAP titration to find adequate pressure and due to changes in medical history and length of timesince last titration; patient will bring in her BPAP machine --Continue BPAP pressures to 23/17 cw with ramp and humidity --Add white filter to inside of hearn filter to machine and change monthly if possible --Consider room humidifier for dry mouth --Use over the counter decongestant to nasal congestion; use Flonase for longer term nasal congestion with allergies/sneezing --Try nasal saline spray morning and night at least, for dry nasal passages --Driving safety discussed, recommend patient not drive if drowsy, if drowsy while driving, fur puller and take a nap. The patient indicates understanding of these issues and agrees with the plan. Alley Johnson APRN Cc: Demetra Goff APRN documented in this encounter Plan of Treatment Upcoming Encounters Date Type Department Care Team (Late st Contact Info) Description 02/06/2025 2:40 PM EDT Office Visit Cardiology at [address] [place] [phone] Rigoberto Diaz MD [facility] [place] [address] Scheduled Procedures Name Priority Associated Diagnoses Date/Ti me EGD, UPPER GI ENDOSCOPY (WRV U 2.09) Incontinence of feces, unspecified fecal incontinence type Dysphagia, unspecified type COLONOSCOPY, DIAGNOSTIC (WRV U 3.26) Incontinence of feces, unspecified fecal incontinence type Dysphagia, unspecified type Scheduled Referrals Name Type Priority Associated Diagnoses Orde r Schedule Referral to Sleep Disorders Center Outpatient Referral Routine Chema Treated With Bipap Snoring SOB (shortness of breath) Ordered: 02/06/2017 documented as of this encounter Visit Diagnoses Diagnosis CHEMA treated with BiPAP Snoring Other dyspnea and respiratory abnormality SOB (shortness of breath) Shortness of breath documented in this encounter Care Teams Professional Security Officer Relationship Specialty Start Date End Date Demetra Goff APRN PCP - General 10/19/12 12/31/17 documented as of this encounter
--- OUTSIDE RECORDS SUMMARY | 2024-06-14 01:50 | XMS_ITS | Encounter Summary ---
[place] [address] Care Team Providers Care Insulation Hoseman Name Role Phone Demetra Goff APRN Primary Care Provider [phone] Encounter Details Date Type Department Care Team (Latest Contact Info) Description 02/13/2013 11:27 AM EDT - 02/13/2013 3:56 PM EDT Hospital Encounter [place] [address] Larisa Posey MD [facility] [place] [address] Discharge Disposition: Home Social History Tobacco Use Types Packs/Day Years Used Date Smoking Tobacco: Former Alcohol Use Standard Drinks/Week Comments Yes 0 (1 standard drink = 0.6 oz pur e alcohol) Sex and Gender Information Value Date Recorded Sex Assigned at Not on file Gender Identity Not on file Sexual Orientation Not on file documented as of this encounter Last Filed Vital Signs Vital Sign Reading Time Taken Comments Blood Pressure 130/66 02/13/2013 2:03 PM EDT Pulse 72 02/13/2013 2:03 PM EDT Temperature 36.5 ??C (97.7 ??F) 02/13/2013 12:25 PM E DT Respiratory Rate 12 02/13/2013 2:03 PM EDT Oxygen Saturation 96% 02/13/2013 2:03 PM EDT Inhaled Oxygen Concentration - - Weight 79.8 kg (176 lb) 02/13/2013 12:25 PM EDT Height 162.6 cm (5' 4) 02/13/2013 12:25 PM EDT Body Mass Index 30.21 02/13/2013 12:25 PM EDT documented in this encounter Discharge Instructions * Discharge Instructions* Georgie Fournier RN - 02/13/2013 1:45 PM EDT You may have received medications before and/or during your procedure which effects judgement and reaction time. Do not drive, operate machinery, drink alcoholic beverages or make important decisions for 24 hours. Be careful on stairs as you may be unsteady on your feet. You may eat a regular diet as tolerated. Do not smoke if you are alone. IV site-- slight redness or tenderness is normal. You may use a warm compress. If tenderness and redness increases or foul drainage occurs, please contact your MD/ Please call [phone] before 5pm with problems, questions or concerns. After 5pm call [phone] and ask to speak with the store facility technician extrusion die coordinator. Discharge instructions reviewed with patient who expresses understanding. * Patient Instructions* Larisa Posey MD - 02/13/2013 1:34 PM EDT Please see Recommendations in the Provation procedure report which is documented in the procedural note in [facility]. * Attachments The following attachments cannot be sent through Care Everywhere. * UPPER GI ENDOSCOPY: WHAT TO EXPECT AT HOME (OCCITAN) documented in this encounter Medications at Time of Discharge Medication Sig Dispensed Refills Start Date End Date ziprasidone (GEODON) 20 mg capsule Take 20 mg by mouth 2 times daily (with meals). aspirin 325 mg tablet Take 325 mg by mouth daily. CARBOXYMETHYLCELLUL OSE SODIUM (REFRESH TEARS OPHT) Apply to eye 2 times daily. FOLIC ACID ORAL 10/12/2010 OXYcodone (ROXICODONE) 5 mg/5 mL solution Take 5-10 mLs by mouth every 4 hours as needed for Pain. 350 mL 0 02/19/2013 03/14/2014 POLYETHYLENE GLYCOL 3350 (MIRALAX ORAL) Take by mouth as needed. 02/05/2024 LACTOBACILLUS RHAMNOSUS GG (CULTURELLE ORAL) Take by mouth daily. 05/21/2019 dexlansoprazole (DEXILANT) 60 mg CpDMIndications:JERICA D (gastroesophageal reflux disease),Dysphagia Take 60 mg by mouth daily. 90 tablet 3 12/21/2012 03/14/2014 citalopram (CELEXA) 20 mg tabletIndications:D epression Take 2 tablets by mouth daily. 60 tablet 10/11/2012 02/16/2018 bisacodyl (DULCOLAX) 10 mg suppositoryIndicati ons:Constipation Place 1 suppository rectally daily. 60 suppository 12 10/11/2012 03/14/2014 IPRATROPIUM/ALBUTER OL SULFATE (COMBIVENT INHL) Inhale 14.7 g into the lungs 4 times daily. Reported on 02/06/2017 05/31/2017 BETA-CAROTENE,A, W-C & E/MIN (OCUVITE ORAL) Take by mouth. 05/21/2019 Cholecalciferol, Vitamin D3, (VITAMIN D-3) 5,000 unit Tab Take by mouth. 05/31/2017 albuterol (PROVENTIL HFA;VENTOLIN HFA) 90 mcg/Actuation inhalerIndications: chronic obstructive pulmonary disease Inhale 2 puffs into the lungs every 4 hours as needed. Use with spacer Indications: Chronic Obstructive Pulmonary Disease 05/21/2019 ezetimibe-simvastat in (VYTORIN 10-40) 10-40 mg per tablet 10/12/2010 05/21/20 19 hydrochlorothiazide (HYDRODIURIL) 50 mg tablet 10/12/2010 03/14/2014 documented as of this encounter H&P Notes * Larisa Posey MD - 02/13/2013 1:11 PM EDT See gi consult note; see surgery note; no interval change in H + P; consent signed for egd with dilation; risks explained. documented in this encounter Miscellaneous Notes * Miscellaneous - Provider, Scanning - 02/13/2013 9:40 PM EDT * Miscellaneous - Provider, Scanning - 02/13/2013 12:05 PM EDT documented in this encounter Plan of Treatment Upcoming Encounters Date Type Department Care Team (Late st Contact Info) Description 02/06/2025 2:40 PM EDT Office Visit Cardiology at [address] [place] [address] Rigoberto Diaz MD [facility] [place] [address] Scheduled Procedures Name Priority Associated Diagnoses Date/Ti me EGD, UPPER GI ENDOSCOPY (WRV U 2.09) Incontinence of feces, unspecified fecal incontinence type Dysphagia, unspecified type COLONOSCOPY, DIAGNOSTIC (WRV U 3.26) Incontinence of feces, unspecified fecal incontinence type Dysphagia, unspecified type documented as of this encounter Procedures Procedure Name Priority Date/Time Associated Diagnosis Comments SURGICAL PATHOLOGY REPORT Routine 02/13/2013 3:52 PM EDT SPECIMEN TO PATHOLOGY Routine 02/13/2013 1:50 PM EDT EGD, UPPER GI ENDOSCOPY (WRVU 2.09) 02/13/2013 1:15 PM EDT Dysphagia UPPER GI ENDOSCOPY Routine 02/13/2013 12 :45 PM EDT documented in this encounter Results * Surgical Pathology Report (02/13/2013 3:52 PM EDT) Surgical Pathology Report ? [facility] ? Provider: ?? LACY, LARISA E ? Pt. Name: ?? FIGUEREDO, LINDSEY D ? Acc #: ?[id number] ?Pt. ? Col Date: ?? 02/13/2013 ? /Sex: ?1950,(62 years),Female ? Rec Date: ?? 02/13/2013 ? LOC: ?4T ? SURGICAL PATHOLOGY ? ---Pathologic Diagnosis--- ? Stomach, biopsy: ?Gastric antrum-type mucosa with reactive gastropathy. ? CR-0 ? 02/15/13 ? VMS ? 02/15/13 Verified by: ? Fidencio Crump MD ? Pathologist ? (Electronic Signature) ? The attending pathologist whose signature appears on this report has ? reviewed all diagnostic slides and has edited the gross and/or ? microscopic portion of the report in rendering the final pathologic ? diagnosis. ? ---Microscopic Description--- ? Slides reviewed, microscopic description not recorded. ? ---Gross Description--- ? Labeled/Fixativ e: ? Stomach, formalin. ? Qty/Size/Weight : ?Three, ranging from 0.1 cm to 0.3 cm in ? greatest dimension. ? Tissue Description: ?? Soft, pink tissues. ? Sections/Proces sing: ??(T1) ??vms/SNS ? ---Clinical Information--- ? Specimen Submitted: ? A - Stomach ? Clinical History: ? Dysphagia ? Clinical Diagnosis: ? HP KENN SOTOMAYOR 02/13/2013 3:52 PM EDT Larisa Posey MD PATHOLOGY/CYTOLOGY [place] Performing Organization Address [facility] de Phone Number KENN SOTOMAYOR * Specimen to Pathology (surgical or derm) (02/13/2013 1:50 PM EDT) AP Specimen 02/13/2013 1:50 PM EDT 02/13/2013 1:50 PM EDT Narrative KENN SOTOMAYOR - 02/13/2013 1:50 PM EDT Specimen requisition ordered. ??Separate Pathology report to follow Larisa Posey MD PATHOLOGY/CYTOLOGY [place] Performing Organization Address [facility] de Phone Number KENN SOTOMAYOR * UPPER GI ENDOSCOPY (02/13/2013 12:45 PM EDT) UPPER GI ENDOSCOPY [facility] Endoscopy Patient Name: Lindsey Figueredo ? Procedure Date: 02/13/2013 12:45 PM ? N: [id number] ? Date of : 1950 ? Age: 62 ? Order #: [id number] ? Procedure: ? Upper GI endoscopy Indications: ? Dysphagia Providers: ? Larisa Posey MD, Susie Urena RN, ? Erika Green, Cutter Hand, ? Jaimee Roy, Cutter Hand Referring MD: ?Demetra Goff MD Requesting Provider: Moncho Huerta Medicines: ? Midazolam 2 mg IV, Fentanyl 100 ? micrograms IV, Diphenhydramine 50 mg ? IV, Benzocaine spray Complications: ? No immediate complications. Procedure: ? The procedure, indications, benefits, ? risks and alternatives were explained ? to the patient. Specifically ? discussed were potential ? complications including, but not ? limited to, bleeding, perforation, ? infection, missing a cancer, and ? adverse medication reactions. The ? Endoscope was introduced through the ? mouth, and advanced to the third part ? of duodenum. The patient tolerated ? the procedure well. The upper GI ? endoscopy was accomplished without ? difficulty. ? Findings: ? The examined duodenum was normal. Patchy mildly ? erythematous mucosa without bleeding was found in the ? gastric antrum. Biopsies were taken with a cold ? forceps for histology to rule out h. pylori (jar 1). ? The gastric body was normal. The gastric fundus was ? normal. A large hiatus hernia was present extending ? from 40 cm to 31 cm. The Z-line was regular and was ? found 31 cm from the incisors. A benign-appearing, ? intrinsic mild stenosis (web) measuring less than one ? cm (in length) was found just beneath the ? cricopharyngeus and was traversed. The scope was ? withdrawn. This was successfully dilated with a 60 Fr ? Lawton dilator with mild resistance. ? Impression: ?- Normal examined duodenum. ? - Gastric mucosal abnormality in the ? antrum characterized by erythema. ? This was biopsied. ? - Normal gastric body. ? - Normal gastric fundus. ? - Hiatus hernia. ? - Z-line regular, 31 cm from the ? incisors. ? - Benign-appearing esophageal ? stricture. Dilated. Recommendation: ?- Await pathology results. ? - Letter to be sent to patient and ? referring provider in 7-8 days ? - Return to primary care physician as ? previously scheduled. ? Attending Participation: ? I personally performed the entire procedure. ? Larisa Posey MD 02/13/2013 1:40 PM This report has been signed electronically. Number of Addenda: 0 Note Initiated On: 02/13/2013 12:45 PM PROVATION 02/13/2013 12:4 5 PM EDT Demetra Goff APRN GENERAL SURGICAL ORD ERABLES PROVATION documented in this encounter Visit Diagnoses Not on filedocumented in this encounter Active and Recently Administered Medications Times are shown in EDT. PRN Medication Order 02/11/2013 02/12/2013 02/13/2013 benzocaine (HURRICANE) 20 % oral spray (CANCELED) ONCE PRN, Pain, Starting on Mon02/13/13 at 1320, Until Mon02/13/13 at 1756, For Procedural use. [place] on area for one second. May repeat if necessary. Do not exceed a spray duration of 2 seconds., Intra-Operative (Intra-Procedure) 1320 (Given - Provid er: Susie Urena RN) diphenhydrAMINE (BENADRYL) injection (CANCELED) ONCE PRN, Starting on Mon02/13/13 at 1319, Until Mon02/13/13 at 1756, Itching, Intra-Operative (Intra-Procedure), Routine 1319 (Given - Provid er: Susie Urena RN - Comment: start of sedation)1322 (Given - Provider: Susie Urena RN - Comment: meds for [id number]) fentaNYL 50mcg/mL injection (CANCELED) ONCE PRN, Starting on Mon02/13/13 at 1319, Until Mon02/13/13 at 1756, Pain, Intra-Operative (Intra-Procedure), Routine 1319 (Given - Provid er: Susie Urena RN - Comment: start of sedation)1322 (Given - Provider: Susie Urena RN - Comment: meds for sedaqtion) midazolam (VERSED) injection (CANCELED) ONCE PRN, Starting on Mon02/13/13 at 1319, Until Mon02/13/13 at 1756, Sleep, Intra-Operative (Intra-Procedure), Routine 1319 (Given - Provid er: Susie Urena RN - Comment: start of sedatyion)1322 (Given - Provider: Susie Urena RN - Comment: meds for sedation) documented in this encounter Care Teams Insulation Hoseman Relationship Specialty Start Date End Date Demetra Goff, KYARA PCP - General 10/19/12 12/31/17 documented as of this encounter
--- OUTSIDE RECORDS SUMMARY | 2024-06-14 01:50 | XMS_ITS | Encounter Summary ---
[place] [address] Care Team Providers Care Airport Manager Name Role Phone Demetra Goff APRN Primary Care Provider [phone] Encounter Details Date Type Department Care Team (Late st Contact Info) Description 05/03/2016 3:30 PM EDT Office Visit Sleep Center at [facility] [address] [place] [address] Alley Johnson APRN [facility] [place] [address] Seasonal allergic rhinitis; CHEMA treated with BiPAP Social History Tobacco [...] Sign Reading Time Taken Comments Blood Pressure 159/76 05/03/2016 3:14 PM EDT Pulse 83 05/03/2016 3:14 PM EDT Temperature - - Respiratory Rate - - Oxygen Saturation 97% 05/03/2016 3:14 PM EDT Inhaled Oxygen Concentration - - Weight 95.4 kg (210 lb 6.4 oz) 05/03/2016 3:14 P M EDT Height 161.3 cm (5' 3.5) 05/03/2016 3:14 PM EDT Body Mass Index 36.69 05/03/2016 3:14 PM EDT documented in this encounter Patient Instructions * Patient Instructions* Alley Johnson APRN - 05/03/2016 4:16 PM EDT Recomendations: --Continue on CPAP 22/16 cw with ramp. Humidity setting --Ensure your mask, tubing and humidity chamber are washed at least once per week in warm, mild dishwashing liquid like Lori --Ensure supplies are changed out according to printed schedule given to patient today; she may qualify for a new mask every 3 months --Follow-up: RTC 3-4 months SYSTEM TECHNOLOGIST to check daytime sleepiness/hypothyroidism symptoms --Driving safety discussed, recommend patient not drive if drowsy, if drowsy while driving to lung puller and take a nap. documented in this encounter Progress Notes * Alley Johnson APRN - 05/03/2016 3:39 PM EDT Sleep Medicine Follow-Up Note HPI: Ms. Lindsey Mehta is a 63 y.o. female seen for follow-up of obstructive sleep apnea. Patient presents today for follow-up in PAP clinic. Last August, her TSH was borderline. When she returned for her 6 months review, her TSH was high, so she was started on levothyroxine 2 weeks ago through her PCP. 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 Sleep Study: 02/07/2008 at [facility] AHI: 28/hr, supine index was 29/hour Wt: 192.4lbs Titration at [facility] on 03/08/2008, Wt: 194.6lbs Treatment: BIPAP Pressure: 22/16 cm Interface: Saranya View, size small; previous mask was Mirage Quattro but it kept leaving a cortney on her nose Fit: Was leaking-cushion was checked on last follow up and was not attached to the frame properly, creating a high leak Chin strap: no Humidifier Settin chamber, 1 tubing [facility]: [facility] Snoring: Not aware of, sleeps alone Dry Mouth: Sometimes. Adjusts humidity; she bought some Biotene but hasn't used it, tried once Mouth Breathing: Yes, has FFM, breathes through her nose when she goes to sleep but probably mouth breathes at night Patient Perceived Outcome: Patient reports she is getting enough sleep but after a few hours, is tired. Has only been on levothyroxine for 2 weeks for hypothyrodism. Overall, PAP therapy helps and she couldn't function without it. Daytime Symptoms: Patient-reported scores: Buchanan: 6 today, 02/17 at last visit Nocturnal sleep quality improved: no change Daytime symptoms improved (Daytime sleepiness/fatigue): increased daytime sleepiness since 1.5 months ago, but she was recently diagnosed with hypothyroidism; she also had close to pneumonia 3x thiswinter Naps: Has been but doesn't always fall asleep Involuntary Dozing: no Sleepiness or Drowsiness when driving: none ROS: ENT: Nasal Obstruction: Takes Claritin but doesn't seem to help, would like a script of Flonase today Constitutional: Weight stable Sleep Pattern: Bedtime: 730 pm, watches TV until 9 pm, then affixes mask, is asleep promptly most nights Wake time: 5 am Awakenings: To void or let the dog out if he whines, twice at the most per night Compliance Card Data: Device: BiPAP Auto 760P Date Range: 02/03/16-05/02/16 Settin/16 cm Residual AHI: 4.7 Vibratory Snore Index: 0 % Night in Large Leak: 0.5% Average usage days used-Hours: 9 hrs 21 minutes # Days of usage: 90/90 % Days used > 4 hours 97%. Total % Days used 100% Previous Compliance Card Data: Date Range: 04/14-06/12/14 Settin/16 cm Residual AHI: 4.6 Vibratory Snore Index: 0 % Night in Large Leak: 2.4% Average usage days used-Hours: 8 hr # Days of usage: 60/60 % Days used > 4 hours 95%. Total % Days used 100% Physical Exam: BP 159/76 Pulse 83 Ht 161.3 cm (5' 3.5) Wt 95.4 kg (210 lb 6.4 oz) LMP Comment: BP taken 3 times. No change in readings. SpO2 97% BMI 36.69 kg/m2 (She says BP runs around 128 for systolic; she denies dizziness or lightheadness) Respirations: Even and not labored at rest DERM: Skin Irritation Redness and is sore on the bridge of her nose (she has a mask liner) Assessment Ms. Lindsey Mehta is a 63 y.o. female seen for obstructive sleep apnea. Patients card data shows patient has good usage of her PAP machine. Patients AHI and VSI appear to be well treated with the current pressure. Leak appears to be intermittent on some nights on her daily summaries. Patient reports daytime sleepiness for the past 1.5 months which may be related to her diagnosis of hypothyroidism. She started on levothyroxine 2 weeks ago and will follow up with her PCP in 6 moreweeks. She is now on the Saranya View mask and likes it better but could use a replacement mask. We discussed making sure she washes her mask, tubing, humidity chamber at least once per week with mild d ishwashing liquid and to replace supplies/parts are recommended. Patient given supply replacement frequency guideline. Recommend she follow up in 3-4 months after levothyroxine dosage has been adjusted to review her sleepiness symptoms at that time. According to her original PSG in 2007, she was borderline hypoxic, but not during following PAP titration. However, we may consider an overnight pulse oximetry test at next visit. Overall, she reports better sleeping and little to no symptoms on PAPtherapy compared to before. Humidifier/Heater function/rational and settings were reviewed with thepatient along with supply replacement. Time spent face to face: 45 minutes Greater than 30 minutes of this 45 minute visit was spent in face to face discussion with the patient regarding the nature of the problems described above, and the details of our therapeutic plan. Recomendations: --Continue on CPAP 22/16 cw with ramp. Humidity setting --Ensure your mask, tubing and humidity chamber are washed at least once per week in warm, mild dishwashing liquid like Lori --Ensure supplies are changed out according to printed schedule given to patient today; she may qualify for a new mask every 3 months --Follow-up: RTC 3-4 months SYSTEM TECHNOLOGIST to check daytime sleepiness/hypothyroidism symptoms with adjusted levothyroxine --If patient still has daytime sleepiness/fatigue symptoms upon follow-up, consider overnight pulseoximetry --Driving safety discussed, recommend patient not drive if drowsy, if drowsy while driving to lung puller and take a nap. The patient indicates understanding of these issues and agrees with the plan. Alley Johnson APRN Cc: Demetra Goff APRN documented in this encounter Plan of Treatment Upcoming Encounters Date Type Department Care Team (Late st Contact Info) Description 02/06/2025 2:40 PM EDT Office Visit Cardiology at [address] [id number] Rigoberto Diaz MD [place] [address] Scheduled Procedures Name Priority Associated Diagnoses Date/Ti me EGD, UPPER GI ENDOSCOPY (WRV U 2.09) Incontinence of feces, unspecified fecal incontinence type Dysphagia, unspecified type COLONOSCOPY, DIAGNOSTIC (WRV U 3.26) Incontinence of feces, unspecified fecal incontinence type Dysphagia, unspecified type documented as of this encounter Visit Diagnoses Diagnosis Seasonal allergic rhinitis Allergic rhinitis, cause unspecified CHEMA treated with BiPAP documented in this encounter Care Teams Airport Manager Relationship Specialty Start Date End Date Demetra Goff APRN PCP - General 10/19/12 12/31/17 documented as of this encounter
--- OUTSIDE RECORDS SUMMARY | 2024-06-14 01:50 | XMS_ITS | Encounter Summary ---
[place] [address] Care Team Providers Care Juice Weigher Name Role Phone Demetra Goff APRN Primary Care Provider [phone] Encounter Details Date Type Department Care Team (Late st Contact Info) Description 08/09/2016 3:30 PM EDT Office Visit Sleep Center at [facility] [address] [place] [address] Alley Johnson APRN [facility] [place] [address] CHEMA treated with BiPAP Social History Tobacco [...] Sign Reading Time Taken Comments Blood Pressure 154/78 08/09/2016 4:02 PM EDT Pulse 76 08/09/2016 4:02 PM EDT Temperature - - Respiratory Rate - - Oxygen Saturation 95% 08/09/2016 4:02 PM EDT Inhaled Oxygen Concentration - - Weight 95.8 kg (211 lb 1.6 oz) 08/09/2016 4:02 P M EDT Height 162.6 cm (5' 4) 08/09/2016 4:02 PM EDT Body Mass Index 36.24 08/09/2016 4:02 PM EDT documented in this encounter Progress Notes * Alley Johnson, BUSINESS PROCESS MANAGER - 08/09/2016 3:30 PM EDT Sleep Medicine Follow-Up Note HPI: Ms. Lindsey Mehta is a 63 y.o. female seen for follow-up of obstructive sleep apnea. Patient presents today for follow-up in PAP clinic. Last August, her TSH was borderline. She started 50mcg levothyroxine around late March, beginning of April. It has resolved her daytime sleepiness. It took her approximately 10-12 weeks to feel better. 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 Dry Mouth: Sometimes, adjusts humidity; uses Biotene rinse Mouth Breathing: Yes, has FFM, breathes through her nose when she goes to sleep but probably mouth breathes at night Daytime Symptoms: Patient-reported scores: [place]: 6 today, 6 at 05/03/16 Nocturnal sleep quality improved: yes Daytime symptoms improved (Daytime sleepiness/fatigue): much better on levothyroxine Naps: none now, if back hurts she may rest but doesn't fall asleep Involuntary Dozing: no Sleepiness or Drowsiness when driving: none ROS: ENT: Nasal Obstruction: On Zyrtec over the summer and worked but only taking Flonase now at night Constitutional: Weight is stable Sleep Pattern: Bedtime: 7:30 pm, watches TV until 9 pm, then affixes mask, is asleep promptly most nights Wake time: 4:30-5 am Awakenings: Not waking now at all, at last visit was twice per night Compliance Card Data: Device: BiPAP Auto 760P Date Range: 05/11/16-08/08/16 Settin/16 cm Residual AHI: 4.2 Vibratory Snore Index: 0 % Night in Large Leak: 0.2% Average usage days used-Hours: 9 hrs 33 minutes # Days of usage: 90/90 % Days used > 4 hours 100%. Total % Days used 100% Previous Compliance Card Data: Device: BiPAP Auto 760P Date Range: 02/03/16-05/02/16 Settin/16 cm Residual AHI: 4.7 Vibratory Snore Index: 0 % Night in Large Leak: 0.5% Average usage days used-Hours: 9 hrs 21 minutes # Days of usage: 90/90 % Days used > 4 hours 97%. Total % Days used 100% Date Range: 04/14-06/12/14 Settin/16 cm Residual AHI: 4.6 Vibratory Snore Index: 0 % Night in Large Leak: 2.4% Average usage days used-Hours: 8 hr # Days of usage: 60/60 % Days used > 4 hours 95%. Total % Days used 100% Physical Exam: BP 154/78 Pulse 76 Ht 162.6 cm (5' 4) Wt 95.8 kg (211 lb 1.6 oz) SpO2 95% BMI 36.24 kg/m2 Respirations: Even and not labored at rest DERM: Skin Irritation: None anymore on Saranya View Assessment Ms. Lindsey Mehta is a 63 y.o. female seen for obstructive sleep apnea. Her daytimesleepiness has resolved with treatment of hypothyroidism on 50mcg levothyroxin daily and she reports her energy is great now. 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 Order to [facility] to increase BPAP pressures slightly to 23/17 (changed in house todayon data card). Ms. Mehta also reports dry nasal mucosa--recommended OTC nasal saline spray morning and evening (follow directions on package). Humidifier/Heater function/rationaland settings were reviewed with the patient along with supply replacement. Time spent face to face: 25 minutes Recomendations: --Order to [facility] to increase BPAP pressures to 23/17 cw with ramp and humidity (changed in house today) --Try nasal saline spray morning and night at least, for dry nasal passages --Follow-up: RTC 6 months TELEGRAPH DISPATCHER --Driving safety discussed, recommend patient not drive if drowsy, if drowsy while driving, ticket puller and take a nap. The patient indicates understanding of these issues and agrees with the plan. Alley Johnson APRN documented in this encounter Plan of Treatment Upcoming Encounters Date Type Department Care Team (Late st Contact Info) Description 02/06/2025 2:40 PM EDT Office Visit Cardiology at [address] [id number] Rigoberto Diaz MD [facility] [place] [address] Scheduled Procedures Name Priority Associated Diagnoses Date/Ti me EGD, UPPER GI ENDOSCOPY (WRV U 2.09) Incontinence of feces, unspecified fecal incontinence type Dysphagia, unspecified type COLONOSCOPY, DIAGNOSTIC (WRV U 3.26) Incontinence of feces, unspecified fecal incontinence type Dysphagia, unspecified type documented as of this encounter Visit Diagnoses Diagnosis CHEMA treated with BiPAP documented in this encounter Care Teams Juice Weigher Relationship Specialty Start Date End Date Demetra Goff APRN PCP - General 10/19/12 12/31/17 documented as of this encounter
--- OUTSIDE RECORDS SUMMARY | 2024-06-14 01:50 | XMS_ITS | Encounter Summary ---
[place] [address] Care Team Providers Care Psychologist Engineering Name Role Phone [place]tahoocheeJoanne barrazalibby Combs APRN Primary Care Provider [phone] Reason for Visit * Reason Comments Other s/p paraesophageal h ernia Encounter Details Date Type Department Care Team (Late st Contact Info) Description 04/02/2013 3:00 PM EDT Office [place] [address] Moncho Bowers MD [facility] [place] [address] GERD (gastroesophageal reflux disease) (Primary Dx) Discharge Disposition: Home Social History Tobacco Use [...] as of this encounter Progress Notes * Moncho Bowers MD - 04/02/2013 4:04 PM EDT Lindsey Deleon is a 62-year-old female status post laparoscopic hiatal hernia and Ruby fundoplication on 02/18/2013. She did well post-op. As I see her back today she looks well. She states that she feels significantly better than she did preoperatively. She has no acid reflux. She is able to take her pills without difficulty. She had some initial trouble swallowing, which is improved. She was able to eat sausage last night without any dysphagia. On physical exam all trocar sites are healing well without any evidence of erythema or herniation. Her abdomen is soft, flat, and nontender. She had minimal postop pain and overall seems very satisfied with both her decision to undergo the operation, as well as the results thus far. At this point I will plan on seeing her back on a p.r.n. basis. She seems comfortable with that plan. documented in this encounter Plan of Treatment Upcoming Encounters Date Type Department Care Team (Late st Contact Info) Description 02/06/2025 2:40 PM EDT Office Visit Cardiology at [address] [address] Rigoberto Diaz MD [facility] [place] [address] Scheduled Procedures Name Priority Associated Diagnoses Date/Ti me EGD, UPPER GI ENDOSCOPY (WRV U 2.09) Incontinence of feces, unspecified fecal incontinence type Dysphagia, unspecified type COLONOSCOPY, DIAGNOSTIC (WRV U 3.26) Incontinence of feces, unspecified fecal incontinence type Dysphagia, unspecified type documented as of this encounter Visit Diagnoses Diagnosis GERD (gastroesophageal reflux disease)- Primary Esophageal reflux documented in this encounter Care Teams Psychologist Engineering Relationship Specialty Start Date End Date Demetra Goff APRN PCP - General 10/19/12 12/31/17 documented as of this encounter
--- OUTSIDE RECORDS SUMMARY | 2024-06-14 01:50 | XMS_ITS | Encounter Summary ---
Author Organization [place] [address] Care Team Providers Care Funeral Location Manager Name Role Phone Demetra Goff APRN Primary Care Provider [phone] Reason for Visit * Consultation (Routine) - Closed Specialty Diagnoses / Procedures Referred By Emy castillo Referred To Contact Sleep Center Diagnoses CHEMA treated with BiPAP Snoring SOB (shortness of breath) Procedures PRG POLYLSOM 6+ YRS SLEEP W CPAP W 4+ ADDL SKYLAR ATTND Alley Johnson APRN [facility] [place] [address] [facility] Sleep Medicine [address] [place] [address] Referral ID Status Reason Start Date Expiration Date V isits Requested Visits Authorized [id number] Closed Test Only 02/06/2017 02/06/2018 1 1 Encounter Details Date Type Department Care Team (Late st Contact Info) Description 03/28/2017 7:30 PM EDT Procedure visit Sleep Center at [facility] [address] [place] [address] Deya Ferro MD [facility] [place] [address] CHEMA (obstructive sleep apnea) (Primary Dx); Paroxysmal SVT (supraventricular tachycardia) Social History Tobacco Use Types Packs/Day Years [...] as of this encounter Progress Notes * Deya Ferro MD - 03/28/2017 7:30 PM EDT Images from the original note were not included. Overnight Polysomnogram Report - PAP Titration Trial History Of Present Illness: Lindsey Deleon is a 66 yo woman who presents for a full night bilevel PAP titration in the setting of known CHEMA, h/o lung disease, and reports of ongoing snoring. Current bilevel PAP settings are 23/17, leaks appear well controlled at home using an AmaraView size small. Polysomnography: The patient's sleep was evaluated for one night at the Sleep [facility] Center. Sleep was monitored in accordance with recommended AASM guidelines. The recording also included oral/nasal airflow, chest and abdominal respiratory effort, nasal pressure, single channel EKG, intercostalEMG, bilateral tibialis EMG, and oxygen saturation (by pulse oximeter). Type of Positive Pressure Utilized: Bilevel PAP Report - Sleep/EEG: Bilevel PAP was initiated at 20:20 to 6:19 yielding a total sleep time of 421 min withall stages of sleep seen. REM accounted for 22% of the TST. She spent 15% of the time supine. No major EEG abnormalities were noted. - Respiratory: Bilevel PAP was titrated from a pressure of 18/12 cm to 24/17 cm. Reviewing the individual pressures, ongoing evidence of snoring and obstruction was noted laterally at pressures of 18/12 to 21/13. Improved was noted at 21/14 laterally, but frequent obstructive apneas were noted supine - improved at 22/15 cm. Some snoring and occasional obstruction was noted laterally at 23/16 cm, i mproved in lateral REM at 24/16.. No supine REM was seen at the final pressures tested. Oxygenationwas stable at the final pressure of 23/15 -/17. Limited time asleep was seen on . The mask used was a AmaraView size small. A chinstrap was added due to evidence of her mouth dropping below the mask. Leaks were well contained. - EKG: Normal sinus rhythm. There was two short bursts of a narrow complex tachycardia of unclear significance. Epoch 704 is shown below. - EMG: Unremarkable - COMMENTS: Head of bed: flat with 1 pillow Technical quality of the study: good Post study questionnaire: The patient reported sleeping slightly worse and feeling average on the morning after testing. Assessment: Lindsey Deleon is a 66 yo woman who presents for a full night bilevel titration study. Overall, good controlled of obstuctive events was noted at pressures of 23/15 to 24/17cm. Some residual snoring was noted at times at 23/16 cm. Oxygenation was well maintained. Mask leaks overall we also well controlled. A chinstrap was added on this night for evidence of her mouth dropping below the mask. Considering the download data, her clinical status, and this titration study, it is reasonable for her to continue on her current settings of 23/17 or consider a increase in IPAP to 24 or 25. There is no evidence for need for supplemental oxygen. The download report does not suggest problems with leak, so the need for a chinstrap moving forward seems less important. Note is made of two episodes of an SVT of unclear significance. * I called Lindsey on two occasions and left messages (last was 04/21). I will forward an update in pressure settings above. Recommendations: 1. Trial of BIPAP . Consider chinstrap if felt to be needed. 2. Follow up with her PCP as to the SVT noted of unclear significance. Deya Ferro MD [facility] REPORT of TITRATION Polysomnography Patient Name: Lindsey Deleon Study Date: 03/28/2017 Age & Sex: 66 y.o. Female Height: 5'4 Date of : 1950 Weight: 214.2 lbs BMI: 36.8 Referring Provider: Recording Technologist: AZUCENA JERRY Scoring Technologist: MALICK CESPEDES Sleep Fellow: Sleep Specialist: DEYA FERRO M.D. Scoring Technologist Comments: ECG: NSR Ectopy: Epochs 250 and 704 Description of Study: Diagnostic polysomnography was performed utilizing frontal, central & occipital EEG, EOG, submentalis EMG, oronasal thermocouple, nasal pressure, ECG, thoracic and abdominalinductance plethysmography, right and left anterior tibialis EMG, snore sensor, and pulse oximetry according to AASM established guidelines. Study Details & Sleep Architecture Diagnostic Start Time (Lights Off): 20:20:33 Total Recording Time: 598.5 min Diagnostic End Time (Lights On): 06:19:04 Total Sleep Time (minutes): 421.5 Total Num. of Stage Shifts: 213 Total Sleep Time (hrs:min): 7:1.5 Total Num. of Awakenings: 61 Sleep Onset Latency: 52.5 min Total Num. of Trans. to N1: 50 Sleep Efficiency: 70.4% Total Num. of REM Periods: 12 Stage Results: Time (minutes) %TST Latency (minutes) WASO: 124.5 - - N1: 34.5 8.2 0.0 N2: 227.5 54.0 4.0 N3: 68.0 16.1 58.5 REM: 91.5 21.7 166.5 125.0 (minus wake) Arousal Counts: NREM REM Total Spontaneous: 142 (25.8/hr) 34 (22.3/hr) 176 (25.1/hr) Sum of All Arousals: 207 (37.6/hr) 35 (23.0/hr) 242 (34.4/hr) Spontaneous arousals include only EEG arousals not associated with a respiratory event or PLM. Body Position: Supine Non-Supine Non-REM: 45.5 min 284.5 min REM: 16.0 min 75.5 min Total Sleep: 61.5 min (14.6%) 360.0 min (85.4%) Respiratory Events Apneas Obstructive Mixed Central Total Apneas Total Count: 8 5 3 16 Mean Duration (sec): 23 20 14 - Longest Duration (sec): 29.5 22.9 14.7 - Index (REM/NREM): 0.0 / 1.5 0.0 / 0.9 1.3 / 0.2 - Index (Sup./Non-Sup.): 2.9 / 0.8 2.0 / 0.5 0.0 / 0.5 - Index (Total): 1.1 0.7 0.4 2.3 Hypopneas & RERAs Hypopnea Definitions: Hypopnea* CMS Hypopnea 3% desat jeancarlos. Hypopneas All RERA Total Count: 5 54 59 11 Mean Duration (sec): 33.2 28.1 - 29.8 Longest Duration (sec): 42.9 59.7 - 44.3 Index (REM/NREM): 0.0 / 0.9 3.3 / 8.9 3.3 / 9.8 0.0 / 2.0 Index (Sup./Non-Sup.): 2.9 / 0.3 11.7 / 7.0 14.6 / 7.3 0.0 / 1.5 Index (Total): 0.7 7.7 8.4 1.1 *[facility]-defined hypopneas include only hypopneas with a >=4% oxygen desaturation. Includes hypopneas with an arousal or with a 3%-4% desaturation. [facility] Hypopneas not included. Periodic Breathing Total Sleep Time Time (minutes) 0.0 Time (%Sleep Time) 0.0 AHI: Includes all apneas & all hypopneas associated with an arousal or a ? 3% desaturation. Supine Non-Sup. REM NREM Total Count: 20 55 7 68 75 Index (events/hr): 19.5 9.2 4.6 12.4 AHI = 10.7 CMS AHI: Includes all apneas & only hypopneas associated with a ? 4% desaturation. Supine Non-Sup. REM NREM Total Count: 8 13 2 19 21 Index (events/hr): 7.8 2.2 1.3 3.5 CMS = 3.0 Obstructive AHI: Includes obstructive & mixed apneas as well as all hypopneas. Excludes centralapneas and RERAs. Supine Non-Sup. REM NREM Total Count: 20 52 5 67 72 Index (events/hr): 19.5 8.7 3.3 12.2 OAHI = 10.2 RDI: Includes all apneas, all hypopneas, all RERAs, and all ???Unsure??? events. Supine Non-Sup. REM NREM Total Count: 20 66 7.0 79.2 86 Index (events/hr): 19.5 11.0 4.6 14.4 RDI = 12.2 Oxygen Saturation Details (Overall) SpO2 Awake NREM REM All Sleep TATY Report Sleep Mean: 95% 95% 95% 95% 3% TATY 3.9 3.7 Minimum: - 85% 92% 85% 4% TATY 1.5 1.3 SpO2 Awake (minutes) NREM (minutes) REM (minutes) All Sleep (minutes) ?90% 0.4 1.5 0.0 1.5 ?89% 0.3 0.9 0.0 0.9 ?88% 0.1 0.5 0.0 0.5 90-99% 157.7 321.2 91.2 412.4 80-89.9% 0.3 0.9 0.0 0.9 70-79.9% 0.0 0.0 0.0 0.0 60-69.9% 0.0 0.0 0.0 0.0 50-59.9% 0.0 0.0 0.0 0.0 ?50% 0.0 0.0 0.0 0.0 Cardiac Details Heart Rate (bpm) Total Study NREM REM All Sleep Minimum - 59 59 59 Maximum 76 76 76 76 Mean - 66 67 66 Limb Movement Details Periodic Limb Movements Total PLMs (and Index) PLMs w/ Arousals (and Index) Wake (after ???Lights Off???): 0 (0.0/hr) 0 (0.0/hr) NREM: 17 (3.1/hr) 6 (1.1/hr) REM: 0 (0.0/hr) 0 (0.0/hr) Total Sleep: 17 (2.4/hr) 6 (0.9/hr) Pressure Analysis Time (hh:mm:ss) IP/EP/O2 TST Supine Non-Sup. REM Non-REM REM Sup. 18/12/0 19/12/0 20/12/0 21/13/0 21/14/0 22/14/0 22/15/0 23/15/0 23/16/0 24/16/0 24/17/0 0:39:35 0:52:48 0:30:07 0:23:57 0:52:41 0:06:19 0:40:33 1:04:09 0:54:07 0:49:41 0:07:33 0:02:00 0:00:00 0:00:00 0:00:00 0:04:08 0:06:19 0:20:03 0:00:00 0:18:16 0:10:14 0:00:30 0:37:35 0:52:48 0:30:07 0:23:57 0:48:33 0:00:00 0:20:30 1:04:09 0:35:51 0:39:27 0:07:03 0:00:00 0:00:00 0:00:00 0:10:00 0:00:00 0:00:00 0:33:00 0:11:00 0:17:30 0:16:27 0:03:33 0:39:35 0:52:48 0:30:07 0:13:57 0:52:41 0:06:19 0:07:33 0:53:09 0:36:37 0:33:14 0:04:00 0:00:00 0:00:00 0:00:00 0:00:00 0:00:00 0:00:00 0:13:30 0:00:00 0:02:30 0:00:00 0:00:00 Respiratory Event Counts IP/EP/O2 Obstr. Ap. Mixed Ap. Central Ap. Hypopneas* RERAs 18/12/0 19/12/0 20/12/0 21/13/0 21/14/0 22/14/0 22/15/0 23/15/0 23/16/0 24/16/0 24/17/0 0 2 2 1 0 3 0 0 0 0 0 0 2 0 0 3 0 0 0 0 0 0 0 0 0 0 1 0 0 0 0 1 1 8 15 10 3 8 2 7 2 2 1 1 7 4 0 0 0 0 0 0 0 0 0 *Includes all types of hypopneas: those associated with arousals or ?3% desaturations. Respiratory Indices (events per hour) IP/EP/O2 OAI EMILY LEFTY HI* RDI 18/0 0 0 /0 0 0 0 0 0 0 0 0.0 2.3 4.0 2.5 0.0 28.5 0.0 0.0 0.0 0.0 0.0 0.0 2.3 0.0 0.0 3.4 0.0 0.0 0.0 0.0 0.0 0.0 0.0 0.0 0.0 0.0 1.1 0.0 0.0 0.0 0.0 1.2 7.9 12.1 17.0 19.9 7.5 9.1 19.0 10.4 1.9 2.2 1.2 7.9 22.7 26.1 23.9 10.0 13.7 47.5 10.4 1.9 2.2 2.4 15.9 *Includes all types of hypopneas: those associated with arousals or ?3% desaturations. Respiratory Indices (events per hour) IP/EP/O2 AHI Supine Non-Sup. REM Non-REM 0 0 0 0 0 0 0 0 0 /0 0 12.1 21.6 23.9 10.0 13.7 47.5 10.4 1.9 2.2 2.4 15.9 90.0 0.0 0.0 0.0 58.1 47.5 18.0 0.0 0.0 5.9 120.0 8.0 21.6 23.9 10.0 9.9 0 2.9 1.9 3.3 1.5 8.5 0.0 0.0 0.0 0.0 0.0 0.0 5.5 10.9 0.0 3.6 16.9 12.1 21.6 23.9 17.2 13.7 47.5 31.8 0.0 3.3 1.8 15.0 *Includes all types of hypopneas: those associated with arousals or ?3% desaturations. Oxygen Saturations IP/EP/O2 Minimum Mean 18/12/0 19/12/0 20/12/0 21/13/0 21/14/0 22/14/0 22/15/0 23/15/0 23/16/0 24/16/0 24/17/0 94 92 93 91 85 87 88 92 95 92 92 96 96 96 96 95 93 95 94 96 95 95 Graphs CPAP/Bi-Level PLMs Body Position documented in this encounter Plan of Treatment Upcoming Encounters Date Type Department Care Team (Late st Contact Info) Description 02/06/2025 2:40 PM EDT Office Visit Cardiology at [address] [place] [address] Rigoberto Diaz MD [facility] [place] [address] Scheduled Procedures Name Priority Associated Diagnoses Date/Ti me EGD, UPPER GI ENDOSCOPY (WRV U 2.09) Incontinence of feces, unspecified fecal incontinence type Dysphagia, unspecified type COLONOSCOPY, DIAGNOSTIC (WRV U 3.26) Incontinence of feces, unspecified fecal incontinence type Dysphagia, unspecified type documented as of this encounter Visit Diagnoses Diagnosis CHEMA (obstructive sleep apnea)- Primary Obstructive sleep apnea (adult) (pediatric) Paroxysmal SVT (supraventricular tachycardia) Paroxysmal supraventricular tachycardia documented in this encounter Care Teams Funeral Location Manager Relationship Specialty Start Date End Date Demetra Goff APRN PCP - General 10/19/12 12/31/17 documented as of this encounter
--- OUTSIDE RECORDS SUMMARY | 2024-06-14 01:50 | XMS_ITS | Encounter Summary ---
[place] [address] Care Team Providers Care Caramel Coloring Operator Name Role Phone Demetra Goff APRN Primary Care Provider [phone] Encounter Details Date Type Department Care Team (Latest Contact Info) Description 06/05/2017 10:30 AM EDT - 06/05/2017 11:59 PM EDT Hospital En[place] [id number] [place] Intermittent claudication Discharge Disposition: Home Social History Tobacco [...] (Mycostatin) Cream Three times a day 03/21/2014 multivitamin (THERAGRAN) tablet Take 1 tablet by mouth daily. ziprasidone (GEODON) 20 mg capsule Take 20 mg by mouth 2 times daily (with meals). aspirin 325 mg tablet Take 325 mg by mouth daily. CARBOXYMETHYLCELLULO SE SODIUM (REFRESH TEARS OPHT) Apply to eye 2 times daily. FOLIC ACID ORAL 10/12/2010 nystatin (MYCOSTATIN) Cream Apply topically. 03/21/201403/08 fluticasone (FLOVENT) 110 mcg/actuation HFA Aerosol Inhaler Inhale 1 puff into the lungs 2 times daily. flovent diskus 11/23/2023 hydroCHLOROthiazide (MICROZIDE) 12.5 mg Capsule Take 12.5 mg by mouth daily. 03/19/2021 lisinopril (PRINIVIL;ZESTRIL) 10 mg Tablet Take 10 mg by mouth daily. 05/21/2019 melatonin 5 mg Tablet Take by mouth nightly. 05/21 levothyroxine (SYNTHROID) 50 mcg TabletIndications:hy pothyroidism Take 50 mcg by mouth daily. Indications: Hypothyroidism 10/11/2022 fluticasone (FLONASE) 50 mcg/actuation [place], SuspensionIndication s:Seasonal allergic rhinitis 2 sprays by Each Nare route daily as needed for Rhinitis. 16 g 3 05/03/2016 03/19/2021 loratadine (CLARITIN) 10 mg tablet Take 10 mg by mouth daily. 07/18/2017 Soldier-3 Fatty Acids 500 mg Cap Take by mouth. 07/18/2017 POLYETHYLENE GLYCOL 3350 (MIRALAX ORAL) Take by mouth as needed. 02/05/2024 LACTOBACILLUS RHAMNOSUS GG (CULTURELLE ORAL) Take by mouth daily. citalopram (CELEXA) 20 mg tabletIndications:De pression Take 2 tablets by mouth daily. 60 tablet 10/11/2012 02/16/2018 BETA-CAROTENE,A, W-C & E/MIN (OCUVITE ORAL) Take by mouth. 05/21/2019 albuterol (PROVENTIL HFA;VENTOLIN HFA) 90 mcg/Actuation inhalerIndications:c hronic obstructive pulmonary disease Inhale 2 puffs into the lungs every 4 hours as needed. Use with spacer Indications: Chronic Obstructive Pulmonary Disease 05/21/2019 ezetimibe-simvastati n (VYTORIN 10-40) 10-40 mg per tablet 10/12/2010 05/21/20 19 documented as of this encounter Plan of Treatment Upcoming Encounters Date Type Department Care Team (Late st Contact Info) Description 02/06/2025 2:40 PM EDT Office Visit Cardiology at [address] [place] [address] Rigoberto Diaz MD [facility] [place] [address] Scheduled Procedures Name Priority Associated Diagnoses Date/Ti me EGD, UPPER GI ENDOSCOPY (WRV U 2.09) Incontinence of feces, unspecified fecal incontinence type Dysphagia, unspecified type COLONOSCOPY, DIAGNOSTIC (WRV U 3.26) Incontinence of feces, unspecified fecal incontinence type Dysphagia, unspecified type documented as of this encounter Procedures Procedure Name Priority Date/Time Associated Diagnosis Comments MARIYA, LEGS, MULTIPLE LEVELS Routine 06/05/2017 10:46 AM EDT Intermittent claudication documented in this encounter Results * MARIYA, legs, multiple levels (06/05/2017 10:46 AM EDT) VB Text Report Department: Vascular Surgery Lab Patient: [id number] (DELEON, LINDSEY) CPT: 33653 ICD10: I73.9 Referring Physician: ABDELRAHMAN GREEN ?? Indications: Bilateral claudication Diabetes mellitus: no [...] ? Dorsalis Pedis (Ankle) Artery ?62 ?0.48 ??[place]-Biphasic ?? Posterior Tibial (Ankle) Artery ??87 ?0.68 ??[place]-Biphasic ?? Interpretation: RIGHT: Moderate to moderately severe [...] VASCUBASE 06/05/2017 10:4 6 AM EDT Abdelrahman Green MD VASCULAR ORDERABLES VASCUBASE documented in this encounter Visit Diagnoses Diagnosis Intermittent claudication Peripheral vascular disease, unspecified documented in this encounter Care Teams Caramel Coloring Operator Relationship Specialty Start Date End Date Demetra Goff APRN PCP - General 10/19/12 12/31/17 documented as of this encounter
--- OUTSIDE RECORDS SUMMARY | 2024-06-14 01:50 | XMS_ITS | Encounter Summary ---
[place] [address] Care Team Providers Care Web Coordinator Name Role Phone Denver Demetra Combs APRN Primary Care Provider [phone] Encounter Details Date Type Department Care Team (Latest Contact Info) Description 02/18/2013 8:03 PM EDT - 02/19/2013 3:56 PM EDT Hospital Encounter [place] [address] Mireya Calvin MD [facility] [address] Discharge Disposition: Home Social History Tobacco Use [...] Sign Reading Time Taken Comments Blood Pressure 161/71 02/18/2013 6:00 PM EDT Pulse 94 02/18/2013 6:00 PM EDT Temperature 37 ??C (98.6 ??F) 02/18/2013 5:38 PM EDT Respiratory Rate 17 02/18/2013 6:00 PM EDT Oxygen Saturation 95% 02/18/2013 6:00 PM EDT Inhaled Oxygen Concentration - - Weight 80 kg (176 lb 5.9 oz) 02/18/2013 12:29 PM EDT Height - - Body Mass Index 30.27 02/13/2013 12:25 PM EDT documented in this encounter Discharge Instructions * Patient Instructions* Ismael Hernandez MD - 02/18/2013 5:44 PM EDT Call your doctor if you develop: Fever greater than 101.3 degrees Farenheit (38.5 degrees Celcius), chills, nausea or vomiting. Alsocall if you develop severe pain not relieved by your prescribed oral pain medicine. CALL THE GENERAL SURGERY CLINIC DURING WORKING HOURS AT , OR CALL AFTERCLINIC HOURS, WEEKENDS AND HOLIDAYS: ASK FOR THE GENERAL SURGERY RESIDENT DIESEL DINKEY ENGINEER IF ANY OF THE ABOVE OCCUR. Activity level: Increase your activity slowly. You may tire easily, so frequent rest periods may be necessary. Do not lift more than 10 pounds for 4 weeks. Walk three times a day. Use common sense. Don't exhaust yourself. Diet: You should follow a post Willem diet, as instructed by the customs officer in the hospital for a period of approximately 3 weeks. The main purpose of this diet is to have you consume foods that will slide easily down into your stomach. Most foods when well chewed should pass through the esophagus and into your stomach. However, patients do not always chew foods well enough. Slow, thorough chewing isrecommended. Moistening foods with sauce, gravy, syrup or other liquids can be helpful. You should consume only very soft, small particle foods. You should not eat bread or drink carbonated beverages. You should start with more bland foods and if these are tolerated you may increase the amount of spice in your food. If you find there are foods that don't agree with you, try these sparingly until y ou can tolerate them. You need to remain in an upright position for 30-60 minutes after you eat. You may find that you need to eat smaller meals with frequent between meal snacks to get enough calories. Pills: Please crush all pills for 4 weeks. Pain: Roxicodone elixir for pain, as directed. Driving: Do not drive while taking narcotic pain medications such as Roxicodone. Shower/Bath: You may shower and let water run over wound 48 hours after your surgery. No soaking baths or swimming for 2 weeks from surgery. Wound Care: Once showering, wash your incision(s) daily with soap and rinse well, pat dry. Assess for any signsof infection such as increased redness, pain, warmth or drainage. The Steri-Strips will fall off in7-10 days. The brown bandaids can be removed at any time. Follow-up: You have a follow-up appointment scheduled to see Dr. Calvin at the [facility]. You will receive a letter in the mail confirming the appointment date and time. Your follow-up is very important to us. Please call [phone] if you do not hear from us within 7 days of discharge or if you need to change the appointment date/time. documented in this encounter Medications at Time [...] 10/12/2010 03/14/2014 documented as of this encounter Progress Notes * Eulalia Hawk RN - 02/19/2013 3:26 PM EDT Record reviewed and patient discussed with multidisciplinary team. No discharge needs identified atthis time. CRC remains available as needed for coordination of care and discharge planning. Eulaila Hawk RN Pager# [phone] Clinical [employer] Office of Care Management * Dung Steward MD - 02/19/2013 10:[address] [facility] Department of Surgery Inpatient Progress Note ID: Lindsey Deleon is a 62 y.o. female with large symptomatic paraesophageal hernia. Following review of therapeutic options, she elected to undergo a laparoscopic paraesophageal hernia repair and Toupet fundoplication. 24 hr events: S/p laparoscopic paraesophageal hernia repair and Toupet fundoplication Admitted to short stay unit No acute issues overnight, pain well controlled, denies elevated heart rate, admit nausea/vomiting,+ flatus, no BM PE: Temp: [36.4 ??C (97.5 ??F)-37 ??C (98.6 ??F)] Heart Rate: [73-99] Resp: [13-21] BP: (128-180)/(63-87) SpO2: [92 %-99 %] Intake/Output Summary (Last 24 hours) at 02/19/13 1018 Last data filed at 02/19/13 0930 Gross per 24 hour Intake 2237 ml Output 1870 ml Net 367 ml Gen: Resting in bed, NAD, oriented x3 Pulm: CTAB, no crackles/wheeze Card: Regular rate/rhythm, no m/r/g, no JVD Abd: mildly distended, normal BS, soft, moderately tender to palpation, incision dressings c/d/i Ext: WWP, no edema Recent Results (from the past 24 hour(s)) CBC (WITH DIFF) Component Value Range WBC 11.4 (*) 4.0 - 10.0 x10(3)/mcL RBC 3.89 (*) 3.93 - 5.22 x10(6)/mcL Hemoglobin 12.7 11.2 - 15.7 gm/dL Hematocrit 36.8 34.0 - 45.0 % MCV 94.6 (*) 79.0 - 94.0 fL MCH 32.6 (*) 26.6 - 32.2 pg MCHC 34.5 32.0 - 36.5 gm/dL Platelets 226 145 - 370 x10(3)/mcL RDWSD 43.8 35.0 - 46.0 fL RDWCV 12.7 10.9 - 14.4 % MPV 9.7 9.0 - 12.0 fL BASIC METABOLIC PANEL (NON-FASTING) Component Value Range Glucose Lvl 101 60 - 199 mg/dL BUN 13 8 - 18 mg/dL Creatinine 0.57 (*) 0.70 - 1.20 mg/dL Sodium 138 135 - 145 mmol/L Potassium 3.7 3.5 - 5.0 mmol/L Chloride 102 98 - 107 mmol/L CO2 27 22 - 31 mmol/L Anion Gap 9 5 - 15 mmol/L Calcium 8.6 8.5 - 10.5 mg/dL Estimated GFR >60 >=60 MAGNESIUM Component Value Range Magnesium 0.75 0.69 - 1.07 mmol/L DIFFERENTIAL, AUTOMATED Component Value Range Neutrophils % 66.8 34.0 - 71.0 % Neutr Abs (ANC) 7.62 (*) 1.50 - 6.30 x10(3)/mcL Lymphocytes % 21.2 19.0 - 53.0 % Lymphocytes Abs 2.4 1.0 - 3.6 x10(3)/mcL Monocytes % 11.3 4.0 - 13.0 % Monocyte Abs 1.3 (*) 0.2 - 1.0 x10(3)/mcL Eosinophils % 0.3 0.0 - 7.0 % Eosinophils Abs 0.0 0.0 - 0.5 x10(3)/mcL Basophils % 0.1 0.0 - 2.0 % Basophils Abs 0.0 0.0 - 0.2 x10(3)/mcL Immature Gran % 0.30 0.00 - 0.66 % [place] Gran Abs 0.03 0.00 - 0.05 x10(3)/mcL Assessment: 62 y.o. female with large symptomatic paraesophageal hernia, now POD # 1 s/p laparoscopic paraesophageal hernia repair and Toupet fundoplication Recommendations: - Post-Willem Full diet for breakfast, d/c CABINETMAKER MAINTENANCE and add po pain control, and d/c newman -Continue to monitor for tachycardia -HLIV once pt taking adequate po -Replete lytes prn -Monitor uop -Continue to encourage IS, aggressive pulm toilet, frequent OOB/ambulation Anticipate that if pt remains stable today, possible DC this evening * Larry Cuellar DT - 02/19/2013 9:43 AM EDT Nutrition Services Education Note 02/19/2013 Lindseysa Bibi Deleon :1950 Patient/family seen for nutrition education for Willem diet Written information provided: willem diet Patient/family was given my contact information if questions arise. Patient/family stated good understanding of above information, no further questions at this time. LARRY CUELLAR DTR * Marcial De Jesus, RN - 02/19/2013 6:45 AM EDT Pleasant, ms data visualization developer for pain, newman removed at 0615. Slept well turns per request. Denies nausea. * Melanie Yin MD - 02/18/2013 8:04 PM EDT General Surgery Post-op Note Lindsey Deleon is a 62 y.o. female s/p the following procedure: laparoscopic paraesophageal hernia repair with fundoplasty S: Denies nausea/vomiting, chest pain, SOB, or itchiness. Pain well controlled, only complaint is of shoulder pain on the left 2/2 insufflation crepitus. Denies CP/SOB/radiating substernal pressure. O: Temp: [36.4 ??C (97.5 ??F)-37 ??C (98.6 ??F)] Heart Rate: [73-99] Resp: [13-21] BP: (128-180)/(66-87) SpO2: [92 %-96 %] I/O last 3 completed shifts: In: 1877 [I.V.:1877] Out: 272 [Urine:260; Blood:12] Physical Exam Gen: A&Ox3, NAD, lying comfortably in bed, washcloth to forehead, speaking full sentences CV: Regular rate (80's), no JVD HEENT: + crepitus over L>R acromion Pulm: CTAB throughout, comfortable on 3L NC Abd: Soft, mild ttp, nondistended port sites clean and dry Extr: WWP, moving all 4 extremities, no c/c/e, venodynes in place No results found for this basename: WBC:2,HGB:2,PLATELET:1 in the last 168 hours No results found for this basename: NA:2,K:2,CL:2,CO2:2 in the last 168 hours No results found for this basename: BUN:2,CREATININE:2 in the last 168 hours Imaging Postop CXR: None A/P Lindseysa Bibi Deleon is a 62 y.o. female s/p laparoscopic paraesophageal hernia repair with fundoplasty currently in stable condition and recovering well. Continue current management. MELANIE YIN MD 02/18/2013 * Dolores Green RN - 02/18/2013 7:48 PM EDT Pt given CABINETMAKER MAINTENANCE button with instructions for use; appears to understand. Report to Concepc[place] in [facility]. * Shaista Feliz RN - 02/18/2013 7:09 PM EDT Break relief. Warm packs applied to bilat shldrs for c/o discomfort - ? Due to gas from OR. documented in this encounter H&P Notes * Ismael Hernandez MD - 02/18/2013 1:51 PM EDT No change in the patient's H&P as documented by Dr Calvin on 01/30/13. Denies any recent illness, fever or cough. Lungs clear. Heart with regular rate and rhythm. Ready to proceed with planned procedure. documented in this encounter Miscellaneous Notes * Miscellaneous - Provider, Scanning - 02/19/2013 11:27 PM EDT * Discharge Summary - Oswaldo-Dung Encinas MD - 02/19/2013 10:24 AM EDT GENERAL SURGERY Division of Colon & Rectal Surgery Inpatient - Discharge Summary Patient Name: Lindsey Deleon Patient Age: 62 y.o. Birthdate: 1950 Admit date: 02/18/2013 Discharge date: 02/19/2013 Attending Physician: Mireya Calvin MD CC This Visit: Patient Active Problem List Diagnoses Date Noted ??? IBS (irritable bowel syndrome) 12/21/2012 ??? Constipation 12/21/2012 ??? GERD (gastroesophageal reflux disease) 10/11/2012 ??? HTN (hypertension) 10/11/2012 ??? Hypercholesteremia 10/11/2012 ??? Rheumatoid arthritis 10/11/2012 ??? Depression 10/11/2012 ??? Emphysema 10/11/2012 ??? Macular degeneration 10/11/2012 ??? CHEMA (obstructive sleep apnea) 04/11/2011 HPI: Lindsey Deleon is a 62 y.o. female with large symptomatic paraesophageal hernia. Following review of therapeutic options, she elected to undergo a laparoscopic paraesophageal hernia repair and Toupet fundoplication. Summary of Hospital Course: Lindsey Deleon is a 62 y.o. female admitted on 02/18/2013 for a laparoscopic paraesophageal hernia repair and Toupet fundoplication. He tolerated the procedure well, and was admitted to the floor in stable condition thereafter. Once pain was adequately controlled on oral medications, he was tolerating a diet, and was ambulating and voiding at baseline, he was deemed medically appropriate for discharge to home on 1 Day Post-Op. Updated Allergies/ADRs: Allergies Allergen Reactions ??? Latex Itching Operations/Major Procedures: Operations: 02/18/2013 Surgeon(s) and Role: * Mireya Calvin MD - Primary * Ismael Hernandez MD - Resident-Surgeon Chief: Procedure(s): LAPAROSCOPIC PARAESOPHAGEAL HERNIA REPAIR W/FUNDOPLASTY, W/O MESH MODIFIER TOUPET FUNDOPLASTY Important Studies and Lab Data: Recent Labs Basename 02/19/13 0635 WBC 11.4* HGB 12.7 HCT 36.8 PLATELET 226 PT -- INR -- PTT -- Recent Labs Basename 02/19/13 0635 NA 138 K 3.7 CL 102 CO2 27 BUN 13 CREATININE 0.57* GLUCOSE 101 CALCIUM 8.6 MAGNESIUM 0.75 PHOS -- Discharge Examination: Last value Range last 24 hrs Temperature Temp: 36.8 ??C (98.2 ??F) Temp: [36.4 ??C (97.5 ??F)-37 ??C (98.6 ??F)] Heart Rate Heart Rate: 94 Heart Rate: [83-99] Blood Pressure BP: 141/63 mmHg BP: (128-180)/(63-87) Respiratory Rate Resp: 16 Resp: [13-21] SpO2 SpO2: 95 % SpO2: [92 %-99 %] Intake/Output Summary (Last 24 hours) at 02/19/13 1514 Last data filed at 02/19/13 1055 Gross per 24 hour Intake 2237 ml Output 2470 ml Net -233 ml Physical Exam: Gen: Resting in bed, NAD, oriented x3 Pulm: CTAB, no crackles/wheeze Card: Regular rate/rhythm, no m/r/g, no JVD Abd: Non-distended, normal BS, soft, moderately tender to palpation, incision dressings c/d/i Ext: WWP, no edema Discharge Medications: The following medications have been prescribed for you. If you notice any adverse reactions to your medications, please contact your primary care physician immediately or go tothe nearest Emergency Department. Medications prior to admission that will be resumed at discharge: Medication Sig Dispense Refill ??? POLYETHYLENE GLYCOL 3350 (MIRALAX ORAL) Take by mouth. ??? LACTOBACILLUS RHAMNOSUS GG (CULTURELLE ORAL) Take by mouth daily. ??? dexlansoprazole (DEXILANT) 60 mg CpDM Take 60 mg by mouth daily. 90 tablet 3 ??? citalopram (CELEXA) 20 mg tablet Take 2 tablets by mouth daily. 60 tablet ??? IPRATROPIUM/ALBUTEROL SULFATE (COMBIVENT INHL) Inhale 14.7 g into the lungs 4 times daily. ??? ziprasidone (GEODON) 20 mg capsule Take 20 mg by mouth 2 times daily (with meals). ??? aspirin 325 mg tablet Take 325 mg by mouth daily. ? ? BETA-CAROTENE,A, W-C & E/MIN (OCUVITE ORAL) Take by mouth. ??? Cholecalciferol, Vitamin D3, (VITAMIN D-3) 5,000 unit Tab Take by mouth. ??? albuterol (PROVENTIL HFA;VENTOLIN HFA) 90 mcg/Actuation inhaler Inhale 2 puffs into the lungs every 4 hours as needed. Use with spacer Indications: Chronic Obstructive Pulmonary Disease ??? FOLIC ACID ORAL ??? ezetimibe-simvastatin (VYTORIN 10-40) 10-40 mg per tablet ??? hydrochlorothiazide (HYDRODIURIL) 50 mg tablet ??? bisacodyl (DULCOLAX) [address] 1 suppository rectally daily. 60 suppository 12 ??? CARBOXYMETHYLCELLULOSE SODIUM (REFRESH TEARS OPHT) Apply to eye 2 times daily. New medications prescribed at discharge: Medication Sig Dispense Refill ??? acetaminophen (TYLENOL) 650 mg/20.3 mL oral liquid Take 20.3 mLs by mouth every 4 hours as needed. 350 mL 1 ??? OXYcodone (ROXICODONE) 5 mg/5 mL solution Take 5-10 mLs by mouth every 4 hours as needed for Pain. 350 mL 0 PCP: DEMETRA BLANKENSHIP, BIT SHARPENER, Scheduled Appointments: The following appointments have been scheduled on your behalf: Future Appointments Date Time Provider Department Center 03/19/2013 11:40 AM Mireya Calvin MD [facility] Patient Instructions: Call your doctor if you develop: Fever greater than 101.3 degrees Farenheit (38.5 degrees Celcius), chills, nausea or vomiting. Alsocall if you develop severe pain not relieved by your prescribed oral pain medicine. CALL THE GENERAL SURGERY CLINIC DURING WORKING HOURS AT , OR CALL AFTERCLINIC HOURS, WEEKENDS AND HOLIDAYS: ASK FOR THE GENERAL SURGERY RESIDENT DIESEL DINKEY ENGINEER IF ANY OF THE ABOVE OCCUR. Activity level: Increase your activity slowly. You may tire easily, so frequent rest periods may be necessary. Do not lift more than 10 pounds for 4 weeks. Walk three times a day. Use common sense. Don't exhaust yourself. Diet: You should follow a post Willem diet, as instructed by the customs officer in the hospital for a period of approximately 3 weeks. The main purpose of this diet is to have you consume foods that will slide easily down into your stomach. Most foods when well chewed should pass through the esophagus and into your stomach. However, patients do not always chew foods well enough. Slow, thorough chewing isrecommended. Moistening foods with sauce, gravy, syrup or other liquids can be helpful. You should consume only very soft, small particle foods. You should not eat bread or drink carbonated beverages. You should start with more bland foods and if these are tolerated you may increase the amount of spice in your food. If you find there are foods that don't agree with you, try these sparingly until y ou can tolerate them. You need to remain in an upright position for 30-60 minutes after you eat. You may find that you need to eat smaller meals with frequent between meal snacks to get enough calories. Pills: Please crush all pills for 4 weeks. Pain: Roxicodone elixir for pain, as directed. Driving: Do not drive while taking narcotic pain medications such as Roxicodone. Shower/Bath: You may shower and let water run over wound 48 hours after your surgery. No soaking baths or swimming for 2 weeks from surgery. Wound Care: Once showering, wash your incision(s) daily with soap and rinse well, pat dry. Assess for any signsof infection such as increased redness, pain, warmth or drainage. The Steri-Strips will fall off in7-10 days. The brown bandaids can be removed at any time. Follow-up: You have a follow-up appointment scheduled to see Dr. Calvin at the [facility], You will receive a letter in the mail confirming the appointment date and time. Your follow-up is very important to us. Please call [phone] if you do not hear from us within 7 days of discharge or if you need to change the appointment date/time. Call your doctor if: Please call your doctor immediately or go to an Emergency Department if you notice worsening pain not controlled by pain medications, uncontrolled headache, vision changes, chest pain, difficulty breathing, persistent nausea and vomiting, new redness or swelling in any extremities, new onset weakness or changes in sensation, or for any fevers greater than 101.3 F. Outpatient Services/Studies: No discharge procedures on file. Provider Instructions Call your doctor if you develop: Fever greater than 101.3 degrees Farenheit (38.5 degrees Celcius), chills, nausea or vomiting. Alsocall if you develop severe pain not relieved by your prescribed oral pain medicine. CALL THE GENERAL SURGERY CLINIC DURING WORKING HOURS AT , OR CALL AFTERCLINIC HOURS, WEEKENDS AND HOLIDAYS: ASK FOR THE GENERAL SURGERY RESIDENT DIESEL DINKEY ENGINEER IF ANY OF THE ABOVE OCCUR. Activity level: Increase your activity slowly. You may tire easily, so frequent rest periods may be necessary. Do not lift more than 10 pounds for 4 weeks. Walk three times a day. Use common sense. Don't exhaust yourself. Diet: You should follow a post Willem diet, as instructed by the customs officer in the hospital for a period of approximately 3 weeks. The main purpose of this diet is to have you consume foods that will slide easily down into your stomach. Most foods when well chewed should pass through the esophagus and into your stomach. However, patients do not always chew foods well enough. Slow, thorough chewing isrecommended. Moistening foods with sauce, gravy, syrup or other liquids can be helpful. You should consume only very soft, small particle foods. You should not eat bread or drink carbonated beverages. You should start with more bland foods and if these are tolerated you may increase the amount of spice in your food. If you find there are foods that don't agree with you, try these sparingly until y ou can tolerate them. You need to remain in an upright position for 30-60 minutes after you eat. You may find that you need to eat smaller meals with frequent between meal snacks to get enough calories. Pills: Please crush all pills for 4 weeks. Pain: Roxicodone elixir for pain, as directed. Driving: Do not drive while taking narcotic pain medications such as Roxicodone. Shower/Bath: You may shower and let water run over wound 48 hours after your surgery. No soaking baths or swimming for 2 weeks from surgery. Wound Care: Once showering, wash your incision(s) daily with soap and rinse well, pat dry. Assess for any signsof infection such as increased redness, pain, warmth or drainage. The Steri-Strips will fall off in7-10 days. The brown bandaids can be removed at any time. Follow-up: You have a follow-up appointment scheduled to see Dr. Calvin at the [facility]. You will receive a letter in the mail confirming the appointment date and time. Your follow-up is very important to us. Please call [phone] if you do not hear from us within 7 days of discharge or if you need to change the appointment date/time. Special Instructions Given to Patient at Discharge: An After Visit Summary was printed and given to the patient. CC: DEMETRA BLANKENSHIP APRN Signed: GENERAL SURGERY Division of Colon & Rectal Surgery 02/19/2013 * Op Note - Mireya Calvin MD - 02/18/2013 5:24 PM EDT [facility] Operative Note Patient Name: Lindsey Deleon : [id number] MR#: [id number] Case Date: 02/18/2013 Surgeon: Surgeon(s) and Role: * Mireya Calvin MD - Primary * Ismael Hernandez MD - Resident-Surgeon Chief Preoperative diagnosis: paraesophageal hernia Postoperative diagnosis: paraesophageal hernia Procedure(s): LAPAROSCOPIC PARAESOPHAGEAL HERNIA REPAIR W/FUNDOPLASTY, W/O MESH MODIFIER TOUPET FUNDOPLASTY Indications For Procedure: The patient is an 62-year-old female with a large symptomatic paraesophageal hernia. Following review of therapeutic options, she has elected to undergo a laparoscopic paraesophageal hernia repair and Toupet fundoplication. Findings: The patient was noted to have the majority of her stomach up above the level of the diaphragm. She underwent reduction of the stomach back in the abdomen, removal of the hernia sac, closureof the diaphragm using pledgeted sutures, a 270 degree Toupet fundoplication and a gastropexy. Overall, she tolerated the procedure well and was taken to the Recovery Room postoperatively in stable condition. Description of Procedure: The patient was brought to the Operating Room and placed in the supine position. Following uneventful induction of general endotracheal anesthesia, a Newman catheter was placed as well as an orogastric tube. Her legs were then spread using straight leg extensions and her abdomen as prepped and draped in the usual sterile fashion. A small incision was made at the base of the umbilicus followed by insertion of a Veress needle into the peritoneal cavity. A pneumoperitoneumto 15 mmHg pressure was obtained without difficulty. The first trocar was a 10 mm trocar placed 15 cm below the costal margin just to the left of midline. Through this, a 10 mm trocar was placed followed by insertion of a 45 degree angle laparoscope. All remaining trocars were inserted under directvisualization. The next trocar was a 10 mm trocar placed 10 cm along the left costal margin. The next trocar was a 5 mm trocar placed 20 cm along the left costal margin. The next trocar was a 5 mm trocar placed midway between the left lateral trocar and the umbilicus. The next trocar was a 10 mm trocar placed 15 cm along the right costal margin. Through this, an expandable fan retractor was positioned below the left lobe of the liver, which was retracted cephalad and held in place using a mechanical arm. The last trocar was a 5 mm trocar placed in the right epigastrium. With the surgeon standing between the patient's legs, the upper abdomen was visualized. The patient was noted to have the entire stomach up above the level of the diaphragm. Using atraumatic grasping forceps, the greater curvature of the stomach was grasped and reduced into the abdominal cavity beginning approximately one half the way down the greater curvature of the stomach. All short gastric vessels and posterior gastric attachments were divided up to the base of the left teetee using a harmonic scalpel. At this point, the hernia sac was incised at its junction with the left teetee and using a combination of blunt and sharp dissection, the hernia sac was disconnected from its attachments to the esophageal hiatus in a circumferential manner around the esophageal hiatus. At this point, the stomach was noted to stay in the abdominal cavity without tension. Careful posterior esophageal dissection was then performed and a [place] drain was introduced and used to encircle the esophagus at the gastroesophageal junction. The [place] drain was held in place using an Endoloop. Further paraesophageal dissection was performed until we had obtained approximately 3 cm of tension-free intra- abdominal esophagus. At thispoint, the diaphragmatic hiatus was closed using multiple interrupted sutures of 0 Neurolon with pledgets. The hernia sac redundancy was then excised and sent off as specimen. The fundus was then wrap ped from a left to right direction posterior to the esophagus. A 60 Luxembourgish bougie was passed by Anesthesia down the esophagus and into the stomach and with the bougie in place a posterior 270 degree fundoplication was performed. This was done with 3 2-0 Neurolon sutures placed at the 10 and 2 o'clock position on the esophagus with bites between the esophagus and the fundus. Following completion of the fundoplication, the bougie was removed. Two additional sutures between the posterior aspect ofthe wrap and the diaphragm were then placed for posterior fixiation. At this point, the abdomen wasinspected. Excellent hemostasis was assured. The abdomen was irrigated. The [place] drain was cut and removed. The liver retractor was released and removed. The pneumoperitoneum was evacuated. All trocar sites were inspected upon removal of the trocars and noted to be excellent for hemostasis. All trocar sites were closed at the skin level using a running subcuticular closure of 4-0 Vicryl followed by Steri-Strips followed by Band-Aids. Overall, the patient tolerated the procedure well and was taken to the Recovery Room postoperatively in stable condition. * OR Attestation - Mireya Calvin MD - 02/18/2013 5:23 PM EDT Attestation: Case Date: 02/18/2013 I performed this without a resident MIREYA CALVIN MD 02/18/2013 * Brief Op Note - Mireya Calvin MD - 02/18/2013 5:22 PM EDT Brief Operative Note Patient Name: Lindsey Deleon : [id number] MR#: [id number] Case Date: 02/18/2013 Surgeon: Surgeon(s) and Role: * Mireya Calvin MD - Primary * Ismael Hernandez MD - Resident-Surgeon Chief Preoperative diagnosis: paraesophageal hernia Postoperative diagnosis: paraesophageal hernia Procedure(s): LAPAROSCOPIC PARAESOPHAGEAL HERNIA REPAIR W/FUNDOPLASTY, W/O MESH MODIFIER TOUPET FUNDOPLASTY Anesthesia: General Findings: large hiatal hernia Complications: none Fluids: 1600cc Estimated Blood Loss: 12cc Drains: none Disposition: pacu Condition: stable (Please see the Surgical Encounter Summary for any Implant and Specimen details pertinent to this patient.) * Miscellaneous - Provider, Scanning - 02/18/2013 11:59 AM EDT documented in this encounter Plan of Treatment Upcoming Encounters Date Type Department Care Team (Late st Contact Info) Description 02/06/2025 2:40 PM EDT Office Visit Cardiology at [address] [phone] [facility] [place] [address] Scheduled Procedures Name Priority Associated Diagnoses Date/Ti me EGD, UPPER GI ENDOSCOPY (WRV U 2.09) Incontinence of feces, unspecified fecal incontinence type Dysphagia, unspecified type COLONOSCOPY, DIAGNOSTIC (WRV U 3.26) Incontinence of feces, unspecified fecal incontinence type Dysphagia, unspecified type documented as of this encounter Procedures Procedure Name Priority Date/Time Associated Diagnosis Comments DIFFERENTIAL, AUTOMATED Routine 02/20/20 13 6:35 AM EDT CBC (WITH DIFF) Routine 02/19/2013 6:35 AM EDT MAGNESIUM Routine 02/19/2013 6:35 AM EDT BASIC METABOLIC PANEL (NON-FASTING) Routine 02/19/2013 6:35 AM EDT MODIFIER TOUPET FUNDOPLASTY 02/18/2013 2:36 PM EDT paraesophageal hernia LAPAROSCOPIC PARAESOPHAGEAL HERNIA REPAIR W/FUNDOPLASTY, W/O MESH (WRVU 26.6) 02/18/2013 2:36 PM EDT paraesophageal hernia documented in this encounter Results * (ABNORMAL) Differential, Automated (02/19/2013 6:35 AM EDT) Neutrophils % 66.8 34.0 - 71.0 % CERNER MILLENNIUM Neutr Abs (ANC) 7.62(H) 1.50 - 6.30 x10(3)/mc L CERNER MILLENNIUM Lymphocytes % 21.2 19.0 - 53.0 % CERNER MILLENNIUM Lymphocytes Abs 2.4 1.0 - 3.6 x10(3)/mc L CERNER MILLENNIUM Monocytes % 11.3 4.0 - 13.0 % CERNER MILLENNIUM Monocyte Abs 1.3(H) 0.2 - 1.0 x10(3)/mc L CERNER MILLENNIUM Eosinophils % 0.3 0.0 - 7.0 % CERNER MILLENNIUM Eosinophils Abs 0.0 0.0 - 0.5 x10(3)/mc L CERNER MILLENNIUM Basophils % 0.1 0.0 - 2.0 % CERNER MILLENNIUM Basophils Abs 0.0 0.0 - 0.2 x10(3)/mc L CERNER MILLENNIUM Immature Gran % 0.30 0.00 - 0.66 % CERNER MILLENNIUM Comment: Immature granulocytes(IG's)percentage and absolute count will include metamyelocytes, myelocytes, and promyelocytes. Blood smears from CBCs yielding IG's will be scanned manually for concordance. If this scan disagrees with the automated IG or if promyelocytes are noted, a manual differential will be performed. [place] Gran Abs 0.03 0.00 - 0.05 x10(3)/mc L CERNER MILLENNIUM Blood specimen (specimen) 02/19/2013 6:35 AM EDT 02/19/2013 6:45 AM EDT Ismael Hernandez MD HEMATOLOGY ORD ERABLES CERNER MILLENNIUM * Magnesium (02/19/2013 6:35 AM EDT) Magnesium 0.75 0.69 - 1.07 mmol/L CERNER MILLENNIUM Blood specimen (specimen) 02/19/2013 6:35 AM EDT 02/19/2013 6:45 AM EDT Narrative Resulting Agency Comment Spec In Lab Ismael Hernandez MD CHEMISTRY ORDE SIA Performing Organization Address City/[facility]/ZIP Co de Phone Number CERNER DHRUVENNIUM * (ABNORMAL) Basic Metabolic Panel (non-fasting) (02/19/2013 6:35 AM EDT) Glucose Lvl 101 60 - 199 mg/dL CERNER MILLENNIUM Comment:Diabetes: >=200 mg/d L plus symptoms BUN 13 8 - 18 mg/dL CERNER MILLENNIUM Creatinine 0.57(L) 0.70 - 1.20 mg/dL CERNER MILLENNIUM Comment: Please note that the pediatric reference intervals supplied above were not validated at [facility]. Results from pediatric patients should be interpreted in conjunction to the patient's age, height and muscle mass. Sodium 138 135 - 145 mmol/L CERNER MILLENNIUM Potassium 3.7 3.5 - 5.0 mmol/L CERNER MILLENNIUM Comment: Please note: ??Patients with WBC >100,000 may have falsely elevated Potassium levels. ??For accurate Potassium quantification in these patients send serum separator tube (gold top) for subsequent determinations. ??Contact the Clinical Chemistry Laboratory if there are any questions. Chloride 102 98 - 107 mmol/L CERNER MILLENNIUM CO2 27 22 - 31 mmol/L CERNER MILLENNIUM Anion Gap 9 5 - 15 mmol/L CERNER MILLENNIUM Calcium 8.6 8.5 - 10.5 mg/dL CERNER MILLENNIUM Estimated GFR >60 >=60 [facility] Comment: The National Kidney Disease Education Program (NKDEP) has recommended all laboratories report estimated GFR (eGFR) along with plasma creatinine measurements to assist you with recognition of early kidney disease. Caveats: ??Plasma creatinine should be at steady-state (unchanged within the past week). For patients multiply eGFR by 1.2. The MDRD equation was developed using patients between the ages of 18 and 70 years. ?? The MDRD equation has not been validated for patients < 18 years of age and should not be used to assess renal function in the pediatric population. ??The MDRD eGFR equation will also overestimate the true GFR of patients above the age of 70. ??This overestimation is variable but increases with age. At present, NKDEP does NOT recommend using the MDRD equation for drug dosing purposes and pharmacists should continue to use their current dosing methods. In addition, numerical eGFR values greater than 60 ml/min/1.73 square meters should be treated as > 60, and not an exact number due to greater inaccuracies at these higher values. Per NKDEP, they classify normal renal function as any GFR >60ml/min/1.73 square meters; chronic kidney disease when GFR <60, and renal failure when GFR <15. ??This calculation may not be valid for patients with atypical muscle mass (very lean or obese), acute renal failure, and in patients with diabetic kidney disease. References: http://nkdep.nih.gov/resources/NKDEP_Suggestn4Labs_0606_508.pdf http://www.kidney.org/professionals/kls/pdf/faq_gfr.pdf Ryan K, Salvador NA, Elias AK, Og TS, Mynor AD, Mohsen MARTINA. Relative performance of the MDRD and CKD-EPI equations for estimating glomerular filtration rate among patients with varied clinical presentations. Clin J Am Soc Nephrol;6:1963-72. Blood specimen (specimen) 02/19/2013 6:35 AM EDT 02/19/2013 6:45 AM EDT Narrative Resulting Agency Comment Spec In Lab Ismael Hernandez MD CHEMISTRY RAYMOND STOVALL KENN SOTOMAYOR * (ABNORMAL) CBC (with Diff) (02/19/2013 6:35 AM EDT) WBC 11.4(H) 4.0 - 10.0 x10(3)/mcL CERCHRISTEL MILLENNIUM RBC 3.89(L) 3.93 - 5.22 x10(6)/mcL CERNER MILLENNIUM Hemoglobin 12.7 11.2 - 15.7 gm/dL CERNER MILLENNIUM Hematocrit 36.8 34.0 - 45.0 % CERNER MILLENNIUM MCV 94.6(H) 79.0 - 94.0 fL CERNER MILLENNIUM MCH 32.6(H) 26.6 - 32.2 pg CERNER MILLENNIUM MCHC 34.5 32.0 - 36.5 gm/dL CERNER MILLENNIUM Platelets 226 145 - 370 x10(3)/mcL CERNER MILLENNIUM RDWSD 43.8 35.0 - 46.0 fL CERNER MILLENNIUM RDWCV 12.7 10.9 - 14.4 % CERNER MILLENNIUM MPV 9.7 9.0 - 12.0 fL CERNER MILLENNIUM Blood specimen (specimen) 02/19/2013 6:35 AM EDT 02/19/2013 6:45 AM EDT Narrative Resulting Agency Comment Spec In Lab Ismael Hernandez MD HEMATOLOGY ORD ERABLES KENN SOTOMAYOR documented in this encounter Visit Diagnoses Not on filedocumented in this encounter Administered Medications Inactive Administered Medications - up to 3 most recent administrations Medication Order MAR Action Action Date Dose Rate Site acetaminophen (TYLENOL) 650 mg/20.3 mL oral liquid 650 mg 650 mg, Oral, EVERY 4 HOURS PRN, Starting on Mon02/19/13 at 1120, Until Mon02/19/13 at 1759, Fever, Maximum dose of acetaminophen is 4,000 mg from all sources in 24 hours., Routine Given 02/19/2013 11:51 AM EDT 650 mg albuterol (PROVENTIL HFA;VENTOLIN HFA) 90 mcg/actuation inhaler 2 puff 2 puff, Inhalation, EVERY 4 HOURS PRN, Starting on Mon02/18/13 at 1755, Until Mon02/19/13 at 1759, Wheezing, Shortness of Breath, Routine Given 02/19/2013 3:55 AM EDT 2 puffs albuterol-ipratropium (COMBIVENT) inhaler 2 puff 2 puff, Inhalation, EVERY 4 HOURS SCHEDULED, First dose on Mon02/18/13 at 2000, Until Discontinued Given 02/19/2013 8:00 AM EDT 2 puffs Given 02/19/2013 4:00 AM EDT 2 puffs Given 02/19/2013 12:00 AM EDT 2 puffs ceFAZolin (ANCEF) 2g in dextrose 5% 50 mL 2 g, Intravenous, ONCE, 1 dose, On Mon02/18/13 at 1245, Redose after 4 hours., Day of Surgery (Day of Procedure), Indication for (Active or Suspected): Prophylaxis Given by Other 02/18/2013 3:01 PM EDT 2 g heparin (porcine) subcutaneous injection 5,000 Units 5,000 Units, Subcutaneous, EVERY 8 HOURS SCHEDULED, First dose on Mon02/18/13 at 2200, Until Discontinued, Routine Given 02/19/2013 6:00 AM EDT 5,000 Units Given by Other 02/18/2013 10:00 PM EDT 5,000 Units HYDROmorphone (DILAUDID) injection 0.2-0.4 mg 0.2-0.4 mg, Intravenous, EVERY 5 MIN PRN, Starting on Mon02/18/13 at 1733, Until Mon02/18/13 at 1951, Pain, For moderate pain give: 0.2 mg every 5 minute prn For severe pain give: 0.4 mg every 5 minutes prn Maximum dose: 4 mg per hour Hold for respiratory rate less than 10 per minute., PACU Recovery, Routine Given 02/18/2013 6:33 PM EDT 0.4 mg lactated ringers infusion 1,000 mL 1,000 mL, at 100 mL/hr, Intravenous, CONTINUOUS, Starting on Mon02/18/13 at 1245, Until Mon02/18/13 at 2005, Day of Surgery (Day of Procedure) New Bag 02/18/2013 12:45 PM EDT 1,000 mLs 100 mL/hr lactated ringers infusion 1,000 mL 1,000 mL, at 100 mL/hr, Intravenous, CONTINUOUS, Starting on Mon02/18/13 at 1815, Until Mon02/19/13 at 0719 New Bag 02/19/2013 4:10 AM EDT 1,000 mLs 100 m L/hr New Bag 02/18/2013 6:25 PM EDT 1,000 mLs 100 mL/hr morphine 1 mg/mL [employer] 30 mL Intravenous, [employer] MAINTENANCE ONLY, Starting on Mon02/18/13 at 1815, Until Mon02/19/13 at 0719 New Syringe/Cartridge 02/18/2013 6:25 PM EDT mL/hr sodium chloride 0.9 % flush 5 mL 5 mL, Intravenous, EVERY 12 HOURS, First dose on Mon02/18/13 at 1245, Until Discontinued, Day of Surgery (Day of Procedure) Given by Other 02/18/2013 12:45 PM EDT 5 mLs sodium chloride 0.9 % flush 5 mL 5 mL, Intravenous, EVERY 12 HOURS, First dose on Mon02/18/13 at 2200, Until Discontinued Given 02/19/2013 10:00 AM EDT 5 mLs Given 02/18/2013 10:00 PM EDT 5 mLs documented in this encounter Active and Recently Administered Medications Times are shown in EDT. Scheduled Medication Order 02/17/2013 02/18/2013 02/19/2013 albuterol-ipratropium (COMBIVENT) inhaler 2 puff (CANCELED) 2 puff, Inhalation, EVERY 4 HOURS SCHEDULED, First dose on Mon02/18/13 at 2000, Until Discontinued 1999 (Not Given - Provider: Concepción Gallegos RN - Reason: Medication not available) 0000 (Given - Provider: Marcial De Jesus RN)0400 (Given - Provider: Marcial De Jesus RN)0800 (Given - Provider: Eduar Rodríguez RN)1200 (Due) ceFAZolin (ANCEF) 2g in dextrose 5% 50 mL (CANCELED) 2 g, Intravenous, ONCE, 1 dose, On Mon02/18/13 at 1245, Redose after 4 hours., Day of Surgery (Day of Procedure), Indication for (Active or Suspected): Prophylaxis 1501 (Given by Other - Provider: Shaista Feliz RN - Comment: Given in OR) heparin (porcine) subcutaneous injection 5,000 Units (CANCELED) 5,000 Units, Subcutaneous, EVERY 8 HOURS SCHEDULED, First dose on Mon02/18/13 at 2200, Until Discontinued, Routine 2200 (Given by Other - Provider: Marcial De Jesus RN) 0600 (Given - Provider: Marcial De Jesus RN)1400 (Due) sodium chloride 0.9 % flush 5 mL (CANCELED) 5 mL, Intravenous, EVERY 12 HOURS, First dose on Mon02/18/13 at 1245, Until Discontinued, Day of Surgery (Day of Procedure) 1245 (Given by Other - Provider: Concepción Gallegos RN) sodium chloride 0.9 % flush 5 mL (CANCELED) 5 mL, Intravenous, EVERY 12 HOURS, First dose on Mon02/18/13 at 2200, Until Discontinued 2200 (Given - Provider: Concepción Gallegos RN) 1000 (Given - Provider: Eduar Rodríguez RN) Continuous Medication Order 02/17/2013 02/18/2013 02/19/2013 lactated ringers infusion 1,000 mL (CANCELED) 1,000 mL, at 100 mL/hr, Intravenous, CONTINUOUS, Starting on Mon02/18/13 at 1245, Until Mon02/18/13 at 2005, Day of Surgery (Day of Procedure) 1245 (New Bag - Provider: Concepción Gallegos RN) lactated ringers infusion 1,000 mL (CANCELED) 1,000 mL, at 100 mL/hr, Intravenous, CONTINUOUS, Starting on Mon02/18/13 at 1815, Until Mon02/19/13 at 0719 1825 (New Bag - Provider: Dolores Green, RN) 0410 (New Bag - Provider: Marcial De Jesus, RANGEL) morphine 1 mg/mL [employer]CE 30 mL (CANCELED) Intravenous, [employer]TENANCE ONLY, Starting on Mon02/18/13 at 1815, Until Mon02/19/13 at 0719 1825 (New Syringe/Cartridge - Provider: Dolores Green, RANGEL) PRN Medication Order 02/17/2013 02/18/2013 02/19/2013 acetaminophen (TYLENOL) 650 mg/20.3 mL oral liquid 650 mg 650 mg, Oral, EVERY 4 HOURS PRN, Starting on Mon02/19/13 at 1120, Until Mon02/19/13 at 1759, Fever, Maximum dose of acetaminophen is 4,000 mg from all sources in 24 hours., Routine 1151 (Given - Provid er: Eduar Rodríguez RN) albuterol (PROVENTIL HFA;VENTOLIN HFA) 90 mcg/actuation inhaler 2 puff (CANCELED) 2 puff, Inhalation, EVERY 4 HOURS PRN, Starting on Mon02/18/13 at 1755, Until Mon02/19/13 at 1759, Wheezing, Shortness of Breath, Routine 0355 (Given - Provid er: Marcial De Jesus RN) BUpivacaine (PF) (MARCAINE) 0.25 % (2.5 mg/mL) injection (CANCELED) ONCE PRN, Starting on Mon02/18/13 at 1618, Until Mon02/18/13 at 1908, Intra-Operative (Intra-Procedure), Routine 1618 (Given - Provider: Mireya Calvin MD - Comment: Total 9mL.) HYDROmorphone (DILAUDID) injection 0.2-0.4 mg (CANCELED) 0.2-0.4 mg, Intravenous, EVERY 5 MIN PRN, Starting on Mon02/18/13 at 1733, Until Mon02/18/13 at 1951, Pain, For moderate pain give: 0.2 mg every 5 minute prn For severe pain give: 0.4 mg every 5 minutes prn Maximum dose: 4 mg per hour Hold for respiratory rate less than 10 per minute., PACU Recovery, Routine 1833 (Given - Provider: Dolores Green RN) OXYcodone (ROXICODONE) 5 mg/5 mL solution 5-10 mg 5-10 mg, Oral, EVERY 4 HOURS PRN, Starting on Mon02/19/13 at 0718, Until Mon02/19/13 at 1759, Pain, Routine documented in this encounter Care Teams Web Coordinator Relationship Specialty Start Date End Date Demetra Blankenship APRN PCP - General 10/19/12 12/31/17 documented as of this encounter
--- OUTSIDE RECORDS SUMMARY | 2024-06-14 01:50 | XMS_ITS | Encounter Summary ---
[place] [address] Care Team Providers Care Lithographic Etcher Name Role Phone Demetra Goff APRN Primary Care Provider [phone] Encounter Details Date Type Department Care Team (Latest Contact Info) Description 07/18/2017 9:01 AM EDT - 07/18/2017 11:59 PM EDT Hospital Encounter Non[place] [id number] Dorota Montaño MD [facility] [address] [place]ASC[place] [address] PVD (peripheral vascular disease) with claudication Discharge Disposition: Home Social History Tobacco [...] Sign Reading Time Taken Comments Blood Pressure 142/75 07/18/2017 11:39 AM EDT Post DSE: 139/66 Pulse 71 07/18/2017 11:39 AM EDT Post DSE: 79 Temperature - - Respiratory Rate 14 07/18/2017 11:3 9 AM EDT Post DSE: 17 Oxygen Saturation 96% 07/18/2017 11: 39 AM EDT Post DSE: 94% on Room Air Inhaled Oxygen Concentration - - Weight 93.2 kg (205 lb 7.5 oz) 07/18/2017 11:39 AM EDT Height 162.6 cm (5' 4.02) 07/18/2017 1 1:39 AM EDT Body Mass Index 35.25 07/18/2017 11:39 AM EDT documented in this encounter Medications at Time [...] nystatin (MYCOSTATIN) Cream Apply topically. 03/21/2014 03/08/2023 KRILL OIL ORAL Take 1,000 mg by [...] Indications: Hypothyroidism 10/11/2022 fluticasone (FLONASE) 50 mcg/actuation Hospers, SuspensionIndications :Seasonal allergic rhinitis 2 sprays by [...] PM EDT Office Visit Cardiology at [address] [phone] Rigoberto Diaz [place] [address] Scheduled Procedures Name Priority Associated Diagnoses Date/Ti me EGD, UPPER GI ENDOSCOPY (WRV U 2.09) Incontinence of feces, unspecified fecal incontinence type Dysphagia, unspecified type COLONOSCOPY, DIAGNOSTIC (WRV U 3.26) Incontinence of feces, unspecified fecal incontinence type Dysphagia, unspecified type documented as of this encounter Procedures Procedure Name Priority Date/Time Associated Diagnosis Comments STRESS ECHO W CONTRAST W LMTD SPEC DOPP COLOR DOPP Routine 07/18/2017 11:30 AM EDT PVD (peripheral vascular disease) with claudication documented in this encounter Results * STRESS ECHO W CONTRAST W LMTD SPEC DOPP COLOR DOPP (07/18/2017 11:30 AM EDT) EF 65 HEARTLAB SYSTEM Anatomical Region Laterality Modality Other 07/18/2017 Narrative 07/18/2017 1:38 PM EDT Procedure: ?Stress Echocardiogram Patient: ?FIGUEREDO LINDSEY D ?(Age): 1950(66y) Med Rec#: ? [id number] ?Sex: ?F ? [place] Loc: ? [facility] [place]Ht / Wt: ??162(cm)/92.99(k Pt. Loc: ?Echo Lab ?BSA: ?1.97 Study Date: ?? 07/18/2017 ?Pt. Type: Tape: ? Referring: DOROTA MONTAÑO Referring: Dorota Montaño Reading: Andrse Garcia ([id number]) Auxiliary Equipment Operator: Candido Villalobos MS, [facility] Auxiliary Equipment Operator 2: Alethea Knott ([id number]) Nurse: Crista Evangelista Diagnosis: *ICD-10-PCS Peripheral vascular disease, unspecified (I73.9) Stage ? BP ?HR ? Rest ?142/75 ?71 ? Low dose ?156/99 ?75 ? Peak ?144/73 ?134 ? Recovery ?139/66 ?79 ? SUMMARY: 1. BASELINE: Normal global and segmental biventricular systolic function with an estimated ejection fraction of 65%. 2. STRESS: The peak dose of Dobutamine infused was 20 ug/kg/min. The patient achieved a maximum heart rate of 134 which is 88% of the maximum predicted heart rate (152 beats/min). The target heart rate was achieved. The patient was administered 3 mg of Metoprolol during recovery. The patient did not express feelings of chest discomfort. The blood pressure response was normal. This was a negative electrocardiographic stress test for ischemia. ?? 3. ECHOCARDIOGRAPHIC FINDINGS: Global left ventricular systolic function appears hyperdynamic. ?? 4. IMPRESSION: Normal dobutamine stress echocardiogram. ??There is no echocardiographic evidence of ischemia at this level of stress. 5. Other echo and stress findings as noted in report. Findings Rest: Left Ventricle: ? The left ventricle is probably normal in size. ?There is normal global left ventricular systolic function. ??Ejection fraction is estimated to be 65%. ?There are no left ventricular segmental wall motion abnormalities. Right Ventricle: ? The right ventricle is normal in size. ?Right ventricular global systolic function is probably normal. ?No pulmonary hypertension is noted. ?The estimated pulmonary artery systolic pressure is 27 mmHg. ?The estimated right atrial pressure is 3 mmHg. Aortic Valve: ? The aortic valve is probably tricuspid. ?All leaflets of the aortic valve are thickened. ?Systolic excursion of the aortic valve cusps is reduced. ?There is aortic annular calcification. ?The peak instantaneous trans-valvular gradient across ??the aortic valve is 23.43 mmHg. ?The mean trans-valvular gradient across ??the aortic valve is 14 mmHg. ?The calculated aortic valve area is 1.31 cm2. ?There is mild to moderate aortic valve stenosis. ?There is no evidence of aortic regurgitation. Mitral Valve: ? There is thickening of both mitral valve leaflets. ?Mild subvalvular thickening of the mitral valve is visualized. ?The papillary muscle heads appear calcified. ?There is mitral annular calcification. ?The mean gradient across the mitral valve is 4 mmHg. ?There is mild mitral stenosis present. ?There is mild (1+/4+) mitral regurgitation present. Tricuspid Valve: ? The tricuspid valve is probably normal. ?There is trace tricuspid regurgitation present. Pericardium: ? There is no pericardial effusion. Venous: ? The inferior vena cava appears normal in size. ?There is a greater than 50% respiratory change in the inferior vena cava dimension. Stress: ? EKG: normal sinus rhythm. ?EKG: right bundle branch block. ?The patient's oxygen saturation was 96% on Room Air ?The patient is on an anti-hypertensive; ??( ) hours since taken. ?The patient is taking a lipid lowering agent. Ezetimibe-Simvastatin 10-40 mg PO QD ?The patient is on an YUN inhibitor. Lisinopril 10 mg PO QD ?The patient is taking aspirin. ASA 325 mg PO QD ?The patient is taking a diuretic. HCTZ 12.5 mg PO QD Misc: ? Other echo and stress findings as noted in report. ?Definity contrast (one 1.5 ml vial)was used to enhance endocardial definition. Excess contrast was discarded. ?Stress echo, limited spectral Doppler, color Doppler and ECG interpretation performed. Findings Low dose: Stress: ? The patient's oxygen saturation was 96% on Room Air ?The patient is on no cardiac or blood pressure medications. Findings Peak: Predicted Values:The patient achieved a maximum heart rate of 134 which is 88% of the maximum predicted heart rate (152 beats/min). ??The target heart rate was achieved. Left Ventricle: ? Global left ventricular systolic function appears hyperdynamic. ?There are no left ventricular segmental wall motion abnormalities. Stress: ? The peak dose of Dobutamine infused was 20 ug/kg/min. ?The patient was administered 3 mg of Metoprolol during recovery. ?The patient did not express feelings of chest discomfort. ?The blood pressure response was normal. ?This was a negative electrocardiographic stress test for ischemia. ?This was a negative echocardiographic stress test. ?There is no echocardiographic evidence of myocardial ischemia at this level of stress. ?The patient's oxygen saturation was 100% on Room Air ?The patient is on no cardiac or blood pressure medications. Findings Recovery: Stress: ? The patient's oxygen saturation was 94% on Room Air ?The patient is on no cardiac or blood pressure medications. Diastolic/Systolic Function ?Value ?Units (Range) ? MV E-wave Vmax ?1.5 ?m/sec ? MV deceleration [id number] ?msec ? MV A-wave Vmax ?1.2 ?m/sec ? MV E:A ratio ?1.3 ?ratio ? Aortic Valve ?Value ?Units (Range) ? AV Vmax ? 2.4 ?m/sec ? AV VTI ?58.2 ? cm ? AV peak gradient ?23.4 ? mmHg ? AV mean gradient ?14 ? mmHg ? LVOT diameter ? 1.9 ?cm ? LVOT Vmax ? 1.1 ?m/sec ? LVOT VTI ?26.2 ? cm ? LVOT peak gradient ??5 ?mmHg ? LVOT mean gradient ??3 ?mmHg ? DOI (VTI) ? 0.5 ?ratio ? DOI (Vmax) ?0.5 ?ratio ? SV LVOT ? 74.3 ? ml ? AUREA (continuity Vmax1.3 ?cm2 ? AUREA (continuity Vmax0.7 ?cm2/m2 ? AUREA (continuity VTI)1.3 ?cm ? AUREA (continuity VTI)0.7 ?cm2/m2 ? Mitral Valve ?Value ?Units (Range) ? MV Vmax ? 1.6 ?m/sec ? MV VTI ?50.7 ? cm ? MV peak gradient ?10 ? mmHg ? MV mean gradient ?4 ?mmHg ? MV PHT ?112 ?msec ? MVA (PHT) ? 2 ?cm2 ? MVA (continuity VTI)1.5 ?cm2 ? Tricuspid Valve ?Value ?Units (Range) ? TR Vmax ? 2.5 ?m/sec ? TR peak gradient ?24 ? mmHg ? RAP ? 3 ?mmHg ? RVSP ?27 ? mmHg ? Wall Motion: Segment Name ?Rest ? Peak ? Base-Anteroseptal ?? Normal ? Normal ? Base-Anterior ? Normal ? Normal ? Base-Anterolateral ??Normal ? Normal ? Base-Posterolateral Normal ? Normal ? Base-Inferior ? Normal ? Normal ? Base-Inferoseptal ?? Normal ? Normal ? Mid-Anteroseptal ?Normal ? Normal ? Mid-Anterior ?Normal ? Normal ? Mid-Anterolateral ?? Normal ? Normal ? Mid-Posterolateral ??Normal ? Normal ? Mid-Inferior ?Normal ? Normal ? Mid-Inferoseptal ?Normal ? Normal ? [place]-Septal ? Normal ? Normal ? [place]-Anterior ? Normal ? Normal ? [place]-Lateral ?Normal ? Normal ? [place]-Inferior ? Normal ? Normal ? [place]-Tip ?Normal ? Normal ? This report has been electronically signed by: Andres Garcia M.D. ? 07/18/2017 13:27:36 Images reviewed and interpretation verified [facility] Cardiac Ultrasound Laboratory Procedure Note Andres Garcia MD - 07/18/2017 Procedure: Stress Echocardiogram Patient: BEA Mtz DOB(Age): 1950(66y) Med Rec#: [id number] Sex: F [place] Loc: [facility] [place] Ht / Wt: 162(cm)/92.99(k Pt. Loc: Echo Lab BSA: 1.97 Study Date: 07/18/2017 Pt. Type: Tape: Referring: DOROTA MONTAÑO Referring: Dorota Montaño Reading: Andres Garcia ([id number]) Auxiliary Equipment Operator: Candido Villalobos MS, [facility] Auxiliary Equipment Operator 2: Alethea Knott ([id number]) Nurse: Crista Evangelista Diagnosis: *ICD-10-PCS Peripheral vascular disease, unspecified (I73.9) Stage BP HR Rest 142/75 71 Low dose 156/99 75 Peak 144/73 134 Recovery 139/66 79 SUMMARY: 1. BASELINE: Normal global and segmental biventricular systolic function with an estimated ejection fraction of 65%. 2. STRESS: The peak dose of Dobutamine infused was 20 ug/kg/min. The patient achieved a maximum heart rate of 134 which is 88% of the maximum predicted heart rate (152 beats/min). The target heart rate was achieved. The patient was administered 3 mg of Metoprolol during recovery. The patient did not express feelings of chest discomfort. The blood pressure response was normal. This was a negative electrocardiographic stress test for ischemia. 3. ECHOCARDIOGRAPHIC FINDINGS: Global left ventricular systolic function appears hyperdynamic. 4. IMPRESSION: Normal dobutamine stress echocardiogram. There is no echocardiographic evidence of ischemia at this level of stress. 5. Other echo and stress findings as noted in report. Findings Rest: Left Ventricle: The left ventricle is probably normal in size. There is normal global left ventricular systolic function. Ejection fraction is estimated to be 65%. There are no left ventricular segmental wall motion abnormalities. Right Ventricle: The right ventricle is normal in size. Right ventricular global systolic function is probably normal. No pulmonary hypertension is noted. The estimated pulmonary artery systolic pressure is 27 mmHg. The estimated right atrial pressure is 3 mmHg. Aortic Valve: The aortic valve is probably tricuspid. All leaflets of the aortic valve are thickened. Systolic excursion of the aortic valve cusps is reduced. There is aortic annular calcification. The peak instantaneous trans-valvular gradient across the aortic valve is 23.43 mmHg. The mean trans-valvular gradient across the aortic valve is 14 mmHg. The calculated aortic valve area is 1.31 cm2. There is mild to moderate aortic valve stenosis. There is no evidence of aortic regurgitation. Mitral Valve: There is thickening of both mitral valve leaflets. Mild subvalvular thickening of the mitral valve is visualized. The papillary muscle heads appear calcified. There is mitral annular calcification. The mean gradient across the mitral valve is 4 mmHg. There is mild mitral stenosis present. There is mild (1+/4+) mitral regurgitation present. Tricuspid Valve: The tricuspid valve is probably normal. There is trace tricuspid regurgitation present. Pericardium: There is no pericardial effusion. Venous: The inferior vena cava appears normal in size. There is a greater than 50% respiratory change in the inferior vena cava dimension. Stress: EKG: normal sinus rhythm. EKG: right bundle branch block. The patient's oxygen saturation was 96% on Room Air The patient is on an anti-hypertensive; ( ) hours since taken. The patient is taking a lipid lowering agent. Ezetimibe-Simvastatin 10-40 mg PO QD The patient is on an YUN inhibitor. Lisinopril 10 mg PO QD The patient is taking aspirin. ASA 325 mg PO QD The patient is taking a diuretic. HCTZ 12.5 mg PO QD Misc: Other echo and stress findings as noted in report. Definity contrast (one 1.5 ml vial)was used to enhance endocardial definition. Excess contrast was discarded. Stress echo, limited spectral Doppler, color Doppler and ECG interpretation performed. Findings Low dose: Stress: The patient's oxygen saturation was 96% on Room Air The patient is on no cardiac or blood pressure medications. Findings Peak: Predicted Values:The patient achieved a maximum heart rate of 134 which is 88% of the maximum predicted heart rate (152 beats/min). The target heart rate was achieved. Left Ventricle: Global left ventricular systolic function appears hyperdynamic. There are no left ventricular segmental wall motion abnormalities. Stress: The peak dose of Dobutamine infused was 20 ug/kg/min. The patient was administered 3 mg of Metoprolol during recovery. The patient did not express feelings of chest discomfort. The blood pressure response was normal. This was a negative electrocardiographic stress test for ischemia. This was a negative echocardiographic stress test. There is no echocardiographic evidence of myocardial ischemia at this level of stress. The patient's oxygen saturation was 100% on Room Air The patient is on no cardiac or blood pressure medications. Findings Recovery: Stress: The patient's oxygen saturation was 94% on Room Air The patient is on no cardiac or blood pressure medications. Diastolic/Systolic Function Value Units (Range) MV E-wave Vmax 1.5 m/sec MV deceleration [id number] msec MV A-wave Vmax 1.2 m/sec MV E:A ratio 1.3 ratio Aortic Valve Value Units (Range) AV Vmax 2.4 m/sec AV VTI 58.2 cm AV peak gradient 23.4 mmHg AV mean gradient 14 mmHg LVOT diameter 1.9 cm LVOT Vmax 1.1 m/sec LVOT VTI 26.2 cm LVOT peak gradient 5 mmHg LVOT mean gradient 3 mmHg DOI (VTI) 0.5 ratio DOI (Vmax) 0.5 ratio SV LVOT 74.3 ml AUREA (continuity Vmax1.3 cm2 AUREA (continuity Vmax0.7 cm2/m2 AUREA (continuity VTI)1.3 cm AUREA (continuity VTI)0.7 cm2/m2 Mitral Valve Value Units (Range) MV Vmax 1.6 m/sec MV VTI 50.7 cm MV peak gradient 10 mmHg MV mean gradient 4 mmHg MV PHT 112 msec MVA (PHT) 2 cm2 MVA (continuity VTI)1.5 cm2 Tricuspid Valve Value Units (Range) TR Vmax 2.5 m/sec TR peak gradient 24 mmHg RAP 3 mmHg RVSP 27 mmHg Wall Motion: Segment Name Rest Peak Base-Anteroseptal Normal Normal Base-Anterior Normal Normal Base-Anterolateral Normal Normal Base-Posterolateral Normal Normal Base-Inferior Normal Normal Base-Inferoseptal Normal Normal Mid-Anteroseptal Normal Normal Mid-Anterior Normal Normal Mid-Anterolateral Normal Normal Mid-Posterolateral Normal Normal Mid-Inferior Normal Normal Mid-Inferoseptal Normal Normal Mulberry-Septal Normal Normal Mulberry-Anterior Normal Normal Mulberry-Lateral Normal Normal [place]-Inferior Normal Normal [place]-Tip Normal Normal This report has been electronically signed by: Andres Garcia M.D. 07/18/2017 13:27:36 Images reviewed and interpretation verified [facility] Cardiac Ultrasound Laboratory Dorota Montaño MD ECHO ORDERABLES documented in this encounter Visit Diagnoses Diagnosis PVD (peripheral vascular disease) with claudication Peripheral vascular disease, unspecified documented in this encounter Administered Medications Inactive Administered Medications - up to 3 most recent administrations Medication Order MAR Action Action Date Dose Rate Site DOBUTamine 500 mg in sodium chloride 0.9% 250 mL (ECHO LAB) 20 mcg/kg/min ? 93.2 kg (55.92 mL/hr, rounded to 55.9 mL/hr), Intravenous, ONCE, 1 dose, On Mon07/18/17 at 1200, Warning Vesicant/Irritant Medication , Echo Lab (Intra-Procedure) Given 07/18/2017 10:40 AM EDT 1.864 mg/min 55.9 mL/hr meTOPROLOL (LOPRESSOR) injection 3 mg 3 mg, Intravenous, ONCE, 1 dose, On Mon07/18/17 at 1200, Echo Lab (Intra-Procedure), Routine Given 07/18/2017 10:55 AM EDT 3 mg perflutren lipid microspheres (DEFINITY) injection 0.7 mL 0.7 mL, Intravenous, ONCE PRN, 1 dose, Starting on Mon07/18/17 at 1131, Until Mon07/18/17 at 1100, Other, for enhancement of sub-optimal echo images, Echo Lab (Intra-Procedure), Routine Given 07/18/2017 11:00 AM EDT 0.7 mLs documented in this encounter Care Teams Lithographic Etcher Relationship Specialty Start Date End Date Demetra Goff APRN PCP - General 10/19/12 12/31/17 documented as of this encounter
--- OUTSIDE RECORDS SUMMARY | 2024-06-14 01:50 | XMS_ITS | Encounter Summary ---
[place] [address] Care Team Providers Care Used Car Manager Name Role Phone Demetra Goff APRN Primary Care Provider [phone] Reason for Visit * Reason Comments Obstructive Sleep Apnea Encounter Details Date Type Department Care Team (Late st Contact Info) Description 06/13/2014 10:30 AM EDT Follow-Up Sleep Center at [facility] [address] [place] [address] Delmis Harding, DUPLICATOR PUNCH SET UP OPERATOR SLEEP CENTER CHEMA on CPAP (Primary Dx) Social History Tobacco Use Types Packs/Day Years [...] Sign Reading Time Taken Comments Blood Pressure 128/80 06/13/2014 10:19 AM EDT Pulse 81 06/13/2014 10:19 AM EDT Temperature - - Respiratory Rate - - Oxygen Saturation 96% 06/13/2014 10:19 AM EDT Inhaled Oxygen Concentration - - Weight 78.9 kg (174 lb) 06/13/2014 10:19 AM EDT Height 162.6 cm (5' 4) 06/13/2014 10:19 AM EDT Body Mass Index 29.87 06/13/2014 10:19 AM EDT documented in this encounter Progress Notes * Rigoberto Felipe MD - 06/15/2014 12:26 AM EDT I have reviewed Carley Harding CRT's note and agree with the assessment and recommendations. I did not see the patient during this encounter. RIGOBERTO FELIPE MD * Delmis Harding, DUPLICATOR PUNCH SET UP OPERATOR - 06/13/2014 10:27 AM EDT Sleep Medicine Clinical Health Specialist Brief Follow-Up Note HPI: Ms. Lindsey Mehta is a 63 y.o. female seen for follow-up of obstructive sleep apnea. Patient presents today for follow-up in PAP clinic: Sleep Study: 02/07/2008 Treatment: BIPAP Pressure: 22/16 cm Interface: [id number] FX XS Fit: Was leaking-cushion was checked on last follow up and was not attached to the frame properly, creating a high leak Chin strap: no Humidifier Settin/3 Snoring: Not aware of Dry Mouth: sometimes Mouth Breathing: yes Patient Perceived Outcome: Patient reports she is getting good sleep and has minimal daytime fatigue. Daytime Symptoms: [place]: 3/24 Naps: Occasionally just to relax her back. She does not fall asleep Involuntary Dozing: no Driving: No drowiness ROS: ENT: Nasal Obstruction: No takes Claritin Constitutional: Weight stable Sleep Pattern: Bedtime: 730 pm, watches TV until 9 pm, then affixes mask, is asleep promptly most nights Wake time: 4-430 am Awakenings: Nocturia sometimes Compliance Card Data: Date Range: 04/14-06/12/14 Settin/16 cm Residual AHI: 4.6 Vibratory Snore Index: 0 % Night in Large Leak: 2.4% Average usage days used-Hours: 8 hr # Days of usage: 60/60 % Days used > 4 hours 95%. Total % Days used 100% Physical Exam: Respirations: Even and not labored at rest DERM: Skin Irritation Redness and is sore on the bridge of her nose (she has a mask liner) Filed Vitals: 06/13/14 1019 BP: 128/80 Pulse: 81 Height: 162.6 cm (5' 4) Weight: 78.926 kg (174 lb) SpO2: 96% Assessment Ms. Lindsey Mehta is a 63 y.o. female seen for obstructive sleep apnea. Patients card data shows patient is using BIPAP. Patients AHI and VSI appear to be well treated with the current pressure. Leak appears to be intermittent on some nights. Patient reports she needs to replace themask cushion and wash the mask liner. Also there is redness on the bridge of her nose from the mask. I showed her how to adjust the stability dial to lessen the mask pressure on her nose. Patient continues to have good adherence and tolerance and realized improvement in both nocturnal and daytime symptoms. Humidifier/Heater function/rational and settings were reviewed with the patient Mask fit/assembly also was reviewed with the patient along with supply replacement Time spent face to face: 30 Min. Recomendations: 1) CPAP 22/16 cw with ramp. Humidity setting 2) Follow-up: RTC one year/PRN with Carley 3) Driving safety discussed, recommend patient not drive if drowsy, if drowsy while driving to pullover and take a nap. 4) Patient to replace mask cushion routinely The patient indicates understanding of these issues and agrees with the plan. documented in this encounter Plan of Treatment Upcoming Encounters Date Type Department Care Team (Late st Contact Info) Description 02/06/2025 2:40 PM EDT Office Visit Cardiology at [address] [place] [address] Rigoberto Diaz MD [facility] [place] [address] Scheduled Procedures Name Priority Associated Diagnoses Date/Ti me EGD, UPPER GI ENDOSCOPY (WRV U 2.09) Incontinence of feces, unspecified fecal incontinence type Dysphagia, unspecified type COLONOSCOPY, DIAGNOSTIC (WRV U 3.26) Incontinence of feces, unspecified fecal incontinence type Dysphagia, unspecified type documented as of this encounter Visit Diagnoses Diagnosis CHEMA on CPAP- Primary Obstructive sleep apnea (adult) (pediatric) documented in this encounter Care Teams Used Car Manager Relationship Specialty Start Date End Date Demetra Goff APRN PCP - General 10/19/12 12/31/17 documented as of this encounter
--- OUTSIDE RECORDS SUMMARY | 2024-06-14 01:50 | XMS_ITS | Encounter Summary ---
[place] [address] Care Team Providers Care Ui Engineer Name Role Phone Woodruff, Demetra Combs APRN Primary Care Provider [phone] Encounter Details Date Type Department Care Team (Late st Contact Info) Description 02/18/2013 2:41 PM EDT Anesthesia Event [place] [address] Mega Cat MD [facility] [address] Marycruz Mayes CRNA [facility] [place] [address] Anesthesia Record Procedure Summary Procedure Name Responsible Anesthesiologist Anesthesia Start Time Anesthesia Stop Time LAPAROSCOPIC PARAESOPHAGEAL HERNIA REPAIR W/FUNDOPLASTY, W/O MESH (WRVU 26.6) (Esophagus) Mega Cat MD 02/18/13 1441 02/18/13 1745 Events Date Time Event Comment 02/18/2013 1325 1441 Start 1447 AN Verify 1447 An Start Data 1454 An Induction 1454 An Intubation 1454 Anesthesia Ready 1511 Break/Relief In SE TORRES NSCHMIDT, TABULATING MACHINE MECHANIC 1527 Break/Relief Out 1734 Extubation/LMA Out 1735 an stop data 1745 Stop Meds Name Total Midazolam 1 mg fentaNYL 250 mcg propofol 100 mg Rocuronium 85 mg PHENYLephrine 480 mcg Ondansetron 4 mg Dexamethasone 4 mg Neostigmine 5 mg Glycopyrrolate 0.8 mg succinylcholine 120 mg ceFAZolin 2 g Labetalol 15 mg lactated ringers 1,600 mL * Agents Name O2 Air Desflurane (et) * Blood No blood administrations on file. Lines, Drains, and Airways Type Details Placement Removal (RETIRED) Peripheral IV Line - Single Lumen 02/13/13; 1229; 02/18/13; 195002/13/13 1229 by Heena Hanson RN 02/18/131950 by Dolores Green RN Incision 02/18/13; abdomen; 07/25/22 (LDA cleanup utility RA#[id number]); 1715 (LDA cleanup utility RA#[id number]) 02/18/13 0000 by Johanna Srinivasan RN 07/25/22 1715 by Reece Moeller Urethral Catheter 02/18/13; indwelling double lumen coude tip catheter; 100% silicone; 16; inserted; 1; drainage bag to dependent drainage; 02/19/13; 0501 02/18/13 0000 by Johanna Srinivasan RN 02/19/13 0501 by Marcial De Jesus RN (RETIRED) Peripheral IV Line - Single Lumen 02/18/13; 1244; 02/19/13; 1442 02/18/13 1244 by Sultana Renae RN 02/19/13 1442 by Eduar Rodríguez RN (RETIRED) NG/OG Tube Oral; Orogastric 02/18/13 1459 by 02/18/131950 by Dolores Green RN (RETIRED) Non-Surgical Airway ETT Type: Cuffed; ETT Size: 7 mm; Removal Date: 02/18/13; Removal Time: 1734 02/18/13 1508 by 02/18/13 1734 by Marycruz Mayes CRNA (RETIRED) NG/OG Tube 02/18/13 1715 by 1715 by Marycruz Mayes CRNA documented in this encounter Social History Tobacco [...] OR Notes * Anesthesia Postprocedure Evaluation - Mega Cat MD - 02/18/2013 6:05 PM EDT Patient: Lindsey Deleon Procedure(s) Performed: Procedure(s): LAPAROSCOPIC PARAESOPHAGEAL HERNIA REPAIR W/FUNDOPLASTY, W/O MESH MODIFIER TOUPET FUNDOPLASTY Actual Anesthetic: general Patient location: PACU Post-op pain: Adequate analgesia Post-op nausea: no nausea or vomiting Last Vitals: Filed Vitals: 02/18/13 1745 BP: 171/87 Pulse: 99 Temp: Resp: 21 Post-op cardiovascular and respiratory status: is stable Level of consciousness: awake Complications: no apparent complications Fluid Status: normal * Anesthesia Preprocedure Evaluation - Heidi Lawton MD - 02/17/2013 3:28 PM EDT Today I evaluated Lindsey Deleon a 62 y.o. female. Procedure(s): LAPAROSCOPIC PARAESOPHAGEAL HERNIA REPAIR W/FUNDOPLASTY, W/O MESH MODIFIER TOUPET FUNDOPLASTY Patient Active Problem List Diagnoses ??? IBS (irritable bowel syndrome) ??? Constipation ??? GERD (gastroesophageal reflux disease) ??? HTN (hypertension) ??? Hypercholesteremia ??? Rheumatoid arthritis ??? Depression ??? Emphysema ??? Macular degeneration ??? CHEMA (obstructive sleep apnea) Past Medical History Diagnosis Date ??? GERD (gastroesophageal reflux disease) food regurgitation, burning, not well controlled ??? Hypertension well controlled on medication ??? COPD (chronic obstructive pulmonary disease) Emphysema, scheduled and prn inhalers, has not used prn inhaler in months. Able to climb one flightof starirs without SOB. No home O2. Past Surgical History Procedure Date ??? Colonoscopy, diagnostic 12/06/2012 COLONOSCOPY, DIAGNOSTIC performed by Mik Dumont MD at [facility] ??? Upper gi endoscopy, biopsy 12/06/2012 EGD WITH BIOPSY performed by Mik Dumont MD at [facility] ??? Cholecystectomy ??? Tubal ligation History Substance Use Topics ??? Smoking status: Former Smoker ??? Smokeless tobacco: Not on file ??? Alcohol Use: Yes Allergies Allergen Reactions ??? Latex Itching Medications: MAR and/or home medications have been reviewed. Physical Exam: There were no vitals filed for this visit. There is no height or weight on file to calculate BMI. Airway Assessment: Mallampati: II TM distance: >3 FB Neck ROM: full Cardiovascular Assessment: Pulmonary Assessment: Dental Assessment: (+) upper dentures and lower dentures Misc Assessment: Anesthesia Plan: ASA 3 general, with a(n) intravenous induction GA/ET RSI Region - Other Informed Consent: Anesthetic plan and risks discussed with patient. Use of blood products discussed with patient whom consented to blood products. Plan discussed with TABULATING MACHINE MECHANIC and attending. Misc. Assessment: documented in this encounter Miscellaneous Notes * Addendum Note - Mega Cat MD - 02/18/2013 6:06 PM EDT * Addendum Note - Mega Cat MD - 02/18/2013 6:06 PM EDT documented in this encounter Plan of Treatment Upcoming Encounters Date Type Department Care Team (Late st Contact Info) Description 02/06/2025 2:40 PM EDT Office Visit Cardiology at [address] [place] [phone] Rigoberto Diaz MD [facility] [place] [address] Scheduled Procedures Name Priority Associated Diagnoses Date/Ti [...] Action Date Dose Rate Site ceFAZolin (ANCEF) injection PRN, Starting on Mon02/18/13 at 1501, Until Mon02/18/13 at 1746, Anesthesia Intra-op, Routine Given 02/18/2013 3:01 PM EDT 2 g dexamethasone (DECADRON) injection PRN, Starting on Mon02/18/13 at 1457, Until Mon02/18/13 at 1746, Anesthesia Intra-op, Routine Given 02/18/2013 2:57 PM EDT 4 mg fentaNYL 50mcg/mL injection PRN, Starting on Mon02/18/13 at 1454, Until Mon02/18/13 at 1746, Pain, Anesthesia Intra-op, Routine Given 02/18/2013 3:23 PM EDT 100 mcg Given 02/18/2013 2:56 PM EDT 50 mcg Given 02/18/2013 2:54 PM EDT 100 mcg glycopyrrolate (ROBINUL) injection PRN, Starting on Mon02/18/13 at 1720, Until Mon02/18/13 at 1746, Anesthesia Intra-op, Routine Given 02/18/2013 5:20 PM EDT 0.8 mg labetalol (NORMODYNE;TRANDATE) injection PRN, Starting on Mon02/18/13 at 1525, Until Mon02/18/13 at 1746, High Blood Pressure, Anesthesia Intra-op, Routine Given 02/18/2013 5:27 PM EDT 5 mg Given 02/18/2013 5:25 PM EDT 5 mg Given 02/18/2013 3:25 PM EDT 5 mg lactated ringers infusion CONTINUOUS PRN, Starting on Mon02/18/13 at 1445, Until Mon02/18/13 at 1746, Anesthesia Intra-op New Bag 02/18/2013 3:56 PM EDT mL New Bag 02/18/2013 2:45 PM EDT mL midazolam (VERSED) injection PRN, Starting on Mon02/18/13 at 1445, Until Mon02/18/13 at 1746, Sleep, Anesthesia Intra-op, Routine Given 02/18/2013 2:45 PM EDT 1 mg neostigmine (PROSTIGMINE) injection PRN, Starting on Mon02/18/13 at 1720, Until Mon02/18/13 at 1746, Anesthesia Intra-op, Routine Given 02/18/2013 5:20 PM EDT 5 mg ondansetron (ZOFRAN) injection PRN, Starting on Mon02/18/13 at 1659, Until Mon02/18/13 at 1746, Nausea, Anesthesia Intra-op, Routine Given 02/18/2013 4:59 PM EDT 4 mg PHENYLephrine HCl in NS (PF) (JOSELUIS-SYNEPHRINE) 0.8 mg/10 mL (80 mcg/mL) injection Syrg PRN, Starting on Mon02/18/13 at 1508, Until Mon02/18/13 at 1746, Anesthesia Intra-op, Routine Given 02/18/2013 4:27 PM EDT 80 mcg Given 02/18/2013 4:00 PM EDT 120 mcg Given 02/18/2013 3:40 PM EDT 120 mcg propofol (DIPRIVAN) 10 mg/mL bolus injection (Anesthesia) PRN, Starting on Mon02/18/13 at 1454, Until Mon02/18/13 at 1746, Anesthesia Intra-op Given 02/18/2013 2:54 PM EDT 100 mg rocuronium (ZEMURON) injection PRN, Starting on Mon02/18/13 at 1500, Until Mon02/18/13 at 1746, Anesthesia Intra-op, Routine Given 02/18/2013 5:09 PM EDT 5 mg Given 02/18/2013 4:52 PM EDT 10 mg Given 02/18/2013 4:37 PM EDT 10 mg succinylcholine (ANECTINE) injection PRN, Starting on Mon02/18/13 at 1454, Until Mon02/18/13 at 1746, Anesthesia Intra-op, Routine Given 02/18/2013 2:54 PM EDT 120 mg documented in this encounter Care Teams Ui Engineer Relationship Specialty Start Date End Date Demetra Goff APRN PCP - General 10/19/12 12/31/17 documented as of this encounter
--- OUTSIDE RECORDS SUMMARY | 2024-06-14 01:50 | XMS_ITS | Encounter Summary ---
Author Organization [facility] [place] [address] Care Team Providers Care Tool Crib Lead Name Role Phone Demetra Goff APRN Primary Care Provider [phone] Encounter Details Date Type Department Care Team (Latest Contact Info) Description 07/18/2017 12:55 PM EDT Laboratory [place] [address] Atherosclerosis of [place] artery of both lower extremities with intermittent [...] PM EDT Office Visit Cardiology at [address] [phone] Rigoberto Diaz MD [facility] [place] [address] Scheduled Procedures Name Priority Associated Diagnoses Date/Ti me EGD, UPPER GI ENDOSCOPY (WRV U 2.09) Incontinence of feces, unspecified fecal incontinence type Dysphagia, unspecified type COLONOSCOPY, DIAGNOSTIC (WRV U 3.26) Incontinence of feces, unspecified fecal incontinence type Dysphagia, unspecified type documented as of this encounter Procedures Procedure Name Priority Date/Time Associated Diagnosis Comments ABORH RECHECK STATUS Routine 07/18/2017 12:30 PM EDT HEMOGRAM Routine 07/18/2017 12:30 PM EDT Atherosclerosis of [place] artery of both lower extremities with intermittent claudication TYPE AND SCREEN, SDP (FUTURE SURGERY, [facility] SAME DAY PROGRAM ONLY) Routine 07/18/2017 12:30 PM EDT Atherosclerosis of [place] artery of both lower extremities with intermittent claudication ABO/RH TYPING Routine 07/18/2017 12:30 PM EDT Atherosclerosis of [place] artery of both lower extremities with intermittent claudication ANTIBODY SCREEN Routine 07/18/2017 12:30 PM EDT Atherosclerosis of [place] artery of both lower extremities with intermittent claudication PREALBUMIN Routine 07/18/2017 12:30 PM EDT Atherosclerosis of [place] artery of both lower extremities with intermittent claudication BASIC METABOLIC PANEL (NON-FASTING) Routine 07/18/2017 12:30 PM EDT Atherosclerosis of [place] artery of both lower extremities with intermittent claudication documented in this encounter Results * ABORH Recheck Status (07/18/2017 12:30 PM EDT) ABORH Type Recheck Completed [facility] Blood specimen (specimen) 07/18/2017 12:30 PM EDT 07/18/2017 12:36 PM EDT Narrative Resulting Agency Comment Spec In Lab Jake Montaño MD BLOOD BANK LAB ORDER TANA [facility] [place] [place] [address] * Antibody screen (07/18/2017 12:30 PM EDT) Ab Screen Interp Negative [facility] Expires at 2359 on: 08/18/2017 [facility] Comment: Corrected from 09/01/17 12:00 [Unknown] on 08/08/17 06:04 by Gloria Huerta I.. Corrected from 08/05/17 12:00 [Unknown] on 08/03/17 03:58 by Chantelle Nye Corrected from 09/01/17 12:00 [Unknown] on 07/20/17 04:47 by Gloria Huerta I.. Blood specimen (specimen) 07/18/2017 12:30 PM EDT 07/18/2017 12:36 PM EDT Narrative Resulting Agency Comment Spec In Lab Jake Montaño MD BLOOD BANK LAB ORDER TANA [facility] [place] [address] * ABO/Rh Typing (07/18/2017 12:30 PM EDT) ABORH Type O Pos [facility] Blood specimen (specimen) 07/18/2017 12:30 PM EDT 07/18/2017 12:36 PM EDT Narrative Resulting Agency Comment Spec In Lab Jake Montaño MD BLOOD BANK LAB ORDER TANA [facility] [address] * Prealbumin (07/18/2017 12:30 PM EDT) Prealbumin 34 20 - 40 mg/dL [facility] Comment: Prealbumin levels are generally lower in the pediatric population; adult concentrations are usually attained near puberty. Blood specimen (specimen) 07/18/2017 12:30 PM EDT 07/18/2017 12:36 PM EDT Narrative Resulting Agency Comment Spec In Lab Jake Montaño MD CHEMISTRY ORDERABLES [facility] [address] * (ABNORMAL) Basic Metabolic Panel (non-fasting) (07/18/2017 12:30 PM EDT) Glucose Lvl 152 65 - 199 mg/dL [facility] Comment:Diabetes: >=200 mg/d L plus symptoms BUN 13 8 - 18 mg/dL [facility] Creatinine 1.01 0.70 - 1.20 mg/dL [facility] Comment: Please note that the pediatric reference intervals supplied above were not validated at [facility]. Results from pediatric patients should be interpreted in conjunction to the patient's age, height and muscle mass. Sodium 142 135 - 145 mmol/L [facility] Potassium 4.0 3.5 - 5.0 mmol/L [facility] Comment: Please note: ??Patients with WBC >100,000 may have falsely elevated Potassium levels. ??For accurate Potassium quantification in these patients send serum separator tube (gold top) for subsequent determinations. ??Contact the Clinical Chemistry Laboratory if there are any questions. Chloride 105 98 - 107 mmol/L [facility] CO2 22 22 - 31 mmol/L [facility] Anion Gap 15 5 - 15 mmol/L [facility] Calcium 9.8 8.5 - 10.5 mg/dL [facility] Estimated GFR 55(L) >=60 [facility] Comment: This estimated GFR (eGFR) value [...] the following links into your internet browser. [email or web address] Blood specimen (specimen) 07/18/2017 12:30 PM EDT 07/18/2017 12:36 PM EDT Narrative Resulting Agency Comment Spec In Lab Jake Montaño MD CHEMISTRY ORDERABLES Performing Organization Address City/[facility]/ZIP Co de Phone Number [facility] [place] [address] * (ABNORMAL) Hemogram (07/18/2017 12:30 PM EDT) WBC 10.6(H) 4.0 - 9.5 x10(3)/[facility] RBC 3.78(L) 4.00 - 5.21 x10(6)/[facility] Hemoglobin 12.8 11.7 - 15.5 gm/dL [facility] Hematocrit 37.4 35.7 - 45.8 % [facility] MCV 98.9(H) 82.6 - 94.4 [facility] MCH 33.9(H) 27.1 - 32.0 pg [facility] MCHC 34.2 31.7 - 35.0 gm/dL [facility] Platelets 235 145 - 357 x10(3)/[facility] RDWSD 46.1(H) 37.0 - 46.0 [facility] RDWCV 12.8 11.5 - 14.1 % [facility] MPV 9.7 7.6 - 12.9 [facility] nRBC % Auto 0.0 % [facility] nRBC Abs Auto 0.000 0.000 - 0.000 x10(3)/[facility] Blood specimen (specimen) 07/18/2017 12:30 PM EDT 07/18/2017 12:36 PM EDT Narrative Resulting Agency Comment Spec In Lab Jake Montaño MD [place] [address] documented in this encounter Visit Diagnoses Diagnosis Atherosclerosis of [place] artery of both lower extremities with intermittent claudication Atherosclerosis of [place] arteries of the extremities with intermittent claudication documented in this encounter Care Teams Tool Crib Lead Relationship Specialty Start Date End Date Demetra Goff APRN PCP - General 10/19/12 12/31/17 documented as of this encounter
--- OUTSIDE RECORDS SUMMARY | 2024-06-14 01:50 | XMS_ITS | Encounter Summary ---
[place] [address] Care Team Providers Care Service Counter Cashier Name Role Phone Stanly, Demetra Combs APRN Primary Care Provider [phone] Encounter Details Date Type Department Care Team (Late st Contact Info) Description 02/18/2013 1:26 PM EDT - 02/18/2013 4:54 PM EDT [place] [address] Mireya Calvin MD [facility] [place] [address] LAPAROSCOPIC PARAESOPHAGEAL HERNIA REPAIR W/FUNDOPLASTY, W/O MESH (WRVU 26.6) Social History Tobacco Use Types Packs/Day Years [...] Sign Reading Time Taken Comments Blood Pressure 135/67 02/18/2013 12:29 PM EDT Pulse 73 02/18/2013 12:29 PM EDT Temperature 36.6 ??C (97.9 ??F) 02/18/2013 12:29 PM E DT Respiratory Rate 16 02/18/2013 12:29 PM EDT Oxygen Saturation 96% 02/18/2013 12:29 PM EDT Inhaled Oxygen Concentration - - [...] HOLIDAYS: ASK FOR THE GENERAL SURGERY RESIDENT MISSILE PAD MECHANIC IF ANY OF THE ABOVE OCCUR. Activity level: Increase your activity slowly. You may tire easily, so frequent rest periods may be necessary. Do not lift more than 10 pounds for 4 weeks. Walk three times a day. Use common sense. Don't exhaust yourself. Diet: You should follow a post Willem diet, as instructed by the community administrator in the hospital for a period of [...] at the [facility] - [facility]. You will receive a letter in the mail confirming the appointment date and time. Your follow-up is very important to us. Please call [phone] if you do not hear from us [...] for coordination of care and discharge planning. Eulalia Hawk RN Pager# [phone] Clinical Associate Professor Of Management Office of Care Management * Dung Steward MD - 02/19/2013 10:18 AM EDT [facility] Department of Surgery Inpatient Progress Note ID: [...] - Post-Willem Full diet for breakfast, d/c FOUNDRY MANAGER and add po pain control, and d/c newman -Continue to monitor for tachycardia -HLIV once pt taking adequate po -Replete lytes prn -Monitor uop -Continue to encourage IS, aggressive pulm toilet, frequent OOB/ambulation Anticipate that if pt remains stable today, possible DC this evening * Jaz Torres DT - 02/19/2013 9:43 AM EDT Nutrition Services Education Note 02/19/2013 Lindsey Mtz Deleon :1950 Patient/family seen for nutrition education for Willem diet Written information provided: willem diet Patient/family was given my contact information if questions arise. Patient/family stated good understanding of above information, no further questions at this time. PASTORA ALCALAR * Marcial De Jesus RN - 02/19/2013 6:45 AM EDT Jean Marie, ms endocrinologist for pain, newman removed at 0615. Slept [...] - 02/18/2013 7:48 PM EDT Pt given FOUNDRY MANAGER button with instructions for use; appears to understand. Report to Concepción in SSCU. * Shaista Fleiz RN - 02/18/2013 7:09 PM EDT Break [...] 11:27 PM EDT * Discharge Summary - Dung Steward MD - 02/19/2013 10:24 AM EDT GENERAL [...] Pain. 350 mL 0 PCP: DEMETRA BLANKENSHIP, SKI TECHNICIAN, Scheduled Appointments: The following appointments have been scheduled on your behalf: Future Appointments Date Time Provider Department Center 03/19/2013 11:40 AM Mireya Calvin MD [facility] [address] [place] [address] CLIN Patient Instructions: Call your doctor if you develop: Fever greater than 101.3 degrees Farenheit (38.5 degrees Celcius), chills, nausea or vomiting. Alsocall if you develop severe pain not relieved by your prescribed oral pain medicine. CALL THE GENERAL SURGERY CLINIC DURING WORKING HOURS AT , OR CALL AFTERCLINIC HOURS, WEEKENDS AND HOLIDAYS: ASK FOR THE GENERAL SURGERY RESIDENT MISSILE PAD MECHANIC IF ANY OF THE ABOVE OCCUR. Activity level: Increase your activity slowly. You may tire easily, so frequent rest periods may be necessary. Do not lift more than 10 pounds for 4 weeks. Walk three times a day. Use common sense. Don't exhaust yourself. Diet: You should follow a post Willem diet, as instructed by the community administrator in the hospital for a period of [...] at the [facility]L, You will receive a letter in the mail confirming the appointment date and time. Your follow-up is very important to us. Please call [phone] if you do not hear from us [...] HOLIDAYS: ASK FOR THE GENERAL SURGERY RESIDENT MISSILE PAD MECHANIC IF ANY OF THE ABOVE OCCUR. Activity level: Increase your activity slowly. You may tire easily, so frequent rest periods may be necessary. Do not lift more than 10 pounds for 4 weeks. Walk three times a day. Use common sense. Don't exhaust yourself. Diet: You should follow a post Willem diet, as instructed by the community administrator in the hospital for a period of [...] at the [facility]. You will receive a letter in the mail confirming the appointment date and time. Your follow-up is very important to us. Please call [phone] if you do not hear from us [...] Calvin MD - 02/18/2013 5:24 PM EDT [facility] Operative Note Patient Name: Lindsey Deleon : [id number] MR#: [id number] Case Date: 02/18/2013 Surgeon: Surgeon(s) and Role: [...] esophageal dissection was then performed and a Mia drain was introduced and used to encircle the esophagus at the gastroesophageal junction. The Mia drain was held in place using an [...] direction posterior to the esophagus. A 60 [place] bougie was passed by Anesthesia down the [...] was assured. The abdomen was irrigated. The Mia drain was cut and removed. The liver [...] 02/18/2013 * Brief Op Note - Mireya Clavin MD - 02/18/2013 5:22 PM EDT Brief Operative Note Patient Name: Lindsey Deleon : [id number] MR#: [id number] Case Date: 02/18/2013 Surgeon: Surgeon(s) and Role: [...] PM EDT Office Visit Cardiology at [address] [place] [place] [phone] Rigoberto Diaz MD [facility] [place] [address] Scheduled Procedures Name Priority Associated Diagnoses Date/Ti [...] In Lab Ismael Hernandez MD CHEMISTRY ORDE RABJENNIFER Performing Organization Address City/[facility] Co de Phone Number CERNER MILLENNIUM * (ABNORMAL) Basic Metabolic Panel (non-fasting) (02/19/2013 6:35 AM EDT) Glucose Lvl 101 60 - 199 mg/dL CERNER MILLENNIUM Comment:Diabetes: >=200 mg/d L plus symptoms BUN 13 8 - 18 mg/dL CERNER MILLENNIUM Creatinine 0.57(L) 0.70 - 1.20 mg/dL CERNER MILLENNIUM Comment: Please note that the pediatric reference intervals supplied above were not validated at [facility]. Results from pediatric patients should be interpreted [...] mg/dL CERNER MILLENNIUM Estimated GFR >60 >=60 CERNER MILLENNIUM Comment: The National Kidney Disease Education Program [...] Lab Ismael Hernandez MD CHEMISTRY ORDE SIA KENN SOTOMAYOR * (ABNORMAL) CBC (with Diff) (02/19/2013 6:35 AM EDT) WBC 11.4(H) 4.0 - 10.0 x10(3)/mcL CERNER MILLENNIUM RBC 3.89(L) 3.93 - 5.22 x10(6)/mcL [...] In Lab Ismael Hernandez MD HEMATOLOGY ORD ERANIDA KENN SOTOMAYOR documented in this encounter Visit [...] Given 02/19/2013 12:00 AM EDT 2 puffs BUpivacaine (PF) (MARCAINE) 0.25 % (2.5 mg/mL) injection ONCE PRN, Starting on Mon02/18/13 at 1618, Until Mon02/18/13 at 1908, Intra-Operative (Intra-Procedure), Routine Given 02/18/2013 4:18 PM EDT 22.5 mg 19- Surgical Site ceFAZolin (ANCEF) 2g in dextrose 5% 50 [...] 1,000 mLs 100 mL/hr morphine 1 mg/mL FOUNDRY MANAGER 30 mL Intravenous, FOUNDRY MANAGER ONLY, Starting on Mon02/18/13 at 1815, Until [...] (Given by Other - Provider: Marcial De Jesus, RN) 0600 (Given - Provider: Marcial De [...] 0719 1825 (New Bag - Provider: Dolores Green RN) 0410 (New Bag - Provider: Marcial De Jesus RN) morphine 1 mg/mL FOUNDRY MANAGER 30 mL (CANCELED) Intravenous, FOUNDRY MANAGER ONLY, Starting on Mon02/18/13 at 1815, Until Mon02/19/13 at 0719 1825 (New Syringe/Cartridge - Provider: Dolores Green, RN) PRN Medication Order 02/17/2013 02/18/2013 02/19/2013 acetaminophen [...] Recovery, Routine 1833 (Given - Provider: Dolores Green, RANGEL) OXYcodone (ROXICODONE) 5 mg/5 mL solution 5-10 mg 5-10 mg, Oral, EVERY 4 HOURS PRN, Starting on Mon02/19/13 at 0718, Until 3/26/13 at 1759, Pain, Routine documented in this encounter Care Teams Service Counter Cashier Relationship Specialty Start Date End Date Demetra Blankenship APRN PCP - General 10/19/12 12/31/17 documented as of this encounter
--- OUTSIDE RECORDS SUMMARY | 2024-06-14 01:50 | XMS_ITS | Encounter Summary ---
Author Organization [facility] [place] [address] Care Team Providers Care Jd Edwards Developer Name Role Phone Demetra Goff APRN Primary Care Provider [phone] Reason for Referral * Diagnostic Test (Routine) - Closed Specialty Diagnoses / Procedures Referred By Emy castillo Referred To Contact Radiology Diagnoses Intermittent claudication Procedures CT Angiogram Aorta Lower Extremity Runoff Tawanna Storey APRN [facility] [place] [address] [facility] [place] [address] Referral ID Status Reason Start Date Expiration Date V isits Requested Visits Authorized [id number] Closed Specialty Service Requested 06/16/2017 06/16/2018 1 1 Reason for Visit * Reason Comments Claudication pt here for claudica tin pain on ambulation no rest pain * Consultation (Routine) - Closed Specialty Diagnoses / Procedures Referred By Emy castillo Referred To Contact Vascular Surgery Diagnoses Claudication. Alethea Beal PA [address] [place] [id number] [facility] [place] [address] [place] [address] Referral ID Status Reason Start Date Expiration Date V isits Requested Visits Authorized [id number] Closed Consult, Test & Treat Connection Center 06/07/2017 06/07/2018 1 1 Encounter Details Date Type Department Care Team (Late st Contact Info) Description 06/16/2017 9:30 AM EDT Office Visit [place] [address] Tawanna Storey APRN [facility] [place] [address] Intermittent claudication Social History Tobacco Use Types [...] Sign Reading Time Taken Comments Blood Pressure 122/54 06/16/2017 9:29 AM EDT Pulse 83 06/16/2017 9:29 AM EDT Temperature - - Respiratory Rate 18 06/16/2017 9:29 AM EDT Oxygen Saturation - - Inhaled Oxygen Concentration - - Weight 93 kg (205 lb) 06/16/2017 9:29 AM EDT Height 160 cm (5' 3) 06/16/2017 9:29 AM EDT Body Mass Index 36.31 06/16/2017 9:29 AM EDT documented in this encounter Progress Notes * Tawanna Storey APRN - 06/16/2017 9:30 AM EDT This is a new patient to the practice who is being evaluated for B leg pain with walking and was referred by Demetra Goff APRN. 66 yo female with HTN, sleep apnea, COPD, IBS. C/o 2-3 months problem with B calf to hip pain with walking at <100 yds. Relieved by rest. This is disabling. Denies rest pain,tissue loss, chest pain, TIA's, CVA, MA. SOB from COPD. Recent w/u with cardiology for SVT. She does take ASA and statin. PMHx: Past Medical History: Diagnosis Date ??? Asthma 02/06/2017 ??? COPD (chronic obstructive pulmonary disease) Emphysema, scheduled and prn inhalers, has not used prn inhaler in months. Able to climb one flightof starirs without SOB. No home O2. ??? GERD (gastroesophageal reflux disease) food regurgitation, burning, not well controlled ??? Hypertension well controlled on medication PSxHx: Past Surgical History: Procedure Laterality Date ??? CHOLECYSTECTOMY ??? PRO COLONOSCOPY, DIAGNOSTIC 12/06/2012 COLONOSCOPY, DIAGNOSTIC performed by Mik Dumont MD at [facility] ENDOSCOPY ??? PRO LAPAROSCOPY, SURG, REPAIR PARAESOPHAGEAL HERNIA, W/O IMPLANTATION OF MESH 02/18/2013 LAPAROSCOPIC PARAESOPHAGEAL HERNIA REPAIR W/FUNDOPLASTY, W/O MESH performed by Moncho Bowers MD at [facility] MAIN OR ??? PRO UPPER GI ENDOSCOPY, BIOPSY 12/06/2012 EGD WITH BIOPSY performed by Mik Dumont MD at [facility] ENDOSCOPY ??? TUBAL LIGATION Social Hx: Social History Substance Use Topics ??? Smoking status: Former Smoker Quit date: 10/21/2004 ??? Smokeless tobacco: Never Used ??? Alcohol use Yes Comment: one to two times per year, prior history of abuse Medications: Outpatient Prescriptions Marked as Taking for the 06/16/17 encounter (Office Visit) with Tawanna Storey APRN Medication Sig Dispense Refill ??? fluticasone (FLOVENT) [...] Indications: Hypothyroidism ??? fluticasone (FLONASE) 50 mcg/actuation [place], Suspension 2 sprays by Each Nare route daily as needed for Rhinitis. 16 g 3 ??? loratadine (CLARITIN) 10 mg tablet Take 10 mg by mouth daily. ??? Hebo-3 Fatty Acids 500 mg Cap Take by [...] ezetimibe-simvastatin (VYTORIN 10-40) 10-40 mg per tablet Allergies: Allergies Allergen Reactions ??? Latex Itching Review of Systems: Constitutional (weight change, fever) - Denies Neuro (dizziness, seizures, numbness, tingling) - Denies Eyes (vision) - Denies Ears, nose, throat (hearing) - Denies Cardiovascular (CP) - Denies Respiratory (SOB) - SOB GI (abd pain, nausea, emesis, blood in stool) - diarrhea (hematuria, dysuria, frequency) - Denies Muscoloskeletal (extremity pain, weakness) - leg pain with walking short distance and stiars Skin (ulcers, rashes) - denies All other ROS negative Physical Exam: Vitals: Vitals: 06/16/17 0929 BP: 122/54 Pulse: 83 Resp: 18 General: NAD, appears well Neuro: Alert and oriented, motor sensory grossly intact Lungs: CTA right posterior base crackles Heart: RRR Abd: Soft, NT, ND, no palpable pulsatile masses, large Extremity - [place], warm, no ulceration, brisk capillary refill, no edema Vascular: R L Carotid 2/2 bruit (n) 2/2 bruit (n) Radial 2/2 2/2 Femoral -/2 -/2 Popliteal -/2 -/2 DP -/2 -/2 PT -/2 -/2 MARIYA's 06/05/17 Right ?Pressure (mm Hg) ?? MARIYA ??Waveform [...] ? Dorsalis Pedis (Ankle) Artery ?62 ?0.48 ??[place]- Biphasic ?? Posterior Tibial (Ankle) Artery ??87 ?0.68 ??[place]-Biphasic ?? Interpretation: RIGHT: Moderate to moderately severe lower extremity arterial occlusive disease. Findings consistent with aortic/iliac disease. LEFT: Moderate to moderately severe lower extremity arterial occlusive disease. Findings consistent with aortic/iliac disease and Mild tibial disease. Assessment/Plan: 66 yo female with HTN, sleep apnea, COPD, IBS. C/o 2-3 months problem with B calf to hip pain with walking at <100 yds. Relieved by rest. This is disabling. Denies rest pain,tissue loss. MARIYA's with Moderate to moderately severe lower extremity arterial occlusive disease. Findings consistent with aortic/iliac disease bilaterally. Disabling B LE caludication. Unable to palpate femoral pulse. CTA with runoff next available and coordinate with one of the surgeons. Sent for Cr today. documented in this encounter Miscellaneous Notes * Addendum Note - Giorgio Giron - 06/16/2017 10:02 AM EDTAddended by: GIORGIO GIRON on: 06/16/2017 10:02 AM Modules accepted: Orders documented in this encounter Plan of Treatment Upcoming Encounters Date Type Department Care Team (Late st Contact Info) Description 02/06/2025 2:40 PM EDT Office Visit Cardiology at [address] [place] [phone] Rigoberto Diaz MD [facility] [place] [address] Scheduled Procedures Name Priority Associated Diagnoses Date/Ti me EGD, UPPER GI ENDOSCOPY (WRV U 2.09) Incontinence of feces, unspecified fecal incontinence type Dysphagia, unspecified type COLONOSCOPY, DIAGNOSTIC (WRV U 3.26) Incontinence of feces, unspecified fecal incontinence type Dysphagia, unspecified type documented as of this encounter Procedures Procedure Name Priority Date/Time Associated Diagnosis Comments CREATININE Routine 06/16/2017 10:12 AM EDT Intermittent claudication documented in this encounter Results * CT Angiogram Aorta Lower Extremity Runoff (07/11/2017 9:36 AM EDT) Anatomical Region Laterality Modality Abdomen Computed Tomogra phy Impressions 07/11/2017 10:20 AM EDT 1. ??Focal severe stenosis of LEFT common femoral artery. 2. ?? Patent bilateral 3 vessel below the runoff to ankle. 3. ??Proximal severe stenosis of RIGHT common iliac artery. 4. ??Patent RIGHT common femoral artery. 5. ??Other areas of disease, as described above.. Narrative 07/11/2017 10:20 AM EDT EXAMINATION: CT ANGIOGRAM AORTA LOWER EXTREMITY RUNOFF CLINICAL HISTORY: disabling claudication B abnormal MARIYA's ??unable to palpate femerol pulses. TECHNIQUE: Helical CTA of the abdomen, pelvis and lower extremities was performed following intravenous administration of 120cc of Omnipaque 350. MPRs were performed. 3-D images were generated on an independent workstation. COMPARISON: None FINDINGS: VASCULAR FINDINGS Abdominal aorta: Moderate to severe distal stenosis proximal to the bifurcation Celiac: No stenosis. SMA: Proximal moderate stenosis Right renal artery: No stenosis. Left renal artery: No stenosis. UMA: No stenosis. RIGHT LOWER EXTREMITY Common iliac artery: Proximal severe stenosis then patent External iliac artery: Widely patent. Internal iliac artery: Proximal moderate stenosis Common femoral artery: Widely patent. Superficial femoral artery: Widely patent. Profundus femoral artery: Widely patent. Popliteal artery: Widely patent Anterior tibial artery: Widely patent. Tibio-peroneal trunk: Widely patent. Posterior tibial artery: Widely patent. Peroneal artery: Widely patent. Dorsalis pedis: Widely patent. Plantar arteries: Widely patent. LEFT LOWER EXTREMITY Common iliac artery: Diffuse moderate stenosis External iliac artery: Widely patent. Internal iliac artery: Widely patent. Common femoral artery: Focal severe stenosis due to calcification Superficial femoral artery: Scattered areas of moderate stenosis. Focal severe stenosis noted distally at level of adductor canal Profundus femoral artery: Widely patent. Popliteal artery: Widely patent Anterior tibial artery: Widely patent. Tibio-peroneal trunk: Widely patent. Posterior tibial artery: Widely patent. Peroneal artery: Widely patent. Dorsalis pedis: Widely patent. Plantar arteries: Widely patent. NON-VASCULAR FINDINGS Lower chest: Normal. Liver: Normal. Bile ducts: Nondilated. Gallbladder: Postcholecystectomy Pancreas: Normal attenuation without ductal dilatation. Spleen: Normal. Kidneys/adrenals: Normal. Urinary Bladder: Limited evaluation Lymph Nodes: No enlarged lymph nodes. Bowel: Scattered colonic diverticula. No evidence of diverticulitis. Peritoneum and mesentery: No ascites, free air, or loculated fluid collection. No mesenteric inflammation. Osseous structures: No suspicious findings. Procedure Note Gregorio Jarvis MD - 07/11/2017 EXAMINATION: CT ANGIOGRAM AORTA LOWER EXTREMITY RUNOFF CLINICAL HISTORY: disabling claudication B abnormal MARIYA's unable topalpate femerol pulses. TECHNIQUE: Helical CTA of the abdomen, pelvis and lower extremities was performed following intravenous administration of 120cc of Omnipaque 350.MPRs were performed. 3-D images were generated on an independent workstation. COMPARISON: None FINDINGS: VASCULAR FINDINGS Abdominal aorta: Moderate to severe distal stenosis proximal to thebifurcation Celiac: No stenosis. SMA: Proximal moderate stenosis Right renal artery: No stenosis. Left renal artery: No stenosis. UMA: No stenosis. RIGHT LOWER EXTREMITY Common iliac artery: Proximal severe stenosis then patent External iliac artery: Widely patent. Internal iliac artery: Proximal moderate stenosis Common femoral artery: Widely patent. Superficial femoral artery: Widely patent. Profundus femoral artery: Widely patent. Popliteal artery: Widely patent Anterior tibial artery: Widely patent. Tibio-peroneal trunk: Widely patent. Posterior tibial artery: Widely patent. Peroneal artery: Widely patent. Dorsalis pedis: Widely patent. Plantar arteries: Widely patent. LEFT LOWER EXTREMITY Common iliac artery: Diffuse moderate stenosis External iliac artery: Widely patent. Internal iliac artery: Widely patent. Common femoral artery: Focal severe stenosis due to calcification Superficial femoral artery: Scattered areas of moderate stenosis. Focalsevere stenosis noted distally at level of adductor canal Profundus femoral artery: Widely patent. Popliteal artery: Widely patent Anterior tibial artery: Widely patent. Tibio-peroneal trunk: Widely patent. Posterior tibial artery: Widely patent. Peroneal artery: Widely patent. Dorsalis pedis: Widely patent. Plantar arteries: Widely patent. NON-VASCULAR FINDINGS Lower chest: Normal. Liver: Normal. Bile ducts: Nondilated. Gallbladder: Postcholecystectomy Pancreas: Normal attenuation without ductal dilatation. Spleen: Normal. Kidneys/adrenals: Normal. Urinary Bladder: Limited evaluation Lymph Nodes: No enlarged lymph nodes. Bowel: Scattered colonic diverticula. No evidence of diverticulitis. Peritoneum and mesentery: No ascites, free air, or loculated fluidcollection. No mesenteric inflammation. Osseous structures: No suspicious findings. IMPRESSION 1. Focal severe stenosis of LEFT common femoral artery. 2. Patent bilateral 3 vessel below the runoff to ankle. 3. Proximal severe stenosis of RIGHT common iliac artery. 4. Patent RIGHT common femoral artery. 5. Other areas of disease, as described above.. Tawanna Storey APRN IMG CT ORDERABLES * (ABNORMAL) Creatinine (06/16/2017 10:12 AM EDT) Creatinine 1.05 0.70 - 1.20 mg/dL [facility] Comment: Please note that the pediatric reference intervals supplied above were not validated at [facility]. Results from pediatric patients should be interpreted in conjunction to the patient's age, height and muscle mass. Estimated GFR 52(L) >=60 [facility] Comment: This estimated GFR (eGFR) [...] the following links into your internet browser. [email or web address] Blood specimen (specimen) 06/16/2017 10:12 AM EDT 06/16/2017 10:20 AM EDT Narrative Resulting Agency Comment Spec In Lab Tawanna Storey VISUAL DEVELOPER CHEMISTRY ORDERABL ES [facility] [place] [address] documented in this encounter Visit Diagnoses Diagnosis Intermittent claudication Peripheral vascular disease, unspecified Intermittent claudication Peripheral vascular disease, unspecified documented in this encounter Care Teams Jd Edwards Developer Relationship Specialty Start Date End Date Demetra Goff APRN PCP - General 10/19/12 12/31/17 documented as of this encounter
--- OUTSIDE RECORDS SUMMARY | 2024-06-14 01:50 | XMS_ITS | Encounter Summary ---
Author Organization [facility] [place] [address] Care Team Providers Care Trestle Mechanic Name Role Phone CalumetDemetra barraza Garret SPARROW Primary Care Provider [phone] Encounter Details Date Type Department Care Team (Late st Contact Info) Description 07/18/2017 Orders [place] [phone] Fred Umanzor, RN Atherosclerosis of united ke[place]ow[place] artery of both lower extremities with intermittent [...] PM EDT Office Visit Cardiology at [address] [place] [phone] Rigoberto Diaz MD [place] [address] Scheduled Procedures Name Priority Associated Diagnoses Date/Ti me EGD, UPPER GI ENDOSCOPY (WRV U 2.09) Incontinence of feces, unspecified fecal incontinence type Dysphagia, unspecified type COLONOSCOPY, DIAGNOSTIC (WRV U 3.26) Incontinence of feces, unspecified fecal incontinence type Dysphagia, unspecified type documented as of this encounter Results * EKG 12 Lead (07/18/2017 12:43 PM EDT) Pathologist [facility] Ventricular rate 80 BPM MUSE SYSTEM Atrial Rate 80 BPM MUSE SYSTEM P-R Interval 144 ms MUSE SYSTEM QRS Duration 122 ms MUSE SYSTEM Q-T Interval 412 ms MUSE SYSTEM QTC Calculated (Bezet) 475 ms MUSE SYSTEM Calculated P Mcfarland 76 degrees MUSE SYSTEM Calculated R [place]far[place] 28 degrees MUSE SYSTEM Calculated T Mcfar[place] 44 degrees MUSE SYSTEM INTERPRETATION Normal sinus rhythm Right bundle branch block Abnormal ECG When compared with ECG of 31-MAY-2017 16:17, No significant change was found Confirmed by MD Arnold Gregory A. ([id number]) on 07/18/2017 4:40:55 PM MUSE SYSTEM 07/18/2017 12:4 3 PM EDT 07/18/2017 4:40 PM EDT Jake Montaño MD ECG ORDERABLES Performing Organization Address City/[facility]/ZIP Co de Phone Number MUSE SYSTEM * Prealbumin (07/18/2017 12:30 PM EDT) [facility] Prealbumin 34 20 - 40 mg/dL [facility] Comment: Prealbumin levels are generally lower in the pediatric population; adult concentrations are usually attained near puberty. Blood specimen (specimen) 07/18/2017 12:30 PM EDT 07/18/2017 12:36 PM EDT Narrative Resulting Agency Comment Spec In Lab Jake Montaño MD CHEMISTRY ORDERABLES Performing Organization Address City/[facility]/ZIP Co de Phone Number [facility] [place] [address] * (ABNORMAL) Basic Metabolic Panel (non-fasting) (07/18/2017 12:30 PM EDT) Glucose Lvl 152 65 - 199 mg/dL [facility] Comment:Diabetes: >=200 mg/d L plus symptoms BUN 13 8 - 18 mg/dL [facility] Creatinine 1.01 0.70 - 1.20 mg/dL [facility] Comment: Please note that the pediatric reference intervals supplied above were not validated at [facility] [place] [facility]. Results from pediatric patients should be interpreted in conjunction to the patient's age, height and muscle mass. Sodium 142 135 - 145 mmol/L [facility] Potassium 4.0 3.5 - 5.0 mmol/L [facility] Comment: Please note: ??Patients with WBC >100,000 may have falsely elevated Potassium levels. ??For accurate Potassium quantification in these patients send serum separator tube (gold top) for subsequent determinations. ??Contact the Clinical Chemistry Laboratory if there are any questions. Chloride 105 98 - 107 mmol/L [facility] CO2 22 22 - 31 mmol/L [facility] Anion Gap 15 5 - 15 mmol/L [facility] Calcium 9.8 8.5 - 10.5 mg/dL [facility] Estimated GFR 55(L) >=60 [facility] Comment: This estimated GFR (eGFR) [...] the following links into your internet browser. [email or web address] Blood specimen (specimen) 07/18/2017 12:30 PM EDT 07/18/2017 12:36 PM EDT Narrative Resulting Agency Comment Spec In Lab Jake Montaño MD CHEMISTRY ORDERABLES [facility] [place] [address] * (ABNORMAL) Hemogram (07/18/2017 12:30 PM EDT) WBC 10.6(H) 4.0 - 9.5 x10(3)/[facility] RBC 3.78(L) 4.00 - 5.21 x10(6)/[facility] Hemoglobin 12.8 11.7 - 15.5 gm/dL [facility] Hematocrit 37.4 35.7 - 45.8 % [facility] MCV 98.9(H) 82.6 - 94.4 fL [facility] MCH 33.9(H) 27.1 - 32.0 pg [facility] MCHC 34.2 31.7 - 35.0 gm/dL [facility] Platelets 235 145 - 357 x10(3)/[facility] RDWSD 46.1(H) 37.0 - 46.0 [facility]ORY RDWCV 12.8 11.5 - 14.1 % [facility] MPV 9.7 7.6 - 12.9 [facility]ORY nRBC % Auto 0.0 % [facility] nRBC Abs Auto 0.000 0.000 - 0.000 x10(3)/[facility] Blood specimen (specimen) 07/18/2017 12:30 PM EDT 07/18/2017 12:36 PM EDT Narrative Resulting Agency Comment Spec In Lab Jake Montaño MD HEMATOLOGY ORDERABLE S [facility] [place] [address] documented in this encounter Visit Diagnoses Diagnosis Atherosclerosis of united ke[place]owah artery of both lower extremities with intermittent claudication Atherosclerosis of united keetoowah arteries of the extremities with intermittent claudication documented in this encounter Care Teams Trestle Mechanic Relationship Specialty Start Date End Date Demetra Goff APRN PCP - General 10/19/12 12/31/17 documented as of this encounter
--- OUTSIDE RECORDS SUMMARY | 2024-06-14 01:50 | XMS_ITS | Encounter Summary ---
[place] [address] Care Team Providers Care Eye Clinic Manager Name Role Phone Demetra Goff APRN Primary Care Provider [phone] Reason for Referral * Diagnostic Test (Routine) - Closed Specialty Diagnoses / Procedures Referred By Emy castillo Referred To Contact Radiology Diagnoses Intermittent claudication Procedures CT Angiogram Aorta Lower Extremity Runoff Tawanna Storey APRN [facility] [place] [address] [facility] [place] [address] Referral ID Status Reason Start Date Expiration Date V isits Requested Visits Authorized [id number] Closed Specialty Service Requested 06/16/2017 06/16/2018 1 1 Reason for Visit * Diagnostic Test (Routine) - Closed Specialty Diagnoses / Procedures Referred By Emy castillo Referred To Contact Radiology Diagnoses Intermittent claudication Procedures CT Angiogram Aorta Lower Extremity Runoff Tawanna Storey APRN [facility] [place] [address] [facility] [address] [facility] [place] [address] Referral ID Status Reason Start Date Expiration Date V isits Requested Visits Authorized [id number] Closed Specialty Service Requested 06/16/2017 06/16/2018 1 1 Encounter Details Date Type Department Care Team (Latest Contact Info) Description 07/11/2017 9:10 AM EDT - 07/11/2017 11:59 PM EDT Hospital Encounter CT Scan at [facility] [place] [address] Tawanna Storey APRN [facility] [place] [address] Intermittent claudication Discharge Disposition: Home Social History [...] Indications: Hypothyroidism 10/11/2022 fluticasone (FLONASE) 50 mcg/actuation [place], SuspensionIndication s:Seasonal allergic rhinitis 2 sprays by Each Nare route daily as needed for Rhinitis. 16 g 3 05/03/2016 03/19/2021 loratadine (CLARITIN) 10 mg tablet Take 10 mg by mouth daily. 07/18/2017 [place]-3 Fatty Acids 500 mg Cap Take by [...] PM EDT Office Visit Cardiology at [address] [place] [phone] Rigoberto Diaz MD [facility] [place] [address] Scheduled Procedures Name Priority Associated Diagnoses Date/Ti me EGD, UPPER GI ENDOSCOPY (WRV U 2.09) Incontinence of feces, unspecified fecal incontinence type Dysphagia, unspecified type COLONOSCOPY, DIAGNOSTIC (WRV U 3.26) Incontinence of feces, unspecified fecal incontinence type Dysphagia, unspecified type documented as of this encounter Procedures Procedure Name Priority Date/Time Associated Diagnosis Comments CT ANGIOGRAM AORTA LOWER EXTREMITY RUNOFF Routine 07/11/2017 9:36 AM EDT Intermittent claudication documented in this [...] of disease, as described above.. Tawanna Storey ELECTRICIAN MANAGER IMG CT ORDERABLES documented in this encounter Visit Diagnoses Diagnosis Intermittent claudication Peripheral vascular disease, unspecified documented in this encounter Administered Medications Inactive Administered Medications - up to 3 most recent administrations Medication Order MAR Action Action Date Dose Rate Site iohexol (OMNIPAQUE) 350 mg/mL solution 120 mL 120 mL, Intravenous, ONCE PRN, 1 dose, Starting on 07/11/17 at 0924, Until 07/11/17 at 0936, Per Protocol, Warning Vesicant/Irritant Medication , Routine Given 07/11/2017 9:36 AM EDT 120 mLs documented in this encounter Care Teams Eye Clinic Manager Relationship Specialty Start Date End Date Demetra Goff APRN PCP - General 10/19/12 12/31/17 documented as of this encounter
--- OUTSIDE RECORDS SUMMARY | 2024-06-14 01:50 | XMS_ITS | Encounter Summary ---
Author Organization [facility] [place] [address] Care Team Providers Care Cardiovascular Rn Name Role Phone Weber, Demetra Combs APRN Primary Care Provider [phone] Reason for Visit * Auth/Cert Specialty Diagnoses / Procedures Referred By Emy t Referred To Contact Diagnoses Peripheral vascular disease, unspecified claudication, pvd Procedures PRO THROMBOENDARTECTMY FEMORAL COMMON PRO REVSC OPEN/PERCUTANEOUS ILIAC ART W STNT PLMT&ANGIO PATRICE VSL UNILAT @ENDARTERECTOMY, COMMON FEMORAL W OR W/O PATCH GRAFT (WRVU 15.31) REVSC OPN\PRQ ILIAC ART W\STNT PLMT & ANGIOP SAME VSL (WRVU 10) Referral ID Status Reason Start Date Expiration Date Visits Re quested Visits Authorized [id number] 1 1 Encounter Details Date Type Department Care Team (Late st Contact Info) Description 08/02/2017 3:12 AM EDT - 08/02/2017 7:10 AM EDT Surgery [place] [address] Jake Montaño MD [facility] [place] [address] Not Performed @ENDARTERECTOMY, COMMON FEMORAL W OR W/O PATCH GRAFT (WRVU 15.31) Social History Tobacco Use Types Packs/Day Years [...] Reading Time Taken Comments Blood Pressure 144/63 08/02/2017 6:05 AM EDT Pulse 74 08/02/2017 6:05 AM EDT Temperature 36.6 ??C (97.9 ??F) 08/02/2017 6:05 AM ED T Respiratory Rate 18 08/02/2017 6:05 AM EDT Oxygen Saturation 98% 08/02/2017 6:05 AM EDT Inhaled Oxygen Concentration - - Weight 93 kg (205 lb) 08/02/2017 6:05 AM EDT Height 162.6 cm (5' 4) 08/02/2017 6:05 AM EDT Body Mass Index 35.19 08/02/2017 6:05 AM EDT documented in this encounter Medications [...] Indications: Hypothyroidism 10/11/2022 fluticasone (FLONASE) 50 mcg/actuation [place], SuspensionIndications :Seasonal allergic rhinitis 2 sprays by [...] as of this encounter Progress Notes * Claudia Stockton RN - 08/02/2017 8:10 AM EDT Images from the original note were not included. Patient Name: Lindsey Deleon Patient Age: 66 y.o. Birthdate: 1950 Admit date: 08/02/2017 Attending Physician: Jake Montaño MD Skin: documented in this encounter H&P Notes * Prerna Pickard MD - 08/02/2017 8:13 AM EDT Ms. Deleon was scheduled to undergo bilateral common iliac stents and left femoral endarterectomytoday. However she presented with a fungal infection along her pannus and groins. The case was cancelled as it is an elective operation with claudication; the skin infection increases her risk for a post op groin infection/infection of the prosthetic material. Ms. Deleon was given one dose PO fluconazole in same day. She will continue to use BID nystatin cream at home (she already has a prescription). She will call us when the fungal skin infection resolves, and we will then reschedule her operation. Prerna Pickard MD/MALIK, Pager [phone] Section of Vascular Surgery, PGY-4 documented in this encounter Plan of Treatment Upcoming Encounters Date Type Department Care Team (Late st Contact Info) Description 02/06/2025 2:40 PM EDT Office Visit Cardiology at [address] [address] Rigoberto Diaz MD [facility] [place] [address] Scheduled Procedures Name Priority Associated Diagnoses Date/Ti me EGD, UPPER GI ENDOSCOPY (WRV U 2.09) Incontinence of feces, unspecified fecal incontinence type Dysphagia, unspecified type COLONOSCOPY, DIAGNOSTIC (WRV U 3.26) Incontinence of feces, unspecified fecal incontinence type Dysphagia, unspecified type documented as of this encounter Visit Diagnoses Diagnosis Atherosclerosis of iroquois artery of both lower extremities with intermittent claudication Atherosclerosis of iroquois arteries of the extremities with intermittent claudication Atherosclerotic PVD with intermittent claudication Atherosclerosis of iroquois arteries of the extremities with intermittent claudication Claudication in peripheral vascular disease Peripheral vascular disease, unspecified documented in this encounter Admitting Diagnoses Diagnosis Atherosclerotic PVD with intermittent claudication Atherosclerosis of iroquois arteries of the extremities with intermittent claudication documented in this encounter Administered Medications Inactive Administered Medications - up to 3 most recent administrations Medication Order MAR Action Action Date Dose Rate Site fluconazole (DIFLUCAN) tablet 200 mg 200 mg, Oral, ONCE, 1 dose, On Mon08/02/17 at 0815, STAT, Indication for (Active or Suspected): Skin/Skin Structure Given 08/02/2017 8:07 AM EDT 200 mg documented in this encounter Active and Recently Administered Medications Times are shown in EDT. Scheduled Medication Order 07/31/2017 08/01/2017 08/02/2017 ceFAZolin (ANCEF) 2g in dextrose 5% 100 mL 2 g, Intravenous, ONCE, 1 dose, On Mon08/02/17 at 0630, Administer over 30 Minutes, Redose every 3 hours if CrCl is greater than 20. Redose every 8 hours if CrCl is less than 20., Day of Surgery (Day of Procedure), Indication for (Active or Suspected): Prophylaxis 0630 (Due) fluconazole (DIFLUCAN) tablet 200 mg (COMPLETED) 200 mg, Oral, ONCE, 1 dose, On Mon08/02/17 at 0815, STAT, Indication for (Active or Suspected): Skin/Skin Structure 0807 (Given - Provid er: Claudia Stockton RN) documented in this encounter Care Teams Cardiovascular Rn Relationship Specialty Start Date End Date Demetra Goff APRN PCP - General 10/19/12 12/31/17 documented as of this encounter
--- OUTSIDE RECORDS SUMMARY | 2024-06-14 01:50 | XMS_ITS | Encounter Summary ---
Author Organization [facility] [place] [address] Care Team Providers Care Storage Wharfage Clerk Name Role Phone ConejosDemetra barraza Garret SPARROW Primary Care Provider [phone] Encounter Details Date Type Department Care Team (Late st Contact Info) Description 07/12/2017 Orders Only [place] [phone] Faith Fritz RN PVD (peripheral vascular disease) with claudication Social [...] PM EDT Office Visit Cardiology at [address] [place] [phone] Rigoberto Diaz MD [facility] [place] [address] Scheduled Procedures Name Priority Associated Diagnoses Date/Ti me EGD, UPPER GI ENDOSCOPY (WRV U 2.09) Incontinence of feces, unspecified fecal incontinence type Dysphagia, unspecified type COLONOSCOPY, DIAGNOSTIC (WRV U 3.26) Incontinence of feces, unspecified fecal incontinence type Dysphagia, unspecified type documented as of this encounter Results * STRESS ECHO W CONTRAST W LMTD SPEC DOPP COLOR DOPP (07/18/2017 11:30 AM EDT) EF 65 HEARTLAB SYSTEM Anatomical Region Laterality Modality Other 07/18/2017 Narrative 07/18/2017 1:38 PM EDT Procedure: ?Stress Echocardiogram Patient: ?DELEON LINDSEY D ?(Age): 1950(66y) Med Rec#: ? [id number] ?Sex: ?F ? Site Loc: ? [facility] ?Ht / Wt: ??162(cm)/92.99(k Pt. Loc: ?Echo Lab ?BSA: ?1.97 Study Date: ?? 07/18/2017 ?Pt. Type: Tape: ? Referring: DOROTA MONTAÑO Referring: Dorota Montaño Reading: Andres Garcia ([id number]) Director Of Neighborhood Service Center: Candido Villalobos MS, [facility] Director Of Neighborhood Service Center 2: Alethea Knott ([id number]) Nurse: Crista Evangelista Diagnosis: *ICD-10-PCS Peripheral vascular [...] E-wave Vmax ?1.5 ?m/sec ? MV deceleration [id number] ?msec ? MV A-wave Vmax ?1.2 ?m/sec [...] Normal ? Mid-Inferoseptal ?Normal ? Normal ? [place]-Septal ? Normal ? Normal ? [place]-Anterior ? Normal ? Normal ? [place]-Lateral ?Normal ? Normal ? [place]-Inferior ? Normal ? Normal ? [place]-Tip ?Normal ? Normal ? This report has been electronically signed by: Andres Garcia M.D. ? 07/18/2017 13:27:36 Images reviewed and interpretation verified [facility] Cardiac Ultrasound Laboratory Procedure Note Andres Garcia MD - 07/18/2017 Procedure: Stress Echocardiogram Patient: BEA Mtz (Age): 1950(66y) Med Rec#: [id number] Sex: F Site Loc: [facility] Ht / Wt: 162(cm)/92.99(k Pt. Loc: Echo Lab BSA: 1.97 Study Date: 07/18/2017 Pt. Type: Tape: Referring: DOROTA MONTAÑO Referring: Dorota Montaño Reading: Andres Garcia ([id number]) Director Of Neighborhood Service Center: Candido Villalobos MS, RDCS Director Of Neighborhood Service Center 2: Alethea Knott ([id number]) Nurse: Crista Evangelista Diagnosis: *ICD-10-PCS Peripheral vascular [...] MV E-wave Vmax 1.5 m/sec MV deceleration [id number] msec MV A-wave Vmax 1.2 m/sec MV [...] Normal Mid-Inferior Normal Normal Mid-Inferoseptal Normal Normal [place]-Septal Normal Normal [place]-Anterior Normal Normal [place]-Lateral Normal Normal [place]-Inferior Normal Normal [place]-Tip Normal Normal This report has been electronically signed by: Andres Garcia M.D. 07/18/2017 13:27:36 Images reviewed and interpretation verified [facility] Cardiac Ultrasound Laboratory Dorota Montaño MD ECHO ORDERABLES documented in this encounter Visit Diagnoses Diagnosis PVD (peripheral vascular disease) with claudication Peripheral vascular disease, unspecified PVD (peripheral vascular disease) with claudication Peripheral vascular disease, unspecified documented in this encounter Care Teams Storage Wharfage Clerk Relationship Specialty Start Date End Date Demetra Goff APRN PCP - General 10/19/12 12/31/17 documented as of this encounter
--- OUTSIDE RECORDS SUMMARY | 2024-06-14 01:50 | XMS_ITS | Encounter Summary ---
[place] [address] Care Team Providers Care Plasterer Spray Gun Name Role Phone Demetra Goff APRN Primary Care Provider [phone] Encounter Details Date Type Department Care Team (Late st Contact Info) Description 04/21/2017 Telephone Sleep Center at [facility] [address] [place] [address] Lary Delgado Social History Tobacco Use Types Packs/Day Years [...] encounter Miscellaneous Notes * Telephone Encounter - Deya Ferro MD - 04/21/2017 12:00 PM EDT Left detailed message on voicemail. Deya Ferro MD documented in this encounter Plan of Treatment Upcoming Encounters Date Type Department Care Team (Late st Contact Info) Description 02/06/2025 2:40 PM EDT Office Visit Cardiology at [address] [place] [address] Rigoberto Diaz MD [facility] [place] [address] Scheduled Procedures Name Priority Associated Diagnoses Date/Ti me EGD, UPPER GI ENDOSCOPY (WRV U 2.09) Incontinence of feces, unspecified fecal incontinence type Dysphagia, unspecified type COLONOSCOPY, DIAGNOSTIC (WRV U 3.26) Incontinence of feces, unspecified fecal incontinence type Dysphagia, unspecified type documented as of this encounter Visit Diagnoses Not on filedocumented in this encounter Care Teams Plasterer Spray Gun Relationship Specialty Start Date End Date Demetra Goff APRN PCP - General 10/19/12 12/31/17 documented as of this encounter
--- OUTSIDE RECORDS SUMMARY | 2024-06-14 01:50 | XMS_ITS | Encounter Summary ---
Author Organization [facility] [place] [address] Care Team Providers Care Trolley Wire Installer Name Role Phone CulbersonDemetra APRN Primary Care Provider [phone] Reason for Visit * Auth/Cert Specialty Diagnoses [...] Expiration Date Visits Re quested Visits Authorized [id number] 1 1 Encounter Details Date Type Department Care Team (Latest Contact Info) Description 08/02/2017 5:42 AM EDT - 08/02/2017 8:13 AM EDT Hospital Encounter [place] [address] Jake Montaño MD [facility] [place] [address] Atherosclerosis of ruby artery of both lower extremities with intermittent claudication Discharge Disposition: Home Social [...] Indications: Hypothyroidism 10/11/2022 fluticasone (FLONASE) 50 mcg/actuation [place], SuspensionIndications :Seasonal allergic rhinitis 2 sprays by [...] original note were not included. Patient Name: Linsdey Deleon Patient Age: 66 y.o. Birthdate: 1950 [...] reschedule her operation. Prerna Pickard MD/MALIK, Pager [phone] Section of Vascular Surgery, PGY-4 documented in this encounter Plan of Treatment Upcoming Encounters Date Type Department Care Team (Late st Contact Info) Description 02/06/2025 2:40 PM EDT Office Visit Cardiology at [address] [phone] Rigoberto Diaz MD [facility] [place] [address] Scheduled Procedures Name Priority Associated Diagnoses Date/Ti me EGD, UPPER GI ENDOSCOPY (WRV U 2.09) Incontinence of feces, unspecified fecal incontinence type Dysphagia, unspecified type COLONOSCOPY, DIAGNOSTIC (WRV U 3.26) Incontinence of feces, unspecified fecal incontinence type Dysphagia, unspecified type documented as of this encounter Visit Diagnoses Diagnosis Atherosclerosis of ruby artery of both lower extremities with intermittent claudication Atherosclerosis of ruby arteries of the extremities with intermittent claudication Atherosclerotic PVD with intermittent claudication Atherosclerosis of ruby arteries of the extremities with intermittent claudication documented in this encounter Admitting Diagnoses Diagnosis Atherosclerotic PVD with intermittent claudication Atherosclerosis of ruby arteries of the extremities with intermittent claudication [...] RN) documented in this encounter Care Teams Trolley Wire Installer Relationship Specialty Start Date End Date Demetra Goff APRN PCP - General 10/19/12 12/31/17 documented as of this encounter
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
--- OUTSIDE RECORDS SUMMARY | 2024-06-14 01:50 | XMS_ITS | Encounter Summary ---
[place] [address] Care Team Providers Care Trust Vault Custodian Name Role Phone Pickaway, Demetra Combs APRN Primary Care Provider [phone] Encounter Details Date Type Department Care Team (Late st Contact Info) Description 02/13/2013 1:00 PM EDT - 02/13/2013 2:00 PM EDT [place] [address] Larisa Melendrez MD [facility] [address] [place] [address] EGD, UPPER GI ENDOSCOPY (WRVU 2.09) Social History Tobacco Use Types Packs/Day Years [...] occurs, please contact your MD/ Please call [phone] before 5pm with problems, questions or concerns. After 5pm call [phone] and ask to speak with the design studio consultant telecommunications sales representative. Discharge instructions reviewed with patient who expresses understanding. * Patient Instructions* Larisa Melendrez MD - 02/13/2013 1:34 PM EDT Please see Recommendations in the Provation procedure report which is documented in the procedural note in E-DH. * Attachments The following attachments cannot be sent through Care Everywhere. * UPPER GI ENDOSCOPY: WHAT TO EXPECT AT HOME ([place]) documented in this encounter Medications at Time [...] of this encounter H&P Notes * Larisa Melendrez MD - 02/13/2013 1:11 PM EDT See [...] 2:40 PM EDT Office Visit Cardiology at [address] [place] [place] [address] Rigoberto Diaz MD [facility] [place] [address] Scheduled Procedures Name Priority Associated Diagnoses Date/Ti [...] 3:52 PM EDT) Surgical Pathology Report ? [facility] ? Provider: ?? LARISA MELENDREZ ? Pt. Name: ?? DELEON, LINDSEY D ? Acc #: ?[id number] ?Pt. ? Col Date: ?? 02/13/2013 ? [...] KENN SOTOMAYOR 02/13/2013 3:52 PM EDT Larisa Melendrez MD PATHOLOGY/CYTOLOGY [place] Performing Organization Address [facility] de Phone Number KENN SOTOMAYOR * Specimen to Pathology (surgical or derm) (02/13/2013 1:50 PM EDT) AP Specimen 02/13/2013 1:50 PM EDT 02/13/2013 1:50 PM EDT Narrative KENN RACHELIUM - 02/13/2013 1:50 PM EDT Specimen requisition ordered. ??Separate Pathology report to follow Larisa Melendrez MD PATHOLOGY/CYTOLOGY [place] Performing Organization Address [facility] de Phone Number KENN SOTOMAYOR * UPPER GI ENDOSCOPY (02/13/2013 12:45 PM EDT) UPPER GI ENDOSCOPY [facility] Endoscopy Patient Name: Lindsey Deleon ? Procedure Date: 02/13/2013 12:45 PM ? N: [id number] ? Date of : 1950 ? Age: 62 ? Order #: [id number] ? Procedure: ? Upper GI endoscopy Indications: ? Dysphagia Providers: ? Larisa Melendrez MD, Susie Urena RN, ? Erika Green, Utility Operator, ? Jaimee Roy, Utility Operator Referring : ?Demetra Goff MD Requesting Provider: Moncho Huerta [...] personally performed the entire procedure. ? Larisa Melendrez MD 02/13/2013 1:40 PM This report has been signed electronically. Number of Addenda: 0 Note Initiated On: 02/13/2013 12:45 PM PROVATION 02/13/2013 12:4 5 PM EDT Demetra Goff APRN GENERAL SURGICAL ORD ERABLES PROVATION documented in this encounter Visit Diagnoses Diagnosis Dysphagia Dysphagia, unspecified documented in this encounter Administered Medications Inactive Administered Medications - up to 3 most recent administrations Medication Order MAR Action Action Date Dose Rate Site benzocaine (HURRICANE) 20 % oral spray ONCE PRN, Pain, Starting on Mon02/13/13 at 1320, Until Mon02/13/13 at 1756, For Procedural use. [place] on area for one second. May repeat if necessary. Do not exceed a spray duration of 2 seconds., Intra-Operative (Intra-Procedure) Given 02/13/2013 1:20 PM EDT 2 each diphenhydrAMINE (BENADRYL) injection ONCE PRN, Starting on Mon02/13/13 at 1319, Until Mon02/13/13 at 1756, Itching, Intra-Operative (Intra-Procedure), Routine Given 02/13/2013 1:22 PM EDT 25 mg Right Arm Given 02/13/2013 1:19 PM EDT 25 mg Ri ght Arm fentaNYL 50mcg/mL injection ONCE PRN, Starting on Mon02/13/13 at 1319, Until Mon02/13/13 at 1756, Pain, Intra-Operative (Intra-Procedure), Routine Given 02/13/2013 1:22 PM EDT 50 mcg Right Arm Given 02/13/2013 1:19 PM EDT 50 mcg Ri ght Arm midazolam (VERSED) injection ONCE PRN, Starting on Mon02/13/13 at 1319, Until Mon02/13/13 at 1756, Sleep, Intra-Operative (Intra-Procedure), Routine Given 02/13/2013 1:22 PM EDT 1 mg Right Arm Given 02/13/2013 1:19 PM EDT 1 mg Ri ght Arm documented in this encounter Active and Recently Administered Medications Times are shown in EDT. PRN Medication Order 02/11/2013 02/12/2013 02/13/2013 benzocaine (HURRICANE) 20 % oral spray (CANCELED) ONCE PRN, Pain, Starting on Mon02/13/13 at 1320, Until Mon02/13/13 at 1756, For Procedural use. [place] on area for one second. May repeat [...] Susie Urena RN - Comment: meds for [id number]) fentaNYL 50mcg/mL injection (CANCELED) ONCE PRN, Starting [...] sedation) documented in this encounter Care Teams Trust Vault Custodian Relationship Specialty Start Date End Date Demetra Goff APRN PCP - General 10/19/12 12/31/17 documented as of this encounter
--- OUTSIDE RECORDS SUMMARY | 2024-06-14 01:51 | XMS_ITS | Encounter Summary ---
[place] [address] Care Team Providers Care Knife Changer Name Role Phone Demetra Goff APRN Primary Care Provider [phone] Reason for Visit * Reason Comments Gastroesophageal Reflux Encounter Details Date Type Department Care Team (Late st Contact Info) Description 01/30/2013 8:00 AM EST Office [place] [address] Moncho Bowers MD [facility] [place] [address] GERD (gastroesophageal reflux disease) (Primary Dx); HTN (hypertension) Discharge Disposition: Home Social History Tobacco Use [...] Sign Reading Time Taken Comments Blood Pressure 131/69 01/30/2013 7:38 AM EST Pulse 74 01/30/2013 7:38 AM EST Temperature - - Respiratory Rate 16 01/30/2013 7:38 AM EST Oxygen Saturation 98% 01/30/2013 7:38 AM EST Inhaled Oxygen Concentration - - Weight 81.6 kg (180 lb) 01/30/2013 7:38 AM EST Height 162.6 cm (5' 4) 01/30/2013 7:38 AM EST Body Mass Index 30.9 01/30/2013 7:38 AM EST documented in this encounter Progress Notes * Moncho Bowers MD - 01/30/2013 8:46 AM EST Lindsey Mehta is a 62-year-old female referred to me by Juanita Gonzalez M.D. for evaluation of gastroesophageal reflux disease and large hiatal hernia. She is a woman that has had reflux symptoms for many years and now it has progressed to the point where she is having regurgitation, as well as significant heartburn despite medication. She has had an upper GI endoscopy on 12/06/2012, which showed a 7-cm hiatal hernia. A Garcia capsule was placed at that endoscopy. She had a Garcia study done on Aciphex 20 mg p.o. q. day and that did not show any significant acid reflux on day one; however, on day two she did have acid in her distal esophagus for 7.4% of the study. She also has had an esophageal motility test done, which showed a hypotensive lower esophageal sphincter measuring 4 mmHg. It relaxed appropriately with swallowing. Of ten swallows only five were peristaltic, three were not transmitted, and three were poorly propagated. Mean amplitude in the distal esophagus at 3 and 8 cm of the LES was 20 and 66. Overall impression was of a hypotensive lower esophageal sphincter and ineffective esophageal motility. She does describe significant dysphagia, particularly for breads or meats. She is scheduled for a barium swallow later today following our visit. I had a lengthy discussion with the patient today. Of our 45-minute visit 40 minutes was in [id number] conversation regarding the path of physiology of gastroesophageal reflux disease, as well as various types and sizes of hiatal hernias. I think given the symptomatic nature of her reflux and large hiatal hernia she would likely benefit from a laparoscopic hiatal hernia repair and partial fundoplication. I would recommend a partial fundoplication given her esophageal motility ineffectiveness and I mentioned the risks of surgery to include the possibility of infection, the possibility of bleeding requiring transfusion, possibility of injury to the esophagus or stomach, and a possibility of needing to convert to the open surgery of much less than 1%. Post-op she is likely to experience a component of early satiety, dysphagia, and bloating. The majority of these symptoms decrease the further the gets out from surgery. Her past surgical history is significant for a laparoscopic cholecystectomy and tubal ligation. She does have a BMI of 31; therefore, we would place her on a low-fat diet for two weeks prior to surgery in order to minimize the impact of fatty infiltration of the liver on exposure of the gastroesophageal junction. Overall she seems to understand and would like to proceed. With this in mind we will schedule her for a laparoscopic hiatal hernia and partial fundoplication. documented in this encounter Plan of Treatment Upcoming Encounters Date Type Department Care Team (Late st Contact Info) Description 02/06/2025 2:40 PM EDT Office Visit Cardiology at [address] [place] [address] Rigoberto Diaz MD [facility] [place] [address] Scheduled Procedures Name Priority Associated Diagnoses Date/Ti me EGD, UPPER GI ENDOSCOPY (WRV U 2.09) Incontinence of feces, unspecified fecal incontinence type Dysphagia, unspecified type COLONOSCOPY, DIAGNOSTIC (WRV U 3.26) Incontinence of feces, unspecified fecal incontinence type Dysphagia, unspecified type documented as of this encounter Visit Diagnoses Diagnosis GERD (gastroesophageal reflux disease)- Primary Esophageal reflux HTN (hypertension) Unspecified essential hypertension documented in this encounter Care Teams Knife Changer Relationship Specialty Start Date End Date Demetra Goff APRN PCP - General 10/19/12 12/31/17 documented as of this encounter
--- OUTSIDE RECORDS SUMMARY | 2024-06-14 01:51 | XMS_ITS | Encounter Summary ---
[place] [address] Care Team Providers Care Wire Frame Maker Name Role Phone Andres Hylton MD Primary Care Provider [phone] Reason for Visit * Reason Comments Obstructive Sleep Apnea Encounter Details Date Type Department Care Team (Late st Contact Info) Description 10/10/2011 1:40 PM EST Office [place] [address] Karin Meadows APRN [facility] [place] [address] CHEMA on CPAP (Primary Dx) Social History Tobacco Use Types Packs/Day Years Used Date Smoking Tobacco: Former Sex and Gender Information Value Date Recorded Sex Assigned at Not on file Gender Identity Not on file Sexual Orientation Not on file documented as of this encounter Last Filed Vital Signs Vital Sign Reading Time Taken Comments Blood Pressure 116/81 10/10/2011 2:01 PM EST Pulse 75 10/10/2011 2:01 PM EST Temperature - - Respiratory Rate - - Oxygen Saturation - - Inhaled Oxygen Concentration - - Weight 81.6 kg (180 lb) 10/10/2011 2:01 PM EST Height 163.8 cm (5' 4.5) 10/10/2011 2:01 PM EST Body Mass Index 30.42 10/10/2011 2:01 PM EST documented in this encounter Progress Notes * Karin Meadows, REPAIRER HAIRSPRING - 10/10/2011 2:47 PM EST Report of Outpatient Follow up: History of Present Illness: Lindsey Deleon is a 60-year-old woman who underwent polysomnography on 02/07/2008. Her study showed a moderate degree of obstructive sleep apnea with an AHI of 28. In addition, she had borderline low oxygen saturations throughout the night with a mean of around 89% in both non-REM and REM. Minimum Sa02 was 72%. She also has demonstrated somewhat marginal oxygen saturations. She showed some clearly improvement on CPAP at 14-15 cm, although was not observed in REM or the supine position at these pressures. There was also some continued snoring at these pressures. Pt's pressure was increased to 19cm H20, but still showed obstructive apneas. As a result, she was set up with a BiPap machine inNov. 2008 at a pressure of 22/14cm H2o. Pt was seen in mid-September,, at which time her FFM was still leaking air; she was having someaerophagia and so her EPap pressure was increased to 16cm H2o (22/16). She ret'd in Mar, 2011, at which time we maintained her pressure at 22/16 cm H2o; pt was encouraged to discuss her IBS symptoms with her PCP, as it was unclear whether her discomfort was r/t this or due to aerophagia. Pt presents today for a routine f/up appt. ; she relates that her BiPap quit working for her, so she was provided with a 'loaner' machine from [employer] x 3 months. SHe was reissued her own machine in early June, but unfortunately the EPap pressure was now set at 14 vs 16 cm H2o. She continues to use the maching nightly, despite ongoing gas and bloating. She believes that the BIPap has helped to maintain daytime energy. Her has health issues and she admits that this contributes tosome ongoing daytime fatigue and sleepiness- she is now caring for him 19/06. Lindsey is using a Quattro FFM, size XS, along with a chinstrap- keeps up with routine replacements; Her says that she is still snoring despite use of the machine. Pt's 'loaner' download shows good usage patterns- reflects lower AHI but higher air leakage- this was when she was at lowest weight of 171 lbs- she has regained much of this since then. Current Compliance Download (covers 07/01/11- 10/09/11) indicates: AHI= 11.2 , avg daily use= 7'51, avg vibratory snore index= 0.0, avg leak= 57. Today's [place] Score is /24, indicating Current Sleep Habitus: She becomes tired around 8:30 p.m. and usually goes to bed around that time or slightly later. She will apply the FFM and chinstrap, and gets into bed in supine position. She has no sleep initiation problems. Some nights will awaken to urinate, otherwise dogs will awaken her during the night. theyall sleep on the bed with us. She awakens around 4:30a.m- 5a, generally rested. Physical Examination: Pt is a , avg ht, current weight is 180 lbs, indicating a 1 lb wt loss since her last appt in Mar, 2011. She is pleasant, coop. And in NAD- has upper and lower dentures, sleeps without lower denturesin place. ACTIVE PROBLEM LIST CHEMA Assessment: Pt has been using BiPap at 22/16, but has had equipment problems since then; Pt's 'loaner' downloadshowed good usage patterns- reflects lower AHI but higher air leakage- this was when she was at lowest weight of 171 lbs- she has regained much of this since then. Current download shows improvement without her chinstrap. Abdominal discomfort and gas have continued, despite pressure changes- will reinstate pressure at 22/16 and ask her to use ONLY the FFM, without the chinstrap. Pt will RTC in 3 mos/PRN. ICSD diagnosis (code): 327.23 Provisional: Final: Obstructive sleep apnea Recommendations: 1. Reset BiPap at _22/16_ cm H2O with/without ramp, and heated humidifier 2. Reviewed driving safety; pt is encouraged to parts puller and nap if feeling unsafe behind the wheel at any time. 3. RTC 3 mos/PRN. documented in this encounter Plan of Treatment Upcoming Encounters Date Type Department Care Team (Late st Contact Info) Description 02/06/2025 2:40 PM EDT Office Visit Cardiology at [address] [place] [phone] Rigoberto Diaz MD [facility] [place] [address] Scheduled Procedures Name Priority Associated Diagnoses Date/Ti me EGD, UPPER GI ENDOSCOPY (WRV U 2.09) Incontinence of feces, unspecified fecal incontinence type Dysphagia, unspecified type COLONOSCOPY, DIAGNOSTIC (WRV U 3.26) Incontinence of feces, unspecified fecal incontinence type Dysphagia, unspecified type documented as of this encounter Visit Diagnoses Diagnosis CHEMA on CPAP- Primary Obstructive sleep apnea (adult) (pediatric) documented in this encounter Care Teams Wire Frame Maker Relationship Specialty Start Date End Date Andres Hylton MD [address] [place] [address] PCP - General 10/19/10 10/18/12 documented as of this encounter
--- OUTSIDE RECORDS SUMMARY | 2024-06-14 01:51 | XMS_ITS | Encounter Summary ---
Author Organization [facility] [place] [address] Care Team Providers Care Injection Molding Machine Offbearer Name Role Phone Demetra Goff APRN Primary Care Provider [phone] Encounter Details Date Type Department Care Team (Late st Contact Info) Description 02/08/2013 Orders Only Gastroenterology at [facility] [place] [address] Citlalli Short APRN [facility] [place] [address] [address] Dysphagia (Primary Dx); Dover-Kirill syndrome/esophageal web; GERD (gastroesophageal reflux disease) Social History Tobacco Use Types Packs/Day Years Used Date Smoking Tobacco: Former Alcohol Use Standard Drinks/Week Comments Yes 0 (1 standard drink = 0.6 oz pur e alcohol) Sex and Gender Information Value Date Recorded Sex Assigned at Not on file Gender Identity Not on file Sexual Orientation Not on file documented as of this encounter Progress Notes * Citlalli Short APRN - 02/08/2013 8:37 AM EDT Spoke with Mrs. Deleon regarding barium swallow results~esophageal web noted at C5. Discussed treatment options and will proceed with egd with dilatation with Dr. Posey on 02/13 at 1300. Order placed. Labs order and to be faxed to local hospital. documented in this encounter Miscellaneous Notes * Assessment & Plan Note - Citlalli Short APRN - 02/08/2013 8:52 AM EDT Associated Problem(s): GERD (gastroesophageal reflux disease) Barium swallow 01/2013: esophageal dysmotility and gastroesophageal [...] with one Trace's erosion; Normal examined duodenum. documented in this encounter Plan of Treatment Upcoming Encounters Date Type Department Care Team (Late st Contact Info) Description 02/06/2025 2:40 PM EDT Office Visit Cardiology at [address] [place] [phone] Rigoberto Diaz MD [facility] [address] [address] Scheduled Procedures Name Priority Associated Diagnoses Date/Ti me EGD, UPPER GI ENDOSCOPY (WRV U 2.09) Incontinence of feces, unspecified fecal incontinence type Dysphagia, unspecified type COLONOSCOPY, DIAGNOSTIC (WRV U 3.26) Incontinence of feces, unspecified fecal incontinence type Dysphagia, unspecified type documented as of this encounter Procedures Procedure Name Priority Date/Time Associated Diagnosis Comments UPPER GI ENDOSCOPY Routine 02/08/2013 8:35 AM EDT Dysphagia documented in this encounter Visit Diagnoses Diagnosis Dysphagia- Primary Dysphagia, unspecified Dover-Kirill syndrome/esophageal web Other specified iron deficiency anemias GERD (gastroesophageal reflux disease) Esophageal reflux documented in this encounter Care Teams Injection Molding Machine Offbearer Relationship Specialty Start Date End Date Demetra Goff APRN PCP - General 10/19/12 12/31/17 documented as of this encounter
--- OUTSIDE RECORDS SUMMARY | 2024-06-14 01:51 | XMS_ITS | Encounter Summary ---
[place] [address] Care Team Providers Care Monitor Tech Name Role Phone Demetra Goff APRN Primary Care Provider [phone] Encounter Details Date Type Department Care Team (Late st Contact Info) Description 12/06/2012 2:00 PM EST Office [place] [phone] CLINIC, Demetra Ramachandran, engineering technician Disposition: Home Social History Tobacco Use Types Packs/Day Years Used Date Smoking Tobacco: Former Alcohol Use Standard Drinks/Week Comments Yes 0 (1 standard drink = 0.6 oz pur e alcohol) Sex and Gender Information Value Date Recorded Sex Assigned at Not on file Gender Identity Not on file Sexual Orientation Not on file documented as of this encounter Progress Notes * Demetra Pandya, RN - 12/06/2012 2:46 PM EST 1445 Garcia capsule deployed at 28 cm below incisors during EGD by Dr. Dumont. First pH 7.6. Study is being done on Aciphex 20 mgm daily. documented in this encounter Plan of Treatment Upcoming Encounters Date Type Department Care Team (Late st Contact Info) Description 02/06/2025 2:40 PM EDT Office Visit Cardiology at [address] [place] [address] Rigoberto Diaz MD [facility] [place] [address] Scheduled Procedures Name Priority Associated Diagnoses Date/Ti me EGD, UPPER GI ENDOSCOPY (WRV U 2.09) Incontinence of feces, unspecified fecal incontinence type Dysphagia, unspecified type COLONOSCOPY, DIAGNOSTIC (WRV U 3.26) Incontinence of feces, unspecified fecal incontinence type Dysphagia, unspecified type documented as of this encounter Visit Diagnoses Not on filedocumented in this encounter Care Teams Monitor Tech Relationship Specialty Start Date End Date Demetra Goff APRN PCP - General 10/19/12 12/31/17 documented as of this encounter
--- OUTSIDE RECORDS SUMMARY | 2024-06-14 01:51 | XMS_ITS | Encounter Summary ---
[place] [address] Care Team Providers Care Regulatory Analyst Name Role Phone HuronJoanne barrazalibby Combs APRN Primary Care Provider [phone] Encounter Details Date Type Department Care Team (Late st Contact Info) Description 12/06/2012 2:00 PM EST - 12/06/2012 3:00 PM EST [place] [address] Sindhu Dumont MD [facility] [place] [address] COLONOSCOPY, DIAGNOSTIC (WRVU 3.26) Social History Tobacco Use Types Packs/Day Years [...] Sign Reading Time Taken Comments Blood Pressure 134/63 12/06/2012 2:55 PM EST Pulse 85 12/06/2012 2:55 PM EST Temperature - - Respiratory Rate 16 12/06/2012 2:55 PM EST Oxygen Saturation 100% 12/06/2012 2:55 PM EST Inhaled Oxygen Concentration - - Weight - - Height - - Body Mass Index - - documented in this encounter Discharge Instructions * Discharge Instructions* Jo Mera RN - 12/06/2012 2:57 PM EST You may have received medication before and/or during your procedure which effects judgement and reaction time. Do not drive, operate machinery,drink alcoholic beverages or make important decisions for 24 hours. Be careful on stairs, as you may be unsteady on your feet. You may eat a regular diet as tolerated. Do not smoke if you are alone. IV site-- slight redness or tenderness is normal. You may use a warm compress. If tenderness and redness increase or foul drainage occur please notify your MD. Please call [phone] before 5pm with problems, questions or concerns. After 5 pm call [phone] and ask to speak with the GI fellow yarn conditioner. Discharge instructions reviewed with patient who expresses understanding. * Attachments The following attachments cannot be sent through Care Everywhere. * COLONOSCOPY: WHAT TO EXPECT AT HOME ([place]) * UPPER GI ENDOSCOPY: WHAT TO EXPECT AT HOME ([place]) documented in this encounter Medications at Time of Discharge Medication Sig Dispensed Refills Start Date End Date ziprasidone (GEODON) 20 mg capsule Take 20 mg by mouth 2 times daily (with meals). aspirin 325 mg tablet Take 325 mg by mouth daily. CARBOXYMETHYLCELLUL OSE SODIUM (REFRESH TEARS OPHT) Apply to eye 2 times daily. FOLIC ACID ORAL 10/12/2010 Bifidobacterium Infantis (ALIGN) 4 mg Cap Take 4 mg/day by mouth daily. 12/21/2012 citalopram (CELEXA) 20 mg tabletIndications:D epression Take [...] 5,000 unit Tab Take by mouth. 05/31/2017 MAGNESIUM CHLORIDE MISC by [facility].(Non-Drug; Combo Route) route. 12/21/2012 albuterol (PROVENTIL HFA;VENTOLIN HFA) 90 mcg/Actuation inhalerIndications: chronic obstructive pulmonary disease Inhale 2 puffs into the lungs every 4 hours as needed. Use with spacer Indications: Chronic Obstructive Pulmonary Disease 05/21/2019 rabeprazole (ACIPHEX) 20 mg tablet Take 20 mg by mouth 2 times daily. 02/13/2013 Calcium Citrate-Vitamin D2 1,500-200 mg-unit Tab 10/12/2010 12/21/2012 ASCORBIC ACID (VITAMIN C ORAL) 10/12/2010 02/13/2013 ezetimibe-simvastat in (VYTORIN 10-40) 10-40 mg per tablet 10/12/2010 05/21/20 19 hydrochlorothiazide (HYDRODIURIL) 50 mg tablet 10/12/2010 03/14/2014 documented as of this encounter H&P Notes * Sindhu uDmont MD - 12/06/2012 1:27 PM EST Gastroenterology & Hepatology Pre-Procedure History and Physical Procedure: EGD, colonoscopy, garcia capsule placement Indication: GERD, screening History of Present Illness: Pleasant 61F with GERD, history of polyps. GERD controlled on PPI BID PMH: Patient Active Problem List Diagnoses Code ??? CHEMA (obstructive sleep apnea) 327.23 ??? GERD (gastroesophageal reflux disease) 530.81 ??? HTN (hypertension) 401.9 ??? Hypercholesteremia 272.0 ??? Rheumatoid arthritis 714.0 ??? Depression 311 ??? Emphysema 492.8 ??? Macular degeneration 362.50 Medications: No current facility-administered medications on file prior to encounter. Current Outpatient Prescriptions on File Prior to Encounter Medication Sig Dispense Refill ??? citalopram (CELEXA) 20 mg tablet Take [...] Apply to eye 2 times daily. ??? MAGNESIUM CHLORIDE MISC by Misc.(Non-Drug; Combo Route) route. ??? albuterol (PROVENTIL HFA;VENTOLIN HFA) 90 mcg/Actuation inhaler Inhale 2 puffs into the lungs every 4 hours as needed. Use with spacer Indications: Chronic Obstructive Pulmonary Disease ??? rabeprazole (ACIPHEX) 20 mg tablet Take 20 mg by mouth 2 times daily. ??? Calcium Citrate-Vitamin D2 1,500-200 mg-unit Tab ??? FOLIC ACID ORAL ??? ezetimibe-simvastatin (VYTORIN 10-40) 10-40 mg per tablet ??? hydrochlorothiazide (HYDRODIURIL) 50 mg tablet ??? bisacodyl (DULCOLAX) [address] 1 suppository rectally daily. 60 suppository 12 ??? Cholecalciferol, Vitamin D3, (VITAMIN D-3) 5,000 unit Tab Take by mouth. ??? fluticasone (FLONASE) 50 mcg/Actuation nasal spray 2 Fulton(s), Nasal, QHS ??? Vitamin A-Vitamin C-Vit E-Min (OCUVITE) Tab ??? ASCORBIC ACID (VITAMIN C ORAL) Allergies: Allergies Allergen Reactions ??? Latex Itching Exam: Patient Vitals for the past 24 hrs: BP Pulse Resp SpO2 12/06/12 1256 126/71 mmHg 73 18 99 % Airway examined Chest- clear Heart- RRR, nl s1, s2 Abdomen- normal bowel sounds, soft, non tender Assessment and Plan: Pleasant 61F with GERD and colon polyps. Will proceed with colonoscopy, egd, and garcia capsule placement Conscious sedation. Risks and benefits of the procedure were discussed with the patient. Consent has been signed. documented in this encounter Miscellaneous Notes * Miscellaneous - Provider, Scanning - 12/06/2012 10:18 PM EST * Miscellaneous - Provider, Scanning - 12/06/2012 3:10 PM EST documented in this encounter Plan of Treatment Upcoming Encounters Date Type Department Care Team (Late st Contact Info) Description 02/06/2025 2:40 PM EDT Office Visit Cardiology at [address] [place] [address] Rigoberto Diaz MD [facility] [place] [address] Scheduled Procedures Name Priority Associated Diagnoses Date/Ti me EGD, UPPER GI ENDOSCOPY (WRV U 2.09) Incontinence of feces, unspecified fecal incontinence type Dysphagia, unspecified type COLONOSCOPY, DIAGNOSTIC (WRV U 3.26) Incontinence of feces, unspecified fecal incontinence type Dysphagia, unspecified type documented as of this encounter Procedures Procedure Name Priority Date/Time Associated Diagnosis Comments SURGICAL PATHOLOGY REPORT Routine 12/06/2012 5:18 PM EST SPECIMEN TO PATHOLOGY Routine 12/06/2012 2:50 PM EST EGD WITH BIOPSY (WRVU 2.39) 12/06/2012 1:38 PM EST CRC SCREENING,H/O POLYPS,GERD (LOCAL) COLO/EGD/BRAV(on meds) COLONOSCOPY, DIAGNOSTIC (WRVU 3.26) 12/06/2012 1:38 PM EST CRC SCREENING,H/O POLYPS,GERD (LOCAL) COLO/EGD/BRAV(on meds) COLONOSCOPY Routine 12/06/2012 1:34 PM EST UPPER GI ENDOSCOPY Routine 12/06/2012 1: 33 PM EST documented in this encounter Results * Surgical Pathology Report (12/06/2012 5:18 PM EST) Surgical Pathology Report ? [facility] ? Provider: ?? SINDHU DUMONT ?Pt. Name: ?? DELEON, LINDSEY ? Acc #: ?[id number] ?Pt. ? Col Date: ?? 12/06/2012 ? /Sex: ?1950,(61 years),Female ? Rec Date: ?? 12/06/2012 ? LOC: ?4T ? SURGICAL PATHOLOGY ? ---Pathologic Diagnosis--- ? Endoscopic biopsy - Esophageal mucosa with mild chronic nonspecific ? esophagitis. ? Cr-0 ? 12/07/12 ? AAS ? 12/07/12 Verified by: ? Brittnee Franco MD ? Pathologist ? (Electronic Signature) ? The attending pathologist whose signature appears on this report has ? reviewed all diagnostic slides and has edited the gross and/or ? microscopic portion of the report in rendering the final pathologic ? diagnosis. ? ---Microscopic Description--- ? Slides reviewed, microscopic description not recorded. ? ---Gross Description--- ? Labeled/Fixativ e: ? Mid esophagus, formalin. ? Qty/Size/Weight : ?Six, averaging 0.3 x 0.2 x 0.1 cm. ? Tissue Description: ?? Friable, wispy, evangelista-white fragments. ? Sections/Proces sing: ??(T2) ??aje/PPS ? ---Clinical Information--- ? Specimen Submitted: ? A - Mid esophagus ? Clinical History/Diagnos is: ? Dysphagia CERNER MILLENNIUM 12/06/2012 5:18 PM EST Sindhu Dumont MD PATHOLOGY/CYTOLOGY O [place] Performing Organization Address [facility] Co de Phone Number [facility] * Specimen to Pathology (surgical or derm) (12/06/2012 2:50 PM EST) AP Specimen 12/06/2012 2:50 PM EST 12/06/2012 2:50 PM EST Narrative CERNER MILLENNIUM - 12/06/2012 2:50 PM EST Specimen requisition ordered. ??Separate Pathology report to follow Sindhu Dumont MD PATHOLOGY/CYTOLOGY O [place] Performing Organization Address City/State/[facility] Co de Phone Number [facility] * COLONOSCOPY (12/06/2012 1:34 PM EST) COLONOSCOPY [facility] Endoscopy Patient Name: Lindsey Deleon ? Procedure Date: 12/06/2012 1:34 PM ? Date of : 1950 ? Age: 61 ? Order #: [id number] ? Procedure: ? Colonoscopy Indications: ? High risk colon cancer surveillance: ? Personal history of colonic polyps Providers: ? Sindhu Dumont MD, Valentine Beckett ? Yvette, RN, [...] 5-10 years ? for surveillance. ? _ Sindhu Dumont MD 12/06/2012 2:25 PM Number of Addenda: 0 Note Initiated On: 12/06/2012 1:34 PM PROVATION 12/06/2012 1:34 PM EST Demetra Goff APRN GENERAL SURGICAL ORD ERABLES PROVATION * UPPER GI ENDOSCOPY (12/06/2012 1:33 PM EST) UPPER GI ENDOSCOPY [facility] Endoscopy Patient Name: Lindsey Deleon ? Procedure Date: 12/06/2012 1:33 PM ? N: [id number] ? Date of : 1950 ? Age: 61 ? Order #: [id number] ? Procedure: ? Upper GI endoscopy Indications: ? Heartburn Providers: ? Sindhu Dumont MD, Valentine Beckett ? RANGEL Crawford, Terrence Turk RN Referring : ?Demetra Goff MD, Citlalli Short Medicines: ? Midazolam 2.5 mg IV, Fentanyl 125 ? micrograms IV, See the other ? procedure note for documentation of ? the administered medications Complications: ? No immediate complications. Procedure: ? [...] the ? mouth, and advanced to the second ? part of duodenum. The patient ? tolerated the procedure well. The ? upper GI endoscopy was accomplished ? without difficulty. ? Findings: ? The Z-line was regular and was found 34 cm from the ? incisors. The mid esophagus was mildly ringed, ? biopsies were taken with a cold forceps for histology ? at ~24cm. The GARCIA capsule with delivery system was ? introduced through the mouth and advanced into the ? esophagus, such that the GARCIA pH capsule was ? positioned 28 cm from the incisors, which was 6 cm ? proximal to the EG junction. The GARCIA pH capsule was ? then deployed and attached to the esophageal mucosa. ? The delivery system was then withdrawn. Endoscopy was ? utilized for probe placement and diagnostic ? evaluation. A 7 cm hiatus hernia was present ? (diaphragmatic pinch at 7cm). There was one small ? Trace's erosion without evidence of bleeding.The ? examined duodenum was normal. ? Impression: ?- Z-line regular, 34 cm from the ? incisors. Mildly ringed esophagus, ? the mid esophagus was biopsied. ? - 7cm hiatus hernia with one ? Trace's erosion. ? - Normal examined duodenum. Recommendation: ?- Await pathology results. ? - Await Garcia pH results. ? - Discharge patient to home. ? _ Sindhu Dumont MD 12/06/2012 2:57 PM Number of Addenda: 0 Note Initiated On: 12/06/2012 1:33 PM PROVATION 12/06/2012 1:33 PM EST Demetra Garret [place] [employer] GENERAL SURGICAL ORD ERABLES PROVATION documented in this encounter Visit Diagnoses Not on filedocumented in this encounter Administered Medications Inactive Administered Medications - up to 3 most recent administrations Medication Order MAR Action Action Date Dose Rate Site fentaNYL 50mcg/mL injection ONCE PRN, Starting on Tracey 12/06/12 at 1354, Until Tracey 12/06/12 at 1807, Pain, Intra-Operative (Intra-Procedure), Routine Given 12/06/2012 2:43 PM EST 50 mcg Given 12/06/2012 2:28 PM EST 50 mcg Given 12/06/2012 2:26 PM EST 25 mcg midazolam (VERSED) injection ONCE PRN, Starting on Tracey 12/06/12 at 1355, Until Tracey 12/06/12 at 1807, Sleep, Intra-Operative (Intra-Procedure), Routine Given 12/06/2012 2:43 PM EST 1 mg Given 12/06/2012 2:29 PM EST 1 mg Given 12/06/2012 2:28 PM EST 0.5 mg sodium chloride 0.9% infusion 30 mL/hr, Intravenous, CONTINUOUS, Starting on Tracey 12/06/12 at 1315, Until Tracey 12/06/12 at 1807, Endoscopy (Day of Procedure) New Bag 12/06/2012 1:05 PM EST 30 mL/hr 30 mL/hr documented in this encounter Active and Recently Administered Medications Times are shown in EST. Continuous Medication Order 12/04/2012 12/05/2012 12/06/2012 sodium chloride 0.9% infusion (CANCELED) 30 mL/hr, Intravenous, CONTINUOUS, Starting on Tracey 12/06/12 at 1315, Until Tracey 12/06/12 at 1807, Endoscopy (Day of Procedure) 1305 (New Bag - Prov ider: Uyen Bishop RN) PRN Medication Order 12/04/2012 12/05/2012 12/06/2012 fentaNYL 50mcg/mL injection (CANCELED) ONCE PRN, Starting on Tracey 12/06/12 at 1354, Until Tracey 12/06/12 at 1807, Pain, Intra-Operative (Intra-Procedure), Routine 1354 (Given - Provid er: Valentine Crawford RN)1359 (Given - Provider: Valentine Crawford RN)1404 (Given - Provider: Valentine Crawford RN)1407 (Given - Provider: Valentine Crawford RN)1426 (Given - Provider: Valentine Crawford RN)1428 (Given - Provider: Valentine Crawford RN)1443 (Given - Provider: Valentine Crawford RN) midazolam (VERSED) injection (CANCELED) ONCE PRN, Starting on Tracey 12/06/12 at 1355, Until Tracey 12/06/12 at 1807, Sleep, Intra-Operative (Intra-Procedure), Routine 1355 (Given - Provid er: Valentine Crawford RN)1359 (Given - Provider: Valentine Crawford RN)1404 (Given - Provider: Valentine Crawford RN)1407 (Given - Provider: Valentine Crawford RN)1428 (Given - Provider: Valentine Crawford RN)1429 (Given - Provider: Valentine Crawford RN)1443 (Given - Provider: Valentine Crawford RN) documented in this encounter Care Teams Regulatory Analyst Relationship Specialty Start Date End Date Demetra Goff APRN PCP - General 10/19/12 12/31/17 documented as of this encounter
--- OUTSIDE RECORDS SUMMARY | 2024-06-14 01:51 | XMS_ITS | Encounter Summary ---
[place] [address] Care Team Providers Care Turbine Blade Assembler Name Role Phone Andres Hylton MD Primary Care Provider [phone] Reason for Visit * Reason Comments Obstructive Sleep Apnea Encounter Details Date Type Department Care Team (Late st Contact Info) Description 04/11/2011 9:10 AM EDT [place] [address] Karin Meadows APRN [facility] [address] [place] [address] CHEMA (obstructive sleep apnea) (Primary Dx) Social History Tobacco Use Types Packs/Day Years Used Date Smoking Tobacco: Never Assessed Sex and Gender Information Value Date Recorded Sex Assigned at Not on file Gender Identity Not on file Sexual Orientation Not on file documented as of this encounter Progress Notes * Karin Meadows APRN - 04/11/2011 10:10 AM EDT Report of Outpatient Follow up: History of Present Illness: Lindsey Deleon is a 56-year-old woman who underwent polysomnography on 02/07/2008. Her [...] a pressure of 22/14cm H2o. Pt was last seen in mid-September,, at which time her FFM was still leaking air; she was havingsome aerophagia and so her EPap pressure was increased to 16cm H2o (22/16). Pt presents today for a routine f/up appt. She has been using a Quattro small full face mask and chinstrap- she believes that it is not leaking as much air. She has had no difficulty with tolerating the higher pressure, though admits to gas- has been attributing Irritable Bowel. She has excess dry mouth, has been keeping the humidification dial set at '3'-4', though turned it off last night, as she had no distilled water. I just feel really tired, believes that she is safe behind the wheel. Denies problems with condensation. She is continuing to use her Flonase nasal spray regularly, and believes this is helpful. The patient states that she is not aware of any snoring, but her is using his CPAP and sleeping well, so may not be a good observer. Pt claims that she feels benefit from her BiPap; is alert during the course of the day; however- tends to nap during the day and wants the home to be quiet, so she will nap (mask/machine on) along with him as a result. She is safe behind the wheel. She admits that she has been under significant stress as a result of her 's recent health issues; has had multiple hospitalizations recently. Current Compliance Download (covers 10/11/10-04/10/11) indicates: AHI= 3.9, , avg daily use= 7'13, avg vibratory snore index= 0.0, avg leak= 73.4. Today's [place] Score is 6/24, indicating minimal daytime sleepiness. Current Sleep Habitus: She becomes tired around 8:30 p.m. and usually goes to bed around that time or slightly later. She will apply the FFM and chinstrap, and gets into bed in supine position. She has no sleep initiation problems. Some nights will awaken to urinate, otherwise awakens around 5:30a.m, generally rested. Physical Examination: Pt is a 60 y.o. Female , avg ht, current weight is 181 lbs, indicating a 13 lb wt loss since her last appt in 2009. She is pleasant and coop and in NAD. ACTIVE PROBLEM LIST CHEMA Assessment: Pt has been using her BiPap at The new pressures of 22/16cm H20 and is changing out her equipment more routinely, however she has been under some stress at home; she still has elevated air leakage from her FFM. She has done very well with weight loss, and she does not believe that her problems withgas have worsened. She has IBS and has been having trouble with constipation. Will have her mask fit confirmed given recent weight loss, and maintain current BiPap pressures. She is aware to call if BiPap pressures need to be adjusted to accomodate her ongoing weight loss. Pt to RTC in 6 mos/PRN ICSD diagnosis (code): 327.23 Provisional: Final: Obstructive sleep apnea Recommendations: 1. Maintain BiPap at 22/16__ cm H2O with/without ramp, and heated humidifier 2. Reviewed driving safety; pt is encouraged to pick pulling machine operator and nap if feeling unsafe behind the wheel at any time. 3. RTC 6 mos/PRN documented in this encounter Plan of Treatment Upcoming Encounters Date Type Department Care Team (Late st Contact Info) Description 02/06/2025 2:40 PM EDT Office Visit Cardiology at [address] [phone] Rigoberto Diaz MD [place] [address] Scheduled Procedures Name Priority Associated Diagnoses Date/Ti me EGD, UPPER GI ENDOSCOPY (WRV U 2.09) Incontinence of feces, unspecified fecal incontinence type Dysphagia, unspecified type COLONOSCOPY, DIAGNOSTIC (WRV U 3.26) Incontinence of feces, unspecified fecal incontinence type Dysphagia, unspecified type documented as of this encounter Visit Diagnoses Diagnosis CHEMA (obstructive sleep apnea)- Primary Obstructive sleep apnea (adult) (pediatric) documented in this encounter Care Teams Turbine Blade Assembler Relationship Specialty Start Date End Date Andres Hylton MD [address] [place] [id number] PCP - General 10/19/10 10/18/12 documented as of this encounter
--- OUTSIDE RECORDS SUMMARY | 2024-06-14 01:51 | XMS_ITS | Encounter Summary ---
Author Organization [facility] [place] [address] Care Team Providers Care Psychiatric Social Worker Name Role Phone Unavailable Primary Care Provider Unavailabl e Encounter Details Date Type Department Care Team (Late st Contact Info) Description 10/12/2010 9:40 AM EST Follow-Up Sleep Medicine [facility] [place] [address] Karin Medaows APRN [facility] [place] [address] Social History Tobacco Use Types Packs/Day Years [...] PM EDT Office Visit Cardiology at [address] [phone] Rigoberto Diaz MD [facility] [place] [address] Scheduled Procedures Name Priority Associated Diagnoses Date/Ti me EGD, UPPER GI ENDOSCOPY (WRV U 2.09) Incontinence of feces, unspecified fecal incontinence type Dysphagia, unspecified type COLONOSCOPY, DIAGNOSTIC (WRV U 3.26) Incontinence of feces, unspecified fecal incontinence type Dysphagia, unspecified type documented as of this encounter Visit Diagnoses Not on filedocumented in this encounter
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
--- OUTSIDE RECORDS SUMMARY | 2024-06-14 01:51 | XMS_ITS | Encounter Summary ---
Author Organization [facility] [place] [address] Care Team Providers Care Prepress Proofer Name Role Phone Andres Hylton MD Primary Care Provider [phone] Reason for Visit * Reason Comments GI Problem Encounter Details Date Type Department Care Team (Late st Contact Info) Description 10/11/2012 10:30 AM EST Office [place] [address] Citlalli Short, [employer] [facility] [place] [address] GERD (gastroesophageal reflux disease); Colon cancer screening; IBS (irritable bowel syndrome); Depression; Constipation Discharge Disposition: Home Social History Tobacco Use Types Packs/Day Years Used Date Smoking Tobacco: Former Sex and Gender Information Value Date Recorded Sex Assigned at Not on file Gender Identity Not on file Sexual Orientation Not on file documented as of this encounter Last Filed Vital Signs Vital Sign Reading Time Taken Comments Blood Pressure 146/72 10/11/2012 10:24 AM EST Pulse 88 10/11/2012 10:24 AM EST Temperature - - Respiratory Rate - - Oxygen Saturation - - Inhaled Oxygen Concentration - - Weight 75.3 kg (166 lb) 10/11/2012 10:24 AM EST Height 163.8 cm (5' 4.5) 10/11/2012 10:24 AM ES T Body Mass Index 28.05 10/11/2012 10:24 AM EST documented in this encounter Patient Instructions * Patient Instructions* Citlalli Short APRN - 10/11/2012 11:28 AM EST 1. Lab work today: CBC, CMP, TSH, IgA, TTg and will call if abnormal. 2. Aciphex 20 mg take on an empty stomach 30 minutes before breakfast and supper. Can use Gaviscon as needed for breakthrough symptoms. 3. GERD diet and lifestyle modification sheet. 4. Upper endoscopy with Garcia pH study on medication. 7 days before testing decrease Aciphex to once a day. 5. Colonoscopy screening on same day. 6. IBS symptoms with pelvic floor dysfunction: FODMAP diet and copy provided. Decrease your fiber intake to less than 20 grams per day. 7. MiraLax 1 cap full between supper and bedtime. If no improvement after 7 days then increase to 2cap full between supper and bedtime. 8. Dulcolax suppository. If no bowel movement on day 3, place Dulcolax suppository 1 hour before breakfast. 9. Bathroom routine and can try placing a foot stool under feet to change angle of pelvis. If no improvement then can consider further testing. 10. Probiotics~broad spectrum or you can try Algin, Culturelle or VSL#3: take one tablet daily. Maytake up to 12 weeks before improvement noted. 11. Follow up 2-3 weeks after testing. Citlalli Short APRN [phone] documented in this encounter Progress Notes * Citlalli Short APRN - 10/11/2012 8:11 AM EST Subjective: Patient ID: Lindsey Mehta is a 61 y.o. woman who presents for further evaluation of her gastrointestinal symptoms at the request of Dr. Hylton. HPI Comments: Mrs. Mehta is a pleasant 61 year old woman who presents for further evaluation of her refractory GERD symptoms that began 15 years ago. GERD symptoms described as retrosternal pyrosis, regurgitation~worse when laying flat, sore throat, hoarseness and pre prandial symptoms. She reports that symptoms were initially treated effectively with Nexium but was switched to Aciphex 20 qd 4years ago secondary to insurance coverage. Symptoms were controlled with Aciphex qd until recently and dose was increased to BID secondary to breakthrough symptoms occuring more frequently. Is experiencing less night time awakenings secondary to regurgitation with BID dosing. Overall, notes slight improvement with BID dosing. Admits to intermittent dysphagia to solids with relief after drinking fluids. Liquids go down easily. Recently seen by ENT for f/u and flexible laryngoscopy performed on 10/01/2012 that showed erythemaof the cords with edema of the posterior commissure suggestive of extra-esophageal reflux and erythema of the left vocal cord suggestive of GERD. EGD performed in 2000, unsure of the results but remembers being told you have reflux based on what was seen (no reports available for review). She reports long standing h/o altered bowel habits. Has a bowel movement every 3-4 th day and stools are hard pellet like. Admits straining and incomplete evacuation of stool but no manual extractionof stool or perineal manipulation. Admits to gas, bloating, distention, lower abdominal cramping that is relieved with defecation. Has tried Colace and metamucil with no relief. Finds that Metamucil binds her up too much. Stimulants caused too much discomfort and loose stools. Has been using Davida MOM tablets with some good effect. No blood in stool, rectal bleeding, mucus, rectal or anal pain. Colonoscopy performed in 2000: normal except for 1 benign polyp per patient (no report available for review). Denies acid taste, chest pain, cough, odynophagia, nausea, abdominal pain, early satiety, post prandial symptoms. No food allergies or intolerances. ASA 325 mg qd. Has intentionally lost 35 lbs over the past 8 months. Allergies: Latex Medications: reviewed in [facility] citalopram (CELEXA) 20 mg tablet; IPRATROPIUM/ALBUTEROL SULFATE (COMBIVENT INHL); ziprasidone (GEODON) 20 mg capsule; aspirin 325 mg tablet; BETA- CAROTENE,A, W-C & E/MIN (OCUVITE ORAL); Cholecalciferol, Vitamin D3, (VITAMIN D- 3) 5,000 unit Tab; CARBOXYMETHYLCELLULOSE SODIUM (REFRESH TEARS OPHT); MAGNESIUM CHLORIDE MISC; DISCONTD: Psyllium Seed-Sucrose (METAMUCIL) Powd; albuterol (PROVENTIL HFA;VENTOLIN HFA) 90 mcg/Actuation inhaler rabeprazole (ACIPHEX) 20 mg tablet; fluticasone (FLONASE) 50 mcg/Actuation nasal spray; Vitamin A-Vitamin C-Vit E-Min (OCUVITE) Tab; Calcium Citrate-Vitamin D2 1,500-200 mg-unit Tab; ASCORBIC ACID (VITAMIN C ORAL); FOLIC ACID ORAL; ezetimibe-simvastatin (VYTORIN 10-40) 10-40 mg per tablet; hydrochlorothiazide (HYDRODIURIL) 50 mg tablet; polyethylene glycol-electrolytes (PEG 3350- ELECTROLYTES) 420g solution PMHx: HTN GERD Rheumatoid arthritis Hypercholesterolemia Macular degeneration Depression Emphysema Calcified aortic valve Surgical Hx: S/p tubal ligation S/p cholecystectomy 2002 S/p MSDL~L TVC biopsy 02/2012 Social Hx: Marital status: x 8 years 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 Alcohol Use: none Illicit drug use: none FMHx: no h/o colon or esophageal cancer, IBD, celiac disease or pancreatic disease. Father: at age 72~cirrhosis; EOTH abuse. Recent Tests: Flexible laryngoscopy 10/01/2012: oropharynx, vallecula, epiglottis, supraglottis, subglottis, pryriform sinuses and hypopharynx WNL. Erythema of the cord with edema of the posterior commissure suggestive of Extra-esophageal reflux, erythema of the left vocal cord as well suggestive of GERD. Colonoscopy 2000: benign polyp removed per patient (no report available for review) EGD 2001: ?esophagitis per patient (no report available for review) Review of Systems Constitutional: Negative. HENT: Positive for sore throat, trouble swallowing and voice change. Negative for hearing loss, earpain, nosebleeds, congestion, facial swelling, rhinorrhea, sneezing, drooling, mouth sores, neck pain, neck stiffness, dental problem, postnasal drip, sinus pressure, tinnitus and ear discharge. See HPI Respiratory: Negative. Cardiovascular: Negative. Gastrointestinal: See HPI Musculoskeletal: Negative. Skin: Negative. Neurological: Negative. Hematological: Negative. Psychiatric/Behavioral: Negative. Vital Signs: BP 146/72; P88; Wt 166 lbs; Ht 5'5 Objective: Physical Exam Vitals reviewed. Constitutional: She is oriented to person, place, and time. She appears well- developed and well-nourished. No distress. HENT: Head: Normocephalic and atraumatic. Mouth/Throat: Oropharynx is clear and moist. No oropharyngeal exudate. Eyes: Conjunctivae and EOM are normal. Pupils are equal, round, and reactive to light. Right eye exhibits no discharge. Left eye exhibits no discharge. No scleral icterus. Neck: Normal range of motion. Neck supple. No JVD present. No tracheal deviation present. No thyromegaly present. Cardiovascular: Normal rate, regular rhythm, normal heart sounds and intact distal pulses. Exam reveals no gallop and no friction rub. No murmur heard. Pulmonary/Chest: Effort normal and breath sounds normal. No stridor. No respiratory distress. She has no wheezes. She has no rales. She exhibits no tenderness. Abdominal: Soft. Bowel sounds are normal. She exhibits no distension and no mass. No tenderness. She has no rebound and no guarding. Abdomen obese. No hepatosplenomegaly. Lymphadenopathy: She has no cervical adenopathy. Neurological: She is alert and oriented to person, place, and time. No cranial nerve deficit. Skin: Skin is warm and dry. No rash noted. She is not diaphoretic. No erythema. No pallor. Psychiatric: She has a normal mood and affect. Her behavior is normal. Judgment and thought contentnormal. Assessment and Plan: 61 year old woman who presents for further evaluation of her GERD symptoms. Discussed the pathophysiology, diagnostic tests and treatment options for GERD. With regards to her altered bowel habits, her symptoms are suggestive of IBS-C predominantly with an element of pelvic floor dysfunction. The following plan was formulated. Plan: #GERD: ?NERD; ?esophageal dysmotility 1. Continue to take Aciphex 20 mg on an empty stomach 30 minutes before breakfast and supper. Will await results of EGD and Garcia pH study for further management. 2. EGD with biopsies to r/o BE, EE. If unrevealing consider oem to r/o esophageal dysmotility 3. Garcia pH study on Aciphex 20 mg qd. Instructed patient to decrease Aciphex dose to qd 7 days before testing. 4. Reviewed GERD diet and lifestyle modification. Copy provided. 5. Lab work today: CBC, CMP, TSH, IgA, TTg and will call if abnormal. #IBS-C predominantly with element of pelvic floor dysfunction: 1. Reviewed FODMAP diet and copy provided. Decrease fiber intake to less than 20 grams per day. 2. Colonoscopy screening booked on same day as EGD. 3. Probiotic such as Align, culturelle or VSL#3: take one tablet qd. May take up to 12 weeks beforeimprovement noted. 4. MiraLax 1 cap full between supper and bedtime. If no improvement after 7 days then increase to 2cap full between supper and breakfast. Consider Amitiza 8 mcg qd-BID if no improvement. 5. Use Dulcolax suppository 10 mg MA. If no bowel movement on day 3 then use the suppository 60 minutes before bathroom routine. 6. Bathroom routine. If no improvement then consider AOM and PT for pelvic floor dysfunction. #Follow up 2-3 weeks after testing. Patient understands and is agreeable to the above plan. Written instructions provided. I spent a total of 60 minutes face to face with this patient; 40 minutes were spent counseling the patient in the medical problems described above. Thank you for the referral, Citlalli Short APRN Section of Gastroenterology and Hepatology [facility], [place] [address] documented in this encounter Plan of Treatment Upcoming Encounters Date Type Department Care Team (Late st Contact Info) Description 02/06/2025 2:40 PM EDT Office Visit Cardiology at [address] [address] Rigoberto Diaz MD [place] [address] Scheduled Procedures Name Priority Associated Diagnoses Date/Ti me EGD, UPPER GI ENDOSCOPY (WRV U 2.09) Incontinence of feces, unspecified fecal incontinence type Dysphagia, unspecified type COLONOSCOPY, DIAGNOSTIC (WRV U 3.26) Incontinence of feces, unspecified fecal incontinence type Dysphagia, unspecified type documented as of this encounter Procedures Procedure Name Priority Date/Time Associated Diagnosis Comments DIFFERENTIAL, AUTOMATED Routine 10/11/2012 12:00 PM EST TISSUE TRANSGLUTAMINASE, IGA Routine 10/11/2012 12:00 PM EST Colon cancer screening IBS (irritable bowel syndrome) CBC (WITH DIFF) Routine 10/11/2012 12:00 PM EST Colon cancer screening IBS (irritable bowel syndrome) TSH Routine 10/11/2012 12:00 PM EST Colon cancer screening IBS (irritable bowel syndrome) IGA Routine 10/11/2012 12:00 PM EST Colon cancer screening IBS (irritable bowel syndrome) COMPREHENSIVE METABOLIC PANEL (NON-FASTING) Routine 10/11/2012 12:00 PM EST Colon cancer screening IBS (irritable bowel syndrome) documented in this encounter Results * DIFFERENTIAL, AUTOMATED (10/11/2012 12:00 PM EST) Neutrophils % 59.0 34.0 - 71.0 % [facility] Neutr Abs (ANC) 5.35 1.50 - 6.30 x10(3)/mcL [facility] Lymphocytes % 32.2 19.0 - 53.0 % [facility] Lymphocytes Abs 2.9 1.0 - 3.6 x10(3)/mcL [facility] Monocytes % 6.4 4.0 - 13.0 % [facility] Monocyte Abs 0.6 0.2 - 1.0 x10(3)/mcL [facility] Eosinophils % 2.0 0.0 - 7.0 % [facility] Eosinophils Abs 0.2 0.0 - 0.5 x10(3)/mcL [facility] Basophils % 0.3 0.0 - 2.0 % [facility] Basophils Abs 0.0 0.0 - 0.2 x10(3)/mcL [facility] Immature Gran % 0.10 0.00 - 0.66 % [facility] Comment: Immature granulocytes(IG's)percentage and absolute count will include metamyelocytes, myelocytes, and promyelocytes. Blood smears from CBCs yielding IG's will be scanned manually for concordance. If this scan disagrees with the automated IG or if promyelocytes are noted, a manual differential will be performed. [place] Gran Abs 0.01 0.00 - 0.05 x10(3)/mcL [facility] Blood specimen (specimen) 10/11/2012 12:00 PM EST 10/11/2012 12:05 PM EST Micky Posey MD HEMATOLOGY ORDERABLE S Performing Organization Address [facility] de Phone Number [facility] * Tissue transglutaminase, IgA (10/11/2012 12:00 PM EST) TTG IgA Ab <4.0 <=3.9 u/ml [facility] Comment: Result Interpretation: Negative: ?<4 U/mL Weak Positive: ??4-10 U/mL Positive: ?>10 U/mL Blood specimen (specimen) 10/11/2012 12:00 PM EST 10/11/2012 2:24 PM EST Narrative Resulting Agency Comment Spec In Lab Micky Posey MD IMMUNOLOGY ORDERABLE S Performing Organization Address [facility] de Phone Number [facility] * IgA (10/11/2012 12:00 PM EST) IgA 348 70 - 400 mg/dL [facility] Blood specimen (specimen) 10/11/2012 12:00 PM EST 10/11/2012 12:05 PM EST Narrative Resulting Agency Comment Spec In Lab Micky Posey MD IMMUNOLOGY ORDERABLE S Performing Organization Address [facility] de Phone Number [facility] * TSH (10/11/2012 12:00 PM EST) TSH 4.10 0.27 - 4.20 mcIU/mL [facility] Blood specimen (specimen) 10/11/2012 12:00 PM EST 10/11/2012 12:05 PM EST Narrative Resulting Agency Comment Spec In Lab Micky Posey MD CHEMISTRY ORDERABLES [facility] * Comprehensive metabolic panel (non-fasting) (10/11/2012 12:00 PM EST) Glucose Lvl 98 60 - 199 mg/dL [facility] Comment:Diabetes: >=200 mg/d L plus symptoms BUN 13 8 - 18 mg/dL [facility] Creatinine 0.76 0.70 - 1.20 mg/dL [facility] Comment: Please note that the pediatric reference intervals supplied above were not validated at [facility]. Results from pediatric patients should be interpreted in conjunction to the patient's age, height and muscle mass. Sodium 142 135 - 145 mmol/L [facility] Potassium 3.6 3.5 - 5.0 mmol/L [facility] Comment: Please note: ??Patients with WBC >100,000 may have falsely elevated Potassium levels. ??For accurate Potassium quantification in these patients send serum separator tube (gold top) for subsequent determinations. ??Contact the Clinical Chemistry Laboratory if there are any questions. Chloride 103 98 - 107 mmol/L [facility] CO2 28 22 - 31 mmol/L [facility] Anion Gap 11 5 - 15 mmol/L [facility] Calcium 9.5 8.5 - 10.5 mg/dL [facility] Total Protein 7.6 6.4 - 8.3 gm/dL [facility] Albumin 4.5 3.2 - 5.2 gm/dL [facility] AST 20 0 - 30 unit/L [facility] ALT 19 0 - 30 unit/L [facility] Alk Phos 75 40 - 104 unit/L [facility] Total Bilirubin 0.5 0.2 - 1.3 mg/dL [facility] Bili, Direct 0.1 0.0 - 0.3 mg/dL [facility] Estimated GFR >60 >=60 [facility] Comment: [...] J Am Soc Nephrol;6:1963-72. Blood specimen (specimen) 10/11/2012 12:00 PM EST 10/11/2012 12:05 PM EST Narrative Resulting Agency Comment Spec In Lab Micky Posey MD CHEMISTRY ORDERABLES [facility] * (ABNORMAL) CBC (with Diff) (10/11/2012 12:00 PM EST) WBC 9.1 4.0 - 10.0 x10(3)/mcL [facility] RBC 4.27 3.93 - 5.22 x10(6)/mcL [facility] Hemoglobin 13.8 11.2 - 15.7 gm/dL [facility] Hematocrit 40.6 34.0 - 45.0 % [facility] MCV 95.1(H) 79.0 - 94.0 fL [facility] MCH 32.3(H) 26.6 - 32.2 pg [facility] MCHC 34.0 32.0 - 36.5 gm/dL [facility] Platelets 292 145 - 370 x10(3)/mcL [facility] RDWSD 45.8 35.0 - 46.0 fL [facility]ILL[facility] RDWCV 13.2 10.9 - 14.4 % [facility] MPV 9.9 9.0 - 12.0 fL [facility] Blood specimen (specimen) 10/11/2012 12:00 PM EST 10/11/2012 12:05 PM EST Narrative Resulting Agency Comment Spec In Lab Micky Posey MD HEMATOLOGY ORDERABLE S Performing Organization Address [facility] Co de Phone Number [facility] SOTOMAYOR documented in this encounter Visit Diagnoses Diagnosis GERD (gastroesophageal reflux disease) Esophageal reflux Colon cancer screening Special screening for malignant neoplasms, colon IBS (irritable bowel syndrome) Irritable bowel syndrome Depression Depressive disorder, not elsewhere classified Constipation Unspecified constipation documented in this encounter Care Teams Prepress Proofer Relationship Specialty Start Date End Date Andres Hylton MD [address] [place] [address] PCP - General 10/19/10 10/18/12 documented as of this encounter
--- OUTSIDE RECORDS SUMMARY | 2024-06-14 01:51 | XMS_ITS | Encounter Summary ---
[place] [address] Care Team Providers Care Digital Content Coordinator Name Role Phone Demetra Goff APRN Primary Care Provider [phone] Reason for Visit * Reason Onset Date Comments Other 01/21/2013 gastro Encounter Details Date Type Department Care Team (Late st Contact Info) Description 01/21/2013 Telephone [place] [id number] Jannette Courtney RN Other (gastro) Social History Tobacco Use Types Packs/Day Years Used Date Smoking Tobacco: Former Alcohol Use Standard Drinks/Week Comments Yes 0 (1 standard drink = 0.6 oz pur e alcohol) Sex and Gender Information Value Date Recorded Sex Assigned at Not on file Gender Identity Not on file Sexual Orientation Not on file documented as of this encounter Miscellaneous Notes * Telephone Encounter - Jannette Courtney RN - 01/21/2013 11:35 AM EST Patient seen 12-21-12. She calls today in f/u and I will evaluate the effectiveness of the plan below formulated that day: She was Seen for GERD, IBS- c, HH with ? Surgical repair, pelvic floor. She has had a normal colo. She has erythema of vocal cords on ENT visit. A grajeda demonstrated reflux on aciphex. She calls for results of esoph manometry which have not been read. Dexilant has helped but needs more time, only on for 1 week Miralax at 1 capful has made stool softer, has not needed dulcolax. Does not feel she needs amitiza. 1. FODMAP diet 2. Continue taking culturelle one tablet qd. 3. MiraLax 1 cap full between supper and bedtime every day. If no improvement after 7 days then increase to 2 cap full between supper and breakfast. 4. Call or email me in 2-3 weeks with update and if no improvement then consider Amitiza.8 mcg qd-BID 5. Use Dulcolax suppository 10 mg RI prn. If no bowel movement on day 3 then use the suppository 60minutes before bathroom routine. 6. Bathroom routine~consider MR decefacography, aom and PT referral 1. Stop Aciphex. 2. Start Dexilant 60 mg qd on an empty stomach 30 minutes before breakfast. If symptoms persist then consider referral to surgery to discuss possible HH repair. 3. Recommend eom to r/o esophageal dysmotility. 4. Continue GERD diet and lifestyle modifications. documented in this encounter Plan of Treatment Upcoming Encounters Date Type Department Care Team (Late st Contact Info) Description 02/06/2025 2:40 PM EDT Office Visit Cardiology at [address] [place] [address] Rigoberto Diaz MD [facility] [place] [address] Scheduled Procedures Name Priority Associated Diagnoses Date/Ti me EGD, UPPER GI ENDOSCOPY (WRV U 2.09) Incontinence of feces, unspecified fecal incontinence type Dysphagia, unspecified type COLONOSCOPY, DIAGNOSTIC (WRV U 3.26) Incontinence of feces, unspecified fecal incontinence type Dysphagia, unspecified type documented as of this encounter Visit Diagnoses Not on filedocumented in this encounter Care Teams Digital Content Coordinator Relationship Specialty Start Date End Date Demetra Goff APRN PCP - General 10/19/12 12/31/17 documented as of this encounter
--- OUTSIDE RECORDS SUMMARY | 2024-06-14 01:51 | XMS_ITS | Continuity of Care Document ---
Author Name [facility] Organization [facility] Care Team Providers Care Rotary Bar Operator Name Role Phone [facility] Unavailable Unavailable Social History Combined list of available smoking, tobacco, and other social history from Department of Defense and Veterans Affairs facilities. Social History Type Response Date Comment Sourc e This section is an empty social history section. [facility]
--- OUTSIDE RECORDS SUMMARY | 2024-06-14 01:51 | XMS_ITS | Encounter Summary ---
[place] [address] Care Team Providers Care Nurse Obgyn Name Role Phone Demetra Blankenship APRN Primary Care Provider [phone] Encounter Details Date Type Department Care Team (Late st Contact Info) Description 12/13/2012 3:30 PM EST Office Visit [place] [id number] Micky Posey MD [facility] [place] [address] GERD (gastroesophageal reflux disease) (Primary Dx) Discharge [...] as of this encounter Progress Notes * Micky Posey MD - 12/18/2012 7:48 AM EST [id number] WIRELESS pH CAPSULE STUDY AFTER UPPER ENDOSCOPY Lindsey Deleon Female, 61 yrs, 1950 PCP: DEMETRA BLANKENSHIP STUDY DATES: 12/06/12 to 12/08/12 INTERPRETATION DATE: 12/15/12 PROVIDER: M[place] ([id number]) INDICATION Persistent reflux symptoms despite medical therapy. NOTE: This study was performed on 20 mg of AcipHex twice daily. METHODS After upper endoscopy where landmarks were visualized and measured, in a supervised setting, and after informed consent, a Garcia pH telemetry capsule was deployed orally and attached to the esophageal wall at 5 cm above the upper border of the LES. No complications were noted during this procedure. FINDINGS Visual inspection of the study shows fluctuations in pH values throughout the study consistent witha technically adequate study. NOTE: Day two of the study was limited to just over 18 hours, as the patient was too far from the web site designer during the last six hours of the study. DAY ONE Total Number of Reflux Episodes: 33 Upright Position: 33 Supine Position: 0 Reflux Episodes Longer than Five Minutes: 2 Upright: 2 Supine: 0 Duration of Longest Episode: 11minute(s), upright position Total Distal Esophageal Acid Exposure Time: 33 minute(s). Percent of Total Recording Time: 2.3% Percent of Upright Recording Time: 4.4% Percent of Supine Recording Time: 0% DAY TWO Total Number of Reflux Episodes: 50 Upright Position: 47 Supine Position: 3 Reflux Episodes Longer than Five Minutes: 2 Upright: 2 Supine: 0 Duration of Longest Episode: 27 minutes, upright position Total Distal Esophageal Acid Exposure Time: 81 minute(s). Percent of Total Recording Time: 7.4% Percent of Upright Recording Time: 11.5% Percent of Supine Recording Time: 0.6% Uidxs-Kexna-Hclm (Total) Fraction of Time with pH Less Than 4%: 4.5% Calculated DeMeester Score (normal values are up to 14.72) Day One Calculated DeMeester Score: 9.6 Day Two Calculated DeMeester Score: 22 Ntmgw-Kpmpj-Pryq DeMeester Score (Total): 16.3 During this recording period, the patient reported 3 episodes of chest pain; 1 was associated with documented acid reflux. IMPRESSION During this recording period, while the patient was on 20 mg of AcipHex twice daily, there was evidence of mild pathologic acid reflux on day two of the study, primarily due to a prolonged episode ofacid reflux lasting 27 minutes in the upright position at approximately 10:00 p.m. Reported symptoms were few in nature and were not associated with acid reflux. NORMAL VALUES FOR WIRELESS pH CAPSULE STUDY 1. Total number of reflux episodes = less than 50. 2. Number of episodes longer than 5 minutes = less than 3. 3. Acid exposure time Total = less than 5.3% Upright = less than 6.3% Supine = less than 1.2%. ADDENDUM SAP expresses the likelihood that a specific symptom, i.e., heartburn, regurgitation, chest pain, is associated with acid reflux. By convention, SAP values greater than 95% are positive. Micky Posey MD, PhD java technical architect, [facility] [employer] Section of Gastroenterology and Hepatology [facility] [place] [address] V: [phone] F: [phone] BEL/bcmohsen EC/CC: PCP Citlalli Short APRN documented in this encounter Plan of Treatment Upcoming Encounters Date Type Department Care Team (Late st Contact Info) Description 02/06/2025 2:40 PM EDT Office Visit Cardiology at [address] [address] Rigoberto Diaz MD [place] [address] Scheduled Procedures Name Priority Associated Diagnoses Date/Ti me EGD, UPPER GI ENDOSCOPY (WRV U 2.09) Incontinence of feces, unspecified fecal incontinence type Dysphagia, unspecified type COLONOSCOPY, DIAGNOSTIC (WRV U 3.26) Incontinence of feces, unspecified fecal incontinence type Dysphagia, unspecified type documented as of this encounter Visit Diagnoses Diagnosis GERD (gastroesophageal reflux disease)- Primary Esophageal reflux documented in this encounter Care Teams Nurse Obgyn Relationship Specialty Start Date End Date Demetra Blankenship APRN PCP - General 10/19/12 12/31/17 documented as of this encounter
--- OUTSIDE RECORDS SUMMARY | 2024-06-14 01:51 | XMS_ITS | Encounter Summary ---
[place] [address] Care Team Providers Care Roll Carrier Name Role Phone [place], Demetra Combs APRN Primary Care Provider [phone] Encounter Details Date Type Department Care Team (Latest Contact Info) Description 12/06/2012 12:41 PM EST - 12/06/2012 3:30 PM EST Hospital Encounter [place] [address] Sindhu Dumont MD [facility] DR [place] [address] Discharge Disposition: Home Social History Tobacco Use [...] occur please notify your MD. Please call [phone] before 5pm with problems, questions or concerns. After 5 pm call [phone] and ask to speak with the GI fellow precision lens grinder apprentice. Discharge instructions reviewed with patient who expresses understanding. * Attachments The following attachments cannot be sent through Care Everywhere. * COLONOSCOPY: WHAT TO EXPECT AT HOME (SOMALI) * UPPER GI ENDOSCOPY: WHAT TO EXPECT AT HOME (SOMALI) documented in this encounter Medications at Time [...] by mouth. 05/31/2017 MAGNESIUM [place] [facility] [place]; Combo Route) route. 12/21/2012 albuterol (PROVENTIL HFA;VENTOLIN [...] of this encounter H&P Notes * Sindhu Dumont MD - 12/06/2012 1:27 PM EST Gastroenterology [...] fluticasone (FLONASE) 50 mcg/Actuation nasal spray 2 Barton(s), Nasal, QHS ??? Vitamin A-Vitamin C-Vit E-Min [...] PM EDT Office Visit Cardiology at [address] [place] [address] [facility] [place] [id number] Scheduled Procedures Name Priority Associated Diagnoses Date/Ti [...] 5:18 PM EST) Surgical Pathology Report ? [facility] ? Provider: ?? SINDHU DUMONT ?Pt. Name: ?? DELEON, LINDSEY ? Acc #: ?[id number] ?Pt. ? Col Date: ?? 12/06/2012 ? [...] MD PATHOLOGY/CYTOLOGY [place] Performing Organization Address [facility] Co de Phone Number [facility] * Specimen to Pathology (surgical or derm) (12/06/2012 2:50 PM EST) AP Specimen 12/06/2012 2:50 PM EST 12/06/2012 2:50 PM EST Narrative CERNER MILLENNIUM - 12/06/2012 2:50 PM EST Specimen requisition ordered. ??Separate Pathology report to follow Sindhu Dumont MD PATHOLOGY/CYTOLOGY [place] Performing Organization Address City/State/[facility] Co de Phone Number [facility] * COLONOSCOPY (12/06/2012 1:34 PM EST) COLONOSCOPY [facility] Patient Name: Lindsey Deleon ? Procedure Date: 12/06/2012 1:34 PM ? N: [id number] ? Date of : 1950 ? Age: 61 ? Order #: [id number] ? Procedure: ? Colonoscopy Indications: ? High risk colon cancer surveillance: ? Personal history of colonic polyps Providers: ? Sindhu Dumont MD, Valentine Beckett ? Yvette, RANGEL, Terrence Turk RN Referring : ?Demetra Goff [...] UPPER GI ENDOSCOPY (12/06/2012 1:33 PM EST) [facility] Signature UPPER GI ENDOSCOPY [facility] Patient Name: Lindsey Deleon ? Procedure Date: 12/06/2012 1:33 PM ? N: [id number] ? Date of : 1950 ? Age: 61 ? Order #: [id number] ? Procedure: ? Upper GI endoscopy Indications: ? Heartburn Providers: ? Sindhu Dumont MD, Valentine Beckett ? RANGEL Crawford, Terrence Turk RN Referring MD: ?Demetra Goff MD, Citlalli Short Medicines: ? [...] 12/06/2012 1:33 PM EST Demetra Garret [place] [facility] documented in this encounter Visit Diagnoses Not on filedocumented in this encounter Administered Medications Inactive Administered Medications - up to 3 most recent administrations Medication Order MAR Action Action Date Dose Rate Site sodium chloride 0.9% infusion 30 mL/hr, Intravenous, [...] 1305 (New Bag - Prov ider: Uyen iBshop RN) PRN Medication Order 12/04/2012 12/05/2012 12/06/2012 [...] RN) documented in this encounter Care Teams Roll Carrier Relationship Specialty Start Date End Date Demetra Goff APRN PCP - General 10/19/12 12/31/17 documented as of this encounter
--- OUTSIDE RECORDS SUMMARY | 2024-06-14 01:51 | XMS_ITS | Encounter Summary ---
Author Organization [facility] [place] [address] Care Team Providers Care Inbound Ingredient Logistics Specialist Name Role Phone Demetra Goff APRN Primary Care Provider [phone] Reason for Referral * Surgical (Routine) - Closed Specialty Diagnoses / Procedures Referred By Emy castillo Referred To Contact General Surgery Diagnoses GERD (gastroesophageal reflux disease) Hiatal hernia Citlalli Short APRN [facility] [place] [address] [address] Moncho Bowers MD [facility] [place] [address] Referral ID Status Reason Start Date Expiration Date V isits Requested Visits Authorized [id number] Closed Consult, Test & Treat 01/23/2013 07/22/2013 1 1 Encounter Details Date Type Department Care Team (Late st Contact Info) Description 01/23/2013 Telephone Gastroenterology at [facility] [place] [address] Citlalli Short APRN [facility] [place] [address] [place] [address] Social History Tobacco Use Types Packs/Day Years Used Date Smoking Tobacco: Former Alcohol Use Standard Drinks/Week Comments Yes 0 (1 standard drink = 0.6 oz pur e alcohol) Sex and Gender Information Value Date Recorded Sex Assigned at Not on file Gender Identity Not on file Sexual Orientation Not on file documented as of this encounter Miscellaneous Notes * Telephone Encounter - Citlalli Short APRN - 01/23/2013 2:18 PM EST Spoke with Mrs. Deleon with regards to eom results of IEM. We discussed the large HH, eom and Garcia ph study findings. She is interested in a referral to surgery to discuss repairing HH and order placed. Have also ordered barium swallow to evaluate HH. documented in this encounter Plan of Treatment Upcoming Encounters Date Type Department Care Team (Late st Contact Info) Description 02/06/2025 2:40 PM EDT Office Visit Cardiology at [address] [id number] Rigoberto Diaz MD [facility] [address] [place] [address] Scheduled Procedures Name Priority Associated Diagnoses Date/Ti me EGD, UPPER GI ENDOSCOPY (WRV U 2.09) Incontinence of feces, unspecified fecal incontinence type Dysphagia, unspecified type COLONOSCOPY, DIAGNOSTIC (WRV U 3.26) Incontinence of feces, unspecified fecal incontinence type Dysphagia, unspecified type Scheduled Referrals Name Type Priority Associated Diagnoses Orde r Schedule Referral to General Surgery Outpatient Referral Routine GERD (gastroesophageal reflux disease) Hiatal hernia Ordered: 01/23/2013 documented as of this encounter Results * XR Fluoro Barium swallow (01/30/2013 10:13 AM EST) Anatomical Region Laterality Modality N/A Radiographic Darline ging 01/30/2013 10:1 3 AM EST Narrative 01/30/2013 4:58 PM EST Examination BARIUM SWALLOW Clinical History evaluate type of hiatal hernia; EGD revealed a 7 cm HH Comparison None. Technique A standard double contrast barium swallow and 13 mm barium pill swallow was performed. Fluoro time: 2 minutes 3 sec ?? Findings The patient swallowed barium without difficulty. ??The oral and pharyngeal phases of swallowing are normal. ??There is no laryngeal penetration or aspiration identified. ??There is a esophageal web at the C5 level. ??However, it is not flow limiting. ??Otherwise, the esophagus is structurally normal without intrinsic or extrinsic masses. ??Esophageal mucosa appears normal. ??There is ?? esophageal dysmotility with a standing column of contrast after multiple dry swallows. ??Gastroesophageal reflux is seen. ??There is a large hiatal hernia present measuring 9 cm. ??The patient had no difficulty swallowing a barium pill and it passed into the stomach without difficulty. Impression ? 1. esophageal dysmotility and gastroesophageal reflux seen. ? 2. Large Type 1 sliding hiatal hernia present. ? 3. 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 ? 4. No difficulty with barium pill swallow. Film and interpretation reviewed by the attending Procedure Note Meme Durand MD - 01/30/2013 Examination BARIUM SWALLOW Clinical History evaluate type of hiatal hernia; EGD revealed a 7 cm HH Comparison None. Technique A standard double contrast barium swallow and 13 mm barium pill swallowwas performed. Fluoro time: 2 minutes 3 sec Findings The patient swallowed barium without difficulty. The oral and pharyngeal phases of swallowing are normal. There is no laryngeal penetration or aspiration identified. There is a esophageal web at the C5 level.However, it is not flow limiting. Otherwise, the esophagus is structurally normalwithout intrinsic or extrinsic masses. Esophageal mucosa appears normal. Thereis esophageal dysmotility with a standing column of contrast after multipledry swallows. Gastroesophageal reflux is seen. There is a large hiatalhernia present measuring 9 cm. The patient had no difficulty swallowing a bariumpill and it passed into the stomach without difficulty. Impression 1. esophageal dysmotility and gastroesophageal reflux seen. 2. Large Type 1 sliding hiatal hernia present. 3. 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 4. No difficulty with barium pill swallow. Film and interpretation reviewed by the attending Micky Posey MD IMG FLUORO ORDERABLE S documented in this encounter Visit Diagnoses Diagnosis GERD (gastroesophageal reflux disease)- Primary Esophageal reflux Hiatal hernia Diaphragmatic hernia without mention of obstruction or gangrene GERD (gastroesophageal reflux disease) Esophageal reflux Hiatal hernia Diaphragmatic hernia without mention of obstruction or gangrene documented in this encounter Care Teams Inbound Ingredient Logistics Specialist Relationship Specialty Start Date End Date Demetra Goff APRN PCP - General 10/19/12 12/31/17 documented as of this encounter
--- OUTSIDE RECORDS SUMMARY | 2024-06-14 01:51 | XMS_ITS | Encounter Summary ---
Author Organization [facility] [place] [address] Care Team Providers Care Utility Clerk Name Role Phone Demetra Goff APRN Primary Care Provider [phone] Reason for Visit * Reason Comments Follow-up Encounter Details Date Type Department Care Team (Late st Contact Info) Description 12/21/2012 9:30 AM EST Follow-Up Gastroenterology at [facility], operated by [facility] [place] [address] Citlalli Short GUN BARREL FINISHER [facility] [place] [address] GERD (gastroesophageal reflux disease); Dysphagia Discharge Disposition: Home Social History Tobacco Use [...] Sign Reading Time Taken Comments Blood Pressure 142/81 12/21/2012 9:27 AM EST Pulse 95 12/21/2012 9:27 AM EST Temperature - - Respiratory Rate - - Oxygen Saturation - - Inhaled Oxygen Concentration - - Weight 79.8 kg (176 lb) 12/21/2012 9:27 AM EST Height 162.6 cm (5' 4) 12/21/2012 9:27 AM EST Body Mass Index 30.21 12/21/2012 9:27 AM EST documented in this encounter Patient Instructions * Patient Instructions* Citlalli Short APRN - 12/21/2012 9:43 AM EST #IBS-C predominantly with element of pelvic floor dysfunction: 1. Reviewed FODMAP diet and copy provided. Decrease fiber intake to less than 20 grams per day. 2. Continue taking culturelle one tablet qd. May take up to 12 weeks before improvement noted. 3. MiraLax 1 cap full between supper and bedtime every day. If no improvement after 7 days then increase to 2 cap full between supper and breakfast. 4. Call or email me in 2-3 weeks with update and if no improvement re: bowel movements then consider Amitiza. 5. Use Dulcolax suppository 10 mg IN. If no bowel movement on day 3 then use the suppository 60 minutes before bathroom routine. 6. Follow up as needed #GERD: 1. Change your proton pump inhibitor~stop taking Aciphex. 2. Start Dexilant 60 mg daily~take on an empty stomach 30 minutes before breakfast and will send the prescription to your pharmacy. 3. Esophageal manometry to rule out an esophageal dysmotility given your difficulty swallowing food. 4. Will call you once I receive the results. 5. Follow up as needed. Citlalli Short APRN [phone] documented in this encounter Progress Notes * Citlalli Short APRN - 12/21/2012 9:25 AM EST Subjective: Patient ID: Lindsey Mehta is a 61 y.o. woman who presents for follow up of her gastrointestinal symptoms. HPI Comments: Mrs. Mehta is a pleasant [...] discomfort and loose stools. Has been using Sapato.ru MOM tablets with some good effect. No [...] 35 lbs over the past 8 months. Interval Hx: Overall, she reports that GERD symptoms~burning sensation in her throat, hoarseness, retrosternal pyrosis, regurgitation and pre prandial persists despite Aciphex. The dysphagia to solids and feeling of fullness in her chest continue to occur intermittently. IBS-C: she reports that symptoms remained unchanged except for less gas and bloating since startingthe probiotic. She reports that constipation is unchanged but reports misunderstanding plan and didnot use Miralax daily. She thought that MiraLax was only to be used as needed. The few times she tried MiraLax did find after a 2-3 days some relief of her constipation. Less straining and felt more e mpty after defecation. The gas, bloating, distention and abdominal cramping would improve some after defecation. No blood in stool, rectal bleeding, rectal or anal pain. Medications failed: Aciphex~persistent symptoms and Garcia pH study revealed mild pathological evidence of acid reflux on day 2. Allergies Allergen Reactions ??? Latex Itching Current Outpatient Prescriptions on File Prior to Visit Medication Sig Dispense Refill ??? Bifidobacterium Infantis (ALIGN) 4 mg Cap Take 4 mg/day by mouth daily. ??? citalopram (CELEXA) 20 mg tablet Take 2 tablets by mouth daily. 60 tablet ??? bisacodyl (DULCOLAX) [address] 1 suppository rectally daily. 60 suppository 12 ??? IPRATROPIUM/ALBUTEROL SULFATE (COMBIVENT INHL) Inhale 14.7 [...] 5,000 unit Tab Take by mouth. ??? CARBOXYMETHYLCELLULOSE SODIUM (REFRESH [...] mg by mouth 2 times daily. ??? fluticasone (FLONASE) 50 mcg/Actuation nasal spray 2 Emerson(s), Nasal, QHS ??? Vitamin A-Vitamin C-Vit E-Min (OCUVITE) Tab ??? Calcium Citrate-Vitamin D2 1,500-200 mg-unit Tab ??? ASCORBIC ACID (VITAMIN C ORAL) ??? FOLIC ACID ORAL ??? ezetimibe-simvastatin (VYTORIN 10-40) 10-40 mg per tablet ??? 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 Alcohol Use: none Illicit drug use: none FMHx: no h/o colon or esophageal cancer, IBD, celiac disease or pancreatic disease. Father: at age 72~cirrhosis; EOTH abuse. Recent Tests: *Garcia pH study 12/13/2012 on Aciphex qd: Calculated DeMeester Score (normal values are up to 14.72); day One Calculated DeMeester Score: 9.6; day Two Calculated DeMeester Score: 22; qjaen-Jlsty-Wqlr DeMeester Score (Total): 16.3. During this recording period, while the patient was on 20 mg of AcipHex twice daily, there was evidence of mild pathologic acid reflux on day two of the study, primarilydue to a prolonged episode of acid reflux lasting 27 minutes in the upright position at approximately 10:00 p.m. Reported symptoms were few in nature and were not associated with acid reflux. *EGD 12/06/2012: Z-line regular, 34 cm from the incisors. Mildly ringed esophagus, the mid esophaguswas biopsied~Esophageal mucosa with mild chronic nonspecific esophagitis; 7cm hiatus hernia with one Trace's erosion; normal examined duodenum. *Colonoscopy 12/06/2012: The examined portion of the ileum was normal; diverticulosis in the entire examined colon; distal rectum and anal verge are normal on retroflexion view; non-thrombosed external hemorrhoids *Flexible laryngoscopy 10/01/2012: oropharynx, vallecula, epiglottis, supraglottis, subglottis, pryriform sinuses and hypopharynx WNL. Erythema of the cord with edema of the posterior commissure suggestive of Extra-esophageal reflux, erythema of the left vocal cord as well suggestive of GERD. Colonoscopy 2001: benign polyp removed per patient (no report available for review) *EGD 2001: ?esophagitis per patient (no report available for review) Review of Systems Constitutional: Negative. HENT: Positive for sore throat, trouble swallowing and voice change. Negative for hearing loss, earpain, nosebleeds, congestion, facial swelling, rhinorrhea, sneezing, drooling, mouth sores, neck pain, neck stiffness, dental problem, postnasal drip, sinus pressure, tinnitus and ear discharge. See HPI Respiratory: Negative. Cardiovascular: Negative. Gastrointestinal: Positive for constipation. Negative for nausea, vomiting, diarrhea, blood in stool, abdominal distention, anal bleeding and rectal pain. See HPI Skin: Negative. Neurological: Negative. Psychiatric/Behavioral: Negative. Vital Signs: BP 142/81; P 95; Wt 176 lbs; Ht 5'4 Objective: Physical Exam Vitals reviewed. Constitutional: She [...] She exhibits no distension and no mass. There is no tenderness. There is no rebound and no guarding. No hepatosplenomegaly. Lymphadenopathy: She has no cervical [...] 61 year old woman who presents for follow up of her GERD and IBS-C predominantly symptoms. #GERD: symptoms remain unchanged despite taking Aciphex. The EGD revealed a mildly ringed esophagusand biopsies showed esophageal mucosa with mild chronic nonspecific esophagitis, moderate sized HH with one Trace's erosion. The Garcia pH study on Aciphex daily was positive on day 2 for mild pathological evidence of acid reflux; day DeMeester score 22 and 48 hour DeMeester score 16.3 (normal 14.72). Discussed the results of both tests and question esophageal dysmotility given her intermittent dysphagia to solids but also the mildly ringed esophagus noted during the EGD. The following plan was formulated. 1. Stop Aciphex. 2. Start Dexilant 60 mg qd on an empty stomach 30 minutes before breakfast. If symptoms persist then consider referral to surgery to discuss possible HH repair. 3. Recommend eom to r/o esophageal dysmotility. 4. Continue GERD diet and lifestyle modifications. 5. Will await results for further management and will contact patient with results of eom. #IBS-C predominantly with element of pelvic floor dysfunction: she reports some improvement of her gas/bloating with taking Align. Discussed that symptoms may improve with adhering to a more consistent bowel regimen and she is in agreement. Also discussed the results of her colonoscopy that revealed a normal colon and no polyp or malignancies. The following plan was formulated. 1. FODMAP diet 2. Continue taking culturelle one tablet qd. 3. MiraLax 1 cap full between supper and bedtime every day. If no improvement after 7 days then increase to 2 cap full between supper and breakfast. 4. Call or email me in 2-3 weeks with update and if no improvement then consider Amitiza.8 mcg qd-BID 5. Use Dulcolax suppository 10 mg IN prn. If no bowel movement on day 3 then use the suppository 60minutes before bathroom routine. 6. Bathroom routine~consider MR decefacography, aom and PT referral #Follow up as needed Patient understands and is agreeable to the above plan. Written instructions provided. I spent a total of 22 minutes face to face with this patient; 18 minutes were spent counseling the patient in the medical problems described above. Citlalli Short APRN Section of Gastroenterology and Hepatology [facility] [place] [address] documented in this encounter Plan of Treatment Upcoming Encounters Date Type Department Care Team (Late st Contact Info) Description 02/06/2025 2:40 PM EDT Office Visit Cardiology at [address] [place] [address] Rigoberto Diaz MD [facility] [place] [address] Scheduled Procedures Name Priority Associated Diagnoses Date/Ti me EGD, UPPER GI ENDOSCOPY (WRV U 2.09) Incontinence of feces, unspecified fecal incontinence type Dysphagia, unspecified type COLONOSCOPY, DIAGNOSTIC (WRV U 3.26) Incontinence of feces, unspecified fecal incontinence type Dysphagia, unspecified type documented as of this encounter Visit Diagnoses Diagnosis GERD (gastroesophageal reflux disease) Esophageal reflux Dysphagia Dysphagia, unspecified documented in this encounter Care Teams Utility Clerk Relationship Specialty Start Date End Date Demetra Goff APRN PCP - General 10/19/12 12/31/17 documented as of this encounter
--- OUTSIDE RECORDS SUMMARY | 2024-06-14 01:51 | XMS_ITS | Encounter Summary ---
Author Organization [facility] Address [facility] [place] [address] Care Team Providers Care Air Sealing Technician Name Role Phone [place], Demetra Combs APRN Primary Care Provider [phone] Encounter Details Date Type Department Care Team (Latest Contact Info) Description 01/30/2013 8:48 AM EST - 01/30/2013 11:59 PM [facility] Hospital Encounter XRay at [address] [place] [address] CLINIC, Micky Albrecht MD [facility] [place] [address] GERD (gastroesophageal reflux disease); Hiatal hernia Discharge Disposition: Home Social History Tobacco Use [...] for Pain. 350 mL 0 02/19/2013 03/14/2014 LACTOBACILLUS RHAMNOSUS GG (CULTURELLE ORAL) Take by [...] mg by mouth 2 times daily. 02/13/2013 ASCORBIC ACID (VITAMIN C ORAL) 10/12/2010 02/13/2013 ezetimibe-simvastat in (VYTORIN 10-40) 10-40 mg per tablet 10/12/2010 05/21/20 19 hydrochlorothiazide (HYDRODIURIL) 50 mg tablet 10/12/2010 03/14/2014 documented as of this encounter Miscellaneous Notes * Miscellaneous - Provider, Scanning - 02/05/2013 2:10 PM EDT documented in this encounter Plan of Treatment Upcoming Encounters Date Type Department Care Team (Late st Contact Info) Description 02/06/2025 2:40 PM EDT Office Visit Cardiology at [address] [place] [phone] Rigoberto Diaz MD [facility] [place] [address] Scheduled Procedures Name Priority Associated Diagnoses Date/Ti me EGD, UPPER GI ENDOSCOPY (WRV U 2.09) Incontinence of feces, unspecified fecal incontinence type Dysphagia, unspecified type COLONOSCOPY, DIAGNOSTIC (WRV U 3.26) Incontinence of feces, unspecified fecal incontinence type Dysphagia, unspecified type documented as of this encounter Procedures Procedure Name Priority Date/Time Associated Diagnosis Comments XR FLUORO BARIUM SWALLOW (SINGLE CONTRAST) Routine 01/30/2013 10:13 AM EST GERD (gastroesophageal reflux disease) Hiatal hernia documented in this encounter Results * XR Fluoro Barium [...] Diagnosis GERD (gastroesophageal reflux disease) Esophageal reflux Hiatal hernia Diaphragmatic hernia without mention of obstruction or gangrene documented in this encounter Administered Medications Inactive Administered Medications - up to 3 most recent administrations Medication Order MAR Action Action Date Dose Rate Site barium sulfate (EZPAQUE) oral suspension 135 mL 135 mL, Oral, ONCE, 1 dose, On Mon01/30/13 at 1045, Routine Given 01/30/2013 10:45 AM EST 135 mLs Barium Sulfate 210 % Susp 135 mL 135 mL, Oral, ONCE, On 01/30/13 at 1045, 1 dose Given 01/30/2013 10:45 AM EST 135 mLs documented in this encounter Care Teams Air Sealing Technician Relationship Specialty Start Date End Date Demetra Goff APRN PCP - General 10/19/12 12/31/17 documented as of this encounter
--- OUTSIDE RECORDS SUMMARY | 2024-06-14 01:51 | XMS_ITS | Encounter Summary ---
[place] [address] Care Team Providers Care Salesperson Meats Name Role Phone Demetra Blankenship APRN Primary Care Provider [phone] Encounter Details Date Type Department Care Team (Latest Contact Info) Description 01/15/2013 3:00 PM EST Procedure [place] [address] CLINIC, Demetra Ramachandran, RN GERD (gastroesophageal reflux disease) (Primary Dx) Discharge [...] Progress Notes * Micky Posey MD - 01/21/2013 2:22 PM EST ESOPHAGEAL MANOMETRY Lindsey Deleon Female, 62 yrs, 1950 PCP: DEMETRA BLANKENSHIP STUDY DATE: 01/15/13 PROVIDER: [place] ([id number]) INDICATION Reflux symptoms. METHODS Stationary esophageal manometry was performed with the iLink esophageal motility system utilizing the Polygram software with a 4-channel solid-state motility probe. The transducers are spaced 5 cm apart, and the distal transducer is circumferential, while the proximal three transducers are placed radially above it. Station pull-through technique is utilized to define the lower esophageal sphincter, whose resting tone is determined by the circumferential transducer. Wet swallows are performed in the body of the esophagus with the distal transducer placed 3 and 8 cm above the lower esophageal sphincter zone. The upper esophageal sphincter zone is discerned by station pull-through technique and measured using the circumferential transducer. LES (lower esophageal sphincter) Lower Border: 41 cm Upper Border: 38 cm Mid-Inspiratory Resting Pressure: below normal limits at 4 mmHg using the distal circumferential transducer (normal=13.5-34.5 mmHg). Water Swallows On 6 of 6 swallows the LES relaxed appropriately. Mean residual LES resting pressure was normal at 1 mmHg (normal less than or equal to 8 mmHg). BODY OF ESOPHAGUS Water Swallows: 10 Peristaltic: 5 Not Transmitted: 3 Simultaneous: 0 Poorly Propagated: 3 Mean Amplitude of Contraction At 3 cm above the mid portion of the LES: below normal limits at 20 mmHg (normal = 30 mmHg and above) At 8 cm above the mid portion the LES: below normal limits at 66 mmHg (normal = 30 mmHg and above) UES (upper esophageal sphincter) Identified at 20 cm and extended to 17 cm. UES resting pressure normal at 41 mmHg (normal=30-150 mmHg); relaxation complete. IMPRESSION 1. Hypotensive LES. 2. Normal LES relaxation. 3. Normal UES resting pressure. 4. Normal UES relaxation. 5. Ineffective esophageal motility given that only 5 of 10 swallows were peristaltic in nature. In addition, the mean amplitude of contraction in the distal esophagus was below 30 mmHg. RECOMMENDATION 1. Ineffective esophageal motility is commonly found in patients with acid reflux disease. 2. Low LES pressure in this patient may reflect a large hiatal hernia. Micky Posey, PhD, MD customer quality engineer, [facility] [employer] Section of Gastroenterology and Hepatology [facility] [place] [address] V: [phone] F: [phone] JAY/dequan CC/EC: PCP Citlalli Short APRN * Demetra Pandya, RN - 01/15/2013 3:11 PM EST Esophageal manometry performed without difficulty and was fairly well tolerated. Discharged from lab without voiced concerns. documented in this encounter Plan of Treatment Upcoming Encounters Date Type Department Care Team (Late st Contact Info) Description 02/06/2025 2:40 PM EDT Office Visit Cardiology at [address] [place] [address] Rigoberto Diaz MD [facility] [place] [address] Scheduled Procedures Name Priority Associated Diagnoses Date/Ti me EGD, UPPER GI ENDOSCOPY (WRV U 2.09) Incontinence of feces, unspecified fecal incontinence type Dysphagia, unspecified type COLONOSCOPY, DIAGNOSTIC (WRV U 3.26) Incontinence of feces, unspecified fecal incontinence type Dysphagia, unspecified type documented as of this encounter Visit Diagnoses Diagnosis GERD (gastroesophageal reflux disease)- Primary Esophageal reflux documented in this encounter Care Teams Salesperson Meats Relationship Specialty Start Date End Date Demetra Blankenship APRN PCP - General 10/19/12 12/31/17 documented as of this encounter
--- OUTSIDE RECORDS SUMMARY | 2024-06-14 01:51 | XMS_ITS | Encounter Summary ---
[place] [address] Care Team Providers Care Paintings Conservator Name Role Phone Andres Hylton MD Primary Care Provider [phone] Reason for Visit * Reason Comments Obstructive Sleep Apnea Encounter Details Date Type Department Care Team (Late st Contact Info) Description 04/24/2012 9:40 AM EDT Office [place] [address] Karin Meadows APRN [facility] [place] [address] CHEMA on CPAP (Primary Dx) Social History Tobacco Use Types Packs/Day Years Used Date Smoking Tobacco: Former Sex and Gender Information Value Date Recorded Sex Assigned at Not on file Gender Identity Not on file Sexual Orientation Not on file documented as of this encounter Last Filed Vital Signs Vital Sign Reading Time Taken Comments Blood Pressure 122/70 04/24/2012 10:42 AM EDT Pulse 68 04/24/2012 10:42 AM EDT Temperature - - Respiratory Rate - - Oxygen Saturation - - Inhaled Oxygen Concentration - - Weight 78 kg (172 lb) 04/24/2012 10:42 AM EDT Height 162.6 cm (5' 4) 04/24/2012 10:42 AM EDT Body Mass Index 29.52 04/24/2012 10:42 AM EDT documented in this encounter Progress Notes * Karin Meadows, ELECTRIC METER TESTER HELPER - 04/24/2012 10:44 AM EDT Report of Outpatient Follow up: [...] of 22/14cm H2o. Pt was seen in Sep, 2011, at which time we resumed her pressure at 22/16 cm H2o; pt was encouraged to discuss her IBS symptoms with her PCP, as it was unclear whether her discomfort was r/t this or due to aerophagia. She was urged to use only the FFM, size extra-small to accomodate pressures and her pattern of sleeping without bottom dentures in place. Pt presents today for a routine f/up appt. ; she relates that she is now using her own machine in the Fall She continues to use the maching nightly, using Gas- X and this has improved her gas and bloating. She believes that the BIPap has helped to provide her with a more restful night's sleep, and to maintain daytime energy. Her has health issues and she admits that this contributes to some ongoing daytime fatigue and sleepiness- she is now caring for him /. Her says that she is still snoring despite use of the machine, but it's a lot quieter than it was. Pt's download shows continued compliance; she has been only using the Quattro FFM, size extra small; She removes bottom dentures only, no chinstrap. She continues to hear air leakage usually every night, for a few minutes, But is able to tighten the straps to eliminate the leakage. She shows someexcoriation to the bridge of her nose. She denies nasal congestion- has deviated septum and uses Flonase, Has some excess dry mouth- keeping humidification set at '1-2', to good effect. Current Compliance Download (covers 10/02/11- 04/23/12) indicates: AHI= 5.1 , avg daily use= 7'40, avg vibratory snore index= 0.0, avg leak= 48. Today's Zwolle Score is 5/24, indicating minimal daytime sleepiness. Asserts that she remains safe behind the wheel. Current Sleep Habitus: She becomes tired around 8:30 p.m. and usually goes to bed around that time or slightly later. She will apply the FFM and chinstrap, and gets into bed in supine position. She has no sleep initiation problems. Some nights will awaken to urinate, otherwise dogs will awaken her during the night. theyall sleep on the bed with us. She is able to resume sleep easily; awakening around 4:30a.m- 5a, generally rested. Physical Examination: Pt is a 61 y.o. female , avg ht, current weight is 180 lbs, indicating a 1 lb wt loss since her last appt in Mar, 2011. She is pleasant, coop. And in NAD- has upper and lower dentures, sleeps withoutlower dentures in place. ACTIVE PROBLEM LIST CHEMA Assessment: Pt has been using BiPap at 22/16, but mild-mod Abdominal discomfort and gas have continued. She hasmild excoriation over the bridge of her nose from using an extra-small FFM, without the chinstrap, though her AHI is the best we've seen yet- no other changes warranted today. Pt will RTC in 1 yr/PRN. ICSD diagnosis (code): 327.23 Provisional: Final: Obstructive sleep apnea Recommendations: 1. Maintain BiPap at _22/16_ cm H2O with/without ramp, and heated humidifier 2. Reviewed driving safety; pt is encouraged to taffy puller and nap if feeling unsafe behind the wheel at any time. 3. RTC 1 yr/PRN. documented in this encounter Plan of Treatment Upcoming Encounters Date Type Department Care Team (Late st Contact Info) Description 02/06/2025 2:40 PM EDT Office Visit Cardiology at [address] [place] [phone] Rigoberto Diaz MD [facility] [place] [address] Scheduled Procedures Name Priority Associated Diagnoses Date/Ti me EGD, UPPER GI ENDOSCOPY (WRV U 2.09) Incontinence of feces, unspecified fecal incontinence type Dysphagia, unspecified type COLONOSCOPY, DIAGNOSTIC (WRV U 3.26) Incontinence of feces, unspecified fecal incontinence type Dysphagia, unspecified type documented as of this encounter Visit Diagnoses Diagnosis CHEMA on CPAP- Primary Obstructive sleep apnea (adult) (pediatric) documented in this encounter Care Teams Paintings Conservator Relationship Specialty Start Date End Date Andres Hylton MD [address] [place] [address] PCP - General 10/19/10 10/18/12 documented as of this encounter
[2024-06-14] MEDS: Methacholine 100 MG VIAL IH (14:42)
[2024-06-14] MEDS: Albuterol HFA 18 GM 200 PUFF INH IH (14:43)
[2024-06-14] MEDS: Inhaler, Assist Device 1 EACH MC (14:43)
--- NOTE | 2024-06-18 15:25 | W.PFT ---
Date of service: 06/14/24 Time of Service: 13:03 Pulmonary Function Test Result Requesting Provider Vanita Churchill Indications: Worsening dyspnea on exertion Interpretation Spirometry: Normal Lung Volumes: Normal Diffusion Capacity: Abnormal Impression Pulmonary function test Normal FEV1/FVC 72%. Normal FEV1 and FVC. Lung volumes are normal with no air trapping. Moderate decrease in diffusion 59%. Flow-volume curve suggests obstruction. Methacholine challenge Baseline FEV1 1.83 L. Patient demonstrated 28% decrease in FEV1 after receiving 0.5 mg/mL of methacholine. Impression Postive study Clinical Correlation therefore is recommended.
== END 2024-06-14 01:40 | disposition home or self-care (01) ==
LOC: RT 01:40
PROVIDERS: PCP Nurse Practitioner Family; Visit Provider Nurse Practitioner Family
DX: J44.9 Chronic obstructive pulmonary disease, unspecified (principal); R06.02 Shortness of breath
CPT/HCPCS: 00123; 94060; 94070; 94726; 94729; 94010; J7674

== ENCOUNTER 2024-08-12 07:27 | Emergency (ER) | payer OTHER, SELFPAY ==
[2024-08-12] VITALS (10 sets, daily range): BP systolic 183–221; BP diastolic 71–95; PULSE 79–84; RESP 13–21; TEMP 36.9; O2SAT 92–97
--- NOTE | 2024-08-12 07:29 | ED.GENADUL_ITS ---
Discharge Plan Discharge Details Primary Care Provider: Vanita Churchill ED Provider: [facility] Home Meds and New Rx's Prescriptions: No Action bupropion HCl [Wellbutrin SR] 150 mg Tablet Sustained-Release 12 Hr 150 mg PO QAM citalopram [Celexa] 40 mg Tablet 20 mg PO DAILY ziprasidone HCl [Geodon] 20 mg Capsule 20 mg PO BID hydrocortisone 1 % Cream 1 applic TOPICAL BID PRN diphenhydramine HCl [Benadryl] 25 mg Capsule 50 mg PO HS ferrous sulfate [iron] 325 mg (65 mg iron) Tablet 28 mg PO DAILY (DME) nebulizers Misc MISCELLANEOUS nystatin 100,000 unit/gram Powder 1 applic TOPICAL TID rosuvastatin 20 mg Tablet 20 mg PO HS Zyrtec 10 mg Capsule 10 mg PO DAILY loperamide [Imodium A-D] 2 mg capsule 2 mg PO Q6H PRN albuterol sulfate 1.25 mg/3 mL solution for nebulization 1.25 mg inhalation QID PRN (Reason: shortness of breath or wheezing) Qty: 90 6RF benzonatate 100 mg capsule 100 mg PO TID PRN (Reason: cough) Qty: 14 0RF albuterol sulfate 90 mcg/actuation HFA aerosol inhaler 2 puff INHALATION Q4H PRN (Reason: shortness of breath or wheezing) Qty: 8.5 5RF fluticasone propion-salmeterol [Advair Diskus] 250-50 mcg/dose blister with device 1 inh inhalation BID Qty: 60 5RF levothyroxine 50 mcg tablet 50 mcg PO DAILY Qty: 90 3RF ezetimibe [Zetia] 10 mg tablet 10 mg PO HS Qty: 90 3RF amlodipine 10 mg tablet 10 mg PO DAILY Qty: 90 3RF multivitamin [Daily Multi-Vitamin] 1 EACH tablet 1 tab PO DAILY aspirin 325 MG tablet 325 mg PO DAILY calcium carbonate-vitamin D3 1 EACH tablet 2 tab PO DAILY carboxymethylcellulose sodium [Refresh Tears] 30 ML drops 2 drp OU BID nystatin 15 GM cream 1 ea Topical TID cholecalciferol (vitamin D3) [Vitamin D3] 400 UNIT tablet 2,000 unit PO DAILY folic acid 0.8 MG tablet 0.8 mg PO DAILY Fortifeye 1 tab PO DAILY losartan 25 mg tablet 25 mg PO BID Patient Comments: TAKE ONE TABLET BY Morning and night guaifenesin [Mucinex] 600 mg Tablet Extended Release 12hr 600 mg PO Q12H PRN acetaminophen 325 mg tablet 650 mg PO BID metoprolol succinate 25 mg tablet extended release 24 hr 25 mg PO DAILY Qty: 7 0RF HPI General Date/Time Provider Initiated Documentation: 08/12/24 07:28 . HPI Narrative: MDM Chronic conditions affecting the care of the patient: [] History obtained from an outside historian: [] External record review: [] [Diagnostic interpretations performed by me: Per my independent interpretation chest x-ray shows: Per my independent interpretation EKG shows: ]Medications: [] Social determinants of health affecting disposition: [] Management discussed with: [] Treatment/interventions considered: [] Response to therapies provided: [] HPI [ ] Exam General: Well-appearing in no acute distress speaking in complete sentences. Head: Normocephalic, atraumatic. Eye:[Pupils equal, round reactive to light.] Extraocular eye movements intact. No conjunctival injection. No scleral icterus. Ear, nose, mouth, throat: Grossly normal inspection. Normal voice, handling secretions normally. Neck: Trachea midline. Cardiovascular: Well-perfused distal extremities. Respiratory: Nonlabored respiration. Gastrointestinal: Nondistended abdomen. Musculoskeletal: No edema. Moving all 4 extremities spontaneously. Skin: Normal for age and race, grossly normal temperature and turgor. No acute rash. Neurologic: Alert and appropriate, no apparent acute deficits. Psychiatric: Mood and manner are appropriate. Grooming and personal hygiene are appropriate. Related Data Home Medications ?Medication ?Instructions ?Recorded ?Confirmed aspirin 325 mg tablet 325 mg PO DAILY 03/21/14 07/03/24 calcium carbonate 600 mg-vitamin 2 tab PO DAILY 03/21/14 07/03/24 D3 5 mcg (200 unit) tablet carboxymethylcellulose sodium 0.5 2 drp OU BID 03/21/14 07/03/24 % eye drops (Refresh Tears) cholecalciferol (vitamin D3) 10 2,000 unit PO DAILY 03/21/14 07/03/24 mcg (400 unit) tablet (Vitamin D3) folic acid 800 mcg tablet 0.8 mg PO DAILY 03/21/14 07/03/24 multivitamin (Daily Multi-Vitamin 1 tab PO DAILY 03/21/14 07/03/24 tablet) nystatin 100,000 unit/gram topical 1 ea topical TID 03/21/14 07/03/24 cream bupropion HCl 150 mg tablet,12 hr 150 mg PO QAM 05/20/20 07/03/24 sustained-release (Wellbutrin SR) cetirizine 10 mg capsule (Zyrtec) 10 mg PO DAILY 05/20/20 07/03/24 citalopram 40 mg tablet (Celexa) 20 mg PO DAILY 05/20/20 07/03/24 diphenhydramine HCl 25 mg capsule 50 mg PO HS 05/20/20 07/03/24 (Benadryl) ferrous sulfate 325 mg (65 mg 28 mg PO DAILY 05/20/20 07/03/24 iron) tablet (iron) hydrocortisone 1 % topical cream 1 applic topical BID PRN 05/20/20 07/03/24 nebulizers 05/20/20 07/03/24 nystatin 100,000 unit/gram topical 1 applic topical TID 05/20/20 07/03/24 powder rosuvastatin 20 mg tablet 20 mg PO HS 05/20/20 07/03/24 ziprasidone HCl 20 mg capsule 20 mg PO BID 05/20/20 07/03/24 (Geodon) guaifenesin 600 mg tablet, 600 mg PO Q12H PRN 09/11/20 07/03/24 extended release 12 hr (Mucinex) Fortifeye 1 tab PO DAILY 09/21/20 07/03/24 acetaminophen 325 mg tablet 650 mg PO BID 02/16/22 07/03/24 benzonatate 100 mg capsule 100 mg PO TID PRN cough #14 caps 01/06/23 07/03/24 metoprolol succinate 25 mg 25 mg PO DAILY #7 tabs 06/30/23 07/03/24 tablet,extended release 24 hr losartan 25 mg tablet 25 mg PO BID 05/22/24 07/03/24 albuterol sulfate 1.25 mg/3 mL 1.25 mg (3 mL) inhalation QID PRN 06/19/24 07/03/24 solution for nebulization shortness of breath or wheezing #90 mL loperamide 2 mg capsule (Imodium 2 mg PO Q6H PRN 06/19/24 07/03/24 A-D) albuterol sulfate 90 mcg/actuation 2 puff inhalation Q4H PRN 06/24/24 07/03/24 aerosol inhaler shortness of breath or wheezing #8.5 grams fluticasone 250 mcg-salmeterol 50 1 inh inhalation BID #60 ea 06/24/24 07/03/24 mcg/dose blistr powdr for inhalation (Advair Diskus) ezetimibe 10 mg tablet (Zetia) 10 mg PO HS #90 tabs 06/26/24 07/03/24 levothyroxine 50 mcg tablet 50 mcg PO DAILY #90 tabs 06/26/24 07/03/24 amlodipine 10 mg tablet 10 mg PO DAILY #90 tabs 07/10/24 Previous Rx's ?Medication ?Instructions ?Recorded benzonatate 100 mg capsule 100 mg PO TID PRN cough #14 caps 01/06/23 metoprolol succinate 25 mg 25 mg PO DAILY #7 tabs 06/30/23 tablet,extended release 24 hr albuterol sulfate 1.25 mg/3 mL 1.25 mg (3 mL) inhalation QID PRN 06/19/24 solution for nebulization shortness of breath or wheezing #90 mL albuterol sulfate 90 mcg/actuation 2 puff inhalation Q4H PRN 06/24/24 aerosol inhaler shortness of breath or wheezing #8.5 grams fluticasone 250 mcg-salmeterol 50 1 inh inhalation BID #60 ea 06/24/24 mcg/dose blistr powdr for inhalation (Advair Diskus) ezetimibe 10 mg tablet (Zetia) 10 mg PO HS #90 tabs 06/26/24 levothyroxine 50 mcg tablet 50 mcg PO DAILY #90 tabs 06/26/24 amlodipine 10 mg tablet 10 mg PO DAILY #90 tabs 07/10/24 Allergies Allergy/AdvReac Type Severity Reaction Status Date / Time cocoa butter (From Allergy Intermediate Bleeding Verified 07/03/24 09:45 Preparation H) glycerin (From Preparation H) Allergy Intermediate Bleeding Verified 07/03/24 09:45 latex Allergy Intermediate Skin Rash Verified 07/03/24 09:45 mineral oil* (From Allergy Intermediate Bleeding Verified 07/03/24 09:45 Preparation H) petrolatum,white (From Allergy Intermediate Bleeding Verified 07/03/24 09:45 Preparation H) phenylephrine (From Allergy Intermediate Bleeding Verified 07/03/24 09:45 Preparation H) shark liver oil (From Allergy Intermediate Bleeding Verified 07/03/24 09:45 Preparation H) bismuth subsalicylate (From Allergy Mild Irritation/ Verified 07/03/24 09:45 Kaopectate (bismuth soreness subsalicy)) lisinopril AdvReac Intermediate Cough Verified 07/03/24 09:45 General BLAIR: 3 Medical Decision Making Quality:SDOH Health Related Social Needs: No Data to Display PFSH All Active Problems (Updated 08/02/24 @ 00:06 by MO MIDDLETON) Interstitial lung disease (Acute) Bronchiectasis (Acute) Asthma (Chronic) Abnormal CT scan, chest (Acute) Diverticulosis (Acute 12/06/12) Presence of prosthetic heart valve (Acute) Atherosclerosis (Acute) Pain in right shoulder (Acute) Pain, joint, shoulder, left (Acute) Dysphagia (Acute) Paresthesia (Acute) Disorder of sacrum (Acute) Pain in thoracic spine (Acute) Joint pain (Acute) Disorder of kidney and ureter (Acute) Chronic obstructive lung disease (Chronic) Peripheral vascular disease (Chronic) Carotid artery stenosis (Acute) Aortic stenosis (Chronic) Pulmonary hypertension (Acute) Essential (primary) hypertension (Acute) Sensorineural hearing loss (Acute) Hearing loss (Acute) Benign paroxysmal positional vertigo (Acute) Migraine (Chronic) Giant cell arteritis (Acute) Imbalance (Acute) Sensorineural hearing loss of both ears (Acute) Sacroiliac joint dysfunction of left side (Acute) Trochanteric bursitis, left hip (Acute) Asymmetrical sensorineural hearing loss (Acute) Medical History (Updated 08/02/24 @ 00:06 by MO MIDDLETON) History of transcatheter aortic valve replacement (TAVR) 03/07/23 Malaise and fatigue History of tobacco use Obesity Depression Cervicalgia Vertigo benign, postural Macular degeneration Polyarthralgia Arthritis, rheumatoid GERD (gastroesophageal reflux disease) Emphysema of lung Heart murmur Back pain CHEMA (obstructive sleep apnea) Hypothyroidism Hemorrhoids Cervical radiculopathy History of paroxysmal supraventricular tachycardia Claudication IBS (irritable bowel syndrome) Elevated creatine kinase level Hematuria Anemia Bilateral carotid artery stenosis Trochanteric bursitis of left hip Right bundle branch block Hypertension Hyperlipidemia Cough Surgical History (Updated 06/06/24 @ 16:25 by Lissette Hutton RN) History of colonoscopy (12/06/12) History of temporal artery biopsy (~06/2023) Status post insertion of iliac artery stent Family History (Updated 05/15/24 @ 13:47 by Cyndie Garrett) Mother Asthma Anxiety Depression Hypertension Maternal Aunt Cancer Father Heart disease Maternal Grandmother Diabetes Maternal Grandfather Diabetes Paternal Grandmother Diabetes Paternal Grandfather Diabetes Social History (Updated 05/15/24 @ 13:43 by Cyndie Garrett) Smoking/Tobacco Use Status: Former Tobacco Use Quit Date: 11/27/02 Tobacco: How many years used: 40 Smoking risk assessment performed?: Yes Alcohol Intake: current Alcohol Intake frequency: holidays/special occasions only Drug use: Never Substance use type: does not use Adopted: No Caregiver/Support person: No Foster care: Yes Household members: children Housing: house Number of Children: 3 number of grandchildren: 5 Communication Needs: Hard of Hearing Education Level: college Do you need help understanding health information?: Rarely 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 Pets and animals: Yes (4 Dogs, 2 Cats and 2 Birds) Pets and animals: cat(s), dog(s) and bird(s) Sexually active: No Do you think of yourself as: straight/heterosexual Current gender identity: female What is your relationship status?: How often do you talk on the phone with friends or family?: twice per week How often do you get together with friends or relatives?: once per week Do you belong to any clubs or organized social groups?: yes Panel score (0-1 are the most socially isolated patients): 2 What type of physical activity do you participate in: independent ambulation and bicycling Sammi/Confucianist: Holiness Special sammi needs: Yes (Last Rights) Seatbelt use: always Helmet use: No Drive intox or ride w/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
--- NOTE | 2024-08-12 07:30 | RT.EKG_ITS ---
APPROVED REPORT Exam: Resting ECG Reason for Exam: Hypertension Patient Location: E HR:81 bpm ECG Measurements Heart Rate 81 AXIS NH 162 P 53 QRSd 138 QRS 6 QT 405 T 22 QTc 471 Conclusion Sinus rhythm...normal P axis, V-rate 60- 99 Right bundle branch block...QRSd>120, terminal axis(90,270) Normal sinus rhythm at a rate of 81. Right bundle branch block pattern. No ST segment abnormalities . T wave inversion in lead III. Compared to prior dated earlier this year no acute injury pattern.
--- OUTSIDE RECORDS SUMMARY | 2024-08-12 07:33 | XMS_ITS | Encounter Summary ---
Author Organization [facility] Address [address] [place] [address] Care Team Providers Care Delivery Stock Clerk Name Role Phone Unknown, Provider Primary Care Provider Encounter Details Date Type Department Care Team (Late st Contact Info) Description 07/19/2023 Lab Requisition [facility] Pathology & Laboratory Medicine - [facility] [address] [place] [address] Outr Resulting Lab, Provider Social History Tobacco Use Types Packs/Day Years Used Date Smoking Tobacco: Never Assessed Sex and Gender Information Value Date Recorded Sex Assigned at Not on file Gender Identity Not on file Sexual Orientation Not on file documented as of this encounter Plan of Treatment Not on file documented as of this encounter Procedures Procedure Name Priority Date/Time Associated Diagnosis Comments HIGH SENSITIVITY C-REACTIVE PROTEIN (CARDIOVASCULAR DISEASE) Routine 07/19/2023 10:16 EDT documented in this encounter Results * HIGH SENSITIVITY C-REACTIVE PROTEIN (CARDIOVASCULAR DISEASE) (07/19/2023 10:16 EDT) High Sensitivity CRP 0.86 See Note mg/L 07/19/2023 21:57 EDT [facility] Comment: Reference Range: ??Low Risk: ? <1.0 mg/L ??Average Risk: ?? 1.0 - 3.0 mg/L ??High Risk: ?>3.0 mg/L ??Indeterminate*: >10.0 mg/L ??*May be an indication of another source of inflammation or infection Blood VENOUS BLOOD / Unknown 07/19/2023 10:16 EDT 07/19/2023 21:35 EDT Provider Outr Resulting Lab CHEMISTRY & BLOOD GAS ORDERABLES [facility] [address] [place] [address] documented in this encounter Visit Diagnoses Not on filedocumented in this encounter Care Teams Delivery Stock Clerk Relationship Specialty Start Date End Date Unknown, Provider, PCP - General 03/26/12 documented as of this encounter
--- OUTSIDE RECORDS SUMMARY | 2024-08-12 07:33 | XMS_ITS | Encounter Summary ---
Author Organization [facility] Address [address] [place] [address] Care Team Providers Care Kettle Coordinator Name Role Phone Unknown, Provider Primary Care Provider Encounter Details Date Type Department Care Team (Late st Contact Info) Description 10/27/2020 Lab Requisition [facility] Pathology & Laboratory Medicine - [address] [address] Outr Resulting Lab, Provider Social History Tobacco [...] Procedure Name Priority Date/Time Associated Diagnosis Comments GIARDIA AND CRYPTOSPORIDIUM ANTIGENS Routine 10/26/2020 17:55 EST OVA/PARASITE EXAM Routine 10/26/2020 17: 55 EST documented in this encounter Results * (ABNORMAL) GIARDIA AND CRYPTOSPORIDIUM ANTIGENS (10/26/2020 17:55 EST) Giardia and Cryptosporidium Cryptosporidium Antigen Neg and Giardia Antigen Pos(A) Cryptosporidium Antigen Neg and Giardia Antigen Neg 0 12:03 EST [facility] Feces SPECIMEN FROM RECTUM / Unknown 10/26/2020 17:55 EST 10/27/2020 21:45 EST Provider Outr Resulting Lab MICROBIOLOGY - GENERAL ORDERABLES [facility] [address] [place] [address] * OVA/PARASITE EXAM (10/26/2020 17:55 EST) Parasite No ova and parasites seen. 10/28/2020 12:03 EST [facility] Feces SPECIMEN FROM RECTUM / Unknown 10/26/2020 17:55 EST 10/27/2020 21:45 EST Narrative [facility] - 10/28/2020 12:03 EST (If Cryptosporidium, Cyclospora, or Microsporidium are suspected, specific tests must be requested.) Single negative specimen does not rule out the possibility of a parasitic infection. Provider Outr Resulting Lab MICROBIOLOGY - GENERAL ORDERABLES [facility] [address] [place] [address] documented in this encounter Visit Diagnoses Not on filedocumented in this encounter Care Teams Kettle Coordinator Relationship Specialty Start Date End Date Unknown, Provider, PCP - General 03/26/12 documented as of this encounter
--- OUTSIDE RECORDS SUMMARY | 2024-08-12 07:33 | XMS_ITS | Encounter Summary ---
Author Organization [facility] Address [address] [place] [address] Care Team Providers Care Equity Structurer Name Role Phone Unknown, Provider Primary Care Provider Encounter Details Date Type Department Care Team (Late st Contact Info) Description 07/24/2023 Lab Requisition [facility] Pathology & Laboratory Medicine - [facility] [address] [place] [address] Micky Miller MD [address] [place] [address], [address] [place] [address] Other giant cell arteritis (HCC-CMS) Social History Tobacco Use Types Packs/Day Years Used Date Smoking Tobacco: Never Assessed Sex and Gender Information Value Date Recorded Sex Assigned at Not on file Gender Identity Not on file Sexual Orientation Not on file documented as of this encounter Plan of Treatment Not on file documented as of this encounter Procedures Procedure Name Priority Date/Time Associated Diagnosis Comments SURGICAL PATHOLOGY Today 07/24/2023 12 :11 EDT Other giant cell arteritis (HCC-CMS) documented in this encounter Results * SURGICAL PATHOLOGY (07/24/2023 12:11 EDT) Note to Patient The following pathology results have been interpreted by your pathologist and may be available to you before your health provider has had the opportunity to review them. Please allow time for your provider to receive these results and explore management options, if applicable. 07/27/2023 17:43 EDT [facility] Final Diagnosis A. TEMPORAL ARTERY, RIGHT, BIOPSY: - Artery with intimal fibrosis and dystrophic calcification. - Negative for active arteritis. 07/27/2023 17:43 EDT [facility] Attestation By the signature below, the attending physician certifies that they have 1) personally conducted a gross and/or microscopic examination of the described specimen(s), and/or personally interpreted the results of laboratory testing of the described specimen(s), and 2) personally rendered or confirmed the above diagnosis. 07/27/2023 17:43 [facility] at 1743 Clinical History Giant cell arteritis 07/27/2023 17:43 T [facility] Gross Description A. Received in formalin labelled with proper patient identification (initials S, T) and right temporal artery Bx is a evangelista-purple segment of vessel (0.9 cm in length x 0.2 cm in diameter). Bisected and entirely submitted in A1-A2 for histology to further section. Jessica Good 07/25/2023 8:54 07/27/2023 17:43 EDT [facility] Performing Lab [facility] 07/27/2023 17:43 T [facility] Scanned Images 07/27/2023 17:43 [facility] Tissue ARTERIAL STRUCTURE / Unknown 07/24/2023 12:11 EDT 07/24/2023 18:24 EDT Micky Miller MD PATHOLOGY ORDERABLES [facility] [address] [place] [address] documented in this encounter Visit Diagnoses Diagnosis Other giant cell arteritis (HCC-CMS) documented in this encounter Care Teams Equity Structurer Relationship Specialty Start Date End Date Unknown, Provider, PCP - General 03/26/12 documented as of this encounter
--- OUTSIDE RECORDS SUMMARY | 2024-08-12 07:33 | XMS_ITS | Encounter Summary ---
Author Organization [facility] Address [address] [place] [address] Care Team Providers Care Medical Office Scheduler Name Role Phone Unknown, Provider Primary Care Provider Encounter Details Date Type Department Care Team (Late st Contact Info) Description 04/02/2024 Lab Requisition [facility] Pathology & Laboratory Medicine - [facility] [address] [place] [address] Juan Ramon Sanchez MD [address] [place] [phone] Other specified postprocedural states; Full incontinence of feces Social History Tobacco Use Types Packs/Day Years Used Date Smoking Tobacco: Never Assessed Sex and Gender Information Value Date Recorded Sex Assigned at Not on file Gender Identity Not on file Sexual Orientation Not on file documented as of this encounter Plan of Treatment Not on file documented as of this encounter Procedures Procedure Name Priority Date/Time Associated Diagnosis Comments SURGICAL PATHOLOGY Today 04/01/2024 14 :53 EDT Other specified postprocedural states Full incontinence of feces documented in this encounter Results * SURGICAL PATHOLOGY (04/01/2024 14:53 EDT) Note to Patient The following pathology results have been interpreted by your pathologist and may be available to you before your health provider has had the opportunity to review them. Please allow time for your provider to receive these results and explore management options, if applicable. 04/03/2024 15:54 EDT [facility] Final Diagnosis A. DUODENUM, BIOPSY: - Duodenal mucosa with no significant pathologic change. - No evident active inflammation or significant increase in intraepithelial lymphocytes; villous architecture intact. B. DUODENAL BULB, BIOPSY: - Duodenal mucosa with chronic inflammation and Maggie gland hyperplasia, consistent with peptic etiology. - No evident active inflammation or significant increase in intraepithelial lymphocytes; villous architecture intact. C. DISTAL ESOPHAGUS, BIOPSY: - Fragments of mildly reactive squamous mucosa with sparse lymphocytic infiltrate. - No histologic evidence of eosinophilic esophagitis. D. MID ESOPHAGUS, BIOPSY: - Fragments of mildly reactive squamous mucosa with sparse lymphocytic infiltrate. - No histologic evidence of eosinophilic esophagitis. E. ESOPHAGUS, POLYP, BIOPSY: - Fragments of reactive squamous mucosa with mild basal zone hyperplasia and sparse lymphocytic infiltrate. - No histologic evidence of eosinophilic esophagitis. - Negative for dysplasia. F. COLON, RANDOM BIOPSIES: - Colorectal mucosal fragments with no specific pathologic change. - No histologic evidence of microscopic colitis. 04/03/2024 15:54 [facility] Diagnosis Comment The technical component of the specimen processing was performed at the [facility] Pathology Department, [address] [place] [address] (CLIA [id number]). The professional component of the specimen evaluation (slide review and issuing of the final diagnosis) was performed at [facility], [address] [place] [address] (CLIA License Number [id number]). 04/03/2024 15:54 [facility] Attestation By the signature below, the attending physician certifies that they have 1) personally conducted a gross and/or microscopic examination of the described specimen(s), and/or personally interpreted the results of laboratory testing of the described specimen(s), and 2) personally rendered or confirmed the above diagnosis. 04/03/2024 15:54 [facility] at 1554 Clinical History EGD, screening colonoscopy, hx dysphagia, GERD, IBS, globus sensation, diverticulosis; clinical diagnosis code: R15.9, Z98.890 04/03/2024 15:54 [facility] Gross Description A. Received in formalin labelled with proper patient identification (initials S, T) and A. Duodenum bx are 2 evangelista tissues (0.7 x 0.1 x 0.1 cm and 0.6 x 0.1 by less than 0.1 cm). Entirely submitted in A1. B. Received in formalin labelled with proper patient identification (initials S, T) and B. Duodenal bulb bx is a single brown tissue (0.2 x 0.1 x 0.1 cm). Submitted intact in B1. C. Received in formalin labelled with proper patient identification (initials S, T) and C. Distal esophagus bx are 2 evangelista-white to transparent evangelista-white wispy tissues (0.3 x 0.1 x 0.1 cm and 0.2 x 0.1 by less than 0.1 cm). Entirely submitted in C1. Please note the smaller tissue may not survive processing. D. Received in formalin labelled with proper patient identification (initials S, T) and D. Mid esophagus bx is a single transparent evangelista-white focally brown wispy tissue (0.4 x 0.1 by less than 0.1 cm). Submitted intact in D1. E. Received in formalin labelled with proper patient identification (initials S, T) and E. Esophageal polyp bx are 3 evangelista-white to transparent evangelista-white wispy tissues (0.3 x 0.2 x 0.1 cm to less than 0.1 by less than 0.1 by less than 0.1 cm). Entirely submitted in E1. Please note the smaller tissues may not survive processing. F. Received in formalin labelled with proper patient identification (initials S, T) and F. Random colon biopsy are 5 evangelista wispy tissues (0.6 by less than 0.1 by less than 0.1 cm to 0.1 by less than 0.1 by less than 0.1 cm). Entirely submitted in F1. Please note the smaller tissues may not survive processing. Jessica Good 04/02/2024 10:45 04/03/2024 15:54 EDT [facility] Performing Lab [facility] 15:54 EDT [facility] Scanned Images 04/03/2024 15:54 EDT [facility] Tissue COLON STRUCTURE / Unknown 04/01/2024 14:53 EDT 04/02/2024 7:07 EDT Tissue specimen (specimen) STRUCTURE OF SMALL INTESTINE / Unknown 04/01/2024 14:53 EDT 04/02/2024 7:07 EDT Tissue specimen (specimen) ESOPHAGEAL STRUCTURE / Unknown 04/01/2024 14:53 EDT 04/02/2024 7:07 EDT Tissue specimen (specimen) ESOPHAGEAL STRUCTURE / Unknown 04/01/2024 14:53 EDT 04/02/2024 7:07 EDT Tissue specimen (specimen) ESOPHAGEAL STRUCTURE / Unknown 04/01/2024 14:53 EDT 04/02/2024 7:07 EDT Tissue specimen (specimen) COLON STRUCTURE / Unknown 04/01/2024 14:53 EDT 04/02/2024 7:07 EDT Juan Ramon Sanchez MD PATHOLOGY ORD ERABLES [facility] [address] [place] [phone] documented in this encounter Visit Diagnoses Diagnosis Other specified postprocedural states Full incontinence of feces documented in this encounter Care Teams Medical Office Scheduler Relationship Specialty Start Date End Date Unknown, Provider, PCP - General 03/26/12 documented as of this encounter
--- OUTSIDE RECORDS SUMMARY | 2024-08-12 07:33 | XMS_ITS | Clinical Summary ---
Author Organization [facility] Address [address] [place] [address] Care Team Providers Care Dog Beautician Name Role Phone Unknown, Provider Primary Care Provider Social History Tobacco Use Types Packs/Day Years Used Date Smoking Tobacco: Never Assessed Sex and Gender Information Value Date Recorded Sex Assigned at Not on file Gender Identity Not on file Sexual Orientation Not on file Plan of Treatment Health Maintenance Due Date Last Done Comments Hepatitis C Screen 1950 RSV Immunization ( o r 60+ Years) (1 - 1-dose 60+ series) 2008 Fall Risk Screening 2013 COVID-19 Vaccine ( season) 2023 Lindsey Deleon Personal/Family Self [phone] (Work) [facility] [employer] [place] [address] Lindsey Deleon Personal/Family Self [phone] (Work) [facility] [place] [address] Lindsey Deleon Personal/Family Self [phone] (Work) [address] [place] [address] Deleon, Lindsey Personal/Family Self [phone] (Work) [address] [place] [address] Deleon, Lindsey Personal/Family Self [phone] (Work) [address] [place] [address] Deleon, Lindsey Personal/Family Self [phone] (Work) [facility] [place] [address] Pancho, Lindsey Personal/Family Self [phone] (Work) [address] [place] [address] Care Teams Dog Beautician Relationship Specialty Start Date End Date Unknown, Provider, PCP - General 03/26/12
--- OUTSIDE RECORDS SUMMARY | 2024-08-12 07:33 | XMS_ITS | Referral Summary ---
Author Organization [facility] Address [address] [place] [address] Care Team Providers Care Corporate Traffic Manager Name Role Phone Unknown, Provider Primary Care Provider Social History Tobacco Use Types Packs/Day Years Used Date Smoking Tobacco: Never Assessed Sex and Gender Information Value Date Recorded Sex Assigned at Not on file Gender Identity Not on file Sexual Orientation Not on file Plan of Treatment Not on file Lindsey Deleon Personal/Family Self [phone] (Work) [facility] [employer] [place] [address] Lindsey Deleon Personal/Family Self [phone] (Work) [facility] [place] [address] Lindsey Deleon Personal/Family Self [phone] (Work) [facility] [place] [address] Lindsey Deleon Personal/Family Self [phone] (Work) [address] [place] [address] Lindsey Deleon Personal/Family Self [phone] (Work) [address] [place] [address] Pancho, Lindsey Personal/Family Self [phone] (Work) [address] [place] [address] Lindsey Deleon Personal/Family Self [phone] (Work) [address] [place] [address] Care Teams Corporate Traffic Manager Relationship Specialty Start Date End Date Unknown, Provider, PCP - General 03/26/12
--- OUTSIDE RECORDS SUMMARY | 2024-08-12 07:33 | XMS_ITS | Encounter Summary ---
Author Organization [facility] Address [address] [place] [address] Care Team Providers Care Real Estate Subagent Name Role Phone Unknown, Provider Primary Care Provider Encounter Details Date Type Department Care Team (Late st Contact Info) Description 12/16/2021 Lab Re[address] [facility] Pathology & Laboratory Medicine - [facility] [address] [place] [address] Outr Resulting Lab, Provider Social History Tobacco [...] Procedure Name Priority Date/Time Associated Diagnosis Comments ZZCOVID-19 TEST [facility] LAB PCR Today 12/15/2021 11:43 EST COVID-19 TESTING Routine 12/15/2021 11:4 3 EST documented in this encounter Results * COVID-19 TEST [facility] PCR (12/15/2021 11:43 EST) Swab 12/15/2021 11:4 3 EST 12/16/2021 17:50 EST Provider Outr Resulting Lab MICROBIOLOGY - GENERAL ORDERABLES [facility] [address] [place] [address] * COVID-19 TESTING (12/15/2021 11:43 EST) COVID-19 rt-PCR Result Negative Negative 12/17/2021 11:11 EST [facility] Comment: This test has not been FDA cleared or approved. This test has been authorized by FDA under an EUA for use by authorized laboratories. This test has been authorized only for detection of nucleic acid from 2019-nCoV, not for any other viruses or pathogens. This test is only authorized for the duration of the declaration that circumstances exist justifying the authorization of emergency use of in vitro diagnostic tests for detection and/or diagnosis of 2019-nCoV under section 564(b)(1) of Act, 21 U.S.C ?? 360bbb-3(b) (1), unless the authorization is terminated or revoked sooner. Negative results do not preclude 2019-nCoV infection and should not be used as the sole basis for treatment or other patient management decisions. Negative results must be combined with clinical observations, patient history, and epidemiological information. Testing was performed using the duc SARS-CoV-2 assay ([employer] on the Duc 6800 System Performing Lab Duc 6800 [facility] 12/17/2021 11:11 EST [facility] Swab 12/15/2021 11:4 3 EST 12/16/2021 17:50 EST Provider Outr Resulting Lab MICROBIOLOGY - GENERAL ORDERABLES [facility] [address] [place] [address] documented in this encounter Visit Diagnoses Not on filedocumented in this encounter Care Teams Real Estate Subagent Relationship Specialty Start Date End Date Unknown, Provider, PCP - General 03/26/12 documented as of this encounter
--- OUTSIDE RECORDS SUMMARY | 2024-08-12 07:33 | XMS_ITS | Encounter Summary ---
Author Organization [facility] Address [address] [place] [address] Care Team Providers Care Medical Transcriber Name Role Phone Unknown, Provider Primary Care Provider Encounter Details Date Type Department Care Team (Late st Contact Info) Description 10/27/2020 Lab Requisition [facility] Pathology & Laboratory Medicine - [facility] [address] [place] [address] Outr Resulting Lab, Provider Social History Tobacco [...] Procedure Name Priority Date/Time Associated Diagnosis Comments FECAL BACTERIAL PATHOGENS BY PCR Routine 10/26/2020 17:55 EST documented in this encounter Results * FECAL BACTERIAL PATHOGENS BY PCR (10/26/2020 17:55 EST) Salmonella PCR Negative Negative 10/28/2020 11:38 EST [facility] Shigella/Enteroin vasive E. coli Negative Negative 10/28/2020 11:38 EST [facility] HN LAB CAMPYLOBACTER PCR Negative Negative 10/28/2020 11:38 EST [facility] Shiga Toxin PCR Negative Negative 0 11:38 EST [facility] Feces SPECIMEN FROM RECTUM / Unknown 10/26/2020 17:55 EST 10/27/2020 21:45 EST Provider Outr Resulting Lab MICROBIOLOGY - GENERAL ORDERABLES [facility] [address] [place] [address] documented in this encounter Visit Diagnoses Not on filedocumented in this encounter Care Teams Medical Transcriber Relationship Specialty Start Date End Date Unknown, Provider, PCP - General 03/26/12 documented as of this encounter
--- OUTSIDE RECORDS SUMMARY | 2024-08-12 07:33 | XMS_ITS | Encounter Summary ---
Author Organization [facility] Address [address] [place] [address] Care Team Providers Care Platform Mill Supervisor Name Role Phone Unknown, Provider Primary Care Provider Encounter Details Date Type Department Care Team (Late st Contact Info) Description 09/10/2020 Lab Requisition [facility] Pathology & Laboratory Medicine - [facility] [address] [place] [address] Outr Resulting Lab, Provider Social History Tobacco [...] Procedure Name Priority Date/Time Associated Diagnosis Comments DO NOT ORDER STANDALONE - [facility] COVID TEST Today 09/09/2020 11:45 EDT COVID-19 TESTING Routine 09/09/2020 11:4 5 EDT documented in this encounter Results * DO NOT ORDER STANDALONE - [facility] COVID TEST (09/09/2020 11:45 EDT) COVID-19 rt-PCR Result NEGATIVE Negative 09/11/2020 16:27 EDT [facility] Comment: 2019-novel Coronavirus (2019-nCoV) not detected by the qRT-PCR assay. Consider testing for other respiratory viruses or re-collecting for 2019-nCoV testing. Note: Optimum timing for peak viral levels during infections caused by 2019-nCoV have not been determined. Collection of multiple specimens from the same patient may be necessary to detect the virus. Limitations Positive results are indicative of active infection with SARS-CoV-2 but do not rule out bacterial infection or co-infection with other viruses. The agent detected may not be the definite cause of disease. In addition, detection of viral RNA may not indicate the presence of infectious virus or that SARS-CoV-2 is the causative agent for clinical symptoms. Negative results do not preclude SARS-CoV-2 infection and should not be used as the sole basis for patient management decisions. Negative results must be combined with clinical observations, patient history, and epidemiological information. False negative results may also occur if amplification inhibitors are present in the specimen or if inadequate numbers of organisms are present in the specimen. Optimum specimen types and timing for peak viral levels during infections caused by SARS-CoV-2 have not been fully determined. Collection of multiple specimens (types and time points) from the same patient may be necessary to detect the virus. The test was validated for use with upper respiratory specimens obtained via nasopharyngeal or oropharyngeal swabs in VTM, UTM, M4, M5, M6, saline, and MTM media. The performance of this test has not been established for other specimens. Specimens collected using other FDA recommended Specimen Collection Materials listed in the FDA COVID-19 [employer] communication (February 20, 2020) are processed with the caveat that they were not all validated for use with this test and the result must be interpreted in this context. Furthermore, a false negative results may occur if a specimen is improperly collected, transported or handled. If the virus mutates in the RT-PCR target region, SARS-CoV-2 may not be detected or may be detected less predictably. Inhibitors or other types of interference may produce a false negative result. An interference study evaluating the effect of common cold medications was not performed. This test is not FDA-cleared but its performance characteristics were established by our CLIA-certified, CAP-accredited, high complexity laboratory in accordance with CLIA regulations, College of [place] [employer] (CAP) guidelines (Feb 13, 2020), and FDA guidance (Jan 25, 2020). This test is only for use under the Food and Drug Administration's Emergency Use Authorization. Swab ENTIRE NASOPHARYNX / Unknown 09/09/2020 11:45 EDT 09/10/2020 17:44 EDT Provider Outr Resulting Lab MICROBIOLOGY - GENERAL ORDERABLES [facility] [place] * COVID-19 TESTING (09/09/2020 11:45 EDT) COVID-19 rt-PCR Result NEGATIVE Negative 09/11/2020 17:43 EDT [facility] Comment: 2019-novel Coronavirus (2019-nCoV) not detected by the qRT-PCR assay. Consider testing for other respiratory viruses or re-collecting for 2019-nCoV testing. Note: Optimum timing for peak viral levels during infections caused by 2019-nCoV have not been determined. Collection of multiple specimens from the same patient may be necessary to detect the virus. Limitations Positive results are indicative of active infection with SARS-CoV-2 but do not rule out bacterial infection or co-infection with other viruses. The agent detected may not be the definite cause of disease. In addition, detection of viral RNA may not indicate the presence of infectious virus or that SARS-CoV-2 is the causative agent for clinical symptoms. Negative results do not preclude SARS-CoV-2 infection and should not be used as the sole basis for patient management decisions. Negative results must be combined with clinical observations, patient history, and epidemiological information. False negative results may also occur if amplification inhibitors are present in the specimen or if inadequate numbers of organisms are present in the specimen. Optimum specimen types and timing for peak viral levels during infections caused by SARS-CoV-2 have not been fully determined. Collection of multiple specimens (types and time points) from the same patient may be necessary to detect the virus. The test was validated for use with upper respiratory specimens obtained via nasopharyngeal or oropharyngeal swabs in VTM, UTM, M4, M5, M6, saline, and MTM media. The performance of this test has not been established for other specimens. Specimens collected using other FDA recommended Specimen Collection Materials listed in the FDA COVID-19 [employer] communication (February 20, 2020) are processed with the caveat that they were not all validated for use with this test and the result must be interpreted in this context. Furthermore, a false negative results may occur if a specimen is improperly collected, transported or handled. If the virus mutates in the RT-PCR target region, SARS-CoV-2 may not be detected or may be detected less predictably. Inhibitors or other types of interference may produce a false negative result. An interference study evaluating the effect of common cold medications was not performed. This test is not FDA-cleared but its performance characteristics were established by our CLIA-certified, CAP-accredited, high complexity laboratory in accordance with CLIA regulations, College of [place] [employer] (CAP) guidelines (Feb 13, 2020), and FDA guidance (Jan 25, 2020). This test is only for use under the Food and Drug Administration's Emergency Use Authorization. Performing Lab [facility] 09/11/2020 17:43 EDT [facility] Swab 09/09/2020 11:4 5 EDT 09/10/2020 17:44 EDT Provider Outr Resulting Lab MICROBIOLOGY - GENERAL ORDERABLES [facility] [address] [place], [place] [id number] [place] [address] LABORATORY [place], [place] documented in this encounter Visit Diagnoses Not on filedocumented in this encounter Care Teams Platform Mill Supervisor Relationship Specialty Start Date End Date Unknown, Provider, PCP - General 03/26/12 documented as of this encounter
--- OUTSIDE RECORDS SUMMARY | 2024-08-12 07:33 | XMS_ITS | Encounter Summary ---
Author Organization [facility] Address [address] [place] [address] Care Team Providers Care Doughnut Machine Operator Name Role Phone Unknown, Provider Primary Care Provider Encounter Details Date Type Department Care Team (Late st Contact Info) Description 06/24/2021 Lab Requisition [facility] Pathology & Laboratory Medicine - [facility] [address] [place] [address] Outr Resulting Lab, Provider Social History Tobacco [...] Priority Date/Time Associated Diagnosis Comments ZZCOVID-19 TEST [facility] PCR Today 06/24/2021 10:11 EDT COVID-19 TESTING Routine 06/24/2021 10:1 1 EDT documented in this encounter Results * COVID-19 TEST [facility] PCR (06/24/2021 10:11 EDT) Swab ENTIRE NASOPHARYNX / Unknown 06/24/2021 10:11 EDT 06/24/2021 21:02 EDT Provider Outr Resulting Lab MICROBIOLOGY - GENERAL ORDERABLES [facility] [address] [place] [address] * COVID-19 TESTING (06/24/2021 10:11 EDT) COVID-19 rt-PCR Result Negative Negative 06/25/2021 11:10 EDT [facility] Comment: This test [...] was performed using the duc SARS-CoV-2 assay ([employer] on the Duc 6800 System Performing Lab Duc 6800 [facility] 06/25/2021 11:10 EDT [facility] Swab 06/24/2021 10:1 1 EDT 06/24/2021 21:02 EDT Provider Outr Resulting Lab MICROBIOLOGY - GENERAL ORDERABLES [facility] [address] [place] [address] documented in this encounter Visit Diagnoses Not on filedocumented in this encounter Care Teams Doughnut Machine Operator Relationship Specialty Start Date End Date Unknown, Provider, PCP - General 03/26/12 documented as of this encounter
--- OUTSIDE RECORDS SUMMARY | 2024-08-12 07:34 | XMS_ITS | Encounter Summary ---
[place] [address] Care Team Providers Care Veneer Sander Name Role Phone Kerline Vanita Nelson APRN Primary Care Provider [phone] Encounter Details Date Type Department Care Team (Late st Contact Info) Description 01/16/2024 Orders Only Sleep Center at [facility] [address] [place] [address] Alley Johnson APRN [facility] [place] [address] CHEMA treated with BiPAP Social History Tobacco [...] 2:40 PM EDT Office Visit Cardiology at [address] [place] [address] Rigoberto Diaz MD [facility] [place] [address] Scheduled Procedures Name Priority Associated Diagnoses Date/Ti me EGD, UPPER GI ENDOSCOPY (WRV U 2.09) Incontinence of feces, unspecified fecal incontinence type Dysphagia, unspecified type COLONOSCOPY, DIAGNOSTIC (WRV U 3.26) Incontinence of feces, unspecified fecal incontinence type Dysphagia, unspecified type documented as of this encounter Visit Diagnoses Diagnosis CHEMA treated with BiPAP documented in this encounter Care Teams Veneer Sander Relationship Specialty Start Date End Date Vanita Churchill APRN PCP - General Family Medicine 02/27/19 07/18/24 documented as of this encounter
--- OUTSIDE RECORDS SUMMARY | 2024-08-12 07:34 | XMS_ITS | Encounter Summary ---
[place] [address] Care Team Providers Care Candle Maker Name Role Phone KwesiVanita mix Omar SPARROW Primary Care Provider [phone] Encounter Details Date Type Department Care Team (Latest Contact Info) Description 05/05/2023 12:45 PM EDT Laboratory Appointment Lab [address] [place] [id number] S/P TAVR (transcatheter aortic valve replacement) Social [...] PM EDT Office Visit Cardiology at [address] [place] [address] Rigoberto Diaz MD [facility] [place] [address] Scheduled Procedures Name Priority Associated Diagnoses Date/Ti [...] EDT S/P TAVR (transcatheter aortic valve replacement) CBC (WITH DIFF) Routine 05/05/2023 11:24 AM EDT S/P TAVR (transcatheter aortic valve replacement) COMPREHENSIVE METABOLIC PANEL Routine 05/05/2023 11:24 AM EDT S/P TAVR (transcatheter aortic valve replacement) documented in this encounter Results * (ABNORMAL) Differential, Automated (05/05/2023 11:24 AM EDT) Neutrophil % 62.9 % [facility] Neutrophil Absolute 6.55(H) 1.70 - 6.10 x10(3)/mc L [facility] Lymph % 28.0 % [facility] Lymphocytes Abs 2.9 0.9 - 3.2 x10(3)/mc L [facility] Monocyte % 7.1 % [facility] Monocyte Abs 0.7 0.3 - 0.9 x10(3)/mc L [facility] Eos % 1.2 % [facility] Eosinophils Abs 0.1 0.0 - 0.4 x10(3)/mc L [facility] Basophil % 0.3 % [facility] Baso Absolute 0.0 0.0 - 0.1 x10(3)/ L [facility] Immature Gran % 0.50 % [facility] Comment: Immature granulocytes(IG's)percentage and absolute count will include metamyelocytes, myelocytes, and promyelocytes. Blood smears from CBCs yielding IG's will be scanned manually for concordance. If this scan disagrees with the automated IG or if promyelocytes are noted, a manual differential will be performed. Immature Gran Absolute 0.05(H) 0.00 - 0.04 x10(3)/[facility] Blood 05/05/2023 11:2 4 AM EDT 05/05/2023 11:28 AM EDT Narrative Resulting Agency Comment Spec In Lab Mary SALINAS HEMATOLOGY [facility]OV[facility] [place] [address] * (ABNORMAL) Hemogram (05/05/2023 11:24 AM EDT) White Blood Cell 10.4(H) 4.0 - 9.5 x10(3)/[facility] LABORATORY Red Blood Cell 3.89(L) 4.00 - 5.21 x10(6)/[facility] Hemoglobin 12.2 11.7 - 15.5 g/dL [facility] Hematocrit 37.7 35.7 - 45.8 % [facility] Mean Cell Volume 96.9(H) 82.6 - 94.4 fL [facility] Mean Cell Hemoglobin 31.4 27.1 - 32.0 pg [facility] Mean Cell Hemoglobin Concentration 32.4 31.7 - 35.0 g/dL [facility] Platelet 216 145 - 357 x10(3)/[facility] LABORATORY RDW Standard Deviation 44.8 37.0 - 46.0 fL [facility] RDW coefficient of variation 12.7 11.5 - 14.1 % [facility] Mean Platelet Volume 9.4 7.6 - 12.9 fL [facility] NRBC% auto 0.0 % [facility] IT[facility] NRBC Absolute 0.000 0.000 - 0.000 x10(3)/mc L [facility] Blood 05/05/2023 11:2 4 AM EDT 05/05/2023 11:28 AM EDT Narrative Resulting Agency Comment Spec In Lab Mary SALINAS [facility]EMATOLOG[facility]MON[facility] ST[facility] [place] [address] * (ABNORMAL) Comprehensive metabolic panel (non-fasting) (05/05/2023 11:24 AM EDT) Glucose 111 65 - 199 mg/dL [facility] Comment:Diabetes: >=200 mg/d L plus symptoms Blood Urea Nitrogen 21(H) 8 - 18 mg/dL [facility] Creatinine 1.18 0.70 - 1.20 mg/dL [facility] Sodium 139 135 - 145 mmol/L [facility] Potassium 4.3 3.5 - 5.0 mmol/L [facility] Comment: Please note: ??Patients with WBC >100,000 may have falsely elevated Potassium levels. ??For accurate Potassium quantification in these patients send serum separator tube (gold top) for subsequent determinations. ??Contact the Clinical Chemistry Laboratory if there are any questions. Chloride 102 98 - 107 mmol/L [facility] Carbon Dioxide 26 22 - 31 mmol/L [facility] Anion Gap 11 5 - 15 mmol/L [facility] Calcium 9.4 8.5 - 10.5 mg/dL [facility] Protein, Total 7.3 6.1 - 8.0 g/dL [facility] Albumin 4.3 3.2 - 5.2 g/dL [facility] Aspartate Aminotransferase 17 0 - 30 unit/L [facility] Alanine Aminotransferase 13 0 - 30 unit/L [facility] Alkaline Phosphatase 73 35 - 105 unit/L [facility] Bilirubin, Total 0.3 0.2 - 1.3 mg/dL [facility] Est Glomerular Filtration Rate 48(L) >=60 mL/min/1. 73 m?? [facility] Comment: This patient's estimated GFR [...] MD CHEMISTRY ORDERABLE S Performing Organization Address City/State/[facility] [place] [address] documented in this encounter Visit Diagnoses Diagnosis S/P TAVR (transcatheter aortic valve replacement) documented in this encounter Care Teams Candle Maker Relationship Specialty Start Date End Date Vanita Churchill APRN PCP - General Family Medicine 02/27/19 07/18/24 documented as of this encounter
--- OUTSIDE RECORDS SUMMARY | 2024-08-12 07:34 | XMS_ITS | Encounter Summary ---
[place] [address] Care Team Providers Care Plan Consultant Name Role Phone Vanita Churchill KYARA Primary Care Provider [phone] Encounter Details Date Type Department Care Team [...] PM EDT Office Visit Cardiology at [address] [address] Rigoberto Diaz MD [facility] [place] [address] Scheduled Procedures Name Priority Associated Diagnoses Date/Ti me EGD, UPPER GI ENDOSCOPY (WRV U 2.09) Incontinence of feces, unspecified fecal incontinence type Dysphagia, unspecified type COLONOSCOPY, DIAGNOSTIC (WRV U 3.26) Incontinence of feces, unspecified fecal incontinence type Dysphagia, unspecified type documented as of this encounter Visit Diagnoses Not on filedocumented in this encounter Care Teams Plan Consultant Relationship Specialty Start Date End Date Vanita Churchill APRN PCP - General Family Medicine 02/27/19 07/18/24 documented as of this encounter
--- OUTSIDE RECORDS SUMMARY | 2024-08-12 07:34 | XMS_ITS | Encounter Summary ---
Author Organization [facility] [place] [address] Care Team Providers Care Gear Tooth Lapping Machine Operator Name Role Phone Vanita Churchill Omar SPARROW Primary Care Provider [phone] Reason for Visit * Reason Onset Date Comments Medication Refill 07/05/2023 Amlodipine Encounter Details Date Type Department Care Team (Late st Contact Info) Description 07/05/2023 Refill Cardiology at [address] [address] Mike Fraser MD [facility] [place] [place] [address] Medication Refill (Amlodipine/) Social History Tobacco Use [...] PM EDT Office Visit Cardiology at [address] [place] [address] Rigoberto Diaz MD [facility] [place] [place] [address] Scheduled Procedures Name Priority Associated Diagnoses Date/Ti [...] hypertension documented in this encounter Care Teams Gear Tooth Lapping Machine Operator Relationship Specialty Start Date End Date Vanita Churchill APRN PCP - General Family Medicine 02/27/19 07/18/24 documented as of this encounter
--- OUTSIDE RECORDS SUMMARY | 2024-08-12 07:34 | XMS_ITS | Encounter Summary ---
[place] [address] Care Team Providers Care Oil Sprayer Name Role Phone Kerline Vanita Nelson APRN Primary Care Provider [phone] Reason for Visit * Diagnostic Test (Routine) - Closed Specialty Diagnoses / Procedures Referred By Emy castillo Referred To Contact Diagnoses PAD (peripheral artery disease) Procedures MARIYA, legs, multiple levels Isabella Reyes PA [facility] [place] [address] [facility] Vascular Lab [address] [place] [address] Referral ID Status Reason Start Date Expiration Date V isits Requested Visits Authorized [id number] Closed Specialty Service Requested 07/17/2023 08/22/2024 1 1 Encounter Details Date Type Department Care Team (Late st Contact Info) Description 07/19/2024 12:30 PM EDT Tech [place] [address] Mariana Ramon PAD (peripheral artery disease); Stenosis of right [...] PM EDT Office Visit Cardiology at [address] [address] Rigoberto Diaz MD [facility] [place] [address] Scheduled Procedures Name Priority Associated Diagnoses Date/Ti me EGD, UPPER GI ENDOSCOPY (WRV U 2.09) Incontinence of feces, unspecified fecal incontinence type Dysphagia, unspecified type COLONOSCOPY, DIAGNOSTIC (WRV U 3.26) Incontinence of feces, unspecified fecal incontinence type Dysphagia, unspecified type documented as of this encounter Procedures Procedure Name Priority Date/Time Associated Diagnosis Comments MARIYA, LEGS, MULTIPLE LEVELS Routine 07/19/2024 11:41 AM EDT PAD (peripheral artery disease) CAROTID DUPLEX, BILATERAL Routine 07/19/2024 11:41 AM EDT Stenosis of right carotid artery documented in this encounter Results * Carotid Duplex, Bilateral (07/19/2024 11:41 AM EDT) VB Text Report Department: Vascular Surgery Lab Patient: [id number] (CARL FIGUEREDO) CPT: 87888 Referring Physician: STEPHEN ESPINOSA ?? Indications: History of right CEA and left ICA stenosis ? change Findings: ICA Proximal, Right ? PSV (cm/s): 85 ? EDV (cm/s): 17 ? ICA/CCA: 1.1 ? Plaque Structure: Echogenic ? Plaque Surface: Smooth ? %Stenosis: <15% ICA Distal, Right ? PSV (cm/s): 71 ? EDV (cm/s): 16 ? ICA/CCA: 0.9 CCA Distal, Right ? PSV (cm/s): 77 ? EDV (cm/s): 12 ? %Stenosis: <50% CCA Proximal, Right ? PSV (cm/s): 92 ? EDV (cm/s): 12 External Carotid Artery, Right ? PSV (cm/s): 113 ? EDV (cm/s): 6 ? %Stenosis: <50% Vertebral, Right ? PSV (cm/s): 86 ? EDV (cm/s): 17 ? Direction of Flow: Antegrade ICA Proximal, Left ? PSV (cm/s): 115 ? EDV (cm/s): 22 ? ICA/CCA: 1.9 ? Plaque Structure: Echogenic ? Plaque Surface: Irregular ? %Stenosis: 16-49% ICA Distal, Left ? PSV (cm/s): 62 ? EDV (cm/s): 14 ? ICA/CCA: 1.0 CCA Distal, Left ? PSV (cm/s): 62 ? EDV (cm/s): 12 CCA Middle, Left ? %Stenosis: <50% CCA Proximal, Left ? PSV (cm/s): 76 ? EDV (cm/s): 15 External Carotid Artery, Left ? PSV (cm/s): 204 ? EDV (cm/s): 13 ? %Stenosis: >50% Vertebral, Left ? PSV (cm/s): 60 ? EDV (cm/s): 16 ? Direction of Flow: Antegrade Interpretation: RIGHT: A thin layer of circumferential plaque is present in the common carotid artery causing minimal stenosis. There is smooth plaque in the proximal internal carotid artery causing <15% stenosis when compared to the more distal internal carotid artery. The bifurcation level is in the mid neck. No significant change compared to previous exam on 07/17/23. LEFT: There is irregular plaque in the common carotid artery causing 25-30% stenosis by electronic calipers. There is bulky irregular plaque in the proximal internal carotid artery causing 16-49% stenosis when compared to the more distal internal carotid artery. The bifurcation level is in the mid neck. No significant change compared to previous exam on 07/17/23. Vertebral Artery Data: Patent vertebral arteries with normal antegrade Doppler waveforms and velocities bilaterally. Electronically Signed by: MEGHNA DENISE on 2024-07-25 07:13:38 AM VASCUBASE VB Text Report End of Report VASCUBASE 07/19/2024 11:4 1 AM EDT Stephen Espinosa MD VASCULAR ORDERABLES VASCUBASE * MARIYA, legs, multiple levels (07/19/2024 11:41 AM EDT) VB Text Report Department: Vascular Surgery Lab Patient: [id number] (FIGUEREDO, CARL) CPT: 42779 Referring Physician: STEPHEN ESPINOSA ?? Indications: PAD Diabetes mellitus: No Findings: Right ?Pressure (mm Hg) ?? MARIYA ??Waveform ?? Brachial Artery ?165 ? Dorsalis Pedis (Ankle) Artery ?129 ? 0.77 ??Biphasic ?? Posterior Tibial (Ankle) Artery ??116 ? 0.69 ??Biphasic ?? Left ? Pressure (mm Hg) ?? MARIYA ??Waveform ? Brachial Artery ?168 ? Dorsalis Pedis (Ankle) Artery ?104 ? 0.62 ??[place]-Biphasic ?? Posterior Tibial (Ankle) Artery ??101 ? 0.60 ??[place]-Biphasic ?? Interpretation: RIGHT: Mild lower extremity arterial occlusive disease. No significant change compared to previous exam on 07/17/23. LEFT: Moderate lower extremity arterial occlusive disease. No significant change compared to previous exam on 07/17/23. Previous ABIs with change from previous value: Date ?RIGHT DP ?? RIGHT PT ?? RT GR TOE ??RT Sec TOE ??0.48 ? 0.64 ? ---- ? ---- ??0.94(+.46) 0.91(+.27) ---- ? ---- ??0.85(-.09) 0.90(-.01) ---- ? ---- ??0.89(+.04) 0.91(+.01) ---- ? ---- ??0.92(+.03) 0.85(-.06) ---- ? ---- ??0.86(-.06) 0.86(+.01) ---- ? ---- ??0.85(-.01) 0.89(+.03) ---- ? ---- ??0.76(-.09) 0.80(-.09) ---- ? ---- Current ? 0.77(+.01) 0.69(-.11) ---- ? ---- Date ?LEFT DP ?LEFT PT ?LT GR TOE LT Sec TOE ??0.48 ? 0.68 ? ---- ? ---- ??0.80(+.32) 0.84(+.16) ---- ? ---- ??0.80( .00) 0.85(+.01) ---- ? ---- ??0.87(+.07) 0.89(+.04) ---- ? ---- ??0.88(+.01) 0.88(-.01) ---- ? ---- ??0.64(-.24) 0.70(-.18) ---- ? ---- ??0.70(+.06) 0.69(-.01) ---- ? ---- ??0.57(-.13) 0.55(-.14) ---- ? ---- Current ? 0.62(+.05) 0.60(+.05) ---- ? ---- Electronically Signed by: MEGHNA DENISE on 2024-07-25 07:15:14 AM VASCUBASE VB Text Report End of Report VASCUBASE 07/19/2024 11:4 1 AM EDT Stephen Espinosa MD VASCULAR ORDERABLES VASCUBASE documented in this encounter Visit Diagnoses Diagnosis PAD (peripheral artery disease) Peripheral vascular disease, unspecified Stenosis of right carotid artery Occlusion and stenosis of carotid artery without mention of cerebral infarction documented in this encounter Care Teams Oil Sprayer Relationship Specialty Start Date End Date Vanita Churchill, KYARA [address] [place] [address] PCP - General Family Medicine 07/19/24 documented as of this encounter
--- OUTSIDE RECORDS SUMMARY | 2024-08-12 07:34 | XMS_ITS | Clinical Summary ---
Author Organization [facility] [address] Care Team Providers Care Cash Grain Farmer Name Role Phone Vanita Churchill KYARA Primary Care Provider [phone] Allergies Active Allergy Reactions Criticality Noted Date Comments [place] Butter High 01/23/2023 Glycerin High 01/23/2023 Tissue [...] mouth daily. 180 tablet 3 02/17/2023 Active Additional Information Patient not taking.Reported on 07/19/2024 acetaminophen (Tylenol) 500 mg tablet Take 2 [...] Encounters Date Type Department Care Team Description 07/19/2024 2:30 PM EDT Office Visit [place] [address] Janene Ortega, KYARA PAD (peripheral artery disease); Carotid stenosis, asymptomatic, bilateral 07/19/2024 12:30 PM EDT Tech [place] [address] Mariana Ramon PAD (peripheral artery disease); Stenosis of right carotid artery 07/19/2024 Travel 05/14/2024 Telephone Cardiology at [address] [place] [phone] Rigoberto Diaz MD from Last 3 Months Immunizations Name Administration [...] Sign Reading Time Taken Comments Blood Pressure 169/91 07/19/2024 2:04 PM EDT Pulse 87 07/19/2024 2:04 PM EDT Temperature 36.8 ??C (98.2 ??F) 03/08/2023 11:29 AM E DT Respiratory Rate 20 03/08/2023 11:29 AM EDT Oxygen Saturation 97% 07/19/2024 2:02 PM EDT Inhaled Oxygen Concentration - - Weight 74.4 kg (164 lb) 07/19/2024 2:02 PM EDT Height 163.8 cm (5' 4.5) 07/19/2024 2:02 PM EDT Body Mass Index 27.72 07/19/2024 2:02 PM EDT Plan of Treatment Upcoming Encounters Date Type Department Care Team (Late st Contact Info) Description 02/06/2025 2:40 PM EDT Office Visit Cardiology at [address] [place] [address] Rigoberto Diaz MD [facility] [place] [address] Scheduled Procedures Name Priority Associated Diagnoses Date/Ti [...] yearly 12/06/2022 0 12/06/2012, 12/06/2012 Covid-19 Vaccine (1 - 2022-24 season) 2024 Influenza (Flu) vaccine (1 o f 1 - Influenza standard series) 07/28/2024 08/17/2017 Medical Devices Implanted Type Area Retort Or Condenser Press Operator Device Identifier Shelf Expiration Date Model / Serial / Lot Patch,Biol,Xenos ure,.8x8cm ([id number]) - [id number] Implanted:Qty: 1 on 08/15/2017 by Jake Montaño MD at COUNTS INCLUDE 234 BEDS AT [facility] IMPLANTS Left: Groin [employer] - [id number] 04/23/2023 E0.8P8 / / [id number] Stent,Xpress,Blr y,8x40mm,75cm ([id number]) - [id number] Implanted:Qty: 1 on 08/15/2017 by Jake Montaño MD at COUNTS INCLUDE 234 BEDS AT [facility] IMPLANTS Left: Arterial DO NOT USE [employer] - [id number] 05/07/2020 [id number] / / [id number] Description:Left iliac arter y. From IR inventory Stent,Xpress,Blr y,8x40mm,135 ([id number]) - [id number] Implanted:Qty: 1 on 08/15/2017 by Jake Montaño MD at COUNTS INCLUDE 234 BEDS AT [facility] IMPLANTS Right: Arterial DO NOT USE [employer] - [id number] 12/28/2019 [id number] / / [id number] Description:Right iliac yudith ry. From IR inventory Closu,Vsl,Prcl,P rgld,Smc,6fr ([id number]) - [id number] Implanted:Qty: 1 on 08/15/2017 by Jake Montaño MD at COUNTS INCLUDE 234 BEDS AT [facility] IMPLANTS Right: Arterial [employer] - [id number] 04/26/2019 [id number] / / [id number] Description:Right groin Patch,Biol,Xenos ure,.8x8cm ([id number]) - [id number] Implanted:Qty: 1 on 06/10/2019 by Jake Montaño MD at COUNTS INCLUDE 234 BEDS AT [facility] IMPLANTS Right: Carotid [employer] - LEICAITRE 09/23/2024 E0.8P8 / / [id number] Lenard 3 Ultra Resilia Transcatheter Heart Valve-03/07/2023 Implanted:Qty: 1 on 03/07/2023 by Mike Fraser MD IMPLANTS Heart [id number] / [id number] / Procedures Procedure Name Priority Date/Time Associated Diagnosis Comments CAROTID DUPLEX, BILATERAL Routine 07/19/2024 11:41 AM EDT Stenosis of right carotid artery MARIYA, LEGS, MULTIPLE LEVELS Routine 07/19/2024 11:41 AM EDT PAD (peripheral artery disease) COLONOSCOPY Routine 12/06/2012 1:34 PM EST from Last 3 Months or Most Recently Relevant to Health Maintenance Results * MARIYA, legs, multiple levels (07/19/2024 11:41 AM EDT) VB Text Report Department: Vascular Surgery Lab Patient: [id number] (LINDSEY DELEON) CPT: 22975 Referring Physician: CANDIDO ESPINOSA ?? Indications: PAD Diabetes mellitus: No Findings: Right ?Pressure (mm Hg) ?? MARIYA ??Waveform ?? Brachial Artery ?165 ? Dorsalis Pedis (Ankle) Artery ?129 ? 0.77 ??Biphasic ?? Posterior Tibial (Ankle) Artery ??116 ? 0.69 ??Biphasic ?? Left ? Pressure (mm Hg) ?? MARIYA ??Waveform ? Brachial Artery ?168 ? Dorsalis Pedis (Ankle) Artery ?104 ? 0.62 ??[place]-Biphasic ?? Posterior Tibial (Ankle) Artery ??101 ? 0.60 ??[place]-Biphasic ?? Interpretation: RIGHT: Mild lower extremity arterial [...] Report VASCUBASE 07/19/2024 11:4 1 AM EDT Candido Espinosa MD VASCULAR ORDERABLES VASCUBASE * Carotid Duplex, Bilateral (07/19/2024 11:41 AM EDT) VB Text Report Department: Vascular Surgery Lab Patient: [id number] (OBDULIA DELEONSA) CPT: [id number] Referring Physician: CANDIDO ESPINOSA ?? Indications: History of right CEA [...] Report VASCUBASE 07/19/2024 11:4 1 AM EDT Candido Espinosa MD VASCULAR ORDERABLES VASCUBASE * COLONOSCOPY (12/06/2012 1:34 PM EST) COLONOSCOPY [facility] Endoscopy Patient Name: Lindsey Deleon ? Procedure Date: 12/06/2012 1:34 PM ? Date of : 1950 ? Age: 61 ? Order #: [id number] ? Procedure: ? Colonoscopy Indications: ? High risk colon cancer surveillance: ? Personal history of colonic polyps Providers: ? Mik Dumont MD, Valentine Beckett ? RANGEL Crawford, [...] PROVATION 12/06/2012 1:34 PM EST Demetra Goff [facility]AL SURGICAL ORD ERABLES PROVATION from Last 3 Months or Most Recently Relevant to Health Maintenance Advance Directives Documents on File Type Date Recorded Patient Active Directory Engineer Expl anation Advance Directives and Livin g Will 05/21/2019 2:33 PM Advance Directives and [...] Agents on File Name Relationship Healthcare Agent [facility] Communication Sammi Trev Child Health Care Agent Abelardo Trevizo [facility] Health Care Agent Care Teams Cash Grain Farmer Relationship Specialty Start Date End Date Vanita Churchill APRN [address] [place] [address] PCP - General Family Medicine 07/19/24
--- OUTSIDE RECORDS SUMMARY | 2024-08-12 07:34 | XMS_ITS | Encounter Summary ---
Author Organization [facility] Address [address] [place] [address] Care Team Providers Care Mortgage Collector Name Role Phone Unavailable Primary Care Provider Unavailabl e Encounter Details Date Type Department Care Team (Late st Contact Info) Description 01/31/2006 Results Only [facility] [address] [place] [address] Mega Cunningham MD [address] [place] [address] Social History Tobacco Use Types Packs/Day Years Used Date Smoking Tobacco: Never Assessed Sex and Gender Information Value Date Recorded Sex Assigned at Not on file Gender Identity Not on file Sexual Orientation Not on file documented as of this encounter Plan of Treatment Not on file documented as of this encounter Procedures Procedure Name Priority Date/Time Associated Diagnosis Comments SURGICAL PATHOLOGY Routine 01/31/2006 0:00 EST documented in this encounter Results * SURGICAL PATHOLOGY (01/31/2006 0:00 EST) Pathology Report: SURGICAL PATHOLOGY REPORT Reports generated via electronic interface contain original data; however they are lacking the format of the original report. Caution should be taken when reading/interpreti ng unformatted reports. Name: ? BEA, LINDSEY ? Accession #: ? [id number] ? : ? 1950 (Age: 55) ??F ? Collect Date: ? 01/31/2006 ? Location: ? [facility] ? Receive Date: ? 01/31/2006 ? Provider: KANE CUNNINGHAM MD Copy to: IKE ASLINAS ? Final Pathologic Diagnosis: ? Gallbladder, cholecystectomy: 1. ?Chronic cholecystitis. 2. ?Cholesterolosis. 3. ?Cholelithiasis. 4. ?Cystic duct lymph node with no pathologic features. Document reviewed and electronically signed by: EMRRICK TUTTLE MD Report ??Date: 02/01/2006 15:23 By the signature above, the attending physician certifies that he/she has personally conducted a gross and/or microscopic examination of the described specimens and rendered or confirmed the above diagnosis. Specimen(s) Received: ? Gallbladder Clinical History: ? Cholelithiasis with RUQ pain Gross Description: ? Received in green bile-stained formalin labelled Deleon and gallbladder is a gallbladder which is received partially opened which measures 7.5 cm in length by 2.5 cm in diameter and includes a short segment of cystic duct which measures 1.2 cm in length by 0.2 cm in diameter. ??There is a 0.5 cm in diameter white focally hyperemic firm cystic duct lymph node. ??The gallbladder contains roughly 1000 hard multifaceted pure type choleliths which vary from 0.5 cm to 0.3 cm in diameter. ??The mucosa of the gallbladder is light evangelista and velvety. ??The gallbladder wall measures 0.1 cm in thickness. ??The serosa is smooth and unremarkable. ??The cystic duct is of normal caliber and the cystic duct resection margin is black inked. ??Three contact center representative sections of the gallbladder are submitted as (A1). ??The bisected cystic duct lymph node is submitted entirely as (A2). ??(Gilma Melgar)/[facility] End of Report CELY ACOSTA 01/31/2006 01/31/2006 15: 01 EST Mega Cunningham MD PATHOLOGY ORDERABLES Performing Organization Address City/State/[facility] Co de Phone Number [address] [address] documented in this encounter Visit Diagnoses Not on filedocumented in this encounter
--- OUTSIDE RECORDS SUMMARY | 2024-08-12 07:34 | XMS_ITS | Encounter Summary ---
[place] [address] Care Team Providers Care Continuous Vulcanizing Machine Operator Name Role Phone KwesiVanita mix Omar SPARROW Primary Care Provider [phone] Encounter Details Date Type Department Care Team (Late st Contact Info) Description 01/17/2024 Telephone Sleep Center at [facility] [address] [place] [phone] Gloria Martin Social History Tobacco Use Types [...] PM EDT Office Visit Cardiology at [address] [place] [address] [facility] [place] [address] Scheduled Procedures Name Priority Associated Diagnoses Date/Ti me EGD, UPPER GI ENDOSCOPY (WRV U 2.09) Incontinence of feces, unspecified fecal incontinence type Dysphagia, unspecified type COLONOSCOPY, DIAGNOSTIC (WRV U 3.26) Incontinence of feces, unspecified fecal incontinence type Dysphagia, unspecified type documented as of this encounter Visit Diagnoses Not on filedocumented in this encounter Care Teams Continuous Vulcanizing Machine Operator Relationship Specialty Start Date End Date Vanita Churchill APRN PCP - General Family Medicine 02/27/19 07/18/24 documented as of this encounter
--- OUTSIDE RECORDS SUMMARY | 2024-08-12 07:34 | XMS_ITS | Encounter Summary ---
Author Organization [facility] [place] [address] Care Team Providers Care Pulling Unit Floorhand Name Role Phone Vanita Churchill Omar SPARROW Primary Care Provider [phone] Encounter Details Date Type Department Care Team (Late st Contact Info) Description 05/09/2024 Telephone Cardiology at [address] [address] Rigoberto Diaz MD [facility] [address] [place] [address] Social History Tobacco Use Types Packs/Day Years [...] EDT TC with the yasmani Helm at [facility] ED. Patient presented to their ED after [...] PM EDT Office Visit Cardiology at [address] [place] [address] Rigoberto Diaz MD [facility] [place] [address] Scheduled Procedures Name Priority Associated Diagnoses Date/Ti me EGD, UPPER GI ENDOSCOPY (WRV U 2.09) Incontinence of feces, unspecified fecal incontinence type Dysphagia, unspecified type COLONOSCOPY, DIAGNOSTIC (WRV U 3.26) Incontinence of feces, unspecified fecal incontinence type Dysphagia, unspecified type documented as of this encounter Visit Diagnoses Not on filedocumented in this encounter Care Teams Pulling Unit Floorhand Relationship Specialty Start Date End Date Vanita Churchill APRN PCP - General Family Medicine 02/27/19 07/18/24 documented as of this encounter
--- OUTSIDE RECORDS SUMMARY | 2024-08-12 07:34 | XMS_ITS | Encounter Summary ---
Author Organization [facility] Address [address] [place] [address] Care Team Providers Care Venture Capitalist Name Role Phone Unavailable Primary Care Provider Unavailabl e Encounter Details Date Type Department Care Team (Late st Contact Info) Description 11/26/2007 Results Only [facility] [address] [place] [address] Demetra Blankenship, CARLITA [facility] [address] [place] [address] Social History Tobacco Use Types Packs/Day Years Used Date Smoking Tobacco: Never Assessed Sex and Gender Information Value Date Recorded Sex Assigned at Not on file Gender Identity Not on file Sexual Orientation Not on file documented as of this encounter Plan of Treatment Not on file documented as of this encounter Procedures Procedure Name Priority Date/Time Associated Diagnosis Comments CYTOPATHOLOGY Routine 11/26/2007 0:00 EST documented in this encounter Results * CYTOPATHOLOGY (11/26/2007 0:00 EST) Pathology Report: CYTOPATHOLOGY REPORT Reports generated via electronic interface contain original data; however they are lacking the format of the original report. Caution should be taken when reading/interpreti ng unformatted reports. Name: ? LINDSEY FIGUEREDO ? Accession #: ? [id number] : ? 1950 (Age: 56) ??F ?Collect Date: ? 11/26/2007 Location: ? [facility] ? Receive Date: ? 11/29/2007 Provider: ?DEMETRA BLANKENSHIP DIRECTOR OF MEDICAL STAFF SERVICES Copy to: ? Specimen/Source: ?ThinPrep Pap Test, Cervix/Endocervix, processed on [employer] ThinPrep Imaging System, with manual evaluation Last Menstrual Period: ? 12 yrs Hormonal/Contracep tive Status: ? Yes: Estz/Prog/Test. ? SPECIMEN ADEQUACY ? Satisfactory for Evaluation - transformation zone component present GENERAL CATEGORIZATION ? Negative for Intraepithelial Lesion or Malignancy ? Document reviewed and electronically signed by: ? MARITZA Mccauley(ASCP) ? Report Date: ??11/30/2007 09:34 End of Report CELY ACOSTA 11/26/2007 11/29/2007 Demetra Blankenship NP PATHOLOGY ORDERABLES CELY ACOSTA [address] [place] [address] documented in this encounter Visit Diagnoses Not on filedocumented in this encounter
--- OUTSIDE RECORDS SUMMARY | 2024-08-12 07:34 | XMS_ITS | Encounter Summary ---
Author Organization [facility] Address [address] [place] [address] Care Team Providers Care Police Magistrate Name Role Phone Unavailable Primary Care Provider Unavailabl e Encounter Details Date Type Department Care Team (Late st Contact Info) Description 03/22/2012 Results Only [facility] [phone] Leeanna Becker, [address] [place], [place] [id number] Social History Tobacco Use Types Packs/Day Years Used Date Smoking Tobacco: Never Assessed Sex and Gender Information Value Date Recorded Sex Assigned at Not on file Gender Identity Not on file Sexual Orientation Not on file documented as of this encounter Plan of Treatment Not on file documented as of this encounter Procedures Procedure Name Priority Date/Time Associated Diagnosis Comments SURGICAL PATHOLOGY Routine 03/22/2012 0:00 EDT documented in this encounter Results * SURGICAL PATHOLOGY (03/22/2012 0:00 EDT) Pathology Report: SURGICAL PATHOLOGY REPORT Reports generated via electronic interface contain original data; however they are lacking the format of the original report. Caution should be taken when reading/interpreting unformatted reports. Name: ? BEA, LINDSEY ? Accession #: ? [id number] ? : ? 1950 (Age: 61) ??F ? Collect Date: ? 03/22/2012 ? Location: ? [facility] ? Receive Date: ? 03/22/2012 ? Provider: LEEANNA BECKER DO Copy to: ARNOLD Combs KRZYSZTOF FINISHER [employer] ? Final Pathologic Diagnosis: ? Left true vocal cord, biopsy: 1. ?Polypoid fragments of squamous mucosa with mild parakeratosis and reactive epithelial changes. 2. ? Negative for dysplasia. ??See comment. Comment: ? This case has been reviewed at intradepartmental consultation conference. (Dr. Erazo)/[facility] Document reviewed and electronically signed by: SUMEET ERAZO MD Report ??Date: 03/26/2012 15:34 By the signature above, the attending physician certifies that he/she has personally conducted a gross and/or microscopic examination of the described specimens and rendered or confirmed the above diagnosis. Specimen(s) Received: ? L true vocal cord Clinical History: ? Dysphonia, L TVC erythema, hx tobacco addiction; clinical diagnosis codes: 235.6, 784.42 Gross Description: ? Received in formalin labelled Deleon, Lindsey and L true vocal cord is a 0.3 x 0.1 x 0.1 cm, white, focally light evangelista, soft piece of tissue which is submitted intact in one cassette. ??(Gilma Melgar)/[facility] End of Report CELY ACOSTA 03/22/2012 03/22/2012 16: 25 EDT Leeanna Becker DO PATHOLOGY ORDER TANA CELY ACOSTA [address] [place] [address] documented in this encounter Visit Diagnoses Not on filedocumented in this encounter
--- OUTSIDE RECORDS SUMMARY | 2024-08-12 07:34 | XMS_ITS | Encounter Summary ---
[place] [address] Care Team Providers Care Judge Clerk Name Role Phone Kerline Vanita Nelson APRN Primary Care Provider [phone] Reason for Visit * Diagnostic Test (Routine) - Closed Specialty Diagnoses / Procedures Referred By Emy castillo Referred To Contact Sleep Center Diagnoses CHEMA treated with BiPAP Difficulty with BiPAP use Procedures Sleep Study with Pap Titration Sleep Study with Pap Titration Alley Johnson APRN [facility] [place] [address] [facility] Sleep Medicine [address] [place] [address] Referral ID Status Reason Start Date Expiration Date V isits Requested Visits Authorized [id number] Closed Specialty Service Requested 11/23/2023 11/23/2024 1 1 Encounter Details Date Type Department Care Team (Late st Contact Info) Description 01/05/2024 7:30 PM EST Procedure visit Sleep Center at [facility] [address] [place] [phone] Matt Sutton MD [facility] [place] [address] CHEMA treated with BiPAP; Difficulty with BiPAP [...] of 169/73 prior to this sleep study. [facility] REPORT OF TITRATION POLYSOMNOGRAPHY Patient Lindsey Deleon Study Date 01/05/2024 1950 Age 73 Height 5'4.5 Weight (lbs.) 160 BMI 27.0 PSG Tech: JUAN Solorzano Scoring Tech JUAN Ríos, [employer] Interpreting Physician Dr. Matt Sutton MD Ordering [...] hypopneas associated with an arousal or a >= 3% desaturation. Supine Non-Sup. REM NREM Total Count: 14 7 1 20 21 Index (events/hr): 20.5 2.5 1.6 6.8 AHI = 5.9 CMS AHI: Includes all apneas & only hypopneas associated with a >= 4% desaturation. Supine Non-Sup. REM NREM Total [...] NREM (minutes) REM (minutes) All Sleep (minutes) <=90% 0.0 0.0 0.0 0.0 <=89% 0.0 0.0 0.0 0.0 <=88% 0.0 0.0 0.0 0.0 90-99% 236.5 175.2 36.5 211.7 80-89.9% 0.0 0.0 0.0 0.0 79-79.9% 0.0 0.0 0.0 0.0 60-69.9% 0.0 0.0 0.0 0.0 50-59.9% 0.0 0.0 0.0 0.0 <=50% 0.0 0.0 0.0 0.0 Cardiac Details Heart [...] of hypopneas: those associated with arousals or >=3% desaturations. Respiratory Indices (events per hour) IP/EP/O2 OAI EMILY LEFTY HI* RDI 0 0 0.0 0.0 0.0 0.0 0.0 1.9 0.0 6.1 0.0 8.0 *Includes all types of hypopneas: those associated with arousals or >=3% desaturations. Respiratory Indices (events per hour) IP/EP/O2 AHI Supine Non-Sup. REM Non-REM 0 /0 0.0 8.0 0.0 20.5 0.0 3.6 0.0 1.6 0.0 9.9 *Includes all types of hypopneas: those associated with arousals or >=3% desaturations. Oxygen Saturations IP/EP/O2 Minimum Mean 0 0 93 92 94 95 Graphs CPAP/Bi-Level PLMs Body Position . documented in this encounter Plan of Treatment Upcoming Encounters Date Type Department Care Team (Late st Contact Info) Description 02/06/2025 2:40 PM EDT Office Visit Cardiology at [address] [place] [address] Rigoberto Diaz MD [facility] [place] [address] Scheduled Procedures Name Priority Associated Diagnoses Date/Ti me EGD, UPPER GI ENDOSCOPY (WRV U 2.09) Incontinence of feces, unspecified fecal incontinence type Dysphagia, unspecified type COLONOSCOPY, DIAGNOSTIC (WRV U 3.26) Incontinence of feces, unspecified fecal incontinence type Dysphagia, unspecified type documented as of this encounter Visit Diagnoses Diagnosis CHEMA treated with BiPAP Difficulty with BiPAP use documented in this encounter Care Teams Judge Clerk Relationship Specialty Start Date End Date Vanita Churchill APRN PCP - General Family Medicine 02/27/19 07/18/24 documented as of this encounter
--- OUTSIDE RECORDS SUMMARY | 2024-08-12 07:34 | XMS_ITS | Encounter Summary ---
Author Organization [facility] [place] [address] Care Team Providers Care Personal Service Workers Name Role Phone Vanita Churchill Omar SPARROW Primary Care Provider [phone] Encounter Details Date Type Department Care Team (Late st Contact Info) Description 05/05/2023 2:20 PM EDT Office Visit Cardiology at [address] [phone] Mike Fraser MD [facility] [place] [address] S/P TAVR (transcatheter aortic valve replacement) (Primary [...] drink = 0.6 oz pur e alcohol) [facility] Inpatient Questions Answer Date Recorded [...] from the original note were not included. [facility] [place] [address] Structural Heart Follow Up Subjective: HPI: Lindsey Mehta is a 72 [...] Abs 0.05 (H) Assessment and Plan: Lindsey Mehta is a 72 y.o. female [...] Suhail Padilla APRN Structural Heart Disease Pager [phone] minutes or more were spent in [...] PM EDT Office Visit Cardiology at [address] [phone] Rigoberto Diaz MD [facility] [place] [address] Scheduled Procedures Name Priority Associated Diagnoses Date/Ti [...] (Bezet) 493 ms MUSE SYSTEM Calculated P Collins 72 degrees MUSE SYSTEM Calculated R Collins -52 degrees MUSE SYSTEM Calculated T Collins 44 degrees MUSE SYSTEM INTERPRETATION Normal sinus [...] Atherosclerotic PVD with intermittent claudication Atherosclerosis of [place] arteries of the extremities with intermittent claudication Claudication in peripheral vascular disease Peripheral vascular disease, unspecified Bilateral carotid artery stenosis Occlusion and stenosis of multiple and bilateral precerebral arteries without mention of cerebral infarction Aortic valve stenosis, etiology of cardiac valve disease unspecified Atrial fibrillation, unspecified type documented in this encounter Care Teams Personal Service Workers Relationship Specialty Start Date End Date Vanita Churchill APRN PCP - General Family Medicine 02/27/19 07/18/24 documented as of this encounter
--- OUTSIDE RECORDS SUMMARY | 2024-08-12 07:34 | XMS_ITS | Encounter Summary ---
Author Organization [facility] [place] [address] Care Team Providers Care Church Worker Name Role Phone Vanita Churchill KYARA Primary Care Provider [phone] Reason for Referral * Consultation (Routine) - Authorized Specialty Diagnoses / Procedures Referred By Emy castillo Referred To Contact Cardiology Diagnoses Hypertension, unspecified type Bilateral carotid artery stenosis Aortic valve stenosis, etiology of cardiac valve disease unspecified Atrial fibrillation, unspecified type Essential hypertension ASCVD (arteriosclerotic cardiovascular disease) Hypercholesteremia S/P TAVR (transcatheter aortic valve replacement) Severe aortic stenosis Aortic stenosis, severe Mike Fraser MD [facility] [place] [address] Rigoberto Diaz MD [facility] [address] Referral ID Status Reason Start Date Expiration Date Visits Requested Visits Authorized [id number] Authorized Consult, Test & Treat 12/19/2023 12/18/2024 1 1 Encounter Details Date Type Department Care Team (Late st Contact Info) Description 12/19/2023 Orders Only Cardiology at [address] [address] Mike Fraser MD [facility] [address] [address] Hypertension, unspecified type; Bilateral carotid artery stenosis; [...] PM EDT Office Visit Cardiology at [address] [phone] Rigoberto Diaz MD [facility] [address] [address] Scheduled Procedures Name Priority Associated Diagnoses Date/Ti [...] disorders documented in this encounter Care Teams Church Worker Relationship Specialty Start Date End Date Vanita Churchill APRN PCP - General Family Medicine 02/27/19 07/18/24 documented as of this encounter
--- OUTSIDE RECORDS SUMMARY | 2024-08-12 07:34 | XMS_ITS | Encounter Summary ---
Author Organization [facility] [place] [address] Care Team Providers Care Rehabilitation Nurse Name Role Phone Vanita Churchill Omar SPARROW Primary Care Provider [phone] Encounter Details Date Type Department Care Team (Late st Contact Info) Description 12/26/2023 Telephone Cardiology at [address] [address] Rigoberto Diaz MD [facility] [address] [place] [address] Social History Tobacco Use Types Packs/Day Years [...] a pre-op clearance. Please call her @ [phone] documented in this encounter Plan of Treatment Upcoming Encounters Date Type Department Care Team (Late st Contact Info) Description 02/06/2025 2:40 PM EDT Office Visit Cardiology at [address] [address] Rigoberto Diaz MD [facility] [place] [address] Scheduled Procedures Name Priority Associated Diagnoses Date/Ti me EGD, UPPER GI ENDOSCOPY (WRV U 2.09) Incontinence of feces, unspecified fecal incontinence type Dysphagia, unspecified type COLONOSCOPY, DIAGNOSTIC (WRV U 3.26) Incontinence of feces, unspecified fecal incontinence type Dysphagia, unspecified type documented as of this encounter Visit Diagnoses Not on filedocumented in this encounter Care Teams Rehabilitation Nurse Relationship Specialty Start Date End Date Vanita Churchill APRN PCP - General Family Medicine 02/27/19 07/18/24 documented as of this encounter
--- OUTSIDE RECORDS SUMMARY | 2024-08-12 07:34 | XMS_ITS | Encounter Summary ---
[place] [address] Care Team Providers Care Manager Art Name Role Phone Kwesidominguez Vanita Nelson APRN Primary Care Provider [phone] Reason for Referral * Diagnostic Test (Routine) - Closed Specialty Diagnoses / Procedures Referred By Emy castillo Referred To Contact Diagnoses Stenosis of right carotid artery Procedures Carotid Duplex, Bilateral Isabella Reyes PA [facility] [place] [address] [facility] Vascular Lab [address] [place] [phone] Referral ID Status Reason Start Date Expiration Date V isits Requested Visits Authorized [id number] Closed Specialty Service Requested 07/17/2023 09/05/2024 1 1 * Diagnostic Test (Routine) - Closed Specialty Diagnoses / Procedures Referred By Emy castillo Referred To Contact Diagnoses PAD (peripheral artery disease) Procedures MARIYA, legs, multiple levels Isabella Reyes PA [facility] [place] [address] [facility] Vascular Lab [address] [place] [address] Referral ID Status Reason Start Date Expiration Date V isits Requested Visits Authorized [id number] Closed Specialty Service Requested 07/17/2023 08/22/2024 1 1 Reason for Visit * Reason Comments Follow-up Pt reports that her BP has been high.BP med was increased. Pt reports headaches daily Encounter Details Date Type Department Care Team (Late st Contact Info) Description 07/17/2023 9:30 AM EDT Office Visit [place] [address] Isabella Reyes PA [facility] DR VASCULAR SURGERY [place], [place] [id number] PAD (peripheral artery disease); Stenosis of right carotid artery Social History Tobacco Use Types Packs/Day Years Used Date Smoking Tobacco: Former Cigarettes 2 30 1 12/21/1973 - 10/21/2004 Smokeless Tobacco: Never Alcohol Use Standard Drinks/Week Comments Yes 0 (1 standard drink = 0.6 oz pur e alcohol) [facility] Inpatient Questions Answer Date Recorded Does [...] Monophasic Posterior Tibial (Ankle) Artery 87 0.55 Sawyer-Biphasic Interpretation: RIGHT: Mild lower extremity arterial occlusive [...] 0.55(-.14) ---- ---- Assessment and Plan: Lindsey Mehta 72 y.o. female with PMH: with stable [...] concerns prior to next appointment. Instructed to [id number] for any s/sx of TIA/CVA including unilateral [...] PM EDT Office Visit Cardiology at [address] [phone] Rigoberto Diaz MD [facility] [place] [address] Scheduled Procedures Name Priority Associated Diagnoses Date/Ti me EGD, UPPER GI ENDOSCOPY (WRV U 2.09) Incontinence of feces, unspecified fecal incontinence type Dysphagia, unspecified type COLONOSCOPY, DIAGNOSTIC (WRV U 3.26) Incontinence of feces, unspecified fecal incontinence type Dysphagia, unspecified type documented as of this encounter Results * Carotid Duplex, Bilateral (07/19/2024 11:41 AM EDT) VB Text Report Department: Vascular Surgery Lab Patient: [id number] ([facility]) CPT: 12293 Referring Physician: CANDIDO EDUARDO ?? Indications: History of right CEA and [...] VASCUBASE 07/19/2024 11:4 1 AM EDT Candido Eduardo MD VASCULAR ORDERABLES VASCUBASE * MARIYA, legs, multiple levels (07/19/2024 11:41 AM EDT) VB Text Report Department: Vascular Surgery Lab Patient: [id number] (LINDSEY MEHTA) CPT: 41289 Referring Physician: CANDIDO EDUARDO ?? Indications: PAD Diabetes mellitus: No Findings: Right ?Pressure (mm Hg) ?? MARIYA ??Waveform ?? Brachial Artery ?165 ? Dorsalis Pedis (Ankle) Artery ?129 ? 0.77 ??Biphasic ?? Posterior Tibial (Ankle) Artery ??116 ? 0.69 ??Biphasic ?? Left ? Pressure (mm Hg) ?? MARIYA ??Waveform ? Brachial Artery ?168 ? Dorsalis Pedis (Ankle) Artery ?104 ? 0.62 ??Sawyer-Biphasic ?? Posterior Tibial (Ankle) Artery ??101 ? 0.60 ??Sawyer-Biphasic ?? Interpretation: RIGHT: Mild lower extremity arterial [...] VASCUBASE 07/19/2024 11:4 1 AM EDT Candido Eduardo MD VASCULAR ORDERABLES VASCUBASE documented in this encounter Visit Diagnoses Diagnosis PAD (peripheral artery disease) Peripheral vascular disease, unspecified Stenosis of right carotid artery Occlusion and stenosis of carotid artery without mention of cerebral infarction documented in this encounter Care Teams Manager Art Relationship Specialty Start Date End Date Vanita Churchill APRN PCP - General Family Medicine 02/27/19 07/18/24 documented as of this encounter
--- OUTSIDE RECORDS SUMMARY | 2024-08-12 07:34 | XMS_ITS | Encounter Summary ---
Author Organization [facility] Address [address] [place] [address] Care Team Providers Care Shop Tailor Apprentice Name Role Phone Unavailable Primary Care Provider Unavailabl e Encounter Details Date Type Department Care Team (Late st Contact Info) Description 08/05/2002 Results Only [facility] conversion [address] [place] [address] Unknown, Provider, Social History Tobacco Use Types Packs/Day Years Used Date Smoking Tobacco: Never Assessed Sex and Gender Information Value Date Recorded Sex Assigned at Not on file Gender Identity Not on file Sexual Orientation Not on file documented as of this encounter Plan of Treatment Not on file documented as of this encounter Procedures Procedure Name Priority Date/Time Associated Diagnosis Comments CYTOPATHOLOGY Routine 08/05/2002 0:00 EDT documented in this encounter Results * CYTOPATHOLOGY (08/05/2002 0:00 EDT) Pathology Report: CYTOPATHOLOGY REPORT Reports generated via electronic interface contain original data; however they are lacking the format of the original report. Caution should be taken when reading/interpreti ng unformatted reports. Name: ? LINDSEY FIGUEREDO ? Accession #: ? [id number] : ? 1950 (Age: 51) ??F ?Collect Date: ? 08/05/2002 Location: ? [facility] ? Receive Date: ? 08/07/2002 Provider: ?PAULA DOWNEY MD Copy to: ? Specimen/Source: ?ThinPrep Pap Test, Cervix/Endocervix Last Menstrual Period: ? Menstrual/Pregnanc y Status: ? Post Menopausal ? SPECIMEN ADEQUACY ? Satisfactory for Evaluation - transformation zone component present GENERAL CATEGORIZATION ? Negative for Intraepithelial Lesion or Malignancy ? Document reviewed and electronically signed by: ? MARITZA Kiser(ASCP) ? Report Date: ??08/08/2002 09:50 End of Report CELY ACOSTA 08/05/2002 08/07/2002 Provider Unknown MD PATHOLOGY ORDERABLES [facility] [address] [place] [address] documented in this encounter Visit Diagnoses Not on filedocumented in this encounter
--- OUTSIDE RECORDS SUMMARY | 2024-08-12 07:34 | XMS_ITS | Encounter Summary ---
[place] [address] Care Team Providers Care Loan Officer Name Role Phone Vanita Churchill Omar SPARROW Primary Care Provider [phone] Encounter Details Date Type Department Care Team [...] PM EDT Office Visit Cardiology at [address] [phone] Rigoberto Diaz MD [facility] [place] [address] Scheduled Procedures Name Priority Associated Diagnoses Date/Ti me EGD, UPPER GI ENDOSCOPY (WRV U 2.09) Incontinence of feces, unspecified fecal incontinence type Dysphagia, unspecified type COLONOSCOPY, DIAGNOSTIC (WRV U 3.26) Incontinence of feces, unspecified fecal incontinence type Dysphagia, unspecified type documented as of this encounter Visit Diagnoses Not on filedocumented in this encounter Care Teams Loan Officer Relationship Specialty Start Date End Date Vanita Churchill APRN PCP - General Family Medicine 02/27/19 07/18/24 documented as of this encounter
--- OUTSIDE RECORDS SUMMARY | 2024-08-12 07:34 | XMS_ITS | Encounter Summary ---
Author Organization [facility] Address [address] [place] [address] Care Team Providers Care Advanced Analytics Associate Name Role Phone Unknown, Provider Primary Care Provider Encounter Details Date Type Department Care Team (Late st Contact Info) Description 10/16/2019 Lab Requisition [facility] Pathology & Laboratory Medicine - [address] [address] Unknown, Provider, Social History Tobacco Use Types Packs/Day Years Used Date Smoking Tobacco: Never Assessed Sex and Gender Information Value Date Recorded Sex Assigned at Not on file Gender Identity Not on file Sexual Orientation Not on file documented as of this encounter Plan of Treatment Not on file documented as of this encounter Procedures Procedure Name Priority Date/Time Associated Diagnosis Comments H. PYLORI ANTIGEN Routine 10/15/2019 19: 15 EST documented in this encounter Results * H. PYLORI ANTIGEN (10/15/2019 19:15 EST) H. Pylori Negative Negative 10/17/2019 15:32 EST [facility] Feces STOOL SPECIMEN / Unknown Stool Collect / Unknown 10/15/2019 19:15 EST 10/16/2019 16:18 EST Narrative [facility] - 10/17/2019 15:32 EST Results were obtained with the Memeoirsier Winkelman HpSA Plus DMITRIY. Provider Unknown MICROBIOLOGY - GENER AL ORDERABLES [facility] [address] [place] [address] documented in this encounter Visit Diagnoses Not on filedocumented in this encounter Care Teams Advanced Analytics Associate Relationship Specialty Start Date End Date Unknown, Provider, PCP - General 03/26/12 documented as of this encounter
--- OUTSIDE RECORDS SUMMARY | 2024-08-12 07:34 | XMS_ITS | Encounter Summary ---
[place] [address] Care Team Providers Care Strategic Marketing Specialist Name Role Phone Vanita Churchill Omar SPARROW Primary Care Provider Encounter Details Date Type Department Care Team (Latest Contact Info) Description 07/19/2024 Travel Social History Tobacco Use Types Packs/Day [...] PM EDT Office Visit Cardiology at [address] [phone] Rigoberto Diaz MD [facility] [place] [address] Scheduled Procedures Name Priority Associated Diagnoses Date/Ti me EGD, UPPER GI ENDOSCOPY (WRV U 2.09) Incontinence of feces, unspecified fecal incontinence type Dysphagia, unspecified type COLONOSCOPY, DIAGNOSTIC (WRV U 3.26) Incontinence of feces, unspecified fecal incontinence type Dysphagia, unspecified type documented as of this encounter Visit Diagnoses Not on filedocumented in this encounter Care Teams Strategic Marketing Specialist Relationship Specialty Start Date End Date Vanita Churchill APRN [address] [place] [address] PCP - General Family Medicine 07/19/24 documented as of this encounter
--- OUTSIDE RECORDS SUMMARY | 2024-08-12 07:34 | XMS_ITS | Encounter Summary ---
[place] [address] Care Team Providers Care Nursing Department Chairperson Name Role Phone Vanita Churchill APRN Primary Care Provider Reason for Referral * Diagnostic Test (Routine) - New Request Specialty Diagnoses / Procedures Referred By Emy castillo Referred To Contact Diagnoses PAD (peripheral artery disease) Procedures MARIYA, legs, multiple levels Janene Ortega APRN [facility] [place] [address] [facility] Vascular Lab [address] [place] [phone] Referral ID Status Reason Start Date Expiration Date Visits Requested Visits Authorized [id number] New Request Specialty Service Requested 07/23/2024 07/23/2025 1 1 * Diagnostic Test (Routine) - New Request Specialty Diagnoses / Procedures Referred By Emy castillo Referred To Contact Diagnoses Carotid stenosis, asymptomatic, bilateral Procedures Carotid Duplex, Bilateral Janene Ortega APRN [facility] [place] [address] [facility] Vascular Lab [address] [place] [address] Referral ID Status Reason Start Date Expiration Date Visits Requested Visits Authorized [id number] New Request Specialty Service Requested 07/23/2024 07/23/2025 1 1 Encounter Details Date Type Department Care Team (Late st Contact Info) Description 07/19/2024 2:30 PM EDT Office Visit [place] [address] Janene Ortega APRN [facility] [place] [address] PAD (peripheral artery disease); Carotid stenosis, asymptomatic, bilateral Social History Tobacco Use Types Packs/Day Years Used Date Smoking Tobacco: Former Cigarettes 2 30 1 12/21/1973 - 10/21/2004 Smokeless Tobacco: Never Alcohol Use Standard Drinks/Week Comments Yes 0 (1 standard drink = 0.6 oz pur e alcohol) [facility] Inpatient Questions Answer Date Recorded Does [...] Pulse 87 07/19/2024 2:04 PM EDT Temperature - - Respiratory Rate - - Oxygen Saturation 97% 07/19/2024 2:02 PM EDT Inhaled Oxygen Concentration - - Weight 74.4 kg (164 lb) 07/19/2024 2:02 PM EDT Height 163.8 cm (5' 4.5) 07/19/2024 2:02 PM EDT Body Mass Index 27.72 07/19/2024 2:02 PM EDT documented in this encounter Progress Notes * Janene Ortega, DIETITIAN CHIEF - 07/19/2024 2:30 PM EDT Vascular Follow-Up Reason for Visit: Carl Mehta is a 73 y.o. female presenting for carotid stenosis, PAD. HPI: 73 y.o. female with PMH: HTN, HLD, RA, COPD, CHEMA, GERD, macular degeneration who is here for follow-up evaluation of her carotid stenosis and PAD. She has h/o L iliofemoral endarterectomy, B CIAstent placement (8x38mm BE) for short distance claudication in 2016 and more recently R CEA for asymptomatic stenosis in May 2019. Ms. Mehta presents to clinic for PAD and carotid artery stenosis routine follow up. She reports BLE fatigue after walking, no pain. This started a couple months ago. Denies typical claudication, rest pain, tissue loss. Ms. Mehta denies any typical signs or symptoms of CVA/TIA including: monocular vision loss, facial droop, garbled speech, unilateral numbness/weakness in extremity. She started getting dizzy spells in late 2022, and 1 episode with LOC in 05/2024 where she was brought to the ED [facility] where stroke was r/u but she did have afib. She had referrals to pulmonology (new dx asthma) and cardiology. She takes a OTC migraine medication for sharp pain in her yarsani. She denies CP. She has SOB at baseline, which has improved since her AVR in 02/2023. She is compliant with her daily medicine regimen including ASA and statin. She has a history of cigarette use, quit in 2003. Vascular Procedures: 2017: L iliofem endart, B TRE stent (8x38mm BE) 05/2019: R CEA for asymptomatic stenosis Atherosclerotic Risk Factors: (n) DM (y) HTN (n) CAD (n) CHF (y) Hyperlipidemia (n) CVA reports that she quit smoking about 17 years ago. Her smoking use included cigarettes. She has a 60.00 pack-year smoking history. She has never used smokeless tobacco. Problem List: Patient Active Problem List Diagnosis Code CHEMA (obstructive sleep apnea) G47.33 GERD (gastroesophageal reflux disease) K21.9 Hyperpiesia I10 Hypercholesteremia E78.00 Rheumatoid arthritis(714.0) M06.9 Depression F32.A COPD (chronic obstructive pulmonary disease) J44.9 Macular degeneration H35.30 IBS (irritable bowel syndrome) K58.9 Hypothyroidism E03.9 Asthma J45.909 Claudication in peripheral vascular disease I73.9 Nonrheumatic aortic valve stenosis I35.0 Greater trochanteric bursitis M70.60 Bilateral carotid artery stenosis I65.23 Cervical radiculopathy M54.12 Medications: Current Outpatient Medications on File Prior to Visit Medication Sig Dispense Refill metoprolol succinate XL (Toprol-XL) 25 mg ER 24 hr tablet Take 1 tablet by mouth daily. 90 tablet 2 amLODIPine (Norvasc) 10 mg tablet Take 10 mg by mouth daily. citalopram (CeleXA) 20 mg tablet Take 20 mg by mouth daily. potassium chloride ER (Klor-Con, K-Tab) 10 mEq ER tablet Take 10 mEq by mouth daily. losartan (Cozaar) 25 mg tablet Take 25 mg by mouth daily. nystatin (Mycostatin) Cream Three times a day Flovent Diskus 100 mcg/actuation Disk with Device 2 puffs, Inhale, BID, # 60 EA, 0 Refill(s) cyanocobalamin, vitamin B-12, (Vitamin B-12) 500 mcg tablet Take 500 mcg by mouth three times a week (Mon, Weds, Fri). riboflavin, Vitamin B2, (Vitamin B2) 100 mg tablet Take 400 mg by mouth every morning. acetaminophen (Tylenol) 500 mg tablet Take 2 tablets by mouth every 6 hours as needed for Pain. omeprazole (PriLOSEC) [address] capsule TAKE 1 CAPSULE BY MOUTH 30 MINUTES BEFORE EVENING MEAL levothyroxine (Synthroid) 75 mcg Tablet nystatin (MYCOSTATIN) Powder Apply topically 4 times daily. buPROPion SR (Wellbutrin SR) 150 mg tablet sustained-release 12 hr Take by mouth. albuterol 90 mcg/actuation HFA Aerosol Inhaler Inhale [...] eye 2 times daily. FOLIC ACID ORAL hydroCHLOROthiazide (Hydrodiuril) 12.5 mg tablet Take 2 tablets by mouth daily. (Patient not taking: Reported on 07/19/2024) 180 tablet 3 diclofenac (VOLTAREN) 1 % Gel Apply topically. No current facility-administered medications on file prior to visit. Allergies: Allergies Allergen Reactions Latex Itching and Rash Noel Butter Glycerin Petrolatum,White Phenylephrine Shark Liver Oil Kaopectate [Bismuth Subsalicylate] Other (See Comments) Rectal Bleeding Lisinopril Other (See Comments) coughing Mineral Oil Hemorrhoid Cream [Tissue Resp Fact-Shark Fadumo Oil] Other (See Comments) Bleeding ROS Negative except as noted in HPI. Physical Exam: BP (!) 169/91 (BP Location (NBP): Right arm, Patient Position: Sitting) Pulse 87 Ht 163.8 cm (5' 4.5) Wt 74.4 kg (164 lb) SpO2 97% BMI 27.72 kg/m?? Physical Exam GEN: Alert, appeared stated [...] 2/2 DP 0/2 0/2 PT 0/2 0/2 Vascular Studies Recent Results (from the past 72 hour(s)) MARIYA, legs, multiple levels Result Value Ref Range VB Text Report Department: Vascular Surgery Lab Patient: [id number] (CARL MEHTA) CPT: 18985 Referring Physician: STEPHEN EDUARDO Indications: PAD Diabetes mellitus: No Findings: Right Pressure (mm Hg) MARIYA Waveform Brachial Artery 165 Dorsalis Pedis (Ankle) Artery 129 0.77 Biphasic Posterior Tibial (Ankle) Artery 116 0.69 Biphasic Left Pressure (mm Hg) MARIYA Waveform Brachial Artery 168 Dorsalis Pedis (Ankle) Artery 104 0.62 [place]-Biphasic Posterior Tibial (Ankle) Artery 101 0.60 [place]-Biphasic Interpretation: RIGHT: Mild lower extremity arterial occlusive disease. No significant change compared to previous exam on 07/17/23. LEFT: Moderate lower extremity arterial o cclusive disease. No significant change compared to previous exam on 07/17/23. Previous ABIs with change from previous value: Date RIGHT DP RIGHT PT RT GR TOE RT Sec TOE 0.48 0.64 ---- ---- 0.94(+.46) 0.91(+.27) ---- ---- 0.85(-.09) 0.90(-.01) ---- ---- 0.89(+.04) 0.91(+.01) ---- ---- 0.92(+.03) 0.85(-.06) ---- ---- 0.86(-.06) 0.86(+.01) ---- ---- 0.85(-.01) 0.89(+.03) ---- ---- 0.76(-.09) 0.80(-.09) ---- ---- Current 0.77(+.01) 0.69(-.11) ---- ---- Date LEFT DP LEFT PT LT GR TOE LT Sec TOE 0.48 0.68 ---- ---- 0.80(+.32) 0.84(+.16) ---- ---- 0.80( .00) 0.85(+.01) ---- ---- 0.87(+.07) 0.89(+.04) ---- ---- 0.88(+.01) 0.88(-.01) ---- ---- 0.64(-.24) 0.70(-.18) -- -- ---- 0.70(+.06) 0.69(-.01) ---- ---- 0.57(-.13) 0.55(-.14) ---- ---- Current 0.62(+.05) 0.60(+.05) ---- ---- VB Text Report End of Report Carotid Duplex, Bilateral Result Value Ref Range VB Text Report Department: Vascular Surgery Lab Patient: [id number] ([facility]) CPT: 99574 Referring Physician: STEPHEN EDUARDO Indications: History of right CEA and left ICA stenosis ? change Findings: ICA Proximal, Right PSV (cm/s): 85 EDV (cm/s): 17 ICA/CCA: 1.1 Plaque Structure: Echogenic Plaque Surface: Smooth %Stenosis: <15% ICA Distal, Right PSV (cm/s): 71 EDV (cm/s): 16 ICA/CCA: 0.9 CCA Distal, Right PSV (cm/s): 77 EDV (cm/s): 12 %Stenosis: <50% CCA Proximal, Right PSV (cm/s): 92 EDV (cm/s): 12 External Carotid Artery, Right PSV (cm/s): 113 EDV (cm/s): 6 %Stenosis: <50% Vertebral, Right PSV (cm/s): 86 EDV (cm/s): 17 Direction of Flow: Antegrade ICA Proximal, Left PSV (cm/s): 115 EDV (cm/s): 22 ICA/CCA: 1.9 Plaque Structure: Echogenic Plaque Surface: Irregular %Stenos is: 16-49% ICA Distal, Left PSV (cm/s): 62 EDV (cm/s): 14 ICA/CCA: 1.0 CCA Distal, Left PSV (cm/s): 62 EDV (cm/s): 12 CCA Middle, Left %Stenosis: <50% CCA Proximal, Left PSV (cm/s): 76 EDV (cm/s): 15 External Carotid Artery, Left PSV (cm/s): 204 EDV (cm/s): 13 %Stenosis: >50% Vertebral, Left PSV (cm/s): 60 EDV (cm/s): 16 Direction of Flow: Antegrade [...] is bulky irregular plaque in the proximal i nternal carotid artery causing 16-49% stenosis when compared to the more distal internal carotid artery. The bifurcation level is in the mid neck. No significant change compared to previous exam on 07/17/23. Vertebral Artery Data: Patent vertebral arteries with normal antegrade Doppler waveforms and velocities bilaterally. VB Text Report End of Report Assessment and Plan: Carl Mccormickclair 73 y.o. female with PMH: HTN, HLD, RA, COPD, CHEMA, GERD, macular degeneration who is here for follow-up evaluation of her carotid stenosis and PAD. Carotid artery stenosis: R ICA <15% stenosis and L ICA 16-49%. Patient remains asymptomatic. Recommend continued medical management at this time. Continue ASA, statin Recommend tight control of co-morbidities and continued abstinence from smoking. Follow-up in the clinic in 1 year with repeat carotid duplex. Instructed to call the clinic with any concerns prior to next appointment. PAD: RLE mild, LLE moderate arterial disease, no change from prior study. Patient denies claudication, rest pain, tissue loss. Follow up in 1 year with repeat MARIYA. Plan: - Follow-up in 1 year with ABIs and carotid duplex - Continue aspirin, statin. - Encourage continued smoking cessation. - Instructed to call 911 for any s/sx of TIA/CVA including unilateral extremity weakness, facial droop, acute change in vision or speech. - Instructed to call 911 for any s/sx of CLI including unilateral increased pain, decreased sensation or temperature, or tissue loss. Janene Ortega APRN Department of Vascular Surgery documented in this encounter Plan of Treatment Upcoming Encounters Date Type Department Care Team (Late st Contact Info) Description 02/06/2025 2:40 PM EDT Office Visit Cardiology at [address] [phone] Rigoberto Diaz MD [facility] [address] Scheduled Procedures Name Priority Associated Diagnoses Date/Ti me EGD, UPPER GI ENDOSCOPY (WRV U 2.09) Incontinence of feces, unspecified fecal incontinence type Dysphagia, unspecified type COLONOSCOPY, DIAGNOSTIC (WRV U 3.26) Incontinence of feces, unspecified fecal incontinence type Dysphagia, unspecified type documented as of this encounter Visit Diagnoses Diagnosis PAD (peripheral artery disease) Peripheral vascular disease, unspecified Carotid stenosis, asymptomatic, bilateral documented in this encounter Care Teams Nursing Department Chairperson Relationship Specialty Start Date End Date Vanita Churchill APRN [address] [place] [address] PCP - General Family Medicine 07/19/24 documented as of this encounter
--- OUTSIDE RECORDS SUMMARY | 2024-08-12 07:34 | XMS_ITS | Encounter Summary ---
[place] [address] Care Team Providers Care Fruit Packer Name Role Phone Vanita Churchill APRN Primary Care Provider [phone] Reason for Referral * Diagnostic Test (Routine) - Closed Specialty Diagnoses / Procedures Referred By Emy t Referred To Contact Cardiology Diagnoses Severe aortic stenosis Procedures Echocardiogram Transthoracic Jassi Lantigua MD [facility] [address] [place] [address] [facility] [place] [address] Referral ID Status Reason Start Date Expiration Date V isits Requested Visits Authorized [id number] Closed Specialty Service Requested 02/23/2023 02/23/2024 1 1 Reason for Visit * Diagnostic Test (Routine) - Closed Specialty Diagnoses / Procedures Referred By Emy castillo Referred To Contact Cardiology Diagnoses Severe aortic stenosis Procedures Echocardiogram Transthoracic Jassi Lantigua MD [facility] [address] [place] [place] [address] [facility] [place] [address] Referral ID Status Reason Start Date Expiration Date V isits Requested Visits Authorized [id number] Closed Specialty Service Requested 02/23/2023 02/23/2024 1 1 Encounter Details Date Type Department Care Team (Latest Contact Info) Description 05/05/2023 11:49 AM EDT - 05/05/2023 11:59 PM EDT Hospital Encounter Non-Invasive [place] [phone] Edwige Nieves APRN [facility] [place] [address] Severe aortic stenosis Discharge Disposition: Home Social [...] 6 hours as needed for Pain. 03/08/2023 omeprazole (PriLOSEC) [address] capsule TAKE 1 CAPSULE BY MOUTH 30 MINUTES BEFORE EVENING MEAL 01/17/2023 levothyroxine (Synthroid) 75 mcg Tablet 10/08/2022 nystatin (MYCOSTATIN) Powder Apply topically 4 times daily. buPROPion SR (Wellbutrin SR) 150 mg tablet sustained-release 12 hr Take by mouth. 05/20/2020 albuterol 90 mcg/actuation HFA Aerosol Inhaler Inhale [...] 2 times daily. FOLIC ACID ORAL 10/12/2010 hydroCHLOROthiazide (Hydrodiuril) 12.5 mg tabletIndications:ASCVD (arteriosclerotic cardiovascular disease),Essential hypertension Take 2 tablets by mouth daily. 180 tablet 3 02/17/2023 diclofenac (VOLTAREN) 1 % Gel Apply topically. hydrocortisone 1 % Cream Twice a day 05/20/2020 02/05/2024 oxygen-air delivery systems (HORIZON NASAL CPAP SYSTEM [facility]) Supply, See instructions, # 1 EA, 0 [...] PM EDT Office Visit Cardiology at [address] [place] [phone] Rigoberto Diaz MD [facility] [place] [address] Scheduled Procedures Name Priority Associated Diagnoses Date/Ti [...] PM EDT ? Echocardiogram Report Name: LINDSEY MEHTA ? Study Date: 05/05/2023 01:20 PM ? Patient Location: [address] [place] [address] : 1950 ? Height: 160 cm ? Account: [id number] Age: 72 yrs ? Weight: 77 kg Gender: Female ?BSA: 1.8 m2 Ordering Physician: EDWIGE NIEVES Referring Physician: JASSI LANTIGUA Performed By: Gianna Freedman RDCS Reason For Study: S/P TAVR Exam Location: [facility]. Interpretation Summary 1. Normal biventricular size [...] body of report for complete details. Procedure Complete-[id number]. Satisfactory quality. There is normal sinus rhythm. [...] Valenzuela MD - 05/05/2023 Echocardiogram Report Name: MEHTALINDSEY MURILLO Study Date: 301:20 PM Patient Location: [facility] : 1950 Height: 160 cm Account: [id number] Age: 72 yrs Weight: 77 kg Gender: Female BSA: 1.8 m2 Ordering Physician: EDWIGE NIEVES Referring Physician: JASSI LANTIGUA Performed By: Gianna Freedman RDCS Reason For Study: S/P TAVR Exam Location: [facility]. Interpretation Summary 1. Normal biventricular size [...] body of report for complete details. Procedure Complete-[id number]. Satisfactory quality. There is normal sinus rhythm. [...] disorders documented in this encounter Care Teams Fruit Packer Relationship Specialty Start Date End Date Vanita Churchill APRN PCP - General Family Medicine 02/27/19 07/18/24 documented as of this encounter
--- OUTSIDE RECORDS SUMMARY | 2024-08-12 07:34 | XMS_ITS | Encounter Summary ---
Author Organization [facility] Address [address] [place] [address] Care Team Providers Care Insurance Verifier Name Role Phone Unavailable Primary Care Provider Unavailabl e Encounter Details Date Type Department Care Team (Late st Contact Info) Description 02/03/2004 Results Only [facility] conversion [address] [place] [address] Paula Downey MD [address] [place] [address] Social History Tobacco Use Types Packs/Day Years Used Date Smoking Tobacco: Never Assessed Sex and Gender Information Value Date Recorded Sex Assigned at Not on file Gender Identity Not on file Sexual Orientation Not on file documented as of this encounter Plan of Treatment Not on file documented as of this encounter Procedures Procedure Name Priority Date/Time Associated Diagnosis Comments CYTOPATHOLOGY Routine 02/03/2004 0:00 EST documented in this encounter Results * CYTOPATHOLOGY (02/03/2004 0:00 EST) Pathology Report: CYTOPATHOLOGY REPORT Reports generated via electronic interface contain original data; however they are lacking the format of the original report. Caution should be taken when reading/interpreti ng unformatted reports. Name: ? CARL FIGUEREDO ? Accession #: ? [id number] : ? 1950 (Age: 53) ??F ?Collect Date: ? 02/03/2004 Location: ? [facility] ? Receive Date: ? 02/05/2004 Provider: ?PAULA DOWNEY MD Copy to: ? Specimen/Source: ?ThinPrep Pap Test, Cervix/Endocervix Last Menstrual Period: ? 1996 Hormonal/Contracep tive Status: ? Tubal ligation ? SPECIMEN ADEQUACY ? Satisfactory for Evaluation - transformation zone component present GENERAL CATEGORIZATION ? Negative for Intraepithelial Lesion or Malignancy ? Document reviewed and electronically signed by: ? MARITZA Mccauley(ASCP) ? Report Date: ??02/11/2004 07:53 End of Report CELY ACOSTA 02/03/2004 02/05/2004 Paula Downey MD PATHOLOGY ORDERABLES [facility] ACOSTA [address] [place] [address] documented in this encounter Visit Diagnoses Not on filedocumented in this encounter
--- OUTSIDE RECORDS SUMMARY | 2024-08-12 07:34 | XMS_ITS | Encounter Summary ---
Author Organization [facility] [place] [address] Care Team Providers Care Customs Examiner Name Role Phone KwesiVanita mix Omar SPARROW Primary Care Provider [phone] Reason for Visit * Reason Comments Medication Refill Encounter Details Date Type Department Care Team (Late st Contact Info) Description 03/15/2024 Refill Cardiology at [address] [address] Carlos De Luna PA [facility] [place] [address] Medication Refill Social History Tobacco Use Types Packs/Day Years Used Date Smoking Tobacco: Former Cigarettes 2 30 1 12/21/1973 - 10/21/2004 Smokeless Tobacco: Never Alcohol Use Standard Drinks/Week Comments Yes 0 (1 standard drink = 0.6 oz pur e alcohol) [facility] Inpatient Questions Answer Date Recorded Does [...] PM EDT Office Visit Cardiology at [address] [place] [address] Rigoberto Diaz MD [facility] [place] [address] Scheduled Procedures Name Priority Associated Diagnoses Date/Ti [...] hypertension documented in this encounter Care Teams Customs Examiner Relationship Specialty Start Date End Date Vanita Churchill, KYARA PCP - General Family Medicine 02/27/19 07/18/24 documented as of this encounter
--- OUTSIDE RECORDS SUMMARY | 2024-08-12 07:34 | XMS_ITS | Encounter Summary ---
Author [place] [address] Care Team Providers Care Textile Pin Worker Name Role Phone Kwesidominguez Vanita Dominguez SPARROW Primary Care Provider [phone] Encounter Details Date Type Department Care Team (Late st Contact Info) Description 05/05/2023 2:30 PM EDT Office Visit Cardiology at [address] [phone] S/P TAVR (transcatheter aortic valve replacement) Social History Tobacco Use Types Packs/Day Years Used Date Smoking Tobacco: Former Cigarettes 2 30 1 12/21/1973 - 10/21/2004 Smokeless Tobacco: Never Alcohol Use Standard Drinks/Week Comments Yes 0 (1 standard drink = 0.6 oz pur e alcohol) [facility] Inpatient Questions Answer Date Recorded Does Anyone [...] 2:40 PM EDT Office Visit Cardiology at [address] [place] [address] Rigoberto Diaz MD [facility] [place] [address] Scheduled Procedures Name Priority Associated Diagnoses Date/Ti me EGD, UPPER GI ENDOSCOPY (WRV U 2.09) Incontinence of feces, unspecified fecal incontinence type Dysphagia, unspecified type COLONOSCOPY, DIAGNOSTIC (WRV U 3.26) Incontinence of feces, unspecified fecal incontinence type Dysphagia, unspecified type documented as of this encounter Visit Diagnoses Diagnosis S/P TAVR (transcatheter aortic valve replacement) documented in this encounter Care Teams Textile Pin Worker Relationship Specialty Start Date End Date Vanita Churchill APRN PCP - General Family Medicine 02/27/19 07/18/24 documented as of this encounter
--- OUTSIDE RECORDS SUMMARY | 2024-08-12 07:34 | XMS_ITS | Encounter Summary ---
Author [facility] [place] [address] Care Team Providers Care Equipment Hire Manager Name Role Phone KwesiVanita mix Omar SPARROW Primary Care Provider [phone] Reason for Visit * Auth/Cert (Routine) Specialty Diagnoses / Procedures Referred By Emy castillo Referred To Contact Diagnoses Aortic stenosis Aortic stenosis Procedures ER Chong Mireles MD [facility] [address] [place] [address] [facility] Referral ID Status Reason Start Date Expiration Date Visits Re quested Visits Authorized [id number] 1 1 Encounter Details Date Type Department Care Team (Latest Contact Info) Description 03/08/2023 10:00 AM EDT - 03/08/2023 11:59 PM EDT Hospital Encounter [place] [phone] Discharge Disposition: Home Social History Tobacco Use Types Packs/Day Years Used Date Smoking Tobacco: Former Cigarettes 2 30 1 12/21/1973 - 10/21/2004 Smokeless Tobacco: Never Alcohol Use Standard Drinks/Week Comments Yes 0 (1 standard drink = 0.6 oz pur e alcohol) [facility] Inpatient Questions Answer Date Recorded Does [...] PM EDT Office Visit Cardiology at [address] [address] Rigoberto Diaz MD [facility] [address] [place] [address] Scheduled Procedures Name Priority Associated Diagnoses Date/Ti me EGD, UPPER GI ENDOSCOPY (WRV U 2.09) Incontinence of feces, unspecified fecal incontinence type Dysphagia, unspecified type COLONOSCOPY, DIAGNOSTIC (WRV U 3.26) Incontinence of feces, unspecified fecal incontinence type Dysphagia, unspecified type documented as of this encounter Procedures Procedure Name Priority Date/Time Associated Diagnosis Comments CHERELLEOPATCH 48 HRS-15 DAYS Routine 03/08/2023 10:01 AM EDT S/P TAVR (transcatheter aortic valve replacement) documented in this encounter Results * Ziopatch 48 Hrs-15 Days (03/08/2023 10:01 AM EDT) Anatomical Region Laterality Modality Other Narrative 03/28/2023 3:43 PM EDT Images from the original result were not included. [facility] ? Zio Patch Ambulatory Cardiac Event [...] tab. ??For patients accessing the study from [facility] (My Chart), click on the link or links found in the IMAGES area below the text of the report. ? Randy Chatman MD, FAHA, FACC Suhail Padilla APRN CARDIAC SERVICES OR DERABLES documented in this encounter Visit Diagnoses Not on filedocumented in this encounter Care Teams Equipment Hire Manager Relationship Specialty Start Date End Date Vanita Churchill APRN PCP - General Family Medicine 02/27/19 07/18/24 documented as of this encounter
--- OUTSIDE RECORDS SUMMARY | 2024-08-12 07:34 | XMS_ITS | Encounter Summary ---
Author Organization [facility] Address [address] [place] [address] Care Team Providers Care Oil Tanker Captain Name Role Phone Unavailable Primary Care Provider Unavailabl e Encounter Details Date Type Department Care Team (Late st Contact Info) Description 02/07/2005 Results Only [facility] conversion [address] [place] [address] Caitlyn Esquivel MD [address] [place], [place] [address] Social History Tobacco Use Types Packs/Day Years Used Date Smoking Tobacco: Never Assessed Sex and Gender Information Value Date Recorded Sex Assigned at Not on file Gender Identity Not on file Sexual Orientation Not on file documented as of this encounter Plan of Treatment Not on file documented as of this encounter Procedures Procedure Name Priority Date/Time Associated Diagnosis Comments CYTOPATHOLOGY Routine 02/07/2005 0:00 EST documented in this encounter Results * CYTOPATHOLOGY (02/07/2005 0:00 EST) Pathology Report: CYTOPATHOLOGY REPORT Reports generated via electronic interface contain original data; however they are lacking the format of the original report. Caution should be taken when reading/interpreti ng unformatted reports. Name: ? LINDSEY FIGUEREDO ? Accession #: ? [id number] : ? 1950 (Age: 54) ??F ?Collect Date: ? 02/07/2005 Location: ? [facility] ? Receive Date: ? 02/09/2005 Provider: ?CAITLYN ESQUIVEL MD Copy to: ? Specimen/Source: ?ThinPrep Pap Test, Cervix/Endocervix Last Menstrual Period: ? 10 years ago ? SPECIMEN ADEQUACY ? Satisfactory for Evaluation - transformation zone component present GENERAL CATEGORIZATION ? Negative for Intraepithelial Lesion or Malignancy INTERPRETATION ? Shift in xu present suggestive of bacterial vaginosis. ? Document reviewed and electronically signed by: ? MARITZA Felipe(ASCP) ? Report Date: ??02/11/2005 11:21 End of Report CELY ACOSTA 02/07/2005 02/09/2005 Caitlyn Esquivel MD PATHOLOGY ORDERABLES [facility] ACO[facility] [address] [place] [address] documented in this encounter Visit Diagnoses Not on filedocumented in this encounter
--- OUTSIDE RECORDS SUMMARY | 2024-08-12 07:34 | XMS_ITS | Encounter Summary ---
[place] [address] Care Team Providers Care Marine Surveyor Name Role Phone KwesiVanita mix Omar SPARROW Primary Care Provider [phone] Encounter Details Date Type Department Care Team (Late st Contact Info) Description 07/17/2023 8:00 AM EDT Tech Visit [place] [address] [place], [place] Stenosis of right carotid artery; PAD [...] PM EDT Office Visit Cardiology at [address] [place] [address] Rigoberto Diaz MD [facility] [address] [place] [address] Scheduled Procedures Name Priority Associated Diagnoses Date/Ti [...] Text Report Department: Vascular Surgery Lab Patient: [id number] (LINDSEY MEHTA) CPT: [id number] Referring Physician: ELLA MARINO ?? Phone: Indications: [...] ? 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 Interpretation: RIGHT: Mild lower extremity arterial [...] EDT Ella Marino APRN VASCULAR ORDERABLES VASCUBASE * Carotid Duplex, Bilateral (07/17/2023 7:58 AM EDT) VB Text Report Department: Vascular Surgery Lab Patient: [id number] (LINDSEY MEHTA) CPT: [id number] Referring Physician: ELLA MARINO ?? Phone: Indications: [...] unspecified documented in this encounter Care Teams Marine Surveyor Relationship Specialty Start Date End Date Vanita Churchill APRN PCP - General Family Medicine 02/27/19 07/18/24 documented as of this encounter
--- OUTSIDE RECORDS SUMMARY | 2024-08-12 07:34 | XMS_ITS | Encounter Summary ---
[place] [address] Care Team Providers Care Moid Middle School Teacher Name Role Phone Vanita Churchill Omar SPARROW Primary Care Provider [phone] Encounter Details Date Type Department Care Team [...] PM EDT Office Visit Cardiology at [address] [address] Rigoberto Diaz MD [facility] [place] [address] Scheduled Procedures Name Priority Associated Diagnoses Date/Ti me EGD, UPPER GI ENDOSCOPY (WRV U 2.09) Incontinence of feces, unspecified fecal incontinence type Dysphagia, unspecified type COLONOSCOPY, DIAGNOSTIC (WRV U 3.26) Incontinence of feces, unspecified fecal incontinence type Dysphagia, unspecified type documented as of this encounter Visit Diagnoses Not on filedocumented in this encounter Care Teams [employer] Middle [employer] Teacher Relationship Specialty Start Date End Date Vanita Churchill APRN PCP - General Family Medicine 02/27/19 07/18/24 documented as of this encounter
--- OUTSIDE RECORDS SUMMARY | 2024-08-12 07:34 | XMS_ITS | Encounter Summary ---
Author Organization [facility] [place] [address] Care Team Providers Care Enchilada Maker Name Role Phone Vanita Churchill Omar SPARROW Primary Care Provider [phone] Reason for Visit * Reason Comments Medication Refill Encounter Details Date Type Department Care Team (Late st Contact Info) Description 03/25/2024 Refill Cardiology at [address] [address] Anita Smith PA [facility] [address] [place] [address] Medication Refill Social History Tobacco Use Types Packs/Day Years Used Date Smoking Tobacco: Former Cigarettes 2 30 1 12/21/1973 - 10/21/2004 Smokeless Tobacco: Never Alcohol Use Standard Drinks/Week Comments Yes 0 (1 standard drink = 0.6 oz pur e alcohol) [facility] Inpatient Questions Answer Date Recorded Does [...] 2:40 PM EDT Office Visit Cardiology at [address] [place] [address] Rigoberto Diaz MD [facility] [place] [address] Scheduled Procedures Name Priority Associated Diagnoses Date/Ti me EGD, UPPER GI ENDOSCOPY (WRV U 2.09) Incontinence of feces, unspecified fecal incontinence type Dysphagia, unspecified type COLONOSCOPY, DIAGNOSTIC (WRV U 3.26) Incontinence of feces, unspecified fecal incontinence type Dysphagia, unspecified type documented as of this encounter Visit Diagnoses Diagnosis ASCVD (arteriosclerotic cardiovascular disease) Unspecified cardiovascular disease documented in this encounter Care Teams Enchilada Maker Relationship Specialty Start Date End Date Vanita Churchill, KYARA PCP - General Family Medicine 02/27/19 07/18/24 documented as of this encounter
--- OUTSIDE RECORDS SUMMARY | 2024-08-12 07:34 | XMS_ITS | Encounter Summary ---
[place] [address] Care Team Providers Care Phlebotomy Specialist Name Role Phone Vanita Churchill Omar SPARROW Primary Care Provider [phone] Encounter Details Date Type Department Care Team (Late st Contact Info) Description 03/24/2023 Refill Cardiology at [address] [phone] Mane Ayala, RN Social History Tobacco Use Types Packs/Day Years Used Date Smoking Tobacco: Former Cigarettes 2 30 1 12/21/1973 - 10/21/2004 Smokeless Tobacco: Never Alcohol Use Standard Drinks/Week Comments Yes 0 (1 standard drink = 0.6 oz pur e alcohol) [facility] Inpatient Questions Answer Date Recorded Does Anyone [...] prescribed Metoprolol be re- routed to the [facility]. Will need a 90 day supply to comply with their requirements. Last discharge summary dated 03/08/2023. Scheduled for formal follow up 05/05/2023 post TAVR. Importantly feeling very well since her TAVR procedure. Reports very active in Cardiac Rehabilitation. Very busy and very happy. Pleased with her outcomes. Congratulated patient on her efforts. Timo Ayala, hand paster Team Nurse [facility] Ambulatory Cardiology documented in this encounter Plan of Treatment Upcoming Encounters Date Type Department Care Team (Late st Contact Info) Description 02/06/2025 2:40 PM EDT Office Visit Cardiology at [address] [place] [address] Rigoberto Diaz MD [facility] [place] [address] Scheduled Procedures Name Priority Associated Diagnoses Date/Ti me EGD, UPPER GI ENDOSCOPY (WRV U 2.09) Incontinence of feces, unspecified fecal incontinence type Dysphagia, unspecified type COLONOSCOPY, DIAGNOSTIC (WRV U 3.26) Incontinence of feces, unspecified fecal incontinence type Dysphagia, unspecified type documented as of this encounter Visit Diagnoses Not on filedocumented in this encounter Care Teams Phlebotomy Specialist Relationship Specialty Start Date End Date Vanita Churchill, KYARA PCP - General Family Medicine 02/27/19 07/18/24 documented as of this encounter
--- OUTSIDE RECORDS SUMMARY | 2024-08-12 07:34 | XMS_ITS | Encounter Summary ---
Author Organization [facility] [place] [address] Care Team Providers Care Methods Specialist Name Role Phone Kerline Vanita Nelson APRN Primary Care Provider [phone] Reason for Referral * Diagnostic Test (Routine) - Closed Specialty Diagnoses / Procedures Referred By Emy castillo Referred To Contact Sleep Center Diagnoses CHEMA treated with BiPAP Difficulty with BiPAP use Procedures Sleep Study with Pap Titration Sleep Study with Pap Titration Alley Johnson APRN [facility] [place] [address] [facility] Sleep Medicine [address] [place] [address] Referral ID Status Reason Start Date Expiration Date V isits Requested Visits Authorized [id number] Closed Specialty Service Requested 11/23/2023 11/23/2024 1 1 Encounter Details Date Type Department Care Team (Late Contact Info) Description 11/23/2023 1:00 PM EST Office Visit Sleep Center at [facility] [address] [place] [address] Alley Johnson APRN [facility] [place] [address] CHEMA treated with BiPAP (Primary Dx); Difficulty [...] study --Don't use SoClean or another CPAP rack cleaner with any CPAP or BPAP machine --Consider the PadACheek or another cloth mask liner for comfort or bothersome mask leak: for information, call [phone] or go to www.WordStream --If not able to use BPAP, practice [...] drive if drowsy; if drowsy while driving, crop puller to nap or rest --Follow-up: TBD [...] continues below. Sleep Study History: 02/07/2008 at [facility], from Dr. Robbins's note: AHI: 28/hr, supine [...] unclear significance. 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 to bulb grower, thinks it was medication; cardiology found lack [...] back to [employer], small; Didn't like [employer] FFM, small frame, small cushion; demo provided to her in 2019 visit Didn't like the Airtouch F20, small as irritating nasal bridge,previous mask was [employer] Quattro butit left a cortney on her nose Chin strap: No, chin strap was tried in the past but she opened her mouth anyway HCC: [facility] to get machine (that ofc is [...] AM 10/11/2022 11:52 AM 11/23/2023 12:26 PM [facility] [place] [facility] 3 (Low Risk) 4 (Low Risk) [...] liner to reduce/eliminate. Supplies received regularly from [facility]. BPAP titration study with significant weight loss [...] study --Don't use SoClean or another CPAP rack cleaner with any CPAP or BPAP machine --Consider the PadACheek or another cloth mask liner for comfort or bothersome mask leak: for information, call [phone] or go to www.NearWoo.Descomplica --If not able to use BPAP, practice [...] drive if drowsy; if drowsy while driving, crop puller to nap or rest --Follow-up: TBD [...] PM EDT Office Visit Cardiology at [address] [place] [address] Rigoberto Diaz MD [facility] [place] [address] Scheduled Orders Name Type Priority Associated Diagnoses [...] use documented in this encounter Care Teams Methods Specialist Relationship Specialty Start Date End Date Vanita Churchill APRN PCP - General Family Medicine 02/27/19 07/18/24 documented as of this encounter
--- OUTSIDE RECORDS SUMMARY | 2024-08-12 07:34 | XMS_ITS | Encounter Summary ---
[place] [address] Care Team Providers Care Spaghetti Machine Operator Name Role Phone KwesiVanita mix Omar SPARROW Primary Care Provider [phone] Reason for Visit * Reason Onset Date Comments Pre Procedure Call 12/12/2023 Colonoscopy & Endoscopy Clearance Encounter Details Date Type Department Care Team (Late st Contact Info) Description 12/12/2023 Telephone Cardiology at [address] [phone] Zhanna Moser RN Pre Procedure Call (Colonoscopy & Endoscopy Clearance) Social History Tobacco Use Types Packs/Day Years Used Date Smoking Tobacco: Former Cigarettes 2 30 1 12/21/1973 - 10/21/2004 Smokeless Tobacco: Never Alcohol Use Standard Drinks/Week Comments Yes 0 (1 standard drink = 0.6 oz pur e alcohol) [facility] Inpatient Questions Answer Date Recorded Does Anyone [...] signed, and we are sending it to [place]. -Zhanna Moser RN * Telephone Encounter - [...] her with Dr. Zavala's clinic number in [place]. -Zhanna Moser RN * Telephone Encounter - Zhanna Moser RN - 12/12/2023 4:14 PM EST Lindsey called, stating that she needs a letter sent to [facility] for cardiac clearance for a colonoscopy and upper endoscopy. It should be faxed to: [facility] ATTN Maribeth Camacho APRN. -Zhanna Moser RN documented in this encounter Plan of Treatment Upcoming Encounters Date Type Department Care Team (Late st Contact Info) Description 02/06/2025 2:40 PM EDT Office Visit Cardiology at [address] [place] [address] Rigoberto Diaz MD [facility] [place] [address] Scheduled Procedures Name Priority Associated Diagnoses Date/Ti me EGD, UPPER GI ENDOSCOPY (WRV U 2.09) Incontinence of feces, unspecified fecal incontinence type Dysphagia, unspecified type COLONOSCOPY, DIAGNOSTIC (WRV U 3.26) Incontinence of feces, unspecified fecal incontinence type Dysphagia, unspecified type documented as of this encounter Visit Diagnoses Not on filedocumented in this encounter Care Teams Spaghetti Machine Operator Relationship Specialty Start Date End Date Vanita Churchill, BRAZER FURNACE PCP - General Family Medicine 02/27/19 07/18/24 documented as of this encounter
--- OUTSIDE RECORDS SUMMARY | 2024-08-12 07:34 | XMS_ITS | Encounter Summary ---
[facility] Address [facility] [place] [address] Care Team Providers Care Ultimate Hoops Referee Name Role Phone Vanita Churchill PAEDODONTIST Primary Care Provider [phone] Reason for Visit * Reason Comments Medical Clearance TAVR February 2023 Encounter Details Date Type Department Care Team (Late st Contact Info) Description 02/05/2024 3:20 PM EDT Office Visit Cardiology at [address] [phone] Rigoberto Diaz MD [facility] [address] [place] [address] Nonrheumatic aortic valve stenosis; Hyperpiesia Social History Tobacco Use Types Packs/Day Years Used Date Smoking Tobacco: Former Cigarettes 2 30 1 12/21/1973 - 10/21/2004 Smokeless Tobacco: Never Alcohol Use Standard Drinks/Week Comments Yes 0 (1 standard drink = 0.6 oz pur e alcohol) [facility] Inpatient Questions Answer Date Recorded Does [...] PM EDT Office Visit Cardiology at [address] [place] [address] Rigoberto Diaz MD [facility] [place] [address] Scheduled Procedures Name Priority Associated Diagnoses Date/Ti [...] hypertension documented in this encounter Care Teams Ultimate Hoops Referee Relationship Specialty Start Date End Date Vanita Churchill APRN PCP - General Family Medicine 02/27/19 07/18/24 documented as of this encounter
--- OUTSIDE RECORDS SUMMARY | 2024-08-12 07:34 | XMS_ITS | Encounter Summary ---
Author Organization [facility] Address [address] [place] [address] Care Team Providers Care Corporate Account Executive Name Role Phone Unknown, Provider Primary Care Provider Encounter Details Date Type Department Care Team (Late st Contact Info) Description 08/26/2013 Results Only [facility] Laboratory Services - [facility] ([facility] [address], [place] [id number] Demetra Blankenship, [facility] [address] [place] [address] Social History Tobacco Use Types Packs/Day Years Used Date Smoking Tobacco: Never Assessed Sex and Gender Information Value Date Recorded Sex Assigned at Not on file Gender Identity Not on file Sexual Orientation Not on file documented as of this encounter Plan of Treatment Not on file documented as of this encounter Procedures Procedure Name Priority Date/Time Associated Diagnosis Comments PAP TEST- RESULT ONLY Routine 08/26/2013 0:00 EDT documented in this encounter Results * PAP TEST- RESULT ONLY (08/26/2013 0:00 EDT) Pathology Report: CYTOPATHOLOGY REPORT Reports generated via electronic interface contain original data; however they are lacking the format of the original report. Caution should be taken when reading/interpreti ng unformatted reports. Name: ? LINDSEY FIGUEREDO ? Accession #: ? [id number] : ? 1950 (Age: 62) ??F ?Collect Date: ? 08/26/2013 Location: ? [facility] ? Receive Date: ? 08/28/2013 Provider: ?DEMETRA BLANKENSHIP PROFESSOR OF RELIGIOUS STUDIES Copy to: ? Specimen/Source: ?Pap Test, Cervix/Endocervix, ThinPrep Imaging System with manual evaluation Last Menstrual Period: ? 19 years ago ? SPECIMEN ADEQUACY ? Satisfactory for Evaluation - transformation zone component present GENERAL CATEGORIZATION ? Negative for Intraepithelial Lesion or Malignancy ? Document reviewed and electronically signed by: ? MARITZA Pollard(ASCP) ? Report Date: ??09/02/2013 11:09 End of Report [facility] 08/26/2013 08/28/2013 Demetra Blankenship NP PATHOLOGY ORDERABLES [facility] [address] [place] [address] documented in this encounter Visit Diagnoses Not on filedocumented in this encounter Care Teams Corporate Account Executive Relationship Specialty Start Date End Date Unknown, Provider, PCP - General 03/26/12 documented as of this encounter
--- OUTSIDE RECORDS SUMMARY | 2024-08-12 07:34 | XMS_ITS | Encounter Summary ---
Author Organization [facility] Address [address] [place] [address] Care Team Providers Care Accounts Adjustable Clerk Name Role Phone Unavailable Primary Care Provider Unavailabl e Encounter Details Date Type Department Care Team (Late st Contact Info) Description 11/28/2008 Before PRISM Converted Visit (Maple) [facility] - Maple conversion [address] [place] [address] Demetra Blankenship, FLATWORK ASSEMBLER [facility] [address] [place] [address] Social History Tobacco Use Types [...] Priority Date/Time Associated Diagnosis Comments CYTOPATHOLOGY Routine 11/28/2008 0:00 EST documented in this encounter Results * CYTOPATHOLOGY (11/28/2008 0:00 EST) Pathology Report: CYTOPATHOLOGY REPORT ? Reports generated via electronic interface contain original data; ? however they are lacking the format of the original report. ? Caution should be taken when reading/interpreti ng unformatted reports. ? Name: ? FIGUEREDO, LINDSEY ? Accession #: ? [id number] ? : ? 1950 (Age: 57) ??F ?Collect Date: ? 11/28/2008 ? Location: ? [facility] ? Receive Date: ? 12/01/2008 ? Provider: ?DEMETRA BLANKENSHIP NP ? Copy to: ? Specimen/Source: ?Pap Test, Cervix/Endocervix, ThinPrep Imaging System ? with manual evaluation ? Last Menstrual Period: ? Hormonal/Contracep tive Status: ? Yes: E2/prog/test top hormone ? Other: ? HPVA - HPV testing requested if ASC-US on the current ThinPrep Pap test. ? SPECIMEN ADEQUACY ? Satisfactory for Evaluation ? - transformation zone component present ? GENERAL CATEGORIZATION ? Negative for Intraepithelial Lesion or Malignancy ? Document reviewed and electronically signed by: ? Mady Bhattlogg, CT(ASCP) ? Report Date: ??12/02/2008 13:22 ? End of Report ? [facility] 11/28/2008 12/01/2008 Demetra Blankenship FLATWORK ASSEMBLER PATHOLOGY ORDERABLES [facility] [address] [place] [address] documented in this encounter Visit Diagnoses Not on filedocumented in this encounter
--- OUTSIDE RECORDS SUMMARY | 2024-08-12 07:34 | XMS_ITS | Encounter Summary ---
Author Organization [facility] [place] [address] Care Team Providers Care Clinical Pharmacy Technician Name Role Phone Vanita Churchill Omar SPARROW Primary Care Provider [phone] Encounter Details Date Type Department Care Team (Late st Contact Info) Description 05/14/2024 Telephone Cardiology at [address] [address] Rigoberto Diaz MD [facility] [address] [address] Social History Tobacco Use Types Packs/Day Years [...] called because she had an echo at [facility] recently. Records requested. She would like to know what Dr Diaz thinks of her echo. Please call her @ [phone] documented in this encounter Plan of Treatment Upcoming Encounters Date Type Department Care Team (Late st Contact Info) Description 02/06/2025 2:40 PM EDT Office Visit Cardiology at [address] [place] [phone] Rigoberto Diaz MD [facility] [place] [address] Scheduled Procedures Name Priority Associated Diagnoses Date/Ti me EGD, UPPER GI ENDOSCOPY (WRV U 2.09) Incontinence of feces, unspecified fecal incontinence type Dysphagia, unspecified type COLONOSCOPY, DIAGNOSTIC (WRV U 3.26) Incontinence of feces, unspecified fecal incontinence type Dysphagia, unspecified type documented as of this encounter Visit Diagnoses Not on filedocumented in this encounter Care Teams Clinical Pharmacy Technician Relationship Specialty Start Date End Date Vanita Churchill APRN PCP - General Family Medicine 02/27/19 07/18/24 documented as of this encounter
--- OUTSIDE RECORDS SUMMARY | 2024-08-12 07:34 | XMS_ITS | Encounter Summary ---
Author [place] [address] Care Team Providers Care Stereotyper Helper Name Role Phone Vanita Churchill Omar SPARROW Primary Care Provider [phone] Encounter Details Date Type Department Care Team [...] 2:40 PM EDT Office Visit Cardiology at [address] [address] Rigoberto Diaz MD [facility] [place] [address] Scheduled Procedures Name Priority Associated Diagnoses Date/Ti me EGD, UPPER GI ENDOSCOPY (WRV U 2.09) Incontinence of feces, unspecified fecal incontinence type Dysphagia, unspecified type COLONOSCOPY, DIAGNOSTIC (WRV U 3.26) Incontinence of feces, unspecified fecal incontinence type Dysphagia, unspecified type documented as of this encounter Visit Diagnoses Not on filedocumented in this encounter Care Teams Stereotyper Helper Relationship Specialty Start Date End Date Vanita Churchill APRN PCP - General Family Medicine 02/27/19 07/18/24 documented as of this encounter
--- OUTSIDE RECORDS SUMMARY | 2024-08-12 07:34 | XMS_ITS | Encounter Summary ---
Author Organization [facility] Address [address] [place] [address] Care Team Providers Care Warp Tying Machine Tender Name Role Phone Unavailable Primary Care Provider Unavailabl e Encounter Details Date Type Department Care Team (Latest Contact Info) Description 03/22/2012 14:51 EDT - 03/22/2012 14:52 EDT Hospital Encounter [facility] - [address] [address] Dung Rodrigues, [address] [place] [id number] Discharge Disposition: Home or Self Care Social History Tobacco Use Types Packs/Day Years Used Date Smoking Tobacco: Never Assessed Sex and Gender Information Value Date Recorded Sex Assigned at Not on file Gender Identity Not on file Sexual Orientation Not on file documented as of this encounter Discharge Disposition Disposition Code Departure Means Destination Home or Self Care documented in this encounter Plan of Treatment Not on file documented as of this encounter Visit Diagnoses Not on filedocumented in this encounter
--- OUTSIDE RECORDS SUMMARY | 2024-08-12 07:35 | XMS_ITS | Encounter Summary ---
[place] [address] Care Team Providers Care Trimmer Helper Name Role Phone Kwesidominguez Vanita Dominguez SPARROW Primary Care Provider [phone] Reason for Visit * Auth/Cert (Routine) Specialty Diagnoses / Procedures Referred By Emy castillo Referred To Contact Diagnoses Aortic stenosis Aortic stenosis Procedures ER Chong Mireles MD [facility] [place] [address] [facility] Referral ID Status Reason Start Date Expiration Date Visits Re quested Visits Authorized [id number] 1 1 Encounter Details Date Type Department Care Team (Late st Contact Info) Description 03/07/2023 1:57 PM EDT [place] [phone] Goldie Franco MD [facility] [place] [address] Benoit Napier MD [facility] [place] [address] Anesthesia Record Procedure Summary Procedure Name Responsible [...] cephalic vein (lateral side of arm), right; ijet-[id number]-ryjkzg catheter system; Ultrasound Guidance; Yes - US [...] IV Line - Single Lumen 03/07/23; 1422; nfzf-yqw-mvhrkb catheter system; Anatomical Landmarks; 20 gauge; Salvador PANIAGUA; 03/08/23; 1221 03/07/23 1422 by Lubna Johnston MD 03/08/23 1221 by Addison Farias RN LDA Cath/EP Sheath 03/07/23; 1438; 6 Trinidadian (Fr); Right, Anterior; Wrist; Arterial 03/07/23 1438 by TuckerJamila mayfield 03/07/23 1513 by Jamila Tucker LDA Cath/EP Sheath 03/07/23; 1439; 6 Trinidadian (Fr); Left, Proximal, Anterior; Femoral; Arterial 03/07/23 1439 by TuckerBrie mayfieldlin 03/07/23 1509 by Jamila Tucker LDA Cath/EP Sheath 03/07/23; 1444; 6 Trinidadian (Fr); Proximal, Right, Anterior; Femoral; Venous 03/07/23 [...] Procedure Summary Date: 03/07/23 Room / Location: [facility] [address] [place] [address] CATH LABS Anesthesia Start: 1357 Anesthesia Stop: [...] All Anesthesia Providers: Anesthesiologist: Goldie Franco MD Grinder Machine Knife Setter: Lubna Johnston MD Vitals Value Taken Time BP 156/59 03/07/23 1540 Temp Pulse 80 03/07/23 1543 Resp 13 03/07/23 1543 SpO2 99 % 03/07/23 1543 Pain Level Vitals shown include unvalidated device data. Patient Location: PACU/[facility] Level of Consciousness: Awake and Alert Pain [...] Date ??? CHOLECYSTECTOMY ? ? PRG CATH [facility] CORONARY ART W/INJ FOR ANGIO W/R HEART CATH IMG S&I N/A 01/31/2023 CORONARY ANGIOGRAPHY; W RHC (WRVU 5.9) performed by Mike Fraser MD at [facility] CATH LABS ??? PRG X-RAY AORTA LEG ARTERIES N/A 08/15/2017 AORTOGRAPHY, ABD. + AYAAN. ILIOFEMORAL LE BY SERIALOGRAPHY S & I (WRVU 1.79) performed by Jake Montaño MD at [facility] MAIN OR ??? PRO COLONOSCOPY, DIAGNOSTIC 12/06/2012 COLONOSCOPY, DIAGNOSTIC performed by Mik Dumont MD at [facility] ENDOSCOPY ??? PRO LAPAROSCOPY REPAIR PARAESOPHAGEAL HERNIA INCL FUNDOPLASTY W/O MESH 02/18/2013 LAPAROSCOPIC PARAESOPHAGEAL HERNIA REPAIR W/FUNDOPLASTY, W/O MESH performed by Moncho Bowers MD at [facility] MAIN OR ??? PRO PLACE CATH FIRST ORDER ART, ABD/PELV 08/15/2017 CATHETER PLACEMENT, SELECTIVE FIRST ORDER IN ARTERIAL SYSTEM, EACH FIRST ORDER ABDOMINAL, PELVIC, OR LOWER EXTREMITY ARTERY BRANCH,WITHIN A VASCULAR FAMILY (WRVU 4.9) performed by Jake Montaño MD at [facility] MAIN OR ? ? PRO REVSC OPEN/PERCUTANEOUS ILIAC ART W STNT PLMT&ANGIO PATRICE VSL UNILAT Bilateral 08/15/2017 REVSC OPN\PRQ ILIAC ART W\STNT PLMT & ANGIOP SAME VSL (WRVU 10) performed by Jake Montaño MD at [facility] MAIN OR ??? PRO THROMBOENDARTECTMY ILIOFEMORAL Left 08/15/2017 @ENDARTERECTOMY, ILIOFEMORAL W OR W/O PATCH GRAFT (WRVU 19.86) performed by Jake Montaño MD at [facility] MAIN OR ??? PRO THROMBOENDARTECTMY NECK, NECK INCIS Right 06/10/2019 @ENDARTERECTOMY, CAROTID, VERTEBRAL,SUBCLAVIAN W\WO PATCH GRAFT (WRVU 21.16) performed by Jake Montaño MD at [facility] MAIN OR ??? PRO UPPER GI ENDOSCOPY, BIOPSY 12/06/2012 EGD WITH BIOPSY performed by Mik Dumont MD at [facility] ENDOSCOPY ??? TUBAL LIGATION Social History Tobacco [...] 2:40 PM EDT Office Visit Cardiology at [address] [place] [address] Rigoberto Diaz MD [facility] [place] [address] Scheduled Procedures Name Priority Associated Diagnoses Date/Ti [...] g documented in this encounter Care Teams Trimmer Helper Relationship Specialty Start Date End Date Vanita Churchill, [employer] SUPERVISOR PCP - General Family Medicine 02/27/19 07/18/24 documented as of this encounter
--- OUTSIDE RECORDS SUMMARY | 2024-08-12 07:35 | XMS_ITS | Encounter Summary ---
Author Organization [facility] [place] [address] Care Team Providers Care Field Crop Ii Farmworker Name Role Phone Vanita Churchill Omar SPARROW Primary Care Provider [phone] Reason for Referral * Home Health Care (Routine) - Closed Specialty Diagnoses / Procedures Referred By Contac t Referred To Contact Diagnoses S/P TAVR (transcatheter aortic valve replacement) Rahat Vargas MD [facility] [place] [address] [facility] & [address] [place] [address] Referral ID Status Reason Start Date Expiration Date V isits Requested Visits Authorized [id number] Closed Consult, Test & Treat 03/09/2023 09/05/2023 999 999 * Consultation (Routine) - Closed Specialty Diagnoses / Procedures Referred By Contac t Referred To Contact Diagnoses S/P TAVR (transcatheter aortic valve replacement) Rahat Vargas MD [facility] [place] [address] Cardiac Rehab, [facility] [address] [place] [address] Referral ID Status Reason Start Date Expiration Date V isits Requested Visits Authorized [id number] Closed Consult, Test & Treat Non DH PCP 03/08/2023 09/04/2023 36 36 * Diagnostic Test (Routine) - Closed Specialty Diagnoses / Procedures Referred By Contac t Referred To Contact Cardiology Diagnoses S/P TAVR (transcatheter aortic valve replacement) Procedures [facility] 48 Hrs-15 Days Suhail Padilla APRN [facility] [address] [place] [address] [facility] [place] [address] Referral ID Status Reason Start Date Expiration Date V isits Requested Visits Authorized [id number] Closed Specialty Service Requested 03/08/2023 03/07/2024 1 1 Reason for Visit * Auth/Cert (Routine) Specialty Diagnoses / Procedures Referred By Contac t Referred To Contact Diagnoses Aortic stenosis Aortic stenosis Procedures ER IPI Chong Campbell MD [facility] [address] [place] [address] [facility] Referral ID Status Reason Start Date Expiration Date Visits Re quested Visits Authorized [id number] 1 1 Encounter Details Date Type Department Care Team (Late st Contact Info) Description 03/01/2023 12:42 PM EDT - 03/08/2023 1:22 PM EDT Hospital Encounter Cardiac [place] [address] Chong Campbell MD [facility] [place] [address] Brandon Crowley MD [facility] [place] [address] Rahat Vargas MD [facility] [place] [address] S/P TAVR (transcatheter aortic valve replacement) (Primary [...] Patient Age: 72 y.o. Birthdate: 1950 Language: Ugandan Race: White Ethnicity: Not nor Admit Date: 03/01/2023 Discharge Date: 03/08/2023 Attending Physician: Rahat Vargas MD Follow-up Recommendations for Providers: ??? Please continue routine management of cardiovascular risk factors including blood pressure, lipids, glucose, etc. ??? Please note any medication changes. ??? Patient to follow up with PCP, Vanita Churchill APRN, or Primary Insulation Board Calender Operator, in ~ 7-10 days. ??? Patient to follow up with Psych Sales Specialist, Dr. Mike Torres, in 1 month with a chest x-ray, EKG, Echo, CBC, and CMP. ?? Hkkb-Yjkplj-la interval: After initial 30 day follow-up appointment , all TAVR patients will follow-up again in one year with an echo. Inpatient Provider Contact Information: [facility] Section of Cardiac Surgery [facility] [address] FAX [phone] Discharge Diagnoses (Hospital Problems) Primary Diagnoses: Aortic [...] Date ??? CHOLECYSTECTOMY ? ? PRG CATH [facility] CORONARY ART W/INJ FOR ANGIO W/R HEART CATH IMG S&I N/A 01/31/2023 CORONARY ANGIOGRAPHY; W RHC (WRVU 5.9) performed by Mike Torres MD at [facility] CATH LABS ??? PRG X-RAY AORTA LEG ARTERIES N/A 08/15/2017 AORTOGRAPHY, ABD. + AYAAN. ILIOFEMORAL LE BY SERIALOGRAPHY S & I (WRVU 1.79) performed by Jake Montaño MD at [facility] MAIN OR ??? PRO COLONOSCOPY, DIAGNOSTIC 12/06/2012 COLONOSCOPY, DIAGNOSTIC performed by Mik Dumont MD at [facility] ENDOSCOPY ??? PRO LAPAROSCOPY REPAIR PARAESOPHAGEAL HERNIA INCL FUNDOPLASTY W/O MESH 02/18/2013 LAPAROSCOPIC PARAESOPHAGEAL HERNIA REPAIR W/FUNDOPLASTY, W/O MESH performed by Moncho Bowers MD at [facility] MAIN OR ??? PRO PLACE CATH FIRST ORDER ART, ABD/PELV 08/15/2017 CATHETER PLACEMENT, SELECTIVE FIRST ORDER IN ARTERIAL SYSTEM, EACH FIRST ORDER ABDOMINAL, PELVIC, OR LOWER EXTREMITY ARTERY BRANCH,WITHIN A VASCULAR FAMILY (WRVU 4.9) performed by Jake Montaño MD at [facility] MAIN OR ? ? PRO REVSC OPEN/PERCUTANEOUS ILIAC ART W STNT PLMT&ANGIO PATRICE VSL UNILAT Bilateral 08/15/2017 REVSC OPN\PRQ ILIAC ART W\STNT PLMT & ANGIOP SAME VSL (WRVU 10) performed by Jake Montaño MD at [facility] MAIN OR ??? PRO THROMBOENDARTECTMY ILIOFEMORAL Left 08/15/2017 @ENDARTERECTOMY, ILIOFEMORAL W OR W/O PATCH GRAFT (WRVU 19.86) performed by Jake Montaño MD at [facility] MAIN OR ??? PRO THROMBOENDARTECTMY NECK, NECK INCIS Right 06/10/2019 @ENDARTERECTOMY, CAROTID, VERTEBRAL,SUBCLAVIAN W\WO PATCH GRAFT (WRVU 21.16) performed by Jake Montaño MD at [facility] MAIN OR ??? PRO UPPER GI ENDOSCOPY, BIOPSY 12/06/2012 EGD WITH BIOPSY performed by Mik Dumont MD at [facility] ENDOSCOPY ??? TUBAL LIGATION Prior To Admission Medications Facility-Administered Medications Prior to Admission Medication Dose Route Frequency Provider Last Rate Last Admin ??? mupirocin (Bactroban) 2 % ointment Topical (Top) BID Edwige Nieves, FINANCE PROFESSOR ??? sodium chloride 0.9 % (flush) (BD PosiFlush Normal Saline 0.9) flush 5 mL 5 mL Intravenous BID Edwige Nieves, FINANCE PROFESSOR ??? sodium chloride 0.9 % (flush) (BD PosiFlush Normal Saline 0.9) flush 5-20 mL 5-20 mL Intravenous Q1 Min PRN Edwige Nieves, FINANCE PROFESSOR ??? lidocaine (Xylocaine) 1% (10 mg/mL) injection 3 mg 0.3 mL Subcutaneous Once PRN Edwige Nieves,FINANCE PROFESSOR Medications Prior to Admission Medication Sig Dispense [...] TF TAVR Lindsey Deleon was admitted to [facility] on 03/01/2023 via the Cardiology Service for expedited TAVR workup and procedure in light of rapidly progressive symptoms. She was brought to the photofinishing laboratory worker 03/07/[address] Rahat Vargas and Mike [...] Wt 76.7 kg (169 lb 1.5 oz) GqZ967% BMI 29.96 kg/m?? Patient Vitals for the [...] if you have questions. Please call your Psych Sales Specialist's office if you have any discharge or drainage from your procedural sites. Your Psych Sales Specialist, Dr. Mike oTrres and/or the Director Speech Language may be reached at . Antibiotic prophylaxis: [...] Please refer to the card with the [place] [employer] Guidelines for more information. You have been provided with a copy of this card. Please refer to the [place] [employer] Guidelines for more information. Good [...] friends, go to a movie, go to yarsanism, etc. Heavy activities: No hunting, skiing, jogging, [...] should resume a low fat, low cholesterol, [place] [employer] Diet. Driving: No driving for 3 days. Shower/Bath: You may shower daily. No baths, soaking, or swimming for the first week. Wound care: Please remove your dressings 48 hours after your procedure. Wash the sites daily with soap and rinse well, pat dry. Assess for any signs of infection such as increased redness, pain, warmth or drainage. Please call your methods engineer's office if you have any discharge or drainage from your procedural sites. If there is a lot of swelling, apply tayla wraps during the day and remove at bedtime. Elevate your legs when you are sitting. Home oxygen therapy: N/A Follow up appointments: ??? Please schedule a follow-up appointment with your PCP, Vanita Churchill APRN, or Primary Insulation Board Calender Operator, in ~ 7-10 days. ??? You have a follow-up appointment with your Psych Sales Specialist, Dr. Mike Torres, in 1month with a chest x-ray, EKG, Echo, and labs prior to your appointment. ?? Rzyp-Mbqdnh-wi interval: After initial 30 day follow-up appointment [...] AM Alley Johnson APRN [facility] Arrive at: Refinery Operator Helper [facility] [address] [place] [phone] Future Orders Complete By Expires CBC (with Diff) [GZI790 Custom] 04/07/2023 (Approximate) 03/08/2024 Process Instructions: INCLUDES: WBC, RBC, Hgb, Hct, Platelets, RBC Indices and Differential Scheduling Instructions: Comments: Questions: Comprehensive metabolic panel (non-fasting) [LAB17 Custom] 04/07/2023 (Approximate) 03/08/2024 Process Instructions: INCLUDES: Calcium, T Protein, Albumin, AST, ALT, Alk Phos, T Bili, BUN, Creat, GFR, Glucose, Lytes. Scheduling Instructions: Comments: Questions: Echocardiogram Transthoracic [58584 CPT(R)] 04/07/2023 (Approximate) 03/08/2024 Process Instructions: Scheduling Instructions: Questions: Where will study be performed[place] [facility] [place] Does the patient have Congenital Heart Disease?: Does patient require sedation?: GA rationale: EKG 12 Lead [65625 CPT(R)] 04/07/2023 (Approximate) 03/08/2024 Process Instructions: Scheduling Instructions: Questions: Which location will this be performed?: [place] Is a rhythm strip needed?: No XR Chest PA & Lateral (Generic) [26517 53356 Custom] 04/07/2023 (Approximate) 03/08/2024 Process Instructions: Scheduling Instructions: Questions: Reason for exam and clinical history: s/p TF TAVR Clinical information / guzman questions for radiologist: Where will study be performed?: [facility] Radiology Portable exam?: Stat read required?: Date of injury if applicable: Requested Time: Referral to Cardiac Rehab [WJW432 Custom] As directed Process Instructions: If no progress note charted, please enter Clinical details in comments. Scheduling Instructions: Questions: My question or request is: TAVR- cardiac rehab at [facility] 48 Hrs-15 Days [MLG8019 CPT(R)] As directed Process Instructions: Scheduling Instructions: Comments: Questions: Does the patient have a pacemaker? If yes provide HI/LO settings: Apply for 7 or 14 days?: 14 Where will study be performed?: [facility] Discharge References/Attachments Transcatheter Aortic Valve Implantation (DIMAS): General Info (Ugandan) Transcatheter Aortic Valve Implantation (DIMAS): Pre-op (Ugandan) Transcatheter Aortic Valve Implantation (DIMAS): Post-op (Ugandan) Signed: RITA Lewis [facility] Section of Cardiac Surgery Date: 03/08/2023 CC: KYARA Plasencia [place]assim, [place] [address] documented in this encounter Discharge Instructions * Patient Instructions* Mary Molina PA - 03/08/2023 10:55 AM EDT TAVR Discharge Instructions: Call your doctor if: You have a fever of greater than 101 degrees, shaking chills, if you develop redness or drainage from your procedure sites, or if you have questions. Please call your Psych Sales Specialist's office if you have any discharge or drainage from your procedural sites. Your Psych Sales Specialist, Dr. Mike Torres and/or the Director Speech Language may be reached at . Antibiotic prophylaxis: [...] Please refer to the card with the [place] [employer] Guidelines for more information. You have been provided with a copy of this card. Please refer to the [place] [employer] Guidelines for more information. Good [...] friends, go to a movie, go to yarsanism, etc. Heavy activities: No hunting, skiing, jogging, [...] should resume a low fat, low cholesterol, [place] [employer] Diet. Driving: No driving for 3 days. Shower/Bath: You may shower daily. No baths, soaking, or swimming for the first week. Wound care: Please remove your dressings 48 hours after your procedure. Wash the sites daily with soap and rinse well, pat dry. Assess for any signs of infection such as increased redness, pain, warmth or drainage. Please call your methods engineer's office if you have any discharge or drainage from your procedural sites. If there is a lot of swelling, apply tayla wraps during the day and remove at bedtime. Elevate your legs when you are sitting. Home oxygen therapy: N/A Follow up appointments: Please schedule a follow-up appointment with your PCP, Vanita Churchill APRN, or Primary Insulation Board Calender Operator, in ~ 7-10 days. You have a follow-up appointment with your Psych Sales Specialist, Dr. Mike Torres, in 1 month with a chest x-ray, EKG, Echo, and labs prior to your appointment. Ojom-Fhxvqp-mt interval: After initial 30 day follow-up appointment , all TAVR patients will follow-up again in one year with an echo. * Attachments The following attachments cannot be sent through Care Everywhere. * Transcatheter Aortic Valve Implantation (DIMAS): General Info (Ugandan) * Transcatheter Aortic Valve Implantation (DIMAS): Pre-op (Ugandan) * Transcatheter Aortic Valve Implantation (DIMAS): Post-op (Ugandan) documented in this encounter Medications at Time [...] oxygen-air delivery systems ([employer]AL CPAP [employer] MIS) Supply, See instructions, # 1 EA, 0 [...] as of this encounter Progress Notes * Stoutenburg, Mary A, PA - 03/08/2023 8:32 AM EDT Cardiac Surgery Progress Note Lindsey Deleon is a 72 y.o. female with who is 1 Day Post-Op L TF TAVR. 24h Events: To photofinishing laboratory worker for TF TAVR RBBB and LAFB pre [...] 0600 and on the weekends please page [phone]. * Suhail Padilla, FINANCE PROFESSOR - 03/08/2023 7:52 AM EDT Images from [...] Blood Gas) No results for input(s): PHART, WTB5WPP, PO2ART, HTU8MLO, LACTATEVEN, WVI7IZU, PFRATIOART2 in the last 168 hours. VBG (Venous Blood Gas) No results for input(s): PHVEN, CCG3QHP, PO2VEN, WAZ0MGO, LACTATEVEN in the last 168 hours. Mixed Venous Sat No results for input(s): K8DNEG1 in the last 168 hours. Vitals Last [...] drainage 03/03/231999 Labs: Recent Labs 03/08/23 0413 03/07/23200903/07/23 0335 03/06/23 0402 03/05/23 0350 03/04/23 0517 WBC 11.5* -- 6.7 [...] -normal sinus rhythm. Right bundle branch block, NM 168 ms from 198ms, DNV347 ms from 144 ms Medications Scheduled Meds: [...] Suhail Padilla APRN Structural Heart Disease Pager [phone] * Cyn Soler - 03/07/2023 5:00 PM EDT Tissue Inserter Encounter Note Patient Name: Lindsey Deleon : [id number] MR#: [id number] Admit Date: 03/01/2023 12:42 PM Hospital Day 6 days Narrative: Initiated visit to follow up from yesterday. Kelly still in photofinishing laboratory worker recovery, 3 family members waiting in her [...] Suhail Padilla APRN Structural Heart Disease Pager [phone] * Suhail Padilla APRN - 03/07/2023 11:38 [...] Blood Gas) No results for input(s): PHART, HVB6RMV, PO2ART, NEX9GFF, LACTATEVEN, DUM5NGQ, PFRATIOART2 in the last 168 hours. VBG (Venous Blood Gas) No results for input(s): PHVEN, DYD5BIH, PO2VEN, UCG4UUB, LACTATEVEN in the last 168 hours. Mixed Venous Sat No results for input(s): P5GYMD8 in the last 168 hours. Vitals Last [...] streak formation;no drainage 03/03/231999 Labs: Recent Labs 03/07/2333403/06/2340103/05/2334903/04/2351603/03/23406 WBC 6.7 6.4 7.5 7.5 8.9 HGB 11.8 12.1 11.9 12.1 12.0 HCT 35.1* 35.5* 35.4* 36.6 37.2 PLATELET 241 258 228 254 258 MCV 96.4* 95.9* 99.2* 98.7* 100.5* Recent Labs 03/07/2333403/06/2340103/05/23 0350 03/04/2351603/03/23 040 NA 132* 132* 133* 132* 138 CL 99 95* 96* 95* 103 CO2 24 27 22 K 3.6 3.7 4.4 [...] status post TAVR for primary team management Suhailcelio Padilla APRN Structural Heart Disease Pager [phone] Associated attestation - Mike Torres MD - 03/07/2023 4:14 PM EDT Attending Addendum: The patient was seen and examined in conjunction with Mr Valerie APRN. My history, physical exam findings, assessment, and plan are reflected in that note. Lab and relevant imaging data was reviewed and the plan was communicated with the patient and available family. TAVR today. Mike Torres MD, [facility] Attending Insulation Board Calender Operator Pager [phone] * Brandon Crowley MD - 03/07/2023 7:05 AM EDT Images from the original note were not included. Inpatient Cardiology Progress Note Patient info: Name: Lindsey Deleon : 1950 PCP: Vanita Churchill APRN PCP phone number: [phone] Date of Admission: 03/01/2023 ( Hospital Day [...] 98.7* 100.5* Recent Labs 03/07/2333403/06/232 03/05/23 0350 03/04/2351603/03/23 040 NA 132* 132* 133* [...] in the last 7068 hours. Invalid input(s): AICWBVEYNYJ0C No results for input(s): POCGLU in the last 168 hours. Heme No results for input(s): LDH, HAPTOGLOBIN, URICACID in the last 168 hours. ABG (Arterial Blood Gas) No results found for: PHART, PO2ART, SVW7OPY, GHH0TMT Microbiology: Microbiology Results (Last 30 days) No [...] who have questions please contact the health resident care spec that requested your imaging first. Electronically signed by: Tello Moon MD, [facility] ([phone]), at 03/06/2023 8:49 AM Medications Scheduled Meds: [...] ?? Brandon Crowley MD, MALIK, FACC, FACP, [facility] Cardi[facility] Medicine * Tosha Flores RN - [...] Cyn Soler - 03/06/2023 1:00 PM EDT Tissue Inserter Encounter Note Patient Name: Lindsey Deleon : [id number] MR#: [id number] Admit Date: 03/01/2023 12:42 PM Hospital Day 5 days Narrative: Initiated visit on unit rounds. Ms. Deleon is sitting in chair beside bed with her son next to her. Shared some of her health hx and that she is headed for heart surgery tomorrow. [place] in [place] and . Close with his mother, they shared stories about their family, about cheondoism and their lives. Ms. Deleon is grateful [...] son. Time in Direct Care: 25min. Cyn Tomlni Ryder 03/06/2023 * Brandon Crowely MD - 03/06/2023 8:09 AM EDT Images from the original note were not included. Inpatient Cardiology Progress Note Patient info: Name: Lindsey Deleon : 1950 PCP: Vanita Churchill APRN PCP phone number: [phone] Date of Admission: 03/01/2023 ( Hospital Day [...] in the last 7068 hours. Invalid input(s): GEIRLLEPASO2C No results for input(s): POCGLU in the last 168 hours. Heme No results for input(s): LDH, HAPTOGLOBIN, URICACID in the last 168 hours. ABG (Arterial Blood Gas) No results found for: PHART, PO2ART, YSS8AFO, KCU7VHA Microbiology: Microbiology Results (Last 30 days) No [...] who have questions please contact the health resident care spec that requested your imaging first. Electronically signed by: Tello Moon MD, [facility] ([phone]), at 03/06/2023 8:49 AM Medications Scheduled Meds: [...] #Routine Diet: Daily Healthy Menu Choices/Cardiac diet [place] [place] NPO diet (Give Meds) [...] PCP: Vanita Churchill APRN PCP phone number: [phone] Date of Admission: 03/01/2023 ( Hospital Day [...] in the last 7068 hours. Invalid input(s): YTGUUOTLZTD0C No results for input(s): POCGLU in the last 168 hours. Heme No results for input(s): LDH, HAPTOGLOBIN, URICACID in the last 168 hours. ABG (Arterial Blood Gas) No results found for: PHART, PO2ART, GAE0SZC, OEI5HIF Microbiology: Microbiology Results (Last 30 days) No [...] #Routine Diet: Daily Healthy Menu Choices/Cardiac diet ([facility] [place] [place] NPO diet (Give Meds) DVT Prophylaxis: LMWH GI Prophylaxis: Pantoprazole Code Status: Attempt Cardiopulmonary Resuscitation - Inpatient Dispo: Pending clinical course Lang Leong MD Cardiology, M1-S1 (#9486) 03/05/23 Cardiology Staff Addendum Lindsey Deleon is [...] PCP: Vanita Churchill APRN PCP phone number: [phone] Date of Admission: 03/01/2023 ( Hospital Day [...] extremities spontaneously Psych: cooperative. Labs: Recent Labs 03/04/2351603/03/2340603/02/2340803/01/23 1648 WBC 7.5 8.9 8.8 7.4 HGB 12.1 12.0 11.0* 11.7 HCT 36.6 37.2 34.3* 36.2 PLATELET 254 258 250 276 MCV 98.7* 100.5* 101.5* 100.6* Recent Labs 03/04/2351603/03/2340603/02/23 04003/01/23 1648 NA 132* 138 138 140 [...] in the last 7068 hours. Invalid input(s): KTRNKEMPXEJ4P No results for input(s): POCGLU in the last 168 hours. Heme No results for input(s): LDH, HAPTOGLOBIN, URICACID in the last 168 hours. ABG (Arterial Blood Gas) No results found for: PHART, PO2ART, DPE7ZTT, YAD5HNL Microbiology: Microbiology Results (Last 30 days) No [...] #Routine Diet: Daily Healthy Menu Choices/Cardiac diet ([facility] [place] [place] NPO diet (Give Meds) [...] PCP: Vanita Churchill APRN PCP phone number: [phone] Date of Admission: 03/01/2023 ( Hospital Day [...] in the last 7068 hours. Invalid input(s): YRQSBOAPGQP2B No results for input(s): POCGLU in the last 168 hours. Heme No results for input(s): LDH, HAPTOGLOBIN, URICACID in the last 168 hours. ABG (Arterial Blood Gas) No results found for: PHART, PO2ART, CDC1BBT, TRX2TGY Microbiology: Microbiology Results (Last 30 days) No [...] #Routine Diet: Daily Healthy Menu Choices/Cardiac diet ([facility] [place] DVT Prophylaxis: LMWH GI [...] Blood Gas) No results for input(s): PHART, XQZ7GIB, PO2ART, VOT1QCI, LACTATEVEN, ITM6FWQ, PFRATIOART2 in the last 168 hours. VBG (Venous Blood Gas) No results for input(s): PHVEN, OTU9RJQ, PO2VEN, DHJ0TFJ, LACTATEVEN in the last 168 hours. Mixed Venous Sat No results for input(s): Q7OQUH7 in the last 168 hours. Vitals Last [...] in the last 7068 hours. Invalid input(s): QSLUFQENDSM5C No results for input(s): POCGLU in the last 168 hours. No results for input(s): LDH, HAPTOGLOBIN, URICACID in the last 168 hours. ABG (Arterial Blood Gas) No results for input(s): PHART, WGF6PKJ, PO2ART, JCR7EUY, LACTATEVEN, LVL6RZE, PFRATIOART2 in the last 168 hours. VBG (Venous Blood Gas) No results for input(s): PHVEN, WIA1IVK, PO2VEN, MXK6GKF, LACTATEVEN in the last 168 hours. Mixed Venous Sat No results for input(s): S5SWCO7 in the last 168 hours. Diagnostics: Echocardiogram [...] recommendations. Edwige Nieves APRN Structural Heart Pager [phone] 03/02/2023 * Chong Campbell MD - 03/02/2023 6:50 AM EDT Images from the original note were not included. Inpatient Cardiology Progress Note Patient info: Name: Lindsey Deleon : 1950 PCP: Vanita Churchill APRN PCP phone number: [phone] Date of Admission: 03/01/2023 ( Hospital Day [...] 276 MCV 101.5* 100.6* Recent Labs 03/02/23 04003/01/23 1648 NA 138 140 CL 104 103 [...] in the last 7068 hours. Invalid input(s): CQABXNGYZPY5S No results for input(s): POCGLU in the last 168 hours. Heme No results for input(s): LDH, HAPTOGLOBIN, URICACID in the last 168 hours. ABG (Arterial Blood Gas) No results found for: PHART, PO2ART, RWJ0LDE, AEN1PKF Microbiology: Microbiology Results (Last 30 days) No [...] #Routine Diet: Daily Healthy Menu Choices/Cardiac diet [place] [place] DVT Prophylaxis: LMWH GI [...] PCP: Vanita Churchill APRN PCP phone number: [phone] Date of Admission: 03/01/2023 ( Hospital Day [...] 5.9) performed by Mike Torres MD at [facility] CATH LABS ??? PRG X-RAY AORTA LEG ARTERIES N/A 08/15/2017 AORTOGRAPHY, ABD. + AYAAN. ILIOFEMORAL LE BY SERIALOGRAPHY S & I (WRVU 1.79) performed by Jake Montaño MD at [facility] MAIN OR ??? PRO COLONOSCOPY, DIAGNOSTIC 12/06/2012 COLONOSCOPY, DIAGNOSTIC performed by Mik Dumont MD at [facility] ENDOSCOPY ??? PRO LAPAROSCOPY REPAIR PARAESOPHAGEAL HERNIA INCL FUNDOPLASTY W/O MESH 02/18/2013 LAPAROSCOPIC PARAESOPHAGEAL HERNIA REPAIR W/FUNDOPLASTY, W/O MESH performed by Moncho Bowers MD at [facility] OR ??? PRO PLACE CATH FIRST ORDER ART, ABD/PELV 08/15/2017 CATHETER PLACEMENT, SELECTIVE FIRST ORDER IN ARTERIAL SYSTEM, EACH FIRST ORDER ABDOMINAL, PELVIC, OR LOWER EXTREMITY ARTERY BRANCH,WITHIN A VASCULAR FAMILY (WRVU 4.9) performed by Jake Montaño MD at [facility] MAIN OR ? ? PRO REVSC OPEN/PERCUTANEOUS ILIAC ART W STNT PLMT&ANGIO PATRICE VSL UNILAT Bilateral 08/15/2017 REVSC OPN\PRQ ILIAC ART W\STNT PLMT & ANGIOP SAME VSL (WRVU 10) performed by Jake Montaño MD at [facility] MAIN OR ??? PRO THROMBOENDARTECTMY ILIOFEMORAL Left 08/15/2017 @ENDARTERECTOMY, ILIOFEMORAL W OR W/O PATCH GRAFT (WRVU 19.86) performed by Jake Montaño MD at [facility] OR ??? PRO THROMBOENDARTECTMY NECK, NECK INCIS Right 06/10/2019 @ENDARTERECTOMY, CAROTID, VERTEBRAL,SUBCLAVIAN W\WO PATCH GRAFT (WRVU 21.16) performed by Jake Montaño MD at [facility] MAIN OR ??? PRO UPPER GI ENDOSCOPY, BIOPSY 12/06/2012 EGD WITH BIOPSY performed by Mik Dumont MD at [facility] ENDOSCOPY ??? TUBAL LIGATION Family History [...] in the last 7068 hours. Invalid input(s): [id number] No results for input(s): POCGLU in the last 168 hours. Heme No results for input(s): LDH, HAPTOGLOBIN, URICACID in the last 168 hours. ABG (Arterial Blood Gas) No results found for: PHART, PO2ART, WFO1HRY, LYJ5OJQ Microbiology: Microbiology Results (Last 30 days) No [...] #Routine Diet: Daily Healthy Menu Choices/Cardiac diet [place] [place] DVT Prophylaxis: Lovenox GI [...] Vargas MD - 03/08/2023 1:22 PM EDT [facility] [place] Patient Name: Lindsey Deleon : [id number] MR#: [id number] Case Date: 03/07/2023 Surgeon: Surgeon(s) and Role: * Mike Torres MD - Attending Co-Surgeon * Rahat Vargas MD - Attending Co-Surgeon * Alexander Gamez MD - Fellow * Anita Smith PA - Physician [employer] Machine Helper ? Preoperative diagnosis: aortic stenosis, severe/TAVR ?? [...] Output: (no urine output recorded) ? 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 Procedure Description: The patient was brought to the [facility] and placed upon the [facility] table in the supine position. Following administration of the sedation anesthetic the patient was prepped and draped using sterileprep. Left femoral and R radial arterial access was obtained utilizing Seldinger techniques. Angiography demonstrated positioning of the catheters above the femoral arterial bifurcation. Using similar techniques a 6 Indonesian sheath was placed into the right common [...] valve was then crossed with a 6 Indonesian AL-1 catheter and straight wire which was [...] directed aroundthe thoracic aortic arch into the [place] calcified annulus under fluoroscopy. Root angiography under [...] procedure well and was taken to the [facility] recovery room in hemodynamically stable condition. Attestation: Case Date: 03/07/2023 I was present and I participated during the entire procedure (does not need to include opening and closing). 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 RAHAT VARGAS MD 03/15/2023 * Plan of Care - Addison Farias RN - 03/08/2023 12:20 PM EDT Patient discharged to [facility], vitals as charted. No complaints of dizziness, [...] Contact information for [facility] [place] [address] [place] [address] Transportation: family or friend will provide - [...] Patient is insured through: Primary Insurance: VALDEZ [employer] Payor: JOSÉ MIGUEL SUAREZ / Plan: JOSÉ [...] Procedure Note: Patient Name: Lindsey Deleon : [id number] MR#: [id number] Case Date: 03/07/2023 Node Js Developer: Surgeon(s) and Role: Panel 1: * Mike Torres MD - Primary * Alexander Gamez MD - Fellow * Anita Smith PA - Physician [employer] Machine Helper Panel 2: * Rahat Vargas MD - [...] No Patient is insured through: Primary Insurance: Elementum Payor: Elementum / Plan: Elementum / Product Type: *No Product type* / Secondary Insurance: N/A Last Physical Therapy Recommendation: with Last Occupational Therapy Recommendation: with Plan for discharge is: Home w/ Services Outpatient Agency/Support Group Needs: Homecare agency Home Health Services: Home Health Aide, Occupational Therapy, Physical Therapy, Registered Nurse, Wound care Agency Referrals: Not Applicable - [facility] following patient. Transportation: family or friend [...] Office of Care Management Initial Assessment Danilo Lobtao RN reviewed record and discussed patient with [...] file Who is your DPOA-HC?: Child (Sammi Cazaresrien:daughter) Current Coping/Education/Information Needs: Patient reports understanding of [...] standard Home Address confirmed [place]: [place] [address] Social & Family Supports: All names listed below confirmed with patient as current and correct Extended Emergency Contact Information Primary Emergency Contact: Trev,Sammi Address: [address] [place] [address] [facility] Mobile Relation: Child Secondary Emergency Contact: Bam Trevizo, [facility] Mobile Relation: Child Current Care [...] Yes ; Prescription Coverage: Yes Preferred Pharmacy: [facility] [address] [facility] [address] [facility] - [address] [place] [id number] [id number] - [place], [place] - [address] [address] Status: Patient is a : No Primary Care Provider confirmed: Vanita Churchill, FINANCE PROFESSOR [phone] Patient/Caregiver Goals of Treatment: Have procedure and return home Potential Needs for Transition of Care: home health care Agency Referrals: patient requests referral to: [facility] [address] [facility] [address] PHONE: [phone] FAX: [phone] Transportation: no concerns Transportation Anticipated: family or friend will provide Concerns to be Addressed: discharge planning, adjustment to diagnosis/illness, progressive care manager support, home safety Assessment: Patient is admitted [...] RN CM(remote) Mega Arciniega RN CM Pager [phone] documented in this encounter Plan of Treatment Upcoming Encounters Date Type Department Care Team (Late st Contact Info) Description 02/06/2025 2:40 PM EDT Office Visit Cardiology at [address] [place] [phone] Rigoberto Diaz MD [facility] [address] [place] [address] Scheduled Orders Name Type Priority Associated Diagnoses [...] Routine 4:13 AM EDT BASIC METABOLIC PANEL Routine 03/08/2023 4:13 AM EDT HEMOGLOBIN Routine 03/07/2023 8:10 PM EDT HC VENIPUNCTURE [...] Heart Cath W/Inj L Ventriculography, Img S&I ([id number]) 03/07/2023 1:57 PM EDT aortic stenosis, severe/TAVR [...] 3 :35 AM EDT BASIC METABOLIC PANEL Routine 03/07/2023 3:35 AM EDT HC VENIPUNCTURE [...] 4 :02 AM EDT BASIC METABOLIC PANEL Routine 03/06/2023 4:02 AM EDT HEMOGRAM Routine 03/05/2023 3:50 AM EDT DIFFERENTIAL, AUTOMATED Routine 03/05/20 23 3:50 AM EDT HC CBC,PLT & AUTO DIFF Routine 3:50 AM EDT HC PHOSPHORUS, SERUM Routine 03/05/2023 3:50 AM EDT HC MAGNESIUM, SERUM Routine 03/05/2023 3 :50 AM EDT BASIC METABOLIC PANEL Routine 03/05/2023 3:50 AM EDT HC VENIPUNCTURE [...] 5 :17 AM EDT BASIC METABOLIC PANEL Routine 03/04/2023 5:17 AM EDT HEMOGRAM Routine 03/03/2023 4:07 AM EDT DIFFERENTIAL, AUTOMATED Routine 03/03/20 4:07 AM EDT HC CBC,PLT & AUTO DIFF Routine 4:07 AM EDT HC PHOSPHORUS, SERUM Routine 03/03/2023 4:07 AM EDT HC MAGNESIUM, SERUM Routine 03/03/2023 4 :07 AM EDT HC VITAMIN B12 SERUM Routine 03/03/2023 4:07 AM EDT BASIC METABOLIC PANEL Routine 03/03/2023 4:07 AM EDT HEMOGRAM Routine 03/02/2023 4:09 AM EDT DIFFERENTIAL, AUTOMATED Routine 03/02/20 4:09 AM EDT HC CBC,PLT & AUTO DIFF Routine 4:09 AM EDT HC PHOSPHORUS, SERUM Routine 03/02/2023 4:09 AM EDT HC MAGNESIUM, SERUM Routine 03/02/2023 4 :09 AM EDT BASIC METABOLIC PANEL Routine 03/02/2023 4:09 AM EDT HEMOGRAM Routine 03/01/2023 4:48 PM EDT DIFFERENTIAL, AUTOMATED Routine 03/01/20 4:48 PM EDT HC CBC,PLT & AUTO DIFF Routine 4:48 PM EDT HC PHOSPHORUS, SERUM Routine 03/01/2023 4:48 PM EDT HC MAGNESIUM, SERUM Routine 03/01/2023 4 :48 PM EDT BASIC METABOLIC PANEL Routine 03/01/2023 4:48 PM EDT ECHO COMPLETE Routine 03/01/2023 4:42 PM EDT Aortic valve stenosis, etiology of cardiac valve disease unspecified EKG 12-LEAD STAT 03/01/2023 1:52 PM EDT Aortic valve stenosis, etiology of cardiac valve disease unspecified documented in this encounter Results * (ABNORMAL) Comprehensive metabolic panel (non-fasting) (05/05/2023 11:24 AM EDT) Glucose 111 65 - 199 mg/dL [facility] Comment:Diabetes: >=200 mg/d L plus symptoms Blood Urea Nitrogen 21(H) 8 - 18 mg/dL [facility] Creatinine 1.18 0.70 - 1.20 mg/dL [facility] Sodium 139 135 - 145 mmol/L [facility] Potassium 4.3 3.5 - 5.0 mmol/L [facility] Comment: Please note: ??Patients with WBC >100,000 may have falsely elevated Potassium levels. ??For accurate Potassium quantification in these patients send serum separator tube (gold top) for subsequent determinations. ??Contact the Clinical Chemistry Laboratory if there are any questions. Chloride 102 98 - 107 mmol/L [facility] Carbon Dioxide 26 22 - 31 mmol/L [facility] Anion Gap 11 5 - 15 mmol/L [facility] Calcium 9.4 8.5 - 10.5 mg/dL [facility] Protein, Total 7.3 6.1 - 8.0 g/dL [facility] Albumin 4.3 3.2 - 5.2 g/dL [facility] Aspartate Aminotransferase 17 0 - 30 unit/L [facility] Alanine Aminotransferase 13 0 - 30 unit/L [facility] Alkaline Phosphatase 73 35 - 105 unit/L [facility] Bilirubin, Total 0.3 0.2 - 1.3 mg/dL [facility] Est Glomerular Filtration Rate 48(L) >=60 mL/min/1. 73 m?? [facility] Comment: This patient's estimated GFR [...] Lab Rahat Vargas MD CHEMISTRY ORDERABLE S [facility] [place] [address] * EKG 12 Lead (03/08/2023 11:05 AM EDT) Ventricular rate 67 BPM MUSE SYSTEM Atrial Rate 67 BPM MUSE SYSTEM P-R Interval 158 ms MUSE SYSTEM QRS Duration 132 ms MUSE SYSTEM Q-T Interval 442 ms MUSE SYSTEM QTC Calculated (Bezet) 467 ms MUSE SYSTEM Calculated P [place] 63 degrees MUSE SYSTEM Calculated R [place] -37 degrees MUSE SYSTEM Calculated T [place] 13 degrees MUSE SYSTEM INTERPRETATION Normal sinus rhythm Left axis deviation Right bundle branch block Abnormal ECG When compared with ECG of 08-MAR-2023 05:34, No significant change was found Confirmed by MD Valenzuela Danette ([id number]) on 03/08/2023 3:20:36 PM MUSE SYSTEM 03/08/2023 11:0 5 AM EDT 03/08/2023 3:20 PM EDT Rahat Vargas MD ECG ORDERABLES MUSE SYSTEM * [place]iop[place] 48 Hrs-15 Days (03/08/2023 10:01 AM EDT) Anatomical Region Laterality Modality Other Narrative 03/28/2023 3:43 PM EDT Images from the original result were not included. [facility] ? [facility] Cardiac Event [...] tab. ??For patients accessing the study from [facility] (My Chart), click on the link or links found in the IMAGES area below the text of the report. ? Randy Chatman MD, [facility], [facility] Shuail Padilla [facility] * EKG 12 Lead (03/08/2023 5:34 AM EDT) Ventricular rate 98 BPM MUSE SYSTEM Atrial Rate 98 BPM MUSE SYSTEM P-R Interval 168 ms MUSE SYSTEM QRS Duration 128 ms MUSE SYSTEM Q-T Interval 384 ms MUSE SYSTEM QTC Calculated (Bezet) 490 ms MUSE SYSTEM Calculated P [place] 59 degrees MUSE SYSTEM Calculated R [place] -39 degrees MUSE SYSTEM Calculated T [place] 8 degrees MUSE SYSTEM INTERPRETATION Normal sinus rhythm Left axis deviation Right bundle branch block Abnormal ECG When compared with ECG of 07-MAR-2023 15:44, (unconfirmed) Left posterior fascicular block is no longer Present I personally reviewed the tracing and edited the fellows interpretation Confirmed by fellow MD Yina, [facility] ([id number]) on 03/08/2023 5:20:12 PM Confirmed by MD DAVID, MARTIR ([id number]) on 03/08/2023 9:28:11 PM MUSE SYSTEM 03/08/2023 5:34 AM EDT 03/08/2023 9:28 PM EDT Rahat Vargas MD ECG ORDERABLES MUSE SYSTEM * (ABNORMAL) Differential, Automated (03/08/2023 4:13 AM EDT) Neutrophil % 73.3 % [facility] Neutrophil Absolute 8.45(H) 1.70 - 6.10 x10(3)/mc L [facility] Lymph % 14.9 % [facility] Lymphocytes Abs 1.7 0.9 - 3.2 x10(3)/mc L [facility] Monocyte % 10.9 % [facility] Monocyte Abs 1.3(H) 0.3 - 0.9 x10(3)/mc L [facility] Eos % 0.1 % [facility] Eosinophils Abs 0.0 0.0 - 0.4 x10(3)/mc L [facility] Basophil % 0.3 % [facility] Baso Absolute 0.0 0.0 - 0.1 x10(3)/mc L [facility] Immature Gran % 0.50 % [facility] Comment: Immature granulocytes(IG's)percentage and absolute count will include metamyelocytes, myelocytes, and promyelocytes. Blood smears from CBCs yielding IG's will be scanned manually for concordance. If this scan disagrees with the automated IG or if promyelocytes are noted, a manual differential will be performed. Immature Gran Absolute 0.06(H) 0.00 - 0.04 x10(3)/ L [facility] Blood 03/08/2023 4:13 AM EDT 03/08/2023 4:29 AM EDT Narrative Resulting Agency Comment Spec In Lab Bam SALINAS HEMATOLOGY ORDERABLE S Performing Organization Address City/State/[facility] Co de Phone Number [facility] [place] [address] * (ABNORMAL) Hemogram (03/08/2023 4:13 AM EDT) White Blood Cell 11.5(H) 4.0 - 9.5 x10(3)/ L [facility] Red Blood Cell 3.43(L) 4.00 - 5.21 x10(6)/[facility] Hemoglobin 11.1(L) 11.7 - 15.5 g/dL [facility] Hematocrit 32.9(L) 35.7 - 45.8 % [facility] Mean Cell Volume 95.9(H) 82.6 - 94.4 fL [facility] Mean Cell Hemoglobin 32.4(H) 27.1 - 32.0 pg [facility] Mean Cell Hemoglobin Concentration 33.7 31.7 - 35.0 g/dL [facility] Platelet 216 145 - 357 x10(3)/mc [facility] RDW Standard Deviation 43.8 37.0 - 46.0 fL [facility] RDW coefficient of variation 12.3 11.5 - 14.1 % [facility] Mean Platelet Volume 9.6 7.6 - 12.9 fL [facility] NRBC% auto 0.0 % [facility] ITAL [facility] NRBC Absolute 0.000 0.000 - 0.000 x10(3)/mc L [facility] Blood 03/08/2023 4:13 AM EDT 03/08/2023 4:29 AM EDT Narrative Resulting Agency Comment Spec In Lab Bam SALINAS HEMATOLOGY ORDERABLE S [facility] [place] [address] * (ABNORMAL) Basic Metabolic Panel (non-fasting) (03/08/2023 4:13 AM EDT) Glucose 116 65 - 199 mg/dL [facility] Comment:Diabetes: >=200 mg/d L plus symptoms Blood Urea Nitrogen 21(H) 8 - 18 mg/dL [facility] Creatinine 0.89 0.70 - 1.20 mg/dL [facility] Sodium 134(L) 135 - 145 mmol/L [facility] Potassium 3.8 3.5 - 5.0 mmol/L [facility] Comment: Please note: ??Patients with WBC >100,000 may have falsely elevated Potassium levels. ??For accurate Potassium quantification in these patients send serum separator tube (gold top) for subsequent determinations. ??Contact the Clinical Chemistry Laboratory if there are any questions. Chloride 99 98 - 107 mmol/L [facility] Carbon Dioxide 23 22 - 31 mmol/L [facility] Anion Gap 12 5 - 15 mmol/L [facility] Calcium 9.2 8.5 - 10.5 mg/dL [facility] Est Glomerular Filtration Rate 68 >=60 mL/min/1. 73 m?? [facility] Comment: This patient's estimated GFR [...] MD CHEMISTRY ORDERABLE S Performing Organization Address [facility]/ZIP Co de Phone Number [facility] [place] [address] * (ABNORMAL) Hemoglobin (03/07/2023 8:10 PM EDT) Hemoglobin 11.1(L) 11.7 - 15.5 g/dL [facility] Blood 03/07/2023 8:10 PM EDT 03/07/2023 8:21 PM EDT Narrative Resulting Agency Comment Spec In Lab Rahat Vargas MD HEMATOLOGY ORDERABL ES Performing Organization Address [facility] Co de Phone Number [facility] [place] [address] * Potassium (03/07/2023 8:10 PM EDT) Pathologist [facility] Potassium 4.1 3.5 - 5.0 mmol/L [facility] Comment: Please note: ??Patients with [...] MD CHEMISTRY ORDERABLE S Performing Organization Address [facility] Co de Phone Number [facility] [place] [address] * ECHO LMTD W/O CONTRAST W LMTD SPEC DOPP COLOR DOPP (03/07/2023 3:48 PM EDT) EF 75 HEARTLAB SYSTEM Anatomical Region Laterality Modality Cardiac Other 03/07/2023 2:28 PM EDT Narrative 03/07/2023 4:27 PM EDT ? Echocardiogram Report Name: DELEON, LINDSEY D ? Study Date: 03/07/2023 02:28 PM ? Patient Location: 4A : 1950 ? Height: 160 cm ? Account: [id number] Age: 72 yrs ? Weight: 79 kg Gender: Female ?BSA: 1.8 m2 Ordering Physician: BRANDON CROWLEY Referring Physician: ALEXANDER GAMEZ Performed By: Hugh Solomon RDCS Reason For Study: Guidance for TAVR procedure Interpreting Fellow: Rigoberto Humphreys. Exam Location: [facility]. Interpretation Summary PRE-TAVR: There is severe [...] is no pericardial effusion. Procedure Limited - 58761. Color Doppler - 47522. limited spectral 60867. Suboptimal quality. This study is limited because [...] Moctezuma MD - 03/07/2023 Echocardiogram Report Name: OBDULIA DELEONSA Bibi Study Date: 302:28 PM Patient Location: : 1950 Height: 160 cm Account: [id number] Age: 72 yrs Weight: 79 kg Gender: Female BSA: 1.8 m2 Ordering Physician: BRANDON CROWLEY Referring Physician: ALEXANDER GAMEZ Performed By: Hugh Solomon RDCS Reason For Study: Guidance for TAVR procedure Interpreting Fellow: Rigoberto Humphreys. Exam Location: [facility]. Interpretation Summary PRE-TAVR: There is severe [...] There is nopericardial effusion. Procedure Limited - 19717. Color Doppler - 75952. limited spectral 14601.Suboptimal quality. This study is limited because of [...] (Bezet) 499 ms MUSE SYSTEM Calculated P [place] 75 degrees MUSE SYSTEM Calculated R [place] 115 degrees MUSE SYSTEM Calculated T [place] -3 degrees MUSE SYSTEM INTERPRETATION Suspect limb lead reversal, interpretation assumes no reversal Normal sinus rhythm Right bundle branch block Left posterior fascicular block Bifascicular block Abnormal ECG When compared with ECG of 04-MAR-2023 20:24, Left posterior fascicular block is now Present Left anterior fascicular block is no longer Present Confirmed by MD HERNANDEZ ARMIN ([id number]) on 03/08/2023 9:07:20 PM MUSE SYSTEM 03/07/2023 3:44 PM EDT 03/08/2023 9:07 PM EDT Brandon Crowley MD ECG ORDERABLES MUSE SYSTEM * CARDIAC CATHETERIZATION (03/07/2023 3:31 PM EDT) Anatomical Region Laterality Modality Other Narrative 03/09/2023 11:57 AM EDT ?[facility] ? Cardiac Catheterization/Intervention Report ? Patient Name: Deleon, Lindsey D. ? Procedure Date: 03/07/2023 ? A #: [id number] ? Primary Physician: Brian, Mike T ? Case #: [id number] ? File Name: [id number] ? Catheterization Order Number: [id number] ? [facility] ? Final Report [place], [place] ? Patient Name: ? Lindsey D. Deleon ?ID#: ?[id number] ? : ?1950 ? Procedure Date: ? March 07, 2023 ? Case #: ? [id number] ? Room: ? 6 ? Case Physician: ? Mike Torres M.D. ?Start: ?14:38 ?Fellow: ? Wassim Dalton Gamez ?Admission: ??03/01/2023 ? Referring Physician: ??Wassim Dalton Gamez ? Procedures: ?* Aortic Root Aortogram ?* Transcatheter Aortic Valve Replacement ?* Vascular Closure Device Deployment ?* Temporary Pacemaker Insertion In [employer] ?* Arterial Line / Sheath Insert ?* Cardiac Fluoro ?* Access Site Angiography ?* Arterial Blood Gases ?* Anesthesia ?* Transthoracic Echo During Cath ? History ?Lindsey Billie Deleon is a [...] as ASA Class III. The HA clinical ?frailty scale is 4: Vulnerable. ? [...] was performed under Moderate sedation. Rahat Vargas, ?Dalton participated in the case (see Cardiac Surgery report for additional ?details). ?The TAVR sheath was a 14 Fr Dykes eSheath Introducer and the access ?site was femoral. Rapid ventricular pacing was performed. ?An Dykes Lenard 3 Ultra RESILIA 23 mm THV (s/e=[id number]) transcatheter ?valve was inserted using standard technique. [...] to nor was it given in the ?photofinishing laboratory worker. ?Recommended anti-platelet/anti-thrombotic regimen: ?Start aspirin 81 mg daily now and continue for indefinitely. ?These recommendations are made at the time of the intervention. Patient ?and provider preferences or a changing clinical situation may require ?modification of this regimen. Consult [facility] [place] Interventional Cardiology for ?questions. [...] the access site angiography, temporary ?pacemaker in photofinishing laboratory worker, arterial line / sheath insert, cardiac fluoro, ?vascular closure device, ABG, transthoracic echo , TAVR, aortic root ?aortogram and anesthesia. ? Mike Torres M.D. ? Electronically Signed by: Mike Torres M.D. ? Report Finalized: 03/09/2023 ??11:52 ? Mike Torres MD CARDIAC CATH ORDERAB LES * (ABNORMAL) Point of Care Blood Gas Historical (03/07/2023 2:20 PM EDT) Pathologist [facility] pH, POC 7.43 7.35 - 7.45 [facility] pCO2, POC 37 35 - 45 mmHg [facility] pO2, POC 130(H) 85 - 104 mmHg [facility] Base Excess, POC 0.0 -3.0 - 3.0 mmol/L [facility] Bicarbonate, POC 24.6 20.0 - 26.0 mmol/L [facility] Sodium, POC 138 135 - 145 mmol/L [facility] POC Potassium 4.3 3.5 - 5.0 mmol/L [facility] Ionized Calcium, POC 1.25 1.15 - 1.33 mmol/L [facility] POC Hematocrit 36.0 34.0 - 45.0 % [facility] POC Calc Hgb 12.2 11.2 - 15.7 g/dL [facility] Comment:The calculation of h emoglobin from hematocrit assumes a normal MCHC. POC Bgas Loc CC LAB [facility] Blood 03/07/2023 2:20 PM EDT 03/09/2023 12:00 PM EDT Rahat Vargas MD CHEMISTRY ORDERABLE S [facility] [place] [address] * Type and Screen Validity (03/07/2023 3:35 AM EDT) [facility] T&S only valid at [facility] LABORATORY Comment:This Type and Screen result is only valid at the [facility] Blood 03/07/2023 3:35 AM EDT 03/07/2023 3:42 AM EDT Narrative Resulting Agency Comment Spec In Lab Edwige Nieves APRN BLOOD BANK LAB ORDER TANA [facility] [place] [address] * ABORH Recheck Status (03/07/2023 3:35 AM EDT) [facility] ABORH Type Recheck Completed [facility] LABORATORY Blood 03/07/2023 3:35 AM EDT 03/07/2023 3:42 AM EDT Narrative Resulting Agency Comment Spec In Lab Edwige Nieves [facility] LAB ORDER TANA Performing Organization Address City/[facility]/[place] [address] * (ABNORMAL) Differential, Automated (03/07/2023 3:35 AM EDT) Neutrophil % 56.8 % [facility] Neutrophil Absolute 3.80 1.70 - 6.10 x10(3)/mc L [facility] Lymph % 28.0 % [facility] Lymphocytes Abs 1.9 0.9 - 3.2 x10(3)/mc L [facility] Monocyte % 14.0 % [facility] Monocyte Abs 0.9 0.3 - 0.9 x10(3)/mc L [facility] Eos % 0.1 % [facility] Eosinophils Abs 0.0 0.0 - 0.4 x10(3)/mc L [facility] Basophil % 0.4 % [facility] Baso Absolute 0.0 0.0 - 0.1 x10(3)/mc L [facility] Immature Gran % 0.70 % [facility] Comment: Immature granulocytes(IG's)percentage and absolute count will include metamyelocytes, myelocytes, and promyelocytes. Blood smears from CBCs yielding IG's will be scanned manually for concordance. If this scan disagrees with the automated IG or if promyelocytes are noted, a manual differential will be performed. Immature Gran Absolute 0.05(H) 0.00 - 0.04 x10(3)/mc L [facility] Blood 03/07/2023 3:35 AM EDT 03/07/2023 3:56 AM EDT Narrative Resulting Agency Comment Spec In Lab Mega Gant MD HEMATOLOGY ORDERABLE S Performing Organization Address City/[facility]/ZIP Co de Phone Number [facility] [place] [address] * (ABNORMAL) Hemogram (03/07/2023 3:35 AM EDT) White Blood Cell 6.7 4.0 - 9.5 x10(3)/mc L [facility] Red Blood Cell 3.64(L) 4.00 - 5.21 x10(6)/mc L [facility] Hemoglobin 11.8 11.7 - 15.5 g/dL [facility] Hematocrit 35.1(L) 35.7 - 45.8 % [facility] Mean Cell Volume 96.4(H) 82.6 - 94.4 fL [facility] Mean Cell Hemoglobin 32.4(H) 27.1 - 32.0 pg [facility] Mean Cell Hemoglobin Concentration 33.6 31.7 - 35.0 g/dL [facility] Platelet 241 145 - 357 x10(3)/mc L [facility] RDW Standard Deviation 43.4 37.0 - 46.0 fL [facility] RDW coefficient of variation 12.2 11.5 - 14.1 % [facility] Mean Platelet Volume 9.7 7.6 - 12.9 fL [facility] NRBC% auto 0.0 % [facility]OR[facility] NRBC Absolute 0.000 0.000 - 0.000 x10(3)/ L [facility] Blood 03/07/2023 3:35 AM EDT 03/07/2023 3:56 AM EDT Narrative Resulting Agency Comment Spec In Lab Mega Gant MD HEMATOLOGY ORDERABLE S [facility] [place] [address] * Antibody screen (03/07/2023 3:35 AM EDT) Ab Screen Interp Negative [facility] Expires at 1122 on: 03/10/2023 [facility] Blood 03/07/2023 3:35 AM EDT 03/07/2023 3:42 AM EDT Narrative Resulting Agency Comment Spec In Lab Edwige L Lizbeth [employer] [facility] LAB ORDER TANA [facility] [place] [address] * ABO/Rh Typing (03/07/2023 3:35 AM EDT) ABORH Type O Pos [facility] Blood 03/07/2023 3:35 AM EDT 03/07/2023 3:42 AM EDT Narrative Resulting Agency Comment Spec In Lab Edwige Nieves [employer] [facility] LAB ORDER TANA Performing Organization Address City/[facility]/ZIP Co de Phone Number [facility] [place] [address] * Magnesium (03/07/2023 3:35 AM EDT) Magnesium 0.98 0.69 - 1.07 mmol/L [facility] Blood 03/07/2023 3:35 AM EDT 03/07/2023 3:55 AM EDT Narrative Resulting Agency Comment Spec In Lab Chong Campbell MD CHEMISTRY ORDERABLE S Performing Organization Address City/[facility]/ZIP Co de Phone Number [facility] [place] [address] * Phosphorus (03/07/2023 3:35 AM EDT) Phosphorus 3.8 2.5 - 4.5 mg/dL [facility] Blood 03/07/2023 3:35 AM EDT 03/07/2023 3:55 AM EDT Narrative Resulting Agency Comment Spec In Lab Chong Campbell MD CHEMISTRY ORDERABLE S [facility] [place] [address] * (ABNORMAL) Basic Metabolic Panel (non-fasting) (03/07/2023 3:35 AM EDT) Glucose 97 65 - 199 mg/dL [facility] Comment:Diabetes: >=200 mg/d L plus symptoms Blood Urea Nitrogen 25(H) 8 - 18 mg/dL [facility] Creatinine 1.05 0.70 - 1.20 mg/dL [facility] Sodium 132(L) 135 - 145 mmol/L [facility] Potassium 3.6 3.5 - 5.0 mmol/L [facility] Comment: Please note: ??Patients with WBC >100,000 may have falsely elevated Potassium levels. ??For accurate Potassium quantification in these patients send serum separator tube (gold top) for subsequent determinations. ??Contact the Clinical Chemistry Laboratory if there are any questions. Chloride 99 98 - 107 mmol/L [facility] Carbon Dioxide 23 22 - 31 mmol/L [facility] Anion Gap 10 5 - 15 mmol/L [facility] Calcium 9.1 8.5 - 10.5 mg/dL [facility] Est Glomerular Filtration Rate 56(L) >=60 mL/min/1. 73 m?? [facility] Comment: This patient's estimated GFR [...] Lab Chong Campbell MD CHEMISTRY ORDERABLE S [facility] [place] [address] * Blood culture (03/06/2023 11:16 AM EDT) Blood Culture No growth at 5 days. [facility] Blood STRUCTURE OF RIGHT HAND / Unknown 03/06/2023 11:16 AM EDT 03/06/2023 12:45 PM EDT Comment:#2 Narrative Resulting Agency Comment Spec In Lab Brandon Crowley MD MICROBIOLOGY - BLOOD ORDERABLES Performing Organization Address City/[facility]/[place] [address] * Blood culture (03/06/2023 11:09 AM EDT) Blood Culture No growth at 5 days. [facility] Blood ANTECUBITAL REGION STRUCTURE / Unknown 03/06/2023 11:09 AM EDT 03/06/2023 12:45 PM EDT Comment:#1 Narrative Resulting Agency Comment Spec In Lab Brandon Crowley MD MICROBIOLOGY - BLOOD ORDERABLES Performing Organization Address [facility] [place] [address] * XR Chest One View (03/06/2023 8:45 [...] who have questions please contact the health resident care spec that requested your imaging first. ? Electronically signed by: Tello Moon MD, [facility] ([phone]), at 03/06/2023 8:49 AM Narrative 03/06/2023 8:49 [...] patients who have questions please contactthe health resident care spec that requested your imaging first. Brandon Crowley MD IMG DX ORDERABLES * Urinalysis with reflex Culture (03/06/2023 8:28 AM EDT) Glucose, Urine Dipstick Negative Negative mg/dL [facility] Protein, Urine Dipstick Negative Negative mg/dL [facility] Bilirubin, Urine Dipstick Negative Negative mg/dL [facility] Comment: Clinical correlation required for positive Urine Bilirubin results as false positive may occur with some drugs and drug related products. If a false positive is suspected a serum total bilirubin should be considered if clinically indicated. Urobilinogen, Urine Dipstick Normal Normal mg/dL [facility] pH, Urn (dipstick) 6.0 5.0 - 8.0 [facility] Blood, Urine Dipstick Negative Negative mg/dL [facility] Ketone, Urine Dipstick Negative Negative mg/dL [facility] Nitrite, Urine Dipstick Negative Negative [facility] Leukocytes, Urine Dipstick Negative Negative mcL [facility] Appearance, Urine Dipstick Clear Clear [facility] Specific [place] Urine Automated 1.008 1.005 - 1.030 [facility] Color, Urine Dipstick Yellow Yellow [facility] Reflex to Culture No [facility] Urine 03/06/2023 8:28 AM EDT 03/06/2023 10:27 AM EDT Narrative Resulting Agency Comment Spec In Lab Brandon Crowley MD URINE ORDERABLES Performing Organization Address City/State/[facility] Co de Phone Number [facility] [place] [address] * (ABNORMAL) Differential, Automated (03/06/2023 4:02 AM EDT) Neutrophil % 57.3 % [facility] Neutrophil Absolute 3.65 1.70 - 6.10 x10(3)/mc L [facility] Lymph % 28.1 % [facility] Lymphocytes Abs 1.8 0.9 - 3.2 x10(3)/mc L [facility] Monocyte % 13.0 % [facility] Monocyte Abs 0.8 0.3 - 0.9 x10(3)/mc L [facility] Eos % 0.2 % [facility] Eosinophils Abs 0.0 0.0 - 0.4 x10(3)/mc L [facility] Basophil % 0.3 % [facility] Baso Absolute 0.0 0.0 - 0.1 x10(3)/mc L [facility] Immature Gran % 1.10 % [facility] Comment: Immature granulocytes(IG's)percentage and absolute count will include metamyelocytes, myelocytes, and promyelocytes. Blood smears from CBCs yielding IG's will be scanned manually for concordance. If this scan disagrees with the automated IG or if promyelocytes are noted, a manual differential will be performed. Immature Gran Absolute 0.07(H) 0.00 - 0.04 x10(3)/mc L [facility] Blood 03/06/2023 4:02 AM EDT 03/06/2023 4:43 AM EDT Narrative Resulting Agency Comment Spec In Lab Mega Gant MD HEMATOLOGY ORDERABLE S Performing Organization Address City/[facility] Co de Phone Number [facility] [place] [address] * (ABNORMAL) Hemogram (03/06/2023 4:02 AM EDT) White Blood Cell 6.4 4.0 - 9.5 x10(3)/mc L [facility] Red Blood Cell 3.70(L) 4.00 - 5.21 x10(6)/mc L [facility] Hemoglobin 12.1 11.7 - 15.5 g/dL [facility] Hematocrit 35.5(L) 35.7 - 45.8 % [facility] Mean Cell Volume 95.9(H) 82.6 - 94.4 fL [facility] Mean Cell Hemoglobin 32.7(H) 27.1 - 32.0 pg [facility] Mean Cell Hemoglobin Concentration 34.1 31.7 - 35.0 g/dL [facility] Platelet 258 145 - 357 x10(3)/mc L [facility] RDW Standard Deviation 43.3 37.0 - 46.0 fL [facility] RDW coefficient of variation 12.2 11.5 - 14.1 % [facility] Mean Platelet Volume 9.7 7.6 - 12.9 fL [facility] NRBC% auto 0.0 % [facility]OR[facility] NRBC Absolute 0.000 0.000 - 0.000 x10(3)/mc L [facility] Blood 03/06/2023 4:02 AM EDT 03/06/2023 4:43 AM EDT Narrative Resulting Agency Comment Spec In Lab Mega Gant MD HEMATOLOGY ORDERABLE S Performing Organization Address City/[facility]/ZIP Co de Phone Number [facility] [place] [address] * Magnesium (03/06/2023 4:02 AM EDT) Magnesium 0.94 0.69 - 1.07 mmol/L [facility] Blood 03/06/2023 4:02 AM EDT 03/06/2023 4:43 AM EDT Narrative Resulting Agency Comment Spec In Lab Chong Campbell MD CHEMISTRY ORDERABLE S Performing Organization Address [facility] Co de Phone Number [facility] [place] [address] * (ABNORMAL) Phosphorus (03/06/2023 4:02 AM EDT) Phosphorus 4.8(H) 2.5 - 4.5 mg/dL [facility] Blood 03/06/2023 4:02 AM EDT 03/06/2023 4:43 AM EDT Narrative Resulting Agency Comment Spec In Lab Chong Campbell MD CHEMISTRY ORDERABLE S Performing Organization Address [facility] Co de Phone Number [facility] [place] [address] * (ABNORMAL) Basic Metabolic Panel (non-fasting) (03/06/2023 4:02 AM EDT) Glucose 98 65 - 199 mg/dL [facility] Comment:Diabetes: >=200 mg/d L plus symptoms Blood Urea Nitrogen 27(H) 8 - 18 mg/dL [facility] Creatinine 1.23(H) 0.70 - 1.20 mg/dL [facility] Sodium 132(L) 135 - 145 mmol/L [facility] Potassium 3.7 3.5 - 5.0 mmol/L [facility] Comment: Please note: ??Patients with WBC >100,000 may have falsely elevated Potassium levels. ??For accurate Potassium quantification in these patients send serum separator tube (gold top) for subsequent determinations. ??Contact the Clinical Chemistry Laboratory if there are any questions. Chloride 95(L) 98 - 107 mmol/L [facility] Carbon Dioxide 23 22 - 31 mmol/L [facility] Anion Gap 14 5 - 15 mmol/L [facility] Calcium 9.5 8.5 - 10.5 mg/dL [facility] Est Glomerular Filtration Rate 46(L) >=60 mL/min/1. 73 m?? [facility] Comment: This patient's estimated GFR [...] MD CHEMISTRY ORDERABLE S Performing Organization Address City/State/[facility] Co de Phone Number [facility] [place] [address] * (ABNORMAL) Differential, Automated (03/05/2023 3:50 AM EDT) Neutrophil % 55.4 % [facility] Neutrophil Absolute 4.15 1.70 - 6.10 x10(3)/mc L [facility] Lymph % 30.4 % [facility] Lymphocytes Abs 2.3 0.9 - 3.2 x10(3)/mc L [facility] Monocyte % 12.3 % [facility] Monocyte Abs 0.9 0.3 - 0.9 x10(3)/mc L [facility] Eos % 0.1 % [facility] Eosinophils Abs 0.0 0.0 - 0.4 x10(3)/mc L [facility] Basophil % 0.5 % [facility] Baso Absolute 0.0 0.0 - 0.1 x10(3)/mc L [facility] Immature Gran % 1.30 % [facility] Comment: Immature granulocytes(IG's)percentage and absolute count will include metamyelocytes, myelocytes, and promyelocytes. Blood smears from CBCs yielding IG's will be scanned manually for concordance. If this scan disagrees with the automated IG or if promyelocytes are noted, a manual differential will be performed. Immature Gran Absolute 0.10(H) 0.00 - 0.04 x10(3)/mc L [facility] Blood 03/05/2023 3:50 AM EDT 03/05/2023 4:19 AM EDT Narrative Resulting Agency Comment Spec In Lab Mega Gant MD HEMATOLOGY ORDERABLE S [facility] [place] [address] * (ABNORMAL) Hemogram (03/05/2023 3:50 AM EDT) White Blood Cell 7.5 4.0 - 9.5 x10(3)/mc L [facility] Red Blood Cell 3.57(L) 4.00 - 5.21 x10(6)/mc L [facility] Hemoglobin 11.9 11.7 - 15.5 g/dL [facility] Hematocrit 35.4(L) 35.7 - 45.8 % [facility] Mean Cell Volume 99.2(H) 82.6 - 94.4 fL [facility] Mean Cell Hemoglobin 33.3(H) 27.1 - 32.0 pg [facility] Mean Cell Hemoglobin Concentration 33.6 31.7 - 35.0 g/dL [facility] Platelet 228 145 - 357 x10(3)/mc L [facility] RDW Standard Deviation 45.3 37.0 - 46.0 fL [facility] RDW coefficient of variation 12.5 11.5 - 14.1 % [facility] Mean Platelet Volume 9.4 7.6 - 12.9 fL [facility] NRBC% auto 0.0 % [facility] NRBC Absolute 0.000 0.000 - 0.000 x10(3)/mc L [facility] Blood 03/05/2023 3:50 AM EDT 03/05/2023 4:19 AM EDT Narrative Resulting Agency Comment Spec In Lab Mega Gant MD HEMATOLOGY ORDERABLE S Performing Organization Address City/[facility]/ZIP Co de Phone Number [facility] [place] [address] * Magnesium (03/05/2023 3:50 AM EDT) Magnesium 1.03 0.69 - 1.07 mmol/L [facility] Blood 03/05/2023 3:50 AM EDT 03/05/2023 4:18 AM EDT Narrative Resulting Agency Comment Spec In Lab Chong Campbell MD CHEMISTRY ORDERABLE S Performing Organization Address [facility] Co de Phone Number [facility] [place] [address] * (ABNORMAL) Phosphorus (03/05/2023 3:50 AM EDT) Phosphorus 5.6(H) 2.5 - 4.5 mg/dL [facility] Blood 03/05/2023 3:50 AM EDT 03/05/2023 4:18 AM EDT Narrative Resulting Agency Comment Spec In Lab Chong Campbell MD CHEMISTRY ORDERABLE S Performing Organization Address [facility] Co de Phone Number [facility] [place] [address] * (ABNORMAL) Basic Metabolic Panel (non-fasting) (03/05/2023 3:50 AM EDT) Glucose 104 65 - 199 mg/dL [facility] Comment:Diabetes: >=200 mg/d L plus symptoms Blood Urea Nitrogen 31(H) 8 - 18 mg/dL [facility] Creatinine 1.69(H) 0.70 - 1.20 mg/dL [facility] Sodium 133(L) 135 - 145 mmol/L [facility] Potassium 4.4 3.5 - 5.0 mmol/L [facility] Comment: Please note: ??Patients with WBC >100,000 may have falsely elevated Potassium levels. ??For accurate Potassium quantification in these patients send serum separator tube (gold top) for subsequent determinations. ??Contact the Clinical Chemistry Laboratory if there are any questions. Chloride 96(L) 98 - 107 mmol/L [facility] Carbon Dioxide 24 22 - 31 mmol/L [facility] Anion Gap 13 5 - 15 mmol/L [facility] Calcium 9.5 8.5 - 10.5 mg/dL [facility] Est Glomerular Filtration Rate 31(L) >=60 mL/min/1. 73 m?? [facility] Comment: This patient's estimated GFR [...] Lab Chong Campbell MD CHEMISTRY ORDERABLE S [facility] [place] [address] * Troponin (03/04/2023 10:45 PM EDT) Troponin-T, High Sensitivity 13 <=14 ng/L [facility] Comment: This patient's troponin T [...] troponin value can be found in the [facility] Laboratory Test Catalog Troponin - [facility] Laboratory Test Catalog Reference: Fourth Trinity Definition of Myocardial Infarction. Journal of the [place] [employer] 2018;72:2917-8906 Blood 03/04/2023 10:4 5 PM EDT 03/04/2023 10:49 PM EDT Narrative Resulting Agency Comment Spec In Lab Brandon Crowley MD CHEMISTRY ORDERABLES Performing Organization Address City/[facility]/[place] [address] * EKG 12 Lead (03/04/2023 8:24 PM EDT) Pathologist [facility] Ventricular rate 66 BPM MUSE SYSTEM Atrial Rate 66 BPM MUSE SYSTEM P-R Interval 148 ms MUSE SYSTEM QRS Duration 134 ms MUSE SYSTEM Q-T Interval 454 ms MUSE SYSTEM QTC Calculated (Bezet) 475 ms MUSE SYSTEM Calculated P [place] 63 degrees MUSE SYSTEM Calculated R [place] -64 degrees MUSE SYSTEM Calculated T [place] 26 degrees MUSE SYSTEM INTERPRETATION Normal sinus rhythm Right bundle branch block Left anterior fascicular block Bifascicular block Abnormal ECG When compared with ECG of 01-MAR-2023 13:52, No significant change was found Confirmed by MD Benny, Juan Ramon Leon ([id number]) on 03/05/2023 11:52:50 AM MUSE SYSTEM 03/04/2023 8:24 PM EDT 03/05/2023 11:52 AM EDT Gregorio Goodman MD ECG ORDERABLES Performing Organization Address City/[facility]/ZIP Co de Phone Number MUSE SYSTEM * Troponin (03/04/2023 8:10 PM EDT) Pathologist [facility] Troponin-T, High Sensitivity 11 <=14 ng/L [facility] Comment: This patient's troponin T [...] troponin value can be found in the [facility] Laboratory Test Catalog Troponin - [facility] Laboratory Test Catalog Reference: Fourth Trinity Definition of Myocardial Infarction. Journal of the [place] 2018;72:7443-2785 Blood 03/04/2023 8:10 PM EDT 03/04/2023 8:18 PM EDT Narrative Resulting Agency Comment Spec In Lab Brandon Crowley MD CHEMISTRY ORDERABLES Performing Organization Address City/State/[facility] Co de Phone Number [facility] [place] [address] * (ABNORMAL) Differential, Automated (03/04/2023 5:17 AM EDT) [facility] Neutrophil % 67.7 % [facility] Neutrophil Absolute 5.10 1.70 - 6.10 x10(3)/mc L [facility] Lymph % 21.0 % [facility] Lymphocytes Abs 1.6 0.9 - 3.2 x10(3)/mc L [facility] Monocyte % 9.3 % [facility]OR[facility] Monocyte Abs 0.7 0.3 - 0.9 x10(3)/mc L [facility] Eos % 0.3 % [facility] Eosinophils Abs 0.0 0.0 - 0.4 x10(3)/mc L [facility] Basophil % 0.5 % [facility] Baso Absolute 0.0 0.0 - 0.1 x10(3)/mc L [facility] Immature Gran % 1.20 % [facility] Comment: Immature granulocytes(IG's)percentage and absolute count will include metamyelocytes, myelocytes, and promyelocytes. Blood smears from CBCs yielding IG's will be scanned manually for concordance. If this scan disagrees with the automated IG or if promyelocytes are noted, a manual differential will be performed. Immature Gran Absolute 0.09(H) 0.00 - 0.04 x10(3)/ L [facility] Blood 03/04/2023 5:17 AM EDT 03/04/2023 5:29 AM EDT Narrative Resulting Agency Comment Spec In Lab Mega Gant MD HEMATOLOGY ORDERABLE S Performing Organization Address City/State/[facility] Co de Phone Number [facility] [place] [address] * (ABNORMAL) Hemogram (03/04/2023 5:17 AM EDT) White Blood Cell 7.5 4.0 - 9.5 x10(3)/mc L [facility] Red Blood Cell 3.71(L) 4.00 - 5.21 x10(6)/mc L [facility] Hemoglobin 12.1 11.7 - 15.5 g/dL [facility] Hematocrit 36.6 35.7 - 45.8 % [facility] Mean Cell Volume 98.7(H) 82.6 - 94.4 fL [facility] Mean Cell Hemoglobin 32.6(H) 27.1 - 32.0 pg [facility] Mean Cell Hemoglobin Concentration 33.1 31.7 - 35.0 g/dL [facility] Platelet 254 145 - 357 x10(3)/mc L [facility] RDW Standard Deviation 45.9 37.0 - 46.0 fL [facility] RDW coefficient of variation 12.7 11.5 - 14.1 % [facility] Mean Platelet Volume 9.1 7.6 - 12.9 fL [facility] NRBC% auto 0.0 % [facility] NRBC Absolute 0.000 0.000 - 0.000 x10(3)/mc L [facility] Blood 03/04/2023 5:17 AM EDT 03/04/2023 5:29 AM EDT Narrative Resulting Agency Comment Spec In Lab Mega Gant MD HEMATOLOGY ORDERABLE S Performing Organization Address City/[facility]/ZIP Co de Phone Number [facility] [place] [address] * Magnesium (03/04/2023 5:17 AM EDT) Magnesium 0.98 0.69 - 1.07 mmol/L [facility] Blood 03/04/2023 5:17 AM EDT 03/04/2023 5:29 AM EDT Narrative Resulting Agency Comment Spec In Lab Chong Campbell MD CHEMISTRY ORDERABLE S Performing Organization Address City/[facility] Co de Phone Number [facility] [place] [address] * (ABNORMAL) Phosphorus (03/04/2023 5:17 AM EDT) Phosphorus 4.6(H) 2.5 - 4.5 mg/dL [facility] Blood 03/04/2023 5:17 AM EDT 03/04/2023 5:29 AM EDT Narrative Resulting Agency Comment Spec In Lab Chong Campbell MD CHEMISTRY ORDERABLE S Performing Organization Address [facility] Co de Phone Number [facility] [place] [address] * (ABNORMAL) Basic Metabolic Panel (non-fasting) (03/04/2023 5:17 AM EDT) Glucose 113 65 - 199 mg/dL [facility] Comment:Diabetes: >=200 mg/d L plus symptoms Blood Urea Nitrogen 22(H) 8 - 18 mg/dL [facility] Creatinine 1.21(H) 0.70 - 1.20 mg/dL [facility] Sodium 132(L) 135 - 145 mmol/L [facility] Potassium 3.9 3.5 - 5.0 mmol/L [facility] Comment: Please note: ??Patients with WBC >100,000 may have falsely elevated Potassium levels. ??For accurate Potassium quantification in these patients send serum separator tube (gold top) for subsequent determinations. ??Contact the Clinical Chemistry Laboratory if there are any questions. Chloride 95(L) 98 - 107 mmol/L [facility] Carbon Dioxide 27 22 - 31 mmol/L [facility] Anion Gap 10 5 - 15 mmol/L [facility] Calcium 9.6 8.5 - 10.5 mg/dL [facility] Est Glomerular Filtration Rate 47(L) >=60 mL/min/1. 73 m?? [facility] Comment: This patient's estimated GFR [...] Lab Chong Campbell MD CHEMISTRY ORDERABLE S [facility] [place] [address] * (ABNORMAL) Differential, Automated (03/03/2023 4:07 AM EDT) Neutrophil % 64.1 % [facility] Neutrophil Absolute 5.71 1.70 - 6.10 x10(3)/mc L [facility] Lymph % 24.8 % [facility] Lymphocytes Abs 2.2 0.9 - 3.2 x10(3)/mc L [facility] Monocyte % 10.0 % [facility] Monocyte Abs 0.9 0.3 - 0.9 x10(3)/mc L [facility] Eos % 0.1 % [facility] Eosinophils Abs 0.0 0.0 - 0.4 x10(3)/ L [facility] Basophil % 0.3 % [facility] Baso Absolute 0.0 0.0 - 0.1 x10(3)/mc L [facility] Immature Gran % 0.70 % [facility] Comment: Immature granulocytes(IG's)percentage and absolute count will include metamyelocytes, myelocytes, and promyelocytes. Blood smears from CBCs yielding IG's will be scanned manually for concordance. If this scan disagrees with the automated IG or if promyelocytes are noted, a manual differential will be performed. Immature Gran Absolute 0.06(H) 0.00 - 0.04 x10(3)/ L [facility] Blood 03/03/2023 4:07 AM EDT 03/03/2023 4:43 AM EDT Narrative Resulting Agency Comment Spec In Lab Mega Gant MD HEMATOLOGY ORDERABLE S Performing Organization Address City/State/[facility] Co de Phone Number [facility] [place] [address] * (ABNORMAL) Hemogram (03/03/2023 4:07 AM EDT) White Blood Cell 8.9 4.0 - 9.5 x10(3)/mc L [facility] Red Blood Cell 3.70(L) 4.00 - 5.21 x10(6)/mc L [facility] Hemoglobin 12.0 11.7 - 15.5 g/dL [facility] Hematocrit 37.2 35.7 - 45.8 % [facility] Mean Cell Volume 100.5(H) 82.6 - 94.4 fL [facility] Mean Cell Hemoglobin 32.4(H) 27.1 - 32.0 pg [facility] Mean Cell Hemoglobin Concentration 32.3 31.7 - 35.0 g/dL [facility] Platelet 258 145 - 357 x10(3)/mc L [facility] RDW Standard Deviation 47.8(H) 37.0 - 46.0 fL [facility] RDW coefficient of variation 12.8 11.5 - 14.1 % [facility] Mean Platelet Volume 9.3 7.6 - 12.9 fL [facility] NRBC% auto 0.0 % [facility] NRBC Absolute 0.000 0.000 - 0.000 x10(3)/mc L [facility] Blood 03/03/2023 4:07 AM EDT 03/03/2023 4:43 AM EDT Narrative Resulting Agency Comment Spec In Lab Mega Gant MD HEMATOLOGY ORDERABLE S Performing Organization Address City/[facility] Co de Phone Number [facility] [place] [address] * Magnesium (03/03/2023 4:07 AM EDT) Magnesium 0.96 0.69 - 1.07 mmol/L [facility] Blood 03/03/2023 4:07 AM EDT 03/03/2023 4:43 AM EDT Narrative Resulting Agency Comment Spec In Lab Chong Campbell MD CHEMISTRY ORDERABLE S Performing Organization Address City/[facility] Co de Phone Number [facility] [place] [address] * (ABNORMAL) Phosphorus (03/03/2023 4:07 AM EDT) Phosphorus 4.6(H) 2.5 - 4.5 mg/dL [facility] Blood 03/03/2023 4:07 AM EDT 03/03/2023 4:43 AM EDT Narrative Resulting Agency Comment Spec In Lab Chong Campbell MD CHEMISTRY ORDERABLE S Performing Organization Address City/[facility] Co de Phone Number [facility] [place] [address] * (ABNORMAL) Basic Metabolic Panel (non-fasting) (03/03/2023 4:07 AM EDT) Glucose 97 65 - 199 mg/dL [facility] Comment:Diabetes: >=200 mg/d L plus symptoms Blood Urea Nitrogen 18 8 - 18 mg/dL [facility] Creatinine 1.01 0.70 - 1.20 mg/dL [facility] Sodium 138 135 - 145 mmol/L [facility] Potassium 4.3 3.5 - 5.0 mmol/L [facility] Comment: Please note: ??Patients with WBC >100,000 may have falsely elevated Potassium levels. ??For accurate Potassium quantification in these patients send serum separator tube (gold top) for subsequent determinations. ??Contact the Clinical Chemistry Laboratory if there are any questions. Chloride 103 98 - 107 mmol/L [facility] Carbon Dioxide 22 22 - 31 mmol/L [facility] Anion Gap 13 5 - 15 mmol/L [facility] Calcium 9.4 8.5 - 10.5 mg/dL [facility] Est Glomerular Filtration Rate 58(L) >=60 mL/min/1. 73 m?? [facility] Comment: This patient's estimated GFR [...] Lab Chong Campbell MD CHEMISTRY ORDERABLE S [facility] [address] [place] [address] * (ABNORMAL) Vitamin B12 (03/03/2023 4:07 AM EDT) Vitamin B12 1,348(H) 232 - 1,245 pg/mL [facility] Blood 03/03/2023 4:07 AM EDT 03/03/2023 4:43 AM EDT Narrative Resulting Agency Comment Spec In Lab Chong Campbell MD CHEMISTRY ORDERABLE S Performing Organization Address City/State/[facility] Co de Phone Number [facility] [place] [address] * (ABNORMAL) Differential, Automated (03/02/2023 4:09 AM EDT) Pathologist [facility] Neutrophil % 69.7 % [facility] Neutrophil Absolute 6.12(H) 1.70 - 6.10 x10(3)/mc L [facility] Lymph % 20.4 % [facility] Lymphocytes Abs 1.8 0.9 - 3.2 x10(3)/mc L [facility] Monocyte % 8.5 % [facility] Monocyte Abs 0.8 0.3 - 0.9 x10(3)/mc L [facility] Eos % 0.2 % [facility] Eosinophils Abs 0.0 0.0 - 0.4 x10(3)/mc L [facility] Basophil % 0.5 % [facility] Baso Absolute 0.0 0.0 - 0.1 x10(3)/mc L [facility] Immature Gran % 0.70 % [facility] Comment: Immature granulocytes(IG's)percentage and absolute count will include metamyelocytes, myelocytes, and promyelocytes. Blood smears from CBCs yielding IG's will be scanned manually for concordance. If this scan disagrees with the automated IG or if promyelocytes are noted, a manual differential will be performed. Immature Gran Absolute 0.06(H) 0.00 - 0.04 x10(3)/mc L [facility] Blood 03/02/2023 4:09 AM EDT 03/02/2023 4:17 AM EDT Narrative Resulting Agency Comment Spec In Lab Mega Gant MD HEMATOLOGY ORDERABLE S [facility] [place] [address] * (ABNORMAL) Hemogram (03/02/2023 4:09 AM EDT) White Blood Cell 8.8 4.0 - 9.5 x10(3)/mc L [facility] Red Blood Cell 3.38(L) 4.00 - 5.21 x10(6)/mc L [facility] Hemoglobin 11.0(L) 11.7 - 15.5 g/dL [facility] Hematocrit 34.3(L) 35.7 - 45.8 % [facility] Mean Cell Volume 101.5(H) 82.6 - 94.4 fL [facility] Mean Cell Hemoglobin 32.5(H) 27.1 - 32.0 pg [facility] Mean Cell Hemoglobin Concentration 32.1 31.7 - 35.0 g/dL [facility] Platelet 250 145 - 357 x10(3)/mc L [facility] RDW Standard Deviation 49.0(H) 37.0 - 46.0 fL [facility] RDW coefficient of variation 13.1 11.5 - 14.1 % [facility] Mean Platelet Volume 9.1 7.6 - 12.9 fL [facility] NRBC% auto 0.0 % [facility] NRBC Absolute 0.000 0.000 - 0.000 x10(3)/mc L [facility] Blood 03/02/2023 4:09 AM EDT 03/02/2023 4:17 AM EDT Narrative Resulting Agency Comment Spec In Lab Mega Gant MD HEMATOLOGY ORDERABLE S [facility] [place] [address] * Magnesium (03/02/2023 4:09 AM EDT) Magnesium 0.96 0.69 - 1.07 mmol/L [facility] Blood 03/02/2023 4:09 AM EDT 03/02/2023 4:17 AM EDT Narrative Resulting Agency Comment Spec In Lab Chong Campbell MD CHEMISTRY ORDERABLE S Performing Organization Address City/[facility]/ZIP Co de Phone Number [facility] [place] [address] * Phosphorus (03/02/2023 4:09 AM EDT) Phosphorus 3.9 2.5 - 4.5 mg/dL [facility] Blood 03/02/2023 4:09 AM EDT 03/02/2023 4:17 AM EDT Narrative Resulting Agency Comment Spec In Lab Chong Campbell MD CHEMISTRY ORDERABLE S Performing Organization Address [facility] Co de Phone Number [facility] [place] [address] * Basic Metabolic Panel (non-fasting) (03/02/2023 4:09 AM EDT) Glucose 99 65 - 199 mg/dL [facility] Comment:Diabetes: >=200 mg/d L plus symptoms Blood Urea Nitrogen 15 8 - 18 mg/dL [facility] Creatinine 0.96 0.70 - 1.20 mg/dL [facility] Sodium 138 135 - 145 mmol/L [facility] Potassium 4.3 3.5 - 5.0 mmol/L [facility] Comment: Please note: ??Patients with WBC >100,000 may have falsely elevated Potassium levels. ??For accurate Potassium quantification in these patients send serum separator tube (gold top) for subsequent determinations. ??Contact the Clinical Chemistry Laboratory if there are any questions. Chloride 104 98 - 107 mmol/L [facility] Carbon Dioxide 26 22 - 31 mmol/L [facility] Anion Gap 8 5 - 15 mmol/L [facility] Calcium 9.2 8.5 - 10.5 mg/dL [facility] Est Glomerular Filtration Rate 62 >=60 mL/min/1. 73 m?? [facility] Comment: This patient's estimated GFR [...] Lab Chong Campbell MD CHEMISTRY ORDERABLE S [facility] [place] [address] * (ABNORMAL) Differential, Automated (03/01/2023 4:48 PM EDT) Neutrophil % 60.9 % [facility] Neutrophil Absolute 4.51 1.70 - 6.10 x10(3)/mc L [facility] Lymph % 27.2 % [facility] Lymphocytes Abs 2.0 0.9 - 3.2 x10(3)/mc L [facility] Monocyte % 10.2 % [facility] Monocyte Abs 0.8 0.3 - 0.9 x10(3)/mc L [facility] Eos % 0.5 % [facility] Eosinophils Abs 0.0 0.0 - 0.4 x10(3)/mc L [facility] Basophil % 0.5 % [facility] Baso Absolute 0.0 0.0 - 0.1 x10(3)/mc L [facility] Immature Gran % 0.70 % [facility] Comment: Immature granulocytes(IG's)percentage and absolute count will include metamyelocytes, myelocytes, and promyelocytes. Blood smears from CBCs yielding IG's will be scanned manually for concordance. If this scan disagrees with the automated IG or if promyelocytes are noted, a manual differential will be performed. Immature Gran Absolute 0.05(H) 0.00 - 0.04 x10(3)/mc L [facility] Blood 03/01/2023 4:48 PM EDT 03/01/2023 5:03 PM EDT Narrative Resulting Agency Comment Spec In Lab Mega Gant MD HEMATOLOGY ORDERABLE S [facility] [place] [address] * (ABNORMAL) Hemogram (03/01/2023 4:48 PM EDT) White Blood Cell 7.4 4.0 - 9.5 x10(3)/mc L [facility] Red Blood Cell 3.60(L) 4.00 - 5.21 x10(6)/mc L [facility] Hemoglobin 11.7 11.7 - 15.5 g/dL [facility] Hematocrit 36.2 35.7 - 45.8 % [facility] Mean Cell Volume 100.6(H) 82.6 - 94.4 fL [facility] Mean Cell Hemoglobin 32.5(H) 27.1 - 32.0 pg [facility] Mean Cell Hemoglobin Concentration 32.3 31.7 - 35.0 g/dL [facility] Platelet 276 145 - 357 x10(3)/mc L [facility] RDW Standard Deviation 48.9(H) 37.0 - 46.0 fL [facility] RDW coefficient of variation 13.2 11.5 - 14.1 % [facility] Mean Platelet Volume 9.2 7.6 - 12.9 fL [facility] NRBC% auto 0.0 % [facility] NRBC Absolute 0.000 0.000 - 0.000 x10(3)/mc L [facility] Blood 03/01/2023 4:48 PM EDT 03/01/2023 5:03 PM EDT Narrative Resulting Agency Comment Spec In Lab Mega Gant MD HEMATOLOGY ORDERABLE S [facility] [place] [address] * Magnesium (03/01/2023 4:48 PM EDT) Magnesium 0.93 0.69 - 1.07 mmol/L [facility] Blood 03/01/2023 4:48 PM EDT 03/01/2023 5:03 PM EDT Narrative Resulting Agency Comment Spec In Lab Chong Campbell MD CHEMISTRY ORDERABLE S Performing Organization Address City/[facility]/ZIP Co de Phone Number [facility] [place] [address] * Phosphorus (03/01/2023 4:48 PM EDT) Phosphorus 4.1 2.5 - 4.5 mg/dL [facility] Blood 03/01/2023 4:48 PM EDT 03/01/2023 5:03 PM EDT Narrative Resulting Agency Comment Spec In Lab Chong Campbell MD CHEMISTRY ORDERABLE S Performing Organization Address [facility] Co de Phone Number [facility] [place] [address] * Basic Metabolic Panel (non-fasting) (03/01/2023 4:48 PM EDT) Glucose 83 65 - 199 mg/dL [facility] Comment:Diabetes: >=200 mg/d L plus symptoms Blood Urea Nitrogen 14 8 - 18 mg/dL [facility] Creatinine 0.99 0.70 - 1.20 mg/dL [facility] Sodium 140 135 - 145 mmol/L [facility] Potassium 4.3 3.5 - 5.0 mmol/L [facility] Comment: Please note: ??Patients with WBC >100,000 may have falsely elevated Potassium levels. ??For accurate Potassium quantification in these patients send serum separator tube (gold top) for subsequent determinations. ??Contact the Clinical Chemistry Laboratory if there are any questions. Chloride 103 98 - 107 mmol/L [facility] Carbon Dioxide 26 22 - 31 mmol/L [facility] Anion Gap 11 5 - 15 mmol/L [facility] Calcium 9.5 8.5 - 10.5 mg/dL [facility] Est Glomerular Filtration Rate 60 >=60 mL/min/1. 73 m?? [facility] Comment: This patient's estimated GFR [...] Lab Chong Campbell MD CHEMISTRY ORDERABLE S [facility] [place] [address] * ECHO COMPLETE (03/01/2023 4:42 PM EDT) Anatomical Region Laterality Modality Cardiac Other 03/01/2023 4:11 PM EDT Narrative 03/01/2023 5:00 PM EDT ? Echocardiogram Report Name: DELEON, LINDSEY D ? Study Date: 03/01/2023 04:11 PMBP: 169/82 mmHg ? Patient Location: [place] [address] A HR: 70 : 1950 ? Height: 160 cm ? Account: [id number] Age: 72 yrs ? Weight: 79 kg Gender: Female ?BSA: 1.8 m2 Ordering Physician: MARC^Brittany Referring Physician: ALEXANDER GAMEZ Performed By: Gianna Freedman RDCS Reason For Study: Aortic valve stenosis Exam Location: [facility]. Interpretation Summary Left ventricle is of [...] is mild to moderate mitral regurgitation. Procedure Complete-45702. Satisfactory quality. There is normal sinus rhythm. [...] Date: 304:11 PMBP: 169/82 mmHg Patient Location: [address] HR: 70 : 1950 Height: 160 cm Account: [id number] Age: 72 yrs Weight: 79 kg Gender: Female BSA: 1.8 m2 Ordering Physician: JUAN CARLOS^CHONG^Brittany Referring Physician: ALEXANDER GAMEZ Performed By: Gianna Freedman RDCS Reason For Study: Aortic valve stenosis Exam Location: [facility]. Interpretation Summary Left ventricle is of [...] is mild to moderate mitral regurgitation. Procedure Complete-45050. Satisfactory quality. There is normal sinus rhythm. [...] (Bezet) 474 ms MUSE SYSTEM Calculated P [place] 62 degrees MUSE SYSTEM Calculated R [place] -59 degrees MUSE SYSTEM Calculated T [place] 18 degrees MUSE SYSTEM INTERPRETATION Normal sinus rhythm Right bundle branch block Left anterior fascicular block Bifascicular block Abnormal ECG When compared with ECG of 31-JAN-2023 11:34, No significant change was found Confirmed by MD HERNANDEZ ARMIN ([id number]) on 03/01/2023 9:32:34 PM MUSE SYSTEM [...] Mon03/07/23 at 1959, Recovery (Recovery-Hospital Unit) [facility] 03/07/2023 3:55 PM EDT 100 mL/hr 100 [...] area)1809 (JAN Unhold - Provider: Admin Adt) 09 (Given - Provider: Addison Farias, RANGEL) aspirin EC tablet 325 mg 325 mg, Oral, DAILY, First dose on Mon03/01/23 at 1600, Until Discontinued, Routine 0808 (Given - Provider: Tosha Flores RN) 0853 (Given - Provider: Adi Kwan RN)1400 (JAN Hold - Provider: Admin Adt - Reason: Transfer to a Procedural area)1809 (JAN Unhold - Provider: Admin Adt) 08 (Given - Provider: Addison Farias RN) buPROPion SR (Wellbutrin SR) tablet 150 mg 150 mg, Oral, DAILY, First dose on Tracey 03/02/23 at 0900, Until Discontinued, DO NOT CRUSH OR OPEN, Routine 0808 (Given - Provider: Tosha Flores RN) 0853 (Given - Provider: Adi Kwan RN)1400 (JAN Hold - Provider: Admin Adt - Reason: Transfer to a Procedural area)1809 (JAN Unhold - Provider: Admin Adt) 0823 (Given - Provider: Addison Farias RN) citalopram (CeleXA) tablet 40 mg 40 mg, Oral, DAILY, First dose on Tracey 03/02/23 at 0900, Until Discontinued, Routine 0808 (Given [...] Adt - Reason: Transfer to a Procedural area)170 (Not Given - Provider: Arlene Cole RN [...] Until Discontinued, Routine 0513 (Given - Provider: [place] RN) 0625 (Given - Provider: Zhanna Ratliff, RANGEL)1400 (JAN Hold - Provider: Admin Adt - Reason: Transfer to a Procedural area)1809 (JAN Unhold - Provider: Admin Adt) 0558 (Given - Provider: Arlene Cole RN) magnesium sulfate 2 g in sterile water [...] OPEN, Routine 0914 (Given - Provider: Addison Farias, RANGEL) mometasone (Asmanex Twisthaler) 220 mcg/actuation DPI Inhaler 1 puff 1 puff (220 mcg), Inhalation, NIGHTLY, First dose on Mon03/03/23 at 1830, Until Discontinued, Rinse mouth (without swallowing) after each use., Routine, Does the patient have the inspiratory effort to support a dry powder inhaler? Yes 2045 (Given - Provider: Zhanna Ratliff, RANGEL) 1400 (JAN Hold - Provider: Admin Adt - Reason: Transfer to a Procedural area)181 (JAN Unhold - Provider: Admin Adt)2031 (Given [...] area)181 (JAN Unhold - Provider: Admin Adt) pantoprazole [...] RN) 0823 (See Alternative - Provider: Addison Farias RN) [...] area)1810 (JAN Unhold - Provider: Admin Adt) pantoprazole [...] crush, chew, or suck on tablet., Routine 08 (Given - Provider: Addison Farias RN) potassium [...] (Given - Provider: Sylvie Eaton, RANGEL) 1400 ([facility] Hold - Provider: Admin Adt - Reason: Transfer to a Procedural area)1700 (Not Given - Provider: Arlene Cole RN - Reason: Patient not available)1810 ([facility] Unhold - Provider: Admin Adt) senna-docusate (Pericolace) [...] 0855 (Given - Provider: Adi Kwan RN)1400 ([facility] Hold - Provider: Admin Adt - Reason: Transfer to a Procedural area)1810 ([facility] Unhold - Provider: Admin Adt) sodium chloride 0.9 % (flush) (BD PosiFlush Normal Saline 0.9) flush 5 mL (CANCELED) 5 mL, Intravenous, 2 TIMES DAILY, First dose on Mon03/07/23 at 0930, Until Discontinued, Routine 0855 (Given - Provider: Adi Kwan RN)1400 ([facility] Hold - Provider: Admin Adt - Reason: Transfer to a Procedural area)181 ([facility] Unhold - Provider: Admin Adt) sodium chloride 0.9 % (flush) (BD PosiFlush Normal Saline 0.9) flush 5 mL 5 mL, Intravenous, 2 TIMES DAILY, First dose on Mon03/07/23 at 2100, Until Discontinued, Routine 2031 (Given - Provider: Arlene Cole RN) 0824 (Given - Provider: Addison Farias, RANGEL) ziprasidone (Geodon) capsule 20 mg 20 mg, [...] other ordered pain medications are indicated., Routine 05 (Given - Provid er: Arlene Cole RN) [...] Until Mon03/07/23 at 1516, Intra-Operative (Intra-Procedure), Routine 151 (Given - Provider: Mike Torres MD) ipratropium-albuteroL [...] Routine documented in this encounter Care Teams Field Crop [employer]i Farmworker Relationship Specialty Start Date End Date Vanita Churchill APRN PCP - General Family Medicine 02/27/19 07/18/24 documented as of this encounter
--- OUTSIDE RECORDS SUMMARY | 2024-08-12 07:36 | XMS_ITS | Encounter Summary ---
[place] [address] Care Team Providers Care Land Agent Name Role Phone Vanita Churchill Omar SPARROW Primary Care Provider [phone] Encounter Details Date Type Department Care Team (Late st Contact Info) Description 02/13/2023 Refill Cardiology at [address] [phone] Mane Ayala, RN Social History [...] from Ms. Deleon, redirecting refills to the [facility], [place], [place]. Refill request for 90 days with 3 refills advanced, anticipating follow up soon with [facility] Structural Heart (TAVR workup well in process). [...] forwarded to Provider for authorization Timo Ayala RNotm consultant Team Nurse [facility] Ambulatory Cardiology documented in this encounter Plan of Treatment Upcoming Encounters Date Type Department Care Team (Late st Contact Info) Description 02/06/2025 2:40 PM EDT Office Visit Cardiology at [address] [place] [address] Rigoberto Diaz MD [facility] [place] [address] Scheduled Procedures Name Priority Associated Diagnoses Date/Ti ky EGD, UPPER GI ENDOSCOPY (WRV U 2.09) Incontinence of feces, unspecified fecal incontinence type Dysphagia, unspecified type COLONOSCOPY, DIAGNOSTIC (WRV U 3.26) Incontinence of feces, unspecified fecal incontinence type Dysphagia, unspecified type documented as of this encounter Visit Diagnoses Diagnosis ASCVD (arteriosclerotic cardiovascular disease) Unspecified cardiovascular disease Essential hypertension Unspecified essential hypertension documented in this encounter Care Teams Land Agent Relationship Specialty Start Date End Date Vanita Churchill APRN PCP - General Family Medicine 02/27/19 07/18/24 documented as of this encounter
--- OUTSIDE RECORDS SUMMARY | 2024-08-12 07:36 | XMS_ITS | Encounter Summary ---
[place] [address] Care Team Providers Care Licensed Prosthetist Name Role Phone Vanita Churchill Omar SPARROW Primary Care Provider [phone] Reason for Referral * Diagnostic Test (Routine) - Closed Specialty Diagnoses / Procedures Referred By Emy t Referred To Contact Radiology Diagnoses Aortic valve stenosis, etiology of cardiac valve disease unspecified Procedures CT Angiogram Abdomen & Pelvis w Contrast (Generic) Gregorio Goodman MD [facility] [address] [place] [address] [facility] [place] [address] Referral ID Status Reason Start Date Expiration Date V isits Requested Visits Authorized [id number] Closed Specialty Service Requested 12/21/2022 06/19/2024 1 1 * Diagnostic Test (Routine) - Closed Specialty Diagnoses / Procedures Referred By Emy castillo Referred To Contact Radiology Diagnoses Aortic valve stenosis, etiology of cardiac valve disease unspecified Procedures CT Cardiac for Morphology & Function Gregorio Goodman MD [facility] [address] [place] [place] [address] [facility] [place] [address] Referral ID Status Reason Start Date Expiration Date V isits Requested Visits Authorized [id number] Closed Specialty Service Requested 12/21/2022 06/19/2024 1 1 Reason for Visit * Diagnostic Test (Routine) - Closed Specialty Diagnoses / Procedures Referred By Contac t Referred To Contact Radiology Diagnoses Aortic valve stenosis, etiology of cardiac valve disease unspecified Procedures CT Cardiac for Morphology & Function Gregorio Goodman MD [facility] [address] [place] [address] [facility] [place] [address] Referral ID Status Reason Start Date Expiration Date V isits Requested Visits Authorized [id number] Closed Specialty Service Requested 12/21/2022 06/19/2024 1 1 Encounter Details Date Type Department Care Team (Latest Contact Info) Description 02/09/2023 11:30 AM EDT - 02/09/2023 12:47 PM EDT Hospital [place] [address] Gregorio Goodman MD [facility] [address] [place] [place] [address] Aortic valve stenosis, etiology of cardiac valve [...] 2 times daily. FOLIC ACID ORAL 10/12/2010 diclofenac (VOLTAREN) 1 % Gel Apply topically. hydrocortisone 1 % Cream Twice a day 05/20/2020 02/05/2024 oxygen-air delivery systems ([employer] [facility]) Supply, See instructions, # 1 EA, 0 [...] as needed. 09/11/2020 02/05/2024 UNABLE TO FIND John 03/08/2023 calcium-vitamin D 500 mg(1,250mg) -200 unit [...] PM EDT Office Visit Cardiology at [address] [address] Rigoberto Diaz MD [facility] [place] [address] Scheduled Procedures Name Priority Associated Diagnoses Date/Ti [...] who have questions please contact the health patient care coordinator that requested your imaging first. ? Electronically signed by: Richy Caballero MD, [facility] ([phone]), at 02/10/2023 10:13 AM Narrative 02/10/2023 10:13 [...] patients who have questions please contactthe health patient care coordinator that requested your imaging first. Electronically signed by: Richy Caballero MD, [facility]([phone]), at 02/10/2023 10:13 AM Gregorio Goodman MD [...] who have questions please contact the health patient care coordinator that requested your imaging first. ? Electronically signed by: Salma Crespo MD, [facility] ([phone]), at 02/13/2023 11:43 AM Narrative 02/13/2023 11:43 [...] Valsalva, set equidistant: ?? Anterior oblique plane: SERBIAN Anterior oblique angulation: 5 Craniocaudal plane: CAU Craniocaudal angulation: 20 [id number] height: Imaging phase: 95% Right: 15.5 mm [...] of Valsalva, set equidistant: Anterior oblique plane: SERBIAN Anterior oblique angulation: 5 Craniocaudal plane: CAU Craniocaudal angulation: 20 Zyelifm-pt-[id number] height: Imaging phase: 95% Right: 15.5 mm [...] patients who have questions please contactthe health patient care coordinator that requested your imaging first. Gregorio Goodman [...] mLs documented in this encounter Care Teams Licensed Prosthetist Relationship Specialty Start Date End Date Vanita Churchill APRN PCP - General Family Medicine 02/27/19 07/18/24 documented as of this encounter
--- OUTSIDE RECORDS SUMMARY | 2024-08-12 07:36 | XMS_ITS | Encounter Summary ---
[place] [address] Care Team Providers Care Transplant Nurse Practitioner Name Role Phone KwesiVanita mix Omar SPARROW Primary Care Provider [phone] Encounter Details Date Type Department Care Team (Late st Contact Info) Description 02/09/2023 1:50 PM EDT Office Visit Cardiology at [address] [phone] Aortic stenosis, severe Social History Tobacco Use Types Packs/Day Years Used Date Smoking Tobacco: Former Cigarettes 2 30 1 12/21/1973 - 10/21/2004 Smokeless Tobacco: Never Alcohol Use Standard Drinks/Week Comments Yes 0 (1 standard drink = 0.6 oz pur e alcohol) [facility] Inpatient Questions Answer Date Recorded [...] PM EDT Office Visit Cardiology at [address] [place] [address] Rigoberto Diaz MD [facility] [place] [address] Scheduled Procedures Name Priority Associated Diagnoses Date/Ti me EGD, UPPER GI ENDOSCOPY (WRV U 2.09) Incontinence of feces, unspecified fecal incontinence type Dysphagia, unspecified type COLONOSCOPY, DIAGNOSTIC (WRV U 3.26) Incontinence of feces, unspecified fecal incontinence type Dysphagia, unspecified type documented as of this encounter Visit Diagnoses Diagnosis Aortic stenosis, severe Aortic valve disorders documented in this encounter Care Teams Transplant Nurse Practitioner Relationship Specialty Start Date End Date Vanita Churchill, TEST LAB TECHNICIAN PCP - General Family Medicine 02/27/19 07/18/24 documented as of this encounter
--- OUTSIDE RECORDS SUMMARY | 2024-08-12 07:36 | XMS_ITS | Encounter Summary ---
[place] [address] Care Team Providers Care Science Specialist Name Role Phone Kerline Vanita Nelson APRN Primary Care Provider [phone] Reason for Referral * Diagnostic Test (Routine) - Closed Specialty Diagnoses / Procedures Referred By Emy castillo Referred To Contact Cardiology Diagnoses Severe aortic stenosis Procedures Echocardiogram Transthoracic Jassi Lantigua MD [facility] [address] [place] [place] [address] [facility] [place] [address] Referral ID Status Reason Start Date Expiration Date V isits Requested Visits Authorized [id number] Closed Specialty Service Requested 02/23/2023 02/23/2024 1 1 Encounter Details Date Type Department Care Team (Late st Contact Info) Description 02/23/2023 Orders Only Cardiology at [address] [address] Jassi Lantigua MD [facility] [address] [place] [address] Severe aortic stenosis Social History [...] PM EDT Office Visit Cardiology at [address] [place] [address] Rigoberto Diaz MD [facility] [address] Scheduled Procedures Name Priority Associated Diagnoses Date/Ti [...] 2:49 PM EDT ? Echocardiogram Report Name: DELEON, LINDSEY D ? Study Date: 05/05/2023 01:20 PM ? Patient Location: [address] [place] [address] : 1950 ? Height: 160 cm ? Account: [id number] Age: 72 yrs ? Weight: 77 kg Gender: Female ?BSA: 1.8 m2 Ordering Physician: EDWIGE NIEVES Referring Physician: JASSI LANTIGUA Performed By: Gianna Freedman RDCS Reason For Study: S/P TAVR Exam Location: [facility]. Interpretation Summary 1. Normal biventricular size and [...] body of report for complete details. Procedure Complete-[id number]. Satisfactory quality. There is normal sinus rhythm. [...] MD - 05/05/2023 Echocardiogram Report Name: LINDSEY DELEON Study Date: 301:20 PM Patient Location: [id number] : 1950 Height: 160 cm Account: [id number] Age: 72 yrs Weight: 77 kg Gender: Female BSA: 1.8 m2 Ordering Physician: EDWIGE NIEVES Referring Physician: JASSI LANTIGUA Performed By: Gianna Freedman RDCS Reason For Study: S/P TAVR Exam Location: [facility]. Interpretation Summary 1. Normal biventricular size and [...] body of report for complete details. Procedure Complete-[id number]. Satisfactory quality. There is normal sinus rhythm. [...] disorders documented in this encounter Care Teams Science Specialist Relationship Specialty Start Date End Date Vanita Churchill APRN PCP - General Family Medicine 02/27/19 07/18/24 documented as of this encounter
--- OUTSIDE RECORDS SUMMARY | 2024-08-12 07:36 | XMS_ITS | Encounter Summary ---
[place] [address] Care Team Providers Care Historic Sites Supervisor Name Role Phone Vanita Churchill GROUP EXERCISE MANAGER Primary Care Provider [phone] Encounter Details Date Type Department Care Team (Late st Contact Info) Description 02/15/2023 Telephone Cardiology at [address] [address] Clarice Bates RN Social History [...] PM EDT Office Visit Cardiology at [address] [place] [address] Rigoberto Diaz MD [facility] [place] [address] Scheduled Procedures Name Priority Associated Diagnoses Date/Ti me EGD, UPPER GI ENDOSCOPY (WRV U 2.09) Incontinence of feces, unspecified fecal incontinence type Dysphagia, unspecified type COLONOSCOPY, DIAGNOSTIC (WRV U 3.26) Incontinence of feces, unspecified fecal incontinence type Dysphagia, unspecified type documented as of this encounter Visit Diagnoses Not on filedocumented in this encounter Care Teams Historic Sites Supervisor Relationship Specialty Start Date End Date Vanita Churchill APRN PCP - General Family Medicine 02/27/19 07/18/24 documented as of this encounter
--- OUTSIDE RECORDS SUMMARY | 2024-08-12 07:36 | XMS_ITS | Encounter Summary ---
[place] [address] Care Team Providers Care Site Superintendent Name Role Phone Kwesidominguez Vanita Dominguez SPARROW Primary Care Provider [phone] Encounter Details Date Type Department Care Team (Late st Contact Info) Description 01/20/2023 1:40 PM EST Office Visit Cardiology at [address] [phone] Edwige Nieves APRN [facility] [address] [place] [address] Aortic valve stenosis, etiology of cardiac valve [...] EST Pulse 102 01/20/2023 1:55 PM EST CLINICAL TEAM MANAGER notified Temperature - - Respiratory Rate - - Oxygen Saturation 98% 01/20/2023 1:5 5 PM EST Inhaled Oxygen Concentration - - Weight 79.8 kg (176 lb) 01/20/2023 1:55 PM EST Height 161.3 cm (5' 3.5) 01/20/2023 1: 55 PM EST patient reported Body Mass Index 30.69 01/20/2023 1:55 PM EST documented in this encounter Progress Notes * Edwige Nieves, CLINICAL TEAM MANAGER - 01/20/2023 1:40 PM EST Images from the original note were not included. [facility] [address] [address] Structural Heart New Patient Subjective: HPI: Lindsey [...] Moderate MR ?? Social History Lives in [place], [place] 60 pack year smoking hx Works [...] PM EDT Office Visit Cardiology at [address] [address] Rigoberto Diaz MD [facility] [place] [address] [place] [address] Scheduled Orders Name Type Priority Associated Diagnoses [...] unspecified documented in this encounter Care Teams Site Superintendent Relationship Specialty Start Date End Date Vanita Churchill, CLINICAL TEAM MANAGER PCP - General Family Medicine 02/27/19 07/18/24 documented as of this encounter
--- OUTSIDE RECORDS SUMMARY | 2024-08-12 07:36 | XMS_ITS | Encounter Summary ---
[place] [address] Care Team Providers Care Tooling Specialist Name Role Phone Vanita Churchill Omar SPARROW Primary Care Provider [phone] Encounter Details Date Type Department Care Team [...] PM EDT Office Visit Cardiology at [address] [address] Rigoberto Diaz MD [facility] [place] [address] Scheduled Procedures Name Priority Associated Diagnoses Date/Ti me EGD, UPPER GI ENDOSCOPY (WRV U 2.09) Incontinence of feces, unspecified fecal incontinence type Dysphagia, unspecified type COLONOSCOPY, DIAGNOSTIC (WRV U 3.26) Incontinence of feces, unspecified fecal incontinence type Dysphagia, unspecified type documented as of this encounter Visit Diagnoses Not on filedocumented in this encounter Care Teams Tooling Specialist Relationship Specialty Start Date End Date Vanita Churchill APRN PCP - General Family Medicine 02/27/19 07/18/24 documented as of this encounter
--- OUTSIDE RECORDS SUMMARY | 2024-08-12 07:36 | XMS_ITS | Encounter Summary ---
[place] [address] Care Team Providers Care Lpc Name Role Phone Kwesidominguez Vanita Dominguez SPARROW Primary Care Provider [phone] Encounter Details Date Type Department Care Team (Late st Contact Info) Description 03/01/2023 Telephone Cardiology at [address] [address] Josefina Grande RN Social History [...] and patient was escorted via W/C to [facility] Rm: [phone] without incident. Patient belongings were with patient. Josefina Stephenson RNrhit [facility] General Team-Scooby documented in this encounter Plan of Treatment Upcoming Encounters Date Type Department Care Team (Late st Contact Info) Description 02/06/2025 2:40 PM EDT Office Visit Cardiology at [address] [place] [address] Rigoberto Diaz MD [facility] [place] [address] Scheduled Procedures Name Priority Associated Diagnoses Date/Ti me EGD, UPPER GI ENDOSCOPY (WRV U 2.09) Incontinence of feces, unspecified fecal incontinence type Dysphagia, unspecified type COLONOSCOPY, DIAGNOSTIC (WRV U 3.26) Incontinence of feces, unspecified fecal incontinence type Dysphagia, unspecified type documented as of this encounter Visit Diagnoses Not on filedocumented in this encounter Care Teams Lpc Relationship Specialty Start Date End Date Vanita Churchill APRN PCP - General Family Medicine 02/27/19 07/18/24 documented as of this encounter
--- OUTSIDE RECORDS SUMMARY | 2024-08-12 07:36 | XMS_ITS | Encounter Summary ---
Author Organization [facility] [place] [address] Care Team Providers Care Brake Tester Name Role Phone Vanita Churchill SENIOR BILLING CONSULTANT Primary Care Provider [phone] Encounter Details Date Type Department Care Team [...] PM EDT Office Visit Cardiology at [address] [address] Rigoberto Diaz MD [facility] [place] [address] Scheduled Procedures Name Priority Associated Diagnoses Date/Ti me EGD, UPPER GI ENDOSCOPY (WRV U 2.09) Incontinence of feces, unspecified fecal incontinence type Dysphagia, unspecified type COLONOSCOPY, DIAGNOSTIC (WRV U 3.26) Incontinence of feces, unspecified fecal incontinence type Dysphagia, unspecified type documented as of this encounter Visit Diagnoses Not on filedocumented in this encounter Care Teams Brake Tester Relationship Specialty Start Date End Date Vanita Churchill, SENIOR BILLING CONSULTANT PCP - General Family Medicine 02/27/19 07/18/24 documented as of this encounter
--- OUTSIDE RECORDS SUMMARY | 2024-08-12 07:36 | XMS_ITS | Encounter Summary ---
[place] [address] Care Team Providers Care Mechanic/Welder Name Role Phone Vanita Churchill APRN Primary Care Provider [phone] Encounter Details Date Type Department Care Team (Late st Contact Info) Description 02/21/2023 Notes Only Cardiology at [address] [phone] Mike Fraser MD [facility] [place] [address] Social History Tobacco Use Types Packs/Day Years [...] PM EDT Office Visit Cardiology at [address] [place] [address] Rigoberto Diaz MD [facility] [place] [address] Scheduled Procedures Name Priority Associated Diagnoses Date/Ti me EGD, UPPER GI ENDOSCOPY (WRV U 2.09) Incontinence of feces, unspecified fecal incontinence type Dysphagia, unspecified type COLONOSCOPY, DIAGNOSTIC (WRV U 3.26) Incontinence of feces, unspecified fecal incontinence type Dysphagia, unspecified type documented as of this encounter Visit Diagnoses Not on filedocumented in this encounter Care Teams Mechanic/Welder Relationship Specialty Start Date End Date Vanita Churchill APRN PCP - General Family Medicine 02/27/19 07/18/24 documented as of this encounter
--- OUTSIDE RECORDS SUMMARY | 2024-08-12 07:36 | XMS_ITS | Encounter Summary ---
[place] [address] Care Team Providers Care Char Conveyor Tender Name Role Phone Vanita Churchill DETONATOR ASSEMBLER Primary Care Provider [phone] Reason for Visit * Consultation (Routine) - Closed Specialty Diagnoses / Procedures Referred By Emy castillo Referred To Contact Cardiology Diagnoses Aortic valve stenosis, etiology of cardiac valve disease unspecified Dyspnea on exertion STRUCTURAL CARD WORSENING MOD-SEVERE AORTIC STENOSIS, SOBOE. NEEDS VALVE REPLACEMENT Vanita Churchill, KYARA [address] [place] [address] [facility] [address] [place] [phone] Referral ID Status Reason Start Date Expiration Date V isits Requested Visits Authorized [id number] Closed Consult, Test & Treat 12/14/2022 12/14/2023 1 1 Encounter Details Date Type Department Care Team (Late st Contact Info) Description 02/09/2023 10:40 AM EDT Office [place] [address] Rahat Joe MD [facility] [place] [address] Aortic stenosis, severe Social History Tobacco Use [...] office. Best personal regards, Rahat Joe MD [phone] This was a complex high-level consult making a decision to refer this patient for aortic valve replacement therapy. documented in this encounter Plan of Treatment Upcoming Encounters Date Type Department Care Team (Late st Contact Info) Description 02/06/2025 2:40 PM EDT Office Visit Cardiology at [address] [address] Rigoberto Diaz MD [facility] [address] [place] [address] Scheduled Procedures Name Priority Associated Diagnoses Date/Ti me EGD, UPPER GI ENDOSCOPY (WRV U 2.09) Incontinence of feces, unspecified fecal incontinence type Dysphagia, unspecified type COLONOSCOPY, DIAGNOSTIC (WRV U 3.26) Incontinence of feces, unspecified fecal incontinence type Dysphagia, unspecified type documented as of this encounter Visit Diagnoses Diagnosis Aortic stenosis, severe Aortic valve disorders documented in this encounter Care Teams Char Conveyor Tender Relationship Specialty Start Date End Date Vanita Churchill APRN PCP - General Family Medicine 02/27/19 07/18/24 documented as of this encounter
--- OUTSIDE RECORDS SUMMARY | 2024-08-12 07:36 | XMS_ITS | Encounter Summary ---
[place] [address] Care Team Providers Care Aoc Operations Intelligence Officer Name Role Phone Kwesidominguez Vanita Nelson APRN Primary Care Provider [phone] Reason for Visit * Auth/Cert (Routine) Specialty Diagnoses / Procedures Referred By Emy castillo Referred To Contact Diagnoses Aortic stenosis Aortic stenosis Procedures ER Chong Mireles MD [facility] [address] [place] [place] [address] [facility] Referral ID Status Reason Start Date Expiration Date Visits Re quested Visits Authorized [id number] 1 1 Encounter Details Date Type Department Care Team (Late st Contact Info) Description 03/01/2023 9:20 AM EDT Office Visit Cardiology at [address] [address] [place] [address] Aortic valve stenosis, etiology of cardiac valve [...] no 03/01/2023 Feels Threatened by Someone no 04/0 03/2023 Feels Unsafe at Home or Work/School [...] from the original note were not included. [facility] [address], [place] [address] Cardiology Clinic Note Subjective: HPI: Lindsey Deleon [...] Moderate MR ?? Social History Lives in [place], [place] 60 pack year smoking hx Works [...] by mouth daily. ??? UNABLE TO FIND [facility] ??? calcium-vitamin D 500 mg(1,250mg) -200 unit [...] ??? FOLIC ACID ORAL Objective: Vitals: Vitals: 03/01/23905 BP: 148/71 Pulse: 67 SpO2: 99% Weight: [...] (from the past 72 hour(s)). Vitals: 03/01/23 09 BP: 148/71 Pulse: 67 SpO2: 99% Weight: 78.5 kg (173 lb) Height: 160 cm (5' 3) Assessment and Plan: Assessment 1. Mod-Severe ; AUREA 1, MG 30 2. Former smoker, COPD/emphysema 3. PAD s/p RCEA and bilateral iliac stent placement 4. HTN Reccomendations Lindsey Deleon is a 72 y.o. female who was [...] PM EDT Office Visit Cardiology at [address] [place] [address] Rigoberto Diaz MD [facility] [address] [place] [address] Scheduled Procedures Name Priority Associated Diagnoses Date/Ti me EGD, UPPER GI ENDOSCOPY (WRV U 2.09) Incontinence of feces, unspecified fecal incontinence type Dysphagia, unspecified type COLONOSCOPY, DIAGNOSTIC (WRV U 3.26) Incontinence of feces, unspecified fecal incontinence type Dysphagia, unspecified type documented as of this encounter Visit Diagnoses Diagnosis Aortic valve stenosis, etiology of cardiac valve disease unspecified documented in this encounter Care Teams Aoc Operations Intelligence Officer Relationship Specialty Start Date End Date Vanita Churchill, KYARA PCP - General Family Medicine 02/27/19 07/18/24 documented as of this encounter
--- OUTSIDE RECORDS SUMMARY | 2024-08-12 07:36 | XMS_ITS | Encounter Summary ---
[place] [address] Care Team Providers Care Rnp Name Role Phone Vanita Churchill MOLD CARPENTER Primary Care Provider [phone] Encounter Details Date Type Department Care Team (Late st Contact Info) Description 02/16/2023 Notes [place] [phone] Anita Smith PA [facility] [address] [place] [place] [address] Social History Tobacco Use Types Packs/Day Years [...] Team Discussion Date: 02/16/2023 Patient ID: Lindsey D Deleon is a 72 y.o. female A [...] PM EDT Office Visit Cardiology at [address] [place] [address] Rigoberto Diaz MD [facility] [place] [address] Scheduled Procedures Name Priority Associated Diagnoses Date/Ti me EGD, UPPER GI ENDOSCOPY (WRV U 2.09) Incontinence of feces, unspecified fecal incontinence type Dysphagia, unspecified type COLONOSCOPY, DIAGNOSTIC (WRV U 3.26) Incontinence of feces, unspecified fecal incontinence type Dysphagia, unspecified type documented as of this encounter Visit Diagnoses Not on filedocumented in this encounter Care Teams Rnp Relationship Specialty Start Date End Date Vanita Churchill APRN PCP - General Family Medicine 02/27/19 07/18/24 documented as of this encounter
--- OUTSIDE RECORDS SUMMARY | 2024-08-12 07:36 | XMS_ITS | Encounter Summary ---
[place] [address] Care Team Providers Care Blow Mold Machine Operator Name Role Phone Kwesidominguez Vanita Dominguez SPARROW Primary Care Provider [phone] Encounter Details Date Type Department Care Team (Late st Contact Info) Description 12/30/2022 Orders Only Cardiology at [address] [phone] Edwige Nieves FLOOR INSTALLER [facility] [address] [place] [address] Aortic valve stenosis, etiology of cardiac valve [...] PM EDT Office Visit Cardiology at [address] [phone] Rigoberto Diaz MD [facility] [address] [place] [address] Scheduled Procedures Name Priority Associated Diagnoses Date/Ti me EGD, UPPER GI ENDOSCOPY (WRV U 2.09) Incontinence of feces, unspecified fecal incontinence type Dysphagia, unspecified type COLONOSCOPY, DIAGNOSTIC (WRV U 3.26) Incontinence of feces, unspecified fecal incontinence type Dysphagia, unspecified type documented as of this encounter Results * Basic Metabolic Panel (non-fasting) (01/31/2023 9:54 AM EST) Glucose 98 65 - 199 mg/dL [facility] Comment:Diabetes: >=200 mg/d L plus symptoms Blood Urea Nitrogen 12 8 - 18 mg/dL [facility] Creatinine 0.90 0.70 - 1.20 mg/dL [facility] Sodium 138 135 - 145 mmol/L [facility] Potassium 4.5 3.5 - 5.0 mmol/L [facility] Comment: Please note: ??Patients with WBC >100,000 may have falsely elevated Potassium levels. ??For accurate Potassium quantification in these patients send serum separator tube (gold top) for subsequent determinations. ??Contact the Clinical Chemistry Laboratory if there are any questions. Chloride 102 98 - 107 mmol/L [facility] Carbon Dioxide 27 22 - 31 mmol/L [facility] Anion Gap 9 5 - 15 mmol/L [facility] Calcium 9.6 8.5 - 10.5 mg/dL [facility] Est Glomerular Filtration Rate 67 >=60 mL/min/1. 73 m?? [facility] Comment: This patient's estimated GFR was [...] In Lab Edwige Nieves APRN CHEMISTRY ORDERABLES Performing Organization Address City/State/[facility] Co de Phone Number [facility] [address] documented in this encounter Visit Diagnoses Diagnosis Aortic valve stenosis, etiology of cardiac valve disease unspecified documented in this encounter Care Teams Blow Mold Machine Operator Relationship Specialty Start Date End Date Vanita Churchill APRN PCP - General Family Medicine 02/27/19 07/18/24 documented as of this encounter
--- OUTSIDE RECORDS SUMMARY | 2024-08-12 07:36 | XMS_ITS | Encounter Summary ---
[place] [address] Care Team Providers Care Surgical Rn Name Role Phone KwesiVanita mix Omar SPARROW Primary Care Provider [phone] Reason for Visit * Auth/Cert (Routine) Specialty [...] CORONARY ANGIOGRAPHY; W C Mike Torres MD [facility] [address] [place] [address] [facility] Referral ID Status Reason Start Date Expiration Date Visits Re quested Visits Authorized [id number] 1 1 Encounter Details Date Type Department Care Team (Late st Contact Info) Description 01/31/2023 11:00 AM EST - 01/31/2023 12:00 PM EST Surgery [place] [phone] Mike Torres MD [facility] [address] [place] [address] CARDIAC CATHETERIZATION Social History Tobacco Use Types [...] 80.5 kg (177 lb 6.4 oz) 02/01/20 23 11:13 AM EST Height - - Body Mass Index 30.93 01/20/2023 1:55 PM EST documented in this encounter Discharge Instructions * Patient Instructions* Eddie Cervantes, DO - 01/31/2023 1:22 PM EST Increase Hydrochlorothiazide [...] Follow-up: Future Appointments Date Time Provider Department [place] 02/09/2023 10:15 AM LAB, THREE L Lab 3L MAJOR HUNTER 02/09/2023 11:[address] [facility] [address] [facility] RAD CT [facility] Rad 02/09/2023 1:15 PM [facility] DX ROOM 3 MH Xray [facility] 02/09/2023 1:50 PM NURSE, CARDIOLOGY [facility] CARD 4A [facility] 02/09/2023 2:00 PM Rahat Joe MD [facility] CARDIAC [facility] 10/17/2023 9:30 AM Alley Johnson, KYARA [facility] New Medications to be Picked Up Increase Hydrochlorothiazide to 25mg daily and increase amlodipine to 5mg daily For questions regarding this document or issues relating to this hospitalization on the Medical Service, please contact your inpatient physician through the [facility] [employer] Farm[employer] . Issues afterhours and on weekends will [...] oxygen-air delivery systems ([employer] [facility]) Supply, See instructions, # 1 EA, 0 [...] date: 01/31/2023 Attending Physician: Mike Torres MD [facility] Interventional Cardiology Adult Pre-Procedure H&P Update: Cardiac Catheterization Lindsey Deleon [id number] Chief Complaint: Dyspnea, aortic valve stenosis HPI: Lindsey Deleon is a 72 y.o. female referred for cardiac catheterization by her primary clinical lining scrubber Dr Salvador ([facility]) for evaluation of cardiac hemodynamics and coronary artery anatomy in the setting of progressive symptomatic severe aortic valve stenosis. She was recently seen by Mrs Edwige Nieves KYARA at [facility] Cards / Valve clinic. Her medical history [...] Meagan Kuhn with her today. Lives in [facility] Outpatient Medications Marked as Taking for the [...] RITA Joe Interventional Cardiology 01/31/23 12:06 PM [facility] Pager: [phone] documented in this encounter Miscellaneous Notes * Brief Op Note - Mike Torres MD - 01/31/2023 1:21 PM EST Preliminary Cardiac Catheterization Procedure Note: Patient Name: Lindsey Deleon : [id number] MR#: [id number] Case Date: 01/31/2023 [employer] Farm[employer]: Surgeon(s) and Role: * Mike Torres MD [...] the original note were not included. Formerly [facility] [place] [address] CARDIOVASCULAR MEDICINE OUTPATIENT CONSULTATION [facility] Primary Care Provider: Vanita Churchill APRN REFERRING PROVIDER: Vanita Churchill CHIEF COMPLAINT: Aortic stenosis PROBLEM LIST: 1. Aortic stenosis A. Aortic valve area 0.7 cm??, mean gradient 49 mmHg by cardiac catheterization, 01/2023 2. COPD, severe A. Greater than 13-sjte-ntma smoking history, quit 2003 B. 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 She smoked heavily until 2003, when she [...] cost of higher pacemaker rates and unknown ad terminal makeup operator (>7 year) valve durability. We reviewed that [...] PM EDT Office Visit Cardiology at [address] [phone] Rigoberto Diaz MD [facility] [place] [address] Scheduled Procedures Name Priority Associated Diagnoses Date/Ti nh EGD, UPPER GI ENDOSCOPY (WRV U 2.09) [...] For Angio W/R Heart Cath Img S&I ([id number]) 01/31/2023 12:23 PM EST Aortic valve stenosis, [...] cardiac valve disease unspecified BASIC METABOLIC PANEL Routine 01/31/2023 9:54 AM EST Aortic valve stenosis, etiology of cardiac valve disease unspecified documented in this encounter Results * CARDIAC CATHETERIZATION (01/31/2023 1:15 PM EST) Anatomical Region Laterality Modality Other Narrative 01/31/2023 1:57 PM EST ?[facility] ? Cardiac Catheterization/Intervention Report ? Patient Name: Deleon, Lindsey D. ? Procedure Date: 01/31/2023 ? A #: [id number] ? Primary Physician: Brian, Mike T ? Case #: [id number] ? File Name: [id number] ? Catheterization Order Number: [id number] ? [facility] ? Final Report [place], [place] ? Patient Name: ? Lindsey D. Deleon ?ID#: ?[id number] ? : ?1950 ? Procedure Date: ? [...] was designated as ASA Class III. The [facility] clinical frailty ?scale is 4: Vulnerable. ? [...] Torres M.D. ? Electronically Signed by: Mike T Brian, M.D. ? Report Finalized: 01/31/2023 ??13:51 ? Mike Torres MD CARDIAC CATH ORDERAB LES * EKG 12 Lead (01/31/2023 11:34 AM EST) Ventricular rate 83 BPM MUSE SYSTEM Atrial Rate 83 BPM MUSE SYSTEM P-R Interval 150 ms MUSE SYSTEM QRS Duration 118 ms MUSE SYSTEM Q-T Interval 410 ms MUSE SYSTEM QTC Calculated (Bezet) 481 ms MUSE SYSTEM Calculated P [place] 69 degrees MUSE SYSTEM Calculated R [place] -30 degrees MUSE SYSTEM Calculated T [place] 28 degrees MUSE SYSTEM INTERPRETATION Normal sinus rhythm Left axis deviation Right bundle branch block Abnormal ECG When compared with ECG of 21-MAY-2019 14:39, No significant change was found Confirmed by MD Macy, [facility] ([id number]) on 01/31/2023 1:32:49 PM MUSE SYSTEM 01/31/2023 11:3 4 AM EST 01/31/2023 1:32 PM EST Edwige Nieves APRN ECG ORDERABLES MUSE SYSTEM * (ABNORMAL) Differential, Automated (01/31/2023 9:54 AM EST) Neutrophil % 69.8 % [facility] Neutrophil Absolute 12.99(H) 1.70 - 6.10 x10(3)/mc L [facility] Lymph % 18.1 % [facility] Lymphocytes Abs 3.4(H) 0.9 - 3.2 x10(3)/mc L [facility] Monocyte % 6.5 % [facility] Monocyte Abs 1.2(H) 0.3 - 0.9 x10(3)/ L [facility] Eos % 2.6 % [facility] Eosinophils Abs 0.5(H) 0.0 - 0.4 x10(3)/[facility] Basophil % 0.5 % [facility] Baso Absolute 0.1 0.0 - 0.1 x10(3)/mc L [facility] Immature Gran % 2.50 % [facility] Comment: Immature granulocytes(IG's)percentage and absolute count will include metamyelocytes, myelocytes, and promyelocytes. Blood smears from CBCs yielding IG's will be scanned manually for concordance. If this scan disagrees with the automated IG or if promyelocytes are noted, a manual differential will be performed. Immature Gran Absolute 0.47(H) 0.00 - 0.04 x10(3)/ L [facility] Blood 01/31/2023 9:54 AM EST 01/31/2023 9:59 AM EST Narrative Resulting Agency Comment Spec In Lab Edwige Nieves APRN HEMATOLOGY ORDERABLE S [facility] [place] [address] * (ABNORMAL) Hemogram (01/31/2023 9:54 AM EST) White Blood Cell 18.6(H) 4.0 - 9.5 x10(3)/mc L [facility] Red Blood Cell 3.69(L) 4.00 - 5.21 x10(6)/ L [facility] Hemoglobin 12.2 11.7 - 15.5 g/dL [facility] Hematocrit 37.3 35.7 - 45.8 % [facility] Mean Cell Volume 101.1(H) 82.6 - 94.4 fL [facility] Mean Cell Hemoglobin 33.1(H) 27.1 - 32.0 pg [facility] Mean Cell Hemoglobin Concentration 32.7 31.7 - 35.0 g/dL [facility] Platelet 390(H) 145 - 357 x10(3)/mc L [facility] RDW Standard Deviation 48.7(H) 37.0 - 46.0 fL [facility] RDW coefficient of variation 13.2 11.5 - 14.1 % [facility] Mean Platelet Volume 8.9 7.6 - 12.9 fL [facility] NRBC% auto 0.0 % [facility] NRBC Absolute 0.000 0.000 - 0.000 x10(3)/mc L [facility] Blood 01/31/2023 9:54 AM EST 01/31/2023 9:59 AM EST Narrative Resulting Agency Comment Spec In Lab Edwige L Lizbeth SHUTTLE BUS DRIVER HEMATOLOGY ORDERABLE S Performing Organization Address City/State/[facility] Co de Phone Number [facility] [place] [address] * Basic Metabolic Panel (non-fasting) (01/31/2023 9:54 AM EST) Glucose 98 65 - 199 mg/dL [facility] Comment:Diabetes: >=200 mg/d L plus symptoms Blood Urea Nitrogen 12 8 - 18 mg/dL [facility] Creatinine 0.90 0.70 - 1.20 mg/dL [facility] Sodium 138 135 - 145 mmol/L [facility] Potassium 4.5 3.5 - 5.0 mmol/L [facility] Comment: Please note: ??Patients with WBC >100,000 may have falsely elevated Potassium levels. ??For accurate Potassium quantification in these patients send serum separator tube (gold top) for subsequent determinations. ??Contact the Clinical Chemistry Laboratory if there are any questions. Chloride 102 98 - 107 mmol/L [facility] Carbon Dioxide 27 22 - 31 mmol/L [facility] Anion Gap 9 5 - 15 mmol/L [facility] Calcium 9.6 8.5 - 10.5 mg/dL [facility] Est Glomerular Filtration Rate 67 >=60 mL/min/1. 73 m?? [facility] Comment: This patient's estimated GFR [...] Nieves APRN CHEMISTRY ORDERABLES Performing Organization Address City/State/[facility] Co de Phone Number [facility] [place] [address] documented in this encounter Visit Diagnoses Diagnosis [...] at 1341, Until Mon01/31/23 at 1415, KEYON RM.: cabinet override midazolam (pf) (Versed) (1 mg/mL) [...] Routine 1415 (Given - Provid er: Keyon Rm, RN - Comment: Dr. Torres ordered to give 10mg to start. Pt. BP droped from 210 to 170. 10mg held) Continuous Medication Order 01/29/2023 01/30/2023 01/31/2023 sodium chloride 0.9% infusion (CANCELED) 75 mL/hr, Intravenous, CONTINUOUS, Starting on 01/31/23 at 1130, Until 01/31/23 at 1639, Cath (Day of Procedure) 1133 (New Bag - Prov ider: Vincent Gayle RN) sodium chloride 0.9% infusion 1 mL/hr, Intravenous, CONTINUOUS, Starting on e 01/31/23 at 1430, Until 01/31/23 at 1529, Cath (Recovery-Hospital Unit) 1430 [...] PRN, Starting on 01/31/23 at 1236, Until Mon01/31/23 at 1316, Administer over 2 Minutes, Intra-Operative (Intra-Procedure) 1246 (Given - Provid er: Mike Torres MD) documented in this encounter Care Teams Surgical Rn Relationship Specialty Start Date End Date Vanita Churchill APRN PCP - General Family Medicine 02/27/19 07/18/24 documented as of this encounter
--- OUTSIDE RECORDS SUMMARY | 2024-08-12 07:36 | XMS_ITS | Encounter Summary ---
Author Organization [facility] [place] [address] Care Team Providers Care Cracker And Cookie Machine Operator Name Role Phone Kwesidominguez Vanita Dominguez SPARROW Primary Care Provider [phone] Encounter Details Date Type Department Care Team (Late st Contact Info) Description 03/02/2023 [place] [phone] Edwige Nieves APRN [facility] [address] [place] [place] [address] Social History Tobacco Use Types Packs/Day Years [...] PM EDT Office Visit Cardiology at [address] [place] [address] Rigoberto Diaz MD [facility] [place] [address] Scheduled Procedures Name Priority Associated Diagnoses Date/Ti me EGD, UPPER GI ENDOSCOPY (WRV U 2.09) Incontinence of feces, unspecified fecal incontinence type Dysphagia, unspecified type COLONOSCOPY, DIAGNOSTIC (WRV U 3.26) Incontinence of feces, unspecified fecal incontinence type Dysphagia, unspecified type documented as of this encounter Visit Diagnoses Not on filedocumented in this encounter Care Teams Cracker And Cookie Machine Operator Relationship Specialty Start Date End Date Vanita Churchill APRN PCP - General Family Medicine 02/27/19 07/18/24 documented as of this encounter
--- OUTSIDE RECORDS SUMMARY | 2024-08-12 07:36 | XMS_ITS | Encounter Summary ---
[place] [address] Care Team Providers Care Hat Braider Name Role Phone KwesiVanita mix Omar SPARROW Primary Care Provider [phone] Reason for Visit * Auth/Cert (Routine) Specialty [...] CORONARY ANGIOGRAPHY; W C Mike Torres MD [facility] [address] [place] [address] [facility] Referral ID Status Reason Start Date Expiration Date Visits Re quested Visits Authorized [id number] 1 1 Encounter Details Date Type Department Care Team (Latest Contact Info) Description 01/31/2023 9:38 AM EST - 01/31/2023 4:40 PM EST Hospital Encounter [place] [id number] Mike Torres MD [facility] [place] [address] Aortic valve stenosis, etiology of cardiac valve [...] Lab 3L MAJOR HUNTER 02/09/2023 11:30 AM [facility] CT 4 [facility] RAD CT [facility] Rad 02/09/2023 1:15 PM [facility] DX ROOM 3 Xray [facility] Rad 02/09/2023 1:50 PM NURSE, CARDIOLOGY [facility] [place] [facility]A [facility] 02/09/2023 2:00 PM Rahat Joe MD [facility] 10/17/2023 9:30 AM Alley Johnson, KYARA [facility] New Medications to be Picked Up Increase Hydrochlorothiazide to 25mg daily and increase amlodipine to 5mg daily For questions regarding this document or issues relating to this hospitalization on the Medical Service, please contact your inpatient physician through the [facility] Dandy Operator . Issues afterhours and on weekends will [...] date: 01/31/2023 Attending Physician: Mike Torres MD [facility] Interventional Cardiology Adult Pre-Procedure H&P Update: Cardiac Catheterization Lindsey Deleon [id number] Chief Complaint: Dyspnea, aortic valve stenosis HPI: Lindsey Deleon is a 72 y.o. female referred for cardiac catheterization by her primary clinical curriculum consultant Dr Salvador ([facility]) for evaluation of cardiac hemodynamics and coronary artery anatomy in the setting of progressive symptomatic severe aortic valve stenosis. She was recently seen by Mrs Gibbons Lizbeth KYARA at [facility] Cards / Valve clinic. Her medical history [...] Meagan Kuhn with her today. Lives in [facility] Outpatient Medications Marked as Taking [...] RITA Joe Interventional Cardiology 01/31/23 12:06 PM [facility] Pager: [phone] documented in this encounter Miscellaneous Notes * Brief Op Note - Mike Torres MD - 01/31/2023 1:21 PM EST Preliminary Cardiac Catheterization Procedure Note: Patient Name: Lindsey Deleon : [id number] MR#: [id number] Case Date: 01/31/2023 Dandy Operator: Surgeon(s) and Role: * Mike Torres MD [...] from the original note were not included. [facility] [place] [phone] CARDIOVASCULAR MEDICINE OUTPATIENT CONSULTATION [facility] Lindsey Bibi [place] Primary Care Provider: Vanita Churchill APRN REFERRING PROVIDER: Vanita Churchill CHIEF COMPLAINT: Aortic stenosis PROBLEM LIST: 1. Aortic stenosis A. Aortic valve area 0.7 cm??, mean gradient 49 mmHg by cardiac catheterization, 01/2023 2. COPD, severe A. Greater than [id number] smoking history, quit 2003 B. 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 She smoked heavily until 2003, when she [...] cost of higher pacemaker rates and unknown longterm (>7 year) valve durability. We reviewed that [...] PM EDT Office Visit Cardiology at [address] [phone] Rigoberto Diaz MD [facility] [place] [address] Scheduled Procedures Name Priority Associated Diagnoses Date/Ti [...] For Angio W/R Heart Cath Img S&I ([id number]) 01/31/2023 12:23 PM EST Aortic valve stenosis, [...] Modality Other Narrative 01/31/2023 1:57 PM EST ?[facility] ? Cardiac Catheterization/Intervention Report ? Patient Name: Deleon, Lindsey D. ? Procedure Date: 01/31/2023 ? A #: [id number] ? Primary Physician: Brian, Mike T ? Case #: [id number] ? File Name: [id number] ? Catheterization Order Number: [id number] ? [facility] ? Final Report [place], [place] ? Patient Name: ? Lindsey D. Deleon ?ID#: ?[id number] ? : ?1950 ? Procedure Date: ? [...] (Bezet) 481 ms MUSE SYSTEM Calculated P [place] 69 degrees MUSE SYSTEM Calculated R [place] -30 degrees MUSE SYSTEM Calculated T [place] 28 degrees MUSE SYSTEM INTERPRETATION Normal sinus rhythm Left axis deviation Right bundle branch block Abnormal ECG When compared with ECG of 21-MAY-2019 14:39, No significant change was found Confirmed by MD Macy, [facility] ([id number]) on 01/31/2023 1:32:49 PM MUSE SYSTEM 01/31/2023 11:3 4 AM EST 01/31/2023 1:32 PM EST Edwige Elisa Nieves APRN ECG ORDERABLES MUSE SYSTEM * (ABNORMAL) Differential, Automated (01/31/2023 9:54 AM EST) Neutrophil % 69.8 % [facility] Neutrophil Absolute 12.99(H) 1.70 - 6.10 x10(3)/mc L [facility] Lymph % 18.1 % [facility] Lymphocytes Abs 3.4(H) 0.9 - 3.2 x10(3)/mc L [facility] Monocyte % 6.5 % [facility] Monocyte Abs 1.2(H) 0.3 - 0.9 x10(3)/ L [facility] Eos % 2.6 % [facility] Eosinophils Abs 0.5(H) 0.0 - 0.4 x10(3)/ L [facility] Basophil % 0.5 % [facility] Baso Absolute 0.1 0.0 - 0.1 x10(3)/mc L [facility] Immature Gran % 2.50 % [facility] Comment: Immature granulocytes(IG's)percentage and absolute count will include metamyelocytes, myelocytes, and promyelocytes. Blood smears from CBCs yielding IG's will be scanned manually for concordance. If this scan disagrees with the automated IG or if promyelocytes are noted, a manual differential will be performed. Immature Gran Absolute 0.47(H) 0.00 - 0.04 x10(3)/ L [facility] Blood 01/31/2023 9:54 AM EST 01/31/2023 9:59 AM EST Narrative Resulting Agency Comment Spec In Lab Edwige Nieves [facility] ORDERABLE S Performing Organization Address City/State/[facility] Co de Phone Number [facility] [place] [address] * (ABNORMAL) Hemogram (01/31/2023 9:54 AM EST) White Blood Cell 18.6(H) 4.0 - 9.5 x10(3)/mc L [facility] Red Blood Cell 3.69(L) 4.00 - 5.21 x10(6)/mc L [facility] Hemoglobin 12.2 11.7 - 15.5 g/dL [facility] Hematocrit 37.3 35.7 - 45.8 % [facility] Mean Cell Volume 101.1(H) 82.6 - 94.4 fL [facility] Mean Cell Hemoglobin 33.1(H) 27.1 - 32.0 pg [facility] Mean Cell Hemoglobin Concentration 32.7 31.7 - 35.0 g/dL [facility] Platelet 390(H) 145 - 357 x10(3)/mc L [facility] RDW Standard Deviation 48.7(H) 37.0 - 46.0 fL [facility] RDW coefficient of variation 13.2 11.5 - 14.1 % [facility] Mean Platelet Volume 8.9 7.6 - 12.9 fL [facility] NRBC% auto 0.0 % [facility] NRBC Absolute 0.000 0.000 - 0.000 x10(3)/mc L [facility] Blood 01/31/2023 9:54 AM EST 01/31/2023 9:59 AM EST Narrative Resulting Agency Comment Spec In Lab Edwige Nieves [facility] ORDERABLE S Performing Organization Address City/State/[facility] Co de Phone Number [facility] [place] [address] * Basic Metabolic Panel (non-fasting) (01/31/2023 9:54 AM EST) Glucose 98 65 - 199 mg/dL [facility] Comment:Diabetes: >=200 mg/d L plus symptoms Blood Urea Nitrogen 12 8 - 18 mg/dL [facility] Creatinine 0.90 0.70 - 1.20 mg/dL [facility] Sodium 138 135 - 145 mmol/L [facility] Potassium 4.5 3.5 - 5.0 mmol/L [facility] Comment: Please note: ??Patients with WBC >100,000 may have falsely elevated Potassium levels. ??For accurate Potassium quantification in these patients send serum separator tube (gold top) for subsequent determinations. ??Contact the Clinical Chemistry Laboratory if there are any questions. Chloride 102 98 - 107 mmol/L [facility] Carbon Dioxide 27 22 - 31 mmol/L [facility] Anion Gap 9 5 - 15 mmol/L [facility] Calcium 9.6 8.5 - 10.5 mg/dL [facility] Est Glomerular Filtration Rate 67 >=60 mL/min/1. 73 m?? [facility] Comment: This patient's estimated GFR [...] Nieves APRN CHEMISTRY ORDERABLES Performing Organization Address City/State/[facility] Co de Phone Number [facility] [place] [address] documented in this encounter Visit Diagnoses Diagnosis [...] Mon01/31/23 at 1415, KEYON RM: cabinet override sodium chloride 0.9% infusion 75 mL/hr, Intravenous, CONTINUOUS, Starting on Mon01/31/23 at 1130, Until Mon01/31/23 at 1639, Cath (Day of Procedure) New Bag 01/31/2023 11:33 AM EST 75 mL/hr 75 mL/hr documented in this encounter Active and Recently Administered Medications Times are shown in EST. Scheduled Medication Order 01/29/2023 01/30/202301/3101/31/2023 amLODIPine (Norvasc) tablet 5 mg (COMPLETED) 5 [...] units/mL) injection (CANCELED) ONCE PRN, Starting on Mon01/31/23 at 1247, Until Mon01/31/23 at 1316, Intra-Operative (Intra-Procedure), Routine 1247 (Given - Provid er: Jannette Loza RN) iohexoL (Omnipaque) (350 mg/mL) solution (CANCELED) ONCE PRN, Starting on Mon01/31/23 at 1313, Until Mon01/31/23 at 1316, Intra-Operative (Intra-Procedure), Routine 1313 (Given [...] MD) documented in this encounter Care Teams Hat Braider Relationship Specialty Start Date End Date Vanita Churchill, KYARA PCP - General Family Medicine 02/27/19 07/18/24 documented as of this encounter
--- OUTSIDE RECORDS SUMMARY | 2024-08-12 07:36 | XMS_ITS | Encounter Summary ---
Author Organization [facility] [address] Care Team Providers Care Slipman Name Role Phone KwesiVanita mix Omar SPARROW Primary Care Provider [phone] Reason for Visit * Auth/Cert (Routine) Specialty Diagnoses / Procedures Referred By Emy castillo Referred To Contact Diagnoses Aortic stenosis Aortic stenosis Procedures ER Chong Mireles MD [facility] [address] [place] [address] [facility] Referral ID Status Reason Start Date Expiration Date Visits Re quested Visits Authorized [id number] 1 1 Encounter Details Date Type Department Care Team (Late st Contact Info) Description 03/07/2023 1:00 PM EDT - 03/07/2023 2:38 PM [place] [id number] Mike Torres MD [facility] [address] [place] [address] CARDIAC CATHETERIZATION Social History Tobacco Use Types [...] Patient Age: 72 y.o. Birthdate: 1950 Language: Swedish Race: White Ethnicity: Not nor Admit Date: 03/01/2023 Discharge Date: 03/08/2023 Attending Physician: Rahat Vargas MD Follow-up Recommendations for Providers: ??? Please continue routine management of cardiovascular risk factors including blood pressure, lipids, glucose, etc. ??? Please note any medication changes. ??? Patient to follow up with PCP, Vanita Churchill APRN, or Primary Assisted Living Assistant, in ~ 7-10 days. ??? Patient to follow up with Liberal Arts Dean, Dr. Mike Torres, in 1 month with a chest x-ray, EKG, Echo, CBC, and CMP. ?? Mpyg-Mdjepx-kr interval: After initial 30 day follow-up appointment , all TAVR patients will follow-up again in one year with an echo. Inpatient Provider Contact Information: [facility] Section of Cardiac Surgery [facility] [place], [place] [address] FAX [phone] Discharge Diagnoses (Hospital Problems) Primary Diagnoses: Aortic [...] 5.9) performed by Mike Torres MD at [facility] CATH LABS ??? PRG X-RAY AORTA LEG ARTERIES N/A 08/15/2017 AORTOGRAPHY, ABD. + AYAAN. ILIOFEMORAL LE BY SERIALOGRAPHY S & I (WRVU 1.79) performed by Jake Montaño MD at [facility] MAIN OR ??? PRO COLONOSCOPY, DIAGNOSTIC 12/06/2012 COLONOSCOPY, DIAGNOSTIC performed by Mik Dumont MD at [facility] ENDOSCOPY ??? PRO LAPAROSCOPY REPAIR PARAESOPHAGEAL HERNIA INCL FUNDOPLASTY W/O MESH 02/18/2013 LAPAROSCOPIC PARAESOPHAGEAL HERNIA REPAIR W/FUNDOPLASTY, W/O MESH performed by Moncho Bowers MD at [facility] MAIN OR ??? PRO PLACE CATH FIRST ORDER ART, ABD/PELV 08/15/2017 CATHETER PLACEMENT, SELECTIVE FIRST ORDER IN ARTERIAL SYSTEM, EACH FIRST ORDER ABDOMINAL, PELVIC, OR LOWER EXTREMITY ARTERY BRANCH,WITHIN A VASCULAR FAMILY (WRVU 4.9) performed by Jake Montaño MD at [facility] MAIN OR ? ? PRO REVSC OPEN/PERCUTANEOUS ILIAC ART W STNT PLMT&ANGIO PATRICE VSL UNILAT Bilateral 08/15/2017 REVSC OPN\PRQ ILIAC ART W\STNT PLMT & ANGIOP SAME VSL (WRVU 10) performed by Jake Montaño MD at [facility] MAIN OR ??? PRO THROMBOENDARTECTMY ILIOFEMORAL Left 08/15/2017 @ENDARTERECTOMY, ILIOFEMORAL W OR W/O PATCH GRAFT (WRVU 19.86) performed by Jake Montaño MD at [facility] MAIN OR ??? PRO THROMBOENDARTECTMY NECK, NECK INCIS Right 06/10/2019 @ENDARTERECTOMY, CAROTID, VERTEBRAL,SUBCLAVIAN W\WO PATCH GRAFT (WRVU 21.16) performed by Jake Montaño MD at [facility] MAIN OR ??? PRO UPPER GI ENDOSCOPY, BIOPSY 12/06/2012 EGD WITH BIOPSY performed by Mik Dumont MD at [facility] ENDOSCOPY ??? TUBAL LIGATION Prior To Admission Medications Facility-Administered Medications Prior to Admission Medication Dose Route Frequency Provider Last Rate Last Admin ??? mupirocin (Bactroban) 2 % ointment Topical (Top) BID Edwige Nieves, VARNISHING UNIT OPERATOR ??? sodium chloride 0.9 % (flush) (BD PosiFlush Normal Saline 0.9) flush 5 mL 5 mL Intravenous BID Edwige Nieves, VARNISHING UNIT OPERATOR ??? sodium chloride 0.9 % (flush) (BD PosiFlush Normal Saline 0.9) flush 5-20 mL 5-20 mL Intravenous Q1 Min PRN Edwige Nieves, VARNISHING UNIT OPERATOR ??? lidocaine (Xylocaine) 1% (10 mg/mL) injection 3 mg 0.3 mL Subcutaneous Once PRN Edwige Nieves,VARNISHING UNIT OPERATOR Medications Prior to Admission Medication Sig Dispense [...] TF TAVR Lindsey Deleon was admitted to [facility] on 03/01/2023 via the Cardiology Service for expedited TAVR workup and procedure in light of rapidly progressive symptoms. She was brought to the laborer construction or leak gang 03/07/[address] Rahat Vargas and Mike [...] Wt 76.7 kg (169 lb 1.5 oz) EtA383% BMI 29.96 kg/m?? Patient Vitals for the [...] if you have questions. Please call your Liberal Arts Dean's office if you have any discharge or drainage from your procedural sites. Your Liberal Arts Dean, Dr. Mike Torres and/or the Animal Care Specialist may be reached at . Antibiotic prophylaxis: [...] Please refer to the card with the [place] [employer] Guidelines for more information. You have been provided with a copy of this card. Please refer to the [place] [employer] Guidelines for more information. Good [...] friends, go to a movie, go to anglican, etc. Heavy activities: No hunting, skiing, jogging, [...] should resume a low fat, low cholesterol, [place] [employer] Diet. Driving: No driving for 3 days. Shower/Bath: You may shower daily. No baths, soaking, or swimming for the first week. Wound care: Please remove your dressings 48 hours after your procedure. Wash the sites daily with soap and rinse well, pat dry. Assess for any signs of infection such as increased redness, pain, warmth or drainage. Please call your brick maker's office if you have any discharge or drainage from your procedural sites. If there is a lot of swelling, apply tayla wraps during the day and remove at bedtime. Elevate your legs when you are sitting. Home oxygen therapy: N/A Follow up appointments: ??? Please schedule a follow-up appointment with your PCP, Vanita Churchill APRN, or Primary Assisted Living Assistant, in ~ 7-10 days. ??? You have a follow-up appointment with your Liberal Arts Dean, Dr. Mike Torres, in 1month with a chest x-ray, EKG, Echo, and labs prior to your appointment. ?? Ilyl-Corhjo-pj interval: After initial 30 day follow-up appointment [...] AM Alley Johnson APRN [facility] Arrive at: Medical Surgery Nurse [address] [phone] Future Orders Complete By Expires CBC (with Diff) [XRI234 Custom] 04/07/2023 (Approximate) 03/08/2024 Process Instructions: INCLUDES: WBC, RBC, Hgb, Hct, Platelets, RBC Indices and Differential Scheduling Instructions: Comments: Questions: Comprehensive metabolic panel (non-fasting) [LAB17 Custom] 04/07/2023 (Approximate) 03/08/2024 Process Instructions: INCLUDES: Calcium, T Protein, Albumin, AST, ALT, Alk Phos, T Bili, BUN, Creat, GFR, Glucose, Lytes. Scheduling Instructions: Comments: Questions: Echocardiogram Transthoracic [72583 CPT(R)] 04/07/2023 (Approximate) 03/08/2024 Process Instructions: Scheduling Instructions: Questions: Where will study be performed?: [facility] Does the patient have Congenital Heart Disease?: Does patient require sedation?: GA rationale: EKG 12 Lead [64642 CPT(R)] 04/07/2023 (Approximate) 03/08/2024 Process Instructions: Scheduling Instructions: Questions: Which location will this be performed?: [place] Is a rhythm strip needed?: No XR Chest PA & Lateral (Generic) [13855 54238 Custom] 04/07/2023 (Approximate) 03/08/2024 Process Instructions: Scheduling Instructions: Questions: Reason for exam and clinical history: s/p TF TAVR Clinical information / guzman questions for radiologist: Where will study be performed?: [facility] Radiology Portable exam?: Stat read required?: Date of injury if applicable: Requested Time: Referral to Cardiac Rehab [VLJ857 Custom] As directed Process Instructions: If no progress note charted, please enter Clinical details in comments. Scheduling Instructions: Questions: My question or request is: TAVR- cardiac rehab at [facility] 48 Hrs-15 Days [UVI2177 CPT(R)] As directed Process Instructions: Scheduling Instructions: Comments: Questions: Does the patient have a pacemaker? If yes provide HI/LO settings: Apply for 7 or 14 days?: 14 Where will study be performed?: [facility] Discharge References/Attachments Transcatheter Aortic Valve Implantation (DIMAS): General Info (Swedish) Transcatheter Aortic Valve Implantation (DIMAS): Pre-op (Swedish) Transcatheter Aortic Valve Implantation (DIMAS): Post-op (Swedish) Signed: RITA Lewis [facility] Section of Cardiac Surgery Date: 03/08/2023 CC: KYARA Plasencia Wassim, [place] [address] documented in this encounter Discharge Instructions * Patient Instructions* Mary Molina PA - 03/08/2023 10:55 AM EDT TAVR Discharge Instructions: Call your doctor if: You have a fever of greater than 101 degrees, shaking chills, if you develop redness or drainage from your procedure sites, or if you have questions. Please call your Liberal Arts Dean's office if you have any discharge or drainage from your procedural sites. Your Liberal Arts Dean, Dr. Mike Torres and/or the Animal Care Specialist may be reached at . Antibiotic prophylaxis: [...] Please refer to the card with the [place] [employer] Guidelines for more information. You have been provided with a copy of this card. Please refer to the [place] [employer] Guidelines for more information. Good [...] friends, go to a movie, go to anglican, etc. Heavy activities: No hunting, skiing, jogging, [...] should resume a low fat, low cholesterol, [place] Diet. Driving: No driving for 3 days. Shower/Bath: You may shower daily. No baths, soaking, or swimming for the first week. Wound care: Please remove your dressings 48 hours after your procedure. Wash the sites daily with soap and rinse well, pat dry. Assess for any signs of infection such as increased redness, pain, warmth or drainage. Please call your brick maker's office if you have any discharge or drainage from your procedural sites. If there is a lot of swelling, apply tayla wraps during the day and remove at bedtime. Elevate your legs when you are sitting. Home oxygen therapy: N/A Follow up appointments: Please schedule a follow-up appointment with your PCP, Vanita Churchill APRN, or Primary Assisted Living Assistant, in ~ 7-10 days. You have a follow-up appointment with your Liberal Arts Dean, Dr. Mike Torres, in 1 month with a chest x-ray, EKG, Echo, and labs prior to your appointment. Tvin-Wbzezy-tf interval: After initial 30 day follow-up appointment , all TAVR patients will follow-up again in one year with an echo. * Attachments The following attachments cannot be sent through Care Everywhere. * Transcatheter Aortic Valve Implantation (DIMAS): General Info (Swedish) * Transcatheter Aortic Valve Implantation (DIMAS): Pre-op (Swedish) * Transcatheter Aortic Valve Implantation (DIMAS): Post-op (Swedish) documented in this encounter Medications at Time [...] Post-Op L TF TAVR. 24h Events: To cath lab technologist for TF TAVR RBBB and LAFB pre [...] 0600 and on the weekends please page [phone]. * Suhail Padilla, KYARA - 03/08/2023 7:52 [...] Blood Gas) No results for input(s): PHART, HFF4RAQ, PO2ART, BHK6KBI, LACTATEVEN, ZTH9PIQ, PFRATIOART2 in the last 168 hours. VBG (Venous Blood Gas) No results for input(s): PHVEN, DZD3ILK, PO2VEN, VCW3ARR, LACTATEVEN in the last 168 hours. Mixed Venous Sat No results for input(s): Y8DSDM2 in the last 168 hours. Vitals Last [...] -- 96.4* 95.9* 99.2* 98.7* Recent Labs 03/08/2341203/07/23200903/07/2333403/06/2340103/05/2334903/04/23 0503/03/23 0407 NA 134* -- 132* 132* 133* [...] -normal sinus rhythm. Right bundle branch block, AL 168 ms from 198ms, JLW821 ms from 144 ms Medications Scheduled Meds: [...] Suhail Padilla APRN Structural Heart Disease Pager [phone] * Cyn Soler - 03/07/2023 5:00 PM EDT Signs Sales Representative Encounter Note Patient Name: Lindsey Deleon : [id number] MR#: [id number] Admit Date: 03/01/2023 12:42 PM Hospital Day 6 days Narrative: Initiated visit to follow up from yesterday. Kelly still in laborer construction or leak gang recovery, 3 family members waiting in her [...] Suhail Padilla APRN Structural Heart Disease Pager [phone] * Suhail Padilla, VARNISHING UNIT OPERATOR - 03/07/2023 11:38 AM EDT Images from [...] Blood Gas) No results for input(s): PHART, EGD8JVR, PO2ART, QIR6MQG, LACTATEVEN, GUM7XSF, PFRATIOART2 in the last 168 hours. VBG (Venous Blood Gas) No results for input(s): PHVEN, LZM6ZDL, PO2VEN, UZJ7FYW, LACTATEVEN in the last 168 hours. Mixed Venous Sat No results for input(s): D4WQLP1 in the last 168 hours. Vitals Last [...] Indication/Daily Review of Necessity fluid therapy intermittent 03/07/23 0826 Site Preparation/Maintenance dressing: dry and intact [...] post TAVR for primary team management Suhail Dover KYARA Padilla Structural Heart Disease Pager [phone] Associated attestation - Mike Torres MD - 03/07/2023 4:14 PM EDT Attending Addendum: The patient was seen and examined in conjunction with Mr Valerie APRN. My history, physical exam findings, assessment, and plan are reflected in that note. Lab and relevant imaging data was reviewed and the plan was communicated with the patient and available family. TAVR today. Mike Torres MD, [facility], [facility] Attending Assisted Living Assistant Pager [phone] * Brandon Crowley MD - 03/07/2023 7:05 AM EDT Images from the original note were not included. Inpatient Cardiology Progress Note Patient info: Name: Lindsey Deleon : 1950 PCP: Vanita Churchill APRN PCP phone number: [phone] Date of Admission: 03/01/2023 ( Hospital Day [...] in the last 7068 hours. Invalid input(s): OOMSOFKCOIO5Y No results for input(s): POCGLU in the last 168 hours. Heme No results for input(s): LDH, HAPTOGLOBIN, URICACID in the last 168 hours. ABG (Arterial Blood Gas) No results found for: PHART, PO2ART, BYG2FOQ, AQH5KBY Microbiology: Microbiology Results (Last 30 days) No [...] have questions please contact the health patient centered care specialist that requested your imaging first. Medications Scheduled [...] Cyn Soler - 03/06/2023 1:00 PM EDT Signs Sales Representative Encounter Note Patient Name: Lindsey Deleon : [id number] MR#: [id number] Admit Date: 03/01/2023 12:42 PM Hospital Day 5 days Narrative: Initiated visit on unit rounds. Ms. Deleon is sitting in chair beside bed with her son next to her. Shared some of her health hx and that she is headed for heart surgery tomorrow. [place] in [place] and . Close with his mother, they shared stories about their family, about jain and their lives. Ms. Deleon is grateful [...] PCP: Vanita Churchill APRN PCP phone number: [phone] Date of Admission: 03/01/2023 ( Hospital Day [...] in the last 7068 hours. Invalid input(s): DYYHRFTODDD7I No results for input(s): POCGLU in the last 168 hours. Heme No results for input(s): LDH, HAPTOGLOBIN, URICACID in the last 168 hours. ABG (Arterial Blood Gas) No results found for: PHART, PO2ART, ZLP0LLX, KRL6BSI Microbiology: Microbiology Results (Last 30 days) No [...] have questions please contact the health patient centered care specialist that requested your imaging first. Medications Scheduled [...] #Routine Diet: Daily Healthy Menu Choices/Cardiac diet ([facility]) NPO diet (Give Meds) DVT Prophylaxis: LMWH [...] PCP: Vanita Churchill APRN PCP phone number: [phone] Date of Admission: 03/01/2023 ( Hospital Day [...] in the last 7068 hours. Invalid input(s): OWUGGJZDSSL5X No results for input(s): POCGLU in the last 168 hours. Heme No results for input(s): LDH, HAPTOGLOBIN, URICACID in the last 168 hours. ABG (Arterial Blood Gas) No results found for: PHART, PO2ART, ERQ0GMY, YKH2NNN Microbiology: Microbiology Results (Last 30 days) No [...] #Routine Diet: Daily Healthy Menu Choices/Cardiac diet ([facility]) NPO diet (Give Meds) DVT Prophylaxis: LMWH [...] MALIK, FACC, FACP, FASE Cardiovascular Medicine * Maroln Hanna RN - 03/04/2023 10:14 PM EDT [...] PCP: Vanita Churchill APRN PCP phone number: [phone] Date of Admission: 03/01/2023 ( Hospital Day [...] 100.6* Recent Labs 03/04/23 0503/03/23 0407 03/02/23 0409 03/01/23 1648 NA 132* [...] in the last 7068 hours. Invalid input(s): URXDNCBPPFC6A No results for input(s): POCGLU in the last 168 hours. Heme No results for input(s): LDH, HAPTOGLOBIN, URICACID in the last 168 hours. ABG (Arterial Blood Gas) No results found for: PHART, PO2ART, LBD5AWQ, WWA0GBO Microbiology: Microbiology Results (Last 30 days) No [...] #Routine Diet: Daily Healthy Menu Choices/Cardiac diet ([facility]) NPO diet (Give Meds) DVT Prophylaxis: LMWH [...] PCP: Vanita Churchill APRN PCP phone number: [phone] Date of Admission: 03/01/2023 ( Hospital Day [...] extremities spontaneously Psych: cooperative. Labs: Recent Labs 03/03/2340603/02/2340803/01/23 1648 WBC 8.9 8.8 7.4 HGB 12.0 11.0* 11.7 HCT 37.2 34.3* 36.2 PLATELET 258 250 276 MCV 100.5* 101.5* 100.6* Recent Labs 03/03/2340603/02/23 04003/01/23 1648 NA 138 138 140 CL [...] in the last 7068 hours. Invalid input(s): TGZBZDHHPEN4W No results for input(s): POCGLU in the last 168 hours. Heme No results for input(s): LDH, HAPTOGLOBIN, URICACID in the last 168 hours. ABG (Arterial Blood Gas) No results found for: PHART, PO2ART, JVO9CRS, YBN8XMB Microbiology: Microbiology Results (Last 30 days) No [...] #Routine Diet: Daily Healthy Menu Choices/Cardiac diet ([facility]) DVT Prophylaxis: LMWH GI Prophylaxis: Pantoprazole Code [...] Blood Gas) No results for input(s): PHART, OAL9GTW, PO2ART, MMN3OFT, LACTATEVEN, OBF2CGM, PFRATIOART2 in the last 168 hours. VBG (Venous Blood Gas) No results for input(s): PHVEN, CGV2EAM, PO2VEN, FMM5KOI, LACTATEVEN in the last 168 hours. Mixed Venous Sat No results for input(s): A2DFNC8 in the last 168 hours. Vitals Last [...] Review of Necessity medication therapy intermittent 03/02/23 0900 Site Preparation/Maintenance dressing: dry and intact 03/01/23 1600 Securement catheter stabilization device, secured with 03/02/23 0900 Patency/Maintenance flushed without difficulty 03/02/23 0900 Phlebitis [...] in the last 7068 hours. Invalid input(s): GFDNFAXQRIQ7F No results for input(s): POCGLU in the last 168 hours. No results for input(s): LDH, HAPTOGLOBIN, URICACID in the last 168 hours. ABG (Arterial Blood Gas) No results for input(s): PHART, QVK5OGY, PO2ART, GEN7ULQ, LACTATEVEN, XDP3IEI, PFRATIOART2 in the last 168 hours. VBG (Venous Blood Gas) No results for input(s): PHVEN, SRX8NHI, PO2VEN, PEZ6IWN, LACTATEVEN in the last 168 hours. Mixed Venous Sat No results for input(s): W4XNEE1 in the last 168 hours. Diagnostics: Echocardiogram [...] recommendations. Edwige Nieves APRN Structural Heart Pager [phone] 03/02/2023 * Chong Campbell MD - 03/02/2023 6:50 AM EDT Images from the original note were not included. Inpatient Cardiology Progress Note Patient info: Name: Lindsey Deleon : 1950 PCP: Vanita Churchill APRN PCP phone number: [phone] Date of Admission: 03/01/2023 ( Hospital Day [...] in the last 7068 hours. Invalid input(s): NASHDIGIEGX7C No results for input(s): POCGLU in the last 168 hours. Heme No results for input(s): LDH, HAPTOGLOBIN, URICACID in the last 168 hours. ABG (Arterial Blood Gas) No results found for: PHART, PO2ART, LMK7YNV, UPQ9LBA Microbiology: Microbiology Results (Last 30 days) No [...] #Routine Diet: Daily Healthy Menu Choices/Cardiac diet ([facility]) DVT Prophylaxis: LMWH GI Prophylaxis: Pantoprazole Code [...] PCP: Vanita Churchill APRN PCP phone number: [phone] Date of Admission: 03/01/2023 ( Hospital Day 0 days ) Attending:Cohng Campbell MD ID: Lindsey Deleon is a [...] Date ??? CHOLECYSTECTOMY ? ? [facility]G [facility] CORONARY ART W/INJ FOR ANGIO W/R HEART CATH IMG S&I N/A 01/31/2023 CORONARY ANGIOGRAPHY; W RHC (WRVU 5.9) performed by Mike Torres MD at [facility] CATH LABS ??? PRG X-RAY AORTA LEG ARTERIES N/A 08/15/2017 AORTOGRAPHY, ABD. + AYAAN. ILIOFEMORAL LE BY SERIALOGRAPHY S & I (WRVU 1.79) performed by Jake Montaño MD at [facility] MAIN OR ??? PRO COLONOSCOPY, DIAGNOSTIC 12/06/2012 COLONOSCOPY, DIAGNOSTIC performed by Mik Dumont MD at [facility] ENDOSCOPY ??? PRO LAPAROSCOPY REPAIR PARAESOPHAGEAL HERNIA INCL FUNDOPLASTY W/O MESH 02/18/2013 LAPAROSCOPIC PARAESOPHAGEAL HERNIA REPAIR W/FUNDOPLASTY, W/O MESH performed by Moncho Bowers MD at [facility] MAIN OR ??? PRO PLACE CATH FIRST ORDER ART, ABD/PELV 08/15/2017 CATHETER PLACEMENT, SELECTIVE FIRST ORDER IN ARTERIAL SYSTEM, EACH FIRST ORDER ABDOMINAL, PELVIC, OR LOWER EXTREMITY ARTERY BRANCH,WITHIN A VASCULAR FAMILY (WRVU 4.9) performed by Jake Montaño MD at [facility] MAIN OR ? ? PRO REVSC OPEN/PERCUTANEOUS ILIAC ART W STNT PLMT&ANGIO PATRICE VSL UNILAT Bilateral 08/15/2017 REVSC OPN\PRQ ILIAC ART W\STNT PLMT & ANGIOP SAME VSL (WRVU 10) performed by Jake Montaño MD at [facility] MAIN OR ??? PRO THROMBOENDARTECTMY ILIOFEMORAL Left 08/15/2017 @ENDARTERECTOMY, ILIOFEMORAL W OR W/O PATCH GRAFT (WRVU 19.86) performed by Jake Montaño MD at [facility] MAIN OR ??? PRO THROMBOENDARTECTMY NECK, NECK INCIS Right 06/10/2019 @ENDARTERECTOMY, CAROTID, VERTEBRAL,SUBCLAVIAN W\WO PATCH GRAFT (WRVU 21.16) performed by Jake Montaño MD at [facility] MAIN OR ??? PRO UPPER GI ENDOSCOPY, BIOPSY 12/06/2012 EGD WITH BIOPSY performed by Mik Dumont MD at [facility] ENDOSCOPY ??? TUBAL LIGATION Family History [...] in the last 7068 hours. Invalid input(s): UVQFOTSORJX8X No results for input(s): POCGLU in the last 168 hours. Heme No results for input(s): LDH, HAPTOGLOBIN, URICACID in the last 168 hours. ABG (Arterial Blood Gas) No results found for: PHART, PO2ART, VXD8EGN, YJB4PZC Microbiology: Microbiology Results (Last 30 days) No [...] #Routine Diet: Daily Healthy Menu Choices/Cardiac diet ([facility]) DVT Prophylaxis: Lovenox GI Prophylaxis: Pantoprazole Code [...] Vargas MD - 03/08/2023 1:22 PM EDT [facility] Operative Note Patient Name: Lindsey Deleon : [id number] MR#: [id number] Case Date: 03/07/2023 Surgeon: Surgeon(s) and Role: * Mike Torres MD - Attending Co-Surgeon * Rahat Vargas MD - Attending Co-Surgeon * Alexander Gamez MD - Fellow * Anita Smith PA - Physician Crm Technical Lead ? Preoperative diagnosis: aortic stenosis, severe/TAVR ?? [...] Output: (no urine output recorded) ? Disposition: cath lab technologist recovery ?? Procedure Description: The patient was brought to the Contact Person and placed upon the Contact Person table in the supine position. Following administration of the sedation anesthetic the patient was prepped and draped using sterileprep. Left femoral and R radial arterial access was obtained utilizing Seldinger techniques. Angiography demonstrated positioning of the catheters above the femoral arterial bifurcation. Using similar techniques a 6 Chadian sheath was placed into the right common [...] valve was then crossed with a 6 Chadian AL-1 catheter and straight wire which was [...] directed aroundthe thoracic aortic arch into the [place] calcified annulus under fluoroscopy. Root angiography under [...] procedure well and was taken to the Contact Person recovery room in hemodynamically stable condition. Attestation: Case Date: 03/07/2023 I was present and I participated during the entire procedure (does not need to include opening and closing). RAHAT VARGAS MD 03/15/2023 * Brief Op Note - Rahat Vargas MD - 03/08/2023 1:22 PM EDT Brief Operative Note Patient Name: Lindsey D Deleon : [id number] MR#: [id number] Case Date: 03/07/2023 Surgeon: Surgeon(s) and Role: Panel 1: * Mike Torres MD - Attending Co-Surgeon * Rahat Vargas MD - Attending Co-Surgeon * Alexander Gamez MD - Fellow * Anita Smith PA - Physician Crm Technical Lead Preoperative diagnosis: aortic stenosis, severe/TAVR Postoperative diagnosis: [...] Urine Output: (no urine output recorded) Disposition: cath lab technologist recovery Condition: doing well without problems Attestation: Case Date: 03/07/2023 I was present and I participated during the entire procedure (does not need to include opening and closing). RAHAT VARGAS MD 03/15/2023 * Plan of Care - Addison Farias, RN - 03/08/2023 12:20 PM EDT Patient discharged to [facility], vitals as charted. No complaints of dizziness, [...] information for follow-up [facility], [place] [address] [place] [address] Transportation: family or friend will provide - granddaughter per patient Functional status prior to admission: Independent Home Environment: Others in the home: child(matthew), adult. Current Living Arrangements: home/apartment/condo. Accessibility Concerns:2 level home including basement, stays on main level, 2 MAE. Current Functional Ability: Independent, Assistive Equipment DME used at home: lift device, oxygen, grab bar - tub/shower, grab bar - toilet, respiratory supplies, tub bench, walker - standard DME Needed at Discharge: has at home Patient is insured through: Primary Insurance: JOSÉ MIGUEL SUAREZ Payor: JOSÉ [...] Procedure Note: Patient Name: Lindsey Deleon : [id number] MR#: [id number] Case Date: 03/07/2023 Extractor And Wringer Operator: Surgeon(s) and Role: Panel 1: * Mike Torres MD - Primary * Alexander Gamez MD - Fellow * Anita Smith PA - Physician Crm Technical Lead Panel 2: * Rahat Vargas MD - [...] including basement, stays on main level, 2 MAE. Current Functional Ability: Independent, Assistive Equipment DME used at home: lift device, oxygen, grab bar - tub/shower, grab bar - toilet, respiratory supplies, tub bench, walker - standard DME Needed at Discharge: No Patient is insured through: Primary Insurance: The 517 travel Payor: The 517 travel / Plan: The 517 travel / Product Type: *No Product type* / Secondary Insurance: N/A Last Physical Therapy Recommendation: with Last Occupational Therapy Recommendation: with Plan for discharge is: Home w/ Services Outpatient Agency/Support Group Needs: Homecare agency Home Health Services: Home Health Aide, Occupational Therapy, Physical Therapy, Registered Nurse, Wound care Agency Referrals: Not Applicable - [facility] following patient. Transportation: family or friend will [...] including basement, stays on main level, 2 MAE. Resource / Environmental Concerns: Resource/Environmental Concerns: none Current DME: lift device, oxygen, grab bar - tub/shower, grab bar - toilet, respiratory supplies, tub bench, walker - standard Home Address confirmed as: [address] [place] [id number] Social & Family Supports: All names listed below confirmed with patient as current and correct Extended Emergency Contact Information Primary Emergency Contact: Sammi Karimi Address: [address] [place] [address] [facility] Mobile Relation: Child Secondary Emergency Contact: Bam Trevizo, PERRY [facility] Mobile Relation: Child Current Care Provided [...] Yes ; Prescription Coverage: Yes Preferred Pharmacy: [facility] [address] [facility] [address] [facility] - [address] [place] [address] [facility] [id number] - [place], [place] - [address] [place] [id number] Status: Patient is a : No Primary Care Provider confirmed: Vanita Churchill, VARNISHING UNIT OPERATOR [phone] Patient/Caregiver Goals of Treatment: Have procedure and return home Potential Needs for Transition of Care: home health care Agency Referrals: patient requests referral to: [facility] [place] [address] PHONE: [phone] FAX: [phone] Transportation: no concerns Transportation Anticipated: family or friend will provide Concerns to be Addressed: discharge planning, adjustment to diagnosis/illness, healthcare market consultant support, home safety Assessment: Patient is admitted [...] RN CM(remote) Mega Arciniega RN CM Pager [phone] documented in this encounter Plan of Treatment Upcoming Encounters Date Type Department Care Team (Late st Contact Info) Description 02/06/2025 2:40 PM EDT Office Visit Cardiology at [address] [phone] Rigoberto Diaz MD [facility] [place] [address] Scheduled Orders Name Type Priority Associated Diagnoses [...] Heart Cath W/Inj L Ventriculography, Img S&I ([id number]) 03/07/2023 1:57 PM EDT aortic stenosis, severe/TAVR [...] EDT) Glucose 111 65 - 199 mg/dL [facility] Comment:Diabetes: >=200 mg/d L plus symptoms Blood Urea Nitrogen 21(H) 8 - 18 mg/dL [facility] Creatinine 1.18 0.70 - 1.20 mg/dL [facility] Sodium 139 135 - 145 mmol/L [facility] Potassium 4.3 3.5 - 5.0 mmol/L [facility] Comment: Please note: ??Patients with WBC >100,000 may have falsely elevated Potassium levels. ??For accurate Potassium quantification in these patients send serum separator tube (gold top) for subsequent determinations. ??Contact the Clinical Chemistry Laboratory if there are any questions. Chloride 102 98 - 107 mmol/L [facility] Carbon Dioxide 26 22 - 31 mmol/L [facility] Anion Gap 11 5 - 15 mmol/L [facility] Calcium 9.4 8.5 - 10.5 mg/dL [facility] Protein, Total 7.3 6.1 - 8.0 g/dL [facility] Albumin 4.3 3.2 - 5.2 g/dL [facility] Aspartate Aminotransferase 17 0 - 30 unit/L [facility] Alanine Aminotransferase 13 0 - 30 unit/L [facility] Alkaline Phosphatase 73 35 - 105 unit/L [facility] Bilirubin, Total 0.3 0.2 - 1.3 mg/dL [facility] Est Glomerular Filtration Rate 48(L) >=60 mL/min/1. 73 m?? [facility] Comment: This patient's estimated GFR was [...] MD CHEMISTRY ORDERABLE S Performing Organization Address [facility] Co de Phone Number [facility] [place] [address] * EKG 12 Lead (03/08/2023 11:05 AM EDT) Ventricular rate 67 BPM MUSE SYSTEM Atrial Rate 67 BPM MUSE SYSTEM P-R Interval 158 ms MUSE SYSTEM QRS Duration 132 ms MUSE SYSTEM Q-T Interval 442 ms MUSE SYSTEM QTC Calculated (Bezet) 467 ms MUSE SYSTEM Calculated P Coleman 63 degrees MUSE SYSTEM Calculated R Coleman -37 degrees MUSE SYSTEM Calculated T Coleman 13 degrees MUSE SYSTEM INTERPRETATION Normal sinus rhythm Left axis deviation Right bundle branch block Abnormal ECG When compared with ECG of 08-MAR-2023 05:34, No significant change was found Confirmed by MD Valenzuela Danette ([id number]) on 03/08/2023 3:20:36 PM MUSE SYSTEM 03/08/2023 11:0 5 AM EDT 03/08/2023 3:20 PM EDT Rahat Vargas MD ECG ORDERABLES Performing Organization Address [facility] de Phone Number MUSE SYSTEM * Ziopatch 48 Hrs-15 Days (03/08/2023 10:01 AM EDT) Anatomical Region Laterality Modality Other Narrative 03/28/2023 3:43 PM EDT Images from the original result were not included. [facility] ? [facility] Cardiac Event [...] tab. ??For patients accessing the study from [facility] (My Chart), click on the link or links found in the IMAGES area below the text of the report. ? Randy Chatman MD, FA, [facility] Suhail Padilla APRN CARDIAC SERVICES OR DERABLES * EKG 12 Lead (03/08/2023 5:34 AM EDT) Ventricular rate 98 BPM MUSE SYSTEM Atrial Rate 98 BPM MUSE SYSTEM P-R Interval 168 ms MUSE SYSTEM QRS Duration 128 ms MUSE SYSTEM Q-T Interval 384 ms MUSE SYSTEM QTC Calculated (Bezet) 490 ms MUSE SYSTEM Calculated P Coleman 59 degrees MUSE SYSTEM Calculated R Coleman -39 degrees MUSE SYSTEM Calculated T Coleman 8 degrees MUSE SYSTEM INTERPRETATION Normal sinus rhythm Left axis deviation Right bundle branch block Abnormal ECG When compared with ECG of 07-MAR-2023 15:44, (unconfirmed) Left posterior fascicular block is no longer Present I personally reviewed the tracing and edited the fellows interpretation Confirmed by fellow MD Yina, Galo ([id number]) on 03/08/2023 5:20:12 PM Confirmed by MD DAVID, MARTIR ([id number]) on 03/08/2023 9:28:11 PM MUSE SYSTEM 03/08/2023 5:34 AM EDT 03/08/2023 9:28 PM EDT Rahat Vargas MD ECG ORDERABLES MUSE SYSTEM * (ABNORMAL) Differential, Automated (03/08/2023 4:13 AM EDT) Neutrophil % 73.3 % [facility] Neutrophil Absolute 8.45(H) 1.70 - 6.10 x10(3)/mc L [facility] Lymph % 14.9 % [facility] Lymphocytes Abs 1.7 0.9 - 3.2 x10(3)/mc L [facility] Monocyte % 10.9 % [facility] Monocyte Abs 1.3(H) 0.3 - 0.9 x10(3)/mc L [facility] Eos % 0.1 % [facility] Eosinophils Abs 0.0 0.0 - 0.4 x10(3)/mc L [facility] Basophil % 0.3 % [facility] Baso Absolute 0.0 0.0 - 0.1 x10(3)/mc L [facility] Immature Gran % 0.50 % [facility] Comment: Immature granulocytes(IG's)percentage and absolute count will include metamyelocytes, myelocytes, and promyelocytes. Blood smears from CBCs yielding IG's will be scanned manually for concordance. If this scan disagrees with the automated IG or if promyelocytes are noted, a manual differential will be performed. Immature Gran Absolute 0.06(H) 0.00 - 0.04 x10(3)/mc L [facility] Blood 03/08/2023 4:13 AM EDT 03/08/2023 4:29 AM EDT Narrative Resulting Agency Comment Spec In Lab Bam SALINAS HEMATOLOGY ORDERABLE S [facility] [place] [address] * (ABNORMAL) Hemogram (03/08/2023 4:13 AM EDT) White Blood Cell 11.5(H) 4.0 - 9.5 x10(3)/mc L [facility] Red Blood Cell 3.43(L) 4.00 - 5.21 x10(6)/mc L [facility] Hemoglobin 11.1(L) 11.7 - 15.5 g/dL [facility] Hematocrit 32.9(L) 35.7 - 45.8 % [facility] Mean Cell Volume 95.9(H) 82.6 - 94.4 fL [facility] Mean Cell Hemoglobin 32.4(H) 27.1 - 32.0 pg [facility] Mean Cell Hemoglobin Concentration 33.7 31.7 - 35.0 g/dL [facility] Platelet 216 145 - 357 x10(3)/mc L [facility] RDW Standard Deviation 43.8 37.0 - 46.0 fL [facility] RDW coefficient of variation 12.3 11.5 - 14.1 % [facility] Mean Platelet Volume 9.6 7.6 - 12.9 fL [facility] NRBC% auto 0.0 % [facility] NRBC Absolute 0.000 0.000 - 0.000 x10(3)/mc L [facility] Blood 03/08/2023 4:13 AM EDT 03/08/2023 4:29 AM EDT Narrative Resulting Agency Comment Spec In Lab Bam SALINAS HEMATOLOGY ORDERABLE S Performing Organization Address [facility]/ZIP Co de Phone Number [facility] [place] [address] * (ABNORMAL) Basic Metabolic Panel (non-fasting) (03/08/2023 4:13 AM EDT) Glucose 116 65 - 199 mg/dL [facility] Comment:Diabetes: >=200 mg/d L plus symptoms Blood Urea Nitrogen 21(H) 8 - 18 mg/dL [facility] Creatinine 0.89 0.70 - 1.20 mg/dL [facility] Sodium 134(L) 135 - 145 mmol/L [facility] Potassium 3.8 3.5 - 5.0 mmol/L [facility] Comment: Please note: ??Patients with WBC >100,000 may have falsely elevated Potassium levels. ??For accurate Potassium quantification in these patients send serum separator tube (gold top) for subsequent determinations. ??Contact the Clinical Chemistry Laboratory if there are any questions. Chloride 99 98 - 107 mmol/L [facility] Carbon Dioxide 23 22 - 31 mmol/L [facility] Anion Gap 12 5 - 15 mmol/L [facility] Calcium 9.2 8.5 - 10.5 mg/dL [facility] Est Glomerular Filtration Rate 68 >=60 mL/min/1. 73 m?? [facility] Comment: This patient's estimated GFR was [...] Lab Rahat Vargas MD CHEMISTRY ORDERABLE S [facility] [place] [address] * (ABNORMAL) Hemoglobin (03/07/2023 8:10 PM EDT) Hemoglobin 11.1(L) 11.7 - 15.5 g/dL [facility] Blood 03/07/2023 8:10 PM EDT 03/07/2023 8:21 PM EDT Narrative Resulting Agency Comment Spec In Lab Rahat Vargas MD HEMATOLOGY ORDERABL ES Performing Organization Address [facility] Co de Phone Number [facility] [place] [address] * Potassium (03/07/2023 8:10 PM EDT) Potassium 4.1 3.5 - 5.0 mmol/L [facility] Comment: Please note: ??Patients [...] MD CHEMISTRY ORDERABLE S Performing Organization Address [facility] Co de Phone Number [facility] [place] [address] * ECHO LMTD W/O CONTRAST W LMTD SPEC DOPP COLOR DOPP (03/07/2023 3:48 PM EDT) EF 75 [facility]ART[facility] SYSTEM Anatomical Region Laterality Modality Cardiac Other 03/07/2023 2:28 PM EDT Narrative 03/07/2023 4:27 PM EDT ? Echocardiogram Report Name: DELEON, LINDSEY D ? Study Date: 03/07/2023 02:28 PM ? Patient Location: : 1950 ? Height: 160 cm ? Account: [id number] Age: 72 yrs ? Weight: 79 kg Gender: Female ?BSA: 1.8 m2 Ordering Physician: BRANDON CROWLEY Referring Physician: ALEXANDER GAMEZ Performed By: Hugh Solomon RDCS Reason For Study: Guidance for TAVR procedure Interpreting Fellow: Rigoberto Humphreys. Exam Location: [facility]. Interpretation Summary PRE-TAVR: There [...] is no pericardial effusion. Procedure Limited - 15781. Color Doppler - 55513. limited spectral 68793. Suboptimal quality. This study is limited because [...] Location: : 1950 Height: 160 cm Account: [id number] Age: 72 yrs Weight: 79 kg Gender: Female BSA: 1.8 m2 Ordering Physician: BRANDON CROWLEY Referring Physician: ALEXANDER GAMEZ Performed By: Hugh Solomon RDCS Reason For Study: Guidance for TAVR procedure Interpreting Fellow: Rigoberto Humphreys. Exam Location: [facility]. Interpretation Summary PRE-TAVR: There [...] There is nopericardial effusion. Procedure Limited - 67780. Color Doppler - 14123. limited spectral 29636.Suboptimal quality. This study is limited because of [...] (Bezet) 499 ms MUSE SYSTEM Calculated P Coleman 75 degrees MUSE SYSTEM Calculated R Coleman 115 degrees MUSE SYSTEM Calculated T Coleman -3 degrees MUSE SYSTEM INTERPRETATION Suspect limb [...] Modality Other Narrative 03/09/2023 11:57 AM EDT ?[facility] ? Cardiac Catheterization/Intervention Report ? Patient Name: Deleon, Lindsey D. ? Procedure Date: 03/07/2023 ? A #: [id number] ? Primary Physician: Brian, Mike T ? Case #: [id number] ? File Name: [id number] ? Catheterization Order Number: [id number] ? [facility] ? Final Report [place], [place] ? Patient Name: ? Lindsey D. Deleon ?ID#: ?[id number] ? : ?1950 ? Procedure Date: ? March 07, 2023 ? Case #: ? [id number] ? Room: ? 6 ? Case Physician: ? Mike Torres M.D. ?Start: ?14:38 ?Fellow: ? Wassim Kellie Gamez. ?Admission: ??03/01/2023 ? Referring Physician: ??Wassipayam Gamez M.D. ? Procedures: ?* Aortic Root Aortogram ?* Transcatheter Aortic Valve Replacement ?* Vascular Closure Device Deployment ?* Temporary Pacemaker Insertion In Contact Person ?* Arterial Line / Sheath Insert ?* Cardiac Fluoro ?* Access Site Angiography ?* Arterial Blood Gases ?* Anesthesia ?* Transthoracic Echo During Cath ? History ?Lindsey Deleon is a 72 [...] was designated as ASA Class III. The [facility] clinical ?frailty scale is 4: Vulnerable. ? [...] Lenard 3 Ultra RESILIA 23 mm THV (s/l=[id number]) transcatheter ?valve was inserted using standard technique. [...] to nor was it given in the ?laborer construction or leak gang. ?Recommended anti-platelet/anti-thrombotic regimen: ?Start aspirin 81 mg daily now and continue for indefinitely. ?These recommendations are made at the time of the intervention. Patient ?and provider preferences or a changing clinical situation may require ?modification of this regimen. Consult [facility] Interventional Cardiology for ?questions. ? Conclusions: ?* [...] the access site angiography, temporary ?pacemaker in laborer construction or leak gang, arterial line / sheath insert, cardiac fluoro, ?vascular closure device, ABG, transthoracic echo , TAVR, aortic root ?aortogram and anesthesia. ? Mike Torres M.D. ? Electronically Signed by: Mike Torres M.D. ? Report Finalized: 03/09/2023 ??11:52 ? Mike Torres MD CARDIAC CATH ORDERAB LES * (ABNORMAL) Point of Care Blood Gas Historical (03/07/2023 2:20 PM EDT) pH, POC 7.43 7.35 - 7.45 [facility] pCO2, POC 37 35 - 45 mmHg [facility] pO2, POC 130(H) 85 - 104 mmHg [facility] Base Excess, POC 0.0 -3.0 - 3.0 mmol/L [facility] Bicarbonate, POC 24.6 20.0 - 26.0 mmol/L [facility] Sodium, POC 138 135 - 145 mmol/L [facility] POC Potassium 4.3 3.5 - 5.0 mmol/L [facility] Ionized Calcium, POC 1.25 1.15 - 1.33 mmol/L [facility] POC Hematocrit 36.0 34.0 - 45.0 % [facility] POC Calc Hgb 12.2 11.2 - 15.7 g/dL [facility] Comment:The calculation of h emoglobin from hematocrit assumes a normal MCHC. POC Bgas Loc [facility] Blood 03/07/2023 2:20 PM EDT 03/09/2023 12:00 PM EDT Rahat Vargas MD CHEMISTRY ORDERABLE S [facility] [place] [address] * Type and Screen Validity (03/07/2023 3:35 AM EDT) T&S only valid at [facility] Comment:This Type and Screen result is only valid at the [facility] Blood 03/07/2023 3:35 AM EDT 03/07/2023 3:42 AM EDT Narrative Resulting Agency Comment Spec In Lab Edwige Pérez Lizbeth [facility] LAB ORDER TANA Performing Organization Address City/[facility]/ZIP Co de Phone Number [facility] [place] [address] * ABORH Recheck Status (03/07/2023 3:35 AM EDT) ABORH Type Recheck Completed [facility] Blood 03/07/2023 3:35 AM EDT 03/07/2023 3:42 AM EDT Narrative Resulting Agency Comment Spec In Lab Edwige Maddoxgloria [facility] ORDER TANA Performing Organization Address City/[facility]/ZIP Co de Phone Number [facility] [place] [address] * (ABNORMAL) Differential, Automated (03/07/2023 3:35 AM EDT) Neutrophil % 56.8 % [facility] Neutrophil Absolute 3.80 1.70 - 6.10 x10(3)/mc L [facility] Lymph % 28.0 % [facility] Lymphocytes Abs 1.9 0.9 - 3.2 x10(3)/mc L [facility] Monocyte % 14.0 % [facility] Monocyte Abs 0.9 0.3 - 0.9 x10(3)/ L [facility] Eos % 0.1 % [facility] Eosinophils Abs 0.0 0.0 - 0.4 x10(3)/ L [facility] Basophil % 0.4 % [facility] Baso Absolute 0.0 0.0 - 0.1 x10(3)/mc L [facility] Immature Gran % 0.70 % [facility] Comment: Immature granulocytes(IG's)percentage and absolute count will include metamyelocytes, myelocytes, and promyelocytes. Blood smears from CBCs yielding IG's will be scanned manually for concordance. If this scan disagrees with the automated IG or if promyelocytes are noted, a manual differential will be performed. Immature Gran Absolute 0.05(H) 0.00 - 0.04 x10(3)/ L [facility] Blood 03/07/2023 3:35 AM EDT 03/07/2023 3:56 AM EDT Narrative Resulting Agency Comment Spec In Lab Mega Gant MD HEMATOLOGY ORDERABLE S Performing Organization Address City/State/[facility] Co de Phone Number [facility] [place] [address] * (ABNORMAL) Hemogram (03/07/2023 3:35 AM EDT) White Blood Cell 6.7 4.0 - 9.5 x10(3)/mc L [facility] Red Blood Cell 3.64(L) 4.00 - 5.21 x10(6)/mc L [facility] Hemoglobin 11.8 11.7 - 15.5 g/dL [facility] Hematocrit 35.1(L) 35.7 - 45.8 % [facility] Mean Cell Volume 96.4(H) 82.6 - 94.4 fL [facility] Mean Cell Hemoglobin 32.4(H) 27.1 - 32.0 pg [facility] Mean Cell Hemoglobin Concentration 33.6 31.7 - 35.0 g/dL [facility] Platelet 241 145 - 357 x10(3)/mc L [facility] RDW Standard Deviation 43.4 37.0 - 46.0 fL [facility] RDW coefficient of variation 12.2 11.5 - 14.1 % [facility] Mean Platelet Volume 9.7 7.6 - 12.9 fL [facility] NRBC% auto 0.0 % [facility] NRBC Absolute 0.000 0.000 - 0.000 x10(3)/mc L [facility] Blood 03/07/2023 3:35 AM EDT 03/07/2023 3:56 AM EDT Narrative Resulting Agency Comment Spec In Lab Mega Gant MD HEMATOLOGY ORDERABLE S [facility] [place] [address] * Antibody screen (03/07/2023 3:35 AM EDT) Ab Screen Interp Negative [facility] Expires at [id number] on: 03/10/2023 [facility] Blood 03/07/2023 3:35 AM EDT 03/07/2023 3:42 AM EDT Narrative Resulting Agency Comment Spec In Lab Edwige Nieves APRN BLOOD BANK LAB ORDER TANA [facility] [place] [address] * ABO/Rh Typing (03/07/2023 3:35 AM EDT) ABORH Type O Pos [facility] Blood 03/07/2023 3:35 AM EDT 03/07/2023 3:42 AM EDT Narrative Resulting Agency Comment Spec In Lab Edwige Nieves APRN BLOOD BANK LAB ORDER TANA [facility] [place] [address] * Magnesium (03/07/2023 3:35 AM EDT) Magnesium 0.98 0.69 - 1.07 mmol/L [facility] Blood 03/07/2023 3:35 AM EDT 03/07/2023 3:55 AM EDT Narrative Resulting Agency Comment Spec In Lab Chong Campbell MD CHEMISTRY ORDERABLE S Performing Organization Address City/[facility] Co de Phone Number [facility] [place] [address] * Phosphorus (03/07/2023 3:35 AM EDT) Phosphorus 3.8 2.5 - 4.5 mg/dL [facility] Blood 03/07/2023 3:35 AM EDT 03/07/2023 3:55 AM EDT Narrative Resulting Agency Comment Spec In Lab Chong Campbell MD CHEMISTRY ORDERABLE S Performing Organization Address [facility] de Phone Number [facility] [place] [address] * (ABNORMAL) Basic Metabolic Panel (non-fasting) (03/07/2023 3:35 AM EDT) Glucose 97 65 - 199 mg/dL [facility] Comment:Diabetes: >=200 mg/d L plus symptoms Blood Urea Nitrogen 25(H) 8 - 18 mg/dL [facility] Creatinine 1.05 0.70 - 1.20 mg/dL [facility] Sodium 132(L) 135 - 145 mmol/L [facility] Potassium 3.6 3.5 - 5.0 mmol/L [facility] Comment: Please note: ??Patients with WBC >100,000 may have falsely elevated Potassium levels. ??For accurate Potassium quantification in these patients send serum separator tube (gold top) for subsequent determinations. ??Contact the Clinical Chemistry Laboratory if there are any questions. Chloride 99 98 - 107 mmol/L [facility] Carbon Dioxide 23 22 - 31 mmol/L [facility] Anion Gap 10 5 - 15 mmol/L [facility] Calcium 9.1 8.5 - 10.5 mg/dL [facility] Est Glomerular Filtration Rate 56(L) >=60 mL/min/1. 73 m?? [facility] Comment: This patient's estimated GFR was [...] MD CHEMISTRY ORDERABLE S Performing Organization Address City/[facility]/ZIP Co de Phone Number [facility] [place] [address] * Blood culture (03/06/2023 11:16 AM EDT) Blood Culture No growth at 5 days. [facility] Blood STRUCTURE OF RIGHT HAND / Unknown 03/06/2023 11:16 AM EDT 03/06/2023 12:45 PM EDT Comment:#2 Narrative Resulting Agency Comment Spec In Lab Brandon Crowley MD MICROBIOLOGY - BLOOD ORDERABLES [facility] [place] [address] * Blood culture (03/06/2023 11:09 AM EDT) Blood Culture No growth at 5 days. [facility] Blood ANTECUBITAL REGION STRUCTURE / Unknown 03/06/2023 11:09 AM EDT 03/06/2023 12:45 PM EDT Comment:#1 Narrative Resulting Agency Comment Spec In Lab Brandon Crowley MD MICROBIOLOGY - BLOOD ORDERABLES [facility] [place] [address] * XR Chest One View (03/06/2023 8:45 [...] have questions please contact the health patient centered care specialist that requested your imaging first. ? Narrative [...] who have questions please contactthe health patient centered care specialist that requested your imaging first. Brandon Crowley MD IMG DX ORDERABLES * Urinalysis with reflex Culture (03/06/2023 8:28 AM EDT) Glucose, Urine Dipstick Negative Negative mg/dL [facility] Protein, Urine Dipstick Negative Negative mg/dL [facility] Bilirubin, Urine Dipstick Negative Negative mg/dL [facility] Comment: Clinical correlation required for positive Urine Bilirubin results as false positive may occur with some drugs and drug related products. If a false positive is suspected a serum total bilirubin should be considered if clinically indicated. Urobilinogen, Urine Dipstick Normal Normal mg/dL [facility] pH, Urn (dipstick) 6.0 5.0 - 8.0 [facility] Blood, Urine Dipstick Negative Negative mg/dL [facility] Ketone, Urine Dipstick Negative Negative mg/dL [facility] Nitrite, Urine Dipstick Negative Negative [facility] Leukocytes, Urine Dipstick Negative Negative mcL [facility] Appearance, Urine Dipstick Clear Clear [facility] Specific [place] Urine Automated 1.008 1.005 - 1.030 [facility] Color, Urine Dipstick Yellow Yellow [facility] Reflex to Culture No [facility] Urine 03/06/2023 8:28 AM EDT 03/06/2023 10:27 AM EDT Narrative Resulting Agency Comment Spec In Lab Brandon Crowley [place] [address] * (ABNORMAL) Differential, Automated (03/06/2023 4:02 AM EDT) Neutrophil % 57.3 % [facility] Neutrophil Absolute 3.65 1.70 - 6.10 x10(3)/mc L [facility] Lymph % 28.1 % [facility] Lymphocytes Abs 1.8 0.9 - 3.2 x10(3)/mc L [facility] Monocyte % 13.0 % [facility] Monocyte Abs 0.8 0.3 - 0.9 x10(3)/ L [facility] Eos % 0.2 % [facility] Eosinophils Abs 0.0 0.0 - 0.4 x10(3)/mc L [facility] Basophil % 0.3 % [facility] Baso Absolute 0.0 0.0 - 0.1 x10(3)/mc L [facility] Immature Gran % 1.10 % [facility] Comment: Immature granulocytes(IG's)percentage and absolute count will include metamyelocytes, myelocytes, and promyelocytes. Blood smears from CBCs yielding IG's will be scanned manually for concordance. If this scan disagrees with the automated IG or if promyelocytes are noted, a manual differential will be performed. Immature Gran Absolute 0.07(H) 0.00 - 0.04 x10(3)/mc L [facility] Blood 03/06/2023 4:02 AM EDT 03/06/2023 4:43 AM EDT Narrative Resulting Agency Comment Spec In Lab Mega Gant MD [place] [address] * (ABNORMAL) Hemogram (03/06/2023 4:02 AM EDT) White Blood Cell 6.4 4.0 - 9.5 x10(3)/mc L [facility] Red Blood Cell 3.70(L) 4.00 - 5.21 x10(6)/mc L [facility] Hemoglobin 12.1 11.7 - 15.5 g/dL [facility] Hematocrit 35.5(L) 35.7 - 45.8 % [facility] Mean Cell Volume 95.9(H) 82.6 - 94.4 fL [facility] Mean Cell Hemoglobin 32.7(H) 27.1 - 32.0 pg [facility] Mean Cell Hemoglobin Concentration 34.1 31.7 - 35.0 g/dL [facility] Platelet 258 145 - 357 x10(3)/mc L [facility] RDW Standard Deviation 43.3 37.0 - 46.0 fL [facility] RDW coefficient of variation 12.2 11.5 - 14.1 % [facility] Mean Platelet Volume 9.7 7.6 - 12.9 fL [facility] NRBC% auto 0.0 % [facility] NRBC Absolute 0.000 0.000 - 0.000 x10(3)/ L [facility] Blood 03/06/2023 4:02 AM EDT 03/06/2023 4:43 AM EDT Narrative Resulting Agency Comment Spec In Lab Mega Gant MD HEMATOLOGY ORDERABLE S [facility] [place] [address] * Magnesium (03/06/2023 4:02 AM EDT) Magnesium 0.94 0.69 - 1.07 mmol/L [facility] Blood 03/06/2023 4:02 AM EDT 03/06/2023 4:43 AM EDT Narrative Resulting Agency Comment Spec In Lab Chong Campbell MD CHEMISTRY ORDERABLE S [facility] [place] [address] * (ABNORMAL) Phosphorus (03/06/2023 4:02 AM EDT) Phosphorus 4.8(H) 2.5 - 4.5 mg/dL [facility] Blood 03/06/2023 4:02 AM EDT 03/06/2023 4:43 AM EDT Narrative Resulting Agency Comment Spec In Lab Chong Campbell MD CHEMISTRY ORDERABLE S [facility] [place] [address] * (ABNORMAL) Basic Metabolic Panel (non-fasting) (03/06/2023 4:02 AM EDT) Glucose 98 65 - 199 mg/dL [facility] Comment:Diabetes: >=200 mg/d L plus symptoms Blood Urea Nitrogen 27(H) 8 - 18 mg/dL [facility] Creatinine 1.23(H) 0.70 - 1.20 mg/dL [facility] Sodium 132(L) 135 - 145 mmol/L [facility] Potassium 3.7 3.5 - 5.0 mmol/L [facility] Comment: Please note: ??Patients with WBC >100,000 may have falsely elevated Potassium levels. ??For accurate Potassium quantification in these patients send serum separator tube (gold top) for subsequent determinations. ??Contact the Clinical Chemistry Laboratory if there are any questions. Chloride 95(L) 98 - 107 mmol/L [facility] Carbon Dioxide 23 22 - 31 mmol/L [facility] Anion Gap 14 5 - 15 mmol/L [facility] Calcium 9.5 8.5 - 10.5 mg/dL [facility] Est Glomerular Filtration Rate 46(L) >=60 mL/min/1. 73 m?? [facility] Comment: This patient's estimated GFR was [...] Lab Chong Campbell MD [place] [address] * (ABNORMAL) Differential, Automated (03/05/2023 3:50 AM EDT) Neutrophil % 55.4 % [facility] Neutrophil Absolute 4.15 1.70 - 6.10 x10(3)/mc L [facility] Lymph % 30.4 % [facility] Lymphocytes Abs 2.3 0.9 - 3.2 x10(3)/mc L [facility] Monocyte % 12.3 % [facility] Monocyte Abs 0.9 0.3 - 0.9 x10(3)/mc L [facility] Eos % 0.1 % [facility] Eosinophils Abs 0.0 0.0 - 0.4 x10(3)/mc L [facility] Basophil % 0.5 % [facility] Baso Absolute 0.0 0.0 - 0.1 x10(3)/ L [facility] Immature Gran % 1.30 % [facility] Comment: Immature granulocytes(IG's)percentage and absolute count will include metamyelocytes, myelocytes, and promyelocytes. Blood smears from CBCs yielding IG's will be scanned manually for concordance. If this scan disagrees with the automated IG or if promyelocytes are noted, a manual differential will be performed. Immature Gran Absolute 0.10(H) 0.00 - 0.04 x10(3)/mc L [facility] Blood 03/05/2023 3:50 AM EDT 03/05/2023 4:19 AM EDT Narrative Resulting Agency Comment Spec In Lab Mega Gant MD HEMATOLOGY ORDERABLE S [facility] [place] [address] * (ABNORMAL) Hemogram (03/05/2023 3:50 AM EDT) White Blood Cell 7.5 4.0 - 9.5 x10(3)/mc L [facility] Red Blood Cell 3.57(L) 4.00 - 5.21 x10(6)/mc L [facility] Hemoglobin 11.9 11.7 - 15.5 g/dL [facility] Hematocrit 35.4(L) 35.7 - 45.8 % [facility] Mean Cell Volume 99.2(H) 82.6 - 94.4 fL [facility] Mean Cell Hemoglobin 33.3(H) 27.1 - 32.0 pg [facility] Mean Cell Hemoglobin Concentration 33.6 31.7 - 35.0 g/dL [facility] Platelet 228 145 - 357 x10(3)/mc L [facility] RDW Standard Deviation 45.3 37.0 - 46.0 fL [facility] RDW coefficient of variation 12.5 11.5 - 14.1 % [facility] Mean Platelet Volume 9.4 7.6 - 12.9 fL [facility] NRBC% auto 0.0 % [facility] NRBC Absolute 0.000 0.000 - 0.000 x10(3)/ L [facility] Blood 03/05/2023 3:50 AM EDT 03/05/2023 4:19 AM EDT Narrative Resulting Agency Comment Spec In Lab Mega Gant MD HEMATOLOGY ORDERABLE S [facility] [place] [address] * Magnesium (03/05/2023 3:50 AM EDT) Magnesium 1.03 0.69 - 1.07 mmol/L [facility] Blood 03/05/2023 3:50 AM EDT 03/05/2023 4:18 AM EDT Narrative Resulting Agency Comment Spec In Lab Chong Campbell MD CHEMISTRY ORDERABLE S [facility] [place] [address] * (ABNORMAL) Phosphorus (03/05/2023 3:50 AM EDT) Phosphorus 5.6(H) 2.5 - 4.5 mg/dL [facility] Blood 03/05/2023 3:50 AM EDT 03/05/2023 4:18 AM EDT Narrative Resulting Agency Comment Spec In Lab Chong Campbell MD CHEMISTRY ORDERABLE S Performing Organization Address [facility]/ZIP Co de Phone Number [facility] [place] [address] * (ABNORMAL) Basic Metabolic Panel (non-fasting) (03/05/2023 3:50 AM EDT) Glucose 104 65 - 199 mg/dL [facility] Comment:Diabetes: >=200 mg/d L plus symptoms Blood Urea Nitrogen 31(H) 8 - 18 mg/dL [facility] Creatinine 1.69(H) 0.70 - 1.20 mg/dL [facility] Sodium 133(L) 135 - 145 mmol/L [facility] Potassium 4.4 3.5 - 5.0 mmol/L [facility] Comment: Please note: ??Patients with WBC >100,000 may have falsely elevated Potassium levels. ??For accurate Potassium quantification in these patients send serum separator tube (gold top) for subsequent determinations. ??Contact the Clinical Chemistry Laboratory if there are any questions. Chloride 96(L) 98 - 107 mmol/L [facility] Carbon Dioxide 24 22 - 31 mmol/L [facility] Anion Gap 13 5 - 15 mmol/L [facility] Calcium 9.5 8.5 - 10.5 mg/dL [facility] Est Glomerular Filtration Rate 31(L) >=60 mL/min/1. 73 m?? [facility] Comment: This patient's estimated GFR was [...] Lab Chong Campbell MD CHEMISTRY ORDERABLE S [facility] [place] [address] * Troponin (03/04/2023 10:45 PM EDT) Troponin-T, High Sensitivity 13 <=14 ng/L [facility] Comment: This patient's troponin T concentration [...] troponin value can be found in the [facility] Test Catalog Troponin - [facility] Test Catalog Reference: Fourth [place] Definition of Myocardial Infarction. Journal of the [employer] [employer] 2018;72:4396-9823 Blood 03/04/2023 10:4 5 PM EDT 03/04/2023 10:49 PM EDT Narrative Resulting Agency Comment Spec In Lab Brandon Crowley MD CHEMISTRY ORDERABLES Performing Organization Address City/[facility]/ZIP Co de Phone Number [facility] [place] [address] * EKG 12 Lead (03/04/2023 8:24 PM EDT) Ventricular rate 66 BPM MUSE SYSTEM Atrial Rate 66 BPM MUSE SYSTEM P-R Interval 148 ms MUSE SYSTEM QRS Duration 134 ms MUSE SYSTEM Q-T Interval 454 ms MUSE SYSTEM QTC Calculated (Bezet) 475 ms MUSE SYSTEM Calculated P Coleman 63 degrees MUSE SYSTEM Calculated R Coleman -64 degrees MUSE SYSTEM Calculated T Coleman 26 degrees MUSE SYSTEM INTERPRETATION Normal sinus rhythm Right bundle branch block Left anterior fascicular block Bifascicular block Abnormal ECG When compared with ECG of 01-MAR-2023 13:52, No significant change was found Confirmed by MD Benny, Juan Ramon Leon ([id number]) on 03/05/2023 11:52:50 AM MUSE SYSTEM 03/04/2023 8:24 PM EDT 03/05/2023 11:52 AM EDT Gregorio Goodman MD ECG ORDERABLES Performing Organization Address [facility] Co de Phone Number MUSE SYSTEM * Troponin (03/04/2023 8:10 PM EDT) Troponin-T, High Sensitivity 11 <=14 ng/L [facility] Comment: This patient's troponin T concentration [...] troponin value can be found in the [facility] Test Catalog Troponin - [facility] Test Catalog Reference: Fourth [place] Definition of Myocardial Infarction. Journal of the [employer] [employer] 2018;72:6249-8990 Blood 03/04/2023 8:10 PM EDT 03/04/2023 8:18 PM EDT Narrative Resulting Agency Comment Spec In Lab Brandon Crowley MD CHEMISTRY ORDERABLES Performing Organization Address City/State/[facility] Co de Phone Number [facility] [place] [address] * (ABNORMAL) Differential, Automated (03/04/2023 5:17 AM EDT) Neutrophil % 67.7 % [facility] Neutrophil Absolute 5.10 1.70 - 6.10 x10(3)/mc L [facility] Lymph % 21.0 % [facility] Lymphocytes Abs 1.6 0.9 - 3.2 x10(3)/mc L [facility] Monocyte % 9.3 % [facility] Monocyte Abs 0.7 0.3 - 0.9 x10(3)/mc L [facility] Eos % 0.3 % [facility] Eosinophils Abs 0.0 0.0 - 0.4 x10(3)/mc L [facility] Basophil % 0.5 % [facility] Baso Absolute 0.0 0.0 - 0.1 x10(3)/mc L [facility] Immature Gran % 1.20 % [facility] Comment: Immature granulocytes(IG's)percentage and absolute count will include metamyelocytes, myelocytes, and promyelocytes. Blood smears from CBCs yielding IG's will be scanned manually for concordance. If this scan disagrees with the automated IG or if promyelocytes are noted, a manual differential will be performed. Immature Gran Absolute 0.09(H) 0.00 - 0.04 x10(3)/mc L [facility] Blood 03/04/2023 5:17 AM EDT 03/04/2023 5:29 AM EDT Narrative Resulting Agency Comment Spec In Lab Mega Gant MD HEMATOLOGY ORDERABLE S [facility] [place] [address] * (ABNORMAL) Hemogram (03/04/2023 5:17 AM EDT) White Blood Cell 7.5 4.0 - 9.5 x10(3)/mc L [facility] Red Blood Cell 3.71(L) 4.00 - 5.21 x10(6)/mc L [facility] Hemoglobin 12.1 11.7 - 15.5 g/dL [facility] Hematocrit 36.6 35.7 - 45.8 % [facility] Mean Cell Volume 98.7(H) 82.6 - 94.4 fL [facility] Mean Cell Hemoglobin 32.6(H) 27.1 - 32.0 pg [facility] Mean Cell Hemoglobin Concentration 33.1 31.7 - 35.0 g/dL [facility] Platelet 254 145 - 357 x10(3)/mc L [facility] RDW Standard Deviation 45.9 37.0 - 46.0 fL [facility] RDW coefficient of variation 12.7 11.5 - 14.1 % [facility] Mean Platelet Volume 9.1 7.6 - 12.9 fL [facility] NRBC% auto 0.0 % [facility] NRBC Absolute 0.000 0.000 - 0.000 x10(3)/mc L [facility] Blood 03/04/2023 5:17 AM EDT 03/04/2023 5:29 AM EDT Narrative Resulting Agency Comment Spec In Lab Mega Gant MD HEMATOLOGY ORDERABLE S [facility] [place] [address] * Magnesium (03/04/2023 5:17 AM EDT) Magnesium 0.98 0.69 - 1.07 mmol/L [facility] Blood 03/04/2023 5:17 AM EDT 03/04/2023 5:29 AM EDT Narrative Resulting Agency Comment Spec In Lab Chong Campbell MD CHEMISTRY ORDERABLE S Performing Organization Address City/[facility]/ZIP Co de Phone Number [facility] [place] [address] * (ABNORMAL) Phosphorus (03/04/2023 5:17 AM EDT) Phosphorus 4.6(H) 2.5 - 4.5 mg/dL [facility] Blood 03/04/2023 5:17 AM EDT 03/04/2023 5:29 AM EDT Narrative Resulting Agency Comment Spec In Lab Chong Campbell MD CHEMISTRY ORDERABLE S Performing Organization Address [facility] Co de Phone Number [facility] [place] [address] * (ABNORMAL) Basic Metabolic Panel (non-fasting) (03/04/2023 5:17 AM EDT) Glucose 113 65 - 199 mg/dL [facility] Comment:Diabetes: >=200 mg/d L plus symptoms Blood Urea Nitrogen 22(H) 8 - 18 mg/dL [facility] Creatinine 1.21(H) 0.70 - 1.20 mg/dL [facility] Sodium 132(L) 135 - 145 mmol/L [facility] Potassium 3.9 3.5 - 5.0 mmol/L [facility] Comment: Please note: ??Patients with WBC >100,000 may have falsely elevated Potassium levels. ??For accurate Potassium quantification in these patients send serum separator tube (gold top) for subsequent determinations. ??Contact the Clinical Chemistry Laboratory if there are any questions. Chloride 95(L) 98 - 107 mmol/L [facility] Carbon Dioxide 27 22 - 31 mmol/L [facility] Anion Gap 10 5 - 15 mmol/L [facility] Calcium 9.6 8.5 - 10.5 mg/dL [facility] Est Glomerular Filtration Rate 47(L) >=60 mL/min/1. 73 m?? [facility] Comment: This patient's estimated GFR was [...] MD CHEMISTRY ORDERABLE S Performing Organization Address City/State/[facility] Co de Phone Number [facility] [place] [address] * (ABNORMAL) Differential, Automated (03/03/2023 4:07 AM EDT) Neutrophil % 64.1 % [facility] Neutrophil Absolute 5.71 1.70 - 6.10 x10(3)/mc L [facility] Lymph % 24.8 % [facility] Lymphocytes Abs 2.2 0.9 - 3.2 x10(3)/mc L [facility] Monocyte % 10.0 % [facility] Monocyte Abs 0.9 0.3 - 0.9 x10(3)/mc L [facility] Eos % 0.1 % [facility] Eosinophils Abs 0.0 0.0 - 0.4 x10(3)/mc L [facility] Basophil % 0.3 % [facility] Baso Absolute 0.0 0.0 - 0.1 x10(3)/mc L [facility] Immature Gran % 0.70 % [facility] Comment: Immature granulocytes(IG's)percentage and absolute count will include metamyelocytes, myelocytes, and promyelocytes. Blood smears from CBCs yielding IG's will be scanned manually for concordance. If this scan disagrees with the automated IG or if promyelocytes are noted, a manual differential will be performed. Immature Gran Absolute 0.06(H) 0.00 - 0.04 x10(3)/mc L [facility] Blood 03/03/2023 4:07 AM EDT 03/03/2023 4:43 AM EDT Narrative Resulting Agency Comment Spec In Lab Mega Gant MD HEMATOLOGY ORDERABLE S [facility] [place] [address] * (ABNORMAL) Hemogram (03/03/2023 4:07 AM EDT) White Blood Cell 8.9 4.0 - 9.5 x10(3)/mc L [facility] Red Blood Cell 3.70(L) 4.00 - 5.21 x10(6)/[facility] Hemoglobin 12.0 11.7 - 15.5 g/dL [facility] Hematocrit 37.2 35.7 - 45.8 % [facility] Mean Cell Volume 100.5(H) 82.6 - 94.4 fL [facility] Mean Cell Hemoglobin 32.4(H) 27.1 - 32.0 pg [facility] Mean Cell Hemoglobin Concentration 32.3 31.7 - 35.0 g/dL [facility] Platelet 258 145 - 357 x10(3)/mc L [facility] RDW Standard Deviation 47.8(H) 37.0 - 46.0 fL [facility] RDW coefficient of variation 12.8 11.5 - 14.1 % [facility] Mean Platelet Volume 9.3 7.6 - 12.9 fL [facility] NRBC% auto 0.0 % [facility] NRBC Absolute 0.000 0.000 - 0.000 x10(3)/mc L [facility] Blood 03/03/2023 4:07 AM EDT 03/03/2023 4:43 AM EDT Narrative Resulting Agency Comment Spec In Lab Mega Gant MD HEMATOLOGY ORDERABLE S Performing Organization Address City/[facility]/ZIP Co de Phone Number [facility] [place] [address] * Magnesium (03/03/2023 4:07 AM EDT) Magnesium 0.96 0.69 - 1.07 mmol/L [facility] Blood 03/03/2023 4:07 AM EDT 03/03/2023 4:43 AM EDT Narrative Resulting Agency Comment Spec In Lab Chong Campbell MD CHEMISTRY ORDERABLE S Performing Organization Address [facility] Co de Phone Number [facility] [place] [address] * (ABNORMAL) Phosphorus (03/03/2023 4:07 AM EDT) Phosphorus 4.6(H) 2.5 - 4.5 mg/dL [facility] Blood 03/03/2023 4:07 AM EDT 03/03/2023 4:43 AM EDT Narrative Resulting Agency Comment Spec In Lab Chong Campbell MD CHEMISTRY ORDERABLE S Performing Organization Address [facility] Co de Phone Number [facility] [place] [address] * (ABNORMAL) Basic Metabolic Panel (non-fasting) (03/03/2023 4:07 AM EDT) Glucose 97 65 - 199 mg/dL [facility] Comment:Diabetes: >=200 mg/d L plus symptoms Blood Urea Nitrogen 18 8 - 18 mg/dL [facility] Creatinine 1.01 0.70 - 1.20 mg/dL [facility] Sodium 138 135 - 145 mmol/L [facility] Potassium 4.3 3.5 - 5.0 mmol/L [facility] Comment: Please note: ??Patients with WBC >100,000 may have falsely elevated Potassium levels. ??For accurate Potassium quantification in these patients send serum separator tube (gold top) for subsequent determinations. ??Contact the Clinical Chemistry Laboratory if there are any questions. Chloride 103 98 - 107 mmol/L [facility] Carbon Dioxide 22 22 - 31 mmol/L [facility] Anion Gap 13 5 - 15 mmol/L [facility] Calcium 9.4 8.5 - 10.5 mg/dL [facility] Est Glomerular Filtration Rate 58(L) >=60 mL/min/1. 73 m?? [facility] Comment: This patient's estimated GFR was [...] Lab Chong Campbell MD CHEMISTRY ORDERABLE S [facility] [place] [address] * (ABNORMAL) Vitamin B12 (03/03/2023 4:07 AM EDT) Vitamin B12 1,348(H) 232 - 1,245 pg/mL [facility] Blood 03/03/2023 4:07 AM EDT 03/03/2023 4:43 AM EDT Narrative Resulting Agency Comment Spec In Lab Chong Campbell MD CHEMISTRY ORDERABLE S Performing Organization Address City/[facility]/[place] [address] * (ABNORMAL) Differential, Automated (03/02/2023 4:09 AM EDT) Neutrophil % 69.7 % [facility] Neutrophil Absolute 6.12(H) 1.70 - 6.10 x10(3)/mc L [facility] Lymph % 20.4 % [facility] Lymphocytes Abs 1.8 0.9 - 3.2 x10(3)/ L [facility] Monocyte % 8.5 % [facility] Monocyte Abs 0.8 0.3 - 0.9 x10(3)/ L [facility] Eos % 0.2 % [facility] Eosinophils Abs 0.0 0.0 - 0.4 x10(3)/[facility] Basophil % 0.5 % [facility] Baso Absolute 0.0 0.0 - 0.1 x10(3)/ L [facility] Immature Gran % 0.70 % [facility] Comment: Immature granulocytes(IG's)percentage and absolute count will include metamyelocytes, myelocytes, and promyelocytes. Blood smears from CBCs yielding IG's will be scanned manually for concordance. If this scan disagrees with the automated IG or if promyelocytes are noted, a manual differential will be performed. Immature Gran Absolute 0.06(H) 0.00 - 0.04 x10(3)/ L [facility] Blood 03/02/2023 4:09 AM EDT 03/02/2023 4:17 AM EDT Narrative Resulting Agency Comment Spec In Lab Mega Gant MD HEMATOLOGY ORDERABLE S [facility] [place] [address] * (ABNORMAL) Hemogram (03/02/2023 4:09 AM EDT) White Blood Cell 8.8 4.0 - 9.5 x10(3)/ L [facility] Red Blood Cell 3.38(L) 4.00 - 5.21 x10(6)/ L [facility] Hemoglobin 11.0(L) 11.7 - 15.5 g/dL [facility] Hematocrit 34.3(L) 35.7 - 45.8 % [facility] Mean Cell Volume 101.5(H) 82.6 - 94.4 fL [facility] Mean Cell Hemoglobin 32.5(H) 27.1 - 32.0 pg [facility] Mean Cell Hemoglobin Concentration 32.1 31.7 - 35.0 g/dL [facility] Platelet 250 145 - 357 x10(3)/mc L [facility] RDW Standard Deviation 49.0(H) 37.0 - 46.0 fL [facility] RDW coefficient of variation 13.1 11.5 - 14.1 % [facility] Mean Platelet Volume 9.1 7.6 - 12.9 fL [facility] NRBC% auto 0.0 % [facility] NRBC Absolute 0.000 0.000 - 0.000 x10(3)/mc L [facility] Blood 03/02/2023 4:09 AM EDT 03/02/2023 4:17 AM EDT Narrative Resulting Agency Comment Spec In Lab Mega Gant MD HEMATOLOGY ORDERABLE S Performing Organization Address [facility]/[place] [address] * Magnesium (03/02/2023 4:09 AM EDT) Magnesium 0.96 0.69 - 1.07 mmol/L [facility] Blood 03/02/2023 4:09 AM EDT 03/02/2023 4:17 AM EDT Narrative Resulting Agency Comment Spec In Lab Chong Campbell MD CHEMISTRY ORDERABLE S Performing Organization Address City/[facility]/ZIP Co de Phone Number [facility] [place] [address] * Phosphorus (03/02/2023 4:09 AM EDT) Phosphorus 3.9 2.5 - 4.5 mg/dL [facility] Blood 03/02/2023 4:09 AM EDT 03/02/2023 4:17 AM EDT Narrative Resulting Agency Comment Spec In Lab Chong Campbell MD CHEMISTRY ORDERABLE S [facility] [place] [address] * Basic Metabolic Panel (non-fasting) (03/02/2023 4:09 AM EDT) Glucose 99 65 - 199 mg/dL [facility] Comment:Diabetes: >=200 mg/d L plus symptoms Blood Urea Nitrogen 15 8 - 18 mg/dL [facility] Creatinine 0.96 0.70 - 1.20 mg/dL [facility] Sodium 138 135 - 145 mmol/L [facility] Potassium 4.3 3.5 - 5.0 mmol/L [facility] Comment: Please note: ??Patients with WBC >100,000 may have falsely elevated Potassium levels. ??For accurate Potassium quantification in these patients send serum separator tube (gold top) for subsequent determinations. ??Contact the Clinical Chemistry Laboratory if there are any questions. Chloride 104 98 - 107 mmol/L [facility] Carbon Dioxide 26 22 - 31 mmol/L [facility] Anion Gap 8 5 - 15 mmol/L [facility] Calcium 9.2 8.5 - 10.5 mg/dL [facility] Est Glomerular Filtration Rate 62 >=60 mL/min/1. 73 m?? [facility] Comment: This patient's estimated GFR was [...] Lab Chong Campbell MD CHEMISTRY ORDERABLE S [facility] [place] [address] * (ABNORMAL) Differential, Automated (03/01/2023 4:48 PM EDT) Neutrophil % 60.9 % [facility] Neutrophil Absolute 4.51 1.70 - 6.10 x10(3)/mc L [facility] Lymph % 27.2 % [facility] Lymphocytes Abs 2.0 0.9 - 3.2 x10(3)/mc L [facility] Monocyte % 10.2 % [facility] Monocyte Abs 0.8 0.3 - 0.9 x10(3)/mc L [facility] Eos % 0.5 % [facility] Eosinophils Abs 0.0 0.0 - 0.4 x10(3)/mc L [facility] Basophil % 0.5 % [facility] Baso Absolute 0.0 0.0 - 0.1 x10(3)/ L [facility] Immature Gran % 0.70 % [facility] Comment: Immature granulocytes(IG's)percentage and absolute count will include metamyelocytes, myelocytes, and promyelocytes. Blood smears from CBCs yielding IG's will be scanned manually for concordance. If this scan disagrees with the automated IG or if promyelocytes are noted, a manual differential will be performed. Immature Gran Absolute 0.05(H) 0.00 - 0.04 x10(3)/ L [facility] Blood 03/01/2023 4:48 PM EDT 03/01/2023 5:03 PM EDT Narrative Resulting Agency Comment Spec In Lab Mega Gant MD HEMATOLOGY ORDERABLE S [facility] [place] [address] * (ABNORMAL) Hemogram (03/01/2023 4:48 PM EDT) White Blood Cell 7.4 4.0 - 9.5 x10(3)/mc L [facility] Red Blood Cell 3.60(L) 4.00 - 5.21 x10(6)/mc L [facility] Hemoglobin 11.7 11.7 - 15.5 g/dL [facility] Hematocrit 36.2 35.7 - 45.8 % [facility] Mean Cell Volume 100.6(H) 82.6 - 94.4 fL [facility] Mean Cell Hemoglobin 32.5(H) 27.1 - 32.0 pg [facility] Mean Cell Hemoglobin Concentration 32.3 31.7 - 35.0 g/dL [facility] Platelet 276 145 - 357 x10(3)/mc L [facility] RDW Standard Deviation 48.9(H) 37.0 - 46.0 fL [facility] RDW coefficient of variation 13.2 11.5 - 14.1 % [facility] Mean Platelet Volume 9.2 7.6 - 12.9 fL [facility] NRBC% auto 0.0 % [facility] NRBC Absolute 0.000 0.000 - 0.000 x10(3)/mc L [facility] Blood 03/01/2023 4:48 PM EDT 03/01/2023 5:03 PM EDT Narrative Resulting Agency Comment Spec In Lab Mega Gant MD HEMATOLOGY ORDERABLE S Performing Organization Address [facility]/ZIP Co de Phone Number [facility] [place] [address] * Magnesium (03/01/2023 4:48 PM EDT) Magnesium 0.93 0.69 - 1.07 mmol/L [facility] Blood 03/01/2023 4:48 PM EDT 03/01/2023 5:03 PM EDT Narrative Resulting Agency Comment Spec In Lab Chong Campbell MD CHEMISTRY ORDERABLE S Performing Organization Address City/[facility]/ZIP Co de Phone Number [facility] [place] [address] * Phosphorus (03/01/2023 4:48 PM EDT) Phosphorus 4.1 2.5 - 4.5 mg/dL [facility] Blood 03/01/2023 4:48 PM EDT 03/01/2023 5:03 PM EDT Narrative Resulting Agency Comment Spec In Lab Chong Campbell MD CHEMISTRY ORDERABLE S Performing Organization Address [facility]/ZIP Co de Phone Number [facility] [place] [address] * Basic Metabolic Panel (non-fasting) (03/01/2023 4:48 PM EDT) Glucose 83 65 - 199 mg/dL [facility] Comment:Diabetes: >=200 mg/d L plus symptoms Blood Urea Nitrogen 14 8 - 18 mg/dL [facility] Creatinine 0.99 0.70 - 1.20 mg/dL [facility] Sodium 140 135 - 145 mmol/L [facility] Potassium 4.3 3.5 - 5.0 mmol/L [facility] Comment: Please note: ??Patients with WBC >100,000 may have falsely elevated Potassium levels. ??For accurate Potassium quantification in these patients send serum separator tube (gold top) for subsequent determinations. ??Contact the Clinical Chemistry Laboratory if there are any questions. Chloride 103 98 - 107 mmol/L [facility] Carbon Dioxide 26 22 - 31 mmol/L [facility] Anion Gap 11 5 - 15 mmol/L [facility] Calcium 9.5 8.5 - 10.5 mg/dL [facility] Est Glomerular Filtration Rate 60 >=60 mL/min/1. 73 m?? [facility] Comment: This patient's estimated GFR was [...] Narrative Resulting Agency Comment Spec In Lab Cohng Campbell MD CHEMISTRY ORDERABLE S Performing Organization Address City/[facility]/ZIP Co de Phone Number [facility] [place] [address] * ECHO COMPLETE (03/01/2023 4:42 PM EDT) Anatomical Region Laterality Modality Cardiac Other 03/01/2023 4:11 PM EDT Narrative 03/01/2023 5:00 PM EDT ? Echocardiogram Report Name: DELEON, LINDSEY D ? Study Date: 03/01/2023 04:11 PMBP: 169/82 mmHg ? Patient Location[facility] A HR: 70 : 1950 ? Height: 160 cm ? Account: [id number] Age: 72 yrs ? Weight: 79 kg Gender: Female ?BSA: 1.8 m2 Ordering Physician: MARC^Brittany Referring Physician: ALEXANDER GAMEZ Performed By: Gianna Freedman RDCS Reason For Study: Aortic valve stenosis Exam Location: [facility]. Interpretation Summary Left ventricle [...] is mild to moderate mitral regurgitation. Procedure Complete-[id number]. Satisfactory quality. There is normal sinus rhythm. [...] Date: 304:11 PMBP: 169/82 mmHg Patient Location: [address] HR: 70 : 1950 Height: 160 cm Account: [id number] Age: 72 yrs Weight: 79 kg Gender: Female BSA: 1.8 m2 Ordering Physician: JUAN CARLOS^CHONG^P Referring Physician: ALEXANDER GAMEZ Performed By: Gianna Freedman RDCS Reason For Study: Aortic valve stenosis Exam Location: [facility]. Interpretation Summary Left ventricle [...] is mild to moderate mitral regurgitation. Procedure Complete-[id number]. Satisfactory quality. There is normal sinus rhythm. [...] (Bezet) 474 ms MUSE SYSTEM Calculated P Coleman 62 degrees MUSE SYSTEM Calculated R Coleman -59 degrees MUSE SYSTEM Calculated T Coleman 18 degrees MUSE SYSTEM INTERPRETATION Normal sinus [...] 0823 (Given - Provider: Addison Farias RN) buPROPion [...] on Mon03/01/23 at 2100, Until Discontinued, Routine 2045 (Given - Provider: Zhanna Ratliff, RANGEL) [...] 0914 (Given - Provider: Addison Farias RN) levothyroxine (Synthroid) tablet 75 mcg 75 mcg, Oral, EVERY MORNING, First dose on Mon03/02/23 at 0600, Until Discontinued, Routine 0513 (Given - Provider: Ynes Park, RANGEL) 0625 (Given - Provider: Zhanna Ratliff RN)1400 (JAN Hold - Provider: Admin Adt [...] at 0900 0818 (Given - Provider: Addison Fairas, RANGEL) metoprolol succinate XL (Toprol-XL) tablet 25 mg 25 mg, Oral, DAILY, First dose on Mon03/08/23 at 1000, Until Discontinued, DO NOT CRUSH OR OPEN, Routine 0914 (Given - Provider: Addison Farias, RN) mometasone (Asmanex Twisthaler) 220 mcg/actuation DPI Inhaler [...] RN) 08 (See Alternative - Provider: Addison Farias, RANGEL) pantoprazole EC (Protonix) tablet 40 mg (CANCELED) 40 mg, Oral, DAILY, First dose on Mon03/02/23 at 0900, Until Discontinued, DO NOT CRUSH OR OPEN 0808 (Given - Provider: Tosha Flores RN) 0853 (Given - Provider: Adi Chappell I, [...] crush, chew, or suck on tablet., Routine 153 (Given - Provider: Tosha Flores RN) potassium [...] (Given - Provider: Sylvie Eaton RN) 1400 ([facility] Hold - Provider: Admin Adt - Reason: Transfer to a Procedural area)1700 (Not Given - Provider: Arlene Cole RN - Reason: Patient not available)1810 ([facility] Unhold - Provider: Admin Adt) senna-docusate (Pericolace) [...] 0855 (Given - Provider: Adi Kwan RN)1400 ([facility] Hold - Provider: Admin Adt - Reason: Transfer to a Procedural area)1810 ([facility] Unhold - Provider: Admin Adt) sodium chloride 0.9 % (flush) (BD PosiFlush Normal Saline 0.9) flush 5 mL (CANCELED) 5 mL, Intravenous, 2 TIMES DAILY, First dose on Mon03/07/23 at 0930, Until Discontinued, Routine 0855 (Given - Provider: Adi Kwan RN)1400 ([facility] Hold - Provider: Admin Adt - Reason: Transfer to a Procedural area)1810 ([facility] Unhold - Provider: Admin Adt) sodium chloride 0.9 % (flush) (BD PosiFlush Normal Saline 0.9) flush 5 mL 5 mL, Intravenous, 2 TIMES DAILY, First dose on Mon03/07/23 at 2100, Until Discontinued, Routine 203 (Given - Provider: Arlene Cole RN) 0824 (Given - Provider: Addison Farias RN) ziprasidone (Geodon) capsule 20 mg 20 mg, Oral, 2 TIMES DAILY WITH MEALS, First dose (after last modification) on Mon03/01/23 at 1700, Until Discontinued, May cause prolongation of QT interval. Administer with a meal containing at least 500 calories., Routine 08 (Given - Provider: Tosha Flores RN)1708 (Given - Provider: Sylvie Eaton, RANGEL) 0856 (Given - Provider: Adi Chappell I RN)1400 (JAN Hold - Provider: Admin Adt [...] Routine documented in this encounter Care Teams Slipman Relationship Specialty Start Date End Date Vanita Churchill, KYARA PCP - General Family Medicine 02/27/19 07/18/24 documented as of this encounter
--- OUTSIDE RECORDS SUMMARY | 2024-08-12 07:36 | XMS_ITS | Encounter Summary ---
[place] [address] Care Team Providers Care System Software Developer Name Role Phone KwesiVanita mix Omar SPARORW Primary Care Provider [phone] Reason for Visit * Reason Onset Date Comments Other 02/28/2023 Missed call Encounter Details Date Type Department Care Team (Late st Contact Info) Description 02/28/2023 Telephone Cardiology at [address] [phone] Clarice Bates RN Other (Missed call) Social History Tobacco Use Types Packs/Day Years Used Date Smoking Tobacco: Former Cigarettes 2 30 1 12/21/1973 - 10/21/2004 Smokeless Tobacco: Never Alcohol Use Standard Drinks/Week Comments Yes 0 (1 standard drink = 0.6 oz pur e alcohol) [facility] Inpatient Questions Answer Date Recorded Does Anyone [...] VM that pt missed a call from [facility] and she was waiting to hear if [...] PM EDT Office Visit Cardiology at [address] [phone] Rigoberto Diaz MD [facility] [place] [address] Scheduled Procedures Name Priority Associated Diagnoses Date/Ti me EGD, UPPER GI ENDOSCOPY (WRV U 2.09) Incontinence of feces, unspecified fecal incontinence type Dysphagia, unspecified type COLONOSCOPY, DIAGNOSTIC (WRV U 3.26) Incontinence of feces, unspecified fecal incontinence type Dysphagia, unspecified type documented as of this encounter Visit Diagnoses Not on filedocumented in this encounter Care Teams System Software Developer Relationship Specialty Start Date End Date Vanita Churchill APRN PCP - General Family Medicine 02/27/19 07/18/24 documented as of this encounter
--- OUTSIDE RECORDS SUMMARY | 2024-08-12 07:36 | XMS_ITS | Encounter Summary ---
[place] [address] Care Team Providers Care Bog Worker Name Role Phone KweisVanita mix Omar SPARROW Primary Care Provider [phone] Encounter Details Date Type Department Care Team (Late st Contact Info) Description 02/23/2023 Notes Only Cardiology at [address] [phone] Edwige Nieves APRN [facility] [address] [place] [address] Social History Tobacco Use Types Packs/Day Years [...] PM EDT Office Visit Cardiology at [address] [place] [phone] Rigoberto Diaz MD [facility] [place] [address] Scheduled Procedures Name Priority Associated Diagnoses Date/Ti me EGD, UPPER GI ENDOSCOPY (WRV U 2.09) Incontinence of feces, unspecified fecal incontinence type Dysphagia, unspecified type COLONOSCOPY, DIAGNOSTIC (WRV U 3.26) Incontinence of feces, unspecified fecal incontinence type Dysphagia, unspecified type documented as of this encounter Visit Diagnoses Not on filedocumented in this encounter Care Teams Bog Worker Relationship Specialty Start Date End Date Vanita Churchill APRN PCP - General Family Medicine 02/27/19 07/18/24 documented as of this encounter
--- OUTSIDE RECORDS SUMMARY | 2024-08-12 07:36 | XMS_ITS | Encounter Summary ---
Author Organization [facility] [place] [address] Care Team Providers Care Senior Chemical Process Engineer Name Role Phone Vanita Churchill KYARA Primary Care Provider [phone] Encounter Details Date Type Department Care Team (Latest Contact Info) Description 02/09/2023 10:15 AM EDT Laboratory Appointment Lab [address] [place] [phone] Aortic valve stenosis, etiology of cardiac valve [...] PM EDT Office Visit Cardiology at [address] [phone] Rigoberto Diaz MD [facility] [address] [place] [address] Scheduled Procedures Name Priority Associated Diagnoses Date/Ti [...] cardiac valve disease unspecified COMPREHENSIVE METABOLIC PANEL Routine 02/09/2023 10:09 AM EDT Aortic valve stenosis, etiology of cardiac valve disease unspecified documented in this encounter Results * (ABNORMAL) Differential, Automated (02/09/2023 10:09 AM EDT) Neutrophil % 67.5 % [facility] Neutrophil Absolute 7.46(H) 1.70 - 6.10 x10(3)/mc L [facility] Lymph % 18.8 % [facility] Lymphocytes Abs 2.1 0.9 - 3.2 x10(3)/mc L [facility] Monocyte % 10.9 % [facility] Monocyte Abs 1.2(H) 0.3 - 0.9 x10(3)/mc L [facility] Eos % 1.9 % [facility] Eosinophils Abs 0.2 0.0 - 0.4 x10(3)/mc L [facility] Basophil % 0.4 % [facility] Baso Absolute 0.0 0.0 - 0.1 x10(3)/mc L [facility] Immature Gran % 0.50 % [facility] Comment: Immature granulocytes(IG's)percentage and absolute count will include metamyelocytes, myelocytes, and promyelocytes. Blood smears from CBCs yielding IG's will be scanned manually for concordance. If this scan disagrees with the automated IG or if promyelocytes are noted, a manual differential will be performed. Immature Gran Absolute 0.05(H) 0.00 - 0.04 x10(3)/mc L [facility] Blood 02/09/2023 10:0 9 AM EDT 02/09/2023 10:15 AM EDT Narrative Resulting Agency Comment Spec In Lab Gregorio Goodman MD HEMATOLOGY ORDERABLE S [facility] [place] [address] * (ABNORMAL) Hemogram (02/09/2023 10:09 AM EDT) White Blood Cell 11.0(H) 4.0 - 9.5 x10(3)/mc L [facility] Red Blood Cell 3.21(L) 4.00 - 5.21 x10(6)/mc L [facility] Hemoglobin 10.5(L) 11.7 - 15.5 g/dL [facility] Hematocrit 32.5(L) 35.7 - 45.8 % [facility] Mean Cell Volume 101.2(H) 82.6 - 94.4 fL [facility] Mean Cell Hemoglobin 32.7(H) 27.1 - 32.0 pg [facility] Mean Cell Hemoglobin Concentration 32.3 31.7 - 35.0 g/dL [facility] Platelet 311 145 - 357 x10(3)/mc L [facility] RDW Standard Deviation 47.9(H) 37.0 - 46.0 fL [facility] RDW coefficient of variation 12.9 11.5 - 14.1 % [facility] Mean Platelet Volume 9.4 7.6 - 12.9 fL [facility] NRBC% auto 0.0 % [facility] NRBC Absolute 0.000 0.000 - 0.000 x10(3)/mc L [facility] Blood 02/09/2023 10:0 9 AM EDT 02/09/2023 10:15 AM EDT Narrative Resulting Agency Comment Spec In Lab Gregorio Goodman MD HEMATOLOGY ORDERABLE S [facility] [place] [address] * (ABNORMAL) Comprehensive metabolic panel (non-fasting) (02/09/2023 10:09 AM EDT) Glucose 86 65 - 199 mg/dL [facility] Comment:Diabetes: >=200 mg/d L plus symptoms Blood Urea Nitrogen 19(H) 8 - 18 mg/dL [facility] Creatinine 1.00 0.70 - 1.20 mg/dL [facility] Sodium 138 135 - 145 mmol/L [facility] Potassium 4.0 3.5 - 5.0 mmol/L [facility] Comment: Please note: ??Patients with WBC >100,000 may have falsely elevated Potassium levels. ??For accurate Potassium quantification in these patients send serum separator tube (gold top) for subsequent determinations. ??Contact the Clinical Chemistry Laboratory if there are any questions. Chloride 103 98 - 107 mmol/L [facility] Carbon Dioxide 24 22 - 31 mmol/L [facility] Anion Gap 11 5 - 15 mmol/L [facility] Calcium 9.1 8.5 - 10.5 mg/dL [facility] Protein, Total 7.2 6.1 - 8.0 g/dL [facility] Albumin 4.1 3.2 - 5.2 g/dL [facility] Aspartate Aminotransferase 16 0 - 30 unit/L [facility] Alanine Aminotransferase 14 0 - 30 unit/L [facility] Alkaline Phosphatase 70 35 - 105 unit/L [facility] Bilirubin, Total 0.3 0.2 - 1.3 mg/dL [facility] Est Glomerular Filtration Rate 59(L) >=60 mL/min/1. 73 m?? [facility] Comment: This patient's estimated GFR was [...] In Lab Gregorio Goodman MD CHEMISTRY ORDERABLES Performing Organization Address City/State/[facility] Co de Phone Number [facility] [place] [address] documented in this encounter Visit Diagnoses Diagnosis Aortic valve stenosis, etiology of cardiac valve disease unspecified documented in this encounter Care Teams Senior Chemical Process Engineer Relationship Specialty Start Date End Date Vanita Churchill APRN PCP - General Family Medicine 02/27/19 07/18/24 documented as of this encounter
--- OUTSIDE RECORDS SUMMARY | 2024-08-12 07:36 | XMS_ITS | Encounter Summary ---
Author Organization [facility] Address [facility] [place] [address] Care Team Providers Care Radio Producer Name Role Phone Vanita Churchill Omar SPARROW Primary Care Provider [phone] Encounter Details Date Type Department Care Team (Latest Contact Info) Description 02/09/2023 12:48 PM EDT - 02/09/2023 11:59 PM EDT Hospital Encounter XRay at [address] [place] [phone] Gregorio Goodman MD [facility] [address] [place] [address] Aortic valve stenosis, etiology of cardiac valve [...] PM EDT Office Visit Cardiology at [address] [phone] Rigoberto Diaz MD [facility] [place] [address] Scheduled Procedures Name Priority Associated Diagnoses Date/Ti [...] who have questions please contact the health critical care physician that requested your imaging first. ? Narrative [...] patients who have questions please contactthe health critical care physician that requested your imaging first. Gregorio Goodman MD IMG DX ORDERABLES documented in this encounter Visit Diagnoses Diagnosis Aortic valve stenosis, etiology of cardiac valve disease unspecified documented in this encounter Care Teams Radio Producer Relationship Specialty Start Date End Date Vanita Churchill APRN PCP - General Family Medicine 02/27/19 07/18/24 documented as of this encounter
--- OUTSIDE RECORDS SUMMARY | 2024-08-12 07:36 | XMS_ITS | Encounter Summary ---
[place] [address] Care Team Providers Care Occupational Ther Name Role Phone Vanita Churchill APRN Primary Care Provider [phone] Encounter Details Date Type Department Care Team (Late st Contact Info) Description 12/20/2022 Notes Only Cardiology at [address] [phone] Ralph Dominguez, RN Social History Tobacco Use [...] includes the following: ; HTN; HLD; COPD; CHEMA; GERD; Hypothyroidism; PAD with claudication; Carotid stenosis; Obesity and Depression. Echo 12/12/2022: EF 56%; AUREA 1.0; Gr 47/30; Trace AR/TR; Moderate MR Labs 05/21/2019: WBC 11.5; Hgb 13.3; Hct 39.4; Plts 260; Cr 1.04; eGFR 54 STS: 1.97 Plan: [place] daily [facility] clinic, diagnostics, frailty assessment and cardiac cath. documented in this encounter Plan of Treatment Upcoming Encounters Date Type Department Care Team (Late st Contact Info) Description 02/06/2025 2:40 PM EDT Office Visit Cardiology at [address] [place] [phone] Rigoberto Diaz MD [facility] [place] [address] Scheduled Procedures Name Priority Associated Diagnoses Date/Ti me EGD, UPPER GI ENDOSCOPY (WRV U 2.09) Incontinence of feces, unspecified fecal incontinence type Dysphagia, unspecified type COLONOSCOPY, DIAGNOSTIC (WRV U 3.26) Incontinence of feces, unspecified fecal incontinence type Dysphagia, unspecified type documented as of this encounter Visit Diagnoses Not on filedocumented in this encounter Care Teams Occupational Ther Relationship Specialty Start Date End Date Vanita Churchill APRN PCP - General Family Medicine 02/27/19 07/18/24 documented as of this encounter
--- OUTSIDE RECORDS SUMMARY | 2024-08-12 07:36 | XMS_ITS | Encounter Summary ---
Author Organization [facility] [place] [address] Care Team Providers Care Nurse Chemical Dependency Name Role Phone Vanita Churchill BUHR DRESSER Primary Care Provider [phone] Encounter Details Date Type Department Care Team [...] PM EDT Office Visit Cardiology at [address] [address] Rigoberto Diaz MD [facility] [place] [address] Scheduled Procedures Name Priority Associated Diagnoses Date/Ti me EGD, UPPER GI ENDOSCOPY (WRV U 2.09) Incontinence of feces, unspecified fecal incontinence type Dysphagia, unspecified type COLONOSCOPY, DIAGNOSTIC (WRV U 3.26) Incontinence of feces, unspecified fecal incontinence type Dysphagia, unspecified type documented as of this encounter Visit Diagnoses Not on filedocumented in this encounter Care Teams Nurse Chemical Dependency Relationship Specialty Start Date End Date Vanita Churchill, BUHR DRESSER PCP - General Family Medicine 02/27/19 07/18/24 documented as of this encounter
--- OUTSIDE RECORDS SUMMARY | 2024-08-12 07:36 | XMS_ITS | Encounter Summary ---
[place] [address] Care Team Providers Care Water Plant Pump Operator Name Role Phone Vanita Churchill APRN Primary Care Provider Encounter Details Date Type Department Care Team (Late st Contact Info) Description 02/23/2023 Orders Only Cardiology at [address] [phone] Mike Fraser MD [facility] [address] [place] [address] Severe aortic stenosis Social History Tobacco Use [...] PM EDT Office Visit Cardiology at [address] [phone] Rigoberto Diaz MD [facility] [place] [address] Scheduled Procedures Name Priority Associated Diagnoses Date/Ti me EGD, UPPER GI ENDOSCOPY (WRV U 2.09) Incontinence of feces, unspecified fecal incontinence type Dysphagia, unspecified type COLONOSCOPY, DIAGNOSTIC (WRV U 3.26) Incontinence of feces, unspecified fecal incontinence type Dysphagia, unspecified type documented as of this encounter Visit Diagnoses Diagnosis Severe aortic stenosis Aortic valve disorders documented in this encounter Care Teams Water Plant Pump Operator Relationship Specialty Start Date End Date Vanita Churchill APRN PCP - General Family Medicine 02/27/19 07/18/24 documented as of this encounter
--- OUTSIDE RECORDS SUMMARY | 2024-08-12 07:37 | XMS_ITS | Encounter Summary ---
Author Organization [facility] [place] [address] Care Team Providers Care Dope Heater Name Role Phone Vanita Churchill SHADE CLOTH FINISHER Primary Care Provider [phone] Encounter Details Date Type Department Care Team [...] PM EDT Office Visit Cardiology at [address] [phone] Rigoberto Diaz MD [facility] [place] [address] Scheduled Procedures Name Priority Associated Diagnoses Date/Ti me EGD, UPPER GI ENDOSCOPY (WRV U 2.09) Incontinence of feces, unspecified fecal incontinence type Dysphagia, unspecified type COLONOSCOPY, DIAGNOSTIC (WRV U 3.26) Incontinence of feces, unspecified fecal incontinence type Dysphagia, unspecified type documented as of this encounter Visit Diagnoses Not on filedocumented in this encounter Care Teams Dope Heater Relationship Specialty Start Date End Date Vanita Churchill, SHADE CLOTH FINISHER PCP - General Family Medicine 02/27/19 07/18/24 documented as of this encounter
--- OUTSIDE RECORDS SUMMARY | 2024-08-12 07:37 | XMS_ITS | Encounter Summary ---
[place] [address] Care Team Providers Care President Name Role Phone Kwesidominguez Vanita Dominguez SPARROW Primary Care Provider [phone] Reason for Referral * Diagnostic Test (Routine) - Closed Specialty Diagnoses / Procedures Referred By Emy t Referred To Contact Diagnoses Stenosis of right carotid artery Procedures Carotid Duplex, Bilateral Prerna Denise MD [facility] [address] [facility] [address] [place] [phone] Referral ID Status Reason Start Date Expiration Date V isits Requested Visits Authorized [id number] Closed Specialty Service Requested 07/12/2021 07/12/2022 1 1 * Diagnostic Test (Routine) - Closed Specialty Diagnoses / Procedures Referred By Emy castillo Referred To Contact Diagnoses PAD (peripheral artery disease) Intermittent claudication Procedures MARIYA, legs, multiple levels Prerna Denise MD [facility] [address] [facility] [place] [address] [place] [address] Referral ID Status Reason Start Date Expiration Date V isits Requested Visits Authorized [id number] Closed Specialty Service Requested 07/12/2021 07/12/2022 1 1 Encounter Details Date Type Department Care Team (Late st Contact Info) Description 07/12/2021 Orders [place] [phone] Deborah Villegas, RAHUL Stenosis of right carotid [...] PM EDT Office Visit Cardiology at [address] [phone] Rigoberto Diaz MD [facility] [place] [address] Scheduled Procedures Name Priority Associated Diagnoses Date/Ti me EGD, UPPER GI ENDOSCOPY (WRV U 2.09) Incontinence of feces, unspecified fecal incontinence type Dysphagia, unspecified type COLONOSCOPY, DIAGNOSTIC (WRV U 3.26) Incontinence of feces, unspecified fecal incontinence type Dysphagia, unspecified type documented as of this encounter Results * Carotid Duplex, Bilateral (07/15/2022 9:29 AM EDT) VB Text Report Department: Vascular Surgery Lab Patient: [id number] (LINDSEY MEHTA) CPT: 62802 Referring Physician: PRERNA DENISE ?? Phone: Indications: [...] Text Report Department: Vascular Surgery Lab Patient: [id number] (MEHTA, LINDSEY) CPT: [id number] Referring Physician: PERRNA DENISE ?? Phone: Indications: 71 year old [...] AM EDT Prerna Denise MD VASCULAR ORDERA [facility] documented in this encounter Visit Diagnoses Diagnosis Stenosis of right carotid artery Occlusion and stenosis of carotid artery without mention of cerebral infarction PAD (peripheral artery disease) Peripheral vascular disease, unspecified Intermittent claudication Peripheral vascular disease, unspecified documented in this encounter Care Teams President Relationship Specialty Start Date End Date Vanita Churchill, CAD DRAFTSMAN PCP - General Family Medicine 02/27/19 07/18/24 documented as of this encounter
--- OUTSIDE RECORDS SUMMARY | 2024-08-12 07:37 | XMS_ITS | Encounter Summary ---
Author Organization [facility] [place] [address] Care Team Providers Care Integrated Circuit Fabricator Name Role Phone Vanita Churchill KYARA Primary Care Provider [phone] Encounter Details Date Type Department Care Team (Late st Contact Info) Description 07/16/2019 Orders Only [place] [address] Deborah Villegas, REGIONAL OPERATIONS MANAGER Bilateral carotid artery stenosis Social History Tobacco [...] PM EDT Office Visit Cardiology at [address] [phone] Rigoberto Diaz MD [facility] [address] [place] [address] Scheduled Procedures Name Priority Associated Diagnoses Date/Ti me EGD, UPPER GI ENDOSCOPY (WRV U 2.09) Incontinence of feces, unspecified fecal incontinence type Dysphagia, unspecified type COLONOSCOPY, DIAGNOSTIC (WRV U 3.26) Incontinence of feces, unspecified fecal incontinence type Dysphagia, unspecified type documented as of this encounter Results * Carotid Duplex, Bilateral (07/02/2020 10:34 AM EDT) VB Text Report Department: Vascular Surgery Lab Patient: [id number] (LINDSEY FIGUEREDO) CPT: 82195 ICD10: I65.23 Referring Physician: DOROTA MONTAÑO MD [...] infarction documented in this encounter Care Teams Integrated Circuit Fabricator Relationship Specialty Start Date End Date Vanita Churchill, WATCH MANUFACTURING SUPERVISOR PCP - General Family Medicine 02/27/19 07/18/24 documented as of this encounter
--- OUTSIDE RECORDS SUMMARY | 2024-08-12 07:37 | XMS_ITS | Encounter Summary ---
Author Organization [facility] Address [facility] [place] [address] Care Team Providers Care Packing Line Operator Name Role Phone Vanita Churchill Omar SPARROW Primary Care Provider [phone] Encounter Details Date Type Department Care Team (Latest Contact Info) Description 05/23/2019 4:40 PM EDT - 05/23/2019 11:59 PM EDT Hospital Encounter XRay at [address] [place] [address] Jake Montaño MD [facility] [place] [address] Stenosis of carotid artery, unspecified laterality Discharge [...] Indications: Hypothyroidism 10/11/2022 fluticasone (FLONASE) 50 mcg/actuation [place], SuspensionIndications:S easonal allergic rhinitis 2 sprays by Each Nare route daily as needed for Rhinitis. 16 g 3 05/03/2016 03/19/2021 POLYETHYLENE GLYCOL 3350 (MIRALAX ORAL) Take by mouth as needed. 02/05/2024 documented as of this encounter Plan of Treatment Upcoming Encounters Date Type Department Care Team (Late st Contact Info) Description 02/06/2025 2:40 PM EDT Office Visit Cardiology at [address] [place] [address] Rigoberto Diaz MD [facility] [place] [address] Scheduled Procedures Name Priority Associated Diagnoses Date/Ti [...] laterality documented in this encounter Care Teams Packing Line Operator Relationship Specialty Start Date End Date Vanita Churchill APRN PCP - General Family Medicine 02/27/19 07/18/24 documented as of this encounter
--- OUTSIDE RECORDS SUMMARY | 2024-08-12 07:37 | XMS_ITS | Encounter Summary ---
Author Organization [facility] [place] [address] Care Team Providers Care Dog Sitter Name Role Phone Vanita Churchill Omar SPARROW Primary Care Provider [phone] Encounter Details Date Type Department Care Team (Late st Contact Info) Description 09/01/2021 Telephone Sleep [facility] at [facility] [address] [place] [phone] Ida Ibrahim Social History Tobacco Use Types [...] 2:40 PM EDT Office Visit Cardiology at [address] [place] [phone] Rigoberto Diaz MD [facility] [place] [address] Scheduled Procedures Name Priority Associated Diagnoses Date/Ti me EGD, UPPER GI ENDOSCOPY (WRV U 2.09) Incontinence of feces, unspecified fecal incontinence type Dysphagia, unspecified type COLONOSCOPY, DIAGNOSTIC (WRV U 3.26) Incontinence of feces, unspecified fecal incontinence type Dysphagia, unspecified type documented as of this encounter Visit Diagnoses Not on filedocumented in this encounter Care Teams Dog Sitter Relationship Specialty Start Date End Date Vanita Churchill, KYARA PCP - General Family Medicine 02/27/19 07/18/24 documented as of this encounter
--- OUTSIDE RECORDS SUMMARY | 2024-08-12 07:37 | XMS_ITS | Encounter Summary ---
Author Organization [facility] [place] [address] Care Team Providers Care Retirement Administrator Name Role Phone Vanita Churchill APRN Primary Care Provider [phone] Reason for Referral * Consultation (Routine) - Closed Specialty Diagnoses / Procedures Referred By Emy castillo Referred To Contact Cardiology Diagnoses Aortic valve stenosis, etiology of cardiac valve disease unspecified Dyspnea on exertion STRUCTURAL CARD WORSENING MOD-SEVERE AORTIC STENOSIS, SOBOE. NEEDS VALVE REPLACEMENT Vanita Churchill APRN [address] [place] [address] [facility] [address] [place] [phone] Referral ID Status Reason Start Date Expiration Date V isits Requested Visits Authorized [id number] Closed Consult, Test & Treat 12/14/2022 12/14/2023 1 1 Encounter Details Date Type Department Care Team (Latest Contact Info) Description 12/14/2022 Transcribe Orders eDH Incoming Referrals [phone] Vanita Churchill APRN [address] [place] [address] Aortic valve stenosis, etiology of cardiac valve [...] PM EDT Office Visit Cardiology at [address] [phone] Rigoberto Diaz MD [facility] [place] [address] Scheduled Procedures Name Priority Associated Diagnoses Date/Ti [...] abnormality documented in this encounter Care Teams Retirement Administrator Relationship Specialty Start Date End Date Vanita Churchill APRN PCP - General Family Medicine 02/27/19 07/18/24 documented as of this encounter
--- OUTSIDE RECORDS SUMMARY | 2024-08-12 07:37 | XMS_ITS | Encounter Summary ---
Author Organization [place] [address] Care Team Providers Care Pre Sales Systems Engineer Name Role Phone Vanita Churchill APRN Primary Care Provider [phone] Encounter Details Date Type Department Care Team (Late st Contact Info) Description 06/13/2019 Orders [place] [phone] Lubna Johnston MD [facility] [place] [address] Stenosis of right carotid artery Social History [...] PM EDT Office Visit Cardiology at [address] [phone] Rigoberto Carvalho MD [facility] [place] [address] Scheduled Procedures Name Priority Associated Diagnoses Date/Ti [...] infarction documented in this encounter Care Teams Pre Sales Systems Engineer Relationship Specialty Start Date End Date Vanita Churchill, KYARA PCP - General Family Medicine 02/27/19 07/18/24 documented as of this encounter
--- OUTSIDE RECORDS SUMMARY | 2024-08-12 07:37 | XMS_ITS | Encounter Summary ---
[place] [address] Care Team Providers Care Plc Engineer Name Role Phone Vanita Churchill KYARA Primary Care Provider [phone] Encounter Details Date Type Department Care Team (Late st Contact Info) Description 07/15/2022 9:30 AM EDT Tech Visit [place] [address] [place] Stenosis of right carotid [...] PM EDT Office Visit Cardiology at [address] [phone] Rigoberto Diaz MD [facility] [place] [address] Scheduled Procedures Name Priority Associated Diagnoses Date/Ti [...] Text Report Department: Vascular Surgery Lab Patient: [id number] (DELEON, LINDSEY) CPT: [id number] Referring Physician: MEGHNA HARMON ?? Phone: Indications: [...] 9:29 AM EDT Meghna Harmon MD VASCULAR [facility] Organization Address City/State/[facility] Co ne Phone Number [email or web address] * Carotid Duplex, Bilateral (07/15/2022 9:29 AM EDT) VB Text Report Department: Vascular Surgery Lab Patient: [id number] (LINDSEY DELEON) CPT: [id number] Referring Physician: MEGHNA HARMON ?? Phone: Indications: [...] unspecified documented in this encounter Care Teams Plc Engineer Relationship Specialty Start Date End Date Vanita Churchill, WHEEL INSPECTOR PCP - General Family Medicine 02/27/19 07/18/24 documented as of this encounter
--- OUTSIDE RECORDS SUMMARY | 2024-08-12 07:37 | XMS_ITS | Encounter Summary ---
[place] [address] Care Team Providers Care Patch Finisher Name Role Phone Vanita Churchill Omar SPARROW Primary Care Provider [phone] Encounter Details Date Type Department Care Team (Late st Contact Info) Description 08/30/2022 Telephone [place] [address] Erika Green Social History Tobacco [...] calls can be handled by: Any [employer] Industrial Safety And Health Technician documented in this encounter Plan of Treatment Upcoming Encounters Date Type Department Care Team (Late st Contact Info) Description 02/06/2025 2:40 PM EDT Office Visit Cardiology at [address] [place] [address] Rigoberto Diaz MD [facility] [place] [address] Scheduled Procedures Name Priority Associated Diagnoses Date/Ti me EGD, UPPER GI ENDOSCOPY (WRV U 2.09) Incontinence of feces, unspecified fecal incontinence type Dysphagia, unspecified type COLONOSCOPY, DIAGNOSTIC (WRV U 3.26) Incontinence of feces, unspecified fecal incontinence type Dysphagia, unspecified type documented as of this encounter Visit Diagnoses Not on filedocumented in this encounter Care Teams Patch Finisher Relationship Specialty Start Date End Date Vanita Churchill APRN PCP - General Family Medicine 02/27/19 07/18/24 documented as of this encounter
--- OUTSIDE RECORDS SUMMARY | 2024-08-12 07:37 | XMS_ITS | Encounter Summary ---
Author Organization [facility] [place] [address] Care Team Providers Care Broom Machine Operator Name Role Phone Vanita Churchill WET MACHINE TENDER Primary Care Provider [phone] Encounter Details Date Type Department Care Team (Late st Contact Info) Description 06/12/2019 Telephone [place] [phone] Lubna Johnston MD [facility] [place] [address] Social History Tobacco Use Types Packs/Day Years [...] PM EDT Office Visit Cardiology at [address] [address] Rigoberto Diaz MD [facility] [place] [address] Scheduled Procedures Name Priority Associated Diagnoses Date/Ti me EGD, UPPER GI ENDOSCOPY (WRV U 2.09) Incontinence of feces, unspecified fecal incontinence type Dysphagia, unspecified type COLONOSCOPY, DIAGNOSTIC (WRV U 3.26) Incontinence of feces, unspecified fecal incontinence type Dysphagia, unspecified type documented as of this encounter Visit Diagnoses Not on filedocumented in this encounter Care Teams Broom Machine Operator Relationship Specialty Start Date End Date Vanita Churchill APRN PCP - General Family Medicine 02/27/19 07/18/24 documented as of this encounter
--- OUTSIDE RECORDS SUMMARY | 2024-08-12 07:37 | XMS_ITS | Encounter Summary ---
[place] [address] Care Team Providers Care Case Coordinator Name Role Phone Kerline Vanita Nelson APRN Primary Care Provider Encounter Details Date Type Department Care Team (Late st Contact Info) Description 03/19/2020 9:30 AM EDT TH Visit (TeleHealth) Sleep Center at [facility] [address] [place] [address] Alley Johnson APRN [facility] DR [place] [address] CHEMA treated with BiPAP Social History Tobacco [...] Patient is calling today from home in [place], [place] Visit is by phone Patient provided verbal consent prior to initiation of this telehealth encounter and expressed understanding that the telehealth visit may be billed similar to a clinic visit Sleep Study History: 02/07/2008 at [facility], from Dr. Robbins's note: AHI: 28/hr, supine [...] unclear significance. 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 to phosphoric acid supervisor, thinks it was medication; cardiology found [...] but she opened her mouth anyway HCC: [facility] to get machine (that ofc is appt only) [place] Snoring: no Nocturnal gasping: no Dry Mouth: Sometimes, adjusts humidity; uses Biotene rinse, hasn't tried room humidifier--didn't use this Winter, didn't need Mouth Breathing: Yes, has FFM now Patient wears top dentures to sleep Daytime Symptoms: Patient-reported last 4 scores: [facility] 02/06/2017 12/08/2017 08/02/2018 04/05/2019 [place] [facility] 1 4 3 3 Insomnia Severity Index 2 (No clinically significant insomnia) Incomplete 4 (No clinically significant insomnia) 4 (No clinically significant insomnia) VR12 - Physical Component Summary 43.05 - - - VR12 - Mental Component Summary 54.56 - - - No [place] done today Nocturnal sleep quality improved: overall [...] rested and feeling well. Continues using the Aplica View small, didn't like [employer] FFM demo tried from last visit. Supplies received and replaced regularly. Plan/all recommendations below. Time spent via phone call today in discussion of recommendations below and with time spent pre/postcall associated with chart activities: 25 minutes Patient is calling today from home in [place], [place] Visit is by phone Patient provided [...] PM EDT Office Visit Cardiology at [address] [address] Rigoberto Diaz MD [facility] [place] [address] Scheduled Procedures Name Priority Associated Diagnoses Date/Ti me EGD, UPPER GI ENDOSCOPY (WRV U 2.09) Incontinence of feces, unspecified fecal incontinence type Dysphagia, unspecified type COLONOSCOPY, DIAGNOSTIC (WRV U 3.26) Incontinence of feces, unspecified fecal incontinence type Dysphagia, unspecified type documented as of this encounter Visit Diagnoses Diagnosis CHEMA treated with BiPAP documented in this encounter Care Teams Case Coordinator Relationship Specialty Start Date End Date Vanita Churchill APRN PCP - General Family Medicine 02/27/19 07/18/24 documented as of this encounter
--- OUTSIDE RECORDS SUMMARY | 2024-08-12 07:37 | XMS_ITS | Encounter Summary ---
[place] [address] Care Team Providers Care Turfgrass Technician Name Role Phone Kerline Vanita Nelson CLOTH GRADER Primary Care Provider [phone] Encounter Details Date Type Department Care Team (Late st Contact Info) Description 03/22/2021 9:00 AM EDT TH Visit (TeleHealth) Sleep Center at [facility] [address] [place] [address] Alley Johnson APRN [facility] [place] [address] CHEMA treated with BiPAP Social History Tobacco [...] BPAP therapy. HPI continues below. Patient in [place], [place] Visit is by video Patient provided verbal consent prior to initiation of this telehealth encounter and expressed understanding that the telehealth visit may be billed similar to a clinic visit Sleep Study History: 02/07/2008 at [facility], from Dr. Robbins's note: AHI: 28/hr, [...] unclear significance. 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 to caretaker grounds, thinks it was medication; cardiology found lack [...] quickly Daytime Symptoms: Patient-reported last 4 scores: [facility] 12/08/2017 08/02/2018 04/05/2019 03/22/2021 [place] [facility] 4 3 3 4 Insomnia Severity [...] 1.79) performed by Jake Montaño MD at [facility] MAIN OR ??? PRO COLONOSCOPY, DIAGNOSTIC 12/06/2012 COLONOSCOPY, DIAGNOSTIC performed by Mik Dumont MD at [facility] ENDOSCOPY ??? PRO LAPAROSCOPY, SURG, REPAIR PARAESOPHAGEAL HERNIA, W/O IMPLANTATION OF MESH 02/18/2013 LAPAROSCOPIC PARAESOPHAGEAL HERNIA REPAIR W/FUNDOPLASTY, W/O MESH performed by Moncho Bowesr MD at [facility] MAIN OR ??? PRO PLACE CATH FIRST ORDER ART, ABD/PELV 08/15/2017 CATHETER PLACEMENT, SELECTIVE FIRST ORDER IN ARTERIAL SYSTEM, EACH FIRST ORDER ABDOMINAL, PELVIC, OR LOWER EXTREMITY ARTERY BRANCH,WITHIN A VASCULAR FAMILY (WRVU 4.9) performed by Jake Montaño MD at [facility] MAIN OR ? ? PRO REVSC OPEN/PERCUTANEOUS ILIAC ART W STNT PLMT&ANGIO PATRICE VSL UNILAT Bilateral 08/15/2017 REVSC OPN\PRQ ILIAC ART W\STNT PLMT & ANGIOP SAME VSL (WRVU 10) performed by Jake Montaño MD at [facility] MAIN OR ??? PRO THROMBOENDARTECTMY ILIOFEMORAL Left 08/15/2017 @ENDARTERECTOMY, ILIOFEMORAL W OR W/O PATCH GRAFT (WRVU 19.86) performed by Jake Montaño MD at [facility] MAIN OR ??? PRO THROMBOENDARTECTMY NECK, NECK INCIS Right 06/10/2019 @ENDARTERECTOMY, CAROTID, VERTEBRAL,SUBCLAVIAN W\WO PATCH GRAFT (WRVU 21.16) performed by Jake Montaño MD at [facility] MAIN OR ??? PRO UPPER GI ENDOSCOPY, BIOPSY 12/06/2012 EGD WITH BIOPSY performed by Mik Dumont MD at [facility] ENDOSCOPY ??? TUBAL LIGATION Past Medical [...] mouth daily. ??? [facility] ??? calcium-vitamin D 500 mg(1,250mg) -200 [...] pressures and oxygenation. Supplies received regularly from [facility] but takes awhile to get them. Had a [employer] question, suggested she call [facility]. Plan/all recommendations below. Total time spent via telehealth with patient including charting, notes review, data download analysis, counseling and recommendations: 20 minutes Recommendations: --Order for BPAP 25/18cw, order to [facility] --Call DME company ([employer]) for questions on machine, supply replacements, billing [...] PM EDT Office Visit Cardiology at [address] [place] [address] Rigoberto Diaz MD [facility] [place] [address] Scheduled Procedures Name Priority Associated Diagnoses Date/Ti me EGD, UPPER GI ENDOSCOPY (WRV U 2.09) Incontinence of feces, unspecified fecal incontinence type Dysphagia, unspecified type COLONOSCOPY, DIAGNOSTIC (WRV U 3.26) Incontinence of feces, unspecified fecal incontinence type Dysphagia, unspecified type documented as of this encounter Visit Diagnoses Diagnosis CHEMA treated with BiPAP documented in this encounter Care Teams Turfgrass Technician Relationship Specialty Start Date End Date Vanita Churchill APRN PCP - General Family Medicine 02/27/19 07/18/24 documented as of this encounter
--- OUTSIDE RECORDS SUMMARY | 2024-08-12 07:37 | XMS_ITS | Encounter Summary ---
[place] [address] Care Team Providers Care Floorman Name Role Phone Kwesidominguez Vanita Dominguez SPARROW Primary Care Provider [phone] Reason for Referral * Diagnostic Test (Routine) - Closed Specialty Diagnoses / Procedures Referred By Emy acstillo Referred To Contact Diagnoses Stenosis of right carotid artery Procedures Carotid Duplex, Bilateral Niurka Marino APRN [facility] [place] [address] [facility] Vascular Lab [address] [place] [id number] Referral ID Status Reason Start Date Expiration Date V isits Requested Visits Authorized [id number] Closed Specialty Service Requested 07/15/2022 07/15/2023 1 1 * Diagnostic Test (Routine) - Closed Specialty Diagnoses / Procedures Referred By Emy castillo Referred To Contact Diagnoses PAD (peripheral artery disease) Procedures MARIYA, legs, multiple levels Niurka Marino APRN [facility] [place] [address] [facility] Vascular Lab [address] [place] [address] [place] [address] Referral ID Status Reason Start Date Expiration Date V isits Requested Visits Authorized [id number] Closed Specialty Service Requested 07/15/2022 07/15/2023 1 1 Encounter Details Date Type Department Care Team (Late st Contact Info) Description 07/15/2022 11:00 AM EDT Office Visit [place] [phone] Niurka Marino APRN [facility] [place] [address] PAD (peripheral artery disease); Stenosis of right [...] PM EDT Office Visit Cardiology at [address] [place] [address] Rigoberto Diaz MD [facility] [address] [place] [address] Scheduled Procedures Name Priority Associated Diagnoses Date/Ti me EGD, UPPER GI ENDOSCOPY (WRV U 2.09) Incontinence of feces, unspecified fecal incontinence type Dysphagia, unspecified type COLONOSCOPY, DIAGNOSTIC (WRV U 3.26) Incontinence of feces, unspecified fecal incontinence type Dysphagia, unspecified type documented as of this encounter Results * Carotid Duplex, Bilateral (07/17/2023 7:58 AM EDT) VB Text Report Department: Vascular Surgery Lab Patient: [id number] (LINDSEY MEHTA) CPT: 58935 Referring Physician: NIURKA MARINO ?? Phone: Indications: [...] Text Report Department: Vascular Surgery Lab Patient: [id number] (BEA LINDSEY) CPT: 07846 Referring Physician: NIURKA MARINO ?? Phone: Indications: [...] ? Posterior Tibial (Ankle) Artery ??87 ?0.55 ??Caldwell-Biphasic ?? Interpretation: RIGHT: Mild lower extremity arterial [...] infarction documented in this encounter Care Teams Floorman Relationship Specialty Start Date End Date Vanita Churchill APRN PCP - General Family Medicine 02/27/19 07/18/24 documented as of this encounter
--- OUTSIDE RECORDS SUMMARY | 2024-08-12 07:37 | XMS_ITS | Encounter Summary ---
[place] [address] Care Team Providers Care Case Mgr Name Role Phone KwesiVanita mix Omar SPARROW Primary Care Provider [phone] Encounter Details Date Type Department Care Team (Latest Contact Info) Description 07/06/2020 10:40 AM EDT TH Visit (TeleHealth) [place] [address] Jake Montaño MD [facility] [place] [address] Stenosis of right carotid artery; PVD (peripheral [...] any open wounds on either foot. Labs: Contract Sheltered Workshop Supervisor (05/21/19): 1.04 Imaging studies: I have personally [...] PM EDT Office Visit Cardiology at [address] [address] Rigoberto Diaz MD [facility] [place] [address] Scheduled Procedures Name Priority Associated Diagnoses Date/Ti [...] unspecified documented in this encounter Care Teams Case Mgr Relationship Specialty Start Date End Date Vanita Churchill APRN PCP - General Family Medicine 02/27/19 07/18/24 documented as of this encounter
--- OUTSIDE RECORDS SUMMARY | 2024-08-12 07:37 | XMS_ITS | Encounter Summary ---
[place] [address] Care Team Providers Care Loan Documents Closer Name Role Phone Vanita Churchill Omar SPARROW Primary Care Provider [phone] Reason for Referral * Diagnostic Test (Routine) - Closed Specialty Diagnoses / Procedures [facility] Referred To Contact Radiology Diagnoses Aortic valve stenosis, etiology of cardiac valve disease unspecified Procedures CT Angiogram Abdomen & Pelvis w Contrast (Generic) Gregorio Goodman MD [facility] [address] [place] [place] [address] [facility] [place] [address] Referral ID Status Reason Start Date Expiration Date V isits Requested Visits Authorized [id number] Closed Specialty Service Requested 12/21/2022 06/19/2024 1 1 * Diagnostic Test (Routine) - Closed Specialty Diagnoses / Procedures Referred By Emy castillo Referred To Contact Radiology Diagnoses Aortic valve stenosis, etiology of cardiac valve disease unspecified Procedures CT Cardiac for Morphology & Function Gregorio Goodman MD [facility] [address] [place] [address] [facility] [place] [address] Referral ID Status Reason Start Date Expiration Date V isits Requested Visits Authorized [id number] Closed Specialty Service Requested 12/21/2022 06/19/2024 1 1 Encounter Details Date Type Department Care Team (Late st Contact Info) Description 12/20/2022 Orders Only Cardiology at [address] [phone] Gregorio Goodman MD [facility] [address] [place] [address] Aortic valve stenosis, etiology of cardiac valve [...] PM EDT Office Visit Cardiology at [address] [phone] Rigoberto Diaz MD [facility] [address] [place] [address] Scheduled Procedures Name Priority Associated Diagnoses Date/Ti [...] (Bezet) 475 ms MUSE SYSTEM Calculated P [place] 63 degrees MUSE SYSTEM Calculated R [place] -64 degrees MUSE SYSTEM Calculated T [place] 26 degrees MUSE SYSTEM INTERPRETATION Normal sinus [...] have questions please contact the health child caregiver that requested your imaging first. ? Narrative [...] who have questions please contactthe health child caregiver that requested your imaging first. Gregorio Goodman [...] have questions please contact the health child caregiver that requested your imaging first. ? Narrative [...] who have questions please contactthe health child caregiver that requested your imaging first. Gregorio Goodman [...] have questions please contact the health child caregiver that requested your imaging first. ? Narrative [...] Valsalva, set equidistant: ?? Anterior oblique plane: KENYAN Anterior oblique angulation: 5 Craniocaudal plane: CAU Craniocaudal angulation: 20 [id number]-[id number]-[id number] height: Imaging phase: 95% Right: 15.5 mm [...] of Valsalva, set equidistant: Anterior oblique plane: KENYAN Anterior oblique angulation: 5 Craniocaudal plane: CAU Craniocaudal angulation: 20 Fttpsju-eu-[id number] height: Imaging phase: 95% Right: 15.5 mm [...] who have questions please contactthe health child caregiver that requested your imaging first. Gregorio Goodman MD IMG CT ORDERABLES * (ABNORMAL) Comprehensive metabolic panel (non-fasting) (02/09/2023 10:09 AM EDT) Glucose 86 65 - 199 mg/dL [facility] Comment:Diabetes: >=200 mg/d L plus symptoms Blood Urea Nitrogen 19(H) 8 - 18 mg/dL [facility] Creatinine 1.00 0.70 - 1.20 mg/dL [facility] Sodium 138 135 - 145 mmol/L [facility] Potassium 4.0 3.5 - 5.0 mmol/L [facility] Comment: Please note: ??Patients with WBC >100,000 may have falsely elevated Potassium levels. ??For accurate Potassium quantification in these patients send serum separator tube (gold top) for subsequent determinations. ??Contact the Clinical Chemistry Laboratory if there are any questions. Chloride 103 98 - 107 mmol/L [facility] Carbon Dioxide 24 22 - 31 mmol/L [facility] Anion Gap 11 5 - 15 mmol/L [facility] Calcium 9.1 8.5 - 10.5 mg/dL [facility] Protein, Total 7.2 6.1 - 8.0 g/dL [facility] Albumin 4.1 3.2 - 5.2 g/dL [facility] Aspartate Aminotransferase 16 0 - 30 unit/L [facility] Alanine Aminotransferase 14 0 - 30 unit/L [facility] Alkaline Phosphatase 70 35 - 105 unit/L [facility] Bilirubin, Total 0.3 0.2 - 1.3 mg/dL [facility] Est Glomerular Filtration Rate 59(L) >=60 mL/min/1. 73 m?? [facility] Comment: This patient's estimated GFR [...] Goodman MD CHEMISTRY ORDERABLES Performing Organization Address City/State/[facility] Co de Phone Number [facility] [place] [address] documented in this encounter Visit Diagnoses Diagnosis Aortic valve stenosis, etiology of cardiac valve disease unspecified Aortic valve stenosis, etiology of cardiac valve disease unspecified Aortic valve stenosis, etiology of cardiac valve disease unspecified documented in this encounter Care Teams Loan Documents Closer Relationship Specialty Start Date End Date Vanita Churchill, WARDROBE CONSULTANT PCP - General Family Medicine 02/27/19 07/18/24 documented as of this encounter
--- OUTSIDE RECORDS SUMMARY | 2024-08-12 07:37 | XMS_ITS | Encounter Summary ---
Author Organization [facility] [place] [address] Care Team Providers Care Conveyor Maintenance Mechanic Name Role Phone Vanita Churchill SLIVER FORMER Primary Care Provider [phone] Encounter Details Date Type Department Care Team (Late st Contact Info) Description 07/15/2019 2:00 PM EDT Tech [place] [address] [place], [place] Bilateral carotid artery stenosis Social History [...] PM EDT Office Visit Cardiology at [address] [phone] Rigoberto Diaz MD [facility] [address] [place] [address] Scheduled Procedures Name Priority Associated Diagnoses Date/Ti [...] Text Report Department: Vascular Surgery Lab Patient: [id number] (LINDSEY FIGUEREDO) CPT: 60368 ICD10: I65.23 Referring Physician: DOROTA MONTAÑO MD [...] infarction documented in this encounter Care Teams Conveyor Maintenance Mechanic Relationship Specialty Start Date End Date Vanita Churchill APRN PCP - General Family Medicine 02/27/19 07/18/24 documented as of this encounter
--- OUTSIDE RECORDS SUMMARY | 2024-08-12 07:37 | XMS_ITS | Encounter Summary ---
[place] [address] Care Team Providers Care Ms Sql Developer Name Role Phone Vanita Churchill KYARA Primary Care Provider [phone] Encounter Details Date Type Department Care Team (Late st Contact Info) Description 07/21/2020 Orders Only [place] [phone] Delmis Camargo CMA Stenosis of right carotid [...] 2:40 PM EDT Office Visit Cardiology at [address] [place] [phone] Rigoberto Diaz MD [facility] [address] [place] [address] Scheduled Procedures Name Priority Associated [...] Text Report Department: Vascular Surgery Lab Patient: [id number] (LINDSEY FIGUEREDO) CPT: 58872 ICD10: I73.9;I65.23;I65.2 1 Referring Physician: DOROTA MONTAÑO [...] Text Report Department: Vascular Surgery Lab Patient: [id number] (FIGUEREDOLINDSEY MURILLO) CPT: 57349 ICD10: I73.9;I70.213;I6 5.21 Referring Physician: DOROTA MONTAÑO [...] unspecified documented in this encounter Care Teams Ms Sql Developer Relationship Specialty Start Date End Date Vanita Churchill, BAR FINISH OPERATOR PCP - General Family Medicine 02/27/19 07/18/24 documented as of this encounter
--- OUTSIDE RECORDS SUMMARY | 2024-08-12 07:37 | XMS_ITS | Encounter Summary ---
Author Organization [facility] [place] [address] Care Team Providers Care Security Manager Name Role Phone Vanita Churchill MANAGER ORANGE Primary Care Provider [phone] Encounter Details Date Type Department Care Team (Late st Contact Info) Description 06/13/2019 11:00 AM EDT Tech [place] [address] [place], [place] Stenosis of right carotid [...] 2:40 PM EDT Office Visit Cardiology at [address] [place] [address] Rigoberot Diaz MD [facility] [address] [place] [address] Scheduled Procedures Name Priority Associated Diagnoses Date/Ti [...] infarction documented in this encounter Care Teams Security Manager Relationship Specialty Start Date End Date Vanita Churchill, MANAGER ORANGE PCP - General Family Medicine 02/27/19 07/18/24 documented as of this encounter
--- OUTSIDE RECORDS SUMMARY | 2024-08-12 07:37 | XMS_ITS | Encounter Summary ---
[place] [address] Care Team Providers Care Milk Pasteurizer Name Role Phone Kerline Vanita Nelson APRN Primary Care Provider [phone] Encounter Details Date Type Department Care Team (Late st Contact Info) Description 10/11/2022 11:30 AM EST Office Visit Sleep Center at [facility] [address] [place] [address] Alley Johnson APRN [facility] DR [place] [address] CHEMA treated with BiPAP (Primary Dx); Difficulty [...] cw --Don't use SoClean or another CPAP commercial cleaner with any BPAP machine --Order to [...] or bothersome mask leak: for information, call [phone] or go to [email or web address] --If dry mouth: 1) adjust humidity up [...] supply replacement intervals, sent to patient through [facility] portal previously--review as needed --Driving safety tips for everyone: do not drive if drowsy; if drowsy while driving, dross puller to nap or rest --Follow-up: 1 [...] continues below. Sleep Study History: 02/07/2008 at [facility], from Dr. Robbins's note: AHI: 28/hr, supine [...] unclear significance. 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 to speech teacher, thinks it was medication; cardiology found lack [...] back to Saranya View, small; Didn't like EwirelessWear FFM, small frame, small cushion; demo provided to her in 2019 visit Didn't like the Airtouch F20, small as irritating nasal bridge,previous mask was Mirage Quattro butit left a cortney on her nose Chin strap: No, chin strap was tried in the past but she opened her mouth anyway HCC: [facility] to get machine (that ofc is appt only) [place] Snoring on BPAP: [...] quickly Daytime Symptoms: Patient-reported last 4 scores: [facility] 12/08/2017 08/02/2018 04/05/2019 03/22/2021 [facility] 4 (Low Risk) 3 (Low Risk) [...] by mouth daily. ??? UNABLE TO FIND [facility] ??? calcium-vitamin D 500 mg(1,250mg) -200 unit [...] pressures and oxygenation. Supplies received regularly from [facility] but takes awhile to get them. Plan/recommendations below. Total time spent via telehealth with patient including charting, notes and history review, mask fitcheck, data download analysis, counseling and recommendations: 30 minutes Recommendations: --Continue BPAP 25/18cw --Don't use SoClean or another CPAP commercial cleaner with any CPAP or BPAP machine --Order to [facility] for in-person mask fitting; the F30 may [...] or bothersome mask leak: for information, call [phone] or go to www.[employer] --If dry mouth: 1) adjust humidity up [...] supply replacement intervals, sent to patient through [facility] portal previously--review as needed --Driving safety tips for everyone: do not drive if drowsy; if drowsy while driving, dross puller to nap or rest --Follow-up: 1 year with [place]; contact us or make an appointment sooner, as needed The patient indicates understanding of these issues and agrees with the plan. Alley Johnson APRN documented in this encounter Plan of Treatment Upcoming Encounters Date Type Department Care Team (Late st Contact Info) Description 02/06/2025 2:40 PM EDT Office Visit Cardiology at [address] [place] [address] Rigoberto Diaz MD [facility] [place] [address] Scheduled Procedures Name Priority Associated Diagnoses Date/Ti [...] machine documented in this encounter Care Teams Milk Pasteurizer Relationship Specialty Start Date End Date Vanita Churchill APRN PCP - General Family Medicine 02/27/19 07/18/24 documented as of this encounter
--- OUTSIDE RECORDS SUMMARY | 2024-08-12 07:37 | XMS_ITS | Encounter Summary ---
[place] [address] Care Team Providers Care Associate Professor Of Geology Name Role Phone KwesiVanita mix Omar SPARROW Primary Care Provider [phone] Encounter Details Date Type Department Care Team (Late st Contact Info) Description 07/03/2020 Telephone [place] [address] Emerita Estes Social History Tobacco Use Types [...] PM EDT Office Visit Cardiology at [address] [place] [address] Rigoberto Diaz MD [facility] [place] [address] Scheduled Procedures Name Priority Associated Diagnoses Date/Ti me EGD, UPPER GI ENDOSCOPY (WRV U 2.09) Incontinence of feces, unspecified fecal incontinence type Dysphagia, unspecified type COLONOSCOPY, DIAGNOSTIC (WRV U 3.26) Incontinence of feces, unspecified fecal incontinence type Dysphagia, unspecified type documented as of this encounter Visit Diagnoses Not on filedocumented in this encounter Care Teams Associate Professor Of Geology Relationship Specialty Start Date End Date Vanita Churchill, KYARA PCP - General Family Medicine 02/27/19 07/18/24 documented as of this encounter
--- OUTSIDE RECORDS SUMMARY | 2024-08-12 07:37 | XMS_ITS | Encounter Summary ---
[place] [address] Care Team Providers Care Fractionating Still Operator Name Role Phone Vanita Churchill SENIOR INFORMATION DEVELOPER Primary Care Provider [phone] Encounter Details Date Type Department Care Team (Late st Contact Info) Description 07/12/2021 12:30 PM EDT Tech [place] [address] [place], [place] Stenosis of right carotid artery; PVD [...] PM EDT Office Visit Cardiology at [address] [address] Rigoberto Diaz MD [facility] [place] [address] Scheduled Procedures Name Priority Associated Diagnoses Date/Ti [...] Text Report Department: Vascular Surgery Lab Patient: [id number] ([facility]) CPT: 70767 ICD10: I73.9;I70.213;I6 5.21 Referring Physician: DOROTA MONTAÑO [...] Text Report Department: Vascular Surgery Lab Patient: [id number] (LINDSEY DELEON) CPT: 71140 ICD10: I73.9;I65.23;I65.2 1 Referring Physician: DOROTA MONTAÑO [...] unspecified documented in this encounter Care Teams Fractionating Still Operator Relationship Specialty Start Date End Date Vanita Churchill, KYARA PCP - General Family Medicine 02/27/19 07/18/24 documented as of this encounter
--- OUTSIDE RECORDS SUMMARY | 2024-08-12 07:37 | XMS_ITS | Encounter Summary ---
[place] [address] Care Team Providers Care Piece Work Inspector Name Role Phone KwesiVanita mix Omar SPARROW Primary Care Provider [phone] Encounter Details Date Type Department Care Team (Late st Contact Info) Description 07/08/2021 Telephone [place] [address] Yue Guillory Social History Tobacco Use Types [...] PM EDT Office Visit Cardiology at [address] [place] [address] Rigoberto Diaz MD [facility] [address] Scheduled Procedures Name Priority Associated Diagnoses Date/Ti me EGD, UPPER GI ENDOSCOPY (WRV U 2.09) Incontinence of feces, unspecified fecal incontinence type Dysphagia, unspecified type COLONOSCOPY, DIAGNOSTIC (WRV U 3.26) Incontinence of feces, unspecified fecal incontinence type Dysphagia, unspecified type documented as of this encounter Visit Diagnoses Not on filedocumented in this encounter Care Teams Piece Work Inspector Relationship Specialty Start Date End Date Vanita Churchill APRN PCP - General Family Medicine 02/27/19 07/18/24 documented as of this encounter
--- OUTSIDE RECORDS SUMMARY | 2024-08-12 07:37 | XMS_ITS | Encounter Summary ---
[place] [address] Care Team Providers Care Reproduction Artist Name Role Phone Vanita Churchill CLIENT REPORTING ASSOCIATE Primary Care Provider [phone] Encounter Details Date Type Department Care Team (Late st Contact Info) Description 06/13/2019 10:45 AM EDT Office Visit [place] [phone] Lubna Johnston MD [facility] [place] [address] Acute urticaria Social History Tobacco Use Types [...] PM EDT Office Visit Cardiology at [address] [place] [address] Rigoberto Diaz MD [facility] [place] [address] Scheduled Procedures Name Priority Associated Diagnoses Date/Ti me EGD, UPPER GI ENDOSCOPY (WRV U 2.09) Incontinence of feces, unspecified fecal incontinence type Dysphagia, unspecified type COLONOSCOPY, DIAGNOSTIC (WRV U 3.26) Incontinence of feces, unspecified fecal incontinence type Dysphagia, unspecified type documented as of this encounter Visit Diagnoses Diagnosis Acute urticaria Other specified urticaria documented in this encounter Care Teams Reproduction Artist Relationship Specialty Start Date End Date Vanita Churchill APRN PCP - General Family Medicine 02/27/19 07/18/24 documented as of this encounter
--- OUTSIDE RECORDS SUMMARY | 2024-08-12 07:37 | XMS_ITS | Encounter Summary ---
[place] [address] Care Team Providers Care Director College Name Role Phone Vanita Churchill Omar SPARROW Primary Care Provider [phone] Encounter Details Date Type Department Care Team (Late st Contact Info) Description 06/17/2019 12:45 PM EDT Office Visit [place] [phone] Jake Montaño MD [facility] [place] [address] Stenosis of carotid artery, unspecified laterality Social [...] 2:40 PM EDT Office Visit Cardiology at [address] [place] [address] Rigoberto Diaz MD [facility] [place] [address] Scheduled Procedures Name Priority Associated Diagnoses Date/Ti me EGD, UPPER GI ENDOSCOPY (WRV U 2.09) Incontinence of feces, unspecified fecal incontinence type Dysphagia, unspecified type COLONOSCOPY, DIAGNOSTIC (WRV U 3.26) Incontinence of feces, unspecified fecal incontinence type Dysphagia, unspecified type documented as of this encounter Visit Diagnoses Diagnosis Stenosis of carotid artery, unspecified laterality documented in this encounter Care Teams Director College Relationship Specialty Start Date End Date Vanita Churchill APRN PCP - General Family Medicine 02/27/19 07/18/24 documented as of this encounter
--- OUTSIDE RECORDS SUMMARY | 2024-08-12 07:37 | XMS_ITS | Encounter Summary ---
Author Organization [facility] [place] [address] Care Team Providers Care Green Building Engineer Name Role Phone Vanita Churchill CRATE BUILDER Primary Care Provider [phone] Reason for Visit * Auth/Cert Specialty Diagnoses / Procedures Referred By Emy castillo Referred To Contact Diagnoses Carotid stenosis Procedures PRO THROMBOENDARTECTMY NECK, NECK INCIS @ENDARTERECTOMY, CAROTID, VERTEBRAL,SUBCLAVIAN W\WO PATCH GRAFT (WRVU 21.16) Referral ID Status Reason Start Date Expiration Date Visits Re quested Visits Authorized [id number] 1 1 Encounter Details Date Type Department Care Team (Latest Contact Info) Description 06/10/2019 10:24 AM EDT - 06/11/2019 10:47 AM EDT Hospital Encounter [address] [place] [address] Dorota Montaño MD [facility] [place] [address] Bilateral carotid artery stenosis Discharge Disposition: Home [...] or questions please call our office at [phone] TERESA Sousa, malt liquors sales supervisor Nurse Clinician For issues on weeknights after 5pm and weekends please call [phone] and ask for the Vascular Fellow cotton ginner helper. General Instructions None Future Appointments and Orders Future Appointments and Orders Future Appointments Provider Department Dept Phone 07/15/2019 2:00 PM Avel Miller RVT Vascular Lab at [place] Arrive at: [place] Area [phone] 07/15/2019 2:30 PM Dorota Montaño MD Vascular Surgery at [place] Arrive at: [place] [phone] 03/19/2020 9:30 AM Alley Johnson APRN Sleep Center at [facility] Arrive at: [place] [address] [place] [phone] Future Orders Complete By Expires Carotid Duplex, Unilateral [VAS2 Custom] 07/12/2019 (Approximate) 06/11/2020 Process Instructions: There is no in-house vascular wastewater analyst lab analyst available on weeknights (5pm-8am), weekends, or holidays. IF THIS IS A REQUEST FOR AN EMERGENT STUDY DURING THOSE HOURS, please have the senior provider responsible for the patient page the Vascular Surgery Fellow/Senior Resident cotton ginner helper to discuss options. Scheduling Instructions: Questions: Laterality: Right Indication for study/signs & symptoms: s/p R CEA Question to be answered: patency At which DH location will this be performed?: [place] Discharge References/Attachments: Discharge References/Attachments None Electronically Signed [...] or questions please call our office at [phone] TERESA Sousa, malt liquors sales supervisor Nurse Clinician For issues on weeknights after 5pm and weekends please call [phone] and ask for the Vascular Fellow cotton ginner helper. documented in this encounter Medications at Time [...] Indications: Hypothyroidism 10/11/2022 fluticasone (FLONASE) 50 mcg/actuation [place], SuspensionIndications:S easonal allergic rhinitis 2 sprays by [...] a little headache mostly on the right jew. Tylenol given. Neuro intact. Francisco Javier MULTANI [...] 1.79) performed by Dorota Montaño MD at [facility] MAIN OR ??? PRO COLONOSCOPY, DIAGNOSTIC 12/06/2012 COLONOSCOPY, DIAGNOSTIC performed by Mik Dumont MD at [facility] ENDOSCOPY ??? PRO LAPAROSCOPY, SURG, REPAIR PARAESOPHAGEAL HERNIA, W/O IMPLANTATION OF MESH 02/18/2013 LAPAROSCOPIC PARAESOPHAGEAL HERNIA REPAIR W/FUNDOPLASTY, W/O MESH performed by Moncho Bowers MD at [facility] MAIN OR ??? PRO PLACE CATH FIRST ORDER ART, ABD/PELV 08/15/2017 CATHETER PLACEMENT, SELECTIVE FIRST ORDER IN ARTERIAL SYSTEM, EACH FIRST ORDER ABDOMINAL, PELVIC, OR LOWER EXTREMITY ARTERY BRANCH,WITHIN A VASCULAR FAMILY (WRVU 4.9) performed by Dorota Montaño MD at [facility] MAIN OR ? ? PRO REVSC OPEN/PERCUTANEOUS ILIAC ART W STNT PLMT&ANGIO PATRICE VSL UNILAT Bilateral 08/15/2017 REVSC OPN\PRQ ILIAC ART W\STNT PLMT & ANGIOP SAME VSL (WRVU 10) performed by Dorota Montaño MD at [facility] MAIN OR ??? PRO THROMBOENDARTECTMY ILIOFEMORAL Left 08/15/2017 @ENDARTERECTOMY, ILIOFEMORAL W OR W/O PATCH GRAFT (WRVU 19.86) performed by Dorota Montaño MD at [facility] MAIN OR ??? PRO UPPER GI ENDOSCOPY, BIOPSY 12/06/2012 EGD WITH BIOPSY performed by Mik Dumont MD at [facility] ENDOSCOPY ??? TUBAL LIGATION Functional Status/Social Hx: [...] file Gets together: Not on file Attends jewish service: Not on file Active member of [...] Indications: Hypothyroidism ??? fluticasone (FLONASE) 50 mcg/actuation [place], Suspension 2 sprays by Each Nare route [...] Nik Dover Isabellizzethdanni 06/11/2019 Vascular Surgery, pager [phone] * Plan of Care - Zhanna Lou [...] Chu MD - 06/10/2019 3:46 PM EDT [facility] Operative Note Patient Name: Lindsey Deleon : [id number] MR#: [id number] Case Date: 06/10/2019 Surgeon: Surgeon(s) and Role: [...] artery distally using Pott's scissors. Using a [place] elevator, endarterectomy of the common carotid and [...] PM EDT Office Visit Cardiology at [address] [place] [address] Rigoberto Diaz MD [facility] [address] [place] [address] Scheduled Procedures Name Priority Associated Diagnoses Date/Ti me EGD, UPPER GI ENDOSCOPY (WRV U 2.09) Incontinence of feces, unspecified fecal incontinence type Dysphagia, unspecified type COLONOSCOPY, DIAGNOSTIC (WRV U 3.26) Incontinence of feces, unspecified fecal incontinence type Dysphagia, unspecified type documented as of this encounter Procedures Procedure Name Priority Date/Time Associated Diagnosis Comments BLOOD GAS ARTERIAL POC Routine 06/10/2019 12:58 PM EDT @ENDARTERECTOMY, CAROTID, VERTEBRAL,SUBCLAVIA N W\WO PATCH GRAFT (WRVU 21.16) 06/10/2019 12:03 PM EDT Carotid stenosis ENDART, CAROTID, VERTEBRAL,SUBCLAVIA N W\WO PATCH GRAFT, BY NECK INCIS Routine 06/10/2019 10:30 AM EDT documented in this encounter Results * Carotid Duplex, Unilateral (07/15/2019 1:45 PM EDT) VB Text Report Department: Vascular Surgery Lab Patient: [id number] (LINDSEY DELEON) CPT: 66307 ICD10: I65.23 Referring Physician: DOROTA MONTAÑO MD [...] GAS 2 ARTERIAL (06/10/2019 12:58 PM EDT) pH, Arterial 7.42 7.35 - 7.45 [facility] PCO2, Arterial 37 35 - 45 mmHg [facility] PO2, Arterial 257(H) 85 - 104 mmHg [facility] Bicarbonate, Arterial 23.5 20.0 - 26.0 mmol/L [facility] Base Excess, Arterial -1.3 -3.0 - 3.0 mmol/L [facility] Hgb Blood Gas 12.7 11.7 - 15.5 gm/dL [facility] Oxyhemoglobin, Arterial 98.5(H) 94.0 - 97.0 % [facility] Carboxyhemoglob in, Arterial 0.6 % [facility] Comment: Nonsmokers: 0.5-1.5% COHB Smokers: Variable, but usually less than 10% Toxic: 20-30% COHB Lethal: Greater than 60% COHB Methemoglobin, Arterial 0.3 <=1.5 % [facility] Na Whole Blood 134(L) 135 - 145 mmol/L [facility] K Whole Blood 3.5 3.5 - 5.0 mmol/L [facility] Comment: Please note: Patients with WBC >100,000 may have falsely elevated Potassium levels. Contact the Clinical Chemistry Laboratory if there are any questions. ICa Whole Blood 1.17 1.15 - 1.33 mmol/L [facility] Comment: Note: ??Total bilirubin higher than 20 mg/dL may lead to falsely low ionized calcium. CL Whole Blood 101 98 - 107 mmol/L [facility] Gluc Whole Bld 116 65 - 199 mg/dL [facility] Comment:Diabetes: >=200 mg/d L plus symptoms. Lactate WB 0.7 0.5 - 2.2 mmol/L [facility] FIO2 Art 59 % [facility] PF Ratio Art 436 [facility] Temp Art 35.7 Celsius [facility] Blood specimen (specimen) 06/10/2019 12:58 PM EDT 06/10/2019 12:58 PM EDT Dorota Montaño MD POINT OF CARE TEST O RDERABLES [facility] [place] [address] documented in this encounter Visit Diagnoses Diagnosis [...] on Mon06/11/19 at 0900, Until Discontinued, Routine 09 (Given - Provid er: Magnolia Piper RN) buPROPion (WELLBUTRIN) tablet 50 mg 50 mg, Oral, DAILY, First dose on Mon06/11/19 at 0900, Until Discontinued, Routine 09 (Given - Provid er: Magnolia Piper RN) [...] Suspected): Prophylaxis 1225 (Given - Provider: Brooke Thoamson CRNA - Comment: administered over 20 minutes)1525 (Given - Provider: Brooke Thomason CRNA - Comment: administered over 20 minutes) citalopram (CeleXA) tablet 40 mg 40 mg, Oral, DAILY, First dose on Mon06/10/19 at 2044, Until Discontinued, Routine 2106 (Given - Provider: Zhanna Lou RN) 920 (Given - Provider: Magnolia Piper RN) ezetimibe [...] Provider: Zhanna Lou RN - Reason: Contraindicated) 921 (Given - Provider: Magnolia Piper RN) ipratropium-albuterol [...] 0920 (Given - Provider: Magnolia Piper RN) senna-docusate (PERICOLACE) 8.6-50 mg per tablet 2 [...] from [employer]) 0923 (Given - Provider: Magnolia Piper, RANGEL) Continuous Medication Order 06/09/2019 06/10/2019 06/11/2019 lactated [...] first. documented in this encounter Care Teams Green Building Engineer Relationship Specialty Start Date End Date Vanita Churchill, KYARA PCP - General Family Medicine 02/27/19 07/18/24 documented as of this encounter
--- OUTSIDE RECORDS SUMMARY | 2024-08-12 07:37 | XMS_ITS | Encounter Summary ---
[place] [address] Care Team Providers Care Forest Scientist Name Role Phone KwesiVanita mix Omar SPARROW Primary Care Provider [phone] Reason for Visit * Diagnostic Test (Routine) - Closed Specialty Diagnoses / Procedures Referred By Emy castillo Referred To Contact Gastroenterology Diagnoses Dysphagia, unspecified type HREM - dysphagia Procedures High Resolution Esophageal Manometry HREM - dysphagia Isabella Leslie PA [facility] [place] [address] [facility] [address] [place] [address] Referral ID Status Reason Start Date Expiration Date V isits Requested Visits Authorized [id number] Closed Test Only 06/22/2022 06/22/2023 1 1 Encounter Details Date Type Department Care Team (Latest Contact Info) Description 09/02/2022 9:00 AM EDT Procedure visit [place] [address] Dysphagia, unspecified type Social History [...] MANOMETRY PROCEDURE NOTE Patient: Lindsey Mehta [address]: [address] [place] [id number] : 1950 Date of service: 09/02/2022 Indication: [...] relaxation pressure: 0 mmHg (normal <12 mmHg) Animal Cruelty Investigator swallow: Impressions based on [place] Classification v4.0: No evidence of a clinically significant disorder of peristalsis or EGJ outflow obstruction. *These findings assume that mechanical obstruction has been ruled out. Gregorio Michel MD, CPC Section of Gastroenterology and Hepatology [facility] [place] [address] V: [phone] F: [phone] CC/EC: Vanita Churchill APRN [address] [place] [address] * Zhanna Lugo RN - 09/02/2022 9:00 [...] PM EDT Office Visit Cardiology at [address] [address] Rigoberto Diaz MD [facility] [place] [address] Scheduled Procedures Name Priority Associated Diagnoses Date/Ti me EGD, UPPER GI ENDOSCOPY (WRV U 2.09) Incontinence of feces, unspecified fecal incontinence type Dysphagia, unspecified type COLONOSCOPY, DIAGNOSTIC (WRV U 3.26) Incontinence of feces, unspecified fecal incontinence type Dysphagia, unspecified type documented as of this encounter Visit Diagnoses Diagnosis Dysphagia, unspecified type documented in this encounter Care Teams Forest Scientist Relationship Specialty Start Date End Date Vanita Churchill APRN PCP - General Family Medicine 02/27/19 07/18/24 documented as of this encounter
--- OUTSIDE RECORDS SUMMARY | 2024-08-12 07:37 | XMS_ITS | Encounter Summary ---
Author Organization [facility] [place] [address] Care Team Providers Care Machine Milker Name Role Phone Vanita Churchill KYARA Primary Care Provider [phone] Encounter Details Date Type Department Care Team (Late st Contact Info) Description 06/13/2019 Telephone [place] [phone] Deborah Villegas, [facility] Social History Tobacco Use Types Packs/Day Years [...] PM EDT Office Visit Cardiology at [address] [place] [address] Rigoberto Diaz MD [facility] [address] [place] [address] Scheduled Procedures Name Priority Associated Diagnoses Date/Ti me EGD, UPPER GI ENDOSCOPY (WRV U 2.09) Incontinence of feces, unspecified fecal incontinence type Dysphagia, unspecified type COLONOSCOPY, DIAGNOSTIC (WRV U 3.26) Incontinence of feces, unspecified fecal incontinence type Dysphagia, unspecified type documented as of this encounter Visit Diagnoses Not on filedocumented in this encounter Care Teams Machine Milker Relationship Specialty Start Date End Date Vanita Churchill, KYARA PCP - General Family Medicine 02/27/19 07/18/24 documented as of this encounter
--- OUTSIDE RECORDS SUMMARY | 2024-08-12 07:37 | XMS_ITS | Encounter Summary ---
[place] [address] Care Team Providers Care Launch Commander [employer] Name Role Phone Vanita Churchill APRN Primary Care Provider [phone] Reason for Referral * Diagnostic Test (Routine) - Closed Specialty Diagnoses / Procedures Referred By Emy castillo Referred To Contact Gastroenterology Diagnoses Dysphagia, unspecified type HREM - dysphagia Procedures High Resolution Esophageal Manometry HREM - dysphagia Isabella Leslie PA [facility] [address] [facility] [place] [place] [address] Referral ID Status Reason Start Date Expiration Date V isits Requested Visits Authorized [id number] Closed Test Only 06/22/2022 06/22/2023 1 1 Reason for Visit * Consultation (Routine) - Closed Specialty Diagnoses / Procedures Referred By Emy castillo Referred To Contact Gastroenterology Diagnoses Irritable bowel syndrome, unspecified type Incontinence of feces, unspecified fecal incontinence type Dysphagia, unspecified type IBS, fecal inctinence; dysphagia Vanita Churchill, GUN NUMBERER [address] [place] [address] [facility] [address] [place] [address] Referral ID Status Reason Start Date Expiration Date V isits Requested Visits Authorized [id number] Closed Consult, Test & Treat 05/09/2022 05/09/2023 1 1 Encounter Details Date Type Department Care Team (Latest Contact Info) Description 06/22/2022 10:00 AM EDT TH Visit (TeleHealth) [place] [address] Isabella Leslie PA [facility] [place] [address] Incontinence of feces, unspecified fecal [...] past surgical history that includes Colonoscopy, Diagnostic (93716) (12/06/2012); Upper Gi Endoscopy, Biopsy (57507) (12/06/2012); Cholecystectomy; Tubal ligation; Laparscopy Repair Paraesophageal Hernia Incl Fundoplasty W/O Mesh (91138) (02/18/2013); Revsc Open/Percutaneous Iliac Art W Stnt Plmt&Angio Trace Vsl Unilat(31599) (Bilateral, 08/15/2017); Thromboendartectmy Iliofemoral (54412) (Left, 08/15/2017); S&I Aortography, Abdominal Plus Bilateral Iliofemoral Lower Extremity (61692) (N/A, 08/15/2017); Place Cath First Order Art, Abd/Pelv (42021) (08/15/2017); andThromboendartectmy Neck, Neck Incis (50781) (Right, 06/10/2019). Family History: denies family history [...] comfortable with the above plan RITA Terry [facility] [address] [place] [address] documented in this encounter Plan of Treatment Upcoming Encounters Date Type Department Care Team (Late st Contact Info) Description 02/06/2025 2:40 PM EDT Office Visit Cardiology at [address] [phone] Rigoberto Diaz MD [facility] [address] [place] [address] Scheduled Orders Name Type Priority Associated Diagnoses Orde r Schedule ENDOSCOPY CASE REQUEST: EGD, UPPER GI ENDOSCOPY, COLONOSCOPY, DIAGNOSTIC Procedures Routine Incontinence of feces, unspecified fecal incontinence type Dysphagia, unspecified type Ordered: 06/22/2022 High Resolution Esophageal Manometry GI Routine Dysphagia, unspecified type Expected: 06/22/2022 (Approximate), Expires: 06/22/2023 Scheduled Procedures Name Priority Associated Diagnoses Date/Ti wa EGD, UPPER GI ENDOSCOPY (WRV U 2.09) Incontinence of feces, unspecified fecal incontinence type Dysphagia, unspecified type COLONOSCOPY, DIAGNOSTIC (WRV U 3.26) Incontinence of feces, unspecified fecal incontinence type Dysphagia, unspecified type documented as of this encounter Visit Diagnoses Diagnosis Incontinence of feces, unspecified fecal incontinence type Dysphagia, unspecified type documented in this encounter Care Teams Launch Commander [employer] Relationship Specialty Start Date End Date Vanita Churchill, GUN NUMBERER PCP - General Family Medicine 02/27/19 07/18/24 documented as of this encounter
--- OUTSIDE RECORDS SUMMARY | 2024-08-12 07:37 | XMS_ITS | Encounter Summary ---
[place] [address] Care Team Providers Care Bridge Worker Name Role Phone Vanita Churchill Omar SPARROW Primary Care Provider [phone] Encounter Details Date Type Department Care Team (Late st Contact Info) Description 05/12/2020 Ancillary Procedure Radiology at [facility] [address] [place] [phone] Fany Cates MD [address] [place] [address] Social History Tobacco Use Types Packs/Day Years [...] PM EDT Office Visit Cardiology at [address] [address] Rigoberto Diaz MD [facility] [address] [address] Scheduled Procedures Name Priority Associated Diagnoses Date/Ti [...] MR Spine (05/12/2020 12:00 AM EDT) Narrative [facility] [place] - 06/04/2021 1:08 PM EDT This exam is auto-finalizing. It's purpose is for storage only. Fany Cates MD IMG FILM LIBRARY ORDERABLES Performing Organization Address City/State/[facility] Co de Phone Number [place], [place] documented in this encounter Visit Diagnoses Not on filedocumented in this encounter Care Teams Bridge Worker Relationship Specialty Start Date End Date Vanita Churchill APRN PCP - General Family Medicine 02/27/19 07/18/24 documented as of this encounter
--- OUTSIDE RECORDS SUMMARY | 2024-08-12 07:37 | XMS_ITS | Encounter Summary ---
[place] [address] Care Team Providers Care Carnival Worker Name Role Phone Vanita Churchill ROLL WRAPPER Primary Care Provider [phone] Reason for Visit * Reason Comments Carotid Stenosis s/p r cea 1 mos chec k Encounter Details Date Type Department Care Team (Late st Contact Info) Description 07/15/2019 2:30 PM EDT Office Visit [place] [address] Jake Montaño MD [facility] [place] [address] Stenosis of right carotid artery Social History [...] on either foot. Neuro non-focal. ?? Labs: Floorworker Lasting (05/21/19): 1.04 No results available for lipid [...] PM EDT Office Visit Cardiology at [address] [place] [address] Rigoberto Diaz MD [facility] [place] [address] Scheduled Procedures Name Priority Associated Diagnoses Date/Ti [...] infarction documented in this encounter Care Teams Carnival Worker Relationship Specialty Start Date End Date Vanita Churchill, KYARA PCP - General Family Medicine 02/27/19 07/18/24 documented as of this encounter
--- OUTSIDE RECORDS SUMMARY | 2024-08-12 07:37 | XMS_ITS | Encounter Summary ---
Author Organization [facility] [place] [address] Care Team Providers Care Director Of Public Works Name Role Phone Vanita Churchill KYARA Primary Care Provider [phone] Reason for Visit * Auth/Cert Specialty Diagnoses / Procedures Referred By Emy castillo Referred To Contact Diagnoses Carotid stenosis Procedures PRO THROMBOENDARTECTMY NECK, NECK INCIS @ENDARTERECTOMY, CAROTID, VERTEBRAL,SUBCLAVIAN W\WO PATCH GRAFT (WRVU 21.16) Referral ID Status Reason Start Date Expiration Date Visits Re quested Visits Authorized [id number] 1 1 Encounter Details Date Type Department Care Team (Late st Contact Info) Description 06/10/2019 12:00 PM EDT Anesthesia [place] [address] Mane Hanson MD [facility] [place] [address] Brooke Thomason CRNA [facility] [place] [address] Anesthesia Record Procedure Summary Procedure Name Responsible [...] without issue. VSS. Full report given to TALCER. Meds Name Total Midazolam 2 mg fentaNYL [...] 1050; metacarpal vein (top of hand), left; sylt-bjc-ehqjiv catheter system; 18 gauge; Jo Mayes RN; [...] by Brooke Thomason CRNA 06/10/19 153 by Brooke Thomason CRNA (RETIRED) Peripheral IV Line - Single Lumen 06/10/19; 1220; median cubital vein (antecubital fossa), left; toos-drn-taopkj catheter system; 16 gauge; Brooke Thomason CRNA; [...] Procedure Summary Date: 06/10/19 Room / Location: [facility] OR [address] [place] [address] MAIN OR Anesthesia Start: 1200 Anesthesia Stop: 1604 Procedure: @ENDARTERECTOMY, CAROTID, VERTEBRAL,SUBCLAVIAN W\WO PATCH GRAFT (WRVU 21.16) (Right Neck) Diagnosis: (Carotid stenosis) Surgeon: Jake Montaño MD Responsible Provider: Mane Hanson MD Anesthesia Type: general ASA Status: 3 All Anesthesia Providers: Anesthesiologist: Mane Hanson MD SHOW HORSE DRIVER: Brooke Thomason CRNA Vitals Value Taken Time BP 119/63 06/10/2019 6:30 PM Temp 36.4 ??C (97.5 ??F) 06/10/2019 5:00 PM Pulse 68 06/10/2019 6:43 PM Resp 16 06/10/2019 6:43 PM SpO2 97 % 06/10/2019 6:43 PM Pain Level 1 06/10/2019 5:00 PM Vitals shown include unvalidated device data. Patient Location: [facility] Level of Consciousness: Awake and Alert [...] MESH performed by Moncho Bowers MD at [facility] MAIN OR ??? [...] at [facility] ENDOSCOPY ??? TUBAL LIGATION Social History [...] with patient and daughter/son. Plan discussed with SHOW HORSE DRIVER. PAT Clinic Note documented in this encounter Plan of Treatment Upcoming Encounters Date Type Department Care Team (Late st Contact Info) Description 02/06/2025 2:40 PM EDT Office Visit Cardiology at [address] [place] [address] Rigoberto Diaz MD [facility] [place] [address] Scheduled Procedures Name Priority Associated Diagnoses Date/Ti [...] mg documented in this encounter Care Teams Director Of Public Works Relationship Specialty Start Date End Date Vanita Churchill APRN PCP - General Family Medicine 02/27/19 07/18/24 documented as of this encounter
--- OUTSIDE RECORDS SUMMARY | 2024-08-12 07:37 | XMS_ITS | Encounter Summary ---
[place] [address] Care Team Providers Care Litigation Docket Manager Name Role Phone KwesiVanita mix Omar SPARROW Primary Care Provider [phone] Encounter Details Date Type Department Care Team (Late st Contact Info) Description 07/12/2021 2:00 PM EDT Office [place] [phone] Prerna Harmon MD [facility] [place] [address] PVD (peripheral vascular disease) with claudication; Stenosis [...] Text Report Department: Vascular Surgery Lab Patient: [id number] ([facility]) CPT: 62219 ICD10: I73.9;I65.23;I65.21 Referring Physician: DOROTA MCKEON MD [...] Text Report Department: Vascular Surgery Lab Patient: [id number] ([facility] MEHTA CPT: 36991 ICD10: I73.9;I70.213;I65.21 Referring Physician: DOROTA MCKEON MD [...] PM EDT Office Visit Cardiology at [address] [place] [address] Rigoberto Diaz MD [facility] [place] [place] [address] Scheduled Procedures Name Priority Associated Diagnoses Date/Ti [...] infarction documented in this encounter Care Teams Litigation Docket Manager Relationship Specialty Start Date End Date Vanita Churchill APRN PCP - General Family Medicine 02/27/19 07/18/24 documented as of this encounter
--- OUTSIDE RECORDS SUMMARY | 2024-08-12 07:37 | XMS_ITS | Encounter Summary ---
[place] [address] Care Team Providers Care Cyber Software Engineer Name Role Phone Vanita Churchill APRN Primary Care Provider [phone] Reason for Referral * Consultation (Routine) - Closed Specialty Diagnoses / Procedures Referred By Emy castillo Referred To Contact Gastroenterology Diagnoses Irritable bowel syndrome, unspecified type Incontinence of feces, unspecified fecal incontinence type Dysphagia, unspecified type IBS, fecal inctinence; dysphagia Vanita Churchill APRN [address] [place] [address] [facility] [address] [address] Referral ID Status Reason Start Date Expiration Date V isits Requested Visits Authorized [id number] Closed Consult, Test & Treat 05/09/2022 05/09/2023 1 1 Encounter Details Date Type Department Care Team (Latest Contact Info) Description 05/09/2022 Transcribe Orders eDH Incoming Referrals [phone] Vanita Churchill APRN [address] [place] [address] Irritable bowel syndrome, unspecified type; Incontinence of [...] PM EDT Office Visit Cardiology at [address] [address] Rigoberto Diaz MD [facility] [place] [address] Scheduled Procedures Name Priority Associated Diagnoses Date/Ti [...] type documented in this encounter Care Teams Cyber Software Engineer Relationship Specialty Start Date End Date Vanita Churchill APRN PCP - General Family Medicine 02/27/19 07/18/24 documented as of this encounter
--- OUTSIDE RECORDS SUMMARY | 2024-08-12 07:37 | XMS_ITS | Encounter Summary ---
[place] [address] Care Team Providers Care Spudder Name Role Phone Vanita Churchill Omar SPARROW Primary Care Provider [phone] Encounter Details Date Type Department Care Team (Late st Contact Info) Description 06/22/2022 Telephone [place] [phone] Nitza Barker CMA GASTROENTEROLOGY DEPT Social History [...] PM EDT Office Visit Cardiology at [address] [place] [address] Rigoberto Diaz MD [facility] [place] [address] Scheduled Procedures Name Priority Associated Diagnoses Date/Ti me EGD, UPPER GI ENDOSCOPY (WRV U 2.09) Incontinence of feces, unspecified fecal incontinence type Dysphagia, unspecified type COLONOSCOPY, DIAGNOSTIC (WRV U 3.26) Incontinence of feces, unspecified fecal incontinence type Dysphagia, unspecified type documented as of this encounter Visit Diagnoses Not on filedocumented in this encounter Care Teams Spudder Relationship Specialty Start Date End Date Vanita Churchill APRN PCP - General Family Medicine 02/27/19 07/18/24 documented as of this encounter
--- OUTSIDE RECORDS SUMMARY | 2024-08-12 07:37 | XMS_ITS | Encounter Summary ---
[place] [address] Care Team Providers Care Circulation Director Name Role Phone Vanita Churchill KYARA Primary Care Provider [phone] Encounter Details Date Type Department Care Team (Late st Contact Info) Description 07/02/2020 10:30 AM EDT Tech Visit [place] [address] Kailee Franklin, RVT Bilateral carotid artery stenosis; [...] PM EDT Office Visit Cardiology at [address] [address] Rigoberto Diaz MD [facility] [place] [address] Scheduled Procedures Name Priority Associated Diagnoses Date/Ti [...] Text Report Department: Vascular Surgery Lab Patient: [id number] ([facility]) CPT: 22985 ICD10: I73.9;I70.213 Referring Physician: DOROTA MONTAÑO MD [...] Text Report Department: Vascular Surgery Lab Patient: [id number] ([facility]LE[facility]) CPT: 19146 ICD10: I65.23 Referring Physician: DOROTA MONTAÑO MD [...] Montaño MD VASCULAR ORDERABLES Performing Organization Address City/State/[facility] Co de Phone Number [facility] documented in this encounter Visit Diagnoses Diagnosis Bilateral carotid artery stenosis Occlusion and stenosis of multiple and bilateral precerebral arteries without mention of cerebral infarction PVD (peripheral vascular disease) with claudication Peripheral vascular disease, unspecified documented in this encounter Care Teams Circulation Director Relationship Specialty Start Date End Date Vanita Churchill, BUS AND SYS INTEGRATION SENIOR MANAGER PCP - General Family Medicine 02/27/19 07/18/24 documented as of this encounter
--- OUTSIDE RECORDS SUMMARY | 2024-08-12 07:37 | XMS_ITS | Encounter Summary ---
Author Organization [facility] [place] [address] Care Team Providers Care Coffee Shop Attendant Name Role Phone Vanita Churchill RETAIL LINK ANALYST Primary Care Provider Reason for Visit * Auth/Cert Specialty Diagnoses / Procedures Referred By Emy castillo Referred To Contact Diagnoses Carotid stenosis Procedures PRO THROMBOENDARTECTMY NECK, NECK INCIS @ENDARTERECTOMY, CAROTID, VERTEBRAL,SUBCLAVIAN W\WO PATCH GRAFT (WRVU 21.16) Referral ID Status Reason Start Date Expiration Date Visits Re quested Visits Authorized [id number] 1 1 Encounter Details Date Type Department Care Team (Late st Contact Info) Description 06/10/2019 12:11 PM EDT - 06/10/2019 4:36 PM EDT Surgery [place] [address] Dorota Montaño MD [facility] [place] [address] @ENDARTERECTOMY, CAROTID, VERTEBRAL,SUBCLAVIAN W\WO PATCH GRAFT (WRVU [...] or questions please call our office at [phone] Ella Ned, BSN, brush machine setter Nurse Clinician For issues on weeknights after 5pm and weekends please call [phone] and ask for the Vascular Fellow information resources manager. General Instructions None Future Appointments and Orders Future Appointments and Orders Future Appointments Provider Department Dept Phone 07/15/2019 2:00 PM Avel Miller RVT Vascular Lab at [place] Arrive at: Water Rights Specialist Area [phone] 07/15/2019 2:30 PM Dorota Montaño MD Vascular Surgery at [place] Arrive at: Water Rights Specialist Area [phone] 03/19/2020 9:30 AM Alley Johnson RETAIL LINK ANALYST [facility] Arrive at: Water Rights Specialist [address] [place] [phone] Future Orders Complete By Expires Carotid Duplex, Unilateral [VAS2 Custom] 07/12/2019 (Approximate) 06/11/2020 Process Instructions: There is no in-house vascular clinical laboratory scientist available on weeknights (5pm-8am), weekends, or holidays. IF THIS IS A REQUEST FOR AN EMERGENT STUDY DURING THOSE HOURS, please have the senior provider responsible for the patient page the Vascular Surgery Fellow/Senior Resident information resources manager to discuss options. Scheduling Instructions: Questions: Laterality: Right Indication for study/signs & symptoms: s/p R CEA Question to be answered: patency At which DH location will this be performed?: [place] Discharge References/Attachments: Discharge References/Attachments None Electronically Signed [...] or questions please call our office at [phone] TERESA Sousa, brush machine setter Nurse Clinician For issues on weeknights after 5pm and weekends please call [phone] and ask for the Vascular Fellow information resources manager. documented in this encounter Medications at [...] Indications: Hypothyroidism 10/11/2022 fluticasone (FLONASE) 50 mcg/actuation [place], SuspensionIndications:S easonal allergic rhinitis 2 sprays by [...] a little headache mostly on the right faith. Tylenol given. Neuro intact. Francisco Javier MULTANI [...] 1.79) performed by Dorota Montaño MD at [facility] MAIN OR ??? PRO COLONOSCOPY, DIAGNOSTIC 12/06/2012 COLONOSCOPY, DIAGNOSTIC performed by Mik Dumont MD at [facility] ENDOSCOPY ??? PRO LAPAROSCOPY, SURG, REPAIR PARAESOPHAGEAL HERNIA, W/O IMPLANTATION OF MESH 02/18/2013 LAPAROSCOPIC PARAESOPHAGEAL HERNIA REPAIR W/FUNDOPLASTY, W/O MESH performed by Moncho Bowers MD at [facility] MAIN OR ??? PRO PLACE CATH FIRST ORDER ART, ABD/PELV 08/15/2017 CATHETER PLACEMENT, SELECTIVE FIRST ORDER IN ARTERIAL SYSTEM, EACH FIRST ORDER ABDOMINAL, PELVIC, OR LOWER EXTREMITY ARTERY BRANCH,WITHIN A VASCULAR FAMILY (WRVU 4.9) performed by Dorota Montaño MD at [facility] MAIN OR ? ? PRO REVSC OPEN/PERCUTANEOUS ILIAC ART W STNT PLMT&ANGIO PATRICE VSL UNILAT Bilateral 08/15/2017 REVSC OPN\PRQ ILIAC ART W\STNT PLMT & ANGIOP SAME VSL (WRVU 10) performed by Dorota Montaño MD at [facility] MAIN OR ??? PRO THROMBOENDARTECTMY ILIOFEMORAL Left 08/15/2017 @ENDARTERECTOMY, ILIOFEMORAL W OR W/O PATCH GRAFT (WRVU 19.86) performed by Dorota Montaño MD at [facility] MAIN OR ??? PRO UPPER GI ENDOSCOPY, BIOPSY 12/06/2012 EGD WITH BIOPSY performed by Mik Dumont MD at [facility] ENDOSCOPY ??? TUBAL LIGATION Functional Status/Social Hx: [...] file Gets together: Not on file Attends yazidism service: Not on file Active member of [...] by mouth daily. ??? UNABLE TO FIND [facility] ??? calcium-vitamin D 500 mg(1,250mg) -200 unit [...] Indications: Hypothyroidism ??? fluticasone (FLONASE) 50 mcg/actuation [place], Suspension 2 sprays by Each Nare route [...] Full Nik Simental 06/11/2019 Vascular Surgery, pager [phone] * Plan of Care - Zhanna Lou [...] Chu MD - 06/10/2019 3:46 PM EDT [facility] Operative Note Patient Name: Lindsey Deleon : [id number] MR#: [id number] Case Date: 06/10/2019 Surgeon: Surgeon(s) and Role: [...] artery distally using Pott's scissors. Using a [place] elevator, endarterectomy of the common carotid and [...] PM EDT Office Visit Cardiology at [address] [place] [address] Rigoberto Diaz MD [facility] [place] [address] Scheduled Procedures Name Priority Associated Diagnoses Date/Ti [...] Text Report Department: Vascular Surgery Lab Patient: [id number] ([facility]) CPT: 35415 ICD10: I65.23 Referring Physician: DOROTA MONTAÑO MD [...] EDT) pH, Arterial 7.42 7.35 - 7.45 [facility] PCO2, Arterial 37 35 - 45 mmHg [facility] PO2, Arterial 257(H) 85 - 104 mmHg [facility] Bicarbonate, Arterial 23.5 20.0 - 26.0 mmol/L [facility] Base Excess, Arterial -1.3 -3.0 - 3.0 mmol/L [facility] Hgb Blood Gas 12.7 11.7 - 15.5 gm/dL [facility] Oxyhemoglobin, Arterial 98.5(H) 94.0 - 97.0 % [facility] Carboxyhemoglob in, Arterial 0.6 % [facility] Comment: Nonsmokers: 0.5-1.5% COHB Smokers: Variable, but usually less than 10% Toxic: 20-30% COHB Lethal: Greater than 60% COHB Methemoglobin, Arterial 0.3 <=1.5 % [facility] Na Whole Blood 134(L) 135 - 145 mmol/L [facility] K Whole Blood 3.5 3.5 - 5.0 mmol/L [facility] Comment: Please note: Patients with WBC >100,000 may have falsely elevated Potassium levels. Contact the Clinical Chemistry Laboratory if there are any questions. ICa Whole Blood 1.17 1.15 - 1.33 mmol/L [facility] Comment: Note: ??Total bilirubin higher than 20 mg/dL may lead to falsely low ionized calcium. CL Whole Blood 101 98 - 107 mmol/L [facility] Gluc Whole Bld 116 65 - 199 mg/dL [facility] Comment:Diabetes: >=200 mg/d L plus symptoms. Lactate WB 0.7 0.5 - 2.2 mmol/L [facility] FIO2 Art 59 % [facility] PF Ratio Art 436 [facility] Temp Art 35.7 Celsius [facility] Blood specimen (specimen) 06/10/2019 12:58 PM EDT 06/10/2019 12:58 PM EDT Dorota Montaño MD POINT OF CARE TEST [place] [address] documented in this encounter Visit Diagnoses Not [...] on Mon06/10/19 at 2100, Until Discontinued, Routine 210 (Given - Provider: Zhanna Lou RN) 0920 (Given - Provider: Magonlia Piper RN) sodium chloride 0.9 % (flush) [...] first. documented in this encounter Care Teams Coffee Shop Attendant Relationship Specialty Start Date End Date Vanita Churchill, RETAIL LINK ANALYST PCP - General Family Medicine 02/27/19 07/18/24 documented as of this encounter
--- OUTSIDE RECORDS SUMMARY | 2024-08-12 07:38 | XMS_ITS | Encounter Summary ---
[place] [address] Care Team Providers Care Water And Gas Helper Name Role Phone Demetra Goff APRN Primary Care Provider [phone] Encounter Details Date Type Department Care Team (Late st Contact Info) Description 08/17/2017 Orders Only [place] [address] Ella Marino PEDIATRIC PSYCHIATRIST [facility] [place] [address] Social History Tobacco Use Types Packs/Day Years [...] PM EDT Office Visit Cardiology at [address] [address] Rigoberto Diaz MD [facility] [address] [place] [address] Scheduled Procedures Name Priority Associated Diagnoses Date/Ti me EGD, UPPER GI ENDOSCOPY (WRV U 2.09) Incontinence of feces, unspecified fecal incontinence type Dysphagia, unspecified type COLONOSCOPY, DIAGNOSTIC (WRV U 3.26) Incontinence of feces, unspecified fecal incontinence type Dysphagia, unspecified type documented as of this encounter Visit Diagnoses Not on filedocumented in this encounter Care Teams Water And Gas Helper Relationship Specialty Start Date End Date Demetra Goff APRN PCP - General 10/19/12 12/31/17 documented as of this encounter
--- OUTSIDE RECORDS SUMMARY | 2024-08-12 07:38 | XMS_ITS | Encounter Summary ---
[place] [address] Care Team Providers Care Patient Support Representative Name Role Phone Vanita Churchill NETWORK ANNOUNCER Primary Care Provider [phone] Encounter Details Date Type Department Care Team (Late st Contact Info) Description 05/03/2019 Orders [place] [phone] Marizol Baters RN Stenosis of carotid artery, unspecified laterality [...] PM EDT Office Visit Cardiology at [address] [phone] Rigoberto Diaz MD [facility] [address] [place] [address] Scheduled Procedures Name Priority Associated Diagnoses Date/Ti me EGD, UPPER GI ENDOSCOPY (WRV U 2.09) Incontinence of feces, unspecified fecal incontinence type Dysphagia, unspecified type COLONOSCOPY, DIAGNOSTIC (WRV U 3.26) Incontinence of feces, unspecified fecal incontinence type Dysphagia, unspecified type documented as of this encounter Results * Carotid Duplex, Bilateral (05/21/2019 10:22 AM EDT) VB Text Report Department: Vascular Surgery Lab Patient: [id number] (LINDSEY FIGUEREDO) CPT: 95703 ICD10: I65.29 Referring Physician: STEPHEN ESPINOSA ?? [...] laterality documented in this encounter Care Teams Patient Support Representative Relationship Specialty Start Date End Date Vanita Churchill, NETWORK ANNOUNCER PCP - General Family Medicine 02/27/19 07/18/24 documented as of this encounter
--- OUTSIDE RECORDS SUMMARY | 2024-08-12 07:38 | XMS_ITS | Encounter Summary ---
Author Organization [facility] [place] [address] Care Team Providers Care Sap Integration Architect Name Role Phone Vanita Churchill ONION TOPPER Primary Care Provider [phone] Encounter Details Date Type Department Care Team (Latest Contact Info) Description 05/23/2019 4:30 PM EDT [place] [address] Stenosis of carotid artery, unspecified [...] PM EDT Office Visit Cardiology at [address] [phone] Rigoberto Diaz MD [facility] [address] [place] [address] Scheduled Procedures Name Priority Associated Diagnoses Date/Ti me EGD, UPPER GI ENDOSCOPY (WRV U 2.09) Incontinence of feces, unspecified fecal incontinence type Dysphagia, unspecified type COLONOSCOPY, DIAGNOSTIC (WRV U 3.26) Incontinence of feces, unspecified fecal incontinence type Dysphagia, unspecified type documented as of this encounter Procedures Procedure Name Priority Date/Time Associated Diagnosis Comments URINE HOLD Routine 05/23/2019 4:40 PM EDT URINALYSIS DIPSTICK Routine 05/23/2019 4 :40 PM EDT Stenosis of carotid artery, unspecified laterality documented in this encounter Results * Urine Hold (05/23/2019 4:40 PM EDT) Hold, Urine Sample in lab. [facility] Urine specimen (specimen) Urine / Unknown 05/23/2019 4:40 PM EDT 05/23/2019 4:49 PM EDT Jake Montaño MD URINE ORDERABLES [facility] [place] [address] * (ABNORMAL) Urinalysis without microscopic (05/23/2019 4:40 PM EDT) Glucose, Urine Dipstick Negative Negative mg/dL [facility] Protein, Urine Dipstick Negative Negative mg/dL [facility] Bilirubin, Urine Dipstick Negative Negative mg/dL [facility] Comment: Clinical correlation required for positive Urine Bilirubin results as false positive may occur with some drugs and drug related products. If a false positive is suspected a serum total bilirubin should be considered if clinically indicated. Urobilinogen, Urine Dipstick Normal Normal mg/dL [facility] pH, Urn (dipstick) 6.0 5.0 - 8.0 [facility] Blood, Urine Dipstick Negative Negative mg/dL [facility] Ketone, Urine Dipstick Negative Negative mg/dL [facility] Nitrite, Urine Dipstick Negative Negative [facility] Leukocytes, Urine Dipstick Negative Negative [facility] Appearance, Urine Dipstick Clear Clear [facility] Specific [place] Urine Automated >1.035(H) 1.002 - 1.030 [facility] Color, Urine Dipstick Straw Yellow [facility] Urine specimen (specimen) 05/23/2019 4:40 PM EDT 05/23/2019 4:49 PM EDT Narrative Resulting Agency Comment Spec In Lab Jake Montaño MD URINE ORDERABLES [facility] [place] [address] documented in this encounter Visit Diagnoses Diagnosis Stenosis of carotid artery, unspecified laterality documented in this encounter Care Teams Sap Integration Architect Relationship Specialty Start Date End Date Vanita Churchill, ONION TOPPER PCP - General Family Medicine 02/27/19 07/18/24 documented as of this encounter
--- OUTSIDE RECORDS SUMMARY | 2024-08-12 07:38 | XMS_ITS | Encounter Summary ---
[place] [address] Care Team Providers Care Sales Strategy Manager Name Role Phone None Primary Care Provider Unavailabl e Encounter Details Date Type Department Care Team (Late st Contact Info) Description 12/31/2018 Telephone Sleep Center at [address] [place] [address] Alley Johnson APRN [facility] [place] [address] Social History Tobacco Use Types Packs/Day Years [...] PM EDT Office Visit Cardiology at [address] [address] Rigoberto Diaz MD [facility] [address] [place] [address] Scheduled Procedures Name Priority Associated Diagnoses Date/Ti me EGD, UPPER GI ENDOSCOPY (WRV U 2.09) Incontinence of feces, unspecified fecal incontinence type Dysphagia, unspecified type COLONOSCOPY, DIAGNOSTIC (WRV U 3.26) Incontinence of feces, unspecified fecal incontinence type Dysphagia, unspecified type documented as of this encounter Visit Diagnoses Not on filedocumented in this encounter Care Teams Sales Strategy Manager Relationship Specialty Start Date End Date None None PCP - General 09/27/18 02/26/19 documented as of this encounter
--- OUTSIDE RECORDS SUMMARY | 2024-08-12 07:38 | XMS_ITS | Encounter Summary ---
[place] [address] Care Team Providers Care Flight Crew Ordnanceman Name Role Phone Vanita Churchill KYARA Primary Care Provider [phone] Encounter Details Date Type Department Care Team (Late st Contact Info) Description 04/08/2019 Notes Only Sleep Center at [facility] [address] [place] [address] Gloria Nina Social History Tobacco Use Types [...] PM EDT Office Visit Cardiology at [address] [place] [address] Rigoberto Diaz MD [facility] [address] [place] [address] Scheduled Procedures Name Priority Associated Diagnoses Date/Ti me EGD, UPPER GI ENDOSCOPY (WRV U 2.09) Incontinence of feces, unspecified fecal incontinence type Dysphagia, unspecified type COLONOSCOPY, DIAGNOSTIC (WRV U 3.26) Incontinence of feces, unspecified fecal incontinence type Dysphagia, unspecified type documented as of this encounter Visit Diagnoses Not on filedocumented in this encounter Care Teams Flight Crew Ordnanceman Relationship Specialty Start Date End Date Vanita Churchill APRN PCP - General Family Medicine 02/27/19 07/18/24 documented as of this encounter
--- OUTSIDE RECORDS SUMMARY | 2024-08-12 07:38 | XMS_ITS | Encounter Summary ---
[place] [address] Care Team Providers Care Tanker Driver Name Role Phone Demetra Goff APRN Primary Care Provider [phone] Reason for Visit * Reason Comments Wound Check Encounter Details Date Type Department Care Team (Late st Contact Info) Description 08/30/2017 9:30 AM EDT Office [place] [address] Jake Montaño MD [facility] [place] [address] PVD (peripheral vascular disease) with claudication Social [...] 2:40 PM EDT Office Visit Cardiology at [address] [phone] Rigoberto Diaz MD [facility] [place] [address] Scheduled Procedures Name Priority Associated Diagnoses Date/Ti [...] unspecified documented in this encounter Care Teams Tanker Driver Relationship Specialty Start Date End Date Demetra Goff APRN PCP - General 10/19/12 12/31/17 documented as of this encounter
--- OUTSIDE RECORDS SUMMARY | 2024-08-12 07:38 | XMS_ITS | Encounter Summary ---
[place] [address] Care Team Providers Care Sand Filler Name Role Phone Vanita Churchill KYARA Primary Care Provider Encounter Details Date Type Department Care Team (Late st Contact Info) Description 02/28/2019 Orders [place] [phone] Deborah Villegas, ASSISTANT PRODUCTION EDITOR PVD (peripheral vascular disease) with claudication Social [...] PM EDT Office Visit Cardiology at [address] [place] [phone] Rigoberto iDaz MD [facility] [address] [place] [address] Scheduled Procedures Name Priority Associated Diagnoses Date/Ti me EGD, UPPER GI ENDOSCOPY (WRV U 2.09) Incontinence of feces, unspecified fecal incontinence type Dysphagia, unspecified type COLONOSCOPY, DIAGNOSTIC (WRV U 3.26) Incontinence of feces, unspecified fecal incontinence type Dysphagia, unspecified type documented as of this encounter Results * MARIYA, legs, multiple levels (07/02/2020 10:34 AM EDT) Pathologist [facility] VB Text Report Department: Vascular Surgery Lab Patient: [id number] (LINDSEY FIGUEREDO) CPT: 93895 ICD10: I73.9;I70.213 Referring Physician: DOROTA MONTAÑO MD [...] Montaño MD VASCULAR ORDERABLES Performing Organization Address City/State/[facility] Co de Phone Number [facility] documented in this encounter Visit Diagnoses Diagnosis PVD (peripheral vascular disease) with claudication Peripheral vascular disease, unspecified documented in this encounter Care Teams Sand Filler Relationship Specialty Start Date End Date Vanita Churchill, RIG OPERATOR PCP - General Family Medicine 02/27/19 07/18/24 documented as of this encounter
--- OUTSIDE RECORDS SUMMARY | 2024-08-12 07:38 | XMS_ITS | Encounter Summary ---
Author Organization [facility] [place] [address] Care Team Providers Care Clinical Pharmacist Name Role Phone Vanita Churchill DEALER CARD ROOM Primary Care Provider [phone] Encounter Details Date Type Department Care Team (Late st Contact Info) Description 05/23/2019 Orders Only [place] [phone] Marizol Batres RN Stenosis of carotid artery, [...] 2:40 PM EDT Office Visit Cardiology at [address] [phone] Rigoberto Diaz MD [facility] [address] [place] [address] Scheduled Orders Name Type Priority Associated Diagnoses [...] EDT) Glucose, Urine Dipstick Negative Negative mg/dL [facility] Protein, Urine Dipstick Negative Negative mg/dL [facility] Bilirubin, Urine Dipstick Negative Negative mg/dL [facility] Comment: Clinical correlation required for positive Urine Bilirubin results as false positive may occur with some drugs and drug related products. If a false positive is suspected a serum total bilirubin should be considered if clinically indicated. Urobilinogen, Urine Dipstick Normal Normal mg/dL [facility] pH, Urn (dipstick) 6.0 5.0 - 8.0 [facility] Blood, Urine Dipstick Negative Negative mg/dL [facility] Ketone, Urine Dipstick Negative Negative mg/dL [facility] Nitrite, Urine Dipstick Negative Negative [facility] Leukocytes, Urine Dipstick Negative Negative [facility] Appearance, Urine Dipstick Clear Clear [facility] Specific [place] Urine Automated >1.035(H) 1.002 - 1.030 [facility] Color, Urine Dipstick Straw Yellow [facility] Urine specimen (specimen) 05/23/2019 4:40 PM EDT 05/23/2019 4:49 PM EDT Narrative Resulting Agency Comment Spec In Lab Jake Montaño MD URINE ORDERABLES [facility] [place] [address] documented in this encounter Visit Diagnoses Diagnosis Stenosis of carotid artery, unspecified laterality Stenosis of carotid artery, unspecified laterality documented in this encounter Care Teams Clinical Pharmacist Relationship Specialty Start Date End Date Vanita Churchill, KYARA PCP - General Family Medicine 02/27/19 07/18/24 documented as of this encounter
--- OUTSIDE RECORDS SUMMARY | 2024-08-12 07:38 | XMS_ITS | Encounter Summary ---
[place] [address] Care Team Providers Care Line Tender Flakeboard Name Role Phone Alethea Beal Primary Care Provider + Reason for Visit * Reason Comments Follow-up Encounter Details Date Type Department Care Team (Late st Contact Info) Description 02/16/2018 9:30 AM EDT Office Visit [place] [address] Jake Montaño MD [facility] [place] [address] PVD (peripheral vascular disease) with claudication Social [...] No open lesions on either foot. Labs: Transport [employer] Officer (08/17/17): 0.85 No results available for lipid [...] -con't regular exercise -f/u 6mo with MARIYA Jkae Montaño MD documented in this encounter Plan of Treatment Upcoming Encounters Date Type Department Care Team (Late st Contact Info) Description 02/06/2025 2:40 PM EDT Office Visit Cardiology at [address] [place] [address] Rigoberto Diaz MD [facility] [place] [address] Scheduled Procedures Name Priority Associated Diagnoses Date/Ti [...] unspecified documented in this encounter Care Teams Line Tender Flakeboard Relationship Specialty Start Date End Date Alethea Beal PA PCP - General Orthopaedic Surgery 01/01/18 09/26/18 documented as of this encounter
--- OUTSIDE RECORDS SUMMARY | 2024-08-12 07:38 | XMS_ITS | Encounter Summary ---
[place] [address] Care Team Providers Care Lease Out Worker Name Role Phone Kwesidominguez Vanita Dominguez SPARROW Primary Care Provider [phone] Encounter Details Date Type Department Care Team (Late st Contact Info) Description 01/09/2019 Telephone Sleep Center at [facility] [address] [place] [address] Samantha Su Social History Tobacco [...] to be sure BIPAP RX went to [place] [place] as [facility] is now closed. [facility] documented in this encounter Plan of Treatment Upcoming Encounters Date Type Department Care Team (Late st Contact Info) Description 02/06/2025 2:40 PM EDT Office Visit Cardiology at [address] [place] [address] Rigoberto Diaz MD [facility] [address] [place] [address] Scheduled Procedures Name Priority Associated Diagnoses Date/Ti me EGD, UPPER GI ENDOSCOPY (WRV U 2.09) Incontinence of feces, unspecified fecal incontinence type Dysphagia, unspecified type COLONOSCOPY, DIAGNOSTIC (WRV U 3.26) Incontinence of feces, unspecified fecal incontinence type Dysphagia, unspecified type documented as of this encounter Visit Diagnoses Not on filedocumented in this encounter Care Teams Lease Out Worker Relationship Specialty Start Date End Date Vanita Churchill APRN PCP - General Family Medicine 02/27/19 07/18/24 documented as of this encounter
--- OUTSIDE RECORDS SUMMARY | 2024-08-12 07:38 | XMS_ITS | Encounter Summary ---
Author Organization [facility] [place] [address] Care Team Providers Care Flexographic Press Operator Name Role Phone Alethea Beal Primary Care Provider + Encounter Details Date Type Department Care Team (Late st Contact Info) Description 02/16/2018 Orders [place] [phone] Delmis Camargo CMA Atherosclerotic PVD with intermittent [...] PM EDT Office Visit Cardiology at [address] [phone] Rigoberto Diaz MD [facility] [address] [place] [address] Scheduled Procedures Name Priority Associated Diagnoses Date/Ti me EGD, UPPER GI ENDOSCOPY (WRV U 2.09) Incontinence of feces, unspecified fecal incontinence type Dysphagia, unspecified type COLONOSCOPY, DIAGNOSTIC (WRV U 3.26) Incontinence of feces, unspecified fecal incontinence type Dysphagia, unspecified type documented as of this encounter Results * MARIYA, legs, multiple levels (09/27/2018 8:32 AM EDT) VB Text Report Department: Vascular Surgery Lab Patient: [id number] (LINDSEY FIGUEREDO) CPT: 26095 ICD10: I73.9;I70.219 Referring Physician: DOROTA MONTAÑO MD [...] 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
--- OUTSIDE RECORDS SUMMARY | 2024-08-12 07:38 | XMS_ITS | Encounter Summary ---
[place] [address] Care Team Providers Care Mixing Machine Attendant Name Role Phone Alethea Beal Primary Care Provider + Encounter Details Date Type Department Care Team (Latest Contact Info) Description 02/16/2018 8:41 AM EDT - 02/16/2018 11:59 PM EDT Hospital En[place] [phone] Marycruz Wagner [place] Claudication in peripheral vascular [...] Indications: Hypothyroidism 10/11/2022 fluticasone (FLONASE) 50 mcg/actuation [place], SuspensionIndications: Seasonal allergic rhinitis 2 sprays by [...] PM EDT Office Visit Cardiology at [address] [place] [address] Rigoberto Diaz MD [facility] [place] [address] Scheduled Procedures Name Priority Associated Diagnoses Date/Ti [...] Text Report Department: Vascular Surgery Lab Patient: [id number] (LINDSEY MEHTA) CPT: 41169 ICD10: I73.9 Referring Physician: DOROTA MONTAÑO MD ?? Phone: Indications: ?? S/P bilateral iliac stenting and L ENGINE BUILDUP MECHANIC endarterectomy Diabetes mellitus: ??No ICD10 Diagnosis Code: [...] unspecified documented in this encounter Care Teams Mixing Machine Attendant Relationship Specialty Start Date End Date Alethea Beal PA PCP - General Orthopaedic Surgery 01/01/18 09/26/18 documented as of this encounter
--- OUTSIDE RECORDS SUMMARY | 2024-08-12 07:38 | XMS_ITS | Encounter Summary ---
[place] [address] Care Team Providers Care Tester Rocket Engine Name Role Phone Vanita Churchill APRN Primary Care Provider [phone] Reason for Referral * Diagnostic Test (Routine) - Closed Specialty Diagnoses / Procedures Referred By Emy castillo Referred To Contact Radiology Diagnoses Stenosis of carotid artery, unspecified laterality Procedures CT Angiogram Carotids & [place] Prerna Harmon MD [facility] [place] [address] [facility] [place] [address] Referral ID Status Reason Start Date Expiration Date V isits Requested Visits Authorized [id number] Closed Specialty Service Requested 05/21/2019 05/20/2020 1 1 Reason for Visit * Consultation (Routine) - Specialty Diagnoses / Procedures Referred By Emy t Referred To Contact Vascular Surgery Diagnoses Hyperlipidemia, unspecified hyperlipidemia Vanita Churchill, BUSINESS SYSTEM CONSULTANT [address] [place] [address] [facility] [place] [address] [place] [address] Referral ID Status Reason Start Date Expiration Date V isits Requested Visits Authorized [id number] Consult, Test & Treat Connection Center PCP Updated and/or Approved 04/29/2019 10/29/2019 6 6 Encounter Details Date Type Department Care Team (Late st Contact Info) Description 05/21/2019 1:00 PM EDT Office [place] [address] Prerna Harmon MD [facility] [place] [address] Stenosis of carotid artery, unspecified laterality Social [...] , Rfl: ??? fluticasone (FLONASE) 50 mcg/actuation [place], Suspension, 2 sprays by Each Nare route [...] Text Report Department: Vascular Surgery Lab Patient: [id number] (LINDSEY FIGUEREDO) CPT: 27217 ICD10: I65.29 Referring Physician: STEPHEN EDUARDO Indications: [...] PM EDT Office Visit Cardiology at [address] [place] [address] Rigoberto Diaz MD [facility] [address] Scheduled Procedures Name Priority Associated Diagnoses Date/Ti me EGD, UPPER GI ENDOSCOPY (WRV U 2.09) Incontinence of feces, unspecified fecal incontinence type Dysphagia, unspecified type COLONOSCOPY, DIAGNOSTIC (WRV U 3.26) Incontinence of feces, unspecified fecal incontinence type Dysphagia, unspecified type documented as of this encounter Results * CT Angiogram Carotids & [place] (05/23/2019 3:55 PM EDT) Anatomical [...] AM EDT EXAMINATION: CT ANGIOGRAM CAROTIDS AND [place] CLINICAL HISTORY: Carotid Disease TECHNIQUE: [...] - 05/24/2019 EXAMINATION: CT ANGIOGRAM CAROTIDS AND [place] CLINICAL HISTORY: Carotid Disease TECHNIQUE: [...] number below. Electronically signed by: Eugenie Calvert [facility] ([phone]),at 05/24/2019 10:01 AM Prerna Harmon MD IMG CT ORDERABL ES * EKG 12 Lead (05/21/2019 2:39 PM EDT) Ventricular rate 71 BPM MUSE SYSTEM Atrial Rate 71 BPM MUSE SYSTEM P-R Interval 146 ms MUSE SYSTEM QRS Duration 122 ms MUSE SYSTEM Q-T Interval 422 ms MUSE SYSTEM QTC Calculated (Bezet) 458 ms MUSE SYSTEM Calculated P [place] 64 degrees MUSE SYSTEM Calculated R [place] -31 degrees MUSE SYSTEM Calculated T [place] 34 degrees MUSE SYSTEM INTERPRETATION Normal sinus [...] Panel (non-fasting) (05/21/2019 2:13 PM EDT) Glucose 127 65 - 199 mg/dL [facility] Comment:Diabetes: >=200 mg/d L plus symptoms Blood Urea Nitrogen 18 8 - 18 mg/dL [facility] Creatinine 1.04 0.70 - 1.20 mg/dL [facility] Sodium 138 135 - 145 mmol/L [facility] Potassium 4.1 3.5 - 5.0 mmol/L [facility] Comment: Please note: ??Patients with WBC >100,000 may have falsely elevated Potassium levels. ??For accurate Potassium quantification in these patients send serum separator tube (gold top) for subsequent determinations. ??Contact the Clinical Chemistry Laboratory if there are any questions. Chloride 98 98 - 107 mmol/L [facility] Carbon Dioxide 26 22 - 31 mmol/L [facility] Anion Gap 14 5 - 15 mmol/L [facility] Calcium 10.0 8.5 - 10.5 mg/dL [facility] Est Glomerular Filtration Rate 54(L) >=60 mL/min/1. 73 m?? [facility] Comment: The eGFR was calculated using the CKD-EPI equation. As with all creatinine based estimates of kidney function, eGFR values calculated with the CKD-EPI equation are not accurate in patients with acute kidney failure, extremes of body mass or the acutely ill. [email or web address] eGFR 63 >=60 mL/min/1. 73 m?? [facility] Comment: The eGFR was calculated using the CKD-EPI equation. As with all creatinine based estimates of kidney function, eGFR values calculated with the CKD-EPI equation are not accurate in patients with acute kidney failure, extremes of body mass or the acutely ill. [email or web address] Blood specimen (specimen) 05/21/2019 2:13 PM EDT 05/21/2019 2:34 PM EDT Narrative Resulting Agency Comment Spec In Lab Prerna Harmon MD CHEMISTRY ORDER TANA [facility] [place] [address] * (ABNORMAL) Hemogram (05/21/2019 2:13 PM EDT) White Blood Cell 11.5(H) 4.0 - 9.5 x10(3)/mc L [facility] Red Blood Cell 3.92(L) 4.00 - 5.21 x10(6)/mc L [facility] Hemoglobin 13.3 11.7 - 15.5 gm/dL [facility] Hematocrit 39.4 35.7 - 45.8 % [facility] Mean Cell Volume 100.5(H) 82.6 - 94.4 fL [facility] Mean Cell Hemoglobin 33.9(H) 27.1 - 32.0 pg [facility] Mean Cell Hemoglobin Concentration 33.8 31.7 - 35.0 gm/dL [facility] Platelet 260 145 - 357 x10(3)/mc L [facility] RDW Standard Deviation 45.6 37.0 - 46.0 fL [facility] RDW coefficient of variation 12.1 11.5 - 14.1 % [facility] Mean Platelet Volume 9.9 7.6 - 12.9 fL [facility] NRBC% auto 0.0 % [facility] NRBC Absolute 0.000 0.000 - 0.000 x10(3)/ L [facility] Blood specimen (specimen) 05/21/2019 2:13 PM EDT 05/21/2019 2:34 PM EDT Narrative Resulting Agency Comment Spec In Lab Prerna Harmon MD [facility]ATOLOGY [facility] Organization Address City/State/[facility] Co de Phone Number [facility] [place] [address] documented in this encounter Visit Diagnoses Diagnosis Stenosis of carotid artery, unspecified laterality Stenosis of carotid artery, unspecified laterality documented in this encounter Care Teams Tester Rocket Engine Relationship Specialty Start Date End Date Vanita Chruchill APRN PCP - General Family Medicine 02/27/19 07/18/24 documented as of this encounter
--- OUTSIDE RECORDS SUMMARY | 2024-08-12 07:38 | XMS_ITS | Encounter Summary ---
[place] [address] Care Team Providers Care Collector Of Aquarium Specimens Name Role Phone Demetra Goff APRN Primary Care Provider [phone] Encounter Details Date Type Department Care Team (Late st Contact Info) Description 12/27/2017 Telephone Sleep Center at [facility] [address] [place] [phone] Josselin Benson, RN Social History Tobacco Use [...] PM EDT Office Visit Cardiology at [address] [place] [address] Rigoberto Diaz MD [facility] [address] [place] [address] Scheduled Procedures Name Priority Associated Diagnoses Date/Ti me EGD, UPPER GI ENDOSCOPY (WRV U 2.09) Incontinence of feces, unspecified fecal incontinence type Dysphagia, unspecified type COLONOSCOPY, DIAGNOSTIC (WRV U 3.26) Incontinence of feces, unspecified fecal incontinence type Dysphagia, unspecified type documented as of this encounter Visit Diagnoses Not on filedocumented in this encounter Care Teams Collector Of Aquarium Specimens Relationship Specialty Start Date End Date Demetra Goff APRN PCP - General 10/19/12 12/31/17 documented as of this encounter
--- OUTSIDE RECORDS SUMMARY | 2024-08-12 07:38 | XMS_ITS | Encounter Summary ---
Author Organization [facility]ly [facility] [place] [address] Care Team Providers Care Pest Control Applicator Name Role Phone None Primary Care Provider Unavailabl e Encounter Details Date Type Department Care Team (Late st Contact Info) Description 01/04/2019 Telephone Sleep Center at [facility] [address] [place] [phone] Lori Miller Social History Tobacco Use Types [...] PM EDT Office Visit Cardiology at [address] [place] [address] Rigoberto Diaz MD [facility] [address] [address] Scheduled Procedures Name Priority Associated Diagnoses Date/Ti me EGD, UPPER GI ENDOSCOPY (WRV U 2.09) Incontinence of feces, unspecified fecal incontinence type Dysphagia, unspecified type COLONOSCOPY, DIAGNOSTIC (WRV U 3.26) Incontinence of feces, unspecified fecal incontinence type Dysphagia, unspecified type documented as of this encounter Visit Diagnoses Not on filedocumented in this encounter Care Teams Pest Control Applicator Relationship Specialty Start Date End Date None None PCP - General 09/27/18 02/26/19 documented as of this encounter
--- OUTSIDE RECORDS SUMMARY | 2024-08-12 07:38 | XMS_ITS | Encounter Summary ---
[place] [address] Care Team Providers Care Nitroglycerin Supervisor Name Role Phone KwesiVanita mix Omar SPARROW Primary Care Provider [phone] Reason for Visit * Reason Onset Date Comments Other 05/22/2019 Encounter Details Date Type Department Care Team (Late st Contact Info) Description 05/22/2019 Telephone [place] [phone] Demetra Alvarez Other Social History Tobacco Use [...] PM EDT Office Visit Cardiology at [address] [place] [address] Rigoberto Diaz MD [facility] [place] [address] Scheduled Procedures Name Priority Associated Diagnoses Date/Ti me EGD, UPPER GI ENDOSCOPY (WRV U 2.09) Incontinence of feces, unspecified fecal incontinence type Dysphagia, unspecified type COLONOSCOPY, DIAGNOSTIC (WRV U 3.26) Incontinence of feces, unspecified fecal incontinence type Dysphagia, unspecified type documented as of this encounter Visit Diagnoses Not on filedocumented in this encounter Care Teams Nitroglycerin Supervisor Relationship Specialty Start Date End Date Vanita Churchill, MAP DRAFTER PCP - General Family Medicine 02/27/19 07/18/24 documented as of this encounter
--- OUTSIDE RECORDS SUMMARY | 2024-08-12 07:38 | XMS_ITS | Encounter Summary ---
[place] [address] Care Team Providers Care Doughnut Machine Operator Name Role Phone Crane, Demetra Combs APRN Primary Care Provider [phone] Reason for Visit * Reason Comments Wound Check PT HERE FOR POST OP INFECTION Encounter Details Date Type Department Care Team (Late st Contact Info) Description 08/24/2017 10:30 AM EDT Office Visit [place] [address] Jake Montaño MD [facility] [place] [address] PVD (peripheral vascular disease) with claudication Social [...] PM EDT Office Visit Cardiology at [address] [place] [address] Rigoberto Diaz MD [facility] [place] [address] Scheduled Procedures Name Priority Associated Diagnoses Date/Ti [...] unspecified documented in this encounter Care Teams Doughnut Machine Operator Relationship Specialty Start Date End Date Demetra Goff APRN PCP - General 10/19/12 12/31/17 documented as of this encounter
--- OUTSIDE RECORDS SUMMARY | 2024-08-12 07:38 | XMS_ITS | Encounter Summary ---
[place] [address] Care Team Providers Care Balloon Design Printer Name Role Phone None Primary Care Provider Unavailabl e Encounter Details Date Type Department Care Team (Late st Contact Info) Description 12/31/2018 Orders Only Sleep Center at [facility] [address] [place] [address] Alley Johnson, LATENT FINGERPRINT EXAMINER [facility] [place] [address] CHEMA treated with BiPAP Social History Tobacco [...] replacement BPAP machine. Placed order today to [facility]. She will need call for BPAP compliance 61-91 days after machine setup. ALLEY JOHNSON APRN documented in this encounter Plan of Treatment Upcoming Encounters Date Type Department Care Team (Late st Contact Info) Description 02/06/2025 2:40 PM EDT Office Visit Cardiology at [address] [place] [address] Rigoberto Diaz MD [facility] [place] [address] Scheduled Procedures Name Priority Associated Diagnoses Date/Ti me EGD, UPPER GI ENDOSCOPY (WRV U 2.09) Incontinence of feces, unspecified fecal incontinence type Dysphagia, unspecified type COLONOSCOPY, DIAGNOSTIC (WRV U 3.26) Incontinence of feces, unspecified fecal incontinence type Dysphagia, unspecified type documented as of this encounter Visit Diagnoses Diagnosis CHEMA treated with BiPAP documented in this encounter Care Teams Balloon Design Printer Relationship Specialty Start Date End Date None None PCP - General 09/27/18 02/26/19 documented as of this encounter
--- OUTSIDE RECORDS SUMMARY | 2024-08-12 07:38 | XMS_ITS | Encounter Summary ---
Author Organization [facility] [place] [address] Care Team Providers Care Drill Presser Name Role Phone KwesiVanita mix Omar SPARROW Primary Care Provider [phone] Encounter Details Date Type Department Care Team (Late st Contact Info) Description 01/09/2019 Telephone Sleep Center at [facility] [address] [place] [address] Samantha Su Social History Tobacco [...] and confirmed this order is with the [place], [place] office. However, it is only the retail store in [facility] That is closed, thus, if she would like to go to [facility] vs. [place] she can. These arrangements can be made when RT contacts pt. To set up appt. kmb documented in this encounter Plan of Treatment Upcoming Encounters Date Type Department Care Team (Late st Contact Info) Description 02/06/2025 2:40 PM EDT Office Visit Cardiology at [address] [place] [address] Rigoberto Diaz MD [facility] [place] [address] Scheduled Procedures Name Priority Associated Diagnoses Date/Ti me EGD, UPPER GI ENDOSCOPY (WRV U 2.09) Incontinence of feces, unspecified fecal incontinence type Dysphagia, unspecified type COLONOSCOPY, DIAGNOSTIC (WRV U 3.26) Incontinence of feces, unspecified fecal incontinence type Dysphagia, unspecified type documented as of this encounter Visit Diagnoses Not on filedocumented in this encounter Care Teams Drill Presser Relationship Specialty Start Date End Date Vanita Churchill APRN PCP - General Family Medicine 02/27/19 07/18/24 documented as of this encounter
--- OUTSIDE RECORDS SUMMARY | 2024-08-12 07:38 | XMS_ITS | Encounter Summary ---
[place] [address] Care Team Providers Care Ben Day Artist Name Role Phone Alethea Beal Primary Care Provider + Encounter Details Date Type Department Care Team (Late st Contact Info) Description 08/02/2018 10:30 AM EDT Office Visit Sleep Center at [facility] [address] [place] [address] Alley Johnson APRN [facility] [place] [address] CHEMA treated with BiPAP Social History Tobacco [...] drive if drowsy, if drowsy while driving, truss puller helper and take a nap. --Call our clinic [...] HPI continues below. Sleep Study: 02/07/2008 at [facility] AHI: 28/hr, supine index was 29/hour Wt: 192.4lbs Titration at [facility] on 03/08/2008, Wt: 194.6lbs BPAP Titration 03/28/17, Wt: 214lbs Recommendations: 1. Trial of BIPAP /. Consider chinstrap if felt to be needed. 2. Follow up with her PCP as to the SVT noted of unclear significance. 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 to manager chemistry, thinks it was medication; cardiology found lack [...] her mouth anyway Humidifier Setting: adjusts HCC: [facility]; getting supplies Snoring: Doesn't know, other person Dry Mouth: Sometimes, adjusts humidity; uses Biotene rinse, hasn't tried room humidifier Mouth Breathing: Yes, has FFM, breathes through her nose when she goes to sleep but probably mouth breathes at night Patient wears top dentures to sleep Daytime Symptoms: Patient-reported last 4 scores: [facility] 05/03/2016 02/06/2017 12/08/2017 08/02/2018 [facility] 6 1 4 3 Insomnia Severity [...] Indications: Hypothyroidism ??? fluticasone (FLONASE) 50 mcg/actuation [place], Suspension 2 sprays by Each Nare route [...] drive if drowsy, if drowsy while driving, truss puller helper and take a nap. --Call our clinic [...] PM EDT Office Visit Cardiology at [address] [place] [address] Rigoberto Diaz MD [facility] [place] [address] Scheduled Procedures Name Priority Associated Diagnoses Date/Ti me EGD, UPPER GI ENDOSCOPY (WRV U 2.09) Incontinence of feces, unspecified fecal incontinence type Dysphagia, unspecified type COLONOSCOPY, DIAGNOSTIC (WRV U 3.26) Incontinence of feces, unspecified fecal incontinence type Dysphagia, unspecified type documented as of this encounter Visit Diagnoses Diagnosis CHEMA treated with BiPAP documented in this encounter Care Teams Ben Day Artist Relationship Specialty Start Date End Date Alethea Beal PA PCP - General Orthopaedic Surgery 01/01/18 09/26/18 documented as of this encounter
--- OUTSIDE RECORDS SUMMARY | 2024-08-12 07:38 | XMS_ITS | Encounter Summary ---
[place] [address] Care Team Providers Care Electrical Cad Technician Name Role Phone Vanita Churchill APRN Primary Care Provider [phone] Reason for Visit * Consultation (Routine) - Specialty Diagnoses / Procedures Referred By Emy castillo Referred To Contact Vascular Surgery Diagnoses Hyperlipidemia, unspecified hyperlipidemia Vanita Churchill APRN [address] [place] [address] [facility] [address] [place] [address] Referral ID Status Reason Start Date Expiration Date V isits Requested Visits Authorized [id number] Consult, Test & Treat Connection Center PCP Updated and/or Approved 04/29/2019 10/29/2019 6 6 Encounter Details Date Type Department Care Team (Late st Contact Info) Description 05/21/2019 10:30 AM EDT Tech [place] [address] Marycruz Wagner [place] Stenosis of [...] PM EDT Office Visit Cardiology at [address] [place] [address] Rigoberto Diaz MD [facility] [place] [address] Scheduled Procedures Name Priority Associated Diagnoses Date/Ti [...] Text Report Department: Vascular Surgery Lab Patient: [id number] ([facility]) CPT: 95320 ICD10: I65.29 Referring Physician: STEPHEN EDUARDO ?? [...] documented in this encounter Care Teams Electrical Cad Technician Relationship Specialty Start Date End Date Vanita Churchill, CIRCULAR STUFFER PCP - General Family Medicine 02/27/19 07/18/24 documented as of this encounter
--- OUTSIDE RECORDS SUMMARY | 2024-08-12 07:38 | XMS_ITS | Encounter Summary ---
Author Organization [facility] [place] [address] Care Team Providers Care Traffic Sergeant Name Role Phone Vanita Churchill FURNACE DOOR TENDER Primary Care Provider [phone] Encounter Details Date Type Department Care Team (Latest Contact Info) Description 05/21/2019 2:20 PM EDT [place] [address] Stenosis of carotid artery, unspecified [...] PM EDT Office Visit Cardiology at [address] [phone] Rigoberto Diaz MD [facility] [address] [address] Scheduled Procedures Name Priority Associated Diagnoses Date/Ti [...] carotid artery, unspecified laterality BASIC METABOLIC PANEL Routine 05/21/2019 2:13 PM EDT Stenosis of carotid artery, unspecified laterality documented in this encounter Results * (ABNORMAL) Hemogram (05/21/2019 2:13 PM EDT) White Blood Cell 11.5(H) 4.0 - 9.5 x10(3)/mc L [facility] Red Blood Cell 3.92(L) 4.00 - 5.21 x10(6)/mc L [facility] Hemoglobin 13.3 11.7 - 15.5 gm/dL [facility] Hematocrit 39.4 35.7 - 45.8 % [facility] Mean Cell Volume 100.5(H) 82.6 - 94.4 fL [facility] Mean Cell Hemoglobin 33.9(H) 27.1 - 32.0 pg [facility] Mean Cell Hemoglobin Concentration 33.8 31.7 - 35.0 gm/dL [facility] Platelet 260 145 - 357 x10(3)/mc L [facility] RDW Standard Deviation 45.6 37.0 - 46.0 [facility] RDW coefficient of variation 12.1 11.5 - 14.1 % [facility] Mean Platelet Volume 9.9 7.6 - 12.9 fL [facility] NRBC% auto 0.0 % [facility] NRBC Absolute 0.000 0.000 - 0.000 x10(3)/mc L [facility] Blood specimen (specimen) 05/21/2019 2:13 PM EDT 05/21/2019 2:34 PM EDT Narrative Resulting Agency Comment Spec In Lab Prerna Harmon MD HEMATOLOGY RAYMOND STOVALL [facility] [place] [address] * (ABNORMAL) Basic Metabolic Panel (non-fasting) (05/21/2019 2:13 PM EDT) Glucose 127 65 - 199 mg/dL [facility] Comment:Diabetes: >=200 mg/d L plus symptoms Blood Urea Nitrogen 18 8 - 18 mg/dL [facility] Creatinine 1.04 0.70 - 1.20 mg/dL [facility] Sodium 138 135 - 145 mmol/L [facility] Potassium 4.1 3.5 - 5.0 mmol/L [facility] Comment: Please note: ??Patients with WBC >100,000 may have falsely elevated Potassium levels. ??For accurate Potassium quantification in these patients send serum separator tube (gold top) for subsequent determinations. ??Contact the Clinical Chemistry Laboratory if there are any questions. Chloride 98 98 - 107 mmol/L [facility] Carbon Dioxide 26 22 - 31 mmol/L [facility] Anion Gap 14 5 - 15 mmol/L [facility] Calcium 10.0 8.5 - 10.5 mg/dL [facility] Est Glomerular Filtration Rate 54(L) >=60 mL/min/1. 73 m?? [facility] Comment: The eGFR was calculated using the CKD-EPI equation. As with all creatinine based estimates of kidney function, eGFR values calculated with the CKD-EPI equation are not accurate in patients with acute kidney failure, extremes of body mass or the acutely ill. [email or web address] eGFR 63 >=60 mL/min/1. 73 m?? [facility] Comment: The eGFR was calculated using the CKD-EPI equation. As with all creatinine based estimates of kidney function, eGFR values calculated with the CKD-EPI equation are not accurate in patients with acute kidney failure, extremes of body mass or the acutely ill. [email or web address] Blood specimen (specimen) 05/21/2019 2:13 PM EDT 05/21/2019 2:34 PM EDT Narrative Resulting Agency Comment Spec In Lab Prerna Harmon MD CHEMISTRY ORDER TANA [facility] [place] [address] documented in this encounter Visit Diagnoses Diagnosis Stenosis of carotid artery, unspecified laterality documented in this encounter Care Teams Traffic Sergeant Relationship Specialty Start Date End Date Vanita Churchill APRN PCP - General Family Medicine 02/27/19 07/18/24 documented as of this encounter
--- OUTSIDE RECORDS SUMMARY | 2024-08-12 07:38 | XMS_ITS | Encounter Summary ---
[place] [address] Care Team Providers Care Escort Blind Name Role Phone Vanita Churchill PAINTER AIRCRAFT Primary Care Provider [phone] Encounter Details Date Type Department Care Team (Latest Contact Info) Description 05/21/2019 2:00 PM EDT Clinical [place] [phone] Stenosis of carotid artery, unspecified laterality Social [...] PM EDT Office Visit Cardiology at [address] [place] [address] Rigoberto Diaz MD [facility] [place] [address] Scheduled Procedures Name Priority Associated Diagnoses Date/Ti [...] (Bezet) 458 ms MUSE SYSTEM Calculated P [place] 64 degrees MUSE SYSTEM Calculated R [place] -31 degrees MUSE SYSTEM Calculated T [place] 34 degrees MUSE SYSTEM INTERPRETATION Normal sinus [...] laterality documented in this encounter Care Teams Escort Blind Relationship Specialty Start Date End Date Vanita Churchill APRN PCP - General Family Medicine 02/27/19 07/18/24 documented as of this encounter
--- OUTSIDE RECORDS SUMMARY | 2024-08-12 07:38 | XMS_ITS | Encounter Summary ---
Author [place] [address] Care Team Providers Care Installer Name Role Phone Demetra Goff APRN Primary Care Provider [phone] Encounter Details Date Type Department Care Team (Latest Contact Info) Description 09/15/2017 9:40 AM EDT - 09/15/2017 11:59 PM EDT Hospital Encounter [place] [phone] [place] Claudication in peripheral vascular [...] Indications: Hypothyroidism 10/11/2022 fluticasone (FLONASE) 50 mcg/actuation [place], SuspensionIndications :Seasonal allergic rhinitis 2 sprays by [...] PM EDT Office Visit Cardiology at [address] [address] Rigoberto Diaz MD [facility] [place] [address] Scheduled Procedures Name Priority Associated Diagnoses Date/Ti [...] Text Report Department: Vascular Surgery Lab Patient: [id number] ([facility]) CPT: 59247 ICD10: I73.9 Referring Physician: DOROTA MONTAÑO MD [...] unspecified documented in this encounter Care Teams Installer Relationship Specialty Start Date End Date Demetra Goff, MASTER BREWER PCP - General 10/19/12 12/31/17 documented as of this encounter
--- OUTSIDE RECORDS SUMMARY | 2024-08-12 07:38 | XMS_ITS | Encounter Summary ---
[place] [address] Care Team Providers Care Sap Senior Developer Name Role Phone Demetra Goff APRN Primary Care Provider [phone] Encounter Details Date Type Department Care Team (Late st Contact Info) Description 08/18/2017 Orders Only Vascular [place] [address] Ella Marino APRN [facility] [place] [address] Social History Tobacco Use Types Packs/Day Years [...] PM EDT Office Visit Cardiology at [address] [place] [address] Rigoberto Diaz MD [facility] [place] [address] Scheduled Procedures Name Priority Associated Diagnoses Date/Ti me EGD, UPPER GI ENDOSCOPY (WRV U 2.09) Incontinence of feces, unspecified fecal incontinence type Dysphagia, unspecified type COLONOSCOPY, DIAGNOSTIC (WRV U 3.26) Incontinence of feces, unspecified fecal incontinence type Dysphagia, unspecified type documented as of this encounter Visit Diagnoses Not on filedocumented in this encounter Care Teams Sap Senior Developer Relationship Specialty Start Date End Date Demetra Goff APRN PCP - General 10/19/12 12/31/17 documented as of this encounter
--- OUTSIDE RECORDS SUMMARY | 2024-08-12 07:38 | XMS_ITS | Encounter Summary ---
[place] [address] Care Team Providers Care Curriculum Developer Name Role Phone Demetra Goff APRN Primary Care Provider [phone] Reason for Visit * Reason Comments Circulatory Problem Encounter Details Date Type Department Care Team (Late st Contact Info) Description 09/15/2017 11:15 AM EDT Office Visit [place] [address] Dorota Montaño MD [facility] [place] [address] Claudication in peripheral vascular disease Social History [...] Reading Time Taken Comments Blood Pressure 130/66 09/15/2017 11:23 AM EDT Pulse 77 09/15/2017 11:23 AM EDT Temperature - - Respiratory Rate - - Oxygen Saturation - - Inhaled Oxygen Concentration - - Weight 90.3 kg (199 lb) 09/15/2017 11:23 AM EDT Height 162.6 cm (5' 4) 09/15/2017 11:23 AM EDT Body Mass Index 34.16 09/15/2017 11:23 AM EDT documented in this encounter Progress Notes * Dorota Montaño MD - 09/15/2017 11:15 AM EDT Vascular Surgery Clinic Visit September 20, 2017 CC: Patient is a 66 y.o. female who is here for postoperative visit following L femoral endart/B iliac stent placement on 08/15/17. 08/15/17 L iliofemoral endarterectomy, B TRE stent placement (8x38mm BE) for short distance claudication Presents for scheduled follow up visit. Doing well and states she's had significant improvement in her claudication symptoms. No rest pain or non-healing wounds. Left groin wound healing without issues. ROS is negative for history of CAD or CP. Has baseline SOB from COPD. Does not use home O2 and denies hospitalizations for COPD exacerbations. No history suggestive of stroke, TIA, or amaurosis fugax. No history of DM. Is a past smoker, having quit in 2003. ?? PMH: HTN, COPD, GERD, lap hiatal hernia repair, bebo All: latex Meds include: ASA, lisinopril, HCTZ, ezetimibe-simvastatin, flovent, duoneb, synthroid, folate, celexa ?? Tob: quit '04 ?? Physical Exam: On exam, she is in NAD, RRR, CTA B, Abd soft/NT/ND. Palpable carotid and radial pulses bilaterally. Left groin incision healing well. No open lesions on either foot. ?? Labs: Repair Department Manager (08/17/17): 0.85 Imaging studies: I have personally reviewed the following imaging studies. Treadmill test (09/15/17): Rest 1 R Ankle 103 108 L Ankle 106 118 Brachial 123 130 R MARIYA 0.84 0.83 L MARIYA 0.86 0.91 Interpretation: Mild lower extremity arterial occlusive disease at rest and no significant change in ankle/brachial index following 3 minute treadmill exercise. No evidence of exercise induced lower extremity peripheral arterial disease??during this limited exam. Ambulation was limited by dyspnea, not by intermittent claudication. A/P: 66yo female s/p L iliofemoral endarterectomy and B TRE stents for short distance claudication,now with significant improvement in symptoms and ABIs. -con't asa and statin -f/u 6mo with MARIYA Dorota Montaño MD documented in this encounter Plan of Treatment Upcoming Encounters Date Type Department Care Team (Late st Contact Info) Description 02/06/2025 2:40 PM EDT Office Visit Cardiology at [address] [place] [address] Rigoberto Diaz MD [facility] [place] [address] Scheduled Procedures Name Priority Associated Diagnoses Date/Ti me EGD, UPPER GI ENDOSCOPY (WRV U 2.09) Incontinence of feces, unspecified fecal incontinence type Dysphagia, unspecified type COLONOSCOPY, DIAGNOSTIC (WRV U 3.26) Incontinence of feces, unspecified fecal incontinence type Dysphagia, unspecified type documented as of this encounter Results * MARIYA, legs, multiple levels (02/16/2018 8:59 AM EDT) VB Text Report Department: Vascular Surgery Lab Patient: [id number] (FIGUEREDOOBDULIA MURILLOSA) CPT: 80586 ICD10: I73.9 Referring Physician: DOROTA MONTAÑO MD ?? Phone: Indications: ?? S/P bilateral iliac stenting and L PHLEBOTOMY SERVICES REPRESENTATIVE endarterectomy Diabetes mellitus: ??No ICD10 Diagnosis Code: [...] unspecified documented in this encounter Care Teams Curriculum Developer Relationship Specialty Start Date End Date Demetra Goff APRN PCP - General 10/19/12 12/31/17 documented as of this encounter
--- OUTSIDE RECORDS SUMMARY | 2024-08-12 07:38 | XMS_ITS | Encounter Summary ---
[place] [address] Care Team Providers Care Otolaryngology Physician Name Role Phone Vanita Churchill MANAGER HIV Primary Care Provider [phone] Encounter Details Date Type Department Care Team (Latest Contact Info) Description 02/27/2019 9:00 AM EDT Tech [place] [phone] Avel Miller, RVT Atherosclerotic PVD with intermittent [...] Office Visit Cardiology at [address] [phone] Rigoberto Diaz MD [facility] [address] [place] [address] Scheduled Procedures Name Priority Associated Diagnoses Date/Ti [...] Text Report Department: Vascular Surgery Lab Patient: [id number] (LINDSEY FIGUEREDO) CPT: 50925 ICD10: I70.219 Referring Physician: DOROTA MONTAÑO MD [...] Atherosclerotic PVD with intermittent claudication Atherosclerosis of [place] arteries of the extremities with intermittent claudication documented in this encounter Care Teams Otolaryngology Physician Relationship Specialty Start Date End Date Vanita Churchill, KYARA PCP - General Family Medicine 02/27/19 07/18/24 documented as of this encounter
--- OUTSIDE RECORDS SUMMARY | 2024-08-12 07:38 | XMS_ITS | Encounter Summary ---
[place] [address] Care Team Providers Care Endless Track Vehicle Supervisor Name Role Phone Vanita Churchill Omar SPARROW Primary Care Provider [phone] Encounter Details Date Type Department Care Team (Late st Contact Info) Description 05/23/2019 4:00 PM EDT Office Visit [place] [phone] Jake Montaño MD [facility] [place] [address] Stenosis of right carotid artery Social History [...] No open lesions on either foot. Labs: Pipe Processor (05/21/19): 1.04 No results available for lipid [...] PM EDT Office Visit Cardiology at [address] [place] [address] Rigoberto Diaz MD [facility] [place] [address] Scheduled Procedures Name Priority Associated Diagnoses Date/Ti [...] infarction documented in this encounter Care Teams Endless Track Vehicle Supervisor Relationship Specialty Start Date End Date Vanita Churchill, KYARA PCP - General Family Medicine 02/27/19 07/18/24 documented as of this encounter
--- OUTSIDE RECORDS SUMMARY | 2024-08-12 07:38 | XMS_ITS | Encounter Summary ---
[place] [address] Care Team Providers Care Jira Developer Name Role Phone Vanita Churchill Omar SPARROW Primary Care Provider [phone] Encounter Details Date Type Department Care Team (Late st Contact Info) Description 02/27/2019 9:30 AM EDT Office Visit [place] [phone] Jake Montaño MD [facility] [place] [address] PVD (peripheral vascular disease) with claudication Social [...] No open lesions on either foot. Labs: General Repair Mechanic (08/17/17): 0.85 Imaging studies: I have personally [...] PM EDT Office Visit Cardiology at [address] [place] [address] Rigoberto Diaz MD [facility] [place] [address] Scheduled Procedures Name Priority Associated Diagnoses Date/Ti [...] unspecified documented in this encounter Care Teams Jira Developer Relationship Specialty Start Date End Date Vanita Chruchill, KYARA PCP - General Family Medicine 02/27/19 07/18/24 documented as of this encounter
--- OUTSIDE RECORDS SUMMARY | 2024-08-12 07:38 | XMS_ITS | Encounter Summary ---
[place] [address] Care Team Providers Care Process Worker Name Role Phone Kwesidominguez Vanita Nelson APRN Primary Care Provider [phone] Encounter Details Date Type Department Care Team (Late st Contact Info) Description 04/05/2019 2:30 PM EDT Office Visit Sleep Center at [facility] [address] [place] [address] Alley Johnson APRN [facility] [place] [address] CHEMA treated with BiPAP Social History Tobacco [...] drive if drowsy, if drowsy while driving, pull up hand and take a nap. --RTC one year [...] continues below. [place] [facility] [place] [facility] Dr. Robbins's [place]: AHI: 28/hr, supine [...] unclear significance. 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 to weight inspector, thinks it was medication; cardiology found lack [...] opened her mouth anyway Humidifier Setting: adjusts [facility]: [facility] to get machine (that [facility] appt only) [place] Snoring: Doesn't think so Dry Mouth: Sometimes, adjusts humidity; uses Biotene rinse, hasn't tried room humidifier Mouth Breathing: Yes, has FFM, breathes through her nose when she goes to sleep but probably mouth breathes at night Patient wears top dentures to sleep Daytime Symptoms: Patient-reported last 4 scores: [facility] 02/06/2017 12/08/2017 08/02/2018 04/05/2019 [facility] 1 4 3 3 Insomnia Severity [...] Indications: Hypothyroidism ??? fluticasone (FLONASE) 50 mcg/actuation [place], Suspension 2 sprays by Each Nare route [...] drive if drowsy, if drowsy while driving, pull up hand and take a nap. --RTC one year with [place] The patient indicates understanding of these issues and agrees with the plan. Alley Johnson APRN Cc: Vanita Churchill APRN documented in this encounter Plan of Treatment Upcoming Encounters Date Type Department Care Team (Late st Contact Info) Description 02/06/2025 2:40 PM EDT Office Visit Cardiology at [address] [place] [phone] Rigoberto Diaz MD [facility] [place] [address] Scheduled Procedures Name Priority Associated Diagnoses Date/Ti me EGD, UPPER GI ENDOSCOPY (WRV U 2.09) Incontinence of feces, unspecified fecal incontinence type Dysphagia, unspecified type COLONOSCOPY, DIAGNOSTIC (WRV U 3.26) Incontinence of feces, unspecified fecal incontinence type Dysphagia, unspecified type documented as of this encounter Visit Diagnoses Diagnosis CHEMA treated with BiPAP documented in this encounter Care Teams Process Worker Relationship Specialty Start Date End Date Vanita Churchill APRN PCP - General Family Medicine 02/27/19 07/18/24 documented as of this encounter
--- OUTSIDE RECORDS SUMMARY | 2024-08-12 07:38 | XMS_ITS | Encounter Summary ---
[place] [address] Care Team Providers Care Knock Out Hand Name Role Phone None Primary Care Provider Unavailabl e Encounter Details Date Type Department Care Team (Latest Contact Info) Description 09/27/2018 9:00 AM EDT Office [place] [address] Dorota Montaño MD [facility] [place] [address] Atherosclerotic PVD with intermittent claudication Social History [...] No open lesions on either foot. Labs: User Interface Artist (08/17/17): 0.85 No results available for lipid [...] PM EDT Office Visit Cardiology at [address] [place] [phone] Rigoberto Diaz MD [facility] [place] [address] Scheduled Procedures Name Priority Associated Diagnoses Date/Ti me EGD, UPPER GI ENDOSCOPY (WRV U 2.09) Incontinence of feces, unspecified fecal incontinence type Dysphagia, unspecified type COLONOSCOPY, DIAGNOSTIC (WRV U 3.26) Incontinence of feces, unspecified fecal incontinence type Dysphagia, unspecified type documented as of this encounter Results * MARIYA, legs, multiple levels (02/27/2019 9:00 AM EDT) VB Text Report Department: Vascular Surgery Lab Patient: [id number] (BEA CARL) CPT: 97703 ICD10: I70.219 Referring Physician: DOROTA MONTAÑO MD [...] Atherosclerotic PVD with intermittent claudication Atherosclerosis of [place] arteries of the extremities with intermittent claudication documented in this encounter Care Teams Knock Out Hand Relationship Specialty Start Date End Date None None PCP - General 09/27/18 02/26/19 documented as of this encounter
--- OUTSIDE RECORDS SUMMARY | 2024-08-12 07:38 | XMS_ITS | Encounter Summary ---
Author Organization Formerly [facility] [place] [address] Care Team Providers Care Biomaterials Engineer Name Role Phone None Primary Care Provider Unavailabl e Encounter Details Date Type Department Care Team (Late st Contact Info) Description 01/03/2019 Telephone Sleep Center at [facility] [address] [place] [phone] Nohemy Sanchez LPN Social History Tobacco Use [...] PM EDT Office Visit Cardiology at [address] [place] [phone] Rigoberto Diaz MD [facility] [address] [address] Scheduled Procedures Name Priority Associated Diagnoses Date/Ti me EGD, UPPER GI ENDOSCOPY (WRV U 2.09) Incontinence of feces, unspecified fecal incontinence type Dysphagia, unspecified type COLONOSCOPY, DIAGNOSTIC (WRV U 3.26) Incontinence of feces, unspecified fecal incontinence type Dysphagia, unspecified type documented as of this encounter Visit Diagnoses Not on filedocumented in this encounter Care Teams Biomaterials Engineer Relationship Specialty Start Date End Date None None PCP - General 09/27/18 02/26/19 documented as of this encounter
--- OUTSIDE RECORDS SUMMARY | 2024-08-12 07:38 | XMS_ITS | Encounter Summary ---
[place] [address] Care Team Providers Care Medical Tech Name Role Phone Kwesidominguez Vanita Nelson APRN Primary Care Provider [phone] Reason for Referral * Diagnostic Test (Routine) - Closed Specialty Diagnoses / Procedures Referred By Contsky t Referred To Contact Radiology Diagnoses Stenosis of carotid artery, unspecified laterality Procedures CT Angiogram Carotids & [place] Prerna Harmon MD [facility] [place] [address] [facility] [place] [address] Referral ID Status Reason Start Date Expiration Date V isits Requested Visits Authorized [id number] Closed Specialty Service Requested 05/21/2019 05/20/2020 1 1 Reason for Visit * Diagnostic Test (Routine) - Closed Specialty Diagnoses / Procedures Referred By Emy castillo Referred To Contact Radiology Diagnoses Stenosis of carotid artery, unspecified laterality Procedures CT Angiogram Carotids & [place] Prerna Harmon MD [facility] [place] [address] [facility] [place] [address] Referral ID Status Reason Start Date Expiration Date V isits Requested Visits Authorized [id number] Closed Specialty Service Requested 05/21/2019 05/20/2020 1 1 Encounter Details Date Type Department Care Team (Latest Contact Info) Description 05/23/2019 2:28 PM EDT - 05/23/2019 4:39 PM EDT Hospital [place] [address] Prerna Harmon MD [facility] [place] [address] Stenosis of carotid artery, unspecified [...] Indications: Hypothyroidism 10/11/2022 fluticasone (FLONASE) 50 mcg/actuation [place], SuspensionIndications:S easonal allergic rhinitis 2 sprays by Each Nare route daily as needed for Rhinitis. 16 g 3 05/03/2016 03/19/2021 POLYETHYLENE GLYCOL 3350 (MIRALAX ORAL) Take by mouth as needed. 02/05/2024 documented as of this encounter Plan of Treatment Upcoming Encounters Date Type Department Care Team (Late st Contact Info) Description 02/06/2025 2:40 PM EDT Office Visit Cardiology at [address] [place] [address] Rigoberto Diaz MD [facility] [place] [address] Scheduled Procedures Name Priority Associated Diagnoses Date/Ti me EGD, UPPER GI ENDOSCOPY (WRV U 2.09) Incontinence of feces, unspecified fecal incontinence type Dysphagia, unspecified type COLONOSCOPY, DIAGNOSTIC (WRV U 3.26) Incontinence of feces, unspecified fecal incontinence type Dysphagia, unspecified type documented as of this encounter Procedures Procedure Name Priority Date/Time Associated Diagnosis Comments CT CAROTIDS AND UTE [place] OF [place] W CONTRAST Routine 05/23/2019 3:55 PM EDT Stenosis of carotid artery, unspecified laterality documented in this encounter Results * CT Angiogram Carotids & [place] (05/23/2019 3:55 PM EDT) Anatomical [...] AM EDT EXAMINATION: CT ANGIOGRAM CAROTIDS AND UTE [place] OF [place]S CLINICAL HISTORY: Carotid Disease TECHNIQUE: [...] - 05/24/2019 EXAMINATION: CT ANGIOGRAM CAROTIDS AND UTE [place] OF ARE[place] CLINICAL HISTORY: Carotid Disease TECHNIQUE: [...] number below. Electronically signed by: Eugenie Calvert [facility] ([phone]),at 05/24/2019 10:01 AM Prerna Harmon MD IMG [...] mLs documented in this encounter Care Teams Medical Tech Relationship Specialty Start Date End Date Vanita Churchill, COLLISION MECHANIC PCP - General Family Medicine 02/27/19 07/18/24 documented as of this encounter
--- OUTSIDE RECORDS SUMMARY | 2024-08-12 07:38 | XMS_ITS | Encounter Summary ---
[place] [address] Care Team Providers Care Welding Machine Operator Submerged Arc Name Role Phone Vanita Churchill STREET SUPERVISOR Primary Care Provider [phone] Encounter Details Date Type Department Care Team (Late st Contact Info) Description 05/23/2019 4:00 PM EDT Clinical [place] [address] Social History Tobacco Use Types [...] PM EDT Office Visit Cardiology at [address] [place] [address] Rigoberto Diaz MD [facility] [place] [address] Scheduled Procedures Name Priority Associated Diagnoses Date/Ti me EGD, UPPER GI ENDOSCOPY (WRV U 2.09) Incontinence of feces, unspecified fecal incontinence type Dysphagia, unspecified type COLONOSCOPY, DIAGNOSTIC (WRV U 3.26) Incontinence of feces, unspecified fecal incontinence type Dysphagia, unspecified type documented as of this encounter Visit Diagnoses Not on filedocumented in this encounter Care Teams Welding Machine Operator Submerged Arc Relationship Specialty Start Date End Date Vanita Churchill APRN PCP - General Family Medicine 02/27/19 07/18/24 documented as of this encounter
--- OUTSIDE RECORDS SUMMARY | 2024-08-12 07:38 | XMS_ITS | Encounter Summary ---
[place] [address] Care Team Providers Care Cae Engineer Name Role Phone Demetra Goff APRN Primary Care Provider [phone] Encounter Details Date Type Department Care Team (Late st Contact Info) Description 12/08/2017 9:00 AM EST Office Visit Sleep Center at [facility] [address] [place] [address] Alley Johnson APRN [facility] [place] [address] CHEMA treated with BiPAP Social History Tobacco [...] if drowsy, if drowsy while driving, pull through hooker and take a nap. --RTC in 3 [...] HPI continues below. Sleep Study: 02/07/2008 at [facility] AHI: 28/hr, supine index was 29/hour Wt: 192.4lbs Titration at [facility] on 03/08/2008, Wt: 194.6lbs BPAP Titration 03/28/17, Wt: 214lbs Recommendations: 1. Trial of BIPAP . Consider chinstrap if felt to be needed. 2. Follow up with her PCP as to the SVT noted of unclear significance. 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 to public address system mechanic, thinks it was medication; cardiology found lack [...] her mouth anyway Humidifier Setting: adjusts HCC: [facility]; getting supplies Snoring: Doesn't know, other person Dry Mouth: Sometimes, adjusts humidity; uses Biotene rinse Mouth Breathing: Yes, has FFM, breathes through her nose when she goes to sleep but probably mouth breathes at night Patient wears top dentures to sleep Daytime Symptoms: Patient-reported scores: Patient-reported last 4 scores: [facility] 06/13/2014 05/03/2016 02/06/2017 12/08/2017 [facility] 3 6 1 4 Insomnia Severity [...] Indications: Hypothyroidism ??? fluticasone (FLONASE) 50 mcg/actuation [place], Suspension 2 sprays by Each Nare route [...] if drowsy, if drowsy while driving, pull through hooker and take a nap. --RTC in 3 months to check her CHEMA control, mood and sleep The patient indicates understanding of these issues and agrees with the plan. Alley Johnson APRN Cc: Demetra Goff APRN documented in this encounter Plan of Treatment Upcoming Encounters Date Type Department Care Team (Late st Contact Info) Description 02/06/2025 2:40 PM EDT Office Visit Cardiology at [address] [place] [address] Rigoberto Diaz MD [facility] [address] [place] [address] Scheduled Procedures Name Priority Associated Diagnoses Date/Ti me EGD, UPPER GI ENDOSCOPY (WRV U 2.09) Incontinence of feces, unspecified fecal incontinence type Dysphagia, unspecified type COLONOSCOPY, DIAGNOSTIC (WRV U 3.26) Incontinence of feces, unspecified fecal incontinence type Dysphagia, unspecified type documented as of this encounter Visit Diagnoses Diagnosis CHEMA treated with BiPAP documented in this encounter Care Teams Cae Engineer Relationship Specialty Start Date End Date Demetra Goff APRN PCP - General 10/19/12 12/31/17 documented as of this encounter
--- OUTSIDE RECORDS SUMMARY | 2024-08-12 07:38 | XMS_ITS | Encounter Summary ---
Author Organization [facility] [place] [address] Care Team Providers Care Rubber Flap Tuber Machine Operator Name Role Phone HaleDemetra barraza Garret SPARROW Primary Care Provider [phone] Encounter Details Date Type Department Care Team (Late st Contact Info) Description 08/30/2017 Orders [place] [phone] Faith Fritz RN Claudication in peripheral vascular [...] PM EDT Office Visit Cardiology at [address] [phone] Rigoberto Diaz MD [facility] [address] [place] [address] Scheduled Procedures Name Priority Associated Diagnoses Date/Ti [...] Text Report Department: Vascular Surgery Lab Patient: [id number] (LINDSEY FIGUEREDO) CPT: 21035 ICD10: I73.9 Referring Physician: DOROTA MONTAÑO MD [...] unspecified documented in this encounter Care Teams Rubber Flap Tuber Machine Operator Relationship Specialty Start Date End Date Demetra Goff APRN [phone] (work) PCP - General 10/19/12 12/31/17 documented as of this encounter
--- OUTSIDE RECORDS SUMMARY | 2024-08-12 07:38 | XMS_ITS | Encounter Summary ---
[place] [address] Care Team Providers Care Machine Maintenance Technician Name Role Phone None Primary Care Provider Unavailabl e Encounter Details Date Type Department Care Team (Latest Contact Info) Description 09/27/2018 8:30 AM EDT - 09/27/2018 11:59 PM EDT Hospital En[place] [address] [place], [place] Atherosclerotic PVD with intermittent claudication Discharge [...] Indications: Hypothyroidism 10/11/2022 fluticasone (FLONASE) 50 mcg/actuation [place], SuspensionIndications:S easonal allergic rhinitis 2 sprays by Each Nare route daily as needed for Rhinitis. 16 g 3 05/03/2016 03/19/2021 POLYETHYLENE GLYCOL 3350 (MIRALAX ORAL) Take by mouth as needed. 02/05/2024 LACTOBACILLUS RHAMNOSUS GG (CULTURELLE ORAL) Take by mouth daily. 05/21/2019 BETA-CAROTENE,A, W-C & E/MIN (OCUVITE ORAL) Take by mouth. 05/21 albuterol (PROVENTIL HFA;VENTOLIN HFA) 90 mcg/Actuation inhalerIndications:people manager alie obstructive pulmonary disease Inhale 2 puffs into the lungs every 4 hours as needed. Use with spacer Indications: Chronic Obstructive Pulmonary Disease 05/21/2019 ezetimibe-simvastatin (VYTORIN 10-40) 10-40 mg per tablet 10/12/2010 05/21/2019 documented as of this encounter Plan of Treatment Upcoming Encounters Date Type Department Care Team (Late st Contact Info) Description 02/06/2025 2:40 PM EDT Office Visit Cardiology at [address] [place] [address] Rigoberto Diaz MD [facility] [place] [address] Scheduled Procedures Name Priority Associated Diagnoses Date/Ti [...] Text Report Department: Vascular Surgery Lab Patient: [id number] ([facility]) CPT: 82940 ICD10: I73.9;I70.219 Referring Physician: DOROTA MONTAÑO MD [...] Montaño MD VASCULAR ORDERABLES Performing Organization Address City/State/[facility] Co de Phone Number VASCUBASE documented in this encounter Visit Diagnoses Diagnosis Atherosclerotic PVD with intermittent claudication Atherosclerosis of eyak arteries of the extremities with intermittent claudication documented in this encounter Care Teams Machine Maintenance Technician Relationship Specialty Start Date End Date None None PCP - General 09/27/18 02/26/19 documented as of this encounter
--- OUTSIDE RECORDS SUMMARY | 2024-08-12 07:39 | XMS_ITS | Encounter Summary ---
[place] [address] Care Team Providers Care Staff Physician Name Role Phone Demetra Goff APRN Primary Care Provider [phone] Encounter Details Date Type Department Care Team (Latest Contact Info) Description 06/05/2017 10:30 AM EDT - 06/05/2017 11:59 PM EDT Hospital [place] [phone] Moncho [place] Intermittent claudication Discharge Disposition: [...] Indications: Hypothyroidism 10/11/2022 fluticasone (FLONASE) 50 mcg/actuation [place], SuspensionIndication s:Seasonal allergic rhinitis 2 sprays by Each Nare route daily as needed for Rhinitis. 16 g 3 05/03/2016 03/19/2021 loratadine (CLARITIN) 10 mg tablet Take 10 mg by mouth daily. 07/18/2017 [place]-3 Fatty Acids 500 mg Cap Take by [...] PM EDT Office Visit Cardiology at [address] [place] [address] Rigoberto Diaz MD [facility] [address] [address] Scheduled Procedures Name Priority Associated Diagnoses Date/Ti [...] Text Report Department: Vascular Surgery Lab Patient: [id number] (LINDSEY DELEON) CPT: 57049 ICD10: I73.9 Referring Physician: ABDELRAHMAN GREEN ?? [...] ? Dorsalis Pedis (Ankle) Artery ?62 ?0.48 ??[place]-Biphasic ?? Posterior Tibial (Ankle) Artery ??87 ?0.68 ??[place]-Biphasic ?? Interpretation: RIGHT: Moderate to moderately severe [...] unspecified documented in this encounter Care Teams Staff Physician Relationship Specialty Start Date End Date Demetra Goff APRN PCP - General 10/19/12 12/31/17 documented as of this encounter
--- OUTSIDE RECORDS SUMMARY | 2024-08-12 07:39 | XMS_ITS | Encounter Summary ---
[place] [address] Care Team Providers Care Occupational Nurse Name Role Phone Demetra Goff APRN Primary Care Provider [phone] Encounter Details Date Type Department Care Team (Latest Contact Info) Description 07/18/2017 12:20 PM EDT Clinical [place] [phone] Atherosclerosis of mentasta artery of both lower extremities with intermittent [...] PM EDT Office Visit Cardiology at [address] [place] [address] Rigoberto Diaz MD [facility] [place] [address] Scheduled Procedures Name Priority Associated Diagnoses Date/Ti mo EGD, UPPER GI ENDOSCOPY (WRV U 2.09) Incontinence of feces, unspecified fecal incontinence type Dysphagia, unspecified type COLONOSCOPY, DIAGNOSTIC (WRV U 3.26) Incontinence of feces, unspecified fecal incontinence type Dysphagia, unspecified type documented as of this encounter Procedures Procedure Name Priority Date/Time Associated Diagnosis Comments EKG 12-LEAD Routine 07/18/2017 12:43 PM EDT Atherosclerosis of mentasta artery of both lower extremities with intermittent claudication documented in this encounter Results * EKG 12 Lead (07/18/2017 12:43 PM EDT) Ventricular rate 80 BPM MUSE SYSTEM Atrial Rate 80 BPM MUSE SYSTEM P-R Interval 144 ms MUSE SYSTEM QRS Duration 122 ms MUSE SYSTEM Q-T Interval 412 ms MUSE SYSTEM QTC Calculated (Bezet) 475 ms MUSE SYSTEM Calculated P [place] 76 degrees MUSE SYSTEM Calculated R [place] 28 degrees MUSE SYSTEM Calculated T [place] 44 degrees MUSE SYSTEM INTERPRETATION Normal sinus rhythm Right bundle branch block Abnormal ECG When compared with ECG of 31-MAY-2017 16:17, No significant change was found Confirmed by MD Catalina, Darrion Rees ([id number]) on 07/18/2017 4:40:55 PM MUSE SYSTEM 07/18/2017 12:4 3 PM EDT 07/18/2017 4:40 PM EDT Jake Montaño MD ECG ORDERABLES MUSE SYSTEM documented in this encounter Visit Diagnoses Diagnosis Atherosclerosis of mentasta artery of both lower extremities with intermittent claudication Atherosclerosis of mentasta arteries of the extremities with intermittent claudication documented in this encounter Care Teams Occupational Nurse Relationship Specialty Start Date End Date Demetra Goff APRN PCP - General 10/19/12 12/31/17 documented as of this encounter
--- OUTSIDE RECORDS SUMMARY | 2024-08-12 07:39 | XMS_ITS | Encounter Summary ---
[place] [address] Care Team Providers Care Stiff Straw Hat Washer Name Role Phone Demetra Goff APRN Primary Care Provider Encounter Details Date Type Department Care Team (Latest Contact Info) Description 07/18/2017 9:01 AM EDT - 07/18/2017 11:59 PM EDT Hospital Encounter Non-[place] [phone] Dorota Montaño MD [facility] [place] [address] PVD (peripheral vascular disease) with claudication Discharge [...] Indications: Hypothyroidism 10/11/2022 fluticasone (FLONASE) 50 mcg/actuation [place], SuspensionIndications :Seasonal allergic rhinitis 2 sprays by [...] PM EDT Office Visit Cardiology at [address] [phone] Rigoberto Diaz MD [facility] [place] [address] Scheduled Procedures Name Priority Associated [...] LINDSEY D ?(Age): 1950(66y) Med Rec#: ? [id number] ?Sex: ?F ? Site Loc: ? [facility] ?Ht / Wt: ??162(cm)/92.99(k Pt. Loc: ?Echo Lab ?BSA: ?1.97 Study Date: ?? 07/18/2017 ?Pt. Type: Tape: ? Referring: DOROTA MONTAÑO Referring: Dorota Montaño Reading: Andres Garcia ([id number]) Truck Mechanic: Candido Villalobos MS, [facility] Truck Mechanic 2: Alethea Knott ([id number]) Nurse: Crista Evangleista Diagnosis: *ICD-10-PCS Peripheral vascular disease, unspecified (I73.9) [...] E-wave Vmax ?1.5 ?m/sec ? MV deceleration [id number] ?msec ? MV A-wave Vmax ?1.2 ?m/sec [...] Normal ? Mid-Inferoseptal ?Normal ? Normal ? [place]-Septal ? Normal ? Normal ? [place]-Anterior ? Normal ? Normal ? [place]-Lateral ?Normal ? Normal ? [place]-Inferior ? Normal ? Normal ? [place]-Tip ?Normal ? Normal ? This report has been electronically signed by: Andres Garcia M.D. ? 07/18/2017 13:27:36 Images reviewed and interpretation verified [facility] Cardiac Ultrasound Laboratory Procedure Note Andres Garcia MD - 07/18/2017 Procedure: Stress Echocardiogram Patient: BEA Mtz (Age): 1950(66y) Med Rec#: [id number] Sex: F Site Loc: [facility] Ht / Wt: 162(cm)/92.99(k Pt. Loc: Echo Lab BSA: 1.97 Study Date: 07/18/2017 Pt. Type: Tape: Referring: DOROTA MONTAÑO Referring: Dorota Montaño Reading: Andres Garcia ([id number]) Truck Mechanic: Candido Villalobos MS, [facility] Truck Mechanic 2: Alethea Knott ([id number]) Nurse: Crista Evangelista Diagnosis: *ICD-10-PCS Peripheral vascular [...] MV E-wave Vmax 1.5 m/sec MV deceleration [id number] msec MV A-wave Vmax 1.2 m/sec MV [...] Normal Mid-Inferior Normal Normal Mid-Inferoseptal Normal Normal [place]-Septal Normal Normal [place]-Anterior Normal Normal [place]-Lateral Normal Normal [place]-Inferior Normal Normal [place]-Tip Normal Normal This report has been electronically signed by: Andres Garcia M.D. 07/18/2017 13:27:36 Images reviewed and interpretation verified [facility] Cardiac Ultrasound Laboratory Dorota Montaño MD ECHO [...] mLs documented in this encounter Care Teams Stiff Straw Hat Washer Relationship Specialty Start Date End Date Demetra Goff APRN PCP - General 10/19/12 12/31/17 documented as of this encounter
--- OUTSIDE RECORDS SUMMARY | 2024-08-12 07:39 | XMS_ITS | Encounter Summary ---
[place] [address] Care Team Providers Care Cleaner Window Name Role Phone MathewsDemetra barraza Garret SPARROW Primary Care Provider [phone] Reason for Visit * Reason Comments Other s/p paraesophageal h ernia Encounter Details Date Type Department Care Team (Late st Contact Info) Description 04/02/2013 3:00 PM EDT Office [place] [address] [facility] [place] [address] GERD (gastroesophageal reflux disease) (Primary Dx) Discharge [...] as of this encounter Progress Notes * Monhco Bowers MD - 04/02/2013 4:04 PM EDT [...] PM EDT Office Visit Cardiology at [address] [address] [facility] [place] [address] Scheduled Procedures Name Priority Associated Diagnoses Date/Ti me EGD, UPPER GI ENDOSCOPY (WRV U 2.09) Incontinence of feces, unspecified fecal incontinence type Dysphagia, unspecified type COLONOSCOPY, DIAGNOSTIC (WRV U 3.26) Incontinence of feces, unspecified fecal incontinence type Dysphagia, unspecified type documented as of this encounter Visit Diagnoses Diagnosis GERD (gastroesophageal reflux disease)- Primary Esophageal reflux documented in this encounter Care Teams Cleaner Window Relationship Specialty Start Date End Date Demetra Goff APRN PCP - General 10/19/12 12/31/17 documented as of this encounter
--- OUTSIDE RECORDS SUMMARY | 2024-08-12 07:39 | XMS_ITS | Encounter Summary ---
[place] [address] Care Team Providers Care Pulmonary Disease Specialist Name Role Phone McdowellDemetra barraza Garret SPARROW Primary Care Provider [phone] Reason for Visit * Auth/Cert Specialty Diagnoses / Procedures Referred By Emy t Referred To Contact Diagnoses Claudication in peripheral vascular disease claudication Procedures PRO THROMBOENDARTECTMY FEMORAL COMMON PRO REVSC OPEN/PERCUTANEOUS ILIAC ART W STNT PLMT&ANGIO PATRICE VSL UNILAT @ENDARTERECTOMY, COMMON FEMORAL W OR W/O PATCH GRAFT (WRVU 15.31) REVSC OPN\PRQ ILIAC ART W\STNT PLMT & ANGIOP SAME VSL (WRVU 10) Referral ID Status Reason Start Date Expiration Date Visits Re quested Visits Authorized [id number] 1 1 Encounter Details Date Type Department Care Team (Late st Contact Info) Description 08/15/2017 7:27 AM EDT Anesthesia Event [place] [phone] Abdelrahman Ordonez MD [facility] [place] [address] Rodolfo Monroe MD [facility] [place] [address] Anesthesia Record Procedure Summary Procedure Name Responsible [...] 0630; metacarpal vein (top of hand), left; [id number] catheter system; 20 gauge, 1 in length; sue kinsey RN; intradermal injection, tolerated well, appears comfortable; 08/17/17; 0859 08/15/17 0630 by Sue Kinsey RN 08/17/17 0859 by Neelam Hernández RN ETT Mask Ventilation: Ea sy (1); ETT Type: Cuffed, Oral; ETT Size: 7.5 mm; Mac Blade: 3; Notes: Asleep, Pre-O2; Attempts: 1; Laryngoscopy Grade: 1; ETT Placement Verified By: Auscultation, Capnometry, Visual; Secured at Teeth: 22 cm; Inserted by: eduard; Removal Date: 08/15/17; Removal Time: 1130 08/15/17 0745 by Rodolfo Mnoroe MD 08/15/17 1130 by Rodolfo Monroe MD Urethral Catheter 08/15/17; 0745; Surg jacqueline longer than 2 hours, Physician order; Physician order; indwelling catheter with core temperature probe; silicone coated; 14; inserted at this facility; 1; 5; 10; none; drainage bag to dependent drainage; 08/16/17; 0702 08/15/17 0745 by Joceline Maldonado RN 08/16/17 0702 by Teri Shin RN (RETIRED) Peripheral IV Line - Single Lumen 08/15/17; 0810; [id number]-[id number] catheter system; 16 gauge; eduard; median vein [...] OR Notes * Anesthesia Postprocedure Evaluation - Abdelrahmna Ordonez MD - 08/16/2017 9:53 AM EDT [facility] Department of Anesthesiology Post-procedure Note Patient: Lindsey Deleon Procedure Summary Date Anesthesia Start Anesthesia Stop Room / Location 08/15/17 0727 1134 [facility] OR 15 / [facility] MAIN OR Procedure Diagnosis Surgeon Responsible [...] All Anesthesia Providers: Anesthesiologist: Abdelrahman Ordonez MD Assembler Equipment: Rodolfo Monroe MD Most Recent Vitals: 08/16/17 [...] 4:12 PM EDT Pre-Anesthesia Evaluation for: Lindsey henderson 66 y.o. female. Procedure(s): @ENDARTERECTOMY, COMMON FEMORAL [...] by Mik Dumont MD at [facility] ENDOSCOPY ??? PRO LAPAROSCOPY, SURG, REPAIR PARAESOPHAGEAL HERNIA, W/O IMPLANTATION OF MESH 02/18/2013 LAPAROSCOPIC PARAESOPHAGEAL HERNIA REPAIR W/FUNDOPLASTY, W/O MESH performed by Moncho Bowers MD at [facility] MAIN OR ??? PRO UPPER GI ENDOSCOPY, BIOPSY 12/06/2012 EGD WITH BIOPSY performed by Mik Dumont MD at [facility] ENDOSCOPY ??? TUBAL LIGATION Social History [...] PM EDT Office Visit Cardiology at [address] [place] [address] Rigoberto Diaz MD [facility] [address] [place] [address] Scheduled Procedures Name Priority Associated Diagnoses Date/Ti [...] DT documented in this encounter Care Teams Pulmonary Disease Specialist Relationship Specialty Start Date End Date Demetra Goff APRN PCP - General 10/19/12 12/31/17 documented as of this encounter
--- OUTSIDE RECORDS SUMMARY | 2024-08-12 07:39 | XMS_ITS | Encounter Summary ---
[place] [address] Care Team Providers Care Financial Advisor Name Role Phone Demetra Goff APRN Primary Care Provider [phone] Encounter Details Date Type Department Care Team (Late st Contact Info) Description 08/09/2016 3:30 PM EDT Office Visit Sleep Center at [facility] [address] [place] [address] Alley Johnson APRN [facility] DR SLEEP [place] [address] CHEMA treated with BiPAP Social History Tobacco [...] this encounter Progress Notes * Alley Johnson, STATION ENGINEER - 08/09/2016 3:30 PM EDT Sleep Medicine Follow-Up Note HPI: Ms. Lindsey Deleon is a 63 y.o. female seen for follow-up of obstructive sleep apnea. Patient presents today for follow-up in PAP clinic. Last August, her TSH was borderline. She started 50mcg levothyroxine around late March, beginning of April. It has resolved her daytime sleepiness. It took her approximately 10-12 weeks to feel better. 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 Sleep Study: 02/07/2008 at [facility] AHI: 28/hr, supine index was 29/hour Wt: 192.4lbs Titration at [facility] on 03/08/2008, Wt: 194.6lbs Treatment: BIPAP Pressure: 22/16 cm Interface: Saranya View, size small; previous mask was Mirage Quattro but it left a cortney on her nose Fit: Well Chin strap: no Humidifier Settin chamber, 1 tubing HCC: [facility] Snoring: Yes, says person she caregives Dry Mouth: Sometimes, adjusts humidity; uses Biotene rinse Mouth Breathing: Yes, has FFM, breathes through her nose when she goes to sleep but probably mouth breathes at night Daytime Symptoms: Patient-reported scores: [place]: 6 today, 6 at 05/03/16 Nocturnal sleep [...] View Assessment Ms. Lindsey Deleon is a 63 y.o. female seen for [...] (changed in house todayon data card). Ms. Deleon also reports dry nasal mucosa--recommended OTC nasal [...] dry nasal passages --Follow-up: RTC 6 months BEACH LIFEGUARD --Driving safety discussed, recommend patient not drive if drowsy, if drowsy while driving, candy puller and take a nap. The patient indicates understanding of these issues and agrees with the plan. Alley Johnson APRN documented in this encounter Plan of Treatment Upcoming Encounters Date Type Department Care Team (Late st Contact Info) Description 02/06/2025 2:40 PM EDT Office Visit Cardiology at [address] [place] [phone] Rigoberto Diaz MD [facility] [place] [address] Scheduled Procedures Name Priority Associated Diagnoses Date/Ti me EGD, UPPER GI ENDOSCOPY (WRV U 2.09) Incontinence of feces, unspecified fecal incontinence type Dysphagia, unspecified type COLONOSCOPY, DIAGNOSTIC (WRV U 3.26) Incontinence of feces, unspecified fecal incontinence type Dysphagia, unspecified type documented as of this encounter Visit Diagnoses Diagnosis CHEMA treated with BiPAP documented in this encounter Care Teams Financial Advisor Relationship Specialty Start Date End Date Demetra Goff APRN PCP - General 10/19/12 12/31/17 documented as of this encounter
--- OUTSIDE RECORDS SUMMARY | 2024-08-12 07:39 | XMS_ITS | Encounter Summary ---
[place] [address] Care Team Providers Care Rotary Driller Name Role Phone Demetra Goff APRN Primary Care Provider [phone] Encounter Details Date Type Department Care Team (Late st Contact Info) Description 04/21/2017 Telephone Sleep Center at [facility] [address] [place] [address] Lary Delgado Social History Tobacco [...] PM EDT Office Visit Cardiology at [address] [place] [address] Rigoberto Diaz MD [facility] [place] [address] Scheduled Procedures Name Priority Associated Diagnoses Date/Ti me EGD, UPPER GI ENDOSCOPY (WRV U 2.09) Incontinence of feces, unspecified fecal incontinence type Dysphagia, unspecified type COLONOSCOPY, DIAGNOSTIC (WRV U 3.26) Incontinence of feces, unspecified fecal incontinence type Dysphagia, unspecified type documented as of this encounter Visit Diagnoses Not on filedocumented in this encounter Care Teams Rotary Driller Relationship Specialty Start Date End Date Demetra Goff APRN PCP - General 10/19/12 12/31/17 documented as of this encounter
--- OUTSIDE RECORDS SUMMARY | 2024-08-12 07:39 | XMS_ITS | Encounter Summary ---
Author Organization [facility] [place] [address] Care Team Providers Care Head Of Ict Name Role Phone [place]kyDemetra barraza Garret SPARROW Primary Care Provider Encounter Details Date Type Department Care Team (Late st Contact Info) Description 07/18/2017 Orders [place] [phone] Fred Umanzor, RN Atherosclerosis of [place] artery of both lower extremities with intermittent [...] PM EDT Office Visit Cardiology at [address] [place] [phone] Rigoberto Diaz MD [facility] [place] [address] Scheduled Procedures Name Priority Associated Diagnoses Date/Ti me EGD, UPPER GI ENDOSCOPY (WRV U 2.09) Incontinence of feces, unspecified fecal incontinence type Dysphagia, unspecified type COLONOSCOPY, DIAGNOSTIC (WRV U 3.26) Incontinence of feces, unspecified fecal incontinence type Dysphagia, unspecified type documented as of this encounter Results * EKG 12 Lead (07/18/2017 12:43 PM EDT) Pathologist [facility] Ventricular rate 80 BPM MUSE SYSTEM Atrial Rate 80 BPM MUSE SYSTEM P-R Interval 144 ms MUSE SYSTEM QRS Duration 122 ms MUSE SYSTEM Q-T Interval 412 ms MUSE SYSTEM QTC Calculated (Bezet) 475 ms MUSE SYSTEM Calculated P Baker 76 degrees MUSE SYSTEM Calculated R Baker 28 degrees MUSE SYSTEM Calculated T Baker 44 degrees MUSE SYSTEM INTERPRETATION Normal sinus rhythm Right bundle branch block Abnormal ECG When compared with ECG of 31-MAY-2017 16:17, No significant change was found Confirmed by MD Arnold Gregory A. ([id number]) on 07/18/2017 4:40:55 PM MUSE SYSTEM 07/18/2017 12:4 3 PM EDT 07/18/2017 4:40 PM EDT Jake Montaño MD ECG ORDERABLES Performing Organization Address City/[facility]/ZIP Co de Phone Number MUSE SYSTEM * Prealbumin (07/18/2017 12:30 PM EDT) Pathologist [facility] Prealbumin 34 20 - 40 mg/dL [facility] Comment: Prealbumin levels are generally lower in the pediatric population; adult concentrations are usually attained near puberty. Blood specimen (specimen) 07/18/2017 12:30 PM EDT 07/18/2017 12:36 PM EDT Narrative Resulting Agency Comment Spec In Lab Jake Montaño MD CHEMISTRY ORDERABLES Performing Organization Address City/[facility]/ZIP Co de Phone Number [facility] [place] [address] * (ABNORMAL) Basic Metabolic Panel (non-fasting) (07/18/2017 12:30 PM EDT) Pathologist [facility] Glucose 152 65 - 199 mg/dL [facility] Comment:Diabetes: >=200 mg/d L plus symptoms Blood Urea Nitrogen 13 8 - 18 mg/dL [facility] Creatinine 1.01 0.70 - 1.20 mg/dL [facility] Comment: Please note that the pediatric reference intervals supplied above were not validated at [facility]. Results from pediatric patients should be interpreted [...] - 107 mmol/L [facility] Carbon Dioxide 22 22 - 31 mmol/L [facility] Anion Gap 15 5 - 15 mmol/L [facility] Calcium 9.8 8.5 - 10.5 mg/dL [facility] Est Glomerular Filtration Rate 55(L) >=60 [facility] Comment: This estimated GFR (eGFR) [...] the following links into your internet browser. [email or web address] Blood specimen (specimen) 07/18/2017 12:30 PM EDT 07/18/2017 12:36 PM EDT Narrative Resulting Agency Comment Spec In Lab Jake Montaño MD CHEMISTRY ORDERABLES [facility] [place] [address] * (ABNORMAL) Hemogram (07/18/2017 12:30 PM EDT) White Blood Cell 10.6(H) 4.0 - 9.5 x10(3)/mc L [facility] Red Blood Cell 3.78(L) 4.00 - 5.21 x10(6)/mc L [facility] Hemoglobin 12.8 11.7 - 15.5 gm/dL [facility] Hematocrit 37.4 35.7 - 45.8 % [facility] Mean Cell Volume 98.9(H) 82.6 - 94.4 fL [facility] Mean Cell Hemoglobin 33.9(H) 27.1 - 32.0 pg [facility] Mean Cell Hemoglobin Concentration 34.2 31.7 - 35.0 gm/dL [facility] Platelet 235 145 - 357 x10(3)/[facility] RDW Standard Deviation 46.1(H) 37.0 - 46.0 [facility]ATORY RDW coefficient of variation 12.8 11.5 - 14.1 % [facility] Mean Platelet Volume 9.7 7.6 - 12.9 [facility] LABORATORY NRBC% auto 0.0 % [facility] NRBC Absolute 0.000 0.000 - 0.000 x10(3)/[facility] Blood specimen (specimen) 07/18/2017 12:30 PM EDT 07/18/2017 12:36 PM EDT Narrative Resulting Agency Comment Spec In Lab Jake Montaño MD HEMATOLOGY ORDERABLE S [facility] [place] [address] documented in this encounter Visit Diagnoses Diagnosis Atherosclerosis of [place] artery of both lower extremities with intermittent claudication Atherosclerosis of [place] arteries of the extremities with intermittent claudication documented in this encounter Care Teams Head Of Ict Relationship Specialty Start Date End Date Demetra Goff APRN PCP - General 10/19/12 12/31/17 documented as of this encounter
--- OUTSIDE RECORDS SUMMARY | 2024-08-12 07:39 | XMS_ITS | Encounter Summary ---
[place] [address] Care Team Providers Care Hearing Dog Trainer Name Role Phone [place]Demetra barraza Garret SPARROW Primary Care Provider [phone] Encounter Details Date Type Department Care Team (Late st Contact Info) Description 07/12/2017 Orders [place] [phone] Faith Fritz RN PVD (peripheral vascular disease) [...] PM EDT Office Visit Cardiology at [address] [place] [phone] Rigoberto Diaz MD [facility] [address] [place] [address] Scheduled Procedures Name Priority Associated [...] DOPP (07/18/2017 11:30 AM EDT) EF 65 [email or web address] SYSTEM Anatomical Region Laterality Modality Other 07/18/2017 Narrative 07/18/2017 1:38 PM EDT Procedure: ?Stress Echocardiogram Patient: ?FIGUEREDO LINDSEY D ?(Age): 1950(66y) Med Rec#: ? [id number] ?Sex: ?F ? Site Loc: ? [facility] ?Ht / Wt: ??162(cm)/92.99(k Pt. Loc: ?Echo Lab ?BSA: ?1.97 Study Date: ?? 07/18/2017 ?Pt. Type: Tape: ? Referring: DOROTA MONTAÑO Referring: Dorota Montaño Reading: Andres Garcia ([id number]) Drainlayer: Candido Villalobos MS, [facility] Drainlayer 2: Alethea Knott ([id number]) Nurse: Crista Evangelista Diagnosis: *ICD-10-PCS Peripheral vascular [...] E-wave Vmax ?1.5 ?m/sec ? MV deceleration [id number] ?msec ? MV A-wave Vmax ?1.2 ?m/sec [...] Normal ? Mid-Inferoseptal ?Normal ? Normal ? [place]-Septal ? Normal ? Normal ? [place]-Anterior ? Normal ? Normal ? [place]-Lateral ?Normal ? Normal ? [place]-Inferior ? Normal ? Normal ? [place]-Tip ?Normal ? Normal ? This report has been electronically signed by: Andres Garcia M.D. ? 07/18/2017 13:27:36 Images reviewed and interpretation verified [facility] Cardiac Ultrasound Laboratory Procedure Note Andres Garcia MD - 07/18/2017 Procedure: Stress Echocardiogram Patient: BEA Mtz (Age): 1950(66y) Med Rec#: [id number] Sex: F Site Loc: [facility] Ht / Wt: 162(cm)/92.99(k Pt. Loc: Echo Lab BSA: 1.97 Study Date: 07/18/2017 Pt. Type: Tape: Referring: DOROTA MONTAÑO Referring: Dorota Montaño Reading: Andres Garcia ([id number]) Drainlayer: Candido Villalobos MS, [facility] Drainlayer 2: Alethea Knott ([id number]) Nurse: Crista Evangelista Diagnosis: *ICD-10-PCS Peripheral vascular [...] MV E-wave Vmax 1.5 m/sec MV deceleration [id number] msec MV A-wave Vmax 1.2 m/sec MV [...] Normal Mid-Inferior Normal Normal Mid-Inferoseptal Normal Normal [place]-Septal Normal Normal [place]-Anterior Normal Normal [place]-Lateral Normal Normal [place]-Inferior Normal Normal [place]-Tip Normal Normal This report has been electronically signed by: Andres Garcia M.D. 07/18/2017 13:27:36 Images reviewed and interpretation verified [facility] Cardiac Ultrasound Laboratory Dorota Montaño MD ECHO ORDERABLES documented in this encounter Visit Diagnoses Diagnosis PVD (peripheral vascular disease) with claudication Peripheral vascular disease, unspecified PVD (peripheral vascular disease) with claudication Peripheral vascular disease, unspecified documented in this encounter Care Teams Hearing Dog Trainer Relationship Specialty Start Date End Date Demetra Goff APRN PCP - General 10/19/12 12/31/17 documented as of this encounter
--- OUTSIDE RECORDS SUMMARY | 2024-08-12 07:39 | XMS_ITS | Encounter Summary ---
Author Organization [facility] [place] [address] Care Team Providers Care Campus Police Officer Name Role Phone Demetra Goff APRN Primary Care Provider [phone] Reason for Referral * Consultation (Routine) - Closed Specialty Diagnoses / Procedures Referred By Emy castillo Referred To Contact Sleep Center Diagnoses CHEMA treated with BiPAP Snoring SOB (shortness of breath) Procedures PRG POLYLSOM 6+ YRS SLEEP W CPAP W 4+ ADDL SKYLAR ATTND Alley Johnson APRN [facility] [place] [address] [facility] Sleep Medicine [address] [place] [address] Referral ID Status Reason Start Date Expiration Date V isits Requested Visits Authorized [id number] Closed Test Only 02/06/2017 02/06/2018 1 1 Encounter Details Date Type Department Care Team (Late Contact Info) Description 02/06/2017 2:00 PM EDT Office Visit Sleep Center at [facility] [address] [place] [address] Alley Johnson APRN [facility] [place] [address] CHEMA treated with BiPAP; Snoring; SOB (shortness [...] drive if drowsy, if drowsy while driving, casing puller and take a nap. documented in this encounter Progress Notes * Alley Johnson Mario Alberto, COOK FISHING VESSEL - 02/06/2017 2:00 PM EDT Sleep Medicine Follow-Up Note HPI: Ms. Lindsey Deleon is a 66 y.o. female seen for follow-up of obstructive sleep apnea. Patient presents today for follow-up in PAP clinic. Patient has a cold, has a mask on today. She has a pinched nerve in her neck, getting into see Remy Steen in [facility] next Monday for PT, has been going [...] BPAP therapy nightly. Sleep Study: 02/07/2008 at [facility] AHI: 28/hr, supine index was 29/hour Wt: 192.4lbs Titration at [facility] on 03/08/2008, Wt: 194.6lbs Treatment: BIPAP BPAP Auto 760P, setup 12/30/13 Pressure: 23/17 cm Tolerance: always has gas and did before Interface: Saranya View, size small; previous mask was Mirage Quattro but it left a cortney on her nose Fit: Well Chin strap: no Humidifier Settin chamber, 1 tubing HCC: 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 The patient indicates understanding of these issues and agrees with the plan. Alley Johnson APRN Cc: Demetra Goff APRN documented in this encounter Plan of Treatment Upcoming Encounters Date Type Department Care Team (Late st Contact Info) Description 02/06/2025 2:40 PM EDT Office Visit Cardiology at [address] [place] [address] Rigoberto Diaz MD [facility] [place] [address] Scheduled Procedures Name Priority Associated Diagnoses Date/Ti [...] breath documented in this encounter Care Teams Campus Police Officer Relationship Specialty Start Date End Date Demetra Goff APRN PCP - General 10/19/12 12/31/17 documented as of this encounter
--- OUTSIDE RECORDS SUMMARY | 2024-08-12 07:39 | XMS_ITS | Encounter Summary ---
Author Organization [facility] [address] Care Team Providers Care Pipe Foreman Name Role Phone Door, Demtera Combs APRN Primary Care Provider [phone] Reason for Visit * Auth/Cert Specialty Diagnoses [...] Expiration Date Visits Re quested Visits Authorized [id number] 1 1 Encounter Details Date Type Department Care Team (Late st Contact Info) Description 08/15/2017 7:30 AM EDT - 08/15/2017 11:28 AM EDT Surgery [place] [address] Jake Montaño MD [facility] [place] [address] REVSC OPN\PRQ ILIAC ART W\STNT PLMT & [...] Depression ??? Emphysema ??? Macular degeneration ??? CEHMA (obstructive sleep apnea) Operations/Major Procedures: 08/15/2017: Left common femoral endarterectomy and patch angioplasty, Bilateral common iliac stents (Xpress stent 8mm x 40mm bilaterally) History of Presentation: 66F w HTN HLD obesity (BMI 35) who presents with short distance claudication bilatreally worse on left than right after walking ~5 min. No prior DC or stroke. Wears CPAP at night for [...] (with a daily Aspirin as well.) We [id number] prescriptions to [facility] so that you could start taking these right away. We also sent 90-day prescriptions with refills to [facility] as you will be taking these indefinitely. For any problems or questions please call [phone] TERESA Sousa, cattle dealer Nurse Clinician For issues on weeknights after 5pm and weekends please call [phone] and ask for the Vascular Fellow reservation agent. General Instructions None Future Appointments and Orders Future Appointments Provider Department Dept Phone 09/15/2017 10:30 AM Ana Oconnor [place] [facility] [place] [phone] 09/15/2017 11:15 AM Jake Montaño MD [facility] [place] [phone] Future Orders Complete By Expires MARIYA, legs, multiple levels [VAS8 Custom] 09/16/2017 (Approximate) 08/17/2018 Process Instructions: There is no in-house vascular botany laboratory assistant available on weeknights (5pm-8am), weekends, or holidays. IF THIS IS A REQUEST FOR AN EMERGENT STUDY DURING THOSE HOURS, please have the senior provider responsible for the patient page the Vascular Surgery Fellow/Senior Resident reservation agent to discuss options. Scheduling Instructions: Questions: Indication for study/signs & symptoms: s/p left fem endart with B iliac stents Question to be answered: bloodflow to feet Which DH location will this be performed?: [place] Referral to Home Health - at DISCHARGE [HUB9471 CPT(R)] As directed Process Instructions: Scheduling Instructions: Comments: DOCUMENTATION FOR VNA SERVICES (INCLUDING THOSE PATIENTS WITH MEDICARE COVERAGE REQUIRING HOME VNA SERVICES AND/OR HOSPICE SERVICES) PATIENT'S LOCATION: [address] [address] (home) Cell: Telephone Information: Charging Plug Placer's Name: Self In discussion with the attending physician, it is certified that this patient is under their care and that they, or a Nurse Practitioner,Clinical Nurse specialist or Physician Gelatin Maker Utility who is working directly with them, had [...] re health issues HOME HEALTH CARE AGENCY: [facility]. PHONE: [phone] FAX: [phone] Start of care: 24-48 hours after discharge [...] APRN [address] / [place] [address] All VNA agencies which cover the area of patient's residence have been reviewed, either verbally danae writing, and patient/family have chosen the home health care agency noted Questions: Agency name and contact information: [facility] Patient location post discharge: Home [...] (with a daily Aspirin as well.) We [id number] prescriptions to [facility] so that you could start taking these right away. We also sent 90-day prescriptions with refills to [facility] as you will be taking these indefinitely. For any problems or questions please call [phone] TERESA Sousa, cattle dealer Nurse Clinician For issues on weeknights after 5pm and weekends please call [phone] and ask for the Vascular Fellow reservation agent. documented in this encounter Medications at Time [...] Indications: Hypothyroidism 10/11/2022 fluticasone (FLONASE) 50 mcg/actuation [place], SuspensionIndications :Seasonal allergic rhinitis 2 sprays by [...] go home, denies pain, discomfort. VSS, student activities director and instructor admin meds and discharge paperwork, [...] belongings with her andwas escorted to the [facility] entrance via myself, where her daughter was [...] RN - 08/16/2017 11:10 AM EDT The patient/member service representative has been provided a list of Home Health Agencies/DME vendors which servetheir preferred geographic area. A letter describing our affiliations was reviewed with them and they were educated about their right to choose where referrals are placed. Patient requests referral to [facility] (RN visit) PHONE: [phone] FAX: [phone] Expected date of discharge: 08/16/17. Referral routed to the Leave Manager for matching with agency/vendor and to provide any required information. ALEXEI Schmitt, MS, BSN, RN, Pager [phone] Office of Care Management * Chayito Vincent [...] right fingers and left groin incision. Vascular corporate strategy intern Silvano johnson MD. 1635 Vascular at bedside, feeling of numbness resolved. documented in this encounter H&P Notes * Prerna Pickard MD - 08/15/2017 6:52 AM EDT Vascular Surgery History and Physical HPI: 66F w HTN HLD obesity (BMI 35) who presents with short distance claudication bilatreally worse on left than right after walking ~5 min. No prior DC or stroke. Wears CPAP at night for [...] times daily. ??? fluticasone (FLONASE) 50 mcg/actuation [place], Suspension 2 sprays by Each Nare route [...] Triphasic Dorsalis Pedis (Ankle) Artery 62 0.48 Aurora-Biphasic Posterior Tibial (Ankle) Artery 87 0.68 Aurora-Biphasic Stress test: no ischemia, EF 65% Imaging: [...] and 0.5/0.7 on left. CTA shows left SIDE PANEL PADDER stenosis and right TRE near occlusion. 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, drives, no GALINDO, ranch home [address] [place] [id number] Social & Family Supports/Community Resources: Sammi Extended Emergency Contact Information Primary Emergency Contact: Sammi Steel Address: [address] [place] [address] [facility] [employer] Relation: Child Secondary Emergency Contact: Bam Trevizo, PERRY [facility] Relation: Child Behavioral Health History: Hx depression and anxiety, on meds Substance Use/Abuse: Denies smoking, alcohol, or illicit drug use Other Pertinent/Service Specific Information: None Health/Prescription Coverage: Payor: JOSÉ MIGUEL SUAREZ / Plan: JOSÉ MIGUEL POINT / Product Type: *No Product type* / Secondary Insurance: None Prescription Coverage: see above Preferred Pharmacy: [facility] [place] [address] [facility] [address] [facility] - [address] [facility]. [address] [facility] [address] [facility] - [place], [place] - [address] [place] [address] Other: None Primary Care Provider: Demetra Goff APRN [phone] Patient/Caregiver Goals of Treatment: Safe dc plan [...] planning. ALEXEI Schmitt MS, BSN, RN, Pager [phone] Office of Care Management * Plan of Care - Teri Carmona RN - 08/16/2017 5:39 AM EDT Problem: Patient Care Overview Goal: Plan of Care Review Outcome: Ongoing (Interventions Implemented as Appropriate) 08/15/17 2131 08/16/17 0579 Plan of Care Review Progress -- improving [...] Pickard MD - 08/15/2017 11:52 AM EDT [facility] Operative Note Patient Name: Lindsey Deleon : [id number] MR#: [id number] Case Date: 08/15/2017 Surgeon: Surgeon(s) and Role: [...] Implant Name Type Inv. Item Serial No. Sales Stock Associate Lot No. LRB No. Used Action PATCH,BIOL,XENOSURE,.8X8CM ([id number]) - [id number] IMPLANTS PATCH,BIOL,XENOSURE,.8X8CM ([id number]) [employer] - [id number] Left 1 Implanted STENT,XPRESS,BLRY,8X40MM,75CM ([id number]) - [id number] IMPLANTS STENT,XPRESS,BLRY,8X40MM,75CM ([id number]) [employer] - [id number] Left 1 Implanted STENT,XPRESS,BLRY,8X40MM,135 ([id number]) - [id number] IMPLANTS STENT,XPRESS,BLRY,8X40MM,135 ([id number])[employer] - [id number] Right 1 Implanted CLOSU,VSL,PRCL,PRGLD,SMC,6FR ([id number]) - [id number] IMPLANTS CLOSU,VSL,PRCL,PRGLD,SMC,6FR ([id number])[employer] - [id number] Right 1 Implanted Findings: Bulky calcific plaque [...] and 0.5/0.7 on left. CTA shows left SIDE PANEL PADDER stenosis and right TRE near occlusion. Plan [...] angiogram and another angiogram in 30 degrees HEBREW to inspect our femoral repair. Common external [...] 08/17/2017 * Brief Op Note - Prerna Pikcard MD - 08/15/2017 11:47 AM EDT Brief Operative Note Patient Name: Lindsey Deleon : [id number] MR#: [id number] Case Date: 08/15/2017 Surgeon: Surgeon(s) and Role: [...] PM EDT Office Visit Cardiology at [address] [place] [id number] Rigoberto Diaz MD [facility] [place] [address] Scheduled Procedures Name Priority Associated Diagnoses Date/Ti me EGD, UPPER GI ENDOSCOPY (WRV U 2.09) Incontinence of feces, unspecified fecal incontinence type Dysphagia, unspecified type COLONOSCOPY, DIAGNOSTIC (WRV U 3.26) Incontinence of feces, unspecified fecal incontinence type Dysphagia, unspecified type documented as of this encounter Procedures Procedure Name Priority Date/Time Associated Diagnosis Comments PARK MANAGER SCAN 08/18/2017 12:00 AM EDT HEMOGRAM Routine 08/17/2017 4:41 AM EDT DIFFERENTIAL, AUTOMATED Routine 08/17/2017 4:41 AM EDT CBC (WITH DIFF) Routine 08/17/2017 4:41 AM EDT BASIC METABOLIC PANEL Routine 08/17/2017 4:41 AM EDT HEMOGRAM Routine 08/16/2017 5:27 AM EDT DIFFERENTIAL, AUTOMATED Routine 08/16/2017 5:27 AM EDT CBC (WITH DIFF) Routine 08/16/2017 5:27 AM EDT BASIC METABOLIC PANEL Routine 08/16/2017 5:27 AM EDT IR OR VASC ANGIOGRAM IMAGE STORAGE ONLY Routine 08/15/2017 10:41 AM EDT BLOOD GAS ARTERIAL POC Routine 7 8:18 AM EDT CATHETER PLACEMENT, SELECTIVE FIRST [...] in this encounter Results * SCAN DOC: PARK MANAGER (08/18/2017 12:00 AM EDT) Anatomical Region Laterality Modality Other Narrative 08/18/2017 12:00 AM EDT Ordered by an unspecified provider. Scanning Provider MEDIA MGR SCAN EXT O RDR/RSLT * (ABNORMAL) Differential, Automated (08/17/2017 4:41 AM EDT) Neutrophil % 71.2 % [facility] Neutrophil Absolute 7.81(H) 1.70 - 6.10 x10(3)/mc L [facility] Lymph % 14.2 % [facility] Lymphocytes Abs 1.6 0.9 - 3.2 x10(3)/ L [facility] Monocyte % 12.4 % [facility] Monocyte Abs 1.4(H) 0.3 - 0.9 x10(3)/mc L [facility] Eos % 1.5 % [facility] Eosinophils Abs 0.2 0.0 - 0.4 x10(3)/[facility] Basophil % 0.3 % [facility] Baso Absolute 0.0 0.0 - 0.1 x10(3)/mc L [facility] Immature Gran % 0.40 % [facility] Comment: Immature granulocytes(IG's)percentage and absolute count will include metamyelocytes, myelocytes, and promyelocytes. Blood smears from CBCs yielding IG's will be scanned manually for concordance. If this scan disagrees with the automated IG or if promyelocytes are noted, a manual differential will be performed. Immature Gran Absolute 0.04 0.00 - 0.04 x10(3)/mc L [facility] Blood specimen (specimen) 08/17/2017 4:41 AM EDT 08/17/2017 5:00 AM EDT Narrative Resulting Agency Comment Spec In Lab Jake Montaño MD HEMATOLOGY ORDERABLE S Performing Organization Address City/[facility]/ZIP Co de Phone Number [facility] [place] [address] * (ABNORMAL) Hemogram (08/17/2017 4:41 AM EDT) White Blood Cell 11.0(H) 4.0 - 9.5 x10(3)/mc L [facility] Red Blood Cell 3.20(L) 4.00 - 5.21 x10(6)/mc L [facility] Hemoglobin 10.8(L) 11.7 - 15.5 gm/dL [facility] Hematocrit 31.7(L) 35.7 - 45.8 % [facility] Mean Cell Volume 99.1(H) 82.6 - 94.4 fL [facility] Mean Cell Hemoglobin 33.8(H) 27.1 - 32.0 pg [facility] Mean Cell Hemoglobin Concentration 34.1 31.7 - 35.0 gm/dL [facility] Platelet 211 145 - 357 x10(3)/mc L [facility] RDW Standard Deviation 46.1(H) 37.0 - 46.0 fL [facility] RDW coefficient of variation 12.6 11.5 - 14.1 % [facility] Mean Platelet Volume 9.8 7.6 - 12.9 fL [facility] NRBC% auto 0.0 % [facility] NRBC Absolute 0.000 0.000 - 0.000 x10(3)/mc L [facility] Blood specimen (specimen) 08/17/2017 4:41 AM EDT 08/17/2017 5:00 AM EDT Narrative Resulting Agency Comment Spec In Lab Jake Montaño MD HEMATOLOGY ORDERABLE S Performing Organization Address City/[facility]/ZIP Co de Phone Number [facility] [place] [address] * Basic Metabolic Panel (non-fasting) (08/17/2017 4:41 AM EDT) Glucose 133 65 - 199 mg/dL [facility] Comment:Diabetes: >=200 mg/d L plus symptoms Blood Urea Nitrogen 10 8 - 18 mg/dL [facility] Creatinine 0.85 0.70 - 1.20 mg/dL [facility] Comment: Please note that the pediatric reference intervals supplied above were not validated at [facility]. Results from pediatric patients should be interpreted in conjunction to the patient's age, height and muscle mass. Sodium 141 135 - 145 mmol/L [facility] Potassium 4.6 3.5 - 5.0 mmol/L [facility] Comment: Please note: ??Patients with WBC >100,000 may have falsely elevated Potassium levels. ??For accurate Potassium quantification in these patients send serum separator tube (gold top) for subsequent determinations. ??Contact the Clinical Chemistry Laboratory if there are any questions. Chloride 103 98 - 107 mmol/L [facility] Carbon Dioxide 24 22 - 31 mmol/L [facility] Anion Gap 14 5 - 15 mmol/L [facility] Calcium 8.9 8.5 - 10.5 mg/dL [facility] Est Glomerular Filtration Rate >60 >=60 [facility] Comment: This estimated GFR (eGFR) [...] the following links into your internet browser. [email or web address] Blood specimen (specimen) 08/17/2017 4:41 AM EDT 08/17/2017 5:00 AM EDT Narrative Resulting Agency Comment Spec In Lab Jake Montaño MD CHEMISTRY ORDERABLES Performing Organization Address [facility]/ZIP Co de Phone Number [facility] [place] [address] * (ABNORMAL) Differential, Automated (08/16/2017 5:27 AM EDT) Neutrophil % 69.2 % [facility] Neutrophil Absolute 7.02(H) 1.70 - 6.10 x10(3)/mc L [facility] Lymph % 18.2 % [facility] Lymphocytes Abs 1.8 0.9 - 3.2 x10(3)/ L [facility] Monocyte % 10.2 % [facility] Monocyte Abs 1.0(H) 0.3 - 0.9 x10(3)/ L [facility] Eos % 1.7 % [facility] Eosinophils Abs 0.2 0.0 - 0.4 x10(3)/[facility] Basophil % 0.2 % [facility] Baso Absolute 0.0 0.0 - 0.1 x10(3)/ L [facility] Immature Gran % 0.50 % [facility] Comment: Immature granulocytes(IG's)percentage and absolute count will include metamyelocytes, myelocytes, and promyelocytes. Blood smears from CBCs yielding IG's will be scanned manually for concordance. If this scan disagrees with the automated IG or if promyelocytes are noted, a manual differential will be performed. Immature Gran Absolute 0.05(H) 0.00 - 0.04 x10(3)/mc L [facility] Blood specimen (specimen) 08/16/2017 5:27 AM EDT 08/16/2017 5:36 AM EDT Narrative Resulting Agency Comment Spec In Lab Jake Montaño MD HEMATOLOGY ORDERABLE S Performing Organization Address [facility]/ZIP Co de Phone Number [facility] [place] [address] * (ABNORMAL) Hemogram (08/16/2017 5:27 AM EDT) White Blood Cell 10.2(H) 4.0 - 9.5 x10(3)/mc L [facility] Red Blood Cell 3.50(L) 4.00 - 5.21 x10(6)/mc L [facility] Hemoglobin 11.7 11.7 - 15.5 gm/dL [facility] Hematocrit 35.1(L) 35.7 - 45.8 % [facility] Mean Cell Volume 100.3(H) 82.6 - 94.4 fL [facility] Mean Cell Hemoglobin 33.4(H) 27.1 - 32.0 pg [facility] Mean Cell Hemoglobin Concentration 33.3 31.7 - 35.0 gm/dL [facility] Platelet 207 145 - 357 x10(3)/[facility] RDW Standard Deviation 46.5(H) 37.0 - 46.0 [facility] RDW coefficient of variation 12.6 11.5 - 14.1 % [facility] Mean Platelet Volume 9.9 7.6 - 12.9 [facility] NRBC% auto 0.0 % [facility] NRBC Absolute 0.000 0.000 - 0.000 x10(3)/[facility] Blood specimen (specimen) 08/16/2017 5:27 AM EDT 08/16/2017 5:36 AM EDT Narrative Resulting Agency Comment Spec In Lab Jake Montaño MD HEMATOLOGY ORDERABLE S [facility] [place] [address] * Basic Metabolic Panel (non-fasting) (08/16/2017 5:27 AM EDT) Glucose 116 65 - 199 mg/dL [facility] Comment:Diabetes: >=200 mg/d L plus symptoms Blood Urea Nitrogen 10 8 - 18 mg/dL [facility] Creatinine 0.92 0.70 - 1.20 mg/dL [facility] Comment: Please note that the pediatric reference intervals supplied above were not validated at [facility]. Results from pediatric patients should be interpreted in conjunction to the patient's age, height and muscle mass. Sodium 142 135 - 145 mmol/L [facility] Potassium 4.8 3.5 - 5.0 mmol/L [facility] Comment: Please note: ??Patients with WBC >100,000 may have falsely elevated Potassium levels. ??For accurate Potassium quantification in these patients send serum separator tube (gold top) for subsequent determinations. ??Contact the Clinical Chemistry Laboratory if there are any questions. Chloride 105 98 - 107 mmol/L [facility] Carbon Dioxide 26 22 - 31 mmol/L [facility] Anion Gap 11 5 - 15 mmol/L [facility] Calcium 8.8 8.5 - 10.5 mg/dL [facility] Est Glomerular Filtration Rate >60 >=60 [facility] Comment: This estimated GFR (eGFR) [...] the following links into your internet browser. [email or web address] Blood specimen (specimen) 08/16/2017 5:27 AM EDT 08/16/2017 5:36 AM EDT Narrative Resulting Agency Comment Spec In Lab Jake Montaño MD CHEMISTRY ORDERABLES [facility] [place] [address] * IR OR VASC Aniogram Image Storage Only (08/15/2017 10:41 AM EDT) Narrative LUDY CORREIA - 08/15/2017 10:39 AM EDT This exam is for storage only and is auto-finalizing. Jake Montaño MD IMG FILM LIBRARY ORD ERABLES MINGO Young * (ABNORMAL) BLOOD GAS 2 ARTERIAL (08/15/2017 8:18 AM EDT) pH, Arterial 7.36 7.35 - 7.45 [facility] PCO2, Arterial 40 35 - 45 mmHg [facility] PO2, Arterial 148(H) 85 - 104 mmHg [facility] Bicarbonate, Arterial 22.3 20.0 - 26.0 mmol/L [facility] Base Excess, Arterial -3.1(L) -3.0 - 3.0 mmol/L [facility] Hgb Blood Gas 12.0 11.7 - 15.5 gm/dL [facility] Oxyhemoglobin, Arterial 97.7(H) 94.0 - 97.0 % [facility] Carboxyhemoglob in, Arterial 0.8 % [facility] Comment: Nonsmokers: 0.5-1.5% COHB Smokers: Variable, but usually less than 10% Toxic: 20-30% COHB Lethal: Greater than 60% COHB Methemoglobin, Arterial 0.3 <=1.5 % [facility] Na Whole Blood 141 135 - 145 mmol/L [facility] K Whole Blood 4.0 3.5 - 5.0 mmol/L [facility] Comment: Please note: Patients with WBC >100,000 may have falsely elevated Potassium levels. Contact the Clinical Chemistry Laboratory if there are any questions. ICa Whole Blood 1.19 1.15 - 1.33 mmol/L [facility] Comment: Note: ??Total bilirubin higher than 20 mg/dL may lead to falsely low ionized calcium. CL Whole Blood 110(H) 98 - 107 mmol/L [facility] Gluc Whole Bld 110 65 - 199 mg/dL [facility] Comment:Diabetes: >=200 mg/d L plus symptoms. Lactate WB 1.8 0.5 - 2.2 mmol/L [facility] Blood specimen (specimen) 08/15/2017 8:18 AM EDT 08/15/2017 8:18 AM EDT Jake Montaño MD POINT OF CARE TEST O RDERABLES [facility] [place] [address] * SCAN DOC: IMPLANTABLE DEVICES (08/15/2017 12:00 [...] PRN, Starting on Mon08/15/17 at 0951, Until [facility] 08/17/17 at 1242, Intra-Operative (Intra-Procedure), Routine Given [...] Until Mon08/17/17 at 1242, Intra-Operative (Intra-Procedure), Routine Given 08/15/2017 [...] Akins RN) 0811 (Given - Provider: Neelam Heránndez) beclomethasone (QVAR) 80 mcg/actuation inhaler 1 puff [...] Carmona RN) 0525 (Given - Provider: Gail aCsas RN) lisinopril (PRINIVIL;ZESTRIL) tablet 10 mg 10 [...] Routine documented in this encounter Care Teams Pipe Foreman Relationship Specialty Start Date End Date Demetra Goff APRN PCP - General 10/19/12 12/31/17 documented as of this encounter
--- OUTSIDE RECORDS SUMMARY | 2024-08-12 07:39 | XMS_ITS | Encounter Summary ---
[place] [address] Care Team Providers Care Teamcenter Consultant Name Role Phone EffinghamDemetra barraza Garret SPARROW Primary Care Provider [phone] Reason for Visit * Reason Comments Claudication PT HERE FOR DISABLIN G CLAUDICATION UNABLE TO PALPATE FEM PULSES Encounter Details Date Type Department Care Team (Latest Contact Info) Description 07/11/2017 10:30 AM EDT Office [place] [address] Jake Montaño MD [facility] [place] [address] Atherosclerosis of [place] artery of both lower extremities with intermittent [...] No open lesions on either foot. Labs: Hand Etcher (06/16/17): 1.05 No results available for lipid [...] PM EDT Office Visit Cardiology at [address] [place] [phone] Rigoberto Diaz MD [facility] [place] [address] Scheduled Procedures Name Priority Associated Diagnoses Date/Ti me EGD, UPPER GI ENDOSCOPY (WRV U 2.09) Incontinence of feces, unspecified fecal incontinence type Dysphagia, unspecified type COLONOSCOPY, DIAGNOSTIC (WRV U 3.26) Incontinence of feces, unspecified fecal incontinence type Dysphagia, unspecified type documented as of this encounter Visit Diagnoses Diagnosis Atherosclerosis of [place] artery of both lower extremities with intermittent claudication Atherosclerosis of [place] arteries of the extremities with intermittent claudication documented in this encounter Care Teams Teamcenter Consultant Relationship Specialty Start Date End Date Demetra Goff APRN PCP - General 10/19/12 12/31/17 documented as of this encounter
--- OUTSIDE RECORDS SUMMARY | 2024-08-12 07:39 | XMS_ITS | Encounter Summary ---
[place] [address] Care Team Providers Care Foreign Languages Professor Name Role Phone Demetra Goff APRN Primary Care Provider [phone] Encounter Details Date Type Department Care Team (Late st Contact Info) Description 05/03/2016 3:30 PM EDT Office Visit Sleep Center at [facility] [address] [place] [address] Alley Johnson APRN [facility] [place] [address] Seasonal allergic rhinitis; CHEMA treated with BiPAP [...] every 3 months --Follow-up: RTC 3-4 months TAX ACCOUNTING ASSISTANT to check daytime sleepiness/hypothyroidism symptoms --Driving safety discussed, recommend patient not drive if drowsy, if drowsy while driving to pullman clerk and take a nap. documented in this [...] 2 weeks ago through her PCP. 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 Sleep Study: 02/07/2008 at [facility] AHI: 28/hr, supine index was 29/hour Wt: 192.4lbs Titration at [facility] on 03/08/2008, Wt: 194.6lbs Treatment: BIPAP Pressure: 22/16 cm Interface: Saranya View, size small; previous mask was Mirage Quattro but it kept leaving a cortney on her nose Fit: Was leaking-cushion was checked on last follow up and was not attached to the frame properly, creating a high leak Chin strap: no Humidifier Settin chamber, 1 tubing HCC: [facility] Snoring: Not aware of, sleeps alone Dry [...] function without it. Daytime Symptoms: Patient-reported scores: [place]: 6 today, 02/17 at last visit Nocturnal [...] has a mask liner) Assessment Ms. Lindsey Deleon is a 63 [...] every 3 months --Follow-up: RTC 3-4 months TAX ACCOUNTING ASSISTANT to check daytime sleepiness/hypothyroidism symptoms with adjusted levothyroxine --If patient still has daytime sleepiness/fatigue symptoms upon follow-up, consider overnight pulseoximetry --Driving safety discussed, recommend patient not drive if drowsy, if drowsy while driving to pullman clerk and take a nap. The patient indicates understanding of these issues and agrees with the plan. Alley Johnson APRN Cc: Demetra Goff APRN documented in this encounter Plan of Treatment Upcoming Encounters Date Type Department Care Team (Late st Contact Info) Description 02/06/2025 2:40 PM EDT Office Visit Cardiology at [address] [address] Rigoberto Diaz MD [facility] [place] [address] Scheduled Procedures Name Priority Associated Diagnoses Date/Ti [...] BiPAP documented in this encounter Care Teams Foreign Languages Professor Relationship Specialty Start Date End Date Demetra Goff APRN PCP - General 10/19/12 12/31/17 documented as of this encounter
--- OUTSIDE RECORDS SUMMARY | 2024-08-12 07:39 | XMS_ITS | Encounter Summary ---
Author Organization [facility] [place] [address] Care Team Providers Care Workers' Compensation Claims Examiner Name Role Phone AlgerDemetra APRN Primary Care Provider [phone] Reason for Visit * Auth/Cert Specialty Diagnoses [...] Expiration Date Visits Re quested Visits Authorized [id number] 1 1 Encounter Details Date Type Department Care Team (Latest Contact Info) Description 08/02/2017 5:42 AM EDT - 08/02/2017 8:13 AM EDT Hospital Encounter [place] [address] Jake Montaño MD [facility] [place] [address] Atherosclerosis of [place] artery of both lower extremities with intermittent [...] Indications: Hypothyroidism 10/11/2022 fluticasone (FLONASE) 50 mcg/actuation [place], SuspensionIndications :Seasonal allergic rhinitis 2 sprays by [...] groin infection/infection of the prosthetic material. Ms. Deleno was given one dose PO fluconazole in same day. She will continue to use BID nystatin cream at home (she already has a prescription). She will call us when the fungal skin infection resolves, and we will then reschedule her operation. Prerna Pickard MD/MALIK, Pager [phone] Section of Vascular Surgery, PGY-4 documented in this encounter Plan of Treatment Upcoming Encounters Date Type Department Care Team (Late st Contact Info) Description 02/06/2025 2:40 PM EDT Office Visit Cardiology at [address] [address] Rigoberto Diaz MD [facility] [place] [address] Scheduled Procedures Name Priority Associated Diagnoses Date/Ti me EGD, UPPER GI ENDOSCOPY (WRV U 2.09) Incontinence of feces, unspecified fecal incontinence type Dysphagia, unspecified type COLONOSCOPY, DIAGNOSTIC (WRV U 3.26) Incontinence of feces, unspecified fecal incontinence type Dysphagia, unspecified type documented as of this encounter Visit Diagnoses Diagnosis Atherosclerosis of [place] artery of both lower extremities with intermittent claudication Atherosclerosis of [place] arteries of the extremities with intermittent claudication Atherosclerotic PVD with intermittent claudication Atherosclerosis of [place] arteries of the extremities with intermittent claudication documented in this encounter Admitting Diagnoses Diagnosis Atherosclerotic PVD with intermittent claudication Atherosclerosis of [place] arteries of the extremities with intermittent claudication [...] RN) documented in this encounter Care Teams Workers' Compensation Claims Examiner Relationship Specialty Start Date End Date Demetra Goff APRN PCP - General 10/19/12 12/31/17 documented as of this encounter
--- OUTSIDE RECORDS SUMMARY | 2024-08-12 07:39 | XMS_ITS | Encounter Summary ---
Author Organization [facility] [place] [address] Care Team Providers Care Windsurfing Instructor Name Role Phone Demetra Goff APRN Primary Care Provider [phone] Reason for Referral * Diagnostic Test (Routine) - Closed Specialty Diagnoses / Procedures Referred By Emy castillo Referred To Contact Radiology Diagnoses Intermittent claudication Procedures CT Angiogram Aorta Lower Extremity Runoff Tawanna Storey APRN [facility] [place] [address] [facility] [place] [address] Referral ID Status Reason Start Date Expiration Date V isits Requested Visits Authorized [id number] Closed Specialty Service Requested 06/16/2017 06/16/2018 1 1 Reason for Visit * Reason Comments Claudication pt here for claudica tin pain on ambulation no rest pain * Consultation (Routine) - Closed Specialty Diagnoses / Procedures Referred By Emy castillo Referred To Contact Vascular Surgery Diagnoses Claudication. Alethea Beal PA [address] [place] [id number] [facility] V[facility] Surg [address] [place] [address] Referral ID Status Reason Start Date Expiration Date V isits Requested Visits Authorized [id number] Closed Consult, Test & Treat Connection Center 06/07/2017 06/07/2018 1 1 Encounter Details Date Type Department Care Team (Late st Contact Info) Description 06/16/2017 9:30 AM EDT Office [place] [address] [facility] [place] [address] Intermittent claudication Social History Tobacco [...] rest pain,tissue loss, chest pain, TIA's, CVA, IA. SOB from COPD. Recent w/u with cardiology [...] performed by Mik Dumont MD at [facility] ENDOSCOPY ??? PRO LAPAROSCOPY, SURG, REPAIR PARAESOPHAGEAL HERNIA, W/O IMPLANTATION OF MESH 02/18/2013 LAPAROSCOPIC PARAESOPHAGEAL HERNIA REPAIR W/FUNDOPLASTY, W/O MESH performed by Moncho Bowers MD at [facility] MAIN OR ??? PRO UPPER GI ENDOSCOPY, BIOPSY 12/06/2012 EGD WITH BIOPSY performed by Mik Dumont MD at [facility] ENDOSCOPY ??? TUBAL LIGATION Social Hx: Social [...] Indications: Hypothyroidism ??? fluticasone (FLONASE) 50 mcg/actuation [place], Suspension 2 sprays by Each Nare route daily as needed for Rhinitis. 16 g 3 ??? loratadine (CLARITIN) 10 mg tablet Take 10 mg by mouth daily. ??? [place]-3 Fatty Acids 500 mg Cap Take by [...] no palpable pulsatile masses, large Extremity - [place], warm, no ulceration, brisk capillary refill, no [...] ? Dorsalis Pedis (Ankle) Artery ?62 ?0.48 ??Bosque- Biphasic ?? Posterior Tibial (Ankle) Artery ??87 ?0.68 ??Bosque-Biphasic ?? Interpretation: RIGHT: Moderate to moderately severe [...] encounter Miscellaneous Notes * Addendum Note - Neelam Giron - 06/16/2017 10:02 AM EDTAddended by: NEELAM GIRON on: 06/16/2017 10:02 AM Modules accepted: Orders documented in this encounter Plan of Treatment Upcoming Encounters Date Type Department Care Team (Late st Contact Info) Description 02/06/2025 2:40 PM EDT Office Visit Cardiology at [address] [place] [address] [facility] [place] [address] Scheduled Procedures Name Priority Associated Diagnoses Date/Ti [...] EDT) Creatinine 1.05 0.70 - 1.20 mg/dL [facility] Comment: Please note that the pediatric reference intervals supplied above were not validated at [facility]. Results from pediatric patients should be interpreted in conjunction to the patient's age, height and muscle mass. Est Glomerular Filtration Rate 52(L) >=60 [facility] Comment: This estimated GFR (eGFR) [...] the following links into your internet browser. [email or web address] CITY[facility]f Blood specimen (specimen) 06/16/2017 10:12 AM EDT 06/16/2017 10:20 AM EDT Narrative Resulting Agency Comment Spec In Lab Tawanna Storey BRONC BREAKER CHEMISTRY ORDERABL ES [facility] [place] [address] documented in this encounter Visit Diagnoses Diagnosis Intermittent claudication Peripheral vascular disease, unspecified Intermittent claudication Peripheral vascular disease, unspecified documented in this encounter Care Teams Windsurfing Instructor Relationship Specialty Start Date End Date Demetra Goff APRN PCP - General 10/19/12 12/31/17 documented as of this encounter
--- OUTSIDE RECORDS SUMMARY | 2024-08-12 07:39 | XMS_ITS | Encounter Summary ---
Author Organization [place] [address] Care Team Providers Care Gas Golf Cart Repairer Name Role Phone Demetra Goff APRN Primary Care Provider [phone] Encounter Details Date Type Department Care Team (Latest Contact Info) Description 07/18/2017 12:55 PM EDT Laboratory [place] [address] Atherosclerosis of [place] artery of both lower extremities with intermittent [...] PM EDT Office Visit Cardiology at [address] [phone] Rigoberto Diaz MD [facility] [address] [place] [place] [address] Scheduled Procedures Name Priority Associated Diagnoses Date/Ti [...] Routine 07/18/2017 12:30 PM EDT Atherosclerosis of [place] artery of both lower extremities with intermittent claudication TYPE AND SCREEN, SDP (FUTURE SURGERY, [facility] SAME DAY PROGRAM ONLY) Routine 07/18/2017 12:30 PM EDT Atherosclerosis of [place] artery of both lower extremities with intermittent claudication ABO/RH TYPING Routine 07/18/2017 12:30 PM EDT Atherosclerosis of [place] artery of both lower extremities with intermittent claudication ANTIBODY SCREEN Routine 07/18/2017 12:30 PM EDT Atherosclerosis of [place] artery of both lower extremities with intermittent claudication PREALBUMIN Routine 07/18/2017 12:30 PM EDT Atherosclerosis of [place] artery of both lower extremities with intermittent claudication BASIC METABOLIC PANEL Routine 07/18/2017 12:30 PM EDT Atherosclerosis of [place] artery of both lower extremities with intermittent claudication documented in this encounter Results * ABORH Recheck Status (07/18/2017 12:30 PM EDT) ABORH Type Recheck Completed [facility] Blood specimen (specimen) 07/18/2017 12:30 PM EDT 07/18/2017 12:36 PM EDT Narrative Resulting Agency Comment Spec In Lab Jake Montaño MD BLOOD BANK LAB ORDER TANA [facility] [place] [address] * Antibody screen (07/18/2017 12:30 PM EDT) Ab Screen Interp Negative [facility] Expires at 2359 on: 08/18/2017 [facility] Comment: Corrected from 09/01/17 12:00 [Unknown] on 08/08/17 06:04 by Gloria Huerta I.. Corrected from 08/05/17 12:00 [Unknown] on 08/03/17 03:58 by Chantelle Nye Corrected from 09/01/17 12:00 [Unknown] on 07/20/17 04:47 by Gloria Huerta I.. Blood specimen (specimen) 07/18/2017 12:30 PM EDT 07/18/2017 12:36 PM EDT Narrative Resulting Agency Comment Spec In Lab aJke Montaño MD BLOOD BANK LAB ORDER TANA [facility] [place] [address] * ABO/Rh Typing (07/18/2017 12:30 PM EDT) ABORH Type O Pos [facility] Blood specimen (specimen) 07/18/2017 12:30 PM EDT 07/18/2017 12:36 PM EDT Narrative Resulting Agency Comment Spec In Lab Jake Montaño MD BLOOD BANK LAB ORDER TANA [facility] [place] [address] * Prealbumin (07/18/2017 12:30 PM EDT) Prealbumin 34 20 - 40 mg/dL [facility] Comment: Prealbumin levels are generally lower in the pediatric population; adult concentrations are usually attained near puberty. Blood specimen (specimen) 07/18/2017 12:30 PM EDT 07/18/2017 12:36 PM EDT Narrative Resulting Agency Comment Spec In Lab Jake Montaño MD CHEMISTRY ORDERABLES [facility] [place] [address] * (ABNORMAL) Basic Metabolic Panel (non-fasting) (07/18/2017 12:30 PM EDT) Glucose 152 65 - 199 mg/dL [facility] Comment:Diabetes: >=200 mg/d L plus symptoms Blood Urea Nitrogen 13 8 - 18 mg/dL [facility] Creatinine 1.01 0.70 - 1.20 mg/dL [facility] Comment: Please note that the pediatric reference intervals supplied above were not validated at [facility]. Results from pediatric patients should be interpreted in conjunction to the patient's age, height and muscle mass. Sodium 142 135 - 145 mmol/L [facility] Potassium 4.0 3.5 - 5.0 mmol/L [facility] Comment: Please note: ??Patients with WBC >100,000 may have falsely elevated Potassium levels. ??For accurate Potassium quantification in these patients send serum separator tube (gold top) for subsequent determinations. ??Contact the Clinical Chemistry Laboratory if there are any questions. Chloride 105 98 - 107 mmol/L [facility] Carbon Dioxide 22 22 - 31 mmol/L [facility] Anion Gap 15 5 - 15 mmol/L [facility] Calcium 9.8 8.5 - 10.5 mg/dL [facility] Est Glomerular Filtration Rate 55(L) >=60 [facility] Comment: This estimated [...] the following links into your internet browser. [email or web address] Blood specimen (specimen) 07/18/2017 12:30 PM EDT 07/18/2017 12:36 PM EDT Narrative Resulting Agency Comment Spec In Lab Jake Montaño MD CHEMISTRY ORDERABLES [facility] [place] [address] * (ABNORMAL) Hemogram (07/18/2017 12:30 PM EDT) White Blood Cell 10.6(H) 4.0 - 9.5 x10(3)/[facility] Red Blood Cell 3.78(L) 4.00 - 5.21 x10(6)/ L [facility] Hemoglobin 12.8 11.7 - 15.5 gm/dL [facility] Hematocrit 37.4 35.7 - 45.8 % [facility] Mean Cell Volume 98.9(H) 82.6 - 94.4 fL [facility] Mean Cell Hemoglobin 33.9(H) 27.1 - 32.0 pg [facility] Mean Cell Hemoglobin Concentration 34.2 31.7 - 35.0 gm/dL [facility] Platelet 235 145 - 357 x10(3)/ L [facility] RDW Standard Deviation 46.1(H) 37.0 - 46.0 fL [facility] RDW coefficient of variation 12.8 11.5 - 14.1 % [facility] Mean Platelet Volume 9.7 7.6 - 12.9 fL [facility] NRBC% auto 0.0 % [facility] NRBC Absolute 0.000 0.000 - 0.000 x10(3)/ L [facility] Blood specimen (specimen) 07/18/2017 12:30 PM EDT 07/18/2017 12:36 PM EDT Narrative Resulting Agency Comment Spec In Lab Jake Montaño MD HEMATOLOGY ORDERABLE S [facility] [place] [address] documented in this encounter Visit Diagnoses Diagnosis Atherosclerosis of [place] artery of both lower extremities with intermittent claudication Atherosclerosis of [place] arteries of the extremities with intermittent claudication documented in this encounter Care Teams Gas Golf Cart Repairer Relationship Specialty Start Date End Date Demetra Goff APRN PCP - General 10/19/12 12/31/17 documented as of this encounter
--- OUTSIDE RECORDS SUMMARY | 2024-08-12 07:39 | XMS_ITS | Encounter Summary ---
[facility] [place] [address] Care Team Providers Care Paper Mill Superintendent Name Role Phone [place], Demetra Combs APRN Primary Care Provider [phone] Reason for Visit * Auth/Cert Specialty Diagnoses [...] Expiration Date Visits Re quested Visits Authorized [id number] 1 1 Encounter Details Date Type Department Care Team (Latest Contact Info) Description 08/15/2017 5:36 AM EDT - 08/17/2017 9:45 AM EDT Hospital Encounter [address] [place] [address] Jake Montaño MD [facility] [place] [address] Claudication in peripheral vascular disease Discharge Disposition: [...] (with a daily Aspirin as well.) We [id number] prescriptions to [facility] so that you could start taking these right away. We also sent 90-day prescriptions with refills to [facility] as you will be taking these indefinitely. For any problems or questions please call [phone] TERESA Sousa, systems checkout mechanic Nurse Clinician For issues on weeknights after 5pm and weekends please call [phone] and ask for the Vascular Fellow precision machinist. General Instructions None Future Appointments and Orders Future Appointments Provider Department Dept Phone 09/15/2017 10:30 AM Ana Oconnor [place] [facility] [place] [phone] 09/15/2017 11:15 AM Jake Montaño MD Vascular Surgery at [place] [phone] Future Orders Complete By Expires MARIYA, legs, multiple levels [VAS8 Custom] 09/16/2017 (Approximate) 08/17/2018 Process Instructions: There is no in-house vascular laboratory analyst available on weeknights (5pm-8am), weekends, or holidays. IF THIS IS A REQUEST FOR AN EMERGENT STUDY DURING THOSE HOURS, please have the senior provider responsible for the patient page the Vascular Surgery Fellow/Senior Resident precision machinist to discuss options. Scheduling Instructions: Questions: Indication for study/signs & symptoms: s/p left fem endart with B iliac stents Question to be answered: bloodflow to feet Which DH location will this be performed?: [place] Referral to Home Health - at DISCHARGE [[id number] CPT(R)] As directed Process Instructions: Scheduling Instructions: Comments: DOCUMENTATION FOR VNA SERVICES (INCLUDING THOSE PATIENTS WITH MEDICARE COVERAGE REQUIRING HOME VNA SERVICES AND/OR HOSPICE SERVICES) PATIENT'S LOCATION: [address] [address] (home) Cell: Telephone Information: Biztalk Administrator's Name: Self In discussion with the attending physician, it is certified that this patient is under their care and that they, or a Nurse Practitioner,Clinical Nurse specialist or Physician Poultry Tender who is working directly with them, had [...] re health issues HOME HEALTH CARE AGENCY: [facility]. PHONE: [phone] FAX: [phone] Start of care: 24-48 hours after discharge [...] APRN [address] / [place] [address] All VNA agencies which cover the area of patient's residence have been reviewed, either verbally danae writing, and patient/family have chosen the home health care agency noted Questions: Agency name and contact information: [facility] Patient location post discharge: Home [...] (with a daily Aspirin as well.) We [id number] prescriptions to [facility] so that you could start taking these right away. We also sent 90-day prescriptions with refills to [facility] as you will be taking these indefinitely. For any problems or questions please call [phone] TERESA Sousa, systems checkout mechanic Nurse Clinician For issues on weeknights after 5pm and weekends please call [phone] and ask for the Vascular Fellow precision machinist. documented in this encounter Medications at Time [...] Indications: Hypothyroidism 10/11/2022 fluticasone (FLONASE) 50 mcg/actuation [place], SuspensionIndications :Seasonal allergic rhinitis 2 sprays by [...] go home, denies pain, discomfort. VSS, student support advisor and instructor admin meds and discharge paperwork, [...] belongings with her andwas escorted to the [place] entrance via myself, where her daughter was [...] applicable: n/a CPG GOAL OUTCOME EVALUATION: * BronxChayito soares - 08/17/2017 7:00 AM EDT Vascular [...] RN - 08/16/2017 11:10 AM EDT The patient/labor service representative has been provided a list of Home Health Agencies/DME vendors which servetheir preferred geographic area. A letter describing our affiliations was reviewed with them and they were educated about their right to choose where referrals are placed. Patient requests referral to [facility] (RN visit) PHONE: [phone] FAX: [phone] Expected date of discharge: 08/16/17. Referral routed to the [employer] for matching with agency/vendor and to provide any required information. ALEXEI Schmitt, MS, BSN, RN, Pager [phone] Office of Care Management * Chayito Vincent [...] right fingers and left groin incision. Vascular leadership program intern Silvano johnson MD. 1635 Vascular at [...] times daily. ??? fluticasone (FLONASE) 50 mcg/actuation [place], Suspension 2 sprays by Each Nare route [...] Triphasic Dorsalis Pedis (Ankle) Artery 62 0.48 [place]-Biphasic Posterior Tibial (Ankle) Artery 87 0.68 [place]-Biphasic Stress test: no ischemia, EF 65% Imaging: [...] and 0.5/0.7 on left. CTA shows left CCO & PRESIDENT stenosis and right TRE near occlusion. 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 this lady at this time, drives, no GALINDO, ranch home [address] [facility] [facility] [address] Social & Family Supports/Community Resources: Sammi Extended Emergency Contact Information Primary Emergency Contact: Sammi Steel Address: [address] [place] [address] [facility] Mobile Relation: Child Secondary Emergency Contact: Bam Trevizo, PERRY [facility] Mobile Relation: Child Behavioral Health History: Hx depression and anxiety, on meds Substance Use/Abuse: Denies smoking, alcohol, or illicit drug use Other Pertinent/Service Specific Information: None Health/Prescription Coverage: Payor: JOSÉ MIGUEL SUAREZ / Plan: [place] / Product Type: *No Product type* / Secondary Insurance: None Prescription Coverage: see above Preferred Pharmacy: [facility] [place] [address] [facility] [address] [place] [facility] [place], [place] - [address] [facility]. [address] [facility] [address] [facility] [address] - [place], [place] - [address] [place] [address] Other: None Primary Care Provider: Demetra Goff APRN [phone] Patient/Caregiver Goals of Treatment: Safe dc plan [...] planning. ALEXEI Schmitt MS, BSN, RN, Pager [phone] Office of Care Management * Plan of Care - Teri Carmona RN - 08/16/2017 5:39 AM EDT Problem: Patient Care Overview Goal: Plan of Care Review Outcome: Ongoing (Interventions Implemented as Appropriate) 08/15/17 2131 08/16/17 5842 Plan of Care Review Progress -- improving [...] Pickard MD - 08/15/2017 11:52 AM EDT [facility] Operative Note Patient Name: Lindsey Deleon : [id number] MR#: [id number] Case Date: 08/15/2017 Surgeon: Surgeon(s) and Role: [...] Implant Name Type Inv. Item Serial No. Diathermy Equipment Repairer Lot No. LRB No. Used Action PATCH,BIOL,XENOSURE,.8X8CM ([id number]) - [id number] IMPLANTS PATCH,BIOL,XENOSURE,.8X8CM ([id number]) [facility] [employer] - [id number] Left 1 Implanted STENT,XPRESS,BLRY,8X40MM,75CM ([id number]) - [id number] IMPLANTS STENT,XPRESS,BLRY,8X40MM,75CM ([id number]) [employer] - [id number] Left 1 Implanted STENT,XPRESS,BLRY,8X40MM,135 ([id number]) - [id number] IMPLANTS STENT,XPRESS,BLRY,8X40MM,135 ([id number])[employer] - [id number] Right 1 Implanted CLOSU,VSL,PRCL,PRGLD,SMC,6FR ([id number]) - [id number] IMPLANTS CLOSU,VSL,PRCL,PRGLD,SMC,6FR ([id number])[employer] - [id number] Right 1 Implanted Findings: Bulky calcific plaque [...] and 0.5/0.7 on left. CTA shows left CCO & PRESIDENT stenosis and right TRE near occlusion. Plan [...] Operative Note Patient Name: Lindsey Deleon : [id number] MR#: [id number] Case Date: 08/15/2017 Surgeon: Surgeon(s) and Role: [...] PM EDT Office Visit Cardiology at [address] [place] [address] Rigoberto Diaz MD [facility] [place] [address] Scheduled Procedures Name Priority Associated Diagnoses Date/Ti me EGD, UPPER GI ENDOSCOPY (WRV U 2.09) Incontinence of feces, unspecified fecal incontinence type Dysphagia, unspecified type COLONOSCOPY, DIAGNOSTIC (WRV U 3.26) Incontinence of feces, unspecified fecal incontinence type Dysphagia, unspecified type documented as of this encounter Procedures Procedure Name Priority Date/Time Associated Diagnosis Comments SUPERVISOR NEWSPAPER DELIVERIES SCAN 08/18/2017 12:00 AM EDT HEMOGRAM Routine [...] in this encounter Results * SCAN DOC: SUPERVISOR NEWSPAPER DELIVERIES (08/18/2017 12:00 AM EDT) Anatomical Region Laterality Modality Other Narrative 08/18/2017 12:00 AM EDT Ordered by an unspecified provider. Scanning Provider MEDIA MGR SCAN EXT O RDR/RSLT * (ABNORMAL) Differential, Automated (08/17/2017 4:41 AM EDT) Neutrophil % 71.2 % [facility] Neutrophil Absolute 7.81(H) 1.70 - 6.10 x10(3)/[facility] Lymph % 14.2 % [facility] Lymphocytes Abs 1.6 0.9 - 3.2 x10(3)/[facility] Monocyte % 12.4 % [facility] Monocyte Abs 1.4(H) 0.3 - 0.9 x10(3)/[facility] Eos % 1.5 % [facility] Eosinophils Abs 0.2 0.0 - 0.4 x10(3)/[facility] Basophil % 0.3 % [facility] Baso Absolute 0.0 0.0 - 0.1 x10(3)/[facility] Immature Gran % 0.40 % [facility] Comment: Immature granulocytes(IG's)percentage and absolute count will include metamyelocytes, myelocytes, and promyelocytes. Blood smears from CBCs yielding IG's will be scanned manually for concordance. If this scan disagrees with the automated IG or if promyelocytes are noted, a manual differential will be performed. Immature Gran Absolute 0.04 0.00 - 0.04 x10(3)/ L [facility] Blood specimen (specimen) 08/17/2017 4:41 AM EDT 08/17/2017 5:00 AM EDT Narrative Resulting Agency Comment Spec In Lab Jake Montaño MD HEMATOLOGY ORDERABLE S [facility] [place] [address] * (ABNORMAL) Hemogram (08/17/2017 4:41 AM EDT) White Blood Cell 11.0(H) 4.0 - 9.5 x10(3)/ L [facility] Red Blood Cell 3.20(L) 4.00 - 5.21 x10(6)/ L [facility] Hemoglobin 10.8(L) 11.7 - 15.5 gm/dL [facility] Hematocrit 31.7(L) 35.7 - 45.8 % [facility] Mean Cell Volume 99.1(H) 82.6 - 94.[address] [facility] Mean Cell Hemoglobin 33.8(H) 27.1 - 32.[address] [facility] Mean Cell Hemoglobin Concentration 34.1 31.7 - 35.0 gm/dL [facility] Platelet 211 145 - 357 x10(3)/[facility] RDW Standard Deviation 46.1(H) 37.0 - 46.0 [facility] RDW coefficient of variation 12.6 11.5 - 14.1 % [facility] Mean Platelet Volume 9.8 7.6 - 12.[address] [facility] NRBC% auto 0.0 % [facility] NRBC Absolute 0.000 0.000 - 0.000 x10(3)/[facility] Blood specimen (specimen) 08/17/2017 4:41 AM EDT 08/17/2017 5:00 AM EDT Narrative Resulting Agency Comment Spec In Lab Jake Montaño MD HEMATOLOGY ORDERABLE S [facility] [place] [address] * Basic Metabolic Panel (non-fasting) (08/17/2017 4:41 AM EDT) Glucose 133 65 - 199 mg/dL [facility] Comment:Diabetes: >=200 mg/d L plus symptoms Blood Urea Nitrogen 10 8 - 18 mg/dL [facility] Creatinine 0.85 0.70 - 1.20 mg/dL [facility] Comment: Please note that the pediatric reference intervals supplied above were not validated at [facility]. Results from pediatric patients should [...] - 107 mmol/L [facility] Carbon Dioxide 24 22 - 31 mmol/L [facility] Anion Gap 14 5 - 15 mmol/L [facility] Calcium 8.9 8.5 - 10.5 mg/dL [facility] Est Glomerular Filtration Rate >60 >=60 [facility] Comment: [...] the following links into your internet browser. [email or web address] Blood specimen (specimen) 08/17/2017 4:41 AM EDT 08/17/2017 5:00 AM EDT Narrative Resulting Agency Comment Spec In Lab Jake Montaño MD CHEMISTRY ORDERABLES [facility] [place] [address] * (ABNORMAL) Differential, Automated (08/16/2017 5:27 AM EDT) Pathologist [facility] Neutrophil % 69.2 % [facility] Neutrophil Absolute 7.02(H) 1.70 - 6.10 x10(3)/ L [facility] Lymph % 18.2 % [facility] Lymphocytes Abs 1.8 0.9 - 3.2 x10(3)/ L [facility] Monocyte % 10.2 % [facility] Monocyte Abs 1.0(H) 0.3 - 0.9 x10(3)/ L [facility] Eos % 1.7 % [facility] Eosinophils Abs 0.2 0.0 - 0.4 x10(3)/[facility] Basophil % 0.2 % [facility] Baso Absolute 0.0 0.0 - 0.1 x10(3)/ L [facility] Immature Gran % 0.50 % [facility] Comment: Immature granulocytes(IG's)percentage and absolute count will include metamyelocytes, myelocytes, and promyelocytes. Blood smears from CBCs yielding IG's will be scanned manually for concordance. If this scan disagrees with the automated IG or if promyelocytes are noted, a manual differential will be performed. Immature Gran Absolute 0.05(H) 0.00 - 0.04 x10(3)/ L [facility] Blood specimen (specimen) 08/16/2017 5:27 AM EDT 08/16/2017 5:36 AM EDT Narrative Resulting Agency Comment Spec In Lab Jake Montaño MD [place] [address] * (ABNORMAL) Hemogram (08/16/2017 5:27 AM EDT) [facility] White Blood Cell 10.2(H) 4.0 - 9.5 x10(3)/mc L [facility] Red Blood Cell 3.50(L) 4.00 - 5.21 x10(6)/mc L [facility] Hemoglobin 11.7 11.7 - 15.5 gm/dL [facility] Hematocrit 35.1(L) 35.7 - 45.8 % [facility] Mean Cell Volume 100.3(H) 82.6 - 94.[address] [facility] Mean Cell Hemoglobin 33.4(H) 27.1 - 32.[address] [facility] Mean Cell Hemoglobin Concentration 33.3 31.7 - 35.0 gm/dL [facility] Platelet 207 145 - 357 x10(3)/ L [facility] RDW Standard Deviation 46.5(H) 37.0 - 46.0 [facility] RDW coefficient of variation 12.6 11.5 - 14.1 % [facility] Mean Platelet Volume 9.9 7.6 - 12.[address] [facility] NRBC% auto 0.0 % [facility] NRBC Absolute 0.000 0.000 - 0.000 x10(3)/ L [facility] Blood specimen (specimen) 08/16/2017 5:27 AM EDT 08/16/2017 5:36 AM EDT Narrative Resulting Agency Comment Spec In Lab Jake Montaño MD HEMATOLOGY ORDERABLE S [facility] [place] [address] * Basic Metabolic Panel (non-fasting) (08/16/2017 5:27 AM EDT) [facility] Glucose 116 65 - 199 mg/dL [facility] Comment:Diabetes: >=200 mg/d L plus symptoms Blood Urea Nitrogen 10 8 - 18 mg/dL [facility] Creatinine 0.92 0.70 - 1.20 mg/dL [facility] Comment: Please note that the pediatric reference intervals supplied above were not validated at [facility]. Results from pediatric patients should [...] - 107 mmol/L [facility] Carbon Dioxide 26 22 - 31 mmol/L [facility] Anion Gap 11 5 - 15 mmol/L [facility] Calcium 8.8 8.5 - 10.5 mg/dL [facility] Est Glomerular Filtration Rate >60 >=60 [facility] Comment: [...] the following links into your internet browser. [email or web address] [email or web address] Blood specimen (specimen) 08/16/2017 5:27 AM EDT 08/16/2017 5:36 AM EDT Narrative Resulting Agency Comment Spec In Lab Jake Montaño MD CHEMISTRY ORDERABLES [facility] [place] [address] * IR OR VASC Aniogram Image Storage Only (08/15/2017 10:41 AM EDT) Narrative LUDY CORREIA - 08/15/2017 10:39 AM EDT This exam is for storage only and is auto-finalizing. Jake Montaño MD IMG FILM LIBRARY ORD ERABLES MINGO Young * (ABNORMAL) BLOOD GAS 2 ARTERIAL (08/15/2017 8:18 AM EDT) pH, Arterial 7.36 7.35 - 7.45 [facility] PCO2, Arterial 40 35 - [address] [facility] PO2, Arterial 148(H) 85 - [address] [facility] Bicarbonate, Arterial 22.3 20.0 - 26.0 mmol/L [facility] Base Excess, Arterial -3.1(L) -3.0 - 3.0 mmol/L [facility] Hgb Blood Gas 12.0 11.7 - 15.5 gm/dL [facility] Oxyhemoglobin, Arterial 97.7(H) 94.0 - 97.0 % [facility] Carboxyhemoglob in, Arterial 0.8 % [facility] Comment: Nonsmokers: 0.5-1.5% COHB Smokers: Variable, but usually less than 10% Toxic: 20-30% COHB Lethal: Greater than 60% COHB Methemoglobin, Arterial 0.3 <=1.5 % [facility] Na Whole Blood 141 135 [...] MD POINT OF CARE TEST O RDERABLES [facility] [place] [address] * SCAN DOC: IMPLANTABLE DEVICES (08/15/2017 12:00 [...] Day of Surgery (Day of Procedure) [facility] 08/15/2017 6:30 AM EDT 1,000 mLs 100 [...] 1829 (Given - Provider: Alethea Akins RN) 0622 (Given - Provider: Teri Carmona RN)1254 (Given [...] Akins RN)1254 (Given - Provider: Alethea Akins RN)170 (Given - Provider: Alethea Akins RN)2010 (Given [...] 1745, Until Discontinued, Hold for SBP<110, Routine 183 (Not Given - Provider: lAethea Akins RN - Reason: Patient/family refused - [...] food., Routine 1852 (Given - Provider: Alethea Akins, RN) 0834 [...] Routine documented in this encounter Care Teams Paper Mill Superintendent Relationship Specialty Start Date End Date Demetra Goff APRN PCP - General 10/19/12 12/31/17 documented as of this encounter
--- OUTSIDE RECORDS SUMMARY | 2024-08-12 07:39 | XMS_ITS | Encounter Summary ---
[place] [address] Care Team Providers Care Dressmaker Or Tailor Name Role Phone Demetra Goff APRN Primary Care Provider [phone] Encounter Details Date Type Department Care Team (Late st Contact Info) Description 02/06/2017 Orders Only Sleep Center at [facility] [address] [place] [address] Alley Johnson APRN [facility] [place] [address] Social History Tobacco Use Types Packs/Day Years [...] PM EDT Office Visit Cardiology at [address] [address] Rigoberto Diaz MD [facility] [place] [address] Scheduled Procedures Name Priority Associated Diagnoses Date/Ti me EGD, UPPER GI ENDOSCOPY (WRV U 2.09) Incontinence of feces, unspecified fecal incontinence type Dysphagia, unspecified type COLONOSCOPY, DIAGNOSTIC (WRV U 3.26) Incontinence of feces, unspecified fecal incontinence type Dysphagia, unspecified type documented as of this encounter Visit Diagnoses Not on filedocumented in this encounter Care Teams Dressmaker Or Tailor Relationship Specialty Start Date End Date Demetra Goff APRN PCP - General 10/19/12 12/31/17 documented as of this encounter
--- OUTSIDE RECORDS SUMMARY | 2024-08-12 07:39 | XMS_ITS | Encounter Summary ---
[place] [address] Care Team Providers Care Ice Cream Vault Worker Name Role Phone Demetra Goff APRN Primary Care Provider [phone] Reason for Visit * Reason Comments Obstructive Sleep Apnea Encounter Details Date Type Department Care Team (Late st Contact Info) Description 03/14/2014 10:30 AM EDT Follow-Up Sleep Center at [facility] [address] [place] [address] Delmis Harding, EYEWEAR MANUFACTURING TECH SLEEP CENTER CHEMA on CPAP (Primary Dx) [...] CONTRERAS SAXENA MD MD * Delmis Harding, EYEWEAR MANUFACTURING TECH - 03/14/2014 10:20 AM EDT Sleep Medicine [...] does report occasional daytime sleepiness. Daytime Symptoms: [employer]: Not done Naps: no Involuntary Dozing: rarely [...] PM EDT Office Visit Cardiology at [address] [place] [id number] Rigoberto Diaz MD [facility] [place] [address] Scheduled Procedures Name Priority Associated Diagnoses Date/Ti me EGD, UPPER GI ENDOSCOPY (WRV U 2.09) Incontinence of feces, unspecified fecal incontinence type Dysphagia, unspecified type COLONOSCOPY, DIAGNOSTIC (WRV U 3.26) Incontinence of feces, unspecified fecal incontinence type Dysphagia, unspecified type documented as of this encounter Visit Diagnoses Diagnosis CHEMA on CPAP- Primary Obstructive sleep apnea (adult) (pediatric) documented in this encounter Care Teams Ice Cream Vault Worker Relationship Specialty Start Date End Date Demetra Goff APRN PCP - General 10/19/12 12/31/17 documented as of this encounter
--- OUTSIDE RECORDS SUMMARY | 2024-08-12 07:39 | XMS_ITS | Encounter Summary ---
Author Organization [facility]ly [facility] [place] [address] Care Team Providers Care Visiting Housekeeper Name Role Phone Lipscomb, Demetra Combs APRN Primary Care Provider [phone] Reason for Visit * Auth/Cert Specialty Diagnoses [...] Expiration Date Visits Re quested Visits Authorized [id number] 1 1 Encounter Details Date Type Department Care Team (Late st Contact Info) Description 08/02/2017 3:12 AM EDT - 08/02/2017 7:10 AM EDT Surgery [place] [address] Jake Montaño MD [facility] [place] [address] Not Performed @[email or web address], COMMON FEMORAL [...] Indications: Hypothyroidism 10/11/2022 fluticasone (FLONASE) 50 mcg/actuation [place], SuspensionIndications :Seasonal allergic rhinitis 2 sprays by [...] and we will then reschedule her operation. Prenra Pickard MD/MALIK, Pager [phone] Section of Vascular Surgery, PGY-4 documented in this encounter Plan of Treatment Upcoming Encounters Date Type Department Care Team (Late st Contact Info) Description 02/06/2025 2:40 PM EDT Office Visit Cardiology at [address] [address] Rigoberto Diaz MD [facility] [place] [address] Scheduled Procedures Name Priority Associated Diagnoses Date/Ti me EGD, UPPER GI ENDOSCOPY (WRV U 2.09) Incontinence of feces, unspecified fecal incontinence type Dysphagia, unspecified type COLONOSCOPY, DIAGNOSTIC (WRV U 3.26) Incontinence of feces, unspecified fecal incontinence type Dysphagia, unspecified type documented as of this encounter Visit Diagnoses Diagnosis Atherosclerosis of [place] artery of both lower extremities with intermittent claudication Atherosclerosis of [place] arteries of the extremities with intermittent claudication Atherosclerotic PVD with intermittent claudication Atherosclerosis of [place] arteries of the extremities with intermittent claudication Claudication in peripheral vascular disease Peripheral vascular disease, unspecified documented in this encounter Admitting Diagnoses Diagnosis Atherosclerotic PVD with intermittent claudication Atherosclerosis of [place] arteries of the extremities with intermittent claudication [...] RN) documented in this encounter Care Teams Visiting Housekeeper Relationship Specialty Start Date End Date Demetra Goff APRN PCP - General 10/19/12 12/31/17 documented as of this encounter
--- OUTSIDE RECORDS SUMMARY | 2024-08-12 07:39 | XMS_ITS | Encounter Summary ---
Author Organization [facility] [place] [address] Care Team Providers Care Tax Assessor Name Role Phone Graham, Demetra Combs APRN Primary Care Provider Encounter Details Date Type Department Care Team (Late st Contact Info) Description 08/14/2017 Telephone [place] [phone] Prerna Pickard MD [facility] [place] [address] Social History Tobacco Use Types Packs/Day Years [...] PM EDT Office Visit Cardiology at [address] [place] [phone] Rigoberto Diaz MD [facility] [place] [address] Scheduled Procedures Name Priority Associated Diagnoses Date/Ti me EGD, UPPER GI ENDOSCOPY (WRV U 2.09) Incontinence of feces, unspecified fecal incontinence type Dysphagia, unspecified type COLONOSCOPY, DIAGNOSTIC (WRV U 3.26) Incontinence of feces, unspecified fecal incontinence type Dysphagia, unspecified type documented as of this encounter Visit Diagnoses Not on filedocumented in this encounter Care Teams Tax Assessor Relationship Specialty Start Date End Date Demetra Goff APRN PCP - General 10/19/12 12/31/17 documented as of this encounter
--- OUTSIDE RECORDS SUMMARY | 2024-08-12 07:39 | XMS_ITS | Encounter Summary ---
[place] [address] Care Team Providers Care Political Anthropologist Name Role Phone Demetra Goff APRN Primary Care Provider [phone] Reason for Referral * Diagnostic Test (Routine) - Closed Specialty Diagnoses / Procedures Referred By Emy castillo Referred To Contact Radiology Diagnoses Intermittent claudication Procedures CT Angiogram Aorta Lower Extremity Runoff Tawanna Storey APRN [facility] [place] [address] [place] [address] Referral ID Status Reason Start Date Expiration Date V isits Requested Visits Authorized [id number] Closed Specialty Service Requested 06/16/2017 06/16/2018 1 1 Reason for Visit * Diagnostic Test (Routine) - Closed Specialty Diagnoses / Procedures Referred By Emy castillo Referred To Contact Radiology Diagnoses Intermittent claudication Procedures CT Angiogram Aorta Lower Extremity Runoff Tawanna Storey APRN [facility] [place] [address] [facility] [address] Scan [facility] [place] [address] Referral ID Status Reason Start Date Expiration Date V isits Requested Visits Authorized [id number] Closed Specialty Service Requested 06/16/2017 06/16/2018 1 1 Encounter Details Date Type Department Care Team (Latest Contact Info) Description 07/11/2017 9:10 AM EDT - 07/11/2017 11:59 PM EDT Hospital Encounter CT Scan at [facility] [place] [address] Tawanna Storey APRN [facility] [place] [place] [address] Intermittent claudication Discharge Disposition: Home [...] Indications: Hypothyroidism 10/11/2022 fluticasone (FLONASE) 50 mcg/actuation [place], SuspensionIndication s:Seasonal allergic rhinitis 2 sprays by Each Nare route daily as needed for Rhinitis. 16 g 3 05/03/2016 03/19/2021 loratadine (CLARITIN) 10 mg tablet Take 10 mg by mouth daily. 07/18/2017 [place]-3 Fatty Acids 500 mg Cap Take by [...] PM EDT Office Visit Cardiology at [address] [place] [address] Rigoberto Diaz MD [facility] [place] [address] Scheduled Procedures Name Priority Associated Diagnoses Date/Ti [...] above.. Tawanna Storey APRN IMG CT ORDERABLES documented in this encounter [...] mLs documented in this encounter Care Teams Political Anthropologist Relationship Specialty Start Date End Date Demetra Goff APRN PCP - General 10/19/12 12/31/17 documented as of this encounter
--- OUTSIDE RECORDS SUMMARY | 2024-08-12 07:39 | XMS_ITS | Encounter Summary ---
Author Organization [facility] Address [facility] [place] [address] Care Team Providers Care Email Developer Name Role Phone Demetra Goff APRN Primary Care Provider [phone] Reason for Visit * Consultation (Routine) - Closed Specialty Diagnoses / Procedures Referred By Emy castillo Referred To Contact Cardiology Diagnoses Hx of SVT, Paroxysmal Procedures Per [place] [facility] [place] Loving [place] [address] [place] [address] [facility] [address] [address] [place] [phone] Referral ID Status Reason Start Date Expiration Date V isits Requested Visits Authorized [id number] Closed Consult, Test & Treat Connection [facility] 05/05/2017 05/05/2018 1 1 Encounter Details Date Type Department Care Team (Late st Contact Info) Description 05/31/2017 3:20 PM EDT Office Visit Cardiology at [address] [address] Abdelrahman Frausto MD [facility] [place] [address] SVT (supraventricular tachycardia); Intermittent claudication [...] abnormal thyroid level. She was placed on [id number] ??g daily which she has been taking [...] Indications: Hypothyroidism ??? fluticasone (FLONASE) 50 mcg/actuation [place], Suspension 2 sprays by Each Nare route daily as needed for Rhinitis. 16 g 3 ??? loratadine (CLARITIN) 10 mg tablet Take 10 mg by mouth daily. ??? 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 She is currently [...] 2 marriages; a daughter who lives in [place] and a son who works for the [employer] and lives in [place] near [facility]. Habits: She quit smoking in 2003 as [...] PM EDT Office Visit Cardiology at [address] [place] [phone] Rigoberto Diaz MD [facility] [place] [address] Scheduled Procedures Name Priority Associated Diagnoses Date/Ti [...] Text Report Department: Vascular Surgery Lab Patient: [id number] (LINDSEY DELEON) CPT: 30421 ICD10: I73.9 Referring Physician: ABDELRAHMAN FRAUSTO ?? [...] ? Dorsalis Pedis (Ankle) Artery ?62 ?0.48 ??Morton-Biphasic ?? Posterior Tibial (Ankle) Artery ??87 ?0.68 ??Morton-Biphasic ?? Interpretation: RIGHT: Moderate to moderately severe [...] Frausto MD VASCULAR ORDERABLES Performing Organization Address [facility] de Phone Number VASCUBASE * (ABNORMAL) TSH (05/31/2017 5:04 PM EDT) Thyroid Stimulating Hormone 4.38(H) 0.27 - 4.20 mlU/ML [facility] Blood specimen (specimen) 05/31/2017 5:04 PM EDT 05/31/2017 5:40 PM EDT Narrative Resulting Agency Comment Spec In Lab Abdelrahman Frausto MD CHEMISTRY ORDERABLES Performing Organization Address [facility] Co de Phone Number [facility] [place] [address] * EKG 12 Lead (05/31/2017 4:17 PM EDT) Ventricular rate 65 BPM MUSE SYSTEM Atrial Rate 65 BPM MUSE SYSTEM P-R Interval 150 ms MUSE SYSTEM QRS Duration 124 ms MUSE SYSTEM Q-T Interval 442 ms MUSE SYSTEM QTC Calculated (Bezet) 459 ms MUSE SYSTEM Calculated P [place] 55 degrees MUSE SYSTEM Calculated R [place] -17 degrees MUSE SYSTEM Calculated T [place] 23 degrees MUSE SYSTEM INTERPRETATION Normal sinus [...] unspecified documented in this encounter Care Teams Email Developer Relationship Specialty Start Date End Date Demetra Goff APRN PCP - General 10/19/12 12/31/17 documented as of this encounter
--- OUTSIDE RECORDS SUMMARY | 2024-08-12 07:39 | XMS_ITS | Encounter Summary ---
Author Organization [facility] [place] [address] Care Team Providers Care Triage Specialist Name Role Phone Demetra Goff APRN Primary Care Provider [phone] Encounter Details Date Type Department Care Team (Latest Contact Info) Description 08/15/2017 - 08/15/2017 5:35 AM EDT Hospital Encounter Radiology Library at [facility] [place] [phone] Discharge Disposition: Home Social History Tobacco Use [...] Indications: Hypothyroidism 10/11/2022 fluticasone (FLONASE) 50 mcg/actuation [place], SuspensionIndications :Seasonal allergic rhinitis 2 sprays by [...] PM EDT Office Visit Cardiology at [address] [phone] Rigoberto Diaz MD [facility] [place] [address] Scheduled Procedures Name Priority Associated Diagnoses Date/Ti [...] Montaño MD IMG FILM LIBRARY ORD ERABLES [place], [place] documented in this encounter Visit Diagnoses Not on filedocumented in this encounter Care Teams Triage Specialist Relationship Specialty Start Date End Date Demetra Goff APRN PCP - General 10/19/12 12/31/17 documented as of this encounter
--- OUTSIDE RECORDS SUMMARY | 2024-08-12 07:39 | XMS_ITS | Encounter Summary ---
Author Organization [facility] [place] [address] Care Team Providers Care Bread Room Hand Name Role Phone Demetra Goff APRN Primary Care Provider [phone] Reason for Visit * Consultation (Routine) - Closed Specialty Diagnoses / Procedures Referred By Emy castillo Referred To Contact Sleep Center Diagnoses CHEMA treated with BiPAP Snoring SOB (shortness of breath) Procedures PRG POLYLSOM 6+ YRS SLEEP W CPAP W 4+ ADDL SKYLAR ATTND Alley Johnson APRN [facility] [place] [address] [facility] Sleep Medicine [address] [place] [address] Referral ID Status Reason Start Date Expiration Date V isits Requested Visits Authorized [id number] Closed Test Only 02/06/2017 02/06/2018 1 1 Encounter Details Date Type Department Care Team (Late st Contact Info) Description 03/28/2017 7:30 PM EDT Procedure visit Sleep Center at [facility] [address] [place] [address] Deya Ferro MD [facility] [place] [address] CHEMA (obstructive sleep apnea) (Primary Dx); Paroxysmal [...] noted of unclear significance. Deya Ferro MD [facility] Sleep Disorders Center REPORT of TITRATION Polysomnography Patient Name: iLndsey Deleon Study Date: 03/28/2017 Age & Sex: [...] 7.7 8.4 1.1 *[facility]-defined hypopneas include only hypopneas with a >=4% oxygen desaturation. Includes hypopneas with an arousal or with a 3%-4% desaturation. [facility] Hypopneas not included. Periodic Breathing Total Sleep [...] (minutes) REM (minutes) All Sleep (minutes) <=90% 0.4 1.5 0.0 1.5 <=89% 0.3 0.9 0.0 0.9 <=88% 0.1 0.5 0.0 0.5 90-99% 157.7 321.2 [...] IP/EP/O2 OAI EMILY LEFTY HI* RDI 18/0 14/11/0 15/11/0 /0 /0 /0 /0 /0 16/0 /0 /0 0.0 2.3 4.0 2.5 0.0 28.5 0.0 [...] IP/EP/O2 AHI Supine Non-Sup. REM Non-REM 0 14/11/0 0 0 /0 0 /0 /0 /0 /0 /0 12.1 21.6 23.9 10.0 13.7 47.5 10.4 [...] >=3% desaturations. Oxygen Saturations IP/EP/O2 Minimum Mean 18/12/0 [...] PM EDT Office Visit Cardiology at [address] [address] Rigoberto Diaz MD [facility] [place] [address] Scheduled Procedures Name Priority Associated Diagnoses Date/Ti [...] tachycardia documented in this encounter Care Teams Bread Room Hand Relationship Specialty Start Date End Date Demetra Goff APRN PCP - General 10/19/12 12/31/17 documented as of this encounter
--- OUTSIDE RECORDS SUMMARY | 2024-08-12 07:39 | XMS_ITS | Encounter Summary ---
[place] [address] Care Team Providers Care Substation Operator Chief Name Role Phone Demetra Goff APRN Primary Care Provider [phone] Reason for Visit * Reason Comments Obstructive Sleep Apnea Encounter Details Date Type Department Care Team (Late st Contact Info) Description 06/13/2014 10:30 AM EDT Follow-Up Sleep Center at [facility] [address] [place] [address] Delmis Harding, GAS APPLIANCE SERVICER HELPER SLEEP CENTER CHEMA on CPAP (Primary Dx) [...] encounter. RIGOBERTO FELIPE MD * Delmis Harding, GAS APPLIANCE SERVICER HELPER - 06/13/2014 10:27 AM EDT Sleep Medicine Clinical Health Specialist Brief Follow-Up Note HPI: Ms. Lindsey Mehta is a 63 y.o. female seen for follow-up of obstructive sleep apnea. Patient presents today for follow-up in PAP clinic: Sleep Study: 02/07/2008 Treatment: BIPAP Pressure: 22/16 cm Interface: FFmuzu tvo FX XS Fit: Was leaking-cushion was checked on last follow up and was not attached to the frame properly, creating a high leak Chin strap: no Humidifier Settin/3 Snoring: Not aware of Dry Mouth: sometimes Mouth Breathing: yes Patient Perceived Outcome: Patient reports she is getting good sleep and has minimal daytime fatigue. Daytime Symptoms: [place]: 3/24 Naps: Occasionally just to relax her [...] PM EDT Office Visit Cardiology at [address] [address] Rigoberto Diaz MD [facility] [address] [place] [address] Scheduled Procedures Name Priority Associated Diagnoses Date/Ti me EGD, UPPER GI ENDOSCOPY (WRV U 2.09) Incontinence of feces, unspecified fecal incontinence type Dysphagia, unspecified type COLONOSCOPY, DIAGNOSTIC (WRV U 3.26) Incontinence of feces, unspecified fecal incontinence type Dysphagia, unspecified type documented as of this encounter Visit Diagnoses Diagnosis CHEMA on CPAP- Primary Obstructive sleep apnea (adult) (pediatric) documented in this encounter Care Teams Substation Operator Chief Relationship Specialty Start Date End Date Demetra Goff APRN PCP - General 10/19/12 12/31/17 documented as of this encounter
--- OUTSIDE RECORDS SUMMARY | 2024-08-12 07:40 | XMS_ITS | Encounter Summary ---
[place] [address] Care Team Providers Care Dowel Setting Machine Operator Name Role Phone Demetra Goff APRN Primary Care Provider [phone] Encounter Details Date Type Department Care Team (Latest Contact Info) Description 02/13/2013 11:27 AM EDT - 02/13/2013 3:56 PM EDT Hospital En[place] [address] Larisa Posey MD [facility] [place] [address] Discharge Disposition: Home Social History Tobacco Use [...] occurs, please contact your MD/ Please call [phone] before 5pm with problems, questions or concerns. After 5pm call [phone] and ask to speak with the crew attendant chief radiation therapist. Discharge instructions reviewed with patient who expresses understanding. * Patient Instructions* Larisa Posey MD - 02/13/2013 1:34 PM EDT Please see Recommendations in the Provation procedure report which is documented in the procedural note in E-[facility]. * Attachments The following attachments cannot be sent through Care Everywhere. * UPPER GI ENDOSCOPY: WHAT TO EXPECT AT HOME (ROMANIAN) documented in this encounter Medications at Time [...] PM EDT Office Visit Cardiology at [address] [phone] Rigoberto Diaz MD [facility] [place] [address] Scheduled Procedures Name Priority Associated Diagnoses Date/Ti [...] 3:52 PM EDT) Surgical Pathology Report ? [facility] ? Provider: ?? LACY, LARISA E ? Pt. Name: ?? FIGUEREDO, LINDSEY D ? Acc #: ?[id number] ?Pt. ? Col Date: ?? 02/13/2013 ? [...] MD PATHOLOGY/CYTOLOGY O JORGITO Performing Organization Address [facility] de Phone Number KENN SOTOAMYOR * Specimen to Pathology (surgical or derm) (02/13/2013 1:50 PM EDT) AP Specimen 02/13/2013 1:50 PM EDT 02/13/2013 1:50 PM EDT Narrative KENN SOTOMAYOR - 02/13/2013 1:50 PM EDT Specimen requisition ordered. ??Separate Pathology report to follow Larisa Posey MD PATHOLOGY/CYTOLOGY O [place] Performing Organization Address [facility] de Phone Number KENN SOTOMAYOR * UPPER GI ENDOSCOPY (02/13/2013 12:45 PM EDT) UPPER GI ENDOSCOPY [facility] Endoscopy Patient Name: Lindsey Figueredo ? Procedure Date: 02/13/2013 12:45 PM ? N: [id number] ? Date of : 1950 ? Age: 62 ? Order #: [id number] ? Procedure: ? Upper GI endoscopy Indications: ? Dysphagia Providers: ? Larisa Posey MD, Susie Urena RN, ? Erika Green, Passementerie Worker, ? Jaimee Roy, Passementerie Worker Referring MD: ?Demetra Goff MD Requesting Provider: [...] Until Mon02/13/13 at 1756, For Procedural use. [place] on area for one second. May repeat [...] Susie Urena RN - Comment: meds for [id number]) fentaNYL 50mcg/mL injection (CANCELED) ONCE PRN, Starting [...] sedation) documented in this encounter Care Teams Dowel Setting Machine Operator Relationship Specialty Start Date End Date Demetra Goff APRN PCP - General 10/19/12 12/31/17 documented as of this encounter
--- OUTSIDE RECORDS SUMMARY | 2024-08-12 07:40 | XMS_ITS | Encounter Summary ---
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; GERD (gastroesophageal reflux disease) Social [...] PM EDT Office Visit Cardiology at [address] [place] [phone] Rigoberto Diaz MD [facility] [address] [place] [address] Scheduled Procedures Name Priority Associated Diagnoses Date/Ti [...] Visit Diagnoses Diagnosis Dysphagia- Primary Dysphagia, unspecified [place]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
--- OUTSIDE RECORDS SUMMARY | 2024-08-12 07:40 | XMS_ITS | Encounter Summary ---
Author Organization [facility] [place] [address] Care Team Providers Care Mechanical Specialist Name Role Phone Andres Hylton MD Primary Care Provider + [phone] Reason for Visit * Reason Comments GI Problem Encounter Details Date Type Department Care Team (Late st Contact Info) Description 10/11/2012 10:30 AM EST Office [place] [address] Citlalli Short, SKIDDER DRIVER [facility] [place] [address] GERD (gastroesophageal reflux disease); Colon cancer screening; [...] 2-3 weeks after testing. 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 5. Use Dulcolax suppository 10 mg [place]. If no bowel movement on day 3 [...] Short APRN Section of Gastroenterology and Hepatology [facility], [place] [address] documented in this encounter Plan of Treatment Upcoming Encounters Date Type Department Care Team (Late st Contact Info) Description 02/06/2025 2:40 PM EDT Office Visit Cardiology at [address] [address] Rigoberto Diaz MD [facility] [place] [address] Scheduled Procedures Name Priority Associated Diagnoses Date/Ti [...] IBS (irritable bowel syndrome) COMPREHENSIVE METABOLIC PANEL Routine 10/11/2012 12:00 PM EST Colon cancer screening IBS (irritable bowel syndrome) documented in this encounter Results * DIFFERENTIAL, AUTOMATED (10/11/2012 12:00 PM EST) Neutrophil % 59.0 34.0 - 71.0 % [facility] Neutrophil Absolute 5.35 1.50 - 6.30 x10(3)/mcL [facility] Lymph % 32.2 19.0 - 53.0 % [facility] Lymphocytes Abs 2.9 1.0 - 3.6 x10(3)/mcL [facility]ENNI[facility] Monocyte % 6.4 4.0 - 13.0 % [facility] Monocyte Abs 0.6 0.2 - 1.0 x10(3)/mcL [facility] Eos % 2.0 0.0 - 7.0 % [facility]NI[facility] Eosinophils Abs 0.2 0.0 - 0.5 x10(3)/mcL [facility] Basophil % 0.3 0.0 - 2.0 % [facility] Baso Absolute 0.0 0.0 - 0.2 x10(3)/mcL [facility] Immature Gran % 0.10 0.00 - 0.66 % [facility] Comment: Immature granulocytes(IG's)percentage and absolute count will include metamyelocytes, myelocytes, and promyelocytes. Blood smears from CBCs yielding IG's will be scanned manually for concordance. If this scan disagrees with the automated IG or if promyelocytes are noted, a manual differential will be performed. Immature Gran Absolute 0.01 0.00 - 0.05 x10(3)/mcL [facility] Blood specimen (specimen) 10/11/2012 12:00 PM EST 10/11/2012 12:05 PM EST Micky Posey MD HEMATOLOGY ORDERABLE S Performing Organization Address [facility] de Phone Number [facility] * Tissue transglutaminase, IgA (10/11/2012 12:00 PM EST) TTG IgA Ab <4.0 <=3.9 u/ml [facility] Comment: Result Interpretation: Negative: ?<4 U/mL Weak Positive: ??4-10 U/mL Positive: ?>10 U/mL Blood specimen (specimen) 10/11/2012 12:00 PM EST 10/11/2012 2:24 PM EST Narrative Resulting Agency Comment Spec In Lab Micky Posey MD IMMUNOLOGY ORDERABLE S Performing Organization Address [facility] de Phone Number [facility] * IgA (10/11/2012 12:00 PM EST) IgA 348 70 - 400 mg/dL [facility] Blood specimen (specimen) 10/11/2012 12:00 PM EST 10/11/2012 12:05 PM EST Narrative Resulting Agency Comment Spec In Lab Micky Posey MD CHEMISTRY ORDERABLES Performing Organization Address [facility] Phone Number [facility] * TSH (10/11/2012 12:00 PM EST) Thyroid Stimulating Hormone 4.10 0.27 - 4.20 mcIU/mL [facility] Blood specimen (specimen) 10/11/2012 12:00 PM EST 10/11/2012 12:05 PM EST Narrative Resulting Agency Comment Spec In Lab Micky Posey MD CHEMISTRY ORDERABLES [facility] * Comprehensive metabolic panel (non-fasting) (10/11/2012 12:00 PM EST) Glucose 98 60 - 199 mg/dL [facility] Comment:Diabetes: >=200 mg/d L plus symptoms Blood Urea Nitrogen 13 8 - 18 mg/dL [facility] Creatinine 0.76 0.70 - 1.20 mg/dL [facility] Comment: Please note that the pediatric reference intervals supplied above were not validated at [facility]. Results from pediatric patients should be interpreted [...] 103 98 - 107 mmol/L [facility] Carbon Dioxide 28 22 - 31 mmol/L [facility] Anion Gap 11 5 - 15 mmol/L [facility] Calcium 9.5 8.5 - 10.5 mg/dL [facility] Protein, Total 7.6 6.4 - 8.3 gm/dL [facility] Albumin 4.5 3.2 - 5.2 gm/dL [facility] Aspartate Aminotransferase 20 0 - 30 unit/L [facility] Alanine Aminotransferase 19 0 - 30 unit/L [facility] Alkaline Phosphatase 75 40 - 104 unit/L [facility] Bilirubin, Total 0.5 0.2 - 1.3 mg/dL [facility] Bilirubin, Direct 0.1 0.0 - 0.3 mg/dL [facility] Est Glomerular Filtration Rate >60 >=60 [facility] Comment: The National [...] In Lab Micky Posey MD CHEMISTRY ORDERABLES Performing Organization Address City/[facility] Co de Phone Number [facility] * (ABNORMAL) CBC (with Diff) (10/11/2012 12:00 PM EST) White Blood Cell 9.1 4.0 - 10.0 x10(3)/mc L [facility] Red Blood Cell 4.27 3.93 - 5.22 x10(6)/mc L [facility] Hemoglobin 13.8 11.2 - 15.7 gm/dL [facility] Hematocrit 40.6 34.0 - 45.0 % [facility] Mean Cell Volume 95.1(H) 79.0 - 94.0 fL [facility] Mean Cell Hemoglobin 32.3(H) 26.6 - 32.2 pg [facility] Mean Cell Hemoglobin Concentration 34.0 32.0 - 36.5 gm/dL [facility] Platelet 292 145 - 370 x10(3)/mc L [facility] RDW Standard Deviation 45.8 35.0 - 46.0 fL [facility] RDW coefficient of variation 13.2 10.9 - 14.4 % [facility] Mean Platelet Volume 9.9 9.0 - 12.0 fL [facility] Blood specimen (specimen) 10/11/2012 12:00 PM EST 10/11/2012 12:05 PM EST Narrative Resulting Agency Comment Spec In Lab Micky Posey MD HEMATOLOGY ORDERABLE S Performing Organization Address City/[facility] Co de Phone Number [facility] SOTOMAYOR documented in this encounter Visit Diagnoses Diagnosis GERD (gastroesophageal reflux disease) Esophageal reflux Colon cancer screening Special screening for malignant neoplasms, colon IBS (irritable bowel syndrome) Irritable bowel syndrome Depression Depressive disorder, not elsewhere classified Constipation Unspecified constipation documented in this encounter Care Teams Mechanical Specialist Relationship Specialty Start Date End Date Andres Hylton MD [address] [place] [address] PCP - General 10/19/10 10/18/12 documented as of this encounter
--- OUTSIDE RECORDS SUMMARY | 2024-08-12 07:40 | XMS_ITS | Encounter Summary ---
Author Organization [facility] [place] [address] Care Team Providers Care Solidworks Mechanical Designer Name Role Phone Demetra Goff APRN Primary Care Provider [phone] Reason for Referral * Surgical (Routine) - Closed Specialty Diagnoses / Procedures Referred By Emy castillo Referred To Contact General Surgery Diagnoses GERD (gastroesophageal reflux disease) Hiatal hernia Citlalli Short APRN [facility] [place] [address] [place] [address] Moncho Bowers MD [facility] [place] [address] Referral ID Status Reason Start Date Expiration Date V isits Requested Visits Authorized [id number] Closed Consult, Test & Treat 01/23/2013 07/22/2013 1 1 Encounter Details Date Type Department Care Team (Late st Contact Info) Description 01/23/2013 Telephone Gastroenterology at [facility] [place] [address] Citlalli Short APRN [facility] [place] [address] [place] [address] Social History Tobacco Use Types Packs/Day Years [...] PM EDT Office Visit Cardiology at [address] [phone] Rigoberto Diaz MD [facility] [place] [address] Scheduled Procedures Name Priority Associated Diagnoses Date/Ti [...] gangrene documented in this encounter Care Teams Solidworks Mechanical Designer Relationship Specialty Start Date End Date Demetra Goff APRN PCP - General 10/19/12 12/31/17 documented as of this encounter
--- OUTSIDE RECORDS SUMMARY | 2024-08-12 07:40 | XMS_ITS | Encounter Summary ---
[place] [address] Care Team Providers Care Control Panel Builder Name Role Phone Andres Hylton MD Primary Care Provider + [phone] Reason for Visit * Reason Comments Obstructive Sleep Apnea Encounter Details Date Type Department Care Team (Late st Contact Info) Description 04/24/2012 9:40 AM EDT [place] [address] Karin Meadows APRN [facility] [place] [address] CHEMA on CPAP (Primary Dx) Social History [...] this encounter Progress Notes * Karin Meadows, BLACK TOP MACHINE OPERATOR - 04/24/2012 10:44 AM EDT Report of [...] snore index= 0.0, avg leak= 48. Today's [place] Score is 5/24, indicating minimal daytime sleepiness. [...] Reviewed driving safety; pt is encouraged to pull socket assembler and nap if feeling unsafe behind the wheel at any time. 3. RTC 1 yr/PRN. documented in this encounter Plan of Treatment Upcoming Encounters Date Type Department Care Team (Late st Contact Info) Description 02/06/2025 2:40 PM EDT Office Visit Cardiology at [address] [place] [address] Rigoberto Diaz MD [facility] [place] [address] Scheduled Procedures Name Priority Associated Diagnoses Date/Ti me EGD, UPPER GI ENDOSCOPY (WRV U 2.09) Incontinence of feces, unspecified fecal incontinence type Dysphagia, unspecified type COLONOSCOPY, DIAGNOSTIC (WRV U 3.26) Incontinence of feces, unspecified fecal incontinence type Dysphagia, unspecified type documented as of this encounter Visit Diagnoses Diagnosis CHEMA on CPAP- Primary Obstructive sleep apnea (adult) (pediatric) documented in this encounter Care Teams Control Panel Builder Relationship Specialty Start Date End Date Andres Hylton MD [address] [place] [address] PCP - General 10/19/10 10/18/12 documented as of this encounter
--- OUTSIDE RECORDS SUMMARY | 2024-08-12 07:40 | XMS_ITS | Encounter Summary ---
[place] [address] Care Team Providers Care Boring Mill Operator Name Role Phone Demetra Goff APRN Primary Care Provider [phone] Reason for Visit * Reason Onset Date Comments Other 01/04/2013 Called to Resche dule Encounter Details Date Type Department Care Team (Late st Contact Info) Description 01/04/2013 Telephone [place] [address] Charla Cox Other (Called to [...] PM EDT Office Visit Cardiology at [address] [place] [address] Rigoberto Diaz MD [facility] [address] Scheduled Procedures Name Priority Associated Diagnoses Date/Ti me EGD, UPPER GI ENDOSCOPY (WRV U 2.09) Incontinence of feces, unspecified fecal incontinence type Dysphagia, unspecified type COLONOSCOPY, DIAGNOSTIC (WRV U 3.26) Incontinence of feces, unspecified fecal incontinence type Dysphagia, unspecified type documented as of this encounter Visit Diagnoses Not on filedocumented in this encounter Care Teams Boring Mill Operator Relationship Specialty Start Date End Date Demetra Goff APRN PCP - General 10/19/12 12/31/17 documented as of this encounter
--- OUTSIDE RECORDS SUMMARY | 2024-08-12 07:40 | XMS_ITS | Encounter Summary ---
[place] [address] Care Team Providers Care Expenditure Requisition Clerk Name Role Phone Stephens, Demetra Combs APRN Primary Care Provider [phone] Encounter Details Date Type Department Care Team (Latest Contact Info) Description 02/18/2013 8:03 PM EDT - 02/19/2013 3:56 PM EDT Hospital Encounter [place] [address] Mireya Calvin MD [facility] [place] [address] Discharge Disposition: Home Social History Tobacco Use [...] HOLIDAYS: ASK FOR THE GENERAL SURGERY RESIDENT CERTIFIED NOVELL ADMINISTRATOR IF ANY OF THE ABOVE OCCUR. Activity level: Increase your activity slowly. You may tire easily, so frequent rest periods may be necessary. Do not lift more than 10 pounds for 4 weeks. Walk three times a day. Use common sense. Don't exhaust yourself. Diet: You should follow a post Willem diet, as instructed by the tax revenue officer in the hospital for a period [...] at the [facility]. You will receive a letter in the mail confirming the appointment date and time. Your follow-up is very important to us. Please call [phone] if you do not hear from us [...] and discharge planning. Eulalia Hawk RN Pager# [phone] Clinical Foot Specialist Office of Care Management * Dung Steward MD - 02/19/2013 10:18 AM EDT [facility] Department of Surgery Inpatient Progress Note ID: [...] - Post-Willem Full diet for breakfast, d/c SERVICE DELIVERY MANAGER and add po pain control, and [...] - 02/19/2013 6:45 AM EDT [place], ms first aid teacher for pain, newman removed at 0615. Slept [...] - 02/18/2013 7:48 PM EDT Pt given SERVICE DELIVERY MANAGER button with instructions for use; appears [...] Pain. 350 mL 0 PCP: DEMETRA BLANKENSHIP, SOCIAL MEDIA COORDINATOR, Scheduled Appointments: The following appointments have been scheduled on your behalf: Future Appointments Date Time Provider Department Center 03/19/2013 11:40 AM Mireya Calvin MD [facility] Patient Instructions: Call your doctor if you develop: Fever greater than 101.3 degrees Farenheit (38.5 degrees Celcius), chills, nausea or vomiting. Alsocall if you develop severe pain not relieved by your prescribed oral pain medicine. CALL THE GENERAL SURGERY CLINIC DURING WORKING HOURS AT , OR CALL AFTERCLINIC HOURS, WEEKENDS AND HOLIDAYS: ASK FOR THE GENERAL SURGERY RESIDENT CERTIFIED NOVELL ADMINISTRATOR IF ANY OF THE ABOVE OCCUR. Activity level: Increase your activity slowly. You may tire easily, so frequent rest periods may be necessary. Do not lift more than 10 pounds for 4 weeks. Walk three times a day. Use common sense. Don't exhaust yourself. Diet: You should follow a post Willem diet, as instructed by the tax revenue officer in the hospital for a period [...] at the [facility], You will receive a letter in the mail confirming the appointment date and time. Your follow-up is very important to us. Please call [phone] if you do not hear from us [...] HOLIDAYS: ASK FOR THE GENERAL SURGERY RESIDENT CERTIFIED NOVELL ADMINISTRATOR IF ANY OF THE ABOVE OCCUR. Activity level: Increase your activity slowly. You may tire easily, so frequent rest periods may be necessary. Do not lift more than 10 pounds for 4 weeks. Walk three times a day. Use common sense. Don't exhaust yourself. Diet: You should follow a post Willem diet, as instructed by the tax revenue officer in the hospital for a period [...] at the [facility]. You will receive a letter in the mail confirming the appointment date and time. Your follow-up is very important to us. Please call [phone] if you do not hear from us [...] Calvin MD - 02/18/2013 5:24 PM EDT [facility] Operative Note Patient Name: Lindsey Deleon : [id number] MR#: [id number] Case Date: 02/18/2013 Surgeon: Surgeon(s) and Role: [...] the esophagus at the gastroesophageal junction. The [place] drain was held in place using an [...] direction posterior to the esophagus. A 60 Portuguese bougie was passed by Anesthesia down the [...] was assured. The abdomen was irrigated. The [place] drain was cut and removed. The liver [...] Operative Note Patient Name: Lindsey Deleon : [id number] MR#: [id number] Case Date: 02/18/2013 Surgeon: Surgeon(s) and Role: [...] PM EDT Office Visit Cardiology at [address] [phone] Rigoberto Diaz MD [facility] [place] [address] Scheduled Procedures Name Priority Associated [...] 02/19/2013 6:35 AM EDT BASIC METABOLIC PANEL Routine 02/19/2013 6:35 AM EDT MODIFIER TOUPET FUNDOPLASTY 02/18/2013 2:36 PM EDT paraesophageal hernia LAPAROSCOPIC PARAESOPHAGEAL HERNIA REPAIR W/FUNDOPLASTY, W/O MESH (WRVU 26.6) 02/18/2013 2:36 PM EDT paraesophageal hernia documented in this encounter Results * (ABNORMAL) Differential, Automated (02/19/2013 6:35 AM EDT) Neutrophil % 66.8 34.0 - 71.0 % [facility] Neutrophil Absolute 7.62(H) 1.50 - 6.30 x10(3)/mc L [facility] Lymph % 21.2 19.0 - 53.0 % [facility] Lymphocytes Abs 2.4 1.0 - 3.6 x10(3)/mc L [facility] Monocyte % 11.3 4.0 - 13.0 % [facility] Monocyte Abs 1.3(H) 0.2 - 1.0 x10(3)/mc L [facility] Eos % 0.3 0.0 - 7.0 % [facility] Eosinophils Abs 0.0 0.0 - 0.5 x10(3)/mc L [facility] Basophil % 0.1 0.0 - 2.0 % [facility] Baso Absolute 0.0 0.0 - 0.2 x10(3)/mc L CERNER [...] differential will be performed. Immature Gran Absolute 0.03 0.00 - 0.05 x10(3)/mc L [facility] Blood specimen (specimen) 02/19/2013 6:35 AM EDT 02/19/2013 6:45 AM EDT Ismael Hernandez MD HEMATOLOGY ORD ERABLES [facility] * Magnesium (02/19/2013 6:35 AM EDT) Magnesium 0.75 0.69 - 1.07 mmol/L [facility] Blood specimen (specimen) 02/19/2013 6:35 AM EDT 02/19/2013 6:45 AM EDT Narrative Resulting Agency Comment Spec In Lab Ismael Heranndez MD CHEMISTRY ORDE SIA Performing Organization Address City/[facility]/ZIP Co de Phone Number [facility] MILLENNI[facility] * (ABNORMAL) Basic Metabolic Panel (non-fasting) (02/19/2013 6:35 AM EDT) Glucose 101 60 - 199 mg/dL [facility] Comment:Diabetes: >=200 mg/d L plus symptoms Blood Urea Nitrogen 13 8 - 18 mg/dL [facility]ILL[facility]NI[facility] Creatinine 0.57(L) 0.70 - 1.20 mg/dL [facility] MILLENNIUM Comment: Please note that the pediatric reference intervals supplied above were not validated at [facility]. Results from pediatric patients should be interpreted [...] 102 98 - 107 mmol/L [facility] MILLENNIUM Carbon Dioxide 27 22 - 31 mmol/L [facility] MILLENNIUM Anion Gap 9 5 - 15 mmol/L [facility]ILLENNI[facility] Calcium 8.6 8.5 - 10.5 mg/dL [facility] MILLENNIUM Est Glomerular Filtration Rate [...] with diabetic kidney disease. References: http://nkdep.nih.gov/resources/NKDEP_Suggestn4Labs_0606_508.pdf http://www.kidney.org/professionals/kls/pdf/faq_gfr.pdf yRan K, Salvador NA, Elias AK, Og TS, Mynor AD, Mohsen MARTINA. Relative performance of the MDRD and CKD-EPI equations for estimating glomerular filtration rate among patients with varied clinical presentations. Clin J Am Soc Nephrol;6:1963-72. Blood specimen (specimen) 02/19/2013 6:35 AM EDT 02/19/2013 6:45 AM EDT Narrative Resulting Agency Comment Spec In Lab Ismael Hernandez MD CHEMISTRY R[place]MOND STOVALL [facility] MILLENNI[facility] * (ABNORMAL) CBC (with Diff) (02/19/2013 6:35 AM EDT) White Blood Cell 11.4(H) 4.0 - 10.0 x10(3)/mc L [facility] MILLENNIUM Red Blood Cell 3.89(L) 3.93 - 5.22 x10(6)/mc L [facility]ILL[facility] Hemoglobin 12.7 11.2 - 15.7 gm/dL [facility]ILLENNIUM Hematocrit 36.8 34.0 - 45.0 % [facility] MILLENNIUM Mean Cell Volume 94.6(H) 79.0 - 94.0 fL [facility] MILLENNIUM Mean Cell Hemoglobin 32.6(H) 26.6 - 32.2 pg [facility] MILLENNIUM Mean Cell Hemoglobin Concentration 34.5 32.0 - 36.5 gm/dL [facility] MILLENNIUM Platelet 226 145 - 370 x10(3)/mc L [facility] MILLENNIUM RDW Standard Deviation 43.8 35.0 - 46.0 fL [facility] MILLENNIUM RDW coefficient of variation 12.7 10.9 - 14.4 % [facility] MILLENNIUM Mean Platelet Volume 9.7 9.0 - 12.0 fL [facility] MILLENNIUM [...] 1,000 mLs 100 mL/hr morphine 1 mg/mL SERVICE DELIVERY MANAGER 30 mL Intravenous, SERVICE DELIVERY MANAGER ONLY, Starting on Mon02/18/13 at 1815, [...] Marcial De Jesus, RANGEL) morphine 1 mg/mL SERVICE DELIVERY MANAGER 30 mL (CANCELED) Intravenous, SERVICE DELIVERY MANAGER ONLY, Starting on Mon02/18/13 at 1815, [...] Routine documented in this encounter Care Teams Expenditure Requisition Clerk Relationship Specialty Start Date End Date Demetra Blankenship APRN PCP - General 10/19/12 12/31/17 documented as of this encounter
--- OUTSIDE RECORDS SUMMARY | 2024-08-12 07:40 | XMS_ITS | Encounter Summary ---
[place] [address] Care Team Providers Care Ladderman Name Role Phone Andres Hylton MD Primary Care Provider [phone] Reason for Visit * Reason Comments Obstructive Sleep Apnea Encounter Details Date Type Department Care Team (Late st Contact Info) Description 10/10/2011 1:40 PM EST Office [place] [address] Karin Meadows APRN [facility] [place] [address] CHEMA on CPAP (Primary Dx) Social History [...] this encounter Progress Notes * Karin Meadows, CHECK WRITING MACHINE OPERATOR - 10/10/2011 2:47 PM EST Report of [...] was provided with a 'loaner' machine from [employer] x 3 months. SHe was reissued her [...] snore index= 0.0, avg leak= 57. Today's [place] Score is /24, indicating Current Sleep Habitus: [...] Reviewed driving safety; pt is encouraged to lime puller and nap if feeling unsafe behind the wheel at any time. 3. RTC 3 mos/PRN. documented in this encounter Plan of Treatment Upcoming Encounters Date Type Department Care Team (Late st Contact Info) Description 02/06/2025 2:40 PM EDT Office Visit Cardiology at [address] [place] [address] Rigoberto Diaz MD [facility] [place] [address] Scheduled Procedures Name Priority Associated Diagnoses Date/Ti me EGD, UPPER GI ENDOSCOPY (WRV U 2.09) Incontinence of feces, unspecified fecal incontinence type Dysphagia, unspecified type COLONOSCOPY, DIAGNOSTIC (WRV U 3.26) Incontinence of feces, unspecified fecal incontinence type Dysphagia, unspecified type documented as of this encounter Visit Diagnoses Diagnosis CHEMA on CPAP- Primary Obstructive sleep apnea (adult) (pediatric) documented in this encounter Care Teams Ladderman Relationship Specialty Start Date End Date Andres Hylton MD [address] [place] [address] PCP - General 10/19/10 10/18/12 documented as of this encounter
--- OUTSIDE RECORDS SUMMARY | 2024-08-12 07:40 | XMS_ITS | Encounter Summary ---
[place] [address] Care Team Providers Care Portfolio Administrator Name Role Phone Demetra Goff APRN Primary Care Provider [phone] Reason for Visit * Reason Onset Date Comments Other 01/21/2013 gastro Encounter Details Date Type Department Care Team (Late st Contact Info) Description 01/21/2013 Telephone [place] [phone] Jannette Courtney RN Other (gastro) Social History [...] qd-BID 5. Use Dulcolax suppository 10 mg [place] prn. If no bowel movement on day [...] PM EDT Office Visit Cardiology at [address] [place] [address] Rigoberto Diaz MD [facility] [place] [address] Scheduled Procedures Name Priority Associated Diagnoses Date/Ti me EGD, UPPER GI ENDOSCOPY (WRV U 2.09) Incontinence of feces, unspecified fecal incontinence type Dysphagia, unspecified type COLONOSCOPY, DIAGNOSTIC (WRV U 3.26) Incontinence of feces, unspecified fecal incontinence type Dysphagia, unspecified type documented as of this encounter Visit Diagnoses Not on filedocumented in this encounter Care Teams Portfolio Administrator Relationship Specialty Start Date End Date Demetra Goff APRN PCP - General 10/19/12 12/31/17 documented as of this encounter
--- OUTSIDE RECORDS SUMMARY | 2024-08-12 07:40 | XMS_ITS | Encounter Summary ---
[place] [address] Care Team Providers Care Beef Cattle Farm Manager Name Role Phone Demetra Goff APRN Primary Care Provider [phone] Reason for Visit * Reason Comments Gastroesophageal Reflux Encounter Details Date Type Department Care Team (Late st Contact Info) Description 01/30/2013 8:00 AM EST Office [place] [address] Moncho Bowers MD [facility] [place] [address] GERD (gastroesophageal reflux disease) (Primary Dx); HTN [...] MD - 01/30/2013 8:46 AM EST Lindsey Deleon is a 62-year-old female referred to me [...] our 45-minute visit 40 minutes was in [id number] conversation regarding the path of physiology of [...] PM EDT Office Visit Cardiology at [address] [place] [address] Rigoberto Diaz MD [facility] [place] [address] Scheduled Procedures Name Priority Associated Diagnoses Date/Ti [...] hypertension documented in this encounter Care Teams Beef Cattle Farm Manager Relationship Specialty Start Date End Date Demetra Goff APRN PCP - General 10/19/12 12/31/17 documented as of this encounter
--- OUTSIDE RECORDS SUMMARY | 2024-08-12 07:40 | XMS_ITS | Encounter Summary ---
[place] [address] Care Team Providers Care Bounty Trapper Name Role Phone WilkinsonJoanne barrazalibby Combs APRN Primary Care Provider [phone] Encounter Details Date Type Department Care Team (Late st Contact Info) Description 12/06/2012 2:00 PM EST - 12/06/2012 3:00 PM EST Surgery [place] [address] Sindhu Dumont MD [facility] DR GASTROENTER[place]Y [place] [address] COLONOSCOPY, DIAGNOSTIC (WRVU 3.26) Social History Tobacco [...] occur please notify your MD. Please call [phone] before 5pm with problems, questions or concerns. After 5 pm call [phone] and ask to speak with the GI fellow owner professional engineer. Discharge instructions reviewed with patient who expresses understanding. * Attachments The following attachments cannot be sent through Care Everywhere. * COLONOSCOPY: WHAT TO EXPECT AT HOME (ALGERIAN) * UPPER GI ENDOSCOPY: WHAT TO EXPECT AT HOME (ALGERIAN) documented in this encounter Medications at Time [...] by mouth. 05/31/2017 MAGNESIUM CHLORIDE MISC by [facility].(Non-Drug; Combo Route) route. 12/21/2012 [...] fluticasone (FLONASE) 50 mcg/Actuation nasal spray 2 Benavides(s), Nasal, QHS ??? Vitamin A-Vitamin C-Vit E-Min [...] PM EDT Office Visit Cardiology at [address] [address] Rigoberto Diaz MD [facility] [place] [address] Scheduled Procedures Name Priority Associated Diagnoses Date/Ti [...] 5:18 PM EST) Surgical Pathology Report ? [facility] ? Provider: ?? SINDHU DUMONT ?Pt. Name: ?? DELEON, LINDSEY ? Acc #: ?[id number] ?Pt. ? Col Date: ?? 12/06/2012 ? [...] MD PATHOLOGY/CYTOLOGY O JORGITO Performing Organization Address [facility] Co de Phone Number [facility] * Specimen to Pathology (surgical or derm) (12/06/2012 2:50 PM EST) AP Specimen 12/06/2012 2:50 PM EST 12/06/2012 2:50 PM EST Narrative CERNER MILLENNIUM - 12/06/2012 2:50 PM EST Specimen requisition ordered. ??Separate Pathology report to follow Sindhu Dumont MD PATHOLOGY/CYTOLOGY O JORGITO Performing Organization Address City/State/[facility] Co de Phone Number [facility] * COLONOSCOPY (12/06/2012 1:34 PM EST) COLONOSCOPY [facility] Endoscopy Patient Name: Lindsey Deleon ? Procedure Date: 12/06/2012 1:34 PM ? Date of : 1950 ? Age: 61 ? Order #: [id number] ? Procedure: ? Colonoscopy Indications: ? High [...] (12/06/2012 1:33 PM EST) UPPER GI ENDOSCOPY [facility] Endoscopy Patient Name: Lindsey Deleon ? Procedure Date: 12/06/2012 1:33 PM ? N: [id number] ? Date of : 1950 ? Age: 61 ? Order #: [id number] ? Procedure: ? Upper GI endoscopy Indications: [...] PM PROVATION 12/06/2012 1:33 PM EST Demetra Combs Wilkinson MARSH BUGGY OPERATOR GENERAL SURGICAL ORD ERABLES PROVATION documented in [...] RN) documented in this encounter Care Teams Bounty Trapper Relationship Specialty Start Date End Date Demetra Goff APRN PCP - General 10/19/12 12/31/17 documented as of this encounter
--- OUTSIDE RECORDS SUMMARY | 2024-08-12 07:40 | XMS_ITS | Encounter Summary ---
[place] [address] Care Team Providers Care Dictaphone Mechanic Name Role Phone Maverick, Demetra Combs APRN Primary Care Provider [phone] Encounter Details Date Type Department Care Team (Late st Contact Info) Description 02/18/2013 2:41 PM EDT Anesthesia Event [place] [address] Mega Cat MD [facility] [place] [address] Marycruz Mayes CRNA [facility] [place] [address] Anesthesia Record Procedure Summary Procedure Name Responsible Anesthesiologist Anesthesia Start Time Anesthesia Stop Time LAPAROSCOPIC PARAESOPHAGEAL HERNIA REPAIR W/FUNDOPLASTY, W/O MESH (WRVU 26.6) (Esophagus) Mega Cat MD 02/18/13 1441 02/18/13 1745 Events Date Time Event Comment 02/18/2013 1325 1441 Start 1447 AN Verify 1447 An Start Data 1454 An Induction 1454 An Intubation 1454 Anesthesia Ready 1511 Break/Relief In SE TORRES NSCHMIDT, SEMICONDUCTOR WAFERS ETCHER STRIPPER 1527 Break/Relief Out 1734 Extubation/LMA Out 1735 [...] DIAGNOSTIC performed by Mik Dumont MD at [facility] ENDOSCOPY ??? Upper gi endoscopy, biopsy 12/06/2012 EGD WITH BIOPSY performed by Mik Dumont MD at [facility] ENDOSCOPY ??? Cholecystectomy ??? Tubal ligation History [...] consented to blood products. Plan discussed with SEMICONDUCTOR WAFERS ETCHER STRIPPER and attending. Misc. Assessment: documented in this encounter Miscellaneous Notes * Addendum Note - Mega Cat MD - 02/18/2013 6:06 PM EDT * Addendum Note - Mega Cat MD - 02/18/2013 6:06 PM EDT documented in this encounter Plan of Treatment Upcoming Encounters Date Type Department Care Team (Late st Contact Info) Description 02/06/2025 2:40 PM EDT Office Visit Cardiology at [address] [id number] Rigoberto Diaz MD [facility] [place] [address] Scheduled Procedures Name Priority Associated Diagnoses Date/Ti [...] mg documented in this encounter Care Teams Dictaphone Mechanic Relationship Specialty Start Date End Date Demetra Goff APRN PCP - General 10/19/12 12/31/17 documented as of this encounter
--- OUTSIDE RECORDS SUMMARY | 2024-08-12 07:40 | XMS_ITS | Encounter Summary ---
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 Name Role Phone Pcp, None MD Primary Care Provider Unavailabl e Reason for Visit * Reason Comments Diarrhea Encounter Details Date Type Department Care Team (Late st Contact Info) Description 04/16/2017 7:05 AM EDT - 04/16/2017 9:51 AM EDT Emergency [facility] Emergency Dept [address], [place] [id number] Sveta Banda MD Diarrhea, unspecified type (Primary Dx) Discharge Disposition: Home or Self Care Social History Tobacco Use Types Packs/Day Years Used Date Smoking Tobacco: Former Sex and Gender Information Value Date Recorded Sex Assigned at Not on file Gender Identity Not on file Sexual Orientation Not on file documented as of this encounter Last Filed Vital Signs Vital Sign Reading Time Taken Comments Blood Pressure 184/83 04/16/2017 9:19 AM EDT Pulse 90 04/16/2017 9:19 AM EDT Temperature 36.7 ??C (98 ??F) 04/16/2017 7:00 AM EDT Respiratory Rate 18 04/16/2017 9:19 AM EDT Oxygen Saturation 100% 04/16/2017 9:19 AM EDT Inhaled Oxygen Concentration - - Weight 95.3 kg (210 lb) 04/16/2017 7:06 AM EDT Height 162.6 cm (5' 4) 04/16/2017 7:06 AM EDT Body Mass Index 36.05 04/16/2017 7:06 AM EDT documented in this encounter Discharge Instructions * Discharge Instructions* Sultana Boggs - 04/16/2017 9:32 AM EDT Images from the original note were not included. Dear Mrs. Mehta: Thank you for choosing the [facility] Emergency Department, the premier emergency department in the [place] area. I hope your visit today was EXCELLENT. Specific instructions for your visit today: Maintain a BRAT (bananas, rice, applesauce, toast) diet for the next several days. Progress your diet when comfortable. Diarrhea ?? You have been diagnosed with diarrhea. ?? You have diarrhea when you have stools (bowel movements) that are soft or liquid, or when you have too many stools in a day. You may also have stomach cramps/ pains, nausea (feeling sick to your stomach), vomiting and fever (temperature higher than 100.4??F / 38??C). ?? Diarrhea can be caused by bacteria, viruses and parasites. People sometimes get ???traveler s diarrhea.?? They get it when they go to other countries. It is caused by bacteria. ?? People with diarrhea often lose a lot of body fluids. This causes dehydration. Drink a lot of wateror other fluids to stay hydrated. You may also be given medicine for your diarrhea. It will slow the diarrhea and stop the vomiting (if you have this symptom). ?? You should drink lots of natural juices or a sports-type drink that has electrolytes (sodium, potassium, etc). Do not drink a lot of plain water. Sugary drinks like apple and pear juice might make the diarrhea worse. ?? You might be given medicine to help you with your diarrhea, nausea (feeling sick), vomiting and stomach cramps. This will depend on your age, medical history and symptoms. ?? It is OK for you to go home today. ?? Good hygiene (keeping clean) helps to keep the problem from spreading. Please wash your hands often, using soap and water, especially after using the bathroom. Do not prepare food or share food, drinks or utensils (forks, knives, etc.) with other people. ?? While you were here today your stool may have been sent for special tests. In a few days, you will need to follow up with your regular doctor. You will get the test results and find out if you need any changes in your treatment. We will try to reach you if there are any results that need attention right away. ?? It is very important that you follow up with your regular doctor or a specialist. The doctor will tell you how soon this follow-up needs to be. ?? YOU SHOULD SEEK MEDICAL ATTENTION IMMEDIATELY, EITHER HERE OR AT THE NEAREST EMERGENCY DEPARTMENT, IF ANY OF THE FOLLOWING OCCURS: ?? You are vomiting and cannot keep down fluids. ?? There is blood, pus or mucous in your stool. ?? You have symptoms of dehydration. These include dry mouth, not urinating (peeing) at least once every eight hours, feeling dizzy/lightheaded, severe weakness or passing out. If you do not continue to improve or your condition worsens, please contact your doctor or return immediately to the Emergency Department. Sincerely, Sveta Banda MD Attending Emergency Physician [facility] Emergency Department [facility] Our full service onsite pharmacy is located in the ER waiting room. Open 7 days a week from 9 am to11 pm. We accept all major insurances and prices are competitive with major retailers. Ask your provider to print your prescriptions down to the pharmacy to speed you on your way home. OBTAINING A PRIMARY CARE APPOINTMENT Primary care physicians (PCPs, also known as primary care doctors) are either internists or family medicine doctors. Both types of PCPs focus on health promotion, disease prevention, patient education and counseling, and treatment of acute and chronic medical conditions. Call for an appointment with a primary care doctor. Ask to see who is taking new patients. [facility] telephone: [phone] [email or web address] DOCTOR REFERRALS Call (available 24 hours a day, 7 days a week) if you need any further referrals andwe can help you find a primary care doctor or specialist. Also, available online at: [email or web address] YOUR CONTACT INFORMATION Before leaving please check with registration to make sure we have an up-to-date contact number. You can call registration at [phone] to update your information. For questions about your hospital bill, please call [phone]. For questions about your Emergency Dept Physician bill please call . FREE HEALTH SERVICES If you need help with health or social sciences department chair, please call 2-1-1 for a free referral to resourcesin your area. 2-1-1 is a free service connecting people with information on health insurance, free clinics, , mental health, dental care, food assistance, housing, and substance abuse counseling. Also, available online at: [email or web address] MEDICAL RECORDS AND TESTS Certain laboratory test results do not come back the same day, for example urine cultures. We will contact you if other important findings are noted. Radiology films are often reviewed again to ensure accuracy. If there is any discrepancy, we will notify you. Please call [phone] to cone picker a complimentary CD of any radiology studies performed. If you or your doctor would like to request a copy of your medical records, please call [phone]. ORTHOPEDIC INJURY Please know that significant injuries can exist even when an initial x-ray is read as normal or negative. This can occur because some fractures (broken bones) are not initially visible on x-rays. Forthis reason, close outpatient follow-up with your primary care doctor or bone specialist (orthopedist) is required. MEDICATIONS AND FOLLOWUP Please be aware that some prescription medications can cause drowsiness. Use caution when driving or operating machinery. The examination and treatment you have received in our Emergency Department is provided on an emergency basis, and is not intended to be a substitute for your primary care physician. It is important that your doctor checks you again and that you report any new or remaining problems at that time. 24 HOUR PHARMACIES The nearest 24 hour pharmacy is: [facility] at [facility] [address] [id number] ASSISTANCE WITH INSURANCE Affordable Care Act (ALEKSANDR) Call to start or finish an application, compare plans, enroll or ask a question. TTY: Web: Healthcare.gov Help Enrolling in Medicaid [facility] (TOLL-FREE) (TTY) Web: Http://www.coverva.org Local Help Enrolling in the ALEKSANDR [facility] (MAIN) Email: Web: Http://www.[employer].org Address: [id number] [place] [address] [address] [place] [address] SEDATING MEDICATIONS Sedating medications include strong pain medications (e.g. narcotics), muscle relaxers, benzodiazepines (used for anxiety and as muscle relaxers), Benadryl/diphenhydramine and other antihistamines for allergic reactions/itching, and other medications. If you are unsure if you have received a sedating medication, please ask your physician or nurse. If you received a sedating medication: DO NOT drive a car. DO NOT operate machinery. DO NOT performjobs where you need to be alert. DO NOT drink alcoholic beverages while taking this medicine. If you get dizzy, sit or lie down at the first signs. Be careful going up and down stairs. Be extracareful to prevent falls. Never give this medicine to others. Keep this medicine out of reach of children. Do not take or save old medicines. Throw them away when outdated. Keep all medicines in a cool, dry place. DO NOT keep them in your bathroom medicine cabinet or in acabinet above the stove. MEDICATION REFILLS Please be aware that we cannot refill any prescriptions through the ER. If you need further treatment from what is provided at your ER visit, please follow up with your primary care doctor or your landscape painter. FREESTANDING EMERGENCY DEPARTMENTS OF [facility] Did you know [facility] has two freestanding ERs located just a few miles away? [facility] ER [facility] have short wait times, easy free parking directly in front of the building and top patient satisfaction scores - and the same Board Certified Emergency Medicine doctorsas [facility]. Carl Mehta [id number] [phone] 04/16/2017 Discharge Instructions As always, you are the most important factor in your recovery. Please follow these instructions carefully. If you have problems that we have not discussed, CALL OR VISIT YOUR DOCTOR RIGHT AWAY. If you can't reach your doctor, return to the emergency department. I Carl Mehta understand the written and discussed instructions. My questions have been answered. I acknowledge receipt of these instructions. Patient or responsible person: Patient's Signature Physician or Nurse documented in this encounter Medications at Time of Discharge Medication Sig Dispensed Refills Start Date End Date albuterol (PROVENTIL) (2.5 MG/3ML) 0.083% nebulizer solution Take 2.5 mg by nebulization every 6 (six) hours as needed for Wheezing. albuterol-ipratropium (COMBIVENT RESPIMAT) 20-100 MCG/ACT Aero Soln Inhale 1 puff into the lungs 4 (four) times daily. aspirin EC 81 MG EC tablet Take 81 mg by mouth daily. cetirizine (ZYRTEC) 10 MG tablet Take 10 mg by mouth daily. citalopram (CELEXA) 20 MG tablet Take 20 mg by mouth daily. ezetimibe-simvastatin (VYTORIN) 10-10 MG per tablet Take 1 tablet by mouth nightly. fluticasone (FLOVENT HFA) 110 MCG/ACT inhaler Inhale 1 puff into the lungs 2 (two) times daily. folic acid (FOLVITE) 1 MG tablet Take 1 mg by mouth daily. levothyroxine (SYNTHROID, LEVOTHROID) 50 MCG tablet Take 50 mcg by mouth Once a day at 6:00am. lisinopril (PRINIVIL,ZESTRIL) 10 MG tablet Take 10 mg by mouth daily. ziprasidone (GEODON) 20 MG capsule Take 20 mg by mouth 2 (two) times daily with meals. loperamide (IMODIUM) 2 MG capsule Take 1 capsule (2 mg total) by mouth 4 (four) times daily as needed for Diarrhea. 30 capsule 0 04/16/2017 documented as of this encounter ED Notes * Prerna Ramirez RN - 04/16/2017 7:11 AM EDT Pt reports diarrhea since Monday, denies any pain. * Sveta Banda MD - 04/16/2017 7:08 AM EDT [facility] EMERGENCY DEPARTMENT H&P CLINICAL SUMMARY Diagnosis: Final diagnoses: Diarrhea, unspecified type MDM notes: Carl Mehta is a 66 y.o. female with diarrhea. Mildly dry appearing. No high risk features. VSWNL. Will get basic labs, try for stool (understands won't change plan here), imodium and reassess.Discussed with family at length including hygiene, possible delay in drive back to [place]. Clinical Course in the ED: 8:40 AM Re-eval. Pt feeling a little bit better. 9:25 AM Re-eval. Pt feeling significantly better. She has perked up. Only 1-2 episodes of diarrhea since arrival. Feeling much better. Discussed fluids, BRAT diet, return precautions. Disposition: ED Disposition Discharge Carl Mehta discharge to home/self care. Condition at disposition: Stable CLINICAL INFORMATION HPI: Chief Complaint: Diarrhea Carl Mehta is a 66 y.o. female with pmhx of HTN, high cholesterol, and thyroid disorder presenting with 4 days of NBNB diarrhea. Onset 4 days ago, pt has had multiple episodes of diarrhea, 20-30x/day. Pt notes seeing trace amounts of blood yesterday and 2 days ago, however none today. There is associated bowel urgency and gas.Pt is tolerating PO foods and fluids. She has not travelled internationally recently, nor is she onabx. Pt has not taken any medications for her sxs. Pt states she has had a colonoscopy in the past with polyp removal, however nothing concerning. Pt states having a persistent cough, and notes a history of cigarette smoking, however not currently. Pt is visiting family from [place]. Denies fever, N/V, abdominal pain, rectal pain, urinary sxs, vaginal bleeding, rash. Allergic to kaopectate. History provided by patient and family PCP: PcpElsa MD ROS: Review of Systems Constitutional: Negative. HENT: Negative. Respiratory: Positive for cough. Negative for chest tightness. Cardiovascular: Negative. Gastrointestinal: Positive for diarrhea. Negative for nausea, vomiting, abdominal pain, constipation, blood in stool, anal bleeding and rectal pain. Genitourinary: Negative. Musculoskeletal: Negative. Skin: Negative. All other systems reviewed and are negative. Physical Exam: Pulse 84 BP 119/70 mmHg Resp 16 SpO2 95 % Temp 98 ??F (36.7 ??C) Physical Exam Constitutional: She is oriented to person, place, and time. She appears well- developed and well-nourished. No distress. Mildly dry lips, skin, tongue. HENT: Head: Normocephalic and atraumatic. Nose: Nose normal. Mouth/Throat: Oropharynx is clear and moist. Poor dentition. Eyes: Conjunctivae are normal. Right eye exhibits no discharge. Left eye exhibits no discharge. Neck: Normal range of motion. Neck supple. Cardiovascular: Normal rate, regular rhythm and normal heart sounds. Exam reveals no friction rub. No murmur heard. Pulmonary/Chest: Effort normal and breath sounds normal. No respiratory distress. She has no wheezes. She has no rales. She exhibits no tenderness. Abdominal: Soft. Bowel sounds are normal. She exhibits no distension. There is no tenderness. Thereis no rebound and no guarding. Musculoskeletal: Normal range of motion. She exhibits no edema or tenderness. Neurological: She is alert and oriented to person, place, and time. Skin: Skin is warm and dry. No rash noted. She is not diaphoretic. No erythema. No pallor. Psychiatric: She has a normal mood and affect. Her behavior is normal. Nursing note and vitals reviewed. PAST HISTORY Primary Care Provider: PcpElsa MD PMH/PSH: Carl Mehta has a past medical history of Hypertension; Disorder of thyroid; Emphysema lung;and Hypercholesteremia. She has no past surgical history on file. Social/Family History: She reports that she has quit smoking. She does not have any smokeless tobacco history on file. Heralcohol and drug histories are not on file. Her family history is not on file. Listed Medications on Arrival: Previous Medications ALBUTEROL (PROVENTIL) (2.5 MG/3ML) 0.083% NEBULIZER SOLUTION Take 2.5 mg by nebulization every 6 (six) hours as needed for Wheezing. ALBUTEROL-IPRATROPIUM (COMBIVENT RESPIMAT) 20-100 MCG/ACT AERO SOLN Inhale 1 puff into the lungs 4 (four) times daily. ASPIRIN EC 81 MG EC TABLET Take 81 mg by mouth daily. CETIRIZINE (ZYRTEC) 10 MG TABLET Take 10 mg by mouth daily. CITALOPRAM (CELEXA) 20 MG TABLET Take 20 mg by mouth daily. EZETIMIBE-SIMVASTATIN (VYTORIN) 10-10 MG PER TABLET Take 1 tablet by mouth nightly. FLUTICASONE (FLOVENT HFA) 110 MCG/ACT INHALER Inhale 1 puff into the lungs 2 (two) times daily. FOLIC ACID (FOLVITE) 1 MG TABLET Take 1 mg by mouth daily. LEVOTHYROXINE (SYNTHROID, LEVOTHROID) 50 MCG TABLET Take 50 mcg by mouth Once a day at 6:00am. LISINOPRIL (PRINIVIL,ZESTRIL) 10 MG TABLET Take 10 mg by mouth daily. ZIPRASIDONE (GEODON) 20 MG CAPSULE Take 20 mg by mouth 2 (two) times daily with meals. Allergies: She is allergic to kaopectate and latex. VISIT INFORMATION Medications Given in the ED: ED Medication Orders Start Ordered Status Ordering Provider 04/16/17 0731 04/16/17 0730 loperamide (IMODIUM) capsule 2 mg Once Route: Oral Ordered Dose: 2 mg Last JAN action: Given SVETA BANDA 04/16/17 0713 04/16/17 0712 sodium chloride 0.9 % bolus 1,000 mL Once Route: Intravenous Ordered Dose: 1,000 mL Last JAN action: New Bag SVETA BANDA Procedures: Interpretations: RESULTS Lab Results: Lab Results UA, Reflex to Microscopic (pts 3 + yrs) (Edited Result - FINAL) Component (Lab Inquiry) Collection Time Result Time Urine Type COLOR U CLARITY U Specific [place] UA Urine pH 04/16/17 08:13:00 04/16/17 08:51:00 Clean Catch Yellow Hazy 1.018 5.0 Collection Time Result Time LEUA NITRITE Protein, UR Glucose, UA KETONES U 04/16/17 08:13:00 04/16/17 08:51:00 Negative Negative Negative Negative Negative Collection Time Result Time Urobilinogen, UA BILI UR Blood, UA WBC U Squamous Epithelial Cells, Urine 04/16/17 08:13:00 04/16/17 08:51:00 Normal Negative Negative NOTE: URINE CHEMISTRY INDICATORS ARE NEGATIVE. URINE MICROSCOPIC NOT INDICATED. 0 - 5 0 - 5 CBC with differential (Final result) Abnormal Component (Lab Inquiry) Collection Time Result Time WBC Hgb HCT Platelets RBC 04/16/17 07:47:00 04/16/17 08:24:00 9.93 13.8 40.1 261 (!)4.12 (L) Collection Time Result Time MCV MCH MCHC RDW MPV 04/16/17 07:47:00 04/16/17 08:24:00 97.3 (!)33.5 (H) 34.4 13 10.0 Collection Time Result Time Neutrophils Lymphocytes Automated Monocytes Eosinophils Automated Basophils Automated 04/16/17 07:47:00 04/16/17 08:24:00 68 22 9 1 0 Collection Time Result Time Immature Granulocyte Nucleated RBC NEUTRO ABS Abs Lymph Automated Abs [place] Automated 04/16/17 07:47:00 04/16/17 08:24:00 0 0 6.76 2.13 0.87 Collection Time Result Time Abs Eos Automated Absolute Baso Automated Absolute Immature Granulocyte 04/16/17 07:47:00 04/16/17 08:24:00 0.12 0.02 0.03 Basic Metabolic Panel (Final result) Abnormal Component (Lab Inquiry) Collection Time Result Time Glucose BUN CREATININE CALCIUM NA 04/16/17 07:47:00 04/16/17 08:13:00 (!)133 (H) ADA guidelines for diabetes mellitus: Fasting: Equal to or greater than 126 mg/dL Random: Equal to or greater than 200 mg/dL (!)21.0 (H) (!)1.1 (H) 10.0 138 Collection Time Result Time K CL CO2 04/16/17 07:47:00 04/16/17 08:13:00 4.4 109 (!)19 (L) Ova and Parasites (stool crypto and giardia antigen test) (In process) Result time: 04/16/17 07:47:43 In process Narrative: Parasite Screen Stool for WBC (In process) Result time: 04/16/17 08:07:15 Rotavirus Antigen (Stool) (In process) Result time: 04/16/17 08:07:15 GFR (Final result) Component (Lab Inquiry) Collection Time Result Time EGFR 04/16/17 07:47:00 04/16/17 08:13:00 49.4 Disease State Reference Ranges: Chronic Kidney Disease; < 60 ml/min/1.73 sq.m Kidney Failure; < 15 ml/min/1.73 sq.m [Calculated using IDMS-Traceable MDRD equation (based on gender, age and black vs. non-black race) recommended by National Kidney Disease Education Program. No data available for non-white, non-black race.] GFR estimates are unreliable in patients with: Rapidly changing kidney function or recent dialysis, extreme age, body size or body composition(obesity, severe malnutrition). Abnormal muscle mass (limb amputation, muscle wasting). In these patients, alternative determinations of GFR should be obtained. Radiology Results: No orders to display Scribe Attestation: I was acting as a scribe for Sveta Banda MD on MEHTA,CARL D Treatment Team: Scribe: Sultana Boggs I am the first provider for this patient and I personally performed the services documented. Treatment Team: Scribe: Sultana Boggs is scribing for me on MEHTA,CARL D. This note accurately reflects work and decisions made by me. MD Leon Pratt Miriam R, MD 04/16/17 0930 * Mary Zuñiga RN - 04/16/2017 7:05 AM EDT Bed: S 20 Expected date: Expected time: Means of arrival: Comments: documented in this encounter Plan of Treatment Not on file documented as of this encounter Procedures Procedure Name Priority Date/Time Associated Diagnosis Comments URINALYSIS WITH REFLEX TO MICROSCOPIC EXAM IF INDICATED STAT 04/16/2017 8:13 AM EDT STOOL FOR WBC STAT 04/16/2017 7:47 AM EDT GFR STAT 04/16/2017 7:47 AM EDT ROTAVIRUS ANTIGEN, STOOL STAT 04/16/2017 7:47 AM EDT CBC AND DIFFERENTIAL STAT 04/16/2017 7:47 AM EDT STOOL CRYPTOSPORIDIUM PARVUM AND GIARDIA LAMBLIA, ANTIGEN STAT 04/16/2017 7:47 AM EDT BASIC METABOLIC PANEL STAT 04/16/2017 7:47 AM EDT documented in this encounter Results * UA, Reflex to Microscopic (pts 3 + yrs) (04/16/2017 8:13 AM EDT) Urine Type Clean Catch 04/16/2017 8:42 AM EDT [facility] Color, UA Yellow Clear - Yellow 04/16/2017 8:[address] [facility] Clarity, UA Hazy Clear - Hazy 04/16/2017 8:42 AM EDT [facility] Specific [place] UA 1.018 1.001 - 1.035 04/16/2017 8:42 AM EDT [facility] Urine pH 5.0 5.0 - 8.0 04/16/2017 8:42 AM EDT [facility] Leukocyte Esterase, UA Negative Negative 04/16/2017 8:42 AM EDT [facility] Nitrite, UA Negative Negative 04/16/2017 8:42 AM EDT [facility] Protein, UR Negative Negative 04/16/2017 8:42 AM EDT [facility] Glucose, UA Negative Negative 04/16/2017 8:42 AM EDT [facility] Ketones UA Negative Negative 04/16/2017 8:42 AM EDT [facility] Urobilinogen, UA Normal 0.2 - 2.0 mg/dL 04/16/2017 8:42 AM EDT [facility] Bilirubin, UA Negative Negative 04/16/2017 8:42 AM EDT [facility] Blood, UA Negative Negative 04/16/2017 8:42 AM EDT [facility] Comment: NOTE: ??URINE CHEMISTRY INDICATORS ARE NEGATIVE. ??URINE ? MICROSCOPIC NOT INDICATED. WBC, UA 0 - 5 0 - 5 /hpf 04/16/2017 8:51 AM EDT [facility] Squamous Epithelial Cells, Urine 0 - 5 0 - 25 /hpf 04/16/2017 8:51 AM EDT [facility] Urine specimen (specimen) 04/16/2017 8:13 AM EDT 04/16/2017 8:37 AM EDT Sveta Banda MD URINE ORDERABLES Performing Organization Address City/State/[facility] Co de Phone Number [facility] * GFR (04/16/2017 7:47 AM EDT) EGFR 49.4 04/16/2017 8:13 AM EDT [facility] Comment: Disease State Reference Ranges: ??Chronic Kidney Disease; < 60 ml/min/1.73 sq.m ??Kidney Failure; < 15 ml/min/1.73 sq.m ??[Calculated using IDMS-Traceable MDRD equation (based on ??gender, age and black vs. non-black race) recommended by ??National Kidney Disease Education Program. No data ??available for non-white, non-black race.] GFR estimates are unreliable in patients with: ??Rapidly changing kidney function or recent dialysis, ??extreme age, body size or body composition(obesity, ??severe malnutrition). Abnormal muscle mass (limb ??amputation, muscle wasting). In these patients, ??alternative determinations of GFR should be obtained. 04/16/2017 7:47 AM EDT 04/16/2017 7:59 AM EDT Sveta Banda MD LAB BLOOD ORDERABLES Performing Organization Address [facility] de Phone Number [facility] * Rotavirus Antigen (Stool) (04/16/2017 7:47 AM EDT) Stool specimen (specimen) (Stool) 04/16/2017 7:47 AM EDT 04/16/2017 8:07 AM EDT Narrative [facility] - 04/16/2017 9:41 AM EDT ?ORDERED BY: SVETA BANDA SOURCE: Stool ?COLLECTED: ??04/16/17 07:47 ANTIBIOTICS AT [facility].: ?RECEIVED : ??04/16/17 08:07 Rotavirus, Rapid Antigen ? FINAL ? 04/16/17 09:41 04/16/17 ?? Negative for Rotavirus Antigen ? Reference Range: Negative Sveta Banda MD MICROBIOLOGY - GENER AL ORDERABLES Performing Organization Address [facility] de Phone Number [facility] * Stool for WBC (04/16/2017 7:47 AM EDT) Neutrophils Serrano Stain None Seen None Seen 04/16/2017 10:[address] [facility] Eosinophils Serrano Stain None Seen None Seen 04/16/2017 10:06 AM EDT [facility] RBC Serrano Stain None Seen None Seen 04/16/20 17 10:06 AM EDT [facility] Lymphocytes Serrano Stain None Seen None Seen 04/16/2017 10:06 AM EDT [facility] Stool 04/16/2017 7:47 AM EDT 04/16/2017 8:07 AM EDT Sveta Banda MD BODY FLUIDS AND STOO LS ORDERABLES Performing Organization Address [facility] Phone Number [facility] * Ova and Parasites (stool crypto and giardia antigen test) (04/16/2017 7:47 AM EDT) Stool specimen (specimen) (Stool) 04/16/2017 7:47 AM EDT 04/16/2017 1:28 PM EDT Narrative [facility] - 04/16/2017 5:02 PM EDT ?ORDERED BY: SVETA BANDA SOURCE: Stool ?COLLECTED: ??04/16/17 07:47 ANTIBIOTICS AT MARIE.: ?RECEIVED : ??04/16/17 13:28 O and P Screen-Cryptosporidium/Giardia Ag ??FINAL ? 04/16/17 17:02 04/16/17 ?? Negative for Cryptosporidium parvum antigen ? Negative for Giardia lamblia antigen Sveta Banda MD MICROBIOLOGY - GENER AL ORDERABLES [facility] [address] [place] [address] * (ABNORMAL) Basic Metabolic Panel (04/16/2017 7:47 AM EDT) Glucose 133(H) 70 - 100 mg/dL 04/16/2017 8:[address] [facility] Comment: ADA guidelines for diabetes mellitus: Fasting: ??Equal to or greater than 126 mg/dL Random: ?? Equal to or greater than 200 mg/dL BUN 21.0(H) 7.0 - 19.0 mg/dL 04/16/2017 8:[address] [facility] Creatinine 1.1(H) 0.6 - 1.0 mg/dL 04/16/2017 8:[address] [facility] Calcium 10.0 8.5 - 10.5 mg/dL 04/16/2017 8:[address] [facility] Sodium 138 136 - 145 mEq/L 04/16/2017 8:[address] [facility] Potassium 4.4 3.5 - 5.1 mEq/L 04/16/2017 8:[address] [facility] Chloride 109 100 - 111 mEq/L 04/16/2017 8:[address] [facility] CO2 19(L) 22 - 29 mEq/L 04/16/2017 8:[address] [facility] Blood specimen (specimen) 04/16/2017 7:47 AM EDT 04/16/2017 7:59 AM EDT Sveta Banda MD LAB BLOOD ORDERABLES [facility] * (ABNORMAL) CBC with differential (04/16/2017 7:47 AM EDT) WBC 9.93 3.50 - 10.80 x10 3/uL 04/16/2017 8:[address] [facility] Hgb 13.8 12.0 - 16.0 g/dL 04/16/2017 8:[address] [facility] Hematocrit 40.1 37.0 - 47.0 % 04/16/2017 8:[address] [facility] Platelets 261 140 - 400 x10 3/uL 04/16/2017 8:[address] [facility] RBC 4.12(L) 4.20 - 5.40 x10 6/uL 04/16/2017 8:[address] [facility] MCV 97.3 80.0 - 100.0 fL 04/16/2017 8:[address] [facility] MCH 33.5(H) 28.0 - 32.0 pg 04/16/2017 8:[address] [facility] MCHC 34.4 32.0 - 36.0 g/dL 04/16/2017 8:[address] [facility] RDW 13 12 - 15 % 04/16/2017 8:[address] [facility] MPV 10.0 9.4 - 12.3 fL 04/16/2017 8:[address] [facility] Neutrophils 68 None % 04/16/2017 8:[address] [facility] Lymphocytes Automated 22 None % 04/16/2017 8:[address] [facility] Monocytes 9 None % 04/16/2017 8:[address] [facility] Eosinophils Automated 1 None % 04/16/2017 8:[address] [facility] Basophils Automated 0 None % 04/16/2017 8:[address] [facility] Immature Granulocytes 0 None % 04/16/2017 8:[address] [facility] Nucleated RBC 0 0 - 1 /100 WBC 04/16/2017 8:24 AM EDT [facility] Neutrophils Absolute 6.76 1.80 - 8.10 x10 3/uL 04/16/2017 8:24 AM EDT [facility] Lymphocytes Absolute Automated 2.13 0.50 - 4.40 x10 3/uL 04/16/2017 8:24 AM EDT [facility] Monocytes Absolute Automated 0.87 0.00 - 1.20 x10 3/uL 04/16/2017 8:24 AM EDT [facility] Eosinophils Absolute Automated 0.12 0.00 - 0.70 x10 3/uL 04/16/2017 8:24 AM EDT [facility] Basophils Absolute Automated 0.02 0.00 - 0.20 x10 3/uL 04/16/2017 8:24 AM EDT [facility] Immature Granulocytes Absolute 0.03 0 x10 3/uL 04/16/2017 8:24 AM EDT [facility] Blood specimen (specimen) BLOOD SPECIMEN / Unknown 04/16/2017 7:47 AM EDT 04/16/2017 7:59 AM EDT Sveta Banda MD LAB BLOOD ORDERABLES [facility] documented in this encounter Visit Diagnoses Diagnosis Diarrhea, unspecified type- Primary documented in this encounter Administered Medications Inactive Administered Medications - up to 3 most recent administrations Medication Order MAR Action Action Date Dose Rate Site loperamide (IMODIUM) capsule 2 mg 2 mg, Oral, Once, On 04/16/17 at 0731, For 1 dose Given 04/16/2017 9:17 AM EDT 2 mg sodium chloride 0.9 % bolus 1,000 mL 1,000 mL, Intravenous, Administer over 60 Minutes, Once, On 04/16/17 at 0713, For 1 dose New Bag 04/16/2017 7:57 AM EDT 1,000 mLs 1000 mL/hr documented in this encounter Active and Recently Administered Medications Times are shown in EDT. Scheduled Medication Order 04/14/2017 04/15/2017 04/16/2017 loperamide (IMODIUM) capsule 2 mg (COMPLETED) 2 mg, Oral, Once, On 04/16/17 at 0731, For 1 dose 0917 (Given - Provid er: Ezio Chahal RN) sodium chloride 0.9 % bolus 1,000 mL (COMPLETED) 1,000 mL, Intravenous, Administer over 60 Minutes, Once, On [place] 04/16/17 at 0713, For 1 dose 0757 (New Bag - Prov ider: Ezio Chahal RN) documented in this encounter Care Teams Aquatic Life Laborer Relationship Specialty Start Date End Date Pcp, None, PCP - General 04/16/17 documented as of this encounter
--- OUTSIDE RECORDS SUMMARY | 2024-08-12 07:40 | XMS_ITS | Encounter Summary ---
[place] [address] Care Team Providers Care Route Process Administrator Name Role Phone [place], Demetra Combs APRN Primary Care Provider [phone] Encounter Details Date Type Department Care Team (Latest Contact Info) Description 12/06/2012 12:41 PM EST - 12/06/2012 3:30 PM EST Hospital Encounter [place] [address] Sindhu Dumont MD [facility] [place] [address] Discharge Disposition: Home Social History Tobacco Use [...] occur please notify your MD. Please call [phone] before 5pm with problems, questions or concerns. After 5 pm call [phone] and ask to speak with the GI fellow engineering inspection assistant. Discharge instructions reviewed with patient who expresses understanding. * Attachments The following attachments cannot be sent through Care Everywhere. * COLONOSCOPY: WHAT TO EXPECT AT HOME ([place]) * UPPER GI ENDOSCOPY: WHAT TO EXPECT AT HOME ([place]) documented in this encounter Medications at Time [...] by mouth. 05/31/2017 MAGNESIUM CHLORIDE MISC by [facility]Non-Drug; Combo Route) route. 12/21/2012 albuterol (PROVENTIL HFA;VENTOLIN [...] fluticasone (FLONASE) 50 mcg/Actuation nasal spray 2 [place](s), Nasal, QHS ??? Vitamin A-Vitamin C-Vit E-Min [...] PM EDT Office Visit Cardiology at [address] [place] [address] Rigoberto Diaz MD [facility] [place] [address] Scheduled Procedures Name Priority Associated Diagnoses Date/Ti [...] 5:18 PM EST) Surgical Pathology Report ? [facility] ? Provider: ?? SINDHU DUMONT ?Pt. Name: ?? DELEON, LINDSEY ? Acc #: ?[id number] ?Pt. ? Col Date: ?? 12/06/2012 ? [...] MD PATHOLOGY/CYTOLOGY O [place]ORGITO Performing Organization Address [facility] Co de Phone Number [facility] * Specimen to Pathology (surgical or derm) (12/06/2012 2:50 PM EST) AP Specimen 12/06/2012 2:50 PM EST 12/06/2012 2:50 PM EST Narrative CERNER MILLENNIUM - 12/06/2012 2:50 PM EST Specimen requisition ordered. ??Separate Pathology report to follow Sindhu Dumont MD PATHOLOGY/CYTOLOGY O [place] Performing Organization Address City/[facility]/ZIP Co de Phone Number [facility] * COLONOSCOPY (12/06/2012 1:34 PM EST) COLONOSCOPY [facility] Endoscopy Patient Name: Lindsey Deleon ? Procedure Date: 12/06/2012 1:34 PM ? N: [id number] ? Date of : 1950 ? Age: 61 ? Order #: [id number] ? Procedure: ? Colonoscopy Indications: ? High [...] (12/06/2012 1:33 PM EST) UPPER GI ENDOSCOPY [facility] Patient Name: Lindsey Deleon ? Procedure Date: 12/06/2012 1:33 PM ? N: [id number] ? Date of : 1950 ? Age: 61 ? Order #: [id number] ? Procedure: ? Upper GI endoscopy Indications: [...] PM PROVATION 12/06/2012 1:33 PM EST Demetra Goff APRN GENERAL SURGICAL [...] RN) documented in this encounter Care Teams Route Process Administrator Relationship Specialty Start Date End Date Demetra Goff APRN PCP - General 10/19/12 12/31/17 documented as of this encounter
--- OUTSIDE RECORDS SUMMARY | 2024-08-12 07:40 | XMS_ITS | Encounter Summary ---
[place] [address] Care Team Providers Care Direct Entry Midwife Name Role Phone Andres Hylton MD Primary Care Provider [phone] Reason for Visit * Reason Comments Obstructive Sleep Apnea Encounter Details Date Type Department Care Team (Late st Contact Info) Description 04/11/2011 9:10 AM EDT Office [place] [address] Karin Meadows APRN [facility] [place] [address] CHEMA (obstructive sleep apnea) (Primary Dx) Social [...] snore index= 0.0, avg leak= 73.4. Today's Mingus Score is 6/24, indicating minimal daytime sleepiness. [...] Reviewed driving safety; pt is encouraged to snout puller and nap if feeling unsafe behind the wheel at any time. 3. RTC 6 mos/PRN documented in this encounter Plan of Treatment Upcoming Encounters Date Type Department Care Team (Late st Contact Info) Description 02/06/2025 2:40 PM EDT Office Visit Cardiology at [address] [phone] Rigoberto Diaz MD [facility] [place] [place] [address] Scheduled Procedures Name Priority Associated [...] (pediatric) documented in this encounter Care Teams Direct Entry Midwife Relationship Specialty Start Date End Date Andres Hylton MD [address] [place] [address] PCP - General 10/19/10 10/18/12 documented as of this encounter
--- OUTSIDE RECORDS SUMMARY | 2024-08-12 07:40 | XMS_ITS | Encounter Summary ---
[place] [address] Care Team Providers Care Pattern Illustrator Name Role Phone Demetra Blankenship APRN Primary Care Provider [phone] Encounter Details Date Type Department Care Team (Latest Contact Info) Description 01/15/2013 3:00 PM EST Procedure visit [place] [address] CLINIC, Demetra Ramachandran, RN GERD [...] DATE: 01/15/13 PROVIDER: M[place] ([id number]) INDICATION Reflux symptoms. METHODS Stationary esophageal manometry was performed with the PowerDsine esophageal motility system utilizing the Polygram software [...] large hiatal hernia. Micky Posey, PhD, MD debug technician, [facility] [employer] Section of Gastroenterology and Hepatology [facility] [place] [address] V: [phone] F: [phone] JAY/dequan CC/EC: PCP Citlalli Short APRN * Demetra Pandya, RN - 01/15/2013 3:11 PM EST Esophageal manometry performed without difficulty and was fairly well tolerated. Discharged from lab without voiced concerns. documented in this encounter Plan of Treatment Upcoming Encounters Date Type Department Care Team (Late st Contact Info) Description 02/06/2025 2:40 PM EDT Office Visit Cardiology at [address] [address] Rigoberto Diaz MD [facility] [place] [address] Scheduled Procedures Name Priority Associated Diagnoses Date/Ti me EGD, UPPER GI ENDOSCOPY (WRV U 2.09) Incontinence of feces, unspecified fecal incontinence type Dysphagia, unspecified type COLONOSCOPY, DIAGNOSTIC (WRV U 3.26) Incontinence of feces, unspecified fecal incontinence type Dysphagia, unspecified type documented as of this encounter Visit Diagnoses Diagnosis GERD (gastroesophageal reflux disease)- Primary Esophageal reflux documented in this encounter Care Teams Pattern Illustrator Relationship Specialty Start Date End Date Demetra Blankenship APRN PCP - General 10/19/12 12/31/17 documented as of this encounter
--- OUTSIDE RECORDS SUMMARY | 2024-08-12 07:40 | XMS_ITS | Encounter Summary ---
[place] [address] Care Team Providers Care Jacket Changer Name Role Phone [place], Demetra Combs APRN Primary Care Provider [phone] Encounter Details Date Type Department Care Team (Late st Contact Info) Description 02/13/2013 1:00 PM EDT - 02/13/2013 2:00 PM EDT Surgery [place] [address] Larisa Melendrez MD [facility] [place] [address] EGD, UPPER GI ENDOSCOPY (WRVU 2.09) Social [...] occurs, please contact your MD/ Please call [phone] before 5pm with problems, questions or concerns. After 5pm call [phone] and ask to speak with the mill hand work environment safety inspector. Discharge instructions reviewed with patient who expresses understanding. * Patient Instructions* Larisa Melendrez MD - 02/13/2013 1:34 PM EDT Please see Recommendations in the Provation procedure report which is documented in the procedural note in E-DH. * Attachments The following attachments cannot be sent through Care Everywhere. * UPPER GI ENDOSCOPY: WHAT TO EXPECT AT HOME ([place]UNGARIAN) documented in this encounter Medications at Time [...] PM EDT Office Visit Cardiology at [address] [place] [address] Rigoberto Diaz MD [facility] [place] [address] Scheduled Procedures Name Priority Associated Diagnoses Date/Ti [...] 3:52 PM EDT) Surgical Pathology Report ? [facility] ? Provider: ?? LARISA MELENDREZ ? Pt. Name: ?? FIGUEREDO, LINDSEY D ? Acc #: ?[id number] ?Pt. ? Col Date: ?? 02/13/2013 ? [...] MD PATHOLOGY/CYTOLOGY O JORGITO Performing Organization Address [facility] de Phone Number [facility] * Specimen to Pathology (surgical or derm) (02/13/2013 1:50 PM EDT) AP Specimen 02/13/2013 1:50 PM EDT 02/13/2013 1:50 PM EDT Narrative [facility] - 02/13/2013 1:50 PM EDT Specimen requisition ordered. ??Separate Pathology report to follow Larisa Melendrez MD PATHOLOGY/CYTOLOGY O [place] Performing Organization Address [facility] de Phone Number [facility] * UPPER GI ENDOSCOPY (02/13/2013 12:45 PM EDT) UPPER GI ENDOSCOPY [facility] Endoscopy Patient Name: Lindsey Figueredo ? Procedure Date: 02/13/2013 12:45 PM ? N: [id number] ? Date of : 1950 ? Age: 62 ? Order #: [id number] ? Procedure: ? Upper GI endoscopy Indications: ? Dysphagia Providers: ? Larisa Melendrez MD, Susie Urena RN, ? Erika Green, Credit Rating Inspector, ? Jaimee Roy, Credit Rating Inspector Referring : ?Demetra Goff MD Requesting Provider: [...] Until Mon02/13/13 at 1756, For Procedural use. Constable on area for one second. May repeat [...] Until Mon02/13/13 at 1756, For Procedural use. Constable on area for one second. May repeat [...] Susie Urena RN - Comment: meds for [id number]) fentaNYL 50mcg/mL injection (CANCELED) ONCE PRN, Starting [...] sedation) documented in this encounter Care Teams Jacket Changer Relationship Specialty Start Date End Date Demetra Goff APRN PCP - General 10/19/12 12/31/17 documented as of this encounter
--- OUTSIDE RECORDS SUMMARY | 2024-08-12 07:40 | XMS_ITS | Encounter Summary ---
[place] [address] Care Team Providers Care Manager Production Name Role Phone Demetra Goff APRN Primary Care Provider [phone] Encounter Details Date Type Department Care Team (Late st Contact Info) Description 12/06/2012 2:00 PM EST Office [place] [phone] CLINIC, Demetra Ramachandran, in house cra Disposition: Home Social History Tobacco Use Types [...] PM EDT Office Visit Cardiology at [address] [place] [address] Rigoberto Diaz MD [facility] [place] [address] Scheduled Procedures Name Priority Associated Diagnoses Date/Ti me EGD, UPPER GI ENDOSCOPY (WRV U 2.09) Incontinence of feces, unspecified fecal incontinence type Dysphagia, unspecified type COLONOSCOPY, DIAGNOSTIC (WRV U 3.26) Incontinence of feces, unspecified fecal incontinence type Dysphagia, unspecified type documented as of this encounter Visit Diagnoses Not on filedocumented in this encounter Care Teams Manager Production Relationship Specialty Start Date End Date Demetra Goff APRN PCP - General 10/19/12 12/31/17 documented as of this encounter
--- OUTSIDE RECORDS SUMMARY | 2024-08-12 07:40 | XMS_ITS | Encounter Summary ---
Author Organization [facility] [place] [address] Care Team Providers Care Early Childhood Associate Teacher Name Role Phone Unavailable Primary Care Provider Unavailabl e Encounter Details Date Type Department Care Team (Late st Contact Info) Description 10/12/2010 9:40 AM EST Follow-[place] [address] Karin Meadows APRN [facility] [place] [address] Social History Tobacco Use Types Packs/Day Years [...] PM EDT Office Visit Cardiology at [address] [phone] Rigoberto Diaz MD [facility] [place] [address] Scheduled Procedures Name Priority Associated Diagnoses Date/Ti me EGD, UPPER GI ENDOSCOPY (WRV U 2.09) Incontinence of feces, unspecified fecal incontinence type Dysphagia, unspecified type COLONOSCOPY, DIAGNOSTIC (WRV U 3.26) Incontinence of feces, unspecified fecal incontinence type Dysphagia, unspecified type documented as of this encounter Visit Diagnoses Not on filedocumented in this encounter
--- OUTSIDE RECORDS SUMMARY | 2024-08-12 07:40 | XMS_ITS | Encounter Summary ---
Author Organization [facility] Address [facility] [place] [address] Care Team Providers Care Logging Rafter Laborer Name Role Phone [place], Demetra Combs APRN Primary Care Provider [phone] Encounter Details Date Type Department Care Team (Latest Contact Info) Description 01/30/2013 8:48 AM EST - 01/30/2013 11:59 PM [facility] Hospital Encounter XRay at [address] [place] [address] CLINIC, Micky Albrecht MD [facility] [place] [address] GERD (gastroesophageal reflux disease); Hiatal hernia Discharge [...] PM EDT Office Visit Cardiology at [address] [place] [address] Rigoberto Diaz MD [facility] [place] [address] Scheduled Procedures Name Priority Associated Diagnoses Date/Ti [...] 135 mL 135 mL, Oral, ONCE, On Mon01/30/13 at 1045, 1 dose Given 01/30/2013 10:45 AM EST 135 mLs documented in this encounter Care Teams Logging Rafter Laborer Relationship Specialty Start Date End Date Demetra Goff APRN PCP - General 10/19/12 12/31/17 documented as of this encounter
--- OUTSIDE RECORDS SUMMARY | 2024-08-12 07:40 | XMS_ITS | Clinical Summary ---
Author Organization [facility] Address [address] [place] [address] Care Team Providers Care Monorail Helper Name Role Phone Pcp, None MD Primary Care Provider Unavailabl e Allergies Active Allergy Reactions Criticality Noted Date Comments Bismuth Subsalicylate 04/16/2017 Latex 04/16/2017 Medications Medication Sig Dispensed Refills Start Date End Date Status fluticasone (FLOVENT HFA) 110 MCG/ACT inhaler Inhale 1 puff into the lungs 2 (two) times daily. Active lisinopril (PRINIVIL,ZESTRIL) 10 MG tablet Take 10 mg by mouth daily. Active cetirizine (ZYRTEC) 10 MG tablet Take 10 mg by mouth daily. Active levothyroxine (SYNTHROID, LEVOTHROID) 50 MCG tablet Take 50 mcg by mouth Once a day at 6:00am. Active albuterol (PROVENTIL) (2.5 MG/3ML) 0.083% nebulizer solution Take 2.5 mg by nebulization every 6 (six) hours as needed for Wheezing. Active albuterol-ipratrop ium (COMBIVENT RESPIMAT) 20-100 MCG/ACT Aero Soln Inhale 1 puff into the lungs 4 (four) times daily. Active aspirin EC 81 MG EC tablet Take 81 mg by mouth daily. Active folic acid (FOLVITE) 1 MG tablet Take 1 mg by mouth daily. Active ziprasidone (GEODON) 20 MG capsule Take 20 mg by mouth 2 (two) times daily with meals. Active ezetimibe-simvasta tin (VYTORIN) 10-10 MG per tablet Take 1 tablet by mouth nightly. Active citalopram (CELEXA) 20 MG tablet Take 20 mg by mouth daily. Active loperamide (IMODIUM) 2 MG capsule Take 1 capsule (2 mg total) by mouth 4 (four) times daily as needed for Diarrhea. 30 capsule 0 04/16/2017 Active Social History Tobacco Use Types Packs/Day Years [...] Mass Index 36.05 04/16/2017 7:06 AM EDT Plan of Treatment Health Maintenance Due Date Last Done Comments Pneumonia Vaccine Age 65+ (1 of 1 - PCV) 2013 Care Teams Monorail Helper Relationship Specialty Start Date End Date Pcp, None, PCP - General 04/16/17
--- OUTSIDE RECORDS SUMMARY | 2024-08-12 07:40 | XMS_ITS | Encounter Summary ---
Author Organization [facility] [place] [address] Care Team Providers Care It Teacher Name Role Phone Demetra Goff APRN Primary Care Provider [phone] Reason for Visit * Reason Comments Follow-up Encounter Details Date Type Department Care Team (Late st Contact Info) Description 12/21/2012 9:30 AM EST Follow-Up Gastroenterology at [facility] [place] [address] Citlalli Short PATTERNMAKER [facility] [place] [address] GERD (gastroesophageal reflux disease); Dysphagia Discharge Disposition: [...] Amitiza. 5. Use Dulcolax suppository 10 mg NV. If no bowel movement on day 3 [...] Follow up as needed. Citlalli Short APRN [phone] documented in this encounter Progress Notes * [...] discomfort and loose stools. Has been using TLBX.me MOM tablets with some good effect. No [...] fluticasone (FLONASE) 50 mcg/Actuation nasal spray 2 [place](s), Nasal, QHS ??? 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 During this recording [...] Short APRN Section of Gastroenterology and Hepatology [facility] [place] [address] documented in this encounter Plan of Treatment Upcoming Encounters Date Type Department Care Team (Late st Contact Info) Description 02/06/2025 2:40 PM EDT Office Visit Cardiology at [address] [place] [address] Rigoberto Diaz MD [facility] [place] [address] Scheduled Procedures Name Priority Associated Diagnoses Date/Ti me EGD, UPPER GI ENDOSCOPY (WRV U 2.09) Incontinence of feces, unspecified fecal incontinence type Dysphagia, unspecified type COLONOSCOPY, DIAGNOSTIC (WRV U 3.26) Incontinence of feces, unspecified fecal incontinence type Dysphagia, unspecified type documented as of this encounter Visit Diagnoses Diagnosis GERD (gastroesophageal reflux disease) Esophageal reflux Dysphagia Dysphagia, unspecified documented in this encounter Care Teams It Teacher Relationship Specialty Start Date End Date Demetra Goff APRN PCP - General 10/19/12 12/31/17 documented as of this encounter
--- OUTSIDE RECORDS SUMMARY | 2024-08-12 07:40 | XMS_ITS | Encounter Summary ---
[place] [address] Care Team Providers Care Dynamiter Name Role Phone Creek, Demetra Combs APRN Primary Care Provider [phone] Encounter Details Date Type Department Care Team (Late st Contact Info) Description 02/18/2013 1:26 PM EDT - 02/18/2013 4:54 PM EDT Surgery [place] [address] Mireya Calvin MD [facility] [place] [address] LAPAROSCOPIC PARAESOPHAGEAL HERNIA REPAIR W/FUNDOPLASTY, W/O MESH [...] HOLIDAYS: ASK FOR THE GENERAL SURGERY RESIDENT CAMERA TECHNICIAN IF ANY OF THE ABOVE OCCUR. Activity level: Increase your activity slowly. You may tire easily, so frequent rest periods may be necessary. Do not lift more than 10 pounds for 4 weeks. Walk three times a day. Use common sense. Don't exhaust yourself. Diet: You should follow a post Willem diet, as instructed by the waste treatment operator in the hospital for a period of [...] at the General Surgery Out[facility] - Soap Drier Operator 4. You will receive a letter in the mail confirming the appointment date and time. Your follow-up is very important to us. Please call [phone] if you do not hear from us [...] and discharge planning. Eulalia Hawk RN Pager# [phone] Clinical Control Manager Office of Care Management * Dung Steward MD - 02/19/2013 10:18 AM EDT [facility] Department of Surgery Inpatient Progress Note ID: [...] - Post-Willem Full diet for breakfast, d/c PLYWOOD LAYUP LINE CORE FEEDER and add po pain control, and d/c [...] 02/19/2013 6:45 AM EDT Jean Marie, ms ob tech for pain, newman removed at 0615. Slept [...] current management. MELANIE YIN MD 02/18/2013 * Dolorse Green RN - 02/18/2013 7:48 PM EDT Pt given PLYWOOD LAYUP LINE CORE FEEDER button with instructions for use; appears to [...] Pain. 350 mL 0 PCP: DEMETRA BLANKENSHIP, GENERAL WAREHOUSE WORKER, Scheduled Appointments: The following appointments have been scheduled on your behalf: Future Appointments Date Time Provider Department Center 03/19/2013 11:40 AM Mireya Calvin MD [facility] [address] [place] [address] CLIN Patient Instructions: Call your doctor if you develop: Fever greater than 101.3 degrees Farenheit (38.5 degrees Celcius), chills, nausea or vomiting. Alsocall if you develop severe pain not relieved by your prescribed oral pain medicine. CALL THE GENERAL SURGERY CLINIC DURING WORKING HOURS AT , OR CALL AFTERCLINIC HOURS, WEEKENDS AND HOLIDAYS: ASK FOR THE GENERAL SURGERY RESIDENT CAMERA TECHNICIAN IF ANY OF THE ABOVE OCCUR. Activity level: Increase your activity slowly. You may tire easily, so frequent rest periods may be necessary. Do not lift more than 10 pounds for 4 weeks. Walk three times a day. Use common sense. Don't exhaust yourself. Diet: You should follow a post Willem diet, as instructed by the waste treatment operator in the hospital for a period of [...] at the General Surgery [facility]patient [facility] - Soap Drier Operator 4L, You will receive a letter in the mail confirming the appointment date and time. Your follow-up is very important to us. Please call [phone] if you do not hear from us [...] HOLIDAYS: ASK FOR THE GENERAL SURGERY RESIDENT CAMERA TECHNICIAN IF ANY OF THE ABOVE OCCUR. Activity level: Increase your activity slowly. You may tire easily, so frequent rest periods may be necessary. Do not lift more than 10 pounds for 4 weeks. Walk three times a day. Use common sense. Don't exhaust yourself. Diet: You should follow a post Willem diet, as instructed by the waste treatment operator in the hospital for a period of [...] at the General Surgery Outpatient Clinic - Soap Drier Operator 4. You will receive a letter in the mail confirming the appointment date and time. Your follow-up is very important to us. Please call [phone] if you do not hear from us [...] Calvin MD - 02/18/2013 5:24 PM EDT [facility] Operative Note Patient Name: Lindsey Deleon : [id number] MR#: [id number] Case Date: 02/18/2013 Surgeon: Surgeon(s) and Role: [...] direction posterior to the esophagus. A 60 [place] bougie was passed by Anesthesia down the [...] was assured. The abdomen was irrigated. The Patton drain was cut and removed. The liver [...] Operative Note Patient Name: Lindsey Deleon : [id number] MR#: [id number] Case Date: 02/18/2013 Surgeon: Surgeon(s) and Role: [...] PM EDT Office Visit Cardiology at [address] [place] [address] Rigoberto Diaz MD [facility] [address] Scheduled Procedures Name Priority Associated Diagnoses Date/Ti [...] MD CHEMISTRY ORDE SIA Performing Organization Address City/[facility]/ZIP Co de Phone Number CERNER MILLENNIUM * (ABNORMAL) Basic Metabolic Panel (non-fasting) (02/19/2013 6:35 AM EDT) Glucose 101 60 - 199 mg/dL CERNER MILLENNIUM Comment:Diabetes: >=200 mg/d L plus symptoms Blood Urea Nitrogen 13 8 - 18 mg/dL CERNER MILLENNIUM Creatinine 0.57(L) 0.70 - 1.20 mg/dL CERNER MILLENNIUM Comment: Please note that the pediatric reference intervals supplied above were not validated at [facility]. Results from pediatric patients should be interpreted [...] MILLENNIUM Est Glomerular Filtration Rate >60 >=60 [facility] Comment: The National Kidney Disease Education Program [...] Lab Ismael Hernandez MD CHEMISTRY RAYMOND STOVALL Performing Organization Address [facility]/ZIP Co de Phone Number KENN SOTOMAYOR * [...] Spec In Lab Ismael Hernandez MD HEMATOLOGY BENJAMIN THOMPSON Performing Organization Address City/[facility]/ZIP Co de Phone Number KENN SOTOMAYOR documented [...] 1,000 mLs 100 mL/hr morphine 1 mg/mL PLYWOOD LAYUP LINE CORE FEEDER 30 mL Intravenous, PLYWOOD LAYUP LINE CORE FEEDER ONLY, Starting on Mon02/18/13 at 1815, Until [...] Marcial De Jesus RN) morphine 1 mg/mL PLYWOOD LAYUP LINE CORE FEEDER 30 mL (CANCELED) Intravenous, PLYWOOD LAYUP LINE CORE FEEDER ONLY, Starting on Mon02/18/13 at 1815, Until [...] Routine documented in this encounter Care Teams Dynamiter Relationship Specialty Start Date End Date Demetra Blankenship APRN PCP - General 10/19/12 12/31/17 documented as of this encounter
--- OUTSIDE RECORDS SUMMARY | 2024-08-12 07:40 | XMS_ITS | Encounter Summary ---
[place] [address] Care Team Providers Care Sausage Stuffer Name Role Phone Demetra Blankenship APRN Primary Care Provider [phone] Encounter Details Date Type Department Care Team (Late st Contact Info) Description 12/13/2012 3:30 PM EST Office Visit [place] [id number] Micky Posey MD [facility] DR [place] [address] GERD (gastroesophageal reflux disease) (Primary Dx) Discharge [...] Posey MD - 12/18/2012 7:48 AM EST [id number] WIRELESS pH CAPSULE STUDY AFTER UPPER ENDOSCOPY Lindsey Deleon Female, 61 yrs, 1950 PCP: DEMETRA BLANKENSHIP STUDY DATES: 12/06/12 to 12/08/12 INTERPRETATION DATE: 12/15/12 PROVIDER: Micky Pose[place] ([id number]) INDICATION Persistent reflux symptoms despite medical therapy. [...] the patient was too far from the logistical engineer during the last six hours of the [...] 11.5% Percent of Supine Recording Time: 0.6% Foxbi-Bxvbm-Koce (Total) Fraction of Time with pH Less Than 4%: 4.5% Calculated DeMeester Score (normal values are up to 14.72) Day One Calculated DeMeester Score: 9.6 Day Two Calculated DeMeester Score: 22 Shhun-Dtwul-Cnlr DeMeester Score (Total): 16.3 During this recording [...] 95% are positive. Micky Posey MD, PhD client project coordinator, [facility] [employer] Section of Gastroenterology [place] [address] V: [phone] F: [phone] BEL/dequan EC/CC: PCP Citlalli Short APRN documented in this encounter Plan of Treatment Upcoming Encounters Date Type Department Care Team (Late st Contact Info) Description 02/06/2025 2:40 PM EDT Office Visit Cardiology at [address] [address] Rigoberto Diaz MD [facility] [place] [address] Scheduled Procedures Name Priority Associated Diagnoses Date/Ti me EGD, UPPER GI ENDOSCOPY (WRV U 2.09) Incontinence of feces, unspecified fecal incontinence type Dysphagia, unspecified type COLONOSCOPY, DIAGNOSTIC (WRV U 3.26) Incontinence of feces, unspecified fecal incontinence type Dysphagia, unspecified type documented as of this encounter Visit Diagnoses Diagnosis GERD (gastroesophageal reflux disease)- Primary Esophageal reflux documented in this encounter Care Teams Sausage Stuffer Relationship Specialty Start Date End Date Demetra Blankenship APRN PCP - General 10/19/12 12/31/17 documented as of this encounter
--- OUTSIDE RECORDS SUMMARY | 2024-08-12 07:40 | XMS_ITS | Continuity of Care Document ---
Author Name [facility] Organization [facility] Care Team Providers Care Gypsum Roofer Name Role Phone [facility] Unavailable Unavailable Social History Combined list of available smoking, tobacco, and other social history from Department of Defense and Veterans Affairs facilities. Social History Type Response Date Comment Sourc e This section is an empty social history section. [facility]
--- NOTE | 2024-08-12 08:03 | W.EDPROG ---
Date of service: 08/12/24 Time of Service: 08:03 Medical Decision Making I initially signed up to participate in this patient's care however I did not see her nor participate in her care in the emergency department. Quality:SDOH Health Related Social Needs: No Data to Display Discharge Plan Discharge Details Chief Complaint: CVA/TIA Primary Care Provider: Vanita Churchill ED Provider: Provider,Temporary Home Meds and New Rx's Prescriptions: No Action bupropion HCl [Wellbutrin SR] 150 mg Tablet Sustained-Release 12 Hr 150 mg PO QAM citalopram [Celexa] 40 mg Tablet 20 mg PO DAILY ziprasidone HCl [Geodon] 20 mg Capsule 20 mg PO BID hydrocortisone 1 % Cream 1 applic TOPICAL BID PRN diphenhydramine HCl [Benadryl] 25 mg Capsule 50 mg PO HS ferrous sulfate [iron] 325 mg (65 mg iron) Tablet 28 mg PO DAILY (DME) nebulizers Misc MISCELLANEOUS nystatin 100,000 unit/gram Powder 1 applic TOPICAL TID rosuvastatin 20 mg Tablet 20 mg PO HS Zyrtec 10 mg Capsule 10 mg PO DAILY loperamide [Imodium A-D] 2 mg capsule 2 mg PO Q6H PRN albuterol sulfate 1.25 mg/3 mL solution for nebulization 1.25 mg inhalation QID PRN (Reason: shortness of breath or wheezing) Qty: 90 6RF benzonatate 100 mg capsule 100 mg PO TID PRN (Reason: cough) Qty: 14 0RF albuterol sulfate 90 mcg/actuation HFA aerosol inhaler 2 puff INHALATION Q4H PRN (Reason: shortness of breath or wheezing) Qty: 8.5 5RF fluticasone propion-salmeterol [Advair Diskus] 250-50 mcg/dose blister with device 1 inh inhalation BID Qty: 60 5RF levothyroxine 50 mcg tablet 50 mcg PO DAILY Qty: 90 3RF ezetimibe [Zetia] 10 mg tablet 10 mg PO HS Qty: 90 3RF amlodipine 10 mg tablet 10 mg PO DAILY Qty: 90 3RF multivitamin [Daily Multi-Vitamin] 1 EACH tablet 1 tab PO DAILY aspirin 325 MG tablet 325 mg PO DAILY calcium carbonate-vitamin D3 1 EACH tablet 2 tab PO DAILY carboxymethylcellulose sodium [Refresh Tears] 30 ML drops 2 drp OU BID nystatin 15 GM cream 1 ea Topical TID cholecalciferol (vitamin D3) [Vitamin D3] 400 UNIT tablet 2,000 unit PO DAILY folic acid 0.8 MG tablet 0.8 mg PO DAILY Fortifeye 1 tab PO DAILY losartan 25 mg tablet 25 mg PO BID Patient Comments: TAKE ONE TABLET BY Morning and night guaifenesin [Mucinex] 600 mg Tablet Extended Release 12hr 600 mg PO Q12H PRN acetaminophen 325 mg tablet 650 mg PO BID metoprolol succinate 25 mg tablet extended release 24 hr 25 mg PO DAILY Qty: 7 0RF
--- NOTE | 2024-08-12 08:16 | W.ED.GENAD ---
Discharge Plan Disposition Patient Disposition: Home Condition: Fair Discharge Details Clinical Impression: Acute parotitis, Cellulitis, Essential (primary) hypertension Primary Care Provider: Vanita Churchill ED Provider: Mandi Drake Home Meds and New Rx's Prescriptions: New amoxicillin-pot clavulanate 875-125 mg tablet 1 tab PO BID 10 Days Qty: 20 0RF fluconazole 150 mg tablet 150 mg PO ONCE PRNQty: 1 0RF Rx Instructions: as a single dose Continued bupropion HCl [Wellbutrin SR] 150 mg Tablet Sustained-Release 12 Hr 150 mg PO QAM citalopram [Celexa] 40 mg Tablet 20 mg PO DAILY ziprasidone HCl [Geodon] 20 mg Capsule 20 mg PO BID hydrocortisone 1 % Cream 1 applic TOPICAL BID PRN diphenhydramine HCl [Benadryl] 25 mg Capsule 50 mg PO HS ferrous sulfate [iron] 325 mg (65 mg iron) Tablet 28 mg PO DAILY (DME) nebulizers Misc MISCELLANEOUS nystatin 100,000 unit/gram Powder 1 applic TOPICAL TID rosuvastatin 20 mg Tablet 20 mg PO HS Zyrtec 10 mg Capsule 10 mg PO DAILY loperamide [Imodium A-D] 2 mg capsule 2 mg PO Q6H PRN albuterol sulfate 1.25 mg/3 mL solution for nebulization 1.25 mg inhalation QID PRN (Reason: shortness of breath or wheezing) Qty: 90 6RF albuterol sulfate 90 mcg/actuation HFA aerosol inhaler 2 puff INHALATION Q4H PRN (Reason: shortness of breath or wheezing) Qty: 8.5 5RF fluticasone propion-salmeterol [Advair Diskus] 250-50 mcg/dose blister with device 1 inh inhalation BID Qty: 60 5RF levothyroxine 50 mcg tablet 50 mcg PO DAILY Qty: 90 3RF ezetimibe [Zetia] 10 mg tablet 10 mg PO HS Qty: 90 3RF amlodipine 10 mg tablet 10 mg PO DAILY Qty: 90 3RF multivitamin [Daily Multi-Vitamin] 1 EACH tablet 1 tab PO DAILY aspirin 325 MG tablet 325 mg PO DAILY calcium carbonate-vitamin D3 1 EACH tablet 2 tab PO DAILY carboxymethylcellulose sodium [Refresh Tears] 30 ML drops 2 drp OU BID nystatin 15 GM cream 1 ea Topical TID cholecalciferol (vitamin D3) [Vitamin D3] 400 UNIT tablet 2,000 unit PO DAILY folic acid 0.8 MG tablet 0.8 mg PO DAILY Fortifeye 1 tab PO DAILY losartan 25 mg tablet 25 mg PO BID Patient Comments: TAKE ONE TABLET BY Morning and night riboflavin (vitamin B2) 400 mg tablet 400 mg PO DAILY potassium chloride 10 mEq tablet extended release 10 meq PO DAILY AM omeprazole 40 mg capsule,delayed release(DR/EC) 40 mg PO DAILY guaifenesin [Mucinex] 600 mg Tablet Extended Release 12hr 600 mg PO Q12H PRN acetaminophen 325 mg tablet 650 mg PO BID metoprolol succinate 25 mg tablet extended release 24 hr 25 mg PO DAILY Qty: 7 0RF Discharge Instructions Instructions: Parotitis, Cellulitis (Skin Infection), Adult ED Additional Instructions: As we discussed, the imaging obtained today shows inflammation and swelling of your parotid gland as well as the skin that is affected on the right side of your face. This will be treated with antibiotics. Please take as directed. Even if symptoms improve, please take the entire course. During that time, also please encourage hydration. You may use Tylenol as needed for discomfort, and the seem to work well for you here today. Warm compresses may also be of benefit. Please also eat foods that increase salivary production such as pickles or lemon drop candy. Please follow-up with your primary care provider at the end of the week for reevaluation and to recheck your blood pressure. Her blood pressure does seem to be coming down after treating your pain. Please continue this monitor this at home as previously instructed by your primary care physician. If you develop fever/chills, spreading of the redness, increased pain, inability stay hydrated, difficulty breathing or other new/worsening symptoms please seek care urgently once again. Fluconazole prescribed in event you develop yeast infection. Referrals: Vanita Churchill APRN [Primary Care Provider] - [facility] General Date/Time Provider Initiated Documentation: 08/12/24 07:28. Limitations to Documentation: no limitations. Information obtained by: patient, family (daughter), RN notes reviewed and old records reviewed. History of Present Illness 73 year old F presents to the emergency department with the chief complaint of Right-sided facial itching, redness, temporal pain, tingling, described as severe, Quality is described as stabbing, and is localized to the face. Patient reports no radiation. Patient started experiencing this day(s) (3) and it has been constant. No relieving factors improve symptom(s), No exacerbating factors reported . Patient notes rash (Redness to the right side of her face); denies chest pain, cough, diaphoresis, fever/chills, headaches (Reports it is focal to the religious and does not extend into the head or neck), loss of appetite (Has not noted any jaw claudication), malaise, nausea/vomiting, shortness of breath (Reports she has some chronic shortness of breath, no acute change), syncope and weakness. Patient did receive the following treatments prior to arrival, none Related Data Home Medications ?Medication ?Instructions ?Recorded ?Confirmed aspirin 325 mg tablet 325 mg PO DAILY 03/21/14 08/12/24 calcium carbonate 600 mg-vitamin 2 tab PO DAILY 03/21/14 08/12/24 D3 5 mcg (200 unit) tablet carboxymethylcellulose sodium 0.5 2 drp OU BID 03/21/14 08/12/24 % eye drops (Refresh Tears) cholecalciferol (vitamin D3) 10 2,000 unit PO DAILY 03/21/14 08/12/24 mcg (400 unit) tablet (Vitamin D3) folic acid 800 mcg tablet 0.8 mg PO DAILY 03/21/14 08/12/24 multivitamin (Daily Multi-Vitamin 1 tab PO DAILY 03/21/14 08/12/24 tablet) nystatin 100,000 unit/gram topical 1 ea topical TID 03/21/14 08/12/24 cream bupropion HCl 150 mg tablet,12 hr 150 mg PO QAM 05/20/20 08/12/24 sustained-release (Wellbutrin SR) cetirizine 10 mg capsule (Zyrtec) 10 mg PO DAILY 05/20/20 08/12/24 citalopram 40 mg tablet (Celexa) 20 mg PO DAILY 05/20/20 08/12/24 diphenhydramine HCl 25 mg capsule 50 mg PO HS 05/20/20 08/12/24 (Benadryl) ferrous sulfate 325 mg (65 mg 28 mg PO DAILY 05/20/20 08/12/24 iron) tablet (iron) hydrocortisone 1 % topical cream 1 applic topical BID PRN 05/20/20 08/12/24 nebulizers 05/20/20 07/03/24 nystatin 100,000 unit/gram topical 1 applic topical TID 05/20/20 08/12/24 powder rosuvastatin 20 mg tablet 20 mg PO HS 05/20/20 08/12/24 ziprasidone HCl 20 mg capsule 20 mg PO BID 05/20/20 08/12/24 (Geodon) guaifenesin 600 mg tablet, 600 mg PO Q12H PRN 09/11/20 08/12/24 extended release 12 hr (Mucinex) Fortifeye 1 tab PO DAILY 09/21/20 08/12/24 acetaminophen 325 mg tablet 650 mg PO BID 02/16/22 08/12/24 metoprolol succinate 25 mg 25 mg PO DAILY #7 tabs 06/30/23 08/12/24 tablet,extended release 24 hr losartan 25 mg tablet 25 mg PO BID 05/22/24 08/12/24 albuterol sulfate 1.25 mg/3 mL 1.25 mg (3 mL) inhalation QID PRN 06/19/24 08/12/24 solution for nebulization shortness of breath or wheezing #90 mL loperamide 2 mg capsule (Imodium 2 mg PO Q6H PRN 06/19/24 08/12/24 A-D) albuterol sulfate 90 mcg/actuation 2 puff inhalation Q4H PRN 06/24/24 08/12/24 aerosol inhaler shortness of breath or wheezing #8.5 grams fluticasone 250 mcg-salmeterol 50 1 inh inhalation BID #60 ea 06/24/24 08/12/24 mcg/dose blistr powdr for inhalation (Advair Diskus) ezetimibe 10 mg tablet (Zetia) 10 mg PO HS #90 tabs 06/26/24 08/12/24 levothyroxine 50 mcg tablet 50 mcg PO DAILY #90 tabs 06/26/24 08/12/24 amlodipine 10 mg tablet 10 mg PO DAILY #90 tabs 07/10/24 08/12/24 amoxicillin 875 mg-potassium 1 tab PO BID 10 days #20 tabs 08/12/24 clavulanate 125 mg tablet fluconazole 150 mg tablet 150 mg PO ONCE PRN #1 tab 08/12/24 omeprazole 40 mg capsule,delayed 40 mg PO DAILY 08/12/24 08/12/24 release potassium chloride 10 mEq 10 meq PO DAILY AM 08/12/24 08/12/24 tablet,extended release riboflavin (vitamin B2) 400 mg 400 mg PO DAILY 08/12/24 08/12/24 tablet Previous Rx's ?Medication ?Instructions ?Recorded metoprolol succinate 25 mg 25 mg PO DAILY #7 tabs 06/30/23 tablet,extended release 24 hr albuterol sulfate 1.25 mg/3 mL 1.25 mg (3 mL) inhalation QID PRN 06/19/24 solution for nebulization shortness of breath or wheezing #90 mL albuterol sulfate 90 mcg/actuation 2 puff inhalation Q4H PRN 06/24/24 aerosol inhaler shortness of breath or wheezing #8.5 grams fluticasone 250 mcg-salmeterol 50 1 inh inhalation BID #60 ea 06/24/24 mcg/dose blistr powdr for inhalation (Advair Diskus) ezetimibe 10 mg tablet (Zetia) 10 mg PO HS #90 tabs 06/26/24 levothyroxine 50 mcg tablet 50 mcg PO DAILY #90 tabs 06/26/24 amlodipine 10 mg tablet 10 mg PO DAILY #90 tabs 07/10/24 amoxicillin 875 mg-potassium 1 tab PO BID 10 days #20 tabs 08/12/24 clavulanate 125 mg tablet fluconazole 150 mg tablet 150 mg PO ONCE PRN #1 tab 08/12/24 Allergies Allergy/AdvReac Type Severity Reaction Status Date / Time cocoa butter (From Allergy Intermediate Bleeding Verified 08/12/24 07:43 Preparation H) glycerin (From Preparation H) Allergy Intermediate Bleeding Verified 08/12/24 07:43 latex Allergy Intermediate Skin Rash Verified 08/12/24 07:43 mineral oil* (From Allergy Intermediate Bleeding Verified 08/12/24 07:43 Preparation H) petrolatum,white (From Allergy Intermediate Bleeding Verified 08/12/24 07:43 Preparation H) phenylephrine (From Allergy Intermediate Bleeding Verified 08/12/24 07:43 Preparation H) shark liver oil (From Allergy Intermediate Bleeding Verified 08/12/24 07:43 Preparation H) bismuth subsalicylate (From Allergy Mild Irritation/ Verified 08/12/24 07:43 Kaopectate (bismuth soreness subsalicy)) lisinopril AdvReac Intermediate Cough Verified 08/12/24 07:43 General Stated Complaint: CVA/TIA BLAIR: 2 Review of Systems Constitutional Constitutional: Reports as per HPI, Denies chills, Denies fever(s), Reports headache(s) and Denies weakness Eyes Eyes: Reports as per HPI and Denies change in vision ENT Ears, Nose, Mouth, and Throat: Denies vertigo, Reports facial pain, Reports headache(s), Denies hoarseness, Denies nasal trauma, Denies neck mass, Denies neck pain, Denies sinus pressure, Denies sore throat and Reports other (Right-sided facial redness) Cardiovascular Cardiovascular: Reports as per HPI, Denies chest pain, Denies lightheadedness, Denies dyspnea and Denies dyspnea on exertion Respiratory Respiratory: Reports as per HPI, Denies chest congestion, Denies cough, Denies dyspnea and Denies dyspnea on exertion Gastrointestinal Gastrointestinal: Reports as per HPI, Denies abdominal pain, Denies change in bowel habits, Denies nausea and Denies vomiting Musculoskeletal Musculoskeletal: Reports as per HPI, Denies back pain, Denies myalgias, Denies muscle cramps and Denies neck pain Integumentary/Breasts Skin/Breast: Reports as per HPI Neurologic Neurologic: Reports as per HPI, Denies abnormal movements, Denies abnormal speech, Denies behavioral changes, Denies confusion, Denies vertigo, Reports headache(s), Denies localized weakness, Denies sensory deficit and Denies weakness Psychiatric Psychiatric: Denies behavioral changes and Denies confusion Exam Const General: cooperative, healthy appearing, uncomfortable, no acute distress, well developed and well groomed Nutritional Appearance: average body habitus and well nourished Orientation: alert, awake and oriented x3 [facility] Head: no palpable skull fracture, normocephalic and atraumatic Ears: hearing grossly normal bilaterally (increased hearing on right side), external ears normal and TM's normal bilaterally General nose exam: external nose normal Face and sinus: sinuses nontender, erythema (right side of face, some extension to left near forehead), no fluctuance, no lacerations, no maxillary instability, no sinus tenderness and tenderness on the right (parotid, associated swelling) Mouth: oral mucosae normal and moist mucous membranes Teeth and gingiva: dentures Throat: posterior oropharynx normal Eyes General: appearance normal, both eyes and all related structures Visual Longo: normal visual longo by confrontation (normal on left, limited at baseline on right) Alignment and Position: alignment normal Periorbital: periorbital findings normal Eyelids: eyelids normal Sclera: sclerae normal Cornea: corneas normal Pupils: PERRL EOM: EOM intact bilaterally Neck Neck: normal visual inspection, full ROM, no meningeal signs, lymphadenopathy and other (post surgical scar noted, well healed) Resp Effort & Inspection: normal respiratory effort, able to speak in complete sentences and no respiratory distress Auscultation: clear to auscultation bilaterally, no rales, no rhonchi and no wheezes Cardio Rate: regular rate Rhythm: regular rhythm Heart Sounds: S1 normal and S2 normal GI Inspection: normal to inspection and non-distended Palpation: soft, no guarding, not rigid and nontender Back/Spine/Pelvis Cervical Spine: normal cervical lordosis and cervical ROM normal Neuro General: patient alert, patient awake and patient oriented x3 Cranial Nerves: CN's II-XI intact bilaterally Cognition: normal cognition Speech: speech normal Gait: normal gait Motor: muscle tone normal throughout, strength 5/5 throughout, no pronator drift, no movement abnormalities noted and no fasciculations Sensory Exam: no sensory deficits noted Coordination: [id number] test normal and [id number] test normal Extrem General: normal to inspection, capillary refill normal, no pedal edema and no calf tenderness Course Vital Signs Vital signs: Vital Signs Temperature 36.9 C 08/12/24 07:33 Pulse 84 08/12/24 07:33 Respiratory Rate 18 08/12/24 07:33 Blood Pressure 215/95 H 08/12/24 07:33 Pulse Oximetry 93 08/12/24 07:33 Temperature 36.9 C 08/12/24 07:33 Temperature Source Oral 08/12/24 07:33 Pulse 84 08/12/24 07:33 Respiratory Rate 18 08/12/24 07:33 Blood Pressure 215/95 H 08/12/24 07:33 Pulse Oximetry 93 08/12/24 07:33 Oxygen Delivery Method Room Air 08/12/24 07:33 Oxygen Flow Rate 0 08/12/24 07:33 Pain Level 3 08/12/24 07:33 Medical Decision Making Patient is a pleasant 73-year-old female, brought in by her daughter, with chief complaint of right-sided facial swelling, redness, tingling as well as temporal pain. She reports that she first noted symptoms about 3 days ago and they have been consistent if not increasing since then. She reports that she was awoken last night in the middle of the night with worsening right-sided religious pain as well as numbness in the right upper extremity which is since resolved. She describes the numbness as tingling and has not actually lost any sensation. She denies any visual changes but does report that her right eye chronically has loss of central vision and limited peripheral. Has not noted that this is worse than her typical. She denies any eye pain. Has not had any nausea or vomiting. No recent illness. Denies any chest pain. States that she does have baseline shortness of breath but no increase or change in this. Patient has multiple comorbidities including depression, macular degeneration, rheumatoid arthritis, GERD, emphysema, CHEMA, hypothyroid, cervical radiculopathy, PSVT, claudication, IBS, right bundle branch block, hypertension, hyperlipidemia, aortic stenosis status post TAVR, carotid stenosis, status post carotid endarterectomy. She reports she has had her carotids checked yearly since the surgery which occurred about 5 years ago. She denies any change in this since that time. On exam, patient appears nontoxic. She is hypertensive but otherwise hemodynamically stable. She has not taken her morning medications, will give her meds now. She also does appear anxious. There is a slight blood pressure difference between the bilateral upper extremities. Both have palpable pulses. She does have swelling of the right side of the face, skin is pink and puffy but nontender. Sensation is intact. Patient is point tender over the religious as well as the TMJ. She has a visual deficit in the right eye which patient reports is baseline. Visual longo are intact on the left. She has some hyperacusis on the right side. The redness does not appear to be dermatomal and there is no lesions to suggest shingles. Aside from the visual deficit that appears to be chronic on the right side, cranial nerves are intact. Strength equal in the bilateral upper and lower extremities, intact [id number]. She reports that baseline has difficulty with balance so this is also difficult to assess although she denies any change in this over the past couple of days. Do not appreciate any swelling of the right upper extremity. Concern for temporal arteritis, also considered acute thoracic central venous obstruction. While she does not have any pitting edema in the right upper extremity, she has had some pain and abnormal sensation in that area with the swelling of the head/face. Patient had initially been concern for potential CVA but her symptoms are not consistent with this, particularly given the swelling and redness which seem to be some of the primary concern. I do not note any objective deficits at this time and her neurologic exam. She did recently have a CT of her chest, no cancerous etiologies were identified. She is also been followed with ultrasound for blockages of the carotids and states that the one this year was found to have 15% which is baseline and unchanged from when she had her previous endarterectomy. Spoke with radiologist who advised patient has swelling of the parotid gland, inflammation as well as findings concerning for possible cellulitis. This makes me concerned for infectious parotiditis. Patient was quite tender over the parotid gland as noted above. There is no evidence to suggest an obstruction of the SVC or other vascular abnormality at this time. I reevaluated the patient, unable to express any pus from the parotid gland but she is indeed quite tender over this area. No fluctuance. Will begin the patient on Augmentin. Regard to her blood pressure, it is largely unchanged. She does report that she has had this blood pressure discrepancy for several years, first noticed when she was prepping for her TAVR procedure. She was given a dose of metoprolol, amlodipine as per her normal a.m. regimen. I did review previous notes and patient was here the same time last year for hypertension with similar readings. At that time, patient was endorsing headache. She does not have a headache today, more so that right sided facial pain but perhaps, this is driving some of her elevated blood pressure. While her ESR is elevated at 35, if patient did have temporal arteritis, I would expect this to be more significantly elevated. On reevaluation, she is much more point tender over the parotid gland than the religious. This also correlates with the CT findings. Discussed his findings with the patient. Advised parotid infection, I did try to milk the parotid and did not see any purulent discharge. However, with the surrounding erythema, concern for potential bacterial infection and will begin the patient on antibiotics. She is hemodynamically stable, afebrile and does not meet sepsis criteria. I do feel that the patient is safe for discharge as does she. She is requesting discharge home, is able to be around supportive family and come back with any new or worsening symptoms. First dose of Augmentin was given here. Patient is able to hydrate. She does report that she has had yeast infections historically when on antibiotics and is requesting pill form of treatment be available to her should this arise once again. Her pain is significantly improved after IV acetaminophen. No recurrence of right arm involvement. We discussed eating foods that increased salivation to help move disease process along, encouraged warm compresses. Encourage close follow-up with primary care this week for reevaluation. Her blood pressure is downtrending but does remain high. Again at this time, I do not see any evidence to suggest endorgan damage. She has been elevated like this in the past. Will have her continue to monitor at home and continue with her typical medications. Strict return precautions were discussed. All of her questions or concerns were addressed and she is in agreement this plan. Quality:SDOH Health Related Social Needs: No Data to Display PFSH All Active Problems (Updated 08/12/24 @ 11:33 by RITA Coleman) Cellulitis (Acute) Acute parotitis (Acute) Interstitial lung disease (Acute) Bronchiectasis (Acute) Asthma (Chronic) Abnormal CT scan, chest (Acute) Diverticulosis (Acute 12/06/12) Presence of prosthetic heart valve (Acute) Atherosclerosis (Acute) Pain in right shoulder (Acute) Pain, joint, shoulder, left (Acute) Dysphagia (Acute) Paresthesia (Acute) Disorder of sacrum (Acute) Pain in thoracic spine (Acute) Joint pain (Acute) Disorder of kidney and ureter (Acute) Chronic obstructive lung disease (Chronic) Peripheral vascular disease (Chronic) Carotid artery stenosis (Acute) Aortic stenosis (Chronic) Pulmonary hypertension (Acute) Essential (primary) hypertension (Acute) Sensorineural hearing loss (Acute) Hearing loss (Acute) Benign paroxysmal positional vertigo (Acute) Migraine (Chronic) Giant cell arteritis (Acute) Imbalance (Acute) Sensorineural hearing loss of both ears (Acute) Sacroiliac joint dysfunction of left side (Acute) Trochanteric bursitis, left hip (Acute) Asymmetrical sensorineural hearing loss (Acute) Medical History (Updated 08/12/24 @ 11:33 by RITA Coleman) History of transcatheter aortic valve replacement (TAVR) 03/07/23 Malaise and fatigue History of tobacco use Obesity Depression Cervicalgia Vertigo benign, postural Macular degeneration Polyarthralgia Arthritis, rheumatoid GERD (gastroesophageal reflux disease) Emphysema of lung Heart murmur Back pain CHEMA (obstructive sleep apnea) Hypothyroidism Hemorrhoids Cervical radiculopathy History of paroxysmal supraventricular tachycardia Claudication IBS (irritable bowel syndrome) Elevated creatine kinase level Hematuria Anemia Bilateral carotid artery stenosis Trochanteric bursitis of left hip Right bundle branch block Hypertension Hyperlipidemia Cough Surgical History (Updated 06/06/24 @ 16:25 by Lissette Hutton RN) History of colonoscopy (12/06/12) History of temporal artery biopsy (~06/2023) Status post insertion of iliac artery stent Family History (Updated 05/15/24 @ 13:47 by Cyndie Garrett) Mother Asthma Anxiety Depression Hypertension Maternal Aunt Cancer Father Heart disease Maternal Grandmother Diabetes Maternal Grandfather Diabetes Paternal Grandmother Diabetes Paternal Grandfather Diabetes Social History (Updated 05/15/24 @ 13:43 by Cyndie Garrett) Smoking/Tobacco Use Status: Former Tobacco Use Quit Date: 11/27/02 Tobacco: How many years used: 40 Smoking risk assessment performed?: Yes Alcohol Intake: current Alcohol Intake frequency: holidays/special occasions only Drug use: Never Substance use type: does not use Adopted: No Caregiver/Support person: No Foster care: Yes Household members: children Housing: house Number of Children: 3 number of grandchildren: 5 Communication Needs: Hard of Hearing Education Level: college Do you need help understanding health information?: Rarely 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 Pets and animals: Yes (4 Dogs, 2 Cats and 2 Birds) Pets and animals: cat(s), dog(s) and bird(s) Sexually active: No Do you think of yourself as: straight/heterosexual Current gender identity: female What is your relationship status?: How often do you talk on the phone with friends or family?: twice per week How often do you get together with friends or relatives?: once per week Do you belong to any clubs or organized social groups?: yes Panel score (0-1 are the most socially isolated patients): 2 What type of physical activity do you participate in: independent ambulation and bicycling Sammi/Samaritan: Pentecostal Special sammi needs: Yes (Last Rights) Seatbelt use: always Helmet use: No Drive intox or ride w/intox funeral driver: No Do you feel safe at home: Yes Do you feel safe in your relationship?: Yes Additional Social history: quit smoking 24 yrs ago
[2024-08-12 08:20] LABS: Abs Immature Grans 0.08 10^3/uL (0.0-0.06); Absolute Basophil Count 0.04 10^3/uL (0.0-0.2); Absolute Eosinophil Count 0.13 10^3/uL (0.0-0.7); Absolute Lymphocyte Count 2.07 10^3/uL (1.2-3.4); Absolute Monocyte Count 0.97 10^3/uL (0.1-0.8); Basophils % 0.4 %; Eosinophils % 1.3 %; HCT 41.5 % (36.0-46.0); HGB 13.9 g/dL (11.2-15.7); Immature Grans % 0.8 %; Lymphocytes % 20.1 %; MCHC 33.5 % (32.0-36.0); MCV 99 fL (80-95); MPV 9.2 fL (8.0-11.0); Monocytes % 9.4 %; Platelet Count 252 10^3/uL (130-400); RBC 4.21 10^6/uL (3.93-5.22); RDW-SD 43.5 fL; WBC 10.29 10^3/uL (4.4-10.8)
[2024-08-12 08:23] LABS: ESR 35 mm/hr (0-30)
--- NOTE | 2024-08-12 08:28 | DI.CT_ITS ---
Exam(s) CT NECK CHEST W EXAM: CT NECK CHEST W CLINICAL HISTORY: right sided facial swelling, BAIG, tingling. TECHNIQUE: Multi planar reconstructions were performed. CONTRAST MATERIAL: Omnipaque 350; 75 cc COMPARISON: CT CT CHEST WO from 06/07/2024 FINDINGS: CHEST: LUNGS: COPD and findings of interstitial fibrosis again noted but unchanged from 06/07/2024. There a re mild increased subpleural markings in the posterior basal segment of the right lower lobe again no carito. No significant pleural effusions. No ominous lung nodules. MEDIASTINUM: There is no hilar nor mediastinal adenopathy. Thyroid size normal CARDIAC: Heart size normal. Aortic valve TAVR noted. caliber of thoracic aorta is normal. No eviden ce of aortic dissection. No pericardial effusion. SVC: Patent. No abnormal compression. No intraluminal thrombus. VISUALIZED UPPER ABDOMEN:Gallbladder surgically absent. No adrenal masses. Partially visualized lef t kidney appears somewhat atrophic. OSSEOUS: Multilevel degenerative disc disease. No fractures. No significant osseous lesions.. CT SOFT TISSUES NECK WITH IV CONTRAST: Nasopharynx: Unremarkable Oropharynx: Unremarkable. Hypopharynx: Unremarkable. Epiglottis unremarkable. Aryepiglottic folds unremarkable. Vocal cords and subglottic airway: Unremarkable Salivary glands: There is streaking around the right parotid gland and there is a cellulitis-type redd earance of the skin and subcutaneous fat over the right-side of the face. There is no obvious lesion nor obvious calculus within the parotid gland. Left parotid gland appears unremarkable. Both subma ndibular glands appear unremarkable. Lymph nodes: No significant lymphadenopathy evident in the neck and supraclavicular regions. IMPRESSION: 1. Aortic valve TAVR. No aneurysm. No dissection. No pericardial effusion. Normal heart size 2. No acute pulmonary findings. Appearance of the lung humphries is similar to 06/07/2024 CT scan with COPD emphysematous changes and mild fibrotic interstitial disease. No pleural effusions. 3. No evidence of SVC syndrome, as per request. 4. There is haziness around the right parotid gland and in the overlying fat as well as slight thick ening of the ipsilateral skin over the right-side of the face. Correlate clinically. There is no ly mphadenopathy in the neck. Images reviewed at my PACS with ER provider. RADIATION DOSE DELIVERED: 547.25mGy.cm Total DLP DATA REPOSITORY: All CT scans at this facility are submitted to the National Radiology Data Registry (NRDR) Dose Index Registry (DIR) with the [employer] (ACR). RADIATION OPTIMIZATION: All CT scans at this facility use at least one of these dose optimization te chniques: automated exposure control; mA and/or kV adjustment per patient size (includes targeted exa ms where dose is matched to clinical indication); or iterative reconstruction.
[2024-08-12 08:40] LABS: ALT 18 U/L (14-59); AST 16 U/L (15-37); Albumin 3.8 g/dL (3.4-5.0); Alkaline Phosphatase 85 U/L (46-116); Anion Gap 6.5 mmol/L (3-11); BUN 16 mg/dL (7-18); Bilirubin, Total 0.74 mg/dL (0.2-1.0); C-Reactive Protein 1.26 mg/dL (<or=0.5); CO2 29.5 mmol/L (21.0-32.0); CREATININE 1.3 mg/dL (0.55-1.02); Calcium 9.9 mg/dL (8.5-10.1); Chloride 101 mmol/L (98-107); Estimated GFR 42.88 (mL/min/1.73m2); Glucose 99 mg/dL (74-106); Potassium 3.8 mmol/L (3.5-5.1); Sodium 137 mmol/L (136-145); Total Protein 8.3 g/dL (6.4-8.2); Troponin I 10 ng/L (<or=51)
--- NOTE | 2024-08-12 08:40 | DI.RAD_ITS ---
Exam(s) XR CHEST 2V PA LATERAL EXAM: XR CHEST 2V PA LATERAL CLINICAL HISTORY: SOB, facial numbness TECHNIQUE: 2D digital imaging was performed. Two views. COMPARISON: CR XR PORTABLE CHEST AP from 05/09/2024 FINDINGS: HEART: Normal size. Aorta: Not dilated. TAVR. PULMONARY VASCULATURE: Normal. MEDIASTINUM: Unremarkable. LUNGS: No focal infiltrate. Chronic interstitial markings. No focal area of consolidation. PLEURAL SPACE: No pleural effusion or pneumothorax. BONE:Unremarkable for age. SOFT TISSUES: Unremarkable. IMPRESSION: No acute abnormality. DATA REPOSITORY: RADIATION DOSE DELIVERED:
[2024-08-12] MEDS: Normal Saline - Diluent 50 ML VIAL IJ (09:05)
[2024-08-12] MEDS: Omnipaque 350 MG/ML 100 ML BTL IJ (09:07)
[2024-08-12] MEDS: Metoprolol 25 MG TAB PO (09:24)
[2024-08-12] MEDS: amLODIPine 10 MG TAB PO (09:24)
[2024-08-12] MEDS: Normal Saline 1,000 ML 125 ML IV (09:24)
[2024-08-12] MEDS: ACETAMINOPHEN 1,000 MG/100 ML BTL 400 MG IVPB (10:00)
[2024-08-12] MEDS: Amoxicillin 875/Clav. 125 TAB PO (11:15)
[2024-08-12 11:40] LABS: Troponin I 11 ng/L (<or=51)
== END 2024-08-12 12:07 | disposition home or self-care (01) ==
PROVIDERS: Emergency Provider Physician Assistant; PCP Nurse Practitioner Family
DX: K11.20 Sialoadenitis, unspecified (principal); L03.211 Cellulitis of face; I10 Essential (primary) hypertension; E78.5 Hyperlipidemia, unspecified; I45.19 Other right bundle-branch block; J44.9 Chronic obstructive pulmonary disease, unspecified; Z79.82 Long term (current) use of aspirin; Z87.891 Personal history of nicotine dependence
CPT/HCPCS: 00123; 36415; 70491; 80053; 85652; 93005; 96374; 99285; 71046; 71260; 83735; 84484; 85025; 86140; 93010; 99284; J0131; J3490

== ENCOUNTER 2024-08-28 10:41 | Outpatient (REF) | payer OTHER, SELFPAY ==
[2024-08-28 15:39] LABS: Anion Gap 7.4 mmol/L (3-11); BUN 15 mg/dL (7-18); CO2 28.6 mmol/L (21.0-32.0); CREATININE 1.3 mg/dL (0.55-1.02); Calcium 9.3 mg/dL (8.5-10.1); Chloride 105 mmol/L (98-107); Estimated GFR 42.88 (mL/min/1.73m2); Glucose 83 mg/dL (74-106); Potassium 4.2 mmol/L (3.5-5.1); Sodium 141 mmol/L (136-145)
== END 2024-08-28 10:42 | disposition home or self-care (01) ==
LOC: LBN 10:41
PROVIDERS: PCP Nurse Practitioner Family; Visit Provider Nurse Practitioner Family
DX: I10 Essential (primary) hypertension (principal)
CPT/HCPCS: 80048

== ENCOUNTER 2024-12-09 13:23 | Outpatient (CLI) | payer OTHER, SELFPAY ==
--- NOTE | 2024-12-09 11:16 | DI.RAD_ITS ---
Exam(s) XR CHEST 2V PA LATERAL EXAM: XR CHEST 2V PA LATERAL CLINICAL HISTORY: Acute bronchitis, J20.9, R/O pneumonia TECHNIQUE: 2D digital imaging was performed. Two views. COMPARISON: CR XR CHEST 2V PA LATERAL from 08/12/[address] NECK CHEST W from 08/12/2024 FINDINGS: HEART: Normal size. TAVR. Aorta: Not dilated. PULMONARY VASCULATURE: Normal. MEDIASTINUM: Unremarkable. LUNGS: Clear fibrotic changes. No area of consolidation. PLEURAL SPACE: No pleural effusion or pneumothorax. BONE:Old left upper rib deformities. SOFT TISSUES: Unremarkable. IMPRESSION: No acute abnormality. DATA REPOSITORY: RADIATION DOSE DELIVERED:
== END 2024-12-09 13:43 ==
LOC: DI 13:23
PROVIDERS: PCP Nurse Practitioner Family; Visit Provider Family Medicine
DX: J20.9 Acute bronchitis, unspecified (principal)
CPT/HCPCS: 71046

== ENCOUNTER 2024-12-31 08:56 | Outpatient (CLI) | payer OTHER, SELFPAY ==
--- NOTE | 2024-12-31 08:15 | DI.RAD_ITS ---
Exam(s) XR KNEE LT 3V AP,LAT,MCKENZIE EXAM: XR KNEE LT 3V AP,LAT,MCKENZIE CLINICAL HISTORY: s/p fall M25.562 PAIN LT KNEE. TECHNIQUE: 2D digital imaging was performed of the left knee. Three images were obtained. AP, late ral and PA tunnel views were obtained. COMPARISON: No exams were available for comparison FINDINGS: BONES: No acute fracture is present. No bony destructive lesion is seen. JOINTS: There is mild narrowing of the medial femoral tibial joint. There is a small joint effusion. No loose body. SOFT TISSUE: Atherosclerotic calcification is present. IMPRESSION: 1. There is mild narrowing of the medial femoral tibial joint. There is a small joint effusion. 2. Atherosclerotic calcification is present. DATA REPOSITORY: RADIATION DOSE DELIVERED:
== END 2024-12-31 09:16 ==
PROVIDERS: PCP Nurse Practitioner Family; Visit Provider Nurse Practitioner Family
DX: M25.562 Pain in left knee (principal)
CPT/HCPCS: 73562

== ENCOUNTER 2025-01-17 00:42 | Outpatient (CLI) | payer OTHER, SELFPAY ==
[2025-01-17 13:43] LABS: Anion Gap 7.6 mmol/L (3-11); BUN 20 mg/dL (7-18); CO2 27.4 mmol/L (21.0-32.0); CREATININE 1.6 mg/dL (0.55-1.02); Chloride 106 mmol/L (98-107); Estimated GFR 33.22 (mL/min/1.73m2); Glucose 97 mg/dL (74-106); Potassium 3.8 mmol/L (3.5-5.1); Sodium 141 mmol/L (136-145)
== END 2025-01-17 00:43 | disposition home or self-care (01) ==
LOC: LBO 00:42
PROVIDERS: PCP Nurse Practitioner Family; Referring Provider Nurse Practitioner Family; Visit Provider Nurse Practitioner Family
DX: I10 Essential (primary) hypertension (principal)
CPT/HCPCS: 36415; 80048

== ENCOUNTER 2025-04-22 09:31 | Outpatient (CLI) | payer OTHER, SELFPAY ==
--- NOTE | 2025-04-22 09:30 | RT.EKG_ITS ---
APPROVED REPORT Exam: Resting ECG Reason for Exam: Hypertension Patient Location: O HR:64 bpm ECG Measurements Heart Rate 64 AXIS MT 160 P 55 QRSd 130 QRS -83 QT 442 T 32 QTc 456 Conclusion Sinus rhythm...normal P axis, V-rate 50- 99 RBBB
== END 2025-04-22 09:32 | disposition home or self-care (01) ==
LOC: DI.KIM 09:31
PROVIDERS: PCP Nurse Practitioner Family; Visit Provider Emergency Medicine
DX: I10 Essential (primary) hypertension (principal); I45.10 Unspecified right bundle-branch block
CPT/HCPCS: 93010

== ENCOUNTER 2025-04-22 09:59 | Emergency (ER) | payer OTHER, SELFPAY ==
[2025-04-22] VITALS (16 sets, daily range): BP systolic 200–205; BP diastolic 97–120; PULSE 60–80; RESP 18; TEMP 35.3; O2SAT 96–97
[2025-04-22 11:21] LABS: Abs Immature Grans 0.03 10^3/uL (0.0-0.06); Absolute Basophil Count 0.03 10^3/uL (0.0-0.2); Absolute Eosinophil Count 0.17 10^3/uL (0.0-0.7); Absolute Lymphocyte Count 1.94 10^3/uL (1.2-3.4); Absolute Monocyte Count 0.65 10^3/uL (0.1-0.8); Absolute Neutrophil Count 5.05 10^3/uL (1.2-6.7); Basophils % 0.4 %; Eosinophils % 2.2 %; HCT 37.5 % (36.0-46.0); HGB 12.7 g/dL (11.2-15.7); Immature Grans % 0.4 %; Lymphocytes % 24.7 %; MCHC 33.9 % (32.0-36.0); MCV 97 fL (80-95); MPV 9.7 fL (8.0-11.0); Monocytes % 8.3 %; Platelet Count 234 10^3/uL (130-400); RBC 3.85 10^6/uL (3.93-5.22); RDW 13.2 % (11.7-14.6); RDW-SD 47.4 fL; WBC 7.87 10^3/uL (4.4-10.8)
[2025-04-22] MEDS: Prochlorperazine 10 MG/2 ML VIAL 5 MG IVP (11:40)
[2025-04-22] MEDS: Acetaminophen 325 MG TAB 650 MG PO (11:41)
[2025-04-22 11:47] LABS: ALT 21 U/L (14-59); AST 18 U/L (15-37); Albumin 3.8 g/dL (3.4-5.0); Alkaline Phosphatase 76 U/L (46-116); BUN 23 mg/dL (7-18); Bilirubin, Total 0.5 mg/dL (0.2-1.0); CREATININE 1.4 mg/dL (0.55-1.02); Calcium 9.4 mg/dL (8.5-10.1); Chloride 105 mmol/L (98-107); Estimated GFR 38.99 (mL/min/1.73m2); Glucose 95 mg/dL (74-106); Potassium 4.6 mmol/L (3.5-5.1); Sodium 139 mmol/L (136-145); Total Protein 7.6 g/dL (6.4-8.2)
[2025-04-22 13:10] LABS: Bilirubin Negative (Negative); Blood Negative (Negative); Clarity Sl Cloudy (Clear); Glucose Negative (Negative); Ketones Negative (Negative); Leukocyte Esterase Negative (Negative); Nitrite Negative (Negative); Urobilinogen 0.2 mg/dL (Up to 0.2)
[2025-04-22 13:22] LABS: Epithelial Cells Few HPF (Negative); RBC 0-2 HPF (0-2); WBC 0-2 HPF (0-5)
[2025-04-22 13:23] LABS: Bacteria Rare HPF (Negative); C & S Indicated? No; Casts Negative LPF (Negative); Crystals Negative HPF (Negative); Mucus Negative (Negative)
--- NOTE | 2025-04-22 15:29 | ED.GENADUL_ITS ---
Discharge Plan Disposition Patient Disposition: Home Condition: Stable Discharge Details Clinical Impression: Hypertension, Drug reaction Primary Care Provider: Vanita Churchill ED Provider: Lilian Jolly Home Meds and New Rx's Prescriptions: New bupropion HCl 100 mg tablet sustained-release 12 hr 100 mg PO DAILY Qty: 11 0RF Rx Instructions: Take 100 mg every day for the next 7 days and then take 100 mg every other day for the second week Continued hydrocortisone 1 % Cream 1 applic TOPICAL BID PRN diphenhydramine HCl [Benadryl] 25 mg Capsule 50 mg PO HS ferrous sulfate [iron] 325 mg (65 mg iron) Tablet 28 mg PO DAILY (DME) nebulizers Misc MISCELLANEOUS nystatin 100,000 unit/gram Powder 1 applic TOPICAL TID Zyrtec 10 mg Capsule 10 mg PO DAILY loperamide [Imodium A-D] 2 mg capsule 2 mg PO Q6H PRN albuterol sulfate 1.25 mg/3 mL solution for nebulization 1.25 mg inhalation QID PRN (Reason: shortness of breath or wheezing) Qty: 90 6RF fluticasone propion-salmeterol [Wixela Inhub] See Rx Instructions inhalation DAILY Rx Instructions: inhaled daily; losartan 100 mg tablet 100 mg PO DAILY 90 Days Qty: 90 3RF albuterol sulfate 90 mcg/actuation HFA aerosol inhaler 2 puff INHALATION Q4H PRN (Reason: shortness of breath or wheezing) Qty: 8.5 5RF carvedilol 6.25 mg tablet 12.5 mg PO BID Rx Instructions: must administer with a meal/food 03/24/[address] Diaz fluticasone propion-salmeterol [Advair Diskus] 250-50 mcg/dose blister with device 1 inh inhalation BID Qty: 60 5RF ezetimibe [Zetia] 10 mg tablet 10 mg PO HS Qty: 90 3RF citalopram [Celexa] 40 mg tablet 20 mg PO DAILY Qty: 60 3RF ziprasidone HCl [Geodon] 20 mg capsule 20 mg PO BID Qty: 180 3RF rosuvastatin 20 mg tablet 20 mg PO HS Qty: 90 3RF omeprazole 40 mg capsule,delayed release(DR/EC) 40 mg PO DAILY Qty: 90 3RF nystatin 100,000 unit/gram cream 1 applic Topical TID Qty: 30 3RF Rx Instructions: apply under breasts and abd fold levothyroxine 50 mcg tablet 50 mcg PO DAILY Qty: 30 0RF multivitamin [Daily Multi-Vitamin] 1 EACH tablet 1 tab PO DAILY aspirin 325 MG tablet 325 mg PO DAILY calcium carbonate-vitamin D3 1 EACH tablet 2 tab PO DAILY carboxymethylcellulose sodium [Refresh Tears] 30 ML drops 2 drp OU BID cholecalciferol (vitamin D3) [Vitamin D3] 400 UNIT tablet 2,000 unit PO DAILY folic acid 0.8 MG tablet 0.8 mg PO DAILY Fortifeye 1 tab PO DAILY riboflavin (vitamin B2) 400 mg tablet 400 mg PO DAILY acetaminophen 325 mg tablet 650 mg PO BID Discontinued bupropion HCl [Wellbutrin SR] 150 mg tablet sustained-release 12 hr 150 mg PO QAM Qty: 90 3RF Discharge Instructions Instructions: High Blood Pressure ED Additional Instructions: Continue taking your prescribed blood pressure medication and I recommend decreasing the Benadryl to 25 mg at night and stop taking the 150 mg of bupropion and transition to 100 mg for the next week for the following week, and 100 mg every other day and then talk to Vanita davis about transitioning to an SSRI to discontinue this medication as it may be contributing to your significant elevation in your blood pressure I do not feel like you have hypertensive emergency or urgency at this time your blood work is reassuring and it sounds your symptoms have been ongoing and I see that your blood pressures been elevated for the last several weeks Please be reevaluated should you have new or worsening symptoms Referrals: Vanita Churchill APRN [Primary Care Provider] - 2 days HPI General Date/Time Provider Initiated Documentation: 04/22/25 10:13 . HPI Narrative: 74-year-old female with hypertension, transcatheter aortic valve replacement, GERD, polyarthralgia, hypothyroidism, hyperlipidemia, and iliac artery stent. Presents with persistent elevated blood pressure. Continuous Improvement Manager doubled carvedilol dosage, initially effective, but BP remains elevated. Reports intermittent headaches for the past year, mild today. Intermittent blurred vision evaluated by vat washer, attributed to eye strain from beadwork, no blurred vision today. No chest pain or shortness of breath, otherwise feels well. Related Data Home Medications ?Medication ?Instructions ?Recorded ?Confirmed aspirin 325 mg tablet 325 mg PO DAILY 03/21/14 04/22/25 calcium 600 mg (as 2 tab PO DAILY 03/21/14 04/22/25 carbonate)-vitamin D3 5 mcg (200 unit) tablet carboxymethylcellulose sodium 0.5 2 drp OU BID 03/21/14 04/22/25 % eye drops (Refresh Tears) cholecalciferol (vitamin D3) 10 2,000 unit PO DAILY 03/21/14 04/22/25 mcg (400 unit) tablet (Vitamin D3) folic acid 800 mcg tablet 0.8 mg PO DAILY 03/21/14 04/22/25 multivitamin (Daily Multi-Vitamin 1 tab PO DAILY 03/21/14 04/22/25 tablet) cetirizine 10 mg capsule (Zyrtec) 10 mg PO DAILY 05/20/20 04/22/25 diphenhydramine HCl 25 mg capsule 50 mg PO HS 05/20/20 04/22/25 (Benadryl) ferrous sulfate 325 mg (65 mg 28 mg PO DAILY 05/20/20 04/22/25 iron) tablet (iron) hydrocortisone 1 % topical cream 1 applic topical BID PRN 05/20/20 04/22/25 nebulizers 05/20/20 02/17/25 nystatin 100,000 unit/gram topical 1 applic topical TID 05/20/20 04/22/25 powder Fortifeye 1 tab PO DAILY 09/21/20 04/22/25 acetaminophen 325 mg tablet 650 mg PO BID 02/16/22 04/22/25 albuterol sulfate 1.25 mg/3 mL 1.25 mg (3 mL) inhalation QID PRN 06/19/24 04/22/25 solution for nebulization shortness of breath or wheezing #90 mL loperamide 2 mg capsule (Imodium 2 mg PO Q6H PRN 06/19/24 04/22/25 A-D) fluticasone 250 mcg-salmeterol 50 1 inh inhalation BID #60 ea 06/24/24 04/22/25 mcg/dose blistr powdr for inhalation (Advair Diskus) ezetimibe 10 mg tablet (Zetia) 10 mg PO HS #90 tabs 06/26/24 04/22/25 riboflavin (vitamin B2) 400 mg 400 mg PO DAILY 08/12/24 04/22/25 tablet fluticasone propion-salmeterol See Rx Instructions inhalation 09/19/24 04/22/25 [Wixela Inhub] DAILY citalopram 40 mg tablet (Celexa) 20 mg (1/2 x 40 mg) PO DAILY #60 10/18/24 04/22/25 tabs ziprasidone HCl 20 mg capsule 20 mg PO BID #180 caps 11/12/24 04/22/25 (Geodon) losartan 100 mg tablet 100 mg PO DAILY 90 days #90 tabs 01/03/25 04/22/25 rosuvastatin 20 mg tablet 20 mg PO HS #90 tabs 01/28/25 04/22/25 albuterol sulfate 90 mcg/actuation 2 puff inhalation Q4H PRN 01/31/25 04/22/25 aerosol inhaler shortness of breath or wheezing #8.5 grams omeprazole 40 mg capsule,delayed 40 mg PO DAILY #90 caps 02/28/25 04/22/25 release nystatin 100,000 unit/gram topical 1 applic topical TID #30 grams 03/19/25 04/22/25 cream carvedilol 6.25 mg tablet 12.5 mg PO BID 04/09/25 04/22/25 bupropion HCl 100 mg tablet,12 hr 100 mg PO DAILY #11 tabs 04/22/25 sustained-release levothyroxine 50 mcg tablet 50 mcg PO DAILY #30 tabs 04/22/25 04/22/25 Previous Rx's ?Medication ?Instructions ?Recorded albuterol sulfate 1.25 mg/3 mL 1.25 mg (3 mL) inhalation QID PRN 06/19/24 solution for nebulization shortness of breath or wheezing #90 mL fluticasone 250 mcg-salmeterol 50 1 inh inhalation BID #60 ea 06/24/24 mcg/dose blistr powdr for inhalation (Advair Diskus) ezetimibe 10 mg tablet (Zetia) 10 mg PO HS #90 tabs 06/26/24 citalopram 40 mg tablet (Celexa) 20 mg (1/2 x 40 mg) PO DAILY #60 10/18/24 tabs ziprasidone HCl 20 mg capsule 20 mg PO BID #180 caps 11/12/24 (Geodon) losartan 100 mg tablet 100 mg PO DAILY 90 days #90 tabs 01/03/25 rosuvastatin 20 mg tablet 20 mg PO HS #90 tabs 01/28/25 albuterol sulfate 90 mcg/actuation 2 puff inhalation Q4H PRN 01/31/25 aerosol inhaler shortness of breath or wheezing #8.5 grams omeprazole 40 mg capsule,delayed 40 mg PO DAILY #90 caps 02/28/25 release nystatin 100,000 unit/gram topical 1 applic topical TID #30 grams 03/19/25 cream bupropion HCl 100 mg tablet,12 hr 100 mg PO DAILY #11 tabs 04/22/25 sustained-release levothyroxine 50 mcg tablet 50 mcg PO DAILY #30 tabs 04/22/25 Allergies Allergy/AdvReac Type Severity Reaction Status Date / Time cocoa butter (From Allergy Intermediate Bleeding Verified 04/22/25 10:14 Preparation H) glycerin (From Preparation H) Allergy Intermediate Bleeding Verified 04/22/25 10:14 latex Allergy Intermediate Skin Rash Verified 04/22/25 10:14 mineral oil* (From Allergy Intermediate Bleeding Verified 04/22/25 10:14 Preparation H) petrolatum,white (From Allergy Intermediate Bleeding Verified 04/22/25 10:14 Preparation H) phenylephrine (From Allergy Intermediate Bleeding Verified 04/22/25 10:14 Preparation H) shark liver oil (From Allergy Intermediate Bleeding Verified 04/22/25 10:14 Preparation H) bismuth subsalicylate (From Allergy Mild Irritation/ Verified 04/22/25 10:14 Kaopectate (bismuth soreness subsalicy)) lisinopril AdvReac Intermediate Cough Verified 04/22/25 10:14 General Stated Complaint: Headache BLAIR: 3 Exam Narrative Exam Narrative: General Appearance: Alert and oriented, ambulatory with steady gait, answers questions appropriately, no evidence of end-organ damage. Vital signs: Within normal limits. HEENT: Pupils equal, round, reactive to light and accommodation. Respiratory: Within normal limits. Cardiovascular: Gastrointestinal: Genitourinary: Lymphatic: Back, Musculoskeletal: Extremities: Skin: Warm and dry, no rash. Neurological: Cranial nerves II-XII intact. Neurological exam benign. Psychiatric: Other observations: Course Vital Signs Vital signs: Vital Signs Temperature 35.3 C L 04/22/25 10:02 Pulse 60 04/22/25 10:02 Respiratory Rate 18 04/22/25 10:02 Blood Pressure 202/109 H 04/22/25 10:02 Pulse Oximetry 97 04/22/25 10:02 Temperature 35.3 C L 04/22/25 10:44 Temperature Source Oral 04/22/25 10:44 Pulse 73 04/22/25 14:00 Pulse 73 04/22/25 12:30 Respiratory Rate 18 04/22/25 10:44 Blood Pressure 205/97 H 04/22/25 14:00 Blood Pressure Mean 133 04/22/25 14:00 Blood Pressure Position Sitting 04/22/25 10:44 Pulse Oximetry 96 04/22/25 14:00 Oxygen Delivery Method Room Air 04/22/25 12:15 Oxygen Flow Rate 0 04/22/25 12:15 Pain Level 7 04/22/25 10:02 Lab/Test Results Lab/Test Results: Laboratory Tests Range/Units 04/22/25 04/22/25 10:24 12:48 WBC (4.4-10.8) 10^3/uL 7.87 RBC (3.93-5.22) 10^6/uL 3.85 L Hgb (11.2-15.7) g/dL 12.7 Hct (36.0-46.0) % 37.5 MCV (80-95) fL 97 H MCH (27.0-33.0) pg 33.0 MCHC (32.0-36.0) % 33.9 RDW (11.7-14.6) % 13.2 Plt Count (130-400) 10^3/uL 234 MPV (8.0-11.0) fL 9.7 Immature Gran % % 0.4 Neutrophils % % 64.0 Lymphocytes % % 24.7 Monocytes % % 8.3 Eosinophils % % 2.2 Basophils % % 0.4 Nucleated RBC % (0.0-0.3) % 0.0 Absolute Neutrophils (1.2-6.7) 10^3/uL 5.05 Absolute Lymphocytes (1.2-3.4) 10^3/uL 1.94 Absolute Monocytes (0.1-0.8) 10^3/uL 0.65 Absolute Eosinophils (0.0-0.7) 10^3/uL 0.17 Absolute Basophils (0.0-0.2) 10^3/uL 0.03 Sodium (136-145) mmol/L 139 Potassium (3.5-5.1) mmol/L 4.6 Chloride (98-107) mmol/L 105 Carbon Dioxide (21.0-32.0) mmol/L 29.0 Anion Gap (3-11) mmol/L 5.0 BUN (7-18) mg/dL 23 H Creatinine (0.55-1.02) mg/dL 1.4 H Est GFR (CKD-EPI 2020) (mL/min/1.73m2) 38.99 Glucose (74-106) mg/dL 95 Calcium (8.5-10.1) mg/dL 9.4 Total Bilirubin (0.2-1.0) mg/dL 0.5 AST (15-37) U/L 18 ALT (14-59) U/L 21 Alkaline Phosphatase (46-116) U/L 76 Total Protein (6.4-8.2) g/dL 7.6 Albumin (3.4-5.0) g/dL 3.8 Urine Color (Yellow) Yellow Urine Clarity (Clear) Sl Cloudy Urine pH (5-8) 6.0 Ur Specific [place] (1.005-1.025) 1.010 Urine Protein (Neg-Trace) mg/dL 30 H Urine Ketones (Negative) mg/dL Negative Urine Blood (Negative) Negative Urine Nitrite (Negative) Negative Urine Bilirubin (Negative) Negative Urine Urobilinogen (Up to 0.2) mg/dL 0.2 Ur Leukocyte Esterase (Negative) Negative Urine RBC (0-2) HPF 0-2 Urine WBC (0-5) HPF 0-2 Ur Epithelial Cells (Negative) HPF Few Urine Crystals (Negative) HPF Negative Urine Bacteria (Negative) HPF Rare Urine Casts (Negative) LPF Negative Urine Mucus (Negative) Negative Ur Culture Indicated? No Urine Glucose (Negative) mg/dL Negative Medical Decision Making Urinalysis shows protein, improved from prior (100 to 30). CBC and CMP reassuring. Creatinine improving (was 1.6). EKG nonischemic. Initial Assessment: 74-year-old female with a history of hypertension, transcatheter aortic valve replacement, GERD, polyarthralgia, hypothyroidism, hyperlipidemia, and iliac artery stent, presenting with persistent elevated blood pressure. Recent cardiology visit resulted in doubled carvedilol dosage, initially effective but now persistently elevated BP. Intermittent headaches and blurred vision, no dramatic change in headache today, mild headache throughout the day, no blurred vision today. Denies chest pain or shortness of breath. Neurological exam benign, ambulatory with steady gait, no evidence of end-organ damage. ED Course: - EKG nonischemic - Urinalysis shows protein, significantly improved from prior (down from 100-30) - CBC and CMP reassuring - Creatinine improving (was 1.6 during last evaluation) - Blood pressure mildly elevated compared to orthopedic note from 2 weeks ago - Buprenorphine dosage reduction: 100 mg for next week, then 100 mg every other day, before discontinuing - Decrease Benadryl from 50 mg to 25 mg nightly - Pain-free and ambulatory with steady gait after Compazine and Tylenol - Referral to Vanita Davis for further management - Return precautions reviewed, patient understands Final Assessment: Patient's blood pressure is mildly elevated but not an acute hypertensive emergency. Gradual BP reduction planned with buprenorphine dosage reduction and decreased Benadryl. Pain-free and ambulatory after Compazine and Tylenol. Referral to Vanita Davis for further management and reassessment of BP after discontinuing buprenorphine. Clinical Impression: - Hypertension Disposition: - Referral to primary care physician - Advised to return if new or worsening symptoms MDM Components Evaluation: - Number of Differential Diagnoses or Management Options: Hypertension - Amount and Complexity of Data Reviewed: EKG, urinalysis, CBC, CMP, creatinine levels, orthopedic note - Risk of Complication and Morbidity or Mortality: Mildly elevated blood pressure, potential benefit from discontinuing buprenorphine and decreasing Benadryl Quality:SDOH Health Related Social Needs: No Data to Display PFSH All Active Problems (Updated 04/22/25 @ 13:11 by RITA Avilez) Drug reaction (Acute) Hypertension (Chronic) Pes anserinus bursitis of left knee (Acute) Internal derangement of left knee (Acute ~09/2024) Left knee DJD (Chronic) CKD (chronic kidney disease) stage 3, GFR 30-59 ml/min (Acute) Knee pain, left (Acute) Plantar wart of left foot (Acute) Parotiditis (Acute) Hypertension (Chronic) Interstitial lung disease (Acute) Bronchiectasis (Acute) Asthma (Chronic) Abnormal CT scan, chest (Acute) Diverticulosis (Acute 12/06/12) Presence of prosthetic heart valve (Acute) Atherosclerosis (Acute) Pain in right shoulder (Acute) Pain, joint, shoulder, left (Acute) Dysphagia (Acute) Paresthesia (Acute) Disorder of sacrum (Acute) Pain in thoracic spine (Acute) Joint pain (Acute) Disorder of kidney and ureter (Acute) Chronic obstructive lung disease (Chronic) Peripheral vascular disease (Chronic) Carotid artery stenosis (Acute) Aortic stenosis (Chronic) HX TAVR 03/07/23 Pulmonary hypertension (Acute) Essential (primary) hypertension (Acute) Sensorineural hearing loss (Acute) Hearing loss (Acute) Benign paroxysmal positional vertigo (Acute) Migraine (Chronic) Giant cell arteritis (Acute) Imbalance (Acute) Sensorineural hearing loss of both ears (Acute) Sacroiliac joint dysfunction of left side (Acute) Trochanteric bursitis, left hip (Acute) Asymmetrical sensorineural hearing loss (Acute) Medical History History of transcatheter aortic valve replacement (TAVR) 03/07/23 Malaise and fatigue History of tobacco use Obesity Depression Cervicalgia Vertigo benign, postural Macular degeneration Polyarthralgia Arthritis, rheumatoid GERD (gastroesophageal reflux disease) Emphysema of lung Heart murmur Back pain CHEMA (obstructive sleep apnea) Hypothyroidism Hemorrhoids Cervical radiculopathy History of paroxysmal supraventricular tachycardia Claudication IBS (irritable bowel syndrome) Elevated creatine kinase level Hematuria Anemia Bilateral carotid artery stenosis Trochanteric bursitis of left hip Right bundle branch block Hyperlipidemia Cough Surgical History History of colonoscopy (12/06/12) History of temporal artery biopsy (~06/2023) Status post insertion of iliac artery stent Family History Mother Asthma Anxiety Depression Hypertension Maternal Aunt Cancer breast ca Father Heart disease Maternal Grandmother Diabetes Maternal Grandfather Diabetes Paternal Grandmother Diabetes Paternal Grandfather Diabetes Son Cancer leukemia Daughter Hypertension Social History Smoking/Tobacco Use Status: Former Tobacco Use Quit Date: 11/27/02 Tobacco: How many years used: 40 Smoking risk assessment performed?: Yes Alcohol Intake: current Alcohol Intake frequency: holidays/special occasions only Drug use: Never Substance use type: does not use Adopted: No Caregiver/Support person: No Foster care: Yes Household members: children Housing: house Number of Children: 3 number of grandchildren: 5 Communication Needs: Hard of Hearing Education Level: college Do you need help understanding health information?: Rarely 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 Pets and animals: Yes (4 Dogs, 2 Cats and 2 Birds) Pets and animals: cat(s), dog(s) and bird(s) Sexually active: No Do you think of yourself as: straight/heterosexual Current gender identity: female What is your relationship status?: How often do you talk on the phone with friends or family?: twice per week How often do you get together with friends or relatives?: once per week Do you belong to any clubs or organized social groups?: yes Panel score (0-1 are the most socially isolated patients): 2 What type of physical activity do you participate in: independent ambulation and bicycling Sammi/Scientology: Yarsani Special sammi needs: Yes (Last Rights) Seatbelt use: always Helmet use: No Drive intox or ride w/intox mail truck driver: No Do you feel safe at home: Yes Do you feel safe in your relationship?: Yes Additional Social history: quit smoking 24 yrs ago
== END 2025-04-22 14:09 | disposition home or self-care (01) ==
PROVIDERS: Emergency Provider Physician Assistant; PCP Nurse Practitioner Family
DX: I15.8 Other secondary hypertension (principal); H53.8 Other visual disturbances; T43.295A Adverse effect of other antidepressants, initial encounter; E78.5 Hyperlipidemia, unspecified; H54.61 Unqualified visual loss, right eye, normal vision left eye; Z95.2 Presence of prosthetic heart valve; Z79.82 Long term (current) use of aspirin
CPT/HCPCS: 80053; 96374; 99284; 81003; 81015; 85025; J0780

== ENCOUNTER 2025-05-02 15:30 | Emergency (ER) | payer OTHER, SELFPAY ==
[2025-05-02 15:33] VITALS: BP 203/102; PULSE 76; RESP 18; TEMP 36.7; O2SAT 93
[2025-05-02] MEDS: Lidocaine 1% Multi-Dose 50 ML VIAL IJ (16:01)
--- NOTE | 2025-05-02 16:57 | DI.RAD_ITS ---
Exam(s) XR FINGER RT LITTLE EXAM: XR FINGER RT LITTLE CLINICAL HISTORY: laceration, pip, unable to flex finger. TECHNIQUE: 2D digital imaging was performed of the right finger. Four views were obtained. PA/AP, oblique, and lateral views were obtained. COMPARISON: No exams were available for comparison FINDINGS: BONES: There is a tiny cassandra of calcium anterior to the terminal tuft of the right little finger on t he oblique and lateral view. A tiny avulsed fracture fragment or foreign body cannot be excluded. N o bony destructive lesion is seen. JOINTS: No dislocation present. Moderate degenerative changes are seen in the hand and wrist. SOFT TISSUE: Normal. IMPRESSION: Tiny cassandra of calcium anterior to the terminal tuft of the right little finger. May represent a smal l avulsed fracture or foreign body. DATA REPOSITORY: RADIATION DOSE DELIVERED:
--- NOTE | 2025-05-02 22:27 | W.ED.GENAD ---
Discharge Plan Disposition Patient Disposition: Home Condition: Stable Discharge Details Clinical Impression: Avulsion of tendon of finger, Finger laceration Primary Care Provider: Vanita Churchill ED Provider: Lilian Jolly Home Meds and New Rx's Prescriptions: New cephalexin 500 mg tablet 500 mg PO Q6H 7 Days Qty: 28 0RF Continued hydrocortisone 1 % Cream 1 applic TOPICAL BID PRN ferrous sulfate [iron] 325 mg (65 mg iron) Tablet 28 mg PO DAILY (DME) nebulizers Misc MISCELLANEOUS Zyrtec 10 mg Capsule 10 mg PO DAILY loperamide [Imodium A-D] 2 mg capsule 2 mg PO Q6H PRN albuterol sulfate 1.25 mg/3 mL solution for nebulization 1.25 mg inhalation QID PRN (Reason: shortness of breath or wheezing) Qty: 90 6RF fluticasone propion-salmeterol [Wixela Inhub] See Rx Instructions inhalation DAILY Rx Instructions: inhaled daily; losartan 100 mg tablet 100 mg PO DAILY 90 Days Qty: 90 3RF albuterol sulfate 90 mcg/actuation HFA aerosol inhaler 2 puff INHALATION Q4H PRN (Reason: shortness of breath or wheezing) Qty: 8.5 5RF carvedilol 6.25 mg tablet 12.5 mg PO BID Rx Instructions: must administer with a meal/food 03/24/[address] Diaz amlodipine 10 mg tablet 10 mg PO DAILY Qty: 90 3RF fluticasone propion-salmeterol [Advair Diskus] 250-50 mcg/dose blister with device 1 inh inhalation BID Qty: 60 5RF ezetimibe [Zetia] 10 mg tablet 10 mg PO HS Qty: 90 3RF citalopram [Celexa] 40 mg tablet 20 mg PO DAILY Qty: 60 3RF ziprasidone HCl [Geodon] 20 mg capsule 20 mg PO BID Qty: 180 3RF rosuvastatin 20 mg tablet 20 mg PO HS Qty: 90 3RF omeprazole 40 mg capsule,delayed release(DR/EC) 40 mg PO DAILY Qty: 90 3RF levothyroxine 50 mcg tablet 50 mcg PO DAILY Qty: 30 0RF nystatin 100,000 unit/gram cream 1 applic Topical TID Qty: 30 3RF Rx Instructions: apply under breasts and abd fold nystatin 100,000 unit/gram powder 1 applic topical TID Qty: 15 3RF Rx Instructions: apply under breasts and abd fold. multivitamin [Daily Multi-Vitamin] 1 EACH tablet 1 tab PO DAILY aspirin 325 MG tablet 325 mg PO DAILY calcium carbonate-vitamin D3 1 EACH tablet 2 tab PO DAILY carboxymethylcellulose sodium [Refresh Tears] 30 ML drops 2 drp OU BID cholecalciferol (vitamin D3) [Vitamin D3] 400 UNIT tablet 2,000 unit PO DAILY folic acid 0.8 MG tablet 0.8 mg PO DAILY Fortifeye 1 tab PO DAILY riboflavin (vitamin B2) 400 mg tablet 400 mg PO DAILY acetaminophen 325 mg tablet 650 mg PO BID bupropion HCl 100 mg tablet sustained-release 12 hr 100 mg PO DAILY Qty: 11 0RF Rx Instructions: Take 100 mg every day for the next 7 days and then take 100 mg every other day for the second week Discharge Instructions Instructions: Common Finger Injuries (DC), How to care for a splint Additional Instructions: Keep wound clean and dry, you may keep the dressing on for 48 hours and after that wash with soap and water and reapply a large bandage in place with a finger splint we gave you over the bandage The sutures will need to be removed in 12 days, call orthopedics for follow-up as of mom's concern you have an avulsion to your flexor tendered in your finger Should develop spreading redness, fever, worsening pain please return for reassessment take Tylenol as needed for discomfort refrain from flexing extending your finger You have glue on your fourth digit, this will come off on its own Not submerge your fingers in water until sutures are removed Return with spreading redness, fever, worsening pain Referrals: Derrek Johnson MD [ [facility] STAFF PHYSICIAN] - 2 days Discharge Data Discharge Date/Time-TO BE ENTERED AT DEPARTURE: 05/02/25 17:47 HPI General Date/Time Provider Initiated Documentation: 05/02/25 15:42. HPI Narrative: 74-year-old female with a laceration to her right fifth digit. Injury occurred while cutting frozen hamburger meat. No additional injuries, numbness, or tingling. Tetanus immunization up-to-date. On full dose of aspirin. Related Data Home Medications ?Medication ?Instructions ?Recorded ?Confirmed aspirin 325 mg tablet 325 mg PO DAILY 03/21/14 05/02/25 calcium 600 mg (as 2 tab PO DAILY 03/21/14 05/02/25 carbonate)-vitamin D3 5 mcg (200 unit) tablet carboxymethylcellulose sodium 0.5 2 drp OU BID 03/21/14 05/02/25 % eye drops (Refresh Tears) cholecalciferol (vitamin D3) 10 2,000 unit PO DAILY 03/21/14 05/02/25 mcg (400 unit) tablet (Vitamin D3) folic acid 800 mcg tablet 0.8 mg PO DAILY 03/21/14 05/02/25 multivitamin (Daily Multi-Vitamin 1 tab PO DAILY 03/21/14 05/02/25 tablet) cetirizine 10 mg capsule (Zyrtec) 10 mg PO DAILY 05/20/20 05/02/25 ferrous sulfate 325 mg (65 mg 28 mg PO DAILY 05/20/20 05/02/25 iron) tablet (iron) hydrocortisone 1 % topical cream 1 applic topical BID PRN 05/20/20 05/02/25 nebulizers 05/20/20 05/02/25 Fortifeye 1 tab PO DAILY 09/21/20 05/02/25 acetaminophen 325 mg tablet 650 mg PO BID 02/16/22 05/02/25 albuterol sulfate 1.25 mg/3 mL 1.25 mg (3 mL) inhalation QID PRN 06/19/24 05/02/25 solution for nebulization shortness of breath or wheezing #90 mL loperamide 2 mg capsule (Imodium 2 mg PO Q6H PRN 06/19/24 05/02/25 A-D) fluticasone 250 mcg-salmeterol 50 1 inh inhalation BID #60 ea 06/24/24 05/02/25 mcg/dose blistr powdr for inhalation (Advair Diskus) ezetimibe 10 mg tablet (Zetia) 10 mg PO HS #90 tabs 06/26/24 05/02/25 riboflavin (vitamin B2) 400 mg 400 mg PO DAILY 08/12/24 05/02/25 tablet fluticasone propion-salmeterol See Rx Instructions inhalation 09/19/24 05/02/25 [Wixela Inhub] DAILY citalopram 40 mg tablet (Celexa) 20 mg (1/2 x 40 mg) PO DAILY #60 10/18/24 05/02/25 tabs ziprasidone HCl 20 mg capsule 20 mg PO BID #180 caps 11/12/24 05/02/25 (Jade) losartan 100 mg tablet 100 mg PO DAILY 90 days #90 tabs 01/03/25 05/02/25 rosuvastatin 20 mg tablet 20 mg PO HS #90 tabs 01/28/25 05/02/25 albuterol sulfate 90 mcg/actuation 2 puff inhalation Q4H PRN 01/31/25 05/02/25 aerosol inhaler shortness of breath or wheezing #8.5 grams omeprazole 40 mg capsule,delayed 40 mg PO DAILY #90 caps 02/28/25 05/02/25 release carvedilol 6.25 mg tablet 12.5 mg PO BID 04/09/25 05/02/25 bupropion HCl 100 mg tablet,12 hr 100 mg PO DAILY #11 tabs 04/22/25 05/02/25 sustained-release levothyroxine 50 mcg tablet 50 mcg PO DAILY #30 tabs 04/22/25 05/02/25 nystatin 100,000 unit/gram topical 1 applic topical TID #30 grams 04/30/25 05/02/25 cream nystatin 100,000 unit/gram topical 1 applic topical TID #15 grams 04/30/25 05/02/25 powder amlodipine 10 mg tablet 10 mg PO DAILY #90 tabs 05/02/25 05/02/25 cephalexin 500 mg tablet 500 mg PO Q6H 7 days #28 tabs 05/02/25 Previous Rx's ?Medication ?Instructions ?Recorded albuterol sulfate 1.25 mg/3 mL 1.25 mg (3 mL) inhalation QID PRN 06/19/24 solution for nebulization shortness of breath or wheezing #90 mL fluticasone 250 mcg-salmeterol 50 1 inh inhalation BID #60 ea 06/24/24 mcg/dose blistr powdr for inhalation (Advair Diskus) ezetimibe 10 mg tablet (Zetia) 10 mg PO HS #90 tabs 06/26/24 citalopram 40 mg tablet (Celexa) 20 mg (1/2 x 40 mg) PO DAILY #60 10/18/24 tabs ziprasidone HCl 20 mg capsule 20 mg PO BID #180 caps 11/12/24 (Jade) losartan 100 mg tablet 100 mg PO DAILY 90 days #90 tabs 01/03/25 rosuvastatin 20 mg tablet 20 mg PO HS #90 tabs 01/28/25 albuterol sulfate 90 mcg/actuation 2 puff inhalation Q4H PRN 01/31/25 aerosol inhaler shortness of breath or wheezing #8.5 grams omeprazole 40 mg capsule,delayed 40 mg PO DAILY #90 caps 02/28/25 release bupropion HCl 100 mg tablet,12 hr 100 mg PO DAILY #11 tabs 04/22/25 sustained-release levothyroxine 50 mcg tablet 50 mcg PO DAILY #30 tabs 04/22/25 nystatin 100,000 unit/gram topical 1 applic topical TID #30 grams 04/30/25 cream nystatin 100,000 unit/gram topical 1 applic topical TID #15 grams 04/30/25 powder amlodipine 10 mg tablet 10 mg PO DAILY #90 tabs 05/02/25 cephalexin 500 mg tablet 500 mg PO Q6H 7 days #28 tabs 05/02/25 Allergies Allergy/AdvReac Type Severity Reaction Status Date / Time cocoa butter (From Allergy Intermediate Bleeding Verified 05/02/25 15:37 Preparation H) glycerin (From Preparation H) Allergy Intermediate Bleeding Verified 05/02/25 15:37 latex Allergy Intermediate Skin Rash Verified 05/02/25 15:37 mineral oil* (From Allergy Intermediate Bleeding Verified 05/02/25 15:37 Preparation H) petrolatum,white (From Allergy Intermediate Bleeding Verified 05/02/25 15:37 Preparation H) phenylephrine (From Allergy Intermediate Bleeding Verified 05/02/25 15:37 Preparation H) shark liver oil (From Allergy Intermediate Bleeding Verified 05/02/25 15:37 Preparation H) bismuth subsalicylate (From Allergy Mild Irritation/ Verified 05/02/25 15:37 Kaopectate (bismuth soreness subsalicy)) lisinopril AdvReac Intermediate Cough Verified 05/02/25 15:37 General Stated Complaint: Laceration BLAIR: 3 Exam Narrative Exam Narrative: General Appearance: Normal. Vital signs: Within normal limits. HEENT: Within normal limits. Respiratory: Within normal limits. Back, Musculoskeletal: Unable to flex distal right fifth digit. Extremities: No fracture on x-ray. Capillary refill intact. No tendon deformity. Sensation intact distally. Skin: Warm and dry, no rash. Neurological: Normal. Course Vital Signs Vital signs: Vital Signs Temperature 36.7 C 05/02/25 15:33 Pulse 76 05/02/25 15:33 Respiratory Rate 18 05/02/25 15:33 Blood Pressure 203/102 H 05/02/25 15:33 Pulse Oximetry 93 05/02/25 15:33 Temperature 36.7 C 05/02/25 15:33 Temperature Source Oral 05/02/25 15:33 Pulse 76 05/02/25 15:33 Respiratory Rate 18 05/02/25 15:33 Blood Pressure 203/102 H 05/02/25 15:33 Blood Pressure Position Supine 05/02/25 15:33 Pulse Oximetry 93 05/02/25 15:33 Oxygen Delivery Method Room Air 05/02/25 15:33 Oxygen Flow Rate 0 05/02/25 15:33 Pain Level 0 05/02/25 15:33 Medical Decision Making X-ray of hand shows no acute abnormality. Initial Assessment: 74-year-old female with laceration to right fifth digit from cutting frozen hamburger. Tetanus up-to-date. Denies additional injuries, numbness, or tingling. Takes full dose aspirin. ED Course: - X-ray of hand ordered, no evidence of acute abnormality or fracture. - Physical exam: unable to flex distal fifth digit, capillary refill intact, no obvious tendon deformity, sensation intact distally. - Digital block with 3 cm? of 1% lidocaine performed. - Three vertical mattress sutures placed. - Finger splinted. - Keflex initiated for tendon avulsion. - Tylenol for pain. - Bacitracin topically. - Orthopedic referral needed. - Suture removal in 12 days. - Return precautions reviewed. Final Assessment: Laceration of right fifth digit with tendon avulsion, treated with sutures, splinting, and antibiotics. No fracture or acute abnormality on x-ray. Clinical Impression: - Laceration of right fifth digit - Tendon avulsion Disposition: - Discharge - Follow-Up: Orthopedic referral, suture removal in 12 days. MDM Components Evaluation: - Number of Differential Diagnoses or Management Options: Tendon avulsion - Amount and Complexity of Data Reviewed: X-ray of hand - Risk of Complication and Morbidity or Mortality: Risk of infection and impaired function due to tendon avulsion. Quality:[facility] Related Social Needs: No Data to Display PFSH All Active Problems (Updated 05/02/25 @ 17:08 by RITA Avilez) Finger laceration (Acute) Avulsion of tendon of finger (Acute) Drug reaction (Acute) Hypertension (Chronic) Pes anserinus bursitis of left knee (Acute) Internal derangement of left knee (Acute ~09/2024) Left knee DJD (Chronic) CKD (chronic kidney disease) stage 3, GFR 30-59 ml/min (Acute) Knee pain, left (Acute) Plantar wart of left foot (Acute) Parotiditis (Acute) Hypertension (Chronic) Interstitial lung disease (Acute) Bronchiectasis (Acute) Asthma (Chronic) Abnormal CT scan, chest (Acute) Diverticulosis (Acute 12/06/12) Presence of prosthetic heart valve (Acute) Atherosclerosis (Acute) Pain in right shoulder (Acute) Pain, joint, shoulder, left (Acute) Dysphagia (Acute) Paresthesia (Acute) Disorder of sacrum (Acute) Pain in thoracic spine (Acute) Joint pain (Acute) Disorder of kidney and ureter (Acute) Chronic obstructive lung disease (Chronic) Peripheral vascular disease (Chronic) Carotid artery stenosis (Acute) Aortic stenosis (Chronic) HX TAVR 03/07/23 Pulmonary hypertension (Acute) Essential (primary) hypertension (Acute) Sensorineural hearing loss (Acute) Hearing loss (Acute) Benign paroxysmal positional vertigo (Acute) Migraine (Chronic) Giant cell arteritis (Acute) Imbalance (Acute) Sensorineural hearing loss of both ears (Acute) Sacroiliac joint dysfunction of left side (Acute) Trochanteric bursitis, left hip (Acute) Asymmetrical sensorineural hearing loss (Acute) Medical History History of transcatheter aortic valve replacement (TAVR) 03/07/23 Malaise and fatigue History of tobacco use Obesity Depression Cervicalgia Vertigo benign, postural Macular degeneration Polyarthralgia Arthritis, rheumatoid GERD (gastroesophageal reflux disease) Emphysema of lung Heart murmur Back pain CHEMA (obstructive sleep apnea) Hypothyroidism Hemorrhoids Cervical radiculopathy History of paroxysmal supraventricular tachycardia Claudication IBS (irritable bowel syndrome) Elevated creatine kinase level Hematuria Anemia Bilateral carotid artery stenosis Trochanteric bursitis of left hip Right bundle branch block Hyperlipidemia Cough Surgical History History of colonoscopy (12/06/12) History of temporal artery biopsy (~06/2023) Status post insertion of iliac artery stent Family History Mother Asthma Anxiety Depression Hypertension Maternal Aunt Cancer breast ca Father Heart disease Maternal Grandmother Diabetes Maternal Grandfather Diabetes Paternal Grandmother Diabetes Paternal Grandfather Diabetes Son Cancer leukemia Daughter Hypertension Social History Smoking/Tobacco Use Status: Former Tobacco Use Quit Date: 11/27/02 Tobacco: How many years used: 40 Smoking risk assessment performed?: Yes Alcohol Intake: current Alcohol Intake frequency: holidays/special occasions only Drug use: Never Substance use type: does not use Adopted: No Caregiver/Support person: No Foster care: Yes Household members: children Housing: house Number of Children: 3 number of grandchildren: 5 Communication Needs: Hard of Hearing Education Level: college Do you need help understanding health information?: Rarely 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 Pets and animals: Yes (4 Dogs, 2 Cats and 2 Birds) Pets and animals: cat(s), dog(s) and bird(s) Sexually active: No Do you think of yourself as: straight/heterosexual Current gender identity: female What is your relationship status?: How often do you talk on the phone with friends or family?: twice per week How often do you get together with friends or relatives?: once per week Do you belong to any clubs or organized social groups?: yes Panel score (0-1 are the most socially isolated patients): 2 What type of physical activity do you participate in: independent ambulation and bicycling Sammi/Pentecostalism: Yazdanism Special sammi needs: Yes (Last Rights) Seatbelt use: always Helmet use: No Drive intox or ride w/intox delivery driver/customer service: No Do you feel safe at home: Yes Do you feel safe in your relationship?: Yes Additional Social history: quit smoking 24 yrs ago
== END 2025-05-02 17:47 | disposition home or self-care (01) ==
PROVIDERS: Emergency Provider Physician Assistant; PCP Nurse Practitioner Family
DX: S56.497A Other injury of extensor muscle, fascia and tendon of right little finger at forearm level, initial encounter (principal); S61.216A Laceration without foreign body of right little finger without damage to nail, initial encounter; I10 Essential (primary) hypertension; E78.5 Hyperlipidemia, unspecified; Z79.82 Long term (current) use of aspirin; W26.0XXA Contact with knife, initial encounter; Y93.G3 Activity, cooking and baking; Y92.010 Kitchen of single-family (private) house as the place of occurrence of the external cause; Z87.891 Personal history of nicotine dependence
CPT/HCPCS: 12001; 99283; 73140; J2003

== ENCOUNTER 2025-05-07 12:37 | Day surgery (SDC) | payer OTHER, SELFPAY ==
[2025-05-07 12:50] VITALS: BP 176/81; PULSE 76; RESP 16; TEMP 36.4; O2SAT 96
--- NOTE | 2025-05-07 13:08 | PDOC.DSDIS_ITS ---
Date of service: 05/07/25 Discharge Plan Disposition Patient Disposition: Home Condition: Good Discharge Details Reason For Visit: Flexor tendon repair R hand Attending Provider: Derrek Johnson Primary Care Provider: Vanita Churchill Home Meds and New Rx's Prescriptions: New hydrocodone-acetaminophen 5-325 mg tablet 1 tab PO Q6H PRN (Reason: pain) Qty: 6 0RF acetaminophen 500 mg tablet 500 mg PO TID Qty: 90 0RF ibuprofen 600 mg tablet 600 mg PO TID PRN (Reason: pain) Qty: 90 0RF Continued hydrocortisone 1 % Cream 1 applic TOPICAL BID PRN ferrous sulfate [iron] 325 mg (65 mg iron) Tablet 28 mg PO DAILY (DME) nebulizers Misc MISCELLANEOUS Zyrtec 10 mg Capsule 10 mg PO DAILY loperamide [Imodium A-D] 2 mg capsule 2 mg PO Q6H PRN albuterol sulfate 1.25 mg/3 mL solution for nebulization 1.25 mg inhalation QID PRN (Reason: shortness of breath or wheezing) Qty: 90 6RF fluticasone propion-salmeterol [Wixela Inhub] See Rx Instructions inhalation DAILY Rx Instructions: inhaled daily; losartan 100 mg tablet 100 mg PO DAILY 90 Days Qty: 90 3RF albuterol sulfate 90 mcg/actuation HFA aerosol inhaler 2 puff INHALATION Q4H PRN (Reason: shortness of breath or wheezing) Qty: 8.5 5RF carvedilol 6.25 mg tablet 12.5 mg PO BID Rx Instructions: must administer with a meal/food 03/24/[address] Diaz amlodipine 10 mg tablet 10 mg PO DAILY Qty: 90 3RF fluticasone propion-salmeterol [Advair Diskus] 250-50 mcg/dose blister with device 1 inh inhalation BID Qty: 60 5RF Patient Comments: pt. states she only uses daily ezetimibe [Zetia] 10 mg tablet 10 mg PO HS Qty: 90 3RF citalopram [Celexa] 40 mg tablet 20 mg PO DAILY Qty: 60 3RF ziprasidone HCl [Geodon] 20 mg capsule 20 mg PO BID Qty: 180 3RF rosuvastatin 20 mg tablet 20 mg PO HS Qty: 90 3RF omeprazole 40 mg capsule,delayed release(DR/EC) 40 mg PO DAILY Qty: 90 3RF levothyroxine 50 mcg tablet 50 mcg PO DAILY Qty: 30 0RF nystatin 100,000 unit/gram cream 1 applic Topical TID Qty: 30 3RF Rx Instructions: apply under breasts and abd fold nystatin 100,000 unit/gram powder 1 applic topical TID Qty: 15 3RF Rx Instructions: apply under breasts and abd fold. multivitamin [Daily Multi-Vitamin] 1 EACH tablet 1 tab PO DAILY aspirin 325 MG tablet 325 mg PO DAILY calcium carbonate-vitamin D3 1 EACH tablet 2 tab PO DAILY carboxymethylcellulose sodium [Refresh Tears] 30 ML drops 2 drp OU BID cholecalciferol (vitamin D3) [Vitamin D3] 400 UNIT tablet 2,000 unit PO DAILY folic acid 0.8 MG tablet 0.8 mg PO DAILY Fortifeye 1 tab PO DAILY riboflavin (vitamin B2) 400 mg tablet 400 mg PO DAILY cephalexin 500 mg tablet 500 mg PO Q6H 7 Days Qty: 28 0RF bupropion HCl 100 mg tablet sustained-release 12 hr 100 mg PO DAILY Qty: 11 0RF Rx Instructions: Take 100 mg every day for the next 7 days and then take 100 mg every other day for the second week Discontinued acetaminophen 325 mg tablet 650 mg PO BID Discharge Instructions Additional Instructions: Flexor Tendon Repair Discharge Instructions Activity: You should keep the hand elevated as much as possible for the first few days. You may use your index finger and thumb for light activities with the splint in place. You may work on gentle flexion of the affected fingers Dressing/Cast: Your splint should stay in place at all times. Do NOT get it wet. You may loosen the YUN wrap if you feel it is too tight and then rewrap more loosely. Medications: - You should take Tylenol and Ibuprofen for baseline pain control. - You have Hydrocodone for breakthrough pain. - You may apply ice over the hand. Follow-up: 7-10 days Referrals: Derrek Johnson MD [ [facility] STAFF PHYSICIAN] - Equipment/Supplies: Splint Activity:: Elevate Remove Dressings/Wound Care:: Do Not Remove Shower/Bathe:: Cover Diet:: As Tolerated Discharge Orders Discharge Orders: Discharge Order (Routine); Ordered 05/07/25 Ordered By: Russell Castillo DS: Diagnosis Discharge Diagnosis (1) Laceration [place] flexor tendon [place]: Status: Acute
[2025-05-07] MEDS: Lidocaine 1% Multi-Dose W/EPI 1/100,000 50 ML VIAL (13:45)
[2025-05-07] MEDS: Sodium Bicarbonate 50 MEQ/50 ML VIAL (13:51)
[2025-05-07 15:22] VITALS: BP 135/106; PULSE 68; RESP 18; TEMP 36.4; O2SAT 94
--- NOTE | 2025-05-07 15:46 | ROE_ITS ---
Operative Note Operative Note PRE-OP DIAGNOSIS: Right little finger flexor tendon laceration POST-OP DIAGNOSIS: same PROCEDURE: Operative fixation of zone 2 flexor tendon laceration, right little finger SURGEON: Derrek Johnson BACK OFFICE MEDICAL ASSISTANT: Russell Castillo ANESTHESIA TYPE: Local By Surgeon Refer to Anesthesia Record ESTIMATED BLOOD LOSS: 10 TOURNIQUET TIME: 0 COMPLICATIONS: None Patient was transported to: same day Indications: Kelly is a 74 year old female who cut her little finger with a kitchen knife and suffered a laceration to the little finger flexor tendon, confirmed with clinical exam and ultrasound. I saw her in clinic and recommended operative fixation urgently given the Zone II location of the tendon injury. I reviewed the surgery with her once again today and discussed risks to include bleeding, infection, pain, stiffness, weakness, rerupture, need for repeat procedures. Despite this, she desires to proceed. Findings: There was a transverse laceration of righ little finger FDP at Zone II with the proximal tendon resting at the A1 karlie. The tendon was repair with a M Gzuman 6 suture technique with 4-0 Fiberloop. Procedure Description: Kelly was greeted in the day surgery area. Her identity was confirmed and the correct side was identified and marked. The consent was reviewed with the patient and signed. She was then taken back to the OR, kept on the stretcher, with the right arm on a hand table. An ultrasound was then used to evaluate the hand and identify the defect as well as the location of the proximal stump, at the distal edge of the A1 karlie. The hand and distal upper extremity were prepped with Chloraprep and draped in a standard fashion. A timeout was performed for safe surgery. The hand was then anesthetized with 1% Lidocaine with Epinephrine and buffered with sodium bicarbonate. This was done with a WALANT technique anesthetizing proximally and then moving onto the little finger digit. Once anesthetic is set up the case ensued. The previous transverse laceration was extended and then a longitudinal limb was extended proximally and distally. A transverse limb was also carried through the DIP flexion crease. Blunt dissection was carried down with tenotomy scissors to expose the region of the flexor tendon sheath. There was an obvious vacant space overlying the middle phalanx. Camper's chiasm was observed without any FDP tendon visible. The A4 karlie was intact but empty. It was transected. Dissection carried distally, removing some of the flexor tendon sheath show the transected stump of the FDP tendon. With DIP flexion is able to bring this into view. This was a clean cut without any significant tendon damage. Attention was then turned to the proximal portion of the FDP tendon. Based on the ultrasound, this was located around the A1 karlie. I did spend a few minutes to try and grasp it from within the flexor tendon sheath in the previous wound. However, is unable to. Therefore, I made a small longitudinal incision overlying the distal aspect of the A1 karlie. This is taken down sharply through the skin and then bluntly to expose the flexor tendon sheath. I was just distal to the A1 karlie where I made a small rent in the flexor tendon sheath. I was able to identify the flexor digitorum superficialis tendon and move it out of the way exposing the FDP tendon deep. The tendon was stuck in this location is able to pull it out through the wound. I then used an Arthrex fiber snare to shuttle suture and the tendon back through the flexor tendon sheath from proximal distal and through camper's chiasm. The tendon was easily reapproximated. The edges were inspected and showed no signs of significant damage. I then used a 4-0 fiber loop suture to perform an M-Guzman 6 flexor tendon repair. The first pass provided significant reapproximation of the tendon. It was tested and did not show any signs of gapping. Second portion of this suture repair technique allowed reinforcement of the repair. The sutures were tied and the knots were buried. Danilo was then asked to move the finger in flexion extension there was no signs of gapping. I then performed an epitendinous repair utilizing a #6-0 nylon. The finger was taken through range of motion once again by the patient and this showed no gapping of the repair site and also showed no impingement of the repair site on any other tissues. The wounds were then thoroughly irrigated. They were closed with #4-0 nylon. A dorsal blocking splint was placed after covering the wounds with Xeroform, 4 x 4's gauze and Webril. She tolerated the procedure well. She was taken back to the day surgery unit in stable condition. She will start hand therapy on Monday with active flexion with no active extension. She should utilize a dorsal blocking splint to ensure no significant extension as you work on active motion initially. Date of Procedure: 05/07/25
== END 2025-05-07 15:37 | disposition home or self-care (01) ==
PROVIDERS: PCP Nurse Practitioner Family; Visit Provider Student in an Organized Health Care Education/Training Program
PROC: (CPT 26356; principal; 2025-05-07 13:30)
DX: S66.126A Laceration of flexor muscle, fascia and tendon of right little finger at wrist and hand level, initial encounter (principal); W26.0XXA Contact with knife, initial encounter; I12.9 Hypertensive chronic kidney disease with stage 1 through stage 4 chronic kidney disease, or unspecified chronic kidney disease; N18.30 Chronic kidney disease, stage 3 unspecified; Z95.2 Presence of prosthetic heart valve; J45.909 Unspecified asthma, uncomplicated
CPT/HCPCS: 26356; J2004

== ENCOUNTER 2025-06-06 01:11 | Outpatient (CLI) | payer OTHER, SELFPAY ==
[2025-06-06] MEDS: Inhaler, Assist Device 1 EACH MC (08:56)
[2025-06-06] MEDS: Levalbuterol HFA 15 GM INH 4 PUFF IH (08:56)
--- NOTE | 2025-06-23 11:19 | W.PFT ---
Date of service: 06/06/25 Time of Service: 07:57 Pulmonary Function Test Result Indications: Interstitial lung disease Impression 1. Good patient effort was noted. ATS standards for reproducibility were met. 2. Spirometry showed mild obstructive lung disease with an FEV1 of 95% (1.85 L) 3. Following the administration of a bronchodilator there was not a significant response 4. TLC is normal. No evidence of restrictive lung disease 5. DLCO is reduced at 53%, consistent with a moderate defect in alveolar gas exchange
== END 2025-06-06 01:12 | disposition home or self-care (01) ==
LOC: RT 01:12
PROVIDERS: PCP Nurse Practitioner Family; Referring Provider Physician Assistant Surgical; Visit Provider Internal Medicine Pulmonary Disease
DX: J84.9 Interstitial pulmonary disease, unspecified (principal); J47.9 Bronchiectasis, uncomplicated; J45.909 Unspecified asthma, uncomplicated
CPT/HCPCS: 94060; 94726; 94729

== ENCOUNTER 2025-07-20 22:15 | Inpatient (IN) | payer OTHER, SELFPAY ==
[2025-07-20] VITALS (16 sets, daily range): BP systolic 145–171; BP diastolic 41–65; PULSE 72–89; RESP 16–22; TEMP 36.8; O2SAT 88–93
--- NOTE | 2025-07-20 22:08 | W.ED.GENAD ---
Discharge Plan Disposition Patient Disposition: Admit to [facility] Condition: Fair Discharge Details Clinical Impression: Colitis Primary Care Provider: Vanita Churchill ED Provider: Richy Thayer Benson Kains and New Rx's Prescriptions: No Action hydrocortisone 1 % Cream 1 applic TOPICAL BID PRN ferrous sulfate [iron] 325 mg (65 mg iron) Tablet 28 mg PO DAILY (DME) nebulizers Misc MISCELLANEOUS Zyrtec 10 mg Capsule 10 mg PO DAILY PRN loperamide [Imodium A-D] 2 mg capsule 2 mg PO Q6H PRN albuterol sulfate 1.25 mg/3 mL solution for nebulization 1.25 mg inhalation QID PRN (Reason: shortness of breath or wheezing) Qty: 90 6RF fluticasone propion-salmeterol [Wixela Inhub] See Rx Instructions inhalation DAILY Rx Instructions: inhaled daily; magnesium 200 mg tablet 200 mg PO DAILY Patient Comments: Patient unsure of exact dosage losartan 100 mg tablet 100 mg PO DAILY 90 Days Qty: 90 3RF albuterol sulfate 90 mcg/actuation HFA aerosol inhaler 2 puff INHALATION Q4H PRN (Reason: shortness of breath or wheezing) Qty: 8.5 5RF carvedilol 6.25 mg tablet 12.5 mg PO BID Rx Instructions: must administer with a meal/food 03/24/[address] Diaz amlodipine 10 mg tablet 10 mg PO DAILY Qty: 90 3RF citalopram [Celexa] 40 mg tablet 20 mg PO DAILY Qty: 60 3RF ziprasidone HCl [Geodon] 20 mg capsule 20 mg PO BID Qty: 180 3RF rosuvastatin 20 mg tablet 20 mg PO HS Qty: 90 3RF omeprazole 40 mg capsule,delayed release(/EC) 40 mg PO DAILY Qty: 90 3RF levothyroxine 50 mcg tablet 50 mcg PO DAILY Qty: 30 0RF nystatin 100,000 unit/gram cream 1 applic Topical TID Qty: 30 3RF Rx Instructions: apply under breasts and abd fold ezetimibe [Zetia] 10 mg tablet 10 mg PO HS Qty: 90 3RF multivitamin [Daily Multi-Vitamin] 1 EACH tablet 1 tab PO DAILY aspirin 325 MG tablet 325 mg PO DAILY calcium carbonate-vitamin D3 1 EACH tablet 2 tab PO DAILY carboxymethylcellulose sodium [Refresh Tears] 30 ML drops 2 drp OU BID cholecalciferol (vitamin D3) [Vitamin D3] 400 UNIT tablet 2,000 unit PO DAILY folic acid 0.8 MG tablet 0.8 mg PO DAILY Fortifeye 1 tab PO DAILY riboflavin (vitamin B2) 400 mg tablet 400 mg PO DAILY bupropion HCl 150 mg tablet sustained-release 12 hr 150 mg PO DAILY fluticasone propion-salmeterol [Advair Diskus] 250-50 mcg/dose blister with device 1 inh inhalation BID acetaminophen 500 mg tablet 1,000 mg PO Q6H PRN metoprolol succinate 25 mg tablet extended release 24 hr 25 mg PO DAILY HPI General Mode of arrival: EMS. Date/Time Provider Initiated Documentation: 07/20/25 22:15. Limitations to Documentation: no limitations. Information obtained by: patient, RN notes reviewed and old records reviewed. HPI Narrative: Patient presents to ED with lower abdominal pain mostly right sided. Began around lunchtime today. Has gotten worse over time. Has had some diarrhea over the course of today but beginning to be solid again now. Nausea and dry heaves present. No fever or back pain. She does report some dysuria. Denies any type of chest pain, cough, shortness of breath. She is status postcholecystectomy and appendectomy in the past. Related Data Home Medications ?Medication ?Instructions ?Recorded ?Confirmed aspirin 325 mg tablet 325 mg PO DAILY 03/21/14 07/20/25 calcium 600 mg (as 2 tab PO DAILY 03/21/14 07/20/25 carbonate)-vitamin D3 5 mcg (200 unit) tablet carboxymethylcellulose sodium 0.5 2 drp OU BID 03/21/14 07/20/25 % eye drops (Refresh Tears) cholecalciferol (vitamin D3) 10 2,000 unit PO DAILY 03/21/14 07/20/25 mcg (400 unit) tablet (Vitamin D3) folic acid 800 mcg tablet 0.8 mg PO DAILY 03/21/14 07/20/25 multivitamin (Daily Multi-Vitamin 1 tab PO DAILY 03/21/14 07/20/25 tablet) cetirizine 10 mg capsule (Zyrtec) 10 mg PO DAILY PRN 05/20/20 07/20/25 ferrous sulfate 325 mg (65 mg 28 mg PO DAILY 05/20/20 07/20/25 iron) tablet (iron) hydrocortisone 1 % topical cream 1 applic topical BID PRN 05/20/20 07/20/25 nebulizers 05/20/20 07/20/25 Fortifeye 1 tab PO DAILY 09/21/20 07/20/25 albuterol sulfate 1.25 mg/3 mL 1.25 mg (3 mL) inhalation QID PRN 06/19/24 07/20/25 solution for nebulization shortness of breath or wheezing #90 mL loperamide 2 mg capsule (Imodium 2 mg PO Q6H PRN 06/19/24 06/16/25 A-D) riboflavin (vitamin B2) 400 mg 400 mg PO DAILY 08/12/24 07/20/25 tablet fluticasone propion-salmeterol See Rx Instructions inhalation 09/19/24 06/16/25 [Wixela Inhub] DAILY citalopram 40 mg tablet (Celexa) 20 mg (1/2 x 40 mg) PO DAILY #60 10/18/24 07/20/25 tabs ziprasidone HCl 20 mg capsule 20 mg PO BID #180 caps 11/12/24 07/20/25 (Geodon) losartan 100 mg tablet 100 mg PO DAILY 90 days #90 tabs 01/03/25 07/20/25 rosuvastatin 20 mg tablet 20 mg PO HS #90 tabs 01/28/25 07/20/25 albuterol sulfate 90 mcg/actuation 2 puff inhalation Q4H PRN 01/31/25 07/20/25 aerosol inhaler shortness of breath or wheezing #8.5 grams omeprazole 40 mg capsule,delayed 40 mg PO DAILY #90 caps 02/28/25 07/20/25 release carvedilol 6.25 mg tablet 12.5 mg PO BID 04/09/25 07/20/25 levothyroxine 50 mcg tablet 50 mcg PO DAILY #30 tabs 04/22/25 07/20/25 nystatin 100,000 unit/gram topical 1 applic topical TID #30 grams 04/30/25 07/20/25 cream amlodipine 10 mg tablet 10 mg PO DAILY #90 tabs 05/02/25 07/20/25 magnesium 200 mg tablet 200 mg PO DAILY 05/23/25 07/20/25 ezetimibe 10 mg tablet (Zetia) 10 mg PO HS #90 tabs 07/07/25 07/20/25 acetaminophen 500 mg tablet 1,000 mg PO Q6H PRN 07/20/25 07/20/25 bupropion HCl 150 mg tablet,12 hr 150 mg PO DAILY 07/20/25 07/20/25 sustained-release fluticasone 250 mcg-salmeterol 50 1 inh inhalation BID 07/20/25 07/20/25 mcg/dose blistr powdr for inhalation (Advair Diskus) metoprolol succinate 25 mg 25 mg PO DAILY 07/20/25 07/20/25 tablet,extended release 24 hr Previous Rx's ?Medication ?Instructions ?Recorded albuterol sulfate 1.25 mg/3 mL 1.25 mg (3 mL) inhalation QID PRN 06/19/24 solution for nebulization shortness of breath or wheezing #90 mL citalopram 40 mg tablet (Celexa) 20 mg (1/2 x 40 mg) PO DAILY #60 10/18/24 tabs ziprasidone HCl 20 mg capsule 20 mg PO BID #180 caps 11/12/24 (Geodon) losartan 100 mg tablet 100 mg PO DAILY 90 days #90 tabs 01/03/25 rosuvastatin 20 mg tablet 20 mg PO HS #90 tabs 01/28/25 albuterol sulfate 90 mcg/actuation 2 puff inhalation Q4H PRN 01/31/25 aerosol inhaler shortness of breath or wheezing #8.5 grams omeprazole 40 mg capsule,delayed 40 mg PO DAILY #90 caps 02/28/25 release levothyroxine 50 mcg tablet 50 mcg PO DAILY #30 tabs 04/22/25 nystatin 100,000 unit/gram topical 1 applic topical TID #30 grams 04/30/25 cream amlodipine 10 mg tablet 10 mg PO DAILY #90 tabs 05/02/25 ezetimibe 10 mg tablet (Zetia) 10 mg PO HS #90 tabs 07/07/25 Allergies Allergy/AdvReac Type Severity Reaction Status Date / Time cocoa butter (From Allergy Intermediate Bleeding Verified 07/20/25 22:30 Preparation H) glycerin (From Preparation H) Allergy Intermediate Bleeding Verified 07/20/25 22:30 latex Allergy Intermediate Skin Rash Verified 07/20/25 22:30 mineral oil* (From Allergy Intermediate Bleeding Verified 07/20/25 22:30 Preparation H) petrolatum,white (From Allergy Intermediate Bleeding Verified 07/20/25 22:30 Preparation H) phenylephrine (From Allergy Intermediate Bleeding Verified 07/20/25 22:30 Preparation H) shark liver oil (From Allergy Intermediate Bleeding Verified 07/20/25 22:30 Preparation H) bismuth subsalicylate (From Allergy Mild Irritation/ Verified 07/20/25 22:30 Kaopectate (bismuth soreness subsalicy)) lisinopril AdvReac Intermediate Cough Verified 07/20/25 22:30 General BLAIR: 3 Exam Narrative Exam Narrative: Const: WDWN elderly female in NAD. VS per triage. HEENT: NC/AT. Normal facial exam. Neck: Supple. Trachea midline. Lungs: Normal respiratory effort. Lungs are clear. Cor: RRR with faint murmur. Good radial pulses. GI: Soft/ND. Tender across the suprapubic area to LLQ with voluntary guarding. Neuro: A+O x 3. Normal speech, mentation, gait. Cranial nerves II - XII grossly intact. No gross motor or sensory deficit. Ext: No C/C/E. Medical Decision Making Patient presenting to ED with worsening lower abdominal pain now associated with nausea and dry heaves. Does describe dysuria but denies back pain or fever. Exam significant for tenderness with some voluntary guarding from the right suprapubic area to the left lower quadrant. She is status post appendectomy and cholecystectomy in the past. While she does complain of dysuria suspect this is likely going to be related to diverticulitis or colitis. She received Zofran and Tylenol by IV during EMS transport. Will give a fluid bolus and obtain labs, urine, CT scan of the abdomen pelvis. Patient's laboratory studies significant for white count of 13.1. Creatinine slightly bumped at 1.3. Otherwise laboratory studies including VBG and lactic acid are normal. Urinalysis negative for infection. Received a call from radiology regarding findings on CT scan. Patient appears to have colitis involving the cecal area but there is likely a noninflamed giant diverticula extending out from the cecum but was not clear-cut inflammation involving the diverticula itself. Potentially could be malignancy with ulceration but there is no evidence of abscess, free air, free fluid. Case discussed with surgery, Dr. Gee, as well as with hospitalist, Dr. Douglas. Patient will be kept NPO. She is given IV ceftriaxone and Flagyl. Continue fluid hydration and admit to hospitalist service with surgical consult. Discussed with patient who is in agreement with plan for admission. Medical Records Medical records reviewed: Yes I reviewed the patient's medical records. Imaging Data Radiologic Study: Imaging: CT Scan Radiologist's impression: IMPRESSION: 1. There is diffuse thickening of the wall of the cecum through which protrudes a 2.7 cm contained rounded pocket of stool with imperceptible wall, contiguous with the stool filled lumen of the cecum (axial series 8/images [id number] and coronal series 4/images 29-26 and sagittal series 6/images 42-46). There is mild inflammatory fat stranding associated with thickened wall of the cecum but not with the aforementioned 2.7 cm protruding pocket of stool. Differential diagnosis includes cecal colitis with incidental giant noninflamed diverticula, atypical appearing giant cecal diverticulitis, or cecal malignancy with focal wall ulceration/contained perforation. No abscess. No pneumoperitoneum. No free intraperitoneal fluid/stool. 2. Indeterminate mildly prominent 5 mm short axis right lower quadrant mesenteric lymph node. 3. Subtle 2.6 cm area of hypodensity in the periphery of the inferior right lobe of the liver is indeterminate but potentially focal fatty infiltration. No priors for comparison. Thank you for allowing us to participate in the care of your patient. Dictated and Authenticated by: Abelardo Truong MD Lab Data Lab results reviewed: Yes I reviewed the patient's lab results. Lab results narrative: see [facility] All Active Problems (Updated 07/21/25 @ 01:32 by Richy Thayer MD) Colitis (Acute) Viral URI (Acute) Laceration of flexor tendon of right [place] (Acute) Pes anserinus bursitis of left knee (Acute) Internal derangement of left knee (Acute ~09/2024) Left knee DJD (Chronic) CKD (chronic kidney disease) stage 3, GFR 30-59 ml/min (Acute) Knee pain, left (Acute) Plantar wart of left foot (Acute) Parotiditis (Acute) Hypertension (Chronic) Interstitial lung disease (Acute) Bronchiectasis (Acute) Asthma (Chronic) Abnormal CT scan, chest (Acute) Diverticulosis (Acute 12/06/12) Presence of prosthetic heart valve (Acute) Atherosclerosis (Acute) Pain in right shoulder (Acute) Pain, joint, shoulder, left (Acute) Dysphagia (Acute) Paresthesia (Acute) Disorder of sacrum (Acute) Pain in thoracic spine (Acute) Joint pain (Acute) Disorder of kidney and ureter (Acute) Chronic obstructive lung disease (Chronic) Peripheral vascular disease (Chronic) Carotid artery stenosis (Acute) Aortic stenosis (Chronic) HX TAVR 03/07/23 Pulmonary hypertension (Acute) Essential (primary) hypertension (Acute) Sensorineural hearing loss (Acute) Hearing loss (Acute) Benign paroxysmal positional vertigo (Acute) Migraine (Chronic) Giant cell arteritis (Acute) Imbalance (Acute) Sensorineural hearing loss of both ears (Acute) Sacroiliac joint dysfunction of left side (Acute) Trochanteric bursitis, left hip (Acute) Asymmetrical sensorineural hearing loss (Acute) Medical History (Updated 07/21/25 @ 01:32 by Richy Thayer MD) History of transcatheter aortic valve replacement (TAVR) 03/07/23 Malaise and fatigue History of tobacco use Obesity Depression Cervicalgia Vertigo benign, postural Macular degeneration Polyarthralgia Arthritis, rheumatoid GERD (gastroesophageal reflux disease) Emphysema of lung Heart murmur Back pain CHEMA (obstructive sleep apnea) Hypothyroidism Hemorrhoids Cervical radiculopathy History of paroxysmal supraventricular tachycardia Claudication IBS (irritable bowel syndrome) Elevated creatine kinase level Hematuria Anemia Bilateral carotid artery stenosis Trochanteric bursitis of left hip Right bundle branch block Hyperlipidemia Cough Surgical History Hx of cholecystectomy Hx of appendectomy History of colonoscopy (12/06/12) History of temporal artery biopsy (~06/2023) Status post insertion of iliac artery stent Family History Mother Asthma Anxiety Depression Hypertension Maternal Aunt Cancer breast ca Father Heart disease Maternal Grandmother Diabetes Maternal Grandfather Diabetes Paternal Grandmother Diabetes Paternal Grandfather Diabetes Son Cancer leukemia Daughter Hypertension Social History Smoking/Tobacco Use Status: Former Tobacco Use Quit Date: 11/27/03 Tobacco: How many years used: 40 Smoking risk assessment performed?: Yes Alcohol Intake: current Alcohol Intake frequency: holidays/special occasions only Drug use: Never Substance use type: does not use Adopted: No Caregiver/Support person: No Foster care: Yes Household members: children Housing: house Number of Children: 3 number of grandchildren: 5 Communication Needs: Hard of Hearing Education Level: college Do you need help understanding health information?: Rarely 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 Pets and animals: Yes (4 Dogs, 2 Cats and 2 Birds) Pets and animals: cat(s), dog(s) and bird(s) Sexually active: No Do you think of yourself as: straight/heterosexual Current gender identity: female What is your relationship status?: How often do you talk on the phone with friends or family?: twice per week How often do you get together with friends or relatives?: once per week Do you belong to any clubs or organized social groups?: yes Panel score (0-1 are the most socially isolated patients): 2 What type of physical activity do you participate in: independent ambulation and bicycling Sammi/[employer]ist: Orthodox Special sammi needs: Yes (Last Rights) Seatbelt use: always Helmet use: No Drive intox or ride w/intox pizza driver: No Do you feel safe at home: Yes Do you feel safe in your relationship?: Yes Additional Social history: quit smoking 21 years ago
--- NOTE | 2025-07-20 22:15 | DI.CT_ITS ---
Exam(s) CT ABDOMEN PELVIS W EXAM: CT ABDOMEN PELVIS W CLINICAL HISTORY: lower abd pain/tenderness; vomiting TECHNIQUE: Imaging Protocol: Axial computed tomography images with coronal and sagittal reformatted images were created and reviewed. CONTRAST MATERIAL: Intravenous: Omnipaque 350 Contrast volume:75 mL Oral: No COMPARISON: CT ABD PELVIS WITH CONTRAST from 08/03/[address] CHEST WO from 06/07/[address] NECK CHEST W from 08/12/2024 CR XR CHEST 2V PA LATERAL from 12/09/2024 FINDINGS: ABDOMEN: Lung Bases: There is cardiomegaly present. There is mild diffuse thickening of the wall of the distal esophagus. Chronic interstitial changes are seen in the lung bases, particularly on the right. There are no focal consolidating infiltrates present. Atelectatic changes are seen in the lung bases. Liver: Normal density. No measurable mass. There is an area of decreased attenuation at the inferior aspect of the liver which appears to lie at the region of the gallbladder fossa and likely represents focal fatty infiltration. Portal, Superior Mesenteric, and Splenic Veins: Unremarkable. Gallbladder and Biliary Tract: Status post cholecystectomy. There is no significant biliary ductal dilatation. Pancreas: Normal density, no abnormal calcifications or inflammatory process. Spleen: Normal. Adrenals: No masses seen. Kidneys: There is marked atrophy of the left kidney. There is parenchymal scarring seen in the right kidney. There is a nonobstructing stone in the midpole of the right kidney. Small simple cysts are seen in both kidneys. No follow-up is recommended. Abdominal Aorta: There is significant atherosclerotic calcification of the abdominal aorta present. The findings are marked involving the distal abdominal aorta, left renal artery and the common iliac arteries. There is marked stenosis involving the right common femoral artery and the right internal iliac artery. Bowel: There is diverticulosis of the colon. There is no evidence of diverticulitis. There is thickening of the wall of the cecum (series 8, image 73). The thickening is concentric. There is an adjacent focal outpouching in the cecum (series 8, image 79). An appendix is not definitely visualized. There is no evidence of bowel obstruction. Postsurgical changes are seen at the gastroesophageal junction. There is no evidence of pneumatosis. Peritoneal Cavity: No ascites, collection or mesenteric inflammatory response. There are foci of air density seen in the superior aspect of the liver.This may represent pneumobilia. The air in the right upper quadrant appears to lie within small bowel loops. Lymph Nodes: There is a mildly prominent lymph node in the right lower quadrant (series 8, image 64). Bones: Within normal limits for the patient's age. Soft Tissues: There is a small fat containing left inguinal hernia. PELVIS: Bladder: Symmetric distention, no gross wall thickening. Reproductive Organs: Unremarkable as visualized. Lymph Nodes: Within normal limits. Bones: Within normal limits for the patient's age. IMPRESSION: 1. Concentric thickening in the wall of the mid cecum. Neoplasm should be considered in this patient. Inflammatory/infectious process such as colitis or diverticulitis should also be considered. 2. There is an area of decreased attenuation in the right lobe of the liver. It is adjacent to the gallbladder fossa and likely represents focal fatty infiltration. 3. Extensive atherosclerotic calcification is present with marked stenosis involving the right internal iliac artery, left renal artery and the right common femoral artery. 4. Marked left renal atrophy. 5. Mild diffuse thickening of the wall of the distal esophagus. This may represent an infectious or inflammatory esophagitis. Please correlate clinically. 6. Diverticulosis is seen in the distal colon. RADIATION DOSE DELIVERED: 438.89mGy.cm Total DLP DATA REPOSITORY: All CT scans at this facility are submitted to the National Radiology Data Registry (NRDR) Dose Index Registry (DIR) with the [employer] (ACR). RADIATION OPTIMIZATION: All CT scans at this facility use at least one of these dose optimization techniques: automated exposure control; mA and/or kV adjustment per patient size (includes targeted exams where dose is matched to clinical indication); or iterative reconstruction.
[2025-07-20 22:31] LABS: BE (Venous) -1 mmol/L (-2-3); HCO3 (Venous) 24 mmol/L (23-28); O2 Sat (Venous) 69 %; TCO2 (Venous) 22 mmol/L (24-29); pCO2 (Venous) 44 mmHg (41-51); pO2 (Venous) 34 mmHg
[2025-07-20 22:32] LABS: Abs Immature Grans 0.06 10^3/uL (0.0-0.06); HCT 40.4 % (36.0-46.0); HGB 13.8 g/dL (11.2-15.7); Immature Grans % 0.5 %; MCH 33.2 pg (27.0-33.0); MCHC 34.2 % (32.0-36.0); MCV 97 fL (80-95); MPV 9.7 fL (8.0-11.0); Platelet Count 204 10^3/uL (130-400); RBC 4.16 10^6/uL (3.93-5.22); RDW 11.6 % (11.7-14.6); RDW-SD 41.5 fL; WBC 13.06 10^3/uL (4.4-10.8)
[2025-07-20 22:47] LABS: Glucose Negative (Negative)
[2025-07-20 22:48] LABS: ALT 22 U/L (14-59); AST 18 U/L (15-37); Albumin 3.8 g/dL (3.4-5.0); Alkaline Phosphatase 83 U/L (46-116); Anion Gap 9.7 mmol/L (3-11); BUN 17 mg/dL (7-18); Bilirubin, Total 0.5 mg/dL (0.2-1.0); CO2 26.3 mmol/L (21.0-32.0); Calcium 9.3 mg/dL (8.5-10.1); Chloride 104 mmol/L (98-107); Estimated GFR 42.62 (mL/min/1.73m2); Glucose 137 mg/dL (74-106); Lipase 35 U/L (<78); Magnesium 1.8 mg/dL (1.8-2.4); Potassium 4.0 mmol/L (3.5-5.1); Sodium 140 mmol/L (136-145); Total Protein 7.6 g/dL (6.4-8.2)
[2025-07-20] MEDS: Normal Saline 1,000 ML 1000 ML IV (22:48)
[2025-07-20 22:59] LABS: C & S Indicated? No; RBC 0-2 HPF (0-2); WBC 0-2 HPF (0-5)
[2025-07-20] MEDS: Omnipaque 350 MG/ML 100 ML BTL IJ (23:45)
[2025-07-20] MEDS: Normal Saline Flush 10 ML SYR IVP (23:45)
[2025-07-20] MEDS: Normal Saline - Diluent 50 ML VIAL IJ (23:45)
[2025-07-21] VITALS (33 sets, daily range): BP systolic 117–196; BP diastolic 44–77; PULSE 76–98; RESP 15–30; TEMP 37–38.2; O2SAT 86–97
--- NOTE | 2025-07-21 00:20 | DI.VRAD_ITS ---
Addendum created by Abelardo Truong MD on 07/21/2025 12:21:16 AM EDT: Findings discussed with MARY ANN RODRIGUEZ MD at time of interpretation. Initial report created on 07/21/2025 12:20:21 AM EDT: PROCEDURE INFORMATION: Exam: CT Abdomen And Pelvis With Contrast Exam date and time: 07/20/2025 11:41 PM Age: 74 years old Clinical indication: Abdominal pain; Additional info: Lower abd pain/tenderness; Vomiting TECHNIQUE: Imaging protocol: Computed tomography of the abdomen and pelvis with contrast. Contrast material: OMNI 350; Contrast volume: 75 ml; Contrast route: INTRAVENOUS (IV); COMPARISON: CT NECK CHEST W 08/12/2024 9:06 AM FINDINGS: Lungs: Scarring/subsegmental atelectasis at the lung bases. Heart: Cardiomegaly. Dense mitral annular calcification. Liver: Subtle 2.6 cm area of hypodensity in the periphery of the inferior right lobe of the liver is indeterminate but potentially focal fatty infiltration. No priors for comparison. Gallbladder and biliary ducts: Prior cholecystectomy. No biliary ductal dilatation. Pancreas: Unremarkable. Spleen: Normal. Adrenal glands: Normal. No mass. Kidneys and ureters: Substantial atrophy of the left kidney. Compensatory hypertrophy of the right kidney. Right renal cortical scarring. Small right renal cyst. Stomach and bowel: There is diffuse thickening of the wall of the cecum through which protrudes a 2.7 cm contained rounded pocket of stool with imperceptible wall, contiguous with the stool filled lumen of the cecum (axial series 8/images 76-79 and coronal series 4/images 29-26 and sagittal series 6/images 42-46). There is mild inflammatory fat stranding associated with thickened wall of the cecum but not with the aforementioned 2.7 cm protruding pocket of stool. Differential diagnosis includes cecal colitis with incidental giant noninflamed diverticula, atypical appearing giant cecal diverticulitis, or cecal malignancy with focal wall ulceration/contained perforation. No abscess. No pneumoperitoneum. No free intraperitoneal fluid/stool. Colonic diverticulosis. No intestinal obstruction. Appendix: Appendix not visualized. Intraperitoneal space: See Stomach and bowel finding. Vasculature: Unremarkable. Lymph nodes: Indeterminate mildly prominent 5 mm short axis right lower quadrant mesenteric lymph node. Urinary bladder: Unremarkable as visualized. Reproductive: Unremarkable as visualized. Bones/joints: Unremarkable. No acute fracture. Soft tissues: Unremarkable. IMPRESSION: 1. There is diffuse thickening of the wall of the cecum through which protrudes a 2.7 cm contained rounded pocket of stool with imperceptible wall, contiguous with the stool filled lumen of the cecum (axial series 8/images 76-79 and coronal series 4/images 29-26 and sagittal series 6/images 42-46). There is mild inflammatory fat stranding associated with thickened wall of the cecum but not with the aforementioned 2.7 cm protruding pocket of stool. Differential diagnosis includes cecal colitis with incidental giant noninflamed diverticula, atypical appearing giant cecal diverticulitis, or cecal malignancy with focal wall ulceration/contained perforation. No abscess. No pneumoperitoneum. No free intraperitoneal fluid/stool. 2. Indeterminate mildly prominent 5 mm short axis right lower quadrant mesenteric lymph node. 3. Subtle 2.6 cm area of hypodensity in the periphery of the inferior right lobe of the liver is indeterminate but potentially focal fatty infiltration. No priors for comparison. Dictated and Authenticated by: Abelardo Truong MD. Orderin Jeovany Lockhart MD
[2025-07-21] MEDS: cefTRIAXone 1 GM/50 ML BAG IVPB ×2 (00:35→23:29)
[2025-07-21] MEDS: metroNIDAZOLE 500 MG/100 ML BAG 100 MG IVPB ×2 (01:07→18:02)
--- NOTE | 2025-07-21 02:04 | W.PM.HP.N ---
Date of service: 07/21/25 Time of Service: 01:30 Assessment and Plan Assessment and plan (1) Mass of cecum: Status: Acute Assessment and plan: Abdominal pain likely back to at least April given clinic record No gallbladder, no appendix CT showing cecal mass concerning for colitis vs diverticular disease vs malignancy General surgery consulted, acknowledged by Dr Gee NPCindy IV fluids PRN narcotics (2) Abnormal CT scan, liver: Status: Acute Assessment and plan: July 20 CT abdomen/pelvis showing inferior right lobe 2.6 hypodensity Outpatient followup (3) Interstitial lung disease: Status: Chronic Assessment and plan: Hold home regimen PRN duonebs (4) Essential (primary) hypertension: Status: Chronic Assessment and plan: continue carvedilol, losartan (5) Depression: Assessment and plan: continue buproprion (6) Peripheral vascular disease: Status: Chronic Assessment and plan: continue statin, ezetimibe (7) Chronic GERD: Status: Chronic Assessment and plan: continue PPI History of Present Illness History of Present Illness Chief Complaint: abdominal pain Narrative: Lindsey Deleon is a 74 year old woman presenting July 20 with RLQ abdominal pain. She reports that the pain has been present, worsening, for a few days. She had diarrhea earlier in the day. She has nausea and has had some dry heaves. Some pain with urination. She has had a cholecystectomy and appendectomy. She was seen by her PCP in April for postprandial suprapubic pain. She denies chest pain, SOB, fever, back pain. 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 In the ED vitals were unremarkable. Neutrophilic leukocytosis 13.06. Creatinine 1.3 which is about baseline. Proteinuria. CT abdomen/pelvis showing cecal thickening with 2.7 pocket of stool concerning for colitis vs diverticular disease vs malignancy, with some nearby lymphadenopathy. PFSH All Active Problems (Updated 07/21/25 @ 05:28 by Dominguez Douglas MD) Hypothyroidism (Chronic) Chronic GERD (Chronic) Mass of cecum (Acute) Abnormal CT scan, liver (Acute) Colitis (Acute) Viral URI (Acute) Laceration of flexor tendon of right [place] (Acute) Pes anserinus bursitis of left knee (Acute) Internal derangement of left knee (Acute ~09/2024) Left knee DJD (Chronic) CKD (chronic kidney disease) stage 3, GFR 30-59 ml/min (Acute) Knee pain, left (Acute) Plantar wart of left foot (Acute) Parotiditis (Acute) Hypertension (Chronic) Interstitial lung disease (Chronic) Bronchiectasis (Acute) Asthma (Chronic) Abnormal CT scan, chest (Acute) Diverticulosis (Acute 12/06/12) Presence of prosthetic heart valve (Acute) Atherosclerosis (Acute) Pain in right shoulder (Acute) Pain, joint, shoulder, left (Acute) Dysphagia (Acute) Paresthesia (Acute) Disorder of sacrum (Acute) Pain in thoracic spine (Acute) Joint pain (Acute) Disorder of kidney and ureter (Acute) Chronic obstructive lung disease (Chronic) Peripheral vascular disease (Chronic) Carotid artery stenosis (Acute) Aortic stenosis (Chronic) HX TAVR 03/07/23 Pulmonary hypertension (Acute) Essential (primary) hypertension (Chronic) Sensorineural hearing loss (Acute) Hearing loss (Acute) Benign paroxysmal positional vertigo (Acute) Migraine (Chronic) Giant cell arteritis (Acute) Imbalance (Acute) Sensorineural hearing loss of both ears (Acute) Sacroiliac joint dysfunction of left side (Acute) Trochanteric bursitis, left hip (Acute) Asymmetrical sensorineural hearing loss (Acute) Medical History (Updated 07/21/25 @ 05:28 by Dominguez Douglas MD) History of transcatheter aortic valve replacement (TAVR) 03/07/23 Malaise and fatigue History of tobacco use Obesity Depression Cervicalgia Vertigo benign, postural Macular degeneration Polyarthralgia Arthritis, rheumatoid GERD (gastroesophageal reflux disease) Emphysema of lung Heart murmur Back pain CHEMA (obstructive sleep apnea) Hemorrhoids Cervical radiculopathy History of paroxysmal supraventricular tachycardia Claudication IBS (irritable bowel syndrome) Elevated creatine kinase level Hematuria Anemia Bilateral carotid artery stenosis Trochanteric bursitis of left hip Right bundle branch block Hyperlipidemia Cough Surgical History Hx of cholecystectomy Hx of appendectomy History of colonoscopy (12/06/12) History of temporal artery biopsy (~06/2023) Status post insertion of iliac artery stent Family History Mother Asthma Anxiety Depression Hypertension Maternal Aunt Cancer breast ca Father Heart disease Maternal Grandmother Diabetes Maternal Grandfather Diabetes Paternal Grandmother Diabetes Paternal Grandfather Diabetes Son Cancer leukemia Daughter Hypertension Social History Smoking/Tobacco Use Status: Former Tobacco Use Quit Date: 11/27/03 Tobacco: How many years used: 40 Smoking risk assessment performed?: Yes Alcohol Intake: current Alcohol Intake frequency: holidays/special occasions only Drug use: Never Substance use type: does not use Adopted: No Caregiver/Support person: No Foster care: Yes Household members: children Housing: house Number of Children: 3 number of grandchildren: 5 Communication Needs: Hard of Hearing Education Level: college Do you need help understanding health information?: Rarely current occupation: [employer] Pets and animals: Yes (4 Dogs, 2 Cats and 2 Birds) Pets and animals: cat(s), dog(s) and bird(s) Sexually active: No Do you think of yourself as: straight/heterosexual Current gender identity: female What is your relationship status?: How often do you talk on the phone with friends or family?: twice per week How often do you get together with friends or relatives?: once per week Do you belong to any clubs or organized social groups?: yes Panel score (0-1 are the most socially isolated patients): 2 What type of physical activity do you participate in: independent ambulation and bicycling Sammi/Episcopalian: Church Special sammi needs: Yes ([employer]) Seatbelt use: always Helmet use: No Drive intox or ride w/intox driver manager: No Do you feel safe at home: Yes Do you feel safe in your relationship?: Yes Additional Social history: quit smoking 21 years ago Meds Allergies and Home Medications Allergies Allergy/AdvReac Type Severity Reaction Status Date / Time cocoa butter (From Allergy Intermediate Bleeding Verified 07/20/25 22:30 Preparation H) glycerin (From Preparation H) Allergy Intermediate Bleeding Verified 07/20/25 22:30 latex Allergy Intermediate Skin Rash Verified 07/20/25 22:30 mineral oil* (From Allergy Intermediate Bleeding Verified 07/20/25 22:30 Preparation H) petrolatum,white (From Allergy Intermediate Bleeding Verified 07/20/25 22:30 Preparation H) phenylephrine (From Allergy Intermediate Bleeding Verified 07/20/25 22:30 Preparation H) shark liver oil (From Allergy Intermediate Bleeding Verified 07/20/25 22:30 Preparation H) bismuth subsalicylate (From Allergy Mild Irritation/ Verified 07/20/25 22:30 Kaopectate (bismuth soreness subsalicy)) lisinopril AdvReac Intermediate Cough Verified 07/20/25 22:30 Home Medications ?Medication ?Instructions ?Recorded ?Confirmed ?Type aspirin 325 mg tablet 325 mg PO DAILY 03/21/14 07/20/25 History calcium 600 mg (as 2 tab PO DAILY 03/21/14 07/20/25 History carbonate)-vitamin D3 5 mcg (200 unit) tablet carboxymethylcellulose sodium 0.5 2 drp OU BID 03/21/14 07/20/25 History % eye drops (Refresh Tears) cholecalciferol (vitamin D3) 10 2,000 unit PO DAILY 03/21/14 07/20/25 History mcg (400 unit) tablet (Vitamin D3) folic acid 800 mcg tablet 0.8 mg PO DAILY 03/21/14 07/20/25 History multivitamin (Daily Multi-Vitamin 1 tab PO DAILY 03/21/14 07/20/25 History tablet) cetirizine 10 mg capsule (Zyrtec) 10 mg PO DAILY PRN 05/20/20 07/20/25 History ferrous sulfate 325 mg (65 mg 28 mg PO DAILY 05/20/20 07/20/25 History iron) tablet (iron) hydrocortisone 1 % topical cream 1 applic topical BID PRN 05/20/20 07/20/25 History nebulizers 05/20/20 07/20/25 History Fortifeye 1 tab PO DAILY 09/21/20 07/20/25 History albuterol sulfate 1.25 mg/3 mL 1.25 mg (3 mL) inhalation QID PRN 06/19/24 07/20/25 Rx solution for nebulization shortness of breath or wheezing #90 mL loperamide 2 mg capsule (Imodium 2 mg PO Q6H PRN 06/19/24 07/21/25 History A-D) riboflavin (vitamin B2) 400 mg 400 mg PO DAILY 08/12/24 07/20/25 History tablet citalopram 40 mg tablet (Celexa) 20 mg (1/2 x 40 mg) PO DAILY #60 10/18/24 07/20/25 Rx tabs ziprasidone HCl 20 mg capsule 20 mg PO BID #180 caps 11/12/24 07/20/25 Rx (Geodon) losartan 100 mg tablet 100 mg PO DAILY 90 days #90 tabs 01/03/25 07/20/25 Rx rosuvastatin 20 mg tablet 20 mg PO HS #90 tabs 01/28/25 07/20/25 Rx albuterol sulfate 90 mcg/actuation 2 puff inhalation Q4H PRN 01/31/25 07/20/25 Rx aerosol inhaler shortness of breath or wheezing #8.5 grams omeprazole 40 mg capsule,delayed 40 mg PO DAILY #90 caps 02/28/25 07/20/25 Rx release carvedilol 6.25 mg tablet 12.5 mg PO BID 04/09/25 07/20/25 History levothyroxine 50 mcg tablet 50 mcg PO DAILY #30 tabs 04/22/25 07/20/25 Rx nystatin 100,000 unit/gram topical 1 applic topical TID #30 grams 04/30/25 07/20/25 Rx cream amlodipine 10 mg tablet 10 mg PO DAILY #90 tabs 05/02/25 07/20/25 Rx magnesium 200 mg tablet 200 mg PO DAILY 05/23/25 07/20/25 History ezetimibe 10 mg tablet (Zetia) 10 mg PO HS #90 tabs 07/07/25 07/20/25 Rx acetaminophen 500 mg tablet 1,000 mg PO Q6H PRN 07/20/25 07/20/25 History bupropion HCl 150 mg tablet,12 hr 150 mg PO DAILY 07/20/25 07/20/25 History sustained-release fluticasone 250 mcg-salmeterol 50 1 inh inhalation BID 07/20/25 07/20/25 History mcg/dose blistr powdr for inhalation (Advair Diskus) metoprolol succinate 25 mg 25 mg PO DAILY 07/20/25 07/20/25 History tablet,extended release 24 hr Exam Narrative Exam Narrative: General: This is a pleasant woman in no distress HEENT: Normocephalic, atraumatic CV: RRR with soft systolic murmur Resp: CTAB Abd: soft, tender RLQ, guarding no rebound, +NBS MSK: voluntary motion x4 Neuro: awake, alert, no focal deficits Results Labs 07/20/25 22:25 07/20/25 22:25 Labs: Laboratory Results - last 24 hr 07/20/25 07/20/25 22:25 22:35 WBC 13.06 H RBC 4.16 Hgb 13.8 Hct 40.4 MCV 97 H MCH 33.2 H MCHC 34.2 RDW 11.6 L Plt Count 204 MPV 9.7 Immature Gran % 0.5 Neutrophils % 82.1 Lymphocytes % 10.9 Monocytes % 6.0 Eosinophils % 0.3 Basophils % 0.2 Nucleated RBC % 0.0 Absolute Neutrophils 10.72 H Absolute Lymphocytes 1.42 Absolute Monocytes 0.78 Absolute Eosinophils 0.04 Absolute Basophils 0.03 VBG pH 7.36 VBG pCO2 44 VBG pO2 34 VBG HCO3 24 VBG Total CO2 22 L VBG O2 Saturation 69 VBG Base Excess -1 VBG Lactate 0.8 Sodium 140 Potassium 4.0 Chloride 104 Carbon Dioxide 26.3 Anion Gap 9.7 BUN 17 Creatinine 1.3 H Est GFR (CKD-EPI 2020) 42.62 Glucose 137 H Calcium 9.3 Magnesium 1.8 Total Bilirubin 0.5 AST 18 ALT 22 Alkaline Phosphatase 83 Total Protein 7.6 Albumin 3.8 Lipase 35 Urine Color Yellow Urine Clarity Clear Urine pH 6.5 Ur Specific [place] 1.020 Urine Protein 100 H Urine Ketones Negative Urine Blood Trace-intact H Urine Nitrite Negative Urine Bilirubin Negative Urine Urobilinogen 0.2 Ur Leukocyte Esterase Negative Urine RBC 0-2 Urine WBC 0-2 Ur Epithelial Cells Rare Urine Crystals Negative Urine Bacteria Rare Urine Casts Negative Urine Mucus Trace Ur Culture Indicated? No Urine Glucose Negative Last Vital Signs Temp 36.8 C 07/20/25 22:13 Pulse 86 07/20/25 23:31 Resp 19 07/20/25 23:31 BP 148/41 H 07/20/25 23:31 Pulse Ox 93 07/20/25 23:31 Time Spent Time spent with Patient: 40-54 minutes Time was spent: preparing to see the patient(eg.review tests), obtaining and/or reviewing separately otained hiistory, ordering medications,tests, procedures, referring, communicating with other health care transitions manager, indepentently interpreting results, counseling the patient and care coordination
--- NOTE | 2025-07-21 02:28 | W.PC.ACHO ---
Registration Status: REG ER Primary Language: Preferred Language: Welsh ED Information & Data Chief Complaint Nausea/Vomit/Diar 07/20/25 22:13 Chief Complaint Nausea/Vomit/Diar 07/20/25 22:08 Other Complaint Urinary 07/20/25 22:08 Triage Note anuradha in by EMS, c/o n/v, 07/20/25 22:08 RLQ/groin pain since lunch today. painful urination, dry heaving, diarrhea. Previous bladder infection and says this feels similar. 4mg zofran, 1g tylenol by ems. hx aortic valve replacement last year. RBB noted by EMS on 12 lead. Medical / Surgical History (Last Reviewed 05/07/25 @ 13:07 by Delmis Hanley) Anemia Arthritis, rheumatoid Back pain Bilateral carotid artery stenosis Cervical radiculopathy Cervicalgia Claudication Cough Depression Elevated creatine kinase level Emphysema of lung GERD (gastroesophageal reflux disease) Heart murmur Hematuria Hemorrhoids History of paroxysmal supraventricular tachycardia History of tobacco use History of transcatheter aortic valve replacement (TAVR) Hyperlipidemia Hypothyroidism IBS (irritable bowel syndrome) Macular degeneration Malaise and fatigue Obesity CHEMA (obstructive sleep apnea) Polyarthralgia Right bundle branch block Trochanteric bursitis of left hip Vertigo (Last Reviewed 07/20/25 @ 22:11 by Richy Thayer MD) History of colonoscopy (12/06/12) History of temporal artery biopsy (~06/2023) Hx of appendectomy Hx of cholecystectomy Status post insertion of iliac artery stent Most Recent Vital Signs Temperature 36.8 C 07/20/25 22:13 Temperature Source Oral 07/20/25 22:13 Pulse 86 07/20/25 23:31 Pulse 79 07/20/25 23:31 Respiratory Rate 19 07/20/25 23:31 Blood Pressure 148/41 H 07/20/25 23:31 Blood Pressure Mean 81 07/20/25 23:31 Blood Pressure Position Supine 07/20/25 22:13 Pulse Oximetry 93 07/20/25 23:31 Oxygen Delivery Method Room Air 07/20/25 22:13 Oxygen Flow Rate 0 07/20/25 22:08 Pain Level 5 07/20/25 22:13 Allergies cocoa butter (From Preparation H) Allergy (Intermediate, Verified 07/20/25 22:30) Bleeding Per pt. stated she started bleeding glycerin (From Preparation H) Allergy (Intermediate, Verified 07/20/25 22:30) Bleeding Per pt. stated she started bleeding latex Allergy (Intermediate, Verified 07/20/25 22:30) Skin Rash mineral oil* (From Preparation H) Allergy (Intermediate, Verified 07/20/25 22:30) Bleeding Per pt. stated she started bleeding petrolatum,white (From Preparation H) Allergy (Intermediate, Verified 07/20/25 22:30) Bleeding Per pt. stated she started bleeding phenylephrine (From Preparation H) Allergy (Intermediate, Verified 07/20/25 22:30) Bleeding Per pt. stated she started bleeding shark liver oil (From Preparation H) Allergy (Intermediate, Verified 07/20/25 22:30) Bleeding Per pt. stated she started bleeding bismuth subsalicylate (From Kaopectate (bismuth subsalicy)) Allergy (Mild, Verified 07/20/25 22:30) Irritation/soreness Pt. stated caused her to be irritatred and sore lisinopril Adverse Reaction (Intermediate, Verified 07/20/25 22:30) Cough cough Precautions Isolation Standard precaution 07/20/25 22:13 Active Medications Generic Name Dose Route Start Last Admin Trade Name Freq PRN Reason Stop Dose Admin Iohexol 100 ml 07/20/25 23:45 07/20/25 23:45 Omnipaque 350 Mg/Ml 100 Ml Btl IJ 08/19/25 23:59 75 ml DIRECTED GWYN Administration Sodium Chloride 50 ml 07/20/25 23:45 07/20/25 23:45 Normal Saline - Diluent 50 Ml Vial IJ 50 ml DIRECTED GWYN Administration Sodium Chloride 0 ml 07/20/25 23:44 07/20/25 23:45 Normal Saline Flush 10 Ml Syr IVP 10 ml PRN PRN Administration IV IV Catheter Type [Left Peripheral IV Antecubital] IV Catheter Gauge [Left 20 Antecubital] Diet Orders Category Date Time Status npo [Nothing Per Oral] [DIET] Nutrition 07/20/25 22:23 Active Diagnostics 07/21/25 07/20/25 07/20/25 Range/Units 05:35 22:35 22:25 WBC Pending 13.06 H (4.4-10.8) 10^3/uL RBC Pending 4.16 (3.93-5.22) 10^6/uL Hgb Pending 13.8 (11.2-15.7) g/dL Hct Pending 40.4 (36.0-46.0) % MCV Pending 97 H (80-95) fL MCH Pending 33.2 H (27.0-33.0) pg MCHC Pending 34.2 (32.0-36.0) % RDW Pending 11.6 L (11.7-14.6) % Plt Count Pending 204 (130-400) 10^3/uL MPV Pending 9.7 (8.0-11.0) fL Immature Gran % Pending 0.5 % Neutrophils % Pending 82.1 % Lymphocytes % Pending 10.9 % Monocytes % Pending 6.0 % Eosinophils % Pending 0.3 % Basophils % Pending 0.2 % Nucleated RBC % 0.0 (0.0-0.3) % Absolute Neutrophils Pending 10.72 H (1.2-6.7) 10^3/uL Absolute Lymphocytes Pending 1.42 (1.2-3.4) 10^3/uL Absolute Monocytes Pending 0.78 (0.1-0.8) 10^3/uL Absolute Eosinophils Pending 0.04 (0.0-0.7) 10^3/uL Absolute Basophils Pending 0.03 (0.0-0.2) 10^3/uL PT Pending INR Pending VBG pH 7.36 (7.31-7.41) VBG pCO2 44 (41-51) mmHg VBG pO2 34 mmHg VBG HCO3 24 (23-28) mmol/L VBG Total CO2 22 L (24-29) mmol/L VBG O2 Saturation 69 % VBG Base Excess -1 (-2-3) mmol/L VBG Lactate 0.8 (<or=2.0) mmol/L Sodium Pending 140 (136-145) mmol/L Potassium Pending 4.0 (3.5-5.1) mmol/L Chloride Pending 104 (98-107) mmol/L Carbon Dioxide Pending 26.3 (21.0-32.0) mmol/L Anion Gap Pending 9.7 (3-11) mmol/L BUN Pending 17 (7-18) mg/dL Creatinine Pending 1.3 H (0.55-1.02) mg/dL Est GFR (CKD-EPI 2020) Pending 42.62 (mL/min/1.73m2) Glucose Pending 137 H (74-106) mg/dL Calcium Pending 9.3 (8.5-10.1) mg/dL Magnesium 1.8 (1.8-2.4) mg/dL Total Bilirubin Pending 0.5 (0.2-1.0) mg/dL AST Pending 18 (15-37) U/L ALT Pending 22 (14-59) U/L Alkaline Phosphatase Pending 83 (46-116) U/L Total Protein Pending 7.6 (6.4-8.2) g/dL Albumin Pending 3.8 (3.4-5.0) g/dL Lipase 35 (<78) U/L Urine Color Yellow (Yellow) Urine Clarity Clear (Clear) Urine pH 6.5 (5-8) Ur Specific [place] 1.020 (1.005-1.025) Urine Protein 100 H (Neg-Trace) mg/dL Urine Ketones Negative (Negative) mg/dL Urine Blood Trace-intact H (Negative) Urine Nitrite Negative (Negative) Urine Bilirubin Negative (Negative) Urine Urobilinogen 0.2 (Up to 0.2) mg/dL Ur Leukocyte Esterase Negative (Negative) Urine RBC 0-2 (0-2) HPF Urine WBC 0-2 (0-5) HPF Ur Epithelial Cells Rare (Negative) HPF Urine Crystals Negative (Negative) HPF Urine Bacteria Rare (Negative) HPF Urine Casts Negative (Negative) LPF Urine Mucus Trace (Negative) Ur Culture Indicated? No Urine Glucose Negative (Negative) mg/dL Intake and Output - 24 Hour Total 07/20/25 21:59 thru 07/21/25 02:19 Intake Total 1150 Balance 1150 Weight 71.668 kg Intake: IV 1150 Other: Stool Size Moderate Stool Characteristics Soft Emesis Description Retching Falls Risk Assessment History of Falls No History 07/20/25 22:13 Contributing Factors No Factors 07/20/25 22:13 Ambulatory Aids Independent 07/20/25 22:13 Tubes/Lines None 07/20/25 22:13 Gait Evaluation No gait disturbance 07/20/25 22:13 Cognition No cognitive impairment 07/20/25 22:13 Fall Total Score 0 07/20/25 22:13 Level of Risk Standard/Low Risk 07/20/25 22:13 v v v v v v v v v Sending and/or Receiving Nurses: Please use comment section below to note any information pertinent to the patient hand-off not included above. Information / Comments: MS paged [phone]. Called for report 0215. Pt arrived on floor 0225. Report received from: Yue Combs RN, ED
[2025-07-21] MEDS: MORPHine 2 MG/ML SYR 1 MG IVP (03:48)
[2025-07-21] MEDS: Normal Saline 1,000 ML 100 ML IV (06:09)
[2025-07-21 06:50] LABS: Abs Immature Grans 0.08 10^3/uL (0.0-0.06); HCT 37.5 % (36.0-46.0); HGB 12.8 g/dL (11.2-15.7); Immature Grans % 0.6 %; MCH 33.2 pg (27.0-33.0); MCHC 34.1 % (32.0-36.0); MCV 97 fL (80-95); MPV 10.3 fL (8.0-11.0); Platelet Count 211 10^3/uL (130-400); RBC 3.86 10^6/uL (3.93-5.22); RDW 11.6 % (11.7-14.6); RDW-SD 41.5 fL; WBC 14.29 10^3/uL (4.4-10.8)
[2025-07-21 07:03] LABS: INR 1.0 (0.9-1.1); Prothrombin Time 10.3 sec (9.1-11.1)
--- NOTE | 2025-07-21 07:10 | SCONE_ITS ---
Date of service: 07/21/25 Time of Service: 08:30 Assessment and Plan Assessment and plan (1) RLQ abdominal pain: Status: Acute Assessment and plan: caused by cecal change noted on CT scan. etiology of the changes is uncertain but the differential includes a cecal diverticulitis or a focal colitis or inflamed lesion. The area is focal and so ischemic colitis and IBD are less likely though possible. will manage as an infectious/inflammatory diverticulitis and plan elective endoscopy once the acute process has improved. She reports endoscopy 2 years ago and tracking down the report of that colonoscopy will be helpful. Continue NPO except ice chips, IV antibiotics, and fluids. If no improvement consider switching to zosyn. Will follow. (2) Cecal diverticulitis: Status: Acute Assessment and plan: presumed diagnosis of cecal change on CT. tracking down old colonoscopy reports. (3) Peripheral arterial disease: Status: Acute Assessment and plan: At risk for stroke. she is s/p carotid endarterectomy on R side in 2019 or 2019. Not on anticoagulation. (4) History of transcatheter aortic valve replacement (TAVR): Assessment and plan: not a mechanical valve, she is not on anticoagulation. (5) Bilateral carotid artery stenosis: History of Present Illness History of Present Illness Chief Complaint: cecum inflammation or mass Narrative: 74yo F admitted with RLQ and R lower middle abd pain. CT in er showed a possible cecal mass vs cecal dverticulum with inflammation nearby. The diverticulum itself was not inflamed. The patient notes she developed Abd pain siddenly ysterday and it got worse and worse. the pain was severe and not relieved by stools or resting. No clear relation to food but she felt bloated and appetite was poor. She has never had this pain before. says she was in her usual state of health when it started. She did not have any warning symptoms or change in bowel habits prior to this starting. She feels persistent lower abdominal and pelvic pain on the right side. Feels worse when she walks or presses the area or moves around. She notes she had colonoscopy two years ago and recalls it was overall unremarkable. She notes she has IBS and alternates diarrhea and constipation frequently. no blood in her stool ever and she has not had any change. since admission she has been on ice chips only and feels about the same. Review of Systems All systems reviewed & are unremarkable except as noted in HPI and below PFSH All Active Problems (Updated 07/21/25 @ 10:31 by Annamaria Gee MD) Peripheral arterial disease (Acute) Cecal diverticulitis (Acute) RLQ abdominal pain (Acute) Hypothyroidism (Chronic) Chronic GERD (Chronic) Mass of cecum (Acute) Abnormal CT scan, liver (Acute) Colitis (Acute) Viral URI (Acute) Laceration of flexor tendon of right [place] (Acute) Pes anserinus bursitis of left knee (Acute) Internal derangement of left knee (Acute ~09/2024) Left knee DJD (Chronic) CKD (chronic kidney disease) stage 3, GFR 30-59 ml/min (Acute) Knee pain, left (Acute) Plantar wart of left foot (Acute) Parotiditis (Acute) Hypertension (Chronic) Interstitial lung disease (Chronic) Bronchiectasis (Acute) Asthma (Chronic) Abnormal CT scan, chest (Acute) Diverticulosis (Acute 12/06/12) Presence of prosthetic heart valve (Acute) Atherosclerosis (Acute) Pain in right shoulder (Acute) Pain, joint, shoulder, left (Acute) Dysphagia (Acute) Paresthesia (Acute) Disorder of sacrum (Acute) Pain in thoracic spine (Acute) Joint pain (Acute) Disorder of kidney and ureter (Acute) Chronic obstructive lung disease (Chronic) Peripheral vascular disease (Chronic) Carotid artery stenosis (Acute) Aortic stenosis (Chronic) HX TAVR 03/07/23 Pulmonary hypertension (Acute) Essential (primary) hypertension (Chronic) Sensorineural hearing loss (Acute) Hearing loss (Acute) Benign paroxysmal positional vertigo (Acute) Migraine (Chronic) Giant cell arteritis (Acute) Imbalance (Acute) Sensorineural hearing loss of both ears (Acute) Sacroiliac joint dysfunction of left side (Acute) Trochanteric bursitis, left hip (Acute) Asymmetrical sensorineural hearing loss (Acute) Medical History History of transcatheter aortic valve replacement (TAVR) 03/07/23 Malaise and fatigue History of tobacco use Obesity Depression Cervicalgia Vertigo benign, postural Macular degeneration Polyarthralgia Arthritis, rheumatoid GERD (gastroesophageal reflux disease) Emphysema of lung Heart murmur Back pain CHEMA (obstructive sleep apnea) Hemorrhoids Cervical radiculopathy History of paroxysmal supraventricular tachycardia Claudication IBS (irritable bowel syndrome) Elevated creatine kinase level Hematuria Anemia Bilateral carotid artery stenosis Trochanteric bursitis of left hip Right bundle branch block Hyperlipidemia Cough Surgical History Hx of cholecystectomy Hx of appendectomy History of colonoscopy (12/06/12) History of temporal artery biopsy (~06/2023) Status post insertion of iliac artery stent Family History Mother Asthma Anxiety Depression Hypertension Maternal Aunt Cancer breast ca Father Heart disease Maternal Grandmother Diabetes Maternal Grandfather Diabetes Paternal Grandmother Diabetes Paternal Grandfather Diabetes Son Cancer leukemia Daughter Hypertension Social History Smoking/Tobacco Use Status: Former Tobacco Use Quit Date: 11/27/03 Tobacco: How many years used: 40 Smoking risk assessment performed?: Yes Alcohol Intake: current Alcohol Intake frequency: holidays/special occasions only Drug use: Never Substance use type: does not use Adopted: No Caregiver/Support person: No Foster care: Yes Household members: children Housing: house Number of Children: 3 number of grandchildren: 5 Communication Needs: Hard of Hearing Education Level: college Do you need help understanding health information?: Rarely 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 Pets and animals: Yes (4 Dogs, 2 Cats and 2 Birds) Pets and animals: cat(s), dog(s) and bird(s) Sexually active: No Do you think of yourself as: straight/heterosexual Current gender identity: female What is your relationship status?: How often do you talk on the phone with friends or family?: twice per week How often do you get together with friends or relatives?: once per week Do you belong to any clubs or organized social groups?: yes Panel score (0-1 are the most socially isolated patients): 2 What type of physical activity do you participate in: independent ambulation and bicycling Sammi/Hinduism: [employer] Special sammi needs: Yes (Last Rights) Seatbelt use: always Helmet use: No Drive intox or ride w/intox wheelchair van driver: No Do you feel safe at home: Yes Do you feel safe in your relationship?: Yes Additional Social history: quit smoking 21 years ago Exam Narrative Exam Narrative: awake, NAD eomi, MMM midline trachea, neck is symmetric PULM: normal resp effort, equal chest rise with respiration, no wheezing audible CARDIAC: normal PMI, no jvd, regular rate, normal perfusion abdomen is soft and tender to palp centrally in the lower abdomen and RLQ. There is no peritonitis. extremities are without deformity, normal movement of all four extremities speech is clear and coherent mood and affect are congruent, no focal neurological deficits skin without rash Results Last Vital Signs Temp 98.6 F 07/21/25 02:38 Pulse 98 H 07/21/25 02:38 Resp 24 07/21/25 02:38 BP 178/74 H 07/21/25 02:38 Pulse Ox 92 07/21/25 02:38 Labs 07/21/25 06:06 07/21/25 06:06 Labs: Laboratory Results - last 24 hr 07/20/25 07/20/25 07/21/25 22:25 22:35 06:06 WBC 13.06 H 14.29 H RBC 4.16 3.86 L Hgb 13.8 12.8 Hct 40.4 37.5 MCV 97 H 97 H MCH 33.2 H 33.2 H MCHC 34.2 34.1 RDW 11.6 L 11.6 L Plt Count 204 211 MPV 9.7 10.3 Immature Gran % 0.5 0.6 Neutrophils % 82.1 81.7 Lymphocytes % 10.9 10.4 Monocytes % 6.0 7.0 Eosinophils % 0.3 0.0 Basophils % 0.2 0.3 Nucleated RBC % 0.0 0.0 Absolute Neutrophils 10.72 H 11.67 H Absolute Lymphocytes 1.42 1.49 Absolute Monocytes 0.78 1.00 H Absolute Eosinophils 0.04 0.00 Absolute Basophils 0.03 0.04 PT 10.3 INR 1.0 VBG pH 7.36 VBG pCO2 44 VBG pO2 34 VBG HCO3 24 VBG Total CO2 22 L VBG O2 Saturation 69 VBG Base Excess -1 VBG Lactate 0.8 Sodium 140 Potassium 4.0 Chloride 104 Carbon Dioxide 26.3 Anion Gap 9.7 BUN 17 Creatinine 1.3 H Est GFR (CKD-EPI 2020) 42.62 Glucose 137 H Calcium 9.3 Magnesium 1.8 Total Bilirubin 0.5 AST 18 ALT 22 Alkaline Phosphatase 83 Total Protein 7.6 Albumin 3.8 Lipase 35 Urine Color Yellow Urine Clarity Clear Urine pH 6.5 Ur Specific [place] 1.020 Urine Protein 100 H Urine Ketones Negative Urine Blood Trace-intact H Urine Nitrite Negative Urine Bilirubin Negative Urine Urobilinogen 0.2 Ur Leukocyte Esterase Negative Urine RBC 0-2 Urine WBC 0-2 Ur Epithelial Cells Rare Urine Crystals Negative Urine Bacteria Rare Urine Casts Negative Urine Mucus Trace Ur Culture Indicated? No Urine Glucose Negative Imaging Abdomen CT scan report/results: report reviewed
[2025-07-21 07:11] LABS: ALT 20 U/L (14-59); AST 17 U/L (15-37); Albumin 3.5 g/dL (3.4-5.0); Alkaline Phosphatase 72 U/L (46-116); Anion Gap 10.3 mmol/L (3-11); BUN 14 mg/dL (7-18); Bilirubin, Total 0.5 mg/dL (0.2-1.0); CO2 25.7 mmol/L (21.0-32.0); Calcium 9.1 mg/dL (8.5-10.1); Chloride 105 mmol/L (98-107); Estimated GFR 42.62 (mL/min/1.73m2); Glucose 149 mg/dL (74-106); Potassium 3.8 mmol/L (3.5-5.1); Sodium 141 mmol/L (136-145); Total Protein 7.2 g/dL (6.4-8.2)
[2025-07-21] MEDS: Acetaminophen 500 MG TAB 1000 MG PO ×3 (08:01→23:30)
[2025-07-21] MEDS: Carvedilol 6.25 MG TAB 12.5 MG PO ×2 (08:01→19:55)
[2025-07-21] MEDS: Losartan 50 MG TAB 100 MG PO (08:02)
[2025-07-21] MEDS: Omeprazole 20 MG CAPCR 40 MG PO (08:02)
[2025-07-21] MEDS: Normal Saline Flush 10 ML SYR IVP ×3 (08:03→18:02)
--- NOTE | 2025-07-21 09:11 | PDOC.CMIN ---
Date of service: 07/21/25 Time of Service: 12:52 Care Management Initial Assmt Initial Assessment Reason for Hospitalization: colitis Functional Status/Living Situation Patient Presentation: Lindsey, who prefers to be called Kelly, was lying in bed and awake, visiting with her friend Clarice at the time of the CM visit. Kelly presented to the Emergency Department with lower abdominal pain, primarily on the right side. Per report, a surgical consult has been placed. Kelly shares that she is hopeful the surgical consult can offer her insight and hopefully aid in decreasing her pain. Kelly was pleasant and engaged appropriately in conversation. She reported residing in her home in [facility] with her daughter and son-in-law. 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 Kelly stated that she is independent at baseline, including driving, and denied any current involvement with community service organizations. CM will continue to follow. Town of Residence: [facility] Resides with: Child (Her daughter and son-in-law. In Kelly's home. ) Significant Other/Family: Local Natural Supports: Her family and friends Employment Status: Employed (provides respite care in her home. 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 ) Instrumental Activities of Daily Living (ADLs): Independent Activities/Hobbies/SocialSupport: enjoys spending time with her friends. Medications Medication Management: No Issues/Barriers identified (Gets her medications mailed to her home) Advance Directives Advance Directives: Do you have an Advance Directive: Y 07/04/25, 15:44 AD On File at [facility]: Y 07/04/25, 15:44 Date Asked AD Date Reviewed 07/21/25 Today, 02:17 COLST On File at [facility] No 07/20/25, 23:09 COLST Date Scanned Code Status Resuscitation Status Full Code Portal Pt does not currently have a portal and education provided: Yes Insurance Coverage/Financial Issues [facility] [id number] Care Team Visit Care Team Role Provider Type Rodolfo Mancera MD MD [facility] STAFF PHYSICIAN Vanita Churchill APRN Primary Care Provider NURSE PRACTITIONER Annamaria Gee MD Other Providers [facility] STAFF PHYSICIAN iRchy Thayer MD Emergency Provider [facility] STAFF PHYSICIAN Dominguez Douglas MD Admit Provider [facility] STAFF PHYSICIAN Attending Provider Discharge Potential Discharge Needs: PCP F/U Appt and Surgical F/U Appt Anticipated Barriers to Discharge: Medical Status Patient/Family Education Needs: Review discharge instructions, discuss Ask Me Three Transportation: Private vehicle Plan: Anticipate Kelly will be discharged home with a resumption of outpatient OT, once medically ready. She should follow up with community providers, possibly surgical team and continue per her plan of care. She will be transported home via private vehicle. CM will continue to follow. Social Determinants of Health Screening Social Determinants of health last assessed in clinic: 07/21/25 Will the Patient Participate in the Screening?: Yes Do you worry about having a steady place to live?: no Problems where you live: no known problems In the past 12 months, have you had to go without electric, gas, oil or water in your home?: no 1. Within the past 12 months, we worried whether our food would run out before we got money to buy more.: Never true 2. Within the past 12 months, the food we bought just didn't last and we didn't have money to get more.: Never true Has lack of transportation kept you from medical appointments or from doing things needed for daily living?: no Has anyone in your life made you feel unsafe or unsupported?: no How hard is it for you to pay for the very basics like food, housing, medical care, and heating? Would you say it is:: Not hard at all Do you want help finding or keeping work or a job?: I do not need or want help If for any reason you need help with day-to-day activities such as bathing, preparing meals, shopping, managing finances, etc., do you get the help you need?: I don?t need any help How often do you feel lonely or isolated from those around you?: Never Do you speak a language other than [place] at home?: No Does the patient want assistance with any of the above?: No PFSH All Active Problems (Updated 07/21/25 @ 10:31 by Annamaria Gee MD) Peripheral arterial disease (Acute) Cecal diverticulitis (Acute) RLQ abdominal pain (Acute) Hypothyroidism (Chronic) Chronic GERD (Chronic) Mass of cecum (Acute) Abnormal CT scan, liver (Acute) Colitis (Acute) Viral URI (Acute) Laceration of flexor tendon of right hand [place] (Acute) Pes anserinus bursitis of left knee (Acute) Internal derangement of left knee (Acute ~09/2024) Left knee DJD (Chronic) CKD (chronic kidney disease) stage 3, GFR 30-59 ml/min (Acute) Knee pain, left (Acute) Plantar wart of left foot (Acute) Parotiditis (Acute) Hypertension (Chronic) Interstitial lung disease (Chronic) Bronchiectasis (Acute) Asthma (Chronic) Abnormal CT scan, chest (Acute) Diverticulosis (Acute 12/06/12) Presence of prosthetic heart valve (Acute) Atherosclerosis (Acute) Pain in right shoulder (Acute) Pain, joint, shoulder, left (Acute) Dysphagia (Acute) Paresthesia (Acute) Disorder of sacrum (Acute) Pain in thoracic spine (Acute) Joint pain (Acute) Disorder of kidney and ureter (Acute) Chronic obstructive lung disease (Chronic) Peripheral vascular disease (Chronic) Carotid artery stenosis (Acute) Aortic stenosis (Chronic) HX TAVR 03/07/23 Pulmonary hypertension (Acute) Essential (primary) hypertension (Chronic) Sensorineural hearing loss (Acute) Hearing loss (Acute) Benign paroxysmal positional vertigo (Acute) Migraine (Chronic) Giant cell arteritis (Acute) Imbalance (Acute) Sensorineural hearing loss of both ears (Acute) Sacroiliac joint dysfunction of left side (Acute) Trochanteric bursitis, left hip (Acute) Asymmetrical sensorineural hearing loss (Acute) Medical History History of transcatheter aortic valve replacement (TAVR) 03/07/23 Malaise and fatigue History of tobacco use Obesity Depression Cervicalgia Vertigo benign, postural Macular degeneration Polyarthralgia Arthritis, rheumatoid GERD (gastroesophageal reflux disease) Emphysema of lung Heart murmur Back pain CHEMA (obstructive sleep apnea) Hemorrhoids Cervical radiculopathy History of paroxysmal supraventricular tachycardia Claudication IBS (irritable bowel syndrome) Elevated creatine kinase level Hematuria Anemia Bilateral carotid artery stenosis Trochanteric bursitis of left hip Right bundle branch block Hyperlipidemia Cough Surgical History Hx of cholecystectomy Hx of appendectomy History of colonoscopy (12/06/12) History of temporal artery biopsy (~06/2023) Status post insertion of iliac artery stent Family History Mother Asthma Anxiety Depression Hypertension Maternal Aunt Cancer breast ca Father Heart disease Maternal Grandmother Diabetes Maternal Grandfather Diabetes Paternal Grandmother Diabetes Paternal Grandfather Diabetes Son Cancer leukemia Daughter Hypertension Social History Smoking/Tobacco Use Status: Former Tobacco Use Quit Date: 11/27/03 Tobacco: How many years used: 40 Smoking risk assessment performed?: Yes Alcohol Intake: current Alcohol Intake frequency: holidays/special occasions only Drug use: Never Substance use type: does not use Adopted: No Caregiver/Support person: No Foster care: Yes Household members: children Housing: house Number of Children: 3 number of grandchildren: 5 Communication Needs: Hard of Hearing Education Level: college Do you need help understanding health information?: Rarely 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 Pets and animals: Yes (4 Dogs, 2 Cats and 2 Birds) Pets and animals: cat(s), dog(s) and bird(s) Sexually active: No Do you think of yourself as: straight/heterosexual Current gender identity: female What is your relationship status?: How often do you talk on the phone with friends or family?: twice per week How often do you get together with friends or relatives?: once per week Do you belong to any clubs or organized social groups?: yes Panel score (0-1 are the most socially isolated patients): 2 What type of physical activity do you participate in: independent ambulation and bicycling Sammi/Holiness: Tenriism Special sammi needs: Yes (Last Rights) Seatbelt use: always Helmet use: No Drive intox or ride w/intox water truck driver: No Do you feel safe at home: Yes Do you feel safe in your relationship?: Yes Additional Social history: quit smoking 21 years ago Readmission Within the Past 30 Days Yes or No: No
[2025-07-21] MEDS: Normal Saline 1,000 ML 75 ML IV (17:14)
[2025-07-21] MEDS: Rosuvastatin 20 MG TAB PO (19:55)
[2025-07-22] VITALS (7 sets, daily range): BP systolic 117–147; BP diastolic 48–68; PULSE 73–87; RESP 16–20; TEMP 36.7–37.4; O2SAT 92–95
[2025-07-22] MEDS: metroNIDAZOLE 500 MG/100 ML BAG 100 MG IVPB ×3 (02:10→17:48)
[2025-07-22] MEDS: Levothyroxine 50 MCG TAB PO (05:40)
[2025-07-22 06:21] LABS: Abs Immature Grans 0.07 10^3/uL (0.0-0.06); HCT 33.2 % (36.0-46.0); HGB 11.2 g/dL (11.2-15.7); Immature Grans % 0.6 %; MCH 33.4 pg (27.0-33.0); MCHC 33.7 % (32.0-36.0); MCV 99 fL (80-95); MPV 10.0 fL (8.0-11.0); Platelet Count 153 10^3/uL (130-400); RBC 3.35 10^6/uL (3.93-5.22); RDW 11.9 % (11.7-14.6); RDW-SD 43.2 fL; WBC 11.27 10^3/uL (4.4-10.8)
[2025-07-22 06:43] LABS: ALT 14 U/L (14-59); AST 13 U/L (15-37); Albumin 2.8 g/dL (3.4-5.0); Alkaline Phosphatase 64 U/L (46-116); Anion Gap 9.3 mmol/L (3-11); BUN 14 mg/dL (7-18); Bilirubin, Total 0.6 mg/dL (0.2-1.0); CO2 25.7 mmol/L (21.0-32.0); Calcium 8.5 mg/dL (8.5-10.1); Chloride 105 mmol/L (98-107); Estimated GFR 42.62 (mL/min/1.73m2); Glucose 100 mg/dL (74-106); Potassium 3.8 mmol/L (3.5-5.1); Sodium 140 mmol/L (136-145); Total Protein 6.5 g/dL (6.4-8.2)
[2025-07-22] MEDS: Normal Saline 1,000 ML 75 ML IV ×2 (07:38→22:45)
[2025-07-22] MEDS: Normal Saline Flush 10 ML SYR IVP ×3 (07:38→20:15)
[2025-07-22] MEDS: Losartan 50 MG TAB 100 MG PO (07:39)
[2025-07-22] MEDS: buPROPion-XL 150 MG TABCR PO (07:39)
[2025-07-22] MEDS: Omeprazole 20 MG CAPCR 40 MG PO (07:39)
[2025-07-22] MEDS: Carvedilol 6.25 MG TAB 12.5 MG PO ×2 (07:39→20:14)
--- NOTE | 2025-07-22 09:54 | CMPROGNOTE_ITS ---
Date of service: 07/22/25 Time of Service: 12:55 Care Management Progress Note Progress Note Text Progress Note Text: CM met with Kelly while she was sitting up in bed and visiting with her friend, Becki. Kelly had recently received Tylenol for pain, which she rated as 4/10. She reports feeling improved compared to yesterday. Surgical consult done. Kelly remains NPO except for ice chips, IV antibiotics and fluids. Per report, an elective endoscopy may be planned once the acute process has improved. Kelly shared that her friend, Clarice, will be staying with her at home to assist during her recovery and has been with her in the home for about a month. CM will continue to follow and assist with Kelly's discharge needs. Discharge Potential Discharge Needs: PCP F/U Appt and Surgical F/U Appt Anticipated Barriers to Discharge: Medical Status Patient/Family Education Needs: Review discharge instructions, discuss Ask Me Three Transportation: Private vehicle Plan: Anticipate Kelly will be discharged home with a resumption of outpatient OT, once medically ready. She should follow up with community providers, possibly surgical team and continue per her plan of care. She will be transported home via private vehicle. CM will continue to follow. Social Determinants of Health Screening Social Determinants of health last assessed in clinic: 07/22/25 Will the Patient Participate in the Screening?: Yes Do you worry about having a steady place to live?: no Problems where you live: no known problems In the past 12 months, have you had to go without electric, gas, oil or water in your home?: no 1. Within the past 12 months, we worried whether our food would run out before we got money to buy more.: Never true 2. Within the past 12 months, the food we bought just didn't last and we didn't have money to get more.: Never true Has lack of transportation kept you from medical appointments or from doing things needed for daily living?: no Has anyone in your life made you feel unsafe or unsupported?: no How hard is it for you to pay for the very basics like food, housing, medical care, and heating? Would you say it is:: Not hard at all Do you want help finding or keeping work or a job?: I do not need or want help If for any reason you need help with day-to-day activities such as bathing, preparing meals, shopping, managing finances, etc., do you get the help you need?: I don?t need any help How often do you feel lonely or isolated from those around you?: Never Do you speak a language other than Lithuanian at home?: No Does the patient want assistance with any of the above?: No
[2025-07-22] MEDS: Acetaminophen 500 MG TAB 1000 MG PO (12:06)
--- NOTE | 2025-07-22 13:09 | W.PM.PROGNOT ---
Date of Service Date of service: 07/22/25 Time of Service: 13:09 Assessment and Plan Assessment and plan (1) RLQ abdominal pain: Status: Acute Assessment and plan: Discussed with her that she has pain medications ordered for PRN. Notified her nurse that she was requesting something for the pain. Encouraged continued activity OOB as tolerated. Putting this altogether, the symptoms do seem most consistent with some mild diverticulitis. The white blood cell count is improved with the addition of antibiotics and bowel rest. At this point, I think we can advance to full liquids and see how she tolerates that. (2) Cecal diverticulitis: Status: Acute Assessment and plan: presumed diagnosis of cecal change on CT. tracking down old colonoscopy reports. (3) Peripheral arterial disease: Status: Acute Assessment and plan: At risk for stroke. she is s/p carotid endarterectomy on R side in 2018 or 2019. Not on anticoagulation. Subjective Subjective Interval history since last seen: Arrive with Kelly resting comfortably in bed. She reports she was up and she showered this morning however had to return to bed due to abdominal pain. She denies any nausea or vomiting. She is passing flatus, but has not had a BM. She also seems to be doing okay this afternoon. Although she does still complain of abdominal pain, she says it is better compared to yesterday. She is passing flatus, but no bowel movement. Exam Const General: cooperative, healthy appearing and comfortable Orientation: alert and oriented x3 Resp Effort & Inspection: normal respiratory effort, no audible wheezes and no cough GI Palpation: soft, no guarding and tender in the RLQ Other: Abdomen remains soft, nondistended. She is tender a little bit, nonfocal. She does have bowel sounds Objective Last Vital Signs Temp 36.8 C 07/22/25 10:34 Pulse 87 07/22/25 10:34 Resp 16 07/22/25 10:34 BP 147/59 H 07/22/25 10:34 Pulse Ox 93 07/22/25 10:34 Laboratory Results - last 24 hr 07/22/25 06:05 WBC 11.27 H RBC 3.35 L Hgb 11.2 Hct 33.2 L MCV 99 H MCH 33.4 H MCHC 33.7 RDW 11.9 Plt Count 153 MPV 10.0 Immature Gran % 0.6 Neutrophils % 70.5 Lymphocytes % 18.5 Monocytes % 8.7 Eosinophils % 1.6 Basophils % 0.1 Nucleated RBC % 0.0 Absolute Neutrophils 7.95 H Absolute Lymphocytes 2.08 Absolute Monocytes 0.98 H Absolute Eosinophils 0.18 Absolute Basophils 0.01 Sodium 140 Potassium 3.8 Chloride 105 Carbon Dioxide 25.7 Anion Gap 9.3 BUN 14 Creatinine 1.3 H Est GFR (CKD-EPI 2020) 42.62 Glucose 100 Calcium 8.5 Total Bilirubin 0.6 AST 13 L ALT 14 Alkaline Phosphatase 64 Total Protein 6.5 Albumin 2.8 L Time Spent with Patient Time Spent with Patient: <25 minutes Time was spent: preparing to see the patient(eg.review tests) and obtaining and/or reviewing separately [facility] hidaleory
--- NOTE | 2025-07-22 15:04 | CHAPLAIN ---
Kelly was resting in bed when I stopped in. She had a friend visiting with her. Kelly explained that she has a growth were her appendix was and they are trying to figure out what to do about and it's causing her discomfort. She also has IBS which she said makes the situation more painful. She has eaten since the day before yesterday. Kelly is a member of the [employer] in [facility], although she hasn't been able to attend lately, and may be interested in checking out churches in [place]. I explained my role and offered support.
--- NOTE | 2025-07-22 15:06 | PGE_ITS ---
Date of Service Date of service: 07/22/25 Time of Service: 15:39 Assessment and Plan Assessment and plan (1) Mass of cecum: Status: Acute Assessment and plan: In the setting of chronic IBS picture. Abdominal pain likely back to at least April given clinic record No gallbladder, no appendix CT showing cecal mass concerning for colitis vs diverticular disease vs malignancy, appreciate general surgery input, continue with antibiotics, NPO with IV fluids PRN opioid pain management. EGD/colonoscopy results (04/15/2024) and GI consult from Dr. Maxwell at [facility] reviewed. Biospies negative for colitis. She did have 6mm angioectatic lesion noted in cecum then that was felt to be insignificant. Notes printed, will review with surgery. (2) Abnormal CT scan, liver: Status: Acute Assessment and plan: July 20 CT abdomen/pelvis showing inferior right lobe 2.6 hypodensity Outpatient followup (3) Interstitial lung disease: Status: Chronic Assessment and plan: Based in imaging per pulmonology notes. PFTs c/w asthma. Continue ICS/LABA, PRN duonebs (4) Essential (primary) hypertension: Status: Chronic Assessment and plan: continue carvedilol, losartan. Metoprolol was also on home list, appears to be an error. (5) Depression: Assessment and plan: continue buproprion, citalopram, and ziprazodone. Changing citalopram to escitalopram preferred with multiple QTc prolonging agents. (6) Peripheral vascular disease: Status: Chronic Assessment and plan: continue statin, ezetimibe. ASA being held, resume at low dose as surgical procedure is not likely. (7) Chronic GERD: Status: Chronic Assessment and plan: continue PPI Subjective Subjective Patient reports: no new complaints and voiding w/o difficulty; denies diarrhea, vomiting, shortness of breath or fever Interval history since last seen: Still has abdominal pain, feels in lower mid abdomen currently. No epigastric pain, but she is burping a lot. No BM this am, but she is passing gas. Feels a little better after burping or gas. Exam Narrative Exam Narrative: General: This is a pleasant woman in no acute distress. alert and oriented x 3 HEENT: MMM, no icterus CV: RRR with soft systolic murmur Resp: dry basilcar rales, otherwise clear Abd: soft, +NBS, tender diffusely, no guarding or rebound. Neuro: awake, alert, no focal deficits Objective Last Vital Signs Temp 36.8 C 07/22/25 10:34 Pulse 87 07/22/25 10:34 Resp 16 07/22/25 10:34 BP 147/59 H 07/22/25 10:34 Pulse Ox 93 07/22/25 10:34 Laboratory Results - last 24 hr 07/22/25 06:05 WBC 11.27 H RBC 3.35 L Hgb 11.2 Hct 33.2 L MCV 99 H MCH 33.4 H MCHC 33.7 RDW 11.9 Plt Count 153 MPV 10.0 Immature Gran % 0.6 Neutrophils % 70.5 Lymphocytes % 18.5 Monocytes % 8.7 Eosinophils % 1.6 Basophils % 0.1 Nucleated RBC % 0.0 Absolute Neutrophils 7.95 H Absolute Lymphocytes 2.08 Absolute Monocytes 0.98 H Absolute Eosinophils 0.18 Absolute Basophils 0.01 Sodium 140 Potassium 3.8 Chloride 105 Carbon Dioxide 25.7 Anion Gap 9.3 BUN 14 Creatinine 1.3 H Est GFR (CKD-EPI 2020) 42.62 Glucose 100 Calcium 8.5 Total Bilirubin 0.6 AST 13 L ALT 14 Alkaline Phosphatase 64 Total Protein 6.5 Albumin 2.8 L Time Spent with Patient Time Spent with Patient: 35-49 minutes Time was spent: preparing to see the patient(eg.review tests), obtaining and/or reviewing separately otained hiistory, ordering medications,tests, procedures, referring, communicating with other health child adolescent care, indepentently interpreting results, counseling the patient and care coordination
[2025-07-22] MEDS: Refresh PLUS Eye Drops 0.4ml OU (20:13)
[2025-07-22] MEDS: Ziprasidone 20 MG CAP PO (20:14)
[2025-07-22] MEDS: Ezetimibe 10 MG TAB PO (20:14)
[2025-07-22] MEDS: Rosuvastatin 20 MG TAB PO (20:14)
[2025-07-22] MEDS: Budesonide/Formoterol 80/4.5 6.9 GM 60 PUFF INH IH (20:32)
[2025-07-22] MEDS: cefTRIAXone 1 GM/50 ML BAG IVPB (23:41)
[2025-07-23] MEDS: metroNIDAZOLE 500 MG/100 ML BAG 100 MG IVPB ×3 (02:13→18:47)
[2025-07-23 03:55] VITALS: BP 117/44; PULSE 86; RESP 18; TEMP 37.6; O2SAT 94
[2025-07-23] MEDS: Levothyroxine 50 MCG TAB PO (05:40)
[2025-07-23 06:51] LABS: Abs Immature Grans 0.05 10^3/uL (0.0-0.06); HCT 33.0 % (36.0-46.0); HGB 11.4 g/dL (11.2-15.7); Immature Grans % 0.4 %; MCH 34.1 pg (27.0-33.0); MCHC 34.5 % (32.0-36.0); MCV 99 fL (80-95); MPV 10.6 fL (8.0-11.0); Platelet Count 163 10^3/uL (130-400); RBC 3.34 10^6/uL (3.93-5.22); RDW 11.7 % (11.7-14.6); RDW-SD 42.5 fL; WBC 11.82 10^3/uL (4.4-10.8)
[2025-07-23 07:13] VITALS: BP 140/78; PULSE 91; RESP 20; TEMP 38; O2SAT 92
[2025-07-23 07:25] LABS: ALT 11 U/L (14-59); AST 12 U/L (15-37); Albumin 2.8 g/dL (3.4-5.0); Alkaline Phosphatase 70 U/L (46-116); Anion Gap 11.7 mmol/L (3-11); BUN 10 mg/dL (7-18); Bilirubin, Total 0.5 mg/dL (0.2-1.0); CO2 23.3 mmol/L (21.0-32.0); Calcium 8.5 mg/dL (8.5-10.1); Chloride 106 mmol/L (98-107); Estimated GFR 52.08 (mL/min/1.73m2); Glucose 84 mg/dL (74-106); Potassium 3.7 mmol/L (3.5-5.1); Sodium 141 mmol/L (136-145); Total Protein 6.5 g/dL (6.4-8.2)
[2025-07-23] MEDS: Omeprazole 20 MG CAPCR 40 MG PO (07:27)
[2025-07-23] MEDS: Losartan 50 MG TAB 100 MG PO (07:27)
[2025-07-23] MEDS: Ziprasidone 20 MG CAP PO ×2 (07:27→20:38)
[2025-07-23] MEDS: Refresh PLUS Eye Drops 0.4ml OU ×2 (07:27→20:39)
[2025-07-23] MEDS: Carvedilol 6.25 MG TAB 12.5 MG PO ×2 (07:27→20:38)
[2025-07-23] MEDS: Acetaminophen 500 MG TAB 1000 MG PO (07:27)
[2025-07-23] MEDS: buPROPion-XL 150 MG TABCR PO (07:27)
[2025-07-23] MEDS: Normal Saline Flush 10 ML SYR IVP ×3 (07:28→20:41)
[2025-07-23] MEDS: Budesonide/Formoterol 80/4.5 6.9 GM 60 PUFF INH IH ×2 (08:29→20:12)
--- NOTE | 2025-07-23 09:01 | W.PM.PROGNOT ---
Date of Service Date of service: 07/23/25 Time of Service: 09:01 Assessment and Plan Assessment and plan (1) RLQ abdominal pain: Status: Acute Assessment and plan: Mild Diverticulitis Continue slowly increase progressing diet. Pain is slowly improving per patient report Encouraged activity OOB, ambulation and sitting in the chair for meals. Continue antibiotics, will be able to transition to PO Discussed having a follow up Colonoscopy (2) Cecal diverticulitis: Status: Acute Assessment and plan: presumed diagnosis of cecal change on CT. tracking down old colonoscopy reports. (3) Peripheral arterial disease: Status: Acute Assessment and plan: At risk for stroke. she is s/p carotid endarterectomy on R side in 2019 or 2019. Not on anticoagulation. Subjective Subjective Interval history since last seen: Arrive with Kelly sitting up in the chair, consuming her clear liquid breakfast. She reports her stomach continues to be uncomfortable, however this is improving. Exam Const General: cooperative, healthy appearing and comfortable Orientation: alert and oriented x3 Resp Effort & Inspection: normal respiratory effort, no audible wheezes and no cough GI Inspection: normal to inspection Palpation: soft, no guarding and tender Objective Last Vital Signs Temp 38 C H 07/23/25 07:13 Pulse 91 H 07/23/25 07:13 Resp 20 07/23/25 07:13 BP 140/78 07/23/25 07:13 Pulse Ox 92 07/23/25 07:13 Laboratory Results - last 24 hr 07/23/25 05:56 WBC 11.82 H RBC 3.34 L Hgb 11.4 Hct 33.0 L MCV 99 H MCH 34.1 H MCHC 34.5 RDW 11.7 Plt Count 163 MPV 10.6 Immature Gran % 0.4 Neutrophils % 78.4 Lymphocytes % 10.6 Monocytes % 8.3 Eosinophils % 2.0 Basophils % 0.3 Nucleated RBC % 0.0 Absolute Neutrophils 9.27 H Absolute Lymphocytes 1.25 Absolute Monocytes 0.98 H Absolute Eosinophils 0.24 Absolute Basophils 0.04 Sodium 141 Potassium 3.7 Chloride 106 Carbon Dioxide 23.3 Anion Gap 11.7 H BUN 10 Creatinine 1.1 H Est GFR (CKD-EPI 2020) 52.08 Glucose 84 Calcium 8.5 Total Bilirubin 0.5 AST 12 L ALT 11 L Alkaline Phosphatase 70 Total Protein 6.5 Albumin 2.8 L Time Spent with Patient Time Spent with Patient: <25 minutes Time was spent: preparing to see the patient(eg.review tests) and indepentently interpreting results
--- NOTE | 2025-07-23 09:57 | RESPIRATORY ---
Home BIPAP ResMed Aircurve 11 Auto BIPAP Max IPAP 22 Min EPAP 8 DME: [employer]
--- NOTE | 2025-07-23 10:00 | RT.EKG_ITS ---
APPROVED REPORT Exam: Resting ECG Reason for Exam: multipe QT prolonging medications Patient Location: I HR:64 bpm ECG Measurements Heart Rate 64 AXIS MN 149 P 59 QRSd 151 QRS 66 QT 452 T 19 QTc 467 Conclusion Sinus rhythm...normal P axis, V-rate 50- 99 Atrial premature complex...SV complex w/ short R-R interval Right bundle branch block...QRSd>120, terminal axis(90,270)
--- NOTE | 2025-07-23 11:04 | PDOC.CMPRO ---
Date of service: 07/23/25 Time of Service: 12:42 Care Management Progress Note Progress Note Text Progress Note Text: Kelly was awake and eating lunch when CM arrived. Per report, her diet has been advanced to regular, and she reports feeling better with this progression. Kelly was exicted about being able to eat again. The surgical team anticipates discharge home tomorrow, with plans to resume her outpatient occupational therapy services. Today, Kelly is receiving O2 via NC at 2L, which she reports is not her baseline. She noted that her daughter was able to bring in her CPAP machine from home. CM will continue to follow. Discharge Potential Discharge Needs: PCP F/U Appt Anticipated Barriers to Discharge: Medical Status Patient/Family Education Needs: Review discharge instructions, discuss Ask Me Three Transportation: Private vehicle Plan: Anticipate Kelly will be discharged home with a resumption of outpatient OT, once medically ready. She should follow up with community providers, possibly surgical team and continue per her plan of care. She will be transported home via private vehicle. CM will continue to follow. Social Determinants of Health Screening Social Determinants of health last assessed in clinic: 07/23/25 Will the Patient Participate in the Screening?: Yes Do you worry about having a steady place to live?: no Problems where you live: no known problems In the past 12 months, have you had to go without electric, gas, oil or water in your home?: no 1. Within the past 12 months, we worried whether our food would run out before we got money to buy more.: Never true 2. Within the past 12 months, the food we bought just didn't last and we didn't have money to get more.: Never true Has lack of transportation kept you from medical appointments or from doing things needed for daily living?: no Has anyone in your life made you feel unsafe or unsupported?: no How hard is it for you to pay for the very basics like food, housing, medical care, and heating? Would you say it is:: Not hard at all Do you want help finding or keeping work or a job?: I do not need or want help If for any reason you need help with day-to-day activities such as bathing, preparing meals, shopping, managing finances, etc., do you get the help you need?: I don?t need any help How often do you feel lonely or isolated from those around you?: Never Do you speak a language other than Greenlandic at home?: No Does the patient want assistance with any of the above?: No
[2025-07-23] MEDS: Aspirin 81 MG CHEW PO (11:16)
[2025-07-23 12:07] VITALS: BP 133/52; PULSE 78; RESP 18; TEMP 37.2; O2SAT 94
--- NOTE | 2025-07-23 13:24 | PHA.REVIEW2 ---
Pharmacy Admission Review Admission Clinical Review Admission Pharmacy Review: Peripheral arterial disease (Acute) Cecal diverticulitis (Acute) RLQ abdominal pain (Acute) Mass of cecum (Acute) Abnormal CT scan, liver (Acute) cocoa butter (From Preparation H) Allergy (Intermediate, Verified 07/20/25 22:30) Bleeding glycerin (From Preparation H) Allergy (Intermediate, Verified 07/20/25 22:30) Bleeding latex Allergy (Intermediate, Verified 07/20/25 22:30) Skin Rash mineral oil* (From Preparation H) Allergy (Intermediate, Verified 07/20/25 22:30) Bleeding petrolatum,white (From Preparation H) Allergy (Intermediate, Verified 07/20/25 22:30) Bleeding phenylephrine (From Preparation H) Allergy (Intermediate, Verified 07/20/25 22:30) Bleeding shark liver oil (From Preparation H) Allergy (Intermediate, Verified 07/20/25 22:30) Bleeding bismuth subsalicylate (From Kaopectate (bismuth subsalicy)) Allergy (Mild, Verified 07/20/25 22:30) Irritation/soreness lisinopril Adverse Reaction (Intermediate, Verified 07/20/25 22:30) Cough Resuscitation Status Full Code Height 5 ft 3 in Weight 72.3 kg Pharmacy Admission Review Renal Dosing Renal Dosing: BUN 10 mg/dL (7-18) 07/23/25 05:56 Creatinine 1.1 mg/dL (0.55-1.02) H 07/23/25 05:56 Medications needing adjustments: Reviewed (CrCl 41.4 mL/min, SCr decreased from 1.3) List of meds needing interventions: Current medications are okay Anticoagulation Anticoagulation: Hgb 11.4 g/dL (11.2-15.7) 07/23/25 05:56 Hct 33.0 % (36.0-46.0) L 07/23/25 05:56 Plt Count 163 10^3/uL (130-400) 07/23/25 05:56 INR 1.0 (0.9-1.1) 07/21/25 06:06 Creatinine 1.1 mg/dL (0.55-1.02) H 07/23/25 05:56 DVT Prophylaxis: Intervened (none ordered at this time, reached out to provider who is looking into it) Opiate Usage Evaluate Pain Scale/Pains Meds: Reviewed (morphine 1mg IVP q2h PRN - 0mg / 24hrs) Scheduled Bowel Reg ordered if on Opiates?: No (PRN Miralax) Relevant Labs Relevant Labs: Sodium 141 mmol/L (136-145) 07/23/25 05:56 Potassium 3.7 mmol/L (3.5-5.1) 07/23/25 05:56 Chloride 106 mmol/L (98-107) 07/23/25 05:56 Magnesium 1.8 mg/dL (1.8-2.4) 07/20/25 22:25 Electrolytes, C-Reactive P, ESR: Reviewed Cardiac Review Cardiac Review: Blood Pressure 133/52 1207 Blood Pressure 140/78 0713 Blood Pressure 117/44 0355 BP, HR, EF%: Reviewed (HR WNL, oxygen flow rate = 2) List meds needing interventions: Has orders for carvedilol 12.5mg BID and losartan 100mg daily QTc Review QTc: Reviewed (456 from 04/22/25) List meds needing interventions: Provider changed citalopram to escitalopram due to multiple QTc prolonging medications IV to PO Switch IV Medications: Reviewed (ceftriaxone, metronidazole and morphine) Home Meds Home Med List reviewed: Reviewed Relevent Home Meds Not ordered & why?: amlodipine (listed as not taking on home med list), calcium carbonate, cetirizine (PRN), vitamin D3, ferrous sulfate, Advair (substituted with Symbicort per pharmacy protocol), folic acid, hydrocortisone cream (PRN), loperamide (PRN), magnesium, multivitamin, nystatin and vitamin B2 Current Meds Current Medication Order Review: Reviewed Pharmacy Antibiotic Review Relevant Labs: WBC 11.82 10^3/uL (4.4-10.8) H 07/23/25 05:56 Temperature 37.2 C Temperature 38 C Temperature 37.6 C Comments: Patient is on metronidazole and ceftriaxone, day 3, for colitis. WBC slightly increased from 11.27.
--- NOTE | 2025-07-23 15:22 | PGE_ITS ---
Date of Service Date of service: 07/23/25 Time of Service: 15:22 Assessment and Plan Assessment and plan (1) Mass of cecum: Status: Acute Assessment and plan: In the setting of chronic IBS picture. Abdominal pain likely back to at least April given clinic record CT showing cecal mass concerning for colitis vs diverticular disease vs malignancy Appreciate general surgery input, most c/w atypical diverticulitis, clearly improving with with antibiotics, progressing diet today. EGD/colonoscopy results (04/15/2024) and GI consult from Dr. Maxwell at [facility] reviewed. Biospies negative for colitis. She did have 6mm angioectatic lesion noted in cecum then that was felt to be insignificant. Notes printed, communicated with surgery. Will observe overnight again per surgery recommendations, home with a few more days oral antibiotics 07/24 if continues to improve. (2) Abnormal CT scan, liver: Status: Acute Assessment and plan: July 20 CT abdomen/pelvis showing inferior right lobe 2.6 hypodensity Outpatient followup (3) Interstitial lung disease: Status: Chronic Assessment and plan: Based on imaging per pulmonology notes. Clinically, PFTs c/w asthma. Continue ICS/LABA, PRN duonebs (4) Essential (primary) hypertension: Status: Chronic Assessment and plan: continue carvedilol, losartan. Metoprolol was also on home list, appears to be an error. No change. (5) Depression: Assessment and plan: continue buproprion, citalopram, and ziprazodone. EKG shows QTc 467. Changed citalopram to escitalopram preferred with multiple QTc prolonging agents. (6) Peripheral vascular disease: Status: Chronic Assessment and plan: continue statin, ezetimibe. ASA also resumed at low dose as surgical procedure is not likely. (7) Chronic GERD: Status: Chronic Assessment and plan: continue PPI Subjective Subjective Patient reports: feels better, tolerating liquids well and voiding w/o difficulty; denies nausea, vomiting, shortness of breath or fever Interval history since last seen: Feels better today. pain went down from 2/10 to almost nill after eating clears, would like real food. Exam Narrative Exam Narrative: General: This is a pleasant woman in no acute distress. alert and oriented x 3 HEENT: MMM, no icterus CV: RRR with soft systolic murmur Resp: dry basilcar rales, otherwise clear Abd: soft, +NBS, minimally tender just periumbilically, no guarding or rebound. Neuro: awake, alert, no focal deficits Objective Last Vital Signs Temp 37.2 C 07/23/25 12:07 Pulse 78 07/23/25 12:07 Resp 18 07/23/25 12:07 BP 133/52 L 07/23/25 12:07 Pulse Ox 94 07/23/25 12:07 Laboratory Results - last 24 hr 07/23/25 05:56 WBC 11.82 H RBC 3.34 L Hgb 11.4 Hct 33.0 L MCV 99 H MCH 34.1 H MCHC 34.5 RDW 11.7 Plt Count 163 MPV 10.6 Immature Gran % 0.4 Neutrophils % 78.4 Lymphocytes % 10.6 Monocytes % 8.3 Eosinophils % 2.0 Basophils % 0.3 Nucleated RBC % 0.0 Absolute Neutrophils 9.27 H Absolute Lymphocytes 1.25 Absolute Monocytes 0.98 H Absolute Eosinophils 0.24 Absolute Basophils 0.04 Sodium 141 Potassium 3.7 Chloride 106 Carbon Dioxide 23.3 Anion Gap 11.7 H BUN 10 Creatinine 1.1 H Est GFR (CKD-EPI 2020) 52.08 Glucose 84 Calcium 8.5 Total Bilirubin 0.5 AST 12 L ALT 11 L Alkaline Phosphatase 70 Total Protein 6.5 Albumin 2.8 L Time Spent with Patient Time Spent with Patient: 25-34 minutes Time was spent: preparing to see the patient(eg.review tests), obtaining and/or reviewing separately otained hiistory, ordering medications,tests, procedures, referring, communicating with other health resident care technician, indepentently interpreting results, counseling the patient and care coordination
[2025-07-23 15:36] VITALS: BP 164/59; PULSE 70; RESP 12; TEMP 36.8; O2SAT 95
[2025-07-23 18:56] VITALS: BP 166/66; PULSE 93; RESP 24; TEMP 37.8; O2SAT 91
[2025-07-23] MEDS: Ezetimibe 10 MG TAB PO (20:38)
[2025-07-23] MEDS: Rosuvastatin 20 MG TAB PO (20:38)
[2025-07-23 22:25] VITALS: BP 139/53; PULSE 91; RESP 18; TEMP 36.3; O2SAT 93
[2025-07-23] MEDS: cefTRIAXone 1 GM/50 ML BAG IVPB (23:55)
[2025-07-24] MEDS: metroNIDAZOLE 500 MG/100 ML BAG 100 MG IVPB (02:12)
[2025-07-24] MEDS: Levothyroxine 50 MCG TAB PO (05:56)
[2025-07-24 06:15] VITALS: BP 149/94; PULSE 83; RESP 18; TEMP 36.2; O2SAT 93
[2025-07-24 07:54] VITALS: BP 154/66; PULSE 77; RESP 16; TEMP 36.5; O2SAT 98
[2025-07-24] MEDS: Refresh PLUS Eye Drops 0.4ml OU (08:04)
[2025-07-24] MEDS: Aspirin 81 MG CHEW PO (08:05)
[2025-07-24] MEDS: Carvedilol 6.25 MG TAB 12.5 MG PO (08:05)
[2025-07-24] MEDS: Escitalopram 10 MG TAB PO (08:05)
[2025-07-24] MEDS: Losartan 50 MG TAB 100 MG PO (08:05)
[2025-07-24] MEDS: Ziprasidone 20 MG CAP PO (08:06)
[2025-07-24] MEDS: Omeprazole 20 MG CAPCR 40 MG PO (08:06)
[2025-07-24] MEDS: buPROPion-XL 150 MG TABCR PO (08:06)
[2025-07-24] MEDS: Normal Saline Flush 10 ML SYR IVP (08:07)
[2025-07-24] MEDS: Budesonide/Formoterol 80/4.5 6.9 GM 60 PUFF INH IH (08:09)
--- NOTE | 2025-07-24 09:18 | DSE_ITS ---
Date of service: 07/24/25 Time of Service: 09:18 DS: Diagnosis Discharge Diagnosis (1) Mass of cecum: Status: Acute (2) Abnormal CT scan, liver: Status: Acute (3) Interstitial lung disease: Status: Chronic (4) Essential (primary) hypertension: Status: Chronic (5) Depression: (6) Peripheral vascular disease: Status: Deleted (7) Chronic GERD: Status: Chronic Discharge Plan Disposition Patient Disposition: Home Condition: Good Discharge Details Reason For Visit: colitis Admit Date/Time: 07/21/25 01:53 Admit Provider: Dominguez Douglas Attending Provider: Dominguez Douglas Primary Care Provider: Vanita Churchill [facility] Course Hospital Course: 74 year old woman with h/o HTN, ILD, asthma, s/p TAVR, CKD3a, and IBS who presented July 20 with RLQ abdominal pain. ED evaluation was significant for WBC of 13, creatinine 1.3 (baseline), and CT that showed cecal thickening and possible diverticulitis vs mass. She did have low grade fevers off/on. Surgery was consulted and felt this was likely atypical right sided diverticulitis, and she was treated with ceftriaxone and metronidazole. She improved steadily and her diet was advanced and her pain resolved. She was moving her bowels without pain. She was discharged on 3 more days of amoxicillin/clavulonate. She had a long history of IBS and is followed by GI in [place]. EGD/colonoscopy results (04/15/2024) and GI consult from Dr. Maxwell at [facility] reviewed. Biospies negative for colitis in 2023. She did have 6mm angioectatic lesion noted in cecum then that was felt to be insignificant. She should have follow up non-urgently with her GI clinic with endoscopy at the discretion of gastroenterology. She was noted to be on multiple QT prolonging agents with a QTc mildly prolonged in the 460s. Her citalopram was changed to escitalopram at half the dose to help moderate this. Her CT did also show a 2.6cm hypodensity in the liver. This should be followed by PCP with consideration of liver mass protocol MRI. Recommendations for Follow Up Recommended tests to be ordered by follow up provider: follow up liver imaging follow up blood pressure and urine proteinuria iron/TIBC to assess need to continue iron supplementation Home Meds and New Rx's Prescriptions: New escitalopram oxalate 10 mg Tablet 10 mg PO DAILY Qty: 90 0RF Rx Instructions: stop citalopram amoxicillin-pot clavulanate 875-125 mg tablet 1 tab PO BID 3 Days Qty: 7 0RF Continued hydrocortisone 1 % Cream 1 applic TOPICAL BID PRN (DME) nebulizers Misc MISCELLANEOUS Zyrtec 10 mg Capsule 10 mg PO DAILY PRN loperamide [Imodium A-D] 2 mg capsule 2 mg PO Q6H PRN albuterol sulfate 1.25 mg/3 mL solution for nebulization 1.25 mg inhalation QID PRN (Reason: shortness of breath or wheezing) Qty: 90 6RF magnesium 200 mg tablet 200 mg PO DAILY Patient Comments: Patient unsure of exact dosage losartan 100 mg tablet 100 mg PO DAILY 90 Days Qty: 90 3RF albuterol sulfate 90 mcg/actuation HFA aerosol inhaler 2 puff INHALATION Q4H PRN (Reason: shortness of breath or wheezing) Qty: 8.5 5RF amlodipine 10 mg tablet 10 mg PO DAILY Qty: 90 3RF ziprasidone HCl [Geodon] 20 mg capsule 20 mg PO BID Qty: 180 3RF rosuvastatin 20 mg tablet 20 mg PO HS Qty: 90 3RF omeprazole 40 mg capsule,delayed release(DR/EC) 40 mg PO DAILY Qty: 90 3RF levothyroxine 50 mcg tablet 50 mcg PO DAILY Qty: 30 0RF nystatin 100,000 unit/gram cream 1 applic Topical TID Qty: 30 3RF Rx Instructions: apply under breasts and abd fold ezetimibe [Zetia] 10 mg tablet 10 mg PO HS Qty: 90 3RF multivitamin [Daily Multi-Vitamin] 1 EACH tablet 1 tab PO DAILY aspirin 325 MG tablet 325 mg PO DAILY calcium carbonate-vitamin D3 1 EACH tablet 2 tab PO DAILY carboxymethylcellulose sodium [Refresh Tears] 30 ML drops 2 drp OU BID cholecalciferol (vitamin D3) [Vitamin D3] 400 UNIT tablet 2,000 unit PO DAILY folic acid 0.8 MG tablet 0.8 mg PO DAILY Fortifeye 1 tab PO DAILY riboflavin (vitamin B2) 400 mg tablet 400 mg PO DAILY bupropion HCl 150 mg tablet sustained-release 12 hr 150 mg PO DAILY fluticasone propion-salmeterol [Advair Diskus] 250-50 mcg/dose blister with device 1 inh inhalation BID acetaminophen 500 mg tablet 1,000 mg PO Q6H PRN carvedilol 12.5 mg tablet 12.5 mg PO BID Discontinued ferrous sulfate [iron] 325 mg (65 mg iron) Tablet 28 mg PO DAILY citalopram [Celexa] 40 mg tablet 20 mg PO DAILY Qty: 60 3RF Discharge Instructions Instructions: Diverticulitis (DC) Additional Instructions: You have a small mass in the liver. You will probably need another scan to make sure this is not cancer high fiber diet can help prevent diverticulitis in the future. Psyllium (a type of natural fiber) supplementation can be a part of this. Stand Alone Forms: Nursing Discharge Form Referrals: Vanita Churchill APRN [Primary Care Provider, [facility]] Referral Note: Please call Primary care to schedule a follow up. Activity:: Activity as Tolerated Equipment/Supplies:: No Equipment Needed Diet:: high fiber diet Discharge Orders Discharge Orders: Discharge Order (Routine); Ordered 07/24/25 Ordered By: Mega Mishra Discharge Data Discharge Date/Time-TO BE ENTERED AT DEPARTURE: 07/24/25 10:00 DS: Summary Time Spent with Patient providing and/or coordinating discharge services: Greater than 30 minutes Status at Discharge Functional status at discharge: independent ambulation Overall status at discharge: patient is back to baseline Mental Status: mental status grossly normal Speech and Movement: speech and movement normal Mood: congruent mood Affect: normal affect Exam Narrative Exam Narrative: General: This is a pleasant woman in no acute distress. alert and oriented x 3 HEENT: MMM, no icterus CV: RRR with soft systolic murmur Resp: dry rales in lower lung humphries, otherwise clear, normal effort Abd: soft, +NBS, minimally tender just periumbilically, no guarding or rebound. Psych Mental Status: mental status grossly normal Speech and Movement: speech and movement normal Mood: congruent mood Affect: normal affect DS: Data Vitals/I&O Vitals and I&O: Vital Signs Temperature 36.5 C 07/24/25 07:54 Temperature Source Temporal Artery Scan 07/24/25 07:54 Pulse 77 07/24/25 07:54 Pulse Rhythm Regular 07/21/25 02:38 Pulse 92 H 07/21/25 02:20 Respiratory Rate 16 07/24/25 07:54 Respiratory Effort Normal, Non-Labored 07/21/25 02:38 Respiratory Depth Normal 07/21/25 02:38 Respiratory Pattern Normal 07/21/25 02:38 Blood Pressure 154/66 H 07/24/25 07:54 Blood Pressure Mean 95 07/24/25 07:54 Blood Pressure Position Supine 07/20/25 22:13 Pulse Oximetry 98 07/24/25 07:54 Oxygen Delivery Method Room Air 07/24/25 07:54 Oxygen Flow Rate 0 07/24/25 07:54 Pain Level 0 07/24/25 06:15 Comment RN notified 07/23/25 18:56 Intake & Output 07/23/25 07/23/25 07/24/25 11:59 23:59 11:59 Intake Total 150 / 350 200 / 350 Output Total 1885 / 3310 1425 / 3310 Balance -1735 / -2960 -1225 / -2960 - Weight 72.3 kg 70.8 kg Intake: IV 150 / 350 200 / 350 Output: Urine 1885 / 3310 1425 / 3310 Stool Other: Urine Color Yellow Pale Yellow Urine Appearance Clear Clear Clear Urine Odor Normal None Comment did not see the amount that the pt voided Stool Size Smear Moderate Stool Characteristics Hard Formed Brown PFSH All Active Problems (Updated 07/25/25 @ 00:02 by MO MIDDLETON) Peripheral arterial disease (Acute) Cecal diverticulitis (Acute) Chronic GERD (Chronic) Mass of cecum (Acute) Abnormal CT scan, liver (Acute) Colitis (Acute) Viral URI (Acute) Laceration of flexor tendon of right [place] (Acute) Pes anserinus bursitis of left knee (Acute) Internal derangement of left knee (Acute ~09/2024) Left knee DJD (Chronic) CKD (chronic kidney disease) stage 3, GFR 30-59 ml/min (Acute) Knee pain, left (Acute) Plantar wart of left foot (Acute) Parotiditis (Acute) Interstitial lung disease (Chronic) Bronchiectasis (Acute) Asthma (Chronic) Abnormal CT scan, chest (Acute) Diverticulosis (Acute 12/06/12) Presence of prosthetic heart valve (Acute) Atherosclerosis (Acute) Pain in right shoulder (Acute) Pain, joint, shoulder, left (Acute) Dysphagia (Acute) Paresthesia (Acute) Disorder of sacrum (Acute) Pain in thoracic spine (Acute) Joint pain (Acute) Disorder of kidney and ureter (Acute) Chronic obstructive lung disease (Chronic) Carotid artery stenosis (Acute) Aortic stenosis (Chronic) HX TAVR 03/07/23 Pulmonary hypertension (Acute) Essential (primary) hypertension (Chronic) Sensorineural hearing loss (Acute) Hearing loss (Acute) Benign paroxysmal positional vertigo (Acute) Migraine (Chronic) Giant cell arteritis (Acute) Asymmetrical sensorineural hearing loss (Acute) Trochanteric bursitis, left hip (Acute) Sacroiliac joint dysfunction of left side (Acute) Sensorineural hearing loss of both ears (Acute) Imbalance (Acute) Hypothyroidism (Chronic) Hypertension (Chronic) Medical History History of transcatheter aortic valve replacement (TAVR) 03/07/23 Malaise and fatigue History of tobacco use Obesity Depression Cervicalgia Vertigo benign, postural Macular degeneration Polyarthralgia Arthritis, rheumatoid GERD (gastroesophageal reflux disease) Emphysema of lung Heart murmur Back pain CHEMA (obstructive sleep apnea) Hemorrhoids Cervical radiculopathy History of paroxysmal supraventricular tachycardia Claudication IBS (irritable bowel syndrome) Elevated creatine kinase level Hematuria Anemia Bilateral carotid artery stenosis Trochanteric bursitis of left hip Right bundle branch block Hyperlipidemia Cough Surgical History Hx of cholecystectomy Hx of appendectomy History of colonoscopy (12/06/12) History of temporal artery biopsy (~06/2023) Status post insertion of iliac artery stent Family History Mother Asthma Anxiety Depression Hypertension Maternal Aunt Cancer breast ca Father Heart disease Maternal Grandmother Diabetes Maternal Grandfather Diabetes Paternal Grandmother Diabetes Paternal Grandfather Diabetes Son Cancer leukemia Daughter Hypertension Social History Smoking/Tobacco Use Status: Former Tobacco Use Quit Date: 11/27/03 Tobacco: How many years used: 40 Smoking risk assessment performed?: Yes Alcohol Intake: current Alcohol Intake frequency: holidays/special occasions only Drug use: Never Substance use type: does not use Adopted: No Caregiver/Support person: No Foster care: Yes Household members: children Housing: house Number of Children: 3 number of grandchildren: 5 Communication Needs: Hard of Hearing Education Level: college Do you need help understanding health information?: Rarely 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 Pets and animals: Yes (4 Dogs, 2 Cats and 2 Birds) Pets and animals: cat(s), dog(s) and bird(s) Sexually active: No Do you think of yourself as: straight/heterosexual Current gender identity: female What is your relationship status?: How often do you talk on the phone with friends or family?: twice per week How often do you get together with friends or relatives?: once per week Do you belong to any clubs or organized social groups?: yes Panel score (0-1 are the most socially isolated patients): 2 What type of physical activity do you participate in: independent ambulation and bicycling Sammi/Caodaism: Scientology Special sammi needs: Yes (Last Rights) Seatbelt use: always Helmet use: No Drive intox or ride 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
--- NOTE | 2025-07-24 17:34 | PDOC.CMPRO ---
Date of service: 07/24/25 Time of Service: 10:00 Care Management Progress Note Progress Note Text Progress Note Text: Kelly was discharged home this morning before CM could meet up with her. She was discharged home today with no new services. She will f/u with her PCP and continue per her plan of care. She transported home in a private vehicle. Social Determinants of Health Screening Social Determinants of health last assessed in clinic: 07/24/25 Will the Patient Participate in the Screening?: Yes Do you worry about having a steady place to live?: no Problems where you live: no known problems In the past 12 months, have you had to go without electric, gas, oil or water in your home?: no 1. Within the past 12 months, we worried whether our food would run out before we got money to buy more.: Don't know/refused 2. Within the past 12 months, the food we bought just didn't last and we didn't have money to get more.: Don't know/refused Has lack of transportation kept you from medical appointments or from doing things needed for daily living?: no Has anyone in your life made you feel unsafe or unsupported?: no How hard is it for you to pay for the very basics like food, housing, medical care, and heating? Would you say it is:: Not hard at all Do you want help finding or keeping work or a job?: I do not need or want help If for any reason you need help with day-to-day activities such as bathing, preparing meals, shopping, managing finances, etc., do you get the help you need?: I don?t need any help How often do you feel lonely or isolated from those around you?: Never Do you speak a language other than Nepali at home?: No Does the patient want assistance with any of the above?: No
== END 2025-07-24 10:00 | disposition home or self-care (01) | DRG 392 ==
LOC: ER 07-21 02:36 → MS 07-21 02:38
PROVIDERS: Admitting Provider Family Medicine; Emergency Provider Emergency Medicine; PCP Nurse Practitioner Family; Responsible Provider Family Medicine; Visit Provider Family Medicine
DX: K57.32 Diverticulitis of large intestine without perforation or abscess without bleeding (principal); F33.1 Major depressive disorder, recurrent, moderate; J84.9 Interstitial pulmonary disease, unspecified; K63.89 Other specified diseases of intestine; R93.2 Abnormal findings on diagnostic imaging of liver and biliary tract; I73.9 Peripheral vascular disease, unspecified; Z95.2 Presence of prosthetic heart valve; I65.23 Occlusion and stenosis of bilateral carotid arteries; K21.9 Gastro-esophageal reflux disease without esophagitis; R10.31 Right lower quadrant pain; R19.7 Diarrhea, unspecified; Z95.828 Presence of other vascular implants and grafts; R59.0 Localized enlarged lymph nodes; M17.12 Unilateral primary osteoarthritis, left knee; N18.30 Chronic kidney disease, stage 3 unspecified; I12.9 Hypertensive chronic kidney disease with stage 1 through stage 4 chronic kidney disease, or unspecified chronic kidney disease; J44.9 Chronic obstructive pulmonary disease, unspecified; I27.20 Pulmonary hypertension, unspecified; G43.909 Migraine, unspecified, not intractable, without status migrainosus; H90.3 Sensorineural hearing loss, bilateral; M31.6 Other giant cell arteritis; I45.10 Unspecified right bundle-branch block; E66.9 Obesity, unspecified; M54.12 Radiculopathy, cervical region; E78.5 Hyperlipidemia, unspecified; K58.9 Irritable bowel syndrome, unspecified
CPT/HCPCS: 00123; 36415; 80053; 82805; 83690; 85027; 94640; 96361; 96365; 96367; 99222; 99231; 99285; 74177; 81003; 81015; 83605; 83735; 85025; 85610; 94664; 94760; 99232; 99238; J0696; J1836; J2270; J3490

== ENCOUNTER 2025-08-01 08:56 | Outpatient (CLI) | payer OTHER, SELFPAY ==
[2025-08-01 09:59] LABS: Anion Gap 7.3 mmol/L (3-11); BUN 17 mg/dL (7-18); CO2 28.7 mmol/L (21.0-32.0); Calcium 9.5 mg/dL (8.5-10.1); Chloride 103 mmol/L (98-107); Estimated GFR 46.91 (mL/min/1.73m2); Glucose 103 mg/dL (74-106); Potassium 4.2 mmol/L (3.5-5.1); Sodium 139 mmol/L (136-145)
== END 2025-08-01 08:57 | disposition home or self-care (01) ==
LOC: LBO 08:56
PROVIDERS: PCP Nurse Practitioner Family; Visit Provider Nurse Practitioner Family
DX: I10 Essential (primary) hypertension (principal)
CPT/HCPCS: 36415; 80048

== ENCOUNTER 2025-08-07 03:16 | Outpatient (CLI) | payer OTHER, SELFPAY ==
--- NOTE | 2025-08-07 05:45 | DI.MRI_ITS ---
Exam(s) MR UPPER EXTREMITY RT WO EXAM: MR UPPER EXTREMITY RT WO CLINICAL HISTORY: LACERATION OF FLEXOR TENDON RT HAND,S66.821A TECHNIQUE: Multiplanar multisequence MRI was performed. COMPARISON: CR XR FINGER RT LITTLE from 05/02/2025 Plain films of 05/02/2025 were reviewed. FINDINGS: MARROW/ARTICULATIONS:There is no evidence of fracture, bone contusion, nor osseous lesions and there is no marrow signal suggest osteomyelitis. There are no erosions but there is joint effusion noted in the visualized 3rd, 4th, and 5th metacarpophalangeal joints. There is also a focus of non expansile benign-appearing signal abnormality in the head of the 3rd metacarpal which is either cyst or possibly a benign enchondroma. There are no effusions evident in the interphalangeal joints of the 3rd, 4th, and 5th fingers. There are moderate degenerative changes in the distal interphalangeal joints and mild degenerative change in the proximal interphalangeal joints. No subluxations of these joints evident and collateral ligaments appear intact. TENDONS: There are foci of artifact in the region of the flex or digitorum tendon of the 5th finger related to recent surgery. When compared to the flexor tendons of the other fingers, the flex or tendon of the 5th finger appears attenuated at the level of the proximal phalanx and exhibits partial tearing at this level. There is no retraction of the flexor tendon. The extensor digitorum tendon appears intact OTHER: None. IMPRESSION: 1. There is significant thinning of the flexor digitorum tendon of the 5th finger at the level of the proximal phalanx consistent with partial tearing of this structure. Small artifacts in this region are consistent with prior surgery at this location. 2. The extensor tendon appears intact. 3. Joint effusions are noted in the metacarpophalangeal joints of all of the fingers included in the field of view of this study (3rd, 4th, and 5th fingers). DATA REPOSITORY:
--- NOTE | 2025-08-07 15:15 | DI.VRAD_ITS ---
PROCEDURE INFORMATION: Exam: MR Right Upper Extremity Other Than Joint Without Contrast; Fingers Exam date and time: 08/07/2025 9:47 AM Age: 74 years old Clinical indication: Prior surgery; Surgery date: 1-6 months; 5th digit flexor tendon repair, new problems, PT. Unable to flex finger TECHNIQUE: Imaging protocol: Magnetic resonance imaging of the right upper extremity without contrast. Exam focused on the fingers. COMPARISON: CR XR FINGER RT LITTLE 05/02/2025 4:47 PM (report not provided) FINDINGS: Bones/joints: Imaging is centered on the 5th finger. The joint spaces are normally aligned. A small effusion involves the 5th metacarpophalangeal joint. Joint fluid is otherwise within physiologic limits. There is very mild osteophyte formation about the 5th proximal and distal interphalangeal joints. The partially evaluated 3rd metacarpal head is with some cystic changes and/or enchondroma formation. The bone marrow is otherwise normal in signal. Collateral ligaments of digits: Unremarkable. No evidence of tear. Flexor compartment tendons: The 5th flexor digitorum tendon is mildly heterogeneous in signal at the levels of the proximal and middle phalanges, and there are foci of artifact in these regions which are likely postoperative in nature. The tendon appears thinned, but does not appear discontiguous at any point. Very small fluid is present in the partially included 3rd and 4th flexor digitorum tendon sheaths at the levels of the proximal phalanges, indicating minor tenosynovitis. Extensor compartment tendons: Unremarkable. No evidence of tear. Soft tissues: Very mild subcutaneous soft tissue edema is present about the 5th finger. There are foci of artifact over the palmar aspect which are probably postoperative in nature. IMPRESSION: 1. Postoperative 5th finger with the flexor digitorum mildly heterogeneous in signal and appearing thinned at the levels of the proximal and middle phalanges, without definite discontinuity at any point. The appearance could relate to postoperative change and/or partial tearing. 2. Minor 3rd and 4th flexor digitorum tenosynovitis. 3. Degenerative changes as described. 4. Small nonspecific effusion of the 5th metacarpophalangeal joint. Dictated and Authenticated by: Gregorio Ayon MD. Orderin Elizabeth Anglin MD
== END 2025-08-07 03:36 ==
PROVIDERS: PCP Nurse Practitioner Family; Visit Provider Student in an Organized Health Care Education/Training Program
DX: S66.821A Laceration of other specified muscles, fascia and tendons at wrist and hand level, right hand, initial encounter (principal); X58.XXXA Exposure to other specified factors, initial encounter
CPT/HCPCS: 73218

== ENCOUNTER 2025-08-18 07:35 | Outpatient (CLI) | payer OTHER, SELFPAY ==
[2025-08-18 08:16] LABS: Ferritin 170 ng/mL (8-252); TSH (W/Ref FT4) 3.06 uIU/mL (0.36-3.74)
[2025-08-19 15:28] LABS: Iron 70 ug/dL (50-170); Total Iron Binding Capacity 282 ug/dL (250-450); Transferrin Sat 25 % (15-50)
[2025-08-19 15:32] LABS: Calculated LDL 75 mg/dL (<100); Cholesterol 150 mg/dL (<200); HDL Cholesterol 46 mg/dL (>or=50); Triglyceride 149 mg/dL (<150)
== END 2025-08-18 07:36 | disposition home or self-care (01) ==
LOC: LBO 07:35
PROVIDERS: PCP Nurse Practitioner Family; Visit Provider Nurse Practitioner Family
DX: E03.9 Hypothyroidism, unspecified (principal); Z00.00 Encounter for general adult medical examination without abnormal findings
CPT/HCPCS: 36415; 80061; 82728; 83540; 83550; 84443

== ENCOUNTER 2025-08-19 00:39 | Outpatient (CLI) | payer OTHER, SELFPAY ==
--- NOTE | 2025-08-19 10:17 | W.NUTRFU ---
Date of service: 08/19/25 Time of Service: 09:00 Nutrition Note NOTE: Kelly referred to nutrition visit today - had questions and wanted guidance on diet and diverticulitis/osis. She was recently hospitalized the last week of June here for her first time experiencing a diverticulitis flare up. Was aware of diverticulosis and told she has multiple pouches. Wants to avoid flare ups in the future and wanted to get the right information as she was told by a family member she shouldn't eat anything red. We reviewed diet strategy for post flare up would be to continue to increase fiber to good goal of at least 25g per day - reviewed some handouts going over increasing fiber We reviewed diet strategy during flare up (if it happens again) would be low fiber (8g or less) by modifying choices temporarily - reviewed handouts for this alteration as well. We reviewed old recommendations to avoid corn, nuts and seeds etc... is not supported by evidence and high fiber foods will help transit and reduce constipation (reminded to drink water). She does have missing dentures on the bottom due to not fitting well. She avoids tough steak and such but can manage salads and other crunchy foods very well. 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 She has lost a significant amount of weight participating in [employer] and usually eats 3 meals without snacks. She complains of some chronic belching, some GI weird feelings, and recent build up of mucus she cant seem to get up easy. Suggested she discuss with provider - round of probiotics d/t recent tx wtih abx (suggested OTC culturelle as an option). Suggested a trial of throat coat tea made from slippery elm to help soothe gut irritation and constipation and to talk with ashley about n-acetylcysteine for the heavy mucus. Reviewed balanced diet and keeping moving. She has my contact info should she have more questions or need more resources Time Spent in Nutritional Counseling and Treatment: 25 min
== END 2025-08-19 00:40 | disposition home or self-care (01) ==
LOC: DS 00:39
PROVIDERS: PCP Nurse Practitioner Family; Visit Provider Dietitian, Registered
DX: K57.32 Diverticulitis of large intestine without perforation or abscess without bleeding (principal); K52.9 Noninfective gastroenteritis and colitis, unspecified
CPT/HCPCS: 00123; 97802

== ENCOUNTER 2025-09-02 01:13 | Outpatient (CLI) | payer OTHER, SELFPAY ==
--- NOTE | 2025-09-02 06:00 | DI.MRI_ITS ---
Exam(s) MR ABDOMEN WO/W EXAM: MR ABDOMEN WO/W CLINICAL HISTORY: f/u abln ct scan of liver,r93.2,? focal fatty infiltration TECHNIQUE: Multiplanar multisequence MRI of the Abdomen was performed. CONTRAST MATERIAL: IV Contrast: 14 mL of Dotarem contrast administered. COMPARISON: CT CT ABDOMEN PELVIS W from 07/20/2025 FINDINGS: Lung bases: Unremarkable. Liver: There is no evidence of a hepatic mass. The area of concern likely reflected focal fatty infiltration. The liver is unremarkable. Pancreas: Unremarkable. Gallbladder and Bile Ducts: The patient is status post cholecystectomy. There is no significant biliary ductal dilatation. Common duct is 7 mm. Adrenals: Unremarkable. Kidneys: The left kidney is atrophic. There are bilateral simple renal cysts. No follow-up is recommended. No suspicious renal masses are present. There is no hydronephrosis. Spleen: Unremarkable. Bowel: There is limited visualization of the bowel. Note is made of colonic diverticulosis. Aorta: Unremarkable. Soft Tissues: Unremarkable. Bone: Within normal limits for the patient's age. Multilevel degenerative changes are present. Lymph Nodes: Unremarkable. IMPRESSION: 1. There is no evidence of a hepatic mass. 2. Bilateral renal cysts. No follow-up is recommended. 3. Status post cholecystectomy. 4. Marked left renal atrophy. DATA REPOSITORY:
[2025-09-02] MEDS: Gadoterate meglumine 20 ML VIAL IVP (08:32)
[2025-09-02] MEDS: Normal Saline - Diluent 50 ML VIAL IJ (08:33)
== END 2025-09-02 01:33 ==
LOC: DI 01:13
PROVIDERS: PCP Nurse Practitioner Family; Visit Provider Nurse Practitioner Family
DX: R93.2 Abnormal findings on diagnostic imaging of liver and biliary tract (principal); N28.1 Cyst of kidney, acquired
CPT/HCPCS: 74183

== ENCOUNTER 2025-09-17 01:10 | Outpatient (CLI) | payer OTHER, SELFPAY ==
--- NOTE | 2025-09-17 07:45 | DI.DEXA_ITS ---
Exam(s) XR DEXA BONE DENSITY W/WO PAGE EXAM: XR DEXA BONE DENSITY W/WO PAGE CLINICAL HISTORY: SCREENING FOR OSTEOPOROSIS, ASYMPTOMATIC POSTMENOPAUSAL STATE,Z78.0 TECHNIQUE: Holo[employer] Horizon C densitometer analysis of left hip, lumbar spine and left forearm. Lateral survey image of the thoracic and lumbar spine. COMPARISON: DX DEXA BONE DENSITY WITH PAGE from 09/08/2010 CR XR DEXA BONE DENSITY W/WO PAGE from 06/17/2021 DEXA bone density 03/07/2005 FINDINGS: Lateral view of the thoracic and lumbar spine shows no evidence of compression fractures. Bone mineral density measurements of the lumbar spine correspond to a total T- score of 0.7, in the normal range. This is not significantly changed from 2020 represents a 16.3 percent increase from 2004. The findings could in part be secondary to worsening of degenerative changes with endplate osteophytes and sclerosis. Bone mineral density measurements of the left hip correspond to a total T-score of -1.1. This represents a 5.7 percent decrease from 2020 and no significant change from 2004. The femoral neck T-score is -1.3, in the osteopenic range. Theleft forearm bone mineral density measurements correspond to a T-score of the distal 3rd of -1.8, in the osteopenic range. This is a 4 percent increase from 2020 but a 5.6 percent decrease from 15/09. Forearm was not analyzed in 2004.. IMPRESSION: Normal bone mineral density of the spine . Osteopenia of the hip and forearm.
--- NOTE | 2025-09-17 07:45 | DI.MAMMO_ITS ---
Exam(s) MAMMO SCREENING EXAM: MAMMO SCREENING CLINICAL HISTORY: screening,Z12.39 TECHNIQUE: Bilateral full field digital CC and MLO mammographic images were obtained with 3D tomosynthesis and utilizing computer aided detection (CAD). COMPARISON: Comparison is made with prior examinations. FINDINGS: Masses/Architectural Distortion: No suspicious masses or areas of architectural distortion are present. Microcalcifications: No suspicious pleomorphic-type are seen. Skin Thickening/Nipple Retraction: None. IMPRESSION: 1. No significant interval change with no specific features of malignancy noted. 2. Unless there is more urgent need, screening mammography is recommended, as per [place] [employer] guidelines. BI-RADS Category 1 - Negative Breast Density - Category B - There are scattered areas of fibroglandular density. Breast density Category C or D implies that the patient has dense breast tissue. Dense breast tissue can make it harder to find cancer on a mammogram. Dense breast tissue is also associated with an increased risk of breast cancer. This information about the result of the mammogram report was provided to the patient to raise their awareness. Use this report when you speak with the patient about their risks for breast cancer, which includes their family history. At that time, you may recommend additional screening tests (Ultrasound or MRI) as these tests may add significant information. A negative radiographic report should not delay biopsy if a dominant or clinically suspicious mass is present. Up to ten percent of cancers are not identified on mammography. A negative report may reinforce clinical impression. Adenosis and dense breasts may obscure an underlying neoplasm. False positive reports average 6 to 10%. Patient will receive a letter notifying them of these results.
== END 2025-09-17 01:30 ==
LOC: DI 01:10
PROVIDERS: PCP Nurse Practitioner Family; Visit Provider Nurse Practitioner Family
DX: Z12.31 Encounter for screening mammogram for malignant neoplasm of breast (principal); Z78.0 Asymptomatic menopausal state; Z13.820 Encounter for screening for osteoporosis; M85.89 Other specified disorders of bone density and structure, multiple sites
CPT/HCPCS: 77063; 77067; 77080

== ENCOUNTER 2025-10-17 00:22 | Outpatient (CLI) | payer OTHER, SELFPAY ==
[2025-10-17 10:36] LABS: Abs Immature Grans 0.04 10^3/uL (0.0-0.06); HCT 38.4 % (36.0-46.0); HGB 12.8 g/dL (11.2-15.7); Immature Grans % 0.4 %; MCH 31.8 pg (27.0-33.0); MCHC 33.3 % (32.0-36.0); MCV 96 fL (80-95); MPV 9.6 fL (8.0-11.0); Platelet Count 287 10^3/uL (130-400); RBC 4.02 10^6/uL (3.93-5.22); RDW 12.3 % (11.7-14.6); RDW-SD 42.6 fL; WBC 9.60 10^3/uL (4.4-10.8)
[2025-10-17 11:50] LABS: ALT 10 U/L (10-49); AST 18 U/L (<34); Albumin 4.3 g/dL (3.4-5.0); Alkaline Phosphatase 90 U/L (46-116); Bilirubin, Direct 0.2 mg/dL (<=0.3); Bilirubin, Total 0.60 mg/dL (0.2-1.2); Total Protein 7.7 g/dL (5.7-8.2)
[2025-10-17 11:51] LABS: Vitamin B12 1267 pg/mL (211-911)
[2025-10-17 11:58] LABS: Folate > 24.0 ng/mL (>5.38)
[2025-10-17 13:55] LABS: Hemoglobin A1C 5.2 % (<5.7)
== END 2025-10-17 00:23 | disposition home or self-care (01) ==
LOC: LBO 00:22
PROVIDERS: PCP Nurse Practitioner Family; Referring Provider Nurse Practitioner Family; Visit Provider Nurse Practitioner Family
DX: R41.3 Other amnesia (principal)
CPT/HCPCS: 36415; 80076; 82607; 82746; 83036; 85025